=== PATIENT | female | born 1960 | race Caucasian/White ===

== ENCOUNTER 2016-05-24 04:51 | Inpatient (IN) | payer OTHER ==
[~2016-05-24] VITALS: Ht 165.1 cm; Wt 93.2 kg
[~2016-05-24 04:51] MED LIST: ALBINS NEB; ASPCH81X PO; CALCTAB7 PO; CYAN100020 PO; DAPT500I IV; DEXT1TAB50 PO; FERR1TAB13 PO; FLUT0.0529 NAE; FLV1 PO; FSMD/70 PO; INSUINJ14 SC; LCTX PO; LPR25 PO; MAGN1CAP2 PO; MULTTAB58 PO; OXGN; PANT1TAB48 PO; PRED10TA PO; SYMIN160 INH
[2016-05-24] MEDS ORDERED: ONDANSETRON INJ 2 MG/ML 2 ML VIAL IV STA (05:05)
[2016-05-24] MEDS ORDERED: SODIUM CHLORIDE 0.9% 1000ML 1,000 ML IV STA (05:05)
[2016-05-24] MEDS ORDERED: MoRPHine SULFATE 10 MG/ML CARP/VIAL IV STA (05:05)
--- NOTE | 2016-05-24 05:08 | EMERGENCY ROOM VISIT NOTE ---
History Report prepared by Alvaro: Chaz Kaur Under the Supervision of: Dr. Juan A Greer M.D. First contact with patient: 04:58 Chief Complaint: ABDOMINAL PAIN Stated Complaint: LOW GRADE FEVER, TROUBLE BREATHING, PAIN LWR R ABD Nursing Triage Summary: Patient c/o RLQ abdominal pain that began yesterday. Associates nausea. History of Present Illness The patient is a 55 year old female who presents to the Emergency Room with complaints of right sided abdominal pain that began 1 week ago. She rates her pain an 8/10 in severity. The patient states that she has been feeling "lousy" since then. She notes that her lungs have been doing relatively well. She has been experiencing some mild fevers along with the abdominal pain. She takes Prednisone 10 mg PO everyday. Her pain worsens with movement. She is not taking anything for the pain. She denies any rash and urinary symptoms. She has a past medical history of a cholecystectomy and hysterectomy. Source of History: patient Onset: 1 week ago Position: abdomen (RLQ) Symptom Intensity: 8/10 Quality: sharp Timing: constant Modifying Factors (Worsening): movement Associated Symptoms: + fevers, No rash, No urinary symptoms Review of Systems See HPI for pertinent positives & negatives. A total of 10 systems reviewed and were otherwise negative. 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 (16) Tachycardia Surgical Problems: (1) H/O atrial septal defect repair (2) H/O: hysterectomy (3) History of hysterectomy (4) History of myringotomy (5) Hx of appendectomy (6) Hx of cholecystectomy (7) Hx of tympanostomy tubes (8) S/P bronchoscopy (9) S/P sinus surgery (10) S/P tonsillectomy and adenoidectomy Family History Cancer Diabetes mellitus Gallbladder disease Heart disease Hypertension Kidney disease Kidney stones Lung disease Social History Smoking Status: Never Smoker Smokeless Tobacco Use: No Alcohol Use: none Drug Use: none Marital Status: single Current/Historical Medications Scheduled Albuterol Sulf (Albuterol Sulfate), 3 ML NEB DAILY Alendronate/Cholecalciferol (Fosamax+D 70MG/2800 Iu), 1 TABLET PO WK Aspirin (Aspirin Chewable), 81 MG PO QAM Calcium Carbonate-Vitamin D W/ (Caltrate 600 Plus), 1 TAB PO BID Cyanocobalamin (Vitamin B12), 1,000 MCG PO DAILY Ferrous Sulfate (Ferrous Sulfate), 325 MG PO DAILY Fluticasone Propionate (Nasal) (Flonase Allergy Relief), 2 SPRY ESPERANZA QAM Folic Acid (Folic Acid), 1 TAB PO QAM Insulin Aspart (Novolog Penfill), SQ AC Magnesium Oxide (Mg Supplement (Magnesium), 400 MG PO DAILY Metoprolol Tartrate (Lopressor), 50 MG PO BID Multiple Vitamin (Multivitamin), 1 TAB PO QAM Oxygen (Oxygen), 4 LITERS NA DAILY Pantoprazole (Protonix), 40 MG PO QAM Prednisone Tab (Prednisone), 10 MG PO DAILY Scheduled PRN Dextromethorphan-Guaifenesin (Mucinex Dm Maximum Streng), 1 TAB PO BID PRN for Nasal Congestion Allergies Coded Allergies: Albuterol (Verified Allergy, Mild, CHEST PAIN, 02/23/16) TOLERATE LEVALBUTEROL 04/2015 Physical Exam Vital Signs Date Time Temp Pulse Resp B/P Pulse Ox O2 Delivery O2 Flow Rate FiO2 05/24/16 07:26 83 18 110/75 94 Nasal Cannula 3.0 05/24/16 06:31 91 22 158/60 94 Nasal Cannula 3.0 05/24/16 05:58 94 18 124/88 94 Nasal Cannula 3.0 05/24/16 04:56 37.0 110 18 136/78 93 Room Air 3.0 Physical Exam GENERAL: Patient is uncomfortable appearing and in moderate acute distress. HEENT: No acute trauma, normocephalic atraumatic, mucous membranes moist, no nasal congestion, no scleral icterus. NECK: No stridor, no adenopathy, no meningismus, trachea is midline. LUNGS: Diffuse mild wheezing. Mild dyspnea (she states this is chronic). HEART: Mildly tachycardic and normal rhythm. No murmurs, rubs, gallops appreciated. ABDOMEN: Soft, tenderness to palpation over the RLQ, bowel sounds positive, no masses appreciated, no peritonitis. BACK: No midline tenderness, no CVA tenderness EXTREMITIES: Normal motion all extremities, no cyanosis, no edema. NEUROLOGIC: Alert and oriented, no acute motor or sensory deficits, no focal weakness, cranial nerves grossly intact. SKIN: No rash, no jaundice, no diaphoresis. Medical Decision & Procedures ER Provider Diagnostic Interpretation: Radiology results are stated below per my review and radiologist interpretation: 1 View Portable Chest X-Ray: Diffuse interstitial lung disease similar to previous lung x-rays, no acute lung infiltrate or effusion noted, cardiac border similar to previous. Medi port in right upper chest and sternotomy wires. Per fl CT ABDOMEN & PELVIS: Tree-in-bud opacities are seen within the lower lungs with bronchiectasis within the visualized right middle love and lingula. Findings likely represent an inflammatory/infection process to include MAURICIO. The gallbladder is surgically absent. Low attenuation of the liver suggesting hepatic steatosis. The spleen, pancreas, and adrenal glands are unremarkable. Probable simple cysts within both kidneys. No hydronephrosis. The uterus is surgically absent. No adnexal masses. The appendix is unremarkable. Noninflamed colonic diverticulosis. No free fluid. No free air. No acute osseous abnormality. Radiologist: Josef Abel MD Laboratory Results Test 05/24/16 05:20 05/24/16 05:28 05/24/16 05:34 05/24/16 06:37 Immature Granulocyte % (Auto) 0.3 % White Blood Count 16.42 K/uL (4.8-10.8) Red Blood Count 3.97 M/uL (4.2-5.4) Hemoglobin 11.6 g/dL (12.0-16.0) Hematocrit 34.6 % (37-47) Mean Corpuscular Volume 87.2 fL (80-100) Mean Corpuscular Hemoglobin 29.2 pg (25-34) Mean Corpuscular Hemoglobin Concent 33.5 g/dl (32-36) Platelet Count 251 K/uL (130-400) Mean Platelet Volume 9.4 fL (7.4-10.4) Neutrophils (%) (Auto) 85.3 % Lymphocytes (%) (Auto) 9.9 % Monocytes (%) (Auto) 3.7 % Eosinophils (%) (Auto) 0.7 % Basophils (%) (Auto) 0.1 % Neutrophils # (Auto) 14.01 K/uL (1.4-6.5) Lymphocytes # (Auto) 1.62 K/uL (1.2-3.4) Monocytes # (Auto) 0.61 K/uL (0.11-0.59) Eosinophils # (Auto) 0.11 K/uL (0-0.5) Basophils # (Auto) 0.02 K/uL (0-0.2) Immature Granulocyte # (Auto) 0.05 K/uL (0.00-0.02) Magnesium Level 1.9 mg/dl (1.8-2.4) Total Bilirubin 0.9 mg/dl (0.2-1) Direct Bilirubin 0.2 mg/dl (0-0.2) Aspartate Amino Transf (AST/SGOT) 17 U/L (15-37) Alanine Aminotransferase (ALT/SGPT) 31 U/L (12-78) Alkaline Phosphatase 70 U/L (45-117) Troponin I < 0.015 ng/ml (0-0.045) Total Protein 8.2 gm/dl (6.4-8.2) Albumin 3.3 gm/dl (3.4-5.0) Lipase 196 U/L (73-393) Bedside Hemoglobin 13.3 g/dl (12.0-16.0) Bedside Hematocrit 39 % (37-47) Bedside Sodium 133 mEq/L (135-144) Bedside Potassium 4.4 mEq/L (3.3-5.0) Bedside Chloride 96 mEq/L (101-112) Bedside Total CO2 26 mEq/l (24-31) Bedside Blood Urea Nitrogen 13 mg/dl (7-18) Bedside Creatinine 0.7 mg/dl (0.6-1.3) Bedside Glucose (other) 292 mg/dl (70-99) Bedside Ionized Calcium (Dwayne) 1.29 mmol/l (1.12-1.32) Bedside Lactic Acid Venous 2.08 mmol/L (0.90-1.70) Urine Color YELLOW Urine Appearance CLEAR (CLEAR) Urine pH 5.5 (4.5-7.5) Urine Specific [place] 1.010 (1.000-1.030) Urine Protein NEG (NEG) Urine Glucose (UA) NEG (NEG) Urine Ketones NEG (NEG) Urine Occult Blood TRACE (NEG) Urine Nitrite NEG (NEG) Urine Bilirubin NEG (NEG) Urine Urobilinogen NEG (NEG) Urine Leukocyte Esterase NEG (NEG) Urine RBC 0-4 /hpf (0-4) Urine WBC 1-5 /hpf (0-5) Urine Epithelial Cells >30 /lpf (0-5) Urine Bacteria NEG (NEG) Urine Hyaline Casts 5-10 /lpf (0-5) Urine Mucus PRESENT (NONE PRSENT) Laboratory results as reviewed by me. Medications Administered Medications (Trade) Dose Ordered Sig/Man Route Start Time Stop Time Status Last Admin Dose Admin Morphine Sulfate (MoRPHine SULFATE INJ) 6 mg NOW STAT IV 05/24/16 05:05 05/24/16 05:08 DC 05/24/16 05:32 6 MG Ondansetron HCl 4 mg 4 mg NOW STAT IV 05/24/16 05:05 05/24/16 05:08 DC 05/24/16 05:32 4 MG Sodium Chloride 1,000 ml @ 75 mls/hr [id number] STAT IV 05/24/16 05:05 05/24/16 09:24 DC 05/24/16 05:33 75 MLS/HR Sodium Chloride 500 ml @ 999 mls/hr Q31M STAT IV 05/24/16 05:46 05/24/16 06:16 DC 05/24/16 05:46 999 MLS/HR Vancomycin HCl/ Sodium Chloride (Vancomycin Inj/ Nss 500ml) 530 ml @ 200 mls/hr ONE STAT IV 05/24/16 06:19 05/24/16 08:57 DC 05/24/16 07:26 200 MLS/HR Piperacillin Sod/ Tazobactam Sod (Zosyn Iv) 4.5 gm NOW STAT IV 05/24/16 06:19 05/24/16 06:20 DC 05/24/16 06:29 4.5 GM ED Course 0458: The patient was evaluated in room A10. A complete history and physical exam was performed. 0505: Sodium Chloride 1000 ml @ 75 mls/hr IV, Zofran Inj 4 mg IV, Morphine Sulfate 6 mg IV 0546: Sodium Chloride 500 ml @ 999 mls/hr IV 0610: The patient is feeling better at this time. 0619: Zosyn Iv 4.5 gm IV, Vancomycin HCl 1,500 mg/Sodium Chloride 530 ml @ 200 mls/hr IV 0630: Upon reevaluation, the patient is resting. Discussed results and treatment plan with the patient. She verbalized understanding and agreement with the treatment plan. The patient will be evaluated by Dr. Ritesh Grimes for further management. Medical Decision Differential: Appendicitis, , MSK, Diverticulitis, UTI, Renal Colic, Bowel Obstruction, Aortic Pathology, amongst other pathologies entertained. 55 yr old female with chronic lung disease on NC and prednisone, DMII, HTN, immunodeficiency on monthly IVIG. She has multiple previous admissions for lung disease though today main issue is fever, fatigue and RLQ pain associated with nausea. Quite TTP on exam in RLQ thus felt with her history CT abdo/pelv warranted. Labs consistent with acute infection, and possibly early sepsis ( though good BP here). Given IV fluids, along with pain/nausea meds with vast improvement in discomfort. She is stable though continues to have RLQ TTP. No respiratory distress and lung exam is not very much remarkable. CXR similar to previous imaging. She does have port which just 2 months ago was replaced after line sepsis. CT has normal appendix, however there does appear to be bilateral lower lobe infiltrates which given fevers, wbc elevation, lactic acidosis will need to be treated aggressively with abx. She furthermore is immunocompromised thus I do not feel outpatient treatment reasonable at this time. Was given fluid bolus, but with history and good vitals will hold on full 30ml/kg nss bolus to avoid risk fluid overload. Will bring in to hospitalist service for further evaluation. Consults Time Called: 623 Consulting Physician: Dr. Ritesh Grimes Returned Call: 0630 They will be evaluating the patient for further management. Impression Primary Impression: PNA (pneumonia) Additional Impressions: Sepsis Immunocompromised Scribe Attestation The scribe's documentation has been prepared under my direction and personally reviewed by me in its entirety. I confirm that the note above accurately reflects all work, treatment, procedures, and medical decision making performed by me. Departure Information Dispostion Being Evaluated By Surgeon Ivonne Rodríguez (PCP) Patient Instructions My [facility] Problem Qualifiers Primary Impression: PNA (pneumonia) Pneumonia type: due to unspecified organism Laterality: bilateral Lung location: lower lobe of lung Qualified Codes: J18.9 - Pneumonia, unspecified organism Additional Impressions: Sepsis Sepsis type: sepsis due to unspecified organism Qualified Codes: A41.9 - Sepsis, unspecified organism
[2016-05-24] MEDS ORDERED: OPTIRAY 320 IV PRN (05:15)
[2016-05-24 05:40] LABS: ISTAT CREATININE 0.7 mg/dl (0.6-1.3); ISTAT HEMOGLOBIN 13.3 g/dl (12.0-16.0); ISTAT IONIZED CALCIUM 1.29 mmol/l (1.12-1.32)
[2016-05-24 05:43] LABS: BASO % 0.1 %; BASO ABS # 0.02 K/uL (0-0.2); COMPLETE YES; EOS % 0.7 %; HEMATOCRIT 34.6 % (37-47); IG% 0.3 %; LYMPH % 9.9 %; LYMPH ABS # 1.62 K/uL (1.2-3.4); MEAN CELL VOLUME 87.2 fL (80-100); MEAN CORPUSCULAR HEMOGLOBIN 29.2 pg (25-34); MEAN CORPUSCULAR HGB CONC 33.5 g/dl (32-36); MEAN PLATELET VOLUME 9.4 fL (7.4-10.4); MONO % 3.7 %; NEUT % 85.3 %; PLATELET COUNT 251 K/uL (130-400); RED BLOOD COUNT 3.97 M/uL (4.2-5.4); WHITE BLOOD COUNT 16.42 K/uL (4.8-10.8)
[2016-05-24] MEDS ORDERED: SODIUM CHLORIDE 0.9% 500ML 500 ML IV STA (05:46)
[2016-05-24 06:01] LABS: ALT/SGPT 31 U/L (12-78); AST/SGOT 17 U/L (15-37); BLOOD UREA NITROGEN 12 mg/dl (7-18); CALCIUM 10.2 mg/dl (8.5-10.1); CARBON DIOXIDE 28 mmol/L (21-32); CHLORIDE 95 mmol/L (98-107); CREATININE 0.95 mg/dl (0.60-1.20); GLUCOSE 262 mg/dl (70-99); MAGNESIUM 1.9 mg/dl (1.8-2.4); POTASSIUM 4.3 mmol/L (3.5-5.1); SODIUM 134 mmol/L (136-145)
[2016-05-24 06:06] LABS: ALKALINE PHOSPHATASE 70 U/L (45-117)
[2016-05-24] MEDS ORDERED: PIPERACILLIN/TAZOBACTAM 4.5 GM/100ML D5W IV STA (06:19)
[2016-05-24] MEDS ORDERED: VANCOMYCIN INJ 1,500 MG in SODIUM CHLORIDE 0.9% 500ML 500 ML IV STA (06:19)
[2016-05-24] MEDS ORDERED: FRRS300 PO (06:41)
[2016-05-24] MEDS ORDERED: FLUT0.15 NAE (06:41)
[2016-05-24] MEDS ORDERED: INSU1INJ2 SQ (06:42)
--- NOTE | 2016-05-24 06:46 | DIAGNOSTIC IMAGING REPORT ---
ABDOMEN AND PELVIS CT WITH IV CONTRAST CT DOSE: 755.50 mGy.cm HISTORY: Dyspnea RLQ abdominal pain, fever, nausea TECHNIQUE: Multiaxial CT images of the abdomen and pelvis were performed following the use of intravenous contrast. COMPARISON STUDY: None. FINDINGS: Lung bases are remarkable for bibasilar atelectatic as well as bronchiectatic change. Fatty infiltration of liver is noted. Prior cholecystectomy. Kidneys negative for hydronephrosis. Spleen is unremarkable. Pancreas is uniform. Bowel pattern overall is nonobstructive. Kidneys negative for hydronephrosis. Several small cortical cysts. Bowel pattern is nonobstructive. Bladder is midline. IMPRESSION: Bibasilar atelectatic and bronchiectatic change. Fatty infiltration of liver. Otherwise negative study status post cholecystectomy Electronically signed by: Santosh Diaz M.D. 05/24/2016 6:44 AM Dictated Date/Time: 05/24/2016 6:38 AM
--- NOTE | 2016-05-24 06:47 | DIAGNOSTIC IMAGING REPORT ---
CHEST ONE VIEW PORTABLE CLINICAL HISTORY: fever, cough dyspnea COMPARISON STUDY: 02/24/2016 FINDINGS: Interstitial parenchymal infiltrative change bilaterally. Central catheter is in superior vena cava. Median sternotomy. Diaphragms are smooth. IMPRESSION: Interval development of bilateral parenchymal infiltrative change versus nonspecific interstitial pulmonary edema Electronically signed by: Santosh Diaz M.D. 05/24/2016 6:46 AM Dictated Date/Time: 05/24/2016 6:45 AM
[2016-05-24 06:50] LABS: MANUAL MICROSCOPIC REQUIRED? YES; URINE APPEARANCE CLEAR (CLEAR); URINE BILIRUBIN NEG (NEG); URINE COLOR YELLOW; URINE NITRITE NEG (NEG); URINE PH 5.5 (4.5-7.5); UROBILINOGEN NEG (NEG)
[2016-05-24 07:00] LABS: REVIEW REQ? NO
[2016-05-24 07:11] LABS: URINE BACTERIA NEG (NEG); URINE MUCUS PRESENT (NONE PRSENT); URINE RBC 0-4 /hpf (0-4)
[2016-05-24 07:12] LABS: ZZUR CULT IF INDIC CLEAN CATCH NO
[2016-05-24] MEDS ORDERED: ACETAMINOPHEN 325 MG TAB PO PRN (08:00)
[2016-05-24] MEDS ORDERED: MAGNESIUM HYDROXIDE SUSP 30 ML UDC PO PRN (08:00)
[2016-05-24] MEDS ORDERED: DEXTROMETHORPHAN POLYMR COMPLX 60 MG/10 ML UDP PO PRN (08:00)
[2016-05-24] MEDS ORDERED: ONDANSETRON INJ 2 MG/ML 2 ML VIAL IV PRN (08:00)
[2016-05-24] MEDS ORDERED: POLYETHYLENE (MIRALAX) 17 GM PACK PO PRN (08:00)
[2016-05-24] MEDS ORDERED: SODIUM CHLORIDE 0.9% 1000ML 1,000 ML IV SCH (09:00)
[2016-05-24] MEDS ORDERED: DEXTROSE 50% 50 ML SYR IV PRN (09:00)
[2016-05-24] MEDS ORDERED: GLUCOSE 10 TABS/TUBE PO PRN (09:00)
[2016-05-24] MEDS ORDERED: GLUCAGON FOR INJ 1 MG VIAL SQ PRN (09:00)
[2016-05-24] MEDS ORDERED: GLUCOSE 40% GEL 15 GM TUBE PO PRN (09:00)
--- NOTE | 2016-05-24 09:26 | History and Physical ---
History & Physical Date & Time of Service: May 24, 2016 at 09:02 Chief Complaint: Low Grade Fever, Trouble Breathing, Pain Lwr R Abd Primary Care Physician: Ivonne Subramanian History of Present Illness Source: patient This is a 55 y/o female with PMHx of idiopathic bronchiectasis on chronic O2 and prednisone, steroid-induced DM 2, HTN, Depression and other problems as outlined below who presents to the ED c/o abdominal pain that began last night. Pt reports that she has been feeling "lousy" for the past week and last night she developed abdominal pain that she describes as 8/10 waxing and waning RLQ pain that does not radiate anywhere. Pain is better with sitting and worse with laying flat. Sxs are assoc with fatigue, low grade fever (99*F) and nausea. Pt has never had sxs like this before. She states her gallbladder was removed but she still has her appendix. Pt has h/o severe bronchiectasis with h/o multiple bronchoscopies. She is on chronic prednisone and 3L O2 at home. She feels that her respiratory status is stable. He chronic cough and exertional SOB is at her baseline. Pt follows with pulmonology, Dr. Lang, regularly. Pt currently lives alone with daughter living nearby. Pt denies chest pain, worsening SOB or cough, wheezing, vomiting, bowel or bladder issues, LE edema, calf pain, lightheadedness/dizziness. Pt denies In the ED, pt was tachycardic on arrival. She is saturating well on 3L O2. Pt is afebrile with leukocytosis>16k. POC lactic acid 2.06. CT abd/pelvis + bibasilar atelectasis. Pt is stable and will be admitted for further evaluation and treatment. Past Medical/Surgical History Medical Problems: (1) Anxiety Status: Chronic (2) Asthma Status: Chronic (3) Chronic respiratory failure Status: Chronic (4) COPD exacerbation Status: Resolved (5) Depression Status: Chronic (6) Diabetes Status: Chronic (7) Emphysema Status: Resolved (8) GERD (gastroesophageal reflux disease) Status: Chronic (9) Hyperlipidemia Status: Chronic (10) Idiopathic bronchiectasis Status: Chronic (11) Mild pulmonary hypertension Status: Chronic (12) BILL (obstructive sleep apnea) Status: Chronic (13) Oxygen dependent Permanent Comment: 2L Status: Chronic (14) Pneumonia Status: Resolved (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 Status: Chronic (16) Tachycardia Status: Chronic Surgical Problems: (1) H/O atrial septal defect repair Status: Resolved (2) H/O: hysterectomy Status: Resolved (3) History of hysterectomy Status: Resolved (4) History of myringotomy Status: Resolved (5) Hx of appendectomy Status: Resolved (6) Hx of cholecystectomy Status: Resolved (7) Hx of tympanostomy tubes Status: Resolved (8) S/P bronchoscopy Status: Resolved (9) S/P sinus surgery Status: Resolved (10) S/P tonsillectomy and adenoidectomy Status: Resolved Family History Cancer Diabetes mellitus Gallbladder disease Heart disease Hypertension Kidney disease Kidney stones Lung disease Social History Smoking Status: Never Smoker Smokeless Tobacco Use: No Alcohol Use: none Drug Use: none Marital Status: single Housing status: lives alone Immunizations History of Influenza Vaccine: Yes Influenza Vaccine Date: Mar 14, 2015 History of Tetanus Vaccine?: Yes Tetanus Immunization Date: Jun 16, 2010 History of Pneumococcal: Yes Pneumococcal Date: Sep 22, 2010 History of Hepatitis B Vaccine: Unknown Multi-Drug Resistant Organisms History of MDRO: No Allergies Coded Allergies: Albuterol (Verified Allergy, Mild, CHEST PAIN, 02/23/16) TOLERATE LEVALBUTEROL 04/2015 Home Medications Scheduled Albuterol Sulf (Albuterol Sulfate), 3 ML NEB DAILY Alendronate/Cholecalciferol (Fosamax+D 70MG/2800 Iu), 1 TABLET PO WK Aspirin (Aspirin Chewable), 81 MG PO QAM Calcium Carbonate-Vitamin D W/ (Caltrate 600 Plus), 1 TAB PO BID Cyanocobalamin (Vitamin B12), 1,000 MCG PO DAILY Ferrous Sulfate (Ferrous Sulfate), 325 MG PO DAILY Fluticasone Propionate (Nasal) (Flonase Allergy Relief), 2 SPRY ESPERANZA QAM Folic Acid (Folic Acid), 1 TAB PO QAM Insulin Aspart (Novolog Penfill), SQ AC Magnesium Oxide (Mg Supplement (Magnesium), 400 MG PO DAILY Metoprolol Tartrate (Lopressor), 50 MG PO BID Multiple Vitamin (Multivitamin), 1 TAB PO QAM Oxygen (Oxygen), 4 LITERS NA DAILY Pantoprazole (Protonix), 40 MG PO QAM Prednisone Tab (Prednisone), 10 MG PO DAILY Scheduled PRN Dextromethorphan-Guaifenesin (Mucinex Dm Maximum Streng), 1 TAB PO BID PRN for Nasal Congestion Review of Systems Constitutional: + fatigue, + fever (low grade), No chills, No sweats, No weakness Eyes: No worsening of vision ENT: No hearing loss Respiratory: + cough (at baseline ), + dyspnea on exertion (at baseline ), + shortness of breath, No dyspnea at rest, No wheezing Cardiovascular: No chest pain, No claudication, No edema Abdomen: + nausea, + pain, No constipation, No diarrhea, No vomiting Musculoskeletal: No calf pain, No swelling Genitourinary - Female: No dysuria, No hematuria Neurologic: No weakness Psychiatric: No depression symptoms Endocrine: + fatigue Hematologic / Lymphatic: No abnormal bleeding/bruising Integumentary: No new/changing skin lesions Physical Exam Vital Signs Date Time Temp Pulse Resp B/P Pulse Ox O2 Delivery O2 Flow Rate FiO2 05/24/16 07:26 83 18 110/75 94 Nasal Cannula 3.0 05/24/16 06:31 91 22 158/60 94 Nasal Cannula 3.0 05/24/16 05:58 94 18 124/88 94 Nasal Cannula 3.0 05/24/16 04:56 37.0 110 18 136/78 93 Room Air 3.0 General Appearance: WD/WN, no apparent distress, + pertinent finding (Pt is laying in bed with daughter at bedside ) Head: normocephalic, atraumatic Eyes: normal inspection ENT: hearing grossly normal Neck: supple Respiratory/Chest: chest non-tender, lungs clear, normal breath sounds, no respiratory distress, + pertinent finding (no wheezing or crackles noted) Cardiovascular: regular rate, rhythm, no edema, no murmur Abdomen/GI: normal bowel sounds, soft, + tenderness (RLQ) Back: normal inspection Extremities/Musculoskelatal: normal inspection, no calf tenderness, no pedal edema Neurologic/Psych: alert, normal mood/affect, oriented x 3 Skin: normal color, warm/dry Diagnostics Laboratory Results Results Past 24 Hours Test 05/24/16 05:20 05/24/16 05:28 05/24/16 05:34 05/24/16 06:37 Range/Units White Blood Count 16.42 4.8-10.8 K/uL Red Blood Count 3.97 4.2-5.4 M/uL Hemoglobin 11.6 12.0-16.0 g/dL Hematocrit 34.6 37-47 % Mean Corpuscular Volume 87.2 80-100 fL Mean Corpuscular Hemoglobin 29.2 25-34 pg Mean Corpuscular Hemoglobin Concent 33.5 32-36 g/dl Platelet Count 251 130-400 K/uL Mean Platelet Volume 9.4 7.4-10.4 fL Neutrophils (%) (Auto) 85.3 % Lymphocytes (%) (Auto) 9.9 % Monocytes (%) (Auto) 3.7 % Eosinophils (%) (Auto) 0.7 % Basophils (%) (Auto) 0.1 % Neutrophils # (Auto) 14.01 1.4-6.5 K/uL Lymphocytes # (Auto) 1.62 1.2-3.4 K/uL Monocytes # (Auto) 0.61 0.11-0.59 K/uL Eosinophils # (Auto) 0.11 0-0.5 K/uL Basophils # (Auto) 0.02 0-0.2 K/uL RDW Standard Deviation 44.9 36.4-46.3 fL RDW Coefficient of Variation 14.1 11.5-14.5 % Immature Granulocyte % (Auto) 0.3 % Immature Granulocyte # (Auto) 0.05 0.00-0.02 K/uL Sodium Level 134 136-145 mmol/L Potassium Level 4.3 3.5-5.1 mmol/L Chloride Level 95 98-107 mmol/L Carbon Dioxide Level 28 21-32 mmol/L Anion Gap 11.0 16.0 16-25 mmol/L Blood Urea Nitrogen 12 7-18 mg/dl Creatinine 0.95 0.60-1.20 mg/dl Est Creatinine Clear Calc Drug Dose 77.2 ml/min Estimated GFR () 78.7 Estimated GFR (Non- 67.9 BUN/Creatinine Ratio 13.0 10-20 Random Glucose 262 70-99 mg/dl Calcium Level 10.2 8.5-10.1 mg/dl Magnesium Level 1.9 1.8-2.4 mg/dl Total Bilirubin 0.9 0.2-1 mg/dl Direct Bilirubin 0.2 0-0.2 mg/dl Aspartate Amino Transf (AST/SGOT) 17 15-37 U/L Alanine Aminotransferase (ALT/SGPT) 31 12-78 U/L Alkaline Phosphatase 70 45-117 U/L Troponin I < 0.015 0-0.045 ng/ml Total Protein 8.2 6.4-8.2 gm/dl Albumin 3.3 3.4-5.0 gm/dl Lipase 196 73-393 U/L Bedside Hemoglobin 13.3 12.0-16.0 g/dl Bedside Hematocrit 39 37-47 % Bedside Sodium 133 135-144 mEq/L Bedside Potassium 4.4 3.3-5.0 mEq/L Bedside Chloride 96 101-112 mEq/L Bedside Total CO2 26 24-31 mEq/l Bedside Blood Urea Nitrogen 13 7-18 mg/dl Bedside Creatinine 0.7 0.6-1.3 mg/dl Bedside Glucose (other) 292 70-99 mg/dl Bedside Ionized Calcium (Dwayne) 1.29 1.12-1.32 mmol/l Bedside Lactic Acid Venous 2.08 0.90-1.70 mmol/L Urine Color YELLOW Urine Appearance CLEAR CLEAR Urine pH 5.5 4.5-7.5 Urine Specific [place] 1.010 1.000-1.030 Urine Protein NEG NEG Urine Glucose (UA) NEG NEG Urine Ketones NEG NEG Urine Occult Blood TRACE NEG Urine Nitrite NEG NEG Urine Bilirubin NEG NEG Urine Urobilinogen NEG NEG Urine Leukocyte Esterase NEG NEG Urine RBC 0-4 0-4 /hpf Urine WBC 1-5 0-5 /hpf Urine Epithelial Cells >30 0-5 /lpf Urine Bacteria NEG NEG Urine Hyaline Casts 5-10 0-5 /lpf Urine Mucus PRESENT NONE PRSENT Microbiology Results 05/24/16 Blood Culture, Received Pending 05/24/16 Blood Culture, Received Pending Diagnostic Radiology ABD/PELVIS CT IMPRESSION: Bibasilar atelectatic and bronchiectatic change. Fatty infiltration of liver. Otherwise negative study status post cholecystectomy CXR IMPRESSION: Interval development of bilateral parenchymal infiltrative change versus nonspecific interstitial pulmonary edema Impression Assessment and Plan RLQ ABDOMINAL PAIN; UNCLEAR ETIOLOGY pt presented with RLQ abdominal pain assoc with low grade fever and nausea -admit to med/surg -pt is afebrile with leukocytosis>16k; POC lactic acid 2.06 -CT abd/pelvis: no evidence intra-abdominal pathology; appendix not evaluated -obtain RLQ US for further evaluation -LFTs WNL -start IVF and empiric Levaquin -analgesics PRN pain -monitor LEUKOCYTOSIS -pt is afebrile and mildly tachycardic with leukocytosis>16k; POC lactic acid 2.06 -unclear source of infection; ? intra-abdominal vs. pulmonary source -CXR + atelectasis; no obvious consolidation -UA negative -blood cultures-pending -re-check lactic acid within 6 hrs -start IVF and empiric Levaquin -monitor HYPONATREMIA -Na+ 134 -gentle IVF -monitor with prp daily CHRONIC HYPOXIC RESPIRATORY FAILURE/ BRONCHIECTASIS -h/o chronic bronchiectasis (on chronic prednisone and 3L O2 at home). respiratory status is stable -saturating well on 3L O2 -cont PO Prednisone and supplemental O2 -continue to monitor STEROID-INDUCED DIABETES -last A1C 7.0; repeat in AM -start ISS -monitor BSG AC HS GERD -cont PPI HTN -BP stable -cont metoprolol -monitor DVT PROPHYLAXIS -subq heparin CODE STATUS -FULL CODE status DISPO -Pt was seen in collaboration with Dr. Whitney. Please see her addendum for further details. Thanks! VTE Prophylaxis VTE Risk Assessment Done? Y/N: Yes Risk Level: Low
[2016-05-24] MEDS ORDERED: MoRPHine SULFATE 4 MG/ML 1 ML CARP\\VIAL IV PRN (09:30)
[2016-05-24 09:58] VITALS: BP 126/82; PULSE 74; TEMP 36.4; O2SAT 96
[2016-05-24] MEDS: CALCIUM 600MG + VIT D 400 IU TAB PO SCH ×2 (10:04→21:07)
[2016-05-24] MEDS: MULTIVITAMIN TAB PO SCH (10:04)
[2016-05-24] MEDS: METOPROLOL TARTRATE 50 MG TAB PO SCH ×2 (10:05→21:07)
[2016-05-24] MEDS: PANTOprazole SOD 40 MG TAB PO SCH (10:05)
[2016-05-24] MEDS: MAGNESIUM OXIDE 400 MG TAB PO SCH (10:06)
[2016-05-24] MEDS: ASPIRIN 81 MG ECTAB PO SCH (10:06)
[2016-05-24] MEDS: FERROUS SULFATE 325 MG TAB PO SCH (10:07)
[2016-05-24] MEDS: CYANOCOBALAMIN 500 MCG TAB (VIT B-12) PO SCH (10:08)
[2016-05-24] MEDS: LEVOFLOXACIN / D5W 500 MG in PREMIXED IN D5W 100 ML IV SCH (10:09)
[2016-05-24 10:37] LABS: PARTIAL THROMBOPLASTIN RATIO 1.2; PROTHROMBIN TIME (PATIENT) 11.1 SECONDS (9.0-12.0)
[2016-05-24] MEDS: INSULIN ASPART 100 UNITS/ML 3 ML PEN SC SCH ×3 (12:04→21:09)
[2016-05-24 12:47] VITALS: Ht 165.1 cm; Wt 93.2 kg
--- NOTE | 2016-05-24 14:03 | DIAGNOSTIC IMAGING REPORT ---
APPENDIX ULTRASOUND HISTORY: Right lower quadrant pain. COMPARISON: CT of the abdomen and pelvis May 24, 2016. FINDINGS: The appendix is not visualized by sonography. IMPRESSION: Nonvisualization of the appendix. Electronically signed by: Norberto Reeves M.D. 05/24/2016 2:01 PM Dictated Date/Time: 05/24/2016 2:00 PM
[2016-05-24 14:06] VITALS: BP 140/80; PULSE 70; TEMP 36.3; O2SAT 94
[2016-05-24] MEDS: HEPARIN SOD 5000 UNIT/0.5 ML CARP SQ SCH ×2 (14:12→21:09)
--- NOTE | 2016-05-24 14:28 | Progress Note ---
Progress Note Patient was seen and evaluated with ZACARIAS Jean Baptiste. Patient comes in with c/o one day of RLQ abdominal pain, sharp, 7/10 intensity, non radiating, constant, with associated symptom of nausea, but no vomiting, diarrhea. Temp 99 F outpatient, but afebrile here. Does have chronic cough with no significant worsening, no chest pain, no worsening of SOB. No prior episodes of similar pain. On my evaluation, she is doing better, RLQ improved after pain medications. On exam, AAOX3, not in distress, looks older than stated age, Lungs- clear, no rhonchi wheezing, Heart- S1, S2 normal, Abdomen= soft, mild RLQ tenderness, BS present, no rigidity, Ext- no edema. ASSESSMENT/PLAN: RLQ ABDOMINAL PAIN Unclear etiology. Need to rule out acute inflammatory/infectious process -On basis of H & P, Imaging- CT scan abd/pelvis with IV contrast, CXR- no acute inflammatory/infectious process noted. Pneumonia causing referred pain was considered given abnormal CXR but no clinical signs of pneumonia and pain in RLQ not upper, so unlikely. Gastroenteritis ? -Afebrile, leucocytosis > 16k, Lactic acid 2.06--> down to 1.4 -IV fluids, Clear liquid -Work up- CT scan abd/pelvis with IV contrast - no evidence intra-abdominal pathology, LFTs - normal, Lipase normal. Ordered procalcitonin, ESR in AM to see if any infection present LEUKOCYTOSIS -Pt is afebrile and mildly tachycardic with leukocytosis>16k; POC lactic acid 2.06 -So far - no source identified. Pneumonia was considered but less likely as mentioned above -Will start on levofloxacin which would cover for abdominal/pulmonary source x 24 hours empirically. If no source of infection, remains afebrile with negative cultures, consider discontinuation of antibiotics -F/up blood cultures, UA- negative CHRONIC HYPOXIC RESPIRATORY FAILURE/ BRONCHIECTASIS -H/o chronic bronchiectasis (on chronic prednisone and 3L O2 at home). respiratory status is stable -saturating well on 3L O2 -cont PO chronic Prednisone and supplemental O2 -continue to monitor STEROID-INDUCED DIABETES -last A1C 7.0; repeat in AM -start ISS -monitor BSG AC HS GERD -cont PPI HTN -BP stable -cont metoprolol -monitor DVT PROPHYLAXIS -subq heparin CODE STATUS -FULL CODE status DISPO -Expected discharge home when stable
[2016-05-24 23:11] VITALS: BP 119/80; PULSE 75; TEMP 36.8; O2SAT 98
[2016-05-25 06:10] LABS: HEMATOCRIT 30.4 % (37-47); MEAN CELL VOLUME 87.9 fL (80-100); MEAN CORPUSCULAR HEMOGLOBIN 28.9 pg (25-34); MEAN CORPUSCULAR HGB CONC 32.9 g/dl (32-36); MEAN PLATELET VOLUME 9.3 fL (7.4-10.4); PLATELET COUNT 184 K/uL (130-400); RED BLOOD COUNT 3.46 M/uL (4.2-5.4); WHITE BLOOD COUNT 7.66 K/uL (4.8-10.8)
[2016-05-25] MEDS: HEPARIN SOD 5000 UNIT/0.5 ML CARP SQ SCH ×3 (06:20→20:53)
[2016-05-25 06:41] LABS: BUN/CREATININE RATIO 12.5 (10-20); CALCIUM 9.7 mg/dl (8.5-10.1); CREATININE 0.7 mg/dl (0.60-1.20); POTASSIUM 4.4 mmol/L (3.5-5.1)
[2016-05-25 07:12] LABS: ESTIMATED AVERAGE GLUCOSE 148 mg/dl; HA1C FLAG Normal (Normal)
[2016-05-25 07:38] VITALS: BP 115/74; PULSE 82; TEMP 36.8; O2SAT 95
[2016-05-25] MEDS: MAGNESIUM OXIDE 400 MG TAB PO SCH (08:32)
[2016-05-25] MEDS: MULTIVITAMIN TAB PO SCH (08:32)
[2016-05-25] MEDS: PANTOprazole SOD 40 MG TAB PO SCH (08:33)
[2016-05-25] MEDS: CALCIUM 600MG + VIT D 400 IU TAB PO SCH ×2 (08:33→20:49)
[2016-05-25] MEDS: METOPROLOL TARTRATE 50 MG TAB PO SCH ×2 (08:33→20:49)
[2016-05-25] MEDS: CYANOCOBALAMIN 500 MCG TAB (VIT B-12) PO SCH (08:34)
[2016-05-25] MEDS: ASPIRIN 81 MG ECTAB PO SCH (08:34)
[2016-05-25] MEDS: FERROUS SULFATE 325 MG TAB PO SCH (08:34)
[2016-05-25] MEDS: INSULIN ASPART 100 UNITS/ML 3 ML PEN SC SCH ×4 (08:42→20:53)
[2016-05-25] MEDS: LEVOFLOXACIN / D5W 500 MG in PREMIXED IN D5W 100 ML IV SCH (10:16)
[2016-05-25 14:45] VITALS: BP 143/87; PULSE 91; TEMP 36.7; O2SAT 94
--- NOTE | 2016-05-25 15:03 | Progress Note ---
Internal Med Progress Note Date of Service: May 25, 2016. Provider Documentation: SUBJECTIVE: Patient is seen and examined at bedside. States having nausea intermittently with food. Abd pain resolved. Denies any blood in stools or change in bowel habits. Also denies any chest pain, SOB at rest. OBJECTIVE: Vital Signs-as noted below Physical Exam: General Appearance:Moderately built and nourished, no apparent distress Head: normocephalic, Atraumatic Eyes: normal inspection, EOMI, PERRLA, Anicteric Neck: supple, no JVD, Trachea midline Respiratory/Chest: Decreased breath sounds, + creps b/l, No accessory muscle use Cardiovascular: S1, S2, NSR, No murmur Abdomen/GI:Soft, Non tender, Bowel sounds present, No guarding/rigidity/ organomegaly Extremities/Musculoskelatal:normal inspection, no edema Neurologic/Psych:AAOX3, grossly no focal neurological deficits Skin: normal color, warm Lab data as noted below. ASSESSMENT & PLAN: RLQ ABDOMINAL PAIN Improving, Tolerating diet Unclear etiology. Need to rule out acute inflammatory/infectious process CT abd/pelvis: No acute process Afebrile, leucocytosis resolved DC IV fluids Advance diet as tolerated LFTs - normal, Lipase, procalcitonin normal LEUKOCYTOSIS Afebrile currently leukocytosis>16k POA: currently resolved No obvious source of infection Continue levofloxacin for now FU cultures UA: negative CHRONIC HYPOXIC RESPIRATORY FAILURE/ BRONCHIECTASIS H/o chronic bronchiectasis: on chronic prednisone and 3L O2 at baseline Stable continue PO chronic Prednisone and supplemental O2 Monitor STEROID-INDUCED DIABETES A1C:6.8 Continue ISS monitor BSG AC HS GERD continue PPI HTN stable continue metoprolol DVT PROPHYLAXIS heparin sq CODE STATUS FULL CODE DISPOSITION: Plan to DC in next 48 hours if medically stable Vital Signs: Date Time Temp Pulse Resp B/P Pulse Ox O2 Delivery O2 Flow Rate FiO2 05/25/16 14:45 36.7 91 18 143/87 94 05/25/16 08:00 Nasal Cannula 3.0 05/25/16 07:38 36.8 82 20 115/74 95 3.0 05/25/16 00:00 Nasal Cannula 3.0 05/24/16 23:11 36.8 75 16 119/80 98 05/24/16 17:15 Nasal Cannula 3.0 Lab Results: Results Past 24 Hours Test 05/24/16 16:09 05/24/16 20:22 05/25/16 05:40 05/25/16 07:32 Range/Units Bedside Glucose 143 190 186 70-90 mg/dl White Blood Count 7.66 4.8-10.8 K/uL Red Blood Count 3.46 4.2-5.4 M/uL Hemoglobin 10.0 12.0-16.0 g/dL Hematocrit 30.4 37-47 % Mean Corpuscular Volume 87.9 80-100 fL Mean Corpuscular Hemoglobin 28.9 25-34 pg Mean Corpuscular Hemoglobin Concent 32.9 32-36 g/dl RDW Standard Deviation 44.1 36.4-46.3 fL RDW Coefficient of Variation 13.9 11.5-14.5 % Platelet Count 184 130-400 K/uL Mean Platelet Volume 9.3 7.4-10.4 fL Erythrocyte Sedimentation Rate 61 0-21 mm/hr Sodium Level 140 136-145 mmol/L Potassium Level 4.4 3.5-5.1 mmol/L Chloride Level 101 98-107 mmol/L Carbon Dioxide Level 32 21-32 mmol/L Anion Gap 7.0 3-11 mmol/L Blood Urea Nitrogen 9 7-18 mg/dl Creatinine 0.70 0.60-1.20 mg/dl Est Creatinine Clear Calc Drug Dose 103.7 ml/min Estimated GFR () 113.8 Estimated GFR (Non- 98.2 BUN/Creatinine Ratio 12.5 10-20 Random Glucose 160 70-99 mg/dl Estimated Average Glucose 148 mg/dl Hemoglobin A1c 6.8 4.5-5.6 % Calcium Level 9.7 8.5-10.1 mg/dl Procalcitonin 0.05 0-0.5 ng/mL Test 05/25/16 11:30 Range/Units Bedside Glucose 124 70-90 mg/dl
[2016-05-26] VITALS: BP 131/81; PULSE 80; TEMP 36.8; O2SAT 95
[2016-05-26 06:19] LABS: BASO % 0.4 %; BASO ABS # 0.03 K/uL (0-0.2); COMPLETE YES; EOS % 2.9 %; HEMATOCRIT 32.1 % (37-47); IG% 0.2 %; LYMPH % 16.7 %; LYMPH ABS # 1.38 K/uL (1.2-3.4); MEAN CELL VOLUME 88.7 fL (80-100); MEAN CORPUSCULAR HEMOGLOBIN 28.5 pg (25-34); MEAN CORPUSCULAR HGB CONC 32.1 g/dl (32-36); MONO % 6.9 %; NEUT % 72.9 %; PLATELET COUNT 208 K/uL (130-400); RED BLOOD COUNT 3.62 M/uL (4.2-5.4); WHITE BLOOD COUNT 8.24 K/uL (4.8-10.8)
[2016-05-26] MEDS: HEPARIN SOD 5000 UNIT/0.5 ML CARP SQ SCH ×2 (06:37→14:46)
[2016-05-26 07:00] LABS: BUN/CREATININE RATIO 16.9 (10-20); CALCIUM 9.2 mg/dl (8.5-10.1); CREATININE 0.76 mg/dl (0.60-1.20); POTASSIUM 3.7 mmol/L (3.5-5.1)
[2016-05-26 08:36] VITALS: O2SAT 95
[2016-05-26 08:37] VITALS: BP 126/70; PULSE 83; TEMP 36.9; O2SAT 95
[2016-05-26] MEDS: INSULIN ASPART 100 UNITS/ML 3 ML PEN SC SCH ×3 (09:07→17:11)
[2016-05-26] MEDS: MULTIVITAMIN TAB PO SCH (09:08)
[2016-05-26] MEDS: PANTOprazole SOD 40 MG TAB PO SCH (09:08)
[2016-05-26] MEDS: MAGNESIUM OXIDE 400 MG TAB PO SCH (09:09)
[2016-05-26] MEDS: FERROUS SULFATE 325 MG TAB PO SCH (09:09)
[2016-05-26] MEDS: CYANOCOBALAMIN 500 MCG TAB (VIT B-12) PO SCH (09:09)
[2016-05-26] MEDS: ASPIRIN 81 MG ECTAB PO SCH (09:09)
[2016-05-26] MEDS: METOPROLOL TARTRATE 50 MG TAB PO SCH (09:09)
[2016-05-26] MEDS: CALCIUM 600MG + VIT D 400 IU TAB PO SCH (09:09)
[2016-05-26] MEDS: LEVOFLOXACIN / D5W 500 MG in PREMIXED IN D5W 100 ML IV SCH (10:01)
[2016-05-26 15:05] VITALS: BP 133/86; PULSE 86; TEMP 37.1; O2SAT 96
--- NOTE | 2016-05-26 16:15 | Progress Note ---
Internal Med Progress Note Date of Service: May 26, 2016. Provider Documentation: SUBJECTIVE: Patient is seen and examined at bedside. States nausea and Abd pain completely resolved. Denies any chest pain, SOB at rest. OBJECTIVE: Vital Signs-as noted below Physical Exam: General Appearance:Moderately built and nourished, no apparent distress Head: normocephalic, Atraumatic Eyes: normal inspection, EOMI, PERRLA, Anicteric Neck: supple, no JVD, Trachea midline Respiratory/Chest: Decreased breath sounds, CTA, No accessory muscle use Cardiovascular: S1, S2, NSR, No murmur Abdomen/GI:Soft, Non tender, Bowel sounds present, No guarding/rigidity/ organomegaly Extremities/Musculoskelatal:normal inspection, no edema Neurologic/Psych:AAOX3, grossly no focal neurological deficits Skin: normal color, warm Lab data as noted below. ASSESSMENT & PLAN: RLQ ABDOMINAL PAIN Resolved, Tolerates diet Unclear etiology. No signs of inflammatory/infectious process CT abd/pelvis: No acute process Afebrile, leucocytosis resolved DC IV fluids Tolerating diet LFTs - normal, Lipase, procalcitonin normal LEUKOCYTOSIS Afebrile, Resolved leukocytosis>16k POA: currently resolved No obvious source of infection Continue levofloxacin for now Blood cultures: No growth to date UA: negative CHRONIC HYPOXIC RESPIRATORY FAILURE/ BRONCHIECTASIS H/o chronic bronchiectasis: on chronic prednisone and 3L O2 at baseline Stable continue PO chronic Prednisone and supplemental O2 Monitor STEROID-INDUCED DIABETES A1C:6.8 Continue ISS monitor BSG AC HS GERD continue PPI HTN stable continue metoprolol DVT PROPHYLAXIS heparin sq CODE STATUS FULL CODE DISPOSITION: Plan to DC today Vital Signs: Date Time Temp Pulse Resp B/P Pulse Ox O2 Delivery O2 Flow Rate FiO2 05/26/16 15:43 Nasal Cannula 3.0 05/26/16 15:05 37.1 86 16 133/86 96 Nasal Cannula 3.0 Humidified Air 05/26/16 08:37 36.9 83 16 126/70 95 Nasal Cannula 2.0 05/26/16 08:36 95 Nasal Cannula 3.0 Humidified Oxygen 05/26/16 08:00 Nasal Cannula 3.0 05/26/16 00:00 36.8 80 20 131/81 95 3.0 05/26/16 00:00 95 Nasal Cannula 3.0 Lab Results: Results Past 24 Hours Test 2/14/17 16:39 05/25/16 20:24 05/26/16 05:39 05/26/16 08:08 Range/Units Bedside Glucose 154 203 103 70-90 mg/dl White Blood Count 8.24 4.8-10.8 K/uL Red Blood Count 3.62 4.2-5.4 M/uL Hemoglobin 10.3 12.0-16.0 g/dL Hematocrit 32.1 37-47 % Mean Corpuscular Volume 88.7 80-100 fL Mean Corpuscular Hemoglobin 28.5 25-34 pg Mean Corpuscular Hemoglobin Concent 32.1 32-36 g/dl Platelet Count 208 130-400 K/uL Mean Platelet Volume 10.0 7.4-10.4 fL Neutrophils (%) (Auto) 72.9 % Lymphocytes (%) (Auto) 16.7 % Monocytes (%) (Auto) 6.9 % Eosinophils (%) (Auto) 2.9 % Basophils (%) (Auto) 0.4 % Neutrophils # (Auto) 6.00 1.4-6.5 K/uL Lymphocytes # (Auto) 1.38 1.2-3.4 K/uL Monocytes # (Auto) 0.57 0.11-0.59 K/uL Eosinophils # (Auto) 0.24 0-0.5 K/uL Basophils # (Auto) 0.03 0-0.2 K/uL RDW Standard Deviation 44.8 36.4-46.3 fL RDW Coefficient of Variation 13.8 11.5-14.5 % Immature Granulocyte % (Auto) 0.2 % Immature Granulocyte # (Auto) 0.02 0.00-0.02 K/uL Sodium Level 139 136-145 mmol/L Potassium Level 3.7 3.5-5.1 mmol/L Chloride Level 98 98-107 mmol/L Carbon Dioxide Level 35 21-32 mmol/L Anion Gap 6.0 3-11 mmol/L Blood Urea Nitrogen 13 7-18 mg/dl Creatinine 0.76 0.60-1.20 mg/dl Est Creatinine Clear Calc Drug Dose 95.5 ml/min Estimated GFR () 103.1 Estimated GFR (Non- 88.9 BUN/Creatinine Ratio 16.9 10-20 Random Glucose 107 70-99 mg/dl Calcium Level 9.2 8.5-10.1 mg/dl Test 05/26/16 11:22 Range/Units Bedside Glucose 189 70-90 mg/dl
--- NOTE | 2016-05-26 16:34 | Discharge Summary ---
Discharge Summary Admission Date: May 24, 2016 at 07:59 Discharge Date: May 26, 2016 Discharge Disposition: Home Principal Diagnosis: RLQ ABDOMINAL PAIN: Resolved. Unclear etiology Procedures: CXR: : Interval development of bilateral parenchymal infiltrative change versus nonspecific interstitial pulmonary edema CT ABD: Bibasilar atelectatic and bronchiectatic change. Fatty infiltration of liver. Otherwise negative study status post cholecystectomy Appendix USD: Nonvisualization of the appendix. Consultations: None Pending Studies/Follow-Up: Follow up with your Primary care physician Marilynn ELDER on May 31 2016 at 10: 40AM Medication Reconciliation Continued Medications: Albuterol Sulf (Albuterol Sulfate) 2.5 Mg/3 Ml Nebu 3 ML NEB DAILY USE SALT SOLUTION IN NEBULIZER Alendronate/Cholecalciferol (Fosamax+D 70MG/2800 Iu) 70 Mg Tab 1 TABLET PO WK TUESDAYS Aspirin (Aspirin Chewable) 81 Mg Chew 81 MG PO QAM, TAB Calcium Carbonate-Vitamin D W/ (Caltrate 600 Plus) 1 Tab Tab 1 TAB PO BID, TAB Cyanocobalamin (Vitamin B12) 1,000 Mcg Tab 1000 MCG PO DAILY Dextromethorphan-Guaifenesin (Mucinex Dm Maximum Streng) 1 Tab Tab 1 TAB PO BID PRN for Nasal Congestion Ferrous Sulfate (Ferrous Sulfate) 325 Mg Tab 325 MG PO DAILY Fluticasone Propionate (Nasal) (Flonase Allergy Relief) 50 Mcg/Act Spr 2 SPRY ESPERANZA QAM Folic Acid (Folic Acid) 1 Mg Tab 1 TAB PO QAM Insulin Aspart (Novolog Penfill) 100 Unit/Ml Inj SQ AC PER SLIDING SCALE Magnesium Oxide (Mg Supplement (Magnesium) 400 Mg Cap 400 MG PO DAILY Metoprolol Tartrate (Lopressor) 25 Mg Tab 50 MG PO BID, TAB Multiple Vitamin (Multivitamin) 1 Tab Tab 1 TAB PO QAM, TAB Oxygen (Oxygen) Gas 4 LITERS NA DAILY for AT ALL TIMES for 30 Days Pantoprazole (Protonix) 40 Mg Tab 40 MG PO QAM, TAB Prednisone Tab (Prednisone) 10 Mg Tab 10 MG PO DAILY, TAB Admission Information HPI (per Admitting provider): This is a 55 y/o female with PMHx of idiopathic bronchiectasis on chronic O2 and prednisone, steroid-induced DM 2, HTN, Depression and other problems as outlined below who presents to the ED c/o abdominal pain that began last night. Pt reports that she has been feeling "lousy" for the past week and last night she developed abdominal pain that she describes as 8/10 waxing and waning RLQ pain that does not radiate anywhere. Pain is better with sitting and worse with laying flat. Sxs are assoc with fatigue, low grade fever (99*F) and nausea. Pt has never had sxs like this before. She states her gallbladder was removed but she still has her appendix. Pt has h/o severe bronchiectasis with h/o multiple bronchoscopies. She is on chronic prednisone and 3L O2 at home. She feels that her respiratory status is stable. He chronic cough and exertional SOB is at her baseline. Pt follows with pulmonology, Dr. Lang, regularly. Pt currently lives alone with daughter living nearby. Pt denies chest pain, worsening SOB or cough, wheezing, vomiting, bowel or bladder issues, LE edema, calf pain, lightheadedness/dizziness. Pt denies In the ED, pt was tachycardic on arrival. She is saturating well on 3L O2. Pt is afebrile with leukocytosis>16k. POC lactic acid 2.06. CT abd/pelvis + bibasilar atelectasis. Pt is stable and will be admitted for further evaluation and treatment. Physical Exam (per Admitting): General Appearance: WD/WN, no apparent distress, + pertinent finding (Pt is laying in bed with daughter at bedside ) Head: normocephalic, atraumatic Eyes: normal inspection ENT: hearing grossly normal Neck: supple Respiratory/Chest: chest non-tender, lungs clear, normal breath sounds, no respiratory distress, + pertinent finding (no wheezing or crackles noted) Cardiovascular: regular rate, rhythm, no edema, no murmur Abdomen/GI: normal bowel sounds, soft, + tenderness (RLQ) Back: normal inspection Extremities/Musculoskelatal: normal inspection, no calf tenderness, no pedal edema Neurologic/Psych: alert, normal mood/affect, oriented x 3 Skin: normal color, warm/dry Hospital Course RLQ ABDOMINAL PAIN Resolved, Tolerates diet Unclear etiology. No signs of inflammatory/infectious process CT abd/pelvis: No acute process Afebrile, leucocytosis resolved DC IV fluids Tolerating diet LFTs - normal, Lipase, procalcitonin normal LEUKOCYTOSIS Afebrile, Resolved leukocytosis>16k POA: currently resolved No obvious source of infection DC levofloxacin Blood cultures: No growth to date UA: negative CHRONIC HYPOXIC RESPIRATORY FAILURE/ BRONCHIECTASIS H/o chronic bronchiectasis: on chronic prednisone and 3L O2 at baseline Stable continue PO chronic Prednisone and supplemental O2 Monitor STEROID-INDUCED DIABETES A1C:6.8 Continue ISS monitor BSG AC HS GERD continue PPI HTN stable continue metoprolol DVT PROPHYLAXIS heparin sq CODE STATUS FULL CODE DISPOSITION: Plan to DC today Total time spent on discharge = This includes examination of the patient, discharge planning, medication reconciliation, and communication with other providers. Discharge Instructions Discharge Instructions Admission Reason for Admission: Pneumonia, Sepsis Discharge Discharge Diagnosis / Problem: ABDOMINAL PAIN: Resolved, unclear etiology Discharge Goals Goal(s): Decrease discomfort, Improve function Activity Recommendations Activity Limitations: resume your previous activity Exercise/Sports Limitations: as tolerated . Instructions / Follow-Up Instructions / Follow-Up Follow up with your Primary care physician Marilynn ELDER on May 31 2016 at 10: 40AM Seek immediate medical attention if your symptoms reoccur or worsen Current Hospital Diet Patient's current hospital diet: Regular Diet Discharge Diet Recommended Diet: Regular Diet Pending Studies Studies pending at discharge: no Laboratory Results Hemoglobin A1c Test 05/25/16 05:40 Range/Units Estimated Average Glucose 148 mg/dl Hemoglobin A1c 6.8 H 4.5-5.6 % Medical Emergencies . Who to Call and When: Medical Emergencies: If at any time you feel your situation is an emergency, please call 911 immediately. . Non-Emergent Contact Non-Emergency issues call your: Primary Care Provider Call Non-Emergent contact if: you have a fever, your pain is not controlled, your pain is worsening, you have any medication questions . . "Provider Documentation" section prepared by Dany Rodriguez. VTE Core Measure Inpt VTE Proph given/why not?: Unfractionated heparin SQ
[2016-05-26 16:52] VITALS: BP 133/86; PULSE 86; TEMP 37.1; O2SAT 96
[2016-10-05] MEDS ORDERED: PRD10 PO (17:23)
[2016-10-05] MEDS ORDERED: MISCCAP80 PO (17:25)
[2016-10-05] MEDS ORDERED: AMOX1TAB43 PO (17:25)
[2016-11-02] MEDS ORDERED: METO50TA16 PO (09:08)
[2016-11-02] MEDS ORDERED: probiotic PO (09:09)
[2016-12-04] MEDS ORDERED: PRED10TA PO (12:50)
== END 2016-05-26 17:45 | disposition home or self-care (01) | DRG 392 ==
LOC: ENRESERVTM → ENRESERVDT → C.EDB 04:53 → C.MS2W 07:59
PROVIDERS: ADMIT Internal Medicine; ATTEND Internal Medicine
DX: R10.31 Right lower quadrant pain (principal); J96.11 Chronic respiratory failure with hypoxia; E87.1 Hypo-osmolality and hyponatremia; I10 Essential (primary) hypertension; F32.9 Major depressive disorder, single episode, unspecified; J44.9 Chronic obstructive pulmonary disease, unspecified; Z79.52 Long term (current) use of systemic steroids; Z99.81 Dependence on supplemental oxygen; J45.909 Unspecified asthma, uncomplicated; F41.9 Anxiety disorder, unspecified; E78.5 Hyperlipidemia, unspecified; K21.9 Gastro-esophageal reflux disease without esophagitis; G47.33 Obstructive sleep apnea (adult) (pediatric); Z87.01 Personal history of pneumonia (recurrent); Z90.710 Acquired absence of both cervix and uterus; Z90.49 Acquired absence of other specified parts of digestive tract; Z80.9 Family history of malignant neoplasm, unspecified; Z83.79 Family history of other diseases of the digestive system; Z82.49 Family history of ischemic heart disease and other diseases of the circulatory system; Z83.6 Family history of other diseases of the respiratory system; Z88.8 Allergy status to other drugs, medicaments and biological substances; Z79.4 Long term (current) use of insulin; Z79.82 Long term (current) use of aspirin; Z79.899 Other long term (current) drug therapy; J47.9 Bronchiectasis, uncomplicated; D72.829 Elevated white blood cell count, unspecified; E09.9 Drug or chemical induced diabetes mellitus without complications; T38.0X5A Adverse effect of glucocorticoids and synthetic analogues, initial encounter

== ENCOUNTER 2016-07-12 20:54 | Inpatient (IN) | payer OTHER ==
[~2016-07-12] VITALS: Ht 165.1 cm; Wt 84.1 kg
[~2016-07-12 20:54] MED LIST changes: -ALBINS INH; -AMOX1TAB43 PO; -FSM70 PO; -HYDR5TAB57 PO; -METO50TA16 PO; -MISCCAP80 PO; -NVLNI SQ; -PRD10 PO; -PRED-301 PO; -PRED20TA2 PO; -SULF-183 PO; -probiotic PO; -vitamin c PO
[2016-07-12] MEDS ORDERED: ALBUT/IPRATROP 3MG/0.5MG NEB 3 ML VIAL INH STA (21:48)
[2016-07-12 22:11] LABS: ISTAT HEMOGLOBIN 10.2 g/dl (12.0-16.0); ISTAT IONIZED CALCIUM 1.2 mmol/l (1.12-1.32)
[2016-07-12 22:19] LABS: POINT OF CARE PRO-BNP 146 pg/ml (0-900)
--- NOTE | 2016-07-12 22:19 | DIAGNOSTIC IMAGING REPORT ---
CHEST ONE VIEW PORTABLE CLINICAL HISTORY: Shortness of breath. COMPARISON STUDY: Chest radiograph May 24, 2016. FINDINGS: A right internal jugular [id number]-Hsax is in place. There are median sternotomy wires. No pneumothorax or pleural effusion is present. There is no lobar consolidation. Bilateral airspace opacities with interstitial thickening persists. IMPRESSION: Diffuse interstitial thickening with bilateral opacities. The findings could reflect an infectious process or pulmonary edema superimposed upon chronic interstitial lung disease. Electronically signed by: Norberto Reeves M.D. 07/12/2016 10:18 PM Dictated Date/Time: 07/12/2016 10:17 PM
[2016-07-12 22:32] LABS: VEN BLOOD GAS BASE EXCESS 5.5 mmol/L; VENOUS BLOOD GAS PCO2 56 mmHg (38.0-50.0); VENOUS BLOOD GAS PO2 31 mmHg
[2016-07-12] MEDS ORDERED: OXGN (22:32)
[2016-07-12 22:33] LABS: VEN BLD GAS O2 SATURATION < 60.0 %
[2016-07-12] MEDS ORDERED: OPTIRAY 320 IV PRN (23:45)
[2016-07-13] VITALS (8 sets, daily range): BP systolic 127–143; BP diastolic 82–91; PULSE 88–109; TEMP 36.7–36.9; O2SAT 91–97; Ht 165.1 cm; Wt 84.1 kg
--- NOTE | 2016-07-13 01:38 | EMERGENCY ROOM VISIT NOTE ---
History Report prepared by Alvaro: Teodoro Jeronimo Under the Supervision of: Jakub DurantO. First contact with patient: 21:41 Chief Complaint: TACHYCARDIA Stated Complaint: INCREASED HEART RATE, SOB/TROUBLE BREATHING History of Present Illness The patient is a 55 year old female who presents to the Emergency Room with complaints of persistent shortness of breath beginning this morning. She notes that she also developed tachycardia about 1 hour after her outpatient blood work today. She adds that she has had a dry, nonproductive cough. The patient is normally on 2 to 4 liters of supplemental oxygen. She has been admitted for pneumonia in the past and has a history of bronchiectasis. She states her lungs sounds are wheezy and crackly at baseline. She reports having nebulizers at home. The patient denies any history of heart failure. She is schedule for a bronchoscopy soon. Source of History: patient Onset: earlier today Position: other (lungs) Quality: other (shortness of breath) Timing: other (persistent) Associated Symptoms: + cough Note: The patient notes having some tachycardia. Review of Systems See HPI for pertinent positives & negatives. A total of 10 systems reviewed and were otherwise negative. 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 (16) Tachycardia Surgical Problems: (1) H/O atrial septal defect repair (2) H/O: hysterectomy (3) History of hysterectomy (4) History of myringotomy (5) Hx of appendectomy (6) Hx of cholecystectomy (7) Hx of tympanostomy tubes (8) S/P bronchoscopy (9) S/P sinus surgery (10) S/P tonsillectomy and adenoidectomy Family History Cancer Diabetes mellitus Gallbladder disease Heart disease Hypertension Kidney disease Kidney stones Lung disease Social History Smoking Status: Never Smoker Alcohol Use: none Drug Use: none Marital Status: single Current/Historical Medications Scheduled Albuterol Sulf (Albuterol Sulfate), 3 ML NEB DAILY Alendronate/Cholecalciferol (Fosamax+D 70MG/2800 Iu), 1 TABLET PO WK Aspirin (Aspirin Chewable), 81 MG PO QAM Calcium Carbonate-Vitamin D W/ (Caltrate 600 Plus), 1 TAB PO BID Cyanocobalamin (Vitamin B12), 1,000 MCG PO DAILY Ferrous Sulfate (Ferrous Sulfate), 325 MG PO DAILY Fluticasone Propionate (Nasal) (Flonase Allergy Relief), 2 SPRY ESPERANZA QAM Folic Acid (Folic Acid), 1 TAB PO QAM Insulin Aspart (Novolog Penfill), SQ AC Magnesium Oxide (Mg Supplement (Magnesium), 400 MG PO DAILY Metoprolol Tartrate (Lopressor), 50 MG PO BID Multiple Vitamin (Multivitamin), 1 TAB PO QAM Oxygen (Oxygen), 4 LITERS NA DAILY Pantoprazole (Protonix), 40 MG PO QAM Prednisone Tab (Prednisone), 10 MG PO DAILY Scheduled PRN Dextromethorphan-Guaifenesin (Mucinex Dm Maximum Streng), 1 TAB PO BID PRN for Nasal Congestion Allergies Coded Allergies: Albuterol (Verified Allergy, Mild, CHEST PAIN, 07/12/16) PT STATES "IF TAKE TOO MUCH DEVELOPS CHEST PAIN". TOLERATE LEVALBUTEROL 04/2015 Physical Exam Vital Signs Date Time Temp Pulse Resp B/P Pulse Ox O2 Delivery O2 Flow Rate FiO2 07/13/16 01:35 106 20 147/93 94 Nasal Cannula 5.0 07/13/16 01:19 107 07/13/16 00:39 117 22 183/102 93 Nasal Cannula 5.0 07/12/16 21:42 104 07/12/16 21:15 36.9 107 28 131/84 94 Nasal Cannula 5.0 Physical Exam CONSTITUTIONAL/VITAL SIGNS: Reviewed / noted above. GENERAL: Non-toxic in appearance. INTEGUMENTARY: Warm, dry, and [place]. HEAD: Normocephalic. EYES: without scleral icterus or trauma. ENT/OROPHARYNX: clear and moist. LYMPHADENOPATHY/NECK: Is supple without lymphadenopathy or meningismus. RESPIRATORY: Bilateral crackles and scattered wheezing. Mild increased work of breathing. CARDIOVASCULAR: Regular rate and rhythm. GI/ABDOMEN: Soft and nontender. No organomegaly or pulsatile mass. No rebound or guarding. Normal bowel sounds. EXTREMITIES: Warm and well perfused. BACK: No CVA tenderness. NEUROLOGICAL: Intact without focal deficits. PSYCHIATRIC: normal affect. MUSCULOSKELETAL: Normally developed with good muscle tone. Medical Decision & Procedures ER Provider Diagnostic Interpretation: Radiology results as stated below per my review and radiologist interpretation: CHEST ONE VIEW PORTABLE FINDINGS: A right internal jugular [id number] is in place. There are median sternotomy wires. No pneumothorax or pleural effusion is present. There is no lobar consolidation. Bilateral airspace opacities with interstitial thickening persists. IMPRESSION: Diffuse interstitial thickening with bilateral opacities. The findings could reflect an infectious process or pulmonary edema superimposed upon chronic interstitial lung disease. Electronically signed by: Norberto Reeves M.D. 07/12/2016 10:18 PM Dictated Date/Time: 07/12/2016 10:17 PM CTA CHEST: Comparison to 05/12/15 Mild artifact. No evidence for PE. Mediastinal adenopathy. Bronchiectasis most prominent in the right middle lobe and lingula. Diffuse tree -in-bud in type opacities. Given above findings, consider Pulmonary Mycobacterium avium complex (MAC) infection. Incidental findings include possible hepatic steatosis, cholecystectomy possible lipoma in region of distal stomach/proximal duodenum and right sided port. Radiologist: Mike Ribeiro M.D. Laboratory Results Test 07/12/16 21:55 07/12/16 21:58 07/12/16 22:11 Bedside D-Dimer > 450 ng/mlFEU (0-450) Bedside Troponin I 0.000 ng/ml (0-0.045) SP-Bkz-X-Type Natriuretic Peptide 146 pg/ml (0-900) Bedside Hemoglobin 10.2 g/dl (12.0-16.0) Bedside Hematocrit 30 % (37-47) Bedside Sodium 138 mEq/L (135-144) Bedside Potassium 4.3 mEq/L (3.3-5.0) Bedside Chloride 99 mEq/L (101-112) Bedside Total CO2 29 mEq/l (24-31) Anion Gap 15.0 mmol/L (16-25) Bedside Blood Urea Nitrogen 10 mg/dl (7-18) Bedside Creatinine 1.0 mg/dl (0.6-1.3) Bedside Glucose (other) 142 mg/dl (70-99) Bedside Ionized Calcium (Dwayne) 1.20 mmol/l (1.12-1.32) Venous Blood pH 7.38 (7.36-7.41) Venous Blood Partial Pressure CO2 56 mmHg (38.0-50.0) Venous Blood Partial Pressure O2 31 mmHg Venous Blood HCO3 32 mmol/L Venous Blood Oxygen Saturation < 60.0 % Venous Blood Base Excess 5.5 mmol/L Laboratory results as stated above per my review. Medications Administered Medications (Trade) Dose Ordered Sig/Man Route Start Time Stop Time Status Last Admin Dose Admin Albuterol/ Ipratropium (Duoneb) 3 ml NOW STAT INH 07/12/16 21:48 07/12/16 21:50 DC 07/12/16 21:48 3 ML ED Course 2149: Previous medical records were reviewed. The patient was evaluated in room C8. A complete history and physical examination was performed. 2147: Ordered Duoneb 3 ml INH. 134: I updated the patient. She would like to stay in the hospital. 9: Discussed the patient's case with Dr. Silverio. The patient will be evaluated for further treatment and disposition. Medical Decision the differential was considered includes acute myocardial infarction, acute coronary syndrome, myocarditis, pericarditis, pericardial effusions /tamponad, esophageal perforation, pulmonary embolism, pneumonia, pneumothorax, cardiomyopathy, congestive heart, anemia , COPD/asthma exacerbation. This is a 55-year-old female who presents to the ED with a chief complaint of dyspnea. She states that she has been feeling short of breath since about 1 AM this morning. She also reports a nonproductive cough. Her physical exam is noted above. She does have some moist sounding lungs sounds with some scattered wheezes. She is in no distress. Oxygen saturation is are above 90% on her typical 2 L of oxygen that she uses at home. She does have chronic lung disease. She had some outpatient blood work done this morning that revealed a baseline hemoglobin of 10.6. Her PRP was unremarkable. Glucose is 128. The patient's evaluation here today included a d-dimer that was elevated. Troponin is negative. BNP is normal. Chest x-ray reveals bilateral opacities which could be infectious versus pulmonary edema versus chronic lung disease. A VBG revealed a normal acid base status and a PCO2 of 56. CT scan of the chest reveals bronchiectasis as well as diffuse tree and but opacities suggestive of an atypical pneumonia. The patient has had similar findings on previous CT scans. The patient is concerned about hypoxia with exertion. She states that she walked to the bathroom and back to her bed while here and her saturations dropped to 76% on her normal oxygen. The patient states that she is short of breath with any activity. She feels uncomfortable going home. I spoke with the hospitalist, who will see the patient for further inpatient evaluation and care. She was given IV Zithromax and a duoneb here. Consults Time Called: 137 Consulting Physician: Saran Finch Returned Call: [phone] Discussed the patient's case with Dr. iSlverio. The patient will be evaluated for further treatment and disposition. Impression Primary Impression: Dyspnea Additional Impressions: Chronic lung disease Atypical pneumonia Scribe Attestation The scribe's documentation has been prepared under my direction and personally reviewed by me in its entirety. I confirm that the note above accurately reflects all work, treatment, procedures, and medical decision making performed by me. Departure Information Dispostion Being Evaluated By Hospitalist Referrals Ivonne Subramanian (PCP) Patient Instructions My [facility] Problem Qualifiers
[2016-07-13] MEDS ORDERED: SODIUM CHLORIDE 0.9% 1000ML 1,000 ML IV STA (01:44)
[2016-07-13] MEDS ORDERED: AZITHROMYCIN IV 500 MG in DEXTROSE 5% 250ML 250 ML IV ONE (01:45)
[2016-07-13] MEDS ORDERED: METHYLPREDNISOLONE IV 40 MG in SYRINGE 0 ML IV ONE (01:45)
[2016-07-13 02:32] LABS: THYROID STIMULATING HORMONE 1.41 uIu/ml (0.300-4.500)
[2016-07-13] MEDS ORDERED: INSULIN GLARGINE SOLOSTAR 100 UNITS/ML 3 ML PEN SC ONE (02:52)
[2016-07-13] MEDS ORDERED: DOXYCYCLINE IV 100 MG in DEXTROSE 5% 100ML 100 ML IV ONE (02:52)
[2016-07-13] MEDS ORDERED: GUAIFENESIN 600 MG TABCR PO ONE (02:52)
[2016-07-13] MEDS ORDERED: LEVALBUTEROL/IPRATROPIUM NEB INH SCH (03:00)
[2016-07-13] MEDS ORDERED: LORAZEPAM 2 MG/ML 1 ML VIAL IV PRN (03:00)
[2016-07-13] MEDS ORDERED: ONDANSETRON INJ 2 MG/ML 2 ML VIAL IV PRN (03:00)
[2016-07-13] MEDS ORDERED: GLUCOSE 10 TABS/TUBE PO PRN (03:00)
[2016-07-13] MEDS ORDERED: MoRPHine SULFATE 4 MG/ML 1 ML CARP\\VIAL IV PRN (03:00)
[2016-07-13] MEDS ORDERED: GLUCAGON FOR INJ 1 MG VIAL SQ PRN (03:00)
[2016-07-13] MEDS ORDERED: DEXTROSE 50% 50 ML SYR IV PRN (03:00)
[2016-07-13] MEDS ORDERED: GLUCOSE 40% GEL 15 GM TUBE PO PRN (03:00)
[2016-07-13] MEDS ORDERED: LEVALBUTEROL/IPRATROPIUM NEB INH PRN (03:00)
[2016-07-13] MEDS ORDERED: LEVALBUTEROL 1.25MG/0.5ML NEB INH PRN (03:45)
[2016-07-13] MEDS ORDERED: PATIENT'S HEIGHT AND/OR WEIGHT NEEDED SCH (03:45)
[2016-07-13] MEDS ORDERED: IPRATROPIUM BROMIDE NEB SOLN 0.02% 2.5 ML VIAL INH PRN (03:45)
[2016-07-13] MEDS ORDERED: NSS + 20MEQ KCL 1000ML 1,000 ML IV ONE (04:00)
[2016-07-13 06:17] LABS: PROTHROMBIN TIME (PATIENT) 10.9 SECONDS (9.0-12.0)
[2016-07-13 06:36] LABS: CREATININE 1.1 mg/dl (0.60-1.20)
[2016-07-13 06:43] LABS: CALCIUM 8.7 mg/dl (8.5-10.1); MAGNESIUM 1.8 mg/dl (1.8-2.4); POTASSIUM 4.5 mmol/L (3.5-5.1)
[2016-07-13 06:49] LABS: ALB/GLOB RATIO 0.7 (0.9-2)
[2016-07-13 06:54] LABS: BASO % 0.4 %; BASO ABS # 0.02 K/uL (0-0.2); COMPLETE YES; EOS % 1.6 %; IG% 0.2 %; LYMPH % 13.8 %; LYMPH ABS # 0.77 K/uL (1.2-3.4); MEAN CELL VOLUME 86.5 fL (80-100); MEAN CORPUSCULAR HEMOGLOBIN 27.7 pg (25-34); MEAN PLATELET VOLUME 9.3 fL (7.4-10.4); MONO % 1.4 %; NEUT % 82.6 %; PLATELET COUNT 146 K/uL (130-400); RED BLOOD COUNT 3.47 M/uL (4.2-5.4); WHITE BLOOD COUNT 5.59 K/uL (4.8-10.8)
--- NOTE | 2016-07-13 06:58 | DIAGNOSTIC IMAGING REPORT ---
CT ANGIOGRAM OF THE CHEST CLINICAL HISTORY: Atypical chest pain and shortness of breath COMPARISON STUDY: Chest x-ray dated 07/12/2016 TECHNIQUE: Following the IV administration of 64 mL of Optiray-320, CT angiogram of the thorax was performed from the thoracic inlet to the lung bases utilizing the pulmonary embolus protocol. Images are reviewed in the axial, sagittal, and coronal planes. IV contrast was administered without complication. MIP imaging was performed. CT DOSE: 794.94 mGy.cm FINDINGS: There are mildly enlarged mediastinal lymph nodes in the paratracheal prevascular and subcarinal regions. There is no pathologic hilar or axillary lymphadenopathy. There is a small hyperdense focus adjacent the anterior descending thoracic aortic wall. This is of questionable clinical significance but is unlikely to represent a dissection flap. There is mild ectasia of ascending thoracic aorta. There were no pulmonary artery filling defects to indicate acute pulmonary embolism. There are few calcified pleural plaques present. There is no significant pleural fluid. There are diffuse bronchiectatic changes, most severe within the right middle lobe. There are diffuse bilateral tree-in-bud type nodular opacities, statistically inflammatory. There is no lobar consolidation. A 17 mm pleural-based opacity within the right upper lobe, likely represents focal inflammation/atelectasis. There is hepatic steatosis. There is an equivocal lipoma within the distal stomach/proximal duodenum. IMPRESSION: 1. No CT evidence of acute pulmonary embolism 2. Extensive bronchiectatic changes 3. Diffuse bilateral tree-in-bud type opacities. An inflammatory process favored. An atypical mycobacterium infection must be considered within the differential diagnosis 4. Mediastinal lymphadenopathy Electronically signed by: Joshua Sanders M.D. 07/13/2016 6:57 AM Dictated Date/Time: 07/13/2016 6:48 AM
[2016-07-13] MEDS: IPRATROPIUM BROMIDE NEB SOLN 0.02% 2.5 ML VIAL INH SCH ×3 (07:21→19:21)
[2016-07-13] MEDS: LEVALBUTEROL 1.25MG/0.5ML NEB INH SCH ×3 (07:23→19:22)
--- NOTE | 2016-07-13 07:52 | HISTORY & PHYSICAL EXAMINATION ---
DATE OF ADMISSION: 07/13/2016 PRIMARY CARE DOCTOR: Miss Ivonne SubramanianSHMUEL Hx obtained from px and records. HISTORY OF PRESENT ILLNESS: Medical history significant for chronic respiratory failure 2 to steroid dependent bronchiectasis on home O2, immunodeficiency as per records, hx CAD as per records, chronic anemia (baseline hemoglobin of 10), steroid-induced type 2 diabetes. Recent confinement last in May 2016 for right lower quadrant pain, of unclear etiology. Px noted dry cough symptoms the last few days. Denies aspiration. Denies fluid retention. No chest pain. Worsening shortness of breath. Noted to be hypoxemic at the Emergency Room. Px received Duoneb and Azithromycin at the ER for poss atypical pneumonia. MEDICAL HISTORY: As above. SURGERIES: Atrial septal defect repair, hysterectomy, appendectomy, cholecystectomy, sinus surgery, tonsillectomy and adenectomy HOME MEDICATIONS: Include; aspirin, albuterol, Fosamax, calcium plus D, vitamin B, Mucinex, multivitamins, oxygen, Protonix, prednisone, ferrous sulfate, Flonase, folic acid, NovoLog Lopressor. ALLERGIES: TO ALBUTEROL. FAMILY HISTORY: Ovarian cancer, AAA, lymphoma and blood clots. PERSONAL AND SOCIAL HISTORY: Nonsmoker. No chronic intake of alcoholic beverages. On disability. REVIEW OF SYSTEMS: As per HPI, all other ROS negative. PHYSICAL EXAMINATION: VITAL SIGNS: Blood pressure was noted to be 140/80 pulse rate 107, RR 28, temperature 36.9 and sats 94 on 5 liters. GENERAL: Noted to be in minimal respiratory distress, obese and cushingoid. SKIN: Pallor. HEENT: Pale palpebral conjunctivae. Dry mucosa. NECK: Short neck. LUNGS: Expiratory wheezes. HEART: Tachycardic. ABDOMEN: Soft, some distention. EXTREMITIES: No edema. no tenderness NEUROLOGIC: No gross focality. LABORATORIES: Hemoglobin was noted to be 10.6, hematocrit 30.6, white cell count 5.4 and platelets noted to be 167. Sodium 138, potassium 4.3, chloride 99, CO2 30, BUN 8, creatinine 1.1 and glucose was noted to be 128. Troponin was negative. CTA initial read showed bronchiectasis, consider pulmonary MAC infection, hepatic steatosis, cholecystectomy. VBG; pH 7.38 and pCO2 of 56. ASSESSMENT: 1. Acute on chronic hypoxemic hypercapnic respiratory failure secondary to bronchiectasis exacerbation steroid-dependent disease 2. hx hypogammaglobulinemia 3. hypertension, slightly elevated 4. steroid induced hyperglycemia well-controlled as of recent HgA1c of 6.8 in May 2016. 5. Chronic anemia, hemoglobin at baseline. PLAN: GMF Doxycycline, Solu-Medrol dose now. Prednisone course. Nebs RTC p.r.n. Pulmonary consult. RE bronchiectasis exacerbation . Patient known to [place] [facility] BG goal 140-180, may need basal Lantus to attain goal DVT prophylaxis, Lovenox subQ. Full code. MTDD
[2016-07-13] MEDS: ASPIRIN 81 MG ECTAB PO SCH (07:55)
[2016-07-13] MEDS: METOPROLOL TARTRATE 25 MG TAB PO SCH ×2 (07:55→21:01)
[2016-07-13] MEDS: FERROUS SULFATE 325 MG TAB PO SCH (07:55)
[2016-07-13] MEDS: PANTOprazole SOD 40 MG TAB PO SCH (07:56)
[2016-07-13] MEDS: MULTIVITAMIN TAB PO SCH (07:56)
[2016-07-13] MEDS: INSULIN ASPART 100 UNITS/ML 3 ML PEN SC SCH ×4 (08:00→21:00)
[2016-07-13] MEDS: ENOXAPARIN 40 MG/0.4 ML SYR SQ SCH (10:36)
[2016-07-13] MEDS: ACETAMINOPHEN 325 MG TAB PO PRN ×2 (11:25→21:00)
--- NOTE | 2016-07-13 15:40 | Pulmonary Consultation ---
History General Date of Service: Jul 13, 2016. Stated Complaint: Respiratory Failure, [id number] HPI The patient is a 55 year old female who presents to [facility] with complaints of Respiratory Failure, [id number]. The patient's primary care provider is Ivonne Subramanian. A 55 year old female whom presented to the Emergency Room complaining of persistent shortness of breath starting on the day of her admission. Patient has a history of chronic lung infection with severe bronchiectasis and cystic changes. She hss grown out stenotrophomonas, Pseudomonas and MSSA on previous evaluations. She has been treated multiple medical centers and last year at [facility] was diagnosed with hypogammaglobulinemia possible CVID. Secondary to this the patient was placed on immunotherapy placement therapy. She is noted over her last 2 respiratory decompensations acute onset with no increasing sputum production, fever or chills noted. She does state that she is experienced mild increased lethargy/fatigue on the day or 2 prior to these events. After admission current treatment she has noted improvement. Work-up: VB.38/56corrected to ==7.42/48 WBC: 6K D-dimer: >450 INR: 1.0 CTA Diffuse bronchiectasis/cystic changes especially in the RML and Lingula Diffuse thin walled cysts Diffuse tree-n-bud Historian: patient, EMS Review of Systems Constitutional: reports: weakness Eyes: reports: no symptoms ENT: reports: rhinorrhea Cardiovascular: reports: no symptoms, palpitations Respiratory: reports: as stated in HPI Gastrointestinal: reports: no symptoms Genitourinary - Female: reports: no symptoms Musculoskeletal: reports: myalgias Integumentary: reports: no symptoms Neurologic: reports: no symptoms Psychiatric: reports: no symptoms Endocrine: no symptoms Hematologic / Lymphatic: no symptoms Allergic / Immunologic: no symptoms Past Medical History Past Medical History: 1) Anxiety 2) COPD/Asthma (ACOS: FEV1: 53% with FEV1/FVC: 71) 3) Bronchiectasis 4) COPD 5) Depression 6) Diabetes 7) Emphysema 8) GERD 9) Hyperlipidemia 10) Idiopathic bronchiectasis 11) Mild pulmonary hypertension 12) BILL (obstructive sleep apnea) 13) Oxygen dependent 14) Pneumonia 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 16) Tachycardia 17) Bacterimia from port-o-cath 18) Hypogammaglobulinemia 19) Stenotrophomonas maltophilia pna (mutli-drug resistant) 20) Pulmonary Nodules 21) MAURICIO 22) Pseudomonas Pna Past Surgical History: (1) atrial septal defect repair (2) hysterectomy (3) hysterectomy (4) myringotomy (5) appendectomy (6) cholecystectomy (7) tympanostomy tubes (8) bronchoscopy (9) sinus surgery (10) tonsillectomy and adenoidectomy Family History Cancer Diabetes mellitus Gallbladder disease Heart disease Hypertension Kidney disease Kidney stones Lung disease Cancer Diabetes mellitus Gallbladder disease Heart disease Hypertension Kidney disease Kidney stones Lung disease Social History Smoking Status: Never Smoker Alcohol Use: none Drug Use: none Marital Status: single Hx Tobacco Use In Past Year?: No Smoking Status: Never Smoker Alcohol: never Drug Use: none Marital status: single Housing status: lives alone Immunizations History of Influenza Vaccine: Yes Influenza Vaccine Date: Mar 14, 2015 History of Tetanus Vaccine?: Yes Tetanus Immunization Date: Jun 16, 2010 History of Pneumococcal: Yes Pneumococcal Date: Sep 22, 2010 History of Hepatitis B Vaccine: Unknown History of MDRO History of MDRO: No Allergies Coded Allergies: Albuterol (Verified Allergy, Mild, CHEST PAIN, 07/12/16) PT STATES "IF TAKE TOO MUCH DEVELOPS CHEST PAIN". TOLERATE LEVALBUTEROL 04/2015 Current Medications Reported Home Medications Medications Dose Route/Sig Max Daily Dose Days Date Category Dose Instructions Oxygen Gas 4 Liters NA DAILY 07/12/16 Reported Novolog Penfill (Insulin Aspart) 100 Unit/Ml Inj SQ AC 05/24/16 Reported PER SLIDING SCALE Flonase Allergy Relief (Fluticasone Propionate (Nasal)) 50 Mcg/Act Spr 2 [place] ESPERANZA QAM 05/24/16 Reported Ferrous Sulfate 325 Mg Tab 325 Mg PO DAILY 05/24/16 Reported Magnesium (Magnesium Oxide (Mg Supplement) 400 Mg Cap 400 Mg PO DAILY 02/23/16 Reported Lopressor (Metoprolol Tartrate) 25 Mg Tab 50 Mg PO BID 02/23/16 Reported Vitamin B12 (Cyanocobalamin) 1,000 Mcg Tab 1,000 Mcg PO DAILY 02/23/16 Reported Fosamax+D 70MG/2800 Iu (Alendronate Sodium/Vitamin D3) 70 Mg Tab 1 Tablet PO WK 02/23/16 Reported TUESDAYS Albuterol Sulfate (Albuterol Sulf) 2.5 Mg/3 Ml Nebu 3 Ml NEB DAILY 02/23/16 Reported USE SALT SOLUTION IN NEBULIZER Prednisone 10 Mg Tab 10 Mg PO DAILY 05/12/15 Reported Folic Acid 1 Mg Tab 1 Tab PO QAM 03/26/15 Reported Aspirin Chewable (Aspirin) 81 Mg Chew 81 Mg PO QAM 03/26/15 Reported Mucinex Dm Maximum Streng (Dextromethorphan-Guaifenesin) 1 Tab Tab 1 Tab PO BID PRN 03/26/15 Reported Caltrate 600 Plus (Calcium Carbonate-Vitamin D W/) 1 Tab Tab 1 Tab PO BID 09/20/14 Reported Multivitamin (Multiple Vitamin) 1 Tab Tab 1 Tab PO QAM 09/20/14 Reported Protonix (Pantoprazole) 40 Mg Tab 40 Mg PO QAM 09/20/14 Reported Physical Physical Exam Vital Signs: Date Time Temp Pulse Resp B/P Pulse Ox O2 Delivery O2 Flow Rate FiO2 07/13/16 15:00 36.7 89 18 127/82 93 Nasal Cannula 4.0 07/13/16 14:20 109 20 95 Nasal Cannula 4.0 07/13/16 08:00 Nasal Cannula 5.0 07/13/16 07:27 109 20 95 Nasal Cannula 4.0 07/13/16 07:24 36.9 90 18 135/91 97 Nasal Cannula 5.0 07/13/16 04:39 91 Nasal Cannula 5.0 07/13/16 03:00 36.7 88 20 137/91 91 Nasal Cannula 5.0 07/13/16 03:00 36.9 106 24 143/84 91 Nasal Cannula 5.0 07/13/16 02:46 101 22 137/91 94 Nasal Cannula 5.0 07/13/16 01:35 106 20 147/93 94 Nasal Cannula 5.0 07/13/16 01:19 107 07/13/16 00:39 117 22 183/102 93 Nasal Cannula 5.0 07/12/16 21:42 104 07/12/16 21:15 36.9 107 28 131/84 94 Nasal Cannula 5.0 General Appearance: NO APPARENT DISTRESS Head: NORMOCEPHALIC, ATRAUMATIC Eyes: PERRLA, NO DISCHARGE, EOMI, SCLERAE NORMAL ENT: NORMAL EAR EXAM, NORMAL NASAL EXAM, NORMAL MOUTH EXAM, NORMAL THROAT EXAM Neck: NORMAL RANGE OF MOTION, NO TENDERNESS, TRACHEA MIDLINE, NO STRIDOR Respiratory: rhonchi, wheezing Cardiovasular: REGULAR RATE/RHYTHM, NORMAL S1S2, NO M/G/R Abdomen: NON TENDER, NORMAL BOWEL SOUNDS, NO REBOUND, NO MASSES, NO GUARDING, NO ORGANOMEGALY Genitourinary - Female: EXTERNAL GENITALIA NORMAL Back: NORMAL INSPECTION, NO MIDLINE TENDERNESS, NO CVA TENDERNESS, NO PARAVERTEBRAL TTP Upper Extremities: NO EDEMA, NO DEFORMITY, NORMAL ROM Lower Extremities: NO EDEMA, NO DEFORMITY, NORMAL ROM Pulses: carotid (R) (2+), carotid (L) (2+), posterior tibial (R), posterior tibial (L) (2+) Neuro: ALERT, ORIENTED x 3, NORMAL MOTOR EXAM, NORMAL SENSATION, NORMAL CEREBELLAR EXAM, NORMAL SPEECH Reflexes: biceps (R) (2+), bicpes (L) (2+) Babinski Testing: right (downgoing), left (downgoing) Psychiatric: NORMAL AFFECT, NO SUICIDAL IDEATION Diagnostics Labs Results Past 24 Hours Test 07/12/16 21:47 07/12/16 21:55 07/12/16 21:58 07/12/16 22:11 Range/Units Magnesium Level 2.0 1.8-2.4 mg/dl Thyroid Stimulating Hormone (TSH) 1.410 0.300-4.500 uIu/ml Bedside D-Dimer > 450 0-450 ng/mlFEU Bedside Troponin I 0.000 0-0.045 ng/ml [id number]-Wgf-H-Type Natriuretic Peptide 146 0-900 pg/ml Bedside Hemoglobin 10.2 12.0-16.0 g/dl Bedside Hematocrit 30 37-47 % Bedside Sodium 138 135-144 mEq/L Bedside Potassium 4.3 3.3-5.0 mEq/L Bedside Chloride 99 101-112 mEq/L Bedside Total CO2 29 24-31 mEq/l Anion Gap 15.0 16-25 mmol/L Bedside Blood Urea Nitrogen 10 7-18 mg/dl Bedside Creatinine 1.0 0.6-1.3 mg/dl Bedside Glucose (other) 142 70-99 mg/dl Bedside Ionized Calcium (Dwayne) 1.20 1.12-1.32 mmol/l Venous Blood pH 7.38 7.36-7.41 Venous Blood Partial Pressure CO2 56 38.0-50.0 mmHg Venous Blood Partial Pressure O2 31 mmHg Venous Blood HCO3 32 mmol/L Venous Blood Oxygen Saturation < 60.0 % Venous Blood Base Excess 5.5 mmol/L Test 07/13/16 05:58 07/13/16 07:24 07/13/16 11:06 Range/Units White Blood Count 5.59 4.8-10.8 K/uL Red Blood Count 3.47 4.2-5.4 M/uL Hemoglobin 9.6 12.0-16.0 g/dL Hematocrit 30.0 37-47 % Mean Corpuscular Volume 86.5 80-100 fL Mean Corpuscular Hemoglobin 27.7 25-34 pg Mean Corpuscular Hemoglobin Concent 32.0 32-36 g/dl Platelet Count 146 130-400 K/uL Mean Platelet Volume 9.3 7.4-10.4 fL Neutrophils (%) (Auto) 82.6 % Lymphocytes (%) (Auto) 13.8 % Monocytes (%) (Auto) 1.4 % Eosinophils (%) (Auto) 1.6 % Basophils (%) (Auto) 0.4 % Neutrophils # (Auto) 4.62 1.4-6.5 K/uL Lymphocytes # (Auto) 0.77 1.2-3.4 K/uL Monocytes # (Auto) 0.08 0.11-0.59 K/uL Eosinophils # (Auto) 0.09 0-0.5 K/uL Basophils # (Auto) 0.02 0-0.2 K/uL RDW Standard Deviation 45.3 36.4-46.3 fL RDW Coefficient of Variation 14.5 11.5-14.5 % Immature Granulocyte % (Auto) 0.2 % Immature Granulocyte # (Auto) 0.01 0.00-0.02 K/uL Prothrombin Time 10.9 9.0-12.0 SECONDS Prothromb Time International Ratio 1.0 0.9-1.1 Sodium Level 138 136-145 mmol/L Potassium Level 4.5 3.5-5.1 mmol/L Chloride Level 102 98-107 mmol/L Carbon Dioxide Level 27 21-32 mmol/L Anion Gap 9.0 3-11 mmol/L Blood Urea Nitrogen 11 7-18 mg/dl Creatinine 1.10 0.60-1.20 mg/dl Est Creatinine Clear Calc Drug Dose 68.3 ml/min Estimated GFR () 65.9 Estimated GFR (Non- 56.9 BUN/Creatinine Ratio 10.0 10-20 Random Glucose 171 70-99 mg/dl Calcium Level 8.7 8.5-10.1 mg/dl Magnesium Level 1.8 1.8-2.4 mg/dl Total Bilirubin 0.3 0.2-1 mg/dl Aspartate Amino Transf (AST/SGOT) 18 15-37 U/L Alanine Aminotransferase (ALT/SGPT) 24 12-78 U/L Alkaline Phosphatase 70 45-117 U/L Total Protein 7.6 6.4-8.2 gm/dl Albumin 3.1 3.4-5.0 gm/dl Globulin 4.5 2.5-4.0 gm/dl Albumin/Globulin Ratio 0.7 0.9-2 Bedside Glucose 198 215 70-90 mg/dl Microbiology Results 07/13/16 Blood Culture, Received Pending 07/12/16 Blood Culture, Received Pending Diagnostic Radiology CTA Diffuse bronchiectasis/cystic changes especially in the RML and Lingula Diffuse thin walled cysts Diffuse tree-n-bud Impression Assessment and Plan 55-year-old female with chronic bronchiectasis/cystic changes with acute on chronic respiratory insufficiency: #1 ID: As this patient has a significant history of stenotrophomonas, Pseudomonas, MSSA and recent hospital admission requiring treatment for hospital associated pneumonia at this time switching the patient to cefepime 2 g IV every 8 hours and initiating Bactrim therapy with discontinuation of doxycycline would be appropriate. Patient requires repeat bronchoscopy when stable for evaluation of secondary infection such as MAURICIO. 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 I would like the patient's evaluation from [facility] sent to the [facility] and/or entered into the hospital records for further evaluation. The patient should continue on immunoglobulin replacement. At this time we'll check IgG M/IgG/IgA levels. #3 COPD/chronic bronchiectasis: Only function tests obtained 2010 show signs of moderately severe COPD/bronchiectasis at that time. As an outpatient patient will have these studies repeated.
--- NOTE | 2016-07-13 16:44 | Progress Note ---
Internal Med Progress Note Date of Service: Jul 13, 2016. Provider Documentation: SUBJECTIVE: Patient is feeling marginal improvement- SOB better Cough with no sputum production No chest pain, fever, chills, nausea, vomiting, abdominal pain. OBJECTIVE: Vital Signs-as noted below Exam: General-AAOX3, no distress Neck-Supple, No accessory muscles of respiration Lungs-AEBE decreased, mild wheezing present Heart-S1, S2 normal, no murmurs Abdomen-Soft, non tender, non distended, BS present Extremities-No edema Lab data as noted below. ASSESSMENT & PLAN: ASSESSMENT AND PLAN : ACUTE ON CHRONIC HYPOXEMIC HYPERCAPNIC RESPIRATORY FAILURE: -Secondary to Bronchiectasis/Probable infection- pneumonia Has had pulmonary infection with Stenotrophomonas, Pseudomonas, MSSA in past -Antibiotics changed from doxycycline to IV Cefepime q 8 hours per pulmonary recommendation -Nebs -Continue with prednisone taper -Work up- CXR, CT chest - tree bud pattern, cystic changes, bronchiectasis, possible inflammatory /infectious process -Appreciate pulmonary inputs HX OF BRONCHIECTASIS/COPD : Possible etiology considered: CVID. Has been to many medical centers in past, last year [facility]. Diagnosed with hypogammaglobinemia Receives rx once every month -IGG/IGA/IGM levels ordered per pulmonary -Appreciate inputs. Will need follow up outpatient. Will need repeat PFTs outpatient per pulmonary. HYPOGAMMAGLOBINEMIA -Possible CVID. -Receives rx once in a month -IGG/IGA/IGM levels ordered per pulmonary HTN -Monitor STEROID INDUCED HYPERGLYCEMIA -Well-controlled as of recent HgA1c of 6.8 in May 2016. CHRONIC ANEMIA: Hb at baseline -Monitor H & H DVT prophylaxis, Lovenox subQ. Full code DISPOSITION' Expected discharge home when stable Vital Signs: Date Time Temp Pulse Resp B/P Pulse Ox O2 Delivery O2 Flow Rate FiO2 07/13/16 15:00 36.7 89 18 127/82 93 Nasal Cannula 4.0 07/13/16 14:20 109 20 95 Nasal Cannula 4.0 07/13/16 08:00 Nasal Cannula 5.0 07/13/16 07:27 109 20 95 Nasal Cannula 4.0 07/13/16 07:24 36.9 90 18 135/91 97 Nasal Cannula 5.0 07/13/16 04:39 91 Nasal Cannula 5.0 07/13/16 03:00 36.7 88 20 137/91 91 Nasal Cannula 5.0 07/13/16 03:00 36.9 106 24 143/84 91 Nasal Cannula 5.0 07/13/16 02:46 101 22 137/91 94 Nasal Cannula 5.0 07/13/16 01:35 106 20 147/93 94 Nasal Cannula 5.0 07/13/16 01:19 107 07/13/16 00:39 117 22 183/102 93 Nasal Cannula 5.0 07/12/16 21:42 104 07/12/16 21:15 36.9 107 28 131/84 94 Nasal Cannula 5.0 Lab Results: Results Past 24 Hours Test 07/12/16 21:47 07/12/16 21:55 07/12/16 21:58 07/12/16 22:11 Range/Units Magnesium Level 2.0 1.8-2.4 mg/dl Thyroid Stimulating Hormone (TSH) 1.410 0.300-4.500 uIu/ml Bedside D-Dimer > 450 0-450 ng/mlFEU Bedside Troponin I 0.000 0-0.045 ng/ml OZ-Fnv-A-Type Natriuretic Peptide 146 0-900 pg/ml Bedside Hemoglobin 10.2 12.0-16.0 g/dl Bedside Hematocrit 30 37-47 % Bedside Sodium 138 135-144 mEq/L Bedside Potassium 4.3 3.3-5.0 mEq/L Bedside Chloride 99 101-112 mEq/L Bedside Total CO2 29 24-31 mEq/l Anion Gap 15.0 16-25 mmol/L Bedside Blood Urea Nitrogen 10 7-18 mg/dl Bedside Creatinine 1.0 0.6-1.3 mg/dl Bedside Glucose (other) 142 70-99 mg/dl Bedside Ionized Calcium (Dwayne) 1.20 1.12-1.32 mmol/l Venous Blood pH 7.38 7.36-7.41 Venous Blood Partial Pressure CO2 56 38.0-50.0 mmHg Venous Blood Partial Pressure O2 31 mmHg Venous Blood HCO3 32 mmol/L Venous Blood Oxygen Saturation < 60.0 % Venous Blood Base Excess 5.5 mmol/L Test 07/13/16 05:58 07/13/16 07:24 07/13/16 11:06 Range/Units White Blood Count 5.59 4.8-10.8 K/uL Red Blood Count 3.47 4.2-5.4 M/uL Hemoglobin 9.6 12.0-16.0 g/dL Hematocrit 30.0 37-47 % Mean Corpuscular Volume 86.5 80-100 fL Mean Corpuscular Hemoglobin 27.7 25-34 pg Mean Corpuscular Hemoglobin Concent 32.0 32-36 g/dl Platelet Count 146 130-400 K/uL Mean Platelet Volume 9.3 7.4-10.4 fL Neutrophils (%) (Auto) 82.6 % Lymphocytes (%) (Auto) 13.8 % Monocytes (%) (Auto) 1.4 % Eosinophils (%) (Auto) 1.6 % Basophils (%) (Auto) 0.4 % Neutrophils # (Auto) 4.62 1.4-6.5 K/uL Lymphocytes # (Auto) 0.77 1.2-3.4 K/uL Monocytes # (Auto) 0.08 0.11-0.59 K/uL Eosinophils # (Auto) 0.09 0-0.5 K/uL Basophils # (Auto) 0.02 0-0.2 K/uL RDW Standard Deviation 45.3 36.4-46.3 fL RDW Coefficient of Variation 14.5 11.5-14.5 % Immature Granulocyte % (Auto) 0.2 % Immature Granulocyte # (Auto) 0.01 0.00-0.02 K/uL Prothrombin Time 10.9 9.0-12.0 SECONDS Prothromb Time International Ratio 1.0 0.9-1.1 Sodium Level 138 136-145 mmol/L Potassium Level 4.5 3.5-5.1 mmol/L Chloride Level 102 98-107 mmol/L Carbon Dioxide Level 27 21-32 mmol/L Anion Gap 9.0 3-11 mmol/L Blood Urea Nitrogen 11 7-18 mg/dl Creatinine 1.10 0.60-1.20 mg/dl Est Creatinine Clear Calc Drug Dose 68.3 ml/min Estimated GFR () 65.9 Estimated GFR (Non- 56.9 BUN/Creatinine Ratio 10.0 10-20 Random Glucose 171 70-99 mg/dl Calcium Level 8.7 8.5-10.1 mg/dl Magnesium Level 1.8 1.8-2.4 mg/dl Total Bilirubin 0.3 0.2-1 mg/dl Aspartate Amino Transf (AST/SGOT) 18 15-37 U/L Alanine Aminotransferase (ALT/SGPT) 24 12-78 U/L Alkaline Phosphatase 70 45-117 U/L Total Protein 7.6 6.4-8.2 gm/dl Albumin 3.1 3.4-5.0 gm/dl Globulin 4.5 2.5-4.0 gm/dl Albumin/Globulin Ratio 0.7 0.9-2 Bedside Glucose 198 215 70-90 mg/dl Microbiology Results 07/13/16 Blood Culture, Received Pending 07/12/16 Blood Culture, Received Pending
[2016-07-13] MEDS: CEFEPIME IV 2,000 MG in DEXTROSE 5% 100ML 100 ML IV SCH (17:44)
[2016-07-13 19:25] LABS: INFLUENZA A PCR Neg for Influ A (NEG); INFLUENZA B PCR Neg for Influ B (NEG)
[2016-07-13] MEDS: GUAIFENESIN 600 MG TABCR PO SCH (21:00)
[2016-07-13] MEDS ORDERED: DOXYCYCLINE IV 100 MG in DEXTROSE 5% 100ML 100 ML IV SCH (21:00)
[2016-07-14] VITALS (9 sets, daily range): BP systolic 144–150; BP diastolic 79–91; PULSE 92–113; TEMP 36.7–36.8; O2SAT 91–98
[2016-07-14] MEDS: CEFEPIME IV 2,000 MG in DEXTROSE 5% 100ML 100 ML IV SCH ×3 (00:59→16:34)
[2016-07-14] MEDS: LEVALBUTEROL 1.25MG/0.5ML NEB INH SCH ×4 (02:54→19:19)
[2016-07-14] MEDS: IPRATROPIUM BROMIDE NEB SOLN 0.02% 2.5 ML VIAL INH SCH ×4 (02:54→19:18)
[2016-07-14] MEDS: ACETAMINOPHEN 325 MG TAB PO PRN (03:24)
[2016-07-14 06:28] LABS: HEMATOCRIT 30.1 % (37-47); MEAN CELL VOLUME 85.3 fL (80-100); MEAN CORPUSCULAR HEMOGLOBIN 26.6 pg (25-34); MEAN CORPUSCULAR HGB CONC 31.2 g/dl (32-36); MEAN PLATELET VOLUME 9.4 fL (7.4-10.4); PLATELET COUNT 174 K/uL (130-400); RED BLOOD COUNT 3.53 M/uL (4.2-5.4)
[2016-07-14 07:12] LABS: BUN/CREATININE RATIO 12.3 (10-20); CALCIUM 8.8 mg/dl (8.5-10.1); POTASSIUM 3.7 mmol/L (3.5-5.1)
[2016-07-14] MEDS: ENOXAPARIN 40 MG/0.4 ML SYR SQ SCH (07:47)
[2016-07-14] MEDS: INSULIN GLARGINE SOLOSTAR 100 UNITS/ML 3 ML PEN SC SCH (07:48)
[2016-07-14] MEDS: METOPROLOL TARTRATE 25 MG TAB PO SCH ×2 (07:48→20:56)
[2016-07-14] MEDS: GUAIFENESIN 600 MG TABCR PO SCH ×2 (07:49→20:56)
[2016-07-14] MEDS: PANTOprazole SOD 40 MG TAB PO SCH (07:50)
[2016-07-14] MEDS: ASPIRIN 81 MG ECTAB PO SCH (07:50)
[2016-07-14] MEDS: FERROUS SULFATE 325 MG TAB PO SCH (07:50)
[2016-07-14] MEDS: INSULIN ASPART 100 UNITS/ML 3 ML PEN SC SCH ×4 (07:50→20:54)
[2016-07-14] MEDS: MULTIVITAMIN TAB PO SCH (07:51)
--- NOTE | 2016-07-14 09:40 | Progress Note ---
Internal Med Progress Note Date of Service: Jul 14, 2016. Provider Documentation: SUBJECTIVE: Patient is feeling better today. SOB has improved and feels like she is near her baseline Cough with no sputum production No chest pain, fever, chills, nausea, vomiting, abdominal pain. OBJECTIVE: Vital Signs-as noted below Exam: General-AAOX3, no distress Neck-Supple, No accessory muscles of respiration Lungs-AEBE decreased, mild wheezing present Heart-S1, S2 normal, no murmurs Abdomen-Soft, non tender, non distended, BS present Extremities-No edema Lab data as noted below. ASSESSMENT & PLAN: ASSESSMENT AND PLAN : ACUTE ON CHRONIC HYPOXEMIC HYPERCAPNIC RESPIRATORY FAILURE: Resolved -Secondary to Bronchiectasis/Probable infection- pneumonia Has had pulmonary infection with Stenotrophomonas, Pseudomonas, MSSA in past -Antibiotics changed from doxycycline to IV Cefepime q 8 hours per pulmonary recommendation on 07/13/16 -Nebs QID -Continue with prednisone taper -Work up- CXR, CT chest - tree bud pattern, cystic changes, bronchiectasis, possible inflammatory /infectious process -Appreciate pulmonary inputs HX OF BRONCHIECTASIS/COPD : Possible etiology considered: CVID. Has been to many medical centers in past, last year [facility]. Diagnosed with hypogammaglobinemia Receives rx once every month -IGG/IGA/IGM levels ordered per pulmonary -Appreciate inputs. Will need follow up outpatient. Will need repeat PFTs outpatient per pulmonary. HYPOGAMMAGLOBINEMIA -Possible CVID. -Receives rx once in a month -IGG/IGA/IGM levels ordered per pulmonary HTN -Monitor STEROID INDUCED HYPERGLYCEMIA -Well-controlled as of recent HgA1c of 6.8 in May 2016. CHRONIC ANEMIA: Hb at baseline -Monitor H & H DVT prophylaxis, Lovenox subQ. Full code DISPOSITION' Expected discharge home when stable Vital Signs: Date Time Temp Pulse Resp B/P Pulse Ox O2 Delivery O2 Flow Rate FiO2 07/14/16 07:18 113 18 98 Nasal Cannula 4.0 07/14/16 06:48 36.7 100 22 146/79 91 4.0 07/14/16 02:54 92 18 95 Nasal Cannula 4.0 07/14/16 00:18 36.7 93 20 147/90 95 Room Air 07/14/16 00:00 94 Nasal Cannula 4.0 07/13/16 19:22 99 18 94 Nasal Cannula 4.0 07/13/16 16:05 93 Nasal Cannula 4.0 07/13/16 15:00 36.7 89 18 127/82 93 Nasal Cannula 4.0 07/13/16 14:20 109 20 95 Nasal Cannula 4.0 Lab Results: Results Past 24 Hours Test 07/13/16 11:06 07/13/16 16:20 07/13/16 16:33 07/13/16 20:22 Range/Units Bedside Glucose 215 124 146 70-90 mg/dl Influenza Type A (RT-PCR) Neg for Influ A NEG Influenza Type A Antigen Neg for Influ A NEG Influenza Type B Antigen Neg for Influ B NEG Influenza Type B (RT-PCR) Neg for Influ B NEG Test 07/14/16 05:50 07/14/16 07:34 Range/Units White Blood Count 5.90 4.8-10.8 K/uL Red Blood Count 3.53 4.2-5.4 M/uL Hemoglobin 9.4 12.0-16.0 g/dL Hematocrit 30.1 37-47 % Mean Corpuscular Volume 85.3 80-100 fL Mean Corpuscular Hemoglobin 26.6 25-34 pg Mean Corpuscular Hemoglobin Concent 31.2 32-36 g/dl RDW Standard Deviation 44.6 36.4-46.3 fL RDW Coefficient of Variation 14.3 11.5-14.5 % Platelet Count 174 130-400 K/uL Mean Platelet Volume 9.4 7.4-10.4 fL Sodium Level 141 136-145 mmol/L Potassium Level 3.7 3.5-5.1 mmol/L Chloride Level 104 98-107 mmol/L Carbon Dioxide Level 33 21-32 mmol/L Anion Gap 4.0 3-11 mmol/L Blood Urea Nitrogen 12 7-18 mg/dl Creatinine 1.00 0.60-1.20 mg/dl Est Creatinine Clear Calc Drug Dose 75.1 ml/min Estimated GFR () 74.0 Estimated GFR (Non- 63.8 BUN/Creatinine Ratio 12.3 10-20 Random Glucose 99 70-99 mg/dl Calcium Level 8.8 8.5-10.1 mg/dl Bedside Glucose 103 70-90 mg/dl
--- NOTE | 2016-07-14 13:56 | Pulmonology Progress Note ---
Pulmonary Progress Note Date of Service Jul 14, 2016. Attending Dr. Villalta Subjective Patient still notes she is short of breath per progressing and getting back to her baseline. Objective Patient is able to sit up in bed complete full sentences not showing any signs of accessory muscle use, tachypnea or respiratory insufficiency Vital signs: Reviewed stable on 4 L nasal cannula Respiratory: Continue rhonchi bilaterally no acute changes Cardiac: S1-S2 regular rate and rhythm distant heart sounds Abdomen: Positive bowel sounds soft nontender Antibiotics: #1 cefepime 2 g IV every 8 Medications: #1 prednisone 40 mg daily #2 Mucinex 600 mg twice daily #3 Xopenex/Atrovent nebulizers Assessment & Plan 55-year-old female with chronic bronchiectasis/cystic changes with acute on chronic respiratory insufficiency: #1 ID: As this patient has a significant history of stenotrophomonas, Pseudomonas, MSSA and recent hospital admission: Patient does appear to be improving currently on cefepime 2 g IV. We'll hold off on initiating vancomycin but will start on a five-day course of Bactrim DS 800/160 twice a day. 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 I would like the patient's evaluation from [facility] sent to the [place] pulmonary clinic and/or entered into the hospital records for further evaluation. The patient should continue on immunoglobulin replacement. At this time we'll check IgG M/IgG/IgA levels. #3 COPD/chronic bronchiectasis: Only function tests obtained 2010 show signs of moderately severe COPD/bronchiectasis at that time. As an outpatient patient will have these studies repeated. #4 Chronic Sinusitis: Order CT sinuses, initiate Flonase one puff daily each nostril #5 Hypoxia: Appears patients baseline SaO2 was in the low 90s with 2-3 L supplementation. Patient currently turned down to 2 L in the room. We'll perform two-step evaluation for possible discharge. Bactrim DS: BID 800-160 Flonase 51 puff daily Data Medications: Current Inpatient Medications Medications (Trade) Dose Ordered Sig/Man Route Start Time Stop Time Status Last Admin Dose Admin Ioversol (Optiray 320) 100 ml UD PRN IV 07/12/16 23:45 07/16/16 23:44 Enoxaparin Sodium (Lovenox Inj) 40 mg Q24H SQ 07/13/16 09:00 08/12/16 08:59 07/14/16 07:47 40 MG Acetaminophen (Tylenol Tab) 650 mg Q4H PRN PO 07/13/16 03:00 08/12/16 02:59 07/14/16 03:24 650 MG Insulin Aspart (novoLOG ASPART) SLIDING SCALE If C... ACHS SC 07/13/16 06:30 08/12/16 06:59 07/14/16 11:48 1 UNITS Glucose (Glucose 40% Gel) 15-30 GRAMS 15 GRAMS... UD PRN PO 07/13/16 03:00 08/12/16 02:59 Glucose (Glucose Chew Tab) 4-8 Tablets 4 Tabl... UD PRN PO 07/13/16 03:00 08/12/16 02:59 Dextrose (Dextrose 50% 50ML Syringe) 25-50ML OF 50% DW IV FOR... UD PRN IV 07/13/16 03:00 08/12/16 02:59 Glucagon (Glucagon Inj) 1 mg UD PRN SQ 07/13/16 03:00 08/12/16 02:59 Aspirin (Ecotrin Tab) 81 mg QAM PO 07/13/16 09:00 08/12/16 08:59 07/14/16 07:50 81 MG Ferrous Sulfate (Feosol Tab) 325 mg DAILY PO 07/13/16 09:00 08/12/16 08:59 07/14/16 07:50 325 MG Folic Acid (Folvite Tab) 1 mg QAM PO 07/13/16 09:00 08/12/16 08:59 07/14/16 07:49 1 MG Metoprolol Tartrate (Lopressor Tab) 50 mg BID PO 07/13/16 09:00 08/12/16 08:59 07/14/16 07:48 50 MG Multivitamins (Multivitamin Tab) 1 tab QAM PO 07/13/16 09:00 08/12/16 08:59 07/14/16 07:51 1 TAB Pantoprazole Sodium (Protonix Tab) 40 mg QAM PO 07/13/16 09:00 08/12/16 08:59 07/14/16 07:50 40 MG Guaifenesin (Mucinex Contr Rel Tab) 600 mg Q12 PO 07/13/16 21:00 08/12/16 20:59 07/14/16 07:49 600 MG Prednisone (PredniSONE TAB) 40 mg DAILY PO 07/14/16 09:00 07/19/16 08:59 07/14/16 07:49 40 MG Tramadol HCl (Ultram Tab) 25 mg Q6H PRN PO 07/13/16 03:00 08/12/16 02:59 Morphine Sulfate (MoRPHine SULFATE INJ) 4 mg Q6H PRN IV 07/13/16 03:00 07/27/16 02:59 Ondansetron HCl (Zofran Inj) 4 mg Q6H PRN IV 07/13/16 03:00 08/12/16 02:59 Lorazepam (Ativan Inj) 0.5 mg Q4H PRN IV 07/13/16 03:00 08/12/16 02:59 Insulin Glargine (Lantus Solostar Pen) 5 unit DAILY SC 07/14/16 09:00 08/13/16 08:59 07/14/16 07:48 5 UNIT Ipratropium [place] (Atrovent 0.02% 0.5MG/2.5ML Neb) 0.5 mg Q6R INH 07/13/16 09:00 08/12/16 08:59 07/14/16 07:18 0.5 MG Levalbuterol (Xopenex 1.25MG/ 0.5ML Neb) 1.25 mg Q6R INH 07/13/16 09:00 08/12/16 08:59 07/14/16 07:18 1.25 MG Ipratropium [place] (Atrovent 0.02% 0.5MG/2.5ML Neb) 0.5 mg Q4H PRN INH 07/13/16 03:45 08/12/16 03:44 Levalbuterol 1.25 mg 1.25 mg Q4H PRN INH 07/13/16 03:45 08/12/16 03:44 Cefepime HCl/ Dextrose (Maxipime IV/D5 100ml) 112.5 ml @ 200 mls/hr Q8H IV 07/13/16 17:00 07/20/16 16:59 07/14/16 08:29 200 MLS/HR Heparin Sodium (Porcine) (Heparin 100 Unit/ml 5ml Flush) 5 ml PRN PRN IV 07/14/16 01:00 08/13/16 00:59 07/14/16 06:58 5 ML I & O: 24-Hour Column 07/14/16 07:59 Intake Total 2486 ml Output Total 1250 ml Balance 1236 ml Vital Signs: Date Time Temp Pulse Resp B/P Pulse Ox O2 Delivery O2 Flow Rate FiO2 07/14/16 08:00 Nasal Cannula 4.0 07/14/16 07:18 113 18 98 Nasal Cannula 4.0 07/14/16 06:48 36.7 100 22 146/79 91 4.0 07/14/16 02:54 92 18 95 Nasal Cannula 4.0 07/14/16 00:18 36.7 93 20 147/90 95 Room Air 07/14/16 00:00 94 Nasal Cannula 4.0 07/13/16 19:22 99 18 94 Nasal Cannula 4.0 07/13/16 16:05 93 Nasal Cannula 4.0 07/13/16 15:00 36.7 89 18 127/82 93 Nasal Cannula 4.0 07/13/16 14:20 109 20 95 Nasal Cannula 4.0 Laboratory Results: Last 24 Hours Test 07/13/16 16:20 07/13/16 16:33 07/13/16 20:22 07/14/16 05:50 Influenza Type A (RT-PCR) Neg for Influ A Influenza Type A Antigen Neg for Influ A Influenza Type B Antigen Neg for Influ B Influenza Type B (RT-PCR) Neg for Influ B Bedside Glucose 124 mg/dl 146 mg/dl White Blood Count 5.90 K/uL Red Blood Count 3.53 M/uL Hemoglobin 9.4 g/dL Hematocrit 30.1 % Mean Corpuscular Volume 85.3 fL Mean Corpuscular Hemoglobin 26.6 pg Mean Corpuscular Hemoglobin Concent 31.2 g/dl RDW Standard Deviation 44.6 fL RDW Coefficient of Variation 14.3 % Platelet Count 174 K/uL Mean Platelet Volume 9.4 fL Sodium Level 141 mmol/L Potassium Level 3.7 mmol/L Chloride Level 104 mmol/L Carbon Dioxide Level 33 mmol/L Anion Gap 4.0 mmol/L Blood Urea Nitrogen 12 mg/dl Creatinine 1.00 mg/dl Est Creatinine Clear Calc Drug Dose 75.1 ml/min Estimated GFR () 74.0 Estimated GFR (Non- 63.8 BUN/Creatinine Ratio 12.3 Random Glucose 99 mg/dl Calcium Level 8.8 mg/dl Test 07/14/16 07:34 07/14/16 11:07 Bedside Glucose 103 mg/dl 195 mg/dl
--- NOTE | 2016-07-14 16:04 | DIAGNOSTIC IMAGING REPORT ---
SINUS CT WITHOUT CONTRAST CLINICAL HISTORY: Chronic sinusitis. COMPARISON STUDY: Sinus CT May 18, 2015. Technique: Helical axial images of the sinuses were obtained without IV contrast. Coronal reformats were viewed. CT DOSE: 552.63 mGy.cm FINDINGS: Visualized portions of the intracranial contents are unremarkable on this unenhanced exam. There is no fluid within the mastoid air cells. There is no fluid within the middle ears. There are no areas of bony destruction. No mass is identified within the nasal cavity or the sinuses. There are post surgical findings consistent with partial ethmoidectomies as well as resection of the medial cornelius of both maxillary sinuses. There is mild mucosal thickening within the sinuses with tiny air-fluid levels within the bilateral maxillary sinuses and moderate mucosal thickening of the ethmoid sinuses. The left sphenoethmoidal recess is narrowed by mucosal thickening. IMPRESSION: 1. Mild mucosal thickening within the sinuses, most evident within the frontal and ethmoid sinuses. 2. Postsurgical findings within the sinuses, as described above. 3. No bony destruction. 4. Tiny air-fluid levels within the bilateral maxillary sinuses. Electronically signed by: Norberto Reeves M.D. 07/14/2016 4:03 PM Dictated Date/Time: 07/14/2016 3:59 PM
[2016-07-14] MEDS: SULFAMETHOXAZOLE/TRIMETHOPRIM DS 800/160MG TAB PO SCH (16:28)
[2016-07-14] MEDS: TRAMADOL HCL 50 MG TAB PO PRN (23:13)
[2016-07-15] VITALS (11 sets, daily range): BP systolic 128–139; BP diastolic 78–85; PULSE 88–102; TEMP 36.7–36.8; O2SAT 92–98
[2016-07-15] MEDS: CEFEPIME IV 2,000 MG in DEXTROSE 5% 100ML 100 ML IV SCH ×3 (01:21→17:20)
[2016-07-15] MEDS: LEVALBUTEROL 1.25MG/0.5ML NEB INH SCH ×4 (02:40→19:10)
[2016-07-15] MEDS: IPRATROPIUM BROMIDE NEB SOLN 0.02% 2.5 ML VIAL INH SCH ×4 (02:40→19:10)
[2016-07-15] MEDS: INSULIN ASPART 100 UNITS/ML 3 ML PEN SC SCH ×4 (08:39→20:23)
[2016-07-15] MEDS: GUAIFENESIN 600 MG TABCR PO SCH ×2 (08:40→20:24)
[2016-07-15] MEDS: SULFAMETHOXAZOLE/TRIMETHOPRIM DS 800/160MG TAB PO SCH ×2 (08:40→20:25)
[2016-07-15] MEDS: FERROUS SULFATE 325 MG TAB PO SCH (08:40)
[2016-07-15] MEDS: METOPROLOL TARTRATE 25 MG TAB PO SCH ×2 (08:40→20:24)
[2016-07-15] MEDS: ASPIRIN 81 MG ECTAB PO SCH (08:40)
[2016-07-15] MEDS: MULTIVITAMIN TAB PO SCH (08:41)
[2016-07-15] MEDS: ENOXAPARIN 40 MG/0.4 ML SYR SQ SCH (08:41)
[2016-07-15] MEDS: PANTOprazole SOD 40 MG TAB PO SCH (08:42)
[2016-07-15] MEDS: FLUTICASONE PROPIONATE NA SPR 16 GM BTL NAE SCH (08:42)
[2016-07-15] MEDS: INSULIN GLARGINE SOLOSTAR 100 UNITS/ML 3 ML PEN SC SCH (08:45)
--- NOTE | 2016-07-15 10:14 | Progress Note ---
Internal Med Progress Note Date of Service: Jul 15, 2016. Provider Documentation: SUBJECTIVE: Patient is feeling better today. SOB has improved and feels like she is near her baseline. Cough with no sputum production No chest pain, fever, chills, nausea, vomiting, abdominal pain. On 3 L oxygen OBJECTIVE: Vital Signs-as noted below Exam: General-AAOX3, no distress Neck-Supple, No accessory muscles of respiration Lungs-AEBE decreased, mild wheezing present- Improved Heart-S1, S2 normal, no murmurs Abdomen-Soft, non tender, non distended, BS present Extremities-No edema Lab data as noted below. ASSESSMENT & PLAN: ASSESSMENT AND PLAN : ACUTE ON CHRONIC HYPOXEMIC HYPERCAPNIC RESPIRATORY FAILURE: Resolved -Secondary to Bronchiectasis/Probable infection- pneumonia Has had pulmonary infection with Stenotrophomonas, Pseudomonas, MSSA in past -Antibiotics changed from doxycycline to IV Cefepime q 8 hours/Bactrim per pulmonary recommendation on 07/13/16 -Nebs QID -Continue with prednisone taper -Work up- CXR, CT chest - tree bud pattern, cystic changes, bronchiectasis, possible inflammatory /infectious process; CT sinuses- Mild mucosal thickening- ethmoid/frontal sinuses, Fluid -air levels in b/l maxillary sinuses -Appreciate pulmonary inputs HX OF BRONCHIECTASIS/COPD : Possible etiology considered: CVID. Has been to many medical centers in past, last year [facility]. Diagnosed with hypogammaglobinemia Receives immunoglobulin rx once every month -IGG/IGA/IGM levels ordered per pulmonary- Follow up -Appreciate inputs. Will need follow up outpatient. Will need repeat PFTs outpatient per pulmonary. HYPOGAMMAGLOBINEMIA -Possible CVID. -Receives rx once in a month -IGG/IGA/IGM levels ordered per pulmonary- Follow up HTN -Stable -Monitor STEROID INDUCED HYPERGLYCEMIA -Well-controlled as of recent HgA1c of 6.8 in May 2016. CHRONIC ANEMIA: Hb at baseline -Monitor H & H DVT prophylaxis, Lovenox subQ. Full code DISPOSITION' Expected discharge home when stable If able to ambulate and back to baseline, may consider discharge after discussion with pulmonary Vital Signs: Date Time Temp Pulse Resp B/P Pulse Ox O2 Delivery O2 Flow Rate FiO2 07/15/16 07:32 36.7 95 18 131/84 96 Nasal Cannula 4.0 07/15/16 07:17 88 18 97 Nasal Cannula 4.0 07/15/16 02:40 88 18 97 Nasal Cannula 4.0 07/15/16 00:00 Nasal Cannula 4.0 07/14/16 23:11 36.8 101 20 150/91 95 Nasal Cannula 4.0 07/14/16 20:00 Nasal Cannula 4.0 07/14/16 19:19 106 18 94 Nasal Cannula 4.0 07/14/16 16:14 Nasal Cannula 4.0 07/14/16 14:50 36.8 98 20 144/82 94 Nasal Cannula 3.0 07/14/16 13:54 102 18 96 Nasal Cannula 3.0 Lab Results: Results Past 24 Hours Test 07/14/16 11:07 07/14/16 16:11 07/14/16 19:36 07/15/16 07:10 Range/Units Bedside Glucose 195 173 131 101 70-90 mg/dl
--- NOTE | 2016-07-15 11:04 | Pulmonology Progress Note ---
Pulmonary Progress Note Date of Service Jul 15, 2016. Attending Dr hair Subjective Feeling generally improved from admission. Some right shoulder pain (h/o necrosis and tendon tear). Reports h/o tachycardia associated with hypoxia when she is sick. No sympoms at rest. No current palpitations. NO fevers or chills. Objective 55-yo female admitted through [facility] 07/13 with acute hypoxic hypercarbic respiratory failure. On admission: CT Chest: mildly enlarged mediastinal lymph nodes - non pathologic. Diffuse tree-in-bud changes - No PE. CT Sinus: mild mucosal thickening of the ethmoid and frontal sinus and air-fluid levels in bilateral maxillary sinus She was treated with antibiotic (current cefepime and bactrim), steroid, and bronchodilators. PMHx includes bronchiectasis (+ vibration vest), frequent hospitalizations for acute on chronic resp failure (01/02 - 01/11/14, 01/24/14 - 01/28/14, - 01/22, 06/19/14 - 06/24/14, 07/15/14 - 07/19/14, 08/15/14 - 08/20/14, 09/20/14 - 09/23/14 , 10/23/14 - 10/26/14), multiple /bronchoscopies (+ Stenotrophomonas maltophilia: 01/08/14 & 01/02/15 & 10/21/14, 11/19/14, Haemophilus influenzae: 06/19/14, coryne. pseudodiphtheriticum 08/15/14 and staphylococcus 11/19/14 ), O2 dependence 2-3LPM, sleep apnea (no CPAP + nocturnal O2), pulmonary nodules, hypogammaglobinemia, bilateral eustachian tube dysfunction, HLD, steroid induced diabetes. Recent Events: - Ambulatory tachycardia in 140s with desaturation to mid 80 % on 4LPM per respiratory - 95-97% 4LPM - Afebrile, HD stable Physical Exam: Constitutional: WD female sitting up in bed - no acute distress Head: + facial symmetry Eyes: EOMi, PERRLA, dysconjugate gaze. Corrective lenses Mouth: Moist mucous membranes. Several missing teeth Respiratory: 4LPM via NC. NO cough on exam. Bilateral wheeze and crackles. Chest: right port -dressed CV: RRR, no MRG. Warm and perfused peripherally MSK/Extremities: moving and developed symmetrically. Neurologic A&O. Excellent data recall. Cooperative and appropriate affect. Assessment & Plan 55-year-old female with chronic bronchiectasis/cystic changes with acute on chronic respiratory insufficiency: #1 ID:Bactrim DS 800/160 twice a day & Cefepime #2 Hypogammaglobulinemia: IGG levels pending #3 COPD/chronic bronchiectasis - exacerbation - Repeat OP PFTs - Historically large mucoid burden on prior brochoscopies - Bronchoscopy anticipated for 07/[address] Hair secondary to episode of tachycardia, potentially compensatory with underlying exacerbation - would request cardiology evaluation prior to moving forward with procedure. #4 Chronic Sinusitis: ENT follow-up as outpatient #5 Hypoxia: - Stable 4LPM - above baseline 2-3LPM, tachycardia with hypoxia during walk this AM Case and patient reviewed and agree with plan. Data Medications: Current Inpatient Medications Medications (Trade) Dose Ordered Sig/Man Route Start Time Stop Time Status Last Admin Dose Admin Ioversol (Optiray 320) 100 ml UD PRN IV 07/12/16 23:45 07/16/16 23:44 Enoxaparin Sodium (Lovenox Inj) 40 mg Q24H SQ 07/13/16 09:00 08/12/16 08:59 07/15/16 08:41 40 MG Acetaminophen (Tylenol Tab) 650 mg Q4H PRN PO 07/13/16 03:00 08/12/16 02:59 07/14/16 03:24 650 MG Insulin Aspart (novoLOG ASPART) SLIDING SCALE If C... ACHS SC 07/13/16 06:30 08/12/16 06:59 07/14/16 11:48 1 UNITS Glucose (Glucose 40% Gel) 15-30 GRAMS 15 GRAMS... UD PRN PO 07/13/16 03:00 08/12/16 02:59 Glucose (Glucose Chew Tab) 4-8 Tablets 4 Tabl... UD PRN PO 07/13/16 03:00 08/12/16 02:59 Dextrose (Dextrose 50% 50ML Syringe) 25-50ML OF 50% DW IV FOR... UD PRN IV 07/13/16 03:00 08/12/16 02:59 Glucagon (Glucagon Inj) 1 mg UD PRN SQ 07/13/16 03:00 08/12/16 02:59 Aspirin (Ecotrin Tab) 81 mg QAM PO 07/13/16 09:00 08/12/16 08:59 07/15/16 08:40 81 MG Ferrous Sulfate (Feosol Tab) 325 mg DAILY PO 07/13/16 09:00 08/12/16 08:59 07/15/16 08:40 325 MG Folic Acid (Folvite Tab) 1 mg QAM PO 07/13/16 09:00 08/12/16 08:59 07/15/16 08:41 1 MG Metoprolol Tartrate (Lopressor Tab) 50 mg BID PO 07/13/16 09:00 08/12/16 08:59 07/15/16 08:40 50 MG Multivitamins (Multivitamin Tab) 1 tab QAM PO 07/13/16 09:00 08/12/16 08:59 07/15/16 08:41 1 TAB Pantoprazole Sodium (Protonix Tab) 40 mg QAM PO 07/13/16 09:00 08/12/16 08:59 07/15/16 08:42 40 MG Guaifenesin (Mucinex Contr Rel Tab) 600 mg Q12 PO 07/13/16 21:00 08/12/16 20:59 07/15/16 08:40 600 MG Prednisone (PredniSONE TAB) 40 mg DAILY PO 07/14/16 09:00 07/19/16 08:59 07/15/16 08:41 40 MG Tramadol HCl (Ultram Tab) 25 mg Q6H PRN PO 07/13/16 03:00 08/12/16 02:59 07/14/16 23:13 25 MG Morphine Sulfate (MoRPHine SULFATE INJ) 4 mg Q6H PRN IV 07/13/16 03:00 07/27/16 02:59 Ondansetron HCl (Zofran Inj) 4 mg Q6H PRN IV 07/13/16 03:00 08/12/16 02:59 Lorazepam (Ativan Inj) 0.5 mg Q4H PRN IV 07/13/16 03:00 08/12/16 02:59 Insulin Glargine (Lantus Solostar Pen) 5 unit DAILY SC 07/14/16 09:00 08/13/16 08:59 07/15/16 08:45 5 UNIT Ipratropium [place] (Atrovent 0.02% 0.5MG/2.5ML Neb) 0.5 mg Q6R INH 07/13/16 09:00 08/12/16 08:59 07/15/16 07:17 0.5 MG Levalbuterol (Xopenex 1.25MG/ 0.5ML Neb) 1.25 mg Q6R INH 07/13/16 09:00 08/12/16 08:59 07/15/16 07:17 1.25 MG Ipratropium [place] (Atrovent 0.02% 0.5MG/2.5ML Neb) 0.5 mg Q4H PRN INH 07/13/16 03:45 08/12/16 03:44 Levalbuterol 1.25 mg 1.25 mg Q4H PRN INH 07/13/16 03:45 08/12/16 03:44 Cefepime HCl/ Dextrose (Maxipime IV/D5 100ml) 112.5 ml @ 200 mls/hr Q8H IV 07/13/16 17:00 07/20/16 16:59 07/15/16 08:39 200 MLS/HR Heparin Sodium (Porcine) (Heparin 100 Unit/ml 5ml Flush) 5 ml PRN PRN IV 07/14/16 01:00 08/13/16 00:59 07/15/16 09:39 5 ML Fluticasone Propionate (Flonase Nasal [place]) 1 sprays DAILY [place] 07/15/16 09:00 08/14/16 08:59 07/15/16 08:42 1 SPRAYS Trimethoprim/ Sulfamethoxazole (Septra Ds 800/ 160MG Tab) 1 tab Q12 PO 07/14/16 16:00 07/19/16 20:59 07/15/16 08:40 1 TAB I & O: 24-Hour Column 07/15/16 08:00 Intake Total 1010 ml Output Total 4350 ml Balance -3340 ml Vital Signs: Date Time Temp Pulse Resp B/P Pulse Ox O2 Delivery O2 Flow Rate FiO2 07/15/16 08:00 Nasal Cannula 4.0 07/15/16 07:32 36.7 95 18 131/84 96 Nasal Cannula 4.0 07/15/16 07:17 88 18 97 Nasal Cannula 4.0 07/15/16 02:40 88 18 97 Nasal Cannula 4.0 07/15/16 00:00 Nasal Cannula 4.0 07/14/16 23:11 36.8 101 20 150/91 95 Nasal Cannula 4.0 07/14/16 20:00 Nasal Cannula 4.0 07/14/16 19:19 106 18 94 Nasal Cannula 4.0 07/14/16 16:14 Nasal Cannula 4.0 07/14/16 14:50 36.8 98 20 144/82 94 Nasal Cannula 3.0 07/14/16 13:54 102 18 96 Nasal Cannula 3.0 Laboratory Results: Last 24 Hours Test 07/14/16 11:07 07/14/16 16:11 07/14/16 19:36 07/15/16 07:10 Bedside Glucose 195 mg/dl 173 mg/dl 131 mg/dl 101 mg/dl Test 07/15/16 10:13
[2016-07-15 12:17] LABS: IMMUNOGLOBULN M 59.7 mg/dL (40-230)
--- NOTE | 2016-07-15 18:32 | CARDIOLOGY CONSULTATION ---
DATE OF CONSULTATION: 07/15/2016 REFERRING PHYSICIAN: Dr. Daisy Whitney. REASON FOR CONSULTATION: Preoperative evaluation prior to bronchoscopy, tachycardia. HISTORY OF PRESENT ILLNESS: Ms. Pollock is a 55-year-old female who presented to the Emergency Department on 07/12/2016 with shortness of breath and tachycardia. The patient has a history of bronchiectasis and multiple previous respiratory infections. She was most recently [place] [facility] on [place] 22 for similar symptoms. At that time she was transferred from [facility] to [facility] due to concern regarding cardiac etiology of her symptoms. At [facility] she was ruled out for acute coronary syndrome. She was seen by thoracic medicine prescribed antibiotics, steroids, nebulizer treatments. At that time her heart rate was reportedly as high as 160 beats per minute with associated chest tightness. She states these symptoms have been intermittent for several years. In general, she notes elevated heart rates when she exerts herself. She wears 2-4 liters of supplemental oxygen chronically. Since admission here, she has been improving. There are reported elevated heart rates with ambulation; however, she is not on telemetry. She is currently resting comfortably without conversational dyspnea or chest discomfort. Prior resting 2D transthoracic echos have demonstrated normal left ventricular systolic function, normal wall motion as well as presence of prior atrial septal defect repair. She denies any personal history of coronary artery disease, congestive heart failure, rheumatic fever as a child. Cardiac risk factors listed below. Offers no other complaints at this time. REVIEW OF SYSTEMS: The pertinent positives are noted above. A comprehensive 10-system review is otherwise negative. PAST MEDICAL HISTORY: 1. Atrial septal defect status post open repair during her 20s. 2. Chronic sinus tachycardia. 3. Bronchiectasis. 4. Osteoporosis. 5. Anxiety, depression. 6. GERD. 7. Obstructive sleep apnea. 8. Hypertension. 9. Obesity. 10. Dyslipidemia. 11. C. diff colitis. 12. Coag negative staph bacteremia. 13. Chronic anemia. 14. 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 PAST SURGICAL HISTORY: 1. Atrial septal defect, 1985 or 1986. 2. Hysterectomy. 3. Tonsillectomy. 4. Sinus surgery, multiple bronchoscopies. FAMILY HISTORY: Notable for cervical and ovarian carcinoma as well as abdominal aortic aneurysm. No family history of premature CAD or sudden cardiac . SOCIAL HISTORY: She is a lifelong nonsmoker. Denies any drug use. She is single. ALLERGIES: ALBUTEROL. CURRENT MEDICATIONS: 1. Flonase daily. 2. Septra DS 800/160 twice daily. 3. Prednisone 40 mg daily. 4. Lantus 5 units subcutaneous daily. 5. Mucinex 600 mg q. 12. 6. Cefepime q. 8. 7. Lovenox 40 subQ daily. 8. Aspirin 81 mg daily. 9. Ferrous sulfate 325 daily. 10. Folic acid 1 mg daily. 11. Metoprolol tartrate 50 mg twice daily. 12. Multivitamin daily. 13. Protonix daily. 14. Xopenex q. 6. 15. Tramadol 25 q. 6 as needed. 16. Morphine 4 mg q. 6 as needed. 17. Zofran q. 4-6 as needed. ECG: ECG demonstrates sinus rhythm with an incomplete right bundle-branch block, anterior ST-T-wave abnormality, consider ischemia; ECG not significantly changed when compared to prior tracings. LABORATORY DATA: White blood cell count 5.90, hemoglobin is 9.4, platelet count is 174. INR is 1.0. Sodium is 141, potassium 3.7, chloride 104, CO2 is 33, BUN is 12, creatinine is 1.00. Glucose is 103. Point of care troponin on admission was undetectable. CTA of the chest performed on admission, report stating no pulmonary embolus, extensive bilateral bronchiectatic changes, diffuse bilateral tree-in-bud type opacities, inflammatory process favored. Atypical mycobacterial infection must be considered. Mediastinal lymphadenopathy. PHYSICAL EXAMINATION: VITAL SIGNS: Temperature is 36.8 degrees centigrade, pulse is 92 beats per minute and regular, respiratory rate is 20 breaths per minute, blood pressure 139/85. SaO2 is 96% on 4 liters. GENERAL: Obese, chronically ill, no acute distress. HEENT: Mucous membranes are moist. No scleral icterus. Conjunctivae are pink. NECK: Supple without JVD or HJR. No carotid bruit. HEART: Regular with a normal S1 and S2. There is no murmur, rub, or gallop. LUNGS: Demonstrate scattered rhonchi with end-expiratory wheezing. ABDOMEN: Obese and nontender. No rebound or guarding. Normal bowel sounds. EXTREMITIES: Warm and dry without clubbing, cyanosis, or edema. NEUROLOGIC: Demonstrates no focal motor deficit. Cranial nerves are grossly intact. FINAL IMPRESSION: 1. A 55-year-old female with chronic sinus tachycardia. I suspect it is related to her underlying chronic respiratory insufficiency, chronic hypoxia, and multiple medications that can further precipitate tachycardia, including inhaled bronchodilators, and corticosteroids. Upon review of the records, patient's elevated heart rate has been noted on multiple prior hospitalizations. 2. Chronic abnormal ECG with anterolateral ST changes, unchanged when compared to ECGs dating back to 2012. 3. Acute on chronic respiratory failure due to underlying bronchiectasis. 4. History of atrial septal defect status post repair in 1985 or 1986. PLAN AND RECOMMENDATIONS: The patient will continue her oral beta-kleber, metoprolol 50 mg every 12 hours. I have ordered a repeat troponin as well as repeat resting 2D transthoracic echo. The patient's case was discussed with the hospitalist service. The patient will be transferred to telemetry for monitoring of heart rate. Other cardiovascular medications including aspirin will be continued as previously ordered. Her antibiotics, nebulizer treatments, and corticosteroids will be managed per the pulmonary service. Thank you for allowing me to take part in the care of your patient.
[2016-07-16] VITALS (8 sets, daily range): BP systolic 111–124; BP diastolic 69–80; PULSE 75–120; TEMP 36.6–36.7; O2SAT 90–98
[2016-07-16] MEDS: CEFEPIME IV 2,000 MG in DEXTROSE 5% 100ML 100 ML IV SCH ×2 (01:02→08:19)
[2016-07-16] MEDS: IPRATROPIUM BROMIDE NEB SOLN 0.02% 2.5 ML VIAL INH SCH ×3 (01:53→13:54)
[2016-07-16] MEDS: LEVALBUTEROL 1.25MG/0.5ML NEB INH SCH ×3 (01:54→13:54)
[2016-07-16] MEDS: INSULIN ASPART 100 UNITS/ML 3 ML PEN SC SCH ×3 (08:09→16:30)
[2016-07-16] MEDS: ASPIRIN 81 MG ECTAB PO SCH (08:10)
[2016-07-16] MEDS: GUAIFENESIN 600 MG TABCR PO SCH (08:10)
[2016-07-16] MEDS: PANTOprazole SOD 40 MG TAB PO SCH (08:10)
[2016-07-16] MEDS: SULFAMETHOXAZOLE/TRIMETHOPRIM DS 800/160MG TAB PO SCH (08:10)
[2016-07-16] MEDS: METOPROLOL TARTRATE 25 MG TAB PO SCH (08:10)
[2016-07-16] MEDS: FERROUS SULFATE 325 MG TAB PO SCH (08:10)
[2016-07-16] MEDS: MULTIVITAMIN TAB PO SCH (08:10)
[2016-07-16] MEDS: INSULIN GLARGINE SOLOSTAR 100 UNITS/ML 3 ML PEN SC SCH (08:12)
[2016-07-16] MEDS: FLUTICASONE PROPIONATE NA SPR 16 GM BTL NAE SCH (08:14)
[2016-07-16] MEDS: ENOXAPARIN 40 MG/0.4 ML SYR SQ SCH (08:14)
--- NOTE | 2016-07-16 09:29 | Progress Note ---
Internal Med Progress Note Date of Service: Jul 16, 2016. Provider Documentation: SUBJECTIVE: Patient is feeling better today. SOB has improved and feels like she is near her baseline. Cough with no sputum production No chest pain, fever, chills, nausea, vomiting, abdominal pain. Had HR going up to 140s when she ambulated. Denies any palpitations. On 3 L oxygen Tele- NSR with no events OBJECTIVE: Vital Signs-as noted below Exam: General-AAOX3, no distress Neck-Supple, No accessory muscles of respiration Lungs-AEBE decreased, mild wheezing present- Improved Heart-S1, S2 normal, no murmurs Abdomen-Soft, non tender, non distended, BS present Extremities-No edema Lab data as noted below. ASSESSMENT & PLAN: ASSESSMENT AND PLAN : ACUTE ON CHRONIC HYPOXEMIC HYPERCAPNIC RESPIRATORY FAILURE: Resolved -Secondary to Bronchiectasis/Probable infection- pneumonia Has had pulmonary infection with Stenotrophomonas, Pseudomonas, MSSA in past -Antibiotics changed from doxycycline to IV Cefepime q 8 hours/Bactrim per pulmonary recommendation on 07/13/16 (Day4) -Nebs QID -Continue with prednisone taper -Work up- CXR, CT chest - tree bud pattern, cystic changes, bronchiectasis, possible inflammatory /infectious process; CT sinuses- Mild mucosal thickening- ethmoid/frontal sinuses, Fluid -air levels in b/l maxillary sinuses -Appreciate pulmonary inputs HX OF BRONCHIECTASIS/COPD : Possible etiology considered: CVID. Has been to many medical centers in past, last year [facility]. Diagnosed with hypogammaglobinemia Receives immunoglobulin rx once every month -Plan is for bronchoscopy outpatient -IGG/IGA/IGM levels ordered per pulmonary- normal -Appreciate inputs. Will need follow up outpatient. Will need repeat PFTs outpatient per pulmonary. TACHYCARDIA -Patient has had issues with tachycardia especially while ambulating. Had her HR go up to 140s while ambulating -Does have chronic pulmonary issues- hypoxia, COPD/Bronchiectasis, Nebulizers which could contribute. Has had multiple evaluations for the same in past. -EKG- Chronic anterolateral ST changes, no new changes, Troponin x 1 neg, Echo ordered- follow up -Appreciate cardiology inputs. HYPOGAMMAGLOBINEMIA -Possible CVID. -Receives rx once in a month -IGG/IGA/IGM levels ordered per pulmonary- Normal HTN -Stable -Monitor STEROID INDUCED HYPERGLYCEMIA -Well-controlled as of recent HgA1c of 6.8 in May 2016. CHRONIC ANEMIA: Hb at baseline -Monitor H & H DVT prophylaxis, Lovenox subQ. Full code DISPOSITION' Expected discharge home when stable. Eager to be discharged. Will discuss with cardiology, pulmonary Vital Signs: Date Time Temp Pulse Resp B/P Pulse Ox O2 Delivery O2 Flow Rate FiO2 07/16/16 08:03 36.6 90 20 111/69 95 07/16/16 07:30 95 Nasal Cannula 4.0 07/16/16 07:01 80 18 95 Nasal Cannula 3.0 07/16/16 04:00 Nasal Cannula 4.0 07/16/16 01:54 75 18 98 Nasal Cannula 3.0 07/16/16 00:00 Nasal Cannula 4.0 07/15/16 23:21 36.8 93 18 128/84 98 4.0 07/15/16 20:28 36.8 93 18 134/78 95 Nasal Cannula 4.0 07/15/16 20:00 98 Nasal Cannula 4.0 07/15/16 19:10 89 18 95 Room Air 07/15/16 18:49 36.7 102 20 92 4.0 07/15/16 18:40 36.7 102 20 130/82 92 Nasal Cannula 4.0 07/15/16 15:29 Nasal Cannula 4.0 07/15/16 14:58 36.8 92 20 139/85 96 Nasal Cannula 4.0 07/15/16 14:22 91 18 95 Room Air Lab Results: Results Past 24 Hours Test 07/15/16 11:12 07/15/16 11:19 07/15/16 16:15 07/15/16 16:57 Range/Units Immunoglobulin G 1400.0 700-1600 mg/dL Immunoglobulin A 238.0 70-400 mg/dL Immunoglobulin M 59.7 40-230 mg/dL Bedside Glucose 162 180 70-90 mg/dl Troponin I < 0.015 0-0.045 ng/ml Test 07/15/16 20:14 07/16/16 05:55 07/16/16 07:46 Range/Units Bedside Glucose 152 97 70-90 mg/dl Creatinine 1.00 0.60-1.20 mg/dl Est Creatinine Clear Calc Drug Dose 68.9 ml/min Estimated GFR () 74.0 Estimated GFR (Non- 63.8
[2016-07-16 11:12] LABS: POTASSIUM 3.9 mmol/L (3.5-5.1)
[2016-07-16 11:13] LABS: MAGNESIUM 2.2 mg/dl (1.8-2.4)
--- NOTE | 2016-07-16 11:54 | Cardiology Follow-Up ---
Subjective General Date of Service: Jul 16, 2016. Pt evaluation today including: conversation w/ patient, physical exam, chart review, lab review, review of studies, conversation w/ client insights consultant, review of inpatient medication list History of Present Illness The patient is a 55 year old female seen in follow-up. Denies chest discomfort or palpitations. Short patsy of paroxysmal supraventricular tachycardia recorded at approximately 5:30 AM. No associated symptoms. Otherwise heart rate is within acceptable range at rest. Troponins are undetectable. Denies orthopnea, PND, or lower edema. No new complaints this time. Allergies Coded Allergies: Albuterol (Verified Allergy, Mild, CHEST PAIN, 07/12/16) PT STATES "IF TAKE TOO MUCH DEVELOPS CHEST PAIN". TOLERATE LEVALBUTEROL 04/2015 Social History Smoking Status: Never Smoker Hx Tobacco Use In Past Year?: No Hx Alcohol Use - Type And Amou: No Hx Substance Use - Type And Am: No Problem List Medical Problems: (1) Atrial fibrillation with rapid ventricular response Status: Acute (2) Atypical pneumonia Status: Acute (3) Bronchiectasis Status: Acute (4) Chronic lung disease Status: Acute (5) Dyspnea Status: Acute (6) Fever Status: Acute (7) Fever Status: Acute (8) Hypoxia Status: Acute (9) PNA (pneumonia) Status: Acute (10) PNA (pneumonia) Status: Acute (11) Pneumonia Status: Acute (12) Sepsis Status: Acute (13) SOB (shortness of breath) Status: Acute Review of Systems Respiratory: + cough, + dyspnea on exertion, + sputum, + wheezing, No dyspnea at rest, No hemoptysis, No shortness of breath Cardiac: No PND, No chest pain, No claudication, No edema, No orthopnea, No palpitations Physical Exam Vital Signs Last Vital Signs Documentation Date Time Temp Pulse Resp B/P Pulse Ox O2 Delivery O2 Flow Rate FiO2 07/16/16 08:03 36.6 90 20 111/69 95 07/16/16 07:30 Nasal Cannula 4.0 Physical Exam Constitutional: General Apperance: obese Level of Distress: chronically ill Ambulation: ambulating normally Head: normocephalic, atraumatic ENMT: normal ENT inspection Neck: supple, trachea midline Lungs: Auscultation: no rales/crackles, expiratory wheezing Cardiovascular: Heart Auscultation: RRR, normal S1, normal S2, no murmurs Peripheral Pulses: Radial Pulse: normal on the left, normal on the right Abdomen: Inspection & Palpation: soft, non-distended, no tenderness, guarding & rebound Extremities: no cyanosis, no edema, no clubbing, no ulcers Neurologic: Gait & Station: pertinent finding (no focal motor deficit) Cranial Nerves: grossly intact Assessment and Plan Assessment and Plan FINAL IMPRESSION: 1. Chronic sinus tachycardia -related to her underlying chronic respiratory insufficiency, chronic hypoxia,and multiple medications that can further precipitate tachycardia, including inhaled bronchodilators, and corticosteroids. 2. Brief patsy of paroxysmal superventricular tachycardia at rest without associated symptoms 3. Chronic abnormal ECG with anterolateral ST changes, unchanged when compared to ECGs dating back to 2011. -Cardiac enzymes undetectable -Repeat resting 2-D transthoracic echo pending 4. Acute on chronic respiratory failure due to underlying bronchiectasis. 5. History of atrial septal defect status post repair in 1985 or 1986. PLAN AND RECOMMENDATIONS: Repeat serum potassium and magnesium levels this AM. Continue oral beta kleber therapy, metoprolol 50 mg twice daily. Resting 2-D transthoracic echo will be results available. No other medication changes at this time. She will continue pulmonary medications per the direction of internal medicine and pulmonary medicine. No cardiovascular contraindication to bronchoscopy. Laboratory Results Last 24 Hours Test 07/15/16 16:15 07/15/16 16:57 07/15/16 20:14 07/16/16 05:55 Bedside Glucose 180 mg/dl 152 mg/dl Troponin I < 0.015 ng/ml < 0.015 ng/ml Potassium Level 3.9 mmol/L Creatinine 1.00 mg/dl Est Creatinine Clear Calc Drug Dose 68.9 ml/min Estimated GFR () 74.0 Estimated GFR (Non- 63.8 Magnesium Level 2.2 mg/dl Test 07/16/16 07:46 07/16/16 11:09 Bedside Glucose 97 mg/dl 176 mg/dl
[2016-07-16] MEDS: TRAMADOL HCL 50 MG TAB PO PRN (12:38)
--- NOTE | 2016-07-16 14:02 | PROGRESS NOTE ---
DATE: 07/16/2016 PROBLEM LIST: Includes: 1. Chronic bronchiectasis. 2. Chronic respiratory failure. 3. Hypogammaglobulinemia. SUBJECTIVE: The patient reports that she is actually feeling pretty good today. She states that her breathing is better. She states that she feels she is probably about 70-80% improved and feels that she could probably go home and do fairly well. Cardiology was in to see her and feel that she has chronic sinus tachycardia related to her chronic respiratory disease with no contraindication to bronchoscopy. The patient states she still is coughing, still is getting some mucus out, although the mucus is difficult to get out. Does not feel quite as short of breath, has no chest pain or chest discomfort, has no chest pressure or heaviness. Denies any other concerns or problems at this time. OBJECTIVE: GENERAL: The patient is a 55-year-old female sitting in bed, in no acute distress. She is alert and oriented x3. Mood is good. Affect is good. VITAL SIGNS: Temp 36.6, pulse 90, respiration 20, blood pressure is 111/69, pulse ox is 95% on 4 liters via nasal cannula. HEENT: Normocephalic, atraumatic. Pupils equal, round and reactive to light and accommodation. Extraocular movements are intact. [place] moist gingival and buccal mucosa. NECK: Supple. No mass. No adenopathy. No bruit. CHEST: The patient has some wheezing bilaterally. No rale or rhonchi noted. CARDIOVASCULAR: Regular rate and rhythm. No murmurs, gallops or rubs. ABDOMEN: Bowel sounds present. Abdomen soft, nontender. No guarding, rigidity or organomegaly. EXTREMITIES: There is no erythema. Trace edema bilaterally. No tenderness. No cyanosis or clubbing noted. NEUROLOGIC: Cranial nerves II-XII are intact. No focal deficit noted. No new lab data. No new radiologic data. IMPRESSION: This is a 55-year-old female with chronic bronchiectasis, who presented to [facility] with acute exacerbation of her chronic bronchiectasis/chronic obstructive pulmonary disease. At this time, she has had improvement. I think that in light of the patient's past and how she typically proceeds with her exacerbation of bronchiectasis, at some point in the not too distant future she will need bronchoscopy; however, if the patient would like to go home, I feel that she is stable enough, she can go home, and we can get this set up as an outpatient or if Dr. Villalta wants it can be done on Tuesday. Cardiology has given clearance for her to have bronchoscopy from a cardiac standpoint. If she is to go home, right now she is on oral prednisone, I would recommend that she stay on 40 mg until seen in the office. As far as antibiotic, she should continue Bactrim until she is seen in the office, continue her routine pulmonary toilet as well. If she is continued through the weekend and the procedure is done next week, then she will need to be made n.p.o. on prior evening as per protocol. If she does go home, would recommend that she be followed up in the middle or end of next week for reevaluation, this was discussed with her. Case reviewed and plan agreed with. ASHLEE
[2016-07-16] MEDS ORDERED: ALBINS NEB (16:06)
[2016-07-16] MEDS ORDERED: PRED20TA2 PO (16:06)
[2016-07-16] MEDS ORDERED: SULF-183 PO (16:06)
--- NOTE | 2016-07-16 16:08 | Discharge Instructions ---
Discharge Instructions Date of Service Jul 16, 2016. Admission Reason for Admission: Respiratory Failure, [id number] Discharge Discharge Diagnosis / Problem: 1. Acute bronchiectasis exacerbation Discharge Goals Goal(s): Improve disease control, Prevent Disease Progression Activity Recommendations Activity Limitations: resume your previous activity (as tolerated prior to admission) . Instructions / Follow-Up Instructions / Follow-Up MEDICATION CHANGES: 1. New medication; Prednisone 40 mg daily till further instructed by pulmonary 2. New medication; Bactrim as directed till further instructed by pulmonary FOLLOW UP 1. Follow up with Ivonne Esposito on 07/20/16 at 1:35 PM 2. Follow up with pulmonary , Dr Villalta next week as will need to schedule bronchoscopy Need outpatient Echocardiogram Current Hospital Diet Patient's current hospital diet: Diabetes Type 2 Diet, AHA Diet (Heart Healthy) Discharge Diet Recommended Diet: AHA Diet (Heart Healthy), Low Sodium Diet (2gm Na), Diabetes Type 2 Diet Pending Studies Studies pending at discharge: no Laboratory Results Hemoglobin A1c Test 05/25/16 05:40 Range/Units Estimated Average Glucose 148 mg/dl Hemoglobin A1c 6.8 H 4.5-5.6 % Medical Emergencies . Who to Call and When: Medical Emergencies: If at any time you feel your situation is an emergency, please call 911 immediately. . Non-Emergent Contact Non-Emergency issues call your: Primary Care Provider, [employer] . . "Provider Documentation" section prepared by Daisy hWitney. VTE Core Measure Inpt VTE Proph given/why not?: Unfractionated heparin SQ
--- NOTE | 2016-07-16 16:17 | Discharge Summary ---
Discharge Summary Date of Service Jul 16, 2016. Discharge Summary Admission Date: Jul 13, 2016 at 02:24 Discharge Date: Jul 16, 2016 Discharge Disposition: Home Principal Diagnosis: 1. Acute bronchiectasis/COPD exacerbation with infection 2. Palpitations with tachycardia episodes Secondary Diagnoses/Problems: 1. Hypogammaglobinemia 2. HTN 3. Chronic anemia 4. Steroid induced hyperglycemia Procedures: Tele monitoring CT chest CT sinuses CXR IV antibiotics Serial EKG Serial Troponin Consultations: Pulmonary Cardiology Pending Studies/Follow-Up: Instructions / Follow-Up Instructions / Follow-Up MEDICATION CHANGES: 1. New medication; Prednisone 40 mg daily till further instructed by pulmonary 2. New medication; Bactrim as directed till further instructed by pulmonary FOLLOW UP 1. Follow up with Ivonne Esposito on 07/20/16 at 1:35 PM 2. Follow up with pulmonary , Dr Villalta next week as will need to schedule bronchoscopy Need outpatient Echocardiogram Medication Reconciliation New Medications: Prednisone (Prednisone Tab) 20 Mg Tab 2 TAB PO DAILY for 10 Days, #20 TAB Take 40 mg daily till further instructed by pulmonary next week. Sulfamethoxazole-Trimethoprim (Smz-Tmp Ds) 1 Tab Tab 1 TAB PO Q12 for 10 Days, #20 TAB Changed Medications: Albuterol Sulf (Albuterol Sulfate) 2.5 Mg/3 Ml Nebu 3 ML NEB Q4H PRN for sob/wheezing for 10 Days (Changed from: DAILY) USE SALT SOLUTION IN NEBULIZER Continued Medications: Alendronate/Cholecalciferol (Fosamax+D 70MG/2800 Iu) 70 Mg Tab 1 TABLET PO WK TUESDAYS Aspirin (Aspirin Chewable) 81 Mg Chew 81 MG PO QAM, TAB Calcium Carbonate-Vitamin D W/ (Caltrate 600 Plus) 1 Tab Tab 1 TAB PO BID, TAB Cyanocobalamin (Vitamin B12) 1,000 Mcg Tab 1000 MCG PO DAILY Dextromethorphan-Guaifenesin (Mucinex Dm Maximum Streng) 1 Tab Tab 1 TAB PO BID PRN for Nasal Congestion Ferrous Sulfate (Ferrous Sulfate) 325 Mg Tab 325 MG PO DAILY Fluticasone Propionate (Nasal) (Flonase Allergy Relief) 50 Mcg/Act Spr 2 SPRY ESPERANZA QAM Folic Acid (Folic Acid) 1 Mg Tab 1 TAB PO QAM Insulin Aspart (Novolog Penfill) 100 Unit/Ml Inj SQ AC PER SLIDING SCALE Magnesium Oxide (Mg Supplement (Magnesium) 400 Mg Cap 400 MG PO DAILY Metoprolol Tartrate (Lopressor) 25 Mg Tab 50 MG PO BID, TAB Multiple Vitamin (Multivitamin) 1 Tab Tab 1 TAB PO QAM, TAB Oxygen (Oxygen) Gas 4 LITERS NA DAILY Pantoprazole (Protonix) 40 Mg Tab 40 MG PO QAM, TAB Discontinued Medications: Prednisone Tab (Prednisone) 10 Mg Tab 10 MG PO DAILY, TAB Admission Information HPI (per Admitting provider): HISTORY OF PRESENT ILLNESS: Medical history significant for chronic respiratory failure 2 to steroid dependent bronchiectasis on home O2, immunodeficiency as per records, hx CAD as per records, chronic anemia (baseline hemoglobin of 10), steroid-induced type 2 diabetes. Recent confinement last in May 2016 for right lower quadrant pain, of unclear etiology. Px noted dry cough symptoms the last few days. Denies aspiration. Denies fluid retention. No chest pain. Worsening shortness of breath. Noted to be hypoxemic at the Emergency Room. Px received Duoneb and Azithromycin at the ER for poss atypical pneumonia. Hospital Course ASSESSMENT AND PLAN : ACUTE ON CHRONIC HYPOXEMIC HYPERCAPNIC RESPIRATORY FAILURE: Resolved -Secondary to Bronchiectasis/COPD exacerbation/Probable infection- pneumonia Has had pulmonary infection with Stenotrophomonas, Pseudomonas, MSSA in past -Antibiotics changed from doxycycline to IV Cefepime q 8 hours/Bactrim per pulmonary recommendation on 07/13/16 (Day4). To continue with bactrim till evaluated by pulmonary during next appointment next week -Nebs QID -Continue with prednisone taper- 40 mg till further evaluated by pulmonary next week -Work up- CXR, CT chest - tree bud pattern, cystic changes, bronchiectasis, possible inflammatory /infectious process; CT sinuses- Mild mucosal thickening- ethmoid/frontal sinuses, Fluid -air levels in b/l maxillary sinuses -Plan is to do outpatient bronchoscopy per pulmonary -Appreciate pulmonary inputs HX OF BRONCHIECTASIS/COPD : Possible etiology considered: CVID. Has been to many medical centers in past, last year [facility]. Diagnosed with hypogammaglobinemia Receives immunoglobulin rx once every month -Plan is for bronchoscopy outpatient as above -IGG/IGA/IGM levels ordered per pulmonary- normal -Appreciate inputs. Will need repeat PFTs outpatient per pulmonary. BRIEF SALVOS OF TACHYCARDIA- Stable now, HR in range of 90s at rest -Had SVT brief patsy on telemetry -Patient has had issues with tachycardia especially while ambulating. Had her HR go up to 140s while ambulating. Has had multiple evaluations for the same in past. -Does have chronic pulmonary issues- hypoxia, COPD/Bronchiectasis, Nebulizers which could contribute. -EKG- Chronic anterolateral ST changes, no new changes, Troponin x2 neg, Echo to be done outpatient -Appreciate cardiology inputs. HYPOGAMMAGLOBINEMIA -Possible CVID. -Receives rx once in a month- continue -IGG/IGA/IGM levels ordered per pulmonary- Normal HTN -Stable -Monitor STEROID INDUCED HYPERGLYCEMIA -Well-controlled as of recent HgA1c of 6.8 in May 2016. CHRONIC ANEMIA: Hb at baseline DVT prophylaxis, Lovenox subQ. Full code DISPOSITION' Eager to be discharged Cleared for discharge to home by pulmonary, cardiology Okay to discharge home today with close follow up with pulmonary next week Total time spent on discharge = 38 minutes This includes examination of the patient, discharge planning, medication reconciliation, and communication with other providers. Discharge Instructions Activity Recommendations Activity Limitations: resume your previous activity (as tolerated prior to admission) . Instructions / Follow-Up Instructions / Follow-Up MEDICATION CHANGES: 1. New medication; Prednisone 40 mg daily till further instructed by pulmonary 2. New medication; Bactrim as directed till further instructed by pulmonary FOLLOW UP 1. Follow up with Ivonne Esposito on 07/20/16 at 1:35 PM 2. Follow up with pulmonary , Dr Villalta next week as will need to schedule bronchoscopy Need outpatient Echocardiogram Current Hospital Diet Patient's current hospital diet: Diabetes Type 2 Diet, AHA Diet (Heart Healthy) Discharge Diet Recommended Diet: AHA Diet (Heart Healthy), Low Sodium Diet (2gm Na), Diabetes Type 2 Diet Pending Studies Studies pending at discharge: no Laboratory Results Hemoglobin A1c Test 05/25/16 05:40 Range/Units Estimated Average Glucose 148 mg/dl Hemoglobin A1c 6.8 H 4.5-5.6 % Medical Emergencies . Who to Call and When: Medical Emergencies: If at any time you feel your situation is an emergency, please call 911 immediately. . Non-Emergent Contact Non-Emergency issues call your: Primary Care Provider, Head Of Human Resources . . "Provider Documentation" section prepared by Daisy Whitney. VTE Core Measure Inpt VTE Proph given/why not?: Unfractionated heparin SQ
[2016-10-05] MEDS ORDERED: PRD10 PO (17:23)
[2016-10-05] MEDS ORDERED: MISCCAP80 PO (17:25)
[2016-10-05] MEDS ORDERED: AMOX1TAB43 PO (17:25)
[2016-11-02] MEDS ORDERED: METO50TA16 PO (09:08)
[2016-11-02] MEDS ORDERED: probiotic PO (09:09)
[2016-12-04] MEDS ORDERED: PRED10TA PO (12:50)
[2017-01-20] MEDS ORDERED: PRED10TA PO (14:26)
[2017-01-20] MEDS ORDERED: SULF-183 PO (14:26)
== END 2016-07-16 17:50 | disposition home health service (06) | DRG 189 ==
LOC: ENRESERVTM → ENRESERVDT → C.EDB 20:55 → C.MS2W 07-13 02:24 → C.MED 07-15 16:35
PROVIDERS: ADMIT Internal Medicine; ATTEND Internal Medicine
DX: J96.21 Acute and chronic respiratory failure with hypoxia (principal); J18.9 Pneumonia, unspecified organism; J47.1 Bronchiectasis with (acute) exacerbation; D80.1 Nonfamilial hypogammaglobulinemia; I47.1 Supraventricular tachycardia; E11.9 Type 2 diabetes mellitus without complications; G47.33 Obstructive sleep apnea (adult) (pediatric); Z79.4 Long term (current) use of insulin; J47.9 Bronchiectasis, uncomplicated; Z79.52 Long term (current) use of systemic steroids; I25.10 Atherosclerotic heart disease of native coronary artery without angina pectoris; D64.9 Anemia, unspecified; J44.9 Chronic obstructive pulmonary disease, unspecified; I10 Essential (primary) hypertension; E78.5 Hyperlipidemia, unspecified; J32.9 Chronic sinusitis, unspecified; H69.83 Other specified disorders of Eustachian tube, bilateral; R19.5 Other fecal abnormalities

== ENCOUNTER → 2016-07-12 | Outpatient (CLI) | payer OTHER ==
[~2016-07-12] MED LIST changes: +ALBINS INH; +AMOX1TAB43 PO; -DAPT500I IV; -FERR1TAB13 PO; -FLUT0.0529 NAE; +FLUT0.15 NAE; +FRRS300 PO; +FSM70 PO; +HYDR5TAB57 PO; +INSU1INJ2 SQ; -INSUINJ14 SC; -LCTX PO; +METO50TA16 PO; +MISCCAP80 PO; +NVLNI SQ; +PRD10 PO; +PRED-301 PO; +PRED20TA2 PO; +SULF-183 PO; -SYMIN160 INH; +probiotic PO; +vitamin c PO
[2016-07-12 13:13] LABS: BASO % 0.5 %; BASO ABS # 0.03 K/uL (0-0.2); COMPLETE YES; EOS % 6.2 %; HEMATOCRIT 32.6 % (37-47); IG% 0.2 %; LYMPH % 26.2 %; LYMPH ABS # 1.43 K/uL (1.2-3.4); MEAN CELL VOLUME 86.7 fL (80-100); MEAN CORPUSCULAR HEMOGLOBIN 28.2 pg (25-34); MEAN CORPUSCULAR HGB CONC 32.5 g/dl (32-36); MEAN PLATELET VOLUME 9.9 fL (7.4-10.4); MONO % 8.1 %; NEUT % 58.8 %; PLATELET COUNT 167 K/uL (130-400); PROTHROMBIN TIME (PATIENT) 10.5 SECONDS (9.0-12.0); RED BLOOD COUNT 3.76 M/uL (4.2-5.4); WHITE BLOOD COUNT 5.46 K/uL (4.8-10.8)
[2016-07-12 13:38] LABS: BLOOD UREA NITROGEN 8 mg/dl (7-18); BUN/CREATININE RATIO 7.3 (10-20); CARBON DIOXIDE 30 mmol/L (21-32); CHLORIDE 99 mmol/L (98-107); GLUCOSE 128 mg/dl (70-99); POTASSIUM 4.3 mmol/L (3.5-5.1); SODIUM 138 mmol/L (136-145)
== END | disposition home or self-care (01) ==
LOC: C.LABMFLN 11:38
PROVIDERS: ATTEND Physician Assistant
DX: R19.5 Other fecal abnormalities (principal)

== ENCOUNTER 2016-08-04 08:25 | Day surgery (SDC) | payer OTHER ==
[2016-08-04] VITALS (14 sets, daily range): BP systolic 99–133; BP diastolic 54–87; PULSE 67–104; TEMP 36.8–37; O2SAT 94–100; Ht 165.1 cm; Wt 86.1 kg
[~2016-08-04] VITALS: Ht 165.1 cm; Wt 86.1 kg
[~2016-08-04 08:25] MED LIST changes: -PRED10TA PO; +SULF-183 PO
[2016-08-04] MEDS ORDERED: FENTANYL CITRATE 100 MCG 2 ML CARP IV ONE (08:26)
[2016-08-04] MEDS ORDERED: LIDOCAINE HCL 2% LOCAL 50ML VIAL INFIL ONE (08:26)
[2016-08-04] MEDS ORDERED: MIDAZOLAM HCL 1 MG/ML 2ML VIAL IV ONE (08:26)
[2016-08-04] MEDS ORDERED: PRED-301 PO (09:00)
--- NOTE | 2016-08-04 09:14 | History and Physical ---
History & Physical Date Aug 04, 2016. Chief Complaint Chronic Bronchiectasis with acute flare History of Present Illness The patient is a 55 year old female with complaints of Chronic Bronchiectasis with acute flare 55-year-old female with h/o bronchiectasis presents following recent admission with exacerbation of bronchiectasis. Prior records reviewed. PMHx includes bronchiectasis (+ vibration vest), frequent hospitalizations for acute on chronic resp failure (01/02 - 01/11/14, 01/22, 03/24, 06/23, 07/2014, 08/2014, 09/23, 10/23, 02/2016, 06/2016), multiple /bronchoscopies (+ Stenotrophomonas maltophilia : 01/08/14 & 01/02/15 & 10/21/14, 11/19/14, Haemophilus influenzae: 06/19/14, coryne. pseudodiphtheriticum 08/15/14, staphylococcus 11/19/14, MAURICIO, stenotrophomonas xanthomonas 06/30-sputum), Blood cultures from 03/2016 + coag neg staph (seen by ID), O2 dependence 2-3LPM, sleep apnea (no CPAP + nocturnal O2), pulmonary nodules, c.diff, bilateral eustachian tube dysfunction, HLD, steroid induced diabetes, hypogammaglobulinemia on IVIG. She uses trilogy QHS. Patient has been followed for several years for frequent exacerbation of bronchiectasis. She did undergo frequent bronchoscopies in [id number]. She receives IVIG through [facility] in conjunction with initiation of Trilogy QHS and has done well. Patient was admitted to [facility] 06/2016 with hypoxic hypercapnic respiratory failure and exacerbation of reflux. She was tapered to maintenance 7mg prednisone / day. CXR 06/21: interstitial infiltrates superimposed on chronic interstitial fibrosis. ECHO: pEF. Despite acute in-patient treatment, she continued to report persistent dyspnea, chest congestion, and fatigue. She was scheduled for an outpatient bronchoscopy however symptoms progressed and she was ultimately admitted to [facility] 07/13/16-. CT described tree-in-bud changes, cystic changes, bronchiectasis and inflammation. 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 (17) Tachycardia Surgical Problems: (1) H/O atrial septal defect repair (2) H/O: hysterectomy (3) History of hysterectomy (4) History of myringotomy (5) Hx of appendectomy (6) Hx of cholecystectomy (7) Hx of tympanostomy tubes (8) S/P bronchoscopy (9) S/P sinus surgery (10) S/P tonsillectomy and adenoidectomy Additional History Hepatic Disease: No Endocrine Disorder: No Kidney Disease: No Hypertension: No Heart Disease: No Bleeding Tendencies: No Infectious Diseases: Yes ( Stenotrophomonas maltophilia resistant to multiple drugs pneumonia) Other: COPD/Chronic Bronchiectasis with O2 dependence Allergies Coded Allergies: Albuterol (Verified Allergy, Mild, CHEST PAIN, 07/12/16) PT STATES "IF TAKE TOO MUCH DEVELOPS CHEST PAIN". TOLERATE LEVALBUTEROL 04/2015 Home Medications Scheduled Alendronate/Cholecalciferol (Fosamax+D 70MG/2800 Iu), 1 TABLET PO WK Aspirin (Aspirin Chewable), 81 MG PO QAM Calcium Carbonate-Vitamin D W/ (Caltrate 600 Plus), 1 TAB PO BID Cyanocobalamin (Vitamin B12), 1,000 MCG PO DAILY Ferrous Sulfate (Ferrous Sulfate), 325 MG PO DAILY Fluticasone Propionate (Nasal) (Flonase Allergy Relief), 2 SPRY ESPERANZA QAM Folic Acid (Folic Acid), 1 TAB PO QAM Insulin Aspart (Novolog Penfill), SQ AC Magnesium Oxide (Mg Supplement (Magnesium), 400 MG PO DAILY Metoprolol Tartrate (Lopressor), 50 MG PO BID Multiple Vitamin (Multivitamin), 1 TAB PO QAM Oxygen (Oxygen), 4 LITERS NA DAILY Pantoprazole (Protonix), 40 MG PO QAM Prednisone (Prednisone), 5 MG PO DAILY Scheduled PRN Albuterol Sulf (Albuterol Sulfate), 3 ML NEB Q4H PRN for sob/wheezing Dextromethorphan-Guaifenesin (Mucinex Dm Maximum Streng), 1 TAB PO BID PRN for Nasal Congestion Physical Examination Skin: warm/dry, no rash Eyes: normal inspection, EOMI, sclerae normal ENT: normal ENT inspection, pharynx normal Head: normocephalic, atraumatic Neck: supple, no adenopathy, trachea midline Respiratory/Chest: + pertinent finding (Non-labored respirations. Breath sounds present throughout. Bilateral wheeze and rales. ) Abdomen / GI: normal bowel sounds, non tender Back: normal inspection Extremities: normal inspection, normal range of motion Neurologic/Psych: no motor/sensory deficits, alert, normal reflexes, oriented x 3 Diagnosis Chronic Bronchiectasis with acute flare ASA Classification: ASA Class III Plan of Treatment Bronchoscopy with BAL
--- NOTE | 2016-08-04 09:21 | Procedure Note ---
Pre-Mod Sedation Assessment General Date of Moderate Sedation: Aug 04, 2016. Vital Signs: Vital Signs Past 12 Hours Date Time Temp Pulse Resp B/P Pulse Ox O2 Delivery O2 Flow Rate FiO2 08/04/16 08:39 37 104 22 125/68 94 Nasal Cannula 2 Review Cardiovascular: regular rate, rhythm, no edema, no gallop, no JVD, no murmur, normal peripheral pulses Abdomen: normal bowel sounds, non tender, soft, no organomegaly, no pulsatile mass, normal rectal exam, occult blood negative Lungs: chest non-tender, normal breath sounds, no respiratory distress, no accessory muscle use, + pertinent finding (minimal rhonchi anterior bilaterally ) Pre-Sedation Airway Assessment Oral Cavity: Dentures Hx of Sleep Apnea: Yes Smoking Status: Never Smoker ASA Classification: Class II Procedure Planning Contraindications-for Mod Sed: None Yes Notes The planned sedation has been discussed with the patient and consent obtained. I have identified the patient, determined the appropriateness of sedation and have assessed the patient immediately prior to the procedure. All medicine(s) and interventions are by my order.
[2016-08-04] MEDS ORDERED: NURSING VERBAL MED ORDER ONE (11:30)
[2016-08-04] MEDS ORDERED: FENTANYL CITRATE INJ 50 MCG/1 ML 2 ML VIAL IV ONE (11:45)
[2016-08-04] MEDS ORDERED: MIDAZOLAM HCL 5 MG/ML 1 ML VIAL IV ONE (11:45)
--- NOTE | 2016-08-04 11:46 | Bronchoscopy Procedure Note ---
Bronchoscopy Procedure Note Procedure: Bronchoscopy, conscious sedation, BAL RUL Consent: Obtained through the patient placed into the chart Preprocedural diagnosis: Chronic Bronchiectasis with acute flare Postprocedural diagnosis: Chronic Bronchiectasis with acute flare Start time: 1057 End time: 1118 Total time: 21min Analgesia: 2% liquid lidocaine: Via nebulizer 4% gel lidocaine: Via right naris 2% liquid lidocaine: Via bronchoscopy Sedation: Versed IV: 2 mg Fentanyl IV: 50 g Procedure: The Kanshu video bronchoscope was used for this procedure Right naris: Anatomically within normal limits Posterior naris: mild erythema Posterior oropharynx: Anatomically within normal limits Glottis: Anatomically within normal limits Vocal cords: Proper abduction and abduction, anatomically within normal limits Subglottis/trachea/Opal: Anatomically within normal limits Right bronchial tree: Right mainstem bronchus: Anatomically within normal limits Right upper lobe: Anatomically within normal limits Bronchus intermedius: Anatomically within normal limits Right middle lobe: Anatomically within normal limits Right lower lobe: Anatomically within normal limits Findings: Diffuse thick mucus secretions throughout Left bronchial tree: Left mainstem bronchus: Anatomically within normal limits Left upper lobe: Anatomically within normal limits Lingula: Anatomically within normal limits Left lower lobe: Anatomically within normal limits Findings: Diffuse thick mucus secretions throughout Bronchial alveolar lavage: RUL: 60cc with 30cc return Complications: None: Follow-up: [facility]
--- NOTE | 2016-08-04 11:51 | Discharge Instructions ---
Discharge Instructions Date of Service Aug 04, 2016. Admission Reason for Admission: Bronchiectosis; Cough; Shortness Of Breath Discharge Discharge Diagnosis / Problem: Chronic Bronchiectasis with acute flair Discharge Goals Goal(s): Improve function, Diagnostic testing Activity Recommendations Activity Limitations: resume your previous activity . Instructions / Follow-Up Instructions / Follow-Up Follow-up with [place] [facility] in the next 7-10 days Current Hospital Diet Patient's current hospital diet: Discharge Diet Recommended Diet: Regular Diet Procedures Procedures Performed: Bronchoscopy with bronchial lavage Pending Studies Studies pending at discharge: yes List of pending studies: microbiology and fungal studies Laboratory Results Hemoglobin A1c Test 05/25/16 05:40 Range/Units Estimated Average Glucose 148 mg/dl Hemoglobin A1c 6.8 H 4.5-5.6 % Medical Emergencies . Who to Call and When: Medical Emergencies: If at any time you feel your situation is an emergency, please call 911 immediately. . Non-Emergent Contact Non-Emergency issues call your: Rewriter Call Non-Emergent contact if: temperature is above 101.5 . . "Provider Documentation" section prepared by Regino Villalta. . VTE Core Measure Inpt VTE Proph given/why not?: Treatment not indicated
[2016-10-05] MEDS ORDERED: PRD10 PO (17:23)
[2016-10-05] MEDS ORDERED: AMOX1TAB43 PO (17:25)
[2016-10-05] MEDS ORDERED: MISCCAP80 PO (17:25)
[2016-11-02] MEDS ORDERED: METO50TA16 PO (09:08)
[2016-11-02] MEDS ORDERED: probiotic PO (09:09)
[2016-12-04] MEDS ORDERED: PRED10TA PO (12:50)
[2017-01-20] MEDS ORDERED: SULF-183 PO (14:26)
[2017-01-20] MEDS ORDERED: PRED10TA PO (14:26)
== END 2016-08-04 13:30 | disposition home or self-care (01) ==
LOC: C.ACU 08:25
PROVIDERS: ATTEND Internal Medicine Critical Care Medicine
DX: J47.1 Bronchiectasis with (acute) exacerbation (principal); Z99.81 Dependence on supplemental oxygen; J43.9 Emphysema, unspecified; G47.33 Obstructive sleep apnea (adult) (pediatric); K21.9 Gastro-esophageal reflux disease without esophagitis; Z87.01 Personal history of pneumonia (recurrent); J96.10 Chronic respiratory failure, unspecified whether with hypoxia or hypercapnia; E11.9 Type 2 diabetes mellitus without complications; Z90.710 Acquired absence of both cervix and uterus; Z90.49 Acquired absence of other specified parts of digestive tract; Z79.82 Long term (current) use of aspirin; Z79.4 Long term (current) use of insulin

== ENCOUNTER → 2016-08-18 | Outpatient (CLI) | payer OTHER ==
[~2016-08-18] MED LIST changes: +ALBINS INH; +AMOX1TAB43 PO; +ASCO500C43 PO; +FSM70 PO; +HYDR5TAB57 PO; +METO50TA16 PO; +MISCCAP80 PO; +NVLNI SQ; +PRD10 PO; +PRED-301 PO; +PRED10TA PO; +probiotic PO; +vitamin c PO
--- NOTE | 2016-08-20 11:52 | PULMONARY FUNCTION TEST ---
Interpretation is based off ATS criteria. SPIROMETRY: Severe obstructive ventilatory pattern with borderline reversibility based off FVC criteria. LUNG VOLUMES: Signs of hyperinflation based off elevated residual volume of 131%. DIFFUSION CAPACITY: Not measured. INTERPRETATION: Severe obstructive ventilatory pattern.
== END | disposition home or self-care (01) ==
LOC: C.RC 10:14
PROVIDERS: ATTEND Physician Assistant
DX: J47.9 Bronchiectasis, uncomplicated (principal); R05 Cough; Z99.81 Dependence on supplemental oxygen

== ENCOUNTER 2016-10-01 15:04 | Inpatient (IN) | payer OTHER ==
[~2016-10-01] VITALS: Ht 162.6 cm; Wt 82.0 kg
[~2016-10-01 15:04] MED LIST changes: -ALBINS INH; -AMOX1TAB43 PO; -ASCO500C43 PO; -FSM70 PO; -HYDR5TAB57 PO; -METO50TA16 PO; -MISCCAP80 PO; -NVLNI SQ; -PRD10 PO; -PRED10TA PO; -SULF-183 PO; -probiotic PO; -vitamin c PO
[2016-10-01] MEDS ORDERED: SODIUM CHLORIDE 0.9% 500ML 500 ML IV STA (15:55)
[2016-10-01] MEDS ORDERED: METHYLPREDNISOLONE 125 MG VIAL IV STA (15:55)
--- NOTE | 2016-10-01 15:58 | EMERGENCY ROOM VISIT NOTE ---
History Report prepared by Alvaro: Laine Price Under the Supervision of: Dr. Papito Hamm M.D. First contact with patient: 15:47 Chief Complaint: CHEST PAIN Stated Complaint: CHEST PAIN/HEAVINESS,SOB,SWEATING History of Present Illness The patient is a 56 year old female who presents to the Emergency Room with complaints of constant chest pain beginning today. The patient notes chest heaviness and discomfort. She is experiencing shortness of breath, trouble breathing, and sweating. She does wear oxygen at home and is on 2 liters when sitting and 4 liters when walking around. The patient has been on steroids before for her lungs. She is not on a water pill and does not use an inhaler. Source of History: patient Onset: today Position: chest Quality: other (heaviness) Timing: constant Associated Symptoms: + diaphoresis, + SOB Note: The patient is experiencing trouble breathing. Review of Systems See HPI for pertinent positives & negatives. A total of 10 systems reviewed and were otherwise negative. 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 (17) Tachycardia Surgical Problems: (1) H/O atrial septal defect repair (2) H/O: hysterectomy (3) History of hysterectomy (4) History of myringotomy (5) Hx of appendectomy (6) Hx of cholecystectomy (7) Hx of tympanostomy tubes (8) S/P bronchoscopy (9) S/P sinus surgery (10) S/P tonsillectomy and adenoidectomy Family History Cancer Diabetes mellitus Gallbladder disease Heart disease Hypertension Kidney disease Kidney stones Lung disease Social History Smoking Status: Never Smoker Alcohol Use: none Drug Use: none Marital Status: single Current/Historical Medications Scheduled Alendronate Sodium (Alendronate Sodium), 70 MG PO TUESDAYS Aspirin (Aspirin Chewable), 81 MG PO QAM Calcium Carbonate-Vitamin D W/ (Caltrate 600 Plus), 1 TAB PO BID Cyanocobalamin (Vitamin B12), 1,000 MCG PO DAILY Ferrous Sulfate (Ferrous Sulfate), 325 MG PO DAILY Fluticasone Propionate (Nasal) (Flonase Allergy Relief), 2 SPRY ESPERANZA QAM Folic Acid (Folic Acid), 1 TAB PO QAM Home O2 Therapy (Oxygen), 4 LITERS NA DAILY Hydrocortisone (Cortef), 15 MG PO QAM Insulin Human NPH (Novolin N), 10 UNITS SQ QAM Magnesium Oxide (Mg Supplement (Magnesium), 400 MG PO DAILY Metoprolol Tartrate (Lopressor), 50 MG PO BID Multiple Vitamin (Multivitamin), 1 TAB PO QAM Pantoprazole (Protonix), 40 MG PO QAM Scheduled PRN Albuterol Sulf (Albuterol Sulfate), 3 ML NEB Q4H PRN for sob/wheezing Dextromethorphan-Guaifenesin (Mucinex Dm Maximum Streng), 1 TAB PO BID PRN for Nasal Congestion Allergies Coded Allergies: Albuterol (Verified Allergy, Mild, CHEST PAIN, 10/01/16) PT STATES "IF TAKE TOO MUCH DEVELOPS CHEST PAIN". TOLERATE LEVALBUTEROL 04/2015 Physical Exam Vital Signs Date Time Temp Pulse Resp B/P (MAP) Pulse Ox O2 Delivery O2 Flow Rate FiO2 10/01/16 17:21 128 16 158/91 93 Nasal Cannula 3.0 10/01/16 16:11 110 22 96 Nasal Cannula 2.0 10/01/16 16:05 109 10/01/16 15:58 93 28 139/78 93 Nasal Cannula 3.0 10/01/16 15:57 96 Nasal Cannula 3.0 10/01/16 15:57 96 Nasal Cannula 3.0 10/01/16 15:22 93 Nasal Cannula 10/01/16 15:19 36.8 110 18 113/76 93 Nasal Cannula 2.0 Physical Exam GENERAL: Patient is a healthy-appearing well-nourished female HEAD: Normocephalic atraumatic EYES: Ocular movements intact pupils equal and react to light OROPHARYNX mucous membranes are moist no exudates present no erythema or edema present NECK: Supple no nuchal rigidity CHEST: Good equal expansion LUNGS: Extremely wheezy CARDIAC: Normal S1 and S2 ABDOMEN: Soft nontender no guarding BACK: No CVA tenderness EXTREMITIES: No pain upon palpation normal muscle strength in all groups no clubbing cyanosis or edema NEURO: Patient is following commands and answering questions appropriately. Alert and oriented x3 Cranial Nerves 2-12 grossly intact Medical Decision & Procedures ER Provider Diagnostic Interpretation: X-ray results as stated below per interpretation by me and the radiologist: CHEST ONE VIEW PORTABLE CLINICAL HISTORY: Pt c/o SOB dyspnea COMPARISON STUDY: 07/12/2016 FINDINGS: Diffuse bilateral parenchymal fibrotic change. Slight increase in underlying reticular nodular-type change. This may indicate progressive components of pulmonary edema. Diaphragms are smooth. IMPRESSION: Mild pulmonary edema superimposed upon chronic parenchymal fibrotic change. Electronically signed by: Santosh Diaz M.D. 10/01/2016 4:08 PM Dictated Date/Time: 10/01/2016 4:07 PM Laboratory Results Test 10/01/16 16:31 Immature Granulocyte % (Auto) 0.3 % White Blood Count 16.09 K/uL (4.8-10.8) Red Blood Count 3.57 M/uL (4.2-5.4) Hemoglobin 9.6 g/dL (12.0-16.0) Hematocrit 30.9 % (37-47) Mean Corpuscular Volume 86.6 fL (80-100) Mean Corpuscular Hemoglobin 26.9 pg (25-34) Mean Corpuscular Hemoglobin Concent 31.1 g/dl (32-36) Platelet Count 347 K/uL (130-400) Mean Platelet Volume 8.9 fL (7.4-10.4) Neutrophils (%) (Auto) 73.5 % Lymphocytes (%) (Auto) 20.8 % Monocytes (%) (Auto) 4.6 % Eosinophils (%) (Auto) 0.6 % Basophils (%) (Auto) 0.2 % Neutrophils # (Auto) 11.82 K/uL (1.4-6.5) Lymphocytes # (Auto) 3.35 K/uL (1.2-3.4) Monocytes # (Auto) 0.74 K/uL (0.11-0.59) Eosinophils # (Auto) 0.10 K/uL (0-0.5) Basophils # (Auto) 0.03 K/uL (0-0.2) Immature Granulocyte # (Auto) 0.05 K/uL (0.00-0.02) D-Dimer 3160 ug/L FEU (0-500) Total Bilirubin 0.4 mg/dl (0.2-1) Aspartate Amino Transf (AST/SGOT) 16 U/L (15-37) Alanine Aminotransferase (ALT/SGPT) 22 U/L (12-78) Alkaline Phosphatase 96 U/L (45-117) Total Protein 8.6 gm/dl (6.4-8.2) Albumin 2.9 gm/dl (3.4-5.0) Globulin 5.7 gm/dl (2.5-4.0) Albumin/Globulin Ratio 0.5 (0.9-2) Labs reviewed by ED physician. Medications Administered Medications (Trade) Dose Ordered Sig/Man Route Start Time Stop Time Status Last Admin Dose Admin Methylprednisolone Sodium Succinate (Solu-Medrol IV) 125 mg NOW STAT IV 10/01/16 15:55 10/01/16 15:57 DC 10/01/16 17:19 125 MG Albuterol/ Ipratropium (Duoneb) 12 ml ONE ONCE INH 10/01/16 16:00 10/01/16 16:01 DC 10/01/16 16:10 12 ML Sodium Chloride 500 ml @ 999 mls/hr Q31M STAT IV 10/01/16 15:55 10/01/16 16:25 DC 10/01/16 15:55 999 MLS/HR Piperacillin Sod/ Tazobactam Sod (Zosyn Iv) 4.5 gm NOW STAT IV 10/01/16 17:29 10/01/16 17:31 DC 10/01/16 18:05 4.5 GM Levofloxacin (Levaquin / D5W) 750 mg NOW ONCE IV 10/01/16 17:30 10/01/16 17:31 DC 10/01/16 17:30 750 MG ECG Indication: chest pain Rate (beats per minute): 111 Rhythm: sinus tachycardia (with short MI) Findings: T-wave inversion (Anterolateral), no acute ischemic change, no ectopy ED Course 1551: Past medical records reviewed. The patient was evaluated in room C2. A complete history and physical examination was performed. 1555: Sodium Chloride 500 ml @ 999 mls/hr IV, Solu-Medrol IV 125 mg IV, Duoneb 12 ml INH. 1729: Zosyn Iv 4.5gm IV, Levaquin / D5W 750 mg IV. 1747: I discussed the patient's case with SHMUEL Gay, she has agreed to evaluate the patient for further management and care. 1809: Upon reexamination the patient is hemodynamically stable. I discussed results and treatment plan with the patient. She verbalizes agreement and understanding. I spoke with SHMUEL Gay. The patient will be evaluated for further management. Medical Decision Differential diagnosis: Etiologies such as infections, reactive airway disease, pneumonia, pneumothorax , COPD, CHF, cardiac ischemia, pulmonary embolism, musculoskeletal, gastrointestinal, as well as others were entertained. Medication Reconciliation: I attest that I have personally reviewed the patient' s current medication list. Blood Pressure Screening: Patient was found to have an elevated blood pressure and was referred to their primary care doctor for recheck and further treatment This is a 56-year-old female who presents emergency department complaining of shortness of breath. The patient is wheezing throughout all lung davalos on examination. For this reason IV was established, the patient given Solu-Medrol , DuoNeb. Repeat examination revealed improvement patient's symptoms however the patient is still struggling to breathe. She does have an elevation in her white blood count therefore she was pancultured up and started on antibiotics. I did discuss the case with case management as well as a hospitalist service who agreed to admit the patient. Patient was in agreement with the treatment plan. Consults Time Called: 1744 Consulting Physician: SHMUEL Gay Returned Call: [phone] I discussed the patient's case with SHMUEL Gay, she has agreed to evaluate the patient for further management and care. Impression Primary Impression: Hypoxia Additional Impression: Bronchitis Scribe Attestation The scribe's documentation has been prepared under my direction and personally reviewed by me in its entirety. I confirm that the note above accurately reflects all work, treatment, procedures, and medical decision making performed by me. Departure Information Dispostion Being Evaluated By Hospitalist Referrals Ivonne Subramanian (PCP) Problem Qualifiers
[2016-10-01] MEDS ORDERED: ALBUT/IPRATROP 3MG/0.5MG NEB 3 ML VIAL INH ONE (16:00)
--- NOTE | 2016-10-01 16:09 | DIAGNOSTIC IMAGING REPORT ---
CHEST ONE VIEW PORTABLE CLINICAL HISTORY: Pt c/o SOB dyspnea COMPARISON STUDY: 07/12/2016 FINDINGS: Diffuse bilateral parenchymal fibrotic change. Slight increase in underlying reticular nodular-type change. This may indicate progressive components of pulmonary edema. Diaphragms are smooth. IMPRESSION: Mild pulmonary edema superimposed upon chronic parenchymal fibrotic change. Electronically signed by: Santosh Diaz M.D. 10/01/2016 4:08 PM Dictated Date/Time: 10/01/2016 4:07 PM
[2016-10-01] MEDS ORDERED: FSM70 PO (16:10)
[2016-10-01] MEDS ORDERED: NVLNI SQ (16:10)
[2016-10-01] MEDS ORDERED: HYDR5TAB57 PO (16:10)
[2016-10-01 16:11] VITALS: PULSE 110; O2SAT 96
[2016-10-01 16:54] LABS: BASO % 0.2 %; BASO ABS # 0.03 K/uL (0-0.2); COMPLETE YES; EOS % 0.6 %; HEMATOCRIT 30.9 % (37-47); IG% 0.3 %; LYMPH % 20.8 %; LYMPH ABS # 3.35 K/uL (1.2-3.4); MEAN CELL VOLUME 86.6 fL (80-100); MEAN CORPUSCULAR HEMOGLOBIN 26.9 pg (25-34); MEAN CORPUSCULAR HGB CONC 31.1 g/dl (32-36); MEAN PLATELET VOLUME 8.9 fL (7.4-10.4); MONO % 4.6 %; NEUT % 73.5 %; PLATELET COUNT 347 K/uL (130-400); RED BLOOD COUNT 3.57 M/uL (4.2-5.4); WHITE BLOOD COUNT 16.09 K/uL (4.8-10.8)
[2016-10-01 17:10] LABS: ALT/SGPT 22 U/L (12-78); BLOOD UREA NITROGEN 11 mg/dl (7-18); BUN/CREATININE RATIO 16.3 (10-20); CALCIUM 9.3 mg/dl (8.5-10.1); CARBON DIOXIDE 28 mmol/L (21-32); CHLORIDE 98 mmol/L (98-107); CREATININE 0.67 mg/dl (0.60-1.20); GLUCOSE 130 mg/dl (70-99); POTASSIUM 4.2 mmol/L (3.5-5.1); SODIUM 134 mmol/L (136-145)
[2016-10-01 17:19] LABS: ALB/GLOB RATIO 0.5 (0.9-2); ALKALINE PHOSPHATASE 96 U/L (45-117); AST/SGOT 16 U/L (15-37)
[2016-10-01] MEDS ORDERED: PIPERACILLIN/TAZOBACTAM 4.5 GM/100ML D5W IV STA (17:29)
[2016-10-01] MEDS ORDERED: LEVAQUIN 750MG / 150ML D5W IV ONE (17:30)
[2016-10-01] MEDS ORDERED: DEXTROSE 50% 50 ML SYR IV PRN (18:30)
[2016-10-01] MEDS ORDERED: ACETAMINOPHEN 325 MG TAB PO PRN (18:30)
[2016-10-01] MEDS ORDERED: GLUCAGON FOR INJ 1 MG VIAL SQ PRN (18:30)
[2016-10-01] MEDS ORDERED: ALUMINUM/MAGNESIUM/SIMETH (MAALOX MAX) 30 ML UDC PO PRN (18:30)
[2016-10-01] MEDS ORDERED: ONDANSETRON INJ 2 MG/ML 2 ML VIAL IV PRN (18:30)
[2016-10-01] MEDS ORDERED: MAGNESIUM HYDROXIDE SUSP 30 ML UDC PO PRN (18:30)
[2016-10-01] MEDS ORDERED: GLUCOSE 10 TABS/TUBE PO PRN (18:30)
[2016-10-01] MEDS ORDERED: GLUCOSE 40% GEL 15 GM TUBE PO PRN (18:30)
[2016-10-01] MEDS ORDERED: POLYETHYLENE (MIRALAX) 17 GM PACK PO PRN (18:30)
--- NOTE | 2016-10-01 18:41 | History and Physical ---
History & Physical Date & Time of Service: Oct 01, 2016 at 18:31 Chief Complaint: Chest Pain/Heaviness,Sob,Sweating Primary Care Physician: Ivonne Subramanian History of Present Illness Source: patient, family, clinic records, hospital records This is a 56 year old female with a PMH of idiopathic bronchiectasis, chronic respiratory failure on 2-4L of O2 continuously, chronic steroid use, recurrent sinusitis/bronchitis episodes, steroid-induced diabetes, immunodeficiency and hypogammaglobulinemia with monthly immune globulin injections; she states that she recently had R shoulder surgery on September 13, and since the surgery has not been feeling well. Her sugars have been uncontrolled (prior to surgery, her A1c was around 5.8%); with BSG readings in the 300s. She also states her breathing has been labored since the surgery. She has a cough, which is also chronic, and bringing up lots of sputum. States she also developed some chest pain in the center of her chest, intermittently since the surgery. She states that the breathing got worse today, and she was seen in the outpatient setting - pulmonology was called and they recommended that patient be brought to ER for further work-up. She received breathing treatment, solu-medrol, and antibiotics and feels slightly better right now. Past Medical/Surgical History Medical Problems: (1) Anxiety Status: Chronic (2) Asthma Status: Chronic (3) Chronic respiratory failure Status: Chronic (4) COPD exacerbation Status: Resolved (5) Depression Status: Chronic (6) Diabetes Status: Chronic (7) Emphysema Status: Resolved (8) GERD (gastroesophageal reflux disease) Status: Chronic (9) Hyperlipidemia Status: Chronic (10) Idiopathic bronchiectasis Status: Chronic (11) Mild pulmonary hypertension Status: Chronic (12) BILL (obstructive sleep apnea) Status: Chronic (13) Oxygen dependent Permanent Comment: 2L Status: Chronic (14) Pneumonia Status: Resolved (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 Status: Chronic (16) Tachycardia Status: Chronic Surgical Problems: (1) H/O atrial septal defect repair Status: Resolved (2) H/O: hysterectomy Status: Resolved (3) History of hysterectomy Status: Resolved (4) History of myringotomy Status: Resolved (5) Hx of appendectomy Status: Resolved (6) Hx of cholecystectomy Status: Resolved (7) Hx of tympanostomy tubes Status: Resolved (8) S/P bronchoscopy Status: Resolved (9) S/P sinus surgery Status: Resolved (10) S/P tonsillectomy and adenoidectomy Status: Resolved Family History Cancer Diabetes mellitus Gallbladder disease Heart disease Hypertension Kidney disease Kidney stones Lung disease Social History Smoking Status: Never Smoker Drug Use: none Marital Status: single Housing status: lives alone Immunizations History of Influenza Vaccine: Yes Influenza Vaccine Date: Mar 14, 2015 History of Tetanus Vaccine?: Yes Tetanus Immunization Date: Jun 16, 2010 History of Pneumococcal: Yes Pneumococcal Date: Sep 22, 2010 History of Hepatitis B Vaccine: Unknown Multi-Drug Resistant Organisms History of MDRO: No Allergies Coded Allergies: Albuterol (Verified Allergy, Mild, CHEST PAIN, 10/01/16) PT STATES "IF TAKE TOO MUCH DEVELOPS CHEST PAIN". TOLERATE LEVALBUTEROL 04/2015 Home Medications Scheduled Alendronate Sodium (Alendronate Sodium), 70 MG PO TUESDAYS Aspirin (Aspirin Chewable), 81 MG PO QAM Calcium Carbonate-Vitamin D W/ (Caltrate 600 Plus), 1 TAB PO BID Cyanocobalamin (Vitamin B12), 1,000 MCG PO DAILY Ferrous Sulfate (Ferrous Sulfate), 325 MG PO DAILY Fluticasone Propionate (Nasal) (Flonase Allergy Relief), 2 SPRY ESPERANZA QAM Folic Acid (Folic Acid), 1 TAB PO QAM Home O2 Therapy (Oxygen), 4 LITERS NA DAILY Hydrocortisone (Cortef), 15 MG PO QAM Insulin Human NPH (Novolin N), 10 UNITS SQ QAM Magnesium Oxide (Mg Supplement (Magnesium), 400 MG PO DAILY Metoprolol Tartrate (Lopressor), 50 MG PO BID Multiple Vitamin (Multivitamin), 1 TAB PO QAM Pantoprazole (Protonix), 40 MG PO QAM Scheduled PRN Albuterol Sulf (Albuterol Sulfate), 3 ML NEB Q4H PRN for sob/wheezing Dextromethorphan-Guaifenesin (Mucinex Dm Maximum Streng), 1 TAB PO BID PRN for Nasal Congestion Review of Systems Constitutional: + weakness, No fever, No chills Eyes: No eye pain ENT: No hearing loss Respiratory: + cough, + sputum, + wheezing, + shortness of breath, + dyspnea on exertion, + dyspnea at rest, No hemoptysis Cardiovascular: + chest pain, No orthopnea, No edema, No palpitations Abdomen: No pain, No nausea, No vomiting, No diarrhea, No constipation Musculoskeletal: + joint pain (R shoulder) Genitourinary - Female: No dysuria, No urinary frequency, No urinary urgency Neurologic: No weakness, No numbness/tingling, No vertigo, No balance problems Psychiatric: No depression symptoms, No anxiety, No insomnia Hematologic / Lymphatic: No abnormal bleeding/bruising Integumentary: No rash Allergic / Immunologic: No environmental allergies, No seasonal allergies Physical Exam Vital Signs Date Time Temp Pulse Resp B/P (MAP) Pulse Ox O2 Delivery O2 Flow Rate FiO2 10/01/16 17:21 128 16 158/91 93 Nasal Cannula 3.0 10/01/16 16:11 110 22 96 Nasal Cannula 2.0 10/01/16 16:05 109 10/01/16 15:58 93 28 139/78 93 Nasal Cannula 3.0 10/01/16 15:57 96 Nasal Cannula 3.0 10/01/16 15:57 96 Nasal Cannula 3.0 10/01/16 15:22 93 Nasal Cannula 10/01/16 15:19 36.8 110 18 113/76 93 Nasal Cannula 2.0 General Appearance: + moderate distress (respiratory distress) Respiratory/Chest: + respiratory distress, + decreased breath sounds, + accessory muscle use, + wheezing, + pertinent finding (port at R chest wall) Cardiovascular: no edema, no murmur, + tachycardia Abdomen/GI: normal bowel sounds, non tender, soft Extremities/Musculoskelatal: normal capillary refill, no pedal edema Neurologic/Psych: no motor/sensory deficits, alert, normal mood/affect Skin: normal color Lymphatic: no adenopathy Diagnostics Laboratory Results Results Past 24 Hours Test 10/01/16 16:31 10/01/16 17:25 10/01/16 18:22 Range/Units White Blood Count 16.09 4.8-10.8 K/uL Red Blood Count 3.57 4.2-5.4 M/uL Hemoglobin 9.6 12.0-16.0 g/dL Hematocrit 30.9 37-47 % Mean Corpuscular Volume 86.6 80-100 fL Mean Corpuscular Hemoglobin 26.9 25-34 pg Mean Corpuscular Hemoglobin Concent 31.1 32-36 g/dl Platelet Count 347 130-400 K/uL Mean Platelet Volume 8.9 7.4-10.4 fL Neutrophils (%) (Auto) 73.5 % Lymphocytes (%) (Auto) 20.8 % Monocytes (%) (Auto) 4.6 % Eosinophils (%) (Auto) 0.6 % Basophils (%) (Auto) 0.2 % Neutrophils # (Auto) 11.82 1.4-6.5 K/uL Lymphocytes # (Auto) 3.35 1.2-3.4 K/uL Monocytes # (Auto) 0.74 0.11-0.59 K/uL Eosinophils # (Auto) 0.10 0-0.5 K/uL Basophils # (Auto) 0.03 0-0.2 K/uL RDW Standard Deviation 47.0 36.4-46.3 fL RDW Coefficient of Variation 14.7 11.5-14.5 % Immature Granulocyte % (Auto) 0.3 % Immature Granulocyte # (Auto) 0.05 0.00-0.02 K/uL Sodium Level 134 136-145 mmol/L Potassium Level 4.2 3.5-5.1 mmol/L Chloride Level 98 98-107 mmol/L Carbon Dioxide Level 28 21-32 mmol/L Anion Gap 8.0 3-11 mmol/L Blood Urea Nitrogen 11 7-18 mg/dl Creatinine 0.67 0.60-1.20 mg/dl Est Creatinine Clear Calc Drug Dose 100.1 ml/min Estimated GFR () 114.7 Estimated GFR (Non- 99.0 BUN/Creatinine Ratio 16.3 10-20 Random Glucose 130 70-99 mg/dl Calcium Level 9.3 8.5-10.1 mg/dl Total Bilirubin 0.4 0.2-1 mg/dl Aspartate Amino Transf (AST/SGOT) 16 15-37 U/L Alanine Aminotransferase (ALT/SGPT) 22 12-78 U/L Alkaline Phosphatase 96 45-117 U/L Total Creatine Kinase 26 26-192 U/L Creatine Kinase MB < 0.5 0.5-3.6 ng/ml Creatine Kinase MB Ratio 0-3.0 Troponin I < 0.015 0-0.045 ng/ml Total Protein 8.6 6.4-8.2 gm/dl Albumin 2.9 3.4-5.0 gm/dl Globulin 5.7 2.5-4.0 gm/dl Albumin/Globulin Ratio 0.5 0.9-2 Bedside Glucose 142 70-90 mg/dl Microbiology Results 10/01/16 Blood Culture, Received Pending 10/01/16 Blood Culture, Received Pending Diagnostic Radiology CHEST ONE VIEW PORTABLE CLINICAL HISTORY: Pt c/o SOB dyspnea COMPARISON STUDY: 07/12/2016 FINDINGS: Diffuse bilateral parenchymal fibrotic change. Slight increase in underlying reticular nodular-type change. This may indicate progressive components of pulmonary edema. Diaphragms are smooth. IMPRESSION: Mild pulmonary edema superimposed upon chronic parenchymal fibrotic change. EKG Sinus tachycardia with short SC ST & T wave abnormality, consider anterolateral ischemia Abnormal ECG When compared with ECG of 15-JUL-2016 15:32, No significant change was found Impression Assessment and Plan This is a 56 year old female with a PMH of idiopathic bronchiectasis, chronic respiratory failure on 2-4L of O2 continuously, chronic steroid use, recurrent sinusitis/bronchitis episodes, steroid-induced diabetes, immunodeficiency and hypogammaglobulinemia with monthly immune globulin injections presents with worsening breathing and chest pain Acute on Chronic Respiratory Failure secondary to Idiopathic Bronchiectasis seems like an exacerbation of her fibrotic lung disease will start Solu-medrol, nebulizers immunodeficiency is an issue, so Levaquin started, though her leukocytosis is likely from chronic steroid use consulted pulmonology for further input sputum culture/blood cultures pending monitor in tele Chest Pain r/o ACS patient with chest pain, chest pressure states she's had work-ups done in the past suggesting lung issue causing chest pain patient with recent surgery she is tachycardic will order D-dimer, if elevated, will order CTA to r/o PE trend cardiac enzymes, monitor in tele, recheck EKG in AM Steroid-Induced DM2 sliding scale consult pharmacy check Ha1c in AM DVT ppx Lovenox FULL CODE VTE Prophylaxis VTE Risk Assessment Done? Y/N: Yes Risk Level: Moderate
[2016-10-01] MEDS ORDERED: PHARMACY GLYCEMIC MGMT CONSULT PRN (18:43)
[2016-10-01] MEDS: IPRATROPIUM BROMIDE NEB SOLN 0.02% 2.5 ML VIAL INH SCH (20:07)
[2016-10-01] MEDS: LEVALBUTEROL 1.25MG/0.5ML NEB INH SCH (20:08)
[2016-10-01 20:36] VITALS: BP 134/84; PULSE 113; TEMP 36.7; O2SAT 95; Ht 162.6 cm; Wt 82.0 kg
[2016-10-01] MEDS ORDERED: LEVALBUTEROL 1.25MG/0.5ML NEB INH SCH (21:00)
[2016-10-01] MEDS: CALCIUM 600MG + VIT D 400 IU TAB PO SCH (21:33)
[2016-10-01] MEDS: METOPROLOL TARTRATE 50 MG TAB PO SCH (21:34)
[2016-10-01] MEDS: INSULIN ASPART 100 UNITS/ML 3 ML PEN SC SCH (21:36)
[2016-10-01] MEDS: ENOXAPARIN 40 MG/0.4 ML SYR SC SCH (21:49)
[2016-10-01] MEDS ORDERED: OPTIRAY 320 IV PRN (22:15)
[2016-10-01] MEDS ORDERED: INSULIN GLARGINE SOLOSTAR 100 UNITS/ML 3 ML PEN SC ONE (22:30)
--- NOTE | 2016-10-01 23:07 | DIAGNOSTIC IMAGING REPORT ---
CHEST CTA for PULMONARY ARTERIES CT DOSE: 887.76 mGy.cm HISTORY: Chest pain dyspnea TECHNIQUE: Multiaxial CT images of the chest were performed following the intravenous administration of contrast to evaluate the pulmonary arteries. Maximal intensity projection images were also obtained. COMPARISON STUDY: None. FINDINGS: Pulmonary vasculature enhances appropriately centrally. There is suboptimal opacification of the femoral vessels. Diffuse bronchiectatic changes identified throughout both hemithoraces. A superimposed inflammatory process is not excluded. Thoracic aorta is normal in course and caliber. There are reactive nodes involving the mediastinal regions measuring up to 1.5 cm. There is generalized peribronchial prominence throughout. IMPRESSION: 1. No evidence for major central or first order pulmonary embolus. 2. Suboptimal visibility of the peripheral vasculature due to respiratory and somatic motion. 3. Diffuse fibrotic and bronchiectatic change throughout both hemithoraces. Generalized superimposed peribronchial thickening throughout. Electronically signed by: Santosh Diaz M.D. 10/01/2016 11:06 PM Dictated Date/Time: 10/01/2016 11:02 PM
[2016-10-01] MEDS ORDERED: NURSING DECISION MEDICATION ORDER SCH (23:30)
[2016-10-01 23:49] VITALS: BP 105/68; PULSE 83; TEMP 36.8; O2SAT 96
[2016-10-02] VITALS (11 sets, daily range): BP systolic 116–131; BP diastolic 74–81; PULSE 89–109; TEMP 36.3–36.8; O2SAT 92–98
[2016-10-02] MEDS: METHYLPREDNISOLONE IV 60 MG in SYRINGE 0 ML IV SCH ×2 (01:26→07:56)
[2016-10-02] MEDS: LEVALBUTEROL 1.25MG/0.5ML NEB INH SCH ×4 (01:46→19:17)
[2016-10-02] MEDS: IPRATROPIUM BROMIDE NEB SOLN 0.02% 2.5 ML VIAL INH SCH ×4 (01:46→19:17)
[2016-10-02 02:01] LABS: URINE APPEARANCE CLEAR (CLEAR); URINE BILIRUBIN NEG (NEG); URINE COLOR YELLOW; URINE NITRITE NEG (NEG); URINE PH 5.5 (4.5-7.5); URINE SPECIFIC GRAVITY 1.036 (1.000-1.030); UROBILINOGEN NEG (NEG)
[2016-10-02 02:11] LABS: MANUAL MICROSCOPIC REQUIRED? NO; REVIEW REQ? NO
[2016-10-02 06:44] LABS: HEMATOCRIT 28.7 % (37-47); MEAN CELL VOLUME 86.7 fL (80-100); MEAN CORPUSCULAR HEMOGLOBIN 26.9 pg (25-34); MEAN PLATELET VOLUME 8.7 fL (7.4-10.4); PLATELET COUNT 299 K/uL (130-400); RED BLOOD COUNT 3.31 M/uL (4.2-5.4); WHITE BLOOD COUNT 9.27 K/uL (4.8-10.8)
[2016-10-02 06:50] LABS: ESTIMATED AVERAGE GLUCOSE 134 mg/dl; HA1C FLAG Normal (Normal)
[2016-10-02 07:09] LABS: BLOOD UREA NITROGEN 13 mg/dl (7-18); BUN/CREATININE RATIO 16.7 (10-20); CALCIUM 9.7 mg/dl (8.5-10.1); CARBON DIOXIDE 29 mmol/L (21-32); CHLORIDE 98 mmol/L (98-107); CREATININE 0.75 mg/dl (0.60-1.20); GLUCOSE 231 mg/dl (70-99); MAGNESIUM 2.7 mg/dl (1.8-2.4); POTASSIUM 4.6 mmol/L (3.5-5.1); SODIUM 135 mmol/L (136-145)
[2016-10-02] MEDS: FLUTICASONE PROPIONATE NA SPR 16 GM BTL NAE SCH (07:57)
[2016-10-02] MEDS: FERROUS SULFATE 325 MG TAB PO SCH (07:58)
[2016-10-02] MEDS: MULTIVITAMIN TAB PO SCH (07:58)
[2016-10-02] MEDS: GUAIFENESIN 600 MG TABCR PO PRN (07:58)
[2016-10-02] MEDS: ASPIRIN 81 MG ECTAB PO SCH (07:58)
[2016-10-02] MEDS: MAGNESIUM OXIDE 400 MG TAB PO SCH (07:59)
[2016-10-02] MEDS: METOPROLOL TARTRATE 50 MG TAB PO SCH ×2 (07:59→20:43)
[2016-10-02] MEDS: CALCIUM 600MG + VIT D 400 IU TAB PO SCH ×2 (07:59→20:42)
[2016-10-02] MEDS: CYANOCOBALAMIN 500 MCG TAB (VIT B-12) PO SCH (07:59)
[2016-10-02] MEDS: PANTOprazole SOD 40 MG TAB PO SCH (07:59)
[2016-10-02] MEDS: INSULIN ASPART 100 UNITS/ML 3 ML PEN SC SCH ×4 (08:33→20:48)
[2016-10-02] MEDS ORDERED: INSULIN GLARGINE SOLOSTAR 100 UNITS/ML 3 ML PEN SC SCH (09:00)
--- NOTE | 2016-10-02 10:21 | Pharmacy Progress Note ---
Glycemic Control Intl Consult Date of Service Oct 02, 2016. Scope Glycemic Pharmacist consulted by Dr Manning on 10/01/16 for glycemic control and to write orders per [facility] inpatient glycemic control protocol Objective Weight (Kilograms): 83.500 Accuchecks BSG (last 24hrs): Test 10/01/16 16:31 10/01/16 17:25 10/01/16 20:32 10/02/16 06:34 Random Glucose 130 mg/dl (70-99) 231 mg/dl (70-99) Bedside Glucose 142 mg/dl (70-90) 236 mg/dl (70-90) Test 10/02/16 07:46 Bedside Glucose 231 mg/dl (70-90) Laboratory Data (last 24hrs) HbA1c Test 10/02/16 06:34 Hemoglobin A1c 6.3 % (4.5-5.6) H Recent Pertinent Medications Outpatient Anti-diabetic Regimen: * NPH 10 units SQ AM The patient is currently receiving: * Basal insulin: Lantus 20 units every 24 hours * Correctional Insulin: Novolog Correction per scale ACHS Goal Range: Low 140 mg/dL - High 180 mg/dL Correction Factor: 20 mg/dL/unit * Prandial insulin: Per carb ratio of 1 unit per 10 grams CHO consumed Risk Factors for Insulin Resistance: * Steroids * Infection * Diet Assessment & Plan ASSESSMENT: * 56yo T2DM female with well controlled diabetes per A1c 6.3% today. Pt is maintained on basal insulin only as an outpatient * Goal A1c < 7% * Pt with hyperglycemia secondary to steroids and infection. * Steroids have their most profound effect on post-prandial hyperglycemia --> will add bolus insulin ACHS with weight based/high stress CF/CR * Will stress outpatient basal insulin dose slightly & use longer acting Lantus rather than NPH secondary to RTC steroid dosing * Insulin will need titrated down with each step down in steroid dosing * ADA & AACE recommend a goal blood sugar range 140-180 mg/dl for the majority of critically ill & non-critically ill patients. However, more stringent targets may be selected in individual cases. Will utilize more stringent goal of 110-140mg/dl based on patient age & comorbidities. Additionally, tighter glycemic control is warranted to facilitate infection healing. PLAN FOR INPATIENT GLYCEMIC CONTROL: * Basal insulin * Lantus 20 units SQ Daily in AM * Bolus insulin * NovoLog per scale ACHS or Q6hrs while NPO * Goal Range: Low 110 mg/dL - High 140 mg/dL * Correction Factor: 20 mg/dL/unit * Nutritional / Prandial insulin per carb ratio of 1 unit per 6 grams CHO consumed * Please note that the plan above was derived based on current level of insulin resistance and hospital stress. These recommendations are appropriate for inpatient admission only. Plan of care upon discharge will need to be reassessed to avoid potential outpatient hypo/hyperglycemia. Thank you.
[2016-10-02] MEDS ORDERED: FUROSEMIDE 20 MG TAB PO SCH (12:00)
--- NOTE | 2016-10-02 12:07 | Progress Note ---
Internal Med Progress Note Date of Service: Oct 02, 2016. Provider Documentation: SUBJECTIVE: mentions of feeling much better today SOB has improved, minimum cough , no productive now no fever or chills on 2 L ( baseline ) OBJECTIVE: Vital Signs-as noted below Exam: General-no apparent disease, Cushingoid feature of chronic steroid induced changes Eyes-sclera non icteric Lungs-bibasilar rales, no wheeze noted Heart-regular Abdomen-soft Extremities-+ 1 bilateral lower ext edema Neuro-AAO x3, no focal deficit Lab data as noted below. ASSESSMENT & PLAN: This is a 56 year old female with a PMH of idiopathic bronchiectasis, chronic respiratory failure on 2-4L of O2 continuously, chronic steroid use, recurrent sinusitis/bronchitis episodes, steroid-induced diabetes, immunodeficiency and hypogammaglobulinemia with monthly immune globulin injections presented with worsening breathing and chest pain Acute on Chronic Respiratory Failure secondary to Idiopathic Bronchiectasis seems like an exacerbation of her fibrotic lung disease symptom improved with IV Solu-Medrol, nebulizers pt is on chronic home 02 ( 2 L at rest /4 L with activity ) sputum gram stain : GRAM STAIN Final 10/02/16-0746 RESULT FEW EPITHELIAL CELLS MANY POLYS FEW GRAM POSITIVE COCCI FEW GRAM POSITIVE BACILLI FEW GRAM NEGATIVE BACILLI SPUTUM CULTURE PENDING Cont PO Levaquin no evidence of sepsis Leukocytosis has normalized will taper IV Solu -Medrol to q12 hrs as minimum to no wheeze CTA of chest : 1. No evidence for major central or first order pulmonary embolus. 2. Suboptimal visibility of the peripheral vasculature due to respiratory and somatic motion. 3. Diffuse fibrotic and bronchiectatic change throughout both hemithoraces. Generalized superimposed peribronchial thickening throughout. Pulmonology consult requested -pt was seen By Dr Villalta in last admission Bronchoscopy on 08/04/16 -wnl Chest Pain -no evidence of ACS possible due to Respiratory failure /SOB symptom has resolved today cardiac markers negative stable to D/C tele PULMONARY CONGESTION /POSSIBLE ACUTE CHF WITH DIASTOLIC DYSFUNCTION : Cxray shows pulmonary congestion rales auscultated at base : ECHO ; 06/22/16 : normal LV function , EF 65-69% LV diastolic function not assessed due to suboptimal Doppler data Lasix 20 mg PO ordered repeat Cxray in AM monitor vol status -I's/O's ; daily wt Steroid-Induced DM2 cont sliding scale insulin , basal Lantus appreciate pharmacy consult pharmacy DVT ppx Lovenox FULL CODE DISPOSITION lives at home independently has family support /home aids PT/OT eval requested social service consulted to assist in discharge planning will benefit with home health visiting nurse Vital Signs: Date Time Temp Pulse Resp B/P (MAP) Pulse Ox O2 Delivery O2 Flow Rate FiO2 10/02/16 11:29 36.8 91 18 130/81 (97) 93 Nasal Cannula 2.0 10/02/16 08:00 94 Nasal Cannula 2.0 10/02/16 07:56 36.3 92 20 122/80 (94) 94 Nasal Cannula 3.0 10/02/16 07:00 101 20 98 Nasal Cannula 3.0 10/02/16 04:00 Nasal Cannula 4.0 10/02/16 04:00 36.5 89 20 116/74 (88) 96 3.0 10/02/16 01:46 94 18 97 Nasal Cannula 4.0 10/02/16 00:00 Nasal Cannula 4.0 10/01/16 23:49 36.8 83 20 105/68 (80) 96 Nasal Cannula 3.0 10/01/16 20:36 36.7 113 22 134/84 95 Nasal Cannula 3.0 10/01/16 19:34 118 20 142/83 10/01/16 18:36 115 16 158/91 95 Nasal Cannula 3.0 10/01/16 17:21 128 16 158/91 93 Nasal Cannula 3.0 10/01/16 16:11 110 22 96 Nasal Cannula 2.0 10/01/16 16:05 109 10/01/16 15:58 93 28 139/78 93 Nasal Cannula 3.0 10/01/16 15:57 96 Nasal Cannula 3.0 10/01/16 15:57 96 Nasal Cannula 3.0 10/01/16 15:22 93 Nasal Cannula 10/01/16 15:19 36.8 110 18 113/76 93 Nasal Cannula 2.0 Lab Results: Results Past 24 Hours Test 10/01/16 16:31 10/01/16 17:25 10/01/16 20:32 10/02/16 00:40 Range/Units White Blood Count 16.09 4.8-10.8 K/uL Red Blood Count 3.57 4.2-5.4 M/uL Hemoglobin 9.6 12.0-16.0 g/dL Hematocrit 30.9 37-47 % Mean Corpuscular Volume 86.6 80-100 fL Mean Corpuscular Hemoglobin 26.9 25-34 pg Mean Corpuscular Hemoglobin Concent 31.1 32-36 g/dl Platelet Count 347 130-400 K/uL Mean Platelet Volume 8.9 7.4-10.4 fL Neutrophils (%) (Auto) 73.5 % Lymphocytes (%) (Auto) 20.8 % Monocytes (%) (Auto) 4.6 % Eosinophils (%) (Auto) 0.6 % Basophils (%) (Auto) 0.2 % Neutrophils # (Auto) 11.82 1.4-6.5 K/uL Lymphocytes # (Auto) 3.35 1.2-3.4 K/uL Monocytes # (Auto) 0.74 0.11-0.59 K/uL Eosinophils # (Auto) 0.10 0-0.5 K/uL Basophils # (Auto) 0.03 0-0.2 K/uL RDW Standard Deviation 47.0 36.4-46.3 fL RDW Coefficient of Variation 14.7 11.5-14.5 % Immature Granulocyte % (Auto) 0.3 % Immature Granulocyte # (Auto) 0.05 0.00-0.02 K/uL D-Dimer 3160 0-500 ug/L FEU Sodium Level 134 136-145 mmol/L Potassium Level 4.2 3.5-5.1 mmol/L Chloride Level 98 98-107 mmol/L Carbon Dioxide Level 28 21-32 mmol/L Anion Gap 8.0 3-11 mmol/L Blood Urea Nitrogen 11 7-18 mg/dl Creatinine 0.67 0.60-1.20 mg/dl Est Creatinine Clear Calc Drug Dose 100.1 ml/min Estimated GFR () 114.7 Estimated GFR (Non- 99.0 BUN/Creatinine Ratio 16.3 10-20 Random Glucose 130 70-99 mg/dl Calcium Level 9.3 8.5-10.1 mg/dl Total Bilirubin 0.4 0.2-1 mg/dl Aspartate Amino Transf (AST/SGOT) 16 15-37 U/L Alanine Aminotransferase (ALT/SGPT) 22 12-78 U/L Alkaline Phosphatase 96 45-117 U/L Total Creatine Kinase 26 29 26-192 U/L Creatine Kinase MB < 0.5 < 0.5 0.5-3.6 ng/ml Creatine Kinase MB Ratio 0-3.0 Troponin I < 0.015 < 0.015 0-0.045 ng/ml Total Protein 8.6 6.4-8.2 gm/dl Albumin 2.9 3.4-5.0 gm/dl Globulin 5.7 2.5-4.0 gm/dl Albumin/Globulin Ratio 0.5 0.9-2 Bedside Glucose 142 236 70-90 mg/dl Test 10/02/16 01:35 10/02/16 06:34 10/02/16 07:46 10/02/16 11:23 Range/Units Urine Color YELLOW Urine Appearance CLEAR CLEAR Urine pH 5.5 4.5-7.5 Urine Specific [place] Path 1.036 1.000-1.030 Urine Protein NEG NEG Urine Glucose (UA) NEG NEG Urine Ketones NEG NEG Urine Occult Blood NEG NEG Urine Nitrite NEG NEG Urine Bilirubin NEG NEG Urine Urobilinogen NEG NEG Urine Leukocyte Esterase NEG NEG White Blood Count 9.27 4.8-10.8 K/uL Red Blood Count 3.31 4.2-5.4 M/uL Hemoglobin 8.9 12.0-16.0 g/dL Hematocrit 28.7 37-47 % Mean Corpuscular Volume 86.7 80-100 fL Mean Corpuscular Hemoglobin 26.9 25-34 pg Mean Corpuscular Hemoglobin Concent 31.0 32-36 g/dl RDW Standard Deviation 47.1 36.4-46.3 fL RDW Coefficient of Variation 14.8 11.5-14.5 % Platelet Count 299 130-400 K/uL Mean Platelet Volume 8.7 7.4-10.4 fL Sodium Level 135 136-145 mmol/L Potassium Level 4.6 3.5-5.1 mmol/L Chloride Level 98 98-107 mmol/L Carbon Dioxide Level 29 21-32 mmol/L Anion Gap 8.0 3-11 mmol/L Blood Urea Nitrogen 13 7-18 mg/dl Creatinine 0.75 0.60-1.20 mg/dl Est Creatinine Clear Calc Drug Dose 89.2 ml/min Estimated GFR () 104.0 Estimated GFR (Non- 89.7 BUN/Creatinine Ratio 16.7 10-20 Random Glucose 231 70-99 mg/dl Estimated Average Glucose 134 mg/dl Hemoglobin A1c 6.3 4.5-5.6 % Calcium Level 9.7 8.5-10.1 mg/dl Magnesium Level 2.7 1.8-2.4 mg/dl Total Creatine Kinase 25 26-192 U/L Creatine Kinase MB < 0.5 0.5-3.6 ng/ml Creatine Kinase MB Ratio 0-3.0 Troponin I < 0.015 0-0.045 ng/ml Bedside Glucose 231 257 70-90 mg/dl Microbiology Results 10/01/16 Blood Culture, Received Pending 10/01/16 Blood Culture, Received Pending 10/01/16 Gram Stain - Final, Resulted 10/01/16 Sputum Culture, Resulted Pending
--- NOTE | 2016-10-02 15:40 | Pulmonary Consultation ---
History General Date of Service: Oct 02, 2016. Stated Complaint: Hypoxia, Idiopathic Bronchiectasis, Resp Failure HPI The patient is a 56 year old female who presents to [facility] with complaints of Hypoxia, Idiopathic Bronchiectasis, Resp Failure. The patient's primary care provider is Ivonne Subramanian. The patient says she is used to these recurrent infections. She is known to have idiopathic bronchiectasis, chronic steroid use and O2 use, with recurrent sinusitis/bronchitis episodes, steroid-induced diabetes, immunodeficiency and hypogammaglobulinemia with monthly immune globulin injections; she states that she recently had R shoulder surgery on September 13 and since then he sugar has been poorly controlled. She also had worsening SOB since then and is not having chills or fevers but she says it has been a ling time since she has fevers with her recurrent infectious episodes, instead she has increased sputum SOB and wheezing and these were her symptoms this time. She was admitted and given zosyn and IV solumedrol with significant improvement. She says she is >50% better, She was off O2 talking in full sentences. back and pleuritic pain and wheezing resolved. Historian: patient, other (chart) Review of Systems Eyes: reports: no symptoms ENT: reports: other (recurrent sinusitis) Cardiovascular: reports: no symptoms Gastrointestinal: reports: no symptoms, other (no diarrhea or constipation) Genitourinary - Female: reports: no symptoms Musculoskeletal: reports: other (her shoulder pain has improved remarkably since the solumedrol was started.) Integumentary: reports: no symptoms Neurologic: reports: no symptoms Endocrine: as stated in HPI Hematologic / Lymphatic: as stated in HPI Past Medical History Past Medical History: Past Medical History: anxiety, depression, diabetes, GERD, lung disease, other (hyperlipidemia hypogammaglobulinemia and bronciectasis) Past Surgical History: 1) H/O atrial septal defect repair Status: Resolved (2) H/O: hysterectomy Status: Resolved (3) History of hysterectomy Status: Resolved (4) History of myringotomy Status: Resolved (5) Hx of appendectomy Status: Resolved (6) Hx of cholecystectomy Status: Resolved (7) Hx of tympanostomy tubes Status: Resolved (8) S/P bronchoscopy Status: Resolved (9) S/P sinus surgery Status: Resolved (10) S/P tonsillectomy and adenoidectomy Status: Resolved Family History Cancer Diabetes mellitus Gallbladder disease Heart disease Hypertension Kidney disease Kidney stones Lung disease Social History Hx Tobacco Use In Past Year?: No Smoking Status: Never Smoker Alcohol: never Drug Use: none Marital status: single Housing status: lives alone Immunizations History of Influenza Vaccine: Yes Influenza Vaccine Date: Mar 14, 2015 History of Tetanus Vaccine?: Yes Tetanus Immunization Date: Jun 16, 2010 History of Pneumococcal: Yes Pneumococcal Date: Sep 22, 2010 History of Hepatitis B Vaccine: Unknown History of MDRO History of MDRO: No Allergies Coded Allergies: Albuterol (Verified Allergy, Mild, CHEST PAIN, 10/01/16) PT STATES "IF TAKE TOO MUCH DEVELOPS CHEST PAIN". TOLERATE LEVALBUTEROL 04/2015 Current Medications Reported Home Medications Medications Dose Route/Sig Max Daily Dose Days Date Category Dose Instructions Alendronate Sodium 70 Mg Tab 70 Mg PO Tuesdays10/01/16 Reported Cortef (Hydrocortisone) 5 Mg Tab 15 Mg PO QAM 10/01/16 Reported Novolin N (Insulin Human NPH) 100 Units/Ml Susp 10 Units SQ QAM 10/01/16 Reported Albuterol Sulfate (Albuterol Sulf) 2.5 Mg/3 Ml Nebu 3 Ml NEB Q4H PRN 10 07/16/16 Rx USE SALT SOLUTION IN NEBULIZER Oxygen Gas 4 Liters NA DAILY 07/12/16 Reported Flonase Allergy Relief (Fluticasone Propionate (Nasal)) 50 Mcg/Act Spr 2 [employer] [place] QAM 05/24/16 Reported Ferrous Sulfate 325 Mg Tab 325 Mg PO DAILY 05/24/16 Reported Magnesium (Magnesium Oxide (Mg Supplement) 400 Mg Cap 400 Mg PO DAILY 02/23/16 Reported Lopressor (Metoprolol Tartrate) 25 Mg Tab 50 Mg PO BID 02/23/16 Reported Vitamin B12 (Cyanocobalamin) 1,000 Mcg Tab 1,000 Mcg PO DAILY 02/23/16 Reported Folic Acid 1 Mg Tab 1 Tab PO QAM 03/26/15 Reported Aspirin Chewable (Aspirin) 81 Mg Chew 81 Mg PO QAM 03/26/15 Reported Mucinex Dm Maximum Streng (Dextromethorphan-Guaifenesin) 1 Tab Tab 1 Tab PO BID PRN 03/26/15 Reported Caltrate 600 Plus (Calcium Carbonate-Vitamin D W/) 1 Tab Tab 1 Tab PO BID 09/20/14 Reported Multivitamin (Multiple Vitamin) 1 Tab Tab 1 Tab PO QAM 09/20/14 Reported Protonix (Pantoprazole) 40 Mg Tab 40 Mg PO QAM 09/20/14 Reported Physical Physical Exam Vital Signs: Date Time Temp Pulse Resp B/P (MAP) Pulse Ox O2 Delivery O2 Flow Rate FiO2 10/02/16 14:46 36.8 107 18 131/81 (98) 93 Nasal Cannula 2.0 10/02/16 14:03 100 20 96 Nasal Cannula 2.0 10/02/16 11:29 36.8 91 18 130/81 (97) 93 Nasal Cannula 2.0 10/02/16 08:00 94 Nasal Cannula 2.0 10/02/16 07:56 36.3 92 20 122/80 (94) 94 Nasal Cannula 3.0 10/02/16 07:00 101 20 98 Nasal Cannula 3.0 10/02/16 04:00 Nasal Cannula 4.0 10/02/16 04:00 36.5 89 20 116/74 (88) 96 3.0 10/02/16 01:46 94 18 97 Nasal Cannula 4.0 10/02/16 00:00 Nasal Cannula 4.0 10/01/16 23:49 36.8 83 20 105/68 (80) 96 Nasal Cannula 3.0 10/01/16 20:36 36.7 113 22 134/84 95 Nasal Cannula 3.0 10/01/16 19:34 118 20 142/83 10/01/16 18:36 115 16 158/91 95 Nasal Cannula 3.0 10/01/16 17:21 128 16 158/91 93 Nasal Cannula 3.0 10/01/16 16:11 110 22 96 Nasal Cannula 2.0 10/01/16 16:05 109 10/01/16 15:58 93 28 139/78 93 Nasal Cannula 3.0 10/01/16 15:57 96 Nasal Cannula 3.0 10/01/16 15:57 96 Nasal Cannula 3.0 10/01/16 15:22 93 Nasal Cannula 10/01/16 15:19 36.8 110 18 113/76 93 Nasal Cannula 2.0 General Appearance: WELL-APPEARING, NO APPARENT DISTRESS Head: NORMOCEPHALIC, ATRAUMATIC Eyes: PERRLA ENT: NORMAL THROAT EXAM Neck: NORMAL RANGE OF MOTION, NO TENDERNESS, TRACHEA MIDLINE, NO STRIDOR, SUPPLE Respiratory: rales, other (expiratory rhales.) Cardiovasular: REGULAR RATE/RHYTHM, NORMAL S1S2 Abdomen: NON TENDER, NORMAL BOWEL SOUNDS, other (central obesity) Back: NORMAL INSPECTION Upper Extremities: NO EDEMA, NO DEFORMITY, other (no clubbing) Lower Extremities: NO EDEMA Neuro: ALERT, ORIENTED x 3, NORMAL MOTOR EXAM Diagnostics Labs Results Past 24 Hours Test 10/01/16 16:31 10/01/16 17:25 10/01/16 20:32 10/02/16 00:40 Range/Units White Blood Count 16.09 4.8-10.8 K/uL Red Blood Count 3.57 4.2-5.4 M/uL Hemoglobin 9.6 12.0-16.0 g/dL Hematocrit 30.9 37-47 % Mean Corpuscular Volume 86.6 80-100 fL Mean Corpuscular Hemoglobin 26.9 25-34 pg Mean Corpuscular Hemoglobin Concent 31.1 32-36 g/dl Platelet Count 347 130-400 K/uL Mean Platelet Volume 8.9 7.4-10.4 fL Neutrophils (%) (Auto) 73.5 % Lymphocytes (%) (Auto) 20.8 % Monocytes (%) (Auto) 4.6 % Eosinophils (%) (Auto) 0.6 % Basophils (%) (Auto) 0.2 % Neutrophils # (Auto) 11.82 1.4-6.5 K/uL Lymphocytes # (Auto) 3.35 1.2-3.4 K/uL Monocytes # (Auto) 0.74 0.11-0.59 K/uL Eosinophils # (Auto) 0.10 0-0.5 K/uL Basophils # (Auto) 0.03 0-0.2 K/uL RDW Standard Deviation 47.0 36.4-46.3 fL RDW Coefficient of Variation 14.7 11.5-14.5 % Immature Granulocyte % (Auto) 0.3 % Immature Granulocyte # (Auto) 0.05 0.00-0.02 K/uL D-Dimer 3160 0-500 ug/L FEU Sodium Level 134 136-145 mmol/L Potassium Level 4.2 3.5-5.1 mmol/L Chloride Level 98 98-107 mmol/L Carbon Dioxide Level 28 21-32 mmol/L Anion Gap 8.0 3-11 mmol/L Blood Urea Nitrogen 11 7-18 mg/dl Creatinine 0.67 0.60-1.20 mg/dl Est Creatinine Clear Calc Drug Dose 100.1 ml/min Estimated GFR () 114.7 Estimated GFR (Non- 99.0 BUN/Creatinine Ratio 16.3 10-20 Random Glucose 130 70-99 mg/dl Calcium Level 9.3 8.5-10.1 mg/dl Total Bilirubin 0.4 0.2-1 mg/dl Aspartate Amino Transf (AST/SGOT) 16 15-37 U/L Alanine Aminotransferase (ALT/SGPT) 22 12-78 U/L Alkaline Phosphatase 96 45-117 U/L Total Creatine Kinase 26 29 26-192 U/L Creatine Kinase MB < 0.5 < 0.5 0.5-3.6 ng/ml Creatine Kinase MB Ratio 0-3.0 Troponin I < 0.015 < 0.015 0-0.045 ng/ml Total Protein 8.6 6.4-8.2 gm/dl Albumin 2.9 3.4-5.0 gm/dl Globulin 5.7 2.5-4.0 gm/dl Albumin/Globulin Ratio 0.5 0.9-2 Bedside Glucose 142 236 70-90 mg/dl Test 10/02/16 01:35 10/02/16 06:34 10/02/16 07:46 10/02/16 11:23 Range/Units Urine Color YELLOW Urine Appearance CLEAR CLEAR Urine pH 5.5 4.5-7.5 Urine Specific [place] 1.036 1.000-1.030 Urine Protein NEG NEG Urine Glucose (UA) NEG NEG Urine Ketones NEG NEG Urine Occult Blood NEG NEG Urine Nitrite NEG NEG Urine Bilirubin NEG NEG Urine Urobilinogen NEG NEG Urine Leukocyte Esterase NEG NEG White Blood Count 9.27 4.8-10.8 K/uL Red Blood Count 3.31 4.2-5.4 M/uL Hemoglobin 8.9 12.0-16.0 g/dL Hematocrit 28.7 37-47 % Mean Corpuscular Volume 86.7 80-100 fL Mean Corpuscular Hemoglobin 26.9 25-34 pg Mean Corpuscular Hemoglobin Concent 31.0 32-36 g/dl RDW Standard Deviation 47.1 36.4-46.3 fL RDW Coefficient of Variation 14.8 11.5-14.5 % Platelet Count 299 130-400 K/uL Mean Platelet Volume 8.7 7.4-10.4 fL Sodium Level 135 136-145 mmol/L Potassium Level 4.6 3.5-5.1 mmol/L Chloride Level 98 98-107 mmol/L Carbon Dioxide Level 29 21-32 mmol/L Anion Gap 8.0 3-11 mmol/L Blood Urea Nitrogen 13 7-18 mg/dl Creatinine 0.75 0.60-1.20 mg/dl Est Creatinine Clear Calc Drug Dose 89.2 ml/min Estimated GFR () 104.0 Estimated GFR (Non- 89.7 BUN/Creatinine Ratio 16.7 10-20 Random Glucose 231 70-99 mg/dl Estimated Average Glucose 134 mg/dl Hemoglobin A1c 6.3 4.5-5.6 % Calcium Level 9.7 8.5-10.1 mg/dl Magnesium Level 2.7 1.8-2.4 mg/dl Total Creatine Kinase 25 26-192 U/L Creatine Kinase MB < 0.5 0.5-3.6 ng/ml Creatine Kinase MB Ratio 0-3.0 Troponin I < 0.015 0-0.045 ng/ml Bedside Glucose 231 257 70-90 mg/dl Microbiology Results 10/01/16 Blood Culture, Received Pending 10/01/16 Blood Culture - Preliminary, Resulted Gram Positive Cocci 10/01/16 Gram Stain - Final, Resulted 10/01/16 Sputum Culture, Resulted Pending Diagnostic Radiology CT chest angiogram 1. No evidence for major central or first order pulmonary embolus. 2. Suboptimal visibility of the peripheral vasculature due to respiratory and somatic motion. 3. Diffuse fibrotic and bronchiectatic change throughout both hemithoraces. Generalized superimposed peribronchial thickening throughout. I also reviewed her CT scan of 2013 and there is little chane in the pattern of bronchiectasis, so she is not having worsening anatomical disease bu the damage is already done. EKG Interpretation: NORMAL EKG Impression Assessment and Plan 56 yo female patient with hypogammaglobulinemia with secondary bronchiectasis recurrent bronchitis/sinusitis in the setting of steroid induced DM and a recent shoulder surgery She was admited with acute on chronic respiratory failure secondary to an acute bronchitis episode. She has responded nicely to antibiotics and steroids suggest continue zosyn - it covers well both pneumococcus and H Influenza both of which need attention in this seting. She is up to date on her pneumonia vaccine but it is not sure that she has had HIB (hemofilus influenzae) vaccination. suggest a 7-10 day course of antibitoics. Given DM will DC solumedrol and start a taper prednisone course DVT prophyalis with SC lovenox 40 mg sputum for culture, if the patient is colonized with pseudomonas then she may be a candidate for JEFFERY once this episode is treated would recommend HIB vaccination agree with albuerol/ipratroipum/levalbuerol neblizers postural drainage for bronchiecasis explained to patient defer non respiratory management to medical team thank you for the opportunity to contribute to this lady's medical management
[2016-10-02] MEDS: LEVOFLOXACIN 500 MG TAB PO SCH (16:26)
--- NOTE | 2016-10-02 18:18 | Progress Note ---
Progress Note Date of Service Oct 02, 2016. Progress Note BLOOD culture 1x bottle + ve gram positive cocci 2nd bottle culture -pending if only only X1 bottle positive -high likelihood of possible contaminated specimen may need repeat cultures to be ordered -ordered for IV vancomycin Vancomycin can be D/asael if repeat Bl cx negative MRSA screen ordered given Immunocompromised status -Hypogammaglobinemia will cont to tx empirically
[2016-10-02] MEDS ORDERED: VANCOMYCIN CONSULT ACTIVE PRN (18:30)
[2016-10-02] MEDS ORDERED: VANCOMYCIN INJ 2,000 MG in SODIUM CHLORIDE 0.9% 500ML 500 ML IV ONE (19:00)
[2016-10-02] MEDS ORDERED: METHYLPREDNISOLONE IV 60 MG in SYRINGE 0 ML IV SCH (20:00)
--- NOTE | 2016-10-02 20:22 | Pharmacy Progress Note ---
Pharmacy Abx Initial Consult Date of Service Oct 02, 2016. Pharmacy Dosing Scope Date of Consult: 10/02/16 Consultation requested by: Dr. Awad Pharmacy is consulted to initiate Vancomycin IV dosing therapy, order appropriate labs and adjust drug dose/frequency. Subjective The patient is a 56 year old female admitted on Oct 01, 2016 at 18:29. Objective Height (Feet): 5 Height (Inches): 4.00 Weight (Kilograms): 83.500 Vital Signs (Past 12Hrs) Vital Signs Past 12 Hours Date Time Temp Pulse Resp B/P (MAP) Pulse Ox O2 Delivery O2 Flow Rate FiO2 10/02/16 19:53 36.8 109 20 126/76 (93) 92 2.0 10/02/16 19:46 Nasal Cannula 2.0 10/02/16 19:17 90 20 95 Nasal Cannula 2.0 10/02/16 16:00 93 Nasal Cannula 2.0 10/02/16 14:46 36.8 107 18 131/81 (98) 93 Nasal Cannula 2.0 10/02/16 14:03 100 20 96 Nasal Cannula 2.0 10/02/16 11:29 36.8 91 18 130/81 (97) 93 Nasal Cannula 2.0 Lab Results (24Hrs) Laboratory Tests (24 Hours) Test 10/02/16 06:34 Total Creatine Kinase 25 U/L (26-192) L White Blood Count 9.27 K/uL (4.8-10.8) Micro Results Date/Time Source Procedure Growth Status 10/01/16 17:56 Blood Blood Culture Pending Received 10/01/16 17:48 Blood Blood Culture - Preliminary Gram Positive Cocci Resulted 10/02/16 18:25 Nasal MRSA DNA Surveillance Screen - Final Specimen Negative for MRSA by DNA Probe Complete 10/01/16 23:25 Sputum Expectorated Sputum Gram Stain - Final Resulted 10/01/16 23:25 Sputum Expectorated Sputum Sputum Culture Pending Resulted Risk Factors for Resistance * Immunocompromised (chronic steroid therapy) Assessment & Plan Assessment 56 year old female with recurrent respiratory infections. Plan Vancomycin for treatment of Pulmonary infection/ Bacteremia. Vancomycin IV * Loading dose: 2000 mg (25 mg/kg) * Maintenance dose: 1250mg IV (15 mg/kg) every 12 hours * Estimated: Ke = 0.078 /hr, t1/2 = 8.9 hrs, Vd = 0.7 L/kg * Goal trough level for possible pneumonia : 15 to 20 mcg/mL * Trough Vanco level ordered for 10/04/16 before dose at 1600. Pharmacy will continue to follow and will adjust dose/frequency as necessary. Thank you.
[2016-10-02] MEDS: ENOXAPARIN 40 MG/0.4 ML SYR SC SCH (20:43)
[2016-10-03] VITALS (11 sets, daily range): BP systolic 115–136; BP diastolic 71–86; PULSE 62–102; TEMP 36.6–36.8; O2SAT 91–99
[2016-10-03] MEDS: LEVALBUTEROL 1.25MG/0.5ML NEB INH SCH ×4 (01:44→19:15)
[2016-10-03] MEDS: IPRATROPIUM BROMIDE NEB SOLN 0.02% 2.5 ML VIAL INH SCH ×4 (01:44→19:15)
[2016-10-03] MEDS ORDERED: INSULIN ASPART 100 UNITS/ML 3 ML PEN SC SCH ×2 (02:00)
[2016-10-03] MEDS: VANCOMYCIN INJ 1,250 MG in SODIUM CHLORIDE 0.9% 250ML 250 ML IV SCH ×2 (03:51→16:48)
--- NOTE | 2016-10-03 07:07 | DIAGNOSTIC IMAGING REPORT ---
CHEST ONE VIEW PORTABLE CLINICAL HISTORY: sob /PULMONARY CONGESTION dyspnea COMPARISON STUDY: 10/01/2016 FINDINGS: Diffuse parenchymal fibrosis compatible pulmonary edematous change. No change radiographically from the prior study. Central catheter in superior vena cava. Median sternotomy. IMPRESSION: Unchanged exam. Findings of diffuse parenchymal fibrosis with superimposed pulmonary edematous change. Electronically signed by: Santosh Diaz M.D. 10/03/2016 7:05 AM Dictated Date/Time: 10/03/2016 7:05 AM
[2016-10-03] MEDS: FLUTICASONE PROPIONATE NA SPR 16 GM BTL NAE SCH (08:33)
[2016-10-03] MEDS: ASPIRIN 81 MG ECTAB PO SCH (08:36)
[2016-10-03] MEDS: MULTIVITAMIN TAB PO SCH (08:36)
[2016-10-03] MEDS: GUAIFENESIN 600 MG TABCR PO PRN (08:36)
[2016-10-03] MEDS: CALCIUM 600MG + VIT D 400 IU TAB PO SCH ×2 (08:36→21:10)
[2016-10-03] MEDS: MAGNESIUM OXIDE 400 MG TAB PO SCH (08:36)
[2016-10-03] MEDS: METOPROLOL TARTRATE 50 MG TAB PO SCH ×2 (08:36→21:10)
[2016-10-03] MEDS: PANTOprazole SOD 40 MG TAB PO SCH (08:36)
[2016-10-03] MEDS: FERROUS SULFATE 325 MG TAB PO SCH (08:37)
[2016-10-03] MEDS: CYANOCOBALAMIN 500 MCG TAB (VIT B-12) PO SCH (08:37)
[2016-10-03] MEDS: INSULIN ASPART 100 UNITS/ML 3 ML PEN SC SCH ×4 (08:42→21:11)
[2016-10-03] MEDS: INSULIN GLARGINE SOLOSTAR 100 UNITS/ML 3 ML PEN SC SCH (08:43)
--- NOTE | 2016-10-03 10:07 | Pharmacy Progress Note ---
Glycemic Control Progress Note Date of Service Oct 03, 2016. Scope Glycemic Pharmacist consulted for glycemic control to write orders per [facility] inpatient glycemic control protocol. Objective Accuchecks BSG (last 24hrs): Test 10/02/16 11:23 10/02/16 16:49 10/02/16 20:44 10/03/16 02:02 Bedside Glucose 257 mg/dl (70-90) 224 mg/dl (70-90) 165 mg/dl (70-90) 145 mg/dl (70-90) Test 10/03/16 07:09 Bedside Glucose 114 mg/dl (70-90) HbA1c: Test 10/02/16 06:34 Hemoglobin A1c 6.3 % (4.5-5.6) H Recent Pertinent Medications Outpatient Anti-diabetic Regimen: * NPH 10 units SQ AM The patient is currently receiving: * Basal insulin: Lantus 20 units every 24 hours given in the morning * Correctional Insulin: Novolog Correction per scale ACHS Goal Range: Low 110 mg/dL - High 140 mg/dL Correction Factor: 20 mg/dL/unit * Prandial insulin: Per carb ratio of 1 unit per 6 grams CHO consumed Risk Factors for Insulin Resistance: * Steroids * Infection * Diet Outpatient Anti-Diabetic Meds Basal Insulin monotherapy Assessment & Plan ASSESSMENT: * See progress note from 10/02 for more background info, in short: * Pt receiving SQ basal bolus insulin regimen for hyperglycemia secondary to baseline DM,stress/infection, & steroids * Patient is currently ~67 units of insulin per day * 20 units of basal insulin * 47 units of prandial/correctional insulin * BSGs ranging 114 - 257 mg/dl over the past 24hrs * Changes needed to insulin regimen: * Steroids rapidly tapered from Solumedrol 60mg IV Q8hrs --> Q12 --> daily --> prednisone taper. Pt only received a total of 60mg Solumedrol 10/02. Insulin regimen will need tapered with this step down in steroid dosing. * AM Fasting BSG = 114 mg/dl. This is in s goal range for patient based on inpatient targets and co-morbidities. However, current basal insulin dosing was "stressed/increased" for steroid induced hyperglycemia. Will empirically decrease in accordance with step down in steroid dosing. * Post-prandial BSGs are in range but aggressive CF/CR is ordered secondary to steroids. Will empirically loosen parameters in accordance with step down in steroid dosing. PLAN FOR INPATIENT GLYCEMIC CONTROL: * Basal insulin: decrease back to outpatient dosing. Of note, patient uses NPH as an outpatient but is ordered Lantus in house for better RTC coverage of steroid induced hyperglycemia. May resume NPH on discharge. * Lantus 10 units SQ Daily in AM * Bolus insulin: empirically loosen parameters for prednisone taper * NovoLog per scale ACHS or Q6hrs while NPO * Goal Range: Low 110 mg/dL - High 140 mg/dL * Correction Factor: 30 mg/dL/unit * Nutritional / Prandial insulin per carb ratio of 1 unit per 9 grams CHO consumed * Please note that the plan above was derived based on current level of insulin resistance and hospital stress. These recommendations are appropriate for inpatient admission only. Plan of care upon discharge will need to be reassessed to avoid potential outpatient hypo/hyperglycemia. Thank you. Looking ahead to discharge: * 56yo T2DM female with well controlled diabetes per A1c 6.3% 10/02/16. Pt is maintained on basal insulin only as an outpatient * Goal A1c < 7% * Reasonable for patient to resume previous outpatient regimen of NPH 10 units SQ daily in AM on discharge. * May need to increase dose for a few days until prednisone is tapered off
--- NOTE | 2016-10-03 12:06 | Progress Note ---
Subjective Date of Service: Oct 03, 2016. Subjective Pt evaluation today including: conversation w/ patient, physical exam, lab review, review of studies, review of inpatient medication list Saw/examined the patient in room 277 Doing much better today, in no respiratory distress Denies chest pain/palpitations No fevers/chills Problem List Medical Problems: (1) Atrial fibrillation with rapid ventricular response Status: Acute (2) Atypical pneumonia Status: Acute (3) Bronchiectasis Status: Acute (4) Bronchitis Status: Acute (5) Chronic lung disease Status: Acute (6) Dyspnea Status: Acute (7) Fever Status: Acute (8) Fever Status: Acute (9) Hypoxia Status: Acute (10) Hypoxia Status: Acute (11) PNA (pneumonia) Status: Acute (12) PNA (pneumonia) Status: Acute (13) Pneumonia Status: Acute (14) Sepsis Status: Acute (15) SOB (shortness of breath) Status: Acute Review of Systems Constitutional: No fever, No chills, No weakness Respiratory: + cough, + sputum, + wheezing, + shortness of breath, No dyspnea on exertion, No dyspnea at rest, No hemoptysis Cardiac: No chest pain, No edema, No palpitations Abdomen: No pain, No nausea, No vomiting, No diarrhea Medications Current Inpatient Medications Medications (Trade) Dose Ordered Sig/Man Route Start Time Stop Time Status Last Admin Dose Admin Enoxaparin Sodium (Lovenox Inj) 40 mg DAILY@2100 SC 10/01/16 21:00 10/31/16 20:59 10/02/16 20:43 40 MG Acetaminophen (Tylenol Tab) 650 mg Q4H PRN PO 10/01/16 18:30 10/31/16 18:29 Al Hydrox/Mg Hydrox/Simethicone (Maalox Max Susp) 15 ml Q4H PRN PO 10/01/16 18:30 10/31/16 18:29 Magnesium Hydroxide (Milk Of Magnesia Susp) 30 ml Q12H PRN PO 10/01/16 18:30 10/31/16 18:29 Ondansetron HCl (Zofran Inj) 4 mg Q6H PRN IV 10/01/16 18:30 10/31/16 18:29 Aspirin (Ecotrin Tab) 81 mg QAM PO 10/02/16 09:00 11/01/16 08:59 10/03/16 08:36 81 MG Polyethylene (Miralax Powder Packet) 17 gm DAILY PRN PO 10/01/16 18:30 10/31/16 18:29 Insulin Aspart (novoLOG ASPART) SLIDING SCALE If C... ACHS SC 10/01/16 21:00 10/31/16 20:59 10/03/16 08:42 7 UNITS Glucose (Glucose 40% Gel) 15-30 GRAMS 15 GRAMS... UD PRN PO 10/01/16 18:30 10/31/16 18:29 Glucose (Glucose Chew Tab) 4-8 Tablets 4 Tabl... UD PRN PO 10/01/16 18:30 10/31/16 18:29 Dextrose (Dextrose 50% 50ML Syringe) 25-50ML OF 50% DW IV FOR... UD PRN IV 10/01/16 18:30 10/31/16 18:29 Glucagon (Glucagon Inj) 1 mg UD PRN SQ 10/01/16 18:30 10/31/16 18:29 Miscellaneous Information (Consult Glycemic Management Pharmacy) 1 ea UD PRN N/A 10/01/16 18:43 10/31/16 18:42 Levofloxacin (Levaquin Tab) 500 mg DAILY@1600 PO 10/02/16 16:00 10/09/16 15:59 10/02/16 16:26 500 MG Calcium/Vitamin D (Caltrate Plus Tab) 1 tab BID PO 10/01/16 21:00 10/31/16 20:59 10/03/16 08:36 1 TAB Ferrous Sulfate (Feosol Tab) 325 mg DAILY PO 10/02/16 09:00 11/01/16 08:59 10/03/16 08:37 325 MG Fluticasone Propionate (Flonase Nasal [place]) 2 sprays QAM ESPERANZA 10/02/16 09:00 11/01/16 08:59 10/03/16 08:33 2 SPRAYS Folic Acid (Folvite Tab) 1 mg QAM PO 10/02/16 09:00 11/01/16 08:59 10/03/16 08:36 1 MG Metoprolol Tartrate (Lopressor Tab) 50 mg BID PO 10/01/16 21:00 10/31/16 20:59 10/03/16 08:36 50 MG Multivitamins (Multivitamin Tab) 1 tab QAM PO 10/02/16 09:00 11/01/16 08:59 10/03/16 08:36 1 TAB Pantoprazole Sodium (Protonix Tab) 40 mg QAM PO 10/02/16 09:00 11/01/16 08:59 10/03/16 08:36 40 MG Cyanocobalamin (Vitamin B-12 Tab) 1,000 mcg QAM PO 10/02/16 09:00 11/01/16 08:59 10/03/16 08:37 1,000 MCG Guaifenesin (Mucinex Contr Rel Tab) 600 mg BID PRN PO 10/01/16 19:30 10/31/16 19:29 10/03/16 08:36 600 MG Magnesium Oxide (Mag-Ox Tab) 400 mg DAILY PO 10/02/16 09:00 11/01/16 08:59 10/03/16 08:36 400 MG Ipratropium [place] (Atrovent 0.02% 0.5MG/2.5ML Neb) 0.5 mg Q6R INH 10/01/16 21:00 10/31/16 20:59 10/03/16 06:49 0.5 MG Levalbuterol (Xopenex 1.25MG/ 0.5ML Neb) 1.25 mg Q6R INH 10/01/16 21:00 10/31/16 20:59 10/03/16 06:49 1.25 MG Ioversol (Optiray 320) 111 ml UD PRN IV 10/01/16 22:15 10/05/16 22:14 Heparin Sodium (Porcine) (Heparin 100 Unit/ml 5ml Flush) 5 ml PRN PRN IV 10/02/16 01:00 11/01/16 00:59 10/02/16 13:52 5 ML Prednisone (PredniSONE TAB) 50 mg Taper DAILY PO 10/03/16 09:00 10/08/16 08:59 10/03/16 08:34 50 MG Vancomycin HCl 1250 mg/Sodium Chloride 275 ml @ 125 mls/hr Q12@0400,1600 IV 10/03/16 04:00 10/09/16 23:59 10/03/16 03:51 125 MLS/HR Vancomycin HCl (Consult) 1 ea UD PRN N/A 10/02/16 18:30 11/01/16 18:29 Insulin Glargine (Lantus Solostar Pen) 10 unit DAILY SC 10/03/16 09:00 11/02/16 08:59 10/03/16 08:43 10 UNIT Objective Vital Signs Date Time Temp Pulse Resp B/P (MAP) Pulse Ox O2 Delivery O2 Flow Rate FiO2 10/03/16 10:23 102 93 10/03/16 08:00 93 Nasal Cannula 2.0 10/03/16 07:28 36.6 93 20 131/77 (95) 91 Nasal Cannula 2.0 10/03/16 06:51 87 16 96 Nasal Cannula 2.0 10/03/16 04:00 36.8 62 20 124/75 (91) 99 2.0 10/03/16 01:44 100 16 96 Nasal Cannula 2.0 10/03/16 00:08 Nasal Cannula 2.0 10/03/16 00:04 36.8 82 20 115/71 (86) 95 2.0 10/02/16 19:53 36.8 109 20 126/76 (93) 92 2.0 10/02/16 19:46 Nasal Cannula 2.0 10/02/16 19:17 90 20 95 Nasal Cannula 2.0 10/02/16 16:00 93 Nasal Cannula 2.0 10/02/16 14:46 36.8 107 18 131/81 (98) 93 Nasal Cannula 2.0 10/02/16 14:03 100 20 96 Nasal Cannula 2.0 Physical Exam General Appearance: no apparent distress Respiratory/Chest: no respiratory distress, no accessory muscle use, + wheezing (inspiratory/expiratory wheezing R > L) Cardiovascular: regular rate, rhythm, no edema, no gallop, no JVD, no murmur Abdomen: normal bowel sounds, non tender, soft Extremities: normal inspection, no pedal edema Laboratory Results Last 24 Hours Test 10/02/16 16:49 10/02/16 20:44 10/03/16 02:02 10/03/16 07:09 Bedside Glucose 224 mg/dl 165 mg/dl 145 mg/dl 114 mg/dl Test 10/03/16 11:20 Bedside Glucose 155 mg/dl Assessment and Plan This is a 56 year old female with a PMH of idiopathic bronchiectasis, chronic respiratory failure on 2-4L of O2 continuously, chronic steroid use, recurrent sinusitis/bronchitis episodes, steroid-induced diabetes, immunodeficiency and hypogammaglobulinemia with monthly immune globulin injections presents with worsening breathing and chest pain Acute on Chronic Respiratory Failure secondary to Idiopathic Bronchiectasis 10/03 appreciate pulmonology input currently on a prednisone taper; will taper prior to going back to home dose of hydrocortisone 15mg continue antibiotics for now, afebrile, no leukocytosis, but hx. of immunosuppression continue nebulizers 10/01 seems like an exacerbation of her fibrotic lung disease will start Solu-medrol, nebulizers immunodeficiency is an issue, so Levaquin started, though her leukocytosis is likely from chronic steroid use consulted pulmonology for further input sputum culture/blood cultures pending monitor in tele Chest Pain r/o ACS 10/03 CTA negative for PE cardiac enzymes negative x3 10/01 patient with chest pain, chest pressure states she's had work-ups done in the past suggesting lung issue causing chest pain patient with recent surgery she is tachycardic will order D-dimer, if elevated, will order CTA to r/o PE trend cardiac enzymes, monitor in tele, recheck EKG in AM 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
--- NOTE | 2016-10-03 15:13 | Pulmonology Progress Note ---
Pulmonary Progress Note Date of Service Oct 03, 2016. Attending Dr. Jorge Subjective 56 yo woman with hypogammaglobulinemia who was admitted with bronchitis as she has bronchiectasis secondary to her immune deficiency. She says she feels better cough has lessened and sputum production is less with clear color at this point. her sputum culture has grown a gram negative bacilli ID to follow. Objective HENT no JVD no LN Lungs Bilateral rhales that improve with cough but do not clear totally heart nl s1 s2 no murmurs abdomen centrally obese non tender no megalies BS normal ext no Clubbing cyanosis or edema neurologic no focal motor deficits Assessment & Plan 56 yo female patient with hypogammaglobulinemia with secondary bronchiectasis recurrent bronchitis/sinusitis in the setting of steroid induced DM and a recent shoulder surgery She was admited with acute on chronic respiratory failure secondary to an acute bronchitis episode. She has responded nicely to antibiotics and steroids 1- continue zosyn - it covers well both pneumococcus and H Influenza both of which need attention in this seting. She is up to date on her pneumonia vaccine but it is not sure that she has had HIB (hemofilus influenzae) vaccination. A 7-10 day course of antibiotics shuld be sufficient. 2- A taper prednisone course 3- since sputum is growing G negative bacilli please ascertain it is not pseudomonas otherwise she needs chronic JEFFERY suppression. Essentially await the sputum culture. 4- DVT prophyalis with SC lovenox 40 mg 5- agree with albuerol/ipratroipum/levalbuerol neblizers postural drainage for bronchiecasis explained to patient defer non respiratory management to medical team thank you for the opportunity to contribute to this lady's medical management Data Medications: Current Inpatient Medications Medications (Trade) Dose Ordered Sig/Man Route Start Time Stop Time Status Last Admin Dose Admin Enoxaparin Sodium (Lovenox Inj) 40 mg DAILY@2100 SC 10/01/16 21:00 10/31/16 20:59 10/02/16 20:43 40 MG Acetaminophen (Tylenol Tab) 650 mg Q4H PRN PO 10/01/16 18:30 10/31/16 18:29 Al Hydrox/Mg Hydrox/Simethicone (Maalox Max Susp) 15 ml Q4H PRN PO 10/01/16 18:30 10/31/16 18:29 Magnesium Hydroxide (Milk Of Magnesia Susp) 30 ml Q12H PRN PO 10/01/16 18:30 10/31/16 18:29 Ondansetron HCl (Zofran Inj) 4 mg Q6H PRN IV 10/01/16 18:30 10/31/16 18:29 Aspirin (Ecotrin Tab) 81 mg QAM PO 10/02/16 09:00 11/01/16 08:59 10/03/16 08:36 81 MG Polyethylene (Miralax Powder Packet) 17 gm DAILY PRN PO 10/01/16 18:30 10/31/16 18:29 Insulin Aspart (novoLOG ASPART) SLIDING SCALE If C... ACHS SC 10/01/16 21:00 10/31/16 20:59 10/03/16 12:21 8 UNITS Glucose (Glucose 40% Gel) 15-30 GRAMS 15 GRAMS... UD PRN PO 10/01/16 18:30 10/31/16 18:29 Glucose (Glucose Chew Tab) 4-8 Tablets 4 Tabl... UD PRN PO 10/01/16 18:30 10/31/16 18:29 Dextrose (Dextrose 50% 50ML Syringe) 25-50ML OF 50% DW IV FOR... UD PRN IV 10/01/16 18:30 10/31/16 18:29 Glucagon (Glucagon Inj) 1 mg UD PRN SQ 10/01/16 18:30 10/31/16 18:29 Miscellaneous Information (Consult Glycemic Management Pharmacy) 1 ea UD PRN N/A 10/01/16 18:43 10/31/16 18:42 Levofloxacin (Levaquin Tab) 500 mg DAILY@1600 PO 10/02/16 16:00 10/09/16 15:59 10/02/16 16:26 500 MG Calcium/Vitamin D (Caltrate Plus Tab) 1 tab BID PO 10/01/16 21:00 10/31/16 20:59 10/03/16 08:36 1 TAB Ferrous Sulfate (Feosol Tab) 325 mg DAILY PO 10/02/16 09:00 11/01/16 08:59 10/03/16 08:37 325 MG Fluticasone Propionate (Flonase Nasal [place]) 2 sprays QAM ESPERANZA 10/02/16 09:00 11/01/16 08:59 10/03/16 08:33 2 SPRAYS Folic Acid (Folvite Tab) 1 mg QAM PO 10/02/16 09:00 11/01/16 08:59 10/03/16 08:36 1 MG Metoprolol Tartrate (Lopressor Tab) 50 mg BID PO 10/01/16 21:00 10/31/16 20:59 10/03/16 08:36 50 MG Multivitamins (Multivitamin Tab) 1 tab QAM PO 10/02/16 09:00 11/01/16 08:59 10/03/16 08:36 1 TAB Pantoprazole Sodium (Protonix Tab) 40 mg QAM PO 10/02/16 09:00 11/01/16 08:59 10/03/16 08:36 40 MG Cyanocobalamin (Vitamin B-12 Tab) 1,000 mcg QAM PO 10/02/16 09:00 11/01/16 08:59 10/03/16 08:37 1,000 MCG Guaifenesin (Mucinex Contr Rel Tab) 600 mg BID PRN PO 10/01/16 19:30 10/31/16 19:29 10/03/16 08:36 600 MG Magnesium Oxide (Mag-Ox Tab) 400 mg DAILY PO 10/02/16 09:00 11/01/16 08:59 10/03/16 08:36 400 MG Ipratropium [place] (Atrovent 0.02% 0.5MG/2.5ML Neb) 0.5 mg Q6R INH 10/01/16 21:00 10/31/16 20:59 10/03/16 14:10 0.5 MG Levalbuterol (Xopenex 1.25MG/ 0.5ML Neb) 1.25 mg Q6R INH 10/01/16 21:00 10/31/16 20:59 10/03/16 14:10 1.25 MG Ioversol (Optiray 320) 111 ml UD PRN IV 10/01/16 22:15 10/05/16 22:14 Heparin Sodium (Porcine) (Heparin 100 Unit/ml 5ml Flush) 5 ml PRN PRN IV 10/02/16 01:00 11/01/16 00:59 10/02/16 13:52 5 ML Prednisone (PredniSONE TAB) 50 mg Taper DAILY PO 10/03/16 09:00 10/08/16 08:59 10/03/16 08:34 50 MG Vancomycin HCl 1250 mg/Sodium Chloride 275 ml @ 125 mls/hr Q12@0400,1600 IV 10/03/16 04:00 10/09/16 23:59 10/03/16 03:51 125 MLS/HR Vancomycin HCl (Consult) 1 ea UD PRN N/A 10/02/16 18:30 11/01/16 18:29 Insulin Glargine (Lantus Solostar Pen) 10 unit DAILY SC 10/03/16 09:00 11/02/16 08:59 10/03/16 08:43 10 UNIT I & O: 24-Hour Column 10/04/16 08:00 Intake Total 755 ml Output Total 700 ml Balance 55 ml Vital Signs: Date Time Temp Pulse Resp B/P (MAP) Pulse Ox O2 Delivery O2 Flow Rate FiO2 10/03/16 14:45 36.6 80 18 122/82 (95) 95 Ambu-Bag 2.0 10/03/16 14:11 88 16 97 Nasal Cannula 2.0 10/03/16 10:23 102 93 10/03/16 08:00 93 Nasal Cannula 2.0 10/03/16 07:28 36.6 93 20 131/77 (95) 91 Nasal Cannula 2.0 10/03/16 06:51 87 16 96 Nasal Cannula 2.0 10/03/16 04:00 36.8 62 20 124/75 (91) 99 2.0 10/03/16 01:44 100 16 96 Nasal Cannula 2.0 10/03/16 00:08 Nasal Cannula 2.0 10/03/16 00:04 36.8 82 20 115/71 (86) 95 2.0 10/02/16 19:53 36.8 109 20 126/76 (93) 92 2.0 10/02/16 19:46 Nasal Cannula 2.0 10/02/16 19:17 90 20 95 Nasal Cannula 2.0 10/02/16 16:00 93 Nasal Cannula 2.0 Laboratory Results: Last 24 Hours Test 10/02/16 16:49 10/02/16 20:44 10/03/16 02:02 10/03/16 07:09 Bedside Glucose 224 mg/dl 165 mg/dl 145 mg/dl 114 mg/dl Test 10/03/16 11:20 Bedside Glucose 155 mg/dl
[2016-10-03] MEDS: LEVOFLOXACIN 500 MG TAB PO SCH (16:48)
[2016-10-03] MEDS: ENOXAPARIN 40 MG/0.4 ML SYR SC SCH (21:10)
[2016-10-04] VITALS (9 sets, daily range): BP systolic 119–143; BP diastolic 75–85; PULSE 70–108; TEMP 36.4–37; O2SAT 93–98
[2016-10-04] MEDS: LEVALBUTEROL 1.25MG/0.5ML NEB INH SCH ×4 (01:59→20:02)
[2016-10-04] MEDS: IPRATROPIUM BROMIDE NEB SOLN 0.02% 2.5 ML VIAL INH SCH ×4 (01:59→20:02)
[2016-10-04] MEDS: VANCOMYCIN INJ 1,250 MG in SODIUM CHLORIDE 0.9% 250ML 250 ML IV SCH (04:04)
[2016-10-04 05:45] LABS: HEMATOCRIT 29.4 % (37-47); MEAN CELL VOLUME 87.8 fL (80-100); MEAN CORPUSCULAR HEMOGLOBIN 26.6 pg (25-34); MEAN CORPUSCULAR HGB CONC 30.3 g/dl (32-36); MEAN PLATELET VOLUME 9.3 fL (7.4-10.4); PLATELET COUNT 325 K/uL (130-400); RED BLOOD COUNT 3.35 M/uL (4.2-5.4)
[2016-10-04 06:16] LABS: CREATININE 0.81 mg/dl (0.60-1.20)
[2016-10-04] MEDS: FLUTICASONE PROPIONATE NA SPR 16 GM BTL NAE SCH (08:39)
[2016-10-04] MEDS: PANTOprazole SOD 40 MG TAB PO SCH (08:39)
[2016-10-04] MEDS: MULTIVITAMIN TAB PO SCH (08:39)
[2016-10-04] MEDS: CALCIUM 600MG + VIT D 400 IU TAB PO SCH ×2 (08:39→20:35)
[2016-10-04] MEDS: MAGNESIUM OXIDE 400 MG TAB PO SCH (08:40)
[2016-10-04] MEDS: METOPROLOL TARTRATE 50 MG TAB PO SCH ×2 (08:40→20:34)
[2016-10-04] MEDS: ASPIRIN 81 MG ECTAB PO SCH (08:40)
[2016-10-04] MEDS: CYANOCOBALAMIN 500 MCG TAB (VIT B-12) PO SCH (08:40)
[2016-10-04] MEDS: FERROUS SULFATE 325 MG TAB PO SCH (08:41)
[2016-10-04] MEDS: INSULIN GLARGINE SOLOSTAR 100 UNITS/ML 3 ML PEN SC SCH (08:44)
[2016-10-04] MEDS: INSULIN ASPART 100 UNITS/ML 3 ML PEN SC SCH ×4 (08:44→20:42)
--- NOTE | 2016-10-04 08:50 | Progress Note ---
Subjective Date of Service: Oct 04, 2016. Subjective Pt evaluation today including: conversation w/ patient, physical exam, lab review, review of studies, review of inpatient medication list Saw/examined the patient in room 277 No problems/issues to note today; breathing is better, closer to baseline +productive cough, +sputum production; +clear sputum No chest pain/palpitations Denies fevers/chills Problem List Medical Problems: (1) Atrial fibrillation with rapid ventricular response Status: Acute (2) Atypical pneumonia Status: Acute (3) Bronchiectasis Status: Acute (4) Bronchitis Status: Acute (5) Chronic lung disease Status: Acute (6) Dyspnea Status: Acute (7) Fever Status: Acute (8) Fever Status: Acute (9) Hypoxia Status: Acute (10) Hypoxia Status: Acute (11) PNA (pneumonia) Status: Acute (12) PNA (pneumonia) Status: Acute (13) Pneumonia Status: Acute (14) Sepsis Status: Acute (15) SOB (shortness of breath) Status: Acute Review of Systems Constitutional: No fever, No chills Respiratory: + cough, + sputum, + wheezing, + shortness of breath (baseline), No dyspnea on exertion, No dyspnea at rest, No hemoptysis Cardiac: No chest pain, No edema, No palpitations Medications Current Inpatient Medications Medications (Trade) Dose Ordered Sig/Man Route Start Time Stop Time Status Last Admin Dose Admin Enoxaparin Sodium (Lovenox Inj) 40 mg DAILY@2100 SC 10/01/16 21:00 10/31/16 20:59 10/03/16 21:10 40 MG Acetaminophen (Tylenol Tab) 650 mg Q4H PRN PO 10/01/16 18:30 10/31/16 18:29 Al Hydrox/Mg Hydrox/Simethicone (Maalox Max Susp) 15 ml Q4H PRN PO 10/01/16 18:30 10/31/16 18:29 Magnesium Hydroxide (Milk Of Magnesia Susp) 30 ml Q12H PRN PO 10/01/16 18:30 10/31/16 18:29 Ondansetron HCl (Zofran Inj) 4 mg Q6H PRN IV 10/01/16 18:30 10/31/16 18:29 Aspirin (Ecotrin Tab) 81 mg QAM PO 10/02/16 09:00 11/01/16 08:59 10/04/16 08:40 81 MG Polyethylene (Miralax Powder Packet) 17 gm DAILY PRN PO 10/01/16 18:30 10/31/16 18:29 Insulin Aspart (novoLOG ASPART) SLIDING SCALE If C... ACHS SC 10/01/16 21:00 10/31/16 20:59 10/04/16 08:44 3 UNITS Glucose (Glucose 40% Gel) 15-30 GRAMS 15 GRAMS... UD PRN PO 10/01/16 18:30 10/31/16 18:29 Glucose (Glucose Chew Tab) 4-8 Tablets 4 Tabl... UD PRN PO 10/01/16 18:30 10/31/16 18:29 Dextrose (Dextrose 50% 50ML Syringe) 25-50ML OF 50% DW IV FOR... UD PRN IV 10/01/16 18:30 10/31/16 18:29 Glucagon (Glucagon Inj) 1 mg UD PRN SQ 10/01/16 18:30 10/31/16 18:29 Miscellaneous Information (Consult Glycemic Management Pharmacy) 1 ea UD PRN N/A 10/01/16 18:43 10/31/16 18:42 Levofloxacin (Levaquin Tab) 500 mg DAILY@1600 PO 10/02/16 16:00 10/09/16 15:59 10/03/16 16:48 500 MG Calcium/Vitamin D (Caltrate Plus Tab) 1 tab BID PO 10/01/16 21:00 10/31/16 20:59 10/04/16 08:39 1 TAB Ferrous Sulfate (Feosol Tab) 325 mg DAILY PO 10/02/16 09:00 11/01/16 08:59 10/04/16 08:41 325 MG Fluticasone Propionate (Flonase Nasal [place]) 2 sprays QAM ESPERANZA 10/02/16 09:00 11/01/16 08:59 10/04/16 08:39 2 SPRAYS Folic Acid (Folvite Tab) 1 mg QAM PO 10/02/16 09:00 11/01/16 08:59 10/04/16 08:40 1 MG Metoprolol Tartrate (Lopressor Tab) 50 mg BID PO 10/01/16 21:00 10/31/16 20:59 10/04/16 08:40 50 MG Multivitamins (Multivitamin Tab) 1 tab QAM PO 10/02/16 09:00 11/01/16 08:59 10/04/16 08:39 1 TAB Pantoprazole Sodium (Protonix Tab) 40 mg QAM PO 10/02/16 09:00 11/01/16 08:59 10/04/16 08:39 40 MG Cyanocobalamin (Vitamin B-12 Tab) 1,000 mcg QAM PO 10/02/16 09:00 11/01/16 08:59 10/04/16 08:40 1,000 MCG Guaifenesin (Mucinex Contr Rel Tab) 600 mg BID PRN PO 10/01/16 19:30 10/31/16 19:29 10/03/16 08:36 600 MG Magnesium Oxide (Mag-Ox Tab) 400 mg DAILY PO 10/02/16 09:00 11/01/16 08:59 10/04/16 08:40 400 MG Ipratropium [place] (Atrovent 0.02% 0.5MG/2.5ML Neb) 0.5 mg Q6R INH 10/01/16 21:00 10/31/16 20:59 10/04/16 07:23 0.5 MG Levalbuterol (Xopenex 1.25MG/ 0.5ML Neb) 1.25 mg Q6R INH 10/01/16 21:00 10/31/16 20:59 10/04/16 07:23 1.25 MG Ioversol (Optiray 320) 111 ml UD PRN IV 10/01/16 22:15 10/05/16 22:14 Heparin Sodium (Porcine) (Heparin 100 Unit/ml 5ml Flush) 5 ml PRN PRN IV 10/02/16 01:00 11/01/16 00:59 10/02/16 13:52 5 ML Prednisone (PredniSONE TAB) 50 mg Taper DAILY PO 10/03/16 09:00 10/08/16 08:59 10/04/16 08:40 40 MG Insulin Glargine (Lantus Solostar Pen) 10 unit DAILY SC 10/03/16 09:00 11/02/16 08:59 10/04/16 08:44 10 UNIT Objective Vital Signs Date Time Temp Pulse Resp B/P (MAP) Pulse Ox O2 Delivery O2 Flow Rate FiO2 10/04/16 08:38 108 119/83 (95) 10/04/16 07:23 91 14 94 Nasal Cannula 2.0 10/04/16 07:14 36.4 88 20 143/85 (104) 93 Nasal Cannula 2.0 10/04/16 01:59 90 14 97 Nasal Cannula 2.0 10/04/16 00:04 36.7 79 20 122/77 (92) 97 2.0 10/03/16 23:49 Nasal Cannula 2.0 10/03/16 20:43 Nasal Cannula 2.0 10/03/16 19:15 84 18 97 Nasal Cannula 2.0 10/03/16 16:00 95 Nasal Cannula 2.0 10/03/16 14:45 36.6 80 18 122/82 (95) 95 Ambu-Bag 2.0 10/03/16 14:11 88 16 97 Nasal Cannula 2.0 10/03/16 10:23 102 93 Physical Exam General Appearance: no apparent distress Respiratory/Chest: no respiratory distress, no accessory muscle use, + wheezing , + pertinent finding (port at R chest wall) Cardiovascular: regular rate, rhythm, no edema, no murmur Extremities: normal inspection, no pedal edema Laboratory Results Last 24 Hours Test 10/03/16 11:20 10/03/16 16:29 10/03/16 20:47 10/04/16 05:20 Bedside Glucose 155 mg/dl 180 mg/dl 185 mg/dl White Blood Count 9.30 K/uL Red Blood Count 3.35 M/uL Hemoglobin 8.9 g/dL Hematocrit 29.4 % Mean Corpuscular Volume 87.8 fL Mean Corpuscular Hemoglobin 26.6 pg Mean Corpuscular Hemoglobin Concent 30.3 g/dl RDW Standard Deviation 48.7 fL RDW Coefficient of Variation 15.0 % Platelet Count 325 K/uL Mean Platelet Volume 9.3 fL Creatinine 0.81 mg/dl Est Creatinine Clear Calc Drug Dose 81.9 ml/min Estimated GFR () 94.8 Estimated GFR (Non- 81.8 Test 10/04/16 07:17 Bedside Glucose 86 mg/dl Assessment and Plan This is a 56 year old female with a PMH of idiopathic bronchiectasis, chronic respiratory failure on 2-4L of O2 continuously, chronic steroid use, recurrent sinusitis/bronchitis episodes, steroid-induced diabetes, immunodeficiency and hypogammaglobulinemia with monthly immune globulin injections presents with worsening breathing and chest pain Acute on Chronic Respiratory Failure secondary to Idiopathic Bronchiectasis 10/04 at this point continue abx. - sputum culture + for gram negative bacilli blood culture + x1 for coag neg staph d/c'd vancomycin continue prednisone taper at this point nebulizers 10/03 appreciate pulmonology input currently on a prednisone taper; will taper prior to going back to home dose of hydrocortisone 15mg continue antibiotics for now, afebrile, no leukocytosis, but hx. of immunosuppression continue nebulizers 10/01 seems like an exacerbation of her fibrotic lung disease will start Solu-medrol, nebulizers immunodeficiency is an issue, so Levaquin started, though her leukocytosis is likely from chronic steroid use consulted pulmonology for further input sputum culture/blood cultures pending monitor in tele Chest Pain r/o ACS 10/03 CTA negative for PE cardiac enzymes negative x3 10/01 patient with chest pain, chest pressure states she's had work-ups done in the past suggesting lung issue causing chest pain patient with recent surgery she is tachycardic will order D-dimer, if elevated, will order CTA to r/o PE trend cardiac enzymes, monitor in tele, recheck EKG in AM 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
--- NOTE | 2016-10-04 15:19 | Pulmonology Progress Note ---
Pulmonary Progress Note Date of Service Oct 04, 2016. Attending Dr. Villalta Subjective Patient notes improvement in her overall pulmonary status. She notes she is closer to her baseline but continues intermittent productive sputum. Objective Patient is doing well show no signs of respiratory insufficiency: Vital signs: Stable HENT no JVD no LN Lungs: Rhonchi appreciated greatest anteriorly heart nl s1 s2 no murmurs abdomen centrally obese non tender no megalies BS normal ext no Clubbing cyanosis or edema neurologic no focal motor deficits Bronchial washing 01/23/15: Candidate albicans 03/03/15: Candidate albicans 05/02/2015: Candidate albicans 08/04/2016: Stenotrophomonas maltophilia (levofloxacin resistant) Aspergillus not fumigatus Expectorated sputum 03/18/2015: Normal pavan 04/08/2015: Normal pavan 02/25/16: Normal pavan 02/24/2016: Stenotrophomonas maltophilia (aerobic gram-negative bacillus Gram-negative bacilli Blood cultures 04/08/2015: Coag-negative staph 05/13 CT thorax 10/01/2016 Diffuse bronchiectatic changes with cylindrical bronchiectasis in the RML and lingula Assessment & Plan 56-year-old female with hypogammaglobulinemia and chronic bronchiectasis/ sinusitis: #1 Cylindrical Bronchiectasis: Patient has a history of chronic bronchiectasis with Stenotrophomonas maltophilia grown out on previous respiratory samples. The stenotrophomonas is a gram-negative bacillus it could easily be the etiology of her current flare. I suggest we continue the Zosyn at this time for coverage of possible Pseudomonas and initiate Bactrim as Zosyn does not cover stenotrophomonas well. Possibly we should continue on her steroid taper and nebulizers. t Data Medications: Current Inpatient Medications Medications (Trade) Dose Ordered Sig/Man Route Start Time Stop Time Status Last Admin Dose Admin Enoxaparin Sodium (Lovenox Inj) 40 mg DAILY@2100 SC 10/01/16 21:00 10/31/16 20:59 10/03/16 21:10 40 MG Acetaminophen (Tylenol Tab) 650 mg Q4H PRN PO 10/01/16 18:30 10/31/16 18:29 Al Hydrox/Mg Hydrox/Simethicone (Maalox Max Susp) 15 ml Q4H PRN PO 10/01/16 18:30 10/31/16 18:29 Magnesium Hydroxide (Milk Of Magnesia Susp) 30 ml Q12H PRN PO 10/01/16 18:30 10/31/16 18:29 Ondansetron HCl (Zofran Inj) 4 mg Q6H PRN IV 10/01/16 18:30 10/31/16 18:29 Aspirin (Ecotrin Tab) 81 mg QAM PO 10/02/16 09:00 11/01/16 08:59 10/04/16 08:40 81 MG Polyethylene (Miralax Powder Packet) 17 gm DAILY PRN PO 10/01/16 18:30 10/31/16 18:29 Insulin Aspart (novoLOG ASPART) SLIDING SCALE If C... ACHS SC 10/01/16 21:00 10/31/16 20:59 10/04/16 12:07 5 UNITS Glucose (Glucose 40% Gel) 15-30 GRAMS 15 GRAMS... UD PRN PO 10/01/16 18:30 10/31/16 18:29 Glucose (Glucose Chew Tab) 4-8 Tablets 4 Tabl... UD PRN PO 10/01/16 18:30 10/31/16 18:29 Dextrose (Dextrose 50% 50ML Syringe) 25-50ML OF 50% DW IV FOR... UD PRN IV 10/01/16 18:30 10/31/16 18:29 Glucagon (Glucagon Inj) 1 mg UD PRN SQ 10/01/16 18:30 10/31/16 18:29 Miscellaneous Information (Consult Glycemic Management Pharmacy) 1 ea UD PRN N/A 10/01/16 18:43 10/31/16 18:42 Levofloxacin (Levaquin Tab) 500 mg DAILY@1600 PO 10/02/16 16:00 10/09/16 15:59 10/03/16 16:48 500 MG Calcium/Vitamin D (Caltrate Plus Tab) 1 tab BID PO 10/01/16 21:00 10/31/16 20:59 10/04/16 08:39 1 TAB Ferrous Sulfate (Feosol Tab) 325 mg DAILY PO 10/02/16 09:00 11/01/16 08:59 10/04/16 08:41 325 MG Fluticasone Propionate (Flonase Nasal [place]) 2 sprays QAM ESPERANZA 10/02/16 09:00 11/01/16 08:59 10/04/16 08:39 2 SPRAYS Folic Acid (Folvite Tab) 1 mg QAM PO 10/02/16 09:00 11/01/16 08:59 10/04/16 08:40 1 MG Metoprolol Tartrate (Lopressor Tab) 50 mg BID PO 10/01/16 21:00 10/31/16 20:59 10/04/16 08:40 50 MG Multivitamins (Multivitamin Tab) 1 tab QAM PO 10/02/16 09:00 11/01/16 08:59 10/04/16 08:39 1 TAB Pantoprazole Sodium (Protonix Tab) 40 mg QAM PO 10/02/16 09:00 11/01/16 08:59 10/04/16 08:39 40 MG Cyanocobalamin (Vitamin B-12 Tab) 1,000 mcg QAM PO 10/02/16 09:00 11/01/16 08:59 10/04/16 08:40 1,000 MCG Guaifenesin (Mucinex Contr Rel Tab) 600 mg BID PRN PO 10/01/16 19:30 10/31/16 19:29 10/03/16 08:36 600 MG Magnesium Oxide (Mag-Ox Tab) 400 mg DAILY PO 10/02/16 09:00 11/01/16 08:59 10/04/16 08:40 400 MG Ipratropium [place] (Atrovent 0.02% 0.5MG/2.5ML Neb) 0.5 mg Q6R INH 10/01/16 21:00 10/31/16 20:59 10/04/16 14:24 0.5 MG Levalbuterol (Xopenex 1.25MG/ 0.5ML Neb) 1.25 mg Q6R INH 10/01/16 21:00 10/31/16 20:59 10/04/16 14:24 1.25 MG Ioversol (Optiray 320) 111 ml UD PRN IV 10/01/16 22:15 10/05/16 22:14 Heparin Sodium (Porcine) (Heparin 100 Unit/ml 5ml Flush) 5 ml PRN PRN IV 10/02/16 01:00 11/01/16 00:59 10/02/16 13:52 5 ML Prednisone (PredniSONE TAB) 40 mg Taper DAILY PO 10/03/16 09:00 10/08/16 08:59 10/04/16 08:40 40 MG Insulin Glargine (Lantus Solostar Pen) 10 unit DAILY SC 10/03/16 09:00 11/02/16 08:59 Future Hold 10/04/16 08:44 10 UNIT I & O: 24-Hour Column 10/05/16 08:00 Intake Total 755 ml Output Total 500 ml Balance 255 ml Vital Signs: Date Time Temp Pulse Resp B/P (MAP) Pulse Ox O2 Delivery O2 Flow Rate FiO2 10/04/16 14:29 88 12 98 Nasal Cannula 2.0 10/04/16 08:38 108 119/83 (95) 10/04/16 08:00 Nasal Cannula 2.0 10/04/16 07:23 91 14 94 Nasal Cannula 2.0 10/04/16 07:14 36.4 88 20 143/85 (104) 93 Nasal Cannula 2.0 10/04/16 01:59 90 14 97 Nasal Cannula 2.0 10/04/16 00:04 36.7 79 20 122/77 (92) 97 2.0 10/03/16 23:49 Nasal Cannula 2.0 10/03/16 20:43 Nasal Cannula 2.0 10/03/16 19:15 84 18 97 Nasal Cannula 2.0 10/03/16 16:00 95 Nasal Cannula 2.0 Laboratory Results: Last 24 Hours Test 10/03/16 16:29 10/03/16 20:47 10/04/16 05:20 10/04/16 07:17 Bedside Glucose 180 mg/dl 185 mg/dl 86 mg/dl White Blood Count 9.30 K/uL Red Blood Count 3.35 M/uL Hemoglobin 8.9 g/dL Hematocrit 29.4 % Mean Corpuscular Volume 87.8 fL Mean Corpuscular Hemoglobin 26.6 pg Mean Corpuscular Hemoglobin Concent 30.3 g/dl RDW Standard Deviation 48.7 fL RDW Coefficient of Variation 15.0 % Platelet Count 325 K/uL Mean Platelet Volume 9.3 fL Creatinine 0.81 mg/dl Est Creatinine Clear Calc Drug Dose 81.9 ml/min Estimated GFR () 94.8 Estimated GFR (Non- 81.8 Test 10/04/16 11:53 Bedside Glucose 135 mg/dl
[2016-10-04] MEDS ORDERED: VANCOMYCIN TROUGH SCH (15:30)
[2016-10-04] MEDS: SULFAMETHOXAZOLE/TRIMETHOPRIM DS 800/160MG TAB PO SCH ×2 (16:23→21:57)
[2016-10-04] MEDS: ENOXAPARIN 40 MG/0.4 ML SYR SC SCH (20:36)
[2016-10-05] VITALS (8 sets, daily range): BP systolic 111–115; BP diastolic 71–75; PULSE 81–105; TEMP 36.7–37; O2SAT 92–97
[2016-10-05] MEDS: LEVALBUTEROL 1.25MG/0.5ML NEB INH SCH ×3 (01:52→14:18)
[2016-10-05] MEDS: IPRATROPIUM BROMIDE NEB SOLN 0.02% 2.5 ML VIAL INH SCH ×3 (01:52→14:18)
[2016-10-05 06:05] LABS: MEAN CELL VOLUME 87.1 fL (80-100); MEAN CORPUSCULAR HEMOGLOBIN 26.4 pg (25-34); MEAN CORPUSCULAR HGB CONC 30.3 g/dl (32-36); MEAN PLATELET VOLUME 9.1 fL (7.4-10.4); PLATELET COUNT 343 K/uL (130-400); RED BLOOD COUNT 3.56 M/uL (4.2-5.4); WHITE BLOOD COUNT 8.39 K/uL (4.8-10.8)
[2016-10-05] MEDS: FLUTICASONE PROPIONATE NA SPR 16 GM BTL NAE SCH (08:15)
[2016-10-05] MEDS: CYANOCOBALAMIN 500 MCG TAB (VIT B-12) PO SCH (08:16)
[2016-10-05] MEDS: MULTIVITAMIN TAB PO SCH (08:16)
[2016-10-05] MEDS: ASPIRIN 81 MG ECTAB PO SCH (08:16)
[2016-10-05] MEDS: PANTOprazole SOD 40 MG TAB PO SCH (08:17)
[2016-10-05] MEDS: CALCIUM 600MG + VIT D 400 IU TAB PO SCH (08:17)
[2016-10-05] MEDS: MAGNESIUM OXIDE 400 MG TAB PO SCH (08:17)
[2016-10-05] MEDS: SULFAMETHOXAZOLE/TRIMETHOPRIM DS 800/160MG TAB PO SCH (08:18)
[2016-10-05] MEDS: METOPROLOL TARTRATE 50 MG TAB PO SCH (08:18)
--- NOTE | 2016-10-05 08:18 | Pharmacy Progress Note ---
Glycemic Control Progress Note Date of Service Oct 05, 2016. Scope Glycemic Pharmacist consulted for glycemic control to write orders per [facility] inpatient glycemic control protocol. Objective Accuchecks BSG (last 24hrs): Test 10/04/16 11:53 10/04/16 16:46 10/04/16 20:11 10/05/16 00:08 Bedside Glucose 135 mg/dl (70-90) 238 mg/dl (70-90) 160 mg/dl (70-90) 101 mg/dl (70-90) Test 10/05/16 04:06 10/05/16 07:26 Bedside Glucose 88 mg/dl (70-90) 84 mg/dl (70-90) HbA1c: Test 10/02/16 06:34 Hemoglobin A1c 6.3 % (4.5-5.6) H Recent Pertinent Medications The patient is currently receiving: * Basal insulin: Lantus 10 units every 24 hours * Correctional Insulin: Novolog Correction per scale ACHS Goal Range: Low 110 mg/dL - High 140 mg/dL Correction Factor: 30 mg/dL/unit * Prandial insulin: Per carb ratio of 1 unit per 9 grams CHO consumed Outpatient Anti-Diabetic Meds Basal Insulin Assessment & Plan ASSESSMENT: * See progress note from 10/02 for more background info, in short: * Pt receiving SQ basal bolus insulin regimen for hyperglycemia secondary to baseline DM,stress/infection, & steroids * Patient is currently using ~31 units of insulin per day * 10 units of basal insulin * 21 units of prandial/correctional insulin * BSGs ranging 86 - 238 mg/dl over the past 24hrs * Changes needed to insulin regimen: * Steroids continue to taper today from Prednisone 40 mg PO yesterday to 30 mg PO daily today. * AM Fasting BSG = 84 mg/dl. This is slightly below goal range for patient based on inpatient targets and co-morbidities. Decrease by 20% and reassess tomorrow. * Post-prandial BSGs are in range with the exception of an elevated dinner BSG (likely due to the peak of Prednisone at that time) * Continue current Novolog coverage with the exception of tightening lunch coverage to avoid hyperglycemic at dinner PLAN FOR INPATIENT GLYCEMIC CONTROL: * Basal insulin: DECREASE * Lantus 8 units SQ Daily in AM * Bolus insulin: CONTINUE WITH THE EXCEPTION OF TIGHTENING LUNCH * NovoLog per scale ACHS or Q6hrs while NPO * Goal Range: Low 110 mg/dL - High 140 mg/dL * Correction Factor: 30 mg/dL/unit, except for lunch = 20 * Nutritional / Prandial insulin per carb ratio of 1 unit per 9 grams CHO consumed, except for lunch = 7 * Please note that the plan above was derived based on current level of insulin resistance and hospital stress. These recommendations are appropriate for inpatient admission only. Plan of care upon discharge will need to be reassessed to avoid potential outpatient hypo/hyperglycemia. Thank you. Looking ahead to discharge: * 56yo T2DM female with well controlled diabetes per A1c 6.3% 10/02/16. Pt is maintained on basal insulin only as an outpatient * Goal A1c < 7% * Reasonable for patient to resume previous outpatient regimen of NPH 10 units SQ daily in AM on discharge. * May need to increase dose for a few days until prednisone is tapered off
[2016-10-05] MEDS: INSULIN ASPART 100 UNITS/ML 3 ML PEN SC SCH ×2 (08:21→17:47)
[2016-10-05] MEDS ORDERED: INSULIN GLARGINE SOLOSTAR 100 UNITS/ML 3 ML PEN SC SCH (09:00)
--- NOTE | 2016-10-05 09:56 | Pulmonology Progress Note ---
Pulmonary Progress Note Date of Service Oct 05, 2016. Attending Pawan Subjective Feeling markedly improved from admission and believes she is at her baseline. Has been tolerating antibiotic without complication. Chest pain has completely resolved. Appetite is in-tact. Has not been ambulating throughout the room secondary to need to increase her O2 to 4LPM with ambulation Objective Patient admitted through [facility] ER 10/01/16 wit chest pain, dyspnea and diaphoresis. PMHx includes: bronchiectasis, frequent hospitalizations for acute on chronic resp failure, ltiple /bronchoscopies (+ Stenotrophomonas maltophilia: 01/08/14 & 01/02/15 & 10/21/14, 11/19/14, 07/2016, haemophilus influenzae: 06/19/14, coryne. pseudodiphtheriticum 08/15/14, staphylococcus 11/19/14, MAURICIO, Stenotrophomonas xanthomonas 06/30-sputum, aspergillus not fumigatus: 07/2016), Blood cultures from 03/2016 + coag neg staph (seen by ID), O2 dependence 2-3LPM, sleep apnea ( no CPAP + nocturnal O2), pulmonary nodules, c.diff, bilateral eustachian tube dysfunction, HLD, steroid induced diabetes, hypogammaglobulinemia on IVIG. She uses trilogy QHS. In the ER patient was notable to be wheezing bilaterally with increased WOB. Labs notable for elevated d-dimer. Sputum continues to grow Levaquin resistant Stenotrophomonas. She received levofloxacin, pip-tazo and then transitioned to TMP-SMX. WBC resolved 10/02/16. CTA 10/01/16: diffuse bronchiectasis changes bilaterally. Superimposed inflammatory process. Sputum 10/01/16: Stenotrophomonas maltophilia. Diffuse fibrotic and bronchiectatic [place] bilaterally. Generalized superimposed peribronchial thickening throughout. CXR 10/03/16: unchanged exam. Finding of diffuse parenchymal fibrosi swith superimposed pulmonary edematous change. Today: - Afebrile, HD stable - O2: 93-97% - 2LPM - Prednisone: 30mg, Q6 levalbuterol-ipratropium - TMP-SMX 800-160 (day #) and pip-tazo (day # - WBC: 8.39/9.4/31.0/343 Physical Exam: Constitutional: Well developed well nourished obese pleasant female sitting up in bed, no acute distress Head: + facial symmetry, O2 via NC in-place Eyes: Full EOMs, disconjugate gaze, PERRLA, + corrective lenses, no conjunctiva injection Mouth: Mallampati III, No erythema or exudate, small posterior pharyngeal opening. Throat: trachea midline, no palpable adenopathy Respiratory: Non-labored respirations. Breath sounds present throughout. Bilateral crackles throughout. Cardiovascular: RRR, no murmur appreciated. +[2] radial pulses. [<1s] capillary refill. Negative matthew sign. No calf tenderness. Extremities/MSK: moving symmetrically. NO peripheral edema Neurologic: Alert and Oriented x 3. Appropriate affect. Assessment & Plan 56-year-old female with hypogammaglobulinemia and exacerbation of chronic bronchiectasis/sinusitis: clinically improved and near baseline - Cylindrical Bronchiectasis with sputum persistent Stenotrophomonas maltophilia - symptoms recurrent shortly after shoulder surgery as well as with her outpatient course of bacteria discontinued: clinically improving - continue for total 21-days and again, agree prior recommendation for concurrent empiric treatment for other respiratory pathogens which could be contributing - dc on Augmentin x 14-day and oral pro-biotic - Taper off steroid by 5mg Q2-days then resume prior instructions per endocrine with short-term follow-up for h/o adrenal insufficiency with hydrocortisone per outpatient records - Will need pulmonary f/u 1-2 weeks post discharge. Patient and case reviewed and plan agreed with. Data Medications: Current Inpatient Medications Medications (Trade) Dose Ordered Sig/Man Route Start Time Stop Time Status Last Admin Dose Admin Enoxaparin Sodium (Lovenox Inj) 40 mg DAILY@2100 SC 10/01/16 21:00 10/31/16 20:59 10/04/16 20:36 40 MG Acetaminophen (Tylenol Tab) 650 mg Q4H PRN PO 10/01/16 18:30 10/31/16 18:29 10/05/16 08:15 650 MG Al Hydrox/Mg Hydrox/Simethicone (Maalox Max Susp) 15 ml Q4H PRN PO 10/01/16 18:30 10/31/16 18:29 Magnesium Hydroxide (Milk Of Magnesia Susp) 30 ml Q12H PRN PO 10/01/16 18:30 10/31/16 18:29 Ondansetron HCl (Zofran Inj) 4 mg Q6H PRN IV 10/01/16 18:30 10/31/16 18:29 Aspirin (Ecotrin Tab) 81 mg QAM PO 10/02/16 09:00 11/01/16 08:59 10/05/16 08:16 81 MG Polyethylene (Miralax Powder Packet) 17 gm DAILY PRN PO 10/01/16 18:30 10/31/16 18:29 Glucose (Glucose 40% Gel) 15-30 GRAMS 15 GRAMS... UD PRN PO 10/01/16 18:30 10/31/16 18:29 Glucose (Glucose Chew Tab) 4-8 Tablets 4 Tabl... UD PRN PO 10/01/16 18:30 10/31/16 18:29 Dextrose (Dextrose 50% 50ML Syringe) 25-50ML OF 50% DW IV FOR... UD PRN IV 10/01/16 18:30 10/31/16 18:29 Glucagon (Glucagon Inj) 1 mg UD PRN SQ 10/01/16 18:30 10/31/16 18:29 Miscellaneous Information (Consult Glycemic Management Pharmacy) 1 ea UD PRN N/A 10/01/16 18:43 10/31/16 18:42 Calcium/Vitamin D (Caltrate Plus Tab) 1 tab BID PO 10/01/16 21:00 10/31/16 20:59 10/05/16 08:17 1 TAB Fluticasone Propionate (Flonase Nasal [place]) 2 sprays QAM ESPERANZA 10/02/16 09:00 11/01/16 08:59 10/05/16 08:15 2 SPRAYS Folic Acid (Folvite Tab) 1 mg QAM PO 10/02/16 09:00 11/01/16 08:59 10/05/16 08:18 1 MG Metoprolol Tartrate (Lopressor Tab) 50 mg BID PO 10/01/16 21:00 10/31/16 20:59 10/05/16 08:18 50 MG Multivitamins (Multivitamin Tab) 1 tab QAM PO 10/02/16 09:00 11/01/16 08:59 10/05/16 08:16 1 TAB Pantoprazole Sodium (Protonix Tab) 40 mg QAM PO 10/02/16 09:00 11/01/16 08:59 10/05/16 08:17 40 MG Cyanocobalamin (Vitamin B-12 Tab) 1,000 mcg QAM PO 10/02/16 09:00 11/01/16 08:59 10/05/16 08:16 1,000 MCG Guaifenesin (Mucinex Contr Rel Tab) 600 mg BID PRN PO 10/01/16 19:30 10/31/16 19:29 10/03/16 08:36 600 MG Magnesium Oxide (Mag-Ox Tab) 400 mg DAILY PO 10/02/16 09:00 11/01/16 08:59 10/05/16 08:17 400 MG Ipratropium [place] (Atrovent 0.02% 0.5MG/2.5ML Neb) 0.5 mg Q6R INH 10/01/16 21:00 10/31/16 20:59 10/05/16 07:05 0.5 MG Levalbuterol (Xopenex 1.25MG/ 0.5ML Neb) 1.25 mg Q6R INH 10/01/16 21:00 10/31/16 20:59 10/05/16 07:06 1.25 MG Ioversol (Optiray 320) 111 ml UD PRN IV 10/01/16 22:15 10/05/16 22:14 Heparin Sodium (Porcine) (Heparin 100 Unit/ml 5ml Flush) 5 ml PRN PRN IV 10/02/16 01:00 11/01/16 00:59 10/05/16 05:18 5 ML Prednisone (PredniSONE TAB) 30 mg Taper DAILY PO 10/03/16 09:00 10/08/16 08:59 10/05/16 08:16 30 MG Trimethoprim/ Sulfamethoxazole (Septra Ds 800/ 160MG Tab) 2 tab Q12 PO 10/04/16 16:00 10/11/16 15:59 10/05/16 08:18 2 TAB Insulin Glargine (Lantus Solostar Pen) 8 unit DAILY SC 10/05/16 09:00 11/04/16 08:59 10/05/16 08:21 8 UNIT Insulin Aspart (novoLOG ASPART) SLIDING SCALE If C... TID@0630,1630,2100 SC 10/05/16 08:00 11/04/16 07:59 10/05/16 08:21 5 UNITS Insulin Aspart (novoLOG ASPART) SLIDING SCALE If C... DAILY@1100 [place] 10/05/16 11:00 11/04/16 10:59 Vital Signs: Date Time Temp Pulse Resp B/P (MAP) Pulse Ox O2 Delivery O2 Flow Rate FiO2 10/05/16 08:10 105 115/75 (88) 10/05/16 08:00 Nasal Cannula 2.0 10/05/16 07:05 95 16 97 Nasal Cannula 2.0 10/05/16 07:04 36.7 90 18 113/71 (85) 93 2.0 10/05/16 01:52 88 14 95 Nasal Cannula 2.0 10/05/16 00:00 Nasal Cannula 2.0 10/04/16 23:19 37.0 74 18 119/75 (90) 95 Nasal Cannula 2.0 10/04/16 20:02 70 14 98 Nasal Cannula 2.0 10/04/16 16:00 Nasal Cannula 2.0 10/04/16 15:28 36.9 98 18 120/75 (90) 96 Room Air 10/04/16 14:29 88 12 98 Nasal Cannula 2.0 Laboratory Results: Last 24 Hours Test 10/04/16 11:53 10/04/16 16:46 10/04/16 20:11 10/05/16 00:08 Bedside Glucose 135 mg/dl 238 mg/dl 160 mg/dl 101 mg/dl Test 10/05/16 04:06 10/05/16 05:20 10/05/16 07:26 Bedside Glucose 88 mg/dl 84 mg/dl White Blood Count 8.39 K/uL Red Blood Count 3.56 M/uL Hemoglobin 9.4 g/dL Hematocrit 31.0 % Mean Corpuscular Volume 87.1 fL Mean Corpuscular Hemoglobin 26.4 pg Mean Corpuscular Hemoglobin Concent 30.3 g/dl RDW Standard Deviation 47.7 fL RDW Coefficient of Variation 14.9 % Platelet Count 343 K/uL Mean Platelet Volume 9.1 fL
[2016-10-05] MEDS ORDERED: INSULIN ASPART 100 UNITS/ML 3 ML PEN SC SCH (11:00)
--- NOTE | 2016-10-05 17:18 | Discharge Instructions ---
Discharge Instructions Date of Service Oct 05, 2016. Admission Reason for Admission: Hypoxia, Idiopathic Bronchiectasis, Resp Failure Discharge Discharge Diagnosis / Problem: ACUTE ON CHRONIC RESPIRATORTY FAILURE / BRONCHIATASIS Discharge Goals Goal(s): Increase independence, Diagnostic testing, Therapeutic intervention Activity Recommendations Activity Limitations: resume your previous activity . Instructions / Follow-Up Instructions / Follow-Up HOSPITAL FOLLOW UP WITH FAMILY PHYSICIAN GABY MI IN A WEEK , OFFICE WILL CALL WITH APPOINTMENT PULMONOLOGY FOLLOW UP WITH DR BARKER IN 1-2 WEEKS, PLEASE CALL OFFICE FOR APPOINTMENT NEW MEDICATIONS : 1. You are started on Augmentin ( antibiotic ) 1 tab twice daily for 14 days 2. Take probiotic 1 capsule three times daily with meals while taking antibiotic 3. You are discharged with Oral Prednisone taper 30 mg daily for 2 days 25 mg daily for 2 days 20 mg daily for 2 days 15 mg daily for 2 days 10 mg daily for 2 days 5 mg daily for 2 days then stop continue to take Cortif 15 mg daily after finishing Oral Prednisone taper Please call your family physician office if started to have more cough / wheezing or shortness of breath Current Hospital Diet Patient's current hospital diet: AHA Diet (Heart Healthy), Diabetes Type 2 Diet Discharge Diet Recommended Diet: AHA Diet (Heart Healthy), Diabetes Type 2 Diet Pending Studies Studies pending at discharge: no Laboratory Results Hemoglobin A1c Test 10/02/16 06:34 Range/Units Estimated Average Glucose 134 mg/dl Hemoglobin A1c 6.3 H 4.5-5.6 % Medical Emergencies . Who to Call and When: Medical Emergencies: If at any time you feel your situation is an emergency, please call 911 immediately. . Non-Emergent Contact Non-Emergency issues call your: Primary Care Provider . . "Provider Documentation" section prepared by Maria Elena Awad. . VTE Core Measure Inpt VTE Proph given/why not?: Enoxaparin (Lovenox)SQ
[2016-10-05] MEDS ORDERED: PRD10 PO (17:23)
[2016-10-05] MEDS ORDERED: AMOX1TAB43 PO (17:25)
[2016-10-05] MEDS ORDERED: MISCCAP80 PO (17:25)
--- NOTE | 2016-10-05 17:40 | Progress Note ---
Internal Med Progress Note Date of Service: Oct 05, 2016. Provider Documentation: SUBJECTIVE: feeling fine , no complain of SOB , no fever or chills cough has improved wants to be discharged home today OBJECTIVE: Vital Signs-as noted below Exam: General-no apparent disease, Cushingoid feature of chronic steroid induced changes Eyes-sclera non icteric Lungs-bibasilar rales, occasional wheeze Heart-regular Abdomen-soft Extremities-no rash or deformity , no lower ext edema Neuro-AAO x3, no focal deficit Lab data as noted below. ASSESSMENT & PLAN: This is a 56 year old female with a PMH of idiopathic bronchiectasis, chronic respiratory failure on 2-4L of O2 continuously, chronic steroid use, recurrent sinusitis/bronchitis episodes, steroid-induced diabetes, immunodeficiency and hypogammaglobulinemia with monthly immune globulin injections presented with worsening breathing and chest pain Acute on Chronic Respiratory Failure secondary to Idiopathic Bronchiectasis seems like an exacerbation of her fibrotic lung disease symptom improved with IV Solu-Medrol, nebulizers IV Solumedrol D/asael started on PO Prednisone taper on 30 mg PO daily taper dose today pt is on chronic home 02 ( 2 L at rest /4 L with activity ) -at her baseline sputum gram stain : GRAM STAIN Final 10/02/16-0746 RESULT FEW EPITHELIAL CELLS MANY POLYS FEW GRAM POSITIVE COCCI FEW GRAM POSITIVE BACILLI FEW GRAM NEGATIVE BACILLI SPUTUM CULTURE Stenotrophomonas Maltophilia resistant Levaquin /Sensitive to Bactrim Abx changed to Bactrim BID CTA of chest : 1. No evidence for major central or first order pulmonary embolus. 2. Suboptimal visibility of the peripheral vasculature due to respiratory and somatic motion. 3. Diffuse fibrotic and bronchiectatic change throughout both hemithoraces. Generalized superimposed peribronchial thickening throughout. Pulmonology consult requested -appreciate input Bronchoscopy on 08/04/16 -wnl BAL culture positive for Stenotrophomonas Maltophilia recommendation from Pulmonology team ; -can be discharged home with PO Augmentin for 14 days cont Oral probiotic during abx course Taper off PO Prednisone 5 mg Q2 days then resume PO Hydrocortisone for hx of adrenal insufficiency pt is instructed to follow up with Endocrine for further dose adjustment of Hydrocortisone if needed PULMONARY CONGESTION /POSSIBLE ACUTE CHF WITH DIASTOLIC DYSFUNCTION : Cxray shows pulmonary congestion rales auscultated at base : ECHO ; 06/22/16 : normal LV function , EF 65-69% LV diastolic function not assessed due to suboptimal Doppler data improved with X1 dose of Lasix Steroid-Induced DM2 cont sliding scale insulin , basal Lantus appreciate glycemic management consult from pharmacy pt will be resumed with out pt insulin dose on discharge DVT ppx Lovenox FULL CODE DISPOSITION Stable to be discharged home today Medicine follow up [place] Pulmonology follow up with Dr Villalta Vital Signs: Date Time Temp Pulse Resp B/P (MAP) Pulse Ox O2 Delivery O2 Flow Rate FiO2 10/05/16 16:40 93 Nasal Cannula 2.0 10/05/16 15:08 37.0 85 18 111/73 (86) 92 Nasal Cannula 2.0 10/05/16 14:19 81 12 94 Nasal Cannula 2.0 10/05/16 08:10 105 115/75 (88) 10/05/16 08:00 Nasal Cannula 2.0 10/05/16 07:05 95 16 97 Nasal Cannula 2.0 10/05/16 07:04 36.7 90 18 113/71 (85) 93 2.0 10/05/16 01:52 88 14 95 Nasal Cannula 2.0 10/05/16 00:00 Nasal Cannula 2.0 10/04/16 23:19 37.0 74 18 119/75 (90) 95 Nasal Cannula 2.0 10/04/16 20:02 70 14 98 Nasal Cannula 2.0 Lab Results: Results Past 24 Hours Test 10/04/16 20:11 10/05/16 00:08 10/05/16 04:06 10/05/16 05:20 Range/Units Bedside Glucose 160 101 88 70-90 mg/dl White Blood Count 8.39 4.8-10.8 K/uL Red Blood Count 3.56 4.2-5.4 M/uL Hemoglobin 9.4 12.0-16.0 g/dL Hematocrit 31.0 37-47 % Mean Corpuscular Volume 87.1 80-100 fL Mean Corpuscular Hemoglobin 26.4 25-34 pg Mean Corpuscular Hemoglobin Concent 30.3 32-36 g/dl RDW Standard Deviation 47.7 36.4-46.3 fL RDW Coefficient of Variation 14.9 11.5-14.5 % Platelet Count 343 130-400 K/uL Mean Platelet Volume 9.1 7.4-10.4 fL Test 10/05/16 07:26 10/05/16 11:16 10/05/16 16:12 Range/Units Bedside Glucose 84 113 214 70-90 mg/dl
--- NOTE | 2016-10-05 17:52 | Discharge Summary ---
Discharge Summary Date of Service Oct 05, 2016. Discharge Summary Admission Date: Oct 01, 2016 at 18:29 Discharge Date: Oct 05, 2016 Discharge Disposition: Home Principal Diagnosis: ACUTE ON CHRONIC RESPIRATORY FAILURE /BRONCHIECTASIS Procedures: CT CHEST WITH CONTRAST : IMPRESSION: 1. No evidence for major central or first order pulmonary embolus. 2. Suboptimal visibility of the peripheral vasculature due to respiratory and somatic motion. 3. Diffuse fibrotic and bronchiectatic change throughout both hemithoraces. Generalized superimposed peribronchial thickening throughout. PORTABLE CHEST XRAY : IMPRESSION: Unchanged exam. Findings of diffuse parenchymal fibrosis with superimposed pulmonary edematous change. Consultations: PULMONOLOGY DR BARKER Medication Reconciliation New Medications: Probiotic Product (Probiotic) 1 Cap Cap 1 CAP PO TIDM for 20 Days, #60 CAP Amoxicillin & Pot Clavulanate (Amoxicillin/Clavulanate P) 1 Tab Tab 875 MG PO BIDM for 14 Days, #28 TAB Prednisone (Prednisone) 10 Mg Tab 30 MG PO UD for 12 Days, #30 TAB 30 MG DAILY 2 DAYS 25 MG DAILY 2 DAYS 20 MG DAILY 2 DAYS 15 MG DAILY 2 DAYS 10 MG DAILY 2 DAYS 5 MG DAILY 2 DAYS Continued Medications: Albuterol Sulf (Albuterol Sulfate) 2.5 Mg/3 Ml Nebu 3 ML NEB Q4H PRN for sob/wheezing for 10 Days USE SALT SOLUTION IN NEBULIZER Alendronate Sodium (Alendronate Sodium) 70 Mg Tab 70 MG PO TUESDAYS, #4 Aspirin (Aspirin Chewable) 81 Mg Chew 81 MG PO QAM, TAB Calcium Carbonate-Vitamin D W/ (Caltrate 600 Plus) 1 Tab Tab 1 TAB PO BID, TAB Cyanocobalamin (Vitamin B12) 1,000 Mcg Tab 1000 MCG PO DAILY Dextromethorphan-Guaifenesin (Mucinex Dm Maximum Streng) 1 Tab Tab 1 TAB PO BID PRN for Nasal Congestion Ferrous Sulfate (Ferrous Sulfate) 325 Mg Tab 325 MG PO DAILY Fluticasone Propionate (Nasal) (Flonase Allergy Relief) 50 Mcg/Act Spr 2 SPRY ESPERANZA QAM Folic Acid (Folic Acid) 1 Mg Tab 1 TAB PO QAM Home O2 Therapy (Oxygen) Gas 4 LITERS NA DAILY Hydrocortisone (Cortef) 5 Mg Tab 15 MG PO QAM, #240 Insulin Human NPH (Novolin N) 100 Units/Ml Susp 10 UNITS SQ QAM, #10 Magnesium Oxide (Mg Supplement (Magnesium) 400 Mg Cap 400 MG PO DAILY Metoprolol Tartrate (Lopressor) 25 Mg Tab 50 MG PO BID, TAB Multiple Vitamin (Multivitamin) 1 Tab Tab 1 TAB PO QAM, TAB Pantoprazole (Protonix) 40 Mg Tab 40 MG PO QAM, TAB Referrals At Discharge Follow up Referrals: Physician Referral - Within 1-2 Weeks with Ivonne Subramanian [employer] Referral - Please Call For Appointment with Regino Barker MD Admission Information HPI (per Admitting provider): This is a 56 year old female with a PMH of idiopathic bronchiectasis, chronic respiratory failure on 2-4L of O2 continuously, chronic steroid use, recurrent sinusitis/bronchitis episodes, steroid-induced diabetes, immunodeficiency and hypogammaglobulinemia with monthly immune globulin injections; she states that she recently had R shoulder surgery on September 13, and since the surgery has not been feeling well. Her sugars have been uncontrolled (prior to surgery, her A1c was around 5.8%); with BSG readings in the 300s. She also states her breathing has been labored since the surgery. She has a cough, which is also chronic, and bringing up lots of sputum. States she also developed some chest pain in the center of her chest, intermittently since the surgery. She states that the breathing got worse today, and she was seen in the outpatient setting - pulmonology was called and they recommended that patient be brought to ER for further work-up. She received breathing treatment, solu-medrol, and antibiotics and feels slightly better right now. Physical Exam (per Admitting): General Appearance: + moderate distress (respiratory distress) Respiratory/Chest: + respiratory distress, + decreased breath sounds, + accessory muscle use, + wheezing, + pertinent finding (port at R chest wall) Cardiovascular: no edema, no murmur, + tachycardia Abdomen/GI: normal bowel sounds, non tender, soft Extremities/Musculoskelatal: normal capillary refill, no pedal edema Neurologic/Psych: no motor/sensory deficits, alert, normal mood/affect Skin: normal color Lymphatic: no adenopathy Hospital Course This is a 56 year old female with a PMH of idiopathic bronchiectasis, chronic respiratory failure on 2-4L of O2 continuously, chronic steroid use, recurrent sinusitis/bronchitis episodes, steroid-induced diabetes, immunodeficiency and hypogammaglobulinemia with monthly immune globulin injections presented with worsening breathing and chest pain Acute on Chronic Respiratory Failure secondary to Idiopathic Bronchiectasis seems like an exacerbation of her fibrotic lung disease symptom improved with IV Solu-Medrol, nebulizers IV Solumedrol D/asael started on PO Prednisone taper on 30 mg PO daily taper dose today pt is on chronic home 02 ( 2 L at rest /4 L with activity ) -at her baseline sputum gram stain : GRAM STAIN Final 10/02/16-0746 RESULT FEW EPITHELIAL CELLS MANY POLYS FEW GRAM POSITIVE COCCI FEW GRAM POSITIVE BACILLI FEW GRAM NEGATIVE BACILLI SPUTUM CULTURE Stenotrophomonas Maltophilia resistant Levaquin /Sensitive to Bactrim Abx changed to Bactrim BID CTA of chest : 1. No evidence for major central or first order pulmonary embolus. 2. Suboptimal visibility of the peripheral vasculature due to respiratory and somatic motion. 3. Diffuse fibrotic and bronchiectatic change throughout both hemithoraces. Generalized superimposed peribronchial thickening throughout. Pulmonology consult requested -appreciate input Bronchoscopy on 08/04/16 -wnl BAL culture positive for Stenotrophomonas Maltophilia recommendation from Pulmonology team ; -can be discharged home with PO Augmentin for 14 days cont Oral probiotic during abx course Taper off PO Prednisone 5 mg Q2 days then resume PO Hydrocortisone for hx of adrenal insufficiency pt is instructed to follow up with Endocrine for further dose adjustment of Hydrocortisone if needed PULMONARY CONGESTION /POSSIBLE ACUTE CHF WITH DIASTOLIC DYSFUNCTION : Cxray shows pulmonary congestion rales auscultated at base : ECHO ; 06/22/16 : normal LV function , EF 65-69% LV diastolic function not assessed due to suboptimal Doppler data improved with X1 dose of Lasix Steroid-Induced DM2 cont sliding scale insulin , basal Lantus appreciate glycemic management consult from pharmacy pt will be resumed with out pt insulin dose on discharge DVT ppx Lovenox FULL CODE DISPOSITION Stable to be discharged home today Medicine follow up Ivonne MI Pulmonology follow up with Dr Barker Total time spent on discharge = 40 mins This includes examination of the patient, discharge planning, medication reconciliation, and communication with other providers. Discharge Instructions DI: Medical v4 Discharge Instructions Date of Service Oct 05, 2016. Admission Reason for Admission: Hypoxia, Idiopathic Bronchiectasis, Resp Failure Discharge Discharge Diagnosis / Problem: ACUTE ON CHRONIC RESPIRATORY FAILURE / BRONCHIECTASIS Discharge Goals Goal(s): Increase independence, Diagnostic testing, Therapeutic intervention Activity Recommendations Activity Limitations: resume your previous activity . Instructions / Follow-Up Instructions / Follow-Up HOSPITAL FOLLOW UP WITH FAMILY PHYSICIAN IVONNE MI IN A WEEK , OFFICE WILL CALL WITH APPOINTMENT PULMONOLOGY FOLLOW UP WITH DR BARKER IN 1-2 WEEKS, PLEASE CALL OFFICE FOR APPOINTMENT NEW MEDICATIONS : 1. You are started on Augmentin ( antibiotic ) 1 tab twice daily for 14 days 2. Take probiotic 1 capsule three times daily with meals while taking antibiotic 3. You are discharged with Oral Prednisone taper 30 mg daily for 2 days 25 mg daily for 2 days 20 mg daily for 2 days 15 mg daily for 2 days 10 mg daily for 2 days 5 mg daily for 2 days then stop continue to take Cortif 15 mg daily after finishing Oral Prednisone taper Please call your family physician office if started to have more cough / wheezing or shortness of breath Current Hospital Diet Patient's current hospital diet: AHA Diet (Heart Healthy), Diabetes Type 2 Diet Discharge Diet Recommended Diet: AHA Diet (Heart Healthy), Diabetes Type 2 Diet Pending Studies Studies pending at discharge: no Laboratory Results Hemoglobin A1c Test 10/02/16 06:34 Range/Units Estimated Average Glucose 134 mg/dl Hemoglobin A1c 6.3 H 4.5-5.6 % Medical Emergencies . Who to Call and When: Medical Emergencies: If at any time you feel your situation is an emergency, please call 911 immediately. . Non-Emergent Contact Non-Emergency issues call your: Primary Care Provider . . "Provider Documentation" section prepared by Maria Elena Awad. . VTE Core Measure Inpt VTE Proph given/why not?: Enoxaparin (Lovenox)SQ Additional Copies To Ivonne Subramanian Thomas W., MD
[2016-10-05] MEDS ORDERED: AMOXICILLIN/CLAVULANATE TAB 875 MG TAB PO SCH (18:00)
[2016-11-02] MEDS ORDERED: METO50TA16 PO (09:08)
[2016-11-02] MEDS ORDERED: probiotic PO (09:09)
[2017-01-20] MEDS ORDERED: PRED10TA PO (14:26)
[2017-01-20] MEDS ORDERED: SULF-183 PO (14:26)
== END 2016-10-05 18:30 | disposition home or self-care (01) | DRG 196 ==
LOC: C.EDB 15:05 → C.MED 18:29 → ENRESERV 18:41 → C.MED 10-02 06:38
PROVIDERS: ADMIT Family Medicine; ATTEND Hospitalist
DX: J84.10 Pulmonary fibrosis, unspecified (principal); J96.21 Acute and chronic respiratory failure with hypoxia; I50.31 Acute diastolic (congestive) heart failure; J47.0 Bronchiectasis with acute lower respiratory infection; E24.2 Drug-induced Cushing's syndrome; D80.1 Nonfamilial hypogammaglobulinemia; J20.9 Acute bronchitis, unspecified; B96.89 Other specified bacterial agents as the cause of diseases classified elsewhere; E09.65 Drug or chemical induced diabetes mellitus with hyperglycemia; T38.0X5S Adverse effect of glucocorticoids and synthetic analogues, sequela; R07.9 Chest pain, unspecified; R00.0 Tachycardia, unspecified; J32.9 Chronic sinusitis, unspecified; Z98.890 Other specified postprocedural states; Z99.81 Dependence on supplemental oxygen; Z79.52 Long term (current) use of systemic steroids; Z79.82 Long term (current) use of aspirin; Z79.4 Long term (current) use of insulin; Z79.899 Other long term (current) drug therapy

== ENCOUNTER → 2016-10-25 | Outpatient (CLI) | payer OTHER ==
[~2016-10-25] MED LIST changes: +ALBINS INH; +AMOX1TAB43 PO; +FSM70 PO; -FSMD/70 PO; +HYDR5TAB57 PO; -INSU1INJ2 SQ; +METO50TA16 PO; +MISCCAP80 PO; +NVLNI SQ; +PRD10 PO; -PRED-301 PO; +PRED10TA PO; +SULF-183 PO; +probiotic PO
[2016-10-25 18:08] LABS: PROTHROMBIN TIME (PATIENT) 10.3 SECONDS (9.0-12.0)
[2016-10-25 18:13] LABS: BASO % 0.3 %; BASO ABS # 0.02 K/uL (0-0.2); COMPLETE YES; EOS % 3.4 %; HEMATOCRIT 33.8 % (37-47); IG% 0.1 %; LYMPH % 15.3 %; LYMPH ABS # 1.21 K/uL (1.2-3.4); MEAN CORPUSCULAR HEMOGLOBIN 26.2 pg (25-34); MEAN CORPUSCULAR HGB CONC 30.5 g/dl (32-36); MONO % 3.7 %; NEUT % 77.2 %; PLATELET COUNT 264 K/uL (130-400); RED BLOOD COUNT 3.93 M/uL (4.2-5.4); WHITE BLOOD COUNT 7.89 K/uL (4.8-10.8)
[2016-10-25 18:14] LABS: BLOOD UREA NITROGEN 12 mg/dl (7-18); BUN/CREATININE RATIO 12.8 (10-20); CALCIUM 9.7 mg/dl (8.5-10.1); CARBON DIOXIDE 33 mmol/L (21-32); CHLORIDE 100 mmol/L (98-107); CREATININE 0.91 mg/dl (0.60-1.20); GLUCOSE 194 mg/dl (70-99); POTASSIUM 4.3 mmol/L (3.5-5.1); SODIUM 136 mmol/L (136-145)
== END | disposition home or self-care (01) ==
LOC: C.LABMFLN 14:57
PROVIDERS: ATTEND Physician Assistant
DX: J47.9 Bronchiectasis, uncomplicated (principal); R06.02 Shortness of breath; J96.10 Chronic respiratory failure, unspecified whether with hypoxia or hypercapnia

== ENCOUNTER → 2016-11-02 | Day surgery (SDC) | payer OTHER ==
[2016-11-02] VITALS (14 sets, daily range): BP systolic 90–131; BP diastolic 61–81; PULSE 91–108; TEMP 36.5–37; O2SAT 90–100; Ht 162.6 cm; Wt 83.0 kg
[~2016-11-02] VITALS: Ht 162.6 cm; Wt 83.0 kg
[~2016-11-02] MED LIST changes: +FENTANYL CITRATE 100 MCG 2 ML CARP IV ONE; +FENTANYL CITRATE INJ 50 MCG/1 ML 2 ML VIAL IV ONE; +LIDOCAINE HCL 2% LOCAL 50ML VIAL INFIL ONE; +MIDAZOLAM HCL 5 MG/ML 1 ML VIAL IV ONE; +NURSING VERBAL MED ORDER ONE; +SODIUM CHLORIDE 0.9% 1000ML 1,000 ML IV SCH
--- NOTE | 2016-11-02 09:06 | History and Physical ---
History & Physical Date Nov 02, 2016. Chief Complaint Chronic Bronchiectasis History of Present Illness The patient is a 56 year old female with complaints of Chronic Bronchiectasis 56-year-old female to follow-up care for bronchiectasis. Prior records reviewed. PMHx includes bronchiectasis (+ vibration vest), frequent hospitalizations for acute on chronic resp failure (01/02 - 01/11/14, 01/22, 03/24 , 06/23, 07/2014, 08/2014, 09/23, 10/23, 02/2016, 06/2016), multiple /bronchoscopies ( + Stenotrophomonas maltophilia: 01/08/14 & 01/02/15 & 10/21/14, 11/19/14, Haemophilus influenzae: 06/19/14, coryne. pseudodiphtheriticum 08/15/14, staphylococcus 11/19/14, MAURICIO, Stenotrophomonas xanthomonas 06/30-sputum), Blood cultures from 03/2016 + coag neg staph (seen by ID), O2 dependence 2-3LPM, sleep apnea (no CPAP + nocturnal O2), pulmonary nodules, c.diff, bilateral eustachian tube dysfunction, HLD, steroid induced diabetes, hypogammaglobulinemia on IVIG. She uses trilogy QHS. Patient has been followed for several years for frequent exacerbation of bronchiectasis. She did undergo frequent bronchoscopies in [id number]. She receives IVIG through [facility] in conjunction with initiation of Trilogy QHS and has done well. Patient was admitted to [facility] 06/2016 with hypoxic hypercapnic respiratory failure and exacerbation of reflux. She was tapered to maintenance 7mg prednisone / day. CXR 06/21: interstitial infiltrates superimposed on chronic interstitial fibrosis. ECHO: pEF. Despite acute in-patient treatment, she continued to be symptomatic and was readmitted to [facility] . She was scheduled for an outpatient bronchoscopy however symptoms progressed and she was ultimately admitted to [facility] in July. CT sinus 07/14/16: bilateral ethmoid and frontal thickening, air fluid-air levels in the maxillary sinus. 08/04/16 bronchoscopy: lavage of thick mucous secretions from bilateral bronchial trees. Cultures + quinolone resistant Stenotrophomonas maltophilia - sensitive to Bactrim and she was prescribed an additional course. Patient underwent right sided shoulder surgery and did well initially but then began to decline shortly thereafter. She was re-admitted 09/2016 for a short stay and discharged on Augmentin. She was seen 10-[address] Villalta with symptoms of persistent increased chest congestion, cough and dyspnea. He prescribed an additional 14-day course of Bactrim and follow-s up today. Past Medical/Surgical History Medical Problems: (1) Anxiety (2) Asthma (3) Chronic respiratory failure (4) COPD exacerbation (5) Depression (6) Diabetes (7) Emphysema (8) GERD (gastroesophageal reflux disease) (9) Hyperlipidemia (10) Idiopathic bronchiectasis (11) Mild pulmonary hypertension (12) BILL (obstructive sleep apnea) (13) Oxygen dependent (14) Pneumonia (15) Respiratory failure, paudt-sh-cageobc (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 (17) Tachycardia Surgical Problems: (1) H/O atrial septal defect repair (2) H/O: hysterectomy (3) History of hysterectomy (4) History of myringotomy (5) Hx of appendectomy (6) Hx of cholecystectomy (7) Hx of tympanostomy tubes (8) S/P bronchoscopy (9) S/P sinus surgery (10) S/P tonsillectomy and adenoidectomy Additional History Hepatic Disease: No Endocrine Disorder: Yes Kidney Disease: No Hypertension: No Heart Disease: No Bleeding Tendencies: No Infectious Diseases: Yes Other: 1. Bronchiectasis 2. Dependence on supplemental oxygen 3. Obesity (BMI 30-39.9) 4. Obstructive sleep apnea 5. Pleurisy 6. Port-a-cath in place 7. Secondary adrenal insufficiency 8. Sleep disturbances 9. Infections: Resp Stenotrophomonas maltophilia resistant to multiple drugs Mycobacterium Avium-intracellulare Complex Allergies Coded Allergies: Albuterol (Verified Allergy, Mild, CHEST PAIN, 10/01/16) PT STATES "IF TAKE TOO MUCH DEVELOPS CHEST PAIN". TOLERATE LEVALBUTEROL 04/2015 Home Medications Scheduled Alendronate Sodium (Alendronate Sodium), 70 MG PO TUESDAYS Amoxicillin & Pot Clavulanate (Amoxicillin/Clavulanate P), 875 MG PO BIDM Aspirin (Aspirin Chewable), 81 MG PO QAM Calcium Carbonate-Vitamin D W/ (Caltrate 600 Plus), 1 TAB PO BID Cyanocobalamin (Vitamin B12), 1,000 MCG PO DAILY Ferrous Sulfate (Ferrous Sulfate), 325 MG PO DAILY Fluticasone Propionate (Nasal) (Flonase Allergy Relief), 2 SPRY ESPERANZA QAM Folic Acid (Folic Acid), 1 TAB PO QAM Home O2 Therapy (Oxygen), 4 LITERS NA DAILY Hydrocortisone (Cortef), 15 MG PO QAM Insulin Human NPH (Novolin N), 10 UNITS SQ QAM Magnesium Oxide (Mg Supplement (Magnesium), 400 MG PO DAILY Metoprolol Tartrate (Lopressor), 50 MG PO BID Multiple Vitamin (Multivitamin), 1 TAB PO QAM Pantoprazole (Protonix), 40 MG PO QAM Prednisone (Prednisone), 30 MG PO UD Probiotic Product (Probiotic), 1 CAP PO TIDM Scheduled PRN Albuterol Sulf (Albuterol Sulfate), 3 ML NEB Q4H PRN for sob/wheezing Dextromethorphan-Guaifenesin (Mucinex Dm Maximum Streng), 1 TAB PO BID PRN for Nasal Congestion Physical Examination Skin: warm/dry, no rash Eyes: normal inspection, EOMI, sclerae normal ENT: normal ENT inspection, pharynx normal Head: normocephalic, atraumatic Neck: supple, no adenopathy, trachea midline Respiratory/Chest: + pertinent finding (rhonchi in the RUL >> RLL) Abdomen / GI: normal bowel sounds, non tender Back: normal inspection Extremities: normal inspection, normal range of motion Neurologic/Psych: no motor/sensory deficits, alert, normal reflexes, oriented x 3 Diagnosis Chronic Bronchiectasis ASA Classification: ASA Class III Plan of Treatment Bronchoscopy with BAL
--- NOTE | 2016-11-02 10:12 | History & Physical Bridge Note ---
H&P Re-Evaluation Bridge Note: I have examined the patient, reviewed the History & Physical and in the interval since the performance of the History & Physical I have noted the following changes of clinical significance: No changes noted
--- NOTE | 2016-11-02 10:12 | Procedure Note ---
Pre-Mod Sedation Assessment General Date of Moderate Sedation: Nov 02, 2016. Vital Signs: Vital Signs Past 12 Hours Date Time Temp Pulse Resp B/P (MAP) Pulse Ox O2 Delivery O2 Flow Rate FiO2 11/02/16 09:59 36.8 96 20 124/76 96 Nasal Cannula 3.0 11/02/16 09:17 36.8 96 20 124/76 (92) 96 Nasal Cannula 3 Review Cardiovascular: regular rate, rhythm, no edema, no gallop, no JVD, no murmur, normal peripheral pulses Abdomen: normal bowel sounds, non tender, soft, no organomegaly, no pulsatile mass, normal rectal exam, occult blood negative Lungs: + pertinent finding (rhonchi along the right hemithorax) Pre-Sedation Airway Assessment Oral Cavity: Dentures, WNL Able to Visualize Vocal Cords: Yes Short Thick Neck: Yes Hx of Sleep Apnea: No Smoking Status: Never Smoker Mallampati Classification: Class III ASA Classification: Class III Procedure Planning Contraindications-for Mod Sed: None Yes Notes The planned sedation has been discussed with the patient and consent obtained. I have identified the patient, determined the appropriateness of sedation and have assessed the patient immediately prior to the procedure. All medicine(s) and interventions are by my order.
--- NOTE | 2016-11-02 10:53 | Bronchoscopy Procedure Note ---
Bronchoscopy Procedure Note Procedure: Bronchoscopy, conscious sedation, bronchial lavage of the lingula and right middle lobe Consent: Obtained through the patient placed into the chart Pre-procedural diagnosis: Chronic bronchiectasis Post-procedural diagnosis: Chronic bronchiectasis/acute flare Start time: 1030 End time: 1047 Total time: 17 minutes Analgesia: 2% liquid lidocaine: Via nebulizer 4% gel lidocaine: Via right naris 2% liquid lidocaine: Via bronchoscopy Sedation: Versed IV: 3mg Fentanyl IV: 75 g Procedure: The Olympus video bronchoscope was used for this procedure and passed down through the right naris Right naris/posterior naris/posterior oropharynx: Mild pitting in the posterior naris noted Glottis: Anatomically within normal limits Vocal cords: Proper abduction and abduction, anatomically within normal limits Subglottis/trachea/Opal: Anatomically within normal limits Right bronchial tree: Right mainstem bronchus: Anatomically within normal limits Right upper lobe: Anatomically within normal limits Bronchus intermedius: Anatomically within normal limits Right middle lobe: Anatomically within normal limits Right lower lobe: Anatomically within normal limits Findings: There was diffuse mucous plugs and mucus noted throughout the right bronchial tree greatest in the right middle lobe Left bronchial tree: Left mainstem bronchus: Anatomically within normal limits Left upper lobe: Anatomically within normal limits Lingula: Anatomically within normal limits Left lower lobe: Anatomically within normal limits Findings: There are diffuse mucous plugs in mucous throughout the left bronchial tree greatest in the lingula Bronchial alveolar lavage: Lingula and right middle lobe EBL: None Complications: None Follow-up: In the [facility]
--- NOTE | 2016-11-02 10:54 | Procedure Note ---
Post-Moderate Sedation Plan General Date of Moderate Sedation Nov 02, 2016. Vital Signs: Vital Signs Past 12 Hours Date Time Temp Pulse Resp B/P (MAP) Pulse Ox O2 Delivery O2 Flow Rate FiO2 11/02/16 09:59 36.8 96 20 124/76 96 Nasal Cannula 3.0 11/02/16 09:17 36.8 96 20 124/76 (92) 96 Nasal Cannula 3 Review - Discharge Plan Post Moderate Sedation Plan: On clinical assessment, the patient appears to have tolerated the conscious sedation without complications. Patient is recovering as anticipated. Patient will continue to be monitored by nursing and may be discharged when conscious sedation discharge criteria are met.
--- NOTE | 2016-11-02 10:56 | Discharge Instructions ---
Discharge Instructions Date of Service Nov 02, 2016. Admission Reason for Admission: Bronchiectasis Discharge Discharge Diagnosis / Problem: chronic bronchiectasis with acute flare Discharge Goals Goal(s): Improve function, Diagnostic testing Activity Recommendations Activity Limitations: resume your previous activity . Instructions / Follow-Up Instructions / Follow-Up Follow-up in the [place] [facility] Current Hospital Diet Patient's current hospital diet: Discharge Diet Recommended Diet: Regular Diet Procedures Procedures Performed: Bronchial lavage of the lingula and right middle lobe Pending Studies Studies pending at discharge: no Laboratory Results Hemoglobin A1c Test 10/02/16 06:34 Range/Units Estimated Average Glucose 134 mg/dl Hemoglobin A1c 6.3 H 4.5-5.6 % Medical Emergencies . Who to Call and When: Medical Emergencies: If at any time you feel your situation is an emergency, please call 911 immediately. . Non-Emergent Contact Non-Emergency issues call your: Signal Repairer Call Non-Emergent contact if: temperature is above 101.5 . . "Provider Documentation" section prepared by Regino Villalta. . VTE Core Measure Inpt VTE Proph given/why not?: Treatment not indicated
== END | disposition home or self-care (01) ==
LOC: C.ACU 08:26
PROVIDERS: ATTEND Internal Medicine Critical Care Medicine
DX: J47.9 Bronchiectasis, uncomplicated (principal); J44.9 Chronic obstructive pulmonary disease, unspecified; F41.9 Anxiety disorder, unspecified; F32.9 Major depressive disorder, single episode, unspecified; E11.9 Type 2 diabetes mellitus without complications; K21.9 Gastro-esophageal reflux disease without esophagitis; E78.5 Hyperlipidemia, unspecified; G47.33 Obstructive sleep apnea (adult) (pediatric); Z87.01 Personal history of pneumonia (recurrent); E09.8 Drug or chemical induced diabetes mellitus with unspecified complications; Z90.710 Acquired absence of both cervix and uterus; Z90.89 Acquired absence of other organs; Z90.49 Acquired absence of other specified parts of digestive tract; Z68.30 Body mass index [BMI] 30.0-30.9, adult; Z86.19 Personal history of other infectious and parasitic diseases; Z79.82 Long term (current) use of aspirin

== ENCOUNTER 2016-11-29 22:07 | Inpatient (IN) | payer OTHER ==
[~2016-11-29] VITALS: Ht 160 cm; Wt 79.8 kg
[~2016-11-29 22:07] MED LIST changes: -ALBINS INH; -AMOX1TAB43 PO; -FENTANYL CITRATE 100 MCG 2 ML CARP IV ONE; -FENTANYL CITRATE INJ 50 MCG/1 ML 2 ML VIAL IV ONE; -LIDOCAINE HCL 2% LOCAL 50ML VIAL INFIL ONE; -LPR25 PO; -MIDAZOLAM HCL 5 MG/ML 1 ML VIAL IV ONE; -MISCCAP80 PO; -NURSING VERBAL MED ORDER ONE; -PRD10 PO; -PRED10TA PO; -SODIUM CHLORIDE 0.9% 1000ML 1,000 ML IV SCH; -SULF-183 PO
[2016-11-29] MEDS ORDERED: LEVALBUTEROL 1.25MG/3ML NEB INH STA (22:31)
[2016-11-29] MEDS ORDERED: MAGNESIUM SULFATE 1GM / D5W 1 GM BAG IV STA (22:39)
[2016-11-29] MEDS ORDERED: METHYLPREDNISOLONE 125 MG VIAL IV STA (22:39)
--- NOTE | 2016-11-29 23:07 | DIAGNOSTIC IMAGING REPORT ---
CHEST ONE VIEW PORTABLE HISTORY: Short of breath. COMPARISON: Chest 10/03/2016. FINDINGS: There are poststernotomy changes. The heart remains stable in size. No pleural effusions. No pneumothorax. 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 Resurfacing of the right humeral head is again noted. Chronic interstitial thickening is seen throughout the lungs. No new focal lung consolidations. A few scattered nodular densities favor mucoid impaction of the bronchiectasis. This is similar to the prior study. A right jugular Port-A-Cath terminates in the SVC. IMPRESSION: 1. No significant change compared to the prior study. 2. Chronic interstitial thickening, bronchiectasis, and mucoid impaction of the dilated bronchi are again noted. Electronically signed by: Troy Collier M.D. 11/29/2016 11:06 PM Dictated Date/Time: 11/29/2016 11:02 PM
[2016-11-29 23:21] VITALS: PULSE 129; O2SAT 94
[2016-11-29 23:22] VITALS: PULSE 129; O2SAT 97
[2016-11-29 23:32] LABS: BASO % 0.2 %; BASO ABS # 0.03 K/uL (0-0.2); COMPLETE YES; EOS % 3.7 %; HEMATOCRIT 32.5 % (37-47); IG% 0.2 %; LYMPH % 16.3 %; LYMPH ABS # 2.04 K/uL (1.2-3.4); MEAN CELL VOLUME 82.9 fL (80-100); MEAN CORPUSCULAR HEMOGLOBIN 25.8 pg (25-34); MEAN CORPUSCULAR HGB CONC 31.1 g/dl (32-36); MEAN PLATELET VOLUME 8.9 fL (7.4-10.4); MONO % 5.2 %; NEUT % 74.4 %; PLATELET COUNT 278 K/uL (130-400); RED BLOOD COUNT 3.92 M/uL (4.2-5.4); WHITE BLOOD COUNT 12.55 K/uL (4.8-10.8)
[2016-11-29 23:50] LABS: ARTERIAL BLD GAS O2 SATURATION 95.1 % (90-95); ARTERIAL BLOOD GAS HCO3 33 mmol/L (19-24); ARTERIAL BLOOD GAS PO2 90 mm/Hg (80-95); ARTERIAL BLOOD GAS pH 7.39 (7.35-7.45)
[2016-11-29 23:51] LABS: ALLEN TEST POS (POS)
[2016-11-29 23:51] LABS: ALT/SGPT 20 U/L (12-78); AST/SGOT 16 U/L (15-37); BLOOD UREA NITROGEN 11 mg/dl (7-18); BUN/CREATININE RATIO 15.9 (10-20); CALCIUM 9.4 mg/dl (8.5-10.1); CARBON DIOXIDE 35 mmol/L (21-32); CHLORIDE 97 mmol/L (98-107); CREATININE 0.71 mg/dl (0.60-1.20); GLUCOSE 167 mg/dl (70-99); POTASSIUM 4.3 mmol/L (3.5-5.1); SODIUM 135 mmol/L (136-145)
[2016-11-29 23:52] LABS: O2 ADMINISTRATION 40% FIO2
[2016-11-29 23:56] LABS: ALB/GLOB RATIO 0.5 (0.9-2); ALKALINE PHOSPHATASE 84 U/L (45-117)
[2016-11-30] VITALS (16 sets, daily range): BP systolic 108–162; BP diastolic 63–80; PULSE 75–111; TEMP 36.4–37.2; O2SAT 91–99; Ht 160 cm; Wt 79.8 kg
[2016-11-30] MEDS ORDERED: ACETAMINOPHEN 500 MG TAB PO STA (00:02)
[2016-11-30] MEDS ORDERED: METOPROLOL TARTRATE 1 MG/ML VIAL IV STA (00:12)
--- NOTE | 2016-11-30 00:15 | EMERGENCY ROOM VISIT NOTE ---
History Report prepared by Alvaro: Alcira Montoya Under the Supervision of: Dr. Papito Hamm M.D. First contact with patient: 22:31 Chief Complaint: CARDIAC ASSESSMENT Stated Complaint: CHEST PAIN, SOB, INCREASE HR, HEADACHE History of Present Illness The patient is a 56 year old female who presents to the Emergency Room with complaints of constant chest pain beginning today. The patient states that she has a history of COPD and she retains CO2. She notes that she has been experiencing worsening shortness of breath, increased heart rate, and a headache. She reports that she has a sensitivity to albuterol. The patient rates her pain as a 4/10 in severity. Source of History: patient Onset: today Position: chest Symptom Intensity: 4/10 Timing: constant Associated Symptoms: + headache, + SOB Note: Pt complains of increased heart rate. Review of Systems See HPI for pertinent positives & negatives. A total of 10 systems reviewed and were otherwise negative. 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 (17) Tachycardia Surgical Problems: (1) H/O atrial septal defect repair (2) H/O: hysterectomy (3) History of hysterectomy (4) History of myringotomy (5) Hx of appendectomy (6) Hx of cholecystectomy (7) Hx of tympanostomy tubes (8) S/P bronchoscopy (9) S/P sinus surgery (10) S/P tonsillectomy and adenoidectomy Family History Cancer Diabetes mellitus Gallbladder disease Heart disease Hypertension Kidney disease Kidney stones Lung disease Social History Smoking Status: Never Smoker Alcohol Use: none Drug Use: none Marital Status: single Current/Historical Medications Scheduled Alendronate Sodium (Alendronate Sodium), 70 MG PO TUESDAYS Aspirin (Aspirin Chewable), 81 MG PO QAM Calcium Carbonate-Vitamin D W/ (Caltrate 600 Plus), 1 TAB PO BID Cyanocobalamin (Vitamin B12), 1,000 MCG PO DAILY Ferrous Sulfate (Ferrous Sulfate), 325 MG PO DAILY Fluticasone Propionate (Nasal) (Flonase Allergy Relief), 2 SPRY ESPERANZA QAM Folic Acid (Folic Acid), 1 TAB PO QAM Home O2 Therapy (Oxygen), 4 LITERS NA DAILY Hydrocortisone (Cortef), 15 MG PO QAM Insulin Human NPH (Novolin N), 10 UNITS SQ QAM Magnesium Oxide (Mg Supplement (Magnesium), 400 MG PO DAILY Metoprolol Tartrate (Lopressor) (Lopressor), 1 TAB PO BID Multiple Vitamin (Multivitamin), 1 TAB PO QAM Pantoprazole (Protonix), 40 MG PO QAM [probiotic], 1 CAP PO DAILY Scheduled PRN Albuterol Sulf (Albuterol Sulfate), 3 ML NEB Q4H PRN for sob/wheezing Dextromethorphan-Guaifenesin (Mucinex Dm Maximum Streng), 1 TAB PO BID PRN for Nasal Congestion Allergies Coded Allergies: Albuterol (Verified Allergy, Mild, CHEST PAIN, 11/02/16) PT STATES "IF TAKE TOO MUCH DEVELOPS CHEST PAIN". TOLERATE LEVALBUTEROL 04/2015 Physical Exam Vital Signs Date Time Temp Pulse Resp B/P (MAP) Pulse Ox O2 Delivery O2 Flow Rate FiO2 11/30/16 00:36 102 20 119/100 97 BiPAP 11/30/16 00:22 115 24 122/89 97 BiPAP 11/30/16 00:20 115 122/89 11/29/16 23:22 129 97 40 11/29/16 23:21 129 24 94 Nasal Cannula 6.0 11/29/16 23:21 125 24 140/87 96 11/29/16 23:00 BiPAP 11/29/16 22:59 128 11/29/16 22:27 94 6.0 11/29/16 22:14 37.2 127 22 135/88 93 Room Air Physical Exam GENERAL: Patient is in severe distress HEAD: Normocephalic atraumatic EYES: Ocular movements intact pupils equal and react to light OROPHARYNX mucous membranes are moist no exudates present no erythema or edema present NECK: Supple no nuchal rigidity CHEST: Good equal expansion LUNGS: Extremely short of breath, tripoding, bilateral wheezing. CARDIAC: Normal S1 and S2 ABDOMEN: Soft nontender no guarding BACK: No CVA tenderness EXTREMITIES: No pain upon palpation normal muscle strength in all groups no clubbing cyanosis or edema NEURO: Patient is following commands and answering questions appropriately. Alert and oriented x3 Cranial Nerves 2-12 grossly intact Medical Decision & Procedures ER Provider Diagnostic Interpretation: X-ray results as stated below per interpretation by me and the radiologist: CHEST ONE VIEW PORTABLE FINDINGS: There are poststernotomy changes. The heart remains stable in size. No pleural effusions. No pneumothorax. 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 Resurfacing of the right humeral head is again noted. Chronic interstitial thickening is seen throughout the lungs. No new focal lung consolidations. A few scattered nodular densities favor mucoid impaction of the bronchiectasis. This is similar to the prior study. A right jugular Port-A-Cath terminates in the SVC. IMPRESSION: 1. No significant change compared to the prior study. 2. Chronic interstitial thickening, bronchiectasis, and mucoid impaction of the dilated bronchi are again noted. Electronically signed by: Troy Collier M.D. 11/29/2016 11:06 PM Dictated Date/Time: 11/29/2016 11:02 PM Laboratory Results 11/29/16 23:15 Red Blood Count 3.92, Mean Corpuscular Volume 82.9, Mean Corpuscular Hemoglobin 25.8, Mean Corpuscular Hemoglobin Concent 31.1, Mean Platelet Volume 8.9, Neutrophils (%) (Auto) 74.4, Lymphocytes (%) (Auto) 16.3, Monocytes (%) (Auto) 5.2, Eosinophils (%) (Auto) 3.7, Basophils (%) (Auto) 0.2, Neutrophils # (Auto) 9.33, Lymphocytes # (Auto) 2.04, Monocytes # (Auto) 0.65, Eosinophils # (Auto) 0.47, Basophils # (Auto) 0.03 11/29/16 23:15 Test 11/29/16 23:15 11/29/16 23:26 11/30/16 00:37 White Blood Count 12.55 K/uL (4.8-10.8) Red Blood Count 3.92 M/uL (4.2-5.4) Hemoglobin 10.1 g/dL (12.0-16.0) Hematocrit 32.5 % (37-47) Mean Corpuscular Volume 82.9 fL (80-100) Mean Corpuscular Hemoglobin 25.8 pg (25-34) Mean Corpuscular Hemoglobin Concent 31.1 g/dl (32-36) Platelet Count 278 K/uL (130-400) Mean Platelet Volume 8.9 fL (7.4-10.4) Neutrophils (%) (Auto) 74.4 % Lymphocytes (%) (Auto) 16.3 % Monocytes (%) (Auto) 5.2 % Eosinophils (%) (Auto) 3.7 % Basophils (%) (Auto) 0.2 % Neutrophils # (Auto) 9.33 K/uL (1.4-6.5) Lymphocytes # (Auto) 2.04 K/uL (1.2-3.4) Monocytes # (Auto) 0.65 K/uL (0.11-0.59) Eosinophils # (Auto) 0.47 K/uL (0-0.5) Basophils # (Auto) 0.03 K/uL (0-0.2) RDW Standard Deviation 48.2 fL (36.4-46.3) RDW Coefficient of Variation 15.8 % (11.5-14.5) Immature Granulocyte % (Auto) 0.2 % Immature Granulocyte # (Auto) 0.03 K/uL (0.00-0.02) Activated Partial Thromboplast Time 35.6 SECONDS (21.0-31.0) Partial Thromboplastin Ratio 1.4 Anion Gap 3.0 mmol/L (3-11) Est Creatinine Clear Calc Drug Dose 91.3 ml/min Estimated GFR () 111.1 Estimated GFR (Non- 95.9 BUN/Creatinine Ratio 15.9 (10-20) Calcium Level 9.4 mg/dl (8.5-10.1) Magnesium Level 2.2 mg/dl (1.8-2.4) Total Bilirubin 0.3 mg/dl (0.2-1) Aspartate Amino Transf (AST/SGOT) 16 U/L (15-37) Alanine Aminotransferase (ALT/SGPT) 20 U/L (12-78) Alkaline Phosphatase 84 U/L (45-117) Total Creatine Kinase 33 U/L (26-192) Creatine Kinase MB < 0.5 ng/ml (0.5-3.6) Creatine Kinase MB Ratio (0-3.0) Troponin I < 0.015 ng/ml (0-0.045) Total Protein 8.4 gm/dl (6.4-8.2) Albumin 2.9 gm/dl (3.4-5.0) Globulin 5.5 gm/dl (2.5-4.0) Albumin/Globulin Ratio 0.5 (0.9-2) Arterial Blood pH 7.39 (7.35-7.45) Arterial Blood Partial Pressure CO2 56 mmHg (35-46) Arterial Blood Partial Pressure O2 90 mm/Hg (80-95) Arterial Blood HCO3 33 mmol/L (19-24) Arterial Blood Oxygen Saturation 95.1 % (90-95) Arterial Blood Base Excess 7.0 mEq/L (-9-1.8) Arterial Blood Gas Delivery 40% FIO2 Gui Test POS (POS) Labs reviewed by ED physician. Medications Administered Medications (Trade) Dose Ordered Sig/Man Route Start Time Stop Time Status Last Admin Dose Admin Levalbuterol (Xopenex 1.25MG/ 3ML Neb) 1.25 mg NOW STAT INH 11/29/16 22:31 11/29/16 22:33 DC 11/29/16 22:31 1.25 MG Methylprednisolone Sodium Succinate (Solu-Medrol IV) 125 mg NOW STAT IV 11/29/16 22:39 11/29/16 22:41 DC 11/29/16 23:27 125 MG Magnesium Sulfate (Magnesium Sulfate) 1 gm NOW STAT IV 11/29/16 22:39 11/29/16 22:41 DC 11/29/16 23:29 1 GM Acetaminophen (Tylenol Tab) 1,000 mg NOW STAT PO 11/30/16 00:02 11/30/16 00:03 DC 11/30/16 00:27 1,000 MG Metoprolol Tartrate (Lopressor Iv) 2.5 mg NOW STAT IV 11/30/16 00:12 11/30/16 00:17 DC 11/30/16 00:20 2.5 MG ECG Indication: chest pain Rate (beats per minute): 130 Rhythm: sinus tachycardia Findings: no acute ischemic change, no ectopy, other (short PA) ED Course 2231: Past medical records reviewed. The patient was evaluated in room B6. A complete history and physical examination was performed. 2331: Levalbuterol 1.25mg INH. 2239: Magnesium Sulfate 1gm IV, Solu-Medrol IV 125mg IV. 0002: Tylenol Tab 1000mg PO. 0005: I discussed the patient's case with Dr. Silverio, he has agreed to evaluate the patient for further management and care. [id number] reexamination the patient is doing well. I discussed results and treatment plan with the patient. She verbalizes agreement and understanding. [facility] The patient will be evaluated for further management. Medical Decision Differential diagnosis: Etiologies such as infections, reactive airway disease, pneumonia, pneumothorax , COPD, CHF, cardiac ischemia, pulmonary embolism, musculoskeletal, gastrointestinal, as well as others were entertained. This is a 56-year-old female who presents emergency department complaining of shortness of breath. The patient is a history of COPD exacerbations. She is in moderate distress upon arrival to the emergency department therefore is placed on BiPAP. An ABG was obtained and the patient is slightly retaining. She was given magnesium Solu-Medrol as well as an hour-long Xopenex treatment. Based on the fact that the patient is requiring BiPAP I did discuss the case with the hospitalist service I'll note she is much improved after the treatments. Patient and family were in agreement with the treatment plan. Medication Reconcilliation Current Medication List: was personally reviewed by me Blood Pressure Screening Patient's blood pressure: Elevated blood pressure Blood pressure disposition: Elevated BP felt to be situational Consults Time Called: 2016 Consulting Physician: Dr. Silverio - [facility] Returned Call: [phone] I discussed the patient's case with Dr. Silverio, he has agreed to evaluate the patient for further management and care. Impression Primary Impression: Hypoxia Additional Impression: COPD exacerbation Scribe Attestation The scribe's documentation has been prepared under my direction and personally reviewed by me in its entirety. I confirm that the note above accurately reflects all work, treatment, procedures, and medical decision making performed by me. Departure Information Dispostion Being Evaluated By Hospitalist Referrals Ivonne Subramanian (PCP) Patient Instructions [facility] Problem Qualifiers
[2016-11-30 00:22] LABS: MAGNESIUM 2.2 mg/dl (1.8-2.4)
[2016-11-30 00:28] LABS: PARTIAL THROMBOPLASTIN RATIO 1.4
[2016-11-30] MEDS ORDERED: DEXTROSE 50% 50 ML SYR IV PRN (00:45)
[2016-11-30] MEDS ORDERED: ACETAMINOPHEN 325 MG TAB PO PRN (00:45)
[2016-11-30] MEDS ORDERED: GLUCOSE 10 TABS/TUBE PO PRN (00:45)
[2016-11-30] MEDS ORDERED: TRAMADOL HCL 50 MG TAB PO PRN (00:45)
[2016-11-30] MEDS ORDERED: SODIUM CHLORIDE 0.9% 1000ML 1,000 ML IV ONE (00:45)
[2016-11-30] MEDS ORDERED: GLUCOSE 40% GEL 15 GM TUBE PO PRN (00:45)
[2016-11-30] MEDS ORDERED: LEVALBUTEROL/IPRATROPIUM NEB INH PRN (00:45)
[2016-11-30] MEDS ORDERED: GLUCAGON FOR INJ 1 MG VIAL SQ PRN (00:45)
[2016-11-30] MEDS ORDERED: MoRPHine SULFATE 4 MG/ML 1 ML CARP\\VIAL IV PRN (00:45)
[2016-11-30] MEDS ORDERED: METOPROLOL TARTRATE 50 MG TAB PO STA (00:56)
[2016-11-30] MEDS ORDERED: INSULIN ASPART 100 UNITS/ML 3 ML PEN SC STA (00:57)
[2016-11-30] MEDS ORDERED: INSULIN GLARGINE SOLOSTAR 100 UNITS/ML 3 ML PEN SC STA (00:58)
[2016-11-30] MEDS ORDERED: CEFTAZIDIME IV 1 GM in DEXTROSE 5% ADD-VANTAGE 50ML 50 ML IV STA (00:59)
[2016-11-30] MEDS ORDERED: IPRATROPIUM BROMIDE NEB SOLN 0.02% 2.5 ML VIAL INH PRN (01:00)
[2016-11-30] MEDS: LEVALBUTEROL 1.25MG/0.5ML NEB INH SCH ×5 (02:10→19:22)
[2016-11-30] MEDS: IPRATROPIUM BROMIDE NEB SOLN 0.02% 2.5 ML VIAL INH SCH ×4 (02:10→23:03)
--- NOTE | 2016-11-30 02:21 | HISTORY & PHYSICAL EXAMINATION ---
DATE OF ADMISSION: 11/30/2016 PRIMARY CARE DOCTOR: Saran Patel [place]. HISTORY OF PRESENT ILLNESS: History obtained from patient and records. Medical history significant for chronic respiratory failure secondary to idiopathic bronchiectasis on home O2 (steroid-dependent disease), hx hypogammaglobulinemia as per records, chronic anemia (baseline hemoglobin 10), steroid-induced diabetes, hx Stenotrophomonas sputum cultures status post Bactrim course. Recent confinement last 09/2016 for acute on chronic respiratory failure, bronchiectasis, exacerbation of lung disease. Sputum cultures grew Stenotrophomonas maltophilia. Px discharged on Augmentin. Patient underwent bronchoscopy last month by [facility]. Copious secretions noted in the lingula as well as right middle lobe. Moderate secretions in the patient's left upper lobe as well as right lower lobe which were flushed and cleared. Sputum cultures, Stenotrophomonas maltophilia, sensitive to Bactrim, ceftazidime; resistant to levofloxacin. Patient was prescribed Bactrim course. Cough sx improved since that bronchoscopy. Px had followup with [facility] 2 weeks ago. Patient started on another course of Bactrim which the patient completed last week. Yesterday, the patient noted increased cough, shortness of breath symptoms, cough productive of yellow green sputum. Substernal tightness from coughing. No unusual weight gain. In the Emergency Room, the patient received Solu-Medrol, breathing treatment for recurrent bronchitis. BiPAP initiated. MEDICAL HISTORY: As above. SURGERIES: Atrioseptal defect repair, hysterectomy, appendectomy, cholecystectomy, sinus surgery, tonsillectomy, adenoidectomy. HOME MEDICATIONS: Include aspirin, alendronate, Caltrate, vitamin B12, Mucinex, ferrous sulfate, fluticasone, folic acid, oxygen, hydrocortisone, Novolin, magnesium, multivitamins, Lopressor, Protonix, probiotic, albuterol. FAMILY HISTORY: Heart disease, diabetes. PERSONAL AND SOCIAL HISTORY: Nonsmoker. No chronic intake of alcoholic beverages. On disability. REVIEW OF SYSTEMS: As per HPI, all other ROS negative. PHYSICAL EXAMINATION: VITAL SIGNS: Blood pressure was noted to be 135/88, pulse rate 127, RR 24, temperature 37.2, sats 93 on room air, later 97 on 40% BiPAP. GENERAL: Noted to be in minimal respiratory distress. SKIN: Pallor. HEENT: Pale palpebral conjunctivae. Dry mucosa. NECK: No JVD. Supple. CHEST: Occasional wheeze, bibasilar rhonchi. ABDOMEN: Soft. EXTREMITIES: No edema, no tenderness. NEUROLOGIC: No gross focality. LABORATORY DATA: Hemoglobin 10.1, hematocrit 32.5, white cell count 12.65, platelets 278. Sodium 135, potassium 4.3, chloride 97, CO2 of 25, BUN 11, creatinine 0.7, glucose 177. Hemoglobin A1c from 09/2016 was 6.3. ABG: pH 7.39, pCO2 of 57, pO2 of 90 and 95% on 40% FiO2. Chest x-ray, no significant change, chronic, significant bronchiectasis, mucoid impaction, dilated bronchi. ASSESSMENT: 1. Acute on chronic hypoxemic respiratory failure secondary to bronchiectasis flare Steroid-dependent disease. possible sepsis. History of Stenotrophomonas growth (Bactrim, Ceftazidime sensitive) on recent sputum CS status post outpatient Bactrim course 2. Compensated respiratory acidosis secondary to above. 3, Hypertension, stable. 4. CAD as per Steroid-induced diabetes. Well controlled as of recent HgA1c 5. Chronic anemia, hemoglobin at baseline. PLAN: PCU. Continue BiPAP. Cultures, check lactic acid nebs, steroids Ceftazidime for now. Pulmonary consult, acute on chronic respiratory failure, bronchiectasis flare ID consult, recurrent bronchiectasis, hx Stenotrophomonas on sputum CS Basal insulin, ISS BG goal 140-180. DVT prophylaxis with Lovenox subcu. Full code. MTDD
[2016-11-30] MEDS ORDERED: LEVALBUTEROL/IPRATROPIUM NEB INH SCH (03:00)
[2016-11-30 07:09] LABS: RED BLOOD COUNT 3.64 M/uL (4.2-5.4); WHITE BLOOD COUNT 9.46 K/uL (4.8-10.8)
[2016-11-30 07:10] LABS: BASO % 0.1 %; BASO ABS # 0.01 K/uL (0-0.2); COMPLETE YES; EOS % 0.1 %; IG% 0.2 %; LYMPH % 6.6 %; LYMPH ABS # 0.62 K/uL (1.2-3.4); MEAN CELL VOLUME 82.4 fL (80-100); MEAN CORPUSCULAR HEMOGLOBIN 25.3 pg (25-34); MEAN CORPUSCULAR HGB CONC 30.7 g/dl (32-36); MEAN PLATELET VOLUME 8.9 fL (7.4-10.4); MONO % 0.6 %; NEUT % 92.4 %; PLATELET COUNT 230 K/uL (130-400)
[2016-11-30 07:15] LABS: URINE APPEARANCE CLEAR (CLEAR); URINE BILIRUBIN NEG (NEG); URINE COLOR YELLOW; URINE NITRITE NEG (NEG); URINE SPECIFIC GRAVITY 1.017 (1.000-1.030); UROBILINOGEN NEG (NEG)
[2016-11-30 07:16] LABS: MANUAL MICROSCOPIC REQUIRED? NO; REVIEW REQ? NO
[2016-11-30 07:18] LABS: PROTHROMBIN TIME (PATIENT) 10.7 SECONDS (9.0-12.0)
[2016-11-30 07:30] LABS: BLOOD UREA NITROGEN 11 mg/dl (7-18); BUN/CREATININE RATIO 16.3 (10-20); CALCIUM 8.9 mg/dl (8.5-10.1); CARBON DIOXIDE 34 mmol/L (21-32); CHLORIDE 101 mmol/L (98-107); CREATININE 0.65 mg/dl (0.60-1.20); GLUCOSE 217 mg/dl (70-99); POTASSIUM 4.7 mmol/L (3.5-5.1); SODIUM 137 mmol/L (136-145)
[2016-11-30] MEDS: FLUTICASONE PROPIONATE NA SPR 16 GM BTL NAE SCH (08:30)
[2016-11-30] MEDS: METOPROLOL TARTRATE 50 MG TAB PO SCH ×2 (08:30→21:05)
[2016-11-30] MEDS: CYANOCOBALAMIN 500 MCG TAB (VIT B-12) PO SCH (08:30)
[2016-11-30] MEDS: LACTOBACILLUS ACIDOPHILUS (FLORANEX) TAB PO SCH (08:31)
[2016-11-30] MEDS: MULTIVITAMIN TAB PO SCH (08:31)
[2016-11-30] MEDS: PANTOprazole SOD 40 MG TAB PO SCH (08:31)
[2016-11-30] MEDS: FERROUS SULFATE 325 MG TAB PO SCH (08:31)
[2016-11-30] MEDS: ASPIRIN 81 MG ECTAB PO SCH (08:31)
[2016-11-30] MEDS: INSULIN ASPART 100 UNITS/ML 3 ML PEN SC SCH ×4 (08:33→21:00)
[2016-11-30] MEDS: ENOXAPARIN 40 MG/0.4 ML SYR SC SCH (08:35)
[2016-11-30] MEDS ORDERED: CEFTAZIDIME PHARMACY CONSULT IN PROGRESS PRN (09:00)
--- NOTE | 2016-11-30 09:40 | Medical Consult ---
Consultation Date of Consultation: Nov 30, 2016. Attending Physician: Harshad Manning DO Reason for Consultation: Recurrent bronchitis History of Present Illness 56-year-old female well known to me from outpatient infectious disease follow- up with long history of idiopathic bronchiectasis, O2 dependence, steroid- induced diabetes mellitus, was undergone recent treatment of exacerbation with cultures positive for to Stenotrophomonas for which she has been treated with Bactrim therapy. she was showing clinical improvement until yesterday, when she had the relatively sudden onset of increasing shortness of breath with hypoxia. She has had cough with mucoid sputum. No report of significant fever or chills. She was admitted to the hospital and started empirically on IV ceftazidime. Chest x-ray without any obvious new infiltrate. This morning she is feeling significantly better with improvement in shortness of breath and cough. Remains afebrile. Sputum cultures are pending, Gram stain with mixed pavan. Past Medical/Surgical History Medical Problems: (1) Atrial fibrillation with rapid ventricular response Status: Acute (2) Atypical pneumonia Status: Acute (3) Bronchiectasis Status: Acute (4) Bronchitis Status: Acute (5) Chronic lung disease Status: Acute (6) COPD exacerbation Status: Acute (7) Dyspnea Status: Acute (8) Fever Status: Acute (9) Fever Status: Acute (10) Hypoxia Status: Acute (11) Hypoxia Status: Acute (12) Hypoxia Status: Acute (13) PNA (pneumonia) Status: Acute (14) PNA (pneumonia) Status: Acute (15) Pneumonia Status: Acute (16) Sepsis Status: Acute (17) SOB (shortness of breath) Status: Acute Medical Problems: (1) Anxiety (2) Asthma (3) Chronic respiratory failure (4) COPD exacerbation (5) Depression (6) Diabetes (7) Emphysema (8) GERD (gastroesophageal reflux disease) (9) Hyperlipidemia (10) Idiopathic bronchiectasis (11) Mild pulmonary hypertension (12) BILL (obstructive sleep apnea) (13) Oxygen dependent (14) Pneumonia (15) Respiratory failure, [id number] (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 (17) Tachycardia Surgical Problems: (1) H/O atrial septal defect repair (2) H/O: hysterectomy (3) History of hysterectomy (4) History of myringotomy (5) Hx of appendectomy (6) Hx of cholecystectomy (7) Hx of tympanostomy tubes (8) S/P bronchoscopy (9) S/P sinus surgery (10) S/P tonsillectomy and adenoidectomy Family History Cancer Diabetes mellitus Gallbladder disease Heart disease Hypertension Kidney disease Kidney stones Lung disease Social History Smoking Status: Never Smoker Drug Use: none Marital Status: single Allergies Coded Allergies: Albuterol (Verified Allergy, Mild, CHEST PAIN, 11/02/16) PT STATES "IF TAKE TOO MUCH DEVELOPS CHEST PAIN". TOLERATE LEVALBUTEROL 04/2015 Current Inpatient Medications Current Inpatient Medications Medications (Trade) Dose Ordered Sig/Man Route Start Time Stop Time Status Last Admin Dose Admin Sodium Chloride 1,000 ml @ 80 mls/hr [id number] ONCE IV 11/30/16 00:45 11/30/16 13:14 11/30/16 01:52 80 MLS/HR Enoxaparin Sodium (Lovenox Inj) 40 mg QAM SC 11/30/16 09:00 12/30/16 08:59 11/30/16 08:35 40 MG Acetaminophen (Tylenol Tab) 650 mg Q4H PRN PO 11/30/16 00:45 12/30/16 00:44 Insulin Aspart (novoLOG ASPART) SLIDING SCALE If C... ACHS SC 11/30/16 07:00 12/30/16 06:59 11/30/16 08:33 5 UNITS Glucose (Glucose 40% Gel) 15-30 GRAMS 15 GRAMS... UD PRN PO 11/30/16 00:45 12/30/16 00:44 Glucose (Glucose Chew Tab) 4-8 Tablets 4 Tabl... UD PRN PO 11/30/16 00:45 12/30/16 00:44 Dextrose (Dextrose 50% 50ML Syringe) 25-50ML OF 50% DW IV FOR... UD PRN IV 11/30/16 00:45 12/30/16 00:44 Glucagon (Glucagon Inj) 1 mg UD PRN SQ 11/30/16 00:45 12/30/16 00:44 Tramadol HCl (Ultram Tab) 25 mg Q6H PRN PO 11/30/16 00:45 12/30/16 00:44 Aspirin (Ecotrin Tab) 81 mg QAM PO 11/30/16 09:00 12/30/16 08:59 11/30/16 08:31 81 MG Ferrous Sulfate (Feosol Tab) 325 mg DAILY PO 11/30/16 09:00 12/30/16 08:59 11/30/16 08:31 325 MG Fluticasone Propionate (Flonase Nasal [place]) 1 sprays QAM ESPERANZA 11/30/16 09:00 12/30/16 08:59 11/30/16 08:30 1 SPRAYS Folic Acid (Folvite Tab) 1 mg QAM PO 11/30/16 09:00 12/30/16 08:59 11/30/16 08:31 1 MG Metoprolol Tartrate (Lopressor Tab) 50 mg BID PO 11/30/16 09:00 12/30/16 08:59 11/30/16 08:30 50 MG Multivitamins (Multivitamin Tab) 1 tab QAM PO 11/30/16 09:00 12/30/16 08:59 11/30/16 08:31 1 TAB Pantoprazole Sodium (Protonix Tab) 40 mg QAM PO 11/30/16 09:00 12/30/16 08:59 11/30/16 08:31 40 MG Cyanocobalamin (Vitamin B-12 Tab) 1,000 mcg DAILY PO 11/30/16 09:00 12/30/16 08:59 11/30/16 08:30 1,000 MCG Lactobacillus Acidophilus (Floranex Tab) 1 tab DAILY PO 11/30/16 09:00 12/30/16 08:59 11/30/16 08:31 1 TAB Morphine Sulfate (MoRPHine SULFATE INJ) 4 mg Q6H PRN IV 11/30/16 00:45 12/14/16 00:44 Prednisone (PredniSONE TAB) 40 mg DAILY PO 11/30/16 09:00 12/05/16 08:59 11/30/16 08:31 40 MG Miscellaneous Information 1 ea DAILY PRN N/A 11/30/16 09:00 12/30/16 08:59 Insulin Glargine (Lantus Solostar Pen) 10 units HS SC 11/30/16 21:00 12/30/16 20:59 Ipratropium [place] (Atrovent 0.02% 0.5MG/2.5ML Neb) 0.5 mg Q6R INH 11/30/16 03:00 12/30/16 02:59 11/30/16 07:04 0.5 MG Levalbuterol (Xopenex 1.25MG/ 0.5ML Neb) 1.25 mg Q6R INH 11/30/16 03:00 12/30/16 02:59 11/30/16 07:04 1.25 MG Ipratropium [place] (Atrovent 0.02% 0.5MG/2.5ML Neb) 0.5 mg Q4H PRN INH 11/30/16 01:00 12/30/16 00:59 Levalbuterol (Xopenex 1.25MG/ 0.5ML Neb) 1.25 mg Q4H PRN INH 11/30/16 01:00 12/30/16 00:59 Ceftazidime 1 gm/ Dextrose 50 ml @ 100 mls/hr Q8H IV 11/30/16 10:00 12/07/16 09:59 Review of Systems All systems were reviewed and are negative except as per HPI Physical Exam Date Time Temp Pulse Resp B/P (MAP) Pulse Ox O2 Delivery O2 Flow Rate FiO2 11/30/16 08:10 36.4 94 18 119/80 (93) 91 Nasal Cannula 4.0 11/30/16 07:05 88 23 99 BiPAP/CPAP 40 11/30/16 05:32 75 96 40 11/30/16 04:00 BiPAP 40 11/30/16 03:26 37.0 92 20 113/76 (88) 97 BiPAP 11/30/16 02:11 103 97 40 11/30/16 02:10 103 23 97 BiPAP/CPAP 40 11/30/16 01:00 37.1 111 22 162/76 91 BiPAP 11/30/16 00:36 102 20 119/100 97 BiPAP 11/30/16 00:22 115 24 122/89 97 BiPAP 11/30/16 00:20 115 122/89 11/29/16 23:22 129 97 40 11/29/16 23:21 129 24 94 Nasal Cannula 6.0 11/29/16 23:21 125 24 140/87 96 11/29/16 23:00 BiPAP 11/29/16 22:59 128 11/29/16 22:27 94 6.0 11/29/16 22:14 37.2 127 22 135/88 93 Room Air General Appearance: WD/WN, no apparent distress, + obese Head: normocephalic, atraumatic Eyes: normal inspection, EOMI, sclerae normal ENT: normal ENT inspection, hearing grossly normal, pharynx normal Neck: supple, no adenopathy, thyroid normal, trachea midline Respiratory/Chest: chest non-tender, no respiratory distress, + rales, + rhonchi, + wheezing Cardiovascular: regular rate, rhythm, no gallop, no murmur Abdomen/GI: normal bowel sounds, non tender, soft, no organomegaly Back: normal inspection, no CVA tenderness Extremities/Musculoskelatal: no calf tenderness, non-tender Neurologic/Psych: alert, oriented x 3 Skin: normal color, warm/dry, no rash Lymphatic: no adenopathy Laboratory Results Date/Time Source Procedure Growth Status 11/30/16 01:40 Blood Blood Culture Pending Received 11/30/16 01:30 Blood Blood Culture Pending Received 11/30/16 02:04 Sputum Expectorated Sputum Gram Stain - Final Resulted 11/30/16 02:04 Sputum Expectorated Sputum Sputum Culture Pending Resulted Last 24 Hours Test 11/29/16 23:15 11/29/16 23:26 11/30/16 01:40 11/30/16 01:56 White Blood Count 12.55 K/uL Red Blood Count 3.92 M/uL Hemoglobin 10.1 g/dL Hematocrit 32.5 % Mean Corpuscular Volume 82.9 fL Mean Corpuscular Hemoglobin 25.8 pg Mean Corpuscular Hemoglobin Concent 31.1 g/dl Platelet Count 278 K/uL Mean Platelet Volume 8.9 fL Neutrophils (%) (Auto) 74.4 % Lymphocytes (%) (Auto) 16.3 % Monocytes (%) (Auto) 5.2 % Eosinophils (%) (Auto) 3.7 % Basophils (%) (Auto) 0.2 % Neutrophils # (Auto) 9.33 K/uL Lymphocytes # (Auto) 2.04 K/uL Monocytes # (Auto) 0.65 K/uL Eosinophils # (Auto) 0.47 K/uL Basophils # (Auto) 0.03 K/uL RDW Standard Deviation 48.2 fL RDW Coefficient of Variation 15.8 % Immature Granulocyte % (Auto) 0.2 % Immature Granulocyte # (Auto) 0.03 K/uL Activated Partial Thromboplast Time 35.6 SECONDS Partial Thromboplastin Ratio 1.4 Sodium Level 135 mmol/L Potassium Level 4.3 mmol/L Chloride Level 97 mmol/L Carbon Dioxide Level 35 mmol/L Anion Gap 3.0 mmol/L Blood Urea Nitrogen 11 mg/dl Creatinine 0.71 mg/dl Est Creatinine Clear Calc Drug Dose 91.3 ml/min Estimated GFR () 111.1 Estimated GFR (Non- 95.9 BUN/Creatinine Ratio 15.9 Random Glucose 167 mg/dl Calcium Level 9.4 mg/dl Magnesium Level 2.2 mg/dl Total Bilirubin 0.3 mg/dl Aspartate Amino Transf (AST/SGOT) 16 U/L Alanine Aminotransferase (ALT/SGPT) 20 U/L Alkaline Phosphatase 84 U/L Total Creatine Kinase 33 U/L Creatine Kinase MB < 0.5 ng/ml Creatine Kinase MB Ratio Troponin I < 0.015 ng/ml Total Protein 8.4 gm/dl Albumin 2.9 gm/dl Globulin 5.5 gm/dl Albumin/Globulin Ratio 0.5 Arterial Blood pH 7.39 Arterial Blood Partial Pressure CO2 56 mmHg Arterial Blood Partial Pressure O2 90 mm/Hg Arterial Blood HCO3 33 mmol/L Arterial Blood Oxygen Saturation 95.1 % Arterial Blood Base Excess 7.0 mEq/L Arterial Blood Gas Delivery 40% FIO2 Gui Test POS Lactic Acid Level 0.7 mmol/L Bedside Glucose 208 mg/dl Test 11/30/16 04:44 11/30/16 06:00 11/30/16 06:46 11/30/16 07:02 Sodium Level 137 mmol/L Potassium Level 4.7 mmol/L Chloride Level 101 mmol/L Carbon Dioxide Level 34 mmol/L Anion Gap 2.0 mmol/L Blood Urea Nitrogen 11 mg/dl Creatinine 0.65 mg/dl Est Creatinine Clear Calc Drug Dose 97.6 ml/min Estimated GFR () 115.8 Estimated GFR (Non- 99.9 BUN/Creatinine Ratio 16.3 Random Glucose 217 mg/dl Calcium Level 8.9 mg/dl Troponin I < 0.015 ng/ml Urine Color YELLOW Urine Appearance CLEAR Urine pH 5.0 Urine Specific [place] 1.017 Urine Protein NEG Urine Glucose (UA) NEG Urine Ketones NEG Urine Occult Blood NEG Urine Nitrite NEG Urine Bilirubin NEG Urine Urobilinogen NEG Urine Leukocyte Esterase TRACE Urine WBC (Auto) 1-5 /hpf Urine RBC (Auto) 0-4 /hpf Urine Hyaline Casts (Auto) 1-5 /lpf Urine Epithelial Cells (Auto) 10-20 /lpf Urine Bacteria (Auto) NEG White Blood Count 9.46 K/uL Red Blood Count 3.64 M/uL Hemoglobin 9.2 g/dL Hematocrit 30.0 % Mean Corpuscular Volume 82.4 fL Mean Corpuscular Hemoglobin 25.3 pg Mean Corpuscular Hemoglobin Concent 30.7 g/dl Platelet Count 230 K/uL Mean Platelet Volume 8.9 fL Neutrophils (%) (Auto) 92.4 % Lymphocytes (%) (Auto) 6.6 % Monocytes (%) (Auto) 0.6 % Eosinophils (%) (Auto) 0.1 % Basophils (%) (Auto) 0.1 % Neutrophils # (Auto) 8.74 K/uL Lymphocytes # (Auto) 0.62 K/uL Monocytes # (Auto) 0.06 K/uL Eosinophils # (Auto) 0.01 K/uL Basophils # (Auto) 0.01 K/uL RDW Standard Deviation 47.5 fL RDW Coefficient of Variation 15.7 % Immature Granulocyte % (Auto) 0.2 % Immature Granulocyte # (Auto) 0.02 K/uL Prothrombin Time 10.7 SECONDS Prothromb Time International Ratio 1.0 Bedside Glucose 212 mg/dl Patient Name: FRANK LAN Unit Number: [id number] Dictated: 11/29/162301 Transcribed: 11/29/162301 [facility] Printed Date/Time: [~ rep prt dt]/[~ rep prt tm] [~ rep ct labl] - [~ rep ct ivnm] [facility] Radiology Department [place], [place] [address] Dictated: 11/29/162301 Transcribed: 11/29/162301 [facility] Printed Date/Time: [~ rep prt dt]/[~ rep prt tm] [~ rep ct labl] - [~ rep ct ivnm] [~ rep ct add3]] CHEST ONE VIEW PORTABLE HISTORY: Short of breath. COMPARISON: Chest 10/03/2016. FINDINGS: There are poststernotomy changes. The heart remains stable in size. No pleural effusions. No pneumothorax. 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 Resurfacing of the right humeral head is again noted. Chronic interstitial thickening is seen throughout the lungs. No new focal lung consolidations. A few scattered nodular densities favor mucoid impaction of the bronchiectasis. This is similar to the prior study. A right jugular Port-A-Cath terminates in the SVC. IMPRESSION: 1. No significant change compared to the prior study. 2. Chronic interstitial thickening, bronchiectasis, and mucoid impaction of the dilated bronchi are again noted. Electronically signed by: Troy Collier M.D. 11/29/2016 11:06 PM Dictated Date/Time: 11/29/2016 11:02 PM The status of this report is Signed. Draft = Not yet reviewed or approved by Radiologist. Signed = Reviewed and approved by Radiologist. <AttendingPhy></AttendingPhy> <FamilyPhy>Ivonne SubramanianN.P.</FamilyPhy> < PrimaryPhy>Ivonne SubramanianN.P.</PrimaryPhy> <UnitNumber>[id number]</ UnitNumber> <VisitNumber>[id number]</VisitNumber> <PatientName>FRANK LAN< /PatientName> <DateOfBirth>1960</DateOfBirth> <Location>[facility]</Location> < ServiceDate>11/29/16</ServiceDate> <MNE>ESINDI</MNE> <OrderingPhy>Papito Hamm MD</OrderingPhy> <OrderingPhyMNE>f rep ord dr orjas</OrderingPhyMNE> < DictatingPhyMNE>f rep dict dr rojas</DictatingPhyMNE> <CCListMNE>f rep ct crystal</ CCListMNE> <AdmittingPhyMNE>f pt admit dr rojas</AdmittingPhyMNE> <AttendingPhyMNE >f pt attend dr rojas</AttendingPhyMNE> <ConsultingPhyMNE>f pt consult dr rojas</ConsultingPhyMNE> <FamilyPhyMNE>f pt fam dr rojas</FamilyPhyMNE> <OtherPhyMNE>f pt other dr rojas</OtherPhyMNE> < PrimaryPhyMNE>f pt prim care dr rojas</PrimaryPhyMNE> <ReferringPhyMNE>f pt referring dr rojas</ReferringPhyMNE> Assessment & Plan 56-year-old female with longstanding bronchiectasis, recently treated for stenotrophomonas infection with clinical improvement, now with acute onset of respiratory decompensation, but also rapid improvement overnight. Given negative new chest x-ray findings, as well as relatively rapid clinical improvement as well as acute onset of symptoms, I think that new respiratory tract infection appears unlikely and perhaps this was mechanical in nature. For now, patient will be continued on ceftazidime, but likely would require different therapy for stenotrophomonas given CINDY data. Will follow.
[2016-11-30] MEDS: CEFTAZIDIME IV 1 GM in DEXTROSE 5% ADD-VANTAGE 50ML 50 ML IV SCH ×2 (10:58→17:04)
[2016-11-30] MEDS ORDERED: GUAIFENESIN 600 MG TABCR PO ONE (11:00)
--- NOTE | 2016-11-30 13:23 | Progress Note ---
Subjective Date of Service: Nov 30, 2016. Subjective Pt evaluation today including: conversation w/ patient, physical exam, lab review, review of studies, review of inpatient medication list Saw/examined the patient in room 241 she's doing better than yesterday, +cough + sputum persists breathing improving, but still SOB Problem List Medical Problems: (1) Atrial fibrillation with rapid ventricular response Status: Acute (2) Atypical pneumonia Status: Acute (3) Bronchiectasis Status: Acute (4) Bronchitis Status: Acute (5) Chronic lung disease Status: Acute (6) COPD exacerbation Status: Acute (7) Dyspnea Status: Acute (8) Fever Status: Acute (9) Fever Status: Acute (10) Hypoxia Status: Acute (11) Hypoxia Status: Acute (12) Hypoxia Status: Acute (13) PNA (pneumonia) Status: Acute (14) PNA (pneumonia) Status: Acute (15) Pneumonia Status: Acute (16) Sepsis Status: Acute (17) SOB (shortness of breath) Status: Acute Review of Systems Constitutional: No fever, No chills Respiratory: + cough, + sputum, + wheezing, + shortness of breath, + dyspnea on exertion, + dyspnea at rest, No hemoptysis Cardiac: No chest pain Abdomen: No pain, No nausea, No vomiting, No diarrhea Medications Current Inpatient Medications Medications (Trade) Dose Ordered Sig/Man Route Start Time Stop Time Status Last Admin Dose Admin Sodium Chloride 1,000 ml @ 80 mls/hr [id number] ONCE IV 11/30/16 00:45 11/30/16 13:14 11/30/16 01:52 80 MLS/HR Enoxaparin Sodium (Lovenox Inj) 40 mg QAM SC 11/30/16 09:00 12/30/16 08:59 11/30/16 08:35 40 MG Acetaminophen (Tylenol Tab) 650 mg Q4H PRN PO 11/30/16 00:45 12/30/16 00:44 Insulin Aspart (novoLOG ASPART) SLIDING SCALE If C... ACHS SC 11/30/16 07:00 12/30/16 06:59 11/30/16 12:36 8 UNITS Glucose (Glucose 40% Gel) 15-30 GRAMS 15 GRAMS... UD PRN PO 11/30/16 00:45 12/30/16 00:44 Glucose (Glucose Chew Tab) 4-8 Tablets 4 Tabl... UD PRN PO 11/30/16 00:45 12/30/16 00:44 Dextrose (Dextrose 50% 50ML Syringe) 25-50ML OF 50% DW IV FOR... UD PRN IV 11/30/16 00:45 12/30/16 00:44 Glucagon (Glucagon Inj) 1 mg UD PRN SQ 11/30/16 00:45 12/30/16 00:44 Tramadol HCl (Ultram Tab) 25 mg Q6H PRN PO 11/30/16 00:45 12/30/16 00:44 Aspirin (Ecotrin Tab) 81 mg QAM PO 11/30/16 09:00 12/30/16 08:59 11/30/16 08:31 81 MG Ferrous Sulfate (Feosol Tab) 325 mg DAILY PO 11/30/16 09:00 12/30/16 08:59 11/30/16 08:31 325 MG Fluticasone Propionate (Flonase Nasal [place]) 1 sprays QAM ESPERANZA 11/30/16 09:00 12/30/16 08:59 11/30/16 08:30 1 SPRAYS Folic Acid (Folvite Tab) 1 mg QAM PO 11/30/16 09:00 12/30/16 08:59 11/30/16 08:31 1 MG Metoprolol Tartrate (Lopressor Tab) 50 mg BID PO 11/30/16 09:00 12/30/16 08:59 11/30/16 08:30 50 MG Multivitamins (Multivitamin Tab) 1 tab QAM PO 11/30/16 09:00 12/30/16 08:59 11/30/16 08:31 1 TAB Pantoprazole Sodium (Protonix Tab) 40 mg QAM PO 11/30/16 09:00 12/30/16 08:59 11/30/16 08:31 40 MG Cyanocobalamin (Vitamin B-12 Tab) 1,000 mcg DAILY PO 11/30/16 09:00 12/30/16 08:59 11/30/16 08:30 1,000 MCG Lactobacillus Acidophilus (Floranex Tab) 1 tab DAILY PO 11/30/16 09:00 12/30/16 08:59 11/30/16 08:31 1 TAB Morphine Sulfate (MoRPHine SULFATE INJ) 4 mg Q6H PRN IV 11/30/16 00:45 12/14/16 00:44 Prednisone (PredniSONE TAB) 40 mg DAILY PO 11/30/16 09:00 12/05/16 08:59 11/30/16 08:31 40 MG Miscellaneous Information 1 ea DAILY PRN N/A 11/30/16 09:00 12/30/16 08:59 Insulin Glargine (Lantus Solostar Pen) 10 units HS SC 11/30/16 21:00 12/30/16 20:59 Ipratropium [place] (Atrovent 0.02% 0.5MG/2.5ML Neb) 0.5 mg Q4H PRN INH 11/30/16 01:00 12/30/16 00:59 Levalbuterol (Xopenex 1.25MG/ 0.5ML Neb) 1.25 mg Q4H PRN INH 11/30/16 01:00 12/30/16 00:59 Ceftazidime 1 gm/ Dextrose 50 ml @ 100 mls/hr Q8H IV 11/30/16 10:00 12/07/16 09:59 11/30/16 10:58 100 MLS/HR Ipratropium [place] (Atrovent 0.02% 0.5MG/2.5ML Neb) 0.5 mg Q4R INH 11/30/16 12:00 12/30/16 02:59 Levalbuterol (Xopenex 1.25MG/ 0.5ML Neb) 1.25 mg Q4RWA INH 11/30/16 12:00 12/30/16 02:59 11/30/16 11:05 1.25 MG Guaifenesin (Mucinex Contr Rel Tab) 600 mg Q12 PO 11/30/16 21:00 12/30/16 20:59 Objective Vital Signs Date Time Temp Pulse Resp B/P (MAP) Pulse Ox O2 Delivery O2 Flow Rate FiO2 11/30/16 12:00 Nasal Cannula 4.0 11/30/16 11:55 36.4 79 18 108/63 (78) 96 Nasal Cannula 11/30/16 11:06 83 20 99 Nasal Cannula 4.0 11/30/16 08:10 36.4 94 18 119/80 (93) 91 Nasal Cannula 4.0 11/30/16 08:00 BiPAP 40 11/30/16 07:05 88 23 99 BiPAP/CPAP 40 11/30/16 05:32 75 96 40 11/30/16 04:00 BiPAP 40 11/30/16 03:26 37.0 92 20 113/76 (88) 97 BiPAP 11/30/16 02:11 103 97 40 11/30/16 02:10 103 23 97 BiPAP/CPAP 40 11/30/16 01:00 37.1 111 22 162/76 91 BiPAP 11/30/16 00:36 102 20 119/100 97 BiPAP 11/30/16 00:22 115 24 122/89 97 BiPAP 11/30/16 00:20 115 122/89 11/29/16 23:22 129 97 40 11/29/16 23:21 129 24 94 Nasal Cannula 6.0 11/29/16 23:21 125 24 140/87 96 11/29/16 23:00 BiPAP 11/29/16 22:59 128 11/29/16 22:27 94 6.0 11/29/16 22:14 37.2 127 22 135/88 93 Room Air Physical Exam General Appearance: no apparent distress Respiratory/Chest: + wheezing (significant inspiratory/expiratory wheezing diffusely) Cardiovascular: regular rate, rhythm, no edema, no murmur Extremities: normal inspection, no pedal edema Neurologic/Psychiatric: no motor/sensory deficits, alert, normal mood/affect Laboratory Results Last 24 Hours Test 11/29/16 23:15 11/29/16 23:26 11/30/16 01:40 11/30/16 01:56 White Blood Count 12.55 K/uL Red Blood Count 3.92 M/uL Hemoglobin 10.1 g/dL Hematocrit 32.5 % Mean Corpuscular Volume 82.9 fL Mean Corpuscular Hemoglobin 25.8 pg Mean Corpuscular Hemoglobin Concent 31.1 g/dl Platelet Count 278 K/uL Mean Platelet Volume 8.9 fL Neutrophils (%) (Auto) 74.4 % Lymphocytes (%) (Auto) 16.3 % Monocytes (%) (Auto) 5.2 % Eosinophils (%) (Auto) 3.7 % Basophils (%) (Auto) 0.2 % Neutrophils # (Auto) 9.33 K/uL Lymphocytes # (Auto) 2.04 K/uL Monocytes # (Auto) 0.65 K/uL Eosinophils # (Auto) 0.47 K/uL Basophils # (Auto) 0.03 K/uL RDW Standard Deviation 48.2 fL RDW Coefficient of Variation 15.8 % Immature Granulocyte % (Auto) 0.2 % Immature Granulocyte # (Auto) 0.03 K/uL Activated Partial Thromboplast Time 35.6 SECONDS Partial Thromboplastin Ratio 1.4 Sodium Level 135 mmol/L Potassium Level 4.3 mmol/L Chloride Level 97 mmol/L Carbon Dioxide Level 35 mmol/L Anion Gap 3.0 mmol/L Blood Urea Nitrogen 11 mg/dl Creatinine 0.71 mg/dl Est Creatinine Clear Calc Drug Dose 91.3 ml/min Estimated GFR () 111.1 Estimated GFR (Non- 95.9 BUN/Creatinine Ratio 15.9 Random Glucose 167 mg/dl Calcium Level 9.4 mg/dl Magnesium Level 2.2 mg/dl Total Bilirubin 0.3 mg/dl Aspartate Amino Transf (AST/SGOT) 16 U/L Alanine Aminotransferase (ALT/SGPT) 20 U/L Alkaline Phosphatase 84 U/L Total Creatine Kinase 33 U/L Creatine Kinase MB < 0.5 ng/ml Creatine Kinase MB Ratio Troponin I < 0.015 ng/ml Total Protein 8.4 gm/dl Albumin 2.9 gm/dl Globulin 5.5 gm/dl Albumin/Globulin Ratio 0.5 Arterial Blood pH 7.39 Arterial Blood Partial Pressure CO2 56 mmHg Arterial Blood Partial Pressure O2 90 mm/Hg Arterial Blood HCO3 33 mmol/L Arterial Blood Oxygen Saturation 95.1 % Arterial Blood Base Excess 7.0 mEq/L Arterial Blood Gas Delivery 40% FIO2 Gui Test POS Lactic Acid Level 0.7 mmol/L Bedside Glucose 208 mg/dl Test 11/30/16 04:44 11/30/16 06:00 11/30/16 06:46 11/30/16 07:02 Sodium Level 137 mmol/L Potassium Level 4.7 mmol/L Chloride Level 101 mmol/L Carbon Dioxide Level 34 mmol/L Anion Gap 2.0 mmol/L Blood Urea Nitrogen 11 mg/dl Creatinine 0.65 mg/dl Est Creatinine Clear Calc Drug Dose 97.6 ml/min Estimated GFR () 115.8 Estimated GFR (Non- 99.9 BUN/Creatinine Ratio 16.3 Random Glucose 217 mg/dl Calcium Level 8.9 mg/dl Troponin I < 0.015 ng/ml Urine Color YELLOW Urine Appearance CLEAR Urine pH 5.0 Urine Specific [place] 1.017 Urine Protein NEG Urine Glucose (UA) NEG Urine Ketones NEG Urine Occult Blood NEG Urine Nitrite NEG Urine Bilirubin NEG Urine Urobilinogen NEG Urine Leukocyte Esterase TRACE Urine WBC (Auto) 1-5 /hpf Urine RBC (Auto) 0-4 /hpf Urine Hyaline Casts (Auto) 1-5 /lpf Urine Epithelial Cells (Auto) 10-20 /lpf Urine Bacteria (Auto) NEG White Blood Count 9.46 K/uL Red Blood Count 3.64 M/uL Hemoglobin 9.2 g/dL Hematocrit 30.0 % Mean Corpuscular Volume 82.4 fL Mean Corpuscular Hemoglobin 25.3 pg Mean Corpuscular Hemoglobin Concent 30.7 g/dl Platelet Count 230 K/uL Mean Platelet Volume 8.9 fL Neutrophils (%) (Auto) 92.4 % Lymphocytes (%) (Auto) 6.6 % Monocytes (%) (Auto) 0.6 % Eosinophils (%) (Auto) 0.1 % Basophils (%) (Auto) 0.1 % Neutrophils # (Auto) 8.74 K/uL Lymphocytes # (Auto) 0.62 K/uL Monocytes # (Auto) 0.06 K/uL Eosinophils # (Auto) 0.01 K/uL Basophils # (Auto) 0.01 K/uL RDW Standard Deviation 47.5 fL RDW Coefficient of Variation 15.7 % Immature Granulocyte % (Auto) 0.2 % Immature Granulocyte # (Auto) 0.02 K/uL Prothrombin Time 10.7 SECONDS Prothromb Time International Ratio 1.0 Bedside Glucose 212 mg/dl Test 11/30/16 11:29 Bedside Glucose 280 mg/dl Assessment and Plan This is a 56 year old female with a PMH of idiopathic bronchiectasis, chronic respiratory failure on 2-4L of O2 continuously, chronic steroid use, recurrent sinusitis/bronchitis episodes, steroid-induced diabetes, 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 of bronchiectasis, recurrent; on chronic 2-4L O2 feeling better today prednisone was added, nebulizers pulmonary consult pending currently on Ceftazidime appreciate ID input - for now, keep this abx. 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
--- NOTE | 2016-11-30 15:06 | CONSULTATION REPORT ---
DATE OF CONSULTATION: 11/30/2016 The patient seen in room 241, bed 2. REASON FOR CONSULTATION: Exacerbation of her breathing and increased shortness of breath. HISTORY OF PRESENT ILLNESS: The patient is a 56-year-old female who we followed in the office for several years for chronic respiratory failure and chronic bronchiectasis. She is oxygen dependent and steroid dependent. She has had multiple bronchoscopies on multiple different organisms with most recent organism being Stenotrophomonas maltophilia, susceptible to Bactrim and ceftazidime, resistant to Levaquin. The patient presented to the Emergency Room on 11/29/2016, at which time she was having increased shortness of breath, increased heart rate, headache, feeling fatigued and tired. According to the patient, symptoms started relatively suddenly. She also had noticeable cough with sputum production of a yellow-green mucus. There was no blood in the mucus that she is aware of. In the ER, she rated the chest discomfort as 4/10. She had no fever or chills associated with it that she is aware of. No sweats, no weight increase or decrease that she is aware of. No swelling in her extremities. She had no sinus symptoms or no pressure. She did have a headache that was more over the top of her head. No difficulty with her vision. No neck pain. No abdominal pain. No nausea, vomiting or diarrhea. She has never had any difficulty swallowing. No coughing or choking on foods when she eats or drinks. She states that her bowels are moving well. She has not had any difficulty voiding. In the Emergency Room, she did have a chest x-ray done, which did show some chronic changes and some opacities, which radiology felt consistent with possible mucoid impaction and her known bronchiectasis. When she came into the ER, her oxygen saturation was about 94% on 6 liters. She was placed on BiPAP and her oxygen saturation maintained in the mid 90s on BiPAP. The patient was given an injection of Solu-Medrol 125 mg IV. She was also given 1 dose of ceftazidime. Because of her symptoms on presentation, she also had troponin done. Initial troponin was less than 0.015. CK-MB was less than 0.5. She did have an ABG done in the ER, which showed a pH of 7.39, which is normal and elevated pCO2 of 56 and normal pO2 of 90. A bicarb of 33, which is elevated. This was done on BiPAP with 40% FiO2. She was found to have a slight white blood cell elevation of 12.5. H&H was stable at 10.1 and 32.5. Because of abnormalities, the patient was admitted to [facility], at which point she was placed on ceftazidime, it looks like 1 g every 8 hours. Levalbuterol and ipratropium every 6 hours routinely and prednisone 40 mg daily. The patient also had serial labs. In reviewing the chart, the patient also had a negative fluid balance to this point of about 275 mL. Currently, she is receiving IV fluids. When I spoke with the patient today, she reports similar to what was stated earlier that her symptoms started relatively suddenly. She feels that some of it was from the weather. She states that she did have increased shortness of breath, increased wheezing, increased cough with the yellow-green mucus with no hemoptysis. She states that she has done better this morning. She states that her breathing is easier. She states that her chest is not as tight. She is coughing less. The cough is less productive, but still loose. She is still getting yellow-green mucus up. She is not feeling short of breath and she feels that her heart room has improved. She states that she did use the BiPAP overnight and felt good on it. She does have a Trilogy at home, which she uses and does well with. She states that she did have a little chest discomfort this morning when she was transitioned from BiPAP to oxygen, but her saturations are maintained well on 4 liters in the 95% range. She denies any other concerns or problems this morning, no headache or lightheadedness. No dizziness, no vision changes. No mouth soreness. No difficulty swallowing. No fevers, chills or sweats. She has not had any weight changes. She has no swelling in her extremities. She denies any nausea or vomiting this morning. No diarrhea this morning. No change in her bowels. Her appetite is normal. Of note is that the patient had shoulder surgery on approximately September [address] [place] [address] 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 The patient states that since that time she has not been using her vibration vest at home. She states she was worried about the shoulder discomfort and she states that her home vest does not really fit because it is too small. She states that she is not sure if she is able to start using her vest again or not. I did contact Dr. Reina in [place], who felt that the patient would be able to tolerate having the vest used and has no restrictions in general. In reviewing her chart the patient's last hospitalization was in September of 2016 for exacerbation of her breathing with sputum culture showing Stenotrophomonas. The patient's most recent bronchoscopies were 08/04/2016, again showing Stenotrophomonas maltophilia, susceptible to Bactrim. She was placed on Bactrim and she did follow with infectious disease for this. She then had repeat bronchoscopy on 11/02/2016, which showed diffuse mucus plugging throughout, but worse in the right middle lobe and lingular areas. This bronchoscopy also grew out Stenotrophomonas maltophilia, which was susceptible to Bactrim and ceftazidime, but resistant to Levaquin. The patient was placed on Bactrim again. The patient denies any other difficulties aside from that and as stated earlier, again is feeling noticeably improved this morning. PAST MEDICAL HISTORY: Includes: 1. Chronic respiratory failure. 2. Bronchiectasis. 3. Chronic oxygen dependency, typically at 4 liters currently at home with increase to 6 or 7 liters with activity. She is steroid dependent in the form of hydrocortisone, for which she is on 15 mg daily. 4. Hypogammaglobulinemia. 5. Chronic anemia. 6. Diabetes mellitus. 7. History of Stenotrophomonas. 8. History of MAURICIO. 9. Obstructive sleep apnea, for which she is on a Trilogy. 10. Osteoporosis. 11. Gastroesophageal reflux disease. 12. History of Clostridium difficile. PAST SURGICAL HISTORY: Includes an atrioseptal defect repair, hysterectomy, appendectomy, cholecystectomy, sinus surgery, tonsillectomy, adenoidectomy, multiple bronchoscopies, right humeral head prosthesis placement, and A-port placement. FAMILY HISTORY: Includes cardiac disease and diabetes mellitus. SOCIAL HISTORY: The patient is a lifelong nonsmoker, nondrinker. Currently, she is on disability. ALLERGIES: ALBUTEROL, FROM WHICH SHE GETS INCREASED SHORTNESS OF BREATH AND TACHYCARDIC. HOME MEDICATIONS: Include alendronate 70 mg every Tuesday, aspirin 81 mg daily, calcium carbonate with vitamin D 600 mg b.i.d., vitamin B12 at 1000 mcg p.o. daily, ferrous sulfate 325 mg p.o. daily, Flonase nasal spray 2 sprays each nostril daily, folic acid 1 tab daily, hydrocortisone 15 mg daily, Novolin N 10 units subQ in the a.m., Mag-Ox 400 mg daily, metoprolol dose unknown 1 tablet twice daily, multivitamin 1 tablet daily, Protonix 40 mg daily, and probiotic 1 capsule daily. REVIEW OF SYSTEMS: As above, otherwise unremarkable. PHYSICAL EXAMINATION: GENERAL: The patient is a 56-year-old female sitting in bed, is able to complete sentences without dyspnea or shortness of breath. She is alert and oriented x3. Mood is good. Affect is good. Current weight is 79.4 kilos. VITAL SIGNS: Temp 36.4, pulse 94, respirations 18, blood pressure is 119/80, pulse ox while I was in the room was between 93% and 95% on 4 liters by nasal cannula. HEENT: Normocephalic and atraumatic. Pupils equal, round and reactive to light and accommodation. Extraocular movements are intact. [place] moist gingival and buccal mucosa. No evidence for thrush at this time. NECK: Short, thick, and supple. No mass. No adenopathy. No bruit. CHEST: The patient has some wheezing throughout. She has chronic rhonchorous sounds throughout as well. CARDIOVASCULAR: Regular rate and rhythm. No murmurs, gallops or rubs. ABDOMEN: Bowel sounds are present. Abdomen soft and nontender. No guarding, rigidity or organomegaly. EXTREMITIES: There is no erythema, no edema, and no cyanosis noted. NEUROLOGIC: Cranial nerves II-XII are intact. No focal deficits noted. LABORATORY DATA: Current labs show a white count of 9.46, H&H 9.2 and 30.0, and platelet count 230,000. INR 1.0. Urine is showing trace leukocyte esterase. Microbiology: Blood culture is pending. Sputum pending. Chest x-ray shows diffuse chronic interstitial changes and thickening consistent with the patient's known bronchiectasis. Radiologist interpretation is showing possible evidence for a mucoid impaction noted. IMPRESSION: This is a 56-year-old female with known chronic bronchiectasis with recurrent mucoid impaction, who presented to the Emergency Room with an exacerbation and an acute on chronic hypoxemic respiratory failure. She did have compensated hypercarbia and is stable at this time. With regards to her exacerbation, at this point, she is on ceftazidime. I would recommend that this be continued. Infectious disease has already evaluated her and I did speak with Dr. Bradley Adamson who agrees with continuing the ceftazidime for now. He is questioning if this is truly an infection with the rapidity of how quickly she had symptoms develop as well as how quickly she has shown improvement, was also considering changing her to Solu-Medrol; however, in light of her diabetes and her significant improvement, I will hold off and just continue her on her 40 mg of prednisone right now. I would like to change her nebulizer to q. 4 hours. I would like to start her on mucolytic in the form of Mucinex, which she has taken at home. I am going to start her on her vibration vest again and I did clear this with Dr. Joel Reina, orthopedic surgeon in [place], following her right shoulder surgery. I would also like for her to have a flutter valve. I also contacted our office to have our nursing staff work on getting her a larger vest for her vibration vest at home, so that she can use this at home. I almost described that because of her inability to use her vibration vest at home, this is contributing in some form to her current exacerbation. This was discussed with her and she is agreeable to having it done. At this point, we will continue to follow through hospitalization. Patient and plan reviewed: The chart is been reviewed night agree with the current plan of care. ASHLEE
[2016-11-30] MEDS: GUAIFENESIN 600 MG TABCR PO SCH (21:05)
[2016-11-30] MEDS: INSULIN GLARGINE SOLOSTAR 100 UNITS/ML 3 ML PEN SC SCH (21:07)
[2016-11-30] MEDS: LEVALBUTEROL 1.25MG/0.5ML NEB INH PRN (23:03)
[2016-12-01] VITALS (16 sets, daily range): BP systolic 113–155; BP diastolic 66–88; PULSE 81–112; TEMP 36.5–36.8; O2SAT 92–99
[2016-12-01] MEDS: CEFTAZIDIME IV 1 GM in DEXTROSE 5% ADD-VANTAGE 50ML 50 ML IV SCH ×3 (02:00→17:50)
[2016-12-01] MEDS: IPRATROPIUM BROMIDE NEB SOLN 0.02% 2.5 ML VIAL INH SCH ×6 (03:41→23:19)
[2016-12-01] MEDS: LEVALBUTEROL 1.25MG/0.5ML NEB INH PRN (03:41)
[2016-12-01 05:08] LABS: HEMATOCRIT 29.9 % (37-47); MEAN CELL VOLUME 84.2 fL (80-100); MEAN CORPUSCULAR HEMOGLOBIN 24.8 pg (25-34); MEAN CORPUSCULAR HGB CONC 29.4 g/dl (32-36); MEAN PLATELET VOLUME 8.9 fL (7.4-10.4); PLATELET COUNT 254 K/uL (130-400); RED BLOOD COUNT 3.55 M/uL (4.2-5.4); WHITE BLOOD COUNT 8.88 K/uL (4.8-10.8)
[2016-12-01 05:42] LABS: BUN/CREATININE RATIO 15.6 (10-20); CALCIUM 8.7 mg/dl (8.5-10.1); CREATININE 0.7 mg/dl (0.60-1.20); POTASSIUM 4.2 mmol/L (3.5-5.1)
[2016-12-01] MEDS: LEVALBUTEROL 1.25MG/0.5ML NEB INH SCH ×5 (07:09→23:19)
[2016-12-01] MEDS: INSULIN ASPART 100 UNITS/ML 3 ML PEN SC SCH ×4 (08:31→20:31)
[2016-12-01] MEDS: ENOXAPARIN 40 MG/0.4 ML SYR SC SCH (08:31)
[2016-12-01] MEDS: CYANOCOBALAMIN 500 MCG TAB (VIT B-12) PO SCH (08:32)
[2016-12-01] MEDS: METOPROLOL TARTRATE 50 MG TAB PO SCH ×2 (08:32→20:25)
[2016-12-01] MEDS: LACTOBACILLUS ACIDOPHILUS (FLORANEX) TAB PO SCH (08:32)
[2016-12-01] MEDS: PANTOprazole SOD 40 MG TAB PO SCH (08:32)
[2016-12-01] MEDS: FERROUS SULFATE 325 MG TAB PO SCH (08:32)
[2016-12-01] MEDS: GUAIFENESIN 600 MG TABCR PO SCH ×2 (08:32→20:24)
[2016-12-01] MEDS: MULTIVITAMIN TAB PO SCH (08:32)
[2016-12-01] MEDS: ASPIRIN 81 MG ECTAB PO SCH (08:32)
[2016-12-01] MEDS: FLUTICASONE PROPIONATE NA SPR 16 GM BTL NAE SCH (08:33)
--- NOTE | 2016-12-01 10:19 | Progress Note ---
Subjective Date of Service: Dec 01, 2016. Subjective Pt evaluation today including: conversation w/ patient, physical exam, lab review, review of studies, review of inpatient medication list Saw/examined the patient in room 241 Feeling better today vibration vest added yesterday states that the mucous is still not coming up Problem List Medical Problems: (1) Atrial fibrillation with rapid ventricular response Status: Acute (2) Atypical pneumonia Status: Acute (3) Bronchiectasis Status: Acute (4) Bronchitis Status: Acute (5) Chronic lung disease Status: Acute (6) COPD exacerbation Status: Acute (7) Dyspnea Status: Acute (8) Fever Status: Acute (9) Fever Status: Acute (10) Hypoxia Status: Acute (11) Hypoxia Status: Acute (12) Hypoxia Status: Acute (13) PNA (pneumonia) Status: Acute (14) PNA (pneumonia) Status: Acute (15) Pneumonia Status: Acute (16) Sepsis Status: Acute (17) SOB (shortness of breath) Status: Acute Review of Systems Constitutional: No fever, No chills Respiratory: + cough, + sputum, + wheezing, + shortness of breath, + dyspnea on exertion, + dyspnea at rest, No hemoptysis Cardiac: No chest pain Abdomen: No pain, No nausea, No vomiting, No diarrhea Heme: No abnormal bleeding/bruising Medications Current Inpatient Medications Medications (Trade) Dose Ordered Sig/Man Route Start Time Stop Time Status Last Admin Dose Admin Enoxaparin Sodium (Lovenox Inj) 40 mg QAM SC 11/30/16 09:00 12/30/16 08:59 12/01/16 08:31 40 MG Acetaminophen (Tylenol Tab) 650 mg Q4H PRN PO 11/30/16 00:45 12/30/16 00:44 Insulin Aspart (novoLOG ASPART) SLIDING SCALE If C... ACHS SC 11/30/16 07:00 12/30/16 06:59 12/01/16 08:31 4 UNITS Glucose (Glucose 40% Gel) 15-30 GRAMS 15 GRAMS... UD PRN PO 11/30/16 00:45 12/30/16 00:44 Glucose (Glucose Chew Tab) 4-8 Tablets 4 Tabl... UD PRN PO 11/30/16 00:45 12/30/16 00:44 Dextrose (Dextrose 50% 50ML Syringe) 25-50ML OF 50% DW IV FOR... UD PRN IV 11/30/16 00:45 12/30/16 00:44 Glucagon (Glucagon Inj) 1 mg UD PRN SQ 11/30/16 00:45 12/30/16 00:44 Tramadol HCl (Ultram Tab) 25 mg Q6H PRN PO 11/30/16 00:45 12/30/16 00:44 Aspirin (Ecotrin Tab) 81 mg QAM PO 11/30/16 09:00 12/30/16 08:59 12/01/16 08:32 81 MG Ferrous Sulfate (Feosol Tab) 325 mg DAILY PO 11/30/16 09:00 12/30/16 08:59 12/01/16 08:32 325 MG Fluticasone Propionate (Flonase Nasal [place]) 1 sprays QAM [place] 11/30/16 09:00 12/30/16 08:59 12/01/16 08:33 1 SPRAYS Folic Acid (Folvite Tab) 1 mg QAM PO 11/30/16 09:00 12/30/16 08:59 12/01/16 08:32 1 MG Metoprolol Tartrate (Lopressor Tab) 50 mg BID PO 11/30/16 09:00 12/30/16 08:59 12/01/16 08:32 50 MG Multivitamins (Multivitamin Tab) 1 tab QAM PO 11/30/16 09:00 12/30/16 08:59 12/01/16 08:32 1 TAB Pantoprazole Sodium (Protonix Tab) 40 mg QAM PO 11/30/16 09:00 12/30/16 08:59 12/01/16 08:32 40 MG Cyanocobalamin (Vitamin B-12 Tab) 1,000 mcg DAILY PO 11/30/16 09:00 12/30/16 08:59 12/01/16 08:32 1,000 MCG Lactobacillus Acidophilus (Floranex Tab) 1 tab DAILY PO 11/30/16 09:00 12/30/16 08:59 12/01/16 08:32 1 TAB Morphine Sulfate (MoRPHine SULFATE INJ) 4 mg Q6H PRN IV 11/30/16 00:45 12/14/16 00:44 Prednisone (PredniSONE TAB) 40 mg DAILY PO 11/30/16 09:00 12/05/16 08:59 12/01/16 08:33 40 MG Miscellaneous Information 1 ea DAILY PRN N/A 11/30/16 09:00 12/30/16 08:59 Insulin Glargine (Lantus Solostar Pen) 10 units HS SC 11/30/16 21:00 12/30/16 20:59 11/30/16 21:07 10 UNITS Ipratropium [place] (Atrovent 0.02% 0.5MG/2.5ML Neb) 0.5 mg Q4H PRN INH 11/30/16 01:00 12/30/16 00:59 Levalbuterol (Xopenex 1.25MG/ 0.5ML Neb) 1.25 mg Q4H PRN INH 11/30/16 01:00 12/30/16 00:59 12/01/16 03:41 1.25 MG Ceftazidime 1 gm/ Dextrose 50 ml @ 100 mls/hr Q8H IV 11/30/16 10:00 12/07/16 09:59 12/01/16 08:31 100 MLS/HR Ipratropium [place] (Atrovent 0.02% 0.5MG/2.5ML Neb) 0.5 mg Q4R INH 11/30/16 12:00 12/30/16 02:59 12/01/16 07:08 0.5 MG Levalbuterol (Xopenex 1.25MG/ 0.5ML Neb) 1.25 mg Q4RWA INH 11/30/16 12:00 12/30/16 02:59 12/01/16 07:09 1.25 MG Guaifenesin (Mucinex Contr Rel Tab) 600 mg Q12 PO 11/30/16 21:00 12/30/16 20:59 12/01/16 08:32 600 MG Objective Vital Signs Date Time Temp Pulse Resp B/P (MAP) Pulse Ox O2 Delivery O2 Flow Rate FiO2 12/01/16 08:12 36.5 108 18 122/77 (92) 93 Nasal Cannula 3.0 12/01/16 08:00 Nasal Cannula 4.0 12/01/16 07:09 96 18 99 BiPAP/CPAP 30 12/01/16 05:45 81 93 30 12/01/16 04:00 36.7 83 20 144/80 (101) 95 BiPAP 12/01/16 04:00 CPAP 4.0 12/01/16 03:43 96 96 30 12/01/16 03:41 96 18 96 BiPAP/CPAP 30 12/01/16 00:00 CPAP 4.0 12/01/16 00:00 36.8 92 19 113/66 (82) 96 BiPAP 11/30/16 23:06 88 99 40 11/30/16 23:04 97 24 99 BiPAP/CPAP 40 11/30/16 22:35 82 95 40 11/30/16 20:00 Nasal Cannula 4.0 11/30/16 19:27 101 20 92 Nasal Cannula 4.0 11/30/16 18:45 36.8 100 22 129/70 (89) 91 Nasal Cannula 5.0 11/30/16 16:00 Nasal Cannula 4.0 11/30/16 15:21 37.2 99 20 128/79 (95) 93 Nasal Cannula 5.0 11/30/16 15:03 83 20 99 Nasal Cannula 4.0 11/30/16 12:00 Nasal Cannula 4.0 11/30/16 11:55 36.4 79 18 108/63 (78) 96 Nasal Cannula 11/30/16 11:06 83 20 99 Nasal Cannula 4.0 Physical Exam General Appearance: no apparent distress ENT: hearing grossly normal Respiratory/Chest: + wheezing (inspiratory and expiratory wheezing) Cardiovascular: no edema, no murmur, + tachycardia Neurologic/Psychiatric: no motor/sensory deficits, alert, normal mood/affect Laboratory Results Last 24 Hours Test 11/30/16 11:29 11/30/16 16:03 11/30/16 19:49 12/01/16 04:43 Bedside Glucose 280 mg/dl 171 mg/dl 170 mg/dl White Blood Count 8.88 K/uL Red Blood Count 3.55 M/uL Hemoglobin 8.8 g/dL Hematocrit 29.9 % Mean Corpuscular Volume 84.2 fL Mean Corpuscular Hemoglobin 24.8 pg Mean Corpuscular Hemoglobin Concent 29.4 g/dl RDW Standard Deviation 48.7 fL RDW Coefficient of Variation 15.6 % Platelet Count 254 K/uL Mean Platelet Volume 8.9 fL Sodium Level 138 mmol/L Potassium Level 4.2 mmol/L Chloride Level 102 mmol/L Carbon Dioxide Level 34 mmol/L Anion Gap 2.0 mmol/L Blood Urea Nitrogen 11 mg/dl Creatinine 0.70 mg/dl Est Creatinine Clear Calc Drug Dose 90.6 ml/min Estimated GFR () 113.0 Estimated GFR (Non- 97.5 BUN/Creatinine Ratio 15.6 Random Glucose 115 mg/dl Calcium Level 8.7 mg/dl Test 12/01/16 07:03 Bedside Glucose 112 mg/dl Assessment and Plan This is a 56 year old female with a PMH of idiopathic bronchiectasis, chronic respiratory failure on 2-4L of O2 continuously, chronic steroid use, recurrent sinusitis/bronchitis episodes, steroid-induced diabetes, immunodeficiency and hypogammaglobulinemia with monthly immune globulin injections presents with worsening breathing Acute on Chronic Hypoxemic Respiratory Failure secondary to Bronchiectasis Exacerbation 12/01 appreciate pulm input continue prednisone 40mg for now Ceftazidime cultures pending vibration vest + Mucomyst as per pulm Further input as per pulm 11/30 patient has a hx. of bronchiectasis, recurrent; on chronic 2-4L O2 feeling better today prednisone was added, nebulizers pulmonary consult pending currently on Ceftazidime appreciate ID input - for now, keep this abx. 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
[2016-12-01] MEDS ORDERED: METHYLPREDNISOLONE IV 40 MG in SYRINGE 0 ML IV ONE (10:30)
--- NOTE | 2016-12-01 10:41 | PROGRESS NOTE ---
DATE: 12/01/2016 DATE: 12/01/2016 PROBLEM LIST: Includes chronic bronchiectasis with history of mucoid impaction, acute on chronic respiratory failure, oxygen dependent and steroid dependent, obstructive pulmonary disease, shortness of breath. SUBJECTIVE: The patient reports that her breathing is a little bit better today. She is still coughing up a lot of mucus but she states that it is thin and she is able to get it coughed up. The mucus is more of a machine cage maker yellow color compared to what it was previously. She does still feel some shortness of breath, but it is not quite as bad as it was. She is not really having any chest discomfort at this time. She still is wheezing. She did start using the vibration vest yesterday and feels that that has been helpful. She does state that when she uses the saline in her nebulizer at home she does get quite a bit of mucus up. She asked if this was normal. She denies any other concerns or problems at this time. No abdominal pain, no nausea or vomiting. Her bowels are moving well. No swelling in her extremities. No fever or chills. OBJECTIVE: GENERAL: The patient is a 56-year-old female sitting in bed in no acute distress. She is alert and oriented x3. Mood is good. Affect is good. VITAL SIGNS: Temp 36.5, pulse 108, respiration 18, blood pressure is 122/77, pulse ox 93% on 3 liters via nasal cannula. HEAD, EYES, EARS, NOSE, AND THROAT: Normocephalic, atraumatic. Pupils equal, round and reactive. [place] moist gingival and buccal mucosa. NECK: Short, thick. No mass, adenopathy or bruit. CHEST: She does have some diffuse essentially wheezing throughout. Primary on exhalation. No rales appreciated. CARDIOVASCULAR: Regular rate and rhythm. No murmurs, gallops or rubs. ABDOMEN: Bowel sounds are present. Abdomen soft, nontender. No guarding, rigidity or organomegaly. EXTREMITIES: No erythema or edema. No tenderness. No cyanosis or clubbing. NEUROLOGIC: Cranial nerves II through XII are intact. No focal deficit. LABORATORY DATA: Shows a white count of 8000, H&H of 8.8 and 29.9, platelet count 254,000. BUN 11, creatinine 0.7. Sputum culture pending. No new imaging data. IMPRESSION: This is a 56-year-old female with history of chronic bronchiectasis, recurrent mucoid impaction who came in with exacerbation of breathing, increased shortness of breath. This has improved, although she is not quite to her baseline at this time. She is showing improvement. She just started vibration vest yesterday, which does seem to be helpful. At this time, question really is if we need to do a bronchoscopy on her to clear secretions prior to discharging her. She is showing improvement in her symptoms, but she is not back to normal. She is covered in case she does have recurrence of the Stenotrophomonas maltophilia, which grew out of her last 2 bronchoscopies. At this point will discuss the case further with Dr. Villalta and get his views on it; however for now I would like for the patient to continue on her current medications as they are. I would like to go ahead and give her a 1 time dose of Solu-Medrol 40 mg to see if this helps her with her breathing at all, continue aggressive pulmonary toilet. Will discuss the case further with Dr. Villalta. Patient and chart reviewed and agree with plan. ASHLEE
[2016-12-01] MEDS ORDERED: NURSING VERBAL MED ORDER ONE (18:30)
[2016-12-01] MEDS: INSULIN GLARGINE SOLOSTAR 100 UNITS/ML 3 ML PEN SC SCH (20:30)
[2016-12-02] VITALS (10 sets, daily range): BP systolic 109–144; BP diastolic 72–82; PULSE 75–92; TEMP 36.4–36.5; O2SAT 95–98
[2016-12-02] MEDS: CEFTAZIDIME IV 1 GM in DEXTROSE 5% ADD-VANTAGE 50ML 50 ML IV SCH ×3 (02:23→17:59)
[2016-12-02] MEDS: IPRATROPIUM BROMIDE NEB SOLN 0.02% 2.5 ML VIAL INH SCH ×5 (02:56→19:36)
[2016-12-02] MEDS: LEVALBUTEROL 1.25MG/0.5ML NEB INH SCH ×4 (02:56→19:36)
[2016-12-02] MEDS: INSULIN ASPART 100 UNITS/ML 3 ML PEN SC SCH ×4 (09:14→20:59)
[2016-12-02] MEDS: ENOXAPARIN 40 MG/0.4 ML SYR SC SCH (09:15)
[2016-12-02] MEDS: ASPIRIN 81 MG ECTAB PO SCH (09:15)
[2016-12-02] MEDS: FLUTICASONE PROPIONATE NA SPR 16 GM BTL NAE SCH (09:15)
[2016-12-02] MEDS: FERROUS SULFATE 325 MG TAB PO SCH (09:16)
[2016-12-02] MEDS: LACTOBACILLUS ACIDOPHILUS (FLORANEX) TAB PO SCH (09:16)
[2016-12-02] MEDS: METOPROLOL TARTRATE 50 MG TAB PO SCH ×2 (09:17→20:59)
[2016-12-02] MEDS: PANTOprazole SOD 40 MG TAB PO SCH (09:18)
[2016-12-02] MEDS: MULTIVITAMIN TAB PO SCH (09:18)
[2016-12-02] MEDS: CYANOCOBALAMIN 500 MCG TAB (VIT B-12) PO SCH (09:19)
[2016-12-02] MEDS: GUAIFENESIN 600 MG TABCR PO SCH ×2 (09:19→20:59)
--- NOTE | 2016-12-02 10:23 | PROGRESS NOTE ---
DATE: 12/02/2016 PROBLEM LIST: Includes: 1. Chronic bronchiectasis with history of mucoid impaction. 2. Acute on chronic respiratory failure, oxygen dependent and steroid dependent. 3. Obstructive pulmonary disease. 4. Shortness of breath. SUBJECTIVE: The patient reports that her breathing is about the same, it is just a little better. She still has some cough and congestion. She still is having a lot of productive mucus when she coughs. Mucus is light yellow in color. There was no blood in the mucus. She still does have some shortness of breath with exertion. She still is using her oxygen. Her oxygen is typically at 2-3 liters per minute and that is what she currently is at. She also notices that she has continued to have some wheezing as well. She has been using her vibration vest and feels that that does seem to be somewhat helpful. She denies any chest discomfort at this time. No other concerns or problems. No fever, chills, no sweats. No GI symptoms. No nausea or vomiting. No indigestion or heartburn, difficulty with her bowels, no difficulty with voiding. She has not had any swelling in her extremities. She has been up walking around the room without difficulty. OBJECTIVE: GENERAL: The patient is a 56-year-old female, sitting in bed in no acute distress. She is alert and oriented x3. Mood is good. Affect is good. She has no respiratory distress. She is able to complete sentences without difficulty. VITAL SIGNS: Temp 36.4, pulse 87, respiration 18, blood pressure is 109/72, and pulse ox is 97% on 2 liters. HEENT: Normocephalic, atraumatic. Pupils equal, round and react to light and accommodation. Extraocular movements are intact. Eyes are nonicteric. [place] moist gingival and buccal mucosa. No erythema or edema. NECK: Supple. There is no mass. No adenopathy. No bruits noted. CHEST: The patient has diffuse wheezing throughout. Some wheezes are polyphonic, which is typical for her. She has some coarse breath sounds as well. She has fair air movement at this time. CARDIOVASCULAR: Regular rate and rhythm. No murmurs, gallops or rubs noted on exam. ABDOMEN: Bowel sounds present. Abdomen soft, nontender. No guarding, rigidity or organomegaly. EXTREMITIES: No erythema or edema. No cyanosis or clubbing noted. NEUROLOGIC: Cranial nerves II through XII were intact. No focal deficit noted. LABORATORY DATA: White count is 8000, H and H 8.8 and 29, and platelet count 254,000. Sputum culture Gram stain showing normal pavan in preliminary report. Blood cultures are negative to date. No new imaging studies. IMPRESSION: This is a 56-year-old female with history of chronic bronchiectasis as well as recurrent mucoid impaction. The patient presented to the ER 3 days ago with increased shortness of breath, increased cough and congestion as noted in previous notes it was felt by me in part that the patient 's decompensation of her breathing was secondary to not using her vibration vest for several weeks due to a shoulder procedure. The patient has shown some improvement, but at this time she is still having some indication that she still has some significant mucus present. Case was discussed with Dr. Villalta and it was elected to set her up for bronchoscopic evaluation tomorrow morning. The procedure was reviewed with her including the risks, benefits and alternatives. She is electing to have the procedure done. We will make the patient n.p.o. after midnight and the procedure will be performed tomorrow morning. In regards to the mucoid impaction, we are going to started her on some Dornase to see if this helps. She will be made n.p.o. after midnight. Her Lovenox will be held until after her procedure tomorrow. She is to continue rest of her medications as they are. She is to contact the office if there is any question or problem. She will continue to follow up in the hospital. I do feel that if the patient does well that she can be discharged to home tomorrow. The patient case have been reviewed and the plan is agreed upon. ASHLEE
--- NOTE | 2016-12-02 12:50 | Progress Note ---
Subjective Date of Service: Dec 02, 2016. Subjective Pt evaluation today including: conversation w/ patient, physical exam, lab review, review of studies, conversation w/ marketing operations consultant, review of inpatient medication list Saw/examined the patient in room 414 +cough, shortness of breath persist, improving no sputum production, but congestion is noted Problem List Medical Problems: (1) Atrial fibrillation with rapid ventricular response Status: Acute (2) Atypical pneumonia Status: Acute (3) Bronchiectasis Status: Acute (4) Bronchitis Status: Acute (5) Chronic lung disease Status: Acute (6) COPD exacerbation Status: Acute (7) Dyspnea Status: Acute (8) Fever Status: Acute (9) Fever Status: Acute (10) Hypoxia Status: Acute (11) Hypoxia Status: Acute (12) Hypoxia Status: Acute (13) PNA (pneumonia) Status: Acute (14) PNA (pneumonia) Status: Acute (15) Pneumonia Status: Acute (16) Sepsis Status: Acute (17) SOB (shortness of breath) Status: Acute Review of Systems Constitutional: No fever, No chills Respiratory: + cough, + sputum, No wheezing, No shortness of breath, No dyspnea on exertion, No dyspnea at rest, No hemoptysis Cardiac: No chest pain, No edema, No palpitations Abdomen: No pain, No nausea, No vomiting, No diarrhea Medications Current Inpatient Medications Medications (Trade) Dose Ordered Sig/Man Route Start Time Stop Time Status Last Admin Dose Admin Enoxaparin Sodium (Lovenox Inj) 40 mg QAM SC 11/30/16 09:00 12/30/16 08:59 Future hold 12/02/16 09:15 40 MG Acetaminophen (Tylenol Tab) 650 mg Q4H PRN PO 11/30/16 00:45 12/30/16 00:44 Insulin Aspart (novoLOG ASPART) SLIDING SCALE If C... ACHS SC 11/30/16 07:00 12/30/16 06:59 12/02/16 09:14 2 UNITS Glucose (Glucose 40% Gel) 15-30 GRAMS 15 GRAMS... UD PRN PO 11/30/16 00:45 12/30/16 00:44 Glucose (Glucose Chew Tab) 4-8 Tablets 4 Tabl... UD PRN PO 11/30/16 00:45 12/30/16 00:44 Dextrose (Dextrose 50% 50ML Syringe) 25-50ML OF 50% DW IV FOR... UD PRN IV 11/30/16 00:45 12/30/16 00:44 Glucagon (Glucagon Inj) 1 mg UD PRN SQ 11/30/16 00:45 12/30/16 00:44 Tramadol HCl (Ultram Tab) 25 mg Q6H PRN PO 11/30/16 00:45 12/30/16 00:44 Aspirin (Ecotrin Tab) 81 mg QAM PO 11/30/16 09:00 12/30/16 08:59 12/02/16 09:15 81 MG Ferrous Sulfate (Feosol Tab) 325 mg DAILY PO 11/30/16 09:00 12/30/16 08:59 12/02/16 09:16 325 MG Fluticasone Propionate (Flonase Nasal [place]) 1 sprays QAM ESPERANZA 11/30/16 09:00 12/30/16 08:59 12/02/16 09:15 1 SPRAYS Folic Acid (Folvite Tab) 1 mg QAM PO 11/30/16 09:00 12/30/16 08:59 12/02/16 09:17 1 MG Metoprolol Tartrate (Lopressor Tab) 50 mg BID PO 11/30/16 09:00 12/30/16 08:59 12/02/16 09:17 50 MG Multivitamins (Multivitamin Tab) 1 tab QAM PO 11/30/16 09:00 12/30/16 08:59 12/02/16 09:18 1 TAB Pantoprazole Sodium (Protonix Tab) 40 mg QAM PO 11/30/16 09:00 12/30/16 08:59 12/02/16 09:18 40 MG Cyanocobalamin (Vitamin B-12 Tab) 1,000 mcg DAILY PO 11/30/16 09:00 12/30/16 08:59 12/02/16 09:19 1,000 MCG Lactobacillus Acidophilus (Floranex Tab) 1 tab DAILY PO 11/30/16 09:00 12/30/16 08:59 12/02/16 09:16 1 TAB Morphine Sulfate (MoRPHine SULFATE INJ) 4 mg Q6H PRN IV 11/30/16 00:45 12/14/16 00:44 Prednisone (PredniSONE TAB) 40 mg DAILY PO 11/30/16 09:00 12/05/16 08:59 12/02/16 09:18 40 MG Miscellaneous Information 1 ea DAILY PRN N/A 11/30/16 09:00 12/30/16 08:59 Insulin Glargine (Lantus Solostar Pen) 10 units HS SC 11/30/16 21:00 12/30/16 20:59 12/01/16 20:30 10 UNITS Ipratropium [place] (Atrovent 0.02% 0.5MG/2.5ML Neb) 0.5 mg Q4H PRN INH 11/30/16 01:00 12/30/16 00:59 Levalbuterol (Xopenex 1.25MG/ 0.5ML Neb) 1.25 mg Q4H PRN INH 11/30/16 01:00 12/30/16 00:59 12/01/16 03:41 1.25 MG Ceftazidime 1 gm/ Dextrose 50 ml @ 100 mls/hr Q8H IV 11/30/16 10:00 12/07/16 09:59 12/02/16 10:39 100 MLS/HR Ipratropium [place] (Atrovent 0.02% 0.5MG/2.5ML Neb) 0.5 mg Q4R INH 11/30/16 12:00 12/30/16 02:59 12/02/16 11:19 0.5 MG Levalbuterol (Xopenex 1.25MG/ 0.5ML Neb) 1.25 mg Q4RWA INH 11/30/16 12:00 12/30/16 02:59 12/02/16 07:29 1.25 MG Guaifenesin (Mucinex Contr Rel Tab) 600 mg Q12 PO 11/30/16 21:00 12/30/16 20:59 12/02/16 09:19 600 MG Heparin Sodium (Porcine) (Heparin 10 Unit/ ml 5 ml Flush) 5 ml PRN PRN FLUSH 12/01/16 18:45 12/31/16 18:44 12/02/16 11:55 5 ML Dornase [place] (Pulmozyme Inhalation Soln 2.5ml Amp) 2.5 ml BIDR INH 12/02/16 20:00 01/01/17 19:59 Objective Vital Signs Date Time Temp Pulse Resp B/P (MAP) Pulse Ox O2 Delivery O2 Flow Rate FiO2 12/02/16 11:47 Nasal Cannula 2.0 12/02/16 11:19 83 18 96 Nasal Cannula 2.0 12/02/16 07:34 36.4 87 18 109/72 (84) 97 12/02/16 07:30 85 21 97 BiPAP/CPAP 30 12/02/16 07:30 85 97 30 12/02/16 02:56 75 18 96 BiPAP/CPAP 30 12/02/16 02:56 75 96 30 12/02/16 00:01 36.5 79 20 121/78 (92) 98 BiPAP 12/02/16 00:00 Nasal Cannula 2.0 CPAP 12/01/16 23:20 83 18 98 BiPAP/CPAP 30 12/01/16 23:19 83 98 30 12/01/16 22:15 94 30 12/01/16 20:22 104 155/88 (110) 94 Nasal Cannula 2.0 12/01/16 20:09 112 18 92 Nasal Cannula 4.0 12/01/16 19:45 Nasal Cannula 2.0 12/01/16 15:50 95 18 97 Nasal Cannula 2.0 12/01/16 15:45 Nasal Cannula 4.0 12/01/16 14:00 Nasal Cannula 4.0 Physical Exam General Appearance: no apparent distress Respiratory/Chest: no respiratory distress, no accessory muscle use, + wheezing (inspiratory and expiratory wheezing diffusely) Cardiovascular: regular rate, rhythm, no edema, no murmur Laboratory Results Last 24 Hours Test 12/01/16 16:48 12/01/16 20:16 12/02/16 07:44 12/02/16 11:31 Bedside Glucose 197 mg/dl 220 mg/dl 88 mg/dl 127 mg/dl Assessment and Plan This is a 56 year old female with a PMH of idiopathic bronchiectasis, chronic respiratory failure on 2-4L of O2 continuously, chronic steroid use, recurrent sinusitis/bronchitis episodes, steroid-induced diabetes, immunodeficiency and hypogammaglobulinemia with monthly immune globulin injections presents with worsening breathing Acute on Chronic Hypoxemic Respiratory Failure secondary to Bronchiectasis Exacerbation 12/02 continue prednisone 40mg for now continue Ceftazidime vibration vest, Mucomyst as per pulm plan for bronchoscopy in AM (12/03) 12/01 appreciate pulm input continue prednisone 40mg for now Ceftazidime cultures pending vibration vest + Mucomyst as per pulm Further input as per pulm 11/30 patient has a hx. of bronchiectasis, recurrent; on chronic 2-4L O2 feeling better today prednisone was added, nebulizers pulmonary consult pending currently on Ceftazidime appreciate ID input - for now, keep this abx. 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
[2016-12-02] MEDS: DORNASE ALFA (2500U) 2.5MG/2.5ML INH SCH (19:35)
--- NOTE | 2016-12-02 20:16 | Infectious Disease Progress Nt ---
Progress Note Date of Service Dec 02, 2016. Subjective Pt evaluation today including: conversation w/ patient, physical exam, chart review, lab review, review of studies, conversation w/ entry level sales consultant, review of inpatient medication list Patient feeling somewhat better today. Chest pain decreased, remains afebrile. No increase in shortness of breath or cough. Sputum culture growing gram-negative bacilli. All Other Systems: Reviewed and Negative Medications Current Inpatient Medications Medications (Trade) Dose Ordered Sig/Man Route Start Time Stop Time Status Last Admin Dose Admin Enoxaparin Sodium (Lovenox Inj) 40 mg QAM SC 11/30/16 09:00 12/30/16 08:59 Future hold 12/02/16 09:15 40 MG Acetaminophen (Tylenol Tab) 650 mg Q4H PRN PO 11/30/16 00:45 12/30/16 00:44 Insulin Aspart (novoLOG ASPART) SLIDING SCALE If C... ACHS SC 11/30/16 07:00 12/30/16 06:59 12/02/16 19:08 4 UNITS Glucose (Glucose 40% Gel) 15-30 GRAMS 15 GRAMS... UD PRN PO 11/30/16 00:45 12/30/16 00:44 Glucose (Glucose Chew Tab) 4-8 Tablets 4 Tabl... UD PRN PO 11/30/16 00:45 12/30/16 00:44 Dextrose (Dextrose 50% 50ML Syringe) 25-50ML OF 50% DW IV FOR... UD PRN IV 11/30/16 00:45 12/30/16 00:44 Glucagon (Glucagon Inj) 1 mg UD PRN SQ 11/30/16 00:45 12/30/16 00:44 Tramadol HCl (Ultram Tab) 25 mg Q6H PRN PO 11/30/16 00:45 12/30/16 00:44 Aspirin (Ecotrin Tab) 81 mg QAM PO 11/30/16 09:00 12/30/16 08:59 12/02/16 09:15 81 MG Ferrous Sulfate (Feosol Tab) 325 mg DAILY PO 11/30/16 09:00 12/30/16 08:59 12/02/16 09:16 325 MG Fluticasone Propionate (Flonase Nasal [place]) 1 sprays QAM ESPERANZA 11/30/16 09:00 12/30/16 08:59 12/02/16 09:15 1 SPRAYS Folic Acid (Folvite Tab) 1 mg QAM PO 11/30/16 09:00 12/30/16 08:59 12/02/16 09:17 1 MG Metoprolol Tartrate (Lopressor Tab) 50 mg BID PO 11/30/16 09:00 12/30/16 08:59 12/02/16 09:17 50 MG Multivitamins (Multivitamin Tab) 1 tab QAM PO 11/30/16 09:00 12/30/16 08:59 12/02/16 09:18 1 TAB Pantoprazole Sodium (Protonix Tab) 40 mg QAM PO 11/30/16 09:00 12/30/16 08:59 12/02/16 09:18 40 MG Cyanocobalamin (Vitamin B-12 Tab) 1,000 mcg DAILY PO 11/30/16 09:00 12/30/16 08:59 12/02/16 09:19 1,000 MCG Lactobacillus Acidophilus (Floranex Tab) 1 tab DAILY PO 11/30/16 09:00 12/30/16 08:59 12/02/16 09:16 1 TAB Morphine Sulfate (MoRPHine SULFATE INJ) 4 mg Q6H PRN IV 11/30/16 00:45 12/14/16 00:44 Prednisone (PredniSONE TAB) 40 mg DAILY PO 11/30/16 09:00 12/05/16 08:59 12/02/16 09:18 40 MG Miscellaneous Information 1 ea DAILY PRN N/A 11/30/16 09:00 12/30/16 08:59 Insulin Glargine (Lantus Solostar Pen) 10 units HS SC 11/30/16 21:00 12/30/16 20:59 12/01/16 20:30 10 UNITS Ipratropium [place] (Atrovent 0.02% 0.5MG/2.5ML Neb) 0.5 mg Q4H PRN INH 11/30/16 01:00 12/30/16 00:59 Levalbuterol (Xopenex 1.25MG/ 0.5ML Neb) 1.25 mg Q4H PRN INH 11/30/16 01:00 12/30/16 00:59 12/01/16 03:41 1.25 MG Ceftazidime 1 gm/ Dextrose 50 ml @ 100 mls/hr Q8H IV 11/30/16 10:00 12/07/16 09:59 12/02/16 17:59 100 MLS/HR Ipratropium [place] (Atrovent 0.02% 0.5MG/2.5ML Neb) 0.5 mg Q4R INH 11/30/16 12:00 12/30/16 02:59 12/02/16 19:36 0.5 MG Levalbuterol (Xopenex 1.25MG/ 0.5ML Neb) 1.25 mg Q4RWA INH 11/30/16 12:00 12/30/16 02:59 12/02/16 19:36 1.25 MG Guaifenesin (Mucinex Contr Rel Tab) 600 mg Q12 PO 11/30/16 21:00 12/30/16 20:59 12/02/16 09:19 600 MG Heparin Sodium (Porcine) (Heparin 10 Unit/ ml 5 ml Flush) 5 ml PRN PRN FLUSH 12/01/16 18:45 12/31/16 18:44 12/02/16 19:09 5 ML Dornase [place] (Pulmozyme Inhalation Soln 2.5ml Amp) 2.5 ml BIDR INH 12/02/16 20:00 01/01/17 19:59 Objective Vital Signs Date Time Temp Pulse Resp B/P (MAP) Pulse Ox O2 Delivery O2 Flow Rate FiO2 12/02/16 19:36 81 18 97 Nasal Cannula 2.0 12/02/16 16:19 36.5 90 18 120/77 (91) 95 Room Air 12/02/16 16:00 Nasal Cannula 2.0 12/02/16 15:44 78 18 97 Nasal Cannula 2.0 12/02/16 12:30 Nasal Cannula 2.0 12/02/16 11:47 Nasal Cannula 2.0 12/02/16 11:19 83 18 96 Nasal Cannula 2.0 12/02/16 07:34 36.4 87 18 109/72 (84) 97 12/02/16 07:30 85 21 97 BiPAP/CPAP 30 12/02/16 07:30 85 97 30 12/02/16 02:56 75 18 96 BiPAP/CPAP 30 12/02/16 02:56 75 96 30 12/02/16 00:01 36.5 79 20 121/78 (92) 98 BiPAP 12/02/16 00:00 Nasal Cannula 2.0 CPAP 12/01/16 23:20 83 18 98 BiPAP/CPAP 30 12/01/16 23:19 83 98 30 12/01/16 22:15 94 30 12/01/16 20:22 104 155/88 (110) 94 Nasal Cannula 2.0 Physical Exam General Appearance: WD/WN, no apparent distress Eyes: normal inspection, sclerae normal ENT: normal ENT inspection, pharynx normal Neck: supple, no adenopathy, trachea midline Respiratory/Chest: chest non-tender, no respiratory distress, no accessory muscle use, + rales, + wheezing Cardiovascular: regular rate, rhythm, no gallop, no murmur Abdomen: normal bowel sounds, non tender, soft, no organomegaly Extremities: non-tender, no calf tenderness Neurologic/Psychiatric: alert, oriented x 3 Skin: normal color, warm/dry, no rash Lymphatic: no adenopathy Laboratory Results RUN DATE: 12/02/16 [facility] LAB PAGE 1 RUN TIME: 1601 Specimen Inquiry PATIENT: EDYTAFRANK Campbell LOC: [facility] U # : [id number] AGE/SX: 56/F ROOM: E414 REG : 11/30/[address]: Harshad Manning DO : 1960 BED: 1 DIS : STATUS: ADM IN TLOC: SPEC #: [id number] NAYAN: 11/30/16 STATUS: RES REQ #: [id number] RECD: 11/30/[address]: Devaughn Silverio M.D. SOURCE: SPUTUM ENTR: 11/30/[address] [facility] [address]: Bradley Adamson MD SPDESC: EXP.SPUTUM Cathy Storey PA-C Hepler, Nancy J. C.R.N.P. Haroon, Salman A., DO Waddington, Thomas W., MD ORDERED: SPUT CULT/SMR COMMENTS: Has Specimen Been Obtained/Collected? Y Procedure Result Verified Site GRAM STAIN Final 11/30/16-08 RESULT MANY POLYS FEW EPITHELIAL CELLS MANY GRAM POSITIVE COCCI MANY GRAM NEGATIVE DIPLOCOCCI MODERATE GRAM NEGATIVE BACILLI SPUTUM CULTURE Preliminary 12/02/16-1601 Organism 1 GRAM NEGATIVE BACILLI QUANITY MANY SENS SENSITIVITY TO FOLLOW NORMAL MARCELLE MODERATE NORMAL MARCELLE Last 24 Hours Test 12/01/16 20:16 12/02/16 07:44 12/02/16 11:31 12/02/16 17:12 Bedside Glucose 220 mg/dl 88 mg/dl 127 mg/dl 216 mg/dl Assessment and Plan 56-year-old female with longstanding bronchiectasis, recently treated for stenotrophomonas infection with clinical improvement, now with acute onset of respiratory decompensation, but also rapid improvement overnight. Given negative new chest x-ray findings, as well as relatively rapid clinical improvement as well as acute onset of symptoms, I think that new respiratory tract infection appears unlikely and perhaps this was mechanical in nature. For now, patient will be continued on ceftazidime, but likely would require different therapy for stenotrophomonas given CINDY data. Will follow.
[2016-12-02] MEDS: INSULIN GLARGINE SOLOSTAR 100 UNITS/ML 3 ML PEN SC SCH (21:03)
[2016-12-03] VITALS (25 sets, daily range): BP systolic 114–146; BP diastolic 64–91; PULSE 71–109; TEMP 36.1–36.8; O2SAT 90–99
[2016-12-03] MEDS: CEFTAZIDIME IV 1 GM in DEXTROSE 5% ADD-VANTAGE 50ML 50 ML IV SCH ×3 (02:17→18:21)
[2016-12-03 06:31] LABS: BASO % 0.1 %; BASO ABS # 0.01 K/uL (0-0.2); COMPLETE YES; EOS % 3.4 %; HEMATOCRIT 32.8 % (37-47); IG% 0.3 %; LYMPH % 20.2 %; LYMPH ABS # 1.38 K/uL (1.2-3.4); MEAN CELL VOLUME 84.1 fL (80-100); MEAN CORPUSCULAR HEMOGLOBIN 24.1 pg (25-34); MEAN CORPUSCULAR HGB CONC 28.7 g/dl (32-36); MEAN PLATELET VOLUME 9.1 fL (7.4-10.4); MONO % 9.2 %; NEUT % 66.8 %; PLATELET COUNT 279 K/uL (130-400); WHITE BLOOD COUNT 6.84 K/uL (4.8-10.8)
[2016-12-03 06:53] LABS: BUN/CREATININE RATIO 21.3 (10-20); CALCIUM 8.8 mg/dl (8.5-10.1); CREATININE 0.68 mg/dl (0.60-1.20); POTASSIUM 3.9 mmol/L (3.5-5.1)
[2016-12-03] MEDS: INSULIN ASPART 100 UNITS/ML 3 ML PEN SC SCH ×4 (07:20→20:46)
[2016-12-03] MEDS: IPRATROPIUM BROMIDE NEB SOLN 0.02% 2.5 ML VIAL INH SCH ×7 (07:40→23:16)
[2016-12-03] MEDS: DORNASE ALFA (2500U) 2.5MG/2.5ML INH SCH ×2 (07:41→19:45)
--- NOTE | 2016-12-03 07:50 | Procedure Note ---
Pre-Mod Sedation Assessment General Date of Moderate Sedation: Dec 03, 2016. Vital Signs: Vital Signs Past 12 Hours Date Time Temp Pulse Resp B/P (MAP) Pulse Ox O2 Delivery O2 Flow Rate FiO2 12/03/16 07:35 78 16 96 Nasal Cannula 2.0 12/03/16 00:23 36.6 71 18 133/89 (104) 97 BiPAP 12/03/16 00:00 BiPAP 12/02/16 22:11 81 96 30 12/02/16 20:57 92 144/82 (102) 97 Nasal Cannula 3.0 Review Cardiovascular: regular rate, rhythm, no edema, no gallop, no JVD, no murmur Abdomen: normal bowel sounds, non tender, soft, no organomegaly, no pulsatile mass Lungs: + rhonchi Pre-Sedation Airway Assessment Oral Cavity: Dentures Short Thick Neck: Yes Smoking Status: Never Smoker Mallampati Classification: Class III ASA Classification: Class III Procedure Planning Contraindications-for Mod Sed: None Yes Notes The planned sedation has been discussed with the patient and consent obtained. I have identified the patient, determined the appropriateness of sedation and have assessed the patient immediately prior to the procedure. All medicine(s) and interventions are by my order.
--- NOTE | 2016-12-03 08:42 | Procedure Note ---
Post-Moderate Sedation Plan General Date of Moderate Sedation Dec 03, 2016. Vital Signs: Vital Signs Past 12 Hours Date Time Temp Pulse Resp B/P (MAP) Pulse Ox O2 Delivery O2 Flow Rate FiO2 12/03/16 08:09 89 17 132/91 94 Nasal Cannula 2.0 12/03/16 08:00 36.8 90 20 114/78 (90) 99 Nasal Cannula 2.0 12/03/16 07:35 78 16 96 Nasal Cannula 2.0 12/03/16 00:23 36.6 71 18 133/89 (104) 97 BiPAP 12/03/16 00:00 BiPAP 12/02/16 22:11 81 96 30 12/02/16 20:57 92 144/82 (102) 97 Nasal Cannula 3.0 Review - Discharge Plan Post Moderate Sedation Plan: On clinical assessment, the patient appears to have tolerated the conscious sedation without complications. Patient is recovering as anticipated. Patient had some episodes of PVCs but was hemodynamically stable throughout the whole procedure. Will return to her and patient that at this time.
[2016-12-03] MEDS ORDERED: NURSING VERBAL MED ORDER ONE (08:45)
--- NOTE | 2016-12-03 08:45 | Bronchoscopy Procedure Note ---
Bronchoscopy Procedure Note Procedure: Bronchoscopy, Conscious Sedation, bronchial lavage Consent: Obtained through the patient placed into the chart Pre-procedural diagnosis: Chronic bronchiectasis Post-procedural diagnosis: Chronic bronchiectasis Start time: 820 End time: 835 Total time: 15 minutes Analgesia: 2% liquid lidocaine: Via nebulizer 4% gel lidocaine: Via right naris 2% liquid lidocaine: Via bronchoscopy Sedation: Versed IV: 50mg Fentanyl IV: 3g Procedure: The Olympus video bronchoscope was used for this procedure and passed down through the right naris Right naris/posterior naris/posterior oropharynx: Anatomically within normal limits Glottis: Anatomically within normal limits Vocal cords: Proper abduction and abduction, anatomically within normal limits Subglottis/trachea/Opal: Anatomically within normal limits Right bronchial tree: Right mainstem bronchus: Anatomically within normal limits Right upper lobe: Anatomically within normal limits Bronchus intermedius: Anatomically within normal limits Right middle lobe: Anatomically within normal limits Right lower lobe: Anatomically within normal limits, mild mucous plugs and multiple sub-segments Findings: No significant findings noted Left bronchial tree: Left mainstem bronchus: Anatomically within normal limits Left upper lobe: Anatomically within normal limits Lingula: Anatomically within normal limits Left lower lobe: Anatomically within normal limits Findings: No significant findings noted Bronchial alveolar lavage: Right middle lobe EBL: None Complications: complications but episodes of PVCs/bigeminy Follow-up: In the [facility]
[2016-12-03] MEDS ORDERED: MIDAZOLAM HCL 5 MG/ML 1 ML VIAL IV ONE ×2 (10:00→14:06)
[2016-12-03] MEDS ORDERED: FENTANYL CITRATE INJ 50 MCG/1 ML 2 ML VIAL IV ONE (10:00)
[2016-12-03] MEDS: ASPIRIN 81 MG ECTAB PO SCH (11:17)
[2016-12-03] MEDS: FLUTICASONE PROPIONATE NA SPR 16 GM BTL NAE SCH (11:17)
[2016-12-03] MEDS: CYANOCOBALAMIN 500 MCG TAB (VIT B-12) PO SCH (11:17)
[2016-12-03] MEDS: LACTOBACILLUS ACIDOPHILUS (FLORANEX) TAB PO SCH (11:18)
[2016-12-03] MEDS: METOPROLOL TARTRATE 50 MG TAB PO SCH ×2 (11:18→20:37)
[2016-12-03] MEDS: PANTOprazole SOD 40 MG TAB PO SCH (11:18)
[2016-12-03] MEDS: FERROUS SULFATE 325 MG TAB PO SCH (11:18)
[2016-12-03] MEDS: GUAIFENESIN 600 MG TABCR PO SCH ×2 (11:18→20:37)
[2016-12-03] MEDS: MULTIVITAMIN TAB PO SCH (11:18)
[2016-12-03] MEDS: LEVALBUTEROL 1.25MG/0.5ML NEB INH SCH ×3 (11:32→19:45)
[2016-12-03] MEDS ORDERED: FENTANYL CITRATE 100 MCG 2 ML CARP IV ONE (14:06)
--- NOTE | 2016-12-03 16:14 | Progress Note ---
Subjective Date of Service: Dec 03, 2016. Subjective Pt evaluation today including: conversation w/ patient, physical exam, lab review, review of studies, review of inpatient medication list Saw/examined the patient in room 414 She had a bronchoscopy earlier today Still has congestion/cough/shortness of breath with slight improvement Problem List Medical Problems: (1) Atrial fibrillation with rapid ventricular response Status: Acute (2) Atypical pneumonia Status: Acute (3) Bronchiectasis Status: Acute (4) Bronchitis Status: Acute (5) Chronic lung disease Status: Acute (6) COPD exacerbation Status: Acute (7) Dyspnea Status: Acute (8) Fever Status: Acute (9) Fever Status: Acute (10) Hypoxia Status: Acute (11) Hypoxia Status: Acute (12) Hypoxia Status: Acute (13) PNA (pneumonia) Status: Acute (14) PNA (pneumonia) Status: Acute (15) Pneumonia Status: Acute (16) Sepsis Status: Acute (17) SOB (shortness of breath) Status: Acute Review of Systems Constitutional: No fever, No chills Respiratory: + cough, + sputum, + wheezing, + shortness of breath, + dyspnea on exertion, + dyspnea at rest Cardiac: No chest pain, No edema, No palpitations Medications Current Inpatient Medications Medications (Trade) Dose Ordered Sig/Man Route Start Time Stop Time Status Last Admin Dose Admin Enoxaparin Sodium (Lovenox Inj) 40 mg QAM SC 11/30/16 09:00 12/30/16 08:59 Future hold 12/02/16 09:15 40 MG Acetaminophen (Tylenol Tab) 650 mg Q4H PRN PO 11/30/16 00:45 12/30/16 00:44 Insulin Aspart (novoLOG ASPART) SLIDING SCALE If C... ACHS SC 11/30/16 07:00 12/30/16 06:59 12/03/16 13:19 2 UNITS Glucose (Glucose 40% Gel) 15-30 GRAMS 15 GRAMS... UD PRN PO 11/30/16 00:45 12/30/16 00:44 Glucose (Glucose Chew Tab) 4-8 Tablets 4 Tabl... UD PRN PO 11/30/16 00:45 12/30/16 00:44 Dextrose (Dextrose 50% 50ML Syringe) 25-50ML OF 50% DW IV FOR... UD PRN IV 11/30/16 00:45 12/30/16 00:44 Glucagon (Glucagon Inj) 1 mg UD PRN SQ 11/30/16 00:45 12/30/16 00:44 Tramadol HCl (Ultram Tab) 25 mg Q6H PRN PO 11/30/16 00:45 12/30/16 00:44 Aspirin (Ecotrin Tab) 81 mg QAM PO 11/30/16 09:00 12/30/16 08:59 12/03/16 11:17 81 MG Ferrous Sulfate (Feosol Tab) 325 mg DAILY PO 11/30/16 09:00 12/30/16 08:59 12/03/16 11:18 325 MG Fluticasone Propionate (Flonase Nasal [place]) 1 sprays QAM ESPERAZNA 11/30/16 09:00 12/30/16 08:59 12/03/16 11:17 1 SPRAYS Folic Acid (Folvite Tab) 1 mg QAM PO 11/30/16 09:00 12/30/16 08:59 12/03/16 11:18 1 MG Metoprolol Tartrate (Lopressor Tab) 50 mg BID PO 11/30/16 09:00 12/30/16 08:59 12/03/16 11:18 50 MG Multivitamins (Multivitamin Tab) 1 tab QAM PO 11/30/16 09:00 12/30/16 08:59 12/03/16 11:18 1 TAB Pantoprazole Sodium (Protonix Tab) 40 mg QAM PO 11/30/16 09:00 12/30/16 08:59 12/03/16 11:18 40 MG Cyanocobalamin (Vitamin B-12 Tab) 1,000 mcg DAILY PO 11/30/16 09:00 12/30/16 08:59 12/03/16 11:17 1,000 MCG Lactobacillus Acidophilus (Floranex Tab) 1 tab DAILY PO 11/30/16 09:00 12/30/16 08:59 12/03/16 11:18 1 TAB Morphine Sulfate (MoRPHine SULFATE INJ) 4 mg Q6H PRN IV 11/30/16 00:45 12/14/16 00:44 Prednisone (PredniSONE TAB) 40 mg DAILY PO 11/30/16 09:00 12/05/16 08:59 12/03/16 11:18 40 MG Miscellaneous Information 1 ea DAILY PRN N/A 11/30/16 09:00 12/30/16 08:59 Insulin Glargine (Lantus Solostar Pen) 10 units HS SC 11/30/16 21:00 12/30/16 20:59 12/02/16 21:03 10 UNITS Ipratropium [place] (Atrovent 0.02% 0.5MG/2.5ML Neb) 0.5 mg Q4H PRN INH 11/30/16 01:00 12/30/16 00:59 Levalbuterol (Xopenex 1.25MG/ 0.5ML Neb) 1.25 mg Q4H PRN INH 11/30/16 01:00 12/30/16 00:59 12/01/16 03:41 1.25 MG Ceftazidime 1 gm/ Dextrose 50 ml @ 100 mls/hr Q8H IV 11/30/16 10:00 12/07/16 09:59 12/03/16 10:27 100 MLS/HR Ipratropium [place] (Atrovent 0.02% 0.5MG/2.5ML Neb) 0.5 mg Q4R INH 11/30/16 12:00 12/30/16 02:59 12/03/16 15:12 0.5 MG Levalbuterol (Xopenex 1.25MG/ 0.5ML Neb) 1.25 mg Q4RWA INH 11/30/16 12:00 12/30/16 02:59 12/03/16 15:12 1.25 MG Guaifenesin (Mucinex Contr Rel Tab) 600 mg Q12 PO 11/30/16 21:00 12/30/16 20:59 12/03/16 11:18 600 MG Dornase [place] (Pulmozyme Inhalation Soln 2.5ml Amp) 2.5 ml BIDR INH 12/02/16 20:00 01/01/17 19:59 12/03/16 07:41 2.5 ML Heparin Sodium (Porcine) (Heparin 100 Unit/ml 5ml Flush) 5 ml PRN PRN IV 12/03/16 11:30 01/02/17 11:29 Objective Vital Signs Date Time Temp Pulse Resp B/P (MAP) Pulse Ox O2 Delivery O2 Flow Rate FiO2 12/03/16 15:36 36.5 99 20 126/83 (97) 93 Nasal Cannula 2.0 12/03/16 15:16 86 17 96 Nasal Cannula 2.0 12/03/16 11:59 92 15 90 Nasal Cannula 2.0 12/03/16 10:30 36.5 91 20 132/78 (96) 93 Nasal Cannula 2.0 12/03/16 10:00 36.7 86 20 125/78 (94) 95 Nasal Cannula 3.0 12/03/16 09:35 36.7 91 18 128/79 (95) 98 3.0 12/03/16 09:26 36.5 85 22 124/81 (95) 95 Nasal Cannula 4.0 12/03/16 09:15 36.3 99 18 122/72 94 Nasal Cannula 4.0 12/03/16 09:05 36.3 97 18 120/69 94 Nasal Cannula 4.0 12/03/16 08:55 36.1 97 16 114/68 94 Mask 8.0 12/03/16 08:45 36.3 95 14 124/64 94 Mask 8.0 12/03/16 08:40 103 18 115/83 93 Mask 10.0 12/03/16 08:35 102 18 119/86 94 Mask 10.0 12/03/16 08:30 109 18 146/80 94 Mask 10.0 12/03/16 08:25 105 18 139/82 94 Mask 10.0 12/03/16 08:20 104 18 139/82 94 Nasal Cannula 6.0 12/03/16 08:15 99 18 139/82 94 Nasal Cannula 2.0 12/03/16 08:09 89 17 132/91 94 Nasal Cannula 2.0 12/03/16 08:00 36.8 90 20 114/78 (90) 99 Nasal Cannula 2.0 12/03/16 07:45 Nasal Cannula 2.0 BiPAP 12/03/16 07:35 78 16 96 Nasal Cannula 2.0 12/03/16 00:23 36.6 71 18 133/89 (104) 97 BiPAP 12/03/16 00:00 BiPAP 12/02/16 22:11 81 96 30 12/02/16 20:57 92 144/82 (102) 97 Nasal Cannula 3.0 12/02/16 19:36 81 18 97 Nasal Cannula 2.0 12/02/16 16:19 36.5 90 18 120/77 (91) 95 Room Air Physical Exam General Appearance: no apparent distress Respiratory/Chest: no respiratory distress, no accessory muscle use, + rhonchi , + wheezing Cardiovascular: regular rate, rhythm, no edema, no murmur Laboratory Results Last 24 Hours Test 12/02/16 17:12 12/02/16 20:36 12/03/16 05:14 12/03/16 07:49 Bedside Glucose 216 mg/dl 158 mg/dl 82 mg/dl White Blood Count 6.84 K/uL Red Blood Count 3.90 M/uL Hemoglobin 9.4 g/dL Hematocrit 32.8 % Mean Corpuscular Volume 84.1 fL Mean Corpuscular Hemoglobin 24.1 pg Mean Corpuscular Hemoglobin Concent 28.7 g/dl Platelet Count 279 K/uL Mean Platelet Volume 9.1 fL Neutrophils (%) (Auto) 66.8 % Lymphocytes (%) (Auto) 20.2 % Monocytes (%) (Auto) 9.2 % Eosinophils (%) (Auto) 3.4 % Basophils (%) (Auto) 0.1 % Neutrophils # (Auto) 4.57 K/uL Lymphocytes # (Auto) 1.38 K/uL Monocytes # (Auto) 0.63 K/uL Eosinophils # (Auto) 0.23 K/uL Basophils # (Auto) 0.01 K/uL RDW Standard Deviation 49.2 fL RDW Coefficient of Variation 16.1 % Immature Granulocyte % (Auto) 0.3 % Immature Granulocyte # (Auto) 0.02 K/uL Sodium Level 139 mmol/L Potassium Level 3.9 mmol/L Chloride Level 98 mmol/L Carbon Dioxide Level 39 mmol/L Anion Gap 2.0 mmol/L Blood Urea Nitrogen 15 mg/dl Creatinine 0.68 mg/dl Est Creatinine Clear Calc Drug Dose 93.5 ml/min Estimated GFR () 114.1 Estimated GFR (Non- 98.5 BUN/Creatinine Ratio 21.3 Random Glucose 80 mg/dl Calcium Level 8.8 mg/dl Test 12/03/16 11:15 Bedside Glucose 91 mg/dl Assessment and Plan This is a 56 year old female with a PMH of idiopathic bronchiectasis, chronic respiratory failure on 2-4L of O2 continuously, chronic steroid use, recurrent sinusitis/bronchitis episodes, steroid-induced diabetes, immunodeficiency and hypogammaglobulinemia with monthly immune globulin injections presents with worsening breathing Acute on Chronic Hypoxemic Respiratory Failure secondary to Bronchiectasis Exacerbation 12/03 s/p bronchoscopy sputum culture pending continue vibration vest, Mucomyst Prednisone 40mg continue Ceftazidime for now, switch to oral in AM likely d/c in AM (12/04) 12/02 continue prednisone 40mg for now continue Ceftazidime vibration vest, Mucomyst as per pulm plan for bronchoscopy in AM (12/03) 12/01 appreciate pulm input continue prednisone 40mg for now Ceftazidime cultures pending vibration vest + Mucomyst as per pulm Further input as per pulm 11/30 patient has a hx. of bronchiectasis, recurrent; on chronic 2-4L O2 feeling better today prednisone was added, nebulizers pulmonary consult pending currently on Ceftazidime appreciate ID input - for now, keep this abx. 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
[2016-12-03] MEDS: INSULIN GLARGINE SOLOSTAR 100 UNITS/ML 3 ML PEN SC SCH (20:47)
[2016-12-04 00:21] VITALS: BP 140/87; PULSE 74; TEMP 36.3; O2SAT 96
[2016-12-04] MEDS: CEFTAZIDIME IV 1 GM in DEXTROSE 5% ADD-VANTAGE 50ML 50 ML IV SCH ×2 (02:20→11:26)
[2016-12-04 02:59] VITALS: PULSE 71; O2SAT 95
[2016-12-04] MEDS: IPRATROPIUM BROMIDE NEB SOLN 0.02% 2.5 ML VIAL INH SCH ×2 (02:59→07:34)
[2016-12-04 06:06] LABS: HEMATOCRIT 32.5 % (37-47); MEAN CELL VOLUME 83.3 fL (80-100); MEAN CORPUSCULAR HEMOGLOBIN 24.6 pg (25-34); MEAN CORPUSCULAR HGB CONC 29.5 g/dl (32-36); MEAN PLATELET VOLUME 8.9 fL (7.4-10.4); PLATELET COUNT 253 K/uL (130-400)
[2016-12-04 06:43] LABS: BUN/CREATININE RATIO 24.2 (10-20); CALCIUM 8.8 mg/dl (8.5-10.1); CREATININE 0.67 mg/dl (0.60-1.20); POTASSIUM 4.1 mmol/L (3.5-5.1)
[2016-12-04] MEDS: DORNASE ALFA (2500U) 2.5MG/2.5ML INH SCH (07:34)
[2016-12-04] MEDS: LEVALBUTEROL 1.25MG/0.5ML NEB INH SCH (07:34)
[2016-12-04 07:35] VITALS: PULSE 77; O2SAT 98
[2016-12-04 07:48] VITALS: BP 131/73; PULSE 86; TEMP 36.5; O2SAT 96
[2016-12-04 09:00] VITALS: O2SAT 94
[2016-12-04] MEDS: FLUTICASONE PROPIONATE NA SPR 16 GM BTL NAE SCH (09:24)
[2016-12-04] MEDS: INSULIN ASPART 100 UNITS/ML 3 ML PEN SC SCH ×2 (09:24→12:51)
[2016-12-04] MEDS: ASPIRIN 81 MG ECTAB PO SCH (09:25)
[2016-12-04] MEDS: FERROUS SULFATE 325 MG TAB PO SCH (09:26)
[2016-12-04] MEDS: MULTIVITAMIN TAB PO SCH (09:26)
[2016-12-04] MEDS: LACTOBACILLUS ACIDOPHILUS (FLORANEX) TAB PO SCH (09:26)
[2016-12-04] MEDS: METOPROLOL TARTRATE 50 MG TAB PO SCH (09:27)
[2016-12-04] MEDS: PANTOprazole SOD 40 MG TAB PO SCH (09:28)
[2016-12-04] MEDS: CYANOCOBALAMIN 500 MCG TAB (VIT B-12) PO SCH (09:28)
[2016-12-04] MEDS: ENOXAPARIN 40 MG/0.4 ML SYR SC SCH (09:29)
[2016-12-04] MEDS: GUAIFENESIN 600 MG TABCR PO SCH (09:31)
--- NOTE | 2016-12-04 12:49 | Progress Note ---
Subjective Date of Service: Dec 04, 2016. Subjective Pt evaluation today including: conversation w/ patient, physical exam, lab review, review of studies, review of inpatient medication list Saw/examined the patient in room 414 She's doing well today; breathing is stable and at baseline Problem List Medical Problems: (1) Atrial fibrillation with rapid ventricular response Status: Acute (2) Atypical pneumonia Status: Acute (3) Bronchiectasis Status: Acute (4) Bronchitis Status: Acute (5) Chronic lung disease Status: Acute (6) COPD exacerbation Status: Acute (7) Dyspnea Status: Acute (8) Fever Status: Acute (9) Fever Status: Acute (10) Hypoxia Status: Acute (11) Hypoxia Status: Acute (12) Hypoxia Status: Acute (13) PNA (pneumonia) Status: Acute (14) PNA (pneumonia) Status: Acute (15) Pneumonia Status: Acute (16) Sepsis Status: Acute (17) SOB (shortness of breath) Status: Acute Review of Systems Constitutional: No fever, No chills Respiratory: + cough, + sputum, + wheezing, + shortness of breath Cardiac: No chest pain Medications Current Inpatient Medications Medications (Trade) Dose Ordered Sig/Man Route Start Time Stop Time Status Last Admin Dose Admin Enoxaparin Sodium (Lovenox Inj) 40 mg QAM SC 11/30/16 09:00 12/30/16 08:59 Future hold 12/04/16 09:29 40 MG Acetaminophen (Tylenol Tab) 650 mg Q4H PRN PO 11/30/16 00:45 12/30/16 00:44 Insulin Aspart (novoLOG ASPART) SLIDING SCALE If C... ACHS SC 11/30/16 07:00 12/30/16 06:59 12/04/16 09:24 3 UNITS Glucose (Glucose 40% Gel) 15-30 GRAMS 15 GRAMS... UD PRN PO 11/30/16 00:45 12/30/16 00:44 Glucose (Glucose Chew Tab) 4-8 Tablets 4 Tabl... UD PRN PO 11/30/16 00:45 12/30/16 00:44 Dextrose (Dextrose 50% 50ML Syringe) 25-50ML OF 50% DW IV FOR... UD PRN IV 11/30/16 00:45 12/30/16 00:44 Glucagon (Glucagon Inj) 1 mg UD PRN SQ 8/22/17 00:45 12/30/16 00:44 Tramadol HCl (Ultram Tab) 25 mg Q6H PRN PO 11/30/16 00:45 12/30/16 00:44 Aspirin (Ecotrin Tab) 81 mg QAM PO 11/30/16 09:00 12/30/16 08:59 12/04/16 09:25 81 MG Ferrous Sulfate (Feosol Tab) 325 mg DAILY PO 11/30/16 09:00 12/30/16 08:59 12/04/16 09:26 325 MG Fluticasone Propionate (Flonase Nasal [place]) 1 sprays QAM ESPERANZA 11/30/16 09:00 12/30/16 08:59 12/04/16 09:24 1 SPRAYS Folic Acid (Folvite Tab) 1 mg QAM PO 11/30/16 09:00 12/30/16 08:59 12/04/16 09:27 1 MG Metoprolol Tartrate (Lopressor Tab) 50 mg BID PO 11/30/16 09:00 12/30/16 08:59 12/04/16 09:27 50 MG Multivitamins (Multivitamin Tab) 1 tab QAM PO 11/30/16 09:00 12/30/16 08:59 12/04/16 09:26 1 TAB Pantoprazole Sodium (Protonix Tab) 40 mg QAM PO 11/30/16 09:00 12/30/16 08:59 12/04/16 09:28 40 MG Cyanocobalamin (Vitamin B-12 Tab) 1,000 mcg DAILY PO 11/30/16 09:00 12/30/16 08:59 12/04/16 09:28 1,000 MCG Lactobacillus Acidophilus (Floranex Tab) 1 tab DAILY PO 11/30/16 09:00 12/30/16 08:59 12/04/16 09:26 1 TAB Morphine Sulfate (MoRPHine SULFATE INJ) 4 mg Q6H PRN IV 11/30/16 00:45 12/14/16 00:44 Prednisone (PredniSONE TAB) 40 mg DAILY PO 11/30/16 09:00 12/05/16 08:59 12/04/16 09:28 40 MG Miscellaneous Information 1 ea DAILY PRN N/A 11/30/16 09:00 12/30/16 08:59 Insulin Glargine (Lantus Solostar Pen) 10 units HS SC 11/30/16 21:00 12/30/16 20:59 12/03/16 20:47 10 UNITS Ipratropium [place] (Atrovent 0.02% 0.5MG/2.5ML Neb) 0.5 mg Q4H PRN INH 11/30/16 01:00 12/30/16 00:59 Levalbuterol (Xopenex 1.25MG/ 0.5ML Neb) 1.25 mg Q4H PRN INH 11/30/16 01:00 12/30/16 00:59 12/01/16 03:41 1.25 MG Ceftazidime 1 gm/ Dextrose 50 ml @ 100 mls/hr Q8H IV 11/30/16 10:00 12/07/16 09:59 12/04/16 11:26 100 MLS/HR Ipratropium [place] (Atrovent 0.02% 0.5MG/2.5ML Neb) 0.5 mg Q4R INH 11/30/16 12:00 12/30/16 02:59 12/04/16 07:34 0.5 MG Levalbuterol (Xopenex 1.25MG/ 0.5ML Neb) 1.25 mg Q4RWA INH 11/30/16 12:00 12/30/16 02:59 12/04/16 07:34 1.25 MG Guaifenesin (Mucinex Contr Rel Tab) 600 mg Q12 PO 11/30/16 21:00 12/30/16 20:59 12/04/16 09:31 600 MG Dornase Ray (Pulmozyme Inhalation Soln 2.5ml Amp) 2.5 ml BIDR INH 12/02/16 20:00 01/01/17 19:59 12/04/16 07:34 2.5 ML Heparin Sodium (Porcine) (Heparin 100 Unit/ml 5ml Flush) 5 ml PRN PRN IV 12/03/16 11:30 01/02/17 11:29 12/04/16 05:52 5 ML Objective Vital Signs Date Time Temp Pulse Resp B/P (MAP) Pulse Ox O2 Delivery O2 Flow Rate FiO2 12/04/16 09:00 94 Nasal Cannula 2.0 BiPAP 12/04/16 07:48 36.5 86 20 131/73 (92) 96 Nasal Cannula 3.0 BiPAP 12/04/16 07:35 77 15 98 BiPAP/CPAP 30 12/04/16 02:59 71 17 95 BiPAP/CPAP 30 12/04/16 00:21 36.3 74 18 140/87 (104) 96 12/04/16 00:05 Nasal Cannula 2.0 12/03/16 23:17 92 30 12/03/16 23:16 79 17 92 Nasal Cannula 2.0 12/03/16 20:36 102 120/77 (91) 93 Nasal Cannula 2.0 12/03/16 19:46 71 17 94 Nasal Cannula 5.0 12/03/16 16:00 Nasal Cannula 2.0 12/03/16 15:36 36.5 99 20 126/83 (97) 93 Nasal Cannula 2.0 12/03/16 15:16 86 17 96 Nasal Cannula 2.0 Physical Exam General Appearance: no apparent distress Respiratory/Chest: no respiratory distress, no accessory muscle use, + rhonchi , + wheezing Cardiovascular: regular rate, rhythm, no edema, no murmur Extremities: normal inspection, no pedal edema Laboratory Results Last 24 Hours Test 12/03/16 16:34 12/03/16 20:32 12/04/16 05:50 12/04/16 07:54 Bedside Glucose 274 mg/dl 81 mg/dl White Blood Count 6.90 K/uL Red Blood Count 3.90 M/uL Hemoglobin 9.6 g/dL Hematocrit 32.5 % Mean Corpuscular Volume 83.3 fL Mean Corpuscular Hemoglobin 24.6 pg Mean Corpuscular Hemoglobin Concent 29.5 g/dl RDW Standard Deviation 48.1 fL RDW Coefficient of Variation 16.0 % Platelet Count 253 K/uL Mean Platelet Volume 8.9 fL Sodium Level 138 mmol/L Potassium Level 4.1 mmol/L Chloride Level 98 mmol/L Carbon Dioxide Level 38 mmol/L Anion Gap 2.0 mmol/L Blood Urea Nitrogen 16 mg/dl Creatinine 0.67 mg/dl Est Creatinine Clear Calc Drug Dose 94.9 ml/min Estimated GFR () 114.7 Estimated GFR (Non- 99.0 BUN/Creatinine Ratio 24.2 Random Glucose 85 mg/dl Calcium Level 8.8 mg/dl Test 12/04/16 11:32 Bedside Glucose 136 mg/dl Assessment and Plan This is a 56 year old female with a PMH of idiopathic bronchiectasis, chronic respiratory failure on 2-4L of O2 continuously, chronic steroid use, recurrent sinusitis/bronchitis episodes, steroid-induced diabetes, immunodeficiency and hypogammaglobulinemia with monthly immune globulin injections presents with worsening breathing Acute on Chronic Hypoxemic Respiratory Failure secondary to Bronchiectasis Exacerbation 12/04 plan to d/c home Prednisone 40mg with a taper decrease by 10mg q3 days until back to hydrocortisone 15mg no need to treat the stenotrophomonas as per pulm 12/03 s/p bronchoscopy sputum culture pending continue vibration vest, Mucomyst Prednisone 40mg continue Ceftazidime for now, switch to oral in AM likely d/c in AM (12/04) 12/02 continue prednisone 40mg for now continue Ceftazidime vibration vest, Mucomyst as per pulm plan for bronchoscopy in AM (12/03) 12/01 appreciate pulm input continue prednisone 40mg for now Ceftazidime cultures pending vibration vest + Mucomyst as per pulm Further input as per pulm 11/30 patient has a hx. of bronchiectasis, recurrent; on chronic 2-4L O2 feeling better today prednisone was added, nebulizers pulmonary consult pending currently on Ceftazidime appreciate ID input - for now, keep this abx. 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
[2016-12-04] MEDS ORDERED: PRED10TA PO (12:50)
--- NOTE | 2016-12-04 12:53 | Discharge Instructions ---
Discharge Instructions Date of Service Dec 04, 2016. Admission Reason for Admission: Resipratory Failure, Acute On Chronic Discharge Discharge Diagnosis / Problem: Acute on Chronic respiratory failure, bronchiectasis, mucous impaction Discharge Goals Goal(s): Decrease discomfort, Improve function, Diagnostic testing, Therapeutic intervention Activity Recommendations Activity Limitations: resume your previous activity . Instructions / Follow-Up Instructions / Follow-Up Please follow-up with Ivonne Subramanian on December 09 at 3:15PM * You will be discharged on a prednisone taper, take 40mg for three days, then 30mg for three days, then 20mg for three days, then 10mg for three days, and then go back to your hydrocortisone 15mg daily Current Hospital Diet Patient's current hospital diet: AHA Diet (Heart Healthy), Diabetes Type 2 Diet Discharge Diet Recommended Diet: AHA Diet (Heart Healthy), Diabetes Type 2 Diet Pending Studies Studies pending at discharge: no Laboratory Results Hemoglobin A1c Test 10/02/16 06:34 Range/Units Estimated Average Glucose 134 mg/dl Hemoglobin A1c 6.3 H 4.5-5.6 % Medical Emergencies . Who to Call and When: Medical Emergencies: If at any time you feel your situation is an emergency, please call 911 immediately. . Non-Emergent Contact Non-Emergency issues call your: Primary Care Provider . . "Provider Documentation" section prepared by Harshad Manning. . VTE Core Measure Inpt VTE Proph given/why not?: Enoxaparin (Lovenox)SQ
--- NOTE | 2016-12-04 12:55 | Discharge Summary ---
Discharge Summary Date of Service Dec 04, 2016. Discharge Summary Admission Date: Nov 30, 2016 at 00:20 Discharge Date: Dec 04, 2016 Discharge Disposition: Home Principal Diagnosis: Acute on Chronic Respiratory Failure Bronchiectasis Mucous Impaction Medication Reconciliation New Medications: Prednisone Tab (Prednisone) 10 Mg Tab 10 MG PO UD for 12 Days, #30 TAB Continued Medications: Albuterol Sulf (Albuterol Sulfate) 2.5 Mg/3 Ml Nebu 3 ML NEB Q4H PRN for sob/wheezing for 10 Days USE SALT SOLUTION IN NEBULIZER Alendronate Sodium (Alendronate Sodium) 70 Mg Tab 70 MG PO TUESDAYS, #4 Aspirin (Aspirin Chewable) 81 Mg Chew 81 MG PO QAM, TAB Calcium Carbonate-Vitamin D W/ (Caltrate 600 Plus) 1 Tab Tab 1 TAB PO BID, TAB Cyanocobalamin (Vitamin B12) 1,000 Mcg Tab 1000 MCG PO DAILY Dextromethorphan-Guaifenesin (Mucinex Dm Maximum Streng) 1 Tab Tab 1 TAB PO BID PRN for Nasal Congestion Ferrous Sulfate (Ferrous Sulfate) 325 Mg Tab 325 MG PO DAILY Fluticasone Propionate (Nasal) (Flonase Allergy Relief) 50 Mcg/Act Spr 2 SPRY ESPERANZA QAM Folic Acid (Folic Acid) 1 Mg Tab 1 TAB PO QAM Home O2 Therapy (Oxygen) Gas 4 LITERS NA DAILY Hydrocortisone (Cortef) 5 Mg Tab 15 MG PO QAM, #240 Insulin Human NPH (Novolin N) 100 Units/Ml Susp 10 UNITS SQ QAM, #10 Magnesium Oxide (Mg Supplement (Magnesium) 400 Mg Cap 400 MG PO DAILY Metoprolol Tartrate (Lopressor) (Lopressor) 50 Mg Tab 1 TAB PO BID for 30 Days, #60 TAB 5 Refills Multiple Vitamin (Multivitamin) 1 Tab Tab 1 TAB PO QAM, TAB Pantoprazole (Protonix) 40 Mg Tab 40 MG PO QAM, TAB [probiotic] () 1 CAP PO DAILY Admission Information HPI (per Admitting provider): DATE OF ADMISSION: 11/30/2016 PRIMARY CARE DOCTOR: Saran Patel [place]. HISTORY OF PRESENT ILLNESS: History obtained from patient and records. Medical history significant for chronic respiratory failure secondary to idiopathic bronchiectasis on home O2 (steroid-dependent disease), hx hypogammaglobulinemia as per records, chronic anemia (baseline hemoglobin 10), steroid-induced diabetes, hx Stenotrophomonas sputum cultures status post Bactrim course. Recent confinement last 09/2016 for acute on chronic respiratory failure, bronchiectasis, exacerbation of lung disease. Sputum cultures grew Stenotrophomonas maltophilia. Px discharged on Augmentin. Patient underwent bronchoscopy last month by [facility] [place] Pulmonology. Copious secretions noted in the lingula as well as right middle lobe. Moderate secretions in the patient's left upper lobe as well as right lower lobe which were flushed and cleared. Sputum cultures, Stenotrophomonas maltophilia, sensitive to Bactrim, ceftazidime; resistant to levofloxacin. Patient was prescribed Bactrim course. Cough sx improved since that bronchoscopy. Px had followup with [facility] [place] [facility] ID 2 weeks ago. Patient started on another course of Bactrim which the patient completed last week. Yesterday, the patient noted increased cough, shortness of breath symptoms, cough productive of yellow green sputum. Substernal tightness from coughing. No unusual weight gain. In the Emergency Room, the patient received Solu-Medrol, breathing treatment for recurrent bronchitis. BiPAP initiated. MEDICAL HISTORY: As above. SURGERIES: Atrioseptal defect repair, hysterectomy, appendectomy, cholecystectomy, sinus surgery, tonsillectomy, adenoidectomy. HOME MEDICATIONS: Include aspirin, alendronate, Caltrate, vitamin B12, Mucinex, ferrous sulfate, fluticasone, folic acid, oxygen, hydrocortisone, Novolin, magnesium, multivitamins, Lopressor, Protonix, probiotic, albuterol. FAMILY HISTORY: Heart disease, diabetes. PERSONAL AND SOCIAL HISTORY: Nonsmoker. No chronic intake of alcoholic beverages. On disability. REVIEW OF SYSTEMS: As per HPI, all other ROS negative. PHYSICAL EXAMINATION: VITAL SIGNS: Blood pressure was noted to be 135/88, pulse rate 127, RR 24, temperature 37.2, sats 93 on room air, later 97 on 40% BiPAP. GENERAL: Noted to be in minimal respiratory distress. SKIN: Pallor. HEENT: Pale palpebral conjunctivae. Dry mucosa. NECK: No JVD. Supple. CHEST: Occasional wheeze, bibasilar rhonchi. ABDOMEN: Soft. EXTREMITIES: No edema, no tenderness. NEUROLOGIC: No gross focality. LABORATORY DATA: Hemoglobin 10.1, hematocrit 32.5, white cell count 12.65, platelets 278. Sodium 135, potassium 4.3, chloride 97, CO2 of 25, BUN 11, creatinine 0.7, glucose 177. Hemoglobin A1c from 09/2016 was 6.3. ABG: pH 7.39, pCO2 of 57, pO2 of 90 and 95% on 40% FiO2. Chest x-ray, no significant change, chronic, significant bronchiectasis, mucoid impaction, dilated bronchi. ASSESSMENT: 1. Acute on chronic hypoxemic respiratory failure secondary to bronchiectasis flare Steroid-dependent disease. possible sepsis. History of Stenotrophomonas growth (Bactrim, Ceftazidime sensitive) on recent sputum CS status post outpatient Bactrim course 2. Compensated respiratory acidosis secondary to above. 3, Hypertension, stable. 4. CAD as per Steroid-induced diabetes. Well controlled as of recent HgA1c 5. Chronic anemia, hemoglobin at baseline. PLAN: PCU. Continue BiPAP. Cultures, check lactic acid nebs, steroids Ceftazidime for now. Pulmonary consult, acute on chronic respiratory failure, bronchiectasis flare ID consult, recurrent bronchiectasis, hx Stenotrophomonas on sputum CS Basal insulin, ISS BG goal 140-180. DVT prophylaxis with Lovenox subcu. Full code. Hospital Course This is a 56 year old female with a PMH of idiopathic bronchiectasis, chronic respiratory failure on 2-4L of O2 continuously, chronic steroid use, recurrent sinusitis/bronchitis episodes, steroid-induced diabetes, immunodeficiency and hypogammaglobulinemia with monthly immune globulin injections presents with worsening breathing Acute on Chronic Hypoxemic Respiratory Failure secondary to Bronchiectasis Exacerbation 12/04 plan to d/c home Prednisone 40mg with a taper decrease by 10mg q3 days until back to hydrocortisone 15mg no need to treat the stenotrophomonas as per pulm 12/03 s/p bronchoscopy sputum culture pending continue vibration vest, Mucomyst Prednisone 40mg continue Ceftazidime for now, switch to oral in AM likely d/c in AM (12/04) 12/02 continue prednisone 40mg for now continue Ceftazidime vibration vest, Mucomyst as per pulm plan for bronchoscopy in AM (12/03) 12/01 appreciate pulm input continue prednisone 40mg for now Ceftazidime cultures pending vibration vest + Mucomyst as per pulm Further input as per pulm 11/30 patient has a hx. of bronchiectasis, recurrent; on chronic 2-4L O2 feeling better today prednisone was added, nebulizers pulmonary consult pending currently on Ceftazidime appreciate ID input - for now, keep this abx. and monitor culture/sensitivities of sputum Steroid-Induced DM2 Ha1c = 6.3% tightened the sliding scale insulin Lantus 10 units qhs DVT ppx Lovenox FULL CODE Total time spent on discharge = 35 minutes This includes examination of the patient, discharge planning, medication reconciliation, and communication with other providers. Discharge Instructions Please follow-up with Ivonne Subramanian on December 09 at 3:15PM * You will be discharged on a prednisone taper, take 40mg for three days, then 30mg for three days, then 20mg for three days, then 10mg for three days, and then go back to your hydrocortisone 15mg daily
--- NOTE | 2016-12-04 13:01 | Pulmonology Progress Note ---
Pulmonary Progress Note Date of Service Dec 04, 2016. Attending Dr. Villalta Subjective The patient notes dramatic improvement in her respiratory status Objective Patient is able sit up in bed showing no signs of increased work of breathing or respiratory insufficiency. She still notes some mild but greatly decrease sputum production Vital signs: Stable on 2 L nasal cannula with total of -3.5 L Respiratory: Continuous rhonchi but no change from patient's baseline Cardiac: S1 and S2 distant heart sounds were regular rate and rhythm Extremities: Minimal edema at the bases Respiratory Microbiology Bronchial lavage 05/02/2015 Trisha albicans Bronchial lavage 05/16/2015 Stenotrophomonas maltophilia Expectorated sputum 02/24/20 Stenotrophomonas maltophilia Expectorated sputum 02/24/2016 Stenotrophomonas maltophilia Bronchial washing for 28/09/2016 Stenotrophomonas maltophilia Bronchial washing 720 08/2016 Stenotrophomonas maltophilia Expectorated sputum 11/30/2016 Stenotrophomonas maltophilia (Bactrim sensitive) Assessment & Plan 56-year-old female with complex respiratory history status post bronchoscopy doing well: #1 pulmonary: At this time the patient is doing well she responded well to treatment as well as bronchoscopy and I suggest we discharge her home on her previous medications. She did grow out Stenotrophomonas maltophilia but she is most likely colonized as she is not showing any signs of notable flare I suggest we not initiate antibiotic treatment at this time. Follow-up: Patient in follow-up after discharge in the [facility] pulmonary clinic Data Medications: Current Inpatient Medications Medications (Trade) Dose Ordered Sig/Man Route Start Time Stop Time Status Last Admin Dose Admin Enoxaparin Sodium (Lovenox Inj) 40 mg QAM SC 11/30/16 09:00 12/30/16 08:59 Future hold 12/04/16 09:29 40 MG Acetaminophen (Tylenol Tab) 650 mg Q4H PRN PO 11/30/16 00:45 12/30/16 00:44 Insulin Aspart (novoLOG ASPART) SLIDING SCALE If C... ACHS SC 11/30/16 07:00 12/30/16 06:59 12/04/16 12:51 3 UNITS Glucose (Glucose 40% Gel) 15-30 GRAMS 15 GRAMS... UD PRN PO 11/30/16 00:45 12/30/16 00:44 Glucose (Glucose Chew Tab) 4-8 Tablets 4 Tabl... UD PRN PO 11/30/16 00:45 12/30/16 00:44 Dextrose (Dextrose 50% 50ML Syringe) 25-50ML OF 50% DW IV FOR... UD PRN IV 11/30/16 00:45 12/30/16 00:44 Glucagon (Glucagon Inj) 1 mg UD PRN SQ 11/30/16 00:45 12/30/16 00:44 Tramadol HCl (Ultram Tab) 25 mg Q6H PRN PO 11/30/16 00:45 12/30/16 00:44 Aspirin (Ecotrin Tab) 81 mg QAM PO 11/30/16 09:00 12/30/16 08:59 12/04/16 09:25 81 MG Ferrous Sulfate (Feosol Tab) 325 mg DAILY PO 11/30/16 09:00 12/30/16 08:59 12/04/16 09:26 325 MG Fluticasone Propionate (Flonase Nasal [place]) 1 sprays QAM ESPERANZA 11/30/16 09:00 12/30/16 08:59 12/04/16 09:24 1 SPRAYS Folic Acid (Folvite Tab) 1 mg QAM PO 11/30/16 09:00 12/30/16 08:59 12/04/16 09:27 1 MG Metoprolol Tartrate (Lopressor Tab) 50 mg BID PO 11/30/16 09:00 12/30/16 08:59 12/04/16 09:27 50 MG Multivitamins (Multivitamin Tab) 1 tab QAM PO 11/30/16 09:00 12/30/16 08:59 12/04/16 09:26 1 TAB Pantoprazole Sodium (Protonix Tab) 40 mg QAM PO 11/30/16 09:00 12/30/16 08:59 12/04/16 09:28 40 MG Cyanocobalamin (Vitamin B-12 Tab) 1,000 mcg DAILY PO 11/30/16 09:00 12/30/16 08:59 12/04/16 09:28 1,000 MCG Lactobacillus Acidophilus (Floranex Tab) 1 tab DAILY PO 11/30/16 09:00 12/30/16 08:59 12/04/16 09:26 1 TAB Morphine Sulfate (MoRPHine SULFATE INJ) 4 mg Q6H PRN IV 11/30/16 00:45 12/14/16 00:44 Prednisone (PredniSONE TAB) 40 mg DAILY PO 11/30/16 09:00 12/05/16 08:59 12/04/16 09:28 40 MG Miscellaneous Information 1 ea DAILY PRN N/A 11/30/16 09:00 12/30/16 08:59 Insulin Glargine (Lantus Solostar Pen) 10 units HS SC 11/30/16 21:00 12/30/16 20:59 12/03/16 20:47 10 UNITS Ipratropium [place] (Atrovent 0.02% 0.5MG/2.5ML Neb) 0.5 mg Q4H PRN INH 11/30/16 01:00 12/30/16 00:59 Levalbuterol (Xopenex 1.25MG/ 0.5ML Neb) 1.25 mg Q4H PRN INH 11/30/16 01:00 12/30/16 00:59 12/01/16 03:41 1.25 MG Ceftazidime 1 gm/ Dextrose 50 ml @ 100 mls/hr Q8H IV 11/30/16 10:00 12/07/16 09:59 12/04/16 11:26 100 MLS/HR Ipratropium [place] (Atrovent 0.02% 0.5MG/2.5ML Neb) 0.5 mg Q4R INH 11/30/16 12:00 12/30/16 02:59 12/04/16 07:34 0.5 MG Levalbuterol (Xopenex 1.25MG/ 0.5ML Neb) 1.25 mg Q4RWA INH 11/30/16 12:00 12/30/16 02:59 12/04/16 07:34 1.25 MG Guaifenesin (Mucinex Contr Rel Tab) 600 mg Q12 PO 11/30/16 21:00 12/30/16 20:59 12/04/16 09:31 600 MG Dornase [place] (Pulmozyme Inhalation Soln 2.5ml Amp) 2.5 ml BIDR INH 12/02/16 20:00 01/01/17 19:59 12/04/16 07:34 2.5 ML Heparin Sodium (Porcine) (Heparin 100 Unit/ml 5ml Flush) 5 ml PRN PRN IV 12/03/16 11:30 01/02/17 11:29 12/04/16 12:44 5 ML Vital Signs: Date Time Temp Pulse Resp B/P (MAP) Pulse Ox O2 Delivery O2 Flow Rate FiO2 12/04/16 09:00 94 Nasal Cannula 2.0 BiPAP 12/04/16 07:48 36.5 86 20 131/73 (92) 96 Nasal Cannula 3.0 BiPAP 12/04/16 07:35 77 15 98 BiPAP/CPAP 30 12/04/16 02:59 71 17 95 BiPAP/CPAP 30 12/04/16 00:21 36.3 74 18 140/87 (104) 96 12/04/16 00:05 Nasal Cannula 2.0 12/03/16 23:17 92 30 12/03/16 23:16 79 17 92 Nasal Cannula 2.0 12/03/16 20:36 102 120/77 (91) 93 Nasal Cannula 2.0 12/03/16 19:46 71 17 94 Nasal Cannula 5.0 12/03/16 16:00 Nasal Cannula 2.0 12/03/16 15:36 36.5 99 20 126/83 (97) 93 Nasal Cannula 2.0 12/03/16 15:16 86 17 96 Nasal Cannula 2.0 Laboratory Results: Last 24 Hours Test 12/03/16 16:34 12/03/16 20:32 12/04/16 05:50 12/04/16 07:54 Bedside Glucose 274 mg/dl 81 mg/dl White Blood Count 6.90 K/uL Red Blood Count 3.90 M/uL Hemoglobin 9.6 g/dL Hematocrit 32.5 % Mean Corpuscular Volume 83.3 fL Mean Corpuscular Hemoglobin 24.6 pg Mean Corpuscular Hemoglobin Concent 29.5 g/dl RDW Standard Deviation 48.1 fL RDW Coefficient of Variation 16.0 % Platelet Count 253 K/uL Mean Platelet Volume 8.9 fL Sodium Level 138 mmol/L Potassium Level 4.1 mmol/L Chloride Level 98 mmol/L Carbon Dioxide Level 38 mmol/L Anion Gap 2.0 mmol/L Blood Urea Nitrogen 16 mg/dl Creatinine 0.67 mg/dl Est Creatinine Clear Calc Drug Dose 94.9 ml/min Estimated GFR () 114.7 Estimated GFR (Non- 99.0 BUN/Creatinine Ratio 24.2 Random Glucose 85 mg/dl Calcium Level 8.8 mg/dl Test 12/04/16 11:32 Bedside Glucose 136 mg/dl
[2016-12-04 13:34] VITALS: BP 131/73; PULSE 86; TEMP 36.5; O2SAT 94
[2017-01-20] MEDS ORDERED: SULF-183 PO (14:26)
[2017-01-20] MEDS ORDERED: PRED10TA PO (14:26)
== END 2016-12-04 14:07 | disposition home or self-care (01) | DRG 189 ==
LOC: C.EDB 22:07 → C.2T 11-30 00:20 → ENRESERV 11-30 00:29 → C.4E 12-01 12:35
PROVIDERS: ADMIT Family Medicine; ATTEND Family Medicine
PROC: 0BJ08ZZ Inspection of Tracheobronchial Tree, Via Natural or Artificial Opening Endoscopic (ICD-10-PCS; principal; 2016-12-03)
DX: J96.20 Acute and chronic respiratory failure, unspecified whether with hypoxia or hypercapnia (principal); J47.1 Bronchiectasis with (acute) exacerbation; F41.9 Anxiety disorder, unspecified; J45.909 Unspecified asthma, uncomplicated; E11.9 Type 2 diabetes mellitus without complications; F32.9 Major depressive disorder, single episode, unspecified; E78.5 Hyperlipidemia, unspecified; G47.33 Obstructive sleep apnea (adult) (pediatric); J98.09 Other diseases of bronchus, not elsewhere classified; Z99.81 Dependence on supplemental oxygen; Z87.01 Personal history of pneumonia (recurrent); Z90.710 Acquired absence of both cervix and uterus; Z90.49 Acquired absence of other specified parts of digestive tract; Z80.9 Family history of malignant neoplasm, unspecified; Z83.3 Family history of diabetes mellitus; Z82.49 Family history of ischemic heart disease and other diseases of the circulatory system; Z84.1 Family history of disorders of kidney and ureter; Z79.82 Long term (current) use of aspirin; Z79.4 Long term (current) use of insulin

== ENCOUNTER 2017-01-15 12:57 | Inpatient (IN) | payer OTHER ==
[2017-01-15] VITALS (14 sets, daily range): BP systolic 120–141; BP diastolic 70–88; PULSE 93–110; TEMP 36.8; O2SAT 93–98; Ht 160 cm; Wt 76.6 kg
[~2017-01-15] VITALS: Ht 160 cm; Wt 76.6 kg
[2017-01-15] MEDS ORDERED: MISCCAP80 PO (13:12)
[2017-01-15] MEDS ORDERED: ALBINS INH (13:15)
[2017-01-15] MEDS ORDERED: MAGNESIUM SULFATE 1GM / D5W 1 GM BAG IV STA (13:28)
[2017-01-15] MEDS ORDERED: METHYLPREDNISOLONE 125 MG VIAL IV STA (13:28)
[2017-01-15] MEDS ORDERED: ALBUT/IPRATROP 3MG/0.5MG NEB 3 ML VIAL INH ONE (13:30)
[2017-01-15] MEDS ORDERED: AZITHROMYCIN IV 500 MG in DEXTROSE 5% 250ML 250 ML IV ONE (13:30)
[2017-01-15] MEDS ORDERED: SODIUM CHLORIDE 0.9% 1000ML 1,000 ML IV STA (13:33)
--- NOTE | 2017-01-15 14:13 | EMERGENCY ROOM VISIT NOTE ---
History Report prepared by Alvaro: Alpesh Morris Under the Supervision of: Dr. Zane Moe M.D. First contact with patient: 13:24 Chief Complaint: SHORTNESS OF BREATH Stated Complaint: CHEST DISCOMFORT, HEART RATE UP, SOB, OGLESBY Nursing Triage Summary: triage note: pt reports since yesterday " i have felt bad." pt reports increased shortness of breath with movement. pt reports hx of bronchiecteses. History of Present Illness The patient is a 56 year old female who presents to the Emergency Room with complaints of constant shortness of breath starting yesterday. She rates her pain as a 3/10 in severity. The patient states that she did not feel well i yesterday and was experiencing diaphoresis. She states that she became short of breath and experienced a tightness sensation in her chest. The patient reports that whenever she walked, her heart rate would increase and her oxygen would decrease. She states that she was also experiencing nausea and a productive cough with yellow sputum. The patient admits that she uses a nebulizer once a day and has not increased her amount due to her difficulties with breathing when she uses it. She states that she uses a salt solution in her inhaler and it causes her shortness of breath to worsen. The patient admits that she told her remote sensing scientist, Dr. Villalta, about this problem. She states that she has a history of bronchiectasis due to severe childhood pneumonia. The patient states that she is constantly on oxygen and uses a nebulizer for this issue. She states that she was last hospitalized for shortness of breath due to her bronchiectasis in November and admits that her current symptoms are similar to that time. The patient denies fevers, chills, taking water pills, and smoking. Source of History: patient Onset: yesterday Position: other (global) Symptom Intensity: 3/10 Timing: constant Associated Symptoms: + diaphoresis, + cough, + chest pain, + nausea, No fevers, No chills Review of Systems See HPI for pertinent positives and negatives. A total of ten systems were reviewed and were otherwise negative. 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 (20) Tachycardia Surgical Problems: (1) H/O atrial septal defect repair (2) H/O: hysterectomy (3) History of hysterectomy (4) History of myringotomy (5) Hx of appendectomy (6) Hx of cholecystectomy (7) Hx of tympanostomy tubes (8) S/P bronchoscopy (9) S/P section (10) S/P sinus surgery (11) S/P tonsillectomy and adenoidectomy Family History Asthma SISTER Cancer SISTER FATHER MOTHER Diabetes mellitus Gallbladder disease Heart disease Hypertension FATHER Kidney disease Kidney stones Lung disease Social History Smoking Status: Never Smoker Alcohol Use: none Drug Use: none Marital Status: single Current/Historical Medications Scheduled Alendronate Sodium (Alendronate Sodium), 70 MG PO TUESDAYS Aspirin (Aspirin Chewable), 81 MG PO QAM Calcium Carbonate-Vitamin D W/ (Caltrate 600 Plus), 1 TAB PO BID Cyanocobalamin (Vitamin B12), 1,000 MCG PO DAILY Ferrous Sulfate (Ferrous Sulfate), 325 MG PO DAILY Fluticasone Propionate (Nasal) (Flonase Allergy Relief), 2 SPRY ESPERANZA QAM Folic Acid (Folic Acid), 1 MG PO QAM Home O2 Therapy (Oxygen), 4 LITERS NA DAILY Hydrocortisone (Cortef), 15 MG PO QAM Insulin Human NPH (Novolin N), 10 UNITS SQ QAM Magnesium Oxide (Mg Supplement (Magnesium), 400 MG PO DAILY Metoprolol Tartrate (Lopressor) (Lopressor), 1 TAB PO BID Multiple Vitamin (Multivitamin), 1 TAB PO QAM Pantoprazole (Protonix), 40 MG PO QAM Probiotic Product (Probiotic), 1 CAP PO DAILY Scheduled PRN Albuterol Sulf (Albuterol Sulfate), 1 DOSE INH Q4H PRN for Shortness of Breath Dextromethorphan-Guaifenesin (Mucinex Dm Maximum Streng), 1 TAB PO BID PRN for Nasal Congestion Allergies Coded Allergies: Albuterol (Verified Adverse Reaction, Mild, CHEST PAIN, LEVALBUTEROL OK, 01/15/17) PT STATES "IF TAKE TOO MUCH DEVELOPS CHEST PAIN". TOLERATE LEVALBUTEROL 04/2015 Physical Exam Vital Signs Date Time Temp Pulse Resp B/P (MAP) Pulse Ox O2 Delivery O2 Flow Rate FiO2 01/15/17 16:54 Nasal Cannula 6.0 01/15/17 16:47 109 20 112/68 93 Nasal Cannula 6.0 01/15/17 14:45 95 18 121/74 95 Nebulizer 01/15/17 14:16 94 17 93 Nasal Cannula 4.0 01/15/17 14:04 99 01/15/17 13:35 93 Nasal Cannula 01/15/17 13:24 92 Nasal Cannula 01/15/17 13:01 37.0 99 24 136/81 91 Nasal Cannula 4.0 01/15/17 13:00 91 Nasal Cannula 4.0 Physical Exam GENERAL: Awake, alert, chronically ill-appearing, in no distress HENT: Normocephalic, atraumatic. Oropharynx unremarkable. Dry mucous membranes. EYES: Normal conjunctiva. Sclera non-icteric. NECK: Supple. No nuchal rigidity. FROM. No JVD. RESPIRATORY: Diminished breath sounds with scattered rhonchi and wheezing throughout. Mild use of accessory muscles. Mild distress in tripod position. CARDIAC: Regular rate, normal rhythm. Extremities warm and well perfused. Pulses equal. ABDOMEN: Soft, non-distended. No tenderness to palpation. No rebound or guarding. No masses. RECTAL: Deferred. MUSCULOSKELETAL: Chest examination reveals no tenderness. The back is symmetrical on inspection without obvious abnormality. There is no CVA tenderness to palpation. No joint edema. LOWER EXTREMITIES: Calves are equal size bilaterally and non-tender. No edema. No discoloration. NEURO: Normal sensorium. No sensory or motor deficits noted. SKIN: No rash or jaundice noted. Medical Decision & Procedures ER Provider Diagnostic Interpretation: X-ray: Per my interpretation, radiologist review. CHEST ONE VIEW PORTABLE HISTORY: 56 years-old Female CHEST PAIN acute atypical chest pain COMPARISON: Chest radiograph 11/29/2016, chest CT 10/01/2016 TECHNIQUE: Portable upright AP view of the chest FINDINGS: Bilateral bronchiectasis with mucoid impaction and chronic reticular nodular opacities of the bilateral lungs are redemonstrated. No significant change from comparison. Cardiac silhouette is mildly enlarged. There is atherosclerosis of the aorta. Prior median sternotomy. Right internal jugular [id number]-l-[id number] catheter appears unchanged. No pneumothorax or large pleural effusion. Right shoulder hemiarthroplasty noted. Bones are grossly intact. IMPRESSION: 1. No acute cardiopulmonary process. 2. Redemonstration of bronchiectasis with mucoid impaction and diffuse multilobar multifocal distribution of reticular nodular opacities. The above report was generated using voice recognition software. It may contain grammatical, syntax or spelling errors. Electronically signed by: Lobo Yoo M.D. 01/15/2017 3:00 PM Dictated Date/Time: 01/15/2017 2:58 PM Laboratory Results 01/15/17 13:50 Red Blood Count 3.86, Mean Corpuscular Volume 81.3, Mean Corpuscular Hemoglobin 25.1, Mean Corpuscular Hemoglobin Concent 30.9, Mean Platelet Volume 9.1, Neutrophils (%) (Auto) 84.6, Lymphocytes (%) (Auto) 9.8, Monocytes (%) (Auto) 3.8, Eosinophils (%) (Auto) 1.4, Basophils (%) (Auto) 0.2, Neutrophils # (Auto) 11.80, Lymphocytes # (Auto) 1.37, Monocytes # (Auto) 0.53, Eosinophils # (Auto) 0.19, Basophils # (Auto) 0.03 01/15/17 13:52 Test 01/15/17 13:50 01/15/17 13:52 01/15/17 14:21 White Blood Count 13.95 K/uL (4.8-10.8) Red Blood Count 3.86 M/uL (4.2-5.4) Hemoglobin 9.7 g/dL (12.0-16.0) Hematocrit 31.4 % (37-47) Mean Corpuscular Volume 81.3 fL (80-100) Mean Corpuscular Hemoglobin 25.1 pg (25-34) Mean Corpuscular Hemoglobin Concent 30.9 g/dl (32-36) Platelet Count 285 K/uL (130-400) Mean Platelet Volume 9.1 fL (7.4-10.4) Neutrophils (%) (Auto) 84.6 % Lymphocytes (%) (Auto) 9.8 % Monocytes (%) (Auto) 3.8 % Eosinophils (%) (Auto) 1.4 % Basophils (%) (Auto) 0.2 % Neutrophils # (Auto) 11.80 K/uL (1.4-6.5) Lymphocytes # (Auto) 1.37 K/uL (1.2-3.4) Monocytes # (Auto) 0.53 K/uL (0.11-0.59) Eosinophils # (Auto) 0.19 K/uL (0-0.5) Basophils # (Auto) 0.03 K/uL (0-0.2) RDW Standard Deviation 49.9 fL (36.4-46.3) RDW Coefficient of Variation 16.7 % (11.5-14.5) Immature Granulocyte % (Auto) 0.2 % Immature Granulocyte # (Auto) 0.03 K/uL (0.00-0.02) Anion Gap 5.0 mmol/L (3-11) Est Creatinine Clear Calc Drug Dose 97.6 ml/min Estimated GFR () 116.4 Estimated GFR (Non- 100.5 BUN/Creatinine Ratio 13.2 (10-20) Lactic Acid Level 1.1 mmol/L (0.4-2.0) Calcium Level 9.1 mg/dl (8.5-10.1) Total Bilirubin 0.3 mg/dl (0.2-1) Direct Bilirubin < 0.1 mg/dl (0-0.2) Aspartate Amino Transf (AST/SGOT) 13 U/L (15-37) Alanine Aminotransferase (ALT/SGPT) 18 U/L (12-78) Alkaline Phosphatase 83 U/L (45-117) Troponin I < 0.015 ng/ml (0-0.045) Pro-B-Type Natriuretic Peptide 201 pg/ml (0-900) Total Protein 8.6 gm/dl (6.4-8.2) Albumin 2.9 gm/dl (3.4-5.0) Lipase 178 U/L (73-393) Venous Blood pH 7.35 (7.36-7.41) Venous Blood Partial Pressure CO2 64 mmHg (38.0-50.0) Venous Blood Partial Pressure O2 31 mmHg Venous Blood HCO3 35 mmol/L Venous Blood Oxygen Saturation < 60.0 % Venous Blood Base Excess 7.5 mEq/L Laboratory results reviewed by me Medications Administered Medications (Trade) Dose Ordered Sig/Man Route Start Time Stop Time Status Last Admin Dose Admin Albuterol/ Ipratropium (Duoneb) 12 ml ONE ONCE INH 01/15/17 13:30 01/15/17 13:35 DC 01/15/17 14:16 12 ML Methylprednisolone Sodium Succinate (Solu-Medrol IV) 125 mg NOW STAT IV 01/15/17 13:28 01/15/17 13:35 DC 01/15/17 14:18 125 MG Magnesium Sulfate (Magnesium Sulfate) 2 gm NOW STAT IV 01/15/17 13:28 01/15/17 13:35 DC 01/15/17 14:19 2 GM Azithromycin 500 mg/Dextrose 255 ml @ 125 mls/hr ONE ONCE IV 01/15/17 13:30 01/15/17 15:32 DC 01/15/17 14:42 125 MLS/HR Sodium Chloride 1,000 ml @ 999 mls/hr Q1H1M STAT IV 01/15/17 13:33 01/15/17 14:33 DC 01/15/17 13:33 999 MLS/HR Vancomycin HCl 1500 mg/Sodium Chloride 530 ml @ 200 mls/hr ONE STAT IV 01/15/17 16:06 01/15/17 18:44 DC 01/15/17 17:02 200 MLS/HR Piperacillin Sod/ Tazobactam Sod (Zosyn Iv) 4.5 gm NOW STAT IV 01/15/17 16:06 01/15/17 16:12 DC 01/15/17 17:02 4.5 GM ECG Indication: SOB/dyspnea Rate (beats per minute): 98 Rhythm: sinus rhythm Findings: nonspecific-ST abn (precordial), other (Short MS interval, Normal axis and intervals, T wave abnormality in precordial) Comparison ECG Date: 11/30/16 Change: no significant change ED Course 1326: The patient was evaluated in room A03. A complete history and physical exam was performed. 1328: Ordered Magnesium Sulfate 2 gm IV, Solu-Medrol IV 125 mg IV. 1330: Ordered Azithromycin 500 mg/ Dextrose 255 ml @ 125 mls/hr IV, Duoneb 12 ml INH. 1333: Ordered Sodium Chloride 1000 ml @ 999 mls/hr IV. 1606: Ordered Zosyn Iv 4.5 gm IV, Vancomycin HCl 1500 mg/Sodium Chloride. 1608: I discussed the patient's case with Saran Uriostegui. He understands that patient's condition and agrees to accept the patient. The patient will be further evaluated. 1624: I reevaluated the patient and she is still short of breath. She will be receiving a CPAP. Medical Decision I reviewed the patient's past medical history, medications, and the nursing notes as described above. The patient's presentation and history were concerning for PNA, bronchitis, dehydration, electrolyte abnormality, ACS, and CHF. The patient is a 56-year-old woman with a past medical history of bronchiectasis on oxygen 01/11, BILL on home nocturnal CPAP, followed by pulmonology who presents to the emergency department with worsening cough yellow sputum production chills and fatigue since yesterday per history of present illness. I will the patient appears in mild distress with accessory muscle use in the tripod position. Lung sounds are diminished throughout with scattered rhonchi and wheezing. Given patient's history with wheezing and yellow sputum, she was treated with Solu-Medrol, nebs, magnesium, empiric Azithromycin. WBC 14, CO2 60s, chest x-ray with mucoid plugging consistent with the patient's bronchiectasis. Alert given the patient's elevated WBC setting of her report of malaise and feverishness, will treat for pneumonia with broad-spectrum given admission within 90 days. Case was discussed with Saran Uriostegui and the patient for further management. Patient was reassessed after her nebulizer and will she has increased air movement still with accessory muscle use and tripoding and thus patient was ordered for BiPAP to help decrease work of breathing and for her hypercarbia. Medication Reconcilliation Current Medication List: was personally reviewed by me Blood Pressure Screening Patient's blood pressure: Elevated blood pressure Blood pressure disposition: Elevated BP felt to be situational Consults Time Called: 1608 Consulting Physician: Saran Uriostegui Returned Call: 1608 I discussed the patient's case with Saran Uriostegui. He understands that patient's condition and agrees to accept the patient. The patient will be further evaluated. Impression Primary Impression: Pneumonia Additional Impressions: Bronchiectasis Acute and chronic respiratory failure with hypercapnia Critical Care I have personally spent greater than 80 minutes of critical care time in the direct management of this patient. This includes bedside care, interpretation of diagnostic studies, and testing, discussion with consultants, patient, and family members, and other required patient management activities. This 80 minutes is in excess of all separately billable procedures. Scribe Attestation The scribe's documentation has been prepared under my direction and personally reviewed by me in its entirety. I confirm that the note above accurately reflects all work, treatment, procedures, and medical decision making performed by me. Departure Information Dispostion Being Evaluated By Hospitalist Ivonne Rodríguez (PCP) Patient Instructions My [facility] Problem Qualifiers
[2017-01-15 14:20] LABS: BASO % 0.2 %; BASO ABS # 0.03 K/uL (0-0.2); COMPLETE YES; EOS % 1.4 %; HEMATOCRIT 31.4 % (37-47); IG% 0.2 %; LYMPH % 9.8 %; LYMPH ABS # 1.37 K/uL (1.2-3.4); MEAN CELL VOLUME 81.3 fL (80-100); MEAN CORPUSCULAR HEMOGLOBIN 25.1 pg (25-34); MEAN CORPUSCULAR HGB CONC 30.9 g/dl (32-36); MEAN PLATELET VOLUME 9.1 fL (7.4-10.4); MONO % 3.8 %; NEUT % 84.6 %; PLATELET COUNT 285 K/uL (130-400); RED BLOOD COUNT 3.86 M/uL (4.2-5.4); WHITE BLOOD COUNT 13.95 K/uL (4.8-10.8)
[2017-01-15 14:35] LABS: VEN BLOOD GAS BASE EXCESS 7.5 mEq/L; VENOUS BLOOD GAS PCO2 64 mmHg (38.0-50.0); VENOUS BLOOD GAS PO2 31 mmHg
[2017-01-15 14:38] LABS: VEN BLD GAS O2 SATURATION < 60.0 %
[2017-01-15 14:39] LABS: ALT/SGPT 18 U/L (12-78); AST/SGOT 13 U/L (15-37); BLOOD UREA NITROGEN 8 mg/dl (7-18); BUN/CREATININE RATIO 13.2 (10-20); CALCIUM 9.1 mg/dl (8.5-10.1); CARBON DIOXIDE 32 mmol/L (21-32); CHLORIDE 96 mmol/L (98-107); CREATININE 0.64 mg/dl (0.60-1.20); GLUCOSE 156 mg/dl (70-99); POTASSIUM 4.7 mmol/L (3.5-5.1); SODIUM 133 mmol/L (136-145)
[2017-01-15 14:44] LABS: ALKALINE PHOSPHATASE 83 U/L (45-117)
--- NOTE | 2017-01-15 15:02 | DIAGNOSTIC IMAGING REPORT ---
CHEST ONE VIEW PORTABLE HISTORY: 56 years-old Female CHEST PAIN acute atypical chest pain COMPARISON: Chest radiograph 11/29/2016, chest CT 10/01/2016 TECHNIQUE: Portable upright AP view of the chest FINDINGS: Bilateral bronchiectasis with mucoid impaction and chronic reticular nodular opacities of the bilateral lungs are redemonstrated. No significant change from comparison. Cardiac silhouette is mildly enlarged. There is atherosclerosis of the aorta. Prior median sternotomy. Right internal jugular Naljxq-n-Rzme catheter appears unchanged. No pneumothorax or large pleural effusion. Right shoulder hemiarthroplasty noted. Bones are grossly intact. IMPRESSION: 1. No acute cardiopulmonary process. 2. Redemonstration of bronchiectasis with mucoid impaction and diffuse multilobar multifocal distribution of reticular nodular opacities. The above report was generated using voice recognition software. It may contain grammatical, syntax or spelling errors. Electronically signed by: Lobo Yoo M.D. 01/15/2017 3:00 PM Dictated Date/Time: 01/15/2017 2:58 PM
[2017-01-15] MEDS ORDERED: VANCOMYCIN INJ 1,500 MG in SODIUM CHLORIDE 0.9% 500ML 500 ML IV STA (16:06)
[2017-01-15] MEDS ORDERED: PIPERACILLIN/TAZOBACTAM 4.5 GM/100ML D5W IV STA (16:06)
--- NOTE | 2017-01-15 17:13 | History and Physical ---
History & Physical Date & Time of Service: Jan 15, 2017 at 17:13 Chief Complaint: Chest Discomfort, Heart Rate Up, Sob, [place] Primary Care Physician: Ivonne Subramanian History of Present Illness Source: patient, family, clinic records, hospital records 56 year old female with history of Bronchiectasis, Chronic Respiratory Failure, DM, Immunedeficiency/Hypogammaglobulinemia presenting with shortness of breath and cough since yesterday. Patient reports increasing shortness of breath and cough since yesterday associated with increased sputum production. Denies fever/chills, reports some chest tightness with the dyspnea. Denies other symptoms. Past Medical/Surgical History Medical Problems: (1) Anxiety Status: Chronic (2) Asthma Status: Chronic (3) Chronic respiratory failure Status: Chronic (4) COPD exacerbation Status: Resolved (5) Depression Status: Chronic (6) Diabetes Status: Chronic (7) Emphysema Status: Resolved (8) GERD (gastroesophageal reflux disease) Status: Chronic (9) Hyperlipidemia Status: Chronic (10) Hypogammaglobulinemia Status: Chronic (11) Idiopathic bronchiectasis Status: Chronic (12) Immunodeficiency Status: Chronic (13) Mild pulmonary hypertension Status: Chronic (14) BILL (obstructive sleep apnea) Status: Chronic (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 Permanent Comment: 2L Status: Chronic (16) Pneumonia Status: Resolved (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 (18) Tachycardia Status: Chronic Surgical Problems: (1) H/O atrial septal defect repair Status: Resolved (2) H/O: hysterectomy Status: Resolved (3) History of hysterectomy Status: Resolved (4) History of myringotomy Status: Resolved (5) Hx of appendectomy Status: Resolved (6) Hx of cholecystectomy Status: Resolved (7) Hx of tympanostomy tubes Status: Resolved (8) S/P bronchoscopy Status: Resolved (9) S/P section Status: Chronic (10) S/P sinus surgery Status: Resolved (11) S/P tonsillectomy and adenoidectomy Status: Resolved Family History Asthma SISTER Cancer SISTER FATHER MOTHER Diabetes mellitus Gallbladder disease Heart disease Hypertension FATHER Kidney disease Kidney stones Lung disease Social History Smoking Status: Never Smoker Drug Use: none Marital Status: single Housing status: lives alone Immunizations History of Influenza Vaccine: Yes Influenza Vaccine Date: Mar 14, 2015 History of Tetanus Vaccine?: Yes Tetanus Immunization Date: Jun 16, 2010 History of Pneumococcal: Yes Pneumococcal Date: Sep 22, 2010 History of Hepatitis B Vaccine: Unknown Multi-Drug Resistant Organisms History of MDRO: No Allergies Coded Allergies: Albuterol (Verified Adverse Reaction, Mild, CHEST PAIN, LEVALBUTEROL OK, 01/15/17) PT STATES "IF TAKE TOO MUCH DEVELOPS CHEST PAIN". TOLERATE LEVALBUTEROL 04/2015 Home Medications Scheduled Alendronate Sodium (Alendronate Sodium), 70 MG PO TUESDAYS Aspirin (Aspirin Chewable), 81 MG PO QAM Calcium Carbonate-Vitamin D W/ (Caltrate 600 Plus), 1 TAB PO BID Cyanocobalamin (Vitamin B12), 1,000 MCG PO DAILY Ferrous Sulfate (Ferrous Sulfate), 325 MG PO DAILY Fluticasone Propionate (Nasal) (Flonase Allergy Relief), 2 SPRY ESPERANZA QAM Folic Acid (Folic Acid), 1 MG PO QAM Home O2 Therapy (Oxygen), 4 LITERS NA DAILY Hydrocortisone (Cortef), 15 MG PO QAM Insulin Human NPH (Novolin N), 10 UNITS SQ QAM Magnesium Oxide (Mg Supplement (Magnesium), 400 MG PO DAILY Metoprolol Tartrate (Lopressor) (Lopressor), 1 TAB PO BID Multiple Vitamin (Multivitamin), 1 TAB PO QAM Pantoprazole (Protonix), 40 MG PO QAM Probiotic Product (Probiotic), 1 CAP PO DAILY Scheduled PRN Albuterol Sulf (Albuterol Sulfate), 1 DOSE INH Q4H PRN for Shortness of Breath Dextromethorphan-Guaifenesin (Mucinex Dm Maximum Streng), 1 TAB PO BID PRN for Nasal Congestion Review of Systems Constitutional- no fever; no weight loss Eyes- no acute visual changes ENT- no sinus drainage; no pharyngitis Pulmonary- (+) as noted above Cardiac- no chest pain, no palpitations, no orthopnea, no dependent edema GI- no nausea, no vomiting, no diarrhea, no melena, no hematochezia - no dysuria, no hematuria Musculoskeletal- no arthralgias, no myalgias Derm- no rashes, no new skin lesions, no changing skin lesions Hematologic- no unusual bruising, no unusual bleeding Lymphatics- no adenopathy Endocrine- no polyuria or polydipsia; no heat or cold intolerance Neuro- no headaches, no focal neurologic symptoms Psych- no anxiety, no depression Physical Exam Vital Signs Date Time Temp Pulse Resp B/P (MAP) Pulse Ox O2 Delivery O2 Flow Rate FiO2 01/15/17 17:08 107 27 95 BiPAP 40 01/15/17 17:05 108 95 40 01/15/17 16:54 Nasal Cannula 6.0 01/15/17 16:47 109 20 112/68 93 Nasal Cannula 6.0 01/15/17 14:45 95 18 121/74 95 Nebulizer 01/15/17 14:16 94 17 93 Nasal Cannula 4.0 01/15/17 14:04 99 01/15/17 13:35 93 Nasal Cannula 01/15/17 13:24 92 Nasal Cannula 01/15/17 13:01 37.0 99 24 136/81 91 Nasal Cannula 4.0 01/15/17 13:00 91 Nasal Cannula 4.0 General Appearance: WD/WN, + mild distress (tachypneic, speaks in sentences with some effort) Head: normocephalic, atraumatic Eyes: normal inspection, PERRL, EOMI, sclerae normal ENT: normal ENT inspection, hearing grossly normal, TMs normal Neck: supple, no adenopathy, thyroid normal, no JVD, trachea midline Respiratory/Chest: + crackles (bilateral, diffuse) Cardiovascular: regular rate, rhythm, no edema, no JVD, no murmur Abdomen/GI: normal bowel sounds, non tender, soft Extremities/Musculoskelatal: normal inspection, no calf tenderness, normal capillary refill, no pedal edema Neurologic/Psych: [employer] 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, no motor/sensory deficits, alert, normal mood/affect, oriented x 3 Skin: normal color, warm/dry, no rash Diagnostics Laboratory Results Results Past 24 Hours Test 01/15/17 13:50 01/15/17 13:52 01/15/17 14:21 Range/Units White Blood Count 13.95 4.8-10.8 K/uL Red Blood Count 3.86 4.2-5.4 M/uL Hemoglobin 9.7 12.0-16.0 g/dL Hematocrit 31.4 37-47 % Mean Corpuscular Volume 81.3 80-100 fL Mean Corpuscular Hemoglobin 25.1 25-34 pg Mean Corpuscular Hemoglobin Concent 30.9 32-36 g/dl Platelet Count 285 130-400 K/uL Mean Platelet Volume 9.1 7.4-10.4 fL Neutrophils (%) (Auto) 84.6 % Lymphocytes (%) (Auto) 9.8 % Monocytes (%) (Auto) 3.8 % Eosinophils (%) (Auto) 1.4 % Basophils (%) (Auto) 0.2 % Neutrophils # (Auto) 11.80 1.4-6.5 K/uL Lymphocytes # (Auto) 1.37 1.2-3.4 K/uL Monocytes # (Auto) 0.53 0.11-0.59 K/uL Eosinophils # (Auto) 0.19 0-0.5 K/uL Basophils # (Auto) 0.03 0-0.2 K/uL RDW Standard Deviation 49.9 36.4-46.3 fL RDW Coefficient of Variation 16.7 11.5-14.5 % Immature Granulocyte % (Auto) 0.2 % Immature Granulocyte # (Auto) 0.03 0.00-0.02 K/uL Sodium Level 133 136-145 mmol/L Potassium Level 4.7 3.5-5.1 mmol/L Chloride Level 96 98-107 mmol/L Carbon Dioxide Level 32 21-32 mmol/L Anion Gap 5.0 3-11 mmol/L Blood Urea Nitrogen 8 7-18 mg/dl Creatinine 0.64 0.60-1.20 mg/dl Est Creatinine Clear Calc Drug Dose 97.6 ml/min Estimated GFR () 116.4 Estimated GFR (Non- 100.5 BUN/Creatinine Ratio 13.2 10-20 Random Glucose 156 70-99 mg/dl Lactic Acid Level 1.1 0.4-2.0 mmol/L Calcium Level 9.1 8.5-10.1 mg/dl Total Bilirubin 0.3 0.2-1 mg/dl Direct Bilirubin < 0.1 0-0.2 mg/dl Aspartate Amino Transf (AST/SGOT) 13 15-37 U/L Alanine Aminotransferase (ALT/SGPT) 18 12-78 U/L Alkaline Phosphatase 83 45-117 U/L Troponin I < 0.015 0-0.045 ng/ml Pro-B-Type Natriuretic Peptide 201 0-900 pg/ml Total Protein 8.6 6.4-8.2 gm/dl Albumin 2.9 3.4-5.0 gm/dl Lipase 178 73-393 U/L Venous Blood pH 7.35 7.36-7.41 Venous Blood Partial Pressure CO2 64 38.0-50.0 mmHg Venous Blood Partial Pressure O2 31 mmHg Venous Blood HCO3 35 mmol/L Venous Blood Oxygen Saturation < 60.0 % Venous Blood Base Excess 7.5 mEq/L Microbiology Results 01/15/17 Blood Culture, Received Pending 01/15/17 Blood Culture, Received Pending Diagnostic Radiology CXR: IMPRESSION: 1. No acute cardiopulmonary process. 2. Redemonstration of bronchiectasis with mucoid impaction and diffuse multilobar multifocal distribution of reticular nodular opacities. Impression Assessment and Plan 56 year old female with history of Bronchiectasis, Chronic Respiratory Failure, DM, Immunedeficiency/Hypogammaglobulinemia presenting with shortness of breath and cough since yesterday. BRONCHIECTASIS EXACERBATION - possible pneumonia? - ff up cultures - empiric Zosyn, Levaquin check nasal MRSA Nebs IV solumedrol - continue Bipap - ICU monitoring consult Pulmonary DM - ISS - pharmacy consulted as patient will be on high dose steroids HYPOGAMMAGLOBULINEMIA - receives monthly injection - on chronic hydrocortisone--> will be on IV solumedrol DVT proph SCDs for now Full code Dispo pending Advanced Directives Existing Living Will: No Existing Power of Manager Research: No VTE Prophylaxis VTE Risk Assessment Done? Y/N: Yes Risk Level: Moderate Given or contraindicated: SCD's
[2017-01-15] MEDS ORDERED: CONSULT PHARMACY SCH (17:14)
[2017-01-15] MEDS ORDERED: DEXTROSE 50% 50 ML SYR IV PRN (17:15)
[2017-01-15] MEDS ORDERED: INFLUENZA VIRUS QUAD VACCINE 0.5 ML SYR IM. ONE (17:15)
[2017-01-15] MEDS ORDERED: INFLUENZA ADMINISTRATION CHARGE ONE (17:15)
[2017-01-15] MEDS ORDERED: LEVALBUTEROL/IPRATROPIUM NEB INH SCH (17:15)
[2017-01-15] MEDS ORDERED: GLUCAGON FOR INJ 1 MG VIAL SQ PRN (17:15)
[2017-01-15] MEDS ORDERED: GLUCOSE 10 TABS/TUBE PO PRN (17:15)
[2017-01-15] MEDS ORDERED: GLUCOSE 40% GEL 15 GM TUBE PO PRN (17:15)
[2017-01-15] MEDS ORDERED: PHARMACY GLYCEMIC MGMT CONSULT SCH (17:47)
[2017-01-15] MEDS ORDERED: PIPERACILL/TAZOBAC CONSULT ACTIVE PRN (18:30)
[2017-01-15] MEDS ORDERED: LEVOFLOXACIN CONSULT ACTIVE PRN (18:30)
--- NOTE | 2017-01-15 19:06 | Critical Care Consultation ---
Critical Care Consultation Date of Consultation: Jan 15, 2017. Attending Physician: Young Sanchez MD Reason for Consultation: Acute respiratory distress secondary to COPD exacerbation/bronchiectasis. History of Present Illness I personally examined this patient, reviewed her clinical and laboratory data, interpreted heart chest x-ray formally and further plan of care. In summary, the patient is a 56-year-old female with history of hyperglobulinemia on monthly IVIG injections (the last one 4 days ago), frequent upper respiratory infections, colonized with stenotrophomonas developed progressively worsening shortness of breath since yesterday. She had an episode of significant nausea. She notices that sputum output became more copious, color became more yellow yesterday. Patient denies having any fever or chest pain. Patient presented to emergency room. She was hit technique, tachycardic. Work of breathing was increased. She was transferred critically ill to the surgical intensive care unit for further management. Past Medical/Surgical History Chronic respiratory failure. Hyperglobulinemia, monthly IVIG injections, the last one 01/12/2017 Bronchiectasis History of MAURICIO infection Anemia Diabetes Osteoporosis GERD History of C. difficile colitis Past surgical history: ASD repair at the age of 26 Hysterectomy Myringotomy Appendectomy Cholecystectomy Sinus surgery T&A Right humeral head replacement Family History Asthma SISTER Cancer SISTER FATHER MOTHER Diabetes mellitus Gallbladder disease Heart disease Hypertension FATHER Kidney disease Kidney stones Lung disease Social History Smoking Status: Never Smoker Drug Use: none Marital Status: single Occupation Status: other (patient lives alone, she stays on the first floor because of difficulty walking steps.) Allergies Coded Allergies: Albuterol (Verified Adverse Reaction, Mild, CHEST PAIN, LEVALBUTEROL OK, 01/15/17) PT STATES "IF TAKE TOO MUCH DEVELOPS CHEST PAIN". TOLERATE LEVALBUTEROL 04/2015 Home Medications Scheduled Alendronate Sodium (Alendronate Sodium), 70 MG PO TUESDAYS Aspirin (Aspirin Chewable), 81 MG PO QAM Calcium Carbonate-Vitamin D W/ (Caltrate 600 Plus), 1 TAB PO BID Cyanocobalamin (Vitamin B12), 1,000 MCG PO DAILY Ferrous Sulfate (Ferrous Sulfate), 325 MG PO DAILY Fluticasone Propionate (Nasal) (Flonase Allergy Relief), 2 SPRY ESPERANZA QAM Folic Acid (Folic Acid), 1 MG PO QAM Home O2 Therapy (Oxygen), 4 LITERS NA DAILY Hydrocortisone (Cortef), 15 MG PO QAM Insulin Human NPH (Novolin N), 10 UNITS SQ QAM Magnesium Oxide (Mg Supplement (Magnesium), 400 MG PO DAILY Metoprolol Tartrate (Lopressor) (Lopressor), 1 TAB PO BID Multiple Vitamin (Multivitamin), 1 TAB PO QAM Pantoprazole (Protonix), 40 MG PO QAM Probiotic Product (Probiotic), 1 CAP PO DAILY Scheduled PRN Albuterol Sulf (Albuterol Sulfate), 1 DOSE INH Q4H PRN for Shortness of Breath Dextromethorphan-Guaifenesin (Mucinex Dm Maximum Streng), 1 TAB PO BID PRN for Nasal Congestion Current Inpatient Medications Current Inpatient Medications Medications (Trade) Dose Ordered Sig/Man Route Start Time Stop Time Status Last Admin Dose Admin Methylprednisolone Sodium Succinate 60 mg/Syringe 0.96 ml @ 1.5 mls/min Q6H IV 01/15/17 20:00 02/14/17 19:59 Insulin Aspart (novoLOG ASPART) SLIDING SCALE If C... Q6 SC 01/16/17 00:00 02/15/17 00:00 Glucose (Glucose 40% Gel) 15-30 GRAMS 15 GRAMS... UD PRN PO 01/15/17 17:15 02/14/17 17:14 Glucose (Glucose Chew Tab) 4-8 Tablets 4 Tabl... UD PRN PO 01/15/17 17:15 02/14/17 17:14 Dextrose (Dextrose 50% 50ML Syringe) 25-50ML OF 50% DW IV FOR... UD PRN IV 01/15/17 17:15 02/14/17 17:14 Glucagon (Glucagon Inj) 1 mg UD PRN SQ 01/15/17 17:15 02/14/17 17:14 Miscellaneous Information (Consult Glycemic Management Pharmacy) 1 ea UD N/A 01/15/17 17:47 02/14/17 17:46 Pantoprazole Sodium 40 mg/ Syringe 10 ml @ 5 mls/min DAILY IV 01/16/17 09:00 02/15/17 08:59 Levofloxacin (Consult) 1 ea UD PRN N/A 01/15/17 18:30 02/14/17 18:29 Piperacillin Sod/ Tazobactam Sod (Consult) 1 ea UD PRN N/A 01/15/17 18:30 02/14/17 18:29 Levofloxacin 750 mg/Prmx 150 ml @ 100 mls/hr DAILY@1900 IV 01/15/17 19:00 01/22/17 18:59 Piperacillin Sod/ Tazobactam Sod 4.5 gm/Dextrose 120 ml @ 30 mls/hr Q8@0000,0800,1600 IV 01/16/17 00:00 01/23/17 00:00 Insulin Aspart (novoLOG ASPART) SLIDING SCALE If C... 0400 SC 01/16/17 04:00 01/16/17 04:01 Insulin Glargine (Lantus Solostar Pen) 20 units HS SC 01/15/17 21:00 01/15/17 21:01 Ipratropium Manson (Atrovent 0.02% 0.5MG/2.5ML Neb) 0.5 mg Q4R INH 01/15/17 20:00 02/14/17 19:59 Levalbuterol (Xopenex 1.25MG/ 0.5ML Neb) 1.25 mg Q4R INH 01/15/17 20:00 02/14/17 19:59 Review of Systems Constitutional: + weakness, + fatigue Respiratory: + cough, + sputum, + shortness of breath, + dyspnea on exertion Musculoskeletal: + joint pain Physical Exam Date Time Temp Pulse Resp B/P (MAP) Pulse Ox O2 Delivery O2 Flow Rate FiO2 01/15/17 18:06 96 BiPAP 01/15/17 18:01 110 22 141/88 (105) 96 BiPAP 40 01/15/17 17:43 100 27 132/77 96 01/15/17 17:08 107 27 95 BiPAP 40 01/15/17 17:05 108 95 40 01/15/17 16:54 Nasal Cannula 6.0 01/15/17 16:47 109 20 112/68 93 Nasal Cannula 6.0 01/15/17 14:45 95 18 121/74 95 Nebulizer 01/15/17 14:16 94 17 93 Nasal Cannula 4.0 01/15/17 14:04 99 01/15/17 13:35 93 Nasal Cannula 01/15/17 13:24 92 Nasal Cannula 01/15/17 13:01 37.0 99 24 136/81 91 Nasal Cannula 4.0 01/15/17 13:00 91 Nasal Cannula 4.0 Patient is middle age female who looks somewhat older than her stated age, not in distress while on BiPAP, able to speak in full sentences. Head was at traumatic normocephalic, pupils were equal round reactive to light, right eye lateral deviation since childhood. Mouth mucosa is moist, no rash. Neck was supple, no JVD, no carotid bruit, no lymphadenopathy. Chest examination revealed poor air movement diffusely, diffusely scattered rhonchi bilaterally. Heart was beating regularly, normal S1, S2, no S3. Abdomen is soft,, no hepatosplenomegaly, no palpable masses, bowel sounds are present. Lower extremity with the good peripheral pulses, no calf tenderness, good capillary refill. No swelling. Laboratory Results Last 24 Hours Test 01/15/17 13:50 01/15/17 13:52 01/15/17 14:21 White Blood Count 13.95 K/uL Red Blood Count 3.86 M/uL Hemoglobin 9.7 g/dL Hematocrit 31.4 % Mean Corpuscular Volume 81.3 fL Mean Corpuscular Hemoglobin 25.1 pg Mean Corpuscular Hemoglobin Concent 30.9 g/dl Platelet Count 285 K/uL Mean Platelet Volume 9.1 fL Neutrophils (%) (Auto) 84.6 % Lymphocytes (%) (Auto) 9.8 % Monocytes (%) (Auto) 3.8 % Eosinophils (%) (Auto) 1.4 % Basophils (%) (Auto) 0.2 % Neutrophils # (Auto) 11.80 K/uL Lymphocytes # (Auto) 1.37 K/uL Monocytes # (Auto) 0.53 K/uL Eosinophils # (Auto) 0.19 K/uL Basophils # (Auto) 0.03 K/uL RDW Standard Deviation 49.9 fL RDW Coefficient of Variation 16.7 % Immature Granulocyte % (Auto) 0.2 % Immature Granulocyte # (Auto) 0.03 K/uL Sodium Level 133 mmol/L Potassium Level 4.7 mmol/L Chloride Level 96 mmol/L Carbon Dioxide Level 32 mmol/L Anion Gap 5.0 mmol/L Blood Urea Nitrogen 8 mg/dl Creatinine 0.64 mg/dl Est Creatinine Clear Calc Drug Dose 97.6 ml/min Estimated GFR () 116.4 Estimated GFR (Non- 100.5 BUN/Creatinine Ratio 13.2 Random Glucose 156 mg/dl Lactic Acid Level 1.1 mmol/L Calcium Level 9.1 mg/dl Total Bilirubin 0.3 mg/dl Direct Bilirubin < 0.1 mg/dl Aspartate Amino Transf (AST/SGOT) 13 U/L Alanine Aminotransferase (ALT/SGPT) 18 U/L Alkaline Phosphatase 83 U/L Troponin I < 0.015 ng/ml Pro-B-Type Natriuretic Peptide 201 pg/ml Total Protein 8.6 gm/dl Albumin 2.9 gm/dl Lipase 178 U/L Venous Blood pH 7.35 Venous Blood Partial Pressure CO2 64 mmHg Venous Blood Partial Pressure O2 31 mmHg Venous Blood HCO3 35 mmol/L Venous Blood Oxygen Saturation < 60.0 % Venous Blood Base Excess 7.5 mEq/L Assessment & Plan 1. Acute respiratory failure secondary to COPD exacerbation in the setting of hypogammaglobulinemia and bronchiectasis. Patient was placed on BiPAP with significantly improved oxygenation and for breathing. 2. COPD, bronchiectasis in the setting of hypoglobulinemia. Chest x-ray revealed diffuse reticular nodular pattern. There is worsening leukocytosis above the baseline, no fever, increased sputum production and change in color. There is no obvious pneumonia, though it would be reasonable to treat patient with short course of antibiotics. We will continue with Zosyn and levofloxacin while awaiting for cultures. History of stenotrophomonas colonization. We will continue with IV steroids for COPD exacerbation. We'll continue with DuoNeb's. We will add vancomycin as patient was hospitalized less than 2 months ago. We will obtain pulmonary consultation as patient may require bronchoscopy. 3. Hemodynamics are acceptable. No signs of cardiac ischemia. 4. Renal function is adequate. We will monitor electrolytes and urine output. 5. Neurologically no deficits. 6. Mild nausea. Abdomen is benign on examination. We will watch we'll initiate diet. 7. Diabetes mellitus. Expect worsening of hyperglycemia with administration of IV steroids. Will adjust insulin sliding scale. 8. Heparin for DVT prophylaxis. 9. Patient is full code. CCT 32 min.
[2017-01-15] MEDS: LEVALBUTEROL 1.25MG/0.5ML NEB INH SCH ×2 (19:12→23:42)
[2017-01-15] MEDS: IPRATROPIUM BROMIDE NEB SOLN 0.02% 2.5 ML VIAL INH SCH ×2 (19:12→23:42)
[2017-01-15 19:16] LABS: IPAP 12; ISTAT ALLEN TEST Pass; ISTAT ARTERIAL BLOOD GAS HCO3 30 meq/L (19-24); ISTAT ARTERIAL BLOOD GAS PCO2 51 mmHg (35-46); ISTAT ARTERIAL BLOOD GAS PO2 95 mmHg (80-95); ISTAT ARTERIAL BLOOD GAS pH 7.37 (7.35-7.45); ISTAT CARBON DIOXIDE 32 mEq/l (24-31); ISTAT DELIVERY SYSTEM BIPAP; ISTAT FIO2 40 %; ISTAT RATE 24; ISTAT SITE R Radial
[2017-01-15] MEDS: LEVOFLOXACIN 750MG / D5W IV SCH (19:54)
[2017-01-15] MEDS: METHYLPREDNISOLONE IV 60 MG in SYRINGE 0 ML IV SCH (19:55)
[2017-01-15] MEDS ORDERED: VANCOMYCIN CONSULT ACTIVE PRN (20:00)
[2017-01-15] MEDS ORDERED: INSULIN GLARGINE SOLOSTAR 100 UNITS/ML 3 ML PEN SC SCH (21:00)
--- NOTE | 2017-01-15 22:19 | Pharmacy Progress Note ---
Glycemic Control Intl Consult Date of Service Jan 15, 2017. Scope Glycemic Pharmacist consulted by Dr Sanchez on 01/15/17 for glycemic control and to write orders per [facility] inpatient glycemic control protocol Objective Weight (Kilograms): 77.000 Accuchecks BSG (last 24hrs): Test 01/15/17 13:52 Random Glucose 156 mg/dl (70-99) Laboratory Data (last 24hrs) Test 01/15/17 13:50 01/15/17 13:52 White Blood Count 13.95 K/uL Red Blood Count 3.86 M/uL Hemoglobin 9.7 g/dL Hematocrit 31.4 % Mean Corpuscular Volume 81.3 fL Mean Corpuscular Hemoglobin 25.1 pg Mean Corpuscular Hemoglobin Concent 30.9 g/dl Platelet Count 285 K/uL Mean Platelet Volume 9.1 fL Neutrophils (%) (Auto) 84.6 % Lymphocytes (%) (Auto) 9.8 % Monocytes (%) (Auto) 3.8 % Eosinophils (%) (Auto) 1.4 % Basophils (%) (Auto) 0.2 % Neutrophils # (Auto) 11.80 K/uL Lymphocytes # (Auto) 1.37 K/uL Monocytes # (Auto) 0.53 K/uL Eosinophils # (Auto) 0.19 K/uL Basophils # (Auto) 0.03 K/uL Anion Gap 5.0 mmol/L BUN/Creatinine Ratio 13.2 Blood Urea Nitrogen 8 mg/dl Creatinine 0.64 mg/dl Potassium Level 4.7 mmol/L Sodium Level 133 mmol/L Recent Pertinent Medications Outpatient Anti-diabetic Regimen: * NPH 10 units qam, also takes hydrocortisone 15 mg qam, 5 mg qpm, sometimes prednisone taper * A1c = pending 01/16/17 The patient is currently receiving: * Basal insulin: none * Correctional Insulin: none * Prandial insulin: none * Oral Agents: none Risk Factors for Insulin Resistance: * Steroids: Solumedrol 125 mg IV x1, then 60 mg q6h * Infection: pneumonia, on Levaquin, Zosyn, vancomycin * Pressors:no * IVF: Levaquin and Zosyn mixed in D5W * Recent Surgery: no * Diet: npo * Mechanical Ventilation: no Assessment & Plan ASSESSMENT: * ADA & AACE recommend a goal blood sugar range 140-180 mg/dl for the majority of critically ill & non-critically ill patients. However, more stringent targets may be selected in individual cases. * 56yo patient with steroid-induced hyperglycemia, known to us from previous admissions. Now on high-dose steroids for respiratory failure. Will give single dose Lantus, fairly strict correction factor and carb ratio, and will reassess in am. PLAN FOR INPATIENT GLYCEMIC CONTROL: * Basal insulin with LANTUS 20 units SQ tonight-reassess in am * Correctional Insulin with NOVOLOG per scale ACHS or Q6hrs while NPO * Goal Range: Low 140 mg/dL - High 180 mg/dL * Correction Factor: 20 mg/dL/unit * Nutritional / Prandial insulin per carb ratio of 1 unit per 7 grams CHO consumed * Please note that the plan above was derived based on current level of insulin resistance and hospital stress. These recommendations are appropriate for inpatient admission only. Plan of care upon discharge will need to be reassessed to avoid potential outpatient hypo/hyperglycemia. Thank you.
--- NOTE | 2017-01-15 22:29 | Pharmacy Progress Note ---
Pharmacy Antibiotic Consult Date of Service: Jan 15, 2017. Pharmacy Dosing Scope Pharmacy is consulted to initiate Zosyn, Levaquin, and vancomycin IV dosing therapy, order appropriate labs and adjust drug dose/frequency. Subjective The patient is a 56 year old female admitted on Jan 15, 2017 at 16:59. History of steroid-induced hyperglycemia, COPD, pneumonia. Objective Height (Feet): 5 Height (Inches): 3.00 Weight (Kilograms): 77.000 Lab Results (24hrs): Test 01/15/17 13:50 01/15/17 13:52 01/15/17 14:21 01/15/17 19:02 White Blood Count 13.95 K/uL (4.8-10.8) Red Blood Count 3.86 M/uL (4.2-5.4) Hemoglobin 9.7 g/dL (12.0-16.0) Hematocrit 31.4 % (37-47) Mean Corpuscular Volume 81.3 fL (80-100) Mean Corpuscular Hemoglobin 25.1 pg (25-34) Mean Corpuscular Hemoglobin Concent 30.9 g/dl (32-36) Platelet Count 285 K/uL (130-400) Mean Platelet Volume 9.1 fL (7.4-10.4) Neutrophils (%) (Auto) 84.6 % Lymphocytes (%) (Auto) 9.8 % Monocytes (%) (Auto) 3.8 % Eosinophils (%) (Auto) 1.4 % Basophils (%) (Auto) 0.2 % Neutrophils # (Auto) 11.80 K/uL (1.4-6.5) Lymphocytes # (Auto) 1.37 K/uL (1.2-3.4) Monocytes # (Auto) 0.53 K/uL (0.11-0.59) Eosinophils # (Auto) 0.19 K/uL (0-0.5) Basophils # (Auto) 0.03 K/uL (0-0.2) RDW Standard Deviation 49.9 fL (36.4-46.3) RDW Coefficient of Variation 16.7 % (11.5-14.5) Immature Granulocyte % (Auto) 0.2 % Immature Granulocyte # (Auto) 0.03 K/uL (0.00-0.02) Sodium Level 133 mmol/L (136-145) Potassium Level 4.7 mmol/L (3.5-5.1) Chloride Level 96 mmol/L (98-107) Carbon Dioxide Level 32 mmol/L (21-32) Anion Gap 5.0 mmol/L (3-11) Blood Urea Nitrogen 8 mg/dl (7-18) Creatinine 0.64 mg/dl (0.60-1.20) Est Creatinine Clear Calc Drug Dose 97.6 ml/min Estimated GFR () 116.4 Estimated GFR (Non- 100.5 BUN/Creatinine Ratio 13.2 (10-20) Random Glucose 156 mg/dl (70-99) Lactic Acid Level 1.1 mmol/L (0.4-2.0) Calcium Level 9.1 mg/dl (8.5-10.1) Total Bilirubin 0.3 mg/dl (0.2-1) Direct Bilirubin < 0.1 mg/dl (0-0.2) Aspartate Amino Transf (AST/SGOT) 13 U/L (15-37) Alanine Aminotransferase (ALT/SGPT) 18 U/L (12-78) Alkaline Phosphatase 83 U/L (45-117) Troponin I < 0.015 ng/ml (0-0.045) Pro-B-Type Natriuretic Peptide 201 pg/ml (0-900) Total Protein 8.6 gm/dl (6.4-8.2) Albumin 2.9 gm/dl (3.4-5.0) Lipase 178 U/L (73-393) Venous Blood pH 7.35 (7.36-7.41) Venous Blood Partial Pressure CO2 64 mmHg (38.0-50.0) Venous Blood Partial Pressure O2 31 mmHg Venous Blood HCO3 35 mmol/L Venous Blood Oxygen Saturation < 60.0 % Venous Blood Base Excess 7.5 mEq/L Blood Gas Sample Site R Radial Bedside Blood Gas pH (LAB) 7.37 (7.35-7.45) Bedside Blood Gas pCO2 (LAB) 51 mmHg (35-46) Bedside Blood Gas pO2 (LAB) 95 mmHg (80-95) Bedside Blood Gas HCO3 (LAB) 30 meq/L (19-24) Bedside Blood Gas Total CO2 32 mEq/l (24-31) Bedside Blood Gas Base Excess (LAB) 5.0 meq/L (-9-1.8) Bedside Blood Gas O2 Saturation 97.0 % (90-95) Gui Test Pass Oxygen Delivery Device BIPAP Bedside Oxygen Rate (breaths/min) 24 Bedside FiO2 40 % Blood Gas IPAP 12 Micro Results: 01/15 nasal swab (-) MRSA 01/15 blood x2 pending 01/15 sputum pending Recent Pertinent Medications Item Value Date Time Vancomycin HCl 275 ml @ 125 mls/hr 01/16/17 0200 1250 mg/Sodium Q12@0200,1400/IV Chloride Piperacillin Sod/ 120 ml @ 30 mls/hr 01/16/17 0000 Tazobactam Sod Q8@0000,0800,1600/IV 4.5 gm/Dextrose Levofloxacin 750 150 ml @ 100 mls/hr 01/15/17 1900 mg/Prmx DAILY@1900/IV 01/15/17 1954 Vancomycin HCl 530 ml @ 200 mls/hr 01/15/17 1606 1500 mg/Sodium ONE STAT/IV 01/15/17 1702 Chloride Piperacillin Sod/ 4.5 gm 01/15/17 1606 Tazobactam Sod NOW STAT/IV 01/15/17 1702 (Zosyn Iv) Azithromycin 500 255 ml @ 125 mls/hr 01/15/17 1330 mg/Dextrose ONE ONCE/IV 01/15/17 1442 Assessment & Plan Modified loading dose: vancomycin 1500 mg IV X 1 dose (~19 mg/kg) then: vancomycin 1250 mg IV every 12 hours. Goal peak level estimate: between 25-40 mcg/mL. Goal trough level estimate: between 15-20 mcg/mL. Trough has been ordered for: 01/17/17 before 0200 dose. Zosyn 4.5 Gm loading dose, then 4.5 Gm IV (infused over 4 hr) every 8 hr. for CrCl greater than 20 ml/min. Levaquin 750 mg IV loading dose, then 750 mg q24h for CrCl greater than 50 ml/ min. Pharmacy will continue to follow and will adjust dose/frequency as necessary. Thank you
[2017-01-16] VITALS (30 sets, daily range): BP systolic 106–154; BP diastolic 55–108; PULSE 71–126; TEMP 36.7–36.8; O2SAT 90–100
[2017-01-16] MEDS: PIPERACILL/TAZOBAC IV 4.5 GM in DEXTROSE 5% 100ML IV SCH ×3 (00:37→18:05)
[2017-01-16] MEDS: INSULIN ASPART 100 UNITS/ML 3 ML PEN SC SCH ×5 (00:38→20:44)
[2017-01-16] MEDS ORDERED: VANCOMYCIN INJ 1,250 MG in SODIUM CHLORIDE 0.9% 250ML 250 ML IV SCH (02:00)
[2017-01-16] MEDS: METHYLPREDNISOLONE IV 60 MG in SYRINGE 0 ML IV SCH ×4 (02:08→20:39)
[2017-01-16] MEDS: LEVALBUTEROL 1.25MG/0.5ML NEB INH SCH ×6 (03:19→22:57)
[2017-01-16] MEDS: IPRATROPIUM BROMIDE NEB SOLN 0.02% 2.5 ML VIAL INH SCH ×6 (03:19→22:57)
[2017-01-16] MEDS ORDERED: ACETAMINOPHEN 325 MG TAB PO PRN (03:45)
[2017-01-16] MEDS ORDERED: INSULIN ASPART 100 UNITS/ML 3 ML PEN SC SCH (04:00)
[2017-01-16] MEDS ORDERED: VANCOMYCIN 1GM/270ML NSS IV SCH (05:00)
[2017-01-16 06:35] LABS: BUN/CREATININE RATIO 14.3 (10-20); CALCIUM 8.6 mg/dl (8.5-10.1); CREATININE 0.63 mg/dl (0.60-1.20); POTASSIUM 4.4 mmol/L (3.5-5.1)
[2017-01-16 06:55] LABS: HEMATOCRIT 27.2 % (37-47); MEAN CELL VOLUME 81.7 fL (80-100); MEAN CORPUSCULAR HEMOGLOBIN 24.6 pg (25-34); MEAN CORPUSCULAR HGB CONC 30.1 g/dl (32-36); PLATELET COUNT 231 K/uL (130-400); RED BLOOD COUNT 3.33 M/uL (4.2-5.4); WHITE BLOOD COUNT 7.05 K/uL (4.8-10.8)
[2017-01-16 07:38] LABS: COMPLETE YES; IG% 0.1 %; LYMPH ABS # 0.35 K/uL (1.2-3.4); MONO % 0.9 %
[2017-01-16] MEDS: LACTOBACILLUS ACIDOPHILUS (FLORANEX) TAB PO SCH (09:04)
[2017-01-16] MEDS: METOPROLOL TARTRATE 50 MG TAB PO SCH ×2 (09:04→20:40)
[2017-01-16] MEDS: FERROUS SULFATE 325 MG TAB PO SCH (09:04)
[2017-01-16] MEDS: CYANOCOBALAMIN 500 MCG TAB (VIT B-12) PO SCH (09:04)
[2017-01-16] MEDS: MULTIVITAMIN TAB PO SCH (09:04)
[2017-01-16] MEDS: MAGNESIUM OXIDE 400 MG TAB PO SCH (09:04)
[2017-01-16] MEDS: FLUTICASONE PROPIONATE NA SPR 16 GM BTL NAE SCH (09:05)
[2017-01-16] MEDS: INSULIN GLARGINE SOLOSTAR 100 UNITS/ML 3 ML PEN SC SCH ×2 (09:12→20:45)
--- NOTE | 2017-01-16 09:38 | Progress Note ---
Medicine Progress Note Date & Time of Visit: Jan 16, 2017 at 09:31. Subjective seen sitting up in bed, Bipap mask on states her breathing has improved today, compared to admission has minimal cough, non productive denies chest pain no fever/chills tolerating bipap well no other symptoms Objective Last 8 Hrs Date Time Temp Pulse Resp B/P (MAP) Pulse Ox O2 Delivery O2 Flow Rate FiO2 01/16/17 07:04 83 19 98 BiPAP/CPAP 40 01/16/17 06:55 91 98 40 01/16/17 04:18 93 BiPAP 40 01/16/17 04:01 89 20 118/65 (82) BiPAP 40 01/16/17 03:20 91 97 40 01/16/17 03:19 73 26 97 BiPAP/CPAP 40 01/16/17 03:01 86 18 120/71 (87) BiPAP 40 01/16/17 02:01 101 23 131/108 (116) BiPAP 40 Physical Exam: General- oriented x 3, not in distress, speaks in sentences with no effort Eyes- anicteric Neck- supple, no JVD Lungs- (+) crackles bilaterally, no wheezing Heart- regular rhythm; no murmur, josh rate Abdomen- normal bowel sounds, soft, nontender Extremities- no pretibial edema, no calf tenderness Neuro- alert, oriented x 3;no gross focal deficits Skin- warm & dry Laboratory Results: Last 24 Hours Test 01/15/17 13:50 01/15/17 13:52 01/15/17 14:21 01/15/17 19:02 White Blood Count 13.95 K/uL Red Blood Count 3.86 M/uL Hemoglobin 9.7 g/dL Hematocrit 31.4 % Mean Corpuscular Volume 81.3 fL Mean Corpuscular Hemoglobin 25.1 pg Mean Corpuscular Hemoglobin Concent 30.9 g/dl Platelet Count 285 K/uL Mean Platelet Volume 9.1 fL Neutrophils (%) (Auto) 84.6 % Lymphocytes (%) (Auto) 9.8 % Monocytes (%) (Auto) 3.8 % Eosinophils (%) (Auto) 1.4 % Basophils (%) (Auto) 0.2 % Neutrophils # (Auto) 11.80 K/uL Lymphocytes # (Auto) 1.37 K/uL Monocytes # (Auto) 0.53 K/uL Eosinophils # (Auto) 0.19 K/uL Basophils # (Auto) 0.03 K/uL RDW Standard Deviation 49.9 fL RDW Coefficient of Variation 16.7 % Immature Granulocyte % (Auto) 0.2 % Immature Granulocyte # (Auto) 0.03 K/uL Sodium Level 133 mmol/L Potassium Level 4.7 mmol/L Chloride Level 96 mmol/L Carbon Dioxide Level 32 mmol/L Anion Gap 5.0 mmol/L Blood Urea Nitrogen 8 mg/dl Creatinine 0.64 mg/dl Est Creatinine Clear Calc Drug Dose 97.6 ml/min Estimated GFR () 116.4 Estimated GFR (Non- 100.5 BUN/Creatinine Ratio 13.2 Random Glucose 156 mg/dl Lactic Acid Level 1.1 mmol/L Calcium Level 9.1 mg/dl Total Bilirubin 0.3 mg/dl Direct Bilirubin < 0.1 mg/dl Aspartate Amino Transf (AST/SGOT) 13 U/L Alanine Aminotransferase (ALT/SGPT) 18 U/L Alkaline Phosphatase 83 U/L Troponin I < 0.015 ng/ml Pro-B-Type Natriuretic Peptide 201 pg/ml Total Protein 8.6 gm/dl Albumin 2.9 gm/dl Lipase 178 U/L Venous Blood pH 7.35 Venous Blood Partial Pressure CO2 64 mmHg Venous Blood Partial Pressure O2 31 mmHg Venous Blood HCO3 35 mmol/L Venous Blood Oxygen Saturation < 60.0 % Venous Blood Base Excess 7.5 mEq/L Blood Gas Sample Site R Radial Bedside Blood Gas pH (LAB) 7.37 Bedside Blood Gas pCO2 (LAB) 51 mmHg Bedside Blood Gas pO2 (LAB) 95 mmHg Bedside Blood Gas HCO3 (LAB) 30 meq/L Bedside Blood Gas Total CO2 32 mEq/l Bedside Blood Gas Base Excess (LAB) 5.0 meq/L Bedside Blood Gas O2 Saturation 97.0 % Gui Test Pass Oxygen Delivery Device BIPAP Bedside Oxygen Rate (breaths/min) 24 Bedside FiO2 40 % Blood Gas IPAP 12 Test 01/16/17 00:35 01/16/17 05:33 01/16/17 06:33 Bedside Glucose 202 mg/dl 213 mg/dl White Blood Count 7.05 K/uL Red Blood Count 3.33 M/uL Hemoglobin 8.2 g/dL Hematocrit 27.2 % Mean Corpuscular Volume 81.7 fL Mean Corpuscular Hemoglobin 24.6 pg Mean Corpuscular Hemoglobin Concent 30.1 g/dl Platelet Count 231 K/uL Mean Platelet Volume 9.0 fL Neutrophils (%) (Auto) 94.0 % Lymphocytes (%) (Auto) 5.0 % Monocytes (%) (Auto) 0.9 % Eosinophils (%) (Auto) 0.0 % Basophils (%) (Auto) 0.0 % Neutrophils # (Auto) 6.63 K/uL Lymphocytes # (Auto) 0.35 K/uL Monocytes # (Auto) 0.06 K/uL Eosinophils # (Auto) 0.00 K/uL Basophils # (Auto) 0.00 K/uL RDW Standard Deviation 50.1 fL RDW Coefficient of Variation 16.6 % Immature Granulocyte % (Auto) 0.1 % Immature Granulocyte # (Auto) 0.01 K/uL Red Blood Cell Morphology Unremarkable Sodium Level 136 mmol/L Potassium Level 4.4 mmol/L Chloride Level 99 mmol/L Carbon Dioxide Level 31 mmol/L Anion Gap 6.0 mmol/L Blood Urea Nitrogen 9 mg/dl Creatinine 0.63 mg/dl Est Creatinine Clear Calc Drug Dose 98.9 ml/min Estimated GFR () 117.0 Estimated GFR (Non- 101.0 BUN/Creatinine Ratio 14.3 Random Glucose 226 mg/dl Calcium Level 8.6 mg/dl Date/Time Source Procedure Growth Status 01/15/17 14:21 Blood Blood Culture Pending Received 01/15/17 13:50 Blood Blood Culture Pending Received 01/15/17 17:55 Nasal MRSA DNA Surveillance Screen - Final Specimen Negative for MRSA by DNA Probe Complete 01/15/17 20:15 Sputum Expectorated Sputum Gram Stain - Final Resulted 01/15/17 20:15 Sputum Expectorated Sputum Sputum Culture Pending Resulted Assessment & Plan 56 year old female with history of Bronchiectasis, Chronic Respiratory Failure, DM, Immunedeficiency/Hypogammaglobulinemia presenting with shortness of breath and cough since yesterday. BRONCHIECTASIS EXACERBATION - possible pneumonia? - afebrile, no leukocytosis - cultures: pending nasal MRSA negative - Day 2 Zosyn, Levaquin Nebs IV solumedrol 60mg q6h - continue Bipap - ICU monitoring consulted Pulmonary - appreciate Territory Sales Manager Medical and Pulmonary SVC input DM - ISS - pharmacy consulted as patient will be on high dose steroids HYPOGAMMAGLOBULINEMIA - receives monthly injection, last dose last Tue - on chronic hydrocortisone--> will be on IV solumedrol DVT proph Heparin SCDs Full code Dispo pending Current Inpatient Medications: Current Inpatient Medications Medications (Trade) Dose Ordered Sig/Man Route Start Time Stop Time Status Last Admin Dose Admin Methylprednisolone Sodium Succinate 60 mg/Syringe 0.96 ml @ 1.5 mls/min Q6H IV 01/15/17 20:00 02/14/17 19:59 01/16/17 09:05 1.5 MLS/MIN Insulin Aspart (novoLOG ASPART) SLIDING SCALE If C... Q6 SC 01/16/17 00:00 02/15/17 00:00 01/16/17 06:43 2 UNITS Glucose (Glucose 40% Gel) 15-30 GRAMS 15 GRAMS... UD PRN PO 01/15/17 17:15 02/14/17 17:14 Glucose (Glucose Chew Tab) 4-8 Tablets 4 Tabl... UD PRN PO 01/15/17 17:15 02/14/17 17:14 Dextrose (Dextrose 50% 50ML Syringe) 25-50ML OF 50% DW IV FOR... UD PRN IV 01/15/17 17:15 02/14/17 17:14 Glucagon (Glucagon Inj) 1 mg UD PRN SQ 01/15/17 17:15 02/14/17 17:14 Miscellaneous Information (Consult Glycemic Management Pharmacy) 1 ea UD N/A 01/15/17 17:47 02/14/17 17:46 Pantoprazole Sodium 40 mg/ Syringe 10 ml @ 5 mls/min DAILY IV 01/16/17 09:00 02/15/17 08:59 Levofloxacin (Consult) 1 ea UD PRN N/A 01/15/17 18:30 02/14/17 18:29 Piperacillin Sod/ Tazobactam Sod (Consult) 1 ea UD PRN N/A 01/15/17 18:30 02/14/17 18:29 Levofloxacin 750 mg/Prmx 150 ml @ 100 mls/hr DAILY@1900 IV 01/15/17 19:00 01/22/17 18:59 01/15/17 19:54 100 MLS/HR Piperacillin Sod/ Tazobactam Sod 4.5 gm/Dextrose 120 ml @ 30 mls/hr Q8@0000,0800,1600 IV 01/16/17 00:00 01/23/17 00:00 01/16/17 09:03 30 MLS/HR Ipratropium [place] (Atrovent 0.02% 0.5MG/2.5ML Neb) 0.5 mg Q4R INH 01/15/17 20:00 02/14/17 19:59 01/16/17 06:53 0.5 MG Levalbuterol (Xopenex 1.25MG/ 0.5ML Neb) 1.25 mg Q4R INH 01/15/17 20:00 02/14/17 19:59 01/16/17 06:53 1.25 MG Ferrous Sulfate (Feosol Tab) 325 mg DAILY PO 01/16/17 09:00 02/15/17 08:59 01/16/17 09:04 325 MG Fluticasone Propionate (Flonase Nasal [place]) 2 sprays QAM ESPERANZA 01/16/17 09:00 02/15/17 08:59 01/16/17 09:05 2 SPRAYS Folic Acid (Folvite Tab) 1 mg QAM PO 01/16/17 09:00 02/15/17 08:59 01/16/17 09:04 1 MG Metoprolol Tartrate (Lopressor Tab) 50 mg BID PO 01/16/17 09:00 02/15/17 08:59 01/16/17 09:04 50 MG Multivitamins (Multivitamin Tab) 1 tab QAM PO 01/16/17 09:00 02/15/17 08:59 01/16/17 09:04 1 TAB Cyanocobalamin (Vitamin B-12 Tab) 1,000 mcg DAILY PO 01/16/17 09:00 02/15/17 08:59 01/16/17 09:04 1,000 MCG Magnesium Oxide (Mag-Ox Tab) 400 mg DAILY PO 01/16/17 09:00 02/15/17 08:59 01/16/17 09:04 400 MG Lactobacillus Acidophilus (Floranex Tab) 1 tab DAILY PO 01/16/17 09:00 02/15/17 08:59 01/16/17 09:04 1 TAB Heparin Sodium (Porcine) (Heparin 100 Unit/ml 5ml Flush) 5 ml PRN PRN IV 01/15/17 23:45 02/14/17 23:44 Acetaminophen (Tylenol Tab) 650 mg Q6H PRN PO 01/16/17 03:45 02/15/17 03:44 Insulin Glargine (Lantus Solostar Pen) BID SC 01/16/17 09:00 02/15/17 08:59 01/16/17 09:12 11 UNITS
--- NOTE | 2017-01-16 09:44 | PULMONARY CONSULTATION ---
DATE OF CONSULTATION: 01/16/2017 TIME: 08:05 a.m. REPORT OF CONSULTATION: The patient was seen in room 104 in the intensive care unit. She is a 56-year-old female, who has a history of bronchiectasis since childhood. She was bothered only modestly for much of her lifetime. In 2008, she started to have more problems. She was fairly good, however, until about 2013. Since that time, she has had progressive symptoms with more frequent hospitalizations. Within the past 12 months, this is now her 6th hospital stay. She was most recently hospitalized from November 30 until December 04. Her symptoms at the time of this admission are increasing shortness of breath. She noticed some nausea and chest tightness on January 14. Her shortness of breath became much worse yesterday, January. It became progressive despite her treatments. She does have a Trilogy machine at home. She was wearing that during the day yesterday until she finally felt she needed to come to the hospital. She did not have any documented fevers. She used to get fevers, but she states she seldom gets a fever anymore. She does have a history of hypogammaglobulinemia and she does get IVIG treatment monthly. The patient has had numerous bronchoscopies. In fact, she was scheduled for an outpatient bronchoscopy for January [address] Villalta. She does notice some improvement in her chest congestion after the scopes, although the effects are relatively transient. She was very tight when she presented yesterday to the Emergency Room. She is feeling significantly better. She did have some clamminess yesterday and sweatiness, but that has resolved. The patient has a pulse oximeter at home. She wears her oxygen continuously at about 3 liters. She will adjust to try to keep her saturations above 96%. Her appetite was not affected too much by this current exacerbation. She has a history of daily cough and moderate to large quantities of sputum on a regular basis. Her mucus turned a little bit of yellow yesterday, but not terribly dark. She typically brings up perhaps a third of a cup of sputum per day. She has been on hypertonic saline in her nebulizer. She feels that that bothers her breathing. She only does that about once per day. She also had thought that albuterol bothered her breathing. In here, she is getting levalbuterol and ipratropium and seems to be doing fine with that. PAST SURGICAL HISTORY: 1. ASD repair at age 26. 2. Hysterectomy. 3. Myringotomy. 4. Appendectomy. 5. Cholecystectomy. 6. . 7. Sinus surgery. 8. T&A. 9. Right humeral head replacement. PAST MEDICAL HISTORY: 1. Chronic respiratory failure. 2. Bronchiectasis. 3. History of MAURICIO infection. 4. Hypogammaglobulinemia. 5. Anemia. 6. Diabetes. 7. Osteoporosis. 8. Reflux. 9. History of C. diff. SOCIAL HISTORY: Tobacco, never. ETOH -- None. The patient does live alone. She stays on her 1st floor because it is very difficult to do steps. FAMILY HISTORY: Mother age 69, ovarian cancer. Father age 69, lymphoma. He also had heart disease and diabetes. ALLERGIES: No definite allergies. SHE IS LISTED AN ALLERGY TO ALBUTEROL, but she takes albuterol. MEDICATIONS AT HOME: 1. Albuterol by nebulizer. 2. Alendronate 70 mg weekly. 3. Baby aspirin 1 daily. 4. Calcium D tablets. 5. Vitamin B12. 6. Guaifenesin DM. 7. Ferrous sulfate. 8. Fluticasone nasal spray. 9. Folic acid 1 mg daily. 10. Hydrocortisone 15 mg daily. 11. Novolin N 10 units in the morning. 12. Magnesium oxide 400 mg daily. 13. Metoprolol 50 mg b.i.d. 14. Pantoprazole 40 mg daily. 15. Probiotic daily. REVIEW OF SYSTEMS: The patient's energy level is relatively low. She does not get out of the house all that much. She no longer drives. She does complain of chronic nasal congestion. Her mucus is not discolored, however. Her appetite is fair. She denies bowel complaints. Denies urinary incontinence. She is short of breath with minimal exertion as noted. Chronic cough as noted. She has complications related to osteoporosis with joint pains especially in the hip areas. Remainder of review of systems is negative. PHYSICAL EXAMINATION: GENERAL: The patient is a 56-year-old female, who was cooperative, alert and oriented. She appeared comfortable at rest. VITAL SIGNS: Her weight is 76.6 kilograms with a BMI of 29.9. She has been afebrile since admission. Heart rate was 110 per minute. The rhythm was regular. Blood pressure is 118/65. HEENT: Pupils were reactive to light. She has a disconjugate gaze. The right eye deviates laterally. She states this has been since childhood. Nasal cannula is in place. Mouth exam was unremarkable. NECK: Palpation of the neck reveals no lymph nodes. CHEST: She has a port in the right upper anterior chest. Examination of the chest reveals a kyphosis. The respiratory rate is 20 breaths per minute. It was not labored. She is on nasal cannula. Diffuse crackles are heard throughout both lung davalos anteriorly and posteriorly. ABDOMEN: Soft. Bowel sounds were active. There was no tenderness to palpation, masses or organomegaly. EXTREMITIES: Showed very strong peripheral pulses. There was no cyanosis, clubbing or edema. Chest x-ray done yesterday showed diffuse reticular nodular changes throughout. There was a prior median sternotomy. There is a port in place as noted. The x-ray did not look acutely changed from prior. LABORATORY DATA: White count on admission was 13.95. Today, it is 7.05. Hemoglobin yesterday 9.7 and today is 8.2. Platelets on admission 285,000. Her neutrophil percent today is 94. Blood gas yesterday showed a pH of 7.37 with a pCO2 of 51 and a pO2 of 95. This was done on BiPAP with 40% oxygen. Electrolytes today show sodium 136, potassium 4.4, chloride 99, and bicarbonate 31. BUN is 9 with a creatinine of 0.63. The nasal smear for MRSA was negative. Sputum was obtained for Gram stain and culture and the results are pending. IMPRESSIONS: 1. Respiratory failure, acute on chronic with hypoxia and hypercarbia. 2. Bronchiectasis with exacerbation. 3. Chronic hypogammaglobulinemia. 4. Prior history of Mycobacterium avium intracellulare infection. COMMENTS AND RECOMMENDATIONS: The patient seems to be much improved compared to what she was yesterday. From an antibiotic perspective, she is currently on vancomycin, Zosyn, and levofloxacin. I do not believe she has any prior history of MRSA infection. Her nasal swab was negative. I believe the vancomycin could be stopped. I would be in favor of continuing the other 2 for now until her cultures are done. She is on methylprednisolone 60 mg IV q. 6 hours. In light of her history of diabetes, I would make an effort to decrease the steroids rapidly particularly in light of her significant improvement. She seems to be doing well with levalbuterol and ipratropium. I do not know if she was ever given this at home. She has not had any problems with the levalbuterol as best as I can tell, although she has been here less than 24 hours. I am anticipating that Dr. Villalta will want to scope her during this hospital stay. She was already setup for a scope for the following week. I will communicate with him tomorrow to see what his plans would be in that regard. Dr. Miner will be rounding for pulmonary this week, however. Thank you very much for asking me to assist in her care. ASHLEE
[2017-01-16] MEDS: PANTOprazole INJ 40 MG in SYRINGE 0 ML IV SCH (11:21)
--- NOTE | 2017-01-16 11:41 | Critical Care Progress Note ---
Critical Care Progress Note Date of Service Jan 16, 2017. Attending Dr. Edna Lombardo I personally examined this patient, reviewed her clinical and laboratory data, interpreted heart chest x-ray formally and further plan of care. In summary, the patient is a 56-year-old female with history of hyperglobulinemia on monthly IVIG injections (the last one 4 days ago), frequent upper respiratory infections, colonized with stenotrophomonas was admitted yesterday with worsening shortness of breath, increased sputum production, change in color. Patient spent the night on and off BiPAP. She already feels somewhat better. Appetite is good. She denies having any chest pain, chest tightness, nausea, vomiting diarrhea or chills. Objective Patient is middle age female who looks somewhat older than her stated age, comfortable sitting in the bed off BiPAP. Head was at traumatic normocephalic, pupils were equal round reactive to light, right eye lateral deviation since childhood. Mouth mucosa is moist, no rash. Neck was supple, no JVD, no carotid bruit, no lymphadenopathy. Chest auscultation revealed somewhat improved air movement bilaterally, bilateral scattered rhonchi, minimal wheezing. Heart was beating regularly, normal S1, S2, no S3. Abdomen is soft,, no hepatosplenomegaly, no palpable masses, bowel sounds are present. Lower extremity with the good peripheral pulses, no calf tenderness, good capillary refill. No swelling. Neurology: Alert and oriented 3. No focal deficits. Psychiatry: Appropriate affect. Assessment & Plan 1. Acute respiratory failure secondary to COPD exacerbation in the setting of hypogammaglobulinemia and bronchiectasis. Improving work of breathing. Still requires intermittent BiPAP for work of breathing. 2. COPD, bronchiectasis in the setting of hypoglobulinemia. Chest x-ray revealed diffuse reticular nodular pattern. There is worsening leukocytosis above the baseline, no fever, increased sputum production and change in color. There is no obvious pneumonia, though it would be reasonable to treat patient with short course of antibiotics. We will continue with Zosyn and levofloxacin while awaiting for cultures. History of stenotrophomonas colonization. We will continue with IV steroids for COPD exacerbation. We'll continue with DuoNeb's. Vancomycin was discontinued as MRSA swab was negative, no history of MRSA. 3. Hemodynamics are acceptable. No signs of cardiac ischemia. 4. Renal function is adequate. We will monitor electrolytes and urine output. 5. Neurologically no deficits. 6. GI: Improvement of nausea, patient was able to tolerate lunch well. 7. Diabetes mellitus. Hyperglycemia on insulin sliding scale. 8. Heparin for DVT prophylaxis. 9. [place]. [id number] note. [place] II Score Date Score Was Generated: Jan 16, 2017 Consults & Procedures Consultants: Pulmonary Critical care medicine Procedures: None. Data Medications: Current Inpatient Medications Medications (Trade) Dose Ordered Sig/Man Route Start Time Stop Time Status Last Admin Dose Admin Methylprednisolone Sodium Succinate 60 mg/Syringe 0.96 ml @ 1.5 mls/min Q6H IV 01/15/17 20:00 02/14/17 19:59 01/16/17 09:05 1.5 MLS/MIN Insulin Aspart (novoLOG ASPART) SLIDING SCALE If C... Q6 SC 01/16/17 00:00 02/15/17 00:00 01/16/17 06:43 2 UNITS Glucose (Glucose 40% Gel) 15-30 GRAMS 15 GRAMS... UD PRN PO 01/15/17 17:15 02/14/17 17:14 Glucose (Glucose Chew Tab) 4-8 Tablets 4 Tabl... UD PRN PO 01/15/17 17:15 02/14/17 17:14 Dextrose (Dextrose 50% 50ML Syringe) 25-50ML OF 50% DW IV FOR... UD PRN IV 01/15/17 17:15 02/14/17 17:14 Glucagon (Glucagon Inj) 1 mg UD PRN SQ 01/15/17 17:15 02/14/17 17:14 Miscellaneous Information (Consult Glycemic Management Pharmacy) 1 ea UD N/A 01/15/17 17:47 02/14/17 17:46 Pantoprazole Sodium 40 mg/ Syringe 10 ml @ 5 mls/min DAILY IV 01/16/17 09:00 02/15/17 08:59 Levofloxacin (Consult) 1 ea UD PRN N/A 01/15/17 18:30 02/14/17 18:29 Piperacillin Sod/ Tazobactam Sod (Consult) 1 ea UD PRN N/A 01/15/17 18:30 02/14/17 18:29 Levofloxacin 750 mg/Prmx 150 ml @ 100 mls/hr DAILY@1900 IV 01/15/17 19:00 01/22/17 18:59 01/15/17 19:54 100 MLS/HR Piperacillin Sod/ Tazobactam Sod 4.5 gm/Dextrose 120 ml @ 30 mls/hr Q8@0000,0800,1600 IV 01/16/17 00:00 01/23/17 00:00 01/16/17 09:03 30 MLS/HR Ipratropium [place] (Atrovent 0.02% 0.5MG/2.5ML Neb) 0.5 mg Q4R INH 01/15/17 20:00 02/14/17 19:59 01/16/17 06:53 0.5 MG Levalbuterol (Xopenex 1.25MG/ 0.5ML Neb) 1.25 mg Q4R INH 01/15/17 20:00 02/14/17 19:59 01/16/17 06:53 1.25 MG Ferrous Sulfate (Feosol Tab) 325 mg DAILY PO 01/16/17 09:00 02/15/17 08:59 01/16/17 09:04 325 MG Fluticasone Propionate (Flonase Nasal [place]) 2 sprays QAM ESPERANZA 01/16/17 09:00 02/15/17 08:59 01/16/17 09:05 2 SPRAYS Folic Acid (Folvite Tab) 1 mg QAM PO 01/16/17 09:00 02/15/17 08:59 01/16/17 09:04 1 MG Metoprolol Tartrate (Lopressor Tab) 50 mg BID PO 01/16/17 09:00 02/15/17 08:59 01/16/17 09:04 50 MG Multivitamins (Multivitamin Tab) 1 tab QAM PO 01/16/17 09:00 02/15/17 08:59 01/16/17 09:04 1 TAB Cyanocobalamin (Vitamin B-12 Tab) 1,000 mcg DAILY PO 01/16/17 09:00 02/15/17 08:59 01/16/17 09:04 1,000 MCG Magnesium Oxide (Mag-Ox Tab) 400 mg DAILY PO 01/16/17 09:00 02/15/17 08:59 01/16/17 09:04 400 MG Lactobacillus Acidophilus (Floranex Tab) 1 tab DAILY PO 01/16/17 09:00 02/15/17 08:59 01/16/17 09:04 1 TAB Heparin Sodium (Porcine) (Heparin 100 Unit/ml 5ml Flush) 5 ml PRN PRN IV 01/15/17 23:45 02/14/17 23:44 Acetaminophen (Tylenol Tab) 650 mg Q6H PRN PO 01/16/17 03:45 02/15/17 03:44 Insulin Glargine (Lantus Solostar Pen) BID SC 01/16/17 09:00 02/15/17 08:59 01/16/17 09:12 11 UNITS Heparin Sodium (Porcine) (Heparin Sq 5000 Unit/0.5ml) 5,000 unit Q8 SQ 01/16/17 14:00 02/15/17 13:59 Vital Signs: Date Time Temp Pulse Resp B/P (MAP) Pulse Ox O2 Delivery O2 Flow Rate FiO2 01/16/17 07:04 83 19 98 BiPAP/CPAP 40 01/16/17 06:55 91 98 40 01/16/17 04:18 93 BiPAP 40 01/16/17 04:01 89 20 118/65 (82) BiPAP 40 01/16/17 03:20 91 97 40 01/16/17 03:19 73 26 97 BiPAP/CPAP 40 01/16/17 03:01 86 18 120/71 (87) BiPAP 40 01/16/17 02:01 101 23 131/108 (116) BiPAP 40 01/16/17 01:14 107 98 40 01/16/17 01:01 96 20 106/61 (76) 95 BiPAP 40 01/16/17 00:09 93 BiPAP 40 01/16/17 00:01 36.8 97 21 113/55 (74) 96 BiPAP 40 01/15/17 23:42 99 26 98 BiPAP/CPAP 40 01/15/17 23:01 93 19 128/70 (89) 96 BiPAP 40 01/15/17 22:52 100 97 40 01/15/17 22:01 106 21 135/84 (101) 97 BiPAP 40 01/15/17 21:01 36.8 108 21 126/80 (95) 96 BiPAP 40 01/15/17 20:18 93 BiPAP 40 01/15/17 20:01 36.8 105 18 126/78 (94) 96 BiPAP 40 01/15/17 19:13 94 20 93 BiPAP/CPAP 40 01/15/17 19:01 36.8 104 19 120/78 (92) 96 BiPAP 40 01/15/17 18:06 96 BiPAP 01/15/17 18:01 110 22 141/88 (105) 96 BiPAP 40 01/15/17 17:43 100 27 132/77 96 01/15/17 17:08 107 27 95 BiPAP 40 01/15/17 17:05 108 95 40 01/15/17 16:54 Nasal Cannula 6.0 01/15/17 16:47 109 20 112/68 93 Nasal Cannula 6.0 01/15/17 14:45 95 18 121/74 95 Nebulizer 01/15/17 14:16 94 17 93 Nasal Cannula 4.0 01/15/17 14:04 99 01/15/17 13:35 93 Nasal Cannula 01/15/17 13:24 92 Nasal Cannula 01/15/17 13:01 37.0 99 24 136/81 91 Nasal Cannula 4.0 01/15/17 13:00 91 Nasal Cannula 4.0 Laboratory Results: Last 24 Hours Test 01/15/17 13:50 01/15/17 13:52 01/15/17 14:21 01/15/17 19:02 White Blood Count 13.95 K/uL Red Blood Count 3.86 M/uL Hemoglobin 9.7 g/dL Hematocrit 31.4 % Mean Corpuscular Volume 81.3 fL Mean Corpuscular Hemoglobin 25.1 pg Mean Corpuscular Hemoglobin Concent 30.9 g/dl Platelet Count 285 K/uL Mean Platelet Volume 9.1 fL Neutrophils (%) (Auto) 84.6 % Lymphocytes (%) (Auto) 9.8 % Monocytes (%) (Auto) 3.8 % Eosinophils (%) (Auto) 1.4 % Basophils (%) (Auto) 0.2 % Neutrophils # (Auto) 11.80 K/uL Lymphocytes # (Auto) 1.37 K/uL Monocytes # (Auto) 0.53 K/uL Eosinophils # (Auto) 0.19 K/uL Basophils # (Auto) 0.03 K/uL RDW Standard Deviation 49.9 fL RDW Coefficient of Variation 16.7 % Immature Granulocyte % (Auto) 0.2 % Immature Granulocyte # (Auto) 0.03 K/uL Sodium Level 133 mmol/L Potassium Level 4.7 mmol/L Chloride Level 96 mmol/L Carbon Dioxide Level 32 mmol/L Anion Gap 5.0 mmol/L Blood Urea Nitrogen 8 mg/dl Creatinine 0.64 mg/dl Est Creatinine Clear Calc Drug Dose 97.6 ml/min Estimated GFR () 116.4 Estimated GFR (Non- 100.5 BUN/Creatinine Ratio 13.2 Random Glucose 156 mg/dl Lactic Acid Level 1.1 mmol/L Calcium Level 9.1 mg/dl Total Bilirubin 0.3 mg/dl Direct Bilirubin < 0.1 mg/dl Aspartate Amino Transf (AST/SGOT) 13 U/L Alanine Aminotransferase (ALT/SGPT) 18 U/L Alkaline Phosphatase 83 U/L Troponin I < 0.015 ng/ml Pro-B-Type Natriuretic Peptide 201 pg/ml Total Protein 8.6 gm/dl Albumin 2.9 gm/dl Lipase 178 U/L Venous Blood pH 7.35 Venous Blood Partial Pressure CO2 64 mmHg Venous Blood Partial Pressure O2 31 mmHg Venous Blood HCO3 35 mmol/L Venous Blood Oxygen Saturation < 60.0 % Venous Blood Base Excess 7.5 mEq/L Blood Gas Sample Site R Radial Bedside Blood Gas pH (LAB) 7.37 Bedside Blood Gas pCO2 (LAB) 51 mmHg Bedside Blood Gas pO2 (LAB) 95 mmHg Bedside Blood Gas HCO3 (LAB) 30 meq/L Bedside Blood Gas Total CO2 32 mEq/l Bedside Blood Gas Base Excess (LAB) 5.0 meq/L Bedside Blood Gas O2 Saturation 97.0 % Gui Test Pass Oxygen Delivery Device BIPAP Bedside Oxygen Rate (breaths/min) 24 Bedside FiO2 40 % Blood Gas IPAP 12 Test 01/16/17 00:35 01/16/17 05:33 01/16/17 06:33 Bedside Glucose 202 mg/dl 213 mg/dl White Blood Count 7.05 K/uL Red Blood Count 3.33 M/uL Hemoglobin 8.2 g/dL Hematocrit 27.2 % Mean Corpuscular Volume 81.7 fL Mean Corpuscular Hemoglobin 24.6 pg Mean Corpuscular Hemoglobin Concent 30.1 g/dl Platelet Count 231 K/uL Mean Platelet Volume 9.0 fL Neutrophils (%) (Auto) 94.0 % Lymphocytes (%) (Auto) 5.0 % Monocytes (%) (Auto) 0.9 % Eosinophils (%) (Auto) 0.0 % Basophils (%) (Auto) 0.0 % Neutrophils # (Auto) 6.63 K/uL Lymphocytes # (Auto) 0.35 K/uL Monocytes # (Auto) 0.06 K/uL Eosinophils # (Auto) 0.00 K/uL Basophils # (Auto) 0.00 K/uL RDW Standard Deviation 50.1 fL RDW Coefficient of Variation 16.6 % Immature Granulocyte % (Auto) 0.1 % Immature Granulocyte # (Auto) 0.01 K/uL Red Blood Cell Morphology Unremarkable Sodium Level 136 mmol/L Potassium Level 4.4 mmol/L Chloride Level 99 mmol/L Carbon Dioxide Level 31 mmol/L Anion Gap 6.0 mmol/L Blood Urea Nitrogen 9 mg/dl Creatinine 0.63 mg/dl Est Creatinine Clear Calc Drug Dose 98.9 ml/min Estimated GFR () 117.0 Estimated GFR (Non- 101.0 BUN/Creatinine Ratio 14.3 Random Glucose 226 mg/dl Calcium Level 8.6 mg/dl
--- NOTE | 2017-01-16 13:05 | Pharmacy Progress Note ---
Glycemic Control Progress Note Date of Service Jan 16, 2017. Scope Glycemic Pharmacist consulted for glycemic control to write orders per [facility] inpatient glycemic control protocol. Objective Accuchecks BSG (last 24hrs): Test 01/15/17 13:52 01/16/17 00:35 01/16/17 05:33 01/16/17 06:33 Random Glucose 156 mg/dl (70-99) 226 mg/dl (70-99) Bedside Glucose 202 mg/dl (70-90) 213 mg/dl (70-90) Test 01/16/17 11:09 Bedside Glucose 273 mg/dl (70-90) HbA1c: Test 01/16/17 05:33 Recent Pertinent Medications The patient is currently receiving: * Basal insulin: Lantus 20 units every 24 hours * Correctional Insulin: Novolog Correction per scale ACHS Goal Range: Low 140 mg/dL - High 180 mg/dL Correction Factor: 20 mg/dL/unit * Prandial insulin: Per carb ratio of 1 unit per 7 grams CHO consumed Outpatient Anti-Diabetic Meds NPH 10 units daily with Hydrocortisone/prednisone Assessment & Plan ASSESSMENT: * See progress note from 01/15/17 for more background info, in short: * Pt receiving SQ basal bolus insulin regimen for hyperglycemia secondary to baseline DM (outpatient regimen on hold),stress/infection, and IV steroids * A1c pending * Changes needed to insulin regimen: * AM Fasting BSG = 226 mg/dl. This is in above goal range for patient based on inpatient targets and co-morbidities. Therefore Basal insulin needs increased. Will increase to Q12H with dose based on BSG * Post-prandial BSGs are elevated and BSGs rise throughout the day therefore need to tighten CF/CR * Will add accuchecks overnight while on ATC high dose IV Steroids * Additional notes / comments: * Will place orders with evening shift pharmacist for BSGs >250mg/dl PLAN FOR INPATIENT GLYCEMIC CONTROL: * INCREASE Basal insulin * Lantus SQ BID * BSG < 110mg/dl - 0 units * BSG 110-180mg/dl - 10 units * BSG > 180mg/dl - 20 units * Bolus insulin * NovoLog per scale ACHS or Q6hrs while NPO and overnight at 0000 and 0400 while on ATC IV steroids * Goal Range: Low 140 mg/dL - High 180 mg/dL * TIGHTEN: Correction Factor: 12 mg/dL/unit * TIGHTEN: Nutritional / Prandial insulin per carb ratio of 1 unit per 4 grams CHO consumed * For 1600 BSG > 250mg/dl * TIGHTEN: Correction Factor to 10 mg/dL/unit * TIGHTEN: Nutritional / Prandial insulin per carb ratio of 1 unit per 3 grams CHO consumed * For 1600 BSG > 300mg/dl * Tighten CF and CR as ordered above AND * 5 units IV Regular insulin x 1 * Please note that the plan above was derived based on current level of insulin resistance and hospital stress. These recommendations are appropriate for inpatient admission only. Plan of care upon discharge will need to be reassessed to avoid potential outpatient hypo/hyperglycemia. Thank you.
[2017-01-16] MEDS: HEPARIN SOD 5000 UNIT/0.5 ML CARP SQ SCH ×2 (13:36→20:46)
[2017-01-16] MEDS ORDERED: LEVOFLOXACIN 750MG / D5W IV SCH (19:00)
[2017-01-16] MEDS: LEVOFLOXACIN 750MG / D5W IV SCH (19:47)
[2017-01-17] VITALS (20 sets, daily range): BP systolic 115–160; BP diastolic 66–84; PULSE 72–115; TEMP 36.3–36.8; O2SAT 92–100
[2017-01-17] MEDS: PIPERACILL/TAZOBAC IV 4.5 GM in DEXTROSE 5% 100ML IV SCH ×3 (00:31→16:28)
[2017-01-17] MEDS ORDERED: VANCOMYCIN TROUGH SCH (01:30)
[2017-01-17] MEDS: METHYLPREDNISOLONE IV 60 MG in SYRINGE 0 ML IV SCH ×2 (02:04→08:52)
[2017-01-17] MEDS: LEVALBUTEROL 1.25MG/0.5ML NEB INH SCH ×6 (03:30→22:59)
[2017-01-17] MEDS: IPRATROPIUM BROMIDE NEB SOLN 0.02% 2.5 ML VIAL INH SCH ×6 (03:30→22:59)
[2017-01-17] MEDS: INSULIN ASPART 100 UNITS/ML 3 ML PEN SC SCH ×6 (04:00→21:18)
[2017-01-17 06:07] LABS: HEMATOCRIT 28.6 % (37-47); IG% 0.4 %; LYMPH % 3.3 %; MEAN CELL VOLUME 82.9 fL (80-100); MEAN CORPUSCULAR HEMOGLOBIN 24.9 pg (25-34); MEAN CORPUSCULAR HGB CONC 30.1 g/dl (32-36); MEAN PLATELET VOLUME 9.1 fL (7.4-10.4); MONO % 1.3 %; PLATELET COUNT 278 K/uL (130-400); RED BLOOD COUNT 3.45 M/uL (4.2-5.4); WHITE BLOOD COUNT 12.05 K/uL (4.8-10.8)
[2017-01-17] MEDS: HEPARIN SOD 5000 UNIT/0.5 ML CARP SQ SCH ×3 (06:34→21:18)
[2017-01-17 06:41] LABS: BUN/CREATININE RATIO 21.7 (10-20); CALCIUM 8.7 mg/dl (8.5-10.1); CREATININE 0.7 mg/dl (0.60-1.20); POTASSIUM 4.5 mmol/L (3.5-5.1)
[2017-01-17 06:52] LABS: COMPLETE YES; POLYCHROMASIA 1+
[2017-01-17] MEDS: MAGNESIUM OXIDE 400 MG TAB PO SCH (08:47)
[2017-01-17] MEDS: MULTIVITAMIN TAB PO SCH (08:47)
[2017-01-17] MEDS: LACTOBACILLUS ACIDOPHILUS (FLORANEX) TAB PO SCH (08:48)
[2017-01-17] MEDS: FERROUS SULFATE 325 MG TAB PO SCH (08:48)
[2017-01-17] MEDS: CYANOCOBALAMIN 500 MCG TAB (VIT B-12) PO SCH (08:48)
[2017-01-17] MEDS: METOPROLOL TARTRATE 50 MG TAB PO SCH ×2 (08:48→21:06)
[2017-01-17] MEDS: PANTOprazole INJ 40 MG in SYRINGE 0 ML IV SCH (08:48)
[2017-01-17] MEDS: FLUTICASONE PROPIONATE NA SPR 16 GM BTL NAE SCH (08:48)
[2017-01-17] MEDS: INSULIN GLARGINE SOLOSTAR 100 UNITS/ML 3 ML PEN SC SCH ×2 (08:51→21:17)
--- NOTE | 2017-01-17 10:25 | Pulmonology Progress Note ---
Pulmonary Progress Note Date of Service Jan 17, 2017. Attending Dr. Miner Subjective Patient seen and examined this morning. She states that she had a rough morning, but is feeling better now. She felt chest tightness with intermittent wheezing.Also had less productive cough. 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 FIO2 increased to 5L. She was on BIPAP 12/5, FIO2 40% overnight and tolerated well. She denies any chest pain. Objective VS reviewed. MAXIMUM TEMPERATURE 36.4, blood pressure 96/57, pulse 57-78, respiratory rate 16-20, pulse oximetry 93-99% on 5 L nasal cannula. At the time of my evaluation she had been titrated down to 2 L nasal cannula. Her cumulative balance is about 400 and mouth negative. Gen: AAOx3, NAD, speaking in full sentences without use of respiratory muscles CVS: S1, S2, RRR Lungs: fine crackles bilaterally, no wheezing heard today. Chest wall: right tunneled catheter in place Abd: soft/NT/ND/BS+ Ext: no edema bilaterally, no cyanosis, no clubbing Labs reviewed. WBC 10-->12--> 9.67, Hgb 8.6-->9.1, Plt 278 CO2 36 ABG 01/15/2017-- 7.37/51/95/30/97% Sputum Cx 01/15/2017--sputum culture--prelim gram negative bacilli Blood Cx 01/15/2017--blood culture--no growth to date Imaging viewed and reviewed by me Medications reviewed. Zosyn 4.5g q8H, Levoquin 750 mg daily, Solumedrol 40 mg every 24 hours, Ipratropium and Atrovent q4h Assessment & Plan Acute on chronic hypoxic hypercapnic respiratory failure Bronchiectasis exacerbation Chronic Hypogammaglobinemia History of MAURICIO infection Patient appears to be clinically improving daily. She is less short of breath. Able to ambulate with less dyspnea. She is currently growing gram negative bacilli from sputum culture. Official speciation is pending . Therefore I would continue with broad spectrum antibiotics of Levaquin and Zosyn until bacteria is speciated. Patient is less tight today. She has minimal wheezing. Titrate Solu-Medrol today. Probably can switch over to prednisone 40 mg taper tomorrow. Her oxygen requirements are decreasing and she is currently on 3 L nasal cannula at rest. Her baseline oxygen in 2L NC at rest that is increased to 4- 5L. Continue to maintain SaO2 between 88-92%. Continue with BIPAP at night, when necessary Continue with Xopenx and Ipratropium nebulizers. Patient will most likely have bronchoscopy as an outpatient. In the meantime, continue with aggressive pulmonary toilet with chest PT and flutter valve and nebulized saline. I'll sign off case today. Please contact me if you've any further questions or concerns. Data Medications: Current Inpatient Medications Medications (Trade) Dose Ordered Sig/Man Route Start Time Stop Time Status Last Admin Dose Admin Methylprednisolone Sodium Succinate 60 mg/Syringe 0.96 ml @ 1.5 mls/min Q6H IV 01/15/17 20:00 02/14/17 19:59 01/17/17 08:52 1.5 MLS/MIN Glucose (Glucose 40% Gel) 15-30 GRAMS 15 GRAMS... UD PRN PO 01/15/17 17:15 02/14/17 17:14 Glucose (Glucose Chew Tab) 4-8 Tablets 4 Tabl... UD PRN PO 01/15/17 17:15 02/14/17 17:14 Dextrose (Dextrose 50% 50ML Syringe) 25-50ML OF 50% DW IV FOR... UD PRN IV 01/15/17 17:15 02/14/17 17:14 Glucagon (Glucagon Inj) 1 mg UD PRN SQ 01/15/17 17:15 02/14/17 17:14 Miscellaneous Information (Consult Glycemic Management Pharmacy) 1 ea UD N/A 01/15/17 17:47 02/14/17 17:46 Pantoprazole Sodium 40 mg/ Syringe 10 ml @ 5 mls/min DAILY IV 01/16/17 09:00 02/15/17 08:59 01/17/17 08:48 5 MLS/MIN Levofloxacin (Consult) 1 ea UD PRN N/A 01/15/17 18:30 02/14/17 18:29 Piperacillin Sod/ Tazobactam Sod (Consult) 1 ea UD PRN N/A 01/15/17 18:30 02/14/17 18:29 Levofloxacin 750 mg/Prmx 150 ml @ 100 mls/hr DAILY@1900 IV 01/15/17 19:00 01/22/17 18:59 01/16/17 19:47 100 MLS/HR Piperacillin Sod/ Tazobactam Sod 4.5 gm/Dextrose 120 ml @ 30 mls/hr Q8@0000,0800,1600 IV 01/16/17 00:00 01/23/17 00:00 01/17/17 08:51 30 MLS/HR Ipratropium [place] (Atrovent 0.02% 0.5MG/2.5ML Neb) 0.5 mg Q4R INH 01/15/17 20:00 02/14/17 19:59 01/17/17 06:58 0.5 MG Levalbuterol (Xopenex 1.25MG/ 0.5ML Neb) 1.25 mg Q4R INH 01/15/17 20:00 02/14/17 19:59 01/17/17 06:57 1.25 MG Ferrous Sulfate (Feosol Tab) 325 mg DAILY PO 01/16/17 09:00 02/15/17 08:59 01/17/17 08:48 325 MG Fluticasone Propionate (Flonase Nasal [place]) 2 sprays QAM ESPERANZA 01/16/17 09:00 02/15/17 08:59 01/17/17 08:48 2 SPRAYS Folic Acid (Folvite Tab) 1 mg QAM PO 01/16/17 09:00 02/15/17 08:59 01/17/17 08:47 1 MG Metoprolol Tartrate (Lopressor Tab) 50 mg BID PO 01/16/17 09:00 02/15/17 08:59 01/17/17 08:48 50 MG Multivitamins (Multivitamin Tab) 1 tab QAM PO 01/16/17 09:00 02/15/17 08:59 01/17/17 08:47 1 TAB Cyanocobalamin (Vitamin B-12 Tab) 1,000 mcg DAILY PO 01/16/17 09:00 02/15/17 08:59 01/17/17 08:48 1,000 MCG Magnesium Oxide (Mag-Ox Tab) 400 mg DAILY PO 01/16/17 09:00 02/15/17 08:59 01/17/17 08:47 400 MG Lactobacillus Acidophilus (Floranex Tab) 1 tab DAILY PO 01/16/17 09:00 02/15/17 08:59 01/17/17 08:48 1 TAB Heparin Sodium (Porcine) (Heparin 100 Unit/ml 5ml Flush) 5 ml PRN PRN IV 01/15/17 23:45 02/14/17 23:44 Acetaminophen (Tylenol Tab) 650 mg Q6H PRN PO 01/16/17 03:45 02/15/17 03:44 Insulin Glargine (Lantus Solostar Pen) BID SC 01/16/17 09:00 02/15/17 08:59 01/17/17 08:51 10 UNITS Heparin Sodium (Porcine) (Heparin Sq 5000 Unit/0.5ml) 5,000 unit Q8 SQ 01/16/17 14:00 02/15/17 13:59 01/17/17 06:34 5,000 UNIT Insulin Aspart (novoLOG ASPART) SLIDING SCALE If C... ACHS SC 01/16/17 16:00 02/15/17 15:59 01/17/17 08:50 13 UNITS Insulin Aspart (novoLOG ASPART) SLIDING SCALE If C... 0000,0400 IN 01/17/17 00:00 02/16/17 00:00 Vital Signs: Date Time Temp Pulse Resp B/P (MAP) Pulse Ox O2 Delivery O2 Flow Rate FiO2 01/17/17 08:00 96 Nasal Cannula 5.0 01/17/17 08:00 36.8 115 22 119/74 (89) 96 Nasal Cannula 5.0 01/17/17 07:00 80 99 40 01/17/17 06:59 80 18 99 BiPAP/CPAP 40 01/17/17 04:43 93 BiPAP 40 01/17/17 04:01 78 20 115/69 (84) 98 BiPAP 40 01/17/17 03:29 92 16 96 BiPAP/CPAP 40 01/17/17 03:01 84 18 160/69 (99) 93 BiPAP 40 01/17/17 01:01 80 19 126/66 (86) 99 BiPAP 40 01/17/17 00:31 93 BiPAP 40 01/17/17 00:01 36.8 82 18 145/84 (104) 100 BiPAP 40 01/16/17 23:01 88 17 119/77 (91) 100 BiPAP 40 01/16/17 22:58 90 16 98 BiPAP/CPAP 40 01/16/17 22:55 90 98 40 01/16/17 22:01 89 17 141/74 (96) 97 5.0 01/16/17 21:01 111 23 123/85 (98) 96 5.0 01/16/17 20:11 93 Nasal Cannula 5.0 01/16/17 20:01 36.7 101 22 125/82 (96) 99 Nasal Cannula 5.0 01/16/17 19:55 99 16 95 Nasal Cannula 5.0 01/16/17 19:39 126 27 154/89 (110) 90 Nasal Cannula 5.0 01/16/17 16:00 36.7 105 29 150/82 (104) 95 Nasal Cannula 5.0 01/16/17 16:00 96 Nasal Cannula 6.0 01/16/17 14:49 72 20 98 Nasal Cannula 6.0 01/16/17 11:33 98 Nasal Cannula 6.0 01/16/17 11:05 72 24 98 BiPAP/CPAP 40 01/16/17 11:03 91 98 40 01/16/17 11:01 81 17 122/60 (80) 98 BiPAP 40 01/16/17 10:00 71 17 120/70 (87) 98 BiPAP 40 Laboratory Results: Last 24 Hours Test 01/16/17 11:09 01/16/17 16:10 01/16/17 20:42 01/17/17 00:29 Bedside Glucose 273 mg/dl 182 mg/dl 239 mg/dl 118 mg/dl Test 01/17/17 04:14 01/17/17 05:37 Bedside Glucose 174 mg/dl White Blood Count 12.05 K/uL Red Blood Count 3.45 M/uL Hemoglobin 8.6 g/dL Hematocrit 28.6 % Mean Corpuscular Volume 82.9 fL Mean Corpuscular Hemoglobin 24.9 pg Mean Corpuscular Hemoglobin Concent 30.1 g/dl Platelet Count 278 K/uL Mean Platelet Volume 9.1 fL Neutrophils (%) (Auto) 95.0 % Lymphocytes (%) (Auto) 3.3 % Monocytes (%) (Auto) 1.3 % Eosinophils (%) (Auto) 0.0 % Basophils (%) (Auto) 0.0 % Neutrophils # (Auto) 11.44 K/uL Lymphocytes # (Auto) 0.40 K/uL Monocytes # (Auto) 0.16 K/uL Eosinophils # (Auto) 0.00 K/uL Basophils # (Auto) 0.00 K/uL RDW Standard Deviation 51.6 fL RDW Coefficient of Variation 16.8 % Immature Granulocyte % (Auto) 0.4 % Immature Granulocyte # (Auto) 0.05 K/uL Polychromasia 1+ Sodium Level 138 mmol/L Potassium Level 4.5 mmol/L Chloride Level 100 mmol/L Carbon Dioxide Level 33 mmol/L Anion Gap 5.0 mmol/L Blood Urea Nitrogen 15 mg/dl Creatinine 0.70 mg/dl Est Creatinine Clear Calc Drug Dose 89.0 ml/min Estimated GFR () 113.0 Estimated GFR (Non- 97.5 BUN/Creatinine Ratio 21.7 Random Glucose 175 mg/dl Calcium Level 8.7 mg/dl
[2017-01-17] MEDS ORDERED: INSULIN GLARGINE SOLOSTAR 100 UNITS/ML 3 ML PEN SC ONE (12:30)
--- NOTE | 2017-01-17 12:36 | Pharmacy Progress Note ---
Glycemic Control Progress Note Date of Service Jan 17, 2017. Scope Glycemic Pharmacist consulted for glycemic control to write orders per [facility] inpatient glycemic control protocol. Objective Accuchecks BSG (last 24hrs): Test 01/16/17 16:10 01/16/17 20:42 01/17/17 00:29 01/17/17 04:14 Bedside Glucose 182 mg/dl (70-90) 239 mg/dl (70-90) 118 mg/dl (70-90) 174 mg/dl (70-90) Test 01/17/17 05:37 01/17/17 11:24 Random Glucose 175 mg/dl (70-99) Bedside Glucose 235 mg/dl (70-90) HbA1c: Test 01/16/17 05:33 Hemoglobin A1c 6.3 % (4.5-5.6) H Recent Pertinent Medications The patient is currently receiving: * Basal insulin: Lantus 20 units every 12 hours * Correctional Insulin: Novolog Correction per scale ACHS Goal Range: Low 140 mg/dL - High 180 mg/dL Correction Factor: 12 mg/dL/unit * Prandial insulin: Per carb ratio of 1 unit per 4 grams CHO consumed Outpatient Anti-Diabetic Meds NPH 10 units daily with Hydrocortisone/prednisone Assessment & Plan ASSESSMENT: * 56 yo T2DM F admitted with respiratory failure, initiated on high dose steroids and broad spectrum antibiotics * Pt receiving SQ basal bolus insulin regimen for hyperglycemia secondary to baseline DM (outpatient regimen on hold),stress/infection, steroids * Patient is currently receiving an average of ~80 units of insulin per day * 40 units of basal insulin * 40 units of prandial/correctional insulin * BSGs ranging 118 - 273 mg/dl over the past 24hrs * Changes needed to insulin regimen: * AM Fasting BSG = 175 mg/dl. This is in slightly above goal range for patient based on inpatient targets and co-morbidities. I would normal increase basal insulin at this time but steroids are going to start rapidly tapering in the next 48 hours. Keep basal the same. * Post-prandial BSGs are elevated/BSGs rise throughout the day therefore need to tighten CF/CR * Additional notes / comments: * Regimen currently split 50/50 * Will need to aggressively cut back insulin with each step in steroid taper * Hopeful to get patient back to [facility] when PO prednisone started PLAN FOR INPATIENT GLYCEMIC CONTROL: * Basal insulin * Lantus 20 units SQ BID, give 10 units if BSG <140 * Bolus insulin * NovoLog per scale ACHS or Q6hrs while NPO * Goal Range: Low 110 mg/dL - High 140 mg/dL * Correction Factor: 10 mg/dL/unit * Nutritional / Prandial insulin per carb ratio of 1 unit per 3.5 grams CHO consumed * Please note that the plan above was derived based on current level of insulin resistance and hospital stress. These recommendations are appropriate for inpatient admission only. Plan of care upon discharge will need to be reassessed to avoid potential outpatient hypo/hyperglycemia. Thank you.
[2017-01-17] MEDS ORDERED: METHYLPREDNISOLONE IV 60 MG in SYRINGE 0 ML IV SCH (20:00)
--- NOTE | 2017-01-17 20:05 | Progress Note ---
Medicine Progress Note Date & Time of Visit: Jan 17, 2017 at 20:04. delayed entry date of service as noted above Subjective transferred to [facility] seen sitting up in bed, comfortable, watching TV states she feels improved compared to yesterday had some dyspnea this morning, improved now has occasional productive cough no chest pain no other symptoms Objective Last 8 Hrs Date Time Temp Pulse Resp B/P (MAP) Pulse Ox O2 Delivery O2 Flow Rate FiO2 01/17/17 19:16 82 20 98 Nasal Cannula 5.0 01/17/17 15:46 36.7 74 16 122/69 (86) 96 Nasal Cannula 5.0 01/17/17 15:16 82 20 92 Nasal Cannula 5.0 Physical Exam: General- oriented x 3, not in distress, speaks in sentences with no effort Eyes- anicteric Neck- no JVD Lungs- (+) scattered crackles bilaterally, no wheezes Heart- regular rhythm; no murmur, josh rate Abdomen- normal bowel sounds, soft, nontender Extremities- no pretibial edema, no calf tenderness Neuro- alert, oriented x 3;no gross focal deficits Skin- warm & dry Laboratory Results: Last 24 Hours Test 01/16/17 20:42 01/17/17 00:29 01/17/17 04:14 01/17/17 05:37 Bedside Glucose 239 mg/dl 118 mg/dl 174 mg/dl White Blood Count 12.05 K/uL Red Blood Count 3.45 M/uL Hemoglobin 8.6 g/dL Hematocrit 28.6 % Mean Corpuscular Volume 82.9 fL Mean Corpuscular Hemoglobin 24.9 pg Mean Corpuscular Hemoglobin Concent 30.1 g/dl Platelet Count 278 K/uL Mean Platelet Volume 9.1 fL Neutrophils (%) (Auto) 95.0 % Lymphocytes (%) (Auto) 3.3 % Monocytes (%) (Auto) 1.3 % Eosinophils (%) (Auto) 0.0 % Basophils (%) (Auto) 0.0 % Neutrophils # (Auto) 11.44 K/uL Lymphocytes # (Auto) 0.40 K/uL Monocytes # (Auto) 0.16 K/uL Eosinophils # (Auto) 0.00 K/uL Basophils # (Auto) 0.00 K/uL RDW Standard Deviation 51.6 fL RDW Coefficient of Variation 16.8 % Immature Granulocyte % (Auto) 0.4 % Immature Granulocyte # (Auto) 0.05 K/uL Polychromasia 1+ Sodium Level 138 mmol/L Potassium Level 4.5 mmol/L Chloride Level 100 mmol/L Carbon Dioxide Level 33 mmol/L Anion Gap 5.0 mmol/L Blood Urea Nitrogen 15 mg/dl Creatinine 0.70 mg/dl Est Creatinine Clear Calc Drug Dose 89.0 ml/min Estimated GFR () 113.0 Estimated GFR (Non- 97.5 BUN/Creatinine Ratio 21.7 Random Glucose 175 mg/dl Calcium Level 8.7 mg/dl Test 01/17/17 11:24 01/17/17 16:17 Bedside Glucose 235 mg/dl 122 mg/dl Assessment & Plan 56 year old female with history of Bronchiectasis, Chronic Respiratory Failure, DM, Immunedeficiency/Hypogammaglobulinemia presenting with shortness of breath and cough since yesterday. BRONCHIECTASIS EXACERBATION - transferred out of ICU 01/17/17 - afebrile, no leukocytosis - sputum culture: gram negative bacilli blood cultures: negative nasal MRSA negative - Day 3 Zosyn, Levaquin Nebs IV solumedrol being tapered - improving, weaned off Bipap during the day - continue Bipap at HS (as done at home) - consulted Pulmonary, possible Bronchoscopy DM - ISS - pharmacy consulted as patient on high dose steroids HYPOGAMMAGLOBULINEMIA - receives monthly injection, last dose last Tue - on chronic hydrocortisone--> will be on IV solumedrol DVT proph Heparin SCDs Full code Dispo pending anticipate d/c home when medically stable lives at home with family ff up with ZACARIAS Subramanian Current Inpatient Medications: Current Inpatient Medications Medications (Trade) Dose Ordered Sig/Man Route Start Time Stop Time Status Last Admin Dose Admin Glucose (Glucose 40% Gel) 15-30 GRAMS 15 GRAMS... UD PRN PO 01/15/17 17:15 02/14/17 17:14 Glucose (Glucose Chew Tab) 4-8 Tablets 4 Tabl... UD PRN PO 01/15/17 17:15 02/14/17 17:14 Dextrose (Dextrose 50% 50ML Syringe) 25-50ML OF 50% DW IV FOR... UD PRN IV 01/15/17 17:15 02/14/17 17:14 Glucagon (Glucagon Inj) 1 mg UD PRN SQ 01/15/17 17:15 02/14/17 17:14 Miscellaneous Information (Consult Glycemic Management Pharmacy) 1 ea UD N/A 01/15/17 17:47 02/14/17 17:46 Levofloxacin (Consult) 1 ea UD PRN N/A 01/15/17 18:30 02/14/17 18:29 Piperacillin Sod/ Tazobactam Sod (Consult) 1 ea UD PRN N/A 01/15/17 18:30 02/14/17 18:29 Levofloxacin 750 mg/Prmx 150 ml @ 100 mls/hr DAILY@1900 IV 01/15/17 19:00 01/22/17 18:59 01/16/17 19:47 100 MLS/HR Piperacillin Sod/ Tazobactam Sod 4.5 gm/Dextrose 120 ml @ 30 mls/hr Q8@0000,0800,1600 IV 01/16/17 00:00 01/23/17 00:00 01/17/17 16:28 30 MLS/HR Ipratropium [place] (Atrovent 0.02% 0.5MG/2.5ML Neb) 0.5 mg Q4R INH 01/15/17 20:00 02/14/17 19:59 01/17/17 19:12 0.5 MG Levalbuterol (Xopenex 1.25MG/ 0.5ML Neb) 1.25 mg Q4R INH 01/15/17 20:00 02/14/17 19:59 01/17/17 19:16 1.25 MG Ferrous Sulfate (Feosol Tab) 325 mg DAILY PO 01/16/17 09:00 02/15/17 08:59 01/17/17 08:48 325 MG Fluticasone Propionate (Flonase Nasal [place]) 2 sprays QAM ESPERANZA 01/16/17 09:00 02/15/17 08:59 01/17/17 08:48 2 SPRAYS Folic Acid (Folvite Tab) 1 mg QAM PO 01/16/17 09:00 02/15/17 08:59 01/17/17 08:47 1 MG Metoprolol Tartrate (Lopressor Tab) 50 mg BID PO 01/16/17 09:00 02/15/17 08:59 01/17/17 08:48 50 MG Multivitamins (Multivitamin Tab) 1 tab QAM PO 01/16/17 09:00 02/15/17 08:59 01/17/17 08:47 1 TAB Cyanocobalamin (Vitamin B-12 Tab) 1,000 mcg DAILY PO 01/16/17 09:00 02/15/17 08:59 01/17/17 08:48 1,000 MCG Magnesium Oxide (Mag-Ox Tab) 400 mg DAILY PO 01/16/17 09:00 02/15/17 08:59 01/17/17 08:47 400 MG Lactobacillus Acidophilus (Floranex Tab) 1 tab DAILY PO 01/16/17 09:00 02/15/17 08:59 01/17/17 08:48 1 TAB Heparin Sodium (Porcine) (Heparin 100 Unit/ml 5ml Flush) 5 ml PRN PRN IV 01/15/17 23:45 02/14/17 23:44 01/17/17 14:42 5 ML Acetaminophen (Tylenol Tab) 650 mg Q6H PRN PO 01/16/17 03:45 02/15/17 03:44 Insulin Glargine (Lantus Solostar Pen) BID SC 01/16/17 09:00 02/15/17 08:59 01/17/17 08:51 10 UNITS Heparin Sodium (Porcine) (Heparin Sq 5000 Unit/0.5ml) 5,000 unit Q8 SQ 01/16/17 14:00 02/15/17 13:59 01/17/17 13:34 5,000 UNIT Insulin Aspart (novoLOG ASPART) SLIDING SCALE If C... ACHS SC 01/16/17 16:00 02/15/17 15:59 01/17/17 17:33 16 UNITS Methylprednisolone Sodium Succinate 60 mg/Syringe 0.96 ml @ 1.5 mls/min Q12H IV 01/17/17 20:00 01/17/17 23:59 Pantoprazole Sodium (Protonix Tab) 40 mg DAILY PO 01/18/17 09:00 02/17/17 08:59 Methylprednisolone Sodium Succinate 40 mg/Syringe 0.64 ml @ 1.5 mls/min Q24H IV 01/18/17 09:00 01/19/17 09:01 Prednisone (PredniSONE TAB) 40 mg Taper QAM PO 01/20/17 09:00 01/28/17 08:59
[2017-01-17] MEDS: LEVOFLOXACIN 750MG / D5W IV SCH (21:04)
[2017-01-18] VITALS (12 sets, daily range): BP systolic 96–131; BP diastolic 57–80; PULSE 57–105; TEMP 36.4–36.7; O2SAT 93–99
[2017-01-18] MEDS: PIPERACILL/TAZOBAC IV 4.5 GM in DEXTROSE 5% 100ML IV SCH ×4 (01:03→23:35)
[2017-01-18] MEDS: LEVALBUTEROL 1.25MG/0.5ML NEB INH SCH ×6 (03:46→23:19)
[2017-01-18] MEDS: IPRATROPIUM BROMIDE NEB SOLN 0.02% 2.5 ML VIAL INH SCH ×6 (03:46→23:19)
[2017-01-18 06:02] LABS: COMPLETE YES; HEMATOCRIT 31.2 % (37-47); IG% 0.4 %; LYMPH % 8.2 %; LYMPH ABS # 0.79 K/uL (1.2-3.4); MEAN CELL VOLUME 83.9 fL (80-100); MEAN CORPUSCULAR HEMOGLOBIN 24.5 pg (25-34); MEAN CORPUSCULAR HGB CONC 29.2 g/dl (32-36); MEAN PLATELET VOLUME 9.1 fL (7.4-10.4); MONO % 2.3 %; NEUT % 89.1 %; PLATELET COUNT 283 K/uL (130-400); RED BLOOD COUNT 3.72 M/uL (4.2-5.4); WHITE BLOOD COUNT 9.67 K/uL (4.8-10.8)
[2017-01-18] MEDS: HEPARIN SOD 5000 UNIT/0.5 ML CARP SQ SCH ×3 (06:30→21:35)
[2017-01-18 06:33] LABS: BUN/CREATININE RATIO 26.3 (10-20); CALCIUM 8.6 mg/dl (8.5-10.1); CREATININE 0.7 mg/dl (0.60-1.20); POTASSIUM 4.7 mmol/L (3.5-5.1)
[2017-01-18] MEDS: LACTOBACILLUS ACIDOPHILUS (FLORANEX) TAB PO SCH (07:56)
[2017-01-18] MEDS: CYANOCOBALAMIN 500 MCG TAB (VIT B-12) PO SCH (07:56)
[2017-01-18] MEDS: PANTOprazole SOD 40 MG TAB PO SCH (07:56)
[2017-01-18] MEDS: MAGNESIUM OXIDE 400 MG TAB PO SCH (07:56)
[2017-01-18] MEDS: FERROUS SULFATE 325 MG TAB PO SCH (07:56)
[2017-01-18] MEDS: MULTIVITAMIN TAB PO SCH (07:56)
[2017-01-18] MEDS: METHYLPREDNISOLONE IV 40 MG in SYRINGE 0 ML IV SCH (07:57)
[2017-01-18] MEDS: FLUTICASONE PROPIONATE NA SPR 16 GM BTL NAE SCH (07:57)
[2017-01-18] MEDS: METOPROLOL TARTRATE 50 MG TAB PO SCH ×2 (07:58→21:33)
[2017-01-18] MEDS: INSULIN GLARGINE SOLOSTAR 100 UNITS/ML 3 ML PEN SC SCH (07:58)
[2017-01-18] MEDS: INSULIN ASPART 100 UNITS/ML 3 ML PEN SC SCH ×4 (08:05→21:35)
--- NOTE | 2017-01-18 10:02 | Pharmacy Progress Note ---
Glycemic Control Progress Note Date of Service Jan 18, 2017. Scope Glycemic Pharmacist consulted for glycemic control to write orders per [facility] inpatient glycemic control protocol. Objective Accuchecks BSG (last 24hrs): Test 01/17/17 11:24 01/17/17 16:17 01/17/17 20:06 01/18/17 05:24 Bedside Glucose 235 mg/dl (70-90) 122 mg/dl (70-90) 164 mg/dl (70-90) Random Glucose 116 mg/dl (70-99) Test 01/18/17 07:20 Bedside Glucose 101 mg/dl (70-90) HbA1c: Test 01/16/17 05:33 Hemoglobin A1c 6.3 % (4.5-5.6) H Recent Pertinent Medications The patient is currently receiving: * Basal insulin: Lantus 10-20 units every 12 hours * Correctional Insulin: Novolog Correction per scale ACHS Goal Range: Low 110 mg/dL - High 140 mg/dL Correction Factor: 10 mg/dL/unit * Prandial insulin: Per carb ratio of 1 unit per 3.5 grams CHO consumed Outpatient Anti-Diabetic Meds Basal Insulin - NPH 10 units SQ daily with prednisone Assessment & Plan ASSESSMENT: * See previous progress notes for more background info, in short: * Pt receiving SQ basal bolus insulin regimen for hyperglycemia secondary to baseline DM (outpatient regimen on hold),stress/infection, steroids * Patient is currently receiving an average of 80 units of insulin per day * 30-40 units of basal insulin * ~40-50units of prandial/correctional insulin * BSGs ranging 101 - 235 mg/dl over the past 24hrs * Changes needed to insulin regimen: * Steroids tapered from Solumedrol 60mg IV Q6hrs --> Q12hrs --> Q24hrs today. Expect dramatic improvement in BSGs now that we are below 80mg of Solumedrol per day. Will taper insulin in accordance with step down in steroid dosing * Since steroids are only being dosed once daily in AM will switch to NPH which is pt's outpatient insulin and it matches to PK of once daily steroids. * Post-prandial BSGs should improve with step down in steroid dosing. Will therefore need to loosen CF/CR * Total daily dose = ~80 units. Decrease in total daily dose is needed for decreased steroids. PLAN FOR INPATIENT GLYCEMIC CONTROL: * Basal insulin: decrease and d/c Lantus, change to NPH * NPH 10 units SQ daily with breakfast, to be given with once daily steroid ( solumedrol or prednisone) * Bolus insulin: decrease parameters * NovoLog per scale ACHS or Q6hrs while NPO * Goal Range: Low 110 mg/dL - High 140 mg/dL * Correction Factor: 15 mg/dL/unit * Nutritional / Prandial insulin per carb ratio of 1 unit per 5 grams CHO consumed * Please note that the plan above was derived based on current level of insulin resistance and hospital stress. These recommendations are appropriate for inpatient admission only. Plan of care upon discharge will need to be reassessed to avoid potential outpatient hypo/hyperglycemia. Thank you.
[2017-01-18] MEDS: INSULIN HUMAN NPH SC SCH (12:11)
[2017-01-18] MEDS ORDERED: BUTT PASTE 171 APPLN/57 GM JAR EXT PRN (16:00)
--- NOTE | 2017-01-18 18:15 | Progress Note ---
Medicine Progress Note Date & Time of Visit: Jan 18, 2017 at 18:14. Subjective Patient is pleasant and states she is feeling better overall, not yet at her baseline. She still has TOTH and a cough but now it is not productive. Also reports having diarrhea, and feeling her perianal area is sore as a result. No hemorrhoids or bleeding. No other complaints noted. No overnight events noted. Objective Last 8 Hrs Date Time Temp Pulse Resp B/P (MAP) Pulse Ox O2 Delivery O2 Flow Rate FiO2 01/18/17 16:10 Nasal Cannula 5.0 BiPAP 01/18/17 15:38 68 16 94 Nasal Cannula 3.0 01/18/17 15:27 36.7 64 20 131/80 (97) 98 Room Air 01/18/17 11:17 78 16 98 Nasal Cannula 5.0 Physical Exam: General: adult, appears older than stated age Head: atraumatic, normocephalic Eyes: PERRL, EOMI, anicteric Neck: supple, no JVD, no carotids bruits appreciated Lungs: Wheezing bilaterally; no chest wall pain/tenderness to palpation noted Heart: RR; no murmur, no gallop, no rub appreciated, S1 and S2 auscultated Abdomen: soft, nontender, normal bowel sounds, no palpable masses, no notable hepatosplenomegaly Extremities: no edema, no calf tenderness Neuro: alert, oriented x 3; no facial palsy; no dysarthria; no acute focal deficits noted Skin: warm, dry, no rashes; perianal erythema noted, no blisters or hemorrhoids Laboratory Results: Last 24 Hours Test 01/17/17 20:06 01/18/17 05:24 01/18/17 07:20 01/18/17 11:08 Bedside Glucose 164 mg/dl 101 mg/dl 125 mg/dl White Blood Count 9.67 K/uL Red Blood Count 3.72 M/uL Hemoglobin 9.1 g/dL Hematocrit 31.2 % Mean Corpuscular Volume 83.9 fL Mean Corpuscular Hemoglobin 24.5 pg Mean Corpuscular Hemoglobin Concent 29.2 g/dl Platelet Count 283 K/uL Mean Platelet Volume 9.1 fL Neutrophils (%) (Auto) 89.1 % Lymphocytes (%) (Auto) 8.2 % Monocytes (%) (Auto) 2.3 % Eosinophils (%) (Auto) 0.0 % Basophils (%) (Auto) 0.0 % Neutrophils # (Auto) 8.62 K/uL Lymphocytes # (Auto) 0.79 K/uL Monocytes # (Auto) 0.22 K/uL Eosinophils # (Auto) 0.00 K/uL Basophils # (Auto) 0.00 K/uL RDW Standard Deviation 52.5 fL RDW Coefficient of Variation 17.0 % Immature Granulocyte % (Auto) 0.4 % Immature Granulocyte # (Auto) 0.04 K/uL Sodium Level 139 mmol/L Potassium Level 4.7 mmol/L Chloride Level 99 mmol/L Carbon Dioxide Level 36 mmol/L Anion Gap 4.0 mmol/L Blood Urea Nitrogen 18 mg/dl Creatinine 0.70 mg/dl Est Creatinine Clear Calc Drug Dose 89.0 ml/min Estimated GFR () 113.0 Estimated GFR (Non- 97.5 BUN/Creatinine Ratio 26.3 Random Glucose 116 mg/dl Calcium Level 8.6 mg/dl Test 01/18/17 16:14 Bedside Glucose 128 mg/dl Date/Time Source Procedure Growth Status 01/18/17 14:49 Stool C.difficile Toxin B Gene (PCR) - Final No C. difficile toxin B gene detected Complete Assessment & Plan ACUTE ON CHRONIC RESPIRATORY FAILURE SECONDARY TO BRONCHIECTASIS EXACERBATION: -initially in ICU, transferred out on 01/17/17 -afebrile, no leukocytosis -sputum culture: gram negative bacilli -blood cultures: negative -nasal MRSA negative -Day #4 of Zosyn and Levaquin -continued on Nebs -continued on IV solumedrol, to be switched to PO in 24 hours -improving overall, weaned off Bipap during the day -continue Bipap at HS (as done at home) -consulted Pulmonary, possible Bronchoscopy DM TYPE II: -monitor BSG -pharmacy consulted as patient on high dose steroids -continued on insulin HYPOGAMMAGLOBULINEMIA: -receives monthly injection, last dose was last Tue -on chronic hydrocortisone; on IV solumedrol for now, will wean and resume PO at end of taper Current Inpatient Medications: Current Inpatient Medications Medications (Trade) Dose Ordered Sig/Man Route Start Time Stop Time Status Last Admin Dose Admin Glucose (Glucose 40% Gel) 15-30 GRAMS 15 GRAMS... UD PRN PO 01/15/17 17:15 02/14/17 17:14 Glucose (Glucose Chew Tab) 4-8 Tablets 4 Tabl... UD PRN PO 01/15/17 17:15 02/14/17 17:14 Dextrose (Dextrose 50% 50ML Syringe) 25-50ML OF 50% DW IV FOR... UD PRN IV 01/15/17 17:15 02/14/17 17:14 Glucagon (Glucagon Inj) 1 mg UD PRN SQ 01/15/17 17:15 02/14/17 17:14 Miscellaneous Information (Consult Glycemic Management Pharmacy) 1 ea UD N/A 01/15/17 17:47 02/14/17 17:46 Levofloxacin (Consult) 1 ea UD PRN N/A 01/15/17 18:30 02/14/17 18:29 Piperacillin Sod/ Tazobactam Sod (Consult) 1 ea UD PRN N/A 01/15/17 18:30 02/14/17 18:29 Levofloxacin 750 mg/Prmx 150 ml @ 100 mls/hr DAILY@1900 IV 01/15/17 19:00 01/22/17 18:59 01/17/17 21:04 100 MLS/HR Piperacillin Sod/ Tazobactam Sod 4.5 gm/Dextrose 120 ml @ 30 mls/hr Q8@0000,0800,1600 IV 01/16/17 00:00 01/23/17 00:00 01/18/17 16:17 30 MLS/HR Ipratropium [place] (Atrovent 0.02% 0.5MG/2.5ML Neb) 0.5 mg Q4R INH 01/15/17 20:00 02/14/17 19:59 01/18/17 15:38 0.5 MG Levalbuterol (Xopenex 1.25MG/ 0.5ML Neb) 1.25 mg Q4R INH 01/15/17 20:00 02/14/17 19:59 01/18/17 15:38 1.25 MG Ferrous Sulfate (Feosol Tab) 325 mg DAILY PO 01/16/17 09:00 02/15/17 08:59 01/18/17 07:56 325 MG Fluticasone Propionate (Flonase Nasal [place]) 2 sprays QAM ESPERANZA 01/16/17 09:00 02/15/17 08:59 01/18/17 07:57 2 SPRAYS Folic Acid (Folvite Tab) 1 mg QAM PO 01/16/17 09:00 02/15/17 08:59 01/18/17 07:56 1 MG Metoprolol Tartrate (Lopressor Tab) 50 mg BID PO 01/16/17 09:00 02/15/17 08:59 01/17/17 21:06 50 MG Multivitamins (Multivitamin Tab) 1 tab QAM PO 01/16/17 09:00 02/15/17 08:59 01/18/17 07:56 1 TAB Cyanocobalamin (Vitamin B-12 Tab) 1,000 mcg DAILY PO 01/16/17 09:00 02/15/17 08:59 01/18/17 07:56 1,000 MCG Magnesium Oxide (Mag-Ox Tab) 400 mg DAILY PO 01/16/17 09:00 02/15/17 08:59 01/18/17 07:56 400 MG Lactobacillus Acidophilus (Floranex Tab) 1 tab DAILY PO 01/16/17 09:00 02/15/17 08:59 01/18/17 07:56 1 TAB Heparin Sodium (Porcine) (Heparin 100 Unit/ml 5ml Flush) 5 ml PRN PRN IV 01/15/17 23:45 02/14/17 23:44 01/18/17 06:27 5 ML Acetaminophen (Tylenol Tab) 650 mg Q6H PRN PO 01/16/17 03:45 02/15/17 03:44 Heparin Sodium (Porcine) (Heparin Sq 5000 Unit/0.5ml) 5,000 unit Q8 SQ 01/16/17 14:00 02/15/17 13:59 01/18/17 12:11 5,000 UNIT Insulin Aspart (novoLOG ASPART) SLIDING SCALE If C... ACHS SC 01/16/17 16:00 02/15/17 15:59 01/18/17 17:31 14 UNITS Pantoprazole Sodium (Protonix Tab) 40 mg DAILY PO 01/18/17 09:00 02/17/17 08:59 01/18/17 07:56 40 MG Methylprednisolone Sodium Succinate 40 mg/Syringe 0.64 ml @ 1.5 mls/min Q24H IV 01/18/17 09:00 01/19/17 09:01 01/18/17 07:57 1.5 MLS/MIN Prednisone (PredniSONE TAB) 40 mg Taper QAM PO 01/20/17 09:00 01/28/17 08:59 Insulin Human NPH (novoLIN-N NPH) 10 units QDB SC 01/18/17 12:00 02/17/17 11:59 01/18/17 12:11 10 UNITS
[2017-01-18] MEDS: LEVOFLOXACIN 750MG / D5W IV SCH (19:42)
[2017-01-19] VITALS (12 sets, daily range): BP systolic 125; BP diastolic 70; PULSE 69–95; TEMP 36.4–36.8; O2SAT 92–97
[2017-01-19] MEDS: IPRATROPIUM BROMIDE NEB SOLN 0.02% 2.5 ML VIAL INH SCH ×6 (03:46→23:14)
[2017-01-19] MEDS: LEVALBUTEROL 1.25MG/0.5ML NEB INH SCH ×6 (03:46→23:14)
[2017-01-19] MEDS: HEPARIN SOD 5000 UNIT/0.5 ML CARP SQ SCH ×3 (05:29→21:16)
[2017-01-19 06:08] LABS: BASO % 0.1 %; BASO ABS # 0.01 K/uL (0-0.2); COMPLETE YES; EOS % 1.3 %; HEMATOCRIT 31.6 % (37-47); IG% 0.7 %; LYMPH % 16.3 %; MEAN CELL VOLUME 83.4 fL (80-100); MEAN CORPUSCULAR HEMOGLOBIN 24.8 pg (25-34); MEAN CORPUSCULAR HGB CONC 29.7 g/dl (32-36); MONO % 8.4 %; NEUT % 73.2 %; PLATELET COUNT 293 K/uL (130-400); RED BLOOD COUNT 3.79 M/uL (4.2-5.4)
[2017-01-19 06:36] LABS: BUN/CREATININE RATIO 22.4 (10-20); CREATININE 0.98 mg/dl (0.60-1.20)
--- NOTE | 2017-01-19 07:32 | Pulmonology Progress Note ---
Pulmonary Progress Note Date of Service Jan 18, 2017. Attending Dr. Miner Subjective Patient seen and examined. She states that she is feeling better than yesterday. She was able to comb hair and wash in bathroom with minimal difficulty today. She denies any cough, chest pain or shortness of breath at rest. Objective VS reviewed. currently on 3L NC Gen: AAOx3, NAD, speaking in full sentences without use of respiratory muscles CVS: S1, S2, RRR Lungs: fine crackles bilaterally, with sporadic wheezes, mostly on the right upper lung, mildly tachypnic with speaking Chest wall: right catheter in place Abd: soft/NT/ND/BS+ Ext: no edema bilaterally, no cyanosis, no clubbing Labs reviewed. ABG 01/15/2017-- 7.37/51/95/30/97% Sputum Cx 01/15/2017--sputum culture--prelim gram negative bacilli Blood Cx 01/15/2017--blood culture--no growth to date Imaging viewed and reviewed by me Medications reviewed. Zosyn 4.5g q8H, Levoquin 750 mg daily, Solumedrol 60 mg q6h, Ipratropium and Atrovent q4h Assessment & Plan Acute on chronic hypoxic hypercapnic respiratory failure Bronchiectasis exacerbation Chronic Hypogammaglobinemia History of MAURICIO infection Patient appears to be clinically improving daily. She is currently growing gram negative bacilli from sputum culture. Therefore I would continue with broad spectrum antibiotics of Levaquin and Zosyn until bacteria is speciated. She was interrupted bathroom without much dyspnea. She is less tightness and wheezing today. Continue Solu-Medrol IV for 1 more day and then switch over to prednisone taper She does have increased hypoxia with exertion and is still requiring increased supplemental oxygenation. Her baseline oxygen in 2L NC at rest that is increased to 4-5L. Continue to maintain SaO2 between 88-92%. Continue with BIPAP at night. Continue with Xopenx and Ipratropium nebulizers. Most likely she will have bronchoscopy done as an outpatient. In the meantime, continue with aggressive pulmonary toilet with chest PT and flutter valve and nebulized saline. I will sign off case today. Please contact me if you have any further questions or concerns. Data Medications: Current Inpatient Medications Medications (Trade) Dose Ordered Sig/Man Route Start Time Stop Time Status Last Admin Dose Admin Glucose (Glucose 40% Gel) 15-30 GRAMS 15 GRAMS... UD PRN PO 01/15/17 17:15 02/14/17 17:14 Glucose (Glucose Chew Tab) 4-8 Tablets 4 Tabl... UD PRN PO 01/15/17 17:15 02/14/17 17:14 Dextrose (Dextrose 50% 50ML Syringe) 25-50ML OF 50% DW IV FOR... UD PRN IV 01/15/17 17:15 02/14/17 17:14 Glucagon (Glucagon Inj) 1 mg UD PRN SQ 01/15/17 17:15 02/14/17 17:14 Miscellaneous Information (Consult Glycemic Management Pharmacy) 1 ea UD N/A 01/15/17 17:47 02/14/17 17:46 Levofloxacin (Consult) 1 ea UD PRN N/A 01/15/17 18:30 02/14/17 18:29 Piperacillin Sod/ Tazobactam Sod (Consult) 1 ea UD PRN N/A 01/15/17 18:30 02/14/17 18:29 Levofloxacin 750 mg/Prmx 150 ml @ 100 mls/hr DAILY@1900 IV 01/15/17 19:00 01/22/17 18:59 01/17/17 21:04 100 MLS/HR Piperacillin Sod/ Tazobactam Sod 4.5 gm/Dextrose 120 ml @ 30 mls/hr Q8@0000,0800,1600 IV 01/16/17 00:00 01/23/17 00:00 01/18/17 08:03 30 MLS/HR Ipratropium [place] (Atrovent 0.02% 0.5MG/2.5ML Neb) 0.5 mg Q4R INH 01/15/17 20:00 02/14/17 19:59 01/18/17 11:16 0.5 MG Levalbuterol (Xopenex 1.25MG/ 0.5ML Neb) 1.25 mg Q4R INH 01/15/17 20:00 02/14/17 19:59 01/18/17 11:16 1.25 MG Ferrous Sulfate (Feosol Tab) 325 mg DAILY PO 01/16/17 09:00 02/15/17 08:59 01/18/17 07:56 325 MG Fluticasone Propionate (Flonase Nasal [place]) 2 sprays QAM ESPERANZA 01/16/17 09:00 02/15/17 08:59 01/18/17 07:57 2 SPRAYS Folic Acid (Folvite Tab) 1 mg QAM PO 01/16/17 09:00 02/15/17 08:59 01/18/17 07:56 1 MG Metoprolol Tartrate (Lopressor Tab) 50 mg BID PO 01/16/17 09:00 02/15/17 08:59 01/17/17 21:06 50 MG Multivitamins (Multivitamin Tab) 1 tab QAM PO 01/16/17 09:00 02/15/17 08:59 01/18/17 07:56 1 TAB Cyanocobalamin (Vitamin B-12 Tab) 1,000 mcg DAILY PO 01/16/17 09:00 02/15/17 08:59 01/18/17 07:56 1,000 MCG Magnesium Oxide (Mag-Ox Tab) 400 mg DAILY PO 01/16/17 09:00 02/15/17 08:59 01/18/17 07:56 400 MG Lactobacillus Acidophilus (Floranex Tab) 1 tab DAILY PO 01/16/17 09:00 02/15/17 08:59 01/18/17 07:56 1 TAB Heparin Sodium (Porcine) (Heparin 100 Unit/ml 5ml Flush) 5 ml PRN PRN IV 01/15/17 23:45 02/14/17 23:44 01/18/17 06:27 5 ML Acetaminophen (Tylenol Tab) 650 mg Q6H PRN PO 01/16/17 03:45 02/15/17 03:44 Heparin Sodium (Porcine) (Heparin Sq 5000 Unit/0.5ml) 5,000 unit Q8 SQ 01/16/17 14:00 02/15/17 13:59 01/18/17 12:11 5,000 UNIT Insulin Aspart (novoLOG ASPART) SLIDING SCALE If C... ACHS SC 01/16/17 16:00 02/15/17 15:59 01/18/17 12:10 9 UNITS Pantoprazole Sodium (Protonix Tab) 40 mg DAILY PO 01/18/17 09:00 02/17/17 08:59 01/18/17 07:56 40 MG Methylprednisolone Sodium Succinate 40 mg/Syringe 0.64 ml @ 1.5 mls/min Q24H IV 01/18/17 09:00 01/19/17 09:01 01/18/17 07:57 1.5 MLS/MIN Prednisone (PredniSONE TAB) 40 mg Taper QAM PO 01/20/17 09:00 01/28/17 08:59 Insulin Human NPH (novoLIN-N NPH) 10 units QDB SC 01/18/17 12:00 02/17/17 11:59 01/18/17 12:11 10 UNITS Vital Signs: Date Time Temp Pulse Resp B/P (MAP) Pulse Ox O2 Delivery O2 Flow Rate FiO2 01/18/17 11:17 78 16 98 Nasal Cannula 5.0 01/18/17 08:12 57 98 40 01/18/17 08:00 Nasal Cannula 5.0 BiPAP 01/18/17 07:18 57 20 98 BiPAP/CPAP 40 01/18/17 07:04 36.4 78 20 96/57 (70) 93 BiPAP 5.0 01/18/17 03:47 72 99 40 01/18/17 03:46 72 20 99 BiPAP/CPAP 40 01/18/17 00:00 BiPAP 01/17/17 23:56 36.3 74 18 117/73 (88) 99 BiPAP 01/17/17 23:00 72 99 40 01/17/17 22:59 72 21 99 BiPAP/CPAP 40 01/17/17 22:26 94 98 40 01/17/17 19:16 82 20 98 Nasal Cannula 5.0 01/17/17 16:15 96 Nasal Cannula 5.0 01/17/17 15:46 36.7 74 16 122/69 (86) 96 Nasal Cannula 5.0 01/17/17 15:16 82 20 92 Nasal Cannula 5.0 Laboratory Results: Last 24 Hours Test 01/17/17 16:17 01/17/17 20:06 01/18/17 05:24 01/18/17 07:20 Bedside Glucose 122 mg/dl 164 mg/dl 101 mg/dl White Blood Count 9.67 K/uL Red Blood Count 3.72 M/uL Hemoglobin 9.1 g/dL Hematocrit 31.2 % Mean Corpuscular Volume 83.9 fL Mean Corpuscular Hemoglobin 24.5 pg Mean Corpuscular Hemoglobin Concent 29.2 g/dl Platelet Count 283 K/uL Mean Platelet Volume 9.1 fL Neutrophils (%) (Auto) 89.1 % Lymphocytes (%) (Auto) 8.2 % Monocytes (%) (Auto) 2.3 % Eosinophils (%) (Auto) 0.0 % Basophils (%) (Auto) 0.0 % Neutrophils # (Auto) 8.62 K/uL Lymphocytes # (Auto) 0.79 K/uL Monocytes # (Auto) 0.22 K/uL Eosinophils # (Auto) 0.00 K/uL Basophils # (Auto) 0.00 K/uL RDW Standard Deviation 52.5 fL RDW Coefficient of Variation 17.0 % Immature Granulocyte % (Auto) 0.4 % Immature Granulocyte # (Auto) 0.04 K/uL Sodium Level 139 mmol/L Potassium Level 4.7 mmol/L Chloride Level 99 mmol/L Carbon Dioxide Level 36 mmol/L Anion Gap 4.0 mmol/L Blood Urea Nitrogen 18 mg/dl Creatinine 0.70 mg/dl Est Creatinine Clear Calc Drug Dose 89.0 ml/min Estimated GFR () 113.0 Estimated GFR (Non- 97.5 BUN/Creatinine Ratio 26.3 Random Glucose 116 mg/dl Calcium Level 8.6 mg/dl Test 01/18/17 11:08 Bedside Glucose 125 mg/dl
[2017-01-19] MEDS: CYANOCOBALAMIN 500 MCG TAB (VIT B-12) PO SCH (08:12)
[2017-01-19] MEDS: METHYLPREDNISOLONE IV 40 MG in SYRINGE 0 ML IV SCH (08:13)
[2017-01-19] MEDS: PANTOprazole SOD 40 MG TAB PO SCH (08:13)
[2017-01-19] MEDS: LACTOBACILLUS ACIDOPHILUS (FLORANEX) TAB PO SCH (08:13)
[2017-01-19] MEDS: METOPROLOL TARTRATE 50 MG TAB PO SCH ×2 (08:13→21:13)
[2017-01-19] MEDS: MULTIVITAMIN TAB PO SCH (08:13)
[2017-01-19] MEDS: MAGNESIUM OXIDE 400 MG TAB PO SCH (08:13)
[2017-01-19] MEDS: FERROUS SULFATE 325 MG TAB PO SCH (08:13)
[2017-01-19] MEDS: FLUTICASONE PROPIONATE NA SPR 16 GM BTL NAE SCH (08:14)
[2017-01-19] MEDS: INSULIN ASPART 100 UNITS/ML 3 ML PEN SC SCH ×4 (08:19→21:16)
[2017-01-19] MEDS: INSULIN HUMAN NPH SC SCH (08:20)
[2017-01-19] MEDS: PIPERACILL/TAZOBAC IV 4.5 GM in DEXTROSE 5% 100ML IV SCH (08:22)
--- NOTE | 2017-01-19 10:41 | Pharmacy Progress Note ---
Glycemic Control Progress Note Date of Service Jan 19, 2017. Scope Glycemic Pharmacist consulted for glycemic control to write orders per [facility] inpatient glycemic control protocol. Objective Accuchecks BSG (last 24hrs): Test 01/18/17 11:08 01/18/17 16:14 01/18/17 20:41 01/19/17 05:31 Bedside Glucose 125 mg/dl (70-90) 128 mg/dl (70-90) 144 mg/dl (70-90) Random Glucose 72 mg/dl (70-99) Test 01/19/17 07:25 Bedside Glucose 73 mg/dl (70-90) HbA1c: Test 01/16/17 05:33 Hemoglobin A1c 6.3 % (4.5-5.6) H Recent Pertinent Medications The patient is currently receiving: * Basal insulin: NPH 10 units every 24 hours * Correctional Insulin: Novolog Correction per scale ACHS Goal Range: Low 110 mg/dL - High 140 mg/dL Correction Factor: 15 mg/dL/unit * Prandial insulin: Per carb ratio of 1 unit per 5 grams CHO consumed Outpatient Anti-Diabetic Meds Basal Insulin - NPH 10 units SQ daily with prednisone Assessment & Plan ASSESSMENT: * See progress note from 01/18 for more background info, in short: * Pt receiving SQ basal bolus insulin regimen for hyperglycemia secondary to baseline DM (outpatient regimen on hold),stress/infection, steroids * Patient is currently receiving an average of 47 units of insulin per day * 10 units of basal insulin * BSGs ranging 72 - 144 mg/dl over the past 24hrs * Changes needed to insulin regimen: * AM Fasting BSG = 72 mg/dl. This is slightly below goal range but only basal insulin on board is NPH dosed in the AM. Lower fasting BSGs are typically seen w/ once daily steroids since the glycemic effects of the steroid wear off by the following AM. * Post-prandial BSGs are in range therefore no changes needed to CF/CR PLAN FOR INPATIENT GLYCEMIC CONTROL: * Continue NPH 10 units qAM with once daily steroids * Continue Novolog ACHS * Goal 110-140 * CF 15 * CR 5 RECOMMENDATIONS FOR DISCHARGE: * Continue NPH 10 units daily with once daily steroid Thank you.
[2017-01-19] MEDS: SULFAMETHOXAZOLE/TRIMETHOPRIM DS 800/160MG TAB PO SCH ×2 (14:28→23:46)
--- NOTE | 2017-01-19 18:32 | Progress Note ---
Medicine Progress Note Date & Time of Visit: Jan 19, 2017 at 18:31. Subjective Patient doing well, had a bit more wheezing today. [place] her TOTH was about the same as it usually is, she has been able to ambulate in her room without difficulty. No overnight events noted. Tolerating PO. Diarrhea is still present but not as frequent or voluminous. No other complaints at this time. Objective Last 8 Hrs Date Time Temp Pulse Resp B/P (MAP) Pulse Ox O2 Delivery O2 Flow Rate FiO2 01/19/17 16:00 95 Nasal Cannula 3.0 01/19/17 15:41 95 18 95 Nasal Cannula 3.0 01/19/17 11:10 75 18 95 Nasal Cannula 3.0 Physical Exam: General: adult, appears older than stated age Head: atraumatic, normocephalic Eyes: PERRL, EOMI, anicteric Neck: supple, no JVD, no carotids bruits appreciated Lungs: Wheezing bilaterally; no chest wall pain/tenderness to palpation noted Heart: RR; no murmur, no gallop, no rub appreciated, S1 and S2 auscultated Abdomen: soft, nontender, normal bowel sounds, no palpable masses, no notable hepatosplenomegaly Extremities: no edema, no calf tenderness Neuro: alert, oriented x 3; no dysarthria; no acute focal deficits noted Skin: warm, dry, no rashes; perianal erythema noted, no blisters or hemorrhoids Laboratory Results: Last 24 Hours Test 01/18/17 20:41 01/19/17 05:31 01/19/17 07:25 01/19/17 11:29 Bedside Glucose 144 mg/dl 73 mg/dl 129 mg/dl White Blood Count 8.60 K/uL Red Blood Count 3.79 M/uL Hemoglobin 9.4 g/dL Hematocrit 31.6 % Mean Corpuscular Volume 83.4 fL Mean Corpuscular Hemoglobin 24.8 pg Mean Corpuscular Hemoglobin Concent 29.7 g/dl Platelet Count 293 K/uL Mean Platelet Volume 9.0 fL Neutrophils (%) (Auto) 73.2 % Lymphocytes (%) (Auto) 16.3 % Monocytes (%) (Auto) 8.4 % Eosinophils (%) (Auto) 1.3 % Basophils (%) (Auto) 0.1 % Neutrophils # (Auto) 6.30 K/uL Lymphocytes # (Auto) 1.40 K/uL Monocytes # (Auto) 0.72 K/uL Eosinophils # (Auto) 0.11 K/uL Basophils # (Auto) 0.01 K/uL RDW Standard Deviation 52.7 fL RDW Coefficient of Variation 17.3 % Immature Granulocyte % (Auto) 0.7 % Immature Granulocyte # (Auto) 0.06 K/uL Nucleated RBC Absolute Count (auto) 0.03 K/uL Nucleated Red Blood Cells % 0.3 % Sodium Level 138 mmol/L Potassium Level 4.0 mmol/L Chloride Level 97 mmol/L Carbon Dioxide Level 37 mmol/L Anion Gap 4.0 mmol/L Blood Urea Nitrogen 22 mg/dl Creatinine 0.98 mg/dl Est Creatinine Clear Calc Drug Dose 63.6 ml/min Estimated GFR () 75.3 Estimated GFR (Non- 64.9 BUN/Creatinine Ratio 22.4 Random Glucose 72 mg/dl Calcium Level 9.0 mg/dl Test 01/19/17 16:13 Bedside Glucose 142 mg/dl Assessment & Plan ACUTE ON CHRONIC RESPIRATORY FAILURE SECONDARY TO BRONCHIECTASIS EXACERBATION: -initially in ICU, transferred out on 01/17/17 -afebrile, no leukocytosis -sputum culture: gram negative bacilli -blood cultures: negative -nasal MRSA negative -Day #5 of Zosyn and Levaquin; stopped today as cultures have returned and show a resistant Acinetobacter baumannii which is resistant to both of those; switched to bactrim today per [facility] recommendations -continued on Nebs -continued on IV solumedrol, to be switched to PO in AM -improving overall, weaned off Bipap during the day -continue Bipap at HS (as done at home) -consulted Pulmonary, possible Bronchoscopy as outpatient DM TYPE II: -monitor BSG -pharmacy consulted as patient on high dose steroids -continued on insulin HYPOGAMMAGLOBULINEMIA: -receives monthly injection, last dose was last Tue -on chronic hydrocortisone; on IV solumedrol for now, will wean and resume PO at end of taper Current Inpatient Medications: Current Inpatient Medications Medications (Trade) Dose Ordered Sig/Man Route Start Time Stop Time Status Last Admin Dose Admin Glucose (Glucose 40% Gel) 15-30 GRAMS 15 GRAMS... UD PRN PO 01/15/17 17:15 02/14/17 17:14 Glucose (Glucose Chew Tab) 4-8 Tablets 4 Tabl... UD PRN PO 01/15/17 17:15 02/14/17 17:14 Dextrose (Dextrose 50% 50ML Syringe) 25-50ML OF 50% DW IV FOR... UD PRN IV 01/15/17 17:15 02/14/17 17:14 Glucagon (Glucagon Inj) 1 mg UD PRN SQ 01/15/17 17:15 02/14/17 17:14 Miscellaneous Information (Consult Glycemic Management Pharmacy) 1 ea UD N/A 01/15/17 17:47 02/14/17 17:46 Ipratropium [place] (Atrovent 0.02% 0.5MG/2.5ML Neb) 0.5 mg Q4R INH 01/15/17 20:00 02/14/17 19:59 01/19/17 15:40 0.5 MG Levalbuterol (Xopenex 1.25MG/ 0.5ML Neb) 1.25 mg Q4R INH 01/15/17 20:00 02/14/17 19:59 01/19/17 15:40 1.25 MG Ferrous Sulfate (Feosol Tab) 325 mg DAILY PO 01/16/17 09:00 02/15/17 08:59 01/19/17 08:13 325 MG Fluticasone Propionate (Flonase Nasal [place]) 2 sprays QAM ESPERANZA 01/16/17 09:00 02/15/17 08:59 01/19/17 08:14 2 SPRAYS Folic Acid (Folvite Tab) 1 mg QAM PO 01/16/17 09:00 02/15/17 08:59 01/19/17 08:14 1 MG Metoprolol Tartrate (Lopressor Tab) 50 mg BID PO 01/16/17 09:00 02/15/17 08:59 01/19/17 08:13 50 MG Multivitamins (Multivitamin Tab) 1 tab QAM PO 01/16/17 09:00 02/15/17 08:59 01/19/17 08:13 1 TAB Cyanocobalamin (Vitamin B-12 Tab) 1,000 mcg DAILY PO 01/16/17 09:00 02/15/17 08:59 01/19/17 08:12 1,000 MCG Magnesium Oxide (Mag-Ox Tab) 400 mg DAILY PO 01/16/17 09:00 02/15/17 08:59 01/19/17 08:13 400 MG Lactobacillus Acidophilus (Floranex Tab) 1 tab DAILY PO 01/16/17 09:00 02/15/17 08:59 01/19/17 08:13 1 TAB Heparin Sodium (Porcine) (Heparin 100 Unit/ml 5ml Flush) 5 ml PRN PRN IV 01/15/17 23:45 02/14/17 23:44 01/19/17 12:39 5 ML Acetaminophen (Tylenol Tab) 650 mg Q6H PRN PO 01/16/17 03:45 02/15/17 03:44 Heparin Sodium (Porcine) (Heparin Sq 5000 Unit/0.5ml) 5,000 unit Q8 SQ 01/16/17 14:00 02/15/17 13:59 01/19/17 12:39 5,000 UNIT Insulin Aspart (novoLOG ASPART) SLIDING SCALE If C... ACHS SC 01/16/17 16:00 02/15/17 15:59 01/19/17 17:56 14 UNITS Pantoprazole Sodium (Protonix Tab) 40 mg DAILY PO 01/18/17 09:00 02/17/17 08:59 01/19/17 08:13 40 MG Prednisone (PredniSONE TAB) 40 mg Taper QAM PO 01/20/17 09:00 01/28/17 08:59 Insulin Human NPH (novoLIN-N NPH) 10 units QDB SC 01/18/17 12:00 02/17/17 11:59 01/19/17 08:20 10 UNITS Trimethoprim/ Sulfamethoxazole (Septra Ds 800/ 160MG Tab) 1 tab Q12 PO 01/19/17 14:00 01/26/17 13:59 01/19/17 14:28 1 TAB
[2017-01-20] VITALS (8 sets, daily range): BP systolic 106–126; BP diastolic 72–79; PULSE 71–104; TEMP 36.6–37.2; O2SAT 91–96
[2017-01-20] MEDS: IPRATROPIUM BROMIDE NEB SOLN 0.02% 2.5 ML VIAL INH SCH ×4 (03:06→15:24)
[2017-01-20] MEDS: LEVALBUTEROL 1.25MG/0.5ML NEB INH SCH ×4 (03:06→15:24)
[2017-01-20] MEDS: HEPARIN SOD 5000 UNIT/0.5 ML CARP SQ SCH ×2 (05:49→13:32)
[2017-01-20 05:52] LABS: BASO % 0.1 %; BASO ABS # 0.01 K/uL (0-0.2); COMPLETE YES; EOS % 3.5 %; HEMATOCRIT 33.3 % (37-47); IG% 0.4 %; LYMPH % 17.8 %; LYMPH ABS # 1.62 K/uL (1.2-3.4); MEAN CELL VOLUME 82.2 fL (80-100); MEAN CORPUSCULAR HEMOGLOBIN 24.7 pg (25-34); MEAN PLATELET VOLUME 8.8 fL (7.4-10.4); MONO % 5.7 %; NEUT % 72.5 %; PLATELET COUNT 319 K/uL (130-400); RED BLOOD COUNT 4.05 M/uL (4.2-5.4)
[2017-01-20 06:12] LABS: CALCIUM 8.9 mg/dl (8.5-10.1); CREATININE 0.82 mg/dl (0.60-1.20)
[2017-01-20] MEDS: METOPROLOL TARTRATE 50 MG TAB PO SCH (08:02)
[2017-01-20] MEDS: PANTOprazole SOD 40 MG TAB PO SCH (08:02)
[2017-01-20] MEDS: LACTOBACILLUS ACIDOPHILUS (FLORANEX) TAB PO SCH (08:02)
[2017-01-20] MEDS: MULTIVITAMIN TAB PO SCH (08:02)
[2017-01-20] MEDS: FLUTICASONE PROPIONATE NA SPR 16 GM BTL NAE SCH (08:02)
[2017-01-20] MEDS: MAGNESIUM OXIDE 400 MG TAB PO SCH (08:02)
[2017-01-20] MEDS: CYANOCOBALAMIN 500 MCG TAB (VIT B-12) PO SCH (08:02)
[2017-01-20] MEDS: SULFAMETHOXAZOLE/TRIMETHOPRIM DS 800/160MG TAB PO SCH (08:02)
[2017-01-20] MEDS: FERROUS SULFATE 325 MG TAB PO SCH (08:02)
[2017-01-20] MEDS: INSULIN ASPART 100 UNITS/ML 3 ML PEN SC SCH ×2 (08:03→11:57)
[2017-01-20] MEDS: INSULIN HUMAN NPH SC SCH (08:04)
[2017-01-20] MEDS ORDERED: SULF-183 PO (14:26)
[2017-01-20] MEDS ORDERED: PRED10TA PO (14:26)
--- NOTE | 2017-01-20 14:33 | Discharge Instructions ---
Discharge Instructions Date of Service Jan 20, 2017. Admission Reason for Admission: Respiratory Failure Discharge Discharge Diagnosis / Problem: Respiratory failure Discharge Goals Goal(s): Therapeutic intervention Activity Recommendations Activity Limitations: resume your previous activity Exercise/Sports Limitations: gradually increase as tolerated . Instructions / Follow-Up Instructions / Follow-Up Please see Kalyn BHAKTA) in [place] (covering for Ivonne Subramanian) for hospital follow up on January 26 at 2:55PM Discussed with Dr. Villalta, the bronchoscopy will not be done on TuesdayJanuary 25. Will need to be rescheduled due to active infection. Current Hospital Diet Patient's current hospital diet: Diabetes Type 2 Diet Discharge Diet Recommended Diet: Diabetes Type 2 Diet Pending Studies Studies pending at discharge: no Laboratory Results Hemoglobin A1c Test 01/16/17 05:33 Range/Units Estimated Average Glucose 134 mg/dl Hemoglobin A1c 6.3 H 4.5-5.6 % Medical Emergencies . Who to Call and When: Medical Emergencies: If at any time you feel your situation is an emergency, please call 911 immediately. . Non-Emergent Contact Non-Emergency issues call your: Primary Care Provider . . "Provider Documentation" section prepared by Janessa Blas. . VTE Core Measure Inpt VTE Proph given/why not?: SCD's
--- NOTE | 2017-01-20 14:40 | Discharge Summary ---
Discharge Summary Date of Service Jan 20, 2017. Discharge Summary Admission Date: Jan 15, 2017 at 16:59 Discharge Date: Jan 20, 2017 Admission Information HPI (per Admitting provider): 56 year old female with history of Bronchiectasis, Chronic Respiratory Failure, DM, Immunedeficiency/Hypogammaglobulinemia presenting with shortness of breath and cough since yesterday. Patient reports increasing shortness of breath and cough since yesterday associated with increased sputum production. Denies fever/chills, reports some chest tightness with the dyspnea. Denies other symptoms. Physical Exam (per Admitting): General Appearance: WD/WN, + mild distress (tachypneic, speaks in sentences with some effort) Head: normocephalic, atraumatic Eyes: normal inspection, PERRL, EOMI, sclerae normal ENT: normal ENT inspection, hearing grossly normal, TMs normal Neck: supple, no adenopathy, thyroid normal, no JVD, trachea midline Respiratory/Chest: + crackles (bilateral, diffuse) Cardiovascular: regular rate, rhythm, no edema, no JVD, no murmur Abdomen/GI: normal bowel sounds, non tender, soft Extremities/Musculoskelatal: normal inspection, no calf tenderness, normal capillary refill, no pedal edema Neurologic/Psych: comfort filler II-XII nml as tested, no motor/sensory deficits, alert , normal mood/affect, oriented x 3 Skin: normal color, warm/dry, no rash Hospital Course ACUTE ON CHRONIC RESPIRATORY FAILURE SECONDARY TO BRONCHIECTASIS EXACERBATION: -initially in ICU, transferred out on 01/17/17 -afebrile, no leukocytosis -sputum culture: gram negative bacilli -blood cultures: negative -nasal MRSA negative -Day #5 of Zosyn and Levaquin; stopped today as cultures have returned and show a resistant Acinetobacter baumannii which is resistant to both of those; switched to bactrim today per [facility] recommendations -continued on Nebs -continued on IV solumedrol, to be switched to PO in AM -improving overall, weaned off Bipap during the day -continue Bipap at HS (as done at home) -consulted Pulmonary, possible Bronchoscopy as outpatient DM TYPE II: -monitor BSG -pharmacy consulted as patient on high dose steroids -continued on insulin HYPOGAMMAGLOBULINEMIA: -receives monthly injection, last dose was last Wed -on chronic hydrocortisone; on IV solumedrol for now, will wean and resume PO at end of taper Total time spent on discharge = This includes examination of the patient, discharge planning, medication reconciliation, and communication with other providers.
== END 2017-01-20 15:41 | disposition home or self-care (01) | DRG 189 ==
LOC: C.EDB 12:58 → ENRESERV 16:50 → CANRESERV 16:50 → C.MSICU 16:59 → EDBEDREQ 17:00 → EDBEDREQSVC 17:00 → EDBEDREQTM 17:01 → ENRESERV 17:02 → CANRESERV 20:27 → CANBEDREQ 20:28 → ENRESERV 01-17 11:19 → C.MS2W 01-17 12:02
PROVIDERS: ADMIT Internal Medicine; ATTEND Internal Medicine
DX: J96.21 Acute and chronic respiratory failure with hypoxia (principal); J47.1 Bronchiectasis with (acute) exacerbation; D80.1 Nonfamilial hypogammaglobulinemia; F41.9 Anxiety disorder, unspecified; J45.909 Unspecified asthma, uncomplicated; F32.9 Major depressive disorder, single episode, unspecified; E11.9 Type 2 diabetes mellitus without complications; K21.9 Gastro-esophageal reflux disease without esophagitis; E78.5 Hyperlipidemia, unspecified; G47.33 Obstructive sleep apnea (adult) (pediatric); Z99.81 Dependence on supplemental oxygen; Z87.01 Personal history of pneumonia (recurrent); Z90.710 Acquired absence of both cervix and uterus; Z90.49 Acquired absence of other specified parts of digestive tract; Z79.82 Long term (current) use of aspirin; Z84.1 Family history of disorders of kidney and ureter; Z80.9 Family history of malignant neoplasm, unspecified

== ENCOUNTER → 2017-02-21 | Outpatient (CLI) | payer OTHER ==
[~2017-02-21] MED LIST changes: +ALBINS INH; -ALBINS NEB; +MISCCAP80 PO; +PRED10TA PO; +SULF-183 PO; -probiotic PO; +vitamin c PO
[2017-02-21 18:07] LABS: BASO % 0.5 %; BASO ABS # 0.04 K/uL (0-0.2); COMPLETE YES; EOS % 1.5 %; HEMATOCRIT 36.3 % (37-47); IG% 0.1 %; LYMPH % 17.7 %; LYMPH ABS # 1.52 K/uL (1.2-3.4); MEAN CELL VOLUME 85.4 fL (80-100); MEAN CORPUSCULAR HEMOGLOBIN 26.8 pg (25-34); MEAN CORPUSCULAR HGB CONC 31.4 g/dl (32-36); MEAN PLATELET VOLUME 9.4 fL (7.4-10.4); MONO % 3.7 %; NEUT % 76.5 %; PLATELET COUNT 242 K/uL (130-400); RED BLOOD COUNT 4.25 M/uL (4.2-5.4)
[2017-02-21 18:13] LABS: PARTIAL THROMBOPLASTIN RATIO 1.1; PROTHROMBIN TIME (PATIENT) 10.2 SECONDS (9.0-12.0)
[2017-02-21 18:16] LABS: BLOOD UREA NITROGEN 10 mg/dl (7-18); BUN/CREATININE RATIO 15.1 (10-20); CREATININE 0.69 mg/dl (0.60-1.20); GLUCOSE 112 mg/dl (70-99)
[2017-02-21 18:17] LABS: ALT/SGPT 22 U/L (12-78); AST/SGOT 15 U/L (15-37); CALCIUM 9.5 mg/dl (8.5-10.1); CARBON DIOXIDE 32 mmol/L (21-32); CHLORIDE 99 mmol/L (98-107); POTASSIUM 4.7 mmol/L (3.5-5.1); SODIUM 137 mmol/L (136-145)
[2017-02-21 18:18] LABS: ALB/GLOB RATIO 0.7 (0.9-2); ALKALINE PHOSPHATASE 72 U/L (45-117)
== END | disposition home or self-care (01) ==
LOC: C.LABMFLN 15:53
PROVIDERS: ATTEND Physician Assistant
DX: J47.9 Bronchiectasis, uncomplicated (principal); J96.10 Chronic respiratory failure, unspecified whether with hypoxia or hypercapnia

== ENCOUNTER 2017-02-25 07:25 | Day surgery (SDC) | payer OTHER ==
--- NOTE | 2017-02-23 17:01 | HISTORY & PHYSICAL EXAMINATION ---
DATE OF ADMISSION: 02/25/2017 For bronchoscopy scheduled for 02/25/2017. HISTORY OF PRESENT ILLNESS: A 56-year-old female followed closely in outpatient office most recently for recent hospital admission with acute on chronic hypoxic exacerbation of bronchiectasis. PAST MEDICAL HISTORY: Most relevant includes bronchiectasis (+ vibration vest), frequent hospitalizations for acute on chronic respiratory failure (01/02/10, June 22, January 2014, March 2014, June 2014, July 2014, August 2014, September 2014, October 2014, February 2016, and June 2016), multiple bronchoscopies (plus Stenotrophomonas maltophilia: 01/08/2014, 01/02/2015, 10/21/2014, 11/19/2014, February 2016, May 2016, July 2016, August 2016, August 2016, November 2016, hemophilus influenza: 06/09/2014, corynebacterium pseudodiphtheriticum 08/15/2014, Staphylococcus 11/19/2014, MAURICIO, Stenotrophomonas Xanthomonas June 30 - sputum, acinetobacter raumanni January 2017), blood cultures March 2016 plus coag negative staph (seen by ID), oxygen dependence: 2-3 LPM, sleep apnea (on Trilogy NIV at bedtime), pulmonary nodules, C. diff colitis, bilateral eustachian tube dysfunction, steroid-induced diabetes, hypogammaglobulinemia on IVIG. The patient has been followed for several years for frequent exacerbation of bronchiectasis. She did undergo multiple bronchoscopies [id number]. She receives IVIG through [facility] in conjunction with initiation of Trilogy at bedtime and following initially did quite well. Beginning June 2016 she has to struggle significantly with recurrent hypoxic exacerbation of her bronchiectasis. Sputum cultures have consistently grown Stenotrophomonas Xanthomonas - quinolone resistant despite multiple courses of Bactrim. She was admitted to [facility] June 2016 and then more recently to [facility] July 2016, September 2016, and November 2016 and more recently January 2017 with exacerbation. During her admission November 2016 ID was consulted for Stenotrophomonas and no further treatment was recommended. This is felt to be colonization. She had been scheduled for bronchoscopy earlier this month; however, unfortunately her symptoms resurged acutely and she was admitted to [facility] 01/15/2017 to 01/20/2017 with admission to the ICU and transferred out 01/17/2017. She was treated with IV steroids, bronchodilators, piptazobactam, and levofloxacin. Sputum culture grew acinetobacter baumannii (sensitive to Bactrim) and her antimicrobial regimen was transitioned. She felt improved post discharge but since that time she reports progressive increase in chest congestion. Outpatient office 02/01/2017 she denied fevers, chills or chest pain but did report some wheezing. She was compliant with her oxygen and respiratory medications as prescribed. PAST MEDICAL HISTORY: 1. Anxiety. 2. Bronchiectasis. 3. Chronic respiratory failure. 4. Conductive hearing loss. 5. Dependence on supplemental oxygen. 6. Depression. 7. Diabetes mellitus. 8. Eustachian tube dysfunction. 9. Dyslipidemia. 10. Hypersplenism. 11. Hypogammaglobulinemia. 12. Infection with Stenotrophomonas maltophilia resistant to multiple drugs. 13. Obesity. 14. Obstructive sleep apnea. 15. Sinus tachycardia. 16. Bloodstream infection secondary to Port-A-Cath. 17. Pneumonia. 18. History of Mycobacterium avium intracellulare complex. PAST SURGICAL HISTORY: 1. Adenoidectomy. 2. section. 3. Ear surgery. 4. Hysterectomy. 5. Repair of congenital atrial septal defect. 6. Sinus surgery. 7. Tonsillectomy. FAMILY HISTORY: 1. Cervical cancer. 2. Ovarian cancer. 3. Aneurysm of the abdominal aorta. 4. Non-Hodgkin lymphoma. 5. Pulmonary embolism. SOCIAL HISTORY: 1. Denies alcohol use. 2. The patient is a lifelong nonsmoker. CURRENT MEDICATIONS: 1. Ipratropium bromide 0.2% inhalation solution: Inhale 1 unit dose nebulizer mixed with one-half dose of albuterol every 4 hours as needed for dyspnea. 2. Saline solution: Use 1 vial via nebulizer every 3-4 hours as needed to aid in expectoration. 3. Albuterol sulfate 2.5 mg per 3 mL inhalation nebulizer solution 0.082%: Use one-half unit dose in nebulizer ipratropium every 4 hours as needed for dyspnea and wheeze. 4. Aspirin 81 mg oral tablet delayed release: Take 1 tablet daily. 5. Hydrocortisone 5 mg oral tablet: Take 3 tablets in the morning and 1 tablet 8 hours later and double the dose if thick, stressed or undergoing surgery. Insulin syringe. 6. Novolin 100 units per mL subcutaneous suspension: Inject 10 units in the morning and increased up to 20 units daily. 7. Calcium 600+ D 600/400 mg unit oral tablet: Take 1 tablet twice daily. 8. Flonase 50 mcg HCT suspension: Use 2 sprays in each nostril once daily. 9. Folic acid 1 mg tablet: Take 1 tablet daily. 10. Lopressor 50 mg oral tablet: Take 1 tablet twice daily. 11. Magnesium oxide 400 mg oral tablet: Take 1 tablet twice daily. 12. Mucinex D 120/1200 mg: Take 1 tablet every 12 hours daily. 13. Prednisone 10 mg oral tablet: Take with taper as described. 14. Vitron C 65/125 mg oral tablet: Take 1 tablet daily. ALLERGIES: No known drug allergies. REVIEW OF SYSTEMS: CONSTITUTIONAL: Positive for feeling poorly, but denies fevers, chills or fatigue. EYES: Negative. EARS, NOSE, THROAT: As noted in HPI. Denies pharyngitis, nasal discharge or local hoarseness. CARDIOVASCULAR: Denies chest pain, tachycardia, palpitations, or peripheral edema. RESPIRATORY: Positive for cough and dyspnea on exertion but as noted in HPI. Denies wheezing. GASTROINTESTINAL: Negative. MUSCULOSKELETAL: Positive arthralgias and myalgias. INTEGUMENTARY: Negative. HEMATOLOGIC/LYMPHATIC: Negative. PHYSICAL EXAMINATION: CONSTITUTIONAL: Well-developed, well-nourished, obese, pleasant female. No acute distress. HEAD: Positive facial symmetry, oxygen via nasal cannula in place. EYES: EOMI, disconjugate gaze, PERRLA, plus corrective lenses without conjunctival injection. MOUTH: Palate Mallampati 3. No erythema or exudate. Small posterior pharyngeal opening. THROAT: Trachea midline without palpable adenopathy. RESPIRATORY: Nonlabored respirations. Breath sounds present throughout. Wheeze and moderate rales auscultated throughout. CARDIOVASCULAR: Regular rate and rhythm. No murmur appreciated. +2 radial pulses, less than 1 second capillary refill distally. Negative Homans sign. No calf tenderness. MUSCULOSKELETAL: Extremities moving symmetrically without peripheral edema. NEUROLOGIC: Alert and oriented x3 with appropriate affect, height 5 foot 4 inches, weight 168 pounds, respiratory rate 22, temperature 98.4 degrees Fahrenheit. Oral oxygen saturation 91% on nasal cannula -- 3 LPM, heart rate 85 beats per minute, blood pressure 118/80 left upper extremity sitting. DISCUSSION AND SUMMARY: A 56-year-old female seen in the outpatient office for continuation of care of underlying structural respiratory disease. She is oxygen dependent and compliant with her outpatient medications as well as nocturnal Trilogy ventilation device. Unfortunately, this year she has been admitted frequently with respiratory decompensation. She is noting some progression of her symptoms despite recent admission. Will proactively set her up with a bronchoscopy to lavage and alleviate mucoid burden in hopes of avoiding recurrent admission. Followup post procedure.
[~2017-02-25] VITALS: Ht 160 cm; Wt 72.0 kg
[2017-02-25] VITALS (12 sets, daily range): BP systolic 99–116; BP diastolic 61–77; PULSE 77–98; TEMP 36.4–37; O2SAT 92–97; Ht 160 cm; Wt 72.0 kg
[~2017-02-25 07:25] MED LIST changes: -vitamin c PO
[2017-02-25] MEDS ORDERED: vitamin c PO (08:34)
--- NOTE | 2017-02-25 09:05 | Procedure Note ---
Pre-Mod Sedation Assessment General Date of Moderate Sedation: Feb 25, 2017. Vital Signs: Vital Signs Past 12 Hours Date Time Temp Pulse Resp B/P (MAP) Pulse Ox O2 Delivery O2 Flow Rate FiO2 02/25/17 08:47 36.4 89 20 100/77 94 Nasal Cannula 2.0 02/25/17 08:09 36.4 89 20 100/77 (85) 94 Nasal Cannula 2 Review Cardiovascular: regular rate, rhythm, no edema, no gallop, no JVD, no murmur Abdomen: normal bowel sounds, non tender, soft, no organomegaly, no pulsatile mass Lungs: chest non-tender, + rhonchi Pre-Sedation Airway Assessment Oral Cavity: WNL Able to Visualize Vocal Cords: Yes Short Thick Neck: Yes Hx of Sleep Apnea: Yes Smoking Status: Never Smoker Mallampati Classification: Class III ASA Classification: Class II Procedure Planning Contraindications-for Mod Sed: None Yes Notes The planned sedation has been discussed with the patient and consent obtained. I have identified the patient, determined the appropriateness of sedation and have assessed the patient immediately prior to the procedure. All medicine(s) and interventions are by my order.
--- NOTE | 2017-02-25 09:51 | Bronchoscopy Procedure Note ---
Bronchoscopy Procedure Note Procedure: Bronchoscopy, conscious sedation, bronchial lavage of the lingula Consent: Obtained through the patient placed into the chart Pre-procedural diagnosis: Chronic bronchiectasis with acute flare Post-procedural diagnosis: Chronic acute flare Start time: 929 End time: 942 Total time: 13 minutes Analgesia: 2% liquid lidocaine: Via nebulizer 4% gel lidocaine: Via right naris 2% liquid lidocaine: Via bronchoscopy Sedation: Versed IV: 2 mg Fentanyl IV: 50 g Procedure: The Olympus video bronchoscope was used for this procedure and passed down through the right naris Right naris/posterior naris/posterior oropharynx: Diffuse erythema and notable mucous plugging in the posterior naris oropharynx in the right naris, erythema with cobblestoning posterior oropharynx Glottis: Anatomically within normal limits Vocal cords: Proper abduction and abduction, anatomically within normal limits, erythema noted around the false vocal cords Subglottis/trachea/Opal: Anatomically within normal limits Right bronchial tree: Right mainstem bronchus: Anatomically within normal limits Right upper lobe: Anatomically within normal limits Bronchus intermedius: Anatomically within normal limits Right middle lobe: Anatomically within normal limits Right lower lobe: Anatomically within normal limits Findings: No significant findings noted Left bronchial tree: Left mainstem bronchus: Anatomically within normal limits Left upper lobe: Anatomically within normal limits Lingula: Anatomically within normal limits, diffuse mucous plugs noted at the entrance Left lower lobe: Anatomically within normal limits Findings: No significant findings noted Bronchial alveolar lavage: Lingula EBL: None Complications: None Follow-up: ASU
--- NOTE | 2017-02-25 09:51 | Procedure Note ---
Post-Moderate Sedation Plan General Date of Moderate Sedation Feb 25, 2017. Vital Signs: Vital Signs Past 12 Hours Date Time Temp Pulse Resp B/P (MAP) Pulse Ox O2 Delivery O2 Flow Rate FiO2 02/25/17 09:00 89 20 105/74 94 Nasal Cannula 2.0 02/25/17 08:47 36.4 89 20 100/77 94 Nasal Cannula 2.0 02/25/17 08:09 36.4 89 20 100/77 (85) 94 Nasal Cannula 2 Review - Discharge Plan Post Moderate Sedation Plan: On clinical assessment, the patient appears to have tolerated the conscious sedation without complications. Patient is recovering as anticipated. Patient will continue to be monitored by nursing and may be discharged when conscious sedation discharge criteria are met.
--- NOTE | 2017-02-25 09:53 | Discharge Instructions ---
Discharge Instructions Date of Service Feb 25, 2017. Admission Reason for Admission: Chronic Respitory Failure, Bronchiectisis Discharge Discharge Diagnosis / Problem: chronic bronchiectasis with acute flare Discharge Goals Goal(s): Improve function, Diagnostic testing Activity Recommendations Activity Limitations: resume your previous activity . Instructions / Follow-Up Instructions / Follow-Up Follow-up in the pulmonary division Current Hospital Diet Patient's current hospital diet: Discharge Diet Recommended Diet: Regular Diet Procedures Procedures Performed: Bronchoscopy, bronchial lavage and conscious sedation Pending Studies Studies pending at discharge: no Laboratory Results Hemoglobin A1c Test 01/16/17 05:33 Range/Units Estimated Average Glucose 134 mg/dl Hemoglobin A1c 6.3 H 4.5-5.6 % Medical Emergencies . Who to Call and When: Medical Emergencies: If at any time you feel your situation is an emergency, please call 911 immediately. . Non-Emergent Contact Non-Emergency issues call your: Agricultural Extension Officer . . "Provider Documentation" section prepared by Regino Villalta. . VTE Core Measure Inpt VTE Proph given/why not?: Treatment not indicated
[2017-02-25] MEDS ORDERED: NURSING VERBAL MED ORDER ONE (10:00)
[2017-02-25] MEDS ORDERED: MIDAZOLAM HCL 5 MG/ML 1 ML VIAL IV ONE (10:15)
[2017-02-25] MEDS ORDERED: FENTANYL CITRATE INJ 50 MCG/1 ML 2 ML VIAL IV ONE (10:15)
== END 2017-02-25 12:40 | disposition home or self-care (01) ==
LOC: C.ACU 07:25
PROVIDERS: ATTEND Internal Medicine Critical Care Medicine
DX: J47.9 Bronchiectasis, uncomplicated (principal); E11.9 Type 2 diabetes mellitus without complications; E78.5 Hyperlipidemia, unspecified; G47.33 Obstructive sleep apnea (adult) (pediatric); F41.9 Anxiety disorder, unspecified; Z99.81 Dependence on supplemental oxygen; E66.9 Obesity, unspecified; Z90.89 Acquired absence of other organs; Z98.890 Other specified postprocedural states; Z90.710 Acquired absence of both cervix and uterus; Z80.41 Family history of malignant neoplasm of ovary; Z80.49 Family history of malignant neoplasm of other genital organs; Z80.7 Family history of other malignant neoplasms of lymphoid, hematopoietic and related tissues; Z82.49 Family history of ischemic heart disease and other diseases of the circulatory system; Z79.82 Long term (current) use of aspirin; Z79.4 Long term (current) use of insulin; Z79.899 Other long term (current) drug therapy

== ENCOUNTER 2017-03-16 22:54 | Inpatient (IN) | payer OTHER ==
[~2017-03-16] VITALS: Ht 160 cm; Wt 72.6 kg
[~2017-03-16 22:54] MED LIST changes: +PANT1TAB3 PO; -PANT1TAB48 PO; -PRED10TA PO; -SULF-183 PO; +vitamin c PO
[2017-03-16] MEDS ORDERED: ALBUT/IPRATROP 3MG/0.5MG NEB 3 ML VIAL INH STA (23:11)
[2017-03-16] MEDS ORDERED: METHYLPREDNISOLONE 125 MG VIAL IV STA (23:11)
[2017-03-16] MEDS ORDERED: LEVAQUIN 750MG / 150ML D5W IV STA (23:11)
[2017-03-16] MEDS ORDERED: PIPERACILLIN/TAZOBACTAM 4.5 GM/100ML D5W IV STA (23:11)
[2017-03-16] MEDS ORDERED: ASCO500C43 PO (23:39)
[2017-03-16] MEDS ORDERED: HYDR5TAB57 PO (23:40)
[2017-03-16 23:58] LABS: BASO % 0.3 %; BASO ABS # 0.04 K/uL (0-0.2); COMPLETE YES; EOS % 4.9 %; HEMATOCRIT 34.2 % (37-47); IG% 0.2 %; LYMPH % 14.1 %; LYMPH ABS # 1.62 K/uL (1.2-3.4); MEAN CELL VOLUME 84.7 fL (80-100); MEAN CORPUSCULAR HEMOGLOBIN 26.5 pg (25-34); MEAN CORPUSCULAR HGB CONC 31.3 g/dl (32-36); MEAN PLATELET VOLUME 8.9 fL (7.4-10.4); MONO % 5.3 %; NEUT % 75.2 %; PLATELET COUNT 218 K/uL (130-400); RED BLOOD COUNT 4.04 M/uL (4.2-5.4); WHITE BLOOD COUNT 11.46 K/uL (4.8-10.8)
[2017-03-17] VITALS (12 sets, daily range): BP systolic 121–147; BP diastolic 69–80; PULSE 74–132; TEMP 36.7–37; O2SAT 94–99; Ht 160 cm; Wt 72.6 kg
[2017-03-17 00:10] LABS: PARTIAL THROMBOPLASTIN RATIO 1.1; PROTHROMBIN TIME (PATIENT) 10.2 SECONDS (9.0-12.0)
[2017-03-17 00:15] LABS: ALT/SGPT 16 U/L (12-78); AST/SGOT 15 U/L (15-37); BLOOD UREA NITROGEN 16 mg/dl (7-18); BUN/CREATININE RATIO 24.5 (10-20); CALCIUM 9.1 mg/dl (8.5-10.1); CARBON DIOXIDE 32 mmol/L (21-32); CHLORIDE 97 mmol/L (98-107); CREATININE 0.66 mg/dl (0.60-1.20); GLUCOSE 103 mg/dl (70-99); MAGNESIUM 2.1 mg/dl (1.8-2.4); POTASSIUM 4.2 mmol/L (3.5-5.1); SODIUM 133 mmol/L (136-145)
[2017-03-17 00:20] LABS: ALB/GLOB RATIO 0.6 (0.9-2); ALKALINE PHOSPHATASE 72 U/L (45-117)
[2017-03-17] MEDS ORDERED: ALBUT/IPRATROP 3MG/0.5MG NEB 3 ML VIAL INH ONE (00:30)
--- NOTE | 2017-03-17 00:43 | History and Physical ---
History & Physical Date & Time of Service: Mar 17, 2017 at 00:43 Chief Complaint: Trouble Breathing,Tight Chest,Chest Pain Primary Care Physician: Ivonne Subramanian History of Present Illness Source: patient, family Patient is a 56 yr female with PMH of Bronchiectasis, chronic respiratory failure and Oxygen dependent, DM II, Hypogammaglobulinemia and other problems presents with history of worsening cough with expectoration, SOB on exertion and associated chest tightness since 2 days ago. Patient's family reports that patient has not been doing well since last 2 days and symptoms have been progressively worsening. Patient's daughter reports that she uses 2L of oxygen at rest and 4L with exertion and today she noted her oxygen saturations to be in 70s and so brought to ED for further evaluation. Patient also reports chronic joint pain but noted that her left arm is more painful today, denies any numbness, tingling, trauma. Also reports nausea but no vomiting. Patient denies any history of fever, chills, hemoptysis, wheezing, headache, dizziness, abd pain, diarrhea, dysuria, palpitations, change in appetite. She follows with for Pulmonary issues and had bronchoscopy on Feb 25, 2017. Denies any other relevant history. Past Medical/Surgical History Medical Problems: (1) Anxiety Status: Chronic (2) Asthma Status: Chronic (3) Chronic respiratory failure Status: Chronic (4) COPD exacerbation Status: Resolved (5) Depression Status: Chronic (6) Diabetes Status: Chronic (7) Emphysema Status: Resolved (8) GERD (gastroesophageal reflux disease) Status: Chronic (9) Hyperlipidemia Status: Chronic (10) Hypogammaglobulinemia Status: Chronic (11) Idiopathic bronchiectasis Status: Chronic (12) Immunodeficiency Status: Chronic (13) Mild pulmonary hypertension Status: Chronic (14) BILL (obstructive sleep apnea) Status: Chronic (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 Permanent Comment: 2L Status: Chronic (16) Pneumonia Status: Resolved (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 (18) Tachycardia Status: Chronic Surgical Problems: (1) H/O atrial septal defect repair Status: Resolved (2) H/O: hysterectomy Status: Resolved (3) History of hysterectomy Status: Resolved (4) History of myringotomy Status: Resolved (5) Hx of appendectomy Status: Resolved (6) Hx of cholecystectomy Status: Resolved (7) Hx of tympanostomy tubes Status: Resolved (8) S/P bronchoscopy Status: Resolved (9) S/P section Status: Chronic (10) S/P sinus surgery Status: Resolved (11) S/P tonsillectomy and adenoidectomy Status: Resolved Family History Asthma SISTER Cancer SISTER FATHER MOTHER Diabetes mellitus Gallbladder disease Heart disease Hypertension FATHER Kidney disease Kidney stones Lung disease Reviewed as above Social History Smoking Status: Never Smoker Alcohol Use: none Drug Use: none Marital Status: single Housing status: lives alone Occupational Status: other Immunizations History of Influenza Vaccine: Yes Influenza Vaccine Date: Mar 14, 2015 History of Tetanus Vaccine?: Yes Tetanus Immunization Date: Jun 16, 2010 History of Pneumococcal: Yes Pneumococcal Date: Sep 22, 2010 History of Hepatitis B Vaccine: Unknown Multi-Drug Resistant Organisms History of MDRO: No Allergies Coded Allergies: Albuterol (Verified Adverse Reaction, Mild, CHEST PAIN, LEVALBUTEROL OK, 03/16/17) PT STATES "IF TAKE TOO MUCH DEVELOPS CHEST PAIN". TOLERATE LEVALBUTEROL 04/2015 Home Medications Scheduled Alendronate Sodium (Alendronate Sodium), 70 MG PO Ascorbic Acid (Vitamin C 500 mg), 500 MG PO DAILY Aspirin (Aspirin Chewable), 81 MG PO QAM Calcium Carbonate-Vitamin D W/ (Caltrate 600 Plus), 1 TAB PO BID Cyanocobalamin (Vitamin B12), 1,000 MCG PO DAILY Ferrous Sulfate (Ferrous Sulfate), 325 MG PO DAILY Fluticasone Propionate (Nasal) (Flonase Allergy Relief), 2 SPRY ESPERANZA QAM Folic Acid (Folic Acid), 1 MG PO QAM Home O2 Therapy (Oxygen), 4 LITERS NA DAILY Hydrocortisone (Cortef), 12.5 MG PO DAILY Insulin Human NPH (Novolin N), 10 UNITS SQ QAM Magnesium Oxide (Mg Supplement (Magnesium), 400 MG PO DAILY Metoprolol Tartrate (Lopressor) (Lopressor), 1 TAB PO BID Multiple Vitamin (Multivitamin), 1 TAB PO QAM Pantoprazole (Protonix), 40 MG PO QAM Probiotic Product (Probiotic), 1 CAP PO DAILY Scheduled PRN Albuterol Sulf (Albuterol Sulfate), 1 DOSE INH Q4H PRN for Shortness of Breath Dextromethorphan-Guaifenesin (Mucinex Dm Maximum Streng), 1 TAB PO BID PRN for Nasal Congestion Review of Systems See HPI for pertinent positives & negatives. A total of 10 systems reviewed and were otherwise negative. Physical Exam Vital Signs Date Time Temp Pulse Resp B/P (MAP) Pulse Ox O2 Delivery O2 Flow Rate FiO2 03/16/17 23:54 99 Nasal Cannula 3.0 03/16/17 23:21 122 03/16/17 23:01 123 22 143/96 96 Nasal Cannula 3.0 03/16/17 23:01 Room Air General Appearance: WD/WN, + pertinent finding (Mild respiratory distress) Head: normocephalic, atraumatic Eyes: normal inspection, PERRL, EOMI, sclerae normal ENT: normal ENT inspection, hearing grossly normal Neck: supple, trachea midline Respiratory/Chest: chest non-tender, no accessory muscle use, + decreased breath sounds, + pertinent finding (Coarse breath sounds, scattered Rhonchi and Wheezes) Cardiovascular: regular rate, rhythm, no edema, + tachycardia Abdomen/GI: normal bowel sounds, non tender, soft Back: normal inspection Extremities/Musculoskelatal: normal inspection, no pedal edema Neurologic/Psych: cyber policy and strategy planner II-XII nml as tested, no motor/sensory deficits, alert, normal mood/affect, oriented x 3 Skin: normal color, warm/dry Diagnostics Laboratory Results Results Past 24 Hours Test 03/16/17 23:20 03/16/17 23:44 03/16/17 23:45 03/16/17 23:48 Range/Units Influenza Type A Antigen Neg for Influ A NEG Influenza Type B Antigen Neg for Influ B NEG White Blood Count 11.46 4.8-10.8 K/uL Red Blood Count 4.04 4.2-5.4 M/uL Hemoglobin 10.7 12.0-16.0 g/dL Hematocrit 34.2 37-47 % Mean Corpuscular Volume 84.7 80-100 fL Mean Corpuscular Hemoglobin 26.5 25-34 pg Mean Corpuscular Hemoglobin Concent 31.3 32-36 g/dl Platelet Count 218 130-400 K/uL Mean Platelet Volume 8.9 7.4-10.4 fL Neutrophils (%) (Auto) 75.2 % Lymphocytes (%) (Auto) 14.1 % Monocytes (%) (Auto) 5.3 % Eosinophils (%) (Auto) 4.9 % Basophils (%) (Auto) 0.3 % Neutrophils # (Auto) 8.61 1.4-6.5 K/uL Lymphocytes # (Auto) 1.62 1.2-3.4 K/uL Monocytes # (Auto) 0.61 0.11-0.59 K/uL Eosinophils # (Auto) 0.56 0-0.5 K/uL Basophils # (Auto) 0.04 0-0.2 K/uL RDW Standard Deviation 49.0 36.4-46.3 fL RDW Coefficient of Variation 15.8 11.5-14.5 % Immature Granulocyte % (Auto) 0.2 % Immature Granulocyte # (Auto) 0.02 0.00-0.02 K/uL Prothrombin Time 10.2 9.0-12.0 SECONDS Prothromb Time International Ratio 1.0 0.9-1.1 Activated Partial Thromboplast Time 28.5 21.0-31.0 SECONDS Partial Thromboplastin Ratio 1.1 Sodium Level 133 136-145 mmol/L Potassium Level 4.2 3.5-5.1 mmol/L Chloride Level 97 98-107 mmol/L Carbon Dioxide Level 32 21-32 mmol/L Anion Gap 4.0 3-11 mmol/L Blood Urea Nitrogen 16 7-18 mg/dl Creatinine 0.66 0.60-1.20 mg/dl Est Creatinine Clear Calc Drug Dose 93.6 ml/min Estimated GFR () 115.3 Estimated GFR (Non- 99.4 BUN/Creatinine Ratio 24.5 10-20 Random Glucose 103 70-99 mg/dl Calcium Level 9.1 8.5-10.1 mg/dl Magnesium Level 2.1 1.8-2.4 mg/dl Total Bilirubin 0.4 0.2-1 mg/dl Aspartate Amino Transf (AST/SGOT) 15 15-37 U/L Alanine Aminotransferase (ALT/SGPT) 16 12-78 U/L Alkaline Phosphatase 72 45-117 U/L Troponin I < 0.015 0-0.045 ng/ml Total Protein 8.6 6.4-8.2 gm/dl Albumin 3.3 3.4-5.0 gm/dl Globulin 5.3 2.5-4.0 gm/dl Albumin/Globulin Ratio 0.6 0.9-2 Bedside Troponin I < 0.030 0-0.045 ng/ml Bedside Lactic Acid Venous 0.45 0.90-1.70 mmol/L Microbiology Results 03/16/17 Blood Culture, Received Pending 03/16/17 Blood Culture, Received Pending Diagnostic Radiology CXR: pending EKG EKG: Sinus Tachycardia, Short [place], Nonspecific ST-T wave changes (Unchanged from Prior EKG Impression Assessment and Plan Acute on Chronic Respiratory failure: Secondary to Exacerbation of Bronchiectasis: Mild leukocytosis, Normal lactate levels CXR:pending Start on Broad spectrum Abx Recently completed PO Bactrim as outpatient Bronchoscopy on Feb 25: Grew Acinetobacter which was treated during Prior admission Get Blood/Sputum cultures IV solumedrol, DuoNeb Consult Pulmonology May need ID consult based on cultures BiPAP PRN, oxygen support EKG: unchanged from prior Trend cardiac enzymes Repeat EKG in AM DM II: Last A1C:6.3 on 01/16/17 ISS, Monitor BS Hypogammaglobulinemia: Gets monthly Injection: last dose on 2016 on chronic hydrocortisone: will hold as on IV Solu-medrol Sinus Tachycardia: Likely secondary to Nebs monitor DVT Px: Lovenox SQ Code Status: Full Code Disposition: Monitor in Tele
[2017-03-17 00:51] LABS: INFLUENZA A PCR Neg for Influ A (NEG); INFLUENZA B PCR Neg for Influ B (NEG)
[2017-03-17] MEDS ORDERED: GLUCOSE 40% GEL 15 GM TUBE PO PRN (01:15)
[2017-03-17] MEDS ORDERED: ONDANSETRON INJ 2 MG/ML 2 ML VIAL IV PRN (01:15)
[2017-03-17] MEDS ORDERED: DEXTROSE 50% 50 ML SYR IV PRN (01:15)
[2017-03-17] MEDS ORDERED: ACETAMINOPHEN 325 MG TAB PO PRN (01:15)
[2017-03-17] MEDS ORDERED: GLUCAGON FOR INJ 1 MG VIAL SQ PRN (01:15)
[2017-03-17] MEDS ORDERED: GLUCOSE 10 TABS/TUBE PO PRN (01:15)
--- NOTE | 2017-03-17 01:33 | EMERGENCY ROOM VISIT NOTE ---
ED Visit Note First contact with patient: 23:01 Pt seen and examined at bedside. Patient with known bronchiectasis and here previously with similar exacerbations. She and improved with nebulizer treatment here, given additional steroids also. Patient admitted for continued evaluation and treatment. Patient aware of all results and plan. Vital signs stable.
[2017-03-17] MEDS ORDERED: PIPERACILL/TAZOBAC CONSULT ACTIVE PRN (04:28)
[2017-03-17] MEDS ORDERED: LEVOFLOXACIN CONSULT ACTIVE PRN (04:30)
[2017-03-17] MEDS ORDERED: PIPERACILL/TAZOBAC IV 3.375 GM in DEXTROSE 5% 100ML IV SCH (06:00)
--- NOTE | 2017-03-17 06:38 | DIAGNOSTIC IMAGING REPORT ---
CHEST ONE VIEW PORTABLE CLINICAL HISTORY: Sepsis COMPARISON STUDY: 01/15/2017 FINDINGS: The cardiac images so contours remain stable. The right-sided A-Port catheter remains unchanged in position. There are diffuse bilateral reticulonodular pulmonary airspace opacities. There are no significant pleural effusions. Bronchiectasis is again suspected.[ IMPRESSION: 1. Persistent bronchiectasis with diffuse bilateral reticulonodular opacities. No significant change from the preceding study Electronically signed by: Joshua Sanders M.D. 03/17/2017 6:37 AM Dictated Date/Time: 03/17/2017 6:35 AM
--- NOTE | 2017-03-17 07:12 | EMERGENCY ROOM VISIT NOTE ---
History First contact with patient: 23:01 Chief Complaint: CHEST PAIN Stated Complaint: RESPIRATORY FAILURE, [id number] Nursing Triage Summary: Patient presents to ED via WC for evaluation. Patient c/o left sided chest pain with radiation down left arm. Associates SOB. History of Present Illness The patient is a 56 year old female who presents to the Emergency Room with complaints of chest pain, shortness of breath with increasing productive cough for the past week that steadily getting worse with chronic ongoing left arm pain. Patient has bronchiectasis. She follows with Dr. Villalta. Patient states her recent bronchoscopy was stable. She's got her flu shot. Patient complains of subjective fever and chills without temperature taken. Patient denies abdominal pain, sore throat, vomiting, diarrhea, leg pain or swelling. Review of Systems See HPI for pertinent positives & negatives. A total of 10 systems reviewed and were otherwise negative. Past Medical/Surgical History Medical Problems: (1) Anxiety (2) Asthma (3) Chronic respiratory failure (4) COPD exacerbation (5) Depression (6) Diabetes (7) Emphysema (8) GERD (gastroesophageal reflux disease) (9) Hyperlipidemia (10) Hypogammaglobulinemia (11) Idiopathic bronchiectasis (12) Immunodeficiency (13) Mild pulmonary hypertension (14) BILL (obstructive sleep apnea) (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 (16) Pneumonia (17) Respiratory failure (18) Respiratory failure, [id number] (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 (20) Tachycardia Surgical Problems: (1) H/O atrial septal defect repair (2) H/O: hysterectomy (3) History of hysterectomy (4) History of myringotomy (5) Hx of appendectomy (6) Hx of cholecystectomy (7) Hx of tympanostomy tubes (8) S/P bronchoscopy (9) S/P section (10) S/P sinus surgery (11) S/P tonsillectomy and adenoidectomy Family History Asthma SISTER Cancer SISTER FATHER MOTHER Diabetes mellitus Gallbladder disease Heart disease Hypertension FATHER Kidney disease Kidney stones Lung disease Social History Smoking Status: Never Smoker Alcohol Use: none Drug Use: none Marital Status: single Occupation Status: other Current/Historical Medications Scheduled Alendronate Sodium (Alendronate Sodium), 70 MG PO Ascorbic Acid (Vitamin C 500 mg), 500 MG PO DAILY Aspirin (Aspirin Chewable), 81 MG PO QAM Calcium Carbonate-Vitamin D W/ (Caltrate 600 Plus), 1 TAB PO BID Cyanocobalamin (Vitamin B12), 1,000 MCG PO DAILY Ferrous Sulfate (Ferrous Sulfate), 325 MG PO DAILY Fluticasone Propionate (Nasal) (Flonase Allergy Relief), 2 SPRY ESPERANZA QAM Folic Acid (Folic Acid), 1 MG PO QAM Home O2 Therapy (Oxygen), 4 LITERS NA DAILY Hydrocortisone (Cortef), 12.5 MG PO DAILY Insulin Human NPH (Novolin N), 10 UNITS SQ QAM Magnesium Oxide (Mg Supplement (Magnesium), 400 MG PO DAILY Metoprolol Tartrate (Lopressor) (Lopressor), 1 TAB PO BID Multiple Vitamin (Multivitamin), 1 TAB PO QAM Pantoprazole (Protonix), 40 MG PO QAM Probiotic Product (Probiotic), 1 CAP PO DAILY Scheduled PRN Albuterol Sulf (Albuterol Sulfate), 1 DOSE INH Q4H PRN for Shortness of Breath Dextromethorphan-Guaifenesin (Mucinex Dm Maximum Streng), 1 TAB PO BID PRN for Nasal Congestion Physical Exam Vital Signs Date Time Temp Pulse Resp B/P (MAP) Pulse Ox O2 Delivery O2 Flow Rate FiO2 03/17/17 01:07 119 22 130/69 98 Nebulizer 03/17/17 01:06 120 18 94 Nasal Cannula 2.0 03/16/17 23:54 99 Nasal Cannula 3.0 03/16/17 23:21 122 03/16/17 23:01 123 22 143/96 96 Nasal Cannula 3.0 03/16/17 23:01 Room Air Physical Exam VITALS: Vitals are noted on the nurse's note and reviewed by myself. Vital signs tachycardic. GENERAL: White female struggling to breathe with audible wheeze, in acute distress SKIN: The skin was without rashes, erythema, edema, or bruising. There is no tenting of the skin. Capillary reflex less than 2 seconds. HEAD: Normocephalic atraumatic. EARS: External auditory canals clear, tympanic membranes pearly nuñez without erythema or effusion bilaterally. EYES: Pupils equal round and reactive to light and accommodation. Conjunctivae without injection, sclerae without icterus. Extraocular movements intact. NOSE: Patent, turbinates without inflammation or discharge. MOUTH: Mucous membranes moist. Pharynx without erythema or exudate. Uvula midline. Airway patent. Tongue does not deviate. NECK: Supple without nuchal rigidity. No lymphadenopathy. No thyromegaly. Cervical spine is nontender. No JVD. HEART: Tachycardic rate and rhythm LUNGS: Diffuse inspiratory and end expiratory wheezes. No dullness to percussion. No retractions or accessory muscle use. ABDOMEN: Positive bowel sounds x 4. Normal tympanic percussion. Soft, nontender, without masses or organomegaly. Hummel sign negative. No guarding or rebound tenderness. MUSCULOSKELETAL: No muscle atrophy, erythema, or edema noted. NEURO: Patient was alert and oriented to person place and time. Normal sensation to light and sharp touch. No focal neurological deficits. Medical Decision & Procedures Laboratory Results Test 03/16/17 23:20 03/16/17 23:44 03/16/17 23:45 03/16/17 23:48 Influenza Type A (RT-PCR) Neg for Influ A (NEG) Influenza Type A Antigen Neg for Influ A (NEG) Influenza Type B Antigen Neg for Influ B (NEG) Influenza Type B (RT-PCR) Neg for Influ B (NEG) RDW Standard Deviation 49.0 fL (36.4-46.3) RDW Coefficient of Variation 15.8 % (11.5-14.5) White Blood Count 11.46 K/uL (4.8-10.8) Red Blood Count 4.04 M/uL (4.2-5.4) Hemoglobin 10.7 g/dL (12.0-16.0) Hematocrit 34.2 % (37-47) Mean Corpuscular Volume 84.7 fL (80-100) Mean Corpuscular Hemoglobin 26.5 pg (25-34) Mean Corpuscular Hemoglobin Concent 31.3 g/dl (32-36) Platelet Count 218 K/uL (130-400) Mean Platelet Volume 8.9 fL (7.4-10.4) Neutrophils (%) (Auto) 75.2 % Lymphocytes (%) (Auto) 14.1 % Monocytes (%) (Auto) 5.3 % Eosinophils (%) (Auto) 4.9 % Basophils (%) (Auto) 0.3 % Neutrophils # (Auto) 8.61 K/uL (1.4-6.5) Lymphocytes # (Auto) 1.62 K/uL (1.2-3.4) Monocytes # (Auto) 0.61 K/uL (0.11-0.59) Eosinophils # (Auto) 0.56 K/uL (0-0.5) Basophils # (Auto) 0.04 K/uL (0-0.2) Immature Granulocyte % (Auto) 0.2 % Immature Granulocyte # (Auto) 0.02 K/uL (0.00-0.02) Prothrombin Time 10.2 SECONDS (9.0-12.0) Prothromb Time International Ratio 1.0 (0.9-1.1) Activated Partial Thromboplast Time 28.5 SECONDS (21.0-31.0) Partial Thromboplastin Ratio 1.1 Est Creatinine Clear Calc Drug Dose 93.6 ml/min Total Bilirubin 0.4 mg/dl (0.2-1) Aspartate Amino Transf (AST/SGOT) 15 U/L (15-37) Alanine Aminotransferase (ALT/SGPT) 16 U/L (12-78) Alkaline Phosphatase 72 U/L (45-117) Total Protein 8.6 gm/dl (6.4-8.2) Albumin 3.3 gm/dl (3.4-5.0) Globulin 5.3 gm/dl (2.5-4.0) Albumin/Globulin Ratio 0.6 (0.9-2) Bedside Troponin I < 0.030 ng/ml (0-0.045) Bedside Lactic Acid Venous 0.45 mmol/L (0.90-1.70) Medications Administered Medications (Trade) Dose Ordered Sig/Man Route Start Time Stop Time Status Last Admin Dose Admin Albuterol/ Ipratropium (Duoneb) 3 ml NOW STAT INH 03/16/17 23:11 03/16/17 23:15 DC 03/16/17 23:46 3 ML Methylprednisolone Sodium Succinate (Solu-Medrol IV) 125 mg NOW STAT IV 03/16/17 23:11 03/16/17 23:15 DC 03/16/17 23:47 125 MG Piperacillin Sod/ Tazobactam Sod (Zosyn Iv) 4.5 gm NOW STAT IV 03/16/17 23:11 03/16/17 23:15 DC 03/16/17 23:47 4.5 GM Levofloxacin (Levaquin / D5W) 750 mg NOW STAT IV 12/6/17 23:11 03/16/17 23:15 DC 03/17/17 00:26 750 MG Albuterol/ Ipratropium (Duoneb) 12 ml ONE ONCE INH 03/17/17 00:30 03/17/17 00:31 DC 03/17/17 00:30 12 ML ED Course Prior records/ancillary studies reviewed. Triage Nursing notes reviewed. Additional history obtained from the family. The patient's history was concerning for respiratory difficulties. Differential diagnosis: Etiologies such as bronchiectasis exacerbation, infections, reactive airway disease, pneumonia, pneumothorax, COPD, CHF, cardiac ischemia, pulmonary embolism, musculoskeletal, gastrointestinal, as well as others were entertained. Physical examination: As above. ER treatment provided: Nebulizer, steroids, Zosyn, Levaquin On reassessment the patient felt better. Diagnostic interpretation by me: The electrocardiogram was poor baseline with normal sinus, minimal ST depression in the lateral leads, rate of 115. Impression sinus tachycardia with minimal ST depression in lateral leads most likely rate dependent The labs revealed leukocytosis. Negative troponin Imaging studies: Chest with persistent bronchiectasis with concerns for possible pneumonia without free air per my interpretation. Consultation: [facility] The [facility] was discussed and diagnostics were reviewed. The patient was evaluated in the ER for further treatment. This appears to be consistent with bronchiectasis exacerbation. Patient complains objective fever and chills and was quite short of breath and wheezy. She started on antibiotics and nebulizers. She had some improvement. She'll be evaluated by medicine for admission. By the evaluation outlined above emergent etiologies such as CHF, cardiac ischemia, pneumothorax, musculoskeletal, as well as others were deemed relatively unlikely. The pt informed about the findings as listed above. All questions were answered and pleased with the treatment. Case reviewed with my attending Medical Decision as above Medication Reconcilliation Current Medication List: was personally reviewed by me Blood Pressure Screening Patient's blood pressure: Normal blood pressure Impression Primary Impression: Idiopathic bronchiectasis Departure Information Dispostion Still a Patient Condition FAIR Referrals Ivonne Subramanian (PCP) Forms Call Back Authorization, HOME CARE DOCUMENTATION FORM, IMPORTANT VISIT INFORMATION Patient Instructions My [facility]
[2017-03-17] MEDS: ALBUT/IPRATROP 3MG/0.5MG NEB 3 ML VIAL INH SCH ×4 (07:20→19:36)
[2017-03-17] MEDS: FLUTICASONE PROPIONATE NA SPR 16 GM BTL NAE SCH (07:37)
[2017-03-17] MEDS: INSULIN ASPART 100 UNITS/ML 3 ML PEN SC SCH ×4 (07:37→20:19)
[2017-03-17] MEDS: ENOXAPARIN 40 MG/0.4 ML SYR SC SCH (07:38)
[2017-03-17] MEDS: PANTOprazole SOD 40 MG TAB PO SCH (07:38)
[2017-03-17] MEDS: METOPROLOL TARTRATE 50 MG TAB PO SCH ×2 (07:38→20:18)
[2017-03-17] MEDS: FERROUS SULFATE 325 MG TAB PO SCH (07:39)
[2017-03-17] MEDS: ASPIRIN 81 MG CHEW PO SCH (07:39)
[2017-03-17 07:52] LABS: BASO % 0.1 %; BASO ABS # 0.01 K/uL (0-0.2); COMPLETE YES; EOS % 0.1 %; HEMATOCRIT 31.7 % (37-47); IG% 0.3 %; LYMPH % 4.2 %; LYMPH ABS # 0.44 K/uL (1.2-3.4); MEAN CELL VOLUME 84.5 fL (80-100); MEAN CORPUSCULAR HEMOGLOBIN 26.1 pg (25-34); MEAN CORPUSCULAR HGB CONC 30.9 g/dl (32-36); MEAN PLATELET VOLUME 9.1 fL (7.4-10.4); MONO % 0.6 %; NEUT % 94.7 %; PLATELET COUNT 195 K/uL (130-400); RED BLOOD COUNT 3.75 M/uL (4.2-5.4); WHITE BLOOD COUNT 10.38 K/uL (4.8-10.8)
[2017-03-17 08:20] LABS: BUN/CREATININE RATIO 15.9 (10-20); CALCIUM 9.1 mg/dl (8.5-10.1); CREATININE 0.93 mg/dl (0.60-1.20); MAGNESIUM 2.1 mg/dl (1.8-2.4); POTASSIUM 4.2 mmol/L (3.5-5.1)
[2017-03-17] MEDS: METHYLPREDNISOLONE IV 40 MG in SYRINGE 0 ML IV SCH ×3 (08:50→23:33)
[2017-03-17] MEDS ORDERED: NON-FORMULARY MEDICATION SCH (11:00)
--- NOTE | 2017-03-17 11:04 | Progress Note ---
Medicine Progress Note Date & Time of Visit: Mar 17, 2017 at 10:50. Subjective Pt was seen and examined Lying in bed with no distress Pt said that her breathing seems to improved slightly She said that yesterday she was coughing a lot, but less today Denies any chest pain, palpitation, dizziness and fever Objective Last 8 Hrs Date Time Temp Pulse Resp B/P (MAP) Pulse Ox O2 Delivery O2 Flow Rate FiO2 03/17/17 08:02 37.0 98 18 121/69 (86) 95 Nasal Cannula 4.0 03/17/17 08:00 Nasal Cannula 4.0 03/17/17 07:21 109 16 96 Nasal Cannula 4.0 03/17/17 04:19 36.7 113 20 127/78 (94) 97 Nasal Cannula 4.0 03/17/17 04:00 97 Nasal Cannula 4.0 Physical Exam: General- no acute distress Head- atraumatic Eyes- PERRL, EOMI ENT- oropharynx clear Neck- supple, no JVD Lungs- Coarse BS Heart- Tachycardia Abdomen- normal bowel sounds, soft Extremities- no pretibial edema Neuro- alert, oriented x 3; PERRL, EOMI Skin- warm & dry Laboratory Results: Last 24 Hours Test 03/16/17 23:20 03/16/17 23:44 03/16/17 23:45 03/16/17 23:48 Influenza Type A (RT-PCR) Neg for Influ A Influenza Type A Antigen Neg for Influ A Influenza Type B Antigen Neg for Influ B Influenza Type B (RT-PCR) Neg for Influ B White Blood Count 11.46 K/uL Red Blood Count 4.04 M/uL Hemoglobin 10.7 g/dL Hematocrit 34.2 % Mean Corpuscular Volume 84.7 fL Mean Corpuscular Hemoglobin 26.5 pg Mean Corpuscular Hemoglobin Concent 31.3 g/dl Platelet Count 218 K/uL Mean Platelet Volume 8.9 fL Neutrophils (%) (Auto) 75.2 % Lymphocytes (%) (Auto) 14.1 % Monocytes (%) (Auto) 5.3 % Eosinophils (%) (Auto) 4.9 % Basophils (%) (Auto) 0.3 % Neutrophils # (Auto) 8.61 K/uL Lymphocytes # (Auto) 1.62 K/uL Monocytes # (Auto) 0.61 K/uL Eosinophils # (Auto) 0.56 K/uL Basophils # (Auto) 0.04 K/uL RDW Standard Deviation 49.0 fL RDW Coefficient of Variation 15.8 % Immature Granulocyte % (Auto) 0.2 % Immature Granulocyte # (Auto) 0.02 K/uL Prothrombin Time 10.2 SECONDS Prothromb Time International Ratio 1.0 Activated Partial Thromboplast Time 28.5 SECONDS Partial Thromboplastin Ratio 1.1 Sodium Level 133 mmol/L Potassium Level 4.2 mmol/L Chloride Level 97 mmol/L Carbon Dioxide Level 32 mmol/L Anion Gap 4.0 mmol/L Blood Urea Nitrogen 16 mg/dl Creatinine 0.66 mg/dl Est Creatinine Clear Calc Drug Dose 93.6 ml/min Estimated GFR () 115.3 Estimated GFR (Non- 99.4 BUN/Creatinine Ratio 24.5 Random Glucose 103 mg/dl Calcium Level 9.1 mg/dl Magnesium Level 2.1 mg/dl Total Bilirubin 0.4 mg/dl Aspartate Amino Transf (AST/SGOT) 15 U/L Alanine Aminotransferase (ALT/SGPT) 16 U/L Alkaline Phosphatase 72 U/L Troponin I < 0.015 ng/ml Total Protein 8.6 gm/dl Albumin 3.3 gm/dl Globulin 5.3 gm/dl Albumin/Globulin Ratio 0.6 Bedside Troponin I < 0.030 ng/ml Bedside Lactic Acid Venous 0.45 mmol/L Test 03/17/17 03:53 03/17/17 06:37 03/17/17 07:32 Bedside Glucose 279 mg/dl 269 mg/dl White Blood Count 10.38 K/uL Red Blood Count 3.75 M/uL Hemoglobin 9.8 g/dL Hematocrit 31.7 % Mean Corpuscular Volume 84.5 fL Mean Corpuscular Hemoglobin 26.1 pg Mean Corpuscular Hemoglobin Concent 30.9 g/dl Platelet Count 195 K/uL Mean Platelet Volume 9.1 fL Neutrophils (%) (Auto) 94.7 % Lymphocytes (%) (Auto) 4.2 % Monocytes (%) (Auto) 0.6 % Eosinophils (%) (Auto) 0.1 % Basophils (%) (Auto) 0.1 % Neutrophils # (Auto) 9.83 K/uL Lymphocytes # (Auto) 0.44 K/uL Monocytes # (Auto) 0.06 K/uL Eosinophils # (Auto) 0.01 K/uL Basophils # (Auto) 0.01 K/uL RDW Standard Deviation 48.6 fL RDW Coefficient of Variation 15.7 % Immature Granulocyte % (Auto) 0.3 % Immature Granulocyte # (Auto) 0.03 K/uL Sodium Level 132 mmol/L Potassium Level 4.2 mmol/L Chloride Level 96 mmol/L Carbon Dioxide Level 30 mmol/L Anion Gap 7.0 mmol/L Blood Urea Nitrogen 15 mg/dl Creatinine 0.93 mg/dl Est Creatinine Clear Calc Drug Dose 67.4 ml/min Estimated GFR () 80.2 Estimated GFR (Non- 69.2 BUN/Creatinine Ratio 15.9 Random Glucose 248 mg/dl Calcium Level 9.1 mg/dl Magnesium Level 2.1 mg/dl Troponin I 0.017 ng/ml Date/Time Source Procedure Growth Status 03/16/17 23:44 Blood Blood Culture Pending Received 03/16/17 23:33 Blood Blood Culture Pending Received 03/17/17 04:10 Sputum Expectorated Sputum Gram Stain - Final Resulted 03/17/17 04:10 Sputum Expectorated Sputum Sputum Culture Pending Resulted Assessment & Plan Acute on Chronic Respiratory failure Secondary to Bronchiectasis exacerbation Mild leukocytosis on admission CXR on admission showed persistent bronchiectasis with diffuse bilateral reticulonodular opacities S/P bronchoscopy on Feb 25 Grew Acinetobacter on last sputum cx Recently completed PO Bactrim as outpatient Case discussed with Pulm Sputum cx and blood cx pending Recommended pulmonary toilet, Mucomyst, steroid, Neb treatment Continue oxygen supplement ID consulted Starting on IV tigecycline D/C IV zosyn and Levaquin Continue monitor closely DM II: Last HbA1C:6.3 on 01/16/17 ISS, Monitor BS Hypogammaglobulinemia: Gets monthly Injection: last dose on 2016 on chronic hydrocortisone: will hold as on IV Solu-medrol Sinus Tachycardia Denies any chest pain Troponin negative EKG showed sinus tachy with no significant ST changes stable DVT Px: Lovenox SQ Code Status: Full Code Disposition: Monitor in Tele Consultants: Pulmonary ID Current Inpatient Medications: Current Inpatient Medications Medications (Trade) Dose Ordered Sig/Man Route Start Time Stop Time Status Last Admin Dose Admin Enoxaparin Sodium (Lovenox Inj) 40 mg Q24H SC 03/17/17 08:00 04/16/17 07:59 03/17/17 07:38 40 MG Acetaminophen (Tylenol Tab) 650 mg Q4H PRN PO 03/17/17 01:15 04/16/17 01:14 Ondansetron HCl (Zofran Inj) 4 mg Q6H PRN IV 03/17/17 01:15 04/16/17 01:14 Insulin Aspart (novoLOG ASPART) SLIDING SCALE If C... ACHS SC 03/17/17 07:00 04/16/17 06:59 03/17/17 07:37 4 UNITS Glucose (Glucose 40% Gel) 15-30 GRAMS 15 GRAMS... UD PRN PO 03/17/17 01:15 04/16/17 01:14 Glucose (Glucose Chew Tab) 4-8 Tablets 4 Tabl... UD PRN PO 03/17/17 01:15 04/16/17 01:14 Dextrose (Dextrose 50% 50ML Syringe) 25-50ML OF 50% DW IV FOR... UD PRN IV 03/17/17 01:15 04/16/17 01:14 Glucagon (Glucagon Inj) 1 mg UD PRN SQ 03/17/17 01:15 04/16/17 01:14 Methylprednisolone Sodium Succinate 40 mg/Syringe 0.64 ml @ 1.5 mls/min Q8H IV 03/17/17 08:00 04/16/17 07:59 03/17/17 08:50 1.5 MLS/MIN Albuterol/ Ipratropium (Duoneb) 3 ml QIDR INH 03/17/17 08:00 04/16/17 07:59 03/17/17 07:20 3 ML Piperacillin Sod/ Tazobactam Sod (Consult) 1 ea UD PRN N/A 03/17/17 04:28 04/16/17 04:27 Aspirin (Aspirin Chew) 81 mg QAM PO 03/17/17 09:00 04/16/17 08:59 03/17/17 07:39 81 MG Ferrous Sulfate (Feosol Tab) 325 mg DAILY PO 03/17/17 09:00 04/16/17 08:59 03/17/17 07:39 325 MG Fluticasone Propionate (Flonase Nasal [place]) 2 sprays QAM ESPERANZA 03/17/17 09:00 04/16/17 08:59 03/17/17 07:37 2 SPRAYS Folic Acid (Folvite Tab) 1 mg QAM PO 03/17/17 09:00 04/16/17 08:59 03/17/17 07:39 1 MG Metoprolol Tartrate (Lopressor Tab) 50 mg BID PO 03/17/17 09:00 04/16/17 08:59 03/17/17 07:38 50 MG Pantoprazole Sodium (Protonix Tab) 40 mg QAM PO 03/17/17 09:00 04/16/17 08:59 03/17/17 07:38 40 MG Levofloxacin 750 mg/Prmx 150 ml @ 100 mls/hr Q24H IV 03/17/17 20:00 03/23/17 19:59 Piperacillin Sod/ Tazobactam Sod 3.375 gm/Dextrose 115 ml @ 28.75 mls/ hr Q8H IV 03/17/17 06:00 03/24/17 05:59 03/17/17 05:52 28.75 MLS/HR Levofloxacin (Consult) 1 ea UD PRN N/A 03/17/17 04:30 04/16/17 04:29 Acetylcysteine (Mucomyst 20% Inh Soln) 3 ml BID INH 03/17/17 21:00 04/16/17 20:59 UNV Sodium Chloride (Sodium Chloride 7% Neb Solution) 4 ml BIDR INH 03/17/17 20:00 04/16/17 19:59 UNV
--- NOTE | 2017-03-17 11:05 | Pulmonary Consultation ---
History General Date of Service: Mar 17, 2017. Stated Complaint: Respiratory Failure, [id number] HPI Patient is a 56-year-old female with history of bronchiectasis since childhood with multiple recent exacerbations, sleep apnea, acute on chronic hypoxic, hypercapneic respiratory failure, & chronic hypogammaglobulinemia. She has had progressive symptoms with more frequent hospitalizations. She does have a Trilogy machine at home for sleep apnea which she uses regularly. She does have a history of hypogammaglobulinemia and she does get IVIG treatment monthly. The patient has had numerous bronchoscopies. Most recently, she had a bronchoscopy completed by Dr. Villalta at the beginning of February at which time her bronchial washings grew Acinetobacter Baumanii resistant to multiple antibiotics. The patient has also grown Stenotrophomonas in the past as well as other organisms. She has been treated with multiple courses of Bactrim as an outpatient, and most recently was treated about 2 weeks ago at which time her symptoms did not greatly improve. Upon current admission, the patient was experiencing increased mucus production , cough, and chest pain. She feels that her symptoms have already improved since admission. The patient has a pulse oximeter at home. She wears her oxygen continuously at about 3 liters at home. She has a history of daily cough and moderate to large quantities of sputum on a regular basis. She has been on hypertonic saline in her nebulizer at home, but she does not do them often. She feels that when she is home, the hypertonic saline nebulizers make her too short of breath to continue her ADLs. She only uses them about once per day. Labs upon admission: WBC 11.46 Hgb 10.7 Creatinine 0.66 BUN 16 Sodium 133 Chloride 97 Potassium 4.2 Troponin negative CXR 03/17: Persistent bronchiectasis with diffuse bilateral reticulonodular opacities. No significant or acute change from prior. I did discuss this patient with Dr. Calderon and Dr. Gary. Historian: patient Review of Systems Constitutional: denies: chills, fever Eyes: denies: eye pain ENT: denies: loss of hearing Cardiovascular: reports: chest pain, chest tightness, denies: edema Respiratory: reports: cough, shortness of breath, wheezing, sputum production Gastrointestinal: denies: abdominal pain, vomiting Genitourinary - Female: denies: dysuria Integumentary: denies: rash Neurologic: denies: headache All Other Symptoms All Other Systems: Reviewed and Negative Past Medical History Past Medical History: Medical Problems: (1) Anxiety (2) Asthma (3) Chronic respiratory failure (4) COPD exacerbation (5) Depression (6) Diabetes (7) Emphysema (8) GERD (gastroesophageal reflux disease) (9) Hyperlipidemia (10) Hypogammaglobulinemia (11) Idiopathic bronchiectasis (12) Immunodeficiency (13) Mild pulmonary hypertension (14) BILL (obstructive sleep apnea) (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 (16) Pneumonia (17) Respiratory failure (18) Respiratory failure, [id number] (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 (20) Tachycardia Surgical Problems: (1) H/O atrial septal defect repair (2) H/O: hysterectomy (3) History of hysterectomy (4) History of myringotomy (5) Hx of appendectomy (6) Hx of cholecystectomy (7) Hx of tympanostomy tubes (8) S/P bronchoscopy (9) S/P section (10) S/P sinus surgery (11) S/P tonsillectomy and adenoidectomy Past Medical History: anxiety, depression, diabetes, GERD, lung disease, other Family History Asthma SISTER Cancer SISTER FATHER MOTHER Diabetes mellitus Gallbladder disease Heart disease Hypertension FATHER Kidney disease Kidney stones Lung disease Social History Hx Tobacco Use In Past Year?: No Smoking Status: Never Smoker Alcohol: never Drug Use: none Marital status: single Housing status: lives alone Occupational Status: other Immunizations History of Influenza Vaccine: Yes Influenza Vaccine Date: Mar 14, 2015 History of Tetanus Vaccine?: Yes Tetanus Immunization Date: Jun 16, 2010 History of Pneumococcal: Yes Pneumococcal Date: Sep 22, 2010 History of Hepatitis B Vaccine: Unknown History of MDRO History of MDRO: No Allergies Coded Allergies: Albuterol (Verified Adverse Reaction, Mild, CHEST PAIN, LEVALBUTEROL OK, 03/16/17) PT STATES "IF TAKE TOO MUCH DEVELOPS CHEST PAIN". TOLERATE LEVALBUTEROL 04/2015 Current Medications Reported Home Medications Medications Dose Route/Sig Max Daily Dose Days Date Category Cortef (Hydrocortisone) 5 Mg Tab 12.5 Mg PO DAILY 03/16/17 Reported Vitamin C 500 mg (Ascorbic Acid) 1 Chw Chw 500 Mg PO DAILY 03/16/17 Reported Albuterol Sulfate (Albuterol Sulf) 2.5 Mg/3 Ml Nebu 1 Dose INH Q4H PRN 01/15/17 Reported Probiotic (Probiotic Product) 1 Cap Cap 1 Cap PO DAILY 01/15/17 Reported Lopressor (Metoprolol Tartrate) 50 Mg Tab 1 Tab PO BID 30 11/02/16 Reported Alendronate Sodium 70 Mg Tab 70 Mg PO Tuesday10/01/16 Reported Novolin N (Insulin Human NPH) 100 Units/Ml Susp 10 Units SQ QAM 10/01/16 Reported Oxygen Gas 4 Liters NA DAILY 07/12/16 Reported Flonase Allergy Relief (Fluticasone Propionate (Nasal)) 50 Mcg/Act Spr 2 [place] ESPERANZA QAM 05/24/16 Reported Ferrous Sulfate 325 Mg Tab 325 Mg PO DAILY 05/24/16 Reported Magnesium (Magnesium Oxide (Mg Supplement) 400 Mg Cap 400 Mg PO DAILY 02/23/16 Reported Vitamin B12 (Cyanocobalamin) 1,000 Mcg Tab 1,000 Mcg PO DAILY 02/23/16 Reported Folic Acid 1 Mg Tab 1 Mg PO QAM 03/26/15 Reported Aspirin Chewable (Aspirin) 81 Mg Chew 81 Mg PO QAM 03/26/15 Reported Mucinex Dm Maximum Streng (Dextromethorphan-Guaifenesin) 1 Tab Tab 1 Tab PO BID PRN 03/26/15 Reported Caltrate 600 Plus (Calcium Carbonate-Vitamin D W/) 1 Tab Tab 1 Tab PO BID 09/20/14 Reported Multivitamin (Multiple Vitamin) 1 Tab Tab 1 Tab PO QAM 09/20/14 Reported Protonix (Pantoprazole) 40 Mg Tab 40 Mg PO QAM 09/20/14 Reported Physical Physical Exam Vital Signs: Date Time Temp Pulse Resp B/P (MAP) Pulse Ox O2 Delivery O2 Flow Rate FiO2 03/17/17 08:02 37.0 98 18 121/69 (86) 95 Nasal Cannula 4.0 03/17/17 08:00 Nasal Cannula 4.0 03/17/17 07:21 109 16 96 Nasal Cannula 4.0 03/17/17 04:19 36.7 113 20 127/78 (94) 97 Nasal Cannula 4.0 03/17/17 04:00 97 Nasal Cannula 4.0 03/17/17 02:30 36.7 132 22 125/72 (89) 94 Nasal Cannula 4.0 03/17/17 02:03 115 20 134/91 98 03/17/17 01:32 Nasal Cannula 3.0 03/17/17 01:07 119 22 130/69 98 Nebulizer 03/17/17 01:06 120 18 94 Nasal Cannula 2.0 03/16/17 23:54 99 Nasal Cannula 3.0 03/16/17 23:21 122 03/16/17 23:01 123 22 143/96 96 Nasal Cannula 3.0 03/16/17 23:01 Room Air General Appearance: WD/WN, NO APPARENT DISTRESS Head: NORMOCEPHALIC, ATRAUMATIC Eyes: EOMI, SCLERAE NORMAL Neck: NORMAL RANGE OF MOTION, TRACHEA MIDLINE Respiratory: NO RESPIRATORY DISTRESS, other (high pitched wheezes throughout right lung- mild, mild crackles and wheezes throughout left lung. Nasal cannula O2 in place) Cardiovasular: REGULAR RATE/RHYTHM Abdomen: NON TENDER, NORMAL BOWEL SOUNDS Back: NORMAL INSPECTION Lower Extremities: NO EDEMA Neuro: ALERT Psychiatric: NORMAL AFFECT Diagnostics Labs Results Past 24 Hours Test 03/16/17 23:20 03/16/17 23:44 03/16/17 23:45 03/16/17 23:48 Range/Units Influenza Type A (RT-PCR) Neg for Influ A NEG Influenza Type A Antigen Neg for Influ A NEG Influenza Type B Antigen Neg for Influ B NEG Influenza Type B (RT-PCR) Neg for Influ B NEG White Blood Count 11.46 4.8-10.8 K/uL Red Blood Count 4.04 4.2-5.4 M/uL Hemoglobin 10.7 12.0-16.0 g/dL Hematocrit 34.2 37-47 % Mean Corpuscular Volume 84.7 80-100 fL Mean Corpuscular Hemoglobin 26.5 25-34 pg Mean Corpuscular Hemoglobin Concent 31.3 32-36 g/dl Platelet Count 218 130-400 K/uL Mean Platelet Volume 8.9 7.4-10.4 fL Neutrophils (%) (Auto) 75.2 % Lymphocytes (%) (Auto) 14.1 % Monocytes (%) (Auto) 5.3 % Eosinophils (%) (Auto) 4.9 % Basophils (%) (Auto) 0.3 % Neutrophils # (Auto) 8.61 1.4-6.5 K/uL Lymphocytes # (Auto) 1.62 1.2-3.4 K/uL Monocytes # (Auto) 0.61 0.11-0.59 K/uL Eosinophils # (Auto) 0.56 0-0.5 K/uL Basophils # (Auto) 0.04 0-0.2 K/uL RDW Standard Deviation 49.0 36.4-46.3 fL RDW Coefficient of Variation 15.8 11.5-14.5 % Immature Granulocyte % (Auto) 0.2 % Immature Granulocyte # (Auto) 0.02 0.00-0.02 K/uL Prothrombin Time 10.2 9.0-12.0 SECONDS Prothromb Time International Ratio 1.0 0.9-1.1 Activated Partial Thromboplast Time 28.5 21.0-31.0 SECONDS Partial Thromboplastin Ratio 1.1 Sodium Level 133 136-145 mmol/L Potassium Level 4.2 3.5-5.1 mmol/L Chloride Level 97 98-107 mmol/L Carbon Dioxide Level 32 21-32 mmol/L Anion Gap 4.0 3-11 mmol/L Blood Urea Nitrogen 16 7-18 mg/dl Creatinine 0.66 0.60-1.20 mg/dl Est Creatinine Clear Calc Drug Dose 93.6 ml/min Estimated GFR () 115.3 Estimated GFR (Non- 99.4 BUN/Creatinine Ratio 24.5 10-20 Random Glucose 103 70-99 mg/dl Calcium Level 9.1 8.5-10.1 mg/dl Magnesium Level 2.1 1.8-2.4 mg/dl Total Bilirubin 0.4 0.2-1 mg/dl Aspartate Amino Transf (AST/SGOT) 15 15-37 U/L Alanine Aminotransferase (ALT/SGPT) 16 12-78 U/L Alkaline Phosphatase 72 45-117 U/L Troponin I < 0.015 0-0.045 ng/ml Total Protein 8.6 6.4-8.2 gm/dl Albumin 3.3 3.4-5.0 gm/dl Globulin 5.3 2.5-4.0 gm/dl Albumin/Globulin Ratio 0.6 0.9-2 Bedside Troponin I < 0.030 0-0.045 ng/ml Bedside Lactic Acid Venous 0.45 0.90-1.70 mmol/L Test 03/17/17 03:53 03/17/17 06:37 03/17/17 07:32 Range/Units Bedside Glucose 279 269 70-90 mg/dl White Blood Count 10.38 4.8-10.8 K/uL Red Blood Count 3.75 4.2-5.4 M/uL Hemoglobin 9.8 12.0-16.0 g/dL Hematocrit 31.7 37-47 % Mean Corpuscular Volume 84.5 80-100 fL Mean Corpuscular Hemoglobin 26.1 25-34 pg Mean Corpuscular Hemoglobin Concent 30.9 32-36 g/dl Platelet Count 195 130-400 K/uL Mean Platelet Volume 9.1 7.4-10.4 fL Neutrophils (%) (Auto) 94.7 % Lymphocytes (%) (Auto) 4.2 % Monocytes (%) (Auto) 0.6 % Eosinophils (%) (Auto) 0.1 % Basophils (%) (Auto) 0.1 % Neutrophils # (Auto) 9.83 1.4-6.5 K/uL Lymphocytes # (Auto) 0.44 1.2-3.4 K/uL Monocytes # (Auto) 0.06 0.11-0.59 K/uL Eosinophils # (Auto) 0.01 0-0.5 K/uL Basophils # (Auto) 0.01 0-0.2 K/uL RDW Standard Deviation 48.6 36.4-46.3 fL RDW Coefficient of Variation 15.7 11.5-14.5 % Immature Granulocyte % (Auto) 0.3 % Immature Granulocyte # (Auto) 0.03 0.00-0.02 K/uL Sodium Level 132 136-145 mmol/L Potassium Level 4.2 3.5-5.1 mmol/L Chloride Level 96 98-107 mmol/L Carbon Dioxide Level 30 21-32 mmol/L Anion Gap 7.0 3-11 mmol/L Blood Urea Nitrogen 15 7-18 mg/dl Creatinine 0.93 0.60-1.20 mg/dl Est Creatinine Clear Calc Drug Dose 67.4 ml/min Estimated GFR () 80.2 Estimated GFR (Non- 69.2 BUN/Creatinine Ratio 15.9 10-20 Random Glucose 248 70-99 mg/dl Calcium Level 9.1 8.5-10.1 mg/dl Magnesium Level 2.1 1.8-2.4 mg/dl Troponin I 0.017 0-0.045 ng/ml Microbiology Results 03/16/17 Blood Culture, Received Pending 03/16/17 Blood Culture, Received Pending 03/17/17 Gram Stain - Final, Resulted 03/17/17 Sputum Culture, Resulted Pending Diagnostic Radiology CHEST ONE VIEW PORTABLE CLINICAL HISTORY: Sepsis COMPARISON STUDY: 01/15/2017 FINDINGS: The cardiac images so contours remain stable. The right-sided A-Port catheter remains unchanged in position. There are diffuse bilateral reticulonodular pulmonary airspace opacities. There are no significant pleural effusions. Bronchiectasis is again suspected.[ IMPRESSION: 1. Persistent bronchiectasis with diffuse bilateral reticulonodular opacities. No significant change from the preceding study EKG Sinus tachycardia ST & T wave abnormality, consider inferior ischemia ST & T wave abnormality, consider anterolateral ischemia Impression Assessment and Plan Bronchiectasis with acute exacerbation Acute on chronic respiratory failure with hypoxia and hypercapnea Chronic hypogammaglobulinemia Chest pain Sleep apnea Patient is currently having some increased mucus production, SOB, and chest pain. Patient currently on IV Zosyn and Levaquin. She recently had a bronchoscopy on 02/25/17 during which washing grew MDR Acinetobacter. Discussed these findings with Infection Control- will work on getting this patient her own room/ on contact precautions. Also discussed this patient with Dr. Gary and Dr. Adamson. Aware of patient's MDR bacteria- recommended start of IV Tigecycline. ID Consult and pharmacy consult placed for use of restricted drug. Will D/C Levaquin and Zosyn. This patient will need continued aggressive pulmonary toilet. Will order vibration vest, flutter valve, Mucomyst neb 3 ml BID, 7% saline nebs BID, and continued Duoneb. Currently patient is on IV SoluMedrol 40 mg Q8h. As she improves, continue to taper steroids. Continue to supplement O2- ideally maintain SaO2 between 88-94%. Avoid over- oxygenating this patient. Continue CPAP at night with home settings/machine OK. Pulmonary will follow.
[2017-03-17] MEDS ORDERED: CONSULT PHARMACY PRN (11:17)
[2017-03-17] MEDS ORDERED: TIGEcycline INJ 100 MG in DEXTROSE 5% 100ML 100 ML IV ONE (11:45)
--- NOTE | 2017-03-17 13:48 | Progress Note ---
Progress Note Date of Service Mar 17, 2017. Progress Note ID Consult Dictated #[id number] A/P: 1. COPD Exacerbation -Continue emperic abx, follow sputum culture results -Will follow, thank you
--- NOTE | 2017-03-17 14:53 | INFECT. DISEASE CONSULTATION ---
DATE OF CONSULTATION: 03/17/2017 DATE OF CONSULTATION: 03/17/2017 REQUESTING PHYSICIAN: Dr. Rodriguez. HISTORY OF PRESENT ILLNESS: This is a 56-year-old female who has been on Bactrim most recently for an upper respiratory infection. She had a bronchoscopy on February 25 which grew acinetobacter. This was sensitivities to amikacin, gentamicin and Bactrim only. She has had no significant improvement on Bactrim. Recently she had worsening shortness of breath and hypoxemia. She was subsequently admitted to the hospital. She remains on nasal cannula. X-ray was performed and showed bronchiectasis, no significant changes from 01/15/2017. She was placed on tigecycline empirically and repeat sputum culture has been obtained. Infectious disease was consulted for tetracycline use. On my examination, the patient states she feels significantly better today than she did yesterday. Her cough and shortness of breath have resolved. She denies any chest pain, hemoptysis, fevers or chills. All remaining review of systems are reviewed and are negative. She is tolerating antibiotics well. PAST MEDICAL HISTORY: Significant for anxiety, asthma, chronic respiratory failure, COPD, depression, type 2 diabetes, emphysema, GERD, hyperlipidemia, hypogammaglobulinemia, bronchiectasis, pulmonary hypertension, obstructive sleep apnea. PAST SURGICAL HISTORY: Significant for repair of an ASD, hysterectomy, ear surgery, appendectomy, cholecystectomy, eustachian tube placement, bronchoscopy, , sinus surgery, tonsillectomy, adenoidectomy. FAMILY HISTORY: Noncontributory. SOCIAL HISTORY: Negative for alcohol use, drug use or tobacco use. ALLERGIES: SHE HAS ALLERGIES TO ALBUTEROL. CURRENT MEDICATIONS: Include tetracycline, Mucomyst, aspirin, iron, Flonase, folic acid, Lopressor, Protonix, Lovenox, Solu-Medrol, DuoNebs, Tylenol and Zofran. PHYSICAL EXAMINATION: VITAL SIGNS: She is afebrile, pulse 96, respiratory rate 20, blood pressure 147/78, oxygen saturation is 96% on room air. She is on 4 liters nasal cannula. GENERAL: She is awake, alert, oriented x3. She is in no acute distress. HEAD, EYES, EARS, NOSE, AND THROAT: Mucous membranes are moist. Extraocular muscles are intact. HEART: Regular. LUNGS: Scattered wheezing bilaterally. ABDOMEN: Soft and nondistended. EXTREMITIES: There is no edema. SKIN: Without rash. LABORATORY DATA: CBC today reveals a white blood cell count of 10.3, hemoglobin 9.8, platelets are 195. Chemistry panel reveals a sodium of 132, potassium 4.2, chloride 96, bicarb 30, BUN 15, creatinine 0.9, glucose is 288. Flu swab is negative. Sputum and blood cultures are pending. X-ray is as above. ASSESSMENT AND PLAN: Bronchiectasis with likely COPD exacerbation. She will remain on empiric antibiotics pending her sputum culture results. Thank you for this consultation.
[2017-03-17] MEDS: ACETYLCYSTEINE 20% INHAL SOLN ***DISPENSED BY RESP. INH SCH (19:36)
[2017-03-17] MEDS: SODIUM CHLORIDE 7% 4 ML NEB INH SCH (19:36)
[2017-03-17] MEDS ORDERED: LEVOFLOXACIN 750MG / D5W IV SCH (20:00)
[2017-03-17] MEDS: TIGEcycline INJ 50 MG in DEXTROSE 5% 100ML 100 ML IV SCH (23:33)
[2017-03-18] VITALS (11 sets, daily range): BP systolic 106–134; BP diastolic 66–81; PULSE 66–92; TEMP 36.4–37.1; O2SAT 92–99
[2017-03-18 04:22] LABS: BASO % 0.1 %; BASO ABS # 0.01 K/uL (0-0.2); COMPLETE YES; IG% 0.2 %; LYMPH ABS # 0.85 K/uL (1.2-3.4); MEAN CELL VOLUME 84.2 fL (80-100); MEAN CORPUSCULAR HEMOGLOBIN 26.6 pg (25-34); MEAN CORPUSCULAR HGB CONC 31.6 g/dl (32-36); MEAN PLATELET VOLUME 8.9 fL (7.4-10.4); MONO % 2.1 %; NEUT % 90.6 %; PLATELET COUNT 221 K/uL (130-400); WHITE BLOOD COUNT 12.12 K/uL (4.8-10.8)
[2017-03-18 04:48] LABS: BUN/CREATININE RATIO 35.2 (10-20); CALCIUM 9.2 mg/dl (8.5-10.1); CREATININE 0.81 mg/dl (0.60-1.20); MAGNESIUM 2.3 mg/dl (1.8-2.4)
[2017-03-18] MEDS: ACETYLCYSTEINE 20% INHAL SOLN ***DISPENSED BY RESP. INH SCH ×2 (07:12→18:58)
[2017-03-18] MEDS: ALBUT/IPRATROP 3MG/0.5MG NEB 3 ML VIAL INH SCH ×4 (07:12→18:58)
[2017-03-18] MEDS: SODIUM CHLORIDE 7% 4 ML NEB INH SCH ×2 (07:13→18:58)
[2017-03-18] MEDS: FERROUS SULFATE 325 MG TAB PO SCH (07:42)
[2017-03-18] MEDS: METHYLPREDNISOLONE IV 40 MG in SYRINGE 0 ML IV SCH ×3 (07:42→23:31)
[2017-03-18] MEDS: FLUTICASONE PROPIONATE NA SPR 16 GM BTL NAE SCH (07:43)
[2017-03-18] MEDS: ENOXAPARIN 40 MG/0.4 ML SYR SC SCH (07:43)
[2017-03-18] MEDS: PANTOprazole SOD 40 MG TAB PO SCH (07:43)
[2017-03-18] MEDS: ASPIRIN 81 MG CHEW PO SCH (07:43)
[2017-03-18] MEDS: METOPROLOL TARTRATE 50 MG TAB PO SCH ×2 (07:44→21:07)
[2017-03-18] MEDS: INSULIN ASPART 100 UNITS/ML 3 ML PEN SC SCH ×4 (07:49→21:08)
--- NOTE | 2017-03-18 09:58 | Progress Note ---
Subjective Date of Service: Mar 18, 2017. Subjective Pt evaluation today including: conversation w/ patient, physical exam, chart review, lab review pt feeling better today, no complaints. states sob resolved, no cp, no cough, no f/c. placed on tig for previous + sputum culture, repeat sputum pending, blood cultures negative to date. all remaining ros reviewed and are negative. Problem List Medical Problems: (1) Acute and chronic respiratory failure with hypercapnia Status: Acute (2) Atrial fibrillation with rapid ventricular response Status: Acute (3) Atypical pneumonia Status: Acute (4) Bronchiectasis Status: Acute (5) Bronchiectasis Status: Acute (6) Bronchitis Status: Acute (7) Chronic lung disease Status: Acute (8) COPD exacerbation Status: Acute (9) Dyspnea Status: Acute (10) Fever Status: Acute (11) Fever Status: Acute (12) Hypoxia Status: Acute (13) Hypoxia Status: Acute (14) Hypoxia Status: Acute (15) Idiopathic bronchiectasis Status: Chronic (16) PNA (pneumonia) Status: Acute (17) PNA (pneumonia) Status: Acute (18) Pneumonia Status: Acute (19) Pneumonia Status: Acute (20) Sepsis Status: Acute (21) SOB (shortness of breath) Status: Acute Objective Vital Signs Date Time Temp Pulse Resp B/P (MAP) Pulse Ox O2 Delivery O2 Flow Rate FiO2 03/18/17 08:00 Nasal Cannula 4.0 03/18/17 07:39 36.7 76 18 119/80 (93) 92 Nasal Cannula 4.0 03/18/17 07:23 71 16 97 Nasal Cannula 4.0 03/18/17 04:00 36.7 75 106/66 (79) 96 Nasal Cannula 4.0 03/18/17 04:00 96 Nasal Cannula 4.0 03/18/17 00:00 94 Nasal Cannula 4.0 03/18/17 00:00 36.5 84 134/81 (98) 94 Nasal Cannula 4.0 03/17/17 20:00 Nasal Cannula 4.0 03/17/17 19:37 36.8 75 18 129/80 (96) 99 03/17/17 19:36 97 16 99 Nasal Cannula 4.0 03/17/17 16:00 Nasal Cannula 4.0 03/17/17 15:43 36.9 74 18 130/78 (95) 98 03/17/17 14:47 102 16 94 Nasal Cannula 4.0 03/17/17 12:00 Nasal Cannula 4.0 03/17/17 11:54 36.8 96 20 147/78 (101) 96 03/17/17 11:16 84 16 96 Nasal Cannula 4.0 Physical Exam General Appearance: WD/WN, no apparent distress Eyes: normal inspection, EOMI Neck: supple Respiratory/Chest: lungs clear, + decreased breath sounds Cardiovascular: regular rate, rhythm, no edema Abdomen: soft Extremities: non-tender, no pedal edema Neurologic/Psychiatric: alert, oriented x 3 Skin: normal color, no rash Laboratory Results Item Value Date Time Gram Stain - Final Resulted 03/17/17 0410 Sputum Expectorated Sputum Blood Culture - Preliminary Resulted 03/16/17 2344 Blood NO GROWTH TO DATE. Blood Culture - Preliminary Resulted 03/16/17 2333 Blood NO GROWTH TO DATE. Last 24 Hours Test 03/17/17 11:57 03/17/17 16:13 03/17/17 20:07 03/18/17 04:12 Bedside Glucose 288 mg/dl 168 mg/dl 157 mg/dl White Blood Count 12.12 K/uL Red Blood Count 3.80 M/uL Hemoglobin 10.1 g/dL Hematocrit 32.0 % Mean Corpuscular Volume 84.2 fL Mean Corpuscular Hemoglobin 26.6 pg Mean Corpuscular Hemoglobin Concent 31.6 g/dl Platelet Count 221 K/uL Mean Platelet Volume 8.9 fL Neutrophils (%) (Auto) 90.6 % Lymphocytes (%) (Auto) 7.0 % Monocytes (%) (Auto) 2.1 % Eosinophils (%) (Auto) 0.0 % Basophils (%) (Auto) 0.1 % Neutrophils # (Auto) 10.99 K/uL Lymphocytes # (Auto) 0.85 K/uL Monocytes # (Auto) 0.25 K/uL Eosinophils # (Auto) 0.00 K/uL Basophils # (Auto) 0.01 K/uL RDW Standard Deviation 48.5 fL RDW Coefficient of Variation 15.7 % Immature Granulocyte % (Auto) 0.2 % Immature Granulocyte # (Auto) 0.02 K/uL Sodium Level 134 mmol/L Potassium Level 5.0 mmol/L Chloride Level 100 mmol/L Carbon Dioxide Level 33 mmol/L Anion Gap 1.0 mmol/L Blood Urea Nitrogen 29 mg/dl Creatinine 0.81 mg/dl Est Creatinine Clear Calc Drug Dose 77.4 ml/min Estimated GFR () 94.8 Estimated GFR (Non- 81.8 BUN/Creatinine Ratio 35.2 Random Glucose 152 mg/dl Calcium Level 9.2 mg/dl Magnesium Level 2.3 mg/dl Test 03/18/17 07:03 Bedside Glucose 149 mg/dl Assessment and Plan (1) COPD exacerbation Assessment & Plan: continue IV abx for now, if remains afebrile and all cultures negative, could likely be followed off of abx
[2017-03-18] MEDS: TIGEcycline INJ 50 MG in DEXTROSE 5% 100ML 100 ML IV SCH ×2 (12:27→23:30)
--- NOTE | 2017-03-18 12:32 | Clinical Documentation Query ---
MACKENZIE Fuchs : CLINICAL DOCUMENTATION QUERY Patient is a 56 year old female admitted for bronchiectasis exacerbation with acute on chronic respiratory failure. Per EMR weight history, patient has lost 15.9 Kg (17%) in approximately one year. Office Rep noted "She has been losing wt from bronchiectasis flare-ups and losing her appetite during her flare-ups". As appropriate, consider documentation as suggested below in order to capture the appropriate severity of illness associated with this disease process and progression. In your clinical opinion is this patient being managed for: ( ) Severe calorie malnutrition secondary to COPD related weight loss ( ) Not Agree ( ) Other explanation of clinical findings (Please Explain) ( ) Unable to determine (Please Define) ( ) Need to Discuss The medical record reflects the following clinical findings, treatment, and risk factors. Clinical Indicators: As above Treatment: Office Rep consult. HS snacks. Treatment of bronchiectasis Risk Factors: Bronchiectasis Please clarify and document your clinical opinion in the progress notes and discharge summary. Terms such as "probable", "suspected", "likely", "questionable", "possible", or "still to be ruled out" are acceptable. IF IN AGREEMENT, YOU MUST DOCUMENT ABOVE DIAGNOSTIC STATEMENT IN DAILY PROGRESS NOTES AND DISCHARGE SUMMARY. This document is not part of the patient's record. Thank You, Teodoro Lynch, LIAM [phone]
--- NOTE | 2017-03-18 15:36 | Pulmonology Progress Note ---
Pulmonary Progress Note Date of Service Mar 18, 2017. Attending Dr. Miner Subjective Ms. Pollock was seen and examined this afternoon. She states that she feels back to her baseline. She still has productive cough with yellowish sputum. She has occasional wheezing and mild dyspnea on exertion. She has been ambulating independently to the bathroom. She denies any chest tightness or discomfort. Objective VS reviewed. Tm 36.7, BP 106/66-134/81, P 66-84, RR 16-19, SaO2 92-99% on RA. Cumulative balance is 1662 ml negative. Gen: AAOx3, NAD, speaking in full sentences. CVS: S1, S2, RRR Lungs: diminished breath sounds bilaterally, mild crackles at bases Abd: soft/NT/ND/BS+ Ext: no edema, no cyanosis, no clubbing Labs reviewed. Blood cultures 03/16/2017--NGTD Sputum cultures 03/17/2017--moderate normal pavan. Imaging reviewed. Medications reviewed. Assessment & Plan Bronchiectasis with acute exacerbation Acute on chronic respiratory failure with hypoxia and hypercapnea Chronic hypogammaglobulinemia Chest pain Sleep apnea Patient is currently having some increased mucus production, SOB, and chest pain. She recently had a bronchoscopy on 02/25/17 during which washing grew MDR Acinetobacter. Discussed these findings with Infection Control- will work on getting this patient her own room/ on contact precautions. ID is following. She was started on IV Tigecycline for MDR bacteria. Blood cultures and sputum cultures show no growth to date--can likely discontinue Tigecycline. Continue with aggressive pulmonary toilet. Continue with vibration vest, flutter valve, Mucomyst neb 3 ml BID, 7% saline nebs BID, and continued Duoneb. Currently patient is on IV SoluMedrol 40 mg Q8h. Likely taper steroids to prednisone in the morning. Continue to supplement O2- ideally maintain SaO2 between 88-92%. Avoid over- oxygenating this patient. Continue CPAP at night with home settings/machine. Data Medications: Current Inpatient Medications Medications (Trade) Dose Ordered Sig/Man Route Start Time Stop Time Status Last Admin Dose Admin Enoxaparin Sodium (Lovenox Inj) 40 mg Q24H SC 03/17/17 08:00 04/16/17 07:59 03/18/17 07:43 40 MG Acetaminophen (Tylenol Tab) 650 mg Q4H PRN PO 03/17/17 01:15 04/16/17 01:14 Ondansetron HCl (Zofran Inj) 4 mg Q6H PRN IV 03/17/17 01:15 04/16/17 01:14 Insulin Aspart (novoLOG ASPART) SLIDING SCALE If C... ACHS SC 03/17/17 07:00 04/16/17 06:59 03/18/17 12:27 2 UNITS Glucose (Glucose 40% Gel) 15-30 GRAMS 15 GRAMS... UD PRN PO 03/17/17 01:15 04/16/17 01:14 Glucose (Glucose Chew Tab) 4-8 Tablets 4 Tabl... UD PRN PO 03/17/17 01:15 04/16/17 01:14 Dextrose (Dextrose 50% 50ML Syringe) 25-50ML OF 50% DW IV FOR... UD PRN IV 03/17/17 01:15 04/16/17 01:14 Glucagon (Glucagon Inj) 1 mg UD PRN SQ 03/17/17 01:15 04/16/17 01:14 Methylprednisolone Sodium Succinate 40 mg/Syringe 0.64 ml @ 1.5 mls/min Q8H IV 03/17/17 08:00 04/16/17 07:59 03/18/17 07:42 1.5 MLS/MIN Albuterol/ Ipratropium (Duoneb) 3 ml QIDR INH 03/17/17 08:00 04/16/17 07:59 03/18/17 11:03 3 ML Aspirin (Aspirin Chew) 81 mg QAM PO 03/17/17 09:00 04/16/17 08:59 03/18/17 07:43 81 MG Ferrous Sulfate (Feosol Tab) 325 mg DAILY PO 03/17/17 09:00 04/16/17 08:59 03/18/17 07:42 325 MG Fluticasone Propionate (Flonase Nasal [place]) 2 sprays QAM ESPERANZA 03/17/17 09:00 04/16/17 08:59 03/18/17 07:43 2 SPRAYS Folic Acid (Folvite Tab) 1 mg QAM PO 03/17/17 09:00 04/16/17 08:59 03/18/17 07:42 1 MG Metoprolol Tartrate (Lopressor Tab) 50 mg BID PO 03/17/17 09:00 04/16/17 08:59 03/18/17 07:44 50 MG Pantoprazole Sodium (Protonix Tab) 40 mg QAM PO 03/17/17 09:00 04/16/17 08:59 03/18/17 07:43 40 MG Acetylcysteine (Mucomyst 20% Inh Soln) 3 ml BIDR INH 03/17/17 20:00 04/16/17 19:59 03/18/17 07:12 3 ML Sodium Chloride (Sodium Chloride 7% Neb Solution) 4 ml BIDR INH 03/17/17 20:00 04/16/17 19:59 03/18/17 07:13 4 ML Miscellaneous Information (Pharmacy Consult) 1 ea UD PRN N/A 03/17/17 11:17 04/16/17 11:16 Tigecycline 50 mg/ Dextrose 105 ml @ 200 mls/hr Q12H IV 03/17/17 23:30 03/24/17 23:29 03/18/17 12:27 200 MLS/HR Heparin Sodium (Porcine) (Heparin 100 Unit/ml 5ml Flush) 5 ml PRN PRN IV 03/18/17 00:30 04/17/17 00:29 Vital Signs: Date Time Temp Pulse Resp B/P (MAP) Pulse Ox O2 Delivery O2 Flow Rate FiO2 03/18/17 12:04 36.5 66 19 115/73 (87) 96 Nasal Cannula 4.0 03/18/17 12:00 Nasal Cannula 4.0 03/18/17 11:06 76 17 98 Nasal Cannula 4.0 03/18/17 08:00 Nasal Cannula 4.0 03/18/17 07:39 36.7 76 18 119/80 (93) 92 Nasal Cannula 4.0 03/18/17 07:23 71 16 97 Nasal Cannula 4.0 03/18/17 04:00 36.7 75 106/66 (79) 96 Nasal Cannula 4.0 03/18/17 04:00 96 Nasal Cannula 4.0 03/18/17 00:00 94 Nasal Cannula 4.0 03/18/17 00:00 36.5 84 134/81 (98) 94 Nasal Cannula 4.0 03/17/17 20:00 Nasal Cannula 4.0 03/17/17 19:37 36.8 75 18 129/80 (96) 99 03/17/17 19:36 97 16 99 Nasal Cannula 4.0 03/17/17 16:00 Nasal Cannula 4.0 03/17/17 15:43 36.9 74 18 130/78 (95) 98 03/17/17 14:47 102 16 94 Nasal Cannula 4.0 Laboratory Results: Last 24 Hours Test 03/17/17 16:13 03/17/17 20:07 03/18/17 04:12 03/18/17 07:03 Bedside Glucose 168 mg/dl 157 mg/dl 149 mg/dl White Blood Count 12.12 K/uL Red Blood Count 3.80 M/uL Hemoglobin 10.1 g/dL Hematocrit 32.0 % Mean Corpuscular Volume 84.2 fL Mean Corpuscular Hemoglobin 26.6 pg Mean Corpuscular Hemoglobin Concent 31.6 g/dl Platelet Count 221 K/uL Mean Platelet Volume 8.9 fL Neutrophils (%) (Auto) 90.6 % Lymphocytes (%) (Auto) 7.0 % Monocytes (%) (Auto) 2.1 % Eosinophils (%) (Auto) 0.0 % Basophils (%) (Auto) 0.1 % Neutrophils # (Auto) 10.99 K/uL Lymphocytes # (Auto) 0.85 K/uL Monocytes # (Auto) 0.25 K/uL Eosinophils # (Auto) 0.00 K/uL Basophils # (Auto) 0.01 K/uL RDW Standard Deviation 48.5 fL RDW Coefficient of Variation 15.7 % Immature Granulocyte % (Auto) 0.2 % Immature Granulocyte # (Auto) 0.02 K/uL Sodium Level 134 mmol/L Potassium Level 5.0 mmol/L Chloride Level 100 mmol/L Carbon Dioxide Level 33 mmol/L Anion Gap 1.0 mmol/L Blood Urea Nitrogen 29 mg/dl Creatinine 0.81 mg/dl Est Creatinine Clear Calc Drug Dose 77.4 ml/min Estimated GFR () 94.8 Estimated GFR (Non- 81.8 BUN/Creatinine Ratio 35.2 Random Glucose 152 mg/dl Calcium Level 9.2 mg/dl Magnesium Level 2.3 mg/dl Test 03/18/17 11:09 Bedside Glucose 149 mg/dl
--- NOTE | 2017-03-18 16:16 | Progress Note ---
Medicine Progress Note Date & Time of Visit: Mar 18, 2017 at 16:13. Subjective Pt was seen and examined Sitting in bed with no distress Pt said that she feels much better today Denies any chest pain, palpitation Objective Last 8 Hrs Date Time Temp Pulse Resp B/P (MAP) Pulse Ox O2 Delivery O2 Flow Rate FiO2 03/18/17 15:17 77 18 99 Nasal Cannula 4.0 03/18/17 12:04 36.5 66 19 115/73 (87) 96 Nasal Cannula 4.0 03/18/17 12:00 Nasal Cannula 4.0 03/18/17 11:06 76 17 98 Nasal Cannula 4.0 Physical Exam: General- no acute distress Head- atraumatic Eyes- PERRL, EOMI ENT- oropharynx clear Neck- supple, no JVD Lungs- Decrease BS Heart- regular Abdomen- normal bowel sounds, soft Extremities- no pretibial edema Neuro- alert, oriented x 3; PERRL, EOMI Skin- warm & dry Laboratory Results: Last 24 Hours Test 03/17/17 20:07 03/18/17 04:12 03/18/17 07:03 03/18/17 11:09 Bedside Glucose 157 mg/dl 149 mg/dl 149 mg/dl White Blood Count 12.12 K/uL Red Blood Count 3.80 M/uL Hemoglobin 10.1 g/dL Hematocrit 32.0 % Mean Corpuscular Volume 84.2 fL Mean Corpuscular Hemoglobin 26.6 pg Mean Corpuscular Hemoglobin Concent 31.6 g/dl Platelet Count 221 K/uL Mean Platelet Volume 8.9 fL Neutrophils (%) (Auto) 90.6 % Lymphocytes (%) (Auto) 7.0 % Monocytes (%) (Auto) 2.1 % Eosinophils (%) (Auto) 0.0 % Basophils (%) (Auto) 0.1 % Neutrophils # (Auto) 10.99 K/uL Lymphocytes # (Auto) 0.85 K/uL Monocytes # (Auto) 0.25 K/uL Eosinophils # (Auto) 0.00 K/uL Basophils # (Auto) 0.01 K/uL RDW Standard Deviation 48.5 fL RDW Coefficient of Variation 15.7 % Immature Granulocyte % (Auto) 0.2 % Immature Granulocyte # (Auto) 0.02 K/uL Sodium Level 134 mmol/L Potassium Level 5.0 mmol/L Chloride Level 100 mmol/L Carbon Dioxide Level 33 mmol/L Anion Gap 1.0 mmol/L Blood Urea Nitrogen 29 mg/dl Creatinine 0.81 mg/dl Est Creatinine Clear Calc Drug Dose 77.4 ml/min Estimated GFR () 94.8 Estimated GFR (Non- 81.8 BUN/Creatinine Ratio 35.2 Random Glucose 152 mg/dl Calcium Level 9.2 mg/dl Magnesium Level 2.3 mg/dl Assessment & Plan Acute on Chronic Respiratory failure Secondary to Bronchiectasis exacerbation Mild leukocytosis on admission CXR on admission showed persistent bronchiectasis with diffuse bilateral reticulonodular opacities S/P bronchoscopy on Feb 25 Grew Acinetobacter on last sputum cx Recently completed PO Bactrim as outpatient Case discussed with Pulm Sputum cx grew normal pavan blood cx no growth so far Recommended pulmonary toilet, Mucomyst, steroid, Neb treatment Continue oxygen supplement ID consulted on IV tigecycline Clinically improved DM II: Last HbA1C:6.3 on 01/16/17 ISS, Monitor BS Hypogammaglobulinemia: Gets monthly Injection: last dose on 2016 on chronic hydrocortisone: will hold as on IV Solu-medrol Sinus Tachycardia Denies any chest pain Troponin negative EKG showed sinus tachy with no significant ST changes resolved DVT Px: Lovenox SQ Code Status: Full Code Disposition: Monitor in Tele Consultants: Pulmonary ID Current Inpatient Medications: Current Inpatient Medications Medications (Trade) Dose Ordered Sig/Man Route Start Time Stop Time Status Last Admin Dose Admin Enoxaparin Sodium (Lovenox Inj) 40 mg Q24H SC 03/17/17 08:00 04/16/17 07:59 03/18/17 07:43 40 MG Acetaminophen (Tylenol Tab) 650 mg Q4H PRN PO 03/17/17 01:15 04/16/17 01:14 Ondansetron HCl (Zofran Inj) 4 mg Q6H PRN IV 03/17/17 01:15 04/16/17 01:14 Insulin Aspart (novoLOG ASPART) SLIDING SCALE If C... ACHS SC 03/17/17 07:00 04/16/17 06:59 03/18/17 12:27 2 UNITS Glucose (Glucose 40% Gel) 15-30 GRAMS 15 GRAMS... UD PRN PO 03/17/17 01:15 1/6/18 01:14 Glucose (Glucose Chew Tab) 4-8 Tablets 4 Tabl... UD PRN PO 03/17/17 01:15 04/16/17 01:14 Dextrose (Dextrose 50% 50ML Syringe) 25-50ML OF 50% DW IV FOR... UD PRN IV 03/17/17 01:15 04/16/17 01:14 Glucagon (Glucagon Inj) 1 mg UD PRN SQ 03/17/17 01:15 04/16/17 01:14 Methylprednisolone Sodium Succinate 40 mg/Syringe 0.64 ml @ 1.5 mls/min Q8H IV 03/17/17 08:00 04/16/17 07:59 03/18/17 07:42 1.5 MLS/MIN Albuterol/ Ipratropium (Duoneb) 3 ml QIDR INH 03/17/17 08:00 04/16/17 07:59 03/18/17 15:15 3 ML Aspirin (Aspirin Chew) 81 mg QAM PO 03/17/17 09:00 04/16/17 08:59 03/18/17 07:43 81 MG Ferrous Sulfate (Feosol Tab) 325 mg DAILY PO 03/17/17 09:00 04/16/17 08:59 03/18/17 07:42 325 MG Fluticasone Propionate (Flonase Nasal [place]) 2 sprays QAM ESPERANZA 03/17/17 09:00 04/16/17 08:59 03/18/17 07:43 2 SPRAYS Folic Acid (Folvite Tab) 1 mg QAM PO 03/17/17 09:00 04/16/17 08:59 03/18/17 07:42 1 MG Metoprolol Tartrate (Lopressor Tab) 50 mg BID PO 03/17/17 09:00 04/16/17 08:59 03/18/17 07:44 50 MG Pantoprazole Sodium (Protonix Tab) 40 mg QAM PO 03/17/17 09:00 04/16/17 08:59 03/18/17 07:43 40 MG Acetylcysteine (Mucomyst 20% Inh Soln) 3 ml BIDR INH 03/17/17 20:00 04/16/17 19:59 03/18/17 07:12 3 ML Sodium Chloride (Sodium Chloride 7% Neb Solution) 4 ml BIDR INH 03/17/17 20:00 04/16/17 19:59 03/18/17 07:13 4 ML Miscellaneous Information (Pharmacy Consult) 1 ea UD PRN N/A 03/17/17 11:17 04/16/17 11:16 Tigecycline 50 mg/ Dextrose 105 ml @ 200 mls/hr Q12H IV 03/17/17 23:30 03/24/17 23:29 03/18/17 12:27 200 MLS/HR Heparin Sodium (Porcine) (Heparin 100 Unit/ml 5ml Flush) 5 ml PRN PRN IV 03/18/17 00:30 04/17/17 00:29
[2017-03-19] VITALS (14 sets, daily range): BP systolic 105–120; BP diastolic 68–73; PULSE 59–77; TEMP 36.7–36.9; O2SAT 96–98
[2017-03-19 04:24] LABS: COMPLETE YES; EOS % 0.1 %; HEMATOCRIT 32.2 % (37-47); IG% 0.2 %; LYMPH % 8.1 %; LYMPH ABS # 0.97 K/uL (1.2-3.4); MEAN CELL VOLUME 84.5 fL (80-100); MEAN CORPUSCULAR HEMOGLOBIN 27.3 pg (25-34); MEAN CORPUSCULAR HGB CONC 32.3 g/dl (32-36); MEAN PLATELET VOLUME 9.6 fL (7.4-10.4); MONO % 1.3 %; NEUT % 90.3 %; PLATELET COUNT 247 K/uL (130-400); RED BLOOD COUNT 3.81 M/uL (4.2-5.4); WHITE BLOOD COUNT 11.99 K/uL (4.8-10.8)
[2017-03-19 04:52] LABS: BUN/CREATININE RATIO 41.4 (10-20); CALCIUM 8.7 mg/dl (8.5-10.1); CREATININE 0.8 mg/dl (0.60-1.20)
[2017-03-19] MEDS: ALBUT/IPRATROP 3MG/0.5MG NEB 3 ML VIAL INH SCH ×4 (07:15→19:34)
[2017-03-19] MEDS: ACETYLCYSTEINE 20% INHAL SOLN ***DISPENSED BY RESP. INH SCH ×2 (07:15→19:34)
[2017-03-19] MEDS: SODIUM CHLORIDE 7% 4 ML NEB INH SCH ×2 (07:16→19:45)
[2017-03-19] MEDS: METOPROLOL TARTRATE 50 MG TAB PO SCH ×2 (08:24→20:50)
[2017-03-19] MEDS: PANTOprazole SOD 40 MG TAB PO SCH (08:24)
[2017-03-19] MEDS: ASPIRIN 81 MG CHEW PO SCH (08:24)
[2017-03-19] MEDS: FERROUS SULFATE 325 MG TAB PO SCH (08:24)
[2017-03-19] MEDS: FLUTICASONE PROPIONATE NA SPR 16 GM BTL NAE SCH (08:24)
[2017-03-19] MEDS: INSULIN ASPART 100 UNITS/ML 3 ML PEN SC SCH ×4 (08:26→20:57)
[2017-03-19] MEDS: ENOXAPARIN 40 MG/0.4 ML SYR SC SCH (08:27)
[2017-03-19] MEDS: METHYLPREDNISOLONE IV 40 MG in SYRINGE 0 ML IV SCH (09:05)
[2017-03-19] MEDS: TIGEcycline INJ 50 MG in DEXTROSE 5% 100ML 100 ML IV SCH (12:19)
--- NOTE | 2017-03-19 12:31 | Pulmonology Progress Note ---
Pulmonary Progress Note Date of Service Mar 19, 2017. Attending Dr. Miner Subjective Patient seen and examined. States she's feeling better from a respiratory standpoint. Still having cough which is chronic for her with productive sputum. She denies any chest pain or worsening shortness of breath. Objective VS reviewed. Tm 36.9, BP 105-68-109/71, P 65-71, RR 16-22, SaO2 96-98% on 4 L. Cumulative balance is 3300 ml negative. Gen: AAOx3, NAD, speaking in full sentences. CVS: S1, S2, RRR Lungs: diminished breath sounds bilaterally, mild crackles at bases Abd: soft/NT/ND/BS+ Ext: no edema, no cyanosis, no clubbing Labs reviewed. Blood cultures 03/16/2017--NGTD Sputum cultures 03/17/2017--moderate normal pavan, now showing gram-negative bacilli Imaging reviewed. Medications reviewed. Assessment & Plan Bronchiectasis with acute exacerbation Acute on chronic respiratory failure with hypoxia and hypercapnea Chronic hypogammaglobulinemia Chest pain Sleep apnea Shortness of breath is resolving. Patient improving from a respiratory standpoint. Blood cultures negative to go follow-up sputum cultures now showing gram- negative bacilli, sensitivity still pending. Continue with tigecycline for now. Continue with aggressive pulmonary toilet. Continue with vibration vest, flutter valve, Mucomyst neb 3 ml BID, 7% saline nebs BID, and continued Duoneb. Start Prednisone 40 mg today. Continue to supplement O2- ideally maintain SaO2 between 88-92%. Avoid over- oxygenating this patient. Continue CPAP at night with home settings/machine. Pending culture results. Patient apparently likely be discharged home on antibiotics, steroid taper and home inhaled corticosteroids and bronchodilators. I discussed this with Dr. Calderon. Data Medications: Current Inpatient Medications Medications (Trade) Dose Ordered Sig/Man Route Start Time Stop Time Status Last Admin Dose Admin Enoxaparin Sodium (Lovenox Inj) 40 mg Q24H SC 03/17/17 08:00 04/16/17 07:59 03/19/17 08:27 40 MG Acetaminophen (Tylenol Tab) 650 mg Q4H PRN PO 03/17/17 01:15 04/16/17 01:14 Ondansetron HCl (Zofran Inj) 4 mg Q6H PRN IV 03/17/17 01:15 04/16/17 01:14 Insulin Aspart (novoLOG ASPART) SLIDING SCALE If C... ACHS SC 03/17/17 07:00 04/16/17 06:59 03/19/17 12:21 4 UNITS Glucose (Glucose 40% Gel) 15-30 GRAMS 15 GRAMS... UD PRN PO 03/17/17 01:15 04/16/17 01:14 Glucose (Glucose Chew Tab) 4-8 Tablets 4 Tabl... UD PRN PO 03/17/17 01:15 04/16/17 01:14 Dextrose (Dextrose 50% 50ML Syringe) 25-50ML OF 50% DW IV FOR... UD PRN IV 03/17/17 01:15 04/16/17 01:14 Glucagon (Glucagon Inj) 1 mg UD PRN SQ 03/17/17 01:15 04/16/17 01:14 Methylprednisolone Sodium Succinate 40 mg/Syringe 0.64 ml @ 1.5 mls/min Q8H IV 03/17/17 08:00 04/16/17 07:59 03/19/17 09:05 1.5 MLS/MIN Albuterol/ Ipratropium (Duoneb) 3 ml QIDR INH 03/17/17 08:00 04/16/17 07:59 03/19/17 11:17 3 ML Aspirin (Aspirin Chew) 81 mg QAM PO 03/17/17 09:00 04/16/17 08:59 03/19/17 08:24 81 MG Ferrous Sulfate (Feosol Tab) 325 mg DAILY PO 03/17/17 09:00 04/16/17 08:59 03/19/17 08:24 325 MG Fluticasone Propionate (Flonase Nasal [place]) 2 sprays QAM ESPERANZA 03/17/17 09:00 04/16/17 08:59 03/19/17 08:24 2 SPRAYS Folic Acid (Folvite Tab) 1 mg QAM PO 03/17/17 09:00 04/16/17 08:59 03/19/17 08:24 1 MG Metoprolol Tartrate (Lopressor Tab) 50 mg BID PO 03/17/17 09:00 04/16/17 08:59 12/9/17 08:24 50 MG Pantoprazole Sodium (Protonix Tab) 40 mg QAM PO 03/17/17 09:00 04/16/17 08:59 03/19/17 08:24 40 MG Acetylcysteine (Mucomyst 20% Inh Soln) 3 ml BIDR INH 03/17/17 20:00 04/16/17 19:59 03/19/17 07:15 3 ML Sodium Chloride (Sodium Chloride 7% Neb Solution) 4 ml BIDR INH 03/17/17 20:00 04/16/17 19:59 03/19/17 07:16 4 ML Miscellaneous Information (Pharmacy Consult) 1 ea UD PRN N/A 03/17/17 11:17 04/16/17 11:16 Tigecycline 50 mg/ Dextrose 105 ml @ 200 mls/hr Q12H IV 03/17/17 23:30 03/24/17 23:29 03/19/17 12:19 200 MLS/HR Heparin Sodium (Porcine) (Heparin 100 Unit/ml 5ml Flush) 5 ml PRN PRN IV 03/18/17 00:30 04/17/17 00:29 03/19/17 00:11 5 ML Vital Signs: Date Time Temp Pulse Resp B/P (MAP) Pulse Ox O2 Delivery O2 Flow Rate FiO2 03/19/17 12:01 97 Nasal Cannula 4.0 03/19/17 11:55 36.9 67 22 109/71 (84) 97 Room Air 03/19/17 11:18 71 16 98 Nasal Cannula 4.0 03/19/17 08:00 97 Nasal Cannula 4.0 03/19/17 07:43 36.7 69 18 105/69 (81) 98 Nasal Cannula 4.0 03/19/17 07:19 70 16 96 Nasal Cannula 4.0 03/19/17 04:00 36.8 65 105/68 (80) 97 03/19/17 04:00 97 Nasal Cannula 4.0 03/19/17 00:00 97 Nasal Cannula 4.0 03/18/17 23:42 37.1 74 19 118/72 (87) 97 Nasal Cannula 4.0 03/18/17 20:00 37.1 92 124/77 (93) 93 Nasal Cannula 4.0 03/18/17 20:00 93 Nasal Cannula 4.0 03/18/17 18:59 74 16 98 Nasal Cannula 4.0 03/18/17 16:15 36.4 66 18 108/69 (82) 98 03/18/17 16:00 Nasal Cannula 4.0 03/18/17 15:17 77 18 99 Nasal Cannula 4.0 Laboratory Results: Last 24 Hours Test 03/18/17 16:41 03/18/17 20:15 03/18/17 20:26 03/18/17 20:56 Bedside Glucose 139 mg/dl 319 mg/dl 230 mg/dl 229 mg/dl Test 03/19/17 03:49 03/19/17 07:11 White Blood Count 11.99 K/uL Red Blood Count 3.81 M/uL Hemoglobin 10.4 g/dL Hematocrit 32.2 % Mean Corpuscular Volume 84.5 fL Mean Corpuscular Hemoglobin 27.3 pg Mean Corpuscular Hemoglobin Concent 32.3 g/dl Platelet Count 247 K/uL Mean Platelet Volume 9.6 fL Neutrophils (%) (Auto) 90.3 % Lymphocytes (%) (Auto) 8.1 % Monocytes (%) (Auto) 1.3 % Eosinophils (%) (Auto) 0.1 % Basophils (%) (Auto) 0.0 % Neutrophils # (Auto) 10.83 K/uL Lymphocytes # (Auto) 0.97 K/uL Monocytes # (Auto) 0.16 K/uL Eosinophils # (Auto) 0.01 K/uL Basophils # (Auto) 0.00 K/uL RDW Standard Deviation 49.2 fL RDW Coefficient of Variation 16.0 % Immature Granulocyte % (Auto) 0.2 % Immature Granulocyte # (Auto) 0.02 K/uL Sodium Level 131 mmol/L Potassium Level 5.0 mmol/L Chloride Level 98 mmol/L Carbon Dioxide Level 31 mmol/L Anion Gap 2.0 mmol/L Blood Urea Nitrogen 33 mg/dl Creatinine 0.80 mg/dl Est Creatinine Clear Calc Drug Dose 76.2 ml/min Estimated GFR () 96.2 Estimated GFR (Non- 83.0 BUN/Creatinine Ratio 41.4 Random Glucose 140 mg/dl Calcium Level 8.7 mg/dl Bedside Glucose 142 mg/dl
--- NOTE | 2017-03-19 20:08 | Progress Note ---
Medicine Progress Note Date & Time of Visit: Mar 19, 2017 at 10:00. Subjective Pt was seen and examined Sitting in bed with no distress Pt said that she feels much better Denies any chest pain, palpitation, dizziness Objective Last 8 Hrs Date Time Temp Pulse Resp B/P (MAP) Pulse Ox O2 Delivery O2 Flow Rate FiO2 03/19/17 19:42 75 18 98 Nasal Cannula 4.0 03/19/17 17:00 36.8 70 20 117/68 (84) 97 Nasal Cannula 4.0 03/19/17 17:00 Nasal Cannula 4.0 03/19/17 16:10 36.9 69 18 120/68 (85) 98 03/19/17 16:00 97 Nasal Cannula 4.0 03/19/17 15:13 77 16 98 Nasal Cannula 4.0 03/19/17 12:01 97 Nasal Cannula 4.0 Physical Exam: General- no acute distress Head- atraumatic Eyes- PERRL, EOMI ENT- oropharynx clear Neck- supple, no JVD Lungs- Decrease BS Heart- regular Abdomen- normal bowel sounds, soft Extremities- no pretibial edema Neuro- alert, oriented x 3; PERRL, EOMI Skin- warm & dry Laboratory Results: Last 24 Hours Test 03/18/17 20:15 03/18/17 20:26 03/18/17 20:56 03/19/17 03:49 Bedside Glucose 319 mg/dl 230 mg/dl 229 mg/dl White Blood Count 11.99 K/uL Red Blood Count 3.81 M/uL Hemoglobin 10.4 g/dL Hematocrit 32.2 % Mean Corpuscular Volume 84.5 fL Mean Corpuscular Hemoglobin 27.3 pg Mean Corpuscular Hemoglobin Concent 32.3 g/dl Platelet Count 247 K/uL Mean Platelet Volume 9.6 fL Neutrophils (%) (Auto) 90.3 % Lymphocytes (%) (Auto) 8.1 % Monocytes (%) (Auto) 1.3 % Eosinophils (%) (Auto) 0.1 % Basophils (%) (Auto) 0.0 % Neutrophils # (Auto) 10.83 K/uL Lymphocytes # (Auto) 0.97 K/uL Monocytes # (Auto) 0.16 K/uL Eosinophils # (Auto) 0.01 K/uL Basophils # (Auto) 0.00 K/uL RDW Standard Deviation 49.2 fL RDW Coefficient of Variation 16.0 % Immature Granulocyte % (Auto) 0.2 % Immature Granulocyte # (Auto) 0.02 K/uL Sodium Level 131 mmol/L Potassium Level 5.0 mmol/L Chloride Level 98 mmol/L Carbon Dioxide Level 31 mmol/L Anion Gap 2.0 mmol/L Blood Urea Nitrogen 33 mg/dl Creatinine 0.80 mg/dl Est Creatinine Clear Calc Drug Dose 76.2 ml/min Estimated GFR () 96.2 Estimated GFR (Non- 83.0 BUN/Creatinine Ratio 41.4 Random Glucose 140 mg/dl Calcium Level 8.7 mg/dl Test 03/19/17 07:11 03/19/17 16:28 Bedside Glucose 142 mg/dl 139 mg/dl Assessment & Plan Acute on Chronic Respiratory failure Secondary to Bronchiectasis exacerbation Mild leukocytosis on admission CXR on admission showed persistent bronchiectasis with diffuse bilateral reticulonodular opacities S/P bronchoscopy on Feb 25 Grew Acinetobacter on last sputum cx Recently completed PO Bactrim as outpatient Case discussed with Pulmonary Preliminary Sputum cx growth gram negative bacilli blood cx no growth Recommended pulmonary toilet, Mucomyst, steroid, Neb treatment Will change IV solumedrol to prednisone Continue oxygen supplement ID consulted Continue IV tigecycline Clinically improved DM II: Last HbA1C:6.3 on 01/16/17 ISS, Monitor BS Hypogammaglobulinemia: Gets monthly Injection: last dose on 2016 on chronic hydrocortisone will hold as on IV Solu-medrol Sinus Tachycardia Denies any chest pain Troponin negative EKG showed sinus tachy with no significant ST changes Resolved DVT Px: Lovenox SQ Code Status: Full Code Disposition: Will transfer to medical Consultants: Pulmonary ID Current Inpatient Medications: Current Inpatient Medications Medications (Trade) Dose Ordered Sig/Man Route Start Time Stop Time Status Last Admin Dose Admin Enoxaparin Sodium (Lovenox Inj) 40 mg Q24H SC 03/17/17 08:00 04/16/17 07:59 03/19/17 08:27 40 MG Acetaminophen (Tylenol Tab) 650 mg Q4H PRN PO 03/17/17 01:15 04/16/17 01:14 Ondansetron HCl (Zofran Inj) 4 mg Q6H PRN IV 03/17/17 01:15 04/16/17 01:14 Insulin Aspart (novoLOG ASPART) SLIDING SCALE If C... ACHS SC 03/17/17 07:00 04/16/17 06:59 03/19/17 17:03 3 UNITS Glucose (Glucose 40% Gel) 15-30 GRAMS 15 GRAMS... UD PRN PO 03/17/17 01:15 04/16/17 01:14 Glucose (Glucose Chew Tab) 4-8 Tablets 4 Tabl... UD PRN PO 03/17/17 01:15 04/16/17 01:14 Dextrose (Dextrose 50% 50ML Syringe) 25-50ML OF 50% DW IV FOR... UD PRN IV 03/17/17 01:15 04/16/17 01:14 Glucagon (Glucagon Inj) 1 mg UD PRN SQ 03/17/17 01:15 04/16/17 01:14 Albuterol/ Ipratropium (Duoneb) 3 ml QIDR INH 03/17/17 08:00 04/16/17 07:59 03/19/17 19:34 3 ML Aspirin (Aspirin Chew) 81 mg QAM PO 03/17/17 09:00 04/16/17 08:59 03/19/17 08:24 81 MG Ferrous Sulfate (Feosol Tab) 325 mg DAILY PO 03/17/17 09:00 04/16/17 08:59 03/19/17 08:24 325 MG Fluticasone Propionate (Flonase Nasal [place]) 2 sprays QAM ESPERANZA 03/17/17 09:00 04/16/17 08:59 03/19/17 08:24 2 SPRAYS Folic Acid (Folvite Tab) 1 mg QAM PO 03/17/17 09:00 04/16/17 08:59 03/19/17 08:24 1 MG Metoprolol Tartrate (Lopressor Tab) 50 mg BID PO 03/17/17 09:00 04/16/17 08:59 03/19/17 08:24 50 MG Pantoprazole Sodium (Protonix Tab) 40 mg QAM PO 03/17/17 09:00 04/16/17 08:59 03/19/17 08:24 40 MG Acetylcysteine (Mucomyst 20% Inh Soln) 3 ml BIDR INH 03/17/17 20:00 04/16/17 19:59 03/19/17 19:34 3 ML Sodium Chloride (Sodium Chloride 7% Neb Solution) 4 ml BIDR INH 03/17/17 20:00 04/16/17 19:59 03/19/17 19:45 4 ML Miscellaneous Information (Pharmacy Consult) 1 ea UD PRN N/A 03/17/17 11:17 04/16/17 11:16 Tigecycline 50 mg/ Dextrose 105 ml @ 200 mls/hr Q12H IV 03/17/17 23:30 03/24/17 23:29 03/19/17 12:19 200 MLS/HR Heparin Sodium (Porcine) (Heparin 100 Unit/ml 5ml Flush) 5 ml PRN PRN IV 03/18/17 00:30 04/17/17 00:29 03/19/17 00:11 5 ML Methylprednisolone Sodium Succinate 40 mg/Syringe 0.64 ml @ 1.5 mls/min Q12 IV 03/19/17 21:00 04/16/17 07:59
[2017-03-19] MEDS ORDERED: METHYLPREDNISOLONE IV 40 MG in SYRINGE 0 ML IV SCH (21:00)
[2017-03-20] VITALS (8 sets, daily range): BP systolic 93–116; BP diastolic 56–75; PULSE 66–74; TEMP 36.5–36.7; O2SAT 95–97
[2017-03-20] MEDS: TIGEcycline INJ 50 MG in DEXTROSE 5% 100ML 100 ML IV SCH ×3 (00:31→23:35)
[2017-03-20 05:37] LABS: HEMATOCRIT 33.9 % (37-47); MEAN CELL VOLUME 83.9 fL (80-100); MEAN CORPUSCULAR HEMOGLOBIN 26.5 pg (25-34); MEAN CORPUSCULAR HGB CONC 31.6 g/dl (32-36); MEAN PLATELET VOLUME 9.3 fL (7.4-10.4); PLATELET COUNT 238 K/uL (130-400); RED BLOOD COUNT 4.04 M/uL (4.2-5.4); WHITE BLOOD COUNT 8.93 K/uL (4.8-10.8)
[2017-03-20 06:03] LABS: BUN/CREATININE RATIO 43.9 (10-20); CALCIUM 8.7 mg/dl (8.5-10.1); CREATININE 0.74 mg/dl (0.60-1.20)
[2017-03-20] MEDS: SODIUM CHLORIDE 7% 4 ML NEB INH SCH ×2 (07:33→19:09)
[2017-03-20] MEDS: ALBUT/IPRATROP 3MG/0.5MG NEB 3 ML VIAL INH SCH ×4 (07:33→18:48)
[2017-03-20] MEDS: ACETYLCYSTEINE 20% INHAL SOLN ***DISPENSED BY RESP. INH SCH ×2 (07:33→18:48)
[2017-03-20] MEDS: FERROUS SULFATE 325 MG TAB PO SCH (08:25)
[2017-03-20] MEDS: FLUTICASONE PROPIONATE NA SPR 16 GM BTL NAE SCH (08:25)
[2017-03-20] MEDS: PANTOprazole SOD 40 MG TAB PO SCH (08:25)
[2017-03-20] MEDS: ASPIRIN 81 MG CHEW PO SCH (08:26)
[2017-03-20] MEDS: ENOXAPARIN 40 MG/0.4 ML SYR SC SCH (08:27)
[2017-03-20] MEDS: METOPROLOL TARTRATE 50 MG TAB PO SCH ×2 (08:32→21:04)
[2017-03-20] MEDS: INSULIN ASPART 100 UNITS/ML 3 ML PEN SC SCH ×4 (08:33→21:08)
--- NOTE | 2017-03-20 17:00 | Progress Note ---
Medicine Progress Note Date & Time of Visit: Mar 20, 2017 at 11:56. Subjective Pt was seen and examined Sitting in bed with no distress Pt said that she feels much better She said that her breathing feels much better She would like to go home Denies any chest pain, palpitation, dizziness Objective Last 8 Hrs Date Time Temp Pulse Resp B/P (MAP) Pulse Ox O2 Delivery O2 Flow Rate FiO2 03/20/17 16:11 36.5 72 18 106/68 (81) 97 Nasal Cannula 3.0 03/20/17 14:41 74 16 97 Nasal Cannula 4.0 03/20/17 11:21 66 16 97 Nasal Cannula 4.0 Physical Exam: General- no acute distress Head- atraumatic Eyes- PERRL, EOMI ENT- oropharynx clear Neck- supple, no JVD Lungs- Decrease BS Heart- regular Abdomen- normal bowel sounds, soft Extremities- no pretibial edema Neuro- alert, oriented x 3; PERRL, EOMI Skin- warm & dry Laboratory Results: Last 24 Hours Test 03/19/17 20:56 03/20/17 05:26 03/20/17 07:55 03/20/17 11:32 Bedside Glucose 172 mg/dl 116 mg/dl 131 mg/dl White Blood Count 8.93 K/uL Red Blood Count 4.04 M/uL Hemoglobin 10.7 g/dL Hematocrit 33.9 % Mean Corpuscular Volume 83.9 fL Mean Corpuscular Hemoglobin 26.5 pg Mean Corpuscular Hemoglobin Concent 31.6 g/dl RDW Standard Deviation 49.2 fL RDW Coefficient of Variation 16.0 % Platelet Count 238 K/uL Mean Platelet Volume 9.3 fL Sodium Level 132 mmol/L Potassium Level 5.0 mmol/L Chloride Level 98 mmol/L Carbon Dioxide Level 32 mmol/L Anion Gap 2.0 mmol/L Blood Urea Nitrogen 32 mg/dl Creatinine 0.74 mg/dl Est Creatinine Clear Calc Drug Dose 82.0 ml/min Estimated GFR () 105.7 Estimated GFR (Non- 91.2 BUN/Creatinine Ratio 43.9 Random Glucose 146 mg/dl Calcium Level 8.7 mg/dl Assessment & Plan Acute on Chronic Respiratory failure Secondary to Bronchiectasis exacerbation Mild leukocytosis on admission CXR on admission showed persistent bronchiectasis with diffuse bilateral reticulonodular opacities S/P bronchoscopy on Feb 25 Grew Acinetobacter on last sputum cx Recently completed PO Bactrim as outpatient Case discussed with Pulmonary Preliminary Sputum cx growth gram negative bacilli blood cx no growth Recommended pulmonary toilet, Mucomyst, steroid, Neb treatment Will change IV solumedrol to prednisone Continue oxygen supplement ID consulted Continue IV tigecycline Sensitivity pending Will adjust abx according to the sensitivity Clinically improved DM II: Last HbA1C:6.3 on 01/16/17 ISS, Monitor BS Hypogammaglobulinemia: Gets monthly Injection: last dose on 2016 on chronic hydrocortisone will hold as on IV Solu-medrol Sinus Tachycardia Denies any chest pain Troponin negative EKG showed sinus tachy with no significant ST changes Resolved DVT Px: Lovenox SQ Code Status: Full Code Disposition: Sensitivity pending to adjust abx Consultants: Pulmonary ID Current Inpatient Medications: Current Inpatient Medications Medications (Trade) Dose Ordered Sig/Man Route Start Time Stop Time Status Last Admin Dose Admin Enoxaparin Sodium (Lovenox Inj) 40 mg Q24H SC 03/17/17 08:00 04/16/17 07:59 03/20/17 08:27 40 MG Acetaminophen (Tylenol Tab) 650 mg Q4H PRN PO 03/17/17 01:15 04/16/17 01:14 Ondansetron HCl (Zofran Inj) 4 mg Q6H PRN IV 03/17/17 01:15 04/16/17 01:14 Insulin Aspart (novoLOG ASPART) SLIDING SCALE If C... ACHS SC 03/17/17 07:00 04/16/17 06:59 03/20/17 12:55 2 UNITS Glucose (Glucose 40% Gel) 15-30 GRAMS 15 GRAMS... UD PRN PO 03/17/17 01:15 04/16/17 01:14 Glucose (Glucose Chew Tab) 4-8 Tablets 4 Tabl... UD PRN PO 03/17/17 01:15 04/16/17 01:14 Dextrose (Dextrose 50% 50ML Syringe) 25-50ML OF 50% DW IV FOR... UD PRN IV 03/17/17 01:15 04/16/17 01:14 Glucagon (Glucagon Inj) 1 mg UD PRN SQ 03/17/17 01:15 04/16/17 01:14 Albuterol/ Ipratropium (Duoneb) 3 ml QIDR INH 03/17/17 08:00 04/16/17 07:59 03/20/17 14:41 3 ML Aspirin (Aspirin Chew) 81 mg QAM PO 03/17/17 09:00 04/16/17 08:59 03/20/17 08:26 81 MG Ferrous Sulfate (Feosol Tab) 325 mg DAILY PO 03/17/17 09:00 04/16/17 08:59 03/20/17 08:25 325 MG Fluticasone Propionate (Flonase Nasal [place]) 2 sprays QAM ESPERANZA 03/17/17 09:00 04/16/17 08:59 03/20/17 08:25 2 SPRAYS Folic Acid (Folvite Tab) 1 mg QAM PO 03/17/17 09:00 04/16/17 08:59 03/20/17 08:25 1 MG Metoprolol Tartrate (Lopressor Tab) 50 mg BID PO 03/17/17 09:00 04/16/17 08:59 03/20/17 08:32 50 MG Pantoprazole Sodium (Protonix Tab) 40 mg QAM PO 03/17/17 09:00 04/16/17 08:59 03/20/17 08:25 40 MG Acetylcysteine (Mucomyst 20% Inh Soln) 3 ml BIDR INH 03/17/17 20:00 04/16/17 19:59 03/20/17 07:33 3 ML Sodium Chloride (Sodium Chloride 7% Neb Solution) 4 ml BIDR INH 03/17/17 20:00 04/16/17 19:59 03/20/17 07:33 4 ML Miscellaneous Information (Pharmacy Consult) 1 ea UD PRN N/A 03/17/17 11:17 04/16/17 11:16 Tigecycline 50 mg/ Dextrose 105 ml @ 200 mls/hr Q12H IV 03/17/17 23:30 03/24/17 23:29 03/20/17 11:34 200 MLS/HR Heparin Sodium (Porcine) (Heparin 100 Unit/ml 5ml Flush) 5 ml PRN PRN IV 03/18/17 00:30 04/17/17 00:29 03/20/17 05:24 5 ML Prednisone (PredniSONE TAB) 40 mg DAILY PO 03/20/17 09:00 04/19/17 08:59 03/20/17 08:25 40 MG
[2017-03-21] VITALS (9 sets, daily range): BP systolic 92–124; BP diastolic 56–75; PULSE 66–115; TEMP 36.4–36.9; O2SAT 94–97
[2017-03-21] MEDS: SODIUM CHLORIDE 7% 4 ML NEB INH SCH ×2 (07:13→19:26)
[2017-03-21] MEDS: ACETYLCYSTEINE 20% INHAL SOLN ***DISPENSED BY RESP. INH SCH ×2 (07:13→19:26)
[2017-03-21] MEDS: ALBUT/IPRATROP 3MG/0.5MG NEB 3 ML VIAL INH SCH ×4 (07:13→19:26)
[2017-03-21] MEDS: METOPROLOL TARTRATE 50 MG TAB PO SCH ×2 (09:00→21:00)
[2017-03-21] MEDS: ENOXAPARIN 40 MG/0.4 ML SYR SC SCH (09:05)
[2017-03-21] MEDS: FLUTICASONE PROPIONATE NA SPR 16 GM BTL NAE SCH (09:06)
[2017-03-21] MEDS: FERROUS SULFATE 325 MG TAB PO SCH (09:07)
[2017-03-21] MEDS: PANTOprazole SOD 40 MG TAB PO SCH (09:07)
[2017-03-21] MEDS: INSULIN ASPART 100 UNITS/ML 3 ML PEN SC SCH ×4 (09:12→21:06)
--- NOTE | 2017-03-21 10:10 | Progress Note ---
Subjective Date of Service: Mar 21, 2017. Subjective Pt evaluation today including: conversation w/ patient, physical exam, chart review, lab review pt seen in follow up, tolerating tig. comfortable in bed. no resp distress, remains on O2. afebrile. no abd pain. blood cultures negative to date, sputum culture grew Stenotrophomonas. On day#5 abx. Problem List Medical Problems: (1) Acute and chronic respiratory failure with hypercapnia Status: Acute (2) Atrial fibrillation with rapid ventricular response Status: Acute (3) Atypical pneumonia Status: Acute (4) Bronchiectasis Status: Acute (5) Bronchiectasis Status: Acute (6) Bronchitis Status: Acute (7) Chronic lung disease Status: Acute (8) COPD exacerbation Status: Acute (9) Dyspnea Status: Acute (10) Fever Status: Acute (11) Fever Status: Acute (12) Hypoxia Status: Acute (13) Hypoxia Status: Acute (14) Hypoxia Status: Acute (15) Idiopathic bronchiectasis Status: Chronic (16) PNA (pneumonia) Status: Acute (17) PNA (pneumonia) Status: Acute (18) Pneumonia Status: Acute (19) Pneumonia Status: Acute (20) Sepsis Status: Acute (21) SOB (shortness of breath) Status: Acute Objective Vital Signs Date Time Temp Pulse Resp B/P (MAP) Pulse Ox O2 Delivery O2 Flow Rate FiO2 03/21/17 08:00 Nasal Cannula 3.0 03/21/17 07:15 84 18 97 Nasal Cannula 3.0 03/21/17 07:09 36.8 69 20 92/56 (68) 96 Nasal Cannula 3.0 03/21/17 00:16 36.6 66 20 100/62 (75) 96 3.0 03/20/17 23:35 Nasal Cannula 3.0 Humidified Oxygen 03/20/17 19:13 95 Nasal Cannula 4.0 03/20/17 18:50 72 18 95 Nasal Cannula 4.0 03/20/17 16:11 36.5 72 18 106/68 (81) 97 Nasal Cannula 3.0 03/20/17 16:00 Nasal Cannula 4.0 03/20/17 14:41 74 16 97 Nasal Cannula 4.0 03/20/17 11:21 66 16 97 Nasal Cannula 4.0 Physical Exam General Appearance: WD/WN, no apparent distress Eyes: normal inspection, EOMI Neck: supple Respiratory/Chest: normal breath sounds, no respiratory distress, + decreased breath sounds Cardiovascular: regular rate, rhythm, no edema Abdomen: non tender Extremities: non-tender, no pedal edema Neurologic/Psychiatric: alert, oriented x 3 Skin: normal color, no rash Laboratory Results Item Value Date Time Gram Stain - Final Complete 03/17/17 0410 Sputum Expectorated Sputum Blood Culture - Preliminary Resulted 03/16/17 2344 Blood NO GROWTH TO DATE. Blood Culture - Preliminary Resulted 03/16/17 2333 Blood NO GROWTH TO DATE. Last 24 Hours Test 03/20/17 11:32 03/20/17 16:48 03/20/17 20:46 03/21/17 07:18 Bedside Glucose 131 mg/dl 142 mg/dl 226 mg/dl 94 mg/dl Assessment and Plan (1) COPD exacerbation Assessment & Plan: continue IV abx for now, would give 10 days total, maintain IV for now but could be transitioned to po bactrim upon d/c to complete course.
[2017-03-21] MEDS: ASPIRIN 81 MG CHEW PO SCH (11:55)
[2017-03-21] MEDS: TIGEcycline INJ 50 MG in DEXTROSE 5% 100ML 100 ML IV SCH ×2 (11:57→23:44)
--- NOTE | 2017-03-21 18:00 | Progress Note ---
Medicine Progress Note Date & Time of Visit: Mar 21, 2017 at 17:55. Subjective Pt was seen and examined Sitting in bed with no distress Denies any chest pain, palpitation, dizziness and sob Objective Last 8 Hrs Date Time Temp Pulse Resp B/P (MAP) Pulse Ox O2 Delivery O2 Flow Rate FiO2 03/21/17 16:05 82 18 95 Nasal Cannula 3.0 03/21/17 16:03 Nasal Cannula 3.0 03/21/17 15:18 36.4 88 18 105/71 (82) 96 Nasal Cannula 3.0 03/21/17 11:35 68 18 94 Nasal Cannula 3.0 Physical Exam: General- no acute distress Head- atraumatic Eyes- PERRL, EOMI ENT- oropharynx clear Neck- supple, no JVD Lungs- Decrease BS Heart- regular Abdomen- normal bowel sounds, soft Extremities- no pretibial edema Neuro- alert, oriented x 3; PERRL, EOMI Skin- warm & dry Laboratory Results: Last 24 Hours Test 03/20/17 20:46 03/21/17 07:18 03/21/17 11:06 03/21/17 16:29 Bedside Glucose 226 mg/dl 94 mg/dl 92 mg/dl 175 mg/dl Assessment & Plan Acute on Chronic Respiratory failure Secondary to Bronchiectasis exacerbation Mild leukocytosis on admission CXR on admission showed persistent bronchiectasis with diffuse bilateral reticulonodular opacities S/P bronchoscopy on Feb 25 Grew Acinetobacter on last sputum cx Recently completed PO Bactrim as outpatient Case discussed with Pulmonary Preliminary Sputum cx growth gram negative bacilli blood cx no growth Recommended pulmonary toilet, Mucomyst, steroid, Neb treatment Will change IV solumedrol to prednisone Continue oxygen supplement ID consulted Continue IV tigecycline Sensitivity pending Will adjust abx according to the sensitivity 03/21 Sputum cx growth STENOTROPHOMONAS MALTOPHILIA Sensitive to Bactrim and Ceftazidime Continue IV tigecycline for today and will transition to Bactrim PO BID to complete 10 days course of abx Continue prednisone taper Continue supplement oxygen ID on board DM II: Last HbA1C:6.3 on 01/16/17 ISS, Monitor BS Hypogammaglobulinemia: Gets monthly Injection: last dose on 2016 on chronic hydrocortisone will hold as on IV Solu-medrol Sinus Tachycardia Denies any chest pain Troponin negative EKG showed sinus tachy with no significant ST changes Resolved DVT Px: Lovenox SQ Code Status: Full Code Disposition: Will discharge home tomorrow Consultants: Pulmonary ID Current Inpatient Medications: Current Inpatient Medications Medications (Trade) Dose Ordered Sig/Man Route Start Time Stop Time Status Last Admin Dose Admin Enoxaparin Sodium (Lovenox Inj) 40 mg Q24H SC 03/17/17 08:00 04/16/17 07:59 03/21/17 09:05 40 MG Acetaminophen (Tylenol Tab) 650 mg Q4H PRN PO 03/17/17 01:15 04/16/17 01:14 Ondansetron HCl (Zofran Inj) 4 mg Q6H PRN IV 03/17/17 01:15 04/16/17 01:14 Insulin Aspart (novoLOG ASPART) SLIDING SCALE If C... ACHS SC 03/17/17 07:00 04/16/17 06:59 03/21/17 17:27 3 UNITS Glucose (Glucose 40% Gel) 15-30 GRAMS 15 GRAMS... UD PRN PO 03/17/17 01:15 04/16/17 01:14 Glucose (Glucose Chew Tab) 4-8 Tablets 4 Tabl... UD PRN PO 03/17/17 01:15 04/16/17 01:14 Dextrose (Dextrose 50% 50ML Syringe) 25-50ML OF 50% DW IV FOR... UD PRN IV 03/17/17 01:15 04/16/17 01:14 Glucagon (Glucagon Inj) 1 mg UD PRN SQ 03/17/17 01:15 04/16/17 01:14 Albuterol/ Ipratropium (Duoneb) 3 ml QIDR INH 03/17/17 08:00 04/16/17 07:59 03/21/17 16:04 3 ML Aspirin (Aspirin Chew) 81 mg QAM PO 03/17/17 09:00 04/16/17 08:59 03/21/17 11:55 81 MG Ferrous Sulfate (Feosol Tab) 325 mg DAILY PO 03/17/17 09:00 04/16/17 08:59 03/21/17 09:07 325 MG Fluticasone Propionate (Flonase Nasal [place]) 2 sprays QAM ESPERANZA 03/17/17 09:00 04/16/17 08:59 03/21/17 09:06 2 SPRAYS Folic Acid (Folvite Tab) 1 mg QAM PO 03/17/17 09:00 04/16/17 08:59 03/21/17 09:08 1 MG Metoprolol Tartrate (Lopressor Tab) 50 mg BID PO 03/17/17 09:00 04/16/17 08:59 03/20/17 21:04 50 MG Pantoprazole Sodium (Protonix Tab) 40 mg QAM PO 03/17/17 09:00 04/16/17 08:59 03/21/17 09:07 40 MG Acetylcysteine (Mucomyst 20% Inh Soln) 3 ml BIDR INH 03/17/17 20:00 04/16/17 19:59 03/21/17 07:13 3 ML Sodium Chloride (Sodium Chloride 7% Neb Solution) 4 ml BIDR INH 03/17/17 20:00 04/16/17 19:59 03/21/17 07:13 4 ML Miscellaneous Information (Pharmacy Consult) 1 ea UD PRN N/A 03/17/17 11:17 04/16/17 11:16 Tigecycline 50 mg/ Dextrose 105 ml @ 200 mls/hr Q12H IV 03/17/17 23:30 03/24/17 23:29 03/21/17 11:57 200 MLS/HR Heparin Sodium (Porcine) (Heparin 100 Unit/ml 5ml Flush) 5 ml PRN PRN IV 03/18/17 00:30 04/17/17 00:29 03/21/17 12:34 5 ML Prednisone (PredniSONE TAB) 40 mg DAILY PO 03/20/17 09:00 04/19/17 08:59 03/21/17 09:07 40 MG
[2017-03-22 07:14] VITALS: BP 109/77; PULSE 84; TEMP 36.8; O2SAT 96
[2017-03-22] MEDS: ACETYLCYSTEINE 20% INHAL SOLN ***DISPENSED BY RESP. INH SCH (07:30)
[2017-03-22] MEDS: ALBUT/IPRATROP 3MG/0.5MG NEB 3 ML VIAL INH SCH (07:30)
[2017-03-22 07:31] VITALS: PULSE 96; O2SAT 96
[2017-03-22] MEDS: SODIUM CHLORIDE 7% 4 ML NEB INH SCH (07:41)
[2017-03-22] MEDS: FLUTICASONE PROPIONATE NA SPR 16 GM BTL NAE SCH (08:08)
[2017-03-22] MEDS: INSULIN ASPART 100 UNITS/ML 3 ML PEN SC SCH (08:14)
[2017-03-22] MEDS: ENOXAPARIN 40 MG/0.4 ML SYR SC SCH (08:17)
[2017-03-22] MEDS: FERROUS SULFATE 325 MG TAB PO SCH (08:18)
[2017-03-22] MEDS: METOPROLOL TARTRATE 50 MG TAB PO SCH (08:18)
[2017-03-22] MEDS: PANTOprazole SOD 40 MG TAB PO SCH (08:18)
[2017-03-22] MEDS: ASPIRIN 81 MG CHEW PO SCH (08:26)
--- NOTE | 2017-03-22 08:57 | Progress Note ---
Medicine Progress Note Date & Time of Visit: Mar 22, 2017 at 08:54. Subjective Pt was seen and examined Lying in bed with no distress Denies any chest pain, palpitation, dizziness and SOB Objective Last 8 Hrs Date Time Temp Pulse Resp B/P (MAP) Pulse Ox O2 Delivery O2 Flow Rate FiO2 03/22/17 07:31 96 16 96 Nasal Cannula 2.0 03/22/17 07:14 36.8 84 20 109/77 (88) 96 Nasal Cannula 2.0 Physical Exam: General- no acute distress Head- atraumatic Eyes- PERRL, EOMI ENT- oropharynx clear Neck- supple, no JVD Lungs- Decrease BS Heart- regular Abdomen- normal bowel sounds, soft Extremities- no pretibial edema Neuro- alert, oriented x 3; PERRL, EOMI Skin- warm & dry Laboratory Results: Last 24 Hours Test 03/21/17 11:06 03/21/17 16:29 03/21/17 20:10 03/22/17 07:26 Bedside Glucose 92 mg/dl 175 mg/dl 215 mg/dl 83 mg/dl Assessment & Plan Acute on Chronic Respiratory failure Secondary to Bronchiectasis exacerbation Mild leukocytosis on admission CXR on admission showed persistent bronchiectasis with diffuse bilateral reticulonodular opacities S/P bronchoscopy on Feb 25 Grew Acinetobacter on last sputum cx Recently completed PO Bactrim as outpatient Case discussed with Pulmonary Preliminary Sputum cx growth gram negative bacilli blood cx no growth Recommended pulmonary toilet, Mucomyst, steroid, Neb treatment Will change IV solumedrol to prednisone Continue oxygen supplement ID consulted Continue IV tigecycline Sensitivity pending Will adjust abx according to the sensitivity 03/22 Sputum cx growth STENOTROPHOMONAS MALTOPHILIA Sensitive to Bactrim and Ceftazidime Continue IV tigecycline for today and will transition to Bactrim PO BID to complete 10 days course of bactrim Case discussed with ID dr. Gary Continue prednisone taper Continue supplement oxygen ID on board DM II: Last HbA1C:6.3 on 01/16/17 ISS, Monitor BS Hypogammaglobulinemia: Gets monthly Injection: last dose on 2016 on chronic hydrocortisone will hold as on IV Solu-medrol Sinus Tachycardia Denies any chest pain Troponin negative EKG showed sinus tachy with no significant ST changes Resolved DVT Px: Lovenox SQ Code Status: Full Code Disposition: Will discharge home today Follow up with primary care provider Ivonne MALIK on 03/28 @ 10:35 AM Consultants: Pulmonary ID Current Inpatient Medications: Current Inpatient Medications Medications (Trade) Dose Ordered Sig/Man Route Start Time Stop Time Status Last Admin Dose Admin Enoxaparin Sodium (Lovenox Inj) 40 mg Q24H SC 03/17/17 08:00 04/16/17 07:59 03/22/17 08:17 40 MG Acetaminophen (Tylenol Tab) 650 mg Q4H PRN PO 03/17/17 01:15 04/16/17 01:14 Ondansetron HCl (Zofran Inj) 4 mg Q6H PRN IV 03/17/17 01:15 04/16/17 01:14 Insulin Aspart (novoLOG ASPART) SLIDING SCALE If C... ACHS SC 03/17/17 07:00 04/16/17 06:59 03/22/17 08:14 2 UNITS Glucose (Glucose 40% Gel) 15-30 GRAMS 15 GRAMS... UD PRN PO 03/17/17 01:15 04/16/17 01:14 Glucose (Glucose Chew Tab) 4-8 Tablets 4 Tabl... UD PRN PO 03/17/17 01:15 04/16/17 01:14 Dextrose (Dextrose 50% 50ML Syringe) 25-50ML OF 50% DW IV FOR... UD PRN IV 03/17/17 01:15 04/16/17 01:14 Glucagon (Glucagon Inj) 1 mg UD PRN SQ 03/17/17 01:15 04/16/17 01:14 Albuterol/ Ipratropium (Duoneb) 3 ml QIDR INH 03/17/17 08:00 04/16/17 07:59 03/22/17 07:30 3 ML Aspirin (Aspirin Chew) 81 mg QAM PO 03/17/17 09:00 04/16/17 08:59 03/22/17 08:26 81 MG Ferrous Sulfate (Feosol Tab) 325 mg DAILY PO 03/17/17 09:00 04/16/17 08:59 03/22/17 08:18 325 MG Fluticasone Propionate (Flonase Nasal [place]) 2 sprays QAM ESPERANZA 03/17/17 09:00 04/16/17 08:59 03/22/17 08:08 2 SPRAYS Folic Acid (Folvite Tab) 1 mg QAM PO 03/17/17 09:00 04/16/17 08:59 03/22/17 08:18 1 MG Metoprolol Tartrate (Lopressor Tab) 50 mg BID PO 03/17/17 09:00 04/16/17 08:59 03/22/17 08:18 50 MG Pantoprazole Sodium (Protonix Tab) 40 mg QAM PO 03/17/17 09:00 04/16/17 08:59 03/22/17 08:18 40 MG Acetylcysteine (Mucomyst 20% Inh Soln) 3 ml BIDR INH 03/17/17 20:00 04/16/17 19:59 03/22/17 07:30 3 ML Sodium Chloride (Sodium Chloride 7% Neb Solution) 4 ml BIDR INH 03/17/17 20:00 04/16/17 19:59 03/22/17 07:41 4 ML Miscellaneous Information (Pharmacy Consult) 1 ea UD PRN N/A 03/17/17 11:17 04/16/17 11:16 Tigecycline 50 mg/ Dextrose 105 ml @ 200 mls/hr Q12H IV 03/17/17 23:30 03/24/17 23:29 03/21/17 23:44 200 MLS/HR Heparin Sodium (Porcine) (Heparin 100 Unit/ml 5ml Flush) 5 ml PRN PRN IV 03/18/17 00:30 04/17/17 00:29 03/22/17 00:20 5 ML Prednisone (PredniSONE TAB) 40 mg DAILY PO 03/20/17 09:00 04/19/17 08:59 03/22/17 08:17 40 MG
[2017-03-22] MEDS ORDERED: SULF800T23 PO ×2 (09:06→09:14)
[2017-03-22] MEDS ORDERED: PRD20 PO ×2 (09:06→09:16)
[2017-03-22] MEDS ORDERED: MCMIN20ML INH (09:06)
--- NOTE | 2017-03-22 09:12 | Discharge Instructions ---
Discharge Instructions Date of Service Mar 22, 2017. Admission Reason for Admission: Respiratory Failure, [id number] Discharge Discharge Diagnosis / Problem: Acute on Chronic Respiratory failure, Bronchiectais exacerbation, Discharge Goals Goal(s): Decrease discomfort, Improve function, Improve disease control Activity Recommendations Activity Limitations: resume your previous activity (as tolerated) . Instructions / Follow-Up Instructions / Follow-Up Follow up with your primary care provider Ivonne MALIK on 03/28 @ 10:35 AM Follow up with your lung specialist Continue oxygen supplement Complete course of Antibiotic with Bactrim for 10days Continue prednisone taper course Current Hospital Diet Patient's current hospital diet: Diabetes Type 2 Diet Discharge Diet Recommended Diet: Diabetes Type 2 Diet Pending Studies Studies pending at discharge: no Laboratory Results Hemoglobin A1c Test 01/16/17 05:33 Range/Units Estimated Average Glucose 134 mg/dl Hemoglobin A1c 6.3 H 4.5-5.6 % Medical Emergencies . Who to Call and When: Medical Emergencies: If at any time you feel your situation is an emergency, please call 911 immediately. . Non-Emergent Contact Non-Emergency issues call your: Primary Care Provider Call Non-Emergent contact if: you have a fever, you have any medication questions . . "Provider Documentation" section prepared by Emiliana Calderon. . VTE Core Measure Inpt VTE Proph given/why not?: Enoxaparin (Lovenox)[facility] Drug Monitoring Program Search Results: no issues identified
[2017-03-22 10:47] VITALS: BP 109/77; PULSE 96; TEMP 36.8; O2SAT 96
== END 2017-03-22 11:14 | disposition home or self-care (01) | DRG 190 ==
LOC: C.EDB 22:56 → C.2T 03-17 01:15 → ENRESERV 03-17 01:31 → C.MS2W 03-19 17:24
PROVIDERS: ADMIT Internal Medicine; ATTEND Internal Medicine
DX: J47.1 Bronchiectasis with (acute) exacerbation (principal); J96.21 Acute and chronic respiratory failure with hypoxia; J96.22 Acute and chronic respiratory failure with hypercapnia; D80.1 Nonfamilial hypogammaglobulinemia; R00.0 Tachycardia, unspecified; J45.909 Unspecified asthma, uncomplicated; E09.9 Drug or chemical induced diabetes mellitus without complications; T38.0X5A Adverse effect of glucocorticoids and synthetic analogues, initial encounter; K21.9 Gastro-esophageal reflux disease without esophagitis; I27.20 Pulmonary hypertension, unspecified; G47.33 Obstructive sleep apnea (adult) (pediatric); Z51.81 Encounter for therapeutic drug level monitoring; Z79.899 Other long term (current) drug therapy; Z79.4 Long term (current) use of insulin; Z79.82 Long term (current) use of aspirin; Z79.52 Long term (current) use of systemic steroids; Z99.81 Dependence on supplemental oxygen; Z87.01 Personal history of pneumonia (recurrent); Z87.74 Personal history of (corrected) congenital malformations of heart and circulatory system; Z82.5 Family history of asthma and other chronic lower respiratory diseases; Z83.3 Family history of diabetes mellitus; Z82.49 Family history of ischemic heart disease and other diseases of the circulatory system; Z84.1 Family history of disorders of kidney and ureter

== ENCOUNTER → 2017-04-07 | Outpatient (CLI) | payer OTHER ==
[~2017-04-07] MED LIST changes: +ASCO500C43 PO; +MCMIN20ML INH; +PRD20 PO; +SULF800T23 PO; -vitamin c PO
[2017-04-07 12:40] LABS: INFLUENZA A PCR Neg for Influ A (NEG); INFLUENZA B PCR Neg for Influ B (NEG)
== END | disposition home or self-care (01) ==
LOC: C.LAB1850 10:44
PROVIDERS: ATTEND Physician Assistant
DX: J47.9 Bronchiectasis, uncomplicated (principal)

== ENCOUNTER 2017-04-29 09:30 | Inpatient (IN) | payer OTHER ==
[~2017-04-29] VITALS: Ht 160 cm; Wt 71.9 kg
--- NOTE | 2017-04-29 10:01 | EMERGENCY ROOM VISIT NOTE ---
History Report prepared by Alvaro: Sam Giordano Under the Supervision of: Dr. Teodoro Moreno M.D. First contact with patient: 09:46 Chief Complaint: BACK PAIN Stated Complaint: SEVERE PAIN IN R LUNG AREA History of Present Illness The patient is a 56 year old female who presents to the Emergency Room with complaints of constant right side and right upper back pain. The patient describes her pain as "sharp" and notes that it is worse with deep inhalation. She is short of breath, and wears oxygen at her baseline her her sister notes that the pain with inhalation is making it worse. She also complains of a wet producing cough. The patient has a history of pleurisy. Source of History: patient Position: back (Right, Right Ribs) Quality: sharp Timing: constant Modifying Factors (Worsening): breathing Review of Systems See HPI for pertinent positives & negatives. A total of 10 systems reviewed and were otherwise negative. 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 Nurse's notes were reviewed and I agree with. Family History Asthma SISTER Cancer SISTER FATHER MOTHER Diabetes mellitus Gallbladder disease Heart disease Hypertension FATHER Kidney disease Kidney stones Lung disease Social History Smoking Status: Never Smoker Alcohol Use: none Drug Use: none Marital Status: single Occupation Status: other Current/Historical Medications Scheduled Acetaminophen (Tylenol Arthritis Ext Rel), 1,300 MG PO DAILY Alendronate Sodium (Alendronate Sodium), 70 MG PO Ascorbic Acid (Ascorbic Acid), 250 MG PO DAILY Aspirin (Aspirin Ec), 81 MG PO DAILY Calcium Carbonate-Vitamin D W/ (Caltrate 600 Plus), 1 TAB PO BID Cyanocobalamin (Vitamin B12), 1,000 MCG PO DAILY Famotidine In Nacl (Famotidine Premixed), 2 ML IV DAILY Ferrous Sulfate (Ferrous Sulfate), 325 MG PO DAILY Fluticasone Propionate (Nasal) (Flonase Allergy Relief), 2 SPRY ESPERANZA QAM Folic Acid (Folic Acid), 1 MG PO QAM Home O2 Therapy (Oxygen), 2-4 LITERS NA DAILY Hydrocortisone (Cortef), 15 MG PO QAM Hydrocortisone (Cortef), 5 MG PO QPM Insulin Human NPH (Novolin N), 10 UNITS SQ QAM Magnesium Oxide (Mg Supplement (Magnesium), 400 MG PO DAILY Metoprolol Tartrate (Lopressor) (Lopressor), 50 MG PO BID Multiple Vitamin (Multivitamin), 1 TAB PO QAM Pantoprazole (Protonix), 40 MG PO QAM Prednisone Tab (Prednisone), 10 MG PO UD Probiotic Product (Probiotic), 1 CAP PO DAILY Sulfa/Trimethoprim (Bactrim Ds 800MG/160MG), 1 TAB PO BID Scheduled PRN Albuterol Sulf (Albuterol Sulfate), 1 DOSE INH Q4H PRN for Shortness of Breath Diphenhydramine Hcl (Benadryl Allergy), 50 MG IV DAILY PRN for HYPERSENSITIVITY REACTION Epinephrine Hcl (Epinephrine Hcl), 0.3 ML IM UD PRN for HYPERSENSITIVITY REACTION Guaifenesin (Mucinex Maximum Strength), 1,200 MG PO BID PRN for CONGESTION Heparin Sodium (Porcine) Lock (Heparin Lock Flush), 5 ML UNKNOWN UD PRN for FLUSH Hydrocortisone Sod Succinate (Solu-Cortef), 2 ML IV DAILY PRN for HYPERSENSITIVITY REACTION Oxycodone/Acetaminophen 5MG/325MG (Percocet 5MG/325MG), 1 TABLET PO Q6H PRN for Moderate Pain Sodium Chloride (Gu Irrigant) (Sodium Chloride 0.9%), 10 ML IV UD PRN for FLUSH Allergies Coded Allergies: Albuterol (Verified Adverse Reaction, Mild, CHEST PAIN, LEVALBUTEROL OK, ) PT STATES "IF TAKE TOO MUCH DEVELOPS CHEST PAIN". TOLERATE LEVALBUTEROL 04/2015 Physical Exam Vital Signs Date Time Temp Pulse Resp B/P (MAP) Pulse Ox O2 Delivery O2 Flow Rate FiO2 04/29/17 14:28 93 19 124/85 94 Room Air 4.0 04/29/17 13:55 37.0 88 22 111/67 91 Nasal Cannula 4.0 04/29/17 13:21 74 04/29/17 13:01 86 22 118/77 91 Nasal Cannula 4.0 04/29/17 12:00 83 19 104/70 94 Nasal Cannula 2.0 04/29/17 11:37 86 19 110/63 94 Nasal Cannula 4.0 04/29/17 11:10 92 18 106/65 93 Room Air 04/29/17 09:46 91 04/29/17 09:45 91 Nasal Cannula 4.0 04/29/17 09:45 91 Nasal Cannula 4.0 04/29/17 09:43 37.0 88 18 117/69 92 Nasal Cannula 4.0 Physical Exam General: Non-ill appearing middle aged female in no acute distress. HEENT: Normal cephalic atraumatic. Pupils are equal round and reactive to light. Extraocular movements are intact. Oropharynx is pink with moist mucous membranes. No swelling of the mouth lips or tongue. Neck: Supple with a midline trachea. No meningeal signs or stiffness, no JVD or bruits. No Stridor. Chest: There is TTP in the right chest with breathing and movement. Clear to auscultation bilaterally. No wheezes or rhonchi. No increased work of breathing. Heart: regular rate and rhythm. Abdomen: Soft nontender, nondistended without rebound guarding or rigidity. Extremities: No cyanosis clubbing or edema. No calf tenderness or assymetry Spine/Back. Non tender to palpation. No CVA tenderness Skin: Good turgor without rashes. Neurologic exam: Cranial nerves two through 12 are intact. Motor and sensation are intact and symmetrical throughout. Medical Decision & Procedures ER Provider Diagnostic Interpretation: Radiology results as stated below per my review and radiologist interpretation: CHEST CTA for PULMONARY ARTERIES CT DOSE: 471.60 mGy.cm HISTORY: Right-sided chest pain. Worsening short of breath. TECHNIQUE: Multiaxial CT images of the chest were performed following the intravenous administration of contrast to evaluate the pulmonary arteries. Maximal intensity projection images were also obtained. A dose lowering technique was utilized adhering to the principles of ALARA. COMPARISON STUDY: Chest CTA 10/01/2016. FINDINGS: Normal caliber thoracic aorta with no evidence for dissection. The heart is normal in size. No pleural or pericardial effusions. Small fat-containing left sided Bochdalek hernia. The main pulmonary artery is top normal in diameter. No filling defects within the pulmonary arteries to suggest pulmonary embolus. The right Port-A-Cath terminates in the SVC. Mild mediastinal lymphadenopathy, unchanged. The visualized liver, spleen, and adrenal glands are unremarkable. No fractures within the visualized osseous structures. Poststernotomy changes. No pneumothorax. The diffuse advanced bronchiectasis is again noted. This is most pronounced within the right middle lobe and lingula. Multiple scattered nodular densities have progressed. Dominant nodule within the left upper lobe measures 11 mm best seen on image 215 and dominant peripheral nodular density within the right lower lobe on image 171 measures 14 mm. IMPRESSION: 1. No evidence for pulmonary embolus. 2. Progression of the scattered nodular densities seen throughout the lungs. This likely represents an infectious process. However, 3-[address] follow-up is recommended to ensure stability/resolution. 3. Advanced bronchiectasis, unchanged. 4. No significant change in the mediastinal lymphadenopathy. Electronically signed by: Troy Collier M.D. 04/29/2017 1:15 PM Dictated Date/Time: 04/29/2017 1:03 PM CHEST ONE VIEW PORTABLE CLINICAL HISTORY: Atypical chest pain COMPARISON STUDY: 03/16/2017 FINDINGS: There are postsurgical changes of a midline sternotomy. The cardiac and mediastinal contours remain stable. There is a right-sided A-Port catheter. There is extensive bilateral reticulonodular shadowing with suspected underlying bronchiectasis. There is no acute parenchymal consolidation. There is no overt failure. There are no pleural effusions.[ IMPRESSION: Persistent bronchiectasis with diffuse reticulonodular opacities. No change from the prior study. Electronically signed by: Joshua Sanders M.D. 04/29/2017 10:13 AM Dictated Date/Time: 04/29/2017 10:11 AM Laboratory Results 04/29/17 10:30 Red Blood Count 3.81, Mean Corpuscular Volume 83.5, Mean Corpuscular Hemoglobin 25.7, Mean Corpuscular Hemoglobin Concent 30.8, Mean Platelet Volume 9.2, Neutrophils (%) (Auto) 80.3, Lymphocytes (%) (Auto) 10.1, Monocytes (%) (Auto) 6.4, Eosinophils (%) (Auto) 2.6, Basophils (%) (Auto) 0.3, Neutrophils # (Auto) 8.85, Lymphocytes # (Auto) 1.11, Monocytes # (Auto) 0.71, Eosinophils # (Auto) 0.29, Basophils # (Auto) 0.03 04/29/17 10:30 Test 04/29/17 10:30 04/29/17 10:45 White Blood Count 11.02 K/uL (4.8-10.8) Red Blood Count 3.81 M/uL (4.2-5.4) Hemoglobin 9.8 g/dL (12.0-16.0) Hematocrit 31.8 % (37-47) Mean Corpuscular Volume 83.5 fL (80-100) Mean Corpuscular Hemoglobin 25.7 pg (25-34) Mean Corpuscular Hemoglobin Concent 30.8 g/dl (32-36) Platelet Count 263 K/uL (130-400) Mean Platelet Volume 9.2 fL (7.4-10.4) Neutrophils (%) (Auto) 80.3 % Lymphocytes (%) (Auto) 10.1 % Monocytes (%) (Auto) 6.4 % Eosinophils (%) (Auto) 2.6 % Basophils (%) (Auto) 0.3 % Neutrophils # (Auto) 8.85 K/uL (1.4-6.5) Lymphocytes # (Auto) 1.11 K/uL (1.2-3.4) Monocytes # (Auto) 0.71 K/uL (0.11-0.59) Eosinophils # (Auto) 0.29 K/uL (0-0.5) Basophils # (Auto) 0.03 K/uL (0-0.2) RDW Standard Deviation 47.1 fL (36.4-46.3) RDW Coefficient of Variation 15.4 % (11.5-14.5) Immature Granulocyte % (Auto) 0.3 % Immature Granulocyte # (Auto) 0.03 K/uL (0.00-0.02) Prothrombin Time 10.6 SECONDS (9.0-12.0) Prothromb Time International Ratio 1.0 (0.9-1.1) Activated Partial Thromboplast Time 37.9 SECONDS (21.0-31.0) Partial Thromboplastin Ratio 1.5 D-Dimer 2150 ug/L FEU (0-500) Anion Gap 7.0 mmol/L (3-11) Est Creatinine Clear Calc Drug Dose 93.8 ml/min Estimated GFR () 116.4 Estimated GFR (Non- 100.5 BUN/Creatinine Ratio 21.4 (10-20) Calcium Level 9.4 mg/dl (8.5-10.1) Total Bilirubin 0.4 mg/dl (0.2-1) Direct Bilirubin < 0.1 mg/dl (0-0.2) Aspartate Amino Transf (AST/SGOT) 18 U/L (15-37) Alanine Aminotransferase (ALT/SGPT) 18 U/L (12-78) Alkaline Phosphatase 84 U/L (45-117) Total Creatine Kinase 25 U/L (26-192) Creatine Kinase MB < 0.5 ng/ml (0.5-3.6) Creatine Kinase MB Ratio (0-3.0) Troponin I < 0.015 ng/ml (0-0.045) Total Protein 8.0 gm/dl (6.4-8.2) Albumin 2.8 gm/dl (3.4-5.0) Lipase 192 U/L (73-393) Bedside Lactic Acid Venous 1.23 mmol/L (0.90-1.70) Laboratory studies as stated above per my review. Medications Administered Medications (Trade) Dose Ordered Sig/Man Route Start Time Stop Time Status Last Admin Dose Admin Methylprednisolone Sodium Succinate (Solu-Medrol IV) 125 mg NOW STAT IV 04/29/17 13:52 04/29/17 13:53 DC 04/29/17 14:16 125 MG Piperacillin Sod/ Tazobactam Sod (Zosyn Iv) 4.5 gm NOW STAT IV 04/29/17 13:52 04/29/17 13:53 DC 04/29/17 14:15 4.5 GM ECG Indication: chest pain, back/shoulder pain Rate (beats per minute): 85 Rhythm: normal sinus Findings: nonspecific-ST abn, no acute ischemic change, other (Short IN interval, poor baseline) Comparison ECG Date: 03/17/2017 Change: no significant change Change: Patient's electrocardiogram interpreted by me. ED Course 0946: Past medical records reviewed. The patient was evaluated in room B4, and a complete history and physical examination were performed. 1101: I checked on the patient at this time. She is resting comfortably. She declined an inhaler. 1210: I updated the patient on the results of her case at this time. 1344: I checked on the patient at this time. She is agreeable to admission. 1352: Ordered Zosyn 4.5 gm IV, Solu-Medrol 125 mg IV. 1400: I discussed the case with Maine Alvarez PA-C. She will evaluate the patient for further treatment. Medical Decision Differential diagnosis includes; COPD, CHF, pulmonary embolism, pneumonia, electrolyte or metabolic abnormality. This patient comes in as described above .she has a extensive pulmonary history. She is on oxygen and steroids and has significant bronchiectasis. She comes in complaining of right sided chest pain is worse with breathing is pleuritic. She's had a cough lately as well. IV access established and blood work was obtained. She has no significant electrolyte or metabolic abnormalities. Her white count is mildly elevated though she is on steroids. EKG and chest x-ray were obtained. She is nothing to suggest an acute cardiac event. Her d-dimer was elevated light of this I did a chest CT. there is no evidence of PE however there is nodular disease which may be related to infection. She was given IV steroids here with Solu-Medrol 125 mg IV and was also given IV Zosyn. I do think she needs to be admitted/observed for further treatment and evaluation. [facility] Blood Pressure Screening Patient's blood pressure: Normal blood pressure Consults Time Called: 1350 Consulting Physician: Maine Alvarez PA-C Returned Call: 1400 I discussed the case with Maine Alvarez PA-C. She will evaluate the patient for further treatment. Impression Primary Impression: Right-sided chest pain Additional Impressions: Pneumonia Bronchiectasis Scribe Attestation The scribe's documentation has been prepared under my direction and personally reviewed by me in its entirety. I confirm that the note above accurately reflects all work, treatment, procedures, and medical decision making performed by me. Departure Information Dispostion Being Evaluated By Hospitalist Referrals Ivonne Subramanian (PCP) Patient Instructions [facility] Problem Qualifiers
--- NOTE | 2017-04-29 10:14 | DIAGNOSTIC IMAGING REPORT ---
CHEST ONE VIEW PORTABLE CLINICAL HISTORY: Atypical chest pain COMPARISON STUDY: 03/16/2017 FINDINGS: There are postsurgical changes of a midline sternotomy. The cardiac and mediastinal contours remain stable. There is a right-sided A-Port catheter. There is extensive bilateral reticulonodular shadowing with suspected underlying bronchiectasis. There is no acute parenchymal consolidation. There is no overt failure. There are no pleural effusions.[ IMPRESSION: Persistent bronchiectasis with diffuse reticulonodular opacities. No change from the prior study. Electronically signed by: Joshua Sanders M.D. 04/29/2017 10:13 AM Dictated Date/Time: 04/29/2017 10:11 AM
[2017-04-29] MEDS ORDERED: FAMO20IN2 IV (10:57)
[2017-04-29] MEDS ORDERED: OXYC-57 PO (10:57)
[2017-04-29] MEDS ORDERED: ACET1TAB84 PO (10:57)
[2017-04-29] MEDS ORDERED: HEPA100I10 (10:57)
[2017-04-29] MEDS ORDERED: ASPI81TA28 PO (10:57)
[2017-04-29] MEDS ORDERED: GUAI1TAB69 PO (10:57)
[2017-04-29] MEDS ORDERED: DIPH1TAB87 IV (10:57)
[2017-04-29] MEDS ORDERED: SODI0.9S IV (10:57)
[2017-04-29] MEDS ORDERED: HYDI100CL IV (10:57)
[2017-04-29] MEDS ORDERED: ASCO250T5 PO (10:57)
[2017-04-29] MEDS ORDERED: HYDR5TAB57 PO (10:57)
[2017-04-29] MEDS ORDERED: EPIN1INJ IM (10:57)
[2017-04-29] MEDS ORDERED: PRED10TA PO (10:57)
[2017-04-29 11:03] LABS: BASO % 0.3 %; BASO ABS # 0.03 K/uL (0-0.2); EOS % 2.6 %; EOS ABS # 0.29 K/uL (0-0.5); HEMATOCRIT 31.8 % (37-47); HEMOGLOBIN 9.8 g/dL (12.0-16.0); IG# 0.03 K/uL (0.00-0.02); LYMPH % 10.1 %; LYMPH ABS # 1.11 K/uL (1.2-3.4); MEAN CELL VOLUME 83.5 fL (80-100); MEAN CORPUSCULAR HEMOGLOBIN 25.7 pg (25-34); MEAN CORPUSCULAR HGB CONC 30.8 g/dl (32-36); MEAN PLATELET VOLUME 9.2 fL (7.4-10.4); MONO % 6.4 %; MONO ABS # 0.71 K/uL (0.11-0.59); NEUT % 80.3 %; NEUT ABS # 8.85 K/uL (1.4-6.5); PLATELET COUNT 263 K/uL (130-400); RED CELL DISTRIBUTION WIDTH CV 15.4 % (11.5-14.5); RED CELL DISTRIBUTION WIDTH SD 47.1 fL (36.4-46.3); WHITE BLOOD COUNT 11.02 K/uL (4.8-10.8)
[2017-04-29 11:24] LABS: CALCIUM 9.4 mg/dl (8.5-10.1); CREATININE 0.64 mg/dl (0.60-1.20); POTASSIUM 4.6 mmol/L (3.5-5.1)
[2017-04-29 11:31] LABS: ALBUMIN 2.8 gm/dl (3.4-5.0); ALKALINE PHOSPHATASE 84 U/L (45-117); ALT/SGPT 18 U/L (12-78); AST/SGOT 18 U/L (15-37); CKMB < 0.5 ng/ml (0.5-3.6); LIPASE 192 U/L (73-393)
[2017-04-29 11:46] LABS: PTT PATIENT 37.9 SECONDS (21.0-31.0)
[2017-04-29] MEDS ORDERED: OPTIRAY 320 IV PRN (12:30)
--- NOTE | 2017-04-29 13:17 | DIAGNOSTIC IMAGING REPORT ---
CHEST CTA for PULMONARY ARTERIES CT DOSE: 471.60 mGy.cm HISTORY: Right-sided chest pain. Worsening short of breath. TECHNIQUE: Multiaxial CT images of the chest were performed following the intravenous administration of contrast to evaluate the pulmonary arteries. Maximal intensity projection images were also obtained. A dose lowering technique was utilized adhering to the principles of ALARA. COMPARISON STUDY: Chest CTA 10/01/2016. FINDINGS: Normal caliber thoracic aorta with no evidence for dissection. The heart is normal in size. No pleural or pericardial effusions. Small fat-containing left sided Bochdalek hernia. The main pulmonary artery is top normal in diameter. No filling defects within the pulmonary arteries to suggest pulmonary embolus. The right Port-A-Cath terminates in the SVC. Mild mediastinal lymphadenopathy, unchanged. The visualized liver, spleen, and adrenal glands are unremarkable. No fractures within the visualized osseous structures. Poststernotomy changes. No pneumothorax. The diffuse advanced bronchiectasis is again noted. This is most pronounced within the right middle lobe and lingula. Multiple scattered nodular densities have progressed. Dominant nodule within the left upper lobe measures 11 mm best seen on image 215 and dominant peripheral nodular density within the right lower lobe on image 171 measures 14 mm. IMPRESSION: 1. No evidence for pulmonary embolus. 2. Progression of the scattered nodular densities seen throughout the lungs. This likely represents an infectious process. However, 3-[address] follow-up is recommended to ensure stability/resolution. 3. Advanced bronchiectasis, unchanged. 4. No significant change in the mediastinal lymphadenopathy. Electronically signed by: Troy Collier M.D. 04/29/2017 1:15 PM Dictated Date/Time: 04/29/2017 1:03 PM
[2017-04-29] MEDS ORDERED: METHYLPREDNISOLONE 125 MG VIAL IV STA (13:52)
[2017-04-29] MEDS ORDERED: PIPERACILLIN/TAZOBACTAM 4.5 GM/100ML D5W IV STA (13:52)
[2017-04-29] MEDS ORDERED: IBUP-1459 PO (15:29)
--- NOTE | 2017-04-29 15:39 | History and Physical ---
History & Physical Date & Time of Service: Apr 29, 2017 at 15:34 Chief Complaint: Severe Pain In R Lung Area Primary Care Physician: Ivonne Subramanian History of Present Illness Source: patient, clinic records, hospital records This is a 56yo F with a PMH of bronchiectasis, COPD (on home steroids, O2), hypogammaglobulinemia (receives monthly injections via port, last 04/06/17), steroid-induced DM and avascular necrosis of R hip, persistent sinus tachycardia and depression who presents with pain in her R side starting early this morning. Patient is frequently hospitalized for exacerbations of bronchiectasis/COPD with last admission to [facility] 03/16-03/22. During that time, sputum culture grew stenotrophomonas and patient was treated with tigecycline. Also given IV steroids. Follows with Dr. Villalta in clinic and recently completed Bactrim course as well as a steroid taper. Last bronchoscopy was in Feb 2017. Presents today with sudden onset sharp pain to R lateral ribs/side. Pain is worse with movement and coughing. Was an 8/10 prior to arrival and has decreased to a 3/10 without pain medication. Has been feeling "out of sorts" for the last few months, endorsing intermittent nausea and fatigue. Recently seen by PCP for symptoms of depression and started on Zoloft today. Is at her baseline of 4L NC home O2 and denies any fever, chills, dyspnea on exertion, SOB or wheezing. Has increased hip pain from avascular necrosis of R hip 2/2 chronic steroid use and has surgery scheduled for June, per patient. Was recently taken off of oxycodone due to side effects to mood and is now taking ibuprofen and tylenol. Denies any lightheadedness, palpitations, CP, abd pain, vomiting or LE swelling. No changes to bowel/bladder habits. Past Medical/Surgical History Medical Problems: (1) Anxiety Status: Chronic (2) Asthma Status: Chronic (3) Bronchiectasis Status: Chronic (4) Chronic respiratory failure Status: Chronic (5) COPD exacerbation Status: Resolved (6) Depression Status: Chronic (7) Diabetes mellitus, type II Status: Chronic (8) Emphysema Status: Resolved (9) GERD (gastroesophageal reflux disease) Status: Chronic (10) Hyperlipidemia Status: Chronic (11) Hypogammaglobulinemia Status: Chronic (12) Mild pulmonary hypertension Status: Chronic (13) BILL (obstructive sleep apnea) Status: Chronic (14) Oxygen dependent Permanent Comment: 4L Status: Chronic (15) Pneumonia Status: Resolved (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 Status: Chronic (17) Tachycardia Status: Chronic Surgical Problems: (1) H/O atrial septal defect repair Status: Resolved (2) H/O: hysterectomy Status: Resolved (3) History of hysterectomy Status: Resolved (4) History of myringotomy Status: Resolved (5) Hx of appendectomy Status: Resolved (6) Hx of cholecystectomy Status: Resolved (7) Hx of tympanostomy tubes Status: Resolved (8) S/P bronchoscopy Status: Resolved (9) S/P section Status: Chronic (10) S/P sinus surgery Status: Resolved (11) S/P tonsillectomy and adenoidectomy Status: Resolved Family History Asthma SISTER Cancer SISTER FATHER MOTHER Diabetes mellitus Gallbladder disease Heart disease Hypertension FATHER Kidney disease Kidney stones Lung disease Social History Smoking Status: Former Smoker Drug Use: none Marital Status: single Housing status: lives alone Occupational Status: other Immunizations History of Influenza Vaccine: Yes Influenza Vaccine Date: Mar 14, 2015 History of Tetanus Vaccine?: Yes Tetanus Immunization Date: Jun 16, 2010 History of Pneumococcal: Yes Pneumococcal Date: Sep 22, 2010 History of Hepatitis B Vaccine: Unknown Multi-Drug Resistant Organisms History of MDRO: No Allergies Coded Allergies: Albuterol (Verified Adverse Reaction, Mild, CHEST PAIN, LEVALBUTEROL OK, ) PT STATES "IF TAKE TOO MUCH DEVELOPS CHEST PAIN". TOLERATE LEVALBUTEROL 04/2015 Home Medications Scheduled Alendronate Sodium (Alendronate Sodium), 70 MG PO Ascorbic Acid (Ascorbic Acid), 250 MG PO DAILY Aspirin (Aspirin Ec), 81 MG PO DAILY Calcium Carbonate-Vitamin D W/ (Caltrate 600 Plus), 1 TAB PO BID Cyanocobalamin (Vitamin B12), 1,000 MCG PO DAILY Ferrous Sulfate (Ferrous Sulfate), 325 MG PO DAILY Fluticasone Propionate (Nasal) (Flonase Allergy Relief), 2 SPRY ESPERANZA QAM Folic Acid (Folic Acid), 1 MG PO QAM Home O2 Therapy (Oxygen), 2-4 LITERS NA DAILY Hydrocortisone (Cortef), 10 MG PO QAM Ibuprofen (Motrin), 400 MG PO TID Insulin Human NPH (Novolin N), 10 UNITS SQ QAM Magnesium Oxide (Mg Supplement (Magnesium), 400 MG PO DAILY Metoprolol Tartrate (Lopressor) (Lopressor), 50 MG PO BID Multiple Vitamin (Multivitamin), 1 TAB PO QAM Pantoprazole (Protonix), 40 MG PO QAM Probiotic Product (Probiotic), 1 CAP PO DAILY Sertraline (Zoloft), 0.5 TAB PO DAILY Scheduled PRN Acetaminophen (Tylenol Arthritis Ext Rel), 1,000 MG PO TID PRN for Pain Albuterol Sulf (Albuterol Sulfate), 1 DOSE INH Q4H PRN for Shortness of Breath Diphenhydramine Hcl (Benadryl Allergy), 50 MG IV DAILY PRN for HYPERSENSITIVITY REACTION Epinephrine Hcl (Epinephrine Hcl), 0.3 ML IM UD PRN for HYPERSENSITIVITY REACTION Guaifenesin (Mucinex Maximum Strength), 1,200 MG PO BID PRN for CONGESTION Heparin Sodium (Porcine) Lock (Heparin Lock Flush), 5 ML UNKNOWN UD PRN for FLUSH Hydrocortisone Sod Succinate (Solu-Cortef), 2 ML IV DAILY PRN for HYPERSENSITIVITY REACTION Sodium Chloride (Gu Irrigant) (Sodium Chloride 0.9%), 10 ML IV UD PRN for FLUSH Review of Systems Ten systems reviewed and negative except as noted in the HPI. Physical Exam Vital Signs Date Time Temp Pulse Resp B/P (MAP) Pulse Ox O2 Delivery O2 Flow Rate FiO2 04/29/17 14:28 93 19 124/85 94 Room Air 4.0 04/29/17 13:55 37.0 88 22 111/67 91 Nasal Cannula 4.0 04/29/17 13:21 74 04/29/17 13:01 86 22 118/77 91 Nasal Cannula 4.0 04/29/17 12:00 83 19 104/70 94 Nasal Cannula 2.0 04/29/17 11:37 86 19 110/63 94 Nasal Cannula 4.0 04/29/17 11:10 92 18 106/65 93 Room Air 04/29/17 09:46 91 04/29/17 09:45 91 Nasal Cannula 4.0 04/29/17 09:45 91 Nasal Cannula 4.0 04/29/17 09:43 37.0 88 18 117/69 92 Nasal Cannula 4.0 General Appearance: no apparent distress, + pertinent finding (chronically ill appearing. Pleasant, cooperative. ) Head: normocephalic, atraumatic Eyes: normal inspection, PERRL, sclerae normal ENT: normal ENT inspection, hearing grossly normal, pharynx normal Neck: supple, no adenopathy, trachea midline Respiratory/Chest: chest non-tender, no respiratory distress, no accessory muscle use, + crackles (bibasilar), + wheezing (diffuse ) Cardiovascular: regular rate, rhythm, no murmur, normal peripheral pulses Abdomen/GI: non tender, soft, no organomegaly Back: normal inspection Extremities/Musculoskelatal: normal inspection, no calf tenderness, no pedal edema Neurologic/Psych: no motor/sensory deficits, alert, normal mood/affect, oriented x 3 Skin: normal color, warm/dry Diagnostics Laboratory Results Results Past 24 Hours Test 04/29/17 10:30 04/29/17 10:45 Range/Units White Blood Count 11.02 4.8-10.8 K/uL Red Blood Count 3.81 4.2-5.4 M/uL Hemoglobin 9.8 12.0-16.0 g/dL Hematocrit 31.8 37-47 % Mean Corpuscular Volume 83.5 80-100 fL Mean Corpuscular Hemoglobin 25.7 25-34 pg Mean Corpuscular Hemoglobin Concent 30.8 32-36 g/dl Platelet Count 263 130-400 K/uL Mean Platelet Volume 9.2 7.4-10.4 fL Neutrophils (%) (Auto) 80.3 % Lymphocytes (%) (Auto) 10.1 % Monocytes (%) (Auto) 6.4 % Eosinophils (%) (Auto) 2.6 % Basophils (%) (Auto) 0.3 % Neutrophils # (Auto) 8.85 1.4-6.5 K/uL Lymphocytes # (Auto) 1.11 1.2-3.4 K/uL Monocytes # (Auto) 0.71 0.11-0.59 K/uL Eosinophils # (Auto) 0.29 0-0.5 K/uL Basophils # (Auto) 0.03 0-0.2 K/uL RDW Standard Deviation 47.1 36.4-46.3 fL RDW Coefficient of Variation 15.4 11.5-14.5 % Immature Granulocyte % (Auto) 0.3 % Immature Granulocyte # (Auto) 0.03 0.00-0.02 K/uL Prothrombin Time 10.6 9.0-12.0 SECONDS Prothromb Time International Ratio 1.0 0.9-1.1 Activated Partial Thromboplast Time 37.9 21.0-31.0 SECONDS Partial Thromboplastin Ratio 1.5 D-Dimer 2150 0-500 ug/L FEU Sodium Level 134 136-145 mmol/L Potassium Level 4.6 3.5-5.1 mmol/L Chloride Level 95 98-107 mmol/L Carbon Dioxide Level 32 21-32 mmol/L Anion Gap 7.0 3-11 mmol/L Blood Urea Nitrogen 14 7-18 mg/dl Creatinine 0.64 0.60-1.20 mg/dl Est Creatinine Clear Calc Drug Dose 93.8 ml/min Estimated GFR () 116.4 Estimated GFR (Non- 100.5 BUN/Creatinine Ratio 21.4 10-20 Random Glucose 157 70-99 mg/dl Calcium Level 9.4 8.5-10.1 mg/dl Total Bilirubin 0.4 0.2-1 mg/dl Direct Bilirubin < 0.1 0-0.2 mg/dl Aspartate Amino Transf (AST/SGOT) 18 15-37 U/L Alanine Aminotransferase (ALT/SGPT) 18 12-78 U/L Alkaline Phosphatase 84 45-117 U/L Total Creatine Kinase 25 26-192 U/L Creatine Kinase MB < 0.5 0.5-3.6 ng/ml Creatine Kinase MB Ratio 0-3.0 Troponin I < 0.015 0-0.045 ng/ml Total Protein 8.0 6.4-8.2 gm/dl Albumin 2.8 3.4-5.0 gm/dl Lipase 192 73-393 U/L Bedside Lactic Acid Venous 1.23 0.90-1.70 mmol/L Microbiology Results 04/29/17 Blood Culture, Received Pending 04/29/17 Blood Culture, Received Pending Diagnostic Radiology Chest/thorax CTA: IMPRESSION: 1. No evidence for pulmonary embolus. 2. Progression of the scattered nodular densities seen throughout the lungs. This likely represents an infectious process. However, 3-[address] follow-up is recommended to ensure stability/resolution. 3. Advanced bronchiectasis, unchanged. 4. No significant change in the mediastinal lymphadenopathy. CXR: IMPRESSION: Persistent bronchiectasis with diffuse reticulonodular opacities. No change from the prior study. EKG Sinus rhythm with short VT No change from prior EKG Impression Assessment and Plan This is a 56yo F with a PMH of bronchiectasis, COPD (on home steroids, O2), hypogammaglobulinemia (receives monthly injections via port, last 04/06/17), steroid-induced DM and avascular necrosis of R hip, persistent sinus tachycardia and depression who presents with pain in her R side starting early this morning. Progression of reticular nodules/PNA: -Complicated pulmonary history with advanced bronchiectasis, COPD -Requires steroids and 2-4L NC home O2 -Chest/thorax CTA with progression of scattered nodular densities seen throughout lungs -No evidence of PE -Leukocytosis of 11.02. Electrolytes, lactate wnl -Sputum cx -Zosyn and azithromycin for empiric coverage -Duonebs PRN -Cont home inhalers -Pulm consulted -Supplemental O2 R lateral rib/flank pain: -Pain has subsided to a 2/10 -Correlates with progression of reticular nodules on CTA -Cont home regimen of tylenol an ibuprofen for now Hypogammaglobulinemia: -Received monthly injections -Last injection 04/06/17 -Flush port Steroid-induced DM: -Last hgb a1c of 6.0 in Jan 2017 -Ordered repeat -Steroid recently reduced to hydro cortisone 10mg daily -Continue Novolin N home dose of 10U qAM -Additional sliding scale insulin -Monitor and increase Novolin dose if necessary -BG checks AC HS Avascular necrosis of R hip: -Surgery scheduled for June -Marked gait impairment. Ambulates with walker -Continue new home pain regimen Depression: -Cont home zoloft dose initiated today DVT Ppx: SQ Lovenox Code status: FULL PCP: SHMUEL Subramanian Dispo: Observation telemetry. Plan to return home once medically stable. Patient seen in collaboration with Dr. Leija. Please see addendum. Agree with above H and P.Briefly 56F with hx of Chronic respiratory faiure on home oxygen 2 -4lts via NC,multiple admissions for bronchiectasis flare. Last admission sputum cx grew STENOTROPHOMONAS MALTOPHILIA and was initially treated with Tygacil and later transitioned to po Bactrim and completed the course comes today with severe right lower rib pain. Also since one week not feeling victoria and requiring 4lts of oxygen. Saw pulmonary yesterday. Denies chest pain. Afebrile. Has cough with sputum.BP stable p/e Ge not in distress Cvs S1 and s2 heard no murmurs Rs Cta b/l no wheezing or crackles Abd benign [employer] Hand non focal Ext no edema no erythema a/p Pneumonia/Progression of nodules on ct scan iv abx nebs prn cultures pulmonary consult in am Right lateral lower rib pain improved now will monitor Level of Care Telemetry Resuscitation Status FULL RESUSCITATION VTE Prophylaxis VTE Risk Assessment Done? Y/N: Yes Risk Level: Moderate Given or contraindicated: Enoxaparin (Lovenox)SQ
[2017-04-29] MEDS ORDERED: SERT25TA PO (15:48)
[2017-04-29] MEDS ORDERED: ALBUT/IPRATROP 3MG/0.5MG NEB 3 ML VIAL INH PRN (16:15)
[2017-04-29] MEDS ORDERED: EpINEphrine INJ 1MG/ML AMP 1 MG/ML AMP IM PRN (16:15)
[2017-04-29] MEDS ORDERED: HYDROCORTISONE SOD SUCCINATE 100 MG/2 ML VIAL IV PRN (16:15)
[2017-04-29] MEDS ORDERED: ALBUTEROL 0.083% NEBU SOLN 3 ML VIAL INH PRN (16:15)
[2017-04-29] MEDS ORDERED: SODIUM CHLORIDE 0.9% IRRIG 1,000 ML PLCT IR PRN (16:15)
[2017-04-29] MEDS ORDERED: IV FLUIDS COMPLETED PRN (16:15)
[2017-04-29] MEDS ORDERED: SERT50TA PO (16:24)
[2017-04-29] MEDS ORDERED: GLUCOSE 40% GEL 15 GM TUBE PO PRN (16:30)
[2017-04-29] MEDS ORDERED: SODIUM CHLORIDE 0.9% 1000ML 1,000 ML IV SCH (16:30)
[2017-04-29] MEDS ORDERED: GLUCAGON FOR INJ 1 MG VIAL SQ PRN (16:30)
[2017-04-29] MEDS ORDERED: DEXTROSE 50% 50 ML SYR IV PRN (16:30)
[2017-04-29] MEDS ORDERED: PIPERACILL/TAZOBAC CONSULT ACTIVE PRN (16:30)
[2017-04-29] MEDS ORDERED: GLUCOSE 10 TABS/TUBE PO PRN (16:30)
[2017-04-29] MEDS: INSULIN ASPART 100 UNITS/ML 3 ML PEN SC SCH ×2 (16:45→21:33)
[2017-04-29] MEDS ORDERED: ACETAMINOPHEN 500 MG TAB PO PRN (17:00)
[2017-04-29 17:04] VITALS: BP_SYST 127; PULSE 90; TEMP 36.6; O2SAT 94; Ht 160 cm; Wt 71.9 kg
[2017-04-29] MEDS: AZITHROMYCIN IV 500 MG in DEXTROSE 5% 250ML 250 ML IV SCH (18:14)
[2017-04-29] MEDS: ENOXAPARIN 40 MG/0.4 ML SYR SC SCH (18:15)
--- NOTE | 2017-04-29 19:38 | PULMONARY CONSULTATION ---
DATE OF CONSULTATION: 04/29/2017 PULMONARY MEDICINE CONSULTATION REASON FOR CONSULTATION: Right-sided pleuritic pain in a patient with a history of bronchiectasis, on home steroid therapy and O2 supplementation. HISTORY OF PRESENT ILLNESS: A 56-year-old white female well known to me from our pulmonary medicine practice multiple prior admissions in the past was admitted on 04/29/2017 at 15:34 by the hospitalist service for pulmonary evaluation. She has had previous admissions for acute on chronic hypoxic exacerbations of bronchiectasis and has been on aerosolized bronchodilator with use of a vibration vest. Her hospitalization was included January 02 to January 2014, March 2014, June 2014, July 2014, August 2014, September 2014, October 2014, February of 2016, June of 2016; July, September, November, January and March 2017. She has undergone multiple bronchoscopies usually growing out Stenotrophomonas maltophilia as well as haemophilus influenza Coryne, pseudodiphtheriticum, staph aureus, MAURICIO, Stenotrophomonas xanthomonas, acinetobacter baumannii. The patient is O2 dependent at 2-3 liters during the day and at night and uses a trilogy NIV at bedtime. She has had a history of pulmonary nodules pseudomembranous colitis, eustachian tube dysfunction, steroid-induced diabetes, hypogammaglobulinemia on IVIG. Despite all attempts at identifying the organism and treating her aggressively, she developed this morning right-sided pleuritic pain associated with dyspnea and cough without hemoptysis. The decision was made to admit her for further evaluation and therapy. For details of past medical history, medications, family, social history, I refer you to current and past consultation. PHYSICAL EXAMINATION: GENERAL: Well-developed, well-nourished white female, appearing quite stable at rest. VITAL SIGNS: Temperature 37, pulse 76 and regular, respiratory rate 20, blood pressure 127/79, O2 sat 94% on 4 liters. SKIN: Without lesion. HEENT: Atraumatic, normocephalic. PERRLA, EOMI. Conjunctivae pale. Sclerae nonicteric. Fundi poorly visualized. NECK: Veins not distended at 45 degrees. No obvious adenopathy in the supra or infraclavicular areas. LUNGS: Decreased breath sounds, scattered rhonchi, right base. CARDIAC: Regular rate and rhythm. No murmurs or gallops. PMI nondisplaced. ABDOMEN: Soft, scaphoid. No evidence of hepatosplenomegaly. EXTREMITIES: No pedal edema, clubbing or cyanosis. NEUROLOGIC: Intact. No lateralizing signs. LABORATORY AND IMAGING DATA: CTA done earlier today was reviewed, showed no evidence of pulmonary thromboembolic disease in comparison to previous CT scan of September 2016, there has been progression of the scattered nodular density seen throughout the lungs with advanced bronchiectasis noted, but no significant change in the mediastinal adenopathy. White count 11,000, H&H 9.8 and 31.8. ABGs on January 2017 - pH 7.37, pCO2 of 51, pO2 of 95, normal PRP. PT/INR 1.0, PTT/INR 1.5. D-dimer 2150. Last IgG on IVIG supplementation 1400, titers for influenza A and B PCR negative. OVERALL ASSESSMENT: A 56-year-old with severe chronic bronchiectasis, cor pulmonale, obstructive sleep apnea, currently receiving continuous oxygen at home with noninvasive positive pressure ventilation nocturnally and with vigorous pulmonary toilet despite all efforts, appears to have progressive right lower lobe pneumonitis with mucoid impaction and severe involvement of both right and left parenchymal disease with more advanced disease involving the right lower lobe. Current review of medications, the patient has been placed on includes maintenance Solu-Cortef tablet/hydrocortisone, IV Zosyn, aerosolized bronchodilator, Lovenox and IV azithromycin. My suspicion is that the patient will require improved coverage for both Acinetobacter that should include ceftazidime and perhaps even an addition of a sulfa antibiotic and coverage for Stenotrophomonas maltophilia, which should be sensitive to ceftazidime. It is not clear to me whether IV Zosyn will cover these organisms. I question whether inhaled tobramycin Torito might also be helpful in addition to the utilization of aerosolized bronchodilator, vibration vest and an inhaled normal saline either 3% or 7%, to better eventuate sputum production. The patient may also benefit from a bronchoscopic evaluation.
[2017-04-29 19:45] VITALS: BP 124/80; PULSE 99; TEMP 36.5; O2SAT 93
[2017-04-29] MEDS: ONDANSETRON INJ 2 MG/ML 2 ML VIAL IV PRN (20:07)
[2017-04-29] MEDS: IBUPROFEN 200 MG TAB PO PRN (20:10)
[2017-04-29] MEDS: PIPERACILL/TAZOBAC IV 3.375 GM in DEXTROSE 5% 100ML 100 ML IV SCH (20:11)
[2017-04-29] MEDS: CALCIUM 600MG + VIT D 400 IU TAB PO SCH (20:48)
[2017-04-29] MEDS: METOPROLOL TARTRATE 50 MG TAB PO SCH (20:48)
[2017-04-30] VITALS (8 sets, daily range): BP systolic 107–123; BP diastolic 67–75; PULSE 79–100; TEMP 36.5–36.9; O2SAT 90–95
[2017-04-30] MEDS: PIPERACILL/TAZOBAC IV 3.375 GM in DEXTROSE 5% 100ML 100 ML IV SCH ×3 (03:43→20:51)
[2017-04-30 05:49] LABS: HEMATOCRIT 30.6 % (37-47); HEMOGLOBIN 9.6 g/dL (12.0-16.0); MEAN CELL VOLUME 83.2 fL (80-100); MEAN CORPUSCULAR HEMOGLOBIN 26.1 pg (25-34); MEAN CORPUSCULAR HGB CONC 31.4 g/dl (32-36); PLATELET COUNT 286 K/uL (130-400); RED CELL DISTRIBUTION WIDTH CV 14.8 % (11.5-14.5); RED CELL DISTRIBUTION WIDTH SD 45.1 fL (36.4-46.3); WHITE BLOOD COUNT 5.82 K/uL (4.8-10.8)
[2017-04-30 06:11] LABS: CALCIUM 9.1 mg/dl (8.5-10.1); CREATININE 0.62 mg/dl (0.60-1.20); POTASSIUM 4.3 mmol/L (3.5-5.1)
[2017-04-30] MEDS: INSULIN ASPART 100 UNITS/ML 3 ML PEN SC SCH ×4 (07:55→20:50)
[2017-04-30] MEDS: INSULIN HUMAN NPH SQ SCH (07:56)
[2017-04-30] MEDS: FLUTICASONE PROPIONATE NA SPR 16 GM BTL NAE SCH (08:13)
[2017-04-30] MEDS: ASCORBIC ACID 500 MG TAB PO SCH (08:13)
[2017-04-30] MEDS: SERTRALINE HCL 50 MG TAB PO SCH (08:13)
[2017-04-30] MEDS: METOPROLOL TARTRATE 50 MG TAB PO SCH ×2 (08:14→20:52)
[2017-04-30] MEDS: IBUPROFEN 200 MG TAB PO PRN ×2 (08:15→18:05)
[2017-04-30] MEDS: HYDROCORTISONE 10 MG TAB PO SCH (08:15)
[2017-04-30] MEDS: ASPIRIN 81 MG ECTAB PO SCH (08:15)
[2017-04-30] MEDS: LACTOBACILLUS ACIDOPHILUS (FLORANEX) TAB PO SCH (08:15)
[2017-04-30] MEDS: PANTOprazole SOD 40 MG TAB PO SCH (08:15)
[2017-04-30] MEDS: CYANOCOBALAMIN 500 MCG TAB (VIT B-12) PO SCH (08:16)
[2017-04-30] MEDS: CALCIUM 600MG + VIT D 400 IU TAB PO SCH ×2 (08:16→20:51)
[2017-04-30] MEDS: FERROUS SULFATE 325 MG TAB PO SCH (08:16)
[2017-04-30] MEDS: MULTIVITAMIN TAB PO SCH (08:16)
[2017-04-30] MEDS: MAGNESIUM OXIDE 400 MG TAB PO SCH (08:17)
--- NOTE | 2017-04-30 10:22 | PULMONARY PROGRESS NOTE ---
DATE: 04/30/2017 DATE: 04/30/2017 SUBJECTIVE: The patient continues to complain of right pleuritic chest discomfort and a dry nonproductive cough. This is similar to previous presentations. CT of the chest done yesterday shows no evidence of pulmonary thromboembolic disease but definitely progression of scattered nodular densities throughout both lung davalos with advanced changes of bronchiectasis. I refer you to my consultation note from previous organisms growing from bronchial washings and it is difficult to know if we are dealing with Stenotrophomonas maltophilia or xanthomonas versus staph versus the plethora of organisms we have grown in the past. Plan is to continue current therapy and schedule bronchoscopic intervention on Tuesday.
--- NOTE | 2017-04-30 10:40 | Progress Note ---
Internal Med Progress Note Date of Service: Apr 30, 2017. Provider Documentation: SUBJECTIVE: Seen and examined at bedside States right sided chest pain is much improved Reports dry cough chronic SOB, no worsening No other complaints Planned for Bronchoscopy on Tuesday OBJECTIVE: Vital Signs-as noted below Physical Exam: General Appearance:Moderately built and nourished, no apparent distress Head: normocephalic, Atraumatic Eyes: normal inspection, EOMI, PERRL Neck: supple, Trachea midline Respiratory/Chest: Decreased breath sounds, scattered wheezes, crackles Cardiovascular: S1, S2, No murmur Abdomen/GI:Soft, Non tender, Bowel sounds present Extremities/Musculoskelatal:normal inspection, no edema Neurologic/Psych:AAOX3, grossly no focal neurological deficits Skin: normal color, warm Lab data as noted below. ASSESSMENT & PLAN: Patient is a 56 yr female with a PMH of bronchiectasis, COPD (on home steroids, O2), hypogammaglobulinemia (receives monthly injections via port, last 04/06/17) , steroid-induced DM and avascular necrosis of R hip, persistent sinus tachycardia and depression who presents with R sided chest pain associated with cough. Pneumonitis with mucoid Impaction In setting of Advanced bronchiectasis, COPD Chronic steroid and 2-4L NC home O2 dependency CTA: suggestive of progression of scattered nodular densities, No PE Empirically started on Zosyn and azithromycin Blood/Sputum cultures pending Planned for Bronchoscopy on Tuesday Appreciate Pulmonary Input Duonebs PRN Oxygen support Lactate normal Continue Cortef Hypogammaglobulinemia: Receives monthly injections Last injection 04/06/17 Steroid-induced DM: A1C:6.0 On cortef Continue ISS, NPH BG checks AC HS Avascular necrosis of R hip: Surgery scheduled in June Pain control PT/OT Depression: Continue zoloft DVT Px: SQ Lovenox Code status: Full Code Disposition: Observation telemetry. Plan to return home once medically stable. Vital Signs: Date Time Temp Pulse Resp B/P (MAP) Pulse Ox O2 Delivery O2 Flow Rate FiO2 04/30/17 08:15 36.7 100 18 118/75 (89) 90 Nasal Cannula 4.0 04/30/17 04:00 Nasal Cannula 4.0 04/30/17 03:33 36.5 87 16 116/73 (87) 94 Nasal Cannula 4.0 04/30/17 00:09 36.7 81 15 115/72 (86) 92 Nasal Cannula 4.0 04/30/17 00:00 Nasal Cannula 4.0 04/29/17 20:00 Nasal Cannula 4.0 04/29/17 19:45 36.5 99 20 124/80 (95) 93 Nasal Cannula 3.0 04/29/17 17:04 36.6 90 21 127/ 94 Nasal Cannula 4.0 04/29/17 15:38 76 20 127/79 94 Nasal Cannula 4.0 04/29/17 14:28 93 19 124/85 94 Room Air 4.0 04/29/17 13:55 37.0 88 22 111/67 91 Nasal Cannula 4.0 04/29/17 13:21 74 04/29/17 13:01 86 22 118/77 91 Nasal Cannula 4.0 04/29/17 12:00 83 19 104/70 94 Nasal Cannula 2.0 04/29/17 11:37 86 19 110/63 94 Nasal Cannula 4.0 04/29/17 11:10 92 18 106/65 93 Room Air Lab Results: Results Past 24 Hours Test 04/29/17 20:50 04/30/17 05:27 04/30/17 06:28 Range/Units Bedside Glucose 287 186 70-90 mg/dl White Blood Count 5.82 4.8-10.8 K/uL Red Blood Count 3.68 4.2-5.4 M/uL Hemoglobin 9.6 12.0-16.0 g/dL Hematocrit 30.6 37-47 % Mean Corpuscular Volume 83.2 80-100 fL Mean Corpuscular Hemoglobin 26.1 25-34 pg Mean Corpuscular Hemoglobin Concent 31.4 32-36 g/dl RDW Standard Deviation 45.1 36.4-46.3 fL RDW Coefficient of Variation 14.8 11.5-14.5 % Platelet Count 286 130-400 K/uL Mean Platelet Volume 9.0 7.4-10.4 fL Sodium Level 136 136-145 mmol/L Potassium Level 4.3 3.5-5.1 mmol/L Chloride Level 97 98-107 mmol/L Carbon Dioxide Level 31 21-32 mmol/L Anion Gap 9.0 3-11 mmol/L Blood Urea Nitrogen 11 7-18 mg/dl Creatinine 0.62 0.60-1.20 mg/dl Est Creatinine Clear Calc Drug Dose 96.8 ml/min Estimated GFR () 117.7 Estimated GFR (Non- 101.5 BUN/Creatinine Ratio 17.2 10-20 Random Glucose 178 70-99 mg/dl Estimated Average Glucose 126 mg/dl Hemoglobin A1c 6.0 4.5-5.6 % Calcium Level 9.1 8.5-10.1 mg/dl Microbiology Results 04/29/17 MRSA DNA Surveillance Screen - Final, Complete Specimen Negative for MRSA by DNA Probe 04/30/17 Gram Stain, Received Pending 04/30/17 Sputum Culture, Received Pending
[2017-04-30] MEDS: AZITHROMYCIN IV 500 MG in DEXTROSE 5% 250ML 250 ML IV SCH (17:07)
[2017-04-30] MEDS: ONDANSETRON INJ 2 MG/ML 2 ML VIAL IV PRN (18:04)
[2017-04-30] MEDS: ENOXAPARIN 40 MG/0.4 ML SYR SC SCH (18:05)
[2017-05-01] VITALS (10 sets, daily range): BP systolic 96–130; BP diastolic 60–75; PULSE 73–99; TEMP 36.6–37.1; O2SAT 88–95
[2017-05-01] MEDS: ONDANSETRON INJ 2 MG/ML 2 ML VIAL IV PRN ×3 (02:50→22:29)
[2017-05-01] MEDS: IBUPROFEN 200 MG TAB PO PRN ×2 (03:07→08:24)
[2017-05-01] MEDS: PIPERACILL/TAZOBAC IV 3.375 GM in DEXTROSE 5% 100ML 100 ML IV SCH ×3 (04:00→20:07)
[2017-05-01 07:59] LABS: HEMATOCRIT 31.5 % (37-47); HEMOGLOBIN 9.3 g/dL (12.0-16.0); MEAN CELL VOLUME 86.5 fL (80-100); MEAN CORPUSCULAR HEMOGLOBIN 25.5 pg (25-34); MEAN CORPUSCULAR HGB CONC 29.5 g/dl (32-36); PLATELET COUNT 234 K/uL (130-400); RED CELL DISTRIBUTION WIDTH CV 15.1 % (11.5-14.5); RED CELL DISTRIBUTION WIDTH SD 47.9 fL (36.4-46.3); WHITE BLOOD COUNT 13.02 K/uL (4.8-10.8)
[2017-05-01] MEDS: MAGNESIUM OXIDE 400 MG TAB PO SCH (08:24)
[2017-05-01] MEDS: ASCORBIC ACID 500 MG TAB PO SCH (08:24)
[2017-05-01] MEDS: PANTOprazole SOD 40 MG TAB PO SCH (08:24)
[2017-05-01] MEDS: METOPROLOL TARTRATE 50 MG TAB PO SCH ×2 (08:25→20:06)
[2017-05-01] MEDS: SERTRALINE HCL 50 MG TAB PO SCH (08:26)
[2017-05-01] MEDS: CYANOCOBALAMIN 500 MCG TAB (VIT B-12) PO SCH (08:27)
[2017-05-01] MEDS: LACTOBACILLUS ACIDOPHILUS (FLORANEX) TAB PO SCH (08:27)
[2017-05-01] MEDS: FLUTICASONE PROPIONATE NA SPR 16 GM BTL NAE SCH (08:27)
[2017-05-01] MEDS: MULTIVITAMIN TAB PO SCH (08:27)
[2017-05-01] MEDS: FERROUS SULFATE 325 MG TAB PO SCH (08:27)
[2017-05-01] MEDS: CALCIUM 600MG + VIT D 400 IU TAB PO SCH ×2 (08:28→20:06)
[2017-05-01] MEDS: HYDROCORTISONE 10 MG TAB PO SCH (08:28)
[2017-05-01] MEDS: ASPIRIN 81 MG ECTAB PO SCH (08:28)
[2017-05-01] MEDS: INSULIN HUMAN NPH SQ SCH (08:29)
[2017-05-01] MEDS: INSULIN ASPART 100 UNITS/ML 3 ML PEN SC SCH ×4 (08:29→20:35)
[2017-05-01 08:36] LABS: CALCIUM 8.9 mg/dl (8.5-10.1); CREATININE 0.57 mg/dl (0.60-1.20)
[2017-05-01] MEDS: CYANOCOBALAMIN 100 MCG TAB (VIT B-12) PO SCH (10:29)
[2017-05-01] MEDS: ALBUT/IPRATROP 3MG/0.5MG NEB 3 ML VIAL INH SCH ×4 (11:37→23:00)
--- NOTE | 2017-05-01 11:42 | PULMONARY PROGRESS NOTE ---
DATE: 05/01/2017 SUBJECTIVE: The patient feels more dyspneic with chest tightness. She feels she is not getting her neb treatments round the clock as she needs her high-dose steroid therapy. She is scheduled for a bronchoscopic intervention tomorrow. OBJECTIVE: VITAL SIGNS: Stable. SKIN: Without lesion. HEENT: Atraumatic. LUNGS: Decreased breath sounds bilaterally. No audible wheezing. CARDIAC: Regular rate and rhythm. I do not appreciate a gallop. ABDOMEN: Soft, scaphoid. EXTREMITIES: No pedal edema, clubbing or cyanosis. ASSESSMENT: A 56-year-old with severe bronchiectasis, chronic obstructive pulmonary disease, O2 and steroid dependent with hypogammaglobulinemia with acute exacerbation. PLAN: Aerosolized bronchodilator round the clock with IV Solu-Medrol and bronchoscopic intervention tomorrow.
[2017-05-01] MEDS: METHYLPREDNISOLONE IV 40 MG in SYRINGE 0 ML IV SCH ×2 (11:54→16:09)
--- NOTE | 2017-05-01 13:52 | Progress Note ---
Internal Med Progress Note Date of Service: May 01, 2017. Provider Documentation: SUBJECTIVE: Seen and examined at bedside Reports she is able to bring out mucous today Cough got worse overnight but currently improved Reports diarrhea chronic SOB, no worsening Denies chest pain No other complaints Planned for Bronchoscopy tomorrow OBJECTIVE: Vital Signs-as noted below Physical Exam: General Appearance:Moderately built and nourished, no apparent distress Head: normocephalic, Atraumatic Eyes: normal inspection, EOMI, PERRL Neck: supple, Trachea midline Respiratory/Chest: Decreased breath sounds, scattered wheezes Cardiovascular: S1, S2, No murmur Abdomen/GI:Soft, Non tender, Bowel sounds present Extremities/Musculoskelatal:normal inspection, no edema Neurologic/Psych:AAOX3, grossly no focal neurological deficits Skin: normal color, warm Lab data as noted below. ASSESSMENT & PLAN: Patient is a 56 yr female with a PMH of bronchiectasis, COPD (on home steroids, O2), hypogammaglobulinemia (receives monthly injections via port, last 04/06/17) , steroid-induced DM and avascular necrosis of R hip, persistent sinus tachycardia and depression who presents with R sided chest pain associated with cough. Pneumonitis with mucoid Impaction In setting of Advanced bronchiectasis, COPD Chronic steroid and 2-4L NC home O2 dependency CTA: suggestive of progression of scattered nodular densities, No PE Continue Zosyn and azithromycin Blood cultures:no growth Sputum cultures: gram negative bacilli Planned for Bronchoscopy tomorrow Appreciate Pulmonary Input Duonebs PRN Oxygen support Lactate normal Continue solu-medrol leukocytosis likely secondary to solu-medrol Diarrhea: Check stools for C.diff Hypogammaglobulinemia: Receives monthly injections Last injection 04/06/17 Steroid-induced DM: A1C:6.0 On solumedrol Continue ISS, NPH BG checks AC HS Avascular necrosis of R hip: Surgery scheduled in June Pain control PT/OT Depression: Continue zoloft DVT Px: SQ Lovenox/SCDs Code status: Full Code Disposition: Observation telemetry. Plan to return home once medically stable. Vital Signs: Date Time Temp Pulse Resp B/P (MAP) Pulse Ox O2 Delivery O2 Flow Rate FiO2 05/01/17 14:34 89 18 93 Nasal Cannula 4.0 05/01/17 12:00 Nasal Cannula 4.0 05/01/17 11:59 36.6 73 18 96/60 (72) 93 Nasal Cannula 05/01/17 11:38 83 18 95 Nasal Cannula 4.0 05/01/17 08:14 36.7 99 18 109/72 (84) 92 Nasal Cannula 4.0 05/01/17 08:00 Nasal Cannula 4.0 05/01/17 04:00 Room Air 05/01/17 03:43 36.8 96 25 117/71 (86) 88 Nasal Cannula 4.0 04/30/17 23:59 Room Air 04/30/17 23:57 89 18 95 Nasal Cannula 4.0 04/30/17 23:35 36.9 80 17 109/69 (82) 95 Nasal Cannula 4.0 04/30/17 20:11 36.8 89 20 111/71 (84) 92 Nasal Cannula 4.0 04/30/17 20:00 Nasal Cannula 4.0 04/30/17 16:00 Nasal Cannula 4.0 Lab Results: Results Past 24 Hours Test 04/30/17 16:13 05/01/17 06:39 05/01/17 07:39 05/01/17 11:36 Range/Units Bedside Glucose 124 110 147 70-90 mg/dl White Blood Count 13.02 4.8-10.8 K/uL Red Blood Count 3.64 4.2-5.4 M/uL Hemoglobin 9.3 12.0-16.0 g/dL Hematocrit 31.5 37-47 % Mean Corpuscular Volume 86.5 80-100 fL Mean Corpuscular Hemoglobin 25.5 25-34 pg Mean Corpuscular Hemoglobin Concent 29.5 32-36 g/dl RDW Standard Deviation 47.9 36.4-46.3 fL RDW Coefficient of Variation 15.1 11.5-14.5 % Platelet Count 234 130-400 K/uL Mean Platelet Volume 9.0 7.4-10.4 fL Sodium Level 137 136-145 mmol/L Potassium Level 4.0 3.5-5.1 mmol/L Chloride Level 99 98-107 mmol/L Carbon Dioxide Level 34 21-32 mmol/L Anion Gap 5.0 3-11 mmol/L Blood Urea Nitrogen 13 7-18 mg/dl Creatinine 0.57 0.60-1.20 mg/dl Est Creatinine Clear Calc Drug Dose 105.0 ml/min Estimated GFR () 121.0 Estimated GFR (Non- 104.4 BUN/Creatinine Ratio 22.3 10-20 Random Glucose 98 70-99 mg/dl Calcium Level 8.9 8.5-10.1 mg/dl Magnesium Level 2.3 1.8-2.4 mg/dl Microbiology Results 05/01/17 C.difficile Toxin B Gene (PCR), Received Pending
[2017-05-01] MEDS: AZITHROMYCIN IV 500 MG in DEXTROSE 5% 250ML 250 ML IV SCH (17:16)
[2017-05-02] VITALS (12 sets, daily range): BP systolic 110–130; BP diastolic 65–75; PULSE 81–98; TEMP 36.9–37.2; O2SAT 91–96
[2017-05-02] MEDS: PIPERACILL/TAZOBAC IV 3.375 GM in DEXTROSE 5% 100ML 100 ML IV SCH ×3 (03:31→20:36)
[2017-05-02] MEDS: ALBUT/IPRATROP 3MG/0.5MG NEB 3 ML VIAL INH SCH ×5 (03:44→20:52)
[2017-05-02 07:15] LABS: HEMATOCRIT 29.6 % (37-47); MEAN CELL VOLUME 85.5 fL (80-100); MEAN CORPUSCULAR HGB CONC 30.4 g/dl (32-36); MEAN PLATELET VOLUME 8.8 fL (7.4-10.4); PLATELET COUNT 250 K/uL (130-400); RED CELL DISTRIBUTION WIDTH SD 46.8 fL (36.4-46.3); WHITE BLOOD COUNT 9.24 K/uL (4.8-10.8)
[2017-05-02 07:49] LABS: CALCIUM 8.8 mg/dl (8.5-10.1); CREATININE 0.6 mg/dl (0.60-1.20); POTASSIUM 4.4 mmol/L (3.5-5.1)
[2017-05-02] MEDS: INSULIN ASPART 100 UNITS/ML 3 ML PEN SC SCH ×4 (07:50→20:38)
[2017-05-02] MEDS: METOPROLOL TARTRATE 50 MG TAB PO SCH ×2 (07:51→19:23)
[2017-05-02] MEDS: FLUTICASONE PROPIONATE NA SPR 16 GM BTL NAE SCH (07:54)
[2017-05-02] MEDS: METHYLPREDNISOLONE IV 40 MG in SYRINGE 0 ML IV SCH ×3 (08:59→16:21)
[2017-05-02] MEDS: CYANOCOBALAMIN 100 MCG TAB (VIT B-12) PO SCH (09:00)
[2017-05-02] MEDS: PANTOprazole SOD 40 MG TAB PO SCH (09:00)
[2017-05-02] MEDS: LACTOBACILLUS ACIDOPHILUS (FLORANEX) TAB PO SCH (09:00)
[2017-05-02] MEDS: CALCIUM 600MG + VIT D 400 IU TAB PO SCH ×2 (09:00→19:23)
[2017-05-02] MEDS: INSULIN HUMAN NPH SQ SCH (09:00)
[2017-05-02] MEDS: MULTIVITAMIN TAB PO SCH (09:00)
[2017-05-02] MEDS: ASPIRIN 81 MG ECTAB PO SCH (09:00)
[2017-05-02] MEDS: FERROUS SULFATE 325 MG TAB PO SCH (09:00)
[2017-05-02] MEDS: ASCORBIC ACID 500 MG TAB PO SCH (09:00)
[2017-05-02] MEDS: MAGNESIUM OXIDE 400 MG TAB PO SCH (09:00)
[2017-05-02] MEDS ORDERED: NURSING VERBAL MED ORDER ONE (09:30)
[2017-05-02] MEDS ORDERED: SODIUM CHLORIDE 0.9% 1000ML 1,000 ML IV SCH (10:00)
--- NOTE | 2017-05-02 10:06 | Pre Sedation Assessment ---
Pre Sedation Assessment General Date of Sedation: May 02, 2017. Vital Signs Past 12 Hours Date Time Temp Pulse Resp B/P (MAP) Pulse Ox O2 Delivery O2 Flow Rate FiO2 05/02/17 07:46 37.0 89 22 110/65 (80) 91 Nasal Cannula 4.0 05/02/17 07:01 86 18 94 Nasal Cannula 4.0 05/02/17 04:00 Nasal Cannula 4.0 05/02/17 03:44 81 20 95 Nasal Cannula 4.0 05/02/17 03:35 36.9 81 19 114/70 (85) 96 Room Air 05/01/17 23:59 Nasal Cannula 4.0 05/01/17 23:33 37.0 87 18 118/68 (85) 93 Nasal Cannula 4.0 05/01/17 23:00 85 20 93 Nasal Cannula 4.0 Pre-Sedation Airway Assessment Smoking Status: Former Smoker Hx of Sleep Apnea: No Short Thick Neck: No Oral Cavity: WNL Mallampati Classification: Class III ASA Classification: Class III NPO Status Date of Last Intake of Fluids: May 01, 2017 Time of Last Intake of Fluids: 2358 Date of Last Intake of Solids: May 01, 2017 Time of Last Intake of Solids: 2358 Procedure Planning Contraindications for Sedation: None Current Medications Reviewed: Yes Notes The planned sedation has been discussed with the patient. Informed Consent was obtained. I have identified the patient, determined the appropriateness of sedation and have assessed the patient immediately prior to the procedure. All medicine(s) and interventions are by my order.
[2017-05-02] MEDS ORDERED: FENTANYL CITRATE INJ 50 MCG/1 ML 2 ML VIAL IV ONE (12:22)
--- NOTE | 2017-05-02 12:37 | Post Sedation Assessment ---
Post Sedation Assessment General Date of Sedation May 02, 2017. Vital Signs: Vital Signs Past 12 Hours Date Time Temp Pulse Resp B/P (MAP) Pulse Ox O2 Delivery O2 Flow Rate FiO2 05/02/17 12:30 122 14 140/95 93 Mask 10 05/02/17 12:25 95 14 123/78 94 Mask 8 05/02/17 12:20 95 18 126/77 96 Mask 8 05/02/17 12:10 77 18 135/75 96 Mask 6 05/02/17 11:20 37.0 83 20 114/70 (85) 93 Nasal Cannula 4.0 05/02/17 11:14 85 18 94 Nasal Cannula 4.0 05/02/17 08:00 Nasal Cannula 4.0 Humidified Oxygen 05/02/17 07:46 37.0 89 22 110/65 (80) 91 Nasal Cannula 4.0 05/02/17 07:01 86 18 94 Nasal Cannula 4.0 05/02/17 04:00 Nasal Cannula 4.0 05/02/17 03:44 81 20 95 Nasal Cannula 4.0 05/02/17 03:35 36.9 81 19 114/70 (85) 96 Room Air Post Procedure Recovery Score Activity: (2) Moves 4 extremities * Respiration: (1) Dyspnea/ltd breathing Circulation: (2) +/-20% PreAnes Value Consciousness: (1) Arouseable (by name) Oxygen Saturation: (1) O2 needed for >90% Post Anesthesia Score: 7 Discharge Sedation Level of Care: Fast Track Phase II Post Sedation Plan On clinical assessment, the patient appears to have tolerated the sedation without complications. Patient is recovering as anticipated. Patient will continue to be monitored by nursing and may be discharged when sedation discharge criteria are met per below protocol. Upon Completions of procedure and additional 15 minutes continue every 5 minute vital signs and the P.A.R. score; then discharge to a Phase I or Fast Track to Phase II per the following guidelines: * Discharge Patient to appropriate Phase II area if PAR is 8 or greater or return to pre- procedure baseline. The post - procedure orders will be as directed. * If PAR score is less than 8 or not return to pre-procedure baseline then patient will follow Phase I monitoring till PAR is reached for Phase II. The Phase I may be done in procedure room or may call to secure a Phase I area. * If naloxone or flumazenil are used for reversal, hold in Phase I for an additional 60 -120 minutes before discharge to Phase II. Please call the Sedation Physician to re-evaluate and complete post-note for discharge to Phase II area. Do NOT discharge from procedure sedation or Phase 1 until post- sedation evaluation note is complete by procedure /sedation MD Sedation Discharge Instructions to be given to the patient at discharge to home.
[2017-05-02] MEDS ORDERED: LEVALBUTEROL 1.25MG/3ML NEB INH ONE (12:39)
[2017-05-02] MEDS ORDERED: LIDOCAINE VISCOUS 2% 100ML TOP ONE (12:39)
[2017-05-02] MEDS ORDERED: LIDOCAINE 4% INH SOLN 4 ML BTL TOP ONE (12:39)
[2017-05-02] MEDS ORDERED: LIDOCAINE HCL 2% LOCAL 50ML VIAL INSTIL ONE (12:39)
[2017-05-02] MEDS ORDERED: OXYMETAZOLINE HCL 0.05% NA SPR 15 ML BTL ONE (12:39)
[2017-05-02] MEDS ORDERED: MIDAZOLAM HCL 5 MG/ML 1 ML VIAL IV ONE (12:39)
--- NOTE | 2017-05-02 12:47 | Progress Note ---
Internal Med Progress Note Date of Service: May 02, 2017. Provider Documentation: SUBJECTIVE: Seen and examined at bedside Had bronchoscopy this morning Doing well after bronchoscopy less cough chronic SOB, no worsening Denies chest pain No other complaints Family at bedside OBJECTIVE: Vital Signs-as noted below Physical Exam: General Appearance:Moderately built and nourished, no apparent distress Head: normocephalic, Atraumatic Eyes: normal inspection, EOMI, PERRL Neck: supple, Trachea midline Respiratory/Chest: Decreased breath sounds, scattered wheezes/Rhonchi Cardiovascular: S1, S2, No murmur Abdomen/GI:Soft, Non tender, Bowel sounds present Extremities/Musculoskelatal:normal inspection, no edema Neurologic/Psych:AAOX3, grossly no focal neurological deficits Skin: normal color, warm Lab data as noted below. ASSESSMENT & PLAN: Patient is a 56 yr female with a PMH of bronchiectasis, COPD (on home steroids, O2), hypogammaglobulinemia (receives monthly injections via port, last 04/06/17) , steroid-induced DM and avascular necrosis of R hip, persistent sinus tachycardia and depression who presents with R sided chest pain associated with cough. Pneumonitis with mucoid Impaction In setting of Advanced bronchiectasis, COPD Chronic steroid and 2-4L NC home O2 dependency CTA: suggestive of progression of scattered nodular densities, No PE Continue Zosyn and azithromycin S/P bronchoscopy today Follow up Bronchial washing cultures Blood cultures:no growth Sputum cultures: gram negative bacilli Appreciate Pulmonary Input Duonebs PRN Oxygen support Lactate normal Continue solu-medrol Diarrhea: stools for C.diff: negative Hypogammaglobulinemia: Receives monthly injections Last injection 04/06/17 Steroid-induced DM: A1C:6.0 On solumedrol Continue ISS, NPH BG checks AC HS Avascular necrosis of R hip: Surgery scheduled in June Pain control PT/OT Depression: Continue zoloft DVT Px: SQ Lovenox/SCDs Code status: Full Code Disposition: Observation telemetry. Plan to return home once medically stable. Vital Signs: Date Time Temp Pulse Resp B/P (MAP) Pulse Ox O2 Delivery O2 Flow Rate FiO2 05/02/17 15:04 98 18 92 Nasal Cannula 4.0 05/02/17 14:05 83 16 113/73 (86) 94 Nasal Cannula 4.0 Humidified Oxygen 05/02/17 13:35 81 18 113/72 (86) 95 Nasal Cannula 4.0 Humidified Oxygen 05/02/17 13:05 36.9 94 18 110/72 (85) 91 Nasal Cannula 4.0 Humidified Oxygen 05/02/17 12:56 Oxymask 05/02/17 12:45 102 22 109/73 92 Nasal Cannula 4 05/02/17 12:40 93 22 111/74 92 Nasal Cannula 4 05/02/17 12:35 99 22 126/80 95 Mask 10 05/02/17 12:30 122 14 140/95 93 Mask 10 05/02/17 12:25 95 14 123/78 94 Mask 8 05/02/17 12:20 95 18 126/77 96 Mask 8 05/02/17 12:10 77 18 135/75 96 Mask 6 05/02/17 11:20 37.0 83 20 114/70 (85) 93 Nasal Cannula 4.0 05/02/17 11:14 85 18 94 Nasal Cannula 4.0 05/02/17 08:00 Nasal Cannula 4.0 Humidified Oxygen 05/02/17 07:46 37.0 89 22 110/65 (80) 91 Nasal Cannula 4.0 05/02/17 07:01 86 18 94 Nasal Cannula 4.0 05/02/17 04:00 Nasal Cannula 4.0 05/02/17 03:44 81 20 95 Nasal Cannula 4.0 05/02/17 03:35 36.9 81 19 114/70 (85) 96 Room Air 05/01/17 23:59 Nasal Cannula 4.0 05/01/17 23:33 37.0 87 18 118/68 (85) 93 Nasal Cannula 4.0 05/01/17 23:00 85 20 93 Nasal Cannula 4.0 05/01/17 20:13 36.8 99 20 130/75 (93) 91 Nasal Cannula 4.0 05/01/17 20:00 Nasal Cannula 4.0 05/01/17 19:04 94 18 94 Nasal Cannula 4.0 Lab Results: Results Past 24 Hours Test 05/01/17 16:29 05/01/17 20:16 05/02/17 06:44 05/02/17 07:04 Range/Units Bedside Glucose 215 284 188 70-90 mg/dl White Blood Count 9.24 4.8-10.8 K/uL Red Blood Count 3.46 4.2-5.4 M/uL Hemoglobin 9.0 12.0-16.0 g/dL Hematocrit 29.6 37-47 % Mean Corpuscular Volume 85.5 80-100 fL Mean Corpuscular Hemoglobin 26.0 25-34 pg Mean Corpuscular Hemoglobin Concent 30.4 32-36 g/dl RDW Standard Deviation 46.8 36.4-46.3 fL RDW Coefficient of Variation 15.0 11.5-14.5 % Platelet Count 250 130-400 K/uL Mean Platelet Volume 8.8 7.4-10.4 fL Sodium Level 138 136-145 mmol/L Potassium Level 4.4 3.5-5.1 mmol/L Chloride Level 96 98-107 mmol/L Carbon Dioxide Level 34 21-32 mmol/L Anion Gap 7.0 3-11 mmol/L Blood Urea Nitrogen 11 7-18 mg/dl Creatinine 0.60 0.60-1.20 mg/dl Est Creatinine Clear Calc Drug Dose 99.6 ml/min Estimated GFR () 118.9 Estimated GFR (Non- 102.6 BUN/Creatinine Ratio 18.8 10-20 Random Glucose 153 70-99 mg/dl Calcium Level 8.8 8.5-10.1 mg/dl Magnesium Level 2.3 1.8-2.4 mg/dl Test 05/02/17 11:40 05/02/17 12:27 Range/Units Bedside Glucose 158 70-90 mg/dl Microbiology Results 05/02/17 Fungal Smear, Received Pending 05/02/17 Fungal Culture, Received Pending 05/02/17 Acid Fast Stain, Received Pending 05/02/17 Mycobacterial Culture, Received Pending 05/02/17 Gram Stain, Received Pending 05/02/17 Bronchoalveolar Lavage Culture, Received Pending
[2017-05-02] MEDS: SERTRALINE HCL 50 MG TAB PO SCH (13:35)
--- NOTE | 2017-05-02 17:22 | OPERATIVE REPORT ---
DATE OF OPERATION: 05/02/2017 PROCEDURE: Fiberoptic bronchoscopy with bronchoalveolar lavage. INDICATIONS: Chronic bronchiectasis with recurrent infections/mucoid impaction and persistent respiratory symptoms. ANESTHESIA PREOPERATIVELY: None. ANESTHESIA DURING THE PROCEDURE: 3 mg IV Versed, 25 mcg IV fentanyl, 20 mL 2% Xylocaine spray above and below the cords, and 4% viscous Xylocaine intranasally. DESCRIPTION OF PROCEDURE: Fiberoptic bronchoscope was inserted into the right naris and passed to the level of the true vocal cords. Cords appeared to approximate normally with phonation without evidence of lesions or paralysis. The scope was then introduced into the trachea and right and left tracheobronchial tree. Immediately after entering the subglottic region, the trachea appeared to be almost totally occluded with thick mucoviscous secretions. This was lavaged until clear. I was able to see down into the [place], which was sharp and then entered the right mainstem bronchus. No endobronchial lesion was seen. Right upper lobe, the apical posterior and anterior segments, bronchus intermedius, right middle lobe, medial lateral segments and all basilar segments of the right lower lobe were found to be free of endobronchial lesions down to subsegmental bronchi. A global degree of inflammatory mucosal change was seen. Mucopurulent secretion was lavaged from virtually all lobar and segmental bronchi until clear. The left tracheobronchial tree was explored and similar findings were noted with the left upper lobe, specifically apical-posterior and anterior segments, lingular subdivision with the superior and inferior segments and all basilar segments of left lower lobe were free of endobronchial lesions down to subsegmental bronchi. Copious amount of mucopurulent secretion was lavaged from all lobar segments until clear. A global degree of inflammatory mucosal change was seen throughout the left tracheobronchial tree. No brushings or biopsies were deemed necessary. The patient did desaturate and became quite tachycardic and the procedure was terminated. The patient was administered a nebulizer treatment with Xopenex and then transferred to the telemetry unit in hemodynamically stable with no signs of respiratory compromise. We will await microbiological and cytologic examination of the bronchial washings. I attest to the content of the Intraoperative Record and any orders documented therein. Any exception s are noted below.
[2017-05-02] MEDS: AZITHROMYCIN IV 500 MG in DEXTROSE 5% 250ML 250 ML IV SCH (18:11)
[2017-05-03] VITALS (14 sets, daily range): BP systolic 110–150; BP diastolic 65–81; PULSE 69–94; TEMP 36.7–37.4; O2SAT 93–97
[2017-05-03] MEDS: ALBUT/IPRATROP 3MG/0.5MG NEB 3 ML VIAL INH SCH ×7 (00:05→23:33)
[2017-05-03] MEDS: PIPERACILL/TAZOBAC IV 3.375 GM in DEXTROSE 5% 100ML 100 ML IV SCH (03:50)
[2017-05-03] MEDS: INSULIN ASPART 100 UNITS/ML 3 ML PEN SC SCH ×4 (07:45→20:22)
[2017-05-03] MEDS: INSULIN HUMAN NPH SQ SCH (07:47)
[2017-05-03] MEDS: FLUTICASONE PROPIONATE NA SPR 16 GM BTL NAE SCH (07:48)
[2017-05-03] MEDS: METHYLPREDNISOLONE IV 40 MG in SYRINGE 0 ML IV SCH ×3 (07:48→20:18)
[2017-05-03] MEDS: MULTIVITAMIN TAB PO SCH (07:49)
[2017-05-03] MEDS: GUAIFENESIN 600 MG TABCR PO PRN (07:49)
[2017-05-03] MEDS: SERTRALINE HCL 50 MG TAB PO SCH (07:49)
[2017-05-03] MEDS: LACTOBACILLUS ACIDOPHILUS (FLORANEX) TAB PO SCH (07:49)
[2017-05-03] MEDS: FERROUS SULFATE 325 MG TAB PO SCH (07:49)
[2017-05-03] MEDS: ASCORBIC ACID 500 MG TAB PO SCH (07:50)
[2017-05-03] MEDS: CYANOCOBALAMIN 100 MCG TAB (VIT B-12) PO SCH (07:50)
[2017-05-03] MEDS: CALCIUM 600MG + VIT D 400 IU TAB PO SCH ×2 (07:50→20:18)
[2017-05-03] MEDS: METOPROLOL TARTRATE 50 MG TAB PO SCH ×2 (07:50→20:19)
[2017-05-03] MEDS: ASPIRIN 81 MG ECTAB PO SCH (07:50)
[2017-05-03] MEDS: PANTOprazole SOD 40 MG TAB PO SCH (07:50)
[2017-05-03] MEDS: MAGNESIUM OXIDE 400 MG TAB PO SCH (07:50)
[2017-05-03] MEDS: ENOXAPARIN 40 MG/0.4 ML SYR SQ SCH (07:51)
[2017-05-03 09:16] LABS: CALCIUM 9.5 mg/dl (8.5-10.1); CREATININE 0.83 mg/dl (0.60-1.20); POTASSIUM 3.8 mmol/L (3.5-5.1)
--- NOTE | 2017-05-03 09:54 | Progress Note ---
Medicine Progress Note Date & Time of Visit: May 03, 2017 at 09:53. Subjective Patient reports feeling ok, close to baseline. Has a cough but is unable to expectorate anything. No overnight events noted. Has pain in her right hip and is unable to weight bear or move without holding onto something for support. Denies any other complaints at this time. Objective Last 8 Hrs Date Time Temp Pulse Resp B/P (MAP) Pulse Ox O2 Delivery O2 Flow Rate FiO2 05/03/17 08:12 94 18 97 Nasal Cannula 4.0 05/03/17 08:12 36.7 91 16 120/74 (89) 95 Nasal Cannula 3.0 05/03/17 04:00 Nasal Cannula 4.0 05/03/17 03:48 90 18 95 Nasal Cannula 4.0 05/03/17 03:06 36.7 89 19 110/65 (80) 97 Nasal Cannula 4.0 Physical Exam: GENERAL: Patient is in no acute distress. HEENT: No acute trauma, normocephalic, mucous membranes moist, no nasal congestion, no scleral icterus. NECK: No stridor, trachea is midline. LUNGS: Expiratory wheezes bilaterally, no rhonchi, breath sounds equal. HEART: Without murmurs gallops or rubs, regular rate and rhythm. ABDOMEN: Soft, nontender, bowel sounds positive EXTREMITIES: No cyanosis or edema, moving all 4 extremities, pain and limited ROM in right hip NEUROLOGIC: Oriented x 3, no acute motor or sensory deficits, no focal weakness. SKIN: No rash, no jaundice, no diaphoresis. Laboratory Results: Last 24 Hours Test 05/02/17 11:40 05/02/17 12:27 05/02/17 16:22 05/02/17 20:35 Bedside Glucose 158 mg/dl 225 mg/dl 297 mg/dl Test 05/03/17 06:13 05/03/17 08:32 Bedside Glucose 137 mg/dl Sodium Level 136 mmol/L Potassium Level 3.8 mmol/L Chloride Level 95 mmol/L Carbon Dioxide Level 36 mmol/L Anion Gap 4.0 mmol/L Blood Urea Nitrogen 16 mg/dl Creatinine 0.83 mg/dl Est Creatinine Clear Calc Drug Dose 72.5 ml/min Estimated GFR () 92.0 Estimated GFR (Non- 79.4 BUN/Creatinine Ratio 18.8 Random Glucose 149 mg/dl Calcium Level 9.5 mg/dl Magnesium Level 2.3 mg/dl Date/Time Source Procedure Growth Status 05/02/17 12:27 Bronchial Washings Right & Left Lower Lobe Fungal Smear - Final Resulted 05/02/17 12:27 Bronchial Washings Right & Left Lower Lobe Fungal Culture Pending Resulted 05/02/17 12:27 Bronchial Washings Right & Left Lower Lobe Acid Fast Stain - Final Resulted 05/02/17 12:27 Bronchial Washings Right & Left Lower Lobe Mycobacterial Culture Pending Resulted 05/02/17 12:27 Bronchial Washings Right & Left Lower Lobe Gram Stain - Final Resulted 05/02/17 12:27 Bronchial Washings Right & Left Lower Lobe Bronchoalveolar Lavage Culture Pending Resulted Assessment & Plan RECURRENT BRONCHIECTASIS: with mucoid Impaction -has long standing advanced bronchiectasis, COPD (never smoker) -chronic respiratory failure dependent on steroid and oxygen 2-4L NC at home -CTA: suggestive of progression of scattered nodular densities, No PE -was on Zosyn and azithromycin; changed to cefepime today -S/P bronchoscopy with washings and cultures pending -blood cultures:no growth -Sputum cultures: Acinetobacter -Pulm consulted, appreciate recommendations -Duonebs PRN -Lactate normal -On IV solu-medrol, weaned to q6 hours, will change to q12 tomorrow DIARRHEA: -stools for C.diff: negative -lactobacilus and PRN imodium HYPOGAMMAGLOBULINEMIA: -receives monthly injections -Last injection 04/06/17 STEROID INDUCED DM TYPE II: -HbA1c: 6.0 -on solumedrol -Continue ISS, NPH -BSG AC HS 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 -has surgery scheduled in June -Pain control -PT/OT -limited ambulation due to pain DEPRESSION: -Continue zoloft Current Inpatient Medications: Current Inpatient Medications Medications (Trade) Dose Ordered Sig/Man Route Start Time Stop Time Status Last Admin Dose Admin Ioversol (Optiray 320) 100 ml UD PRN IV 04/29/17 12:30 05/03/17 12:29 Ondansetron HCl (Zofran Inj) 4 mg Q6H PRN IV 04/29/17 15:15 05/29/17 15:14 05/01/17 22:29 4 MG Piperacillin Sod/ Tazobactam Sod 3.375 gm/Dextrose 115 ml @ 28.75 mls/ hr Q8H IV 04/29/17 20:00 05/06/17 19:59 05/03/17 03:50 28.75 MLS/HR Albuterol/ Ipratropium (Duoneb) 3 ml Q4R PRN INH 04/29/17 16:15 05/29/17 16:14 04/30/17 23:55 3 ML Miscellaneous (Iv Fluids Completed) 1 ea PRN PRN N/A 04/29/17 16:15 04/29/18 16:14 04/30/17 06:05 1 EA Albuterol Sulfate (Ventolin 0.083% 2.5MG/3ML Neb) 2.5 mg Q4H PRN INH 04/29/17 16:15 05/29/17 16:14 Aspirin (Ecotrin Tab) 81 mg DAILY PO 04/30/17 09:00 05/30/17 08:59 05/03/17 07:50 81 MG Calcium/Vitamin D (Caltrate Plus Tab) 1 tab BID PO 04/29/17 21:00 05/29/17 20:59 05/03/17 07:50 1 TAB Epinephrine HCl (EpINEphrine INJ 1MG/ML AMP/VIAL) 0.3 mg UD PRN IM 04/29/17 16:15 05/29/17 16:14 Ferrous Sulfate (Feosol Tab) 325 mg DAILY PO 04/30/17 09:00 05/30/17 08:59 05/03/17 07:49 325 MG Fluticasone Propionate (Flonase Nasal [place]) 1 sprays QAM [place] 04/30/17 09:00 05/30/17 08:59 05/03/17 07:48 1 SPRAYS Folic Acid (Folvite Tab) 1 mg QAM PO 04/30/17 09:00 05/30/17 08:59 05/03/17 07:50 1 MG Heparin Sodium (Porcine) (Heparin 100 Unit/ml 5ml Flush) 5 ml PRN PRN IV 04/29/17 16:15 05/29/17 16:14 04/30/17 06:27 5 ML Ibuprofen (Advil Tab) 400 mg TID PRN PO 04/29/17 21:00 05/29/17 20:59 05/01/17 08:24 400 MG Metoprolol Tartrate (Lopressor Tab) 50 mg BID PO 04/29/17 21:00 05/29/17 20:59 05/03/17 07:50 50 MG Multivitamins (Multivitamin Tab) 1 tab QAM PO 04/30/17 09:00 05/30/17 08:59 05/03/17 07:49 1 TAB Pantoprazole Sodium (Protonix Tab) 40 mg QAM PO 04/30/17 09:00 05/30/17 08:59 05/03/17 07:50 40 MG Miscellaneous Information (Consult) 1 ea UD PRN N/A 04/29/17 16:30 05/29/17 16:29 Insulin Human NPH (novoLIN-N NPH) 10 units QAM SQ 04/30/17 09:00 05/30/17 08:59 05/03/17 07:47 10 UNITS Sertraline HCl (Zoloft Tab) 25 mg DAILY PO 04/30/17 09:00 05/30/17 08:59 05/03/17 07:49 25 MG Acetaminophen (Tylenol Tab) 1,000 mg TID PRN PO 04/29/17 17:00 05/29/17 16:59 Ascorbic Acid (Vitamin C Tab) 250 mg DAILY PO 04/30/17 09:00 05/30/17 08:59 05/03/17 07:50 250 MG Guaifenesin (Mucinex Contr Rel Tab) 1,200 mg BID PRN PO 04/29/17 16:45 05/29/17 16:44 05/03/17 07:49 1,200 MG Magnesium Oxide (Mag-Ox Tab) 400 mg DAILY PO 04/30/17 09:00 05/30/17 08:59 05/03/17 07:50 400 MG Lactobacillus Acidophilus (Floranex Tab) 4 tab DAILY PO 04/30/17 09:00 05/30/17 08:59 05/03/17 07:49 4 TAB Insulin Aspart (novoLOG ASPART) SLIDING SCALE If C... ACHS SC 04/29/17 16:45 05/29/17 16:44 05/03/17 07:45 5 UNITS Glucose (Glucose 40% Gel) 15-30 GRAMS 15 GRAMS... UD PRN PO 04/29/17 16:30 05/29/17 16:29 Glucose (Glucose Chew Tab) 4-8 Tablets 4 Tabl... UD PRN PO 04/29/17 16:30 05/29/17 16:29 Dextrose (Dextrose 50% 50ML Syringe) 25-50ML OF 50% DW IV FOR... UD PRN IV 04/29/17 16:30 05/29/17 16:29 Glucagon (Glucagon Inj) 1 mg UD PRN SQ 04/29/17 16:30 05/29/17 16:29 Sodium Chloride 1,000 ml @ 15 mls/hr Q24H IV 05/02/17 10:00 05/03/17 09:59 05/02/17 10:35 15 MLS/HR Methylprednisolone Sodium Succinate 40 mg/Syringe 0.64 ml @ 1.5 mls/min [id number] IV 05/01/17 12:00 05/31/17 11:59 05/03/17 07:48 1.5 MLS/MIN Albuterol/ Ipratropium (Duoneb) 3 ml Q4R INH 05/01/17 12:00 05/31/17 11:59 05/03/17 08:11 3 ML Cyanocobalamin (Vitamin B-12 Tab) 100 mcg DAILY PO 05/01/17 10:30 05/31/17 10:29 05/03/17 07:50 100 MCG Enoxaparin Sodium (Lovenox Inj) 40 mg QAM SQ 05/03/17 09:00 06/02/17 08:59 05/03/17 07:51 40 MG Azithromycin (Zithromax Tab) 500 mg DAILY@1800 PO 05/03/17 18:00 05/05/17 18:01
[2017-05-03] MEDS: CEFEPIME IV 2,000 MG in SYRINGE 7.5 ML IV SCH ×2 (11:14→18:08)
[2017-05-03] MEDS: AZITHROMYCIN 250 MG TAB PO SCH (17:19)
--- NOTE | 2017-05-03 17:50 | Pulmonology Progress Note ---
Pulmonary Progress Note Date of Service May 03, 2017. Attending Dr. Sales Subjective Patient seen and examined at bedside. She denies any of his sputum output. No hemoptysis. No chest pain. She feels improved since having her bronchoscopy yesterday. No acute complaints. Objective GENERAL : No acute distress EYES: No icterus, gaze conjugate NOSE: No evidence of epistaxis. Nasal cannula in place MOUTH: No lesions or candidiasis NECK: Supple LUNGS: wheezes throughout but good aeration to all lung zones. No rhonchi HEART: Rate controlled ABDOMEN: Soft, NT, ND, BS Present EXTREMITIES: No LE edema, pedal pulses intact NEURO: A&OX3 Assessment & Plan BRONCHIECTASIS * Status post bronchoscopy yesterday * Mucous plug evacuated at the level of the ashwin * Please see bronchoscopy report from Dr. Lang for further results from bronchoscopy * Pathology from bronchial lavage shows moderate acute and chronic inflammation with no evidence of malignancy * Continue pulmonary toilet * Continue steroids for bronchospasm but decreased from every 4 hours to every 6 hours * Encourage ambulation - Walker requested * Continue to treat supportively PNEUMONITIS * Previous episode secondary to bronchiectasis * Currently on cefepime and azithromycin * Sputum sample with Acinetobacter Baumanni/Haemol with resistance but susceptible to cefepime * Light normal pavan on bronchial washings * No yeast or acid-fast bacilli seen on bronchial washings * Patient never smoker HYPOGAMMAGLOBULINEMIA * Monthly IVIG treatments * No intervention during this inpatient stay DVT PROPHYLAXIS * Enoxaparin Thank you for including us in the care of this patient. We will continue to follow. Data Medications: Current Inpatient Medications Medications (Trade) Dose Ordered Sig/Man Route Start Time Stop Time Status Last Admin Dose Admin Ondansetron HCl (Zofran Inj) 4 mg Q6H PRN IV 04/29/17 15:15 05/29/17 15:14 05/01/17 22:29 4 MG Albuterol/ Ipratropium (Duoneb) 3 ml Q4R PRN INH 04/29/17 16:15 05/29/17 16:14 04/30/17 23:55 3 ML Miscellaneous (Iv Fluids Completed) 1 ea PRN PRN N/A 04/29/17 16:15 04/29/18 16:14 04/30/17 06:05 1 EA Albuterol Sulfate (Ventolin 0.083% 2.5MG/3ML Neb) 2.5 mg Q4H PRN INH 04/29/17 16:15 05/29/17 16:14 Aspirin (Ecotrin Tab) 81 mg DAILY PO 04/30/17 09:00 05/30/17 08:59 05/03/17 07:50 81 MG Calcium/Vitamin D (Caltrate Plus Tab) 1 tab BID PO 04/29/17 21:00 05/29/17 20:59 05/03/17 07:50 1 TAB Epinephrine HCl (EpINEphrine INJ 1MG/ML AMP/VIAL) 0.3 mg UD PRN IM 04/29/17 16:15 05/29/17 16:14 Ferrous Sulfate (Feosol Tab) 325 mg DAILY PO 04/30/17 09:00 05/30/17 08:59 05/03/17 07:49 325 MG Fluticasone Propionate (Flonase Nasal [place]) 1 sprays QAM ESPERANZA 04/30/17 09:00 05/30/17 08:59 05/03/17 07:48 1 SPRAYS Folic Acid (Folvite Tab) 1 mg QAM PO 04/30/17 09:00 05/30/17 08:59 05/03/17 07:50 1 MG Heparin Sodium (Porcine) (Heparin 100 Unit/ml 5ml Flush) 5 ml PRN PRN IV 04/29/17 16:15 05/29/17 16:14 04/30/17 06:27 5 ML Ibuprofen (Advil Tab) 400 mg TID PRN PO 04/29/17 21:00 05/29/17 20:59 05/01/17 08:24 400 MG Metoprolol Tartrate (Lopressor Tab) 50 mg BID PO 04/29/17 21:00 05/29/17 20:59 05/03/17 07:50 50 MG Multivitamins (Multivitamin Tab) 1 tab QAM PO 04/30/17 09:00 05/30/17 08:59 05/03/17 07:49 1 TAB Pantoprazole Sodium (Protonix Tab) 40 mg QAM PO 04/30/17 09:00 05/30/17 08:59 05/03/17 07:50 40 MG Insulin Human NPH (novoLIN-N NPH) 10 units QAM SQ 04/30/17 09:00 05/30/17 08:59 05/03/17 07:47 10 UNITS Sertraline HCl (Zoloft Tab) 25 mg DAILY PO 04/30/17 09:00 05/30/17 08:59 05/03/17 07:49 25 MG Acetaminophen (Tylenol Tab) 1,000 mg TID PRN PO 04/29/17 17:00 05/29/17 16:59 Ascorbic Acid (Vitamin C Tab) 250 mg DAILY PO 04/30/17 09:00 05/30/17 08:59 05/03/17 07:50 250 MG Guaifenesin (Mucinex Contr Rel Tab) 1,200 mg BID PRN PO 04/29/17 16:45 05/29/17 16:44 05/03/17 07:49 1,200 MG Magnesium Oxide (Mag-Ox Tab) 400 mg DAILY PO 04/30/17 09:00 05/30/17 08:59 05/03/17 07:50 400 MG Lactobacillus Acidophilus (Floranex Tab) 4 tab DAILY PO 04/30/17 09:00 05/30/17 08:59 05/03/17 07:49 4 TAB Insulin Aspart (novoLOG ASPART) SLIDING SCALE If C... ACHS SC 04/29/17 16:45 05/29/17 16:44 05/03/17 16:59 6 UNITS Glucose (Glucose 40% Gel) 15-30 GRAMS 15 GRAMS... UD PRN PO 04/29/17 16:30 05/29/17 16:29 Glucose (Glucose Chew Tab) 4-8 Tablets 4 Tabl... UD PRN PO 04/29/17 16:30 05/29/17 16:29 Dextrose (Dextrose 50% 50ML Syringe) 25-50ML OF 50% DW IV FOR... UD PRN IV 04/29/17 16:30 05/29/17 16:29 Glucagon (Glucagon Inj) 1 mg UD PRN SQ 04/29/17 16:30 05/29/17 16:29 Albuterol/ Ipratropium (Duoneb) 3 ml Q4R INH 05/01/17 12:00 05/31/17 11:59 05/03/17 14:40 3 ML Cyanocobalamin (Vitamin B-12 Tab) 100 mcg DAILY PO 05/01/17 10:30 05/31/17 10:29 05/03/17 07:50 100 MCG Enoxaparin Sodium (Lovenox Inj) 40 mg QAM SQ 05/03/17 09:00 06/02/17 08:59 05/03/17 07:51 40 MG Azithromycin (Zithromax Tab) 500 mg DAILY@1800 PO 05/03/17 18:00 05/05/17 18:01 05/03/17 17:19 500 MG Cefepime HCl 2000 mg/Syringe 20 ml @ 5 mls/min Q8H IV 05/03/17 11:00 05/10/17 10:59 05/03/17 11:14 5 MLS/MIN Methylprednisolone Sodium Succinate 40 mg/Syringe 0.64 ml @ 1.5 mls/min Q6H IV 05/03/17 14:00 05/31/17 11:59 05/03/17 14:23 1.5 MLS/MIN I & O: 24-Hour Column 05/04/17 08:00 Intake Total 1061 ml Output Total 1300 ml Balance -239 ml Vital Signs: Date Time Temp Pulse Resp B/P (MAP) Pulse Ox O2 Delivery O2 Flow Rate FiO2 05/03/17 16:00 Nasal Cannula 4.0 Humidified Oxygen 05/03/17 15:38 37.4 89 20 150/80 (103) 93 Nasal Cannula 4.0 05/03/17 14:40 80 18 96 Nasal Cannula 4.0 05/03/17 12:05 37.1 85 16 128/81 (97) 94 Nasal Cannula 3.0 05/03/17 12:00 Nasal Cannula 4.0 Humidified Oxygen 05/03/17 11:26 84 18 96 Nasal Cannula 4.0 05/03/17 08:12 94 18 97 Nasal Cannula 4.0 05/03/17 08:12 36.7 91 16 120/74 (89) 95 Nasal Cannula 3.0 05/03/17 08:00 Nasal Cannula 4.0 Humidified Oxygen 05/03/17 04:00 Nasal Cannula 4.0 05/03/17 03:48 90 18 95 Nasal Cannula 4.0 05/03/17 03:06 36.7 89 19 110/65 (80) 97 Nasal Cannula 4.0 05/03/17 00:17 36.8 80 17 119/72 (88) 97 Nasal Cannula 4.0 05/03/17 00:06 86 18 96 Nasal Cannula 4.0 05/03/17 00:00 Nasal Cannula 4.0 05/02/17 20:54 94 18 96 Nasal Cannula 4.0 05/02/17 20:00 Nasal Cannula 4.0 05/02/17 19:20 37.2 97 20 130/75 (93) 94 Nasal Cannula 4.0 Laboratory Results: Last 24 Hours Test 05/02/17 20:35 05/03/17 06:13 05/03/17 08:32 05/03/17 11:42 Bedside Glucose 297 mg/dl 137 mg/dl 152 mg/dl Sodium Level 136 mmol/L Potassium Level 3.8 mmol/L Chloride Level 95 mmol/L Carbon Dioxide Level 36 mmol/L Anion Gap 4.0 mmol/L Blood Urea Nitrogen 16 mg/dl Creatinine 0.83 mg/dl Est Creatinine Clear Calc Drug Dose 72.5 ml/min Estimated GFR () 92.0 Estimated GFR (Non- 79.4 BUN/Creatinine Ratio 18.8 Random Glucose 149 mg/dl Calcium Level 9.5 mg/dl Magnesium Level 2.3 mg/dl
[2017-05-03] MEDS ORDERED: MoRPHine SULFATE 4 MG/ML 1 ML CARP\\VIAL IV PRN (18:45)
[2017-05-03] MEDS ORDERED: MoRPHine SULFATE 4 MG/ML 1 ML CARP\\VIAL ONE (18:47)
[2017-05-04] VITALS (9 sets, daily range): BP systolic 115–142; BP diastolic 63–83; PULSE 72–91; TEMP 36.7–36.9; O2SAT 92–97
[2017-05-04] MEDS: CEFEPIME IV 2,000 MG in SYRINGE 7.5 ML IV SCH ×3 (03:20→17:13)
[2017-05-04] MEDS: METHYLPREDNISOLONE IV 40 MG in SYRINGE 0 ML IV SCH ×4 (03:20→21:13)
[2017-05-04] MEDS: ALBUT/IPRATROP 3MG/0.5MG NEB 3 ML VIAL INH SCH ×5 (03:36→20:03)
[2017-05-04] MEDS: MAGNESIUM OXIDE 400 MG TAB PO SCH (08:34)
[2017-05-04] MEDS: ASPIRIN 81 MG ECTAB PO SCH (08:34)
[2017-05-04] MEDS: MULTIVITAMIN TAB PO SCH (08:35)
[2017-05-04] MEDS: CALCIUM 600MG + VIT D 400 IU TAB PO SCH ×2 (08:35→21:13)
[2017-05-04] MEDS: GUAIFENESIN 600 MG TABCR PO PRN (08:35)
[2017-05-04] MEDS: METOPROLOL TARTRATE 50 MG TAB PO SCH ×2 (08:35→21:13)
[2017-05-04] MEDS: LACTOBACILLUS ACIDOPHILUS (FLORANEX) TAB PO SCH (08:35)
[2017-05-04] MEDS: ASCORBIC ACID 500 MG TAB PO SCH (08:35)
[2017-05-04] MEDS: FERROUS SULFATE 325 MG TAB PO SCH (08:35)
[2017-05-04] MEDS: SERTRALINE HCL 50 MG TAB PO SCH (08:35)
[2017-05-04] MEDS: PANTOprazole SOD 40 MG TAB PO SCH (08:36)
[2017-05-04] MEDS: CYANOCOBALAMIN 100 MCG TAB (VIT B-12) PO SCH (08:36)
[2017-05-04] MEDS: ENOXAPARIN 40 MG/0.4 ML SYR SQ SCH (08:36)
[2017-05-04] MEDS: INSULIN ASPART 100 UNITS/ML 3 ML PEN SC SCH ×4 (08:39→21:15)
[2017-05-04] MEDS: INSULIN HUMAN NPH SQ SCH (08:40)
[2017-05-04] MEDS: FLUTICASONE PROPIONATE NA SPR 16 GM BTL NAE SCH (08:40)
--- NOTE | 2017-05-04 17:20 | Pulmonology Progress Note ---
Pulmonary Progress Note Date of Service May 04, 2017. Attending Dr. Sales Subjective Patient admitted with bronchiectasis. Bronchoscopy with Dr. Lang on Tuesday. No malignant cells. Moderate chronic and acute inflammation seen. Gram-negative bacilli now growing on bronchial alveolar lavage. Previous sputum culture with Acinetobacter. Patient states that she still has some cough but shortness of breath is improved. Sisters are present and state that she seems to be improved. No fever, chills, sweats, rigors. No significant sputum production. No chest pain or tightness. Objective GENERAL : No acute distress EYES: No icterus, gaze conjugate NOSE: No evidence of epistaxis. Nasal cannula in place MOUTH: No lesions or candidiasis NECK: Supple LUNGS: wheezes throughout but good aeration to all lung zones. No rhonchi HEART: Rate controlled ABDOMEN: Soft, NT, ND, BS Present EXTREMITIES: No LE edema, pedal pulses intact NEURO: A&OX3 Assessment & Plan BRONCHIECTASIS * Status post bronchoscopy with Dr. Lang * Started on cefepime and azithromycin * Mucous plug evacuated at the level of the ashwin * Please see bronchoscopy report from Dr. Lang for further results from bronchoscopy * Pathology from bronchial lavage shows moderate acute and chronic inflammation with no evidence of malignancy * Gram-negative bacilli now growing from the bronchial alveolar lavage - this is consistent with Acinetobacter species - await ID and sensitivities - continue cefepime * Continue pulmonary toilet * Continue steroids for bronchospasm - decreased from every 4 hours to every 6 hours - 05/03/17 * Duo nebs decreased from every 4 hours to every 6 hours 05/04/17 * Encourage ambulation - Walker is in the room * Assistance with ambulation secondary to 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 * Continue to treat supportively PNEUMONITIS * Previous episode secondary to bronchiectasis * Currently on cefepime and azithromycin * Sputum sample with Acinetobacter Baumanni/Haemol with resistance but susceptible to cefepime - BAL now growing gram-negative bacilli consistent with sputum sample * Light normal pavan on bronchial washings * No yeast or acid-fast bacilli seen on bronchial washings * Patient never smoker HYPOGAMMAGLOBULINEMIA * Monthly IVIG treatments * No intervention during this inpatient stay DVT PROPHYLAXIS * Enoxaparin Thank you for including us in the care of this patient. We will continue to follow as needed. Data Medications: Current Inpatient Medications Medications (Trade) Dose Ordered Sig/Man Route Start Time Stop Time Status Last Admin Dose Admin Ondansetron HCl (Zofran Inj) 4 mg Q6H PRN IV 04/29/17 15:15 05/29/17 15:14 05/01/17 22:29 4 MG Albuterol/ Ipratropium (Duoneb) 3 ml Q4R PRN INH 04/29/17 16:15 05/29/17 16:14 04/30/17 23:55 3 ML Miscellaneous (Iv Fluids Completed) 1 ea PRN PRN N/A 04/29/17 16:15 04/29/18 16:14 04/30/17 06:05 1 EA Albuterol Sulfate (Ventolin 0.083% 2.5MG/3ML Neb) 2.5 mg Q4H PRN INH 04/29/17 16:15 05/29/17 16:14 Aspirin (Ecotrin Tab) 81 mg DAILY PO 04/30/17 09:00 05/30/17 08:59 05/04/17 08:34 81 MG Calcium/Vitamin D (Caltrate Plus Tab) 1 tab BID PO 04/29/17 21:00 05/29/17 20:59 05/04/17 08:35 1 TAB Epinephrine HCl (EpINEphrine INJ 1MG/ML AMP/VIAL) 0.3 mg UD PRN IM 04/29/17 16:15 05/29/17 16:14 Ferrous Sulfate (Feosol Tab) 325 mg DAILY PO 04/30/17 09:00 05/30/17 08:59 05/04/17 08:35 325 MG Fluticasone Propionate (Flonase Nasal [place]) 1 sprays QAM ESPERANZA 04/30/17 09:00 05/30/17 08:59 05/04/17 08:40 1 SPRAYS Folic Acid (Folvite Tab) 1 mg QAM PO 04/30/17 09:00 05/30/17 08:59 05/04/17 08:36 1 MG Heparin Sodium (Porcine) (Heparin 100 Unit/ml 5ml Flush) 5 ml PRN PRN IV 04/29/17 16:15 05/29/17 16:14 04/30/17 06:27 5 ML Ibuprofen (Advil Tab) 400 mg TID PRN PO 04/29/17 21:00 05/29/17 20:59 05/01/17 08:24 400 MG Metoprolol Tartrate (Lopressor Tab) 50 mg BID PO 04/29/17 21:00 05/29/17 20:59 05/04/17 08:35 50 MG Multivitamins (Multivitamin Tab) 1 tab QAM PO 04/30/17 09:00 05/30/17 08:59 05/04/17 08:35 1 TAB Pantoprazole Sodium (Protonix Tab) 40 mg QAM PO 04/30/17 09:00 05/30/17 08:59 05/04/17 08:36 40 MG Insulin Human NPH (novoLIN-N NPH) 10 units QAM SQ 04/30/17 09:00 05/30/17 08:59 05/04/17 08:40 10 UNITS Sertraline HCl (Zoloft Tab) 25 mg DAILY PO 04/30/17 09:00 05/30/17 08:59 05/04/17 08:35 25 MG Acetaminophen (Tylenol Tab) 1,000 mg TID PRN PO 04/29/17 17:00 05/29/17 16:59 Ascorbic Acid (Vitamin C Tab) 250 mg DAILY PO 04/30/17 09:00 05/30/17 08:59 05/04/17 08:35 250 MG Guaifenesin (Mucinex Contr Rel Tab) 1,200 mg BID PRN PO 04/29/17 16:45 05/29/17 16:44 05/04/17 08:35 1,200 MG Magnesium Oxide (Mag-Ox Tab) 400 mg DAILY PO 04/30/17 09:00 05/30/17 08:59 05/04/17 08:34 400 MG Lactobacillus Acidophilus (Floranex Tab) 4 tab DAILY PO 04/30/17 09:00 05/30/17 08:59 05/04/17 08:35 4 TAB Insulin Aspart (novoLOG ASPART) SLIDING SCALE If C... ACHS SC 04/29/17 16:45 05/29/17 16:44 05/04/17 13:06 4 UNITS Glucose (Glucose 40% Gel) 15-30 GRAMS 15 GRAMS... UD PRN PO 04/29/17 16:30 05/29/17 16:29 Glucose (Glucose Chew Tab) 4-8 Tablets 4 Tabl... UD PRN PO 04/29/17 16:30 05/29/17 16:29 Dextrose (Dextrose 50% 50ML Syringe) 25-50ML OF 50% DW IV FOR... UD PRN IV 04/29/17 16:30 05/29/17 16:29 Glucagon (Glucagon Inj) 1 mg UD PRN SQ 04/29/17 16:30 05/29/17 16:29 Cyanocobalamin (Vitamin B-12 Tab) 100 mcg DAILY PO 05/01/17 10:30 05/31/17 10:29 05/04/17 08:36 100 MCG Enoxaparin Sodium (Lovenox Inj) 40 mg QAM SQ 05/03/17 09:00 06/02/17 08:59 05/04/17 08:36 40 MG Azithromycin (Zithromax Tab) 500 mg DAILY@1800 PO 05/03/17 18:00 05/05/17 18:01 05/03/17 17:19 500 MG Cefepime HCl 2000 mg/Syringe 20 ml @ 5 mls/min Q8H IV 05/03/17 11:00 05/10/17 10:59 05/04/17 11:31 5 MLS/MIN Morphine Sulfate (MoRPHine SULFATE INJ) 4 mg Q4 PRN IV 05/03/17 18:45 05/17/17 18:44 Methylprednisolone Sodium Succinate 40 mg/Syringe 0.64 ml @ 1.5 mls/min Q12 IV 05/04/17 21:00 05/31/17 11:59 Albuterol/ Ipratropium (Duoneb) 3 ml Q6R INH 05/04/17 21:00 05/31/17 11:59 I & O: 24-Hour Column 05/05/17 08:00 Intake Total 720 ml Balance 720 ml Vital Signs: Date Time Temp Pulse Resp B/P (MAP) Pulse Ox O2 Delivery O2 Flow Rate FiO2 05/04/17 15:26 36.7 77 20 142/83 (102) 95 Nasal Cannula 4.0 05/04/17 15:23 Nasal Cannula 4.0 Humidified Oxygen 05/04/17 14:48 72 18 97 Nasal Cannula 4.0 05/04/17 12:00 Nasal Cannula 4.0 Humidified Oxygen 1/24/18 11:34 36.9 81 18 115/72 (86) 95 Nasal Cannula 4.0 Humidified Oxygen 05/04/17 11:18 91 18 97 Nasal Cannula 4.0 05/04/17 08:00 Nasal Cannula 4.0 Humidified Oxygen 05/04/17 06:57 36.7 79 20 130/74 (92) 92 Nasal Cannula 4.0 05/04/17 04:29 36.7 78 17 118/63 (81) 94 Nasal Cannula 4.0 05/04/17 04:00 Nasal Cannula 4.0 05/04/17 03:36 84 18 96 Nasal Cannula 4.0 05/04/17 00:00 Nasal Cannula 4.0 05/03/17 23:53 36.8 76 17 143/78 (99) 94 Nasal Cannula 4.0 05/03/17 23:33 69 18 96 Nasal Cannula 4.0 05/03/17 19:50 76 18 94 Nasal Cannula 4.0 05/03/17 19:43 Nasal Cannula 4.0 Humidified Oxygen 05/03/17 18:57 37.3 90 20 136/81 (99) 94 Nasal Cannula 4.0 Laboratory Results: Last 24 Hours Test 05/03/17 20:16 05/04/17 06:26 05/04/17 11:21 05/04/17 16:20 Bedside Glucose 188 mg/dl 161 mg/dl 213 mg/dl 150 mg/dl
[2017-05-04] MEDS: AZITHROMYCIN 250 MG TAB PO SCH (17:24)
--- NOTE | 2017-05-04 19:35 | Progress Note ---
Medicine Progress Note Date & Time of Visit: May 04, 2017 at 19:35. Subjective Patient is doing ok, is coughing but states she is able to bring up more today than she had been. No overnight events noted. Tolerating PO. Family was at the bedside and were updated. Objective Last 8 Hrs Date Time Temp Pulse Resp B/P (MAP) Pulse Ox O2 Delivery O2 Flow Rate FiO2 05/04/17 15:26 36.7 77 20 142/83 (102) 95 Nasal Cannula 4.0 05/04/17 15:23 Nasal Cannula 4.0 Humidified Oxygen 05/04/17 14:48 72 18 97 Nasal Cannula 4.0 05/04/17 12:00 Nasal Cannula 4.0 Humidified Oxygen Physical Exam: GENERAL: Patient is in no acute distress. HEENT: No acute trauma, normocephalic, mucous membranes moist, no nasal congestion, no scleral icterus. NECK: No stridor, trachea is midline. LUNGS: Expiratory wheezes bilaterally, no rhonchi, breath sounds equal. HEART: Without murmurs gallops or rubs, regular rate and rhythm. ABDOMEN: Soft, nontender, bowel sounds positive EXTREMITIES: No cyanosis or edema, moving all 4 extremities, pain and limited ROM in right hip NEUROLOGIC: Oriented x 3, no acute motor or sensory deficits, no focal weakness. SKIN: No rash, no jaundice, no diaphoresis. Laboratory Results: Last 24 Hours Test 05/03/17 20:16 05/04/17 06:26 05/04/17 11:21 05/04/17 16:20 Bedside Glucose 188 mg/dl 161 mg/dl 213 mg/dl 150 mg/dl Assessment & Plan RECURRENT BRONCHIECTASIS: with mucoid Impaction -has long standing advanced bronchiectasis, COPD (never smoker) -chronic respiratory failure dependent on steroid and oxygen 2-4L NC at home -CTA: suggestive of progression of scattered nodular densities, No PE -was on Zosyn and azithromycin; changed to cefepime today -S/P bronchoscopy with washings and cultures pending -blood cultures:no growth -Sputum cultures: Acinetobacter -Pulm consulted, appreciate recommendations -Duonebs PRN -Lactate normal -On IV solu-medrol, weaned to q6 hours, will change to q12 today and PO tomorrow DIARRHEA: -stools for C.diff: negative -lactobacilus and PRN imodium HYPOGAMMAGLOBULINEMIA: -receives monthly injections -Last injection 04/06/17 STEROID INDUCED DM TYPE II: -HbA1c: 6.0 -on solumedrol -Continue ISS, NPH -BSG AC HS 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 -has surgery scheduled in June -Pain control -PT/OT -limited ambulation due to pain DEPRESSION: -Continue zoloft Current Inpatient Medications: Current Inpatient Medications Medications (Trade) Dose Ordered Sig/Man Route Start Time Stop Time Status Last Admin Dose Admin Ondansetron HCl (Zofran Inj) 4 mg Q6H PRN IV 04/29/17 15:15 05/29/17 15:14 05/01/17 22:29 4 MG Albuterol/ Ipratropium (Duoneb) 3 ml Q4R PRN INH 04/29/17 16:15 05/29/17 16:14 04/30/17 23:55 3 ML Miscellaneous (Iv Fluids Completed) 1 ea PRN PRN N/A 04/29/17 16:15 04/29/18 16:14 04/30/17 06:05 1 EA Albuterol Sulfate (Ventolin 0.083% 2.5MG/3ML Neb) 2.5 mg Q4H PRN INH 04/29/17 16:15 05/29/17 16:14 Aspirin (Ecotrin Tab) 81 mg DAILY PO 04/30/17 09:00 05/30/17 08:59 05/04/17 08:34 81 MG Calcium/Vitamin D (Caltrate Plus Tab) 1 tab BID PO 04/29/17 21:00 05/29/17 20:59 05/04/17 08:35 1 TAB Epinephrine HCl (EpINEphrine INJ 1MG/ML AMP/VIAL) 0.3 mg UD PRN IM 04/29/17 16:15 05/29/17 16:14 Ferrous Sulfate (Feosol Tab) 325 mg DAILY PO 04/30/17 09:00 05/30/17 08:59 05/04/17 08:35 325 MG Fluticasone Propionate (Flonase Nasal [place]) 1 sprays QAM ESPERANZA 04/30/17 09:00 05/30/17 08:59 05/04/17 08:40 1 SPRAYS Folic Acid (Folvite Tab) 1 mg QAM PO 04/30/17 09:00 05/30/17 08:59 05/04/17 08:36 1 MG Heparin Sodium (Porcine) (Heparin 100 Unit/ml 5ml Flush) 5 ml PRN PRN IV 04/29/17 16:15 05/29/17 16:14 04/30/17 06:27 5 ML Ibuprofen (Advil Tab) 400 mg TID PRN PO 04/29/17 21:00 05/29/17 20:59 05/01/17 08:24 400 MG Metoprolol Tartrate (Lopressor Tab) 50 mg BID PO 04/29/17 21:00 05/29/17 20:59 05/04/17 08:35 50 MG Multivitamins (Multivitamin Tab) 1 tab QAM PO 04/30/17 09:00 05/30/17 08:59 05/04/17 08:35 1 TAB Pantoprazole Sodium (Protonix Tab) 40 mg QAM PO 04/30/17 09:00 05/30/17 08:59 05/04/17 08:36 40 MG Insulin Human NPH (novoLIN-N NPH) 10 units QAM SQ 04/30/17 09:00 05/30/17 08:59 05/04/17 08:40 10 UNITS Sertraline HCl (Zoloft Tab) 25 mg DAILY PO 04/30/17 09:00 05/30/17 08:59 05/04/17 08:35 25 MG Acetaminophen (Tylenol Tab) 1,000 mg TID PRN PO 04/29/17 17:00 05/29/17 16:59 Ascorbic Acid (Vitamin C Tab) 250 mg DAILY PO 04/30/17 09:00 05/30/17 08:59 05/04/17 08:35 250 MG Guaifenesin (Mucinex Contr Rel Tab) 1,200 mg BID PRN PO 04/29/17 16:45 05/29/17 16:44 05/04/17 08:35 1,200 MG Magnesium Oxide (Mag-Ox Tab) 400 mg DAILY PO 04/30/17 09:00 05/30/17 08:59 05/04/17 08:34 400 MG Lactobacillus Acidophilus (Floranex Tab) 4 tab DAILY PO 04/30/17 09:00 05/30/17 08:59 05/04/17 08:35 4 TAB Insulin Aspart (novoLOG ASPART) SLIDING SCALE If C... ACHS SC 04/29/17 16:45 05/29/17 16:44 05/04/17 17:10 6 UNITS Glucose (Glucose 40% Gel) 15-30 GRAMS 15 GRAMS... UD PRN PO 04/29/17 16:30 05/29/17 16:29 Glucose (Glucose Chew Tab) 4-8 Tablets 4 Tabl... UD PRN PO 04/29/17 16:30 05/29/17 16:29 Dextrose (Dextrose 50% 50ML Syringe) 25-50ML OF 50% DW IV FOR... UD PRN IV 04/29/17 16:30 05/29/17 16:29 Glucagon (Glucagon Inj) 1 mg UD PRN SQ 04/29/17 16:30 05/29/17 16:29 Cyanocobalamin (Vitamin B-12 Tab) 100 mcg DAILY PO 05/01/17 10:30 05/31/17 10:29 05/04/17 08:36 100 MCG Enoxaparin Sodium (Lovenox Inj) 40 mg QAM SQ 05/03/17 09:00 06/02/17 08:59 05/04/17 08:36 40 MG Azithromycin (Zithromax Tab) 500 mg DAILY@1800 PO 05/03/17 18:00 05/05/17 18:01 05/04/17 17:24 500 MG Cefepime HCl 2000 mg/Syringe 20 ml @ 5 mls/min Q8H IV 05/03/17 11:00 05/10/17 10:59 05/04/17 17:13 5 MLS/MIN Morphine Sulfate (MoRPHine SULFATE INJ) 4 mg Q4 PRN IV 05/03/17 18:45 05/17/17 18:44 Methylprednisolone Sodium Succinate 40 mg/Syringe 0.64 ml @ 1.5 mls/min Q12 IV 05/04/17 21:00 05/31/17 11:59 Albuterol/ Ipratropium (Duoneb) 3 ml Q6R INH 05/04/17 21:00 05/31/17 11:59
[2017-05-05] VITALS (10 sets, daily range): BP systolic 113–121; BP diastolic 64–76; PULSE 66–96; TEMP 36.6–36.9; O2SAT 95–98
[2017-05-05] MEDS: ALBUT/IPRATROP 3MG/0.5MG NEB 3 ML VIAL INH SCH ×3 (02:08→14:14)
[2017-05-05] MEDS: CEFEPIME IV 2,000 MG in SYRINGE 7.5 ML IV SCH ×3 (03:00→19:40)
[2017-05-05 05:49] LABS: HEMOGLOBIN 10.7 g/dL (12.0-16.0); WHITE BLOOD COUNT 10.49 K/uL (4.8-10.8)
[2017-05-05 05:50] LABS: HEMATOCRIT 33.5 % (37-47); MEAN CELL VOLUME 83.3 fL (80-100); MEAN CORPUSCULAR HEMOGLOBIN 26.6 pg (25-34); MEAN CORPUSCULAR HGB CONC 31.9 g/dl (32-36); MEAN PLATELET VOLUME 8.9 fL (7.4-10.4); PLATELET COUNT 323 K/uL (130-400); RED CELL DISTRIBUTION WIDTH CV 15.7 % (11.5-14.5); RED CELL DISTRIBUTION WIDTH SD 47.6 fL (36.4-46.3)
[2017-05-05 06:14] LABS: CREATININE 0.72 mg/dl (0.60-1.20)
[2017-05-05] MEDS: INSULIN ASPART 100 UNITS/ML 3 ML PEN SC SCH ×4 (08:20→21:00)
[2017-05-05] MEDS: INSULIN HUMAN NPH SQ SCH (08:20)
[2017-05-05] MEDS: METHYLPREDNISOLONE IV 40 MG in SYRINGE 0 ML IV SCH ×2 (08:23→21:02)
[2017-05-05] MEDS: FERROUS SULFATE 325 MG TAB PO SCH (08:23)
[2017-05-05] MEDS: CALCIUM 600MG + VIT D 400 IU TAB PO SCH ×2 (08:23→21:02)
[2017-05-05] MEDS: FLUTICASONE PROPIONATE NA SPR 16 GM BTL NAE SCH (08:23)
[2017-05-05] MEDS: LACTOBACILLUS ACIDOPHILUS (FLORANEX) TAB PO SCH (08:24)
[2017-05-05] MEDS: ASCORBIC ACID 500 MG TAB PO SCH (08:25)
[2017-05-05] MEDS: SERTRALINE HCL 50 MG TAB PO SCH (08:25)
[2017-05-05] MEDS: CYANOCOBALAMIN 100 MCG TAB (VIT B-12) PO SCH (08:25)
[2017-05-05] MEDS: MAGNESIUM OXIDE 400 MG TAB PO SCH (08:25)
[2017-05-05] MEDS: MULTIVITAMIN TAB PO SCH (08:26)
[2017-05-05] MEDS: ENOXAPARIN 40 MG/0.4 ML SYR SQ SCH (08:26)
[2017-05-05] MEDS: METOPROLOL TARTRATE 50 MG TAB PO SCH ×2 (08:27→21:02)
[2017-05-05] MEDS: PANTOprazole SOD 40 MG TAB PO SCH (08:27)
[2017-05-05] MEDS: ASPIRIN 81 MG ECTAB PO SCH (08:27)
[2017-05-05 14:45] LABS: HERPES SIMPLEX VIRUS CULT NOT ISOLATED (NOT ISOLATED)
[2017-05-05] MEDS: AZITHROMYCIN 250 MG TAB PO SCH (17:20)
--- NOTE | 2017-05-05 19:07 | Progress Note ---
Medicine Progress Note Date & Time of Visit: May 05, 2017 at 19:07. Subjective Patient doing well, denies any new complaints, states she feels the cough is a little better and she is clearing secretions better. No overnight events noted. Tolerating PO. Has been increasing her ambulation. Objective Last 8 Hrs Date Time Temp Pulse Resp B/P (MAP) Pulse Ox O2 Delivery O2 Flow Rate FiO2 05/05/17 16:00 Nasal Cannula 4.0 05/05/17 15:32 36.9 74 18 115/67 (83) 95 Nasal Cannula 4.0 05/05/17 14:14 66 18 98 Nasal Cannula 4.0 05/05/17 12:00 Nasal Cannula 4.0 05/05/17 11:52 36.9 96 18 115/74 (88) 96 Nasal Cannula 4.0 Physical Exam: GENERAL: Patient is in no acute distress. HEENT: No acute trauma, normocephalic, mucous membranes moist, no nasal congestion, no scleral icterus, conjunctivae clear. NECK: No stridor, trachea is midline. LUNGS: Expiratory wheezes bilaterally, no rhonchi, breath sounds equal. HEART: Without murmurs gallops or rubs, regular rate and rhythm. ABDOMEN: Soft, nontender, bowel sounds positive EXTREMITIES: No cyanosis or edema, moving all 4 extremities, pain and limited ROM in right hip NEUROLOGIC: Oriented x 3, no acute motor or sensory deficits, no focal weakness. SKIN: No rash, no jaundice, no diaphoresis. Laboratory Results: Last 24 Hours Test 05/04/17 20:21 05/05/17 05:26 05/05/17 06:41 05/05/17 11:28 Bedside Glucose 207 mg/dl 126 mg/dl 184 mg/dl White Blood Count 10.49 K/uL Red Blood Count 4.02 M/uL Hemoglobin 10.7 g/dL Hematocrit 33.5 % Mean Corpuscular Volume 83.3 fL Mean Corpuscular Hemoglobin 26.6 pg Mean Corpuscular Hemoglobin Concent 31.9 g/dl RDW Standard Deviation 47.6 fL RDW Coefficient of Variation 15.7 % Platelet Count 323 K/uL Mean Platelet Volume 8.9 fL Creatinine 0.72 mg/dl Est Creatinine Clear Calc Drug Dose 84.4 ml/min Estimated GFR () 109.3 Estimated GFR (Non- 94.3 Test 05/05/17 16:26 Bedside Glucose 150 mg/dl Assessment & Plan RECURRENT BRONCHIECTASIS: with mucoid Impaction -has long standing advanced bronchiectasis, COPD (never smoker) -chronic respiratory failure dependent on steroid and oxygen 2-4L NC at home -CTA: suggestive of progression of scattered nodular densities, No PE -was on Zosyn and azithromycin; changed to cefepime day#3 -S/P bronchoscopy with washings and cultures pending -blood cultures:no growth -Sputum cultures: Acinetobacter, sensitive to bactrim which will be changed at discharge -Pulm consulted, appreciate recommendations -Duonebs PRN -Lactate normal -IV solu-medrol weaning, will change to PO tomorrow DIARRHEA: -stools for C.diff: negative -lactobacilus and PRN imodium HYPOGAMMAGLOBULINEMIA: -receives monthly injections -Last injection 04/06/17 STEROID INDUCED DM TYPE II: -HbA1c: 6.0 % -on solumedrol -Continue ISS, NPH -BSG AC HS 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 -has surgery scheduled in June -Pain control -PT/OT -limited ambulation due to pain DEPRESSION: -Continue zoloft Current Inpatient Medications: Current Inpatient Medications Medications (Trade) Dose Ordered Sig/Man Route Start Time Stop Time Status Last Admin Dose Admin Ondansetron HCl (Zofran Inj) 4 mg Q6H PRN IV 04/29/17 15:15 05/29/17 15:14 05/01/17 22:29 4 MG Albuterol/ Ipratropium (Duoneb) 3 ml Q4R PRN INH 04/29/17 16:15 05/29/17 16:14 04/30/17 23:55 3 ML Miscellaneous (Iv Fluids Completed) 1 ea PRN PRN N/A 04/29/17 16:15 04/29/18 16:14 04/30/17 06:05 1 EA Albuterol Sulfate (Ventolin 0.083% 2.5MG/3ML Neb) 2.5 mg Q4H PRN INH 04/29/17 16:15 05/29/17 16:14 Aspirin (Ecotrin Tab) 81 mg DAILY PO 04/30/17 09:00 05/30/17 08:59 05/05/17 08:27 81 MG Calcium/Vitamin D (Caltrate Plus Tab) 1 tab BID PO 04/29/17 21:00 05/29/17 20:59 05/05/17 08:23 1 TAB Epinephrine HCl (EpINEphrine INJ 1MG/ML AMP/VIAL) 0.3 mg UD PRN IM 04/29/17 16:15 05/29/17 16:14 Ferrous Sulfate (Feosol Tab) 325 mg DAILY PO 04/30/17 09:00 05/30/17 08:59 05/05/17 08:23 325 MG Fluticasone Propionate (Flonase Nasal [place]) 1 sprays QAM ESPERANZA 04/30/17 09:00 05/30/17 08:59 05/05/17 08:23 1 SPRAYS Folic Acid (Folvite Tab) 1 mg QAM PO 04/30/17 09:00 05/30/17 08:59 05/05/17 08:25 1 MG Heparin Sodium (Porcine) (Heparin 100 Unit/ml 5ml Flush) 5 ml PRN PRN IV 04/29/17 16:15 05/29/17 16:14 04/30/17 06:27 5 ML Ibuprofen (Advil Tab) 400 mg TID PRN PO 04/29/17 21:00 05/29/17 20:59 05/01/17 08:24 400 MG Metoprolol Tartrate (Lopressor Tab) 50 mg BID PO 04/29/17 21:00 05/29/17 20:59 05/05/17 08:27 50 MG Multivitamins (Multivitamin Tab) 1 tab QAM PO 04/30/17 09:00 05/30/17 08:59 05/05/17 08:26 1 TAB Pantoprazole Sodium (Protonix Tab) 40 mg QAM PO 04/30/17 09:00 05/30/17 08:59 05/05/17 08:27 40 MG Insulin Human NPH (novoLIN-N NPH) 10 units QAM SQ 04/30/17 09:00 05/30/17 08:59 05/05/17 08:20 10 UNITS Sertraline HCl (Zoloft Tab) 25 mg DAILY PO 04/30/17 09:00 05/30/17 08:59 05/05/17 08:25 25 MG Acetaminophen (Tylenol Tab) 1,000 mg TID PRN PO 04/29/17 17:00 05/29/17 16:59 Ascorbic Acid (Vitamin C Tab) 250 mg DAILY PO 04/30/17 09:00 05/30/17 08:59 05/05/17 08:25 250 MG Guaifenesin (Mucinex Contr Rel Tab) 1,200 mg BID PRN PO 04/29/17 16:45 05/29/17 16:44 05/04/17 08:35 1,200 MG Magnesium Oxide (Mag-Ox Tab) 400 mg DAILY PO 04/30/17 09:00 05/30/17 08:59 05/05/17 08:25 400 MG Lactobacillus Acidophilus (Floranex Tab) 4 tab DAILY PO 04/30/17 09:00 05/30/17 08:59 05/05/17 08:24 4 TAB Insulin Aspart (novoLOG ASPART) SLIDING SCALE If C... ACHS SC 04/29/17 16:45 05/29/17 16:44 05/05/17 17:20 5 UNITS Glucose (Glucose 40% Gel) 15-30 GRAMS 15 GRAMS... UD PRN PO 04/29/17 16:30 05/29/17 16:29 Glucose (Glucose Chew Tab) 4-8 Tablets 4 Tabl... UD PRN PO 04/29/17 16:30 05/29/17 16:29 Dextrose (Dextrose 50% 50ML Syringe) 25-50ML OF 50% DW IV FOR... UD PRN IV 04/29/17 16:30 05/29/17 16:29 Glucagon (Glucagon Inj) 1 mg UD PRN SQ 04/29/17 16:30 05/29/17 16:29 Cyanocobalamin (Vitamin B-12 Tab) 100 mcg DAILY PO 05/01/17 10:30 05/31/17 10:29 05/05/17 08:25 100 MCG Enoxaparin Sodium (Lovenox Inj) 40 mg QAM SQ 05/03/17 09:00 06/02/17 08:59 05/05/17 08:26 40 MG Cefepime HCl 2000 mg/Syringe 20 ml @ 5 mls/min Q8H IV 05/03/17 11:00 05/10/17 10:59 05/05/17 11:41 5 MLS/MIN Morphine Sulfate (MoRPHine SULFATE INJ) 4 mg Q4 PRN IV 05/03/17 18:45 05/17/17 18:44 Methylprednisolone Sodium Succinate 40 mg/Syringe 0.64 ml @ 1.5 mls/min Q12 IV 05/04/17 21:00 05/31/17 11:59 05/05/17 08:23 1.5 MLS/MIN Albuterol/ Ipratropium (Duoneb) 3 ml Q6R INH 05/04/17 21:00 05/31/17 11:59 05/05/17 14:14 3 ML
[2017-05-05] MEDS: IBUPROFEN 200 MG TAB PO PRN (21:32)
[2017-05-06] VITALS (7 sets, daily range): BP systolic 105–109; BP diastolic 65–76; PULSE 67–94; TEMP 36.6–36.8; O2SAT 94–98
[2017-05-06] MEDS: ALBUT/IPRATROP 3MG/0.5MG NEB 3 ML VIAL INH SCH ×3 (02:09→14:20)
[2017-05-06] MEDS: CEFEPIME IV 2,000 MG in SYRINGE 7.5 ML IV SCH ×2 (03:12→11:32)
[2017-05-06] MEDS: INSULIN ASPART 100 UNITS/ML 3 ML PEN SC SCH ×2 (08:06→11:56)
[2017-05-06] MEDS: METHYLPREDNISOLONE IV 40 MG in SYRINGE 0 ML IV SCH (08:07)
[2017-05-06] MEDS: INSULIN HUMAN NPH SQ SCH (08:07)
[2017-05-06] MEDS: CALCIUM 600MG + VIT D 400 IU TAB PO SCH (08:08)
[2017-05-06] MEDS: PANTOprazole SOD 40 MG TAB PO SCH (08:08)
[2017-05-06] MEDS: MULTIVITAMIN TAB PO SCH (08:08)
[2017-05-06] MEDS: CYANOCOBALAMIN 100 MCG TAB (VIT B-12) PO SCH (08:08)
[2017-05-06] MEDS: FERROUS SULFATE 325 MG TAB PO SCH (08:08)
[2017-05-06] MEDS: LACTOBACILLUS ACIDOPHILUS (FLORANEX) TAB PO SCH (08:09)
[2017-05-06] MEDS: ASCORBIC ACID 500 MG TAB PO SCH (08:09)
[2017-05-06] MEDS: MAGNESIUM OXIDE 400 MG TAB PO SCH (08:09)
[2017-05-06] MEDS: ASPIRIN 81 MG ECTAB PO SCH (08:09)
[2017-05-06] MEDS: METOPROLOL TARTRATE 50 MG TAB PO SCH (08:10)
[2017-05-06] MEDS: FLUTICASONE PROPIONATE NA SPR 16 GM BTL NAE SCH (08:10)
[2017-05-06] MEDS: SERTRALINE HCL 50 MG TAB PO SCH (08:11)
[2017-05-06] MEDS: ENOXAPARIN 40 MG/0.4 ML SYR SQ SCH (08:11)
--- NOTE | 2017-05-06 14:29 | Discharge Summary ---
Discharge Summary Date of Service May 06, 2017. Discharge Summary Admission Date: May 03, 2017 at 17:16 Discharge Disposition: Home Principal Diagnosis: Acute on chronic respiratory failure, bronchiectasis Medication Reconciliation New Medications: Prednisone (Prednisone) 5 Mg Tab 5 MG PO UD, #72 TAB [id number]; [id number];[id number];[id number];[id number] Sulfa/Trimethoprim (Bactrim Ds 800MG/160MG) Tab 1 TAB PO BID for 4 Days, #8 TAB Continued Medications: Acetaminophen (Tylenol Arthritis Ext Rel) 650 Mg Cplt 1000 MG PO TID PRN for Pain Albuterol Sulf (Albuterol Sulfate) 2.5 Mg/3 Ml Nebu 1 DOSE INH Q4H PRN for Shortness of Breath Alendronate Sodium (Alendronate Sodium) 70 Mg Tab 70 MG PO , #4 Ascorbic Acid (Ascorbic Acid) 250 Mg Tab 250 MG PO DAILY Aspirin (Aspirin Ec) 81 Mg Tab 81 MG PO DAILY Calcium Carbonate-Vitamin D W/ (Caltrate 600 Plus) 1 Tab Tab 1 TAB PO BID, TAB Cyanocobalamin (Vitamin B12) 1,000 Mcg Tab 1000 MCG PO DAILY Diphenhydramine Hcl (Benadryl Allergy) 25 Mg Tab 50 MG IV DAILY PRN for HYPERSENSITIVITY REACTION Epinephrine Hcl (Epinephrine Hcl) 1 Mg/Ml Inj 0.3 ML IM UD PRN for HYPERSENSITIVITY REACTION Ferrous Sulfate (Ferrous Sulfate) 325 Mg Tab 325 MG PO DAILY Fluticasone Propionate (Nasal) (Flonase Allergy Relief) 50 Mcg/Act Spr 2 SPRY ESPERANZA QAM Folic Acid (Folic Acid) 1 Mg Tab 1 MG PO QAM Guaifenesin (Mucinex Maximum Strength) 1,200 Mg Tab 1200 MG PO BID PRN for CONGESTION Heparin Sodium (Porcine) Lock (Heparin Lock Flush) 100 Unit/Ml Inj 5 ML UNKNOWN UD PRN for FLUSH Home O2 Therapy (Oxygen) Gas 2-4 LITERS NA DAILY Hydrocortisone (Cortef) 5 Mg Tab 10 MG PO QAM Hydrocortisone Sod Succinate (Solu-Cortef) 100 Mg/2 Ml Inj 2 ML IV DAILY PRN for HYPERSENSITIVITY REACTION Ibuprofen (Motrin) 400 Mg Tab 400 MG PO TID for Pain, TAB PRN Insulin Human NPH (Novolin N) 100 Units/Ml Susp 10 UNITS SQ QAM, #10 Magnesium Oxide (Mg Supplement (Magnesium) 400 Mg Cap 400 MG PO DAILY Metoprolol Tartrate (Lopressor) (Lopressor) 50 Mg Tab 50 MG PO BID Multiple Vitamin (Multivitamin) 1 Tab Tab 1 TAB PO QAM, TAB Pantoprazole (Protonix) 40 Mg Tab 40 MG PO QAM, TAB Probiotic Product (Probiotic) 1 Cap Cap 1 CAP PO DAILY Sertraline (Zoloft) 50 Mg Tab 0.5 TAB PO DAILY for 30 Days, #15 TAB 2 Refills Sodium Chloride (Gu Irrigant) (Sodium Chloride 0.9%) 0.9 % Zakia 10 ML IV UD PRN for FLUSH Admission Information HPI (per Admitting provider): This is a 56yo F with a PMH of bronchiectasis, COPD (on home steroids, O2), hypogammaglobulinemia (receives monthly injections via port, last 04/06/17), steroid-induced DM and avascular necrosis of R hip, persistent sinus tachycardia and depression who presents with pain in her R side starting early this morning. Patient is frequently hospitalized for exacerbations of bronchiectasis/COPD with last admission to [facility] 03/16-03/22. During that time, sputum culture grew stenotrophomonas and patient was treated with tigecycline. Also given IV steroids. Follows with Dr. Villalta in clinic and recently completed Bactrim course as well as a steroid taper. Last bronchoscopy was in Feb 2017. Presents today with sudden onset sharp pain to R lateral ribs/side. Pain is worse with movement and coughing. Was an 8/10 prior to arrival and has decreased to a 3/10 without pain medication. Has been feeling "out of sorts" for the last few months, endorsing intermittent nausea and fatigue. Recently seen by PCP for symptoms of depression and started on Zoloft today. Is at her baseline of 4L NC home O2 and denies any fever, chills, dyspnea on exertion, SOB or wheezing. Has increased hip pain from avascular necrosis of R hip 2/2 chronic steroid use and has surgery scheduled for June, per patient. Was recently taken off of oxycodone due to side effects to mood and is now taking ibuprofen and tylenol. Denies any lightheadedness, palpitations, CP, abd pain, vomiting or LE swelling. No changes to bowel/bladder habits. Physical Exam (per Admitting): General Appearance: no apparent distress, + pertinent finding (chronically ill appearing. Pleasant, cooperative. ) Head: normocephalic, atraumatic Eyes: normal inspection, PERRL, sclerae normal ENT: normal ENT inspection, hearing grossly normal, pharynx normal Neck: supple, no adenopathy, trachea midline Respiratory/Chest: chest non-tender, no respiratory distress, no accessory muscle use, + crackles (bibasilar), + wheezing (diffuse ) Cardiovascular: regular rate, rhythm, no murmur, normal peripheral pulses Abdomen/GI: non tender, soft, no organomegaly Back: normal inspection Extremities/Musculoskelatal: normal inspection, no calf tenderness, no pedal edema Neurologic/Psych: no motor/sensory deficits, alert, normal mood/affect, oriented x 3 Skin: normal color, warm/dry Hospital Course RECURRENT BRONCHIECTASIS: with mucoid Impaction -has long standing advanced bronchiectasis, COPD (never smoker) -chronic respiratory failure dependent on steroid and oxygen 2-4L NC at home -CTA: suggestive of progression of scattered nodular densities, No PE -was on Zosyn and azithromycin; changed to cefepime day#4; to change to bactrim upon discharge for the remainder of the course based on sensitivities -S/P bronchoscopy with washings and cultures growing gram negative bacilli -blood cultures:no growth -Sputum cultures: Acinetobacter, sensitive to bactrim which will be changed at discharge -Pulm consulted, appreciate recommendations -Duonebs PRN -Lactate normal -IV solu-medrol weaning, change to PO today DIARRHEA: -stools for C.diff: negative -lactobacilus and PRN imodium HYPOGAMMAGLOBULINEMIA: -receives monthly injections -Last injection 04/06/17 STEROID INDUCED DM TYPE II: -HbA1c: 6.0 % -on solumedrol -Continue ISS, NPH -BSG AC and HS 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 -has surgery scheduled in June -Pain control -PT/OT -limited ambulation due to pain DEPRESSION: -Continue zoloft PHYSICAL EXAM: GENERAL: Patient is in no acute distress. HEENT: No acute trauma, normocephalic, mucous membranes moist, no nasal congestion, no scleral icterus, conjunctivae clear. NECK: No stridor, trachea is midline. LUNGS: Expiratory wheezes bilaterally, no rhonchi, breath sounds equal. HEART: Without murmurs gallops or rubs, regular rate and rhythm. ABDOMEN: Soft, nontender, bowel sounds positive EXTREMITIES: No cyanosis or edema, moving all 4 extremities, pain and limited ROM in right hip NEUROLOGIC: Oriented x 3, no acute motor or sensory deficits, no focal weakness. SKIN: No rash, no jaundice, no diaphoresis. Total time spent on discharge = 37 This includes examination of the patient, discharge planning, medication reconciliation, and communication with other providers. Discharge Instructions see patient instructions
[2017-05-06] MEDS ORDERED: PRED-301 PO (14:41)
[2017-05-06] MEDS ORDERED: SULF800T23 PO (14:41)
--- NOTE | 2017-05-06 14:48 | Discharge Instructions ---
Discharge Instructions Date of Service May 06, 2017. Admission Reason for Admission: PNA Discharge Discharge Diagnosis / Problem: Bronchiectasis exacerbation Discharge Goals Goal(s): Therapeutic intervention Activity Recommendations Activity Limitations: resume your previous activity . Instructions / Follow-Up Instructions / Follow-Up Please see Ivonne Subramanian on May 11 at 1:15PM for hospital follow up Please see Dr. Lang in 2 weeks Steroid Taper Schedule: 40mg (8tabs x 2 days) 35mg (7tabs x 2 days) 30mg (6tabs x 2 days) 25mg (5tabs x 2 days) 20mg (4tabs x 2 days) 15mg (3tabs x 2 days) 10mg (2tabs x 2 days) 5mg (1tab x 2 days) Current Hospital Diet Patient's current hospital diet: Diabetes Type 2 Diet Discharge Diet Recommended Diet: Diabetes Type 2 Diet Procedures Procedures Performed: Bronchoscopy Pending Studies Studies pending at discharge: no Laboratory Results Hemoglobin A1c Test 04/30/17 05:27 Range/Units Estimated Average Glucose 126 mg/dl Hemoglobin A1c 6.0 H 4.5-5.6 % Medical Emergencies . Who to Call and When: Medical Emergencies: If at any time you feel your situation is an emergency, please call 911 immediately. . Non-Emergent Contact Non-Emergency issues call your: Primary Care Provider, Jig Borer . . "Provider Documentation" section prepared by Janessa Blas. . VTE Core Measure Inpt VTE Proph given/why not?: Enoxaparin (Lovenox)SQ
== END 2017-05-06 16:12 | disposition home or self-care (01) | DRG 166 ==
LOC: C.EDB 09:31 → C.2T 15:12 → EDBEDREQ 15:15 → ENRESERV 15:23 → OBSVTOIN 05-03 17:16
PROVIDERS: ADMIT Internal Medicine; ATTEND Internal Medicine
PROC: 0B9G8ZX Drainage of Left Upper Lung Lobe, Via Natural or Artificial Opening Endoscopic, Diagnostic (ICD-10-PCS; principal; 2017-05-02 12:00)
PROC: 0B9C8ZX Drainage of Right Upper Lung Lobe, Via Natural or Artificial Opening Endoscopic, Diagnostic (ICD-10-PCS; principal; 2017-05-02 12:00)
DX: J18.9 Pneumonia, unspecified organism (principal); J96.20 Acute and chronic respiratory failure, unspecified whether with hypoxia or hypercapnia; J44.0 Chronic obstructive pulmonary disease with (acute) lower respiratory infection; D80.1 Nonfamilial hypogammaglobulinemia; M87.051 Idiopathic aseptic necrosis of right femur; I27.81 Cor pulmonale (chronic); E11.9 Type 2 diabetes mellitus without complications; K21.9 Gastro-esophageal reflux disease without esophagitis; E78.5 Hyperlipidemia, unspecified; G47.33 Obstructive sleep apnea (adult) (pediatric); F32.9 Major depressive disorder, single episode, unspecified; R19.7 Diarrhea, unspecified; Z79.4 Long term (current) use of insulin; Z79.52 Long term (current) use of systemic steroids; Z79.82 Long term (current) use of aspirin; Z79.899 Other long term (current) drug therapy; T38.0X5A Adverse effect of glucocorticoids and synthetic analogues, initial encounter; Z99.81 Dependence on supplemental oxygen

== ENCOUNTER 2017-06-14 04:59 | Inpatient (IN) | payer OTHER ==
[2017-05-16 15:10] VITALS: BMI 27.0
--- NOTE | 2017-05-16 15:48 | PAT Medication Instructions ---
Service Date May 16, 2017. Current Home Medication List Acetaminophen (Tylenol), 1,000 MG PO PRN Albuterol Sulf (Albuterol Sulfate), 1 DOSE INH Q4H PRN for Shortness of Breath Alendronate Sodium (Alendronate Sodium), 70 MG PO Ascorbic Acid (Ascorbic Acid), 250 MG PO HS Aspirin (Aspirin Ec), 81 MG PO QAM Calcium Carbonate-Vitamin D W/ (Caltrate 600 Plus), 1 TAB PO QAM Cyanocobalamin (Vitamin B12), 1,000 MCG PO QAM Ferrous Sulfate (Ferrous Sulfate), 325 MG PO HS Fluticasone Propionate (Nasal) (Flonase Allergy Relief), 2 SPRY ESPERANZA QAM Folic Acid (Folic Acid), 1 MG PO HS Home O2 Therapy (Oxygen), 2-4 LITERS NA DAILY Hydrocortisone (Cortef), 10 MG PO QAM Ibuprofen (Advil), 400 MG PO PRN Insulin Human NPH (Novolin N), 10 UNITS SQ QAM Magnesium Oxide (Mg Supplement (Magnesium), 400 MG PO QAM Metoprolol Tartrate (Lopressor) (Lopressor), 50 MG PO BID Multiple Vitamin (Multivitamin), 1 TAB PO QAM Pantoprazole (Protonix), 40 MG PO QAM Prednisone (Prednisone), 20 MG PO QAM Sertraline (Zoloft), 50 MG PO QAM Tiotropium Sentinel (Spiriva Respimat), 2 PUFF INH QAM [Immunoglobulin], 1 DOSE INJ MONTHLY Medication Instructions For Your Scheduled Surgery - Check with surgeon and prescribing physician for instructions: [Immunoglobulin], 1 DOSE INJ MONTHLY Ibuprofen (Advil), 400 MG PO PRN - Continue as directed: Home O2 Therapy (Oxygen), 2-4 LITERS NA DAILY Prednisone (Prednisone), 20 MG PO QAM (to be completed prior to surgery) Hydrocortisone (Cortef), 10 MG PO QAM Alendronate Sodium (Alendronate Sodium), 70 MG PO - Check with surgeon for instructions: Aspirin (Aspirin Ec), 81 MG PO QAM - Hold the following medications the morning of surgery: Calcium Carbonate-Vitamin D W/ (Caltrate 600 Plus), 1 TAB PO QAM Cyanocobalamin (Vitamin B12), 1,000 MCG PO QAM Magnesium Oxide (Mg Supplement (Magnesium), 400 MG PO QAM Multiple Vitamin (Multivitamin), 1 TAB PO QAM - Take the following medications the morning of surgery with a sip of water: Sertraline (Zoloft), 50 MG PO QAM Tiotropium [place] (Spiriva Respimat), 2 PUFF INH QAM Fluticasone Propionate (Nasal) (Flonase Allergy Relief), 2 SPRY ESPERANZA QAM Pantoprazole (Protonix), 40 MG PO QAM Metoprolol Tartrate (Lopressor) (Lopressor), 50 MG PO BID Acetaminophen (Tylenol), 1,000 MG PO PRN (okay to take up to 4 hours prior to surgery if needed) Albuterol Sulf (Albuterol Sulfate), 1 DOSE INH Q4H PRN for Shortness of Breath - For Insulin Dependent Diabetic patients: Test blood sugar A.M. of surgery. - If Blood sugar greater than 150, take half of your regular dose of: Insulin Human NPH (Novolin N), take 5 units - If Blood sugar less than 150, do not take any: Insulin Human NPH ( Novolin N) If you have any questions please call us at [phone] or [phone] or [phone]
[2017-05-16 16:19] LABS: BASO % 0.1 %; BASO ABS # 0.01 K/uL (0-0.2); EOS % 0.4 %; EOS ABS # 0.06 K/uL (0-0.5); HEMATOCRIT 36.1 % (37-47); HEMOGLOBIN 11.4 g/dL (12.0-16.0); IG# 0.03 K/uL (0.00-0.02); LYMPH % 8.9 %; LYMPH ABS # 1.27 K/uL (1.2-3.4); MEAN CELL VOLUME 84.1 fL (80-100); MEAN CORPUSCULAR HEMOGLOBIN 26.6 pg (25-34); MEAN CORPUSCULAR HGB CONC 31.6 g/dl (32-36); MEAN PLATELET VOLUME 9.9 fL (7.4-10.4); MONO % 1.3 %; MONO ABS # 0.18 K/uL (0.11-0.59); NEUT % 89.1 %; NEUT ABS # 12.72 K/uL (1.4-6.5); PLATELET COUNT 192 K/uL (130-400); RED CELL DISTRIBUTION WIDTH CV 17.6 % (11.5-14.5); RED CELL DISTRIBUTION WIDTH SD 53.8 fL (36.4-46.3); WHITE BLOOD COUNT 14.27 K/uL (4.8-10.8)
[2017-05-16 16:26] LABS: CALCIUM 9.1 mg/dl (8.5-10.1); CREATININE 0.76 mg/dl (0.60-1.20); POTASSIUM 4.8 mmol/L (3.5-5.1)
[2017-05-16 16:27] LABS: INR 0.9 (0.9-1.1)
--- NOTE | 2017-05-16 16:30 | DIAGNOSTIC IMAGING REPORT ---
CHEST 2 VIEWS ROUTINE CLINICAL HISTORY: Preoperative chest COMPARISON STUDY: 04/29/2017 FINDINGS: There are postsurgical changes of a midline sternotomy. There is a right-sided A-Port catheter. There is a right shoulder hemiarthroplasty. The heart is normal in size. There is a trace left pleural effusion. There is underlying bronchiectasis. There is been slight improvement in the bilateral reticulonodular opacities.[ IMPRESSION: 1. Bronchiectasis 2. Minimal interval improvement in the extensive bilateral reticulonodular opacities Electronically signed by: Joshua Sanders M.D. 05/16/2017 4:29 PM Dictated Date/Time: 05/16/2017 4:27 PM
--- NOTE | 2017-06-09 15:40 | HISTORY & PHYSICAL EXAMINATION ---
DATE OF ADMISSION: 06/14/2017 HISTORY AND PHYSICAL ADMISSION NOTE PREOPERATIVE DIAGNOSIS: Avascular necrosis of the right hip. HISTORY OF PRESENT ILLNESS: Valery is a very pleasant 56-year-old female who has been dealing with increasing bilateral hip pain, right worse than left. She has been using a walker over the last 6 months because of her hip pain. 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 She did have a recent shoulder replacement. Unfortunately, she has also developed diabetes from the high doses of steroids. Her hip pain has gotten much worse. She had MRIs of her hips done at an outside institution which confirmed avascular necrosis. After failing extensive conservative treatment, she elected to proceed with anterior total hip arthroplasty. PAST MEDICAL HISTORY: Significant for insulin-dependent diabetes, depression, hyperlipidemia, tachycardia, asthma, anemia, and bronchiectasis. PAST SURGICAL HISTORY: Significant for tonsillectomy, open heart surgery, C-sections, hysterectomy, cholecystectomy, right total shoulder arthroplasty and a MediPort placement. ALLERGIES: ALBUTEROL. MEDICATIONS: Include hydrocortisone 10 mg daily, Lopressor, NovoLog, alendronate, Spiriva, fluticasone, oxycodone and immunoglobulins. FAMILY HISTORY: Significant for diabetes and ovarian lymphoma. SOCIAL HISTORY: She is . She has 1 child. She never drinks. She does little activity and lives by herself in the [facility]. REVIEW OF SYSTEMS: She complains of severe right hip pain. All other pertinent review of systems is negative. PHYSICAL EXAMINATION: GENERAL: She is awake, alert and orient x3. She is in no apparent distress. She is very pleasant. HEENT: Pupils equal, round, reactive to light. Extraocular movements intact. Oral mucosa is pink, moist. HEART: Regular rate per radial pulse. LUNGS: Lisa symmetrically bilaterally with no audible breath sounds. ABDOMEN: Soft, nontender, nondistended. MUSCULOSKELETAL: On physical examination, she ambulates with a wheeled walker. Her leg lengths are essentially equal. She has significant tenderness to palpation with forced forward elevation of her hip and severe pain with forced internal and external rotation. All of her pain is located in her groin and radiates down to her knee on the right side. She has 5/5 muscle strength to straight leg raise. IMAGING DATA: MRI images of the right hip do show advanced osteonecrosis without any signs of significant collapse yet. IMPRESSION: Avascular necrosis of the right hip. PLAN: Will proceed with an anterior right total hip arthroplasty. Postoperatively, she will stay in the hospital, likely for 2 midnights for postoperative medical management. We will use aspirin for DVT prophylaxis.
[~2017-06-14] VITALS: Ht 160 cm; Wt 71.1 kg
[2017-06-14] VITALS (9 sets, daily range): BP systolic 96–126; BP diastolic 60–70; PULSE 66–92; TEMP 36.5–37; O2SAT 94–97; Ht 160 cm; Wt 71.1 kg
[~2017-06-14 04:59] MED LIST changes: +ACET-1256 PO; +ASCO250T5 PO; -ASCO500C43 PO; -ASPCH81X PO; +ASPI81TA28 PO; -DEXT1TAB50 PO; +IBUP-1050 PO; +IMMUNOGLOBULIN INJ; -MCMIN20ML INH; +METOPROLOL TARTRATE 1 MG/ML VIAL ONE; +MIDAZOLAM HCL 1 MG/ML 2ML VIAL ONE; -MISCCAP80 PO; -PRD20 PO; +PRED20TA PO; +SERT50TA PO; -SULF800T23 PO; +TIOT1SPR INH
[2017-06-14] MEDS ORDERED: FAMOTIDINE 20 MG TAB PO SCH (06:00)
[2017-06-14] MEDS ORDERED: LACTATED RINGER'S 1000ML 500 ML IV SCH (06:00)
[2017-06-14] MEDS ORDERED: GABAPENTIN 600 MG PO SCH (06:00)
[2017-06-14] MEDS ORDERED: ROPIVACAINE 5MG/ML 30 ML 150 MG, BUPIVACAINE 0.5% MPF INJ 30 ML, EpINEphrine HCL INJ 0.... INFIL SCH ×8 (06:00)
[2017-06-14] MEDS ORDERED: ACETAMINOPHEN 500 MG TAB PO SCH (06:00)
[2017-06-14] MEDS ORDERED: CEFAZOLIN 2000MG IV PUSH 15 ML IV SCH (06:00)
[2017-06-14] MEDS ORDERED: LACTATED RINGER'S 1000ML IV SCH (06:00)
[2017-06-14] MEDS: LACTATED RINGER'S 1000ML 1,000 ML IV SCH ×2 (06:10→09:40)
[2017-06-14] MEDS ORDERED: BUPIVACAINE 0.5 % 5 MG/1 ML PF 10ML VIAL ONE (06:21)
[2017-06-14] MEDS ORDERED: NITR1CAP32 PO (06:36)
[2017-06-14] MEDS: TRANEXAMIC ACID INJ 1,000 MG x 2 Bags IV SCH ×4 (06:49→07:56)
[2017-06-14] MEDS ORDERED: HYDROmorphone INJ 2 MG/ML SYR/VIAL IV PRN ×2 (07:15→09:45)
[2017-06-14] MEDS ORDERED: ONDANSETRON INJ 2 MG/ML 2 ML VIAL IV PRN ×3 (07:15→09:45)
[2017-06-14] MEDS ORDERED: EpHEDrine SULFATE INJ 50 MG/ML AMP IV PRN ×2 (07:15→09:45)
[2017-06-14] MEDS ORDERED: PHENYLEPHRINE 100MCG/ML 5ML SYR IV PRN ×2 (07:15→09:45)
[2017-06-14] MEDS ORDERED: ATROPINE SULFATE 0.1 MG/ML 5ML SYR IV PRN ×2 (07:15→09:45)
[2017-06-14] MEDS ORDERED: KETOROLAC TROMETHAMINE 30 MG/ML VIAL IV. PRN ×2 (07:15→09:45)
[2017-06-14] MEDS ORDERED: BACITRACIN 50000 UNIT VIAL IR ONE (07:54)
[2017-06-14] MEDS ORDERED: LIDOCAINE HCL 2% 2 ML VIAL (20MG/ML) ONE (08:19)
[2017-06-14] MEDS ORDERED: MIDAZOLAM HCL 1 MG/ML 2ML VIAL ONE (08:19)
[2017-06-14] MEDS ORDERED: PROPOFOL IV EMULSION 10 MG/ML 20 ML VIAL IV ONE (08:19)
[2017-06-14] MEDS ORDERED: ONDANSETRON INJ 2 MG/ML 2 ML VIAL ONE (08:19)
[2017-06-14] MEDS ORDERED: HYDROCORTISONE SOD SUCCINATE 100 MG/2 ML VIAL ONE (08:19)
[2017-06-14] MEDS ORDERED: FENTANYL CITRATE INJ 50 MCG/1 ML 2 ML VIAL ONE (08:19)
--- NOTE | 2017-06-14 08:37 | [facility] Post Operative Brief Note ---
Immediate Operative Summary Operative Date Jun 14, 2017. Pre-Operative Diagnosis Avascular Necrosis Right Hip Post-Operative Diagnosis Avascular Necrosis Right Hip Procedure(s) Performed Right Total Anterior Hip Arthroplasty Uncemented Surgeon Dr Teodoro Aguila Eligibility Supervisor Surgeon(s) Ernie Reed PA-C Estimated Blood Loss 200cc Findings Consistent with Post-Op Diagnosis Specimens As Per Surgeon A. Right Femoral Head Anesthesia Type MAC Spinal Regional Complication(s) none Disposition Disposition: Recovery Room / PACU
[2017-06-14] MEDS ORDERED: SOD PHOSPHATE/SOD BIPHOSPHATE ENEMA 132 ML BTL PR PRN (08:45)
[2017-06-14] MEDS ORDERED: GLUCAGON FOR INJ 1 MG VIAL SQ PRN (08:45)
[2017-06-14] MEDS ORDERED: METOCLOPRAMIDE HCL INJ 5 MG/ML 2 ML VIAL IV PRN (08:45)
[2017-06-14] MEDS ORDERED: GLUCOSE 10 TABS/TUBE PO PRN (08:45)
[2017-06-14] MEDS ORDERED: BISACODYL 10 MG SUPP PR PRN (08:45)
[2017-06-14] MEDS ORDERED: MoRPHine SULFATE 2 MG/ML CARP IV PRN (08:45)
[2017-06-14] MEDS ORDERED: MAGNESIUM HYDROXIDE SUSP 30 ML UDC PO PRN (08:45)
[2017-06-14] MEDS ORDERED: DEXTROSE 50% 50 ML SYR IV PRN (08:45)
[2017-06-14] MEDS ORDERED: ALBUTEROL 0.083% NEBU SOLN 3 ML VIAL INH PRN (08:45)
[2017-06-14] MEDS ORDERED: GLUCOSE 40% GEL 15 GM TUBE PO PRN (08:45)
[2017-06-14] MEDS: MULTIVITAMIN TAB PO SCH (09:00)
[2017-06-14] MEDS: CALCIUM 600MG + VIT D 400 IU TAB PO SCH (09:00)
[2017-06-14] MEDS: TIOTROPIUM BROMIDE 5 PUFF/90 MCG INH INH SCH (09:00)
[2017-06-14] MEDS: CYANOCOBALAMIN 500 MCG TAB (VIT B-12) PO SCH (09:00)
[2017-06-14] MEDS: MAGNESIUM OXIDE 400 MG TAB PO SCH (09:00)
[2017-06-14] MEDS: FLUTICASONE PROPIONATE NA SPR 16 GM BTL NAE SCH (09:00)
[2017-06-14] MEDS ORDERED: PHARMACY GLYCEMIC MGMT CONSULT PRN (09:19)
--- NOTE | 2017-06-14 09:30 | DIAGNOSTIC IMAGING REPORT ---
INTRAOPERATIVE RIGHT HIP 2 VIEWS CLINICAL HISTORY: Right hip arthroplasty COMPARISON STUDY: Outside conventional radiographic study performed May 16, 2017 FINDINGS: 2 intraoperative fluoroscopic spot images demonstrate a total right hip arthroplasty. The acetabular cup as visualized in image #1. The acetabular cup and femoral component are visualized in image #2. 34 seconds of fluoroscopic time was utilized. IMPRESSION: Intraoperative fluoroscopic spot images demonstrating a total right hip arthroplasty Electronically signed by: Joshua Sanders M.D. 06/14/2017 9:28 AM Dictated Date/Time: 06/14/2017 9:27 AM
--- NOTE | 2017-06-14 09:38 | Pharmacy Progress Note ---
Glycemic Control Intl Consult Date of Service Jun 14, 2017. Scope Glycemic Pharmacist consulted by Dr Aguila on 06/14/17 for glycemic control and to write orders per [facility] inpatient glycemic control protocol Objective Weight (Kilograms): 71.10 Accuchecks BSG (last 24hrs): Test 06/14/17 05:21 Bedside Glucose 120 mg/dl (70-90) Recent Pertinent Medications Outpatient Anti-diabetic Regimen: * NPH 10 units with prednisone or Cortef * A1c = 6.0 % 04/30/17 Risk Factors for Insulin Resistance: * Steroids: home dose of hydrocortisone 7 mg daily PRACTICE ADVISOR plus hydrocortisone 100 mg IV intraoperatively, 4 mg of dexamethasone topically * Recent Surgery: POD 0 for hip surgery * Diet: T2 DM Assessment & Plan ASSESSMENT: * Mr Valery Pollock is a 56 y/o F with a PMH of bronchiectasis treated with high- dose steroids, HLD, asthma, depression, and well controlled T2 DM that resulted from steroid use for her bronchiectasis. The patient's blood sugar prior to surgery was 120 mg/dL. The patient took her home dose of Cortef 7 mg prior to surgery as well as received some steroids intraoperatively. * This is ample prior date for the patient receiving Solu-Medrol. Hydrocortisone 100 mg IV is equal to 16 mg of methylprednisolone and 4 mg of dexamethasone is equal to 20 mg of methylprednisolone. Previous data indicates that the patient's home dose of NPH 10 units is still affective with aggressive Novolog dosing. * On solu-medrol 40 mg IV daily (more than what the patient received today), the patient tolerated her home NPH dose plus a tight Novolog scale of correction factor of 15 plus carbohydrate ratio of 5. The patient did not receive her NPH today. Therefore scheduled her NPH dose for lunch and then utilized a slightly looser Novolog since the patient was not receiving as much steroids. * There is much uncertainity in how the patient will respond today. There will be close monitoring tonight. At dinner * if patient is over 250 mg/dL, tighten to correction factor of 15 carbohydrate ratio of 5 * if patient is under 150 mg/dL, loosen to correction factor of 25 carbohydrate ratio of 8 * Be careful adding any overnight checks as historically patient has large blood sugar correction from evening to breakfast. PLAN FOR INPATIENT GLYCEMIC CONTROL: * Basal insulin with NPH 10 units SQ daily with breakfast * Correctional Insulin with NOVOLOG per scale ACHS or Q6hrs while NPO * Goal Range: Low 110 mg/dL - High 140 mg/dL * Correction Factor: 20 mg/dL/unit * Nutritional / Prandial insulin per carb ratio of 1 unit per 6 grams CHO consumed OUTPATIENT RECOMMENDATIONS * Ms Pollock has excellent glycemic control. As long as patient does not have hypoglycemia it is reasonable to continue same regimen. Thank you.
--- NOTE | 2017-06-14 09:44 | DIAGNOSTIC IMAGING REPORT ---
SINGLE VIEW PELVIS; SINGLE VIEW RIGHT HIP CLINICAL HISTORY: Postoperative examination. FINDINGS: An AP portable view of the hips and pelvis with a crosstable lateral portable view of the right hip are obtained. A bipolar right hip arthroplasty is in near-anatomic alignment. A single cortical lag screw transfixes the acetabular cup. No acute fracture is identified. There are expected postoperative changes overlying the right hip including skin clips, subcutaneous gas, a surgical drain, and soft tissue swelling. Phlebolith are seen in the pelvis. IMPRESSION: Expected postoperative findings status post right hip arthroplasty. No acute fracture is seen. Electronically signed by: Ja Smith M.D. 06/14/2017 9:43 AM Dictated Date/Time: 06/14/2017 9:42 AM
[2017-06-14] MEDS: SODIUM CHLORIDE 0.9% 1000ML 1,000 ML IV SCH ×2 (11:40→21:26)
--- NOTE | 2017-06-14 11:45 | Anesthesiology Progress Note ---
Anesthesia Post Op Note Date & Time Jun 14, 2017 at 11:44 Vital Signs Pain Intensity: 0.0 Vital Signs Past 12 Hours Date Time Temp Pulse Resp B/P (MAP) Pulse Ox O2 Delivery O2 Flow Rate FiO2 06/14/17 11:40 36.8 81 16 109/70 (83) 96 Nasal Cannula 2.0 06/14/17 11:09 36.7 82 16 126/70 (88) 96 Nasal Cannula 2.0 06/14/17 10:40 94 Nasal Cannula 3.0 06/14/17 10:40 36.5 79 16 96/60 (72) 94 Nasal Cannula 3.0 06/14/17 10:40 Nasal Cannula 3.0 06/14/17 10:10 36.5 71 16 97/54 96 Nasal Cannula 3 06/14/17 10:00 36.5 65 16 92/51 97 Nasal Cannula 3 06/14/17 09:50 36.5 70 18 89/59 100 Nasal Cannula 3 06/14/17 09:40 69 18 90/53 99 Nasal Cannula 3 06/14/17 09:30 68 17 87/50 99 Nasal Cannula 3 06/14/17 09:20 73 18 85/54 98 Nasal Cannula 3 06/14/17 09:10 78 18 85/53 97 Nasal Cannula 3 06/14/17 09:03 36.2 76 20 90/56 97 Nasal Cannula 3 06/14/17 05:45 37 82 22 121/70 95 Room Air Notes Mental Status: alert / awake / arousable, participated in evaluation Pt Amnestic to Procedure: Yes Nausea / Vomiting: adequately controlled Pain: adequately controlled Airway Patency, RR, SpO2: stable & adequate BP & HR: stable & adequate Hydration State: stable & adequate Anesthetic Complications: no major complications apparent
[2017-06-14] MEDS: KETOROLAC TROMETHAMINE 15 MG/ML VIAL IV. SCH ×3 (12:26→23:55)
[2017-06-14] MEDS: INSULIN HUMAN NPH SC SCH (13:18)
[2017-06-14] MEDS: INSULIN ASPART 100 UNITS/ML 3 ML PEN SC SCH ×3 (13:20→21:37)
[2017-06-14] MEDS: ACETAMINOPHEN IV 1,000 MG in EMPTY BAG 0 ML IV SCH ×2 (13:43→21:28)
[2017-06-14] MEDS: HYDROCORTISONE 10 MG TAB PO SCH (15:56)
[2017-06-14] MEDS: CEFAZOLIN IV 1,000 MG in SYRINGE 0 ML IV SCH ×2 (15:58→23:55)
--- NOTE | 2017-06-14 16:27 | Discharge Instructions ---
Discharge Instructions Date of Service Jun 14, 2017. Admission Reason for Admission: Right Hip Degenerative Joint Disease Discharge Discharge Diagnosis / Problem: Right Total Hip Discharge Goals Goal(s): Decrease discomfort, Improve function Activity Recommendations Activity Limitations: as noted below . Instructions / Follow-Up Instructions / Follow-Up Activity and Therapy Recommendations: * If you are using [facility] then Physical Therapy will be provided until they feel you are ready to start Outpatient Physical Therapy. If you are not using a Home Health agency then Outpatient Physical Therapy should start about 3-5 days from your day of surgery. Therapy will last about 3-6 weeks * You were shown a series of exercises in the hospital. Do these exercises three times each day including the exercises you were shown in physical therapy. * Get up and walk several times each day.~ For the first four weeks, try not to stand or walk for more than one hour at a time. If you do stand or walk for more than one hour, you will not hurt anything, but your leg will likely swell.~ ~ * As you feel comfortable, you may change from the walker or crutches to a cane and~then to independent walking. Medications: * Narcotic You will likely be sent home from the hospital with a prescription for the narcotic pain medication that worked best throughout your stay. * Aspirin Most patients will be required to take Aspirin 325mg twice a day for 6 weeks after surgery. This is obtained [id number] and a prescription is not necessary. * Other medications may be prescribed for specific circumstances. If you have any questions, please call the office at . * Resume previous home medications unless otherwise instructed TEDs/Elastic Stockings: The white elastic stockings help limit swelling and prevent blood clots from forming in your legs. The more you wear them, the more they work. Wear them for six weeks. Dressing Care: The VAC dressing will stay on about 8 days. The batteries will wear out and it will lose suction. Remove the VAC dressing and leave the ant open to air or cover with dry dressing. Showering: You may shower with the VAC dressing. Let the shower spray hit the opposite side. Things To Watch For: * Drainage from the incision site that occurs more than one week after your surgery. * Increased redness at the incision site. * Fever above 102 degrees Fahrenheit. * Unusual chest pain or shortness of breath. * Call [facility] at with any of the above problems Follow-Up Visit: Follow-up with Dr. Aguila 2 weeks after your day of surgery. An appointment was probably scheduled when you signed-up for surgery in the office. If you have any questions call Office Instructions: More detailed instructions as well as Frequently Asked Questions were provided in a folder by our office when you signed-up for surgery. Please review these instructions when you get home. If you have any further questions or concerns, please feel free to call the office at [phone] Current Hospital Diet Patient's current hospital diet: Diabetes Type 2 Diet Discharge Diet Recommended Diet: Diabetes Type 2 Diet Procedures Procedures Performed: Right Total Anterior Hip Arthroplasty Uncemented Pending Studies Studies pending at discharge: no Laboratory Results Hemoglobin A1c Test 04/30/17 05:27 Range/Units Estimated Average Glucose 126 mg/dl Hemoglobin A1c 6.0 H 4.5-5.6 % Medical Emergencies . Who to Call and When: Medical Emergencies: If at any time you feel your situation is an emergency, please call 911 immediately. . Non-Emergent Contact Non-Emergency issues call your: Surgeon Call Non-Emergent contact if: wound has increased drainage, wound has increased redness . "Provider Documentation" section prepared by Teodoro Aguila. . VTE Core Measure Inpt VTE Proph given/why not?: Other Anticoagulation (Aspirin 325 twice a day for 6 weeks)
[2017-06-14] MEDS: NITROFURANTOIN MONOHYDRATE 100 MG CAP PO SCH ×2 (16:40→21:25)
--- NOTE | 2017-06-14 18:06 | OPERATIVE REPORT ---
DATE OF OPERATION: 06/14/2017 PREOPERATIVE DIAGNOSIS: Avascular necrosis of the right hip. POSTOPERATIVE DIAGNOSIS: Same. PROCEDURE: Right total hip arthroplasty. SURGEON: Dr. Teodoro Aguila. NEWSPAPER WRITER: Ernie Reed PA-C, whose assistance was necessary for retraction and closure. ANESTHESIA: Spinal. COMPLICATIONS: None. CONDITION: Stable to PACU. IMPLANTS USED: I used a [employer]omet Taperloc total hip arthroplasty system with a size 11 standard stem, a G7 50 mm cup with a single 30 mm screw and an E1 poly liner. INDICATIONS: Valery is a pleasant 56-year-old female who presented to my office with increasing right hip pain. X-ray showed mild arthritis but MRI showed advanced avascular necrosis of the hip. After failing conservative treatment, she elected to undergo total hip arthroplasty. OPERATION AND FINDINGS: On 06/14/2017, she arrived at [facility] for the above procedure. She was seen in the preoperative holding and the operative extremity was identified and signed. She was given a preoperative antibiotic and a spinal anesthetic. She was taken back to the operating room, laid on table in supine position and put under basic sedation. The right hip was brought out to a PURIST leg positioner. The right hip was then prepped and draped in sterile fashion. Timeout was done, and the patient and operative extremity was properly identified. An anterior approach was used. Dissection was taken down through the fascia and the tensor muscle belly was retracted laterally and the rectus was retracted medially. The circumflex vessels were ligated. The capsule was then incised and tagged for later repair. The femoral head was exposed. An oscillating saw was used to resect the femoral neck and the femoral head was removed. The acetabulum was then exposed. Time was spent doing a complete circumferential capsular and labral release. Sequential reaming of the acetabulum up to a size 49 reamer was done. Final reaming was done under fluoroscopy to ensure appropriate version. A size 50 G7 cup was then impacted into place and a 30 mm screw was placed. An E1 poly liner was then snapped into place. The proximal femur was then exposed. Sequential broaching up to a size 11 broach was done. A standard head and neck assembly was applied and the hip was reduced. I was happy with the overall alignment of the implants. The hip was then dislocated. The final size 11 Taperloc stem was impacted into place. A size 36 mm ceramic head was then impacted into place. The hip was reduced and final fluoroscopic images showed anatomic alignment. The surrounding soft tissues were then injected with 100 mL of orthopedic pain control cocktail. The wound was then irrigated with 3 liters of normal saline solution with bacitracin. The capsule was then closed with #1 Vicryl suture. A drain was placed. Fascia was closed with #1 PDS suture. Skin was closed with 2-0 Vicryl and ant. A Prevena VAC dressing was applied. She was then transferred to a hospital bed and taken to postanesthesia care unit in stable condition. She tolerated the procedure well. I attest to the content of the Intraoperative Record and any orders documented therein. Any exception s are noted below.
[2017-06-14] MEDS ORDERED: NURSING VERBAL MED ORDER ONE (18:30)
[2017-06-14] MEDS: DOCUSATE SODIUM 100 MG CAP PO SCH (21:25)
[2017-06-14] MEDS: FERROUS SULFATE 325 MG TAB PO SCH (21:25)
[2017-06-14] MEDS: ASCORBIC ACID 500 MG TAB PO SCH (21:25)
[2017-06-14] MEDS: METOPROLOL TARTRATE 50 MG TAB PO SCH (21:25)
[2017-06-14] MEDS: SENNA 8.6 MG TAB PO SCH (21:25)
[2017-06-14] MEDS: ASPIRIN 325 MG ECTAB PO SCH (21:25)
[2017-06-15] VITALS (7 sets, daily range): BP systolic 95–123; BP diastolic 61–79; PULSE 62–76; TEMP 36.6–36.9; O2SAT 96–98
[2017-06-15] MEDS: OXYCODONE HCL IR 5 MG TAB (IMMEDIATE RELEASE) PO PRN ×4 (04:36→18:27)
[2017-06-15] MEDS: KETOROLAC TROMETHAMINE 15 MG/ML VIAL IV. SCH ×3 (06:06→18:39)
[2017-06-15] MEDS: ACETAMINOPHEN IV 1,000 MG in EMPTY BAG 0 ML IV SCH (06:06)
[2017-06-15 06:12] LABS: BASO % 0.1 %; BASO ABS # 0.01 K/uL (0-0.2); EOS % 0.8 %; EOS ABS # 0.06 K/uL (0-0.5); HEMATOCRIT 28.1 % (37-47); HEMOGLOBIN 8.7 g/dL (12.0-16.0); IG# 0.01 K/uL (0.00-0.02); LYMPH % 14.9 %; LYMPH ABS # 1.12 K/uL (1.2-3.4); MEAN CELL VOLUME 84.1 fL (80-100); MEAN PLATELET VOLUME 8.9 fL (7.4-10.4); NEUT % 76.1 %; NEUT ABS # 5.71 K/uL (1.4-6.5); PLATELET COUNT 150 K/uL (130-400); RED CELL DISTRIBUTION WIDTH CV 16.6 % (11.5-14.5); RED CELL DISTRIBUTION WIDTH SD 51.1 fL (36.4-46.3); WHITE BLOOD COUNT 7.51 K/uL (4.8-10.8)
[2017-06-15 06:48] LABS: CALCIUM 8.5 mg/dl (8.5-10.1); CREATININE 0.61 mg/dl (0.60-1.20); POTASSIUM 4.1 mmol/L (3.5-5.1)
[2017-06-15] MEDS: SODIUM CHLORIDE 0.9% 1000ML 1,000 ML IV SCH (07:23)
--- NOTE | 2017-06-15 07:45 | PROGRESS NOTE ---
DATE: 06/15/2017 CHIEF COMPLAINT: Status post right total hip arthroplasty postop day #1. PROGRESS: Valery was seen and examined at bedside today. Overall, she is doing fairly well. She has very little pain in her hip. She has been up and using the bathroom. She notices some burning on her anterior right thigh. She has no other complaints. PHYSICAL EXAMINATION: The Prevena VAC is to suction and the drain is to suction. She has active dorsiflexion and plantarflexion of the right ankle. Sensation is intact throughout. LABORATORY DATA: She has an H&H today of 8.7 and 28.1. Her glucose is 100 and her sugar levels are being monitored by pharmacy with standing insulin orders. Vital signs are all stable on 2 liters nasal cannula. She is voiding on her own. She has had very minimal drain output. X-RAYS: Radiographs postoperatively of the right hip showed the prosthesis to be in anatomic alignment without any evidence of fracture, dislocation or loosening. IMPRESSION: Status post right total hip arthroplasty postop day #1. PLAN: At this point, she is doing as well as expected. She is on aspirin for DVT prophylaxis. She will be up and ambulating today with physical therapy. Tomorrow morning, the nursing staff can pull the drain and will likely discharge her to home with [facility].
--- NOTE | 2017-06-15 08:06 | Anesthesiology Progress Note ---
Anesthesia Post Op Note Date & Time Jun 15, 2017 at 08:06 Vital Signs Pain Intensity: 0.0 Vital Signs Past 12 Hours Date Time Temp Pulse Resp B/P (MAP) Pulse Ox O2 Delivery O2 Flow Rate FiO2 06/15/17 07:37 36.9 66 15 112/70 (84) 96 Nasal Cannula 2.0 06/15/17 03:50 36.9 68 16 108/67 (81) 97 Nasal Cannula 2.0 06/14/17 23:55 Nasal Cannula 2.0 06/14/17 23:05 36.8 66 18 112/70 (84) 97 Nasal Cannula 2.0 Notes Mental Status: alert / awake / arousable, participated in evaluation Pt Amnestic to Procedure: Yes Nausea / Vomiting: adequately controlled Pain: adequately controlled Airway Patency, RR, SpO2: stable & adequate BP & HR: stable & adequate Hydration State: stable & adequate Anesthetic Complications: no major complications apparent
--- NOTE | 2017-06-15 08:32 | Clinical Documentation Query ---
CLINICAL DOCUMENTATION QUERY QUERY 1 OF 2 56 yo female s/p total right hip arthroplasty shows hgb 11.4 trending down to 8.7. In your clinical opinion is this patient being managed for: ( ) Expected acute blood loss anemia s/p surgical event ( ) Not Agree ( ) Other explanation of clinical findings (Please Explain) ( ) Unable to determine (Please Define) ( ) Need to Discuss The medical record reflects the following clinical findings, treatment, and risk factors. Clinical Indicators: As above Treatment: Type and screen PRBCs, CBCs Risk Factors: Surgical event with 200ml EBL QUERY 2 OF 2 The patient's pre-op urinalysis shows larg leukocyte esterase, 5-10 WBCs, and >30 epithel cells. Microbiology report shows Enterococcus Faecalis organism growth. In your clinical opinion is this patient being managed for: ( ) Urinary tract infection ( ) Not Agree ( ) Other explanation of clinical findings (Please Explain) ( ) Unable to determine (Please Define) ( ) Need to Discuss The medical record reflects the following clinical findings, treatment, and risk factors. Clinical Indicators: As above Treatment: Microbiology, IV hydration Risk Factors: Surgical event, age, female, sedentary Please clarify and document your clinical opinion in the progress notes and discharge summary. Terms such as "probable", "suspected", "likely", "questionable", "possible", or "still to be ruled out" are acceptable. IF IN AGREEMENT, YOU MUST DOCUMENT ABOVE DIAGNOSTIC STATEMENT IN DAILY PROGRESS NOTES AND DISCHARGE SUMMARY. This document is not part of the patient's record. Thank You, More Yadav RN [phone]
[2017-06-15] MEDS: TIOTROPIUM BROMIDE 5 PUFF/90 MCG INH INH SCH (08:40)
[2017-06-15] MEDS: FLUTICASONE PROPIONATE NA SPR 16 GM BTL NAE SCH (08:43)
[2017-06-15] MEDS: CALCIUM 600MG + VIT D 400 IU TAB PO SCH (08:44)
[2017-06-15] MEDS: DOCUSATE SODIUM 100 MG CAP PO SCH ×2 (08:45→21:31)
[2017-06-15] MEDS: ASPIRIN 325 MG ECTAB PO SCH ×2 (08:47→21:32)
[2017-06-15] MEDS: HYDROCORTISONE 10 MG TAB PO SCH (08:47)
[2017-06-15] MEDS: NITROFURANTOIN MONOHYDRATE 100 MG CAP PO SCH ×2 (08:48→21:32)
[2017-06-15] MEDS: METOPROLOL TARTRATE 50 MG TAB PO SCH ×2 (08:48→21:33)
[2017-06-15] MEDS: MAGNESIUM OXIDE 400 MG TAB PO SCH (08:49)
[2017-06-15] MEDS: MULTIVITAMIN TAB PO SCH (08:50)
[2017-06-15] MEDS: PANTOprazole SOD 40 MG TAB PO SCH (08:51)
[2017-06-15] MEDS: SERTRALINE HCL 50 MG TAB PO SCH (08:52)
[2017-06-15] MEDS: CYANOCOBALAMIN 500 MCG TAB (VIT B-12) PO SCH (08:52)
[2017-06-15] MEDS: INSULIN ASPART 100 UNITS/ML 3 ML PEN SC SCH ×4 (09:15→20:37)
[2017-06-15] MEDS: INSULIN HUMAN NPH SC SCH (09:16)
[2017-06-15] MEDS ORDERED: GLUCOSE 40% GEL 15 GM TUBE PO PRN (10:30)
[2017-06-15] MEDS ORDERED: GLUCOSE 10 TABS/TUBE PO PRN (10:30)
[2017-06-15] MEDS ORDERED: GLUCAGON FOR INJ 1 MG VIAL SQ PRN (10:30)
[2017-06-15] MEDS ORDERED: DEXTROSE 50% 50 ML SYR IV PRN (10:30)
[2017-06-15] MEDS: ACETAMINOPHEN 500 MG TAB PO SCH ×2 (13:32→21:33)
[2017-06-15] MEDS: FERROUS SULFATE 325 MG TAB PO SCH (21:32)
[2017-06-15] MEDS: ASCORBIC ACID 500 MG TAB PO SCH (21:32)
[2017-06-15] MEDS: SENNA 8.6 MG TAB PO SCH (21:33)
[2017-06-16] MEDS: KETOROLAC TROMETHAMINE 15 MG/ML VIAL IV. SCH ×2 (00:04→05:42)
[2017-06-16] MEDS: ACETAMINOPHEN 500 MG TAB PO SCH (05:42)
[2017-06-16] MEDS ORDERED: ULT50X PO (06:22)
[2017-06-16] MEDS ORDERED: ASPEC325 PO (06:22)
--- NOTE | 2017-06-16 06:40 | PROGRESS NOTE ---
DATE: 06/16/2017 CHIEF COMPLAINT: Status post right total hip arthroplasty postop day #2. PROGRESS: Valery was seen and examined at bedside today. Overall, she is doing very well. She has been up and ambulating well with physical therapy. She has mild soreness in her hip. She has no complaints. PHYSICAL EXAMINATION: RIGHT HIP: The Prevena VAC dressing is to suction and the drain has been pulled. Her leg lengths are equal. She has active dorsiflexion and plantarflexion of her right ankle. VITAL SIGNS: All stable on 2 liters of nasal cannula and she is voiding on her own. IMPRESSION: Status post right total hip arthroplasty postop day #2. PLAN: At this point, she is doing well. She has been up and ambulating well with physical therapy. Her pain is controlled. She is on aspirin for DVT prophylaxis. We will her discharge to home with [facility] later this morning.
--- NOTE | 2017-06-16 06:45 | DISCHARGE SUMMARY ---
DISCHARGE DIAGNOSES: Avascular necrosis of the right hip. PROCEDURE: Right total hip arthroplasty on 06/14/[address] Teodoro Aguila. DISCHARGE INSTRUCTIONS: 1. Aspirin 325 mg twice a day. 2. PAIGE hose stockings for 6 weeks. 3. Tramadol 50 mg every 6 hours as needed for pain. 4. Tylenol 1000 mg as needed. 5. Albuterol inhaler every 4 hours as needed. 6. Alendronate 70 mg weekly. 7. Ascorbic acid 250 mg at night. 8. Calcium 1 tab daily. 9. Vitamin B12 1000 mcg daily. 10. Ferrous sulfate 325 mg at night. 11. Flonase 50 mcg 2 sprays every morning. 12. Folic acid 1 mg at night. 13. Two-4 liters of home oxygen daily. 14. Hydrocortisone 7.5 mg daily. 15. Ibuprofen 400 mg as needed. 16. Insulin 10 units subQ in the morning. 17. Magnesium 400 mg daily. 18. Lopressor 50 mg twice a day. 19. Daily multivitamin. 20. Nitrofurantoin 1 capsule twice a day. 21. Protonix 40 mg daily. 22. Zoloft 50 mg in the morning. 23. Spiriva 2 puffs in the morning. 24. Monthly immunoglobulin injections. 25. Follow up with Dr. Aguila in 2 weeks. 26. Call the office of Dr. Aguila with any questions or concerns. 27. Remove Prevena VAC dressing 8 days from the day of surgery. HOSPITAL COURSE: Valery is a pleasant 56-year-old female who presented to my office with chronic increasing bilateral hip pain, right greater than left. She is on chronic steroids. MRI and clinical examination were diagnostic for avascular necrosis of the right hip. After failing conservative treatment, she elected to undergo a right total hip arthroplasty. On 06/14/2017 she arrived at [facility] and underwent a right hip replacement without complication. She had a spinal anesthetic. Postoperatively, she was started on aspirin for DVT prophylaxis and discharged to general orthopedic floor. Her hospital course was uneventful. On postop day #1, her H&H was stable at 8.7 and 28.1. She was up and ambulating well with physical therapy and her pain was well controlled. On postop day #2, she continued to do well. Her drain was pulled. She ambulated well with physical therapy. She was subsequently discharged to home with [facility] and the above instructions.
[2017-06-16 06:50] VITALS: BP 96/59; PULSE 60; TEMP 36.7; O2SAT 96
[2017-06-16 07:15] VITALS: BP 110/74; PULSE 68
[2017-06-16] MEDS: MAGNESIUM OXIDE 400 MG TAB PO SCH (07:24)
[2017-06-16] MEDS: OXYCODONE HCL IR 5 MG TAB (IMMEDIATE RELEASE) PO PRN (07:24)
[2017-06-16] MEDS: HYDROCORTISONE 10 MG TAB PO SCH (07:25)
[2017-06-16] MEDS: CALCIUM 600MG + VIT D 400 IU TAB PO SCH (07:25)
[2017-06-16] MEDS: SERTRALINE HCL 50 MG TAB PO SCH (07:26)
[2017-06-16] MEDS: PANTOprazole SOD 40 MG TAB PO SCH (07:26)
[2017-06-16] MEDS: MULTIVITAMIN TAB PO SCH (07:26)
[2017-06-16] MEDS: ASPIRIN 325 MG ECTAB PO SCH (07:26)
[2017-06-16] MEDS: TIOTROPIUM BROMIDE 5 PUFF/90 MCG INH INH SCH (07:27)
[2017-06-16] MEDS: DOCUSATE SODIUM 100 MG CAP PO SCH (07:27)
[2017-06-16] MEDS: CYANOCOBALAMIN 500 MCG TAB (VIT B-12) PO SCH (07:27)
[2017-06-16] MEDS: FLUTICASONE PROPIONATE NA SPR 16 GM BTL NAE SCH (07:27)
[2017-06-16] MEDS: NITROFURANTOIN MONOHYDRATE 100 MG CAP PO SCH (07:27)
[2017-06-16] MEDS: INSULIN ASPART 100 UNITS/ML 3 ML PEN SC SCH (07:38)
[2017-06-16] MEDS: METOPROLOL TARTRATE 50 MG TAB PO SCH (07:39)
[2017-06-16] MEDS: INSULIN HUMAN NPH SC SCH (07:39)
[2017-06-16 10:59] VITALS: BP 110/74; PULSE 68; TEMP 36.7; O2SAT 96
== END 2017-06-16 12:05 | disposition home health service (06) | DRG 470 ==
LOC: C.ACU 04:59 → C.3E 06:40 → ENRESERV 09:27 → CANBEDREQ 11:12
PROVIDERS: ADMIT Orthopaedic Surgery; ATTEND Orthopaedic Surgery
PROC: 0SR902A Replacement of Right Hip Joint with Metal on Polyethylene Synthetic Substitute, Uncemented, Open Approach (ICD-10-PCS; principal; 2017-06-14 07:00)
DX: M87.051 Idiopathic aseptic necrosis of right femur (principal); E11.9 Type 2 diabetes mellitus without complications; E78.5 Hyperlipidemia, unspecified; F32.9 Major depressive disorder, single episode, unspecified; J45.909 Unspecified asthma, uncomplicated; Z79.4 Long term (current) use of insulin; Z79.52 Long term (current) use of systemic steroids; Z79.82 Long term (current) use of aspirin; Z79.899 Other long term (current) drug therapy; Z88.8 Allergy status to other drugs, medicaments and biological substances; Z83.3 Family history of diabetes mellitus

== ENCOUNTER 2017-06-27 23:47 | Inpatient (IN) | payer OTHER ==
[~2017-06-27] VITALS: Ht 160 cm; Wt 72.4 kg
[~2017-06-27 23:47] MED LIST changes: +ASPEC325 PO; -ASPI81TA28 PO; -METOPROLOL TARTRATE 1 MG/ML VIAL ONE; -MIDAZOLAM HCL 1 MG/ML 2ML VIAL ONE; +NITR1CAP32 PO; -PRED20TA PO; +ULT50X PO
[2017-06-28] VITALS (12 sets, daily range): BP systolic 113–128; BP diastolic 72–81; PULSE 72–94; TEMP 36.8–37.2; O2SAT 92–98; Ht 160 cm; Wt 72.4 kg
[2017-06-28] MEDS ORDERED: ALBUT/IPRATROP 3MG/0.5MG NEB 3 ML VIAL INH STA (00:15)
[2017-06-28] MEDS ORDERED: OPTIRAY 320 IV PRN (00:30)
[2017-06-28 00:43] LABS: BASO % 0.5 %; BASO ABS # 0.04 K/uL (0-0.2); EOS % 5.6 %; EOS ABS # 0.47 K/uL (0-0.5); HEMATOCRIT 27.4 % (37-47); HEMOGLOBIN 8.3 g/dL (12.0-16.0); IG# 0.02 K/uL (0.00-0.02); LYMPH % 12.8 %; LYMPH ABS # 1.08 K/uL (1.2-3.4); MEAN CELL VOLUME 87.3 fL (80-100); MEAN CORPUSCULAR HEMOGLOBIN 26.4 pg (25-34); MEAN CORPUSCULAR HGB CONC 30.3 g/dl (32-36); MEAN PLATELET VOLUME 8.8 fL (7.4-10.4); MONO % 6.3 %; MONO ABS # 0.53 K/uL (0.11-0.59); NEUT % 74.6 %; NEUT ABS # 6.27 K/uL (1.4-6.5); PLATELET COUNT 198 K/uL (130-400); RED CELL DISTRIBUTION WIDTH CV 16.8 % (11.5-14.5); RED CELL DISTRIBUTION WIDTH SD 53.7 fL (36.4-46.3); WHITE BLOOD COUNT 8.41 K/uL (4.8-10.8)
--- NOTE | 2017-06-28 00:58 | EMERGENCY ROOM VISIT NOTE ---
History Report prepared by Alvaro: Gualberto Herrera Under the Supervision of: Dr. Emelia Rao D.O. First contact with patient: 23:54 Chief Complaint: RESPIRATORY PROBLEMS Stated Complaint: TROUBLE BREATHING,UPSET STOMACH,INCREASED HR,O2 DO History of Present Illness The patient is a 56 year old female who presents to the Emergency Room with complaints of persistent general shortness of breath since this evening. She has a history of severe bronchiectasis. She states that she normally wears 2 to 4 L of oxygen via NC all the time, though she has been on 5L today. She states that she walked to the bathroom and her oxygen saturation dropped to 68% while she was on her oxygen. The patient reports that she recently had a right total hip replacement. She states that her right leg has been swollen since the surgery. She denies any swelling to her left leg. She notes that she regularly attends physical therapy. She was prescribed Tramadol for the pain. She states that she was feeling great three days ago and she was exercising without issue. She states that her Tramadol was lowered from 50 mg to 25 mg. She states that she started to feel bad yesterday and her shortness of breath was worsening. She notes that exertion worsens her breathing. She reports feeling nauseated. Per family, the patient also became more short of breath with a shoulder surgery in the past. She notes increased tiredness. She denies any changes to her cough, though since her surgery she has not coughed as much. She denies any fevers, vomiting, diarrhea, rashes, chest pain, chest tightness, or urinary symptoms. She denies any runny nose, stuffy nose, or sore throat. She notes her appetite is normal and she is keeping up with her fluids. She has a history of ASD. She is currently taking blood thinners. She states that she was taking Prednisone, though her medication was changed to hydrocortisone. Source of History: patient Onset: since this evening Position: other (general ) Quality: other (shortness of breath) Timing: other (persistent) Modifying Factors (Worsening): exertion Associated Symptoms: + cough, + nausea, No fevers, No sorethroat, No chest pain, No vomiting, No diarrhea, No urinary symptoms, No rash Note: She notes right leg swelling. She notes increased tiredness. She denies any left leg swelling, runny nose, stuffy nose, or chest tightness. Review of Systems See HPI for pertinent positives & negatives. A total of 10 systems reviewed and were otherwise negative. 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 (19) Tachycardia Surgical Problems: (1) H/O atrial septal defect repair (2) H/O: hysterectomy (3) History of hysterectomy (4) History of myringotomy (5) Hx of appendectomy (6) Hx of cholecystectomy (7) Hx of tympanostomy tubes (8) S/P bronchoscopy (9) S/P section (10) S/P sinus surgery (11) S/P tonsillectomy and adenoidectomy Family History Asthma SISTER Cancer SISTER FATHER MOTHER Diabetes mellitus Gallbladder disease Heart disease Hypertension FATHER Kidney disease Kidney stones Lung disease Social History Smoking Status: Never Smoker Smokeless Tobacco Use: No Alcohol Use: none Drug Use: none Marital Status: single Housing Status: lives with family Occupation Status: unemployed, other Current/Historical Medications Scheduled Acetaminophen (Tylenol), 1,000 MG PO PRN Alendronate Sodium (Alendronate Sodium), 70 MG PO Ascorbic Acid (Ascorbic Acid), 250 MG PO HS Aspirin (Aspirin), 325 MG PO BID Calcium Carbonate-Vitamin D W/ (Caltrate 600 Plus), 1 TAB PO QAM Cyanocobalamin (Vitamin B12), 1,000 MCG PO QAM Ferrous Sulfate (Ferrous Sulfate), 325 MG PO HS Fluticasone Propionate (Nasal) (Flonase Allergy Relief), 2 SPRY ESPERANZA QAM Folic Acid (Folic Acid), 1 MG PO HS Home O2 Therapy (Oxygen), 2-4 LITERS NA DAILY Hydrocortisone (Cortef), 7.5 MG PO QAM Ibuprofen (Advil), 400 MG PO PRN Insulin Human NPH (Novolin N), 10 UNITS SQ QAM Magnesium Oxide (Mg Supplement (Magnesium), 400 MG PO QAM Metoprolol Tartrate (Lopressor) (Lopressor), 50 MG PO BID Multiple Vitamin (Multivitamin), 1 TAB PO QAM Pantoprazole (Protonix), 40 MG PO QAM Sertraline (Zoloft), 50 MG PO QAM Tiotropium Cornell (Spiriva Respimat), 2 PUFF INH QAM Tramadol (Ultram), 25 MG PO Q6 [Immunoglobulin], 1 DOSE INJ MONTHLY Scheduled PRN Albuterol Sulf (Albuterol Sulfate), 1 DOSE INH Q4H PRN for Shortness of Breath Allergies Coded Allergies: Oxycodone (Verified Allergy, Mild, 0, 06/28/17) depression Albuterol (Verified Adverse Reaction, Mild, CHEST PAIN, LEVALBUTEROL OK, ) PT STATES "IF TAKE TOO MUCH DEVELOPS CHEST PAIN". TOLERATE LEVALBUTEROL 04/201506/14/17 - Patient reports that she does take albuterol at home, just not too frequently. Physical Exam Vital Signs Date Time Temp Pulse Resp B/P (MAP) Pulse Ox O2 Delivery O2 Flow Rate FiO2 06/28/17 02:56 22 93 Nasal Cannula 5.0 06/28/17 02:47 112 29 78 Nasal Cannula 5.0 06/28/17 02:28 76 16 118/74 100 Nasal Cannula 4.0 06/28/17 00:32 83 18 180/85 100 Nasal Cannula 5.0 06/28/17 00:05 93 Nasal Cannula 6.0 06/28/17 00:04 90 06/28/17 00:01 93 Nasal Cannula 6.0 06/28/17 00:00 93 Nasal Cannula 6.0 06/27/17 23:50 36.8 87 20 121/76 97 Nasal Cannula 5.0 Physical Exam GENERAL: alert, well appearing, well nourished, no distress, non-toxic EYE EXAM: normal conjunctiva, PERRL and EOM's grossly intact OROPHARYNX: no exudate, no erythema, lips, buccal mucosa, and tongue normal and mucous membranes are moist NECK: supple, no nuchal rigidity, no adenopathy, non-tender LUNGS: Coarse breath sounds bilaterally, no wheezes or rales. Normal chest wall mechanics HEART: no murmurs, S1 normal and S2 normal ABDOMEN: abdomen soft, non-tender, normo-active bowel sounds, no masses, no rebound or guarding. BACK: Back is symmetrical on inspection and there is no deformity, no midline tenderness, no CVA tenderness. SKIN: no rashes and no bruising UPPER EXTREMITIES: upper extremities are grossly normal. LOWER EXTREMITIES: Bilateral LE edema, right greater than left. healing vertical incisions to the lateral right hip, steri-strips in place; no drainage , no surrounding erythema, no odor and appears to healing appropriately. NEURO EXAM: Normal sensorium, cranial nerves II-XII grossly intact, normal speech, no gross weakness of arms, no gross weakness of legs. Medical Decision & Procedures ER Provider Diagnostic Interpretation: Radiology results have been interpreted by the radiologist and reviewed by me. CTA CHEST: COMPARISON: 04/19/17. IMPRESSION: No evidence of pulmonary embolus. Mild enlargement of the main pulmonary artery may suggest underlying pulmonary hypertension. No evidence of aortic dissection. No significant change in mediastinal adenopathy. Extensive bilateral bronchiectasis with scattered nodular opacities. Not significantly changed from prior. Prior cholecystectomy. Right Port-A-Cath terminates in the SVC. Radiologist: Lucas Quesada DO Study ready at 01:49 and initial results transmitted at 01:58 R VENOUS DOPP LOWER EXT UNILAT CLINICAL HISTORY: edema, s/p surgery pain. Edema. TECHNIQUE: Venous Doppler COMPARISON STUDY: None FINDINGS: Normal venous Doppler right leg. This flow is unremarkable. Compressibility and augmentation characteristics are normal. IMPRESSION: Normal study The above report was generated using voice recognition software. It may contain grammatical, syntax or spelling errors. Electronically signed by: Santosh Diaz M.D. 06/28/2017 6:47 AM Dictated Date/Time: 06/28/2017 6:46 AM Laboratory Results Test 06/28/17 00:15 06/28/17 00:25 Influenza Type A Antigen Neg for Influ A (NEG) Influenza Type B Antigen Neg for Influ B (NEG) Hypochromasia PRESENT Prothrombin Time 10.1 SECONDS (9.0-12.0) Prothromb Time International Ratio 1.0 (0.9-1.1) Activated Partial Thromboplast Time 37.8 SECONDS (21.0-31.0) Partial Thromboplastin Ratio 1.5 Magnesium Level 2.0 mg/dl (1.8-2.4) Total Bilirubin 0.3 mg/dl (0.2-1) Aspartate Amino Transf (AST/SGOT) 10 U/L (15-37) Alanine Aminotransferase (ALT/SGPT) 12 U/L (12-78) Alkaline Phosphatase 78 U/L (45-117) Pro-B-Type Natriuretic Peptide 1971 pg/ml (0-900) Total Protein 7.2 gm/dl (6.4-8.2) Albumin 2.8 gm/dl (3.4-5.0) Globulin 4.4 gm/dl (2.5-4.0) Albumin/Globulin Ratio 0.6 (0.9-2) Lipase 98 U/L (73-393) Thyroid Stimulating Hormone (TSH) 1.850 uIu/ml (0.300-4.500) Laboratory results per my review. Medications Administered Medications (Trade) Dose Ordered Sig/Man Route Start Time Stop Time Status Last Admin Dose Admin Albuterol/ Ipratropium (Duoneb) 3 ml NOW STAT INH 06/28/17 00:15 06/28/17 00:18 DC 06/28/17 00:15 3 ML Furosemide (Lasix Inj) 40 mg NOW STAT IV 06/28/17 02:20 06/28/17 02:21 DC 06/28/17 02:27 40 MG ECG Per My Interpretation Indication: SOB/dyspnea Rate (beats per minute): 73 Rhythm: sinus rhythm Findings: no acute ischemic change, no ectopy, other (Normal axis. Normal intervals. Low voltage throughout. ) ED Course 2358: The patient was evaluated in room A3. A complete history and physical exam was performed. 0015: Ordered DuoNeb 3 ml INH 0212: I reassessed the patient at this time. She states that she feels fine as long as she is still. I discussed the results with the patient. 0219: Review of EMR: echo performed in May 2015 shows an EF 60-65%. Normal LV and RV size and function. 0220: Ordered Lasix 40 mg IV 0312: I spoke with Dr. Silverio, [facility] hospitalist. We discussed the patient' s case. The [facility] for further [facility]. Medical Decision Differential diagnoses includes but is not limited to pneumonia, bronchitis, COPD/Asthma exacerbation, pneumothorax, pulmonary embolism, congestive heart failure, acute coronary syndrome Pt here with worsening TOTH and lower oxygen sats despite normal home oxygen. Pt with recent surgery. No worsening cough or fevers. Mildly increased RLE swelling on same side as surgery recently. Incision well appearing, no evidence of infection. CTA chest negative for acute pathology. Concern for mildly elevated BNP, prior echo with good EF, evidence of possible pulm htn. Pt with longstanding bronchiectasis, likely any slight change in pulm/cardiac status worsening her resp condition. Exam not consistent with CHF or acute pulm edema. Given lower extr edema and elevated BNP, given dose of lasix. Nebs given also, pt already taking steroids per pulmonology. Pt in no distress while at rest, but significant distress with any movement. Pt aware of all results and agreeable with plan. Discussed case with orthopaedic hospitalist for additional evaluation and treatment. Medication Reconcilliation Current Medication List: was personally reviewed by me Blood Pressure Screening Patient's blood pressure: Normal blood pressure Consults Time Called: 0303 Consulting Physician: Dr. Silverio, [facility] Returned Call: [address] Silverio, [facility]. We discussed the patient's case. The patient will be evaluated by [facility] for further management. Impression Primary Impression: Dyspnea Additional Impressions: Hypoxia Bronchiectasis Elevated brain natriuretic peptide (BNP) level Anemia Scribe Attestation The scribe's documentation has been prepared under my direction and personally reviewed by me in its entirety. I confirm that the note above accurately reflects all work, treatment, procedures, and medical decision making performed by me. Departure Information Dispostion Being Evaluated By Hospitalist Referrals Ivonne Subramanian (PCP) Patient Instructions My [facility] Problem Qualifiers Primary Impression: Dyspnea Dyspnea type: dyspnea on exertion Qualified Codes: R06.09 - Other forms of dyspnea Additional Impressions: Bronchiectasis Bronchiectasis type: with acute exacerbation Qualified Codes: J47.1 - Bronchiectasis with (acute) exacerbation Anemia Anemia type: unspecified type Qualified Codes: D64.9 - Anemia, unspecified
[2017-06-28 01:01] LABS: ALBUMIN 2.8 gm/dl (3.4-5.0); ALT/SGPT 12 U/L (12-78); AST/SGOT 10 U/L (15-37); BLOOD UREA NITROGEN 9 mg/dl (7-18); CALCIUM 8.7 mg/dl (8.5-10.1); CARBON DIOXIDE 35 mmol/L (21-32); CREATININE 0.56 mg/dl (0.60-1.20); GLUCOSE 114 mg/dl (70-99); POTASSIUM 4.4 mmol/L (3.5-5.1); SODIUM 136 mmol/L (136-145)
[2017-06-28 01:06] LABS: INFLUENZA B ANTIGEN Neg for Influ B (NEG)
[2017-06-28 01:06] LABS: ALKALINE PHOSPHATASE 78 U/L (45-117); TOTAL PROTEIN 7.2 gm/dl (6.4-8.2)
[2017-06-28] MEDS ORDERED: TRAM-10 PO (01:52)
[2017-06-28] MEDS ORDERED: FUROSEMIDE 40 MG/4 ML VIAL IV STA (02:20)
[2017-06-28 03:39] LABS: PTT PATIENT 37.8 SECONDS (21.0-31.0)
[2017-06-28] MEDS ORDERED: LEVALBUTEROL/IPRATROPIUM NEB INH STA (04:29)
[2017-06-28] MEDS ORDERED: INSULIN ASPART 100 UNITS/ML 3 ML PEN SC ONE (04:29)
[2017-06-28] MEDS ORDERED: LEVALBUTEROL/IPRATROPIUM NEB INH PRN (04:30)
[2017-06-28] MEDS ORDERED: ACETAMINOPHEN 325 MG TAB PO PRN (04:30)
[2017-06-28] MEDS ORDERED: HYDROmorphone INJ 0.5 MG/0.5 ML SYR IV PRN (04:30)
[2017-06-28] MEDS ORDERED: GLUCOSE 10 TABS/TUBE PO PRN (04:30)
[2017-06-28] MEDS ORDERED: NITROGLYCERIN 0.4 MG SL PER TAB CHARGE SL PRN (04:30)
[2017-06-28] MEDS ORDERED: GLUCAGON FOR INJ 1 MG VIAL SQ PRN (04:30)
[2017-06-28] MEDS ORDERED: GLUCOSE 40% GEL 15 GM TUBE PO PRN (04:30)
[2017-06-28] MEDS ORDERED: PROCHLORPERAZINE INJ 5 MG in SYRINGE 4 ML IV PRN (04:30)
[2017-06-28] MEDS ORDERED: DEXTROSE 50% 50 ML SYR IV PRN (04:30)
[2017-06-28] MEDS ORDERED: TRAMADOL HCL 50 MG TAB PO PRN (04:30)
[2017-06-28 04:50] LABS: LIPASE 98 U/L (73-393)
[2017-06-28] MEDS ORDERED: LEVALBUTEROL 1.25MG/0.5ML NEB INH STA (05:18)
[2017-06-28] MEDS ORDERED: IPRATROPIUM BROMIDE NEB SOLN 0.02% 2.5 ML VIAL INH STA (05:18)
[2017-06-28] MEDS ORDERED: LEVALBUTEROL 1.25MG/0.5ML NEB INH PRN (05:30)
[2017-06-28] MEDS ORDERED: IPRATROPIUM BROMIDE NEB SOLN 0.02% 2.5 ML VIAL INH PRN (05:30)
[2017-06-28] MEDS ORDERED: INSULIN ASPART 100 UNITS/ML 3 ML PEN SC STA (06:31)
--- NOTE | 2017-06-28 06:48 | DIAGNOSTIC IMAGING REPORT ---
R VENOUS DOPP LOWER EXT UNILAT CLINICAL HISTORY: edema, s/p surgery pain. Edema. TECHNIQUE: Venous Doppler COMPARISON STUDY: None FINDINGS: Normal venous Doppler right leg. This flow is unremarkable. Compressibility and augmentation characteristics are normal. IMPRESSION: Normal study The above report was generated using voice recognition software. It may contain grammatical, syntax or spelling errors. Electronically signed by: Santosh Diaz M.D. 06/28/2017 6:47 AM Dictated Date/Time: 06/28/2017 6:46 AM
--- NOTE | 2017-06-28 07:12 | DIAGNOSTIC IMAGING REPORT ---
(CHEST FOR PE) ANGIO WITH CT DOSE: 419.50 mGy.cm HISTORY: Chest pain dyspnea TECHNIQUE: Multiaxial CT images of the chest were performed following the intravenous administration of contrast to evaluate the pulmonary arteries. Maximal intensity projection images were also obtained. A dose lowering technique was utilized adhering to the principles of ALARA. COMPARISON STUDY: 04/29/2017 FINDINGS: There is a normal caliber thoracic aorta with no evidence for dissection. There is no evidence for pulmonary embolus. No pleural effusions. No pneumothorax. The liver and spleen are unremarkable. Diffuse bronchiectatic change with a superimposed peribronchial thickening. Buckle findings appear to be similar. Small region of progression superior segment right lower lobe and posterior aspect right pulmonary apex. Minimal progression left pulmonary apex. Stable mediastinal and hilar adenopathy. IMPRESSION: 1. No evidence for pulmonary embolus. 2. Diffuse bronchiectatic/emphysematous change with superimposed slightly progressive infiltrative and peribronchial thickening change. The above report was generated using voice recognition software. It may contain grammatical, syntax or spelling errors. Electronically signed by: Santosh Diaz M.D. 06/28/2017 7:10 AM Dictated Date/Time: 06/28/2017 7:06 AM
--- NOTE | 2017-06-28 07:33 | DIAGNOSTIC IMAGING REPORT ---
ABDOMEN AND PELVIS CT WITHOUT CONTRAST CT DOSE: 407.92 mGy.cm HISTORY: Acute right mid abdominal pain R abd pain TECHNIQUE: Multiaxial CT images of the abdomen and pelvis were performed without contrast. A dose lowering technique was utilized adhering to the principles of ALARA. COMPARISON STUDY: CTA of the chest 06/28/2017, CT abdomen and pelvis 05/24/2016, pelvis and right hip radiographs 05/16/2017, pelvis right hip radiographs 06/14/2017. FINDINGS: Redemonstration of extensive bilateral partially imaged bronchiectasis with bronchial wall thickening, mosaic attenuation and innumerable tree-in-bud and centrilobular nodularity. Ossifications of the basal right lower lobe are noted. No pneumatosis or pneumoperitoneum. Imaged inferior cardiac chambers are unremarkable. Prior cholecystectomy. Evaluation of the solid abdominal organs is limited without the use of IV contrast. The liver, spleen, pancreas and adrenal glands are within normal limits. Mild excreted contrast the bilateral renal collecting systems from recent contrast-enhanced study. 7 mm low attenuating lesion of the anterior interpolar right kidney is incompletely characterized however suggests renal cyst. No definite renal calculi or obstructive uropathy. Contrast is also noted within the bladder is partially decompressed with mild wall thickening. Prior hysterectomy. No adnexal mass lesions identified. Atherosclerosis of the aorta without aneurysm. No bulky adenopathy. There is no bowel obstruction or focal bowel wall thickening. Minimal colonic diverticulosis without diverticulitis. Normal appendix. Mild nonspecific subcutaneous stranding about the bilateral upper thighs. Bones appear intact. Severe facet arthrosis of the lower lumbar spine. Grade 1 anterolisthesis L4 on L5, likely secondary to long-standing facet disease. Severe multilevel intervertebral disc space narrowing. Right hip arthroplasty with satisfactory alignment. There is however an acute appearing nondisplaced fracture involving the superior posterior acetabulum adjacent to the acetabular hardware, nicely seen on images 321 through 333 of series 3. IMPRESSION: 1. Right hip arthroplasty in satisfactory alignment. Acute appearing nondisplaced fracture involves the superior posterior acetabulum. Mild subcutaneous edema about the right hip. 2. No acute intra-abdominal or intrapelvic abnormality identified. 3. Prior cholecystectomy and hysterectomy. 4. Bibasilar bronchiectasis with associated bronchial wall thickening, extensive tree-in-bud and centrilobular nodules suggesting infectious or inflammatory bronchiolitis with associated air trapping redemonstrated. 5. Additional findings as above. Electronically signed by: Lobo Yoo M.D. 06/28/2017 7:31 AM Dictated Date/Time: 06/28/2017 7:20 AM
[2017-06-28] MEDS: SERTRALINE HCL 50 MG TAB PO SCH (07:48)
[2017-06-28] MEDS: MULTIVITAMIN TAB PO SCH (07:48)
[2017-06-28] MEDS: METOPROLOL TARTRATE 50 MG TAB PO SCH ×2 (07:48→19:55)
[2017-06-28] MEDS: PANTOprazole SOD 40 MG TAB PO SCH (07:49)
[2017-06-28 08:07] LABS: RETIC COUNT % 2.1 % (0.5-2.0)
[2017-06-28 08:55] LABS: TRANSFERRIN 159 mg/dl (200-360)
[2017-06-28] MEDS ORDERED: FUROSEMIDE INJ 40 MG in SYRINGE 0 ML IV SCH (09:00)
[2017-06-28] MEDS ORDERED: HYDROCORTISONE 10 MG TAB PO SCH (09:00)
[2017-06-28] MEDS ORDERED: LEVALBUTEROL/IPRATROPIUM NEB INH SCH (09:00)
[2017-06-28] MEDS: LEVALBUTEROL 1.25MG/0.5ML NEB INH SCH ×3 (09:02→19:50)
[2017-06-28] MEDS: IPRATROPIUM BROMIDE NEB SOLN 0.02% 2.5 ML VIAL INH SCH ×3 (09:02→19:50)
--- NOTE | 2017-06-28 09:50 | ECHOCARDIOGRAM REPORT ---
*NOTICE TO RECEIVING DEMOCRAT AGENCY This information is strictly Confidential and protected under [place] law. [place] law prohibits you from making any further disclosure of this information unless further disclosure is expressly permitted by the written consent of the person to whom it pertains or is authorized by law. A general authorization for the release of medical or other information is not sufficient for this purpose. Hospital accepts no responsibility if the information is made available to any other person, INCLUDING THE PATIENT. Interpretation Summary * Name: FRANK LAN Study Date: 06/28/2017 06:12 AM BP: 121/80 mmHg * Patient Location: [facility] HR: 84 * : 1960 (M/d/yyyy) Gender: Female Height: 63 in * Age: 56 yrs Ethnicity: [place] Weight: 158 lb * Ordering Physician: Devaughn Silverio * Referring Physician: Self, Referred * Performed By: Carrol Yen RCS * * Reason For Study: CHF * BSA: 1.7 m2 * The study was technically adequate. * Compared to prior study, changes are noted. * -- Conclusions -- * Left ventricular systolic function is normal. * Ejection Fraction = 65-70%. * There is mild concentric left ventricular hypertrophy. * Septal motion is consistent with post-operative state. * Mild aortic regurgitation. * There is trace mitral regurgitation. * There is mild tricuspid regurgitation. * The estimated systolic pulmonary arterial pressure is 44 mmHg. * Pulse wave TDI of the anterior and posterior mitral annulas demonstrates normal LV relaxation Procedure Details * A complete two-dimensional transthoracic echocardiogram was performed (2D, M-mode, Doppler and color flow Doppler). Left Ventricle * The left ventricle is normal in size. * There is no thrombus. * There is mild concentric left ventricular hypertrophy. * Left ventricular systolic function is normal. * Ejection Fraction = 65-70%. * Septal motion is consistent with post-operative state. Right Ventricle * The right ventricle is normal size. * The right ventricular systolic function is normal as assessed by tricuspid annular plane systolic excursion (TAPSE) (normal >1.5 cm). Atria * The left atrial size is normal. * Right atrial size is normal. * There is no evidence of atrial septal defect, but resolution does not allow assessment for a patent foramen ovale. Mitral Valve * The mitral valve is normal. * There is no mitral valve stenosis. * There is trace mitral regurgitation. Tricuspid Valve * The tricuspid valve is normal. * There is no tricuspid stenosis. * There is mild tricuspid regurgitation. * The estimated systolic pulmonary arterial pressure is 44 mmHg. Aortic Valve * The aortic valve is trileaflet. * Aortic stenosis is absent. * Mild aortic regurgitation. Pulmonic Valve * The pulmonary valve is inadequately visualized, but the Doppler data is adequate for interpretation. * There is no pulmonic valvular stenosis. * Mild pulmonic valvular regurgitation. Great Vessels * The aortic root and proximal ascending aorta are normal sized. * The pulmonary is not well visualized. Pericardium/Pleural * There is no pericardial effusion. Great Vessels * Normal inferior vena cava diameter and respiratory variation suggests normal central venous pressure. Left Ventricular Diastolic Function * Pulse wave TDI of the anterior and posterior mitral annulas demonstrates normal LV relaxation MMode 2D Measurements and Calculations IVSd 1.2 cm IVSs 1.9 cm LVIDd 4.2 cm LVIDs 2.4 cm LVPWd 1.0 cm LVPWs 1.3 cm IVS/LVPW 1.2 FS 42.2 % EDV(Teich) 79.0 ml ESV(Teich) 20.9 ml EF(Teich) 73.6 % EDV(cubed) 74.6 ml ESV(cubed) 14.4 ml EF(cubed) 80.7 % % IVS thick 61.7 % % LVPW thick 26.1 % LV mass(C)d 157.5 grams LV mass(C)dI 90.0 grams/m\S\2 LV mass(C)s 137.1 grams LV mass(C)sI 78.4 grams/m\S\2 SV(Teich) 58.1 ml SI(Teich) 33.2 ml/m\S\2 SV(cubed) 60.2 ml SI(cubed) 34.4 ml/m\S\2 Ao root diam 2.7 cm Ao root area 5.6 cm\S\2 ACS 1.9 cm LA dimension 3.7 cm LA/Ao 1.4 LVOT diam 2.0 cm LVOT area 3.2 cm\S\2 LVAd ap4 26.7 cm\S\2 LVLd ap4 7.0 cm EDV(MOD-sp4) 85.9 ml EDV(sp4-el) 87.1 ml LVAs ap4 14.6 cm\S\2 LVLs ap4 6.0 cm ESV(MOD-sp4) 30.0 ml ESV(sp4-el) 30.1 ml EF(MOD-sp4) 65.0 % EF(sp4-el) 65.5 % LVAd ap2 30.0 cm\S\2 LVLd ap2 7.3 cm EDV(MOD-sp2) 103.5 ml EDV(sp2-el) 104.6 ml LVAs ap2 18.6 cm\S\2 LVLs ap2 6.0 cm ESV(MOD-sp2) 49.3 ml ESV(sp2-el) 48.7 ml EF(MOD-sp2) 52.4 % EF(sp2-el) 53.4 % LVLd %diff 4.9 % EDV(MOD-bp) 94.1 ml LVLs %diff -0.49 % ESV(MOD-bp) 38.4 ml EF(MOD-bp) 59.2 % SV(MOD-sp4) 55.8 ml SI(MOD-sp4) 31.9 ml/m\S\2 SV(MOD-sp2) 54.3 ml SI(MOD-sp2) 31.0 ml/m\S\2 SV(MOD-bp) 55.7 ml SI(MOD-bp) 31.8 ml/m\S\2 SV(sp4-el) 57.0 ml SI(sp4-el) 32.6 ml/m\S\2 SV(sp2-el) 55.9 ml SI(sp2-el) 31.9 ml/m\S\2 Doppler Measurements and Calculations MV E max miguel 92.2 cm/sec MV A max miguel 78.2 cm/sec MV E/A 1.2 MV P1/2t max miguel 115.6 cm/sec MV P1/2t 76.8 msec MVA(P1/2t) 2.9 cm\S\2 MV dec slope 440.8 cm/sec\S\2 MV dec time 0.21 sec Ao V2 max 175.3 cm/sec Ao max PG 12.3 mmHg Ao max PG (full) 5.5 mmHg OLGA(V,A) 2.3 cm\S\2 OLGA(V,D) 2.3 cm\S\2 AI max miguel 449.4 cm/sec AI max PG 80.8 mmHg AI dec slope 303.0 cm/sec\S\2 AI P1/2t 434.5 msec LV V1 max PG 6.8 mmHg LV V1 max 130.0 cm/sec PA V2 max 88.8 cm/sec PA max PG 3.2 mmHg TR max imguel 314.7 cm/sec
[2017-06-28] MEDS: FLUTICASONE PROPIONATE NA SPR 16 GM BTL NAE SCH (10:00)
[2017-06-28] MEDS: INSULIN ASPART 100 UNITS/ML 3 ML PEN SC SCH ×3 (11:00→20:05)
--- NOTE | 2017-06-28 12:07 | Cardiology Consultation ---
Cardiology Consultation Date of Consultation: Jun 28, 2017 Requesting Physician: Jean Claude Attending Residential Caregiver: Jes (Santosh Marroquin PA-C) History of Present Illness Ms. Pollock is a very pleasant 56 year old female seen at the request of Dr. Silverio. Reason for consultation is congestive heart failure. Information obtained via interviewing the patient, reviewing the ER records, and reviewing the patient's outpatient electronic medical record. At the time of evaluation and dictation an admission history and physical examination was not available for review. Patient is a markedly complex 56-year-old female with frequent admissions to [facility] with acute on chronic respiratory failure. 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 The patient's cardiac history includes an atrial septal defect that was surgically repaired [facility]. She underwent diagnostic cardiac catheterization in 2008 with angiographically normal coronary arteries. In August 2016 she underwent Lexiscan nuclear stress testing that was noted to be probably normal as per Dr. Brooks. The patient presented to the emergency room with complaints of generalized shortness of breath particularly with activity. She initially thought that this was due to the tramadol so she tried reducing the dosing however this resulted in nausea. On Tuesday she returned to normal dosing with improvement in the GI upset. The shortness of breath continued to worsen. Home SPO2 revealed hypoxemia down to 68% despite 4 L of supplemental oxygen via nasal cannula for which she presented to the emergency room for further evaluation. She notes no fevers or chills. She describes having chronic thick yellow mucus. Appetite is been okay. She is status post right hip replacement earlier this month. She is currently taking aspirin 325 mg twice per day. No chest pain. No palpitations. Shortness of breath is as described above. She denies orthopnea, PND, or abdominal bloating. She notes right greater than left lower extremity peripheral edema following hip replacement. 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 (19) Tachycardia Surgical Problems: (1) H/O atrial septal defect repair (2) H/O: hysterectomy (3) History of hysterectomy (4) History of myringotomy (5) Hx of appendectomy (6) Hx of cholecystectomy (7) Hx of tympanostomy tubes (8) S/P bronchoscopy (9) S/P section (10) S/P sinus surgery (11) S/P tonsillectomy and adenoidectomy (Santosh Marroquin PA-C) Family History Asthma SISTER Cancer SISTER FATHER MOTHER Diabetes mellitus Gallbladder disease Heart disease Hypertension FATHER Kidney disease Kidney stones Lung disease (Santosh Marroquin PA-C) Asthma SISTER Cancer SISTER FATHER MOTHER Diabetes mellitus Gallbladder disease Heart disease Hypertension FATHER Kidney disease Kidney stones Lung disease (Regino Andre, ) Social History Smoking Status: Never Smoker Smokeless Tobacco Use: No Drug Use: none Marital Status: single Housing Status: lives alone Occupation: unemployed, other (Santosh Marroquin PA-C) Review Of Systems Complete review of system is otherwise as stated above, negative, noncontributory. (Santosh Marroquin PA-C) Allergies Coded Allergies: Oxycodone (Verified Allergy, Mild, 0, 06/28/17) depression Albuterol (Verified Adverse Reaction, Mild, CHEST PAIN, LEVALBUTEROL OK, ) PT STATES "IF TAKE TOO MUCH DEVELOPS CHEST PAIN". TOLERATE LEVALBUTEROL 04/201506/14/17 - Patient reports that she does take albuterol at home, just not too frequently. Medications Reported Home Medications Medications Dose Route/Sig Max Daily Dose Days Date Category Ultram (Tramadol HCl) 50 Mg Tab 25 Mg PO Q6 06/28/17 Reported Aspirin 325 Mg Ectab 325 Mg PO BID 42 06/16/17 Rx Advil (Ibuprofen) 200 Mg Tab 400 Mg PO PRN 05/16/17 Reported Tylenol (Acetaminophen) 500 Mg Tab 1,000 Mg PO PRN 05/16/17 Reported [Immunoglobulin] 1 Dose INJ MONTHLY 05/16/17 Reported Spiriva Respimat (Tiotropium [place]) 2.5 Mcg/Act Spr 2 Puff INH QAM 05/16/17 Reported Zoloft (Sertraline HCl) 50 Mg Tab 50 Mg PO QAM 30 04/29/17 Reported Ascorbic Acid 250 Mg Tab 250 Mg PO HS 04/29/17 Reported Cortef (Hydrocortisone) 5 Mg Tab 7.5 Mg PO QAM 03/16/17 Reported Albuterol Sulfate (Albuterol Sulf) 2.5 Mg/3 Ml Nebu 1 Dose INH Q4H PRN 01/15/17 Reported Lopressor (Metoprolol Tartrate) 50 Mg Tab 50 Mg PO BID 11/02/16 Reported Alendronate Sodium 70 Mg Tab 70 Mg PO Tuesday10/01/16 Reported Novolin N (Insulin Human NPH) 100 Units/Ml Susp 10 Units SQ QAM 10/01/16 Reported Oxygen Gas 2-4 Liters NA DAILY 07/12/16 Reported Flonase Allergy Relief (Fluticasone Propionate (Nasal)) 50 Mcg/Act Spr 2 [place] ESPERANZA QAM 05/24/16 Reported Ferrous Sulfate 325 Mg Tab 325 Mg PO HS 05/24/16 Reported Magnesium (Magnesium Oxide (Mg Supplement) 400 Mg Cap 400 Mg PO QAM 02/23/16 Reported Vitamin B12 (Cyanocobalamin) 1,000 Mcg Tab 1,000 Mcg PO QAM 02/23/16 Reported Folic Acid 1 Mg Tab 1 Mg PO HS 03/26/15 Reported Caltrate 600 Plus (Calcium Carbonate-Vitamin D W/) 1 Tab Tab 1 Tab PO QAM 09/20/14 Reported Multivitamin (Multiple Vitamin) 1 Tab Tab 1 Tab PO QAM 09/20/14 Reported Protonix (Pantoprazole) 40 Mg Tab 40 Mg PO QAM 09/20/14 Reported (Santosh Marroquin PA-C) Physical Exam Vital Signs (Last 8hrs): Last 8 Hrs Date Time Temp Pulse Resp B/P (MAP) Pulse Ox O2 Delivery O2 Flow Rate FiO2 06/28/17 09:04 72 18 98 Nasal Cannula 5.0 06/28/17 08:00 95 Nasal Cannula 5.0 06/28/17 07:47 37.1 83 20 123/79 (94) 95 Nasal Cannula 5.0 06/28/17 05:16 37.0 86 18 121/80 94 Nasal Cannula 5.0 06/28/17 04:46 99 116/79 89 06/28/17 03:48 89 Nasal Cannula 5.0 General Appearance: Alert and Oriented x3. NAD. HEENT: Normocephalic Atraumatic. PER. Conjunctiva and sclera pale. Neck: Supple. No carotid bruits. No JVD. No HJD. Respiratory: Diminished. Decreased. Expiratory wheezing. No rales. Cardiovascular: RRR. No murmurs, rubs, gallops. PMI non displaced. Abdomen: +BS. Soft nontender. no abdominal bruits. Extremities: Mild right greater than left lower extremity edema. No cyanosis. Distal pulses 1/4 bilaterally. Neuro: No focal deficits. Psychiatric: Normal affect. (Santosh Marroquin PA-C) Data Last 24 Hours Test 06/28/17 00:15 06/28/17 00:25 06/28/17 03:55 06/28/17 06:34 Influenza Type A Antigen Neg for Influ A Influenza Type B Antigen Neg for Influ B White Blood Count 8.41 K/uL Red Blood Count 3.14 M/uL Hemoglobin 8.3 g/dL Hematocrit 27.4 % Mean Corpuscular Volume 87.3 fL Mean Corpuscular Hemoglobin 26.4 pg Mean Corpuscular Hemoglobin Concent 30.3 g/dl Platelet Count 198 K/uL Mean Platelet Volume 8.8 fL Neutrophils (%) (Auto) 74.6 % Lymphocytes (%) (Auto) 12.8 % Monocytes (%) (Auto) 6.3 % Eosinophils (%) (Auto) 5.6 % Basophils (%) (Auto) 0.5 % Neutrophils # (Auto) 6.27 K/uL Lymphocytes # (Auto) 1.08 K/uL Monocytes # (Auto) 0.53 K/uL Eosinophils # (Auto) 0.47 K/uL Basophils # (Auto) 0.04 K/uL RDW Standard Deviation 53.7 fL RDW Coefficient of Variation 16.8 % Immature Granulocyte % (Auto) 0.2 % Immature Granulocyte # (Auto) 0.02 K/uL Hypochromasia PRESENT Prothrombin Time 10.1 SECONDS Prothromb Time International Ratio 1.0 Activated Partial Thromboplast Time 37.8 SECONDS Partial Thromboplastin Ratio 1.5 Sodium Level 136 mmol/L Potassium Level 4.4 mmol/L Chloride Level 96 mmol/L Carbon Dioxide Level 35 mmol/L Anion Gap 5.0 mmol/L Blood Urea Nitrogen 9 mg/dl Creatinine 0.56 mg/dl Est Creatinine Clear Calc Drug Dose 107.9 ml/min Estimated GFR () 121.7 Estimated GFR (Non- 105.0 BUN/Creatinine Ratio 16.5 Random Glucose 114 mg/dl Calcium Level 8.7 mg/dl Magnesium Level 2.0 mg/dl Total Bilirubin 0.3 mg/dl Aspartate Amino Transf (AST/SGOT) 10 U/L Alanine Aminotransferase (ALT/SGPT) 12 U/L Alkaline Phosphatase 78 U/L Troponin I < 0.015 ng/ml Pro-B-Type Natriuretic Peptide 1971 pg/ml Total Protein 7.2 gm/dl Albumin 2.8 gm/dl Globulin 4.4 gm/dl Albumin/Globulin Ratio 0.6 Lipase 98 U/L Thyroid Stimulating Hormone (TSH) 1.850 uIu/ml Arterial Blood pH 7.37 Arterial Blood Partial Pressure CO2 63 mmHg Arterial Blood Partial Pressure O2 75 mm/Hg Arterial Blood HCO3 35 mmol/L Arterial Blood Oxygen Saturation 92.2 % Arterial Blood Base Excess 8.4 mEq/L Arterial Blood Gas Delivery 4.5L Gui Test POS Bedside Glucose 126 mg/dl Test 06/28/17 07:53 Absolute Reticulocyte Count 0.07 10^6/uL Percent Reticulocyte Count 2.1 % Iron Level 24 mcg/dl Total Iron Binding Capacity 213 mcg/dl Transferrin 159 mg/dl Transferrin % Saturation 11 % Ferritin 300.7 ng/ml Troponin I < 0.015 ng/ml Vitamin B12 Level 1886 pg/mL Folate > 24.00 ng/mL EKG on presentation revealed normal sinus rhythm at 73 bpm with an incomplete right bundle branch block pattern Repeat EKG this morning reveals sinus rhythm with a short DC, incomplete right bundle branch block pattern, worsening T-wave inversion in the anterior leads. June 28, 2017 TTE Interpretation Summary ([facility], Dr. Andre): Left ventricular systolic function is normal. Ejection Fraction = 65-70%. There is mild concentric left ventricular hypertrophy. Septal motion is consistent with post-operative state. Mild aortic regurgitation. There is trace mitral regurgitation. There is mild tricuspid regurgitation. The estimated systolic pulmonary arterial pressure is 44 mmHg. Pulse wave TDI of the anterior and posterior mitral annulas demonstrates normal LV relaxation Telemetry: Sinus. (Santosh Marroquin, [place]) Assessment & Plan Admission with recurrent acute respiratory failure More pronounced EKG changes, likely aggravated by the acute respiratory failure and symptomatic anemia Examination without evidence of acute decompensated heart failure Resting echocardiography this admission with normal to hyperdynamic LV systolic function, normal diastolic function, normal RV function, no significant valvular heart disease History of atrial septal defect status post repair in her mid 20's. History of angiographically normal coronary arteries by prior catheterization Imaging with an acute appearing nondisplaced fracture involves the superior posterior acetabulum. RECOMMENDATIONS: Caution with further IV diuresis Continue chronic beta-kleber therapy given her history of chronic sinus tachycardia and brief asymptomatic salvos of SVT Further recommendations pending evaluation by Dr. Andre and her ongoing hospitalization. (Santosh Marroquin PA-C) Cardiology attending physician: Patient seen and examined at the bedside. Notes wheezing and cough. No orthopnea or PND. Denies lower extremity edema or weight gain. Patient treated with intravenous Lasix in the emergency department. Respiratory status has improved. Acetabular fracture noted on CT. Resting comfortably. Offers no other complaints at this time. Physical exam: VSS. General: NAD, awake alert and oriented 3. Heart: Regular , borderline tachycardic, no murmur, rub, gallop. Lungs: Bilateral expiratory wheeze, scattered rhonchi. No rales. Extremities: No edema. A/P: Agree with above PA-C, history, physical exam, assessment and plan. Patient does not appear overtly volume overloaded per examination. Recommend pulmonary consultation given chronic respiratory issues. Echocardiogram reviewed demonstrating normal left ventricular systolic and diastolic function. No significant valvular disease. Thank you for allowing us to participate in the care of your patient. We will continue to follow during hospitalization. Cuate Andre DO, [facility] (Regino Andre, )
[2017-06-28 12:19] LABS: HEMATOCRIT 27.4 % (37-47); HEMOGLOBIN 8.4 g/dL (12.0-16.0)
--- NOTE | 2017-06-28 12:32 | HISTORY & PHYSICAL EXAMINATION ---
DATE OF ADMISSION: 06/28/2017 PRIMARY CARE DOCTOR: SHMUEL Patel. CHIEF COMPLAINT: Shortness of breath. HISTORY OF PRESENT ILLNESS: History was obtained from the patient and records. Medical history is significant for chronic respiratory failure secondary to steroid dependent bronchiectasis on home O2, HTN, DM2, insulin requiring chronic anemia (baseline hemoglobin of 10), history of ASD repair, Hypogammaglobulinemia, avascular necrosis of the right hip sp surgery on aspirin for DVT prophylaxis (06/2017). Recent confinement under Orthopedic service 2 weeks ago for right total hip arthroplasty for avascular necrosis. Patient was discharged on aspirin twice day for DVT prophylaxis at home. Intermittent hematochezia noted at home. Attributed by family to hemorrhoids. No hematemesis, coffee-ground emesis. Achy right-sided abdominal pain. The last 3 days. patient was more short of breath than usual, increasing more oxygen. Usual cough symptoms. Sleeping more than usual as per family. Right lower extremity is more swollen than usual. No chest pain. Patient was brought to the Emergency Room and received IV Lasix for possible congestion. MEDICAL HISTORY: As above. 2016 Colonoscopy was normal. 2D echo from May 2015 showed an EF of 66%, normal LV systolic function, LVH, dilated IVC with elevated right atrial pressure of 50 mmHg. No pericardial effusion. SURGERIES: She had right hip surgery, ASD repair, hysterectomy, appendectomy, cholecystectomy, sinus surgery, tonsillectomy, and adenectomy. HOME MEDICATIONS: Include ferrous sulfate, Flonase, folic acid, on home O2, Cortef, immunoglobulin, Advil, p.r.n. Novolin, magnesium, multivitamins, Lopressor, Protonix, Zoloft, Spiriva, and Ultram. ASA ALLERGIES: ALBUTEROL. Oxycodone FAMILY HISTORY: Heart disease and diabetes. PERSONAL AND SOCIAL HISTORY: Nonsmoker. No chronic ETOH intake , disabled. REVIEW OF SYSTEMS: As per HPI. All 10 systems reviewed. All other ROS negative. PHYSICAL EXAMINATION: VITAL SIGNS: Blood pressure was noted to be 130/80, [place] 112 later 99 RR 29 later 18, temperature 36.8, and sats 78 later 95 on 5L. GENERAL: Noted to be in minimal respiratory distress. Cushingoid SKIN: Pallor and warm. HEENT: Pale palpebral conjunctivae, no ptosis. Dry mucosa. NECK: Short and supple. CHEST: Decreased breath sounds and scattered crackles. HEART: Regular rate and rhythm. No murmurs. ABDOMEN: Some distention and nontender. EXTREMITIES: Minimal RLE edema. Some tenderness in right. No other gross deformities. NEUROLOGIC: Coherent. No gross focality. RECTAL EXAM: Intact sphincter. Brown stool. Heme positive. LABORATORY DATA: Hemoglobin was noted to be 8.3, platelets noted to be 198. Sodium 130, potassium 4.4, chloride 96, CO2 of 35, BUN 9, creatinine 0.5, and glucose was noted to be 114. BNP was 1971. CTA initial read, no PE, bronchiectasis. RLE venous Doppler ultrasound, normal study. EKG as per my interpretation, rate 75, normal sinus rhythm, incomplete right bundle branch block. Low voltage. ASSESSMENT: 1. Acute on chronic hypoxemic respiratory failure possible right-sided heart failure Increase shortness of breath, weight gain symptoms history of chronic respiratory failure secondary to bronchiectasis, steroid dependent disease TTE 05/2015 showed dilated IVC, signifying elevated right-sided heart pressures. 2. Hypertension, stable. 3. Avascular necrosis right hip status post recent surgery Patient unable to do physical therapy the last few days secondary to sleepiness , shortness of breath symptoms.. 4. acute and chronic anemia secondary to slow LGIB Aspirin for DVT prophylaxis initiated post recent right hip surgery. 5. Right abdominal pain, etiology to be determined. 6. Steroid induced DM well controlled as of recent inpatient hemoglobin A1c of 6 last April 2017. PLAN: PCU supplemental O2 baseline ABG. Diuretic Rx. 2D echo, Cardio consult. RE possible right-sided HF Strict IOS, daily weights, CHF education CT abdomen and pelvis, right-sided abdominal pain. Stop aspirin RE LGIB. Following HH, anemia workup, transfuse pRBC for hemoglobin less than 7 and/or for symptomatic anemia. GI consult RE LGIB ISS BG goal 140-180. Hold basal insulin while patient on clear liquids for possible GI procedure. Resume basal insulin when the patient's diet advanced from clear liquids. DVT prophylaxis, SCDs RE LGIB Full code. MTDD
--- NOTE | 2017-06-28 12:41 | Gastrointestinal Consultation ---
Gastrointestinal Consultation Date of Consultation: Jun 28, 2017 Attending Physician: Janessa Blas Consulting Physician: Margareth Hill Reason for Consultation: Lower GI bleed History of Present Illness Patient is a 56 year old female w hx of ,COPD, bronchioectasis currently admitted for acute on chronic respiratory distress. She was using O2 3L at home but yesterday felt SOB on exertion and had to increase O2 to 5L. She recently had R hip replacement for AVN. Reports that besides her breathing problems, she is feeling rather well. On admission however, labs showed BNP of >1900, and she is suspected to have new CHF. Cardiology is currently evaluating pt. I was told by primary attending that last night when pt was admitted, rectal exam was done as she was also noted to be anemic, and had issues w hemorrhoidal bleeding before. She was noted to have grossly red blood in rectum. Pt's baseline Hgb is usually around 10, currently 8. No coagulopathy noted. She is taking Ferrous Sulfate 325mg daily. Iron panel showed low values. B12 and FA normal. She admits to have rectal bleeding with bowel movements. Stools are black in color but on iron supplements. She denies any abd pain, n/v, hematemesis/coffee ground emesis. Never had any EGD evals before for anemia but 2 colonoscopies in 2007, and 2016 - hemorrhoids, otherwise normal. She denies any hx of IBD. CT abd /pelvis on admission w/o acute bowel pathology/abnormalities. Past Medical/Surgical History Medical Problems: (1) Acute and chronic respiratory failure with hypercapnia Status: Acute (2) Atrial fibrillation with rapid ventricular response Status: Acute (3) Atypical pneumonia Status: Acute (4) Bronchiectasis Status: Acute (5) Bronchiectasis Status: Acute (6) Bronchiectasis Status: Chronic (7) Bronchiectasis Status: Acute (8) Bronchitis Status: Acute (9) Chronic lung disease Status: Acute (10) COPD exacerbation Status: Acute (11) Dyspnea Status: Acute (12) Dyspnea Status: Acute (13) Elevated brain natriuretic peptide (BNP) level Status: Acute (14) Fever Status: Acute (15) Fever Status: Acute (16) Hypoxia Status: Acute (17) Hypoxia Status: Acute (18) Hypoxia Status: Acute (19) Hypoxia Status: Acute (20) PNA (pneumonia) Status: Acute (21) PNA (pneumonia) Status: Acute (22) Pneumonia Status: Acute (23) Pneumonia Status: Acute (24) Pneumonia Status: Acute (25) Sepsis Status: Acute (26) SOB (shortness of breath) Status: Acute Past Medical History: Medical Problems: (1) Anxiety (2) Asthma (3) Avascular necrosis of bone of right hip (4) Bronchiectasis (5) Chronic respiratory failure (6) COPD exacerbation (7) Depression (8) Diabetes mellitus, type II (9) Emphysema (10) GERD (gastroesophageal reflux disease) (11) Hyperlipidemia (12) Hypogammaglobulinemia (13) Mild pulmonary hypertension (14) BILL (obstructive sleep apnea) (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 (16) Pneumonia (17) Respiratory failure, acute (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 (19) Tachycardia Past Surgical History: Surgical Problems: (1) H/O atrial septal defect repair (2) H/O: hysterectomy (3) History of hysterectomy (4) History of myringotomy (5) Hx of appendectomy (6) Hx of cholecystectomy (7) Hx of tympanostomy tubes (8) S/P bronchoscopy (9) S/P section (10) S/P sinus surgery (11) S/P tonsillectomy and adenoidectomy Family History Asthma SISTER Cancer SISTER FATHER MOTHER Diabetes mellitus Gallbladder disease Heart disease Hypertension FATHER Kidney disease Kidney stones Lung disease Social History Smoking Status: Never Smoker Alcohol Use: none Drug Use: none Marital Status: single Housing Status: lives with family Occupation Status: unemployed, other Allergies Coded Allergies: Oxycodone (Verified Allergy, Mild, 0, 06/28/17) depression Albuterol (Verified Adverse Reaction, Mild, CHEST PAIN, LEVALBUTEROL OK, ) PT STATES "IF TAKE TOO MUCH DEVELOPS CHEST PAIN". TOLERATE LEVALBUTEROL 04/201506/14/17 - Patient reports that she does take albuterol at home, just not too frequently. Current Medications Home Meds and Scripts Medications Dose Route/Sig Max Daily Dose Days Date Category Ultram (Tramadol HCl) 50 Mg Tab 25 Mg PO Q6 06/28/17 Reported Aspirin 325 Mg Ectab 325 Mg PO BID 42 06/16/17 Rx Advil (Ibuprofen) 200 Mg Tab 400 Mg PO PRN 05/16/17 Reported Tylenol (Acetaminophen) 500 Mg Tab 1,000 Mg PO PRN 05/16/17 Reported [Immunoglobulin] 1 Dose INJ MONTHLY 05/16/17 Reported Spiriva Respimat (Tiotropium [place]) 2.5 Mcg/Act Spr 2 Puff INH QAM 05/16/17 Reported Zoloft (Sertraline HCl) 50 Mg Tab 50 Mg PO QAM 30 04/29/17 Reported Ascorbic Acid 250 Mg Tab 250 Mg PO HS 04/29/17 Reported Cortef (Hydrocortisone) 5 Mg Tab 7.5 Mg PO QAM 03/16/17 Reported Albuterol Sulfate (Albuterol Sulf) 2.5 Mg/3 Ml Nebu 1 Dose INH Q4H PRN 01/15/17 Reported Lopressor (Metoprolol Tartrate) 50 Mg Tab 50 Mg PO BID 11/02/16 Reported Alendronate Sodium 70 Mg Tab 70 Mg PO Tuesday10/01/16 Reported Novolin N (Insulin Human NPH) 100 Units/Ml Susp 10 Units SQ QAM 10/01/16 Reported Oxygen Gas 2-4 Liters NA DAILY 07/12/16 Reported Flonase Allergy Relief (Fluticasone Propionate (Nasal)) 50 Mcg/Act Spr 2 [place] QAM 05/24/16 Reported Ferrous Sulfate 325 Mg Tab 325 Mg PO HS 05/24/16 Reported Magnesium (Magnesium Oxide (Mg Supplement) 400 Mg Cap 400 Mg PO QAM 02/23/16 Reported Vitamin B12 (Cyanocobalamin) 1,000 Mcg Tab 1,000 Mcg PO QAM 02/23/16 Reported Folic Acid 1 Mg Tab 1 Mg PO HS 03/26/15 Reported Caltrate 600 Plus (Calcium Carbonate-Vitamin D W/) 1 Tab Tab 1 Tab PO QAM 09/20/14 Reported Multivitamin (Multiple Vitamin) 1 Tab Tab 1 Tab PO QAM 09/20/14 Reported Protonix (Pantoprazole) 40 Mg Tab 40 Mg PO QAM 09/20/14 Reported Review of Systems Constitutional: No fever, No chills Respiratory: + shortness of breath, + dyspnea on exertion, No cough Cardiac: No chest pain Abdomen: + see HPI, + GI bleeding, No pain, No nausea, No vomiting Physical Exam Date Time Temp Pulse Resp B/P (MAP) Pulse Ox O2 Delivery O2 Flow Rate FiO2 06/28/17 12:00 94 Nasal Cannula 5.0 06/28/17 11:34 36.8 78 17 117/73 (88) 92 Nasal Cannula 5.0 06/28/17 09:04 72 18 98 Nasal Cannula 5.0 06/28/17 08:00 95 Nasal Cannula 5.0 06/28/17 07:47 37.1 83 20 123/79 (94) 95 Nasal Cannula 5.0 06/28/17 05:16 37.0 86 18 121/80 94 Nasal Cannula 5.0 06/28/17 04:46 99 116/79 89 06/28/17 03:48 89 Nasal Cannula 5.0 06/28/17 02:56 22 93 Nasal Cannula 5.0 06/28/17 02:47 112 29 78 Nasal Cannula 5.0 06/28/17 02:28 76 16 118/74 100 Nasal Cannula 4.0 06/28/17 00:32 83 18 180/85 100 Nasal Cannula 5.0 06/28/17 00:05 93 Nasal Cannula 6.0 06/28/17 00:04 90 06/28/17 00:01 93 Nasal Cannula 6.0 06/28/17 00:00 93 Nasal Cannula 6.0 06/27/17 23:50 36.8 87 20 121/76 97 Nasal Cannula 5.0 General Appearance: WD/WN, no apparent distress, + obese Eyes: normal inspection, PERRL, EOMI Neck: supple, no JVD, trachea midline Respiratory/Chest: + decreased breath sounds, + crackles Cardiovascular: regular rate, rhythm, no gallop, no murmur Abdomen: normal bowel sounds, non tender, soft, + pertinent finding (Rectal exam: small hemorrhoid, non thrombosed in external area, no fissure noted. No rectal mass noted. Stool are dark brown, no blood noted on rectal vault. ) Extremities: normal inspection, no pedal edema, no calf tenderness Neurologic/Psych: alert, normal mood/affect, oriented x 3 Skin: normal color, no jaundice, no rash Laboratory Results Last 24 Hours Test 06/28/17 00:15 06/28/17 00:25 06/28/17 03:55 06/28/17 06:34 Influenza Type A Antigen Neg for Influ A Influenza Type B Antigen Neg for Influ B White Blood Count 8.41 K/uL Red Blood Count 3.14 M/uL Hemoglobin 8.3 g/dL Hematocrit 27.4 % Mean Corpuscular Volume 87.3 fL Mean Corpuscular Hemoglobin 26.4 pg Mean Corpuscular Hemoglobin Concent 30.3 g/dl Platelet Count 198 K/uL Mean Platelet Volume 8.8 fL Neutrophils (%) (Auto) 74.6 % Lymphocytes (%) (Auto) 12.8 % Monocytes (%) (Auto) 6.3 % Eosinophils (%) (Auto) 5.6 % Basophils (%) (Auto) 0.5 % Neutrophils # (Auto) 6.27 K/uL Lymphocytes # (Auto) 1.08 K/uL Monocytes # (Auto) 0.53 K/uL Eosinophils # (Auto) 0.47 K/uL Basophils # (Auto) 0.04 K/uL RDW Standard Deviation 53.7 fL RDW Coefficient of Variation 16.8 % Immature Granulocyte % (Auto) 0.2 % Immature Granulocyte # (Auto) 0.02 K/uL Hypochromasia PRESENT Prothrombin Time 10.1 SECONDS Prothromb Time International Ratio 1.0 Activated Partial Thromboplast Time 37.8 SECONDS Partial Thromboplastin Ratio 1.5 Sodium Level 136 mmol/L Potassium Level 4.4 mmol/L Chloride Level 96 mmol/L Carbon Dioxide Level 35 mmol/L Anion Gap 5.0 mmol/L Blood Urea Nitrogen 9 mg/dl Creatinine 0.56 mg/dl Est Creatinine Clear Calc Drug Dose 107.9 ml/min Estimated GFR () 121.7 Estimated GFR (Non- 105.0 BUN/Creatinine Ratio 16.5 Random Glucose 114 mg/dl Calcium Level 8.7 mg/dl Magnesium Level 2.0 mg/dl Total Bilirubin 0.3 mg/dl Aspartate Amino Transf (AST/SGOT) 10 U/L Alanine Aminotransferase (ALT/SGPT) 12 U/L Alkaline Phosphatase 78 U/L Troponin I < 0.015 ng/ml Pro-B-Type Natriuretic Peptide 1971 pg/ml Total Protein 7.2 gm/dl Albumin 2.8 gm/dl Globulin 4.4 gm/dl Albumin/Globulin Ratio 0.6 Lipase 98 U/L Thyroid Stimulating Hormone (TSH) 1.850 uIu/ml Arterial Blood pH 7.37 Arterial Blood Partial Pressure CO2 63 mmHg Arterial Blood Partial Pressure O2 75 mm/Hg Arterial Blood HCO3 35 mmol/L Arterial Blood Oxygen Saturation 92.2 % Arterial Blood Base Excess 8.4 mEq/L Arterial Blood Gas Delivery 4.5L Gui Test POS Bedside Glucose 126 mg/dl Test 06/28/17 07:53 06/28/17 11:03 06/28/17 11:55 Absolute Reticulocyte Count 0.07 10^6/uL Percent Reticulocyte Count 2.1 % Iron Level 24 mcg/dl Total Iron Binding Capacity 213 mcg/dl Transferrin 159 mg/dl Transferrin % Saturation 11 % Ferritin 300.7 ng/ml Troponin I < 0.015 ng/ml Vitamin B12 Level 1886 pg/mL Folate > 24.00 ng/mL Bedside Glucose 129 mg/dl Hemoglobin 8.4 g/dL Hematocrit 27.4 % Impression Patient is a 56 year old female currently admitted for acute on chronic respiratory distress, also being evaluated for possible new onset CHF, seen for lower GI bleed. She has chronic anemia and admission labs showed lower H/H than baseline. She does admit to intermittent hematochezia, with bowel movements which she attributed to hemorrhoids. Rectal exam by myself w/o finding of fissures, rectal mass though she has small ext hemorrhoids. She is w/o abd pain , n/v, CT scan w/o acute bowel pathology. Previous colonoscopies w/ findings of hemorrhoids but otherwise normal, no signs of IBD. Plan - Monitor H/H and transfuse prn; spoke w primary team to recommend increase of iron supplements. - Will order hydrocortisone rectal cream prn hemorrhoid bleed. - Did discuss possible EGD +/- colonoscopy evals with pt given her anemia; but not urgent and would prefer to wait till she's more stable from cardiopulmonary standpoint. I have seen and examined the patient with SHMUEL Rene whose note reflects our findings and plan. Still SOB. Needs to be stabilized from resp/cardiac standpoint. At some point she may need an EGD. She has had colonoscopy x 2 in the past, most recent a littler over a year ago.
[2017-06-28] MEDS ORDERED: HYDROCORTISONE HC 2.5% CRM 30GM TUBE EXT PRN (12:45)
--- NOTE | 2017-06-28 16:42 | Pulmonary Consultation ---
History General Date of Service: Jun 28, 2017. Stated Complaint: Respiratory Failure, Acute HPI The patient is a 56 year old female who presents to [facility] with complaints of Respiratory Failure, Acute. The patient's primary care provider is Ivonne Subramanian. Historian: patient, other (Hospital records) Severity: moderate Review of Systems Constitutional: reports: no symptoms Eyes: reports: no symptoms ENT: reports: nasal congestion Cardiovascular: reports: no symptoms Respiratory: reports: cough, shortness of breath, wheezing Gastrointestinal: reports: no symptoms Musculoskeletal: reports: no symptoms Neurologic: reports: no symptoms Psychiatric: reports: no symptoms Allergic / Immunologic: no symptoms Past Medical History Past Medical History: Chronic bronchiectasis, history of chronic sinusitis, immunoglobulin deficiency , chronic steroid use, secondary diabetes, arthritis of the hip, status post hip replacement 2 weeks ago. Past Medical History: anxiety, depression, diabetes, GERD, lung disease, other Family History Asthma SISTER Cancer SISTER FATHER MOTHER Diabetes mellitus Gallbladder disease Heart disease Hypertension FATHER Kidney disease Kidney stones Lung disease Social History Hx Tobacco Use In Past Year?: No Smoking Status: Never Smoker Alcohol: never Drug Use: none Marital status: single Housing status: lives alone Occupational Status: unemployed, other Immunizations History of Influenza Vaccine: Yes Influenza Vaccine Date: Mar 14, 2015 History of Tetanus Vaccine?: Yes Tetanus Immunization Date: Jun 16, 2010 History of Pneumococcal: Yes Pneumococcal Date: Sep 22, 2010 History of Hepatitis B Vaccine: Unknown History of MDRO History of MDRO: No Allergies Coded Allergies: Oxycodone (Verified Allergy, Mild, 0, 06/28/17) depression Albuterol (Verified Adverse Reaction, Mild, CHEST PAIN, LEVALBUTEROL [place], ) PT STATES "IF TAKE TOO MUCH DEVELOPS CHEST PAIN". TOLERATE LEVALBUTEROL 04/201506/14/17 - Patient reports that she does take albuterol at home, just not too frequently. Current Medications Reported Home Medications Medications Dose Route/Sig Max Daily Dose Days Date Category Ultram (Tramadol HCl) 50 Mg Tab 25 Mg PO Q6 06/28/17 Reported Aspirin 325 Mg Ectab 325 Mg PO BID 42 06/16/17 Rx Advil (Ibuprofen) 200 Mg Tab 400 Mg PO PRN 05/16/17 Reported Tylenol (Acetaminophen) 500 Mg Tab 1,000 Mg PO PRN 05/16/17 Reported [Immunoglobulin] 1 Dose INJ MONTHLY 05/16/17 Reported Spiriva Respimat (Tiotropium [place]) 2.5 Mcg/Act Spr 2 Puff INH QAM 05/16/17 Reported Zoloft (Sertraline HCl) 50 Mg Tab 50 Mg PO QAM 30 04/29/17 Reported Ascorbic Acid 250 Mg Tab 250 Mg PO HS 04/29/17 Reported Cortef (Hydrocortisone) 5 Mg Tab 7.5 Mg PO QAM 03/16/17 Reported Albuterol Sulfate (Albuterol Sulf) 2.5 Mg/3 Ml Nebu 1 Dose INH Q4H PRN 01/15/17 Reported Lopressor (Metoprolol Tartrate) 50 Mg Tab 50 Mg PO BID 11/02/16 Reported Alendronate Sodium 70 Mg Tab 70 Mg PO Tuesday10/01/16 Reported Novolin N (Insulin Human NPH) 100 Units/Ml Susp 10 Units SQ QAM 10/01/16 Reported Oxygen Gas 2-4 Liters NA DAILY 07/12/16 Reported Flonase Allergy Relief (Fluticasone Propionate (Nasal)) 50 Mcg/Act Spr 2 [place] QAM 05/24/16 Reported Ferrous Sulfate 325 Mg Tab 325 Mg PO HS 05/24/16 Reported Magnesium (Magnesium Oxide (Mg Supplement) 400 Mg Cap 400 Mg PO QAM 02/23/16 Reported Vitamin B12 (Cyanocobalamin) 1,000 Mcg Tab 1,000 Mcg PO QAM 02/23/16 Reported Folic Acid 1 Mg Tab 1 Mg PO HS 03/26/15 Reported Caltrate 600 Plus (Calcium Carbonate-Vitamin D W/) 1 Tab Tab 1 Tab PO QAM 09/20/14 Reported Multivitamin (Multiple Vitamin) 1 Tab Tab 1 Tab PO QAM 09/20/14 Reported Protonix (Pantoprazole) 40 Mg Tab 40 Mg PO QAM 09/20/14 Reported Physical Physical Exam Vital Signs: Date Time Temp Pulse Resp B/P (MAP) Pulse Ox O2 Delivery O2 Flow Rate FiO2 06/28/17 16:00 95 Nasal Cannula 5.0 06/28/17 15:35 37.0 94 22 119/75 (90) 98 Nasal Cannula 3.5 06/28/17 13:42 76 18 93 Nasal Cannula 4.0 06/28/17 12:00 94 Nasal Cannula 5.0 06/28/17 11:34 36.8 78 17 117/73 (88) 92 Nasal Cannula 5.0 06/28/17 09:04 72 18 98 Nasal Cannula 5.0 06/28/17 08:00 95 Nasal Cannula 5.0 06/28/17 07:47 37.1 83 20 123/79 (94) 95 Nasal Cannula 5.0 06/28/17 05:16 37.0 86 18 121/80 94 Nasal Cannula 5.0 06/28/17 04:46 99 116/79 89 06/28/17 03:48 89 Nasal Cannula 5.0 06/28/17 02:56 22 93 Nasal Cannula 5.0 06/28/17 02:47 112 29 78 Nasal Cannula 5.0 06/28/17 02:28 76 16 118/74 100 Nasal Cannula 4.0 06/28/17 00:32 83 18 180/85 100 Nasal Cannula 5.0 06/28/17 00:05 93 Nasal Cannula 6.0 06/28/17 00:04 90 06/28/17 00:01 93 Nasal Cannula 6.0 06/28/17 00:00 93 Nasal Cannula 6.0 06/27/17 23:50 36.8 87 20 121/76 97 Nasal Cannula 5.0 General Appearance: WELL-APPEARING, NO APPARENT DISTRESS Eyes: PERRLA, EOMI ENT: NORMAL MOUTH EXAM, NORMAL THROAT EXAM Neck: NO TENDERNESS Respiratory: rhonchi, wheezing, other Cardiovasular: NORMAL S1S2, NO M/G/R, NO MURMUR Abdomen: NON TENDER, NO REBOUND, NO MASSES Upper Extremities: NO EDEMA Lower Extremities: NO EDEMA Neuro: ALERT, ORIENTED x 3, NORMAL MOTOR EXAM Psychiatric: NORMAL AFFECT Diagnostics Labs Results Past 24 Hours Test 06/28/17 00:15 06/28/17 00:25 06/28/17 03:55 06/28/17 06:34 Range/Units Influenza Type A Antigen Neg for Influ A NEG Influenza Type B Antigen Neg for Influ B NEG White Blood Count 8.41 4.8-10.8 K/uL Red Blood Count 3.14 4.2-5.4 M/uL Hemoglobin 8.3 12.0-16.0 g/dL Hematocrit 27.4 37-47 % Mean Corpuscular Volume 87.3 80-100 fL Mean Corpuscular Hemoglobin 26.4 25-34 pg Mean Corpuscular Hemoglobin Concent 30.3 32-36 g/dl Platelet Count 198 130-400 K/uL Mean Platelet Volume 8.8 7.4-10.4 fL Neutrophils (%) (Auto) 74.6 % Lymphocytes (%) (Auto) 12.8 % Monocytes (%) (Auto) 6.3 % Eosinophils (%) (Auto) 5.6 % Basophils (%) (Auto) 0.5 % Neutrophils # (Auto) 6.27 1.4-6.5 K/uL Lymphocytes # (Auto) 1.08 1.2-3.4 K/uL Monocytes # (Auto) 0.53 0.11-0.59 K/uL Eosinophils # (Auto) 0.47 0-0.5 K/uL Basophils # (Auto) 0.04 0-0.2 K/uL RDW Standard Deviation 53.7 36.4-46.3 fL RDW Coefficient of Variation 16.8 11.5-14.5 % Immature Granulocyte % (Auto) 0.2 % Immature Granulocyte # (Auto) 0.02 0.00-0.02 K/uL Hypochromasia PRESENT Prothrombin Time 10.1 9.0-12.0 SECONDS Prothromb Time International Ratio 1.0 0.9-1.1 Activated Partial Thromboplast Time 37.8 21.0-31.0 SECONDS Partial Thromboplastin Ratio 1.5 Sodium Level 136 136-145 mmol/L Potassium Level 4.4 3.5-5.1 mmol/L Chloride Level 96 98-107 mmol/L Carbon Dioxide Level 35 21-32 mmol/L Anion Gap 5.0 3-11 mmol/L Blood Urea Nitrogen 9 7-18 mg/dl Creatinine 0.56 0.60-1.20 mg/dl Est Creatinine Clear Calc Drug Dose 107.9 ml/min Estimated GFR () 121.7 Estimated GFR (Non- 105.0 BUN/Creatinine Ratio 16.5 10-20 Random Glucose 114 70-99 mg/dl Calcium Level 8.7 8.5-10.1 mg/dl Magnesium Level 2.0 1.8-2.4 mg/dl Total Bilirubin 0.3 0.2-1 mg/dl Aspartate Amino Transf (AST/SGOT) 10 15-37 U/L Alanine Aminotransferase (ALT/SGPT) 12 12-78 U/L Alkaline Phosphatase 78 45-117 U/L Troponin I < 0.015 0-0.045 ng/ml Pro-B-Type Natriuretic Peptide 1971 0-900 pg/ml Total Protein 7.2 6.4-8.2 gm/dl Albumin 2.8 3.4-5.0 gm/dl Globulin 4.4 2.5-4.0 gm/dl Albumin/Globulin Ratio 0.6 0.9-2 Lipase 98 73-393 U/L Thyroid Stimulating Hormone (TSH) 1.850 0.300-4.500 uIu/ml Arterial Blood pH 7.37 7.35-7.45 Arterial Blood Partial Pressure CO2 63 35-46 mmHg Arterial Blood Partial Pressure O2 75 80-95 mm/Hg Arterial Blood HCO3 35 19-24 mmol/L Arterial Blood Oxygen Saturation 92.2 90-95 % Arterial Blood Base Excess 8.4 -9-1.8 mEq/L Arterial Blood Gas Delivery 4.5L Gui Test POS POS Bedside Glucose 126 70-90 mg/dl Test 06/28/17 07:53 06/28/17 11:03 06/28/17 11:55 06/28/17 16:13 Range/Units Absolute Reticulocyte Count 0.07 0.02-0.10 10^6/uL Percent Reticulocyte Count 2.1 0.5-2.0 % Iron Level 24 35-150 mcg/dl Total Iron Binding Capacity 213 250-450 mcg/dl Transferrin 159 200-360 mg/dl Transferrin % Saturation 11 15-50 % Ferritin 300.7 8.0-388.0 ng/ml Troponin I < 0.015 0-0.045 ng/ml Vitamin B12 Level 1886 211-911 pg/mL Folate > 24.00 >5.38 ng/mL Bedside Glucose 129 128 70-90 mg/dl Hemoglobin 8.4 12.0-16.0 g/dL Hematocrit 27.4 37-47 % Diagnostic Radiology Reviewed her CAT scan as well as a chest x-ray which showed significant saccular bronchiectasis, peribronchial thickening, there is no evidence of infiltrate itself or pleural effusion. Impression Assessment and Plan 1. Saccular bronchiectasis, with exacerbation. Likely triggered after recent procedure. 2. History of chronic sinusitis contributing to above. 3. Steroid-induced osteoporosis and arthritis. Status post hip replacement 2 weeks ago. 4. Secondary diabetes. Plan: 1. The patient is currently in bronchiectasis exacerbation. She has been maintained on chronic steroids with hydrocortisone. However given the recent exacerbation I would increase his steroid for the next 3 days and then taper it accordingly. Unfortunately, the patient will be very difficult to wean off the steroids. 2. The patient had in the past bronchoscopies for pulmonary toilet, I elected to use a vibrating vest first the patient tolerated no need for invasive procedure. 3. Continue with bronchodilators. 4. Agree with the rest of her management. 5. Discussed with the patient in details, all her questions been answered. I will add hypertonic saline nebulized. Thank you, will follow.
--- NOTE | 2017-06-28 16:52 | Progress Note ---
Medicine Progress Note Date & Time of Visit: Jun 28, 2017 at 16:52. Subjective See H&P from this AM for more details Objective Last 8 Hrs Date Time Temp Pulse Resp B/P (MAP) Pulse Ox O2 Delivery O2 Flow Rate FiO2 06/28/17 16:00 95 Nasal Cannula 5.0 06/28/17 15:35 37.0 94 22 119/75 (90) 98 Nasal Cannula 3.5 06/28/17 13:42 76 18 93 Nasal Cannula 4.0 06/28/17 12:00 94 Nasal Cannula 5.0 06/28/17 11:34 36.8 78 17 117/73 (88) 92 Nasal Cannula 5.0 06/28/17 09:04 72 18 98 Nasal Cannula 5.0 Physical Exam: GENERAL: Patient is in no acute distress. HEENT: No acute trauma, normocephalic atraumatic, mucous membranes moist, no nasal congestion, no scleral icterus. NECK: No stridor, trachea is midline. LUNGS: Diminished bilaterally, mild expiratory wheeze, no rhonchi, breath sounds equal. HEART: Without murmurs gallops or rubs, regular rate and rhythm. ABDOMEN: Soft, nontender, bowel sounds positive EXTREMITIES: No cyanosis or edema, mild right hip soreness with ROM NEUROLOGIC: Oriented x 3, no acute motor or sensory deficits, no focal weakness. SKIN: No rash, no jaundice, no diaphoresis. Laboratory Results: Last 24 Hours Test 06/28/17 00:15 06/28/17 00:25 06/28/17 03:55 06/28/17 06:34 Influenza Type A Antigen Neg for Influ A Influenza Type B Antigen Neg for Influ B White Blood Count 8.41 K/uL Red Blood Count 3.14 M/uL Hemoglobin 8.3 g/dL Hematocrit 27.4 % Mean Corpuscular Volume 87.3 fL Mean Corpuscular Hemoglobin 26.4 pg Mean Corpuscular Hemoglobin Concent 30.3 g/dl Platelet Count 198 K/uL Mean Platelet Volume 8.8 fL Neutrophils (%) (Auto) 74.6 % Lymphocytes (%) (Auto) 12.8 % Monocytes (%) (Auto) 6.3 % Eosinophils (%) (Auto) 5.6 % Basophils (%) (Auto) 0.5 % Neutrophils # (Auto) 6.27 K/uL Lymphocytes # (Auto) 1.08 K/uL Monocytes # (Auto) 0.53 K/uL Eosinophils # (Auto) 0.47 K/uL Basophils # (Auto) 0.04 K/uL RDW Standard Deviation 53.7 fL RDW Coefficient of Variation 16.8 % Immature Granulocyte % (Auto) 0.2 % Immature Granulocyte # (Auto) 0.02 K/uL Hypochromasia PRESENT Prothrombin Time 10.1 SECONDS Prothromb Time International Ratio 1.0 Activated Partial Thromboplast Time 37.8 SECONDS Partial Thromboplastin Ratio 1.5 Sodium Level 136 mmol/L Potassium Level 4.4 mmol/L Chloride Level 96 mmol/L Carbon Dioxide Level 35 mmol/L Anion Gap 5.0 mmol/L Blood Urea Nitrogen 9 mg/dl Creatinine 0.56 mg/dl Est Creatinine Clear Calc Drug Dose 107.9 ml/min Estimated GFR () 121.7 Estimated GFR (Non- 105.0 BUN/Creatinine Ratio 16.5 Random Glucose 114 mg/dl Calcium Level 8.7 mg/dl Magnesium Level 2.0 mg/dl Total Bilirubin 0.3 mg/dl Aspartate Amino Transf (AST/SGOT) 10 U/L Alanine Aminotransferase (ALT/SGPT) 12 U/L Alkaline Phosphatase 78 U/L Troponin I < 0.015 ng/ml Pro-B-Type Natriuretic Peptide 1971 pg/ml Total Protein 7.2 gm/dl Albumin 2.8 gm/dl Globulin 4.4 gm/dl Albumin/Globulin Ratio 0.6 Lipase 98 U/L Thyroid Stimulating Hormone (TSH) 1.850 uIu/ml Arterial Blood pH 7.37 Arterial Blood Partial Pressure CO2 63 mmHg Arterial Blood Partial Pressure O2 75 mm/Hg Arterial Blood HCO3 35 mmol/L Arterial Blood Oxygen Saturation 92.2 % Arterial Blood Base Excess 8.4 mEq/L Arterial Blood Gas Delivery 4.5L Gui Test POS Bedside Glucose 126 mg/dl Test 06/28/17 07:53 06/28/17 11:03 06/28/17 11:55 06/28/17 16:13 Absolute Reticulocyte Count 0.07 10^6/uL Percent Reticulocyte Count 2.1 % Iron Level 24 mcg/dl Total Iron Binding Capacity 213 mcg/dl Transferrin 159 mg/dl Transferrin % Saturation 11 % Ferritin 300.7 ng/ml Troponin I < 0.015 ng/ml Vitamin B12 Level 1886 pg/mL Folate > 24.00 ng/mL Bedside Glucose 129 mg/dl 128 mg/dl Hemoglobin 8.4 g/dL Hematocrit 27.4 % Assessment & Plan ACUTE ON CHORNIC RESPIRATORY FAILURE: -suspected CHF but now unlikely the cause -BNP was elevated but no radiographic or clinical signs suggestive of fluid overload -TTE shows preserved EF and no diastolic dysfunction -has had previous admissions for bronchiectasis exacerbation with mucoid Impactions and pneumonia -has long standing advanced bronchiectasis, COPD (never smoker) -chronic respiratory failure dependent on steroid and oxygen 2-4L NC at home -CTA: No PE, Diffuse bronchiectatic/emphysematous change with superimposed slightly progressive infiltrative and peribronchial thickening change. -Cardiology and Pulmonary consulted, appreciate recommendations -continue nebs ACUTE ANEMIA WITH GROSS BLOOD ON RECTAL EXAM -superimposed on chronic iron deficiency anemia as well as anemia from blood loss s/p recent TRINITY -GI consulted, suspected as being from hemorrhoids, would like patient to be stable from cardiopulmonary standpoint prior to any procedures -iron to be increased to TID -follow Hb STEROID INDUCED DM TYPE II: -last HbA1c: 6.0 % -on chronic hydrocortisone -Continue ISS, NPH -BSG AC and HS AVASCULAR NECROSIS OF RIGHT HIP S/P RIGHT TRINITY: -secondary to chronic steroid use -CT abd/pelvis showed incidental acetabular fracture, patient denies any falls or trauma -will consult Ortho for any further recommendations re: acute nondisplaced acetabular fracture -pain control -PT/OT DEPRESSION: -Continue zoloft HYPOGAMMAGLOBULINEMIA: -receives monthly injections Current Inpatient Medications: Current Inpatient Medications Medications (Trade) Dose Ordered Sig/Man Route Start Time Stop Time Status Last Admin Dose Admin Ioversol (Optiray 320) 100 ml UD PRN IV 06/28/17 00:30 07/02/17 00:29 Acetaminophen (Tylenol Tab) 650 mg Q4H PRN PO 06/28/17 04:30 07/28/17 04:29 Nitroglycerin (Nitrostat Tab) 0.4 mg UD PRN SL 06/28/17 04:30 07/28/17 04:29 Hydromorphone HCl (Dilaudid Inj) 0.5 mg Q3H PRN IV 06/28/17 04:30 07/12/17 04:29 Prochlorperazine Edisylate 5 mg/ Syringe 5 ml @ 5 mls/min Q6H PRN IV 06/28/17 04:30 07/28/17 04:29 Insulin Aspart (novoLOG ASPART) SLIDING SCALE If C... ACHS SC 06/28/17 11:00 07/28/17 10:59 Glucose (Glucose 40% Gel) 15-30 GRAMS 15 GRAMS... UD PRN PO 06/28/17 04:30 07/28/17 04:29 Glucose (Glucose Chew Tab) 4-8 Tablets 4 Tabl... UD PRN PO 06/28/17 04:30 07/28/17 04:29 Dextrose (Dextrose 50% 50ML Syringe) 25-50ML OF 50% DW IV FOR... UD PRN IV 06/28/17 04:30 07/28/17 04:29 Glucagon (Glucagon Inj) 1 mg UD PRN SQ 06/28/17 04:30 07/28/17 04:29 Ferrous Sulfate (Feosol Tab) 325 mg HS PO 06/28/17 21:00 07/28/17 20:59 Fluticasone Propionate (Flonase Nasal [place]) 1 sprays QAM ESPERANZA 06/28/17 09:00 07/28/17 08:59 06/28/17 10:00 1 SPRAYS Folic Acid (Folvite Tab) 1 mg HS PO 06/28/17 21:00 07/28/17 20:59 Metoprolol Tartrate (Lopressor Tab) 50 mg BID PO 06/28/17 09:00 07/28/17 08:59 06/28/17 07:48 50 MG Multivitamins (Multivitamin Tab) 1 tab QAM PO 06/28/17 09:00 07/28/17 08:59 06/28/17 07:48 1 TAB Pantoprazole Sodium (Protonix Tab) 40 mg QAM PO 06/28/17 09:00 07/28/17 08:59 06/28/17 07:49 40 MG Sertraline HCl (Zoloft Tab) 50 mg QAM PO 06/28/17 09:00 07/28/17 08:59 06/28/17 07:48 50 MG Furosemide 40 mg/ Syringe 4 ml @ 4 mls/min DAILY IV 06/28/17 09:00 3/21/18 08:59 06/28/17 07:49 4 MLS/MIN Ipratropium [place] (Atrovent 0.02% 0.5MG/2.5ML Neb) 0.5 mg Q6R INH 06/28/17 09:00 07/28/17 08:59 06/28/17 13:40 0.5 MG Levalbuterol (Xopenex 1.25MG/ 0.5ML Neb) 1.25 mg Q6R INH 06/28/17 09:00 07/28/17 08:59 06/28/17 13:40 1.25 MG Ipratropium [place] (Atrovent 0.02% 0.5MG/2.5ML Neb) 0.5 mg Q4H PRN INH 06/28/17 05:30 07/28/17 05:29 Levalbuterol (Xopenex 1.25MG/ 0.5ML Neb) 1.25 mg Q4H PRN INH 06/28/17 05:30 07/28/17 05:29 Hydrocortisone (Proctozone Hc 2.5% Crm) 1 appln BID PRN EXT 06/28/17 12:45 07/28/17 12:44 Acetaminophen/ Hydrocodone Bitart ([place] 5/325 Tab) 1 tab Q8 PRN PO 06/28/17 14:30 07/12/17 14:29 Methylprednisolone Sodium Succinate 40 mg/Syringe 0.64 ml @ 1.5 mls/min Q8 IV 06/28/17 22:00 07/28/17 21:59
[2017-06-28] MEDS: HYDROCODONE/ACETAMIN 5/325MG TAB PO PRN (17:28)
[2017-06-28 18:40] LABS: HEMATOCRIT 27.4 % (37-47); HEMOGLOBIN 8.3 g/dL (12.0-16.0)
[2017-06-28] MEDS ORDERED: FERROUS SULFATE 325 MG TAB PO SCH (21:00)
[2017-06-28] MEDS: METHYLPREDNISOLONE IV 40 MG in SYRINGE 0 ML IV SCH (21:37)
[2017-06-29] VITALS (11 sets, daily range): BP systolic 112–132; BP diastolic 51–74; PULSE 68–109; TEMP 36.6–37.3; O2SAT 91–99
[2017-06-29] MEDS: LEVALBUTEROL 1.25MG/0.5ML NEB INH SCH ×4 (01:45→19:00)
[2017-06-29] MEDS: IPRATROPIUM BROMIDE NEB SOLN 0.02% 2.5 ML VIAL INH SCH ×4 (01:45→19:00)
[2017-06-29 04:41] LABS: CREATININE 0.58 mg/dl (0.60-1.20); POTASSIUM 4.1 mmol/L (3.5-5.1)
[2017-06-29 04:47] LABS: HEMATOCRIT 28.2 % (37-47); HEMOGLOBIN 8.8 g/dL (12.0-16.0); MEAN CELL VOLUME 85.5 fL (80-100); MEAN CORPUSCULAR HEMOGLOBIN 26.7 pg (25-34); MEAN CORPUSCULAR HGB CONC 31.2 g/dl (32-36); MEAN PLATELET VOLUME 8.6 fL (7.4-10.4); PLATELET COUNT 229 K/uL (130-400); RED CELL DISTRIBUTION WIDTH CV 16.6 % (11.5-14.5); RED CELL DISTRIBUTION WIDTH SD 52.3 fL (36.4-46.3); WHITE BLOOD COUNT 7.11 K/uL (4.8-10.8)
[2017-06-29 04:48] LABS: BASO % 0.1 %; BASO ABS # 0.01 K/uL (0-0.2); EOS % 0.3 %; EOS ABS # 0.02 K/uL (0-0.5); IG# 0.01 K/uL (0.00-0.02); LYMPH % 7.3 %; LYMPH ABS # 0.52 K/uL (1.2-3.4); MONO ABS # 0.07 K/uL (0.11-0.59); NEUT % 91.2 %; NEUT ABS # 6.48 K/uL (1.4-6.5)
[2017-06-29] MEDS: METHYLPREDNISOLONE IV 40 MG in SYRINGE 0 ML IV SCH ×2 (05:34→14:00)
--- NOTE | 2017-06-29 06:27 | Clinical Documentation Query ---
CLINICAL DOCUMENTATION QUERY 56 year old female who presents to the Emergency Room with complaints of persistent general shortness of breath. Patient continues to be treated with IV Lasix daily. In your clinical opinion is this patient being managed for: ( ) Acute preserve EF CHF treated with IV Lasix daily. ( x ) Not Agree ( ) Other explanation of clinical findings (Please Explain) ( ) Unable to determine (Please Define) ( ) Need to Discuss The medical record reflects the following clinical findings, treatment, and risk factors. Clinical Indicators: reported hypoxia of 68% on O2, Echo with normal EF, trace mitral and mild tricuspid regurgitation. Treatment: daily IV Lasix, telemetry, I/O's, daily weights. Risk Factors: Age, postoperative state. Please clarify and document your clinical opinion in the progress notes and discharge summary. Terms such as "probable", "suspected", "likely", "questionable", "possible", or "still to be ruled out" are acceptable. IF IN AGREEMENT, YOU MUST DOCUMENT ABOVE DIAGNOSTIC STATEMENT IN DAILY PROGRESS NOTES AND DISCHARGE SUMMARY. This document is not part of the patient's record. Thank You, Samuel Luna, LIAM [phone]
--- NOTE | 2017-06-29 07:43 | ORTHOPEDIC CONSULTATION ---
DATE OF CONSULTATION: 06/29/2017 CHIEF COMPLAINT: Two weeks status post right total hip arthroplasty with bronchiectasis. PROGRESS: Valery was seen in my office 2 days ago when she was about 2 weeks out from her hip replacement. Everything looked good at that time in the office and ant were removed. She has been on oxygen for several years. Unfortunately, there was a worsening of her bronchiectasis and she was readmitted to the hospital. During a CAT scan of the chest, abdomen and pelvis, a fracture was seen at the posterior superior corner of the acetabulum and I was consulted to evaluate. She did not have any falls. She says her hip feels good and she has no complaints. PHYSICAL EXAMINATION: RIGHT HIP: Her leg lengths are equal. She has good range of motion of her hip without any pain. She has active dorsiflexion and plantarflexion of her right ankle. The incision looks good. There is no drainage. CT scan reviewed of the right hip shows anatomic total hip arthroplasty. There is a fracture line that is seen lateral to the acetabular screw. When I compared this to immediate postoperative radiographs, a little fracture was present at that time as well. It is just a weakening of the wall in that area that often cracks, but it is not a stabilizing portion of the acetabulum, so it should be fine. IMPRESSION: Two weeks status post right total hip arthroplasty with exacerbation of bronchiectasis. PLAN: With regard to her hip, she is doing fine. This is nothing new. She can be up and weightbearing as tolerated on her hip and continue her normal postoperative course. Fortunately, a CAT scan showed no evidence of PE and the ultrasound of the lower extremity was negative. She is currently on heparin for DVT prophylaxis but I would like her converted back to aspirin 325 twice a day to finish out her 6-week course upon discharge. She is to have the PAIGE hose stockings on for a total of 6 weeks as well. She can follow up in my office as previously scheduled in about 4 weeks from now. If you have any further questions, please feel free to contact me on my personal cell phone at anytime, .
[2017-06-29] MEDS: MULTIVITAMIN TAB PO SCH (08:59)
[2017-06-29] MEDS: PANTOprazole SOD 40 MG TAB PO SCH ×2 (08:59→21:22)
[2017-06-29] MEDS: METOPROLOL TARTRATE 50 MG TAB PO SCH ×2 (09:00→21:22)
[2017-06-29] MEDS: INSULIN ASPART 100 UNITS/ML 3 ML PEN SC SCH ×4 (09:06→21:24)
[2017-06-29] MEDS: SERTRALINE HCL 50 MG TAB PO SCH (09:07)
[2017-06-29] MEDS: FLUTICASONE PROPIONATE NA SPR 16 GM BTL NAE SCH (09:08)
--- NOTE | 2017-06-29 10:42 | Cardiology Follow-Up ---
Subjective General Date of Service: Jun 29, 2017. Chief Complaint: CHF Pt evaluation today including: conversation w/ patient, physical exam, chart review, lab review, review of studies, review of inpatient medication list History of Present Illness Patient seen and examined. Chart, medications, and telemetry reviewed. Telemetry reveals sinus/sinus tachycardia with occasional PVCs and one run of ventricular bigeminy. Complaints include cough, chest congestion, wheezing. Peripheral edema has improved No chest pain, palpitations, orthopnea, PND, or syncope. June 28, 2017 TTE Interpretation Summary ([facility], Dr. Andre): Left ventricular systolic function is normal. Ejection Fraction = 65-70%. There is mild concentric left ventricular hypertrophy. Septal motion is consistent with post-operative state. Mild aortic regurgitation. There is trace mitral regurgitation. There is mild tricuspid regurgitation. The estimated systolic pulmonary arterial pressure is 44 mmHg. Pulse wave TDI of the anterior and posterior mitral annulas demonstrates normal LV relaxation EKG dated and timed 29-JUN-2017 @ 06:30:56: Sinus rhythm with sinus arrhythmia with short IN. Stable ST & T wave abnormality (inferior, anterolateral). Allergies Coded Allergies: Oxycodone (Verified Allergy, Mild, 0, 06/28/17) depression Albuterol (Verified Adverse Reaction, Mild, CHEST PAIN, LEVALBUTEROL OK, ) PT STATES "IF TAKE TOO MUCH DEVELOPS CHEST PAIN". TOLERATE LEVALBUTEROL 04/201506/14/17 - Patient reports that she does take albuterol at home, just not too frequently. Social History Smoking Status: Never Smoker Hx Tobacco Use In Past Year?: No Hx Alcohol Use - Type And Amou: No Hx Substance Use - Type And Am: No Problem List Medical Problems: (1) Acute and chronic respiratory failure with hypercapnia Status: Acute (2) Atrial fibrillation with rapid ventricular response Status: Acute (3) Atypical pneumonia Status: Acute (4) Bronchiectasis Status: Acute (5) Bronchiectasis Status: Acute (6) Bronchiectasis Status: Chronic (7) Bronchiectasis Status: Acute (8) Bronchitis Status: Acute (9) Chronic lung disease Status: Acute (10) COPD exacerbation Status: Acute (11) Dyspnea Status: Acute (12) Dyspnea Status: Acute (13) Elevated brain natriuretic peptide (BNP) level Status: Acute (14) Fever Status: Acute (15) Fever Status: Acute (16) Hypoxia Status: Acute (17) Hypoxia Status: Acute (18) Hypoxia Status: Acute (19) Hypoxia Status: Acute (20) PNA (pneumonia) Status: Acute (21) PNA (pneumonia) Status: Acute (22) Pneumonia Status: Acute (23) Pneumonia Status: Acute (24) Pneumonia Status: Acute (25) Sepsis Status: Acute (26) SOB (shortness of breath) Status: Acute Review of Systems Respiratory: + cough, + sputum, + dyspnea on exertion, No wheezing, No shortness of breath, No dyspnea at rest, No hemoptysis Cardiac: No chest pain, No orthopnea, No PND, No edema, No palpitations Physical Exam Vital Signs Last Vital Signs Documentation Date Time Temp Pulse Resp B/P (MAP) Pulse Ox O2 Delivery O2 Flow Rate FiO2 06/29/17 08:00 Nasal Cannula 06/29/17 07:52 37.0 74 18 132/51 (78) 99 06/29/17 07:10 4.0 Physical Exam Constitutional: Level of Distress: NAD, chronically ill Psychiatric: Mental Status: active & alert Orientation: to time, to place, to person Memory: recent memory normal, remote memory normal Head: normocephalic, atraumatic Eyes: Pupils: PERRLA Neck: pertinent finding (Normal JVP) Lungs: Respiratory effort: dyspneic Auscultation: deminished air movement, decreased breath sounds, expiratory wheezing, dry rales/crackles Cardiovascular: Heart Auscultation: normal S1, normal S2, no murmurs, tachycardia Abdomen: Bowel Sounds: normal Extremities: no cyanosis, no varicosities, edema (Minimal edema on the right. No edema on the left. ) Neurologic: Cranial Nerves: grossly intact Assessment and Plan Assessment and Plan Admission with recurrent acute respiratory failure More pronounced EKG changes, likely aggravated by the acute respiratory failure and symptomatic anemia History of angiographically normal coronary arteries by prior catheterization, negative nuclear stress testing within the past year. Examination without evidence of acute decompensated heart failure Resting echocardiography this admission with normal to hyperdynamic LV systolic function, normal diastolic function, normal RV function, no significant valvular heart disease History of atrial septal defect status post repair in her mid 20's. RECOMMENDATIONS: Discontinue IV furosemide. Continue chronic beta-kleber therapy given her history of chronic sinus tachycardia and brief asymptomatic salvos of SVT Please call with any further questions or concerns. Cardiology attending physician: Patient seen and examined at the bedside. Respiratory status improved. No edema. Denies orthopnea or PND. Denies chest discomfort. Physical exam: VSS. General: NAD, awake alert and oriented 3. Heart: Regular , borderline tachycardic, no murmur, rub, gallop. Lungs: Bilateral expiratory wheeze, scattered rhonchi. No rales. Extremities: No edema. A/P: Agree with above PA-C, history, physical exam, assessment and plan. Patient does not appear overtly volume overloaded per examination. Diuretic therapy discontinued. Continue current medications. No further inpatient cardiac testing at this time. Cardiology will sign off. Please call with questions. Cuate Andre DO, [facility] Laboratory Results Last 24 Hours Test 06/28/17 11:03 06/28/17 11:55 06/28/17 16:13 06/28/17 18:25 Bedside Glucose 129 mg/dl 128 mg/dl Hemoglobin 8.4 g/dL 8.3 g/dL Hematocrit 27.4 % 27.4 % Test 06/28/17 20:05 06/29/17 04:14 06/29/17 05:33 06/29/17 06:58 Bedside Glucose 128 mg/dl 191 mg/dl 200 mg/dl White Blood Count 7.11 K/uL Red Blood Count 3.30 M/uL Hemoglobin 8.8 g/dL Hematocrit 28.2 % Mean Corpuscular Volume 85.5 fL Mean Corpuscular Hemoglobin 26.7 pg Mean Corpuscular Hemoglobin Concent 31.2 g/dl Platelet Count 229 K/uL Mean Platelet Volume 8.6 fL Neutrophils (%) (Auto) 91.2 % Lymphocytes (%) (Auto) 7.3 % Monocytes (%) (Auto) 1.0 % Eosinophils (%) (Auto) 0.3 % Basophils (%) (Auto) 0.1 % Neutrophils # (Auto) 6.48 K/uL Lymphocytes # (Auto) 0.52 K/uL Monocytes # (Auto) 0.07 K/uL Eosinophils # (Auto) 0.02 K/uL Basophils # (Auto) 0.01 K/uL RDW Standard Deviation 52.3 fL RDW Coefficient of Variation 16.6 % Immature Granulocyte % (Auto) 0.1 % Immature Granulocyte # (Auto) 0.01 K/uL Red Blood Cell Morphology Unremarkable Sodium Level 135 mmol/L Potassium Level 4.1 mmol/L Chloride Level 93 mmol/L Carbon Dioxide Level 39 mmol/L Anion Gap 3.0 mmol/L Blood Urea Nitrogen 11 mg/dl Creatinine 0.58 mg/dl Est Creatinine Clear Calc Drug Dose 107.1 ml/min Estimated GFR () 120.3 Estimated GFR (Non- 103.8 BUN/Creatinine Ratio 18.1 Random Glucose 173 mg/dl Calcium Level 9.0 mg/dl
--- NOTE | 2017-06-29 11:21 | Gastroenterology Progress Note ---
Progress Note Date of Service: Jun 29, 2017 Subjective Pt evaluation today including: conversation w/ patient, physical exam, chart review, lab review, review of inpatient medication list Pt said breathing better. Had some BMs overnight denies any diarrhea or rectal bleeding. No N/V, abd pain. H/H improving. Review of Systems Constitutional: No fever, No chills Respiratory: + shortness of breath (better), No cough Cardiac: No chest pain Abdomen: No pain, No nausea, No vomiting, No diarrhea, No GI bleeding Medications Current Inpatient Medications Medications (Trade) Dose Ordered Sig/Man Route Start Time Stop Time Status Last Admin Dose Admin Ioversol (Optiray 320) 100 ml UD PRN IV 06/28/17 00:30 07/02/17 00:29 Acetaminophen (Tylenol Tab) 650 mg Q4H PRN PO 06/28/17 04:30 07/28/17 04:29 Nitroglycerin (Nitrostat Tab) 0.4 mg UD PRN SL 06/28/17 04:30 07/28/17 04:29 Hydromorphone HCl (Dilaudid Inj) 0.5 mg Q3H PRN IV 06/28/17 04:30 07/12/17 04:29 Prochlorperazine Edisylate 5 mg/ Syringe 5 ml @ 5 mls/min Q6H PRN IV 06/28/17 04:30 07/28/17 04:29 06/28/17 17:24 5 MLS/MIN Insulin Aspart (novoLOG ASPART) SLIDING SCALE If C... ACHS SC 06/28/17 11:00 07/28/17 10:59 06/29/17 09:06 1 UNITS Glucose (Glucose 40% Gel) 15-30 GRAMS 15 GRAMS... UD PRN PO 06/28/17 04:30 07/28/17 04:29 Glucose (Glucose Chew Tab) 4-8 Tablets 4 Tabl... UD PRN PO 06/28/17 04:30 07/28/17 04:29 Dextrose (Dextrose 50% 50ML Syringe) 25-50ML OF 50% DW IV FOR... UD PRN IV 06/28/17 04:30 07/28/17 04:29 Glucagon (Glucagon Inj) 1 mg UD PRN SQ 06/28/17 04:30 07/28/17 04:29 Fluticasone Propionate (Flonase Nasal [place]) 1 sprays QAM ESPERANZA 06/28/17 09:00 07/28/17 08:59 06/29/17 09:08 1 SPRAYS Folic Acid (Folvite Tab) 1 mg HS PO 06/28/17 21:00 07/28/17 20:59 06/28/17 19:54 1 MG Metoprolol Tartrate (Lopressor Tab) 50 mg BID PO 06/28/17 09:00 07/28/17 08:59 06/29/17 09:00 50 MG Multivitamins (Multivitamin Tab) 1 tab QAM PO 06/28/17 09:00 07/28/17 08:59 06/29/17 08:59 1 TAB Sertraline HCl (Zoloft Tab) 50 mg QAM PO 06/28/17 09:00 07/28/17 08:59 06/29/17 09:07 50 MG Ipratropium [place] (Atrovent 0.02% 0.5MG/2.5ML Neb) 0.5 mg Q6R INH 06/28/17 09:00 07/28/17 08:59 06/29/17 07:09 0.5 MG Levalbuterol (Xopenex 1.25MG/ 0.5ML Neb) 1.25 mg Q6R INH 06/28/17 09:00 07/28/17 08:59 06/29/17 07:09 1.25 MG Ipratropium [place] (Atrovent 0.02% 0.5MG/2.5ML Neb) 0.5 mg Q4H PRN INH 06/28/17 05:30 07/28/17 05:29 Levalbuterol (Xopenex 1.25MG/ 0.5ML Neb) 1.25 mg Q4H PRN INH 06/28/17 05:30 07/28/17 05:29 Hydrocortisone (Proctozone Hc 2.5% Crm) 1 appln BID PRN EXT 06/28/17 12:45 07/28/17 12:44 Acetaminophen/ Hydrocodone Bitart ([place] 5/325 Tab) 1 tab Q8 PRN PO 06/28/17 14:30 07/12/17 14:29 06/28/17 17:28 1 TAB Methylprednisolone Sodium Succinate 40 mg/Syringe 0.64 ml @ 1.5 mls/min Q8 IV 06/28/17 22:00 07/28/17 21:59 06/29/17 05:34 1.5 MLS/MIN Heparin Sodium (Porcine) (Heparin 100 Unit/ml 5ml Flush) 5 ml PRN PRN IV 06/28/17 23:45 07/28/17 23:44 Pantoprazole Sodium (Protonix Tab) 40 mg BID PO 06/29/17 21:00 07/28/17 08:59 Ferrous Sulfate (Feosol Tab) 325 mg TIDM PO 06/29/17 11:30 07/28/17 20:59 Objective Vital Signs Date Time Temp Pulse Resp B/P (MAP) Pulse Ox O2 Delivery O2 Flow Rate FiO2 06/29/17 08:00 Nasal Cannula 06/29/17 07:52 37.0 74 18 132/51 (78) 99 06/29/17 07:10 68 18 97 Nasal Cannula 4.0 06/29/17 03:45 Nasal Cannula 4.0 06/29/17 03:45 36.6 85 22 116/72 (87) 97 Nasal Cannula 4.0 06/29/17 01:45 88 18 98 Nasal Cannula 4.0 06/29/17 00:00 Nasal Cannula 5.0 06/28/17 23:40 37.2 73 17 113/72 (86) 96 Nasal Cannula 4.0 06/28/17 20:00 Nasal Cannula 5.0 06/28/17 19:50 87 18 98 Nasal Cannula 4.0 06/28/17 19:09 36.8 91 20 128/81 (97) 98 Nasal Cannula 3.5 06/28/17 16:00 95 Nasal Cannula 5.0 06/28/17 15:35 37.0 94 22 119/75 (90) 98 Nasal Cannula 3.5 06/28/17 13:42 76 18 93 Nasal Cannula 4.0 06/28/17 12:00 94 Nasal Cannula 5.0 06/28/17 11:34 36.8 78 17 117/73 (88) 92 Nasal Cannula 5.0 Physical Exam Eyes: normal inspection, PERRL, EOMI Neck: supple, no JVD, trachea midline Respiratory/Chest: + crackles (fine), + wheezing Cardiovascular: regular rate, rhythm, no edema, no murmur Abdomen: normal bowel sounds, non tender, soft Extremities: normal inspection Neurologic/Psych: alert, normal mood/affect, oriented x 3 Skin: normal color, no jaundice, no rash Laboratory Results Last 24 Hours Test 06/28/17 11:55 06/28/17 16:13 06/28/17 18:25 06/28/17 20:05 Hemoglobin 8.4 g/dL 8.3 g/dL Hematocrit 27.4 % 27.4 % Bedside Glucose 128 mg/dl 128 mg/dl Test 06/29/17 04:14 06/29/17 05:33 06/29/17 06:58 White Blood Count 7.11 K/uL Red Blood Count 3.30 M/uL Hemoglobin 8.8 g/dL Hematocrit 28.2 % Mean Corpuscular Volume 85.5 fL Mean Corpuscular Hemoglobin 26.7 pg Mean Corpuscular Hemoglobin Concent 31.2 g/dl Platelet Count 229 K/uL Mean Platelet Volume 8.6 fL Neutrophils (%) (Auto) 91.2 % Lymphocytes (%) (Auto) 7.3 % Monocytes (%) (Auto) 1.0 % Eosinophils (%) (Auto) 0.3 % Basophils (%) (Auto) 0.1 % Neutrophils # (Auto) 6.48 K/uL Lymphocytes # (Auto) 0.52 K/uL Monocytes # (Auto) 0.07 K/uL Eosinophils # (Auto) 0.02 K/uL Basophils # (Auto) 0.01 K/uL RDW Standard Deviation 52.3 fL RDW Coefficient of Variation 16.6 % Immature Granulocyte % (Auto) 0.1 % Immature Granulocyte # (Auto) 0.01 K/uL Red Blood Cell Morphology Unremarkable Sodium Level 135 mmol/L Potassium Level 4.1 mmol/L Chloride Level 93 mmol/L Carbon Dioxide Level 39 mmol/L Anion Gap 3.0 mmol/L Blood Urea Nitrogen 11 mg/dl Creatinine 0.58 mg/dl Est Creatinine Clear Calc Drug Dose 107.1 ml/min Estimated GFR () 120.3 Estimated GFR (Non- 103.8 BUN/Creatinine Ratio 18.1 Random Glucose 173 mg/dl Calcium Level 9.0 mg/dl Bedside Glucose 191 mg/dl 200 mg/dl Assessment and Plan Patient is a 56 year old female currently admitted for acute on chronic respiratory distress, also being evaluated for possible new onset CHF, seen for lower GI bleed. She has chronic anemia and admission labs showed lower H/H than baseline. She does admit to intermittent hematochezia, with bowel movements which she attributed to hemorrhoids. Rectal exam by myself w/o finding of fissures, rectal mass though she has small ext hemorrhoids. She is w/o abd pain , n/v, CT scan w/o acute bowel pathology. Previous colonoscopies w/ findings of hemorrhoids but otherwise normal, no signs of IBD. Continue w/o signs of GI bleeding, pain or n/v. H/H improving. Plans - Monitor H/H and transfuse prn; spoke w primary team to recommend increase of iron supplements. - Hydrocortisone rectal cream prn hemorrhoid bleed. - Did discuss possible EGD +/- colonoscopy evals with pt given her anemia ( which could also be from recent hip surgery). Not urgent and if not improved to baseline blood ct, may consider outpt endoscopic evals. - Will sign off; call if new questions/concerns arise.
[2017-06-29] MEDS: FERROUS SULFATE 325 MG TAB PO SCH ×2 (11:48→17:17)
--- NOTE | 2017-06-29 18:57 | Progress Note ---
Medicine Progress Note Date & Time of Visit: Jun 29, 2017 at 18:57. Subjective Patient doing better, denies any complaints other than being sleepy. Was seen earlier this morning after breakfast. No overnight events noted. No events on tele. Objective Last 8 Hrs Date Time Temp Pulse Resp B/P (MAP) Pulse Ox O2 Delivery O2 Flow Rate FiO2 06/29/17 17:08 37.3 107 18 116/71 (86) 91 Room Air 3.0 06/29/17 16:00 96 Nasal Cannula 4.0 06/29/17 12:00 Nasal Cannula 06/29/17 11:53 94 18 112/68 (83) 96 Physical Exam: GENERAL: Patient is in no acute distress. HEENT: No acute trauma, normocephalic atraumatic, mucous membranes moist, no nasal congestion, no scleral icterus. NECK: No stridor, trachea is midline. LUNGS: Diminished bilaterally, mild expiratory wheeze, no rhonchi, breath sounds equal. HEART: Without murmurs gallops or rubs, regular rate and rhythm. ABDOMEN: Soft, nontender, bowel sounds positive EXTREMITIES: No cyanosis or edema, mild right hip soreness with ROM NEUROLOGIC: Oriented x 3, no acute motor or sensory deficits, no focal weakness. SKIN: No rash, no jaundice, no diaphoresis. Laboratory Results: Last 24 Hours Test 06/28/17 20:05 06/29/17 04:14 06/29/17 05:33 06/29/17 06:58 Bedside Glucose 128 mg/dl 191 mg/dl 200 mg/dl White Blood Count 7.11 K/uL Red Blood Count 3.30 M/uL Hemoglobin 8.8 g/dL Hematocrit 28.2 % Mean Corpuscular Volume 85.5 fL Mean Corpuscular Hemoglobin 26.7 pg Mean Corpuscular Hemoglobin Concent 31.2 g/dl Platelet Count 229 K/uL Mean Platelet Volume 8.6 fL Neutrophils (%) (Auto) 91.2 % Lymphocytes (%) (Auto) 7.3 % Monocytes (%) (Auto) 1.0 % Eosinophils (%) (Auto) 0.3 % Basophils (%) (Auto) 0.1 % Neutrophils # (Auto) 6.48 K/uL Lymphocytes # (Auto) 0.52 K/uL Monocytes # (Auto) 0.07 K/uL Eosinophils # (Auto) 0.02 K/uL Basophils # (Auto) 0.01 K/uL RDW Standard Deviation 52.3 fL RDW Coefficient of Variation 16.6 % Immature Granulocyte % (Auto) 0.1 % Immature Granulocyte # (Auto) 0.01 K/uL Red Blood Cell Morphology Unremarkable Sodium Level 135 mmol/L Potassium Level 4.1 mmol/L Chloride Level 93 mmol/L Carbon Dioxide Level 39 mmol/L Anion Gap 3.0 mmol/L Blood Urea Nitrogen 11 mg/dl Creatinine 0.58 mg/dl Est Creatinine Clear Calc Drug Dose 107.1 ml/min Estimated GFR () 120.3 Estimated GFR (Non- 103.8 BUN/Creatinine Ratio 18.1 Random Glucose 173 mg/dl Calcium Level 9.0 mg/dl Test 06/29/17 11:23 06/29/17 16:25 Bedside Glucose 259 mg/dl 161 mg/dl Assessment & Plan ACUTE ON CHRONIC RESPIRATORY FAILURE: -suspected CHF but now unlikely the cause -BNP was elevated but no radiographic or clinical signs suggestive of fluid overload -TTE shows preserved EF and no diastolic dysfunction; lasix stopped -has had previous admissions for bronchiectasis exacerbation with mucoid Impactions and pneumonia -has long standing advanced bronchiectasis, COPD (never smoker) -chronic respiratory failure dependent on steroid and oxygen 2-4L NC at home -CTA: No PE, Diffuse bronchiectatic/emphysematous change with superimposed slightly progressive infiltrative and peribronchial thickening change. -Cardiology and Pulmonary consulted, appreciate recommendations -continue nebs -Patient was offered a bronch but did not feel she needed one at this time -patient was started on vibration vest, IV steroids, and nebulized saline per Pulm ACUTE ANEMIA WITH GROSS BLOOD ON RECTAL EXAM -superimposed on chronic iron deficiency anemia as well as anemia from blood loss s/p recent TRINITY -GI consulted, suspected as being from hemorrhoids, would like patient to be stable from cardiopulmonary standpoint prior to any procedures -iron increased to TID -follow Hb, maintaining in the 8's STEROID INDUCED DM TYPE II: -last HbA1c: 6.0 % -on chronic hydrocortisone -Continue ISS, NPH -BSG AC and HS AVASCULAR NECROSIS OF RIGHT HIP S/P RIGHT TRINITY: -secondary to chronic steroid use -CT abd/pelvis showed incidental acetabular fracture, patient denies any falls or trauma -will consult Ortho for any further recommendations re: acute nondisplaced acetabular fracture -pain control -PT/OT DEPRESSION: -Continue zoloft HYPOGAMMAGLOBULINEMIA: -receives monthly injections Current Inpatient Medications: Current Inpatient Medications Medications (Trade) Dose Ordered Sig/Man Route Start Time Stop Time Status Last Admin Dose Admin Ioversol (Optiray 320) 100 ml UD PRN IV 06/28/17 00:30 07/02/17 00:29 Acetaminophen (Tylenol Tab) 650 mg Q4H PRN PO 06/28/17 04:30 07/28/17 04:29 Nitroglycerin (Nitrostat Tab) 0.4 mg UD PRN SL 06/28/17 04:30 07/28/17 04:29 Hydromorphone HCl (Dilaudid Inj) 0.5 mg Q3H PRN IV 06/28/17 04:30 07/12/17 04:29 Prochlorperazine Edisylate 5 mg/ Syringe 5 ml @ 5 mls/min Q6H PRN IV 06/28/17 04:30 07/28/17 04:29 06/28/17 17:24 5 MLS/MIN Insulin Aspart (novoLOG ASPART) SLIDING SCALE If C... ACHS SC 06/28/17 11:00 07/28/17 10:59 06/29/17 11:54 4 UNITS Glucose (Glucose 40% Gel) 15-30 GRAMS 15 GRAMS... UD PRN PO 06/28/17 04:30 07/28/17 04:29 Glucose (Glucose Chew Tab) 4-8 Tablets 4 Tabl... UD PRN PO 06/28/17 04:30 07/28/17 04:29 Dextrose (Dextrose 50% 50ML Syringe) 25-50ML OF 50% DW IV FOR... UD PRN IV 06/28/17 04:30 07/28/17 04:29 Glucagon (Glucagon Inj) 1 mg UD PRN SQ 06/28/17 04:30 07/28/17 04:29 Fluticasone Propionate (Flonase Nasal [place]) 1 sprays QAM ESPERANZA 06/28/17 09:00 07/28/17 08:59 06/29/17 09:08 1 SPRAYS Folic Acid (Folvite Tab) 1 mg HS PO 06/28/17 21:00 07/28/17 20:59 06/28/17 19:54 1 MG Metoprolol Tartrate (Lopressor Tab) 50 mg BID PO 06/28/17 09:00 07/28/17 08:59 06/29/17 09:00 50 MG Multivitamins (Multivitamin Tab) 1 tab QAM PO 06/28/17 09:00 07/28/17 08:59 06/29/17 08:59 1 TAB Sertraline HCl (Zoloft Tab) 50 mg QAM PO 06/28/17 09:00 07/28/17 08:59 06/29/17 09:07 50 MG Ipratropium [place] (Atrovent 0.02% 0.5MG/2.5ML Neb) 0.5 mg Q6R INH 06/28/17 09:00 07/28/17 08:59 06/29/17 14:13 0.5 MG Levalbuterol (Xopenex 1.25MG/ 0.5ML Neb) 1.25 mg Q6R INH 06/28/17 09:00 07/28/17 08:59 06/29/17 14:13 1.25 MG Ipratropium [place] (Atrovent 0.02% 0.5MG/2.5ML Neb) 0.5 mg Q4H PRN INH 06/28/17 05:30 07/28/17 05:29 Levalbuterol (Xopenex 1.25MG/ 0.5ML Neb) 1.25 mg Q4H PRN INH 06/28/17 05:30 07/28/17 05:29 Hydrocortisone (Proctozone Hc 2.5% Crm) 1 appln BID PRN EXT 06/28/17 12:45 07/28/17 12:44 Acetaminophen/ Hydrocodone Bitart ([place] 5/325 Tab) 1 tab Q8 PRN PO 06/28/17 14:30 07/12/17 14:29 06/28/17 17:28 1 TAB Methylprednisolone Sodium Succinate 40 mg/Syringe 0.64 ml @ 1.5 mls/min Q8 IV 06/28/17 22:00 07/28/17 21:59 06/29/17 14:00 1.5 MLS/MIN Heparin Sodium (Porcine) (Heparin 100 Unit/ml 5ml Flush) 5 ml PRN PRN IV 06/28/17 23:45 07/28/17 23:44 Pantoprazole Sodium (Protonix Tab) 40 mg BID PO 06/29/17 21:00 07/28/17 08:59 Ferrous Sulfate (Feosol Tab) 325 mg TIDM PO 06/29/17 11:30 07/28/17 20:59 06/29/17 17:17 325 MG
--- NOTE | 2017-06-29 19:03 | Pulmonology Progress Note ---
Pulmonary Progress Note Date of Service Jun 29, 2017. Attending Dr. Sales Subjective The patient continued to have cough, she has been using the vest even at home, on this admission as well. Her sputum is yellowish in color. No hemoptysis was reported. She is still short of breath even with ambulation. Objective Her physical exam on 06/29/2017 showed bilateral significant crackles as well as diffuse wheezing. S1-S2 regular rate and rhythm. O2 saturation maintained on oxygen. No edema. Assessment & Plan 1. Chronic bronchiectasis with exacerbation. 2. Chronic colonization with Acinetobacter. It was noted after reviewing her records, from 2 bronchoscopies one in February 2017 and the other from April 2017 that the patient developed garcia resistance to antibiotics with Acinetobacter that is resistant to most of the antibiotics including amikacin. 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 3. Chronic sinusitis. 4. Diabetes. 5. Avascular necrosis status post right total hip replacement. Plan: 1. I will continue with the steroids and increase the dose due to persistent wheezing to 40 mg IV every 6 hours. 2. If the patient is not improving and unable to raise her sputum, I will proceed with a bronchoscopy after discussing the procedure with her. 3. Glucose control. 4. Continue with bronchodilators. 5. Continue with vibrating vest. Thank you, will follow. Data Medications: Current Inpatient Medications Medications (Trade) Dose Ordered Sig/Man Route Start Time Stop Time Status Last Admin Dose Admin Ioversol (Optiray 320) 100 ml UD PRN IV 06/28/17 00:30 07/02/17 00:29 Acetaminophen (Tylenol Tab) 650 mg Q4H PRN PO 06/28/17 04:30 07/28/17 04:29 Nitroglycerin (Nitrostat Tab) 0.4 mg UD PRN SL 06/28/17 04:30 07/28/17 04:29 Hydromorphone HCl (Dilaudid Inj) 0.5 mg Q3H PRN IV 06/28/17 04:30 07/12/17 04:29 Prochlorperazine Edisylate 5 mg/ Syringe 5 ml @ 5 mls/min Q6H PRN IV 06/28/17 04:30 07/28/17 04:29 06/28/17 17:24 5 MLS/MIN Insulin Aspart (novoLOG ASPART) SLIDING SCALE If C... ACHS SC 06/28/17 11:00 07/28/17 10:59 06/29/17 11:54 4 UNITS Glucose (Glucose 40% Gel) 15-30 GRAMS 15 GRAMS... UD PRN PO 06/28/17 04:30 07/28/17 04:29 Glucose (Glucose Chew Tab) 4-8 Tablets 4 Tabl... UD PRN PO 06/28/17 04:30 07/28/17 04:29 Dextrose (Dextrose 50% 50ML Syringe) 25-50ML OF 50% DW IV FOR... UD PRN IV 06/28/17 04:30 07/28/17 04:29 Glucagon (Glucagon Inj) 1 mg UD PRN SQ 06/28/17 04:30 07/28/17 04:29 Fluticasone Propionate (Flonase Nasal [place]) 1 sprays QAM ESPERANZA 06/28/17 09:00 07/28/17 08:59 06/29/17 09:08 1 SPRAYS Folic Acid (Folvite Tab) 1 mg HS PO 06/28/17 21:00 07/28/17 20:59 06/28/17 19:54 1 MG Metoprolol Tartrate (Lopressor Tab) 50 mg BID PO 06/28/17 09:00 07/28/17 08:59 06/29/17 09:00 50 MG Multivitamins (Multivitamin Tab) 1 tab QAM PO 06/28/17 09:00 07/28/17 08:59 06/29/17 08:59 1 TAB Sertraline HCl (Zoloft Tab) 50 mg QAM PO 06/28/17 09:00 07/28/17 08:59 06/29/17 09:07 50 MG Ipratropium [place] (Atrovent 0.02% 0.5MG/2.5ML Neb) 0.5 mg Q6R INH 06/28/17 09:00 07/28/17 08:59 06/29/17 14:13 0.5 MG Levalbuterol (Xopenex 1.25MG/ 0.5ML Neb) 1.25 mg Q6R INH 06/28/17 09:00 07/28/17 08:59 06/29/17 14:13 1.25 MG Ipratropium [place] (Atrovent 0.02% 0.5MG/2.5ML Neb) 0.5 mg Q4H PRN INH 06/28/17 05:30 07/28/17 05:29 Levalbuterol (Xopenex 1.25MG/ 0.5ML Neb) 1.25 mg Q4H PRN INH 06/28/17 05:30 07/28/17 05:29 Hydrocortisone (Proctozone Hc 2.5% Crm) 1 appln BID PRN EXT 06/28/17 12:45 07/28/17 12:44 Acetaminophen/ Hydrocodone Bitart ([place] 5/325 Tab) 1 tab Q8 PRN PO 06/28/17 14:30 07/12/17 14:29 06/28/17 17:28 1 TAB Methylprednisolone Sodium Succinate 40 mg/Syringe 0.64 ml @ 1.5 mls/min Q8 IV 06/28/17 22:00 07/28/17 21:59 06/29/17 14:00 1.5 MLS/MIN Heparin Sodium (Porcine) (Heparin 100 Unit/ml 5ml Flush) 5 ml PRN PRN IV 06/28/17 23:45 07/28/17 23:44 Pantoprazole Sodium (Protonix Tab) 40 mg BID PO 06/29/17 21:00 07/28/17 08:59 Ferrous Sulfate (Feosol Tab) 325 mg TIDM PO 06/29/17 11:30 07/28/17 20:59 06/29/17 17:17 325 MG I & O: 24-Hour Column 06/30/17 07:59 Intake Total 600 ml Balance 600 ml Vital Signs: Date Time Temp Pulse Resp B/P (MAP) Pulse Ox O2 Delivery O2 Flow Rate FiO2 06/29/17 17:08 37.3 107 18 116/71 (86) 91 Room Air 3.0 06/29/17 16:00 96 Nasal Cannula 4.0 06/29/17 12:00 Nasal Cannula 06/29/17 11:53 94 18 112/68 (83) 96 06/29/17 08:00 Nasal Cannula 06/29/17 07:52 37.0 74 18 132/51 (78) 99 06/29/17 07:10 68 18 97 Nasal Cannula 4.0 06/29/17 03:45 Nasal Cannula 4.0 06/29/17 03:45 36.6 85 22 116/72 (87) 97 Nasal Cannula 4.0 06/29/17 01:45 88 18 98 Nasal Cannula 4.0 06/29/17 00:00 Nasal Cannula 5.0 06/28/17 23:40 37.2 73 17 113/72 (86) 96 Nasal Cannula 4.0 06/28/17 20:00 Nasal Cannula 5.0 06/28/17 19:50 87 18 98 Nasal Cannula 4.0 06/28/17 19:09 36.8 91 20 128/81 (97) 98 Nasal Cannula 3.5 Laboratory Results: Last 24 Hours Test 06/28/17 20:05 06/29/17 04:14 06/29/17 05:33 06/29/17 06:58 Bedside Glucose 128 mg/dl 191 mg/dl 200 mg/dl White Blood Count 7.11 K/uL Red Blood Count 3.30 M/uL Hemoglobin 8.8 g/dL Hematocrit 28.2 % Mean Corpuscular Volume 85.5 fL Mean Corpuscular Hemoglobin 26.7 pg Mean Corpuscular Hemoglobin Concent 31.2 g/dl Platelet Count 229 K/uL Mean Platelet Volume 8.6 fL Neutrophils (%) (Auto) 91.2 % Lymphocytes (%) (Auto) 7.3 % Monocytes (%) (Auto) 1.0 % Eosinophils (%) (Auto) 0.3 % Basophils (%) (Auto) 0.1 % Neutrophils # (Auto) 6.48 K/uL Lymphocytes # (Auto) 0.52 K/uL Monocytes # (Auto) 0.07 K/uL Eosinophils # (Auto) 0.02 K/uL Basophils # (Auto) 0.01 K/uL RDW Standard Deviation 52.3 fL RDW Coefficient of Variation 16.6 % Immature Granulocyte % (Auto) 0.1 % Immature Granulocyte # (Auto) 0.01 K/uL Red Blood Cell Morphology Unremarkable Sodium Level 135 mmol/L Potassium Level 4.1 mmol/L Chloride Level 93 mmol/L Carbon Dioxide Level 39 mmol/L Anion Gap 3.0 mmol/L Blood Urea Nitrogen 11 mg/dl Creatinine 0.58 mg/dl Est Creatinine Clear Calc Drug Dose 107.1 ml/min Estimated GFR () 120.3 Estimated GFR (Non- 103.8 BUN/Creatinine Ratio 18.1 Random Glucose 173 mg/dl Calcium Level 9.0 mg/dl Test 06/29/17 11:23 06/29/17 16:25 Bedside Glucose 259 mg/dl 161 mg/dl
[2017-06-30] VITALS (11 sets, daily range): BP systolic 119–137; BP diastolic 70–77; PULSE 65–84; TEMP 36.5–37.2; O2SAT 96–99
[2017-06-30] MEDS: METHYLPREDNISOLONE IV 40 MG in SYRINGE 0 ML IV SCH ×3 (00:29→11:51)
[2017-06-30] MEDS: IPRATROPIUM BROMIDE NEB SOLN 0.02% 2.5 ML VIAL INH SCH ×3 (01:44→14:56)
[2017-06-30] MEDS: LEVALBUTEROL 1.25MG/0.5ML NEB INH SCH ×3 (01:44→14:56)
[2017-06-30 03:08] LABS: EOS % 0.1 %; EOS ABS # 0.01 K/uL (0-0.5); HEMATOCRIT 27.1 % (37-47); HEMOGLOBIN 8.4 g/dL (12.0-16.0); IG# 0.03 K/uL (0.00-0.02); LYMPH % 8.5 %; MEAN CELL VOLUME 84.4 fL (80-100); MEAN CORPUSCULAR HEMOGLOBIN 26.2 pg (25-34); MEAN PLATELET VOLUME 8.9 fL (7.4-10.4); MONO % 3.2 %; NEUT % 87.9 %; NEUT ABS # 8.25 K/uL (1.4-6.5); PLATELET COUNT 258 K/uL (130-400); RED CELL DISTRIBUTION WIDTH CV 16.2 % (11.5-14.5); RED CELL DISTRIBUTION WIDTH SD 50.3 fL (36.4-46.3); WHITE BLOOD COUNT 9.39 K/uL (4.8-10.8)
[2017-06-30 03:45] LABS: ALBUMIN 3.1 gm/dl (3.4-5.0); ALKALINE PHOSPHATASE 78 U/L (45-117); ALT/SGPT 12 U/L (12-78); AST/SGOT 11 U/L (15-37); BLOOD UREA NITROGEN 14 mg/dl (7-18); CALCIUM 9.2 mg/dl (8.5-10.1); CARBON DIOXIDE 33 mmol/L (21-32); CREATININE 0.59 mg/dl (0.60-1.20); GLUCOSE 157 mg/dl (70-99); SODIUM 135 mmol/L (136-145); TOTAL PROTEIN 7.7 gm/dl (6.4-8.2)
[2017-06-30] MEDS: HYDROCODONE/ACETAMIN 5/325MG TAB PO PRN (04:26)
[2017-06-30] MEDS: METOPROLOL TARTRATE 50 MG TAB PO SCH (08:46)
[2017-06-30] MEDS: INSULIN ASPART 100 UNITS/ML 3 ML PEN SC SCH ×3 (08:48→17:23)
[2017-06-30] MEDS: FERROUS SULFATE 325 MG TAB PO SCH ×3 (08:48→17:15)
[2017-06-30] MEDS: PANTOprazole SOD 40 MG TAB PO SCH (08:52)
[2017-06-30] MEDS: FLUTICASONE PROPIONATE NA SPR 16 GM BTL NAE SCH (08:52)
[2017-06-30] MEDS: SERTRALINE HCL 50 MG TAB PO SCH (08:53)
[2017-06-30] MEDS: MULTIVITAMIN TAB PO SCH (09:40)
--- NOTE | 2017-06-30 15:55 | Progress Note ---
Medicine Progress Note Date & Time of Visit: Jun 30, 2017 at 15:54. Objective Last 8 Hrs Date Time Temp Pulse Resp B/P (MAP) Pulse Ox O2 Delivery O2 Flow Rate FiO2 06/30/17 15:25 36.9 84 18 128/70 (89) 98 Nasal Cannula 4.0 Humidified Oxygen 06/30/17 14:56 82 16 97 Nasal Cannula 3.0 06/30/17 12:00 99 Nasal Cannula 4.0 06/30/17 11:25 36.5 75 20 137/75 (95) 99 Nasal Cannula 4.0 06/30/17 08:00 96 Nasal Cannula 4.0 Physical Exam: GENERAL: Patient is in no acute distress. HEENT: No acute trauma, normocephalic atraumatic, mucous membranes moist, no nasal congestion, no scleral icterus. NECK: No stridor, trachea is midline. LUNGS: Diminished bilaterally, mild expiratory wheeze, no rhonchi, breath sounds equal. HEART: Without murmurs gallops or rubs, regular rate and rhythm. ABDOMEN: Soft, nontender, bowel sounds positive EXTREMITIES: No cyanosis or edema, mild right hip soreness with ROM NEUROLOGIC: Oriented x 3, no acute motor or sensory deficits, no focal weakness. SKIN: No rash, no jaundice, no diaphoresis. Laboratory Results: Last 24 Hours Test 06/29/17 16:25 06/29/17 20:16 06/30/17 02:50 06/30/17 06:43 Bedside Glucose 161 mg/dl 230 mg/dl 213 mg/dl White Blood Count 9.39 K/uL Red Blood Count 3.21 M/uL Hemoglobin 8.4 g/dL Hematocrit 27.1 % Mean Corpuscular Volume 84.4 fL Mean Corpuscular Hemoglobin 26.2 pg Mean Corpuscular Hemoglobin Concent 31.0 g/dl Platelet Count 258 K/uL Mean Platelet Volume 8.9 fL Neutrophils (%) (Auto) 87.9 % Lymphocytes (%) (Auto) 8.5 % Monocytes (%) (Auto) 3.2 % Eosinophils (%) (Auto) 0.1 % Basophils (%) (Auto) 0.0 % Neutrophils # (Auto) 8.25 K/uL Lymphocytes # (Auto) 0.80 K/uL Monocytes # (Auto) 0.30 K/uL Eosinophils # (Auto) 0.01 K/uL Basophils # (Auto) 0.00 K/uL RDW Standard Deviation 50.3 fL RDW Coefficient of Variation 16.2 % Immature Granulocyte % (Auto) 0.3 % Immature Granulocyte # (Auto) 0.03 K/uL Red Blood Cell Morphology Unremarkable Sodium Level 135 mmol/L Potassium Level 4.0 mmol/L Chloride Level 96 mmol/L Carbon Dioxide Level 33 mmol/L Anion Gap 6.0 mmol/L Blood Urea Nitrogen 14 mg/dl Creatinine 0.59 mg/dl Est Creatinine Clear Calc Drug Dose 103.9 ml/min Estimated GFR () 119.6 Estimated GFR (Non- 103.2 BUN/Creatinine Ratio 23.1 Random Glucose 157 mg/dl Calcium Level 9.2 mg/dl Total Bilirubin 0.4 mg/dl Aspartate Amino Transf (AST/SGOT) 11 U/L Alanine Aminotransferase (ALT/SGPT) 12 U/L Alkaline Phosphatase 78 U/L Troponin I < 0.015 ng/ml Total Protein 7.7 gm/dl Albumin 3.1 gm/dl Globulin 4.6 gm/dl Albumin/Globulin Ratio 0.7 Test 06/30/17 11:20 Bedside Glucose 220 mg/dl Assessment & Plan ACUTE ON CHRONIC RESPIRATORY FAILURE: -suspected CHF but now unlikely the cause -BNP was elevated but no radiographic or clinical signs suggestive of fluid overload -TTE shows preserved EF and no diastolic dysfunction; lasix stopped -has had previous admissions for bronchiectasis exacerbation with mucoid Impactions and pneumonia -has long standing advanced bronchiectasis, COPD (never smoker) -chronic respiratory failure dependent on steroid and oxygen 2-4L NC at home -CTA: No PE, Diffuse bronchiectatic/emphysematous change with superimposed slightly progressive infiltrative and peribronchial thickening change. -Cardiology and Pulmonary consulted, appreciate recommendations -continue nebs -Patient was offered a bronch but did not feel she needed one at this time -patient was started on vibration vest, IV steroids, and nebulized saline per Pulm ACUTE ANEMIA WITH GROSS BLOOD ON RECTAL EXAM -superimposed on chronic iron deficiency anemia as well as anemia from blood loss s/p recent TRINITY -GI consulted, suspected as being from hemorrhoids, would like patient to be stable from cardiopulmonary standpoint prior to any procedures -iron increased to TID -follow Hb, maintaining in the 8's STEROID INDUCED DM TYPE II: -last HbA1c: 6.0 % -on chronic hydrocortisone -Continue ISS, NPH -BSG AC and HS AVASCULAR NECROSIS OF RIGHT HIP S/P RIGHT TRINITY: -secondary to chronic steroid use -CT abd/pelvis showed incidental acetabular fracture, patient denies any falls or trauma -will consult Ortho for any further recommendations re: acute nondisplaced acetabular fracture -pain control -PT/OT DEPRESSION: -Continue zoloft HYPOGAMMAGLOBULINEMIA: -receives monthly injections Current Inpatient Medications: Current Inpatient Medications Medications (Trade) Dose Ordered Sig/Man Route Start Time Stop Time Status Last Admin Dose Admin Ioversol (Optiray 320) 100 ml UD PRN IV 06/28/17 00:30 07/02/17 00:29 Acetaminophen (Tylenol Tab) 650 mg Q4H PRN PO 06/28/17 04:30 07/28/17 04:29 Nitroglycerin (Nitrostat Tab) 0.4 mg UD PRN SL 06/28/17 04:30 07/28/17 04:29 Hydromorphone HCl (Dilaudid Inj) 0.5 mg Q3H PRN IV 06/28/17 04:30 07/12/17 04:29 Prochlorperazine Edisylate 5 mg/ Syringe 5 ml @ 5 mls/min Q6H PRN IV 06/28/17 04:30 07/28/17 04:29 06/28/17 17:24 5 MLS/MIN Insulin Aspart (novoLOG ASPART) SLIDING SCALE If C... ACHS SC 06/28/17 11:00 07/28/17 10:59 06/30/17 11:52 2 UNITS Glucose (Glucose 40% Gel) 15-30 GRAMS 15 GRAMS... UD PRN PO 06/28/17 04:30 07/28/17 04:29 Glucose (Glucose Chew Tab) 4-8 Tablets 4 Tabl... UD PRN PO 06/28/17 04:30 07/28/17 04:29 Dextrose (Dextrose 50% 50ML Syringe) 25-50ML OF 50% DW IV FOR... UD PRN IV 06/28/17 04:30 07/28/17 04:29 Glucagon (Glucagon Inj) 1 mg UD PRN SQ 06/28/17 04:30 07/28/17 04:29 Fluticasone Propionate (Flonase Nasal [place]) 1 sprays QAM ESPERANZA 06/28/17 09:00 07/28/17 08:59 06/30/17 08:52 1 SPRAYS Folic Acid (Folvite Tab) 1 mg HS PO 06/28/17 21:00 07/28/17 20:59 06/29/17 21:21 1 MG Metoprolol Tartrate (Lopressor Tab) 50 mg BID PO 06/28/17 09:00 07/28/17 08:59 06/30/17 08:46 50 MG Multivitamins (Multivitamin Tab) 1 tab QAM PO 06/28/17 09:00 07/28/17 08:59 06/30/17 09:40 1 TAB Sertraline HCl (Zoloft Tab) 50 mg QAM PO 06/28/17 09:00 07/28/17 08:59 06/30/17 08:53 50 MG Ipratropium [place] (Atrovent 0.02% 0.5MG/2.5ML Neb) 0.5 mg Q6R INH 06/28/17 09:00 07/28/17 08:59 06/30/17 14:56 0.5 MG Levalbuterol (Xopenex 1.25MG/ 0.5ML Neb) 1.25 mg Q6R INH 06/28/17 09:00 07/28/17 08:59 06/30/17 14:56 1.25 MG Ipratropium [place] (Atrovent 0.02% 0.5MG/2.5ML Neb) 0.5 mg Q4H PRN INH 06/28/17 05:30 07/28/17 05:29 Levalbuterol (Xopenex 1.25MG/ 0.5ML Neb) 1.25 mg Q4H PRN INH 06/28/17 05:30 07/28/17 05:29 Hydrocortisone (Proctozone Hc 2.5% Crm) 1 appln BID PRN EXT 06/28/17 12:45 07/28/17 12:44 Acetaminophen/ Hydrocodone Bitart ([place] 5/325 Tab) 1 tab Q8 PRN PO 06/28/17 14:30 07/12/17 14:29 06/30/17 04:26 1 TAB Heparin Sodium (Porcine) (Heparin 100 Unit/ml 5ml Flush) 5 ml PRN PRN IV 06/28/17 23:45 07/28/17 23:44 06/30/17 00:30 5 ML Pantoprazole Sodium (Protonix Tab) 40 mg BID PO 06/29/17 21:00 07/28/17 08:59 06/30/17 08:52 40 MG Ferrous Sulfate (Feosol Tab) 325 mg TIDM PO 06/29/17 11:30 07/28/17 20:59 06/30/17 11:44 325 MG Methylprednisolone Sodium Succinate 40 mg/Syringe 0.64 ml @ 1.5 mls/min Q6 IV 06/30/17 00:00 07/28/17 21:59 06/30/17 11:51 1.5 MLS/MIN
--- NOTE | 2017-06-30 16:47 | Discharge Summary ---
Discharge Summary Date of Service Jun 30, 2017. Discharge Summary Admission Date: Jun 28, 2017 at 03:46 Discharge Disposition: Home Principal Diagnosis: Anemia, shortness of breath, acute exacerbation of bronchiectasis Pending Studies/Follow-Up: Hb check in 1 week; GI follow up, Pulm follow up, Ortho follow up Medication Reconciliation New Medications: Prednisone (Prednisone) 5 Mg Tab 5 MG PO UD, #72 TAB 40mg([id number]),35mg([id number]),30mg([id number]),25mg([id number]) ,20mg([id number]),15mg(8nyoz1oaw),10mg([id number]),[id number] Changed Medications: Ferrous Sulfate (Ferrous Sulfate) 325 Mg Tab 325 MG PO TIDM, #90 TABS (Changed from: HS) Pantoprazole (Protonix) 40 Mg Tab 40 MG PO BID, #60 TAB (Changed from: QAM) Continued Medications: Acetaminophen (Tylenol) 500 Mg Tab 1000 MG PO PRN, TAB Albuterol Sulf (Albuterol Sulfate) 2.5 Mg/3 Ml Nebu 1 DOSE INH Q4H PRN for Shortness of Breath Alendronate Sodium (Alendronate Sodium) 70 Mg Tab 70 MG PO , #4 Ascorbic Acid (Ascorbic Acid) 250 Mg Tab 250 MG PO HS Aspirin (Aspirin) 325 Mg Ectab 325 MG PO BID for 42 Days Calcium Carbonate-Vitamin D W/ (Caltrate 600 Plus) 1 Tab Tab 1 TAB PO QAM, TAB Cyanocobalamin (Vitamin B12) 1,000 Mcg Tab 1000 MCG PO QAM Fluticasone Propionate (Nasal) (Flonase Allergy Relief) 50 Mcg/Act Spr 2 SPRY ESPERAN[place] QAM Folic Acid (Folic Acid) 1 Mg Tab 1 MG PO HS Home O2 Therapy (Oxygen) Gas 2-4 LITERS NA DAILY Insulin Human NPH (Novolin N) 100 Units/Ml Susp 10 UNITS SQ QAM, #10 Magnesium Oxide (Mg Supplement (Magnesium) 400 Mg Cap 400 MG PO QAM Metoprolol Tartrate (Lopressor) (Lopressor) 50 Mg Tab 50 MG PO BID Multiple Vitamin (Multivitamin) 1 Tab Tab 1 TAB PO QAM, TAB Sertraline (Zoloft) 50 Mg Tab 50 MG PO QAM for 30 Days, #30 TAB 2 Refills Tiotropium [place] (Spiriva Respimat) 2.5 Mcg/Act Spr 2 PUFF INH QAM, INHALER Tramadol (Ultram) 50 Mg Tab 25 MG PO Q6, TAB [Immunoglobulin] () 1 DOSE INJ MONTHLY Discontinued Medications: Hydrocortisone (Cortef) 5 Mg Tab 7.5 MG PO QAM Ibuprofen (Advil) 200 Mg Tab 400 MG PO PRN, TAB Admission Information HPI (per Admitting provider): CHIEF COMPLAINT: Shortness of breath. HISTORY OF PRESENT ILLNESS: History was obtained from the patient and records. Medical history is significant for chronic respiratory failure secondary to steroid dependent bronchiectasis on home O2, HTN, DM2, insulin requiring chronic anemia (baseline hemoglobin of 10), history of ASD repair, Hypogammaglobulinemia, avascular necrosis of the right hip sp surgery on aspirin for DVT prophylaxis (06/2017). Recent confinement under Orthopedic service 2 weeks ago for right total hip arthroplasty for avascular necrosis. Patient was discharged on aspirin twice day for DVT prophylaxis at home. Intermittent hematochezia noted at home. Attributed by family to hemorrhoids. No hematemesis, coffee-ground emesis. Achy right-sided abdominal pain. The last 3 days. patient was more short of breath than usual, increasing more oxygen. Usual cough symptoms. Sleeping more than usual as per family. Right lower extremity is more swollen than usual. No chest pain. Patient was brought to the Emergency Room and received IV Lasix for possible congestion. MEDICAL HISTORY: As above. 2015 Colonoscopy was normal. 2D echo from May 2015 showed an EF of 66%, normal LV systolic function, LVH, dilated IVC with elevated right atrial pressure of 50 mmHg. No pericardial effusion. SURGERIES: She had right hip surgery, ASD repair, hysterectomy, appendectomy, cholecystectomy, sinus surgery, tonsillectomy, and adenectomy. HOME MEDICATIONS: Include ferrous sulfate, Flonase, folic acid, on home O2, Cortef, immunoglobulin, Advil, p.r.n. Novolin, magnesium, multivitamins, Lopressor, Protonix, Zoloft, Spiriva, and Ultram. ASA ALLERGIES: ALBUTEROL. Oxycodone FAMILY HISTORY: Heart disease and diabetes. PERSONAL AND SOCIAL HISTORY: Nonsmoker. No chronic ETOH intake , disabled. REVIEW OF SYSTEMS: As per HPI. All 10 systems reviewed. All other ROS negative. PHYSICAL EXAMINATION: VITAL SIGNS: Blood pressure was noted to be 130/80, DC 112 later 99 RR 29 later 18, temperature 36.8, and sats 78 later 95 on 5L. GENERAL: Noted to be in minimal respiratory distress. Cushingoid SKIN: Pallor and warm. HEENT: Pale palpebral conjunctivae, no ptosis. Dry mucosa. NECK: Short and supple. CHEST: Decreased breath sounds and scattered crackles. HEART: Regular rate and rhythm. No murmurs. ABDOMEN: Some distention and nontender. EXTREMITIES: Minimal RLE edema. Some tenderness in right. No other gross deformities. NEUROLOGIC: Coherent. No gross focality. RECTAL EXAM: Intact sphincter. Brown stool. Heme positive. Hospital Course ACUTE ON CHRONIC RESPIRATORY FAILURE: -suspected CHF but now unlikely the cause -BNP was elevated but no radiographic or clinical signs suggestive of fluid overload -TTE shows preserved EF and no diastolic dysfunction; lasix stopped -has had previous admissions for bronchiectasis exacerbation with mucoid Impactions and pneumonia -has long standing advanced bronchiectasis, COPD (never smoker) -chronic respiratory failure dependent on steroid and oxygen 2-4L NC at home -CTA: No PE, Diffuse bronchiectatic/emphysematous change with superimposed slightly progressive infiltrative and peribronchial thickening change. -Cardiology and Pulmonary consulted, appreciate recommendations -continue nebs at home -Patient was offered a bronch but did not feel she needed one at this time -patient was started on vibration vest, IV steroids, and nebulized saline per Pulm ACUTE ANEMIA WITH GROSS BLOOD ON RECTAL EXAM -superimposed on chronic iron deficiency anemia as well as anemia from blood loss s/p recent TRINITY -GI consulted, suspected as being from hemorrhoids, would like patient to be stable from cardiopulmonary standpoint prior to any procedures -iron increased to TID -follow Hb, maintaining in the 8's STEROID INDUCED DM TYPE II: -last HbA1c: 6.0 % -on chronic hydrocortisone -Continue ISS, NPH -BSG AC and HS AVASCULAR NECROSIS OF RIGHT HIP S/P RIGHT TRINITY: -secondary to chronic steroid use -CT abd/pelvis showed incidental acetabular fracture, patient denies any falls or trauma -will consult Ortho for any further recommendations re: acute nondisplaced acetabular fracture -pain control -PT/OT DEPRESSION: -Continue zoloft HYPOGAMMAGLOBULINEMIA: -receives monthly injections PHYSICAL EXAM ON DAY OF DISCHARGE: GENERAL: Patient is in no acute distress. HEENT: No acute trauma, normocephalic, mucous membranes moist, no nasal congestion, no scleral icterus. NECK: No stridor, trachea is midline. LUNGS: Diminished bilaterally, slight expiratory wheeze, no rhonchi, breath sounds equal. HEART: Without murmurs gallops or rubs, regular rate and rhythm. ABDOMEN: Soft, nontender, bowel sounds positive EXTREMITIES: No cyanosis or edema, full range of motion of all the joints without pain or difficulty, no signs for acute trauma. NEUROLOGIC: Oriented x 3, no acute motor or sensory deficits, no focal weakness. SKIN: No rash, no jaundice, no diaphoresis. Total time spent on discharge = 37 This includes examination of the patient, discharge planning, medication reconciliation, and communication with other providers. Discharge Instructions 06/30/17 02:50 Red Blood Count 3.21, Mean Corpuscular Volume 84.4, Mean Corpuscular Hemoglobin 26.2, Mean Corpuscular Hemoglobin Concent 31.0, Mean Platelet Volume 8.9, Neutrophils (%) (Auto) 87.9, Lymphocytes (%) (Auto) 8.5, Monocytes (%) (Auto) 3.2, Eosinophils (%) (Auto) 0.1, Basophils (%) (Auto) 0.0, Neutrophils # (Auto) 8.25, Lymphocytes # (Auto) 0.80, Monocytes # (Auto) 0.30, Eosinophils # (Auto) 0.01, Basophils # (Auto) 0.00 06/30/17 02:50 Test 06/30/17 02:50 06/30/17 11:20 White Blood Count 9.39 K/uL (4.8-10.8) Red Blood Count 3.21 M/uL (4.2-5.4) Hemoglobin 8.4 g/dL (12.0-16.0) Hematocrit 27.1 % (37-47) Mean Corpuscular Volume 84.4 fL (80-100) Mean Corpuscular Hemoglobin 26.2 pg (25-34) Mean Corpuscular Hemoglobin Concent 31.0 g/dl (32-36) Platelet Count 258 K/uL (130-400) Mean Platelet Volume 8.9 fL (7.4-10.4) Neutrophils (%) (Auto) 87.9 % Lymphocytes (%) (Auto) 8.5 % Monocytes (%) (Auto) 3.2 % Eosinophils (%) (Auto) 0.1 % Basophils (%) (Auto) 0.0 % Neutrophils # (Auto) 8.25 K/uL (1.4-6.5) Lymphocytes # (Auto) 0.80 K/uL (1.2-3.4) Monocytes # (Auto) 0.30 K/uL (0.11-0.59) Eosinophils # (Auto) 0.01 K/uL (0-0.5) Basophils # (Auto) 0.00 K/uL (0-0.2) RDW Standard Deviation 50.3 fL (36.4-46.3) RDW Coefficient of Variation 16.2 % (11.5-14.5) Immature Granulocyte % (Auto) 0.3 % Immature Granulocyte # (Auto) 0.03 K/uL (0.00-0.02) Red Blood Cell Morphology Unremarkable Anion Gap 6.0 mmol/L (3-11) Est Creatinine Clear Calc Drug Dose 103.9 ml/min Estimated GFR () 119.6 Estimated GFR (Non- 103.2 BUN/Creatinine Ratio 23.1 (10-20) Calcium Level 9.2 mg/dl (8.5-10.1) Total Bilirubin 0.4 mg/dl (0.2-1) Aspartate Amino Transf (AST/SGOT) 11 U/L (15-37) Alanine Aminotransferase (ALT/SGPT) 12 U/L (12-78) Alkaline Phosphatase 78 U/L (45-117) Troponin I < 0.015 ng/ml (0-0.045) Total Protein 7.7 gm/dl (6.4-8.2) Albumin 3.1 gm/dl (3.4-5.0) Globulin 4.6 gm/dl (2.5-4.0) Albumin/Globulin Ratio 0.7 (0.9-2) Bedside Glucose 220 mg/dl (70-90)
[2017-06-30] MEDS ORDERED: PANT1TAB3 PO (16:57)
[2017-06-30] MEDS ORDERED: FRRS300 PO (16:57)
[2017-06-30] MEDS ORDERED: PRED-301 PO (16:57)
--- NOTE | 2017-06-30 16:59 | Discharge Instructions ---
Discharge Instructions Date of Service Jun 30, 2017. Admission Reason for Admission: Respiratory Failure, Acute Discharge Discharge Diagnosis / Problem: Acute respiratory failure Discharge Goals Goal(s): Diagnostic testing Activity Recommendations Activity Limitations: resume your previous activity . Instructions / Follow-Up Instructions / Follow-Up Please see Shala Ricketts (covering for Ivonne Subramanian) on July 05 at 2:45PM for hospital follow up Please follow up with Pulmonary as scheduled. Follow up with Dr. Aguila as scheduled. Current Hospital Diet Patient's current hospital diet: AHA Diet (Heart Healthy), Diabetes Type 2 Diet Discharge Diet Recommended Diet: AHA Diet (Heart Healthy), Diabetes Type 2 Diet Pending Studies Studies pending at discharge: no Laboratory Results Hemoglobin A1c Test 04/30/17 05:27 Range/Units Estimated Average Glucose 126 mg/dl Hemoglobin A1c 6.0 H 4.5-5.6 % Medical Emergencies . Who to Call and When: Medical Emergencies: If at any time you feel your situation is an emergency, please call 911 immediately. . Non-Emergent Contact Non-Emergency issues call your: Primary Care Provider, [employer]ch[employer] . . "Provider Documentation" section prepared by Janessa Blas. .
--- NOTE | 2017-06-30 18:29 | Pulmonology Progress Note ---
Pulmonary Progress Note Date of Service Jun 30, 2017. Attending Dr. Sales Subjective Patient admitted with shortness of breath and bronchiectasis. Pulmonary consult requested. Patient seen by Dr. Sales. Started on aggressive pulmonary toilet. Patient seen today at bedside and knows that she is back to baseline. Anticipated discharge today. Objective GENERAL : No acute distress NOSE: No evidence of epistaxis. Nasal cannula in place MOUTH: No lesions or candidiasis LUNGS: Bibasilar rales. Expiratory wheezes in the left base cleared with cough HEART: Regular, rate controlled EXTREMITIES: No LE edema, pedal pulses intact NEURO: A&OX3 Assessment & Plan CHRONIC BRONCHIECTASIS WITH EXACERBATION * Adequate response to aggressive pulmonary toilet and methylprednisolone * Patient being discharged today * Follow-up in the outpatient clinic 07/12/17 at 1 PM with Cathy Jara PA-C Thank you for including us in the care of this patient. We will continue to follow in the outpatient clinic. Data I & O: 24-Hour Column 07/01/17 07:59 Intake Total 1230 ml Output Total 0 ml Balance 1230 ml Vital Signs: Date Time Temp Pulse Resp B/P (MAP) Pulse Ox O2 Delivery O2 Flow Rate FiO2 06/30/17 16:46 36.9 84 18 98 Nasal Cannula 06/30/17 16:00 98 Nasal Cannula 4.0 Humidified Oxygen 06/30/17 15:25 36.9 84 18 128/70 (89) 98 Nasal Cannula 4.0 Humidified Oxygen 06/30/17 14:56 82 16 97 Nasal Cannula 3.0 06/30/17 12:00 99 Nasal Cannula 4.0 06/30/17 11:25 36.5 75 20 137/75 (95) 99 Nasal Cannula 4.0 06/30/17 08:00 96 Nasal Cannula 4.0 06/30/17 07:24 37.2 75 20 131/75 (93) 96 Nasal Cannula 4.0 06/30/17 07:03 65 16 98 Nasal Cannula 3.0 06/30/17 04:50 37.0 74 20 119/77 (91) 97 Nasal Cannula 4.0 Humidified Oxygen 06/30/17 04:00 Nasal Cannula 4.0 06/30/17 01:44 77 16 96 Nasal Cannula 3.0 06/30/17 00:00 Nasal Cannula 4.0 3/21/18 23:45 36.6 82 17 124/74 (91) 96 Nasal Cannula 4.0 06/29/17 20:33 36.8 109 18 130/72 (91) 93 Nasal Cannula 3.0 06/29/17 20:00 95 Nasal Cannula 4.0 06/29/17 19:00 75 18 95 Nasal Cannula 3.0 Laboratory Results: Last 24 Hours Test 06/29/17 20:16 06/30/17 02:50 06/30/17 06:43 06/30/17 11:20 Bedside Glucose 230 mg/dl 213 mg/dl 220 mg/dl White Blood Count 9.39 K/uL Red Blood Count 3.21 M/uL Hemoglobin 8.4 g/dL Hematocrit 27.1 % Mean Corpuscular Volume 84.4 fL Mean Corpuscular Hemoglobin 26.2 pg Mean Corpuscular Hemoglobin Concent 31.0 g/dl Platelet Count 258 K/uL Mean Platelet Volume 8.9 fL Neutrophils (%) (Auto) 87.9 % Lymphocytes (%) (Auto) 8.5 % Monocytes (%) (Auto) 3.2 % Eosinophils (%) (Auto) 0.1 % Basophils (%) (Auto) 0.0 % Neutrophils # (Auto) 8.25 K/uL Lymphocytes # (Auto) 0.80 K/uL Monocytes # (Auto) 0.30 K/uL Eosinophils # (Auto) 0.01 K/uL Basophils # (Auto) 0.00 K/uL RDW Standard Deviation 50.3 fL RDW Coefficient of Variation 16.2 % Immature Granulocyte % (Auto) 0.3 % Immature Granulocyte # (Auto) 0.03 K/uL Red Blood Cell Morphology Unremarkable Sodium Level 135 mmol/L Potassium Level 4.0 mmol/L Chloride Level 96 mmol/L Carbon Dioxide Level 33 mmol/L Anion Gap 6.0 mmol/L Blood Urea Nitrogen 14 mg/dl Creatinine 0.59 mg/dl Est Creatinine Clear Calc Drug Dose 103.9 ml/min Estimated GFR () 119.6 Estimated GFR (Non- 103.2 BUN/Creatinine Ratio 23.1 Random Glucose 157 mg/dl Calcium Level 9.2 mg/dl Total Bilirubin 0.4 mg/dl Aspartate Amino Transf (AST/SGOT) 11 U/L Alanine Aminotransferase (ALT/SGPT) 12 U/L Alkaline Phosphatase 78 U/L Troponin I < 0.015 ng/ml Total Protein 7.7 gm/dl Albumin 3.1 gm/dl Globulin 4.6 gm/dl Albumin/Globulin Ratio 0.7 Test 06/30/17 16:40 Bedside Glucose 199 mg/dl
== END 2017-06-30 18:10 | disposition home or self-care (01) | DRG 189 ==
LOC: C.EDB 23:48 → C.2T 06-28 03:46 → ENRESERV 06-28 03:51
PROVIDERS: ADMIT Internal Medicine; ATTEND Internal Medicine
DX: J96.21 Acute and chronic respiratory failure with hypoxia (principal); J47.1 Bronchiectasis with (acute) exacerbation; D62 Acute posthemorrhagic anemia; D80.1 Nonfamilial hypogammaglobulinemia; J45.909 Unspecified asthma, uncomplicated; K21.9 Gastro-esophageal reflux disease without esophagitis; T38.0X5A Adverse effect of glucocorticoids and synthetic analogues, initial encounter; G47.33 Obstructive sleep apnea (adult) (pediatric); I10 Essential (primary) hypertension; E09.9 Drug or chemical induced diabetes mellitus without complications; F32.9 Major depressive disorder, single episode, unspecified; M81.8 Other osteoporosis without current pathological fracture; K64.9 Unspecified hemorrhoids; Z83.3 Family history of diabetes mellitus; Z88.5 Allergy status to narcotic agent; Z79.4 Long term (current) use of insulin; Z79.52 Long term (current) use of systemic steroids; Z98.890 Other specified postprocedural states; Z88.8 Allergy status to other drugs, medicaments and biological substances; Z96.641 Presence of right artificial hip joint; Y92.019 Unspecified place in single-family (private) house as the place of occurrence of the external cause

== ENCOUNTER 2017-07-16 12:12 | Emergency (ER) | payer OTHER ==
[~2017-07-16] VITALS: Ht 160 cm; Wt 73.0 kg
[~2017-07-16 12:12] MED LIST changes: -HYDR5TAB57 PO; -IBUP-1050 PO; -NITR1CAP32 PO; +TRAM-10 PO; -ULT50X PO
[2017-07-16 12:30] VITALS: Ht 160 cm; Wt 73.0 kg
[2017-07-16] MEDS ORDERED: SODIUM CHLORIDE 0.9% 1000ML 1,000 ML IV STA (12:44)
[2017-07-16] MEDS ORDERED: ONDANSETRON INJ 2 MG/ML 2 ML VIAL IV STA (12:44)
--- NOTE | 2017-07-16 12:55 | EMERGENCY ROOM VISIT NOTE ---
History Report prepared by Alvaro: Jeannette Arvizu Under the Supervision of: Dr. Yvan Muñoz M.D. First contact with patient: 12:32 Chief Complaint: DIARRHEA Stated Complaint: NAUSEA,ABDOMINAL PAIN,RAPID HEART RATE Nursing Triage Summary: triage note: pt reports diarrhea, nausea, abd pain x 2 weeks. pt reports she saw her pcp last week "they did a sample and said there was no infection." History of Present Illness The patient is a 56 year old female who presents to the Emergency Room with complaints of diarrhea beginning 2 weeks captain room service. She states today she has abdominal pain and she has been going to the bathroom nonstop. Today, she reports she has gone to the bathroom at least 10 times. She has hematochezia that is bright red. She denies any pain during urination. The patient describes her pain as "extreme" and having a bowel movement worsens her pain. Source of History: patient Onset: 2 weeks captain room service Position: abdomen Quality: other ("extreme") Modifying Factors (Worsening): defecation Associated Symptoms: + abdominal pain, + hematochezia, No urinary symptoms Review of Systems See HPI for pertinent positives and negatives. A total of ten systems were reviewed and were otherwise negative. 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 (19) Tachycardia Surgical Problems: (1) H/O atrial septal defect repair (2) H/O: hysterectomy (3) History of hysterectomy (4) History of myringotomy (5) Hx of appendectomy (6) Hx of cholecystectomy (7) Hx of tympanostomy tubes (8) S/P bronchoscopy (9) S/P section (10) S/P sinus surgery (11) S/P tonsillectomy and adenoidectomy Family History Asthma SISTER Cancer SISTER FATHER MOTHER Diabetes mellitus Gallbladder disease Heart disease Hypertension FATHER Kidney disease Kidney stones Lung disease Social History Smoking Status: Never Smoker Alcohol Use: none Drug Use: none Marital Status: single Housing Status: lives with family Occupation Status: unemployed, other Current/Historical Medications Scheduled Acetaminophen (Tylenol), 1,000 MG PO PRN Alendronate Sodium (Alendronate Sodium), 70 MG PO Ascorbic Acid (Ascorbic Acid), 250 MG PO HS Calcium Carbonate-Vitamin D W/ (Caltrate 600 Plus), 1 TAB PO QAM Cyanocobalamin (Vitamin B12), 1,000 MCG PO QAM Ferrous Sulfate (Ferrous Sulfate), 1 TAB PO HS Fluticasone Propionate (Nasal) (Flonase Allergy Relief), 2 SPRY ESPERANZA QAM Folic Acid (Folic Acid), 1 MG PO HS Home O2 Therapy (Oxygen), 2-4 LITERS NA DAILY Hydrocortisone (Cortef), 7.5 MG PO QAM Insulin Human NPH (Novolin N), 10 UNITS SQ QAM Magnesium Oxide (Mg Supplement (Magnesium), 400 MG PO QAM Metoprolol Tartrate (Lopressor) (Lopressor), 50 MG PO BID Multiple Vitamin (Multivitamin), 1 TAB PO QAM Ondasetron Odt (Zofran Odt), 4 MG SL TID Pantoprazole (Protonix), 40 MG PO BID Sertraline (Zoloft), 50 MG PO QAM [Immunoglobulin], 1 DOSE INJ MONTHLY Scheduled PRN Albuterol Sulf (Albuterol Sulfate), 1 DOSE INH Q4H PRN for Shortness of Breath Allergies Coded Allergies: Oxycodone (Verified Allergy, Mild, 0, 07/16/17) depression Albuterol (Verified Adverse Reaction, Mild, CHEST PAIN, LEVALBUTEROL OK, ) PT STATES "IF TAKE TOO MUCH DEVELOPS CHEST PAIN". TOLERATE LEVALBUTEROL 04/201506/14/17 - Patient reports that she does take albuterol at home, just not too frequently. Physical Exam Vital Signs Date Time Temp Pulse Resp B/P (MAP) Pulse Ox O2 Delivery O2 Flow Rate FiO2 07/16/17 17:51 36.7 72 20 117/78 96 07/16/17 17:41 72 07/16/17 17:25 91 20 116/69 97 Room Air 07/16/17 15:37 86 20 116/76 98 Nasal Cannula 2.0 07/16/17 14:29 84 18 94/60 96 Nasal Cannula 2.5 07/16/17 13:39 76 20 99/58 94 Nasal Cannula 2.5 07/16/17 12:30 36.7 92 20 102/73 97 Nasal Cannula Physical Exam Physical Exam GENERAL: She is oriented to person, place, and time. She appears well- developed and well-nourished. She does not appear distressed. ____ HENT: Exam performed. Head: Normocephalic and atraumatic. Right Ear: External ear normal. No mastoid tenderness. Left Ear: External ear normal. No mastoid tenderness. Mouth/Throat: The oropharynx is clear and moist. No trismus in the jaw. No dental abscesses or uvula swelling. No oropharyngeal exudate or tonsillar abscesses. ____ EYES: Conjunctivae and EOM are normal. Pupils are equal, round, and reactive to light. Right eye exhibits no discharge. Left eye exhibits no discharge. No scleral icterus. ____ NECK: Normal range of motion. Neck supple. No JVD present. No spinous process tenderness present. No carotid bruit present. No rigidity. No tracheal deviation and normal range of motion present. No Brudzinski's sign and no Kernig 's sign noted. ____ CV: Normal rate, regular rhythm, normal heart sounds and intact distal pulses. There is no peripheral edema. Palpable radial pulses bue. ____ PULM/CHEST: Mild expiratory wheezes at the bases. Chest Wall: She exhibits no tenderness. ____ ABD: The abdomen is soft. Bowel sounds are normal. She has no distension. No mass is present. There is no tenderness. There is no rebound, no guarding, no Hummel's sign and no tenderness at McBurney's point. Rovsig negative RECTAL: No hemorrhoids. No bright red blood per rectum. Hemoccult negative MUSC/SKEL: Normal range of motion. There is no peripheral edema, tenderness or deformity. LYMPH: No cervical adenopathy. ____ NEURO: She is alert and oriented to person, place, and time. She has normal strength. No cranial nerve deficit or sensory deficit. Coordination and gait normal. GCS eye subscore is 4. GCS verbal subscore is 5. GCS motor subscore is 6. Cerebellar tests wnl. ____ SKIN: Skin is warm and dry. She is not diaphoretic. ____ PSYCH: She has a normal mood and affect. Her behavior is normal. Judgment and thought content normal. ____ Medical Decision & Procedures ER Provider Diagnostic Interpretation: Radiology results as stated below per my review and radiologist interpretation: ABDOMEN 2VIEW W/PA CHEST RTN CLINICAL HISTORY: 56 years-old Female presenting with abdominal pain. TECHNIQUE: PA view of the chest and supine and upright views of the abdomen were obtained. COMPARISON: Chest x-ray from 05/16/2017 and abdomen and pelvis CT from 06/28/2017. FINDINGS: Right internal jugular Mediport terminates in the lower SVC. Median sternotomy wires noted. Atherosclerosis of the aortic arch. Cardiac silhouette normal in size. Diffuse reticulonodular opacities similar to prior exam. Cholecystectomy clips noted. Nonobstructive bowel gas pattern. No gross pneumoperitoneum. Allowing for bowel gas and stool, no calcifications to suggest nephrolithiasis. Stable distribution of pelvic phleboliths. Right shoulder arthroplasty unchanged. Scoliotic curvature of the lumbar spine. Degenerative changes of the lumbar spine. IMPRESSION: 1. Diffuse reticulonodular opacities indicative of chronic lung disease with bronchiectasis and fibrotic change. Ongoing acute infection cannot be excluded though no new focal infiltrate is apparent. 2. No radiographic evidence of acute intra-abdominal pathology. Electronically signed by: Fabrizio Velazquez M.D. 07/16/2017 2:11 PM Dictated Date/Time: 07/16/2017 2:08 PM ABD/PELVIS IV AND ORAL CONT CLINICAL HISTORY: 56 years-old Female presenting with abdominal pain. TECHNIQUE: Multidetector CT of the abdomen and pelvis was performed after the administration of oral and intravenous contrast. IV contrast: 116 mL of Optiray 320. A dose lowering technique was used consistent with the principles of ALARA (as low as reasonably achievable). COMPARISON: None. CT DOSE (mGy.cm): The estimated cumulative dose is 323.49 mGy.cm. FINDINGS: Residential Nurse topogram: Total right hip arthroplasty. Cholecystectomy clips. Median sternotomy wires. Extensive reticulation in the lungs. Lung bases: Extensive chronic lung disease with diffuse bronchiectasis. Superimposed primarily centrilobular nodules. Extensive mosaic attenuation suggesting air trapping. Cystic bronchiectasis or cicatrizing atelectasis of the lingula and right middle lobe. Normal heart size. No pericardial or pleural effusion. Liver: Normal morphology. No liver lesion. Patent hepatic vasculature. Biliary: Mild biliary ductal prominence likely a reservoir effect in the post cholecystectomy state. Gallbladder surgically absent. Pancreas: Normal. Spleen: Normal. Adrenal glands: Normal. Kidneys and ureters: Few hypodensities noted in the kidneys, likely small cysts. No nephrolithiasis. No hydronephrosis. Ureters normal. Bladder: Incompletely evaluated secondary to underdistention. Pelvic organs: Uterus surgically absent. Bowel: The rectum is minimally thick-walled circumferentially. No bowel obstruction. Oral contrast has transited to the rectum. No pericolonic inflammatory change. The vasa recta is mildly prominent in the region of the sigmoid colon and rectum. Small bowel normal. Peritoneal cavity: No free fluid or intraperitoneal gas. Lymph nodes: No enlarged lymph nodes in the abdomen or pelvis. Vasculature: Atherosclerosis of the normal caliber abdominal aorta. IVC patent. Abdominal wall: Normal. Musculoskeletal: Total right hip prosthesis with redemonstration of the diastatic fracture of the superior acetabulum. There is 5 mm of diastases, unchanged. Degenerative changes of the spine. IMPRESSION: 1. No convincing evidence of acute intra-abdominal pathology. Changes in the region of the sigmoid colon and rectum could suggest prior or chronic inflammatory change or post radiation change. 2. Redemonstration of the mildly diastatic fracture of the right superior acetabulum, which is a periprosthetic fracture. 3. Extensive chronic lung disease, unchanged. The appearance could suggest chronic granulomatous infection or allergic bronchopulmonary aspergillosis among many other etiologies. Electronically signed by: Fabrizio Velazquez M.D. 07/16/2017 5:32 PM Dictated Date/Time: 07/16/2017 5:17 PM Laboratory Results 07/16/17 13:15 Red Blood Count 3.92, Mean Corpuscular Volume 83.4, Mean Corpuscular Hemoglobin 26.0, Mean Corpuscular Hemoglobin Concent 31.2, Mean Platelet Volume 8.6, Neutrophils (%) (Auto) 81.8, Lymphocytes (%) (Auto) 9.9, Monocytes (%) (Auto) 5.1, Eosinophils (%) (Auto) 2.7, Basophils (%) (Auto) 0.2, Neutrophils # (Auto) 11.06, Lymphocytes # (Auto) 1.34, Monocytes # (Auto) 0.69, Eosinophils # (Auto) 0.36, Basophils # (Auto) 0.03 07/16/17 13:15 Test 07/16/17 13:15 07/16/17 13:32 07/16/17 14:25 White Blood Count 13.52 K/uL (4.8-10.8) Red Blood Count 3.92 M/uL (4.2-5.4) Hemoglobin 10.2 g/dL (12.0-16.0) Hematocrit 32.7 % (37-47) Mean Corpuscular Volume 83.4 fL (80-100) Mean Corpuscular Hemoglobin 26.0 pg (25-34) Mean Corpuscular Hemoglobin Concent 31.2 g/dl (32-36) Platelet Count 234 K/uL (130-400) Mean Platelet Volume 8.6 fL (7.4-10.4) Neutrophils (%) (Auto) 81.8 % Lymphocytes (%) (Auto) 9.9 % Monocytes (%) (Auto) 5.1 % Eosinophils (%) (Auto) 2.7 % Basophils (%) (Auto) 0.2 % Neutrophils # (Auto) 11.06 K/uL (1.4-6.5) Lymphocytes # (Auto) 1.34 K/uL (1.2-3.4) Monocytes # (Auto) 0.69 K/uL (0.11-0.59) Eosinophils # (Auto) 0.36 K/uL (0-0.5) Basophils # (Auto) 0.03 K/uL (0-0.2) RDW Standard Deviation 49.0 fL (36.4-46.3) RDW Coefficient of Variation 16.0 % (11.5-14.5) Immature Granulocyte % (Auto) 0.3 % Immature Granulocyte # (Auto) 0.04 K/uL (0.00-0.02) Anion Gap 7.0 mmol/L (3-11) Est Creatinine Clear Calc Drug Dose 90.8 ml/min Estimated GFR () 114.7 Estimated GFR (Non- 99.0 BUN/Creatinine Ratio 23.7 (10-20) Calcium Level 9.4 mg/dl (8.5-10.1) Total Bilirubin 0.3 mg/dl (0.2-1) Direct Bilirubin 0.1 mg/dl (0-0.2) Aspartate Amino Transf (AST/SGOT) 11 U/L (15-37) Alanine Aminotransferase (ALT/SGPT) 14 U/L (12-78) Alkaline Phosphatase 84 U/L (45-117) Total Protein 8.1 gm/dl (6.4-8.2) Albumin 3.0 gm/dl (3.4-5.0) Lipase 147 U/L (73-393) Lactic Acid Level 0.9 mmol/L (0.4-2.0) Urine Color DK YELLOW Urine Appearance CLEAR (CLEAR) Urine pH 5.5 (4.5-7.5) Urine Specific [place] 1.026 (1.000-1.030) Urine Protein 1+ (NEG) Urine Glucose (UA) NEG (NEG) Urine Ketones NEG (NEG) Urine Occult Blood NEG (NEG) Urine Nitrite NEG (NEG) Urine Bilirubin NEG (NEG) Urine Urobilinogen NEG (NEG) Urine Leukocyte Esterase TRACE (NEG) Urine WBC (Auto) 5-10 /hpf (0-5) Urine RBC (Auto) 0-4 /hpf (0-4) Urine Hyaline Casts (Auto) 10-30 /lpf (0-5) Urine Epithelial Cells (Auto) >30 /lpf (0-5) Urine Bacteria (Auto) NEG (NEG) Date/Time Source Procedure Growth Status 07/16/17 12:50 Stool C.difficile Toxin B Gene (PCR) - Final No C. difficile toxin B gene detected Complete Laboratory results reviewed by me Medications Administered Medications (Trade) Dose Ordered Sig/Man Route Start Time Stop Time Status Last Admin Dose Admin Sodium Chloride 1,000 ml @ 75 mls/hr [id number] STAT IV 07/16/17 12:44 07/17/17 02:03 07/16/17 13:26 75 MLS/HR Ondansetron HCl (Zofran Inj) 4 mg NOW STAT IV 07/16/17 12:44 07/16/17 12:46 DC 07/16/17 13:33 4 MG Heparin Sodium (Porcine) (Heparin 10 Unit/ ml 5 ml Flush) 5 ml STK-MED ONCE .ROUTE 07/16/17 17:44 07/16/17 17:45 DC 07/16/17 17:51 5 ML ED Course 1242: The patient was evaluated in room B7. A complete history and physical exam was performed. EMR was reviewed. Patient was seen by GI during her admission on June 28 for GI bleed. Her hemoglobin is usually around 10. At that time her hemoglobin was 8. She is on ferrous sulfate 325 mg daily. At that time she was having intermittent hematochezia. Rectal exam was within normal limits. Per the notes, her colonoscopies in the past have been within normal limits showing no inflammatory bowel disease She had a CT of the abdomen and pelvis done on June 28 which was unremarkable from a GI standpoint. 1244: Zofran Inj 4 mg IV Sodium Chloride 1000 ml @ 75 ml/hr IV 1740: Vitals signs are stable. The patient reports feeling mildly better after her medications. She continues to have non bloody bowel movements. Labs show mild leukocytosis. Hemoglobin stable. Urine is contaminated sample. CT showed no acute pathology. Patient will be discharged with her medications. The C-diff was negative. DISCHARGE - Plan of care discussed with patient and questions answered. The patient was given both verbal and printed discharge instructions. The patient verbalized understanding and ability to comply. The patient is to seek outpatient follow up as noted in the discharge instructions. The patient verbalized understanding and ability to comply. The patient is discharged in stable condition. The patient was instructed to return for worsening symptoms. Medical Decision Vitals signs are stable. The patient reports feeling mildly better after her medications. She continues to have non bloody bowel movements. Labs show mild leukocytosis. Hemoglobin stable. Urine is contaminated sample. CT showed no acute pathology. Patient will be discharged with her medications. The C-diff was negative. DISCHARGE - Plan of care discussed with patient and questions answered. The patient was given both verbal and printed discharge instructions. The patient verbalized understanding and ability to comply. The patient is to seek outpatient follow up as noted in the discharge instructions. The patient verbalized understanding and ability to comply. The patient is discharged in stable condition. The patient was instructed to return for worsening symptoms. Medication Reconcilliation Current Medication List: was personally reviewed by me Blood Pressure Screening Patient's blood pressure: Normal blood pressure Blood pressure disposition: Did not require urgent referral Impression Primary Impression: Diarrhea Scribe Attestation The scribe's documentation has been prepared under my direction and personally reviewed by me in its entirety. I confirm that the note above accurately reflects all work, treatment, procedures, and medical decision making performed by me. The chart was completed utilizing [employer] Speech voice recognition software. Grammatical errors, random word insertions, pronoun errors, and incomplete sentences are an occasional consequence of this system due to software limitations, ambient noise, and hardware issues. Any formal questions or concerns about the content, text, or information contained within the body of this dictation should be directly addressed to the physician for clarification. Departure Information Dispostion Home / Self-Care Prescriptions Ondasetron Odt (ZOFRAN ODT) 4 Mg Tab 4 MG SL TID for Nausea, #30 TAB Prov: Yvan Muñoz M.D. 07/16/17 Referrals Ivonne Subramanian (PCP) Forms HOME CARE DOCUMENTATION FORM, IMPORTANT VISIT INFORMATION, WORK / SCHOOL INSTRUCTIONS Patient Instructions My [facility] Problem Qualifiers Primary Impression: Diarrhea Diarrhea type: unspecified type Qualified Codes: R19.7 - Diarrhea, unspecified
--- NOTE | 2017-07-16 12:59 | EMERGENCY ROOM VISIT NOTE ---
History Report prepared by Alvaro: Jeannette Arvizu First contact with patient: 12:32 Chief Complaint: DIARRHEA Stated Complaint: NAUSEA,ABDOMINAL PAIN,RAPID HEART RATE Nursing Triage Summary: triage note: pt reports diarrhea, nausea, abd pain x 2 weeks. pt reports she saw her pcp last week "they did a sample and said there was no infection." History of Present Illness The patient is a 56 year old female who presents to the Emergency Room with complaints of 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 (19) Tachycardia Surgical Problems: (1) H/O atrial septal defect repair (2) H/O: hysterectomy (3) History of hysterectomy (4) History of myringotomy (5) Hx of appendectomy (6) Hx of cholecystectomy (7) Hx of tympanostomy tubes (8) S/P bronchoscopy (9) S/P section (10) S/P sinus surgery (11) S/P tonsillectomy and adenoidectomy Family History Asthma SISTER Cancer SISTER FATHER MOTHER Diabetes mellitus Gallbladder disease Heart disease Hypertension FATHER Kidney disease Kidney stones Lung disease Social History Smoking Status: Never Smoker Alcohol Use: none Drug Use: none Marital Status: single Housing Status: lives with family Occupation Status: unemployed, other Current/Historical Medications Scheduled Acetaminophen (Tylenol), 1,000 MG PO PRN Alendronate Sodium (Alendronate Sodium), 70 MG PO Ascorbic Acid (Ascorbic Acid), 250 MG PO HS Calcium Carbonate-Vitamin D W/ (Caltrate 600 Plus), 1 TAB PO QAM Cyanocobalamin (Vitamin B12), 1,000 MCG PO QAM Ferrous Sulfate (Ferrous Sulfate), 1 TAB PO HS Fluticasone Propionate (Nasal) (Flonase Allergy Relief), 2 SPRY ESPERANZA QAM Folic Acid (Folic Acid), 1 MG PO HS Home O2 Therapy (Oxygen), 2-4 LITERS NA DAILY Hydrocortisone (Cortef), 7.5 MG PO QAM Insulin Human NPH (Novolin N), 10 UNITS SQ QAM Magnesium Oxide (Mg Supplement (Magnesium), 400 MG PO QAM Metoprolol Tartrate (Lopressor) (Lopressor), 50 MG PO BID Multiple Vitamin (Multivitamin), 1 TAB PO QAM Pantoprazole (Protonix), 40 MG PO BID Sertraline (Zoloft), 50 MG PO QAM [Immunoglobulin], 1 DOSE INJ MONTHLY Scheduled PRN Albuterol Sulf (Albuterol Sulfate), 1 DOSE INH Q4H PRN for Shortness of Breath Allergies Coded Allergies: Oxycodone (Verified Allergy, Mild, 0, 07/16/17) depression Albuterol (Verified Adverse Reaction, Mild, CHEST PAIN, LEVALBUTEROL OK, ) PT STATES "IF TAKE TOO MUCH DEVELOPS CHEST PAIN". TOLERATE LEVALBUTEROL 04/201506/14/17 - Patient reports that she does take albuterol at home, just not too frequently. Physical Exam Vital Signs Date Time Temp Pulse Resp B/P (MAP) Pulse Ox O2 Delivery O2 Flow Rate FiO2 07/16/17 14:29 84 18 94/60 96 Nasal Cannula 2.5 07/16/17 13:39 76 20 99/58 94 Nasal Cannula 2.5 07/16/17 12:30 36.7 92 20 102/73 97 Nasal Cannula Medical Decision & Procedures Laboratory Results 07/16/17 13:15 Red Blood Count 3.92, Mean Corpuscular Volume 83.4, Mean Corpuscular Hemoglobin 26.0, Mean Corpuscular Hemoglobin Concent 31.2, Mean Platelet Volume 8.6, Neutrophils (%) (Auto) 81.8, Lymphocytes (%) (Auto) 9.9, Monocytes (%) (Auto) 5.1, Eosinophils (%) (Auto) 2.7, Basophils (%) (Auto) 0.2, Neutrophils # (Auto) 11.06, Lymphocytes # (Auto) 1.34, Monocytes # (Auto) 0.69, Eosinophils # (Auto) 0.36, Basophils # (Auto) 0.03 07/16/17 13:15 Test 07/16/17 13:15 07/16/17 13:32 4/7/18 14:25 White Blood Count 13.52 K/uL (4.8-10.8) Red Blood Count 3.92 M/uL (4.2-5.4) Hemoglobin 10.2 g/dL (12.0-16.0) Hematocrit 32.7 % (37-47) Mean Corpuscular Volume 83.4 fL (80-100) Mean Corpuscular Hemoglobin 26.0 pg (25-34) Mean Corpuscular Hemoglobin Concent 31.2 g/dl (32-36) Platelet Count 234 K/uL (130-400) Mean Platelet Volume 8.6 fL (7.4-10.4) Neutrophils (%) (Auto) 81.8 % Lymphocytes (%) (Auto) 9.9 % Monocytes (%) (Auto) 5.1 % Eosinophils (%) (Auto) 2.7 % Basophils (%) (Auto) 0.2 % Neutrophils # (Auto) 11.06 K/uL (1.4-6.5) Lymphocytes # (Auto) 1.34 K/uL (1.2-3.4) Monocytes # (Auto) 0.69 K/uL (0.11-0.59) Eosinophils # (Auto) 0.36 K/uL (0-0.5) Basophils # (Auto) 0.03 K/uL (0-0.2) RDW Standard Deviation 49.0 fL (36.4-46.3) RDW Coefficient of Variation 16.0 % (11.5-14.5) Immature Granulocyte % (Auto) 0.3 % Immature Granulocyte # (Auto) 0.04 K/uL (0.00-0.02) Anion Gap 7.0 mmol/L (3-11) Est Creatinine Clear Calc Drug Dose 90.8 ml/min Estimated GFR () 114.7 Estimated GFR (Non- 99.0 BUN/Creatinine Ratio 23.7 (10-20) Calcium Level 9.4 mg/dl (8.5-10.1) Total Bilirubin 0.3 mg/dl (0.2-1) Direct Bilirubin 0.1 mg/dl (0-0.2) Aspartate Amino Transf (AST/SGOT) 11 U/L (15-37) Alanine Aminotransferase (ALT/SGPT) 14 U/L (12-78) Alkaline Phosphatase 84 U/L (45-117) Total Protein 8.1 gm/dl (6.4-8.2) Albumin 3.0 gm/dl (3.4-5.0) Lipase 147 U/L (73-393) Lactic Acid Level 0.9 mmol/L (0.4-2.0) Date/Time Source Procedure Growth Status 07/16/17 12:50 Stool C.difficile Toxin B Gene (PCR) - Final No C. difficile toxin B gene detected Complete Medications Administered Medications (Trade) Dose Ordered Sig/Man Route Start Time Stop Time Status Last Admin Dose Admin Sodium Chloride 1,000 ml @ 75 mls/hr [id number] STAT IV 07/16/17 12:44 07/17/17 02:03 07/16/17 13:26 75 MLS/HR Ondansetron HCl (Zofran Inj) 4 mg NOW STAT IV 07/16/17 12:44 07/16/17 12:46 DC 07/16/17 13:33 4 MG Departure Information Referrals Ivonne SubramanianPJohn (PCP) Patient Instructions My [facility]
[2017-07-16 13:24] LABS: BASO % 0.2 %; BASO ABS # 0.03 K/uL (0-0.2); EOS % 2.7 %; EOS ABS # 0.36 K/uL (0-0.5); HEMATOCRIT 32.7 % (37-47); HEMOGLOBIN 10.2 g/dL (12.0-16.0); IG# 0.04 K/uL (0.00-0.02); LYMPH % 9.9 %; LYMPH ABS # 1.34 K/uL (1.2-3.4); MEAN CELL VOLUME 83.4 fL (80-100); MEAN CORPUSCULAR HGB CONC 31.2 g/dl (32-36); MEAN PLATELET VOLUME 8.6 fL (7.4-10.4); MONO % 5.1 %; MONO ABS # 0.69 K/uL (0.11-0.59); NEUT % 81.8 %; NEUT ABS # 11.06 K/uL (1.4-6.5); PLATELET COUNT 234 K/uL (130-400); WHITE BLOOD COUNT 13.52 K/uL (4.8-10.8)
[2017-07-16 13:43] LABS: CALCIUM 9.4 mg/dl (8.5-10.1); CREATININE 0.67 mg/dl (0.60-1.20); POTASSIUM 4.2 mmol/L (3.5-5.1)
[2017-07-16 13:46] LABS: TOTAL PROTEIN 8.1 gm/dl (6.4-8.2)
--- NOTE | 2017-07-16 14:12 | DIAGNOSTIC IMAGING REPORT ---
ABDOMEN 2VIEW W/PA CHEST RTN CLINICAL HISTORY: 56 years-old Female presenting with abdominal pain. TECHNIQUE: PA view of the chest and supine and upright views of the abdomen were obtained. COMPARISON: Chest x-ray from 05/16/2017 and abdomen and pelvis CT from 06/28/2017. FINDINGS: Right internal jugular Mediport terminates in the lower SVC. Median sternotomy wires noted. Atherosclerosis of the aortic arch. Cardiac silhouette normal in size. Diffuse reticulonodular opacities similar to prior exam. Cholecystectomy clips noted. Nonobstructive bowel gas pattern. No gross pneumoperitoneum. Allowing for bowel gas and stool, no calcifications to suggest nephrolithiasis. Stable distribution of pelvic phleboliths. Right shoulder arthroplasty unchanged. Scoliotic curvature of the lumbar spine. Degenerative changes of the lumbar spine. IMPRESSION: 1. Diffuse reticulonodular opacities indicative of chronic lung disease with bronchiectasis and fibrotic change. Ongoing acute infection cannot be excluded though no new focal infiltrate is apparent. 2. No radiographic evidence of acute intra-abdominal pathology. Electronically signed by: Fabrizio Velazquez M.D. 07/16/2017 2:11 PM Dictated Date/Time: 07/16/2017 2:08 PM
[2017-07-16] MEDS ORDERED: FERR325T5 PO (14:17)
[2017-07-16] MEDS ORDERED: HYDR5TAB PO (14:20)
--- NOTE | 2017-07-16 17:34 | DIAGNOSTIC IMAGING REPORT ---
ABD/PELVIS IV AND ORAL CONT CLINICAL HISTORY: 56 years-old Female presenting with abdominal pain. TECHNIQUE: Multidetector CT of the abdomen and pelvis was performed after the administration of oral and intravenous contrast. IV contrast: 116 mL of Optiray 320. A dose lowering technique was used consistent with the principles of ALARA (as low as reasonably achievable). COMPARISON: None. CT DOSE (mGy.cm): The estimated cumulative dose is 323.49 mGy.cm. FINDINGS: Continuing Education Director topogram: Total right hip arthroplasty. Cholecystectomy clips. Median sternotomy wires. Extensive reticulation in the lungs. Lung bases: Extensive chronic lung disease with diffuse bronchiectasis. Superimposed primarily centrilobular nodules. Extensive mosaic attenuation suggesting air trapping. Cystic bronchiectasis or cicatrizing atelectasis of the lingula and right middle lobe. Normal heart size. No pericardial or pleural effusion. Liver: Normal morphology. No liver lesion. Patent hepatic vasculature. Biliary: Mild biliary ductal prominence likely a reservoir effect in the post cholecystectomy state. Gallbladder surgically absent. Pancreas: Normal. Spleen: Normal. Adrenal glands: Normal. Kidneys and ureters: Few hypodensities noted in the kidneys, likely small cysts. No nephrolithiasis. No hydronephrosis. Ureters normal. Bladder: Incompletely evaluated secondary to underdistention. Pelvic organs: Uterus surgically absent. Bowel: The rectum is minimally thick-walled circumferentially. No bowel obstruction. Oral contrast has transited to the rectum. No pericolonic inflammatory change. The vasa recta is mildly prominent in the region of the sigmoid colon and rectum. Small bowel normal. Peritoneal cavity: No free fluid or intraperitoneal gas. Lymph nodes: No enlarged lymph nodes in the abdomen or pelvis. Vasculature: Atherosclerosis of the normal caliber abdominal aorta. IVC patent. Abdominal wall: Normal. Musculoskeletal: Total right hip prosthesis with redemonstration of the diastatic fracture of the superior acetabulum. There is 5 mm of diastases, unchanged. Degenerative changes of the spine. IMPRESSION: 1. No convincing evidence of acute intra-abdominal pathology. Changes in the region of the sigmoid colon and rectum could suggest prior or chronic inflammatory change or post radiation change. 2. Redemonstration of the mildly diastatic fracture of the right superior acetabulum, which is a periprosthetic fracture. 3. Extensive chronic lung disease, unchanged. The appearance could suggest chronic granulomatous infection or allergic bronchopulmonary aspergillosis among many other etiologies. Electronically signed by: Fabrizio Velazquez M.D. 07/16/2017 5:32 PM Dictated Date/Time: 07/16/2017 5:17 PM
[2017-07-16] MEDS ORDERED: ONDA4TAB10 SL (17:39)
[2017-07-16 17:51] VITALS: BP 117/78; PULSE 72; TEMP 36.7; O2SAT 96
== END 2017-07-16 17:52 | disposition home or self-care (01) ==
LOC: C.EDB 12:14
DX: R19.7 Diarrhea, unspecified (principal); R11.0 Nausea; R10.9 Unspecified abdominal pain

== ENCOUNTER 2017-08-26 05:03 | Inpatient (IN) | payer OTHER ==
[2017-08-02 16:31] LABS: BASO % 0.2 %; BASO ABS # 0.02 K/uL (0-0.2); EOS % 1.8 %; EOS ABS # 0.21 K/uL (0-0.5); HEMATOCRIT 32.4 % (37-47); HEMOGLOBIN 9.9 g/dL (12.0-16.0); IG# 0.02 K/uL (0.00-0.02); LYMPH % 14.4 %; LYMPH ABS # 1.72 K/uL (1.2-3.4); MEAN CELL VOLUME 82.7 fL (80-100); MEAN CORPUSCULAR HEMOGLOBIN 25.3 pg (25-34); MEAN CORPUSCULAR HGB CONC 30.6 g/dl (32-36); MEAN PLATELET VOLUME 8.6 fL (7.4-10.4); MONO % 4.9 %; MONO ABS # 0.59 K/uL (0.11-0.59); NEUT % 78.5 %; NEUT ABS # 9.38 K/uL (1.4-6.5); PLATELET COUNT 271 K/uL (130-400); RED CELL DISTRIBUTION WIDTH CV 15.5 % (11.5-14.5); RED CELL DISTRIBUTION WIDTH SD 46.4 fL (36.4-46.3); WHITE BLOOD COUNT 11.94 K/uL (4.8-10.8)
[2017-08-02 16:40] LABS: PTT PATIENT 30.8 SECONDS (21.0-31.0)
[2017-08-02 16:53] LABS: BLOOD UREA NITROGEN 11 mg/dl (7-18); CALCIUM 9.4 mg/dl (8.5-10.1); CARBON DIOXIDE 33 mmol/L (21-32); CREATININE 0.72 mg/dl (0.60-1.20); GLUCOSE 100 mg/dl (70-99); POTASSIUM 4.6 mmol/L (3.5-5.1); SODIUM 133 mmol/L (136-145)
[2017-08-04 11:22] VITALS: BMI 27.0
--- NOTE | 2017-08-25 08:38 | HISTORY & PHYSICAL EXAMINATION ---
DATE OF ADMISSION: 08/26/2017 CHIEF COMPLAINT: Avascular necrosis of the left hip. HISTORY OF PRESENT ILLNESS: Valery is a very pleasant 56-year-old female who underwent a right total hip arthroplasty about 3 months ago. She has done very well with that. Unfortunately, she has been having a lot of pain in her left hip. X-rays and clinical examination have been diagnostic for avascular necrosis of the left hip with collapse. After failing conservative treatment, she elected to proceed with a left total hip arthroplasty. PAST MEDICAL HISTORY: Significant for diabetes, mild depression, hyperlipidemia, iron deficiency anemia, tachycardia, bronchiectasis for which she was on 2-4 L of oxygen since 2013. PAST SURGICAL HISTORY: Significant for tonsils and adenoids, open heart surgery in 1985, , hysterectomy, MediPort placement, cholecystectomy, shoulder arthroplasty, and right total hip arthroplasty in June 2017. ALLERGIES: SHE IS SENSITIVE TO ALBUTEROL. MEDICATIONS: Include hydrocortisone, Lopressor, NovoLog, alendronate, Spiriva, fluconazole, oxycodone, and immunoglobulin. FAMILY HISTORY: Denies. SOCIAL HISTORY: She is and is staying in her sister's house. She has been helping her recover from the hip replacements. She ambulates with a walker because of her left hip pain. REVIEW OF SYSTEMS: She complains of left hip pain. All other pertinent review of systems negative. PHYSICAL EXAMINATION: GENERAL: She is awake, alert, and oriented x3. She is in no apparent distress. She is very pleasant. HEENT: Pupils equal, round, and reactive to light. Extraocular motions intact. Oral mucosa is pink and moist. CARDIOVASCULAR: The heart has regular rate per radial pulse. RESPIRATORY: The lungs show symmetric air entry bilaterally with no audible breath sounds. GASTROINTESTINAL: The abdomen is soft, nontender, nondistended. MUSCULOSKELETAL: On physical examination of her left hip, her leg lengths are equal. She has significant tenderness to palpation in her left groin. She has pain with forced internal rotation. She has 5/5 muscle strength to straight leg raise and abduction. IMAGING DATA: X-rays of the pelvis show a well-placed right total hip arthroplasty in anatomic alignment. There is evidence of collapse of the femoral head of the left hip. IMPRESSION: Avascular necrosis of the left hip. PLAN: We will proceed with an anterior left total hip arthroplasty. Postoperatively, she will be started back on aspirin 325 mg twice a day and PAIGE hose stockings. She will likely be discharged to home and stay with her sister postoperatively.
[~2017-08-26] VITALS: Ht 160 cm; Wt 71.1 kg
[2017-08-26] VITALS (9 sets, daily range): BP systolic 91–110; BP diastolic 57–70; PULSE 64–82; TEMP 36.5–37.5; O2SAT 94–100; Ht 160 cm; Wt 71.1 kg
[~2017-08-26 05:03] MED LIST changes: -ASPEC325 PO; +FERR325T5 PO; -FRRS300 PO; +HYDR5TAB PO; +ONDA4TAB46 PO; -PANT1TAB3 PO; +PANT40TA PO; -TIOT1SPR INH; -TRAM-10 PO
[2017-08-26] MEDS ORDERED: GABAPENTIN 300 MG CAP PO SCH (06:00)
[2017-08-26] MEDS ORDERED: FAMOTIDINE 20 MG TAB PO SCH (06:00)
[2017-08-26] MEDS ORDERED: LACTATED RINGER'S 1000ML IV SCH (06:00)
[2017-08-26] MEDS ORDERED: CEFAZOLIN 2000MG IV PUSH 15 ML IV SCH (06:00)
[2017-08-26] MEDS ORDERED: LACTATED RINGER'S 1000ML 500 ML IV SCH (06:00)
[2017-08-26] MEDS ORDERED: ACETAMINOPHEN 500 MG TAB PO SCH (06:00)
[2017-08-26] MEDS ORDERED: ROPIVACAINE 5MG/ML 30 ML 150 MG, BUPIVACAINE 0.5% MPF INJ 30 ML, EpINEphrine HCL INJ 0.... INFIL SCH ×8 (06:00)
[2017-08-26] MEDS ORDERED: LACTATED RINGER'S 1000ML 1,000 ML IV SCH (06:00)
[2017-08-26] MEDS ORDERED: BACITRACIN 50000 UNIT VIAL ONE (06:33)
[2017-08-26] MEDS ORDERED: ORTHO JOINT ANESTHETIC ONE (06:33)
[2017-08-26] MEDS ORDERED: BUPIVACAINE 0.5 % 5 MG/1 ML PF 10ML VIAL ONE (06:36)
[2017-08-26] MEDS ORDERED: MIDAZOLAM HCL 1 MG/ML 2ML VIAL ONE (06:39)
[2017-08-26] MEDS: TRANEXAMIC ACID INJ 1,000 MG x 2 Bags IV SCH ×4 (06:57→12:04)
[2017-08-26] MEDS ORDERED: KETAMINE HCL INJ 50 MG/ML 10 ML VIAL ONE (07:20)
[2017-08-26] MEDS ORDERED: FLUMAZENIL 0.1 MG/1 ML 10 ML VIAL IV PRN (07:30)
[2017-08-26] MEDS ORDERED: FENTANYL CITRATE INJ 50 MCG/1 ML 2 ML VIAL IV PRN (07:30)
[2017-08-26] MEDS ORDERED: EpHEDrine SULFATE INJ 50 MG/ML AMP IV PRN (07:30)
[2017-08-26] MEDS ORDERED: ONDANSETRON INJ 2 MG/ML 2 ML VIAL IV PRN ×2 (07:30→09:00)
[2017-08-26] MEDS ORDERED: NALOXONE HCL 0.4 MG/1 ML VIAL/CARP IV PRN (07:30)
[2017-08-26] MEDS ORDERED: MEPERIDINE HCL 25 MG/ML CARP IV PRN (07:30)
[2017-08-26] MEDS ORDERED: ATROPINE SULFATE 0.1 MG/ML 5ML SYR IV PRN (07:30)
[2017-08-26] MEDS ORDERED: LABETALOL HCL IV 5 MG/ML 20ML IV PRN (07:30)
[2017-08-26] MEDS ORDERED: HYDROmorphone INJ 0.5 MG/0.5 ML SYR IV PRN (07:30)
[2017-08-26] MEDS ORDERED: PHENYLEPHRINE 100MCG/ML 5ML SYR IV PRN (07:30)
[2017-08-26] MEDS ORDERED: PROPOFOL IV EMULSION 10 MG/ML 20 ML VIAL ONE ×2 (07:32→08:10)
[2017-08-26] MEDS ORDERED: PHENYLEPHRINE 100MCG/ML 5ML SYR ONE (07:32)
[2017-08-26] MEDS ORDERED: ONDANSETRON INJ 2 MG/ML 2 ML VIAL ONE (08:01)
--- NOTE | 2017-08-26 08:57 | [facility] Post Operative Brief Note ---
Immediate Operative Summary Operative Date August 26, 2017. Pre-Operative Diagnosis Avascular Necrosis of Left Hip Post-Operative Diagnosis Avascular Necrosis of Left Hip Procedure(s) Performed Left Anterior Total Hip Arthroplasty Surgeon Dr. Teodoro Aguila Ammonia Print Operator Surgeon(s) Ernie Reed PA-C Estimated Blood Loss 250ML Findings Consistent with Post-Op Diagnosis Specimens Permanent Solution: A.) Left Femoral Head Drains None Anesthesia Type Spinal MAC Complication(s) none Disposition Disposition: Recovery Room / PACU
[2017-08-26] MEDS ORDERED: SOD PHOSPHATE/SOD BIPHOSPHATE ENEMA 132 ML BTL PR PRN (09:00)
[2017-08-26] MEDS ORDERED: TRAMADOL HCL 50 MG TAB PO PRN (09:00)
[2017-08-26] MEDS ORDERED: CARBOHYDRATES FOR HYPOGLYCEMIA PO PRN (09:00)
[2017-08-26] MEDS ORDERED: GLUCAGON FOR INJ 1 MG VIAL SQ PRN (09:00)
[2017-08-26] MEDS ORDERED: GLUCOSE 10 TABS/TUBE PO PRN (09:00)
[2017-08-26] MEDS ORDERED: DEXTROSE 50% 50 ML SYR IV PRN (09:00)
[2017-08-26] MEDS ORDERED: GLUCOSE 40% GEL 15 GM TUBE PO PRN (09:00)
[2017-08-26] MEDS ORDERED: ALBUTEROL 0.083% NEBU SOLN 3 ML VIAL INH PRN (09:00)
[2017-08-26] MEDS ORDERED: METOCLOPRAMIDE HCL INJ 5 MG/ML 2 ML VIAL IV PRN (09:00)
[2017-08-26] MEDS ORDERED: CEFAZOLIN IV 1,000 MG in DEXTROSE 5% 50ML 50 ML IV SCH (09:00)
[2017-08-26] MEDS ORDERED: BISACODYL 10 MG SUPP PR PRN (09:00)
[2017-08-26] MEDS ORDERED: MAGNESIUM HYDROXIDE SUSP 30 ML UDC PO PRN (09:00)
[2017-08-26] MEDS ORDERED: PHARMACY GLYCEMIC MGMT CONSULT PRN (09:05)
[2017-08-26] MEDS ORDERED: EpHEDrine SULFATE 50MG/5ML SYR ONE (09:23)
--- NOTE | 2017-08-26 09:53 | DIAGNOSTIC IMAGING REPORT ---
AP PELVIS, CROSSTABLE LATERAL LEFT HIP History: Left total hip arthroplasty. Degenerative arthritis. Postop. FINDINGS: The patient is status post a left total hip arthroplasty. The hardware is intact. No fracture or dislocation. Skin ant are in place. Evidence for a prior right total hip arthroplasty. IMPRESSION: Left total hip arthroplasty. No evidence for hardware complication. Electronically signed by: Troy Collier M.D. 08/26/2017 9:52 AM Dictated Date/Time: 08/26/2017 9:51 AM
--- NOTE | 2017-08-26 10:08 | DIAGNOSTIC IMAGING REPORT ---
L HIP UNILATERAL 1 VIEW CLINICAL HISTORY: 57 years-old Female presenting with LT ANTERIOR TOTAL. TECHNIQUE: 2 fluoroscopic image(s) recorded as part of an intraoperative procedure. COMPARISON: Plain radiograph from 07/26/2017. FINDINGS/IMPRESSION: Post surgical changes of total left hip arthroplasty. No malalignment. Please see surgical report for further details. Fluoroscopy dosage (mGy): 3.43. Fluoroscopy time: 35.2 seconds. Number of fluoroscopic spot images: 0. Electronically signed by: Fabrizio Velazquez M.D. 08/26/2017 10:07 AM Dictated Date/Time: 08/26/2017 10:06 AM
--- NOTE | 2017-08-26 10:29 | Anesthesiology Progress Note ---
Anesthesia Post Op Note Date & Time August 26, 2017 at 10:29 Vital Signs Pain Intensity: 0 Vital Signs Past 12 Hours Date Time Temp Pulse Resp B/P (MAP) Pulse Ox O2 Delivery O2 Flow Rate FiO2 08/26/17 10:15 64 16 98/48 97 Nasal Cannula 2 08/26/17 10:05 36.7 64 16 98/54 97 Nasal Cannula 2 08/26/17 09:55 64 16 97/57 97 Nasal Cannula 2 08/26/17 09:45 64 16 101/56 97 Nasal Cannula 2 08/26/17 09:35 64 16 99/53 100 Oxymask 10 08/26/17 09:25 64 16 119/56 100 Oxymask 10 08/26/17 09:15 36.4 66 16 112/58 100 Oxymask 10 08/26/17 05:31 37 76 20 110/68 97 Nasal Cannula 3 Notes Mental Status: alert / awake / arousable, participated in evaluation Pt Amnestic to Procedure: Yes Nausea / Vomiting: adequately controlled Pain: adequately controlled Airway Patency, RR, SpO2: stable & adequate BP & HR: stable & adequate Hydration State: stable & adequate Neuraxial Anesthesia: was administered, sensory block is resolving Anesthetic Complications: no major complications apparent
[2017-08-26] MEDS ORDERED: INSULIN HUMAN REGULAR SC SCH (11:00)
--- NOTE | 2017-08-26 11:36 | Pharmacy Progress Note ---
Pharmacy Glycemic Short Note 2 Date of Service August 26, 2017. OUTPATIENT ANTIDIABETIC REGIMEN: * NPH 10 units SQ qAM * hydrocortisone 5mg PO daily * HbA1c: pending w/ am labs (6.0% 04/30/17) ASSESSMENT: * Ms Pollock is a 57yo patient admitted for L TRINITY (POD #0). * She uses NPH at home to cover her chronic oral steroid use (hydrocortisone 5mg PO daily). * Based on A1c from April, this regimen is effective. * Novolog added with a conservative correction factor in case patient becomes hyperglycemic during admission. PLAN FOR INPATIENT GLYCEMIC CONTROL: * Basal insulin * Continue NPH 10 units SQ daily * Bolus insulin * NovoLog per scale ACHS or Q6hrs while NPO * Goal Range: Low 110 mg/dL - High 140 mg/dL * Correction Factor: 35 mg/dL/unit * Nutritional / Prandial insulin: none at this time PLAN FOR DISCHARGE: * Current A1c pending.
[2017-08-26] MEDS: METOPROLOL TARTRATE 50 MG TAB PO SCH ×2 (12:04→20:52)
--- NOTE | 2017-08-26 12:14 | Medical Consult ---
Consultation Date of Consultation: August 26, 2017. Attending Physician: Teodoro Aguila DO Reason for Consultation: post op medical mgmt History of Present Illness This is a 57yo F with a PMH of steroid dependent bronchiectasis (on home O2), HTN, steroid-induced DM II, hypogammaglobulinemia, depression and other medical problems listed below who is POD#0 s/p left TRINITY for avascular necrosis by Dr. Aguila. Patient is doing well post-operatively. States that hip pain is a 0/ 10. Denies any fever, chills, lightheadedness, headache, visual changes, sore throat, CP, SOB, abdominal pain, nausea, vomiting, dysuria or LE swelling. PCP is SHMUEL Subramanian. Patient has history of avascular necrosis and has already had R shoulder and R hip replaced. Has steroid-induced DM II and most recent hgb a1c was 6.1 in July 2017. Takes between 5-15mg of Cortef daily for bronchiectasis. Past Medical/Surgical History Medical Problems: (1) Anxiety Status: Chronic (2) Asthma Status: Chronic (3) Bronchiectasis Status: Chronic (4) Chronic respiratory failure Status: Chronic (5) COPD exacerbation Status: Resolved (6) Depression Status: Chronic (7) Diabetes mellitus, type II Status: Chronic (8) Emphysema Medical Problems: (1) Anxiety Status: Chronic (2) Asthma Status: Chronic (3) 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 Status: Chronic (4) Bronchiectasis Status: Chronic (5) Chronic respiratory failure Status: Chronic (6) COPD exacerbation Status: Resolved (7) Depression Status: Chronic (8) Diabetes mellitus, type II Status: Chronic (9) Emphysema Status: Resolved (10) GERD (gastroesophageal reflux disease) Status: Chronic (11) Hyperlipidemia Status: Chronic (12) Hypogammaglobulinemia Status: Chronic (13) Mild pulmonary hypertension Status: Chronic (14) BILL (obstructive sleep apnea) Status: Chronic (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 Permanent Comment: 2L-4L Status: Chronic (16) Pneumonia Status: Resolved (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 (18) Tachycardia Status: Chronic Surgical Problems: (1) H/O atrial septal defect repair Status: Resolved (2) H/O total shoulder replacement Status: Resolved (3) H/O: hysterectomy Status: Resolved (4) History of hysterectomy Status: Resolved (5) History of myringotomy Status: Resolved (6) History of right hip replacement Status: Resolved (7) Hx of appendectomy Status: Resolved (8) Hx of cholecystectomy Status: Resolved (9) Hx of tympanostomy tubes Status: Resolved (10) S/P bronchoscopy Status: Resolved (11) S/P section Status: Chronic (12) S/P sinus surgery Status: Resolved (13) S/P tonsillectomy and adenoidectomy Status: Resolved Family History Asthma SISTER Cancer SISTER FATHER MOTHER Diabetes mellitus Gallbladder disease Heart disease Hypertension FATHER Kidney disease Kidney stones Lung disease Social History Smoking Status: Never Smoker Alcohol Use: none Drug Use: none Marital Status: single Housing Status: lives with family Occupation Status: unemployed, other Allergies Coded Allergies: Albuterol (Verified Adverse Reaction, Mild, CHEST PAIN, LEVALBUTEROL OK, ) PT STATES "IF TAKE TOO MUCH DEVELOPS CHEST PAIN". TOLERATE LEVALBUTEROL 04/201506/14/17 - Patient reports that she does take albuterol at home, just not too frequently. Oxycodone (Verified Adverse Reaction, Mild, CAUSES DEPRESSION, 08/26/17) depression Home Medications Reported Home Medications Medications Dose Route/Sig Max Daily Dose Days Date Category Protonix (Pantoprazole Sodium) 40 Mg Tab 40 Mg PO BID 08/04/17 Reported Zofran (Ondansetron HCl) 4 Mg Tab 4 Mg PO UD PRN 08/04/17 Reported Cortef (Hydrocortisone) 5 Mg Tab 5 Mg PO QAM 07/16/17 Reported Ferrous Sulfate 325 Mg Tab 1 Tab PO HS 07/16/17 Reported Tylenol (Acetaminophen) 500 Mg Tab 1,000 Mg PO PRN 05/16/17 Reported [Immunoglobulin] 1 Dose INJ MONTHLY 05/16/17 Reported Zoloft (Sertraline HCl) 50 Mg Tab 50 Mg PO QAM 30 04/29/17 Reported Ascorbic Acid 250 Mg Tab 250 Mg PO HS 04/29/17 Reported Albuterol Sulfate (Albuterol Sulf) 2.5 Mg/3 Ml Nebu 1 Dose INH Q4H PRN 01/15/17 Reported Lopressor (Metoprolol Tartrate) 50 Mg Tab 50 Mg PO BID 11/02/16 Reported Alendronate Sodium 70 Mg Tab 70 Mg PO THURSDAY 6/23/17 Reported Novolin N (Insulin Human NPH) 100 Units/Ml Susp 10 Units SQ QAM 10/01/16 Reported Oxygen Gas 2-4 Liters NA DAILY 07/12/16 Reported Flonase Allergy Relief (Fluticasone Propionate (Nasal)) 50 Mcg/Act Spr 2 [place] ESPERANZA QAM 05/24/16 Reported Vitamin B12 (Cyanocobalamin) 1,000 Mcg Tab 1,000 Mcg PO QAM 02/23/16 Reported Folic Acid 1 Mg Tab 1 Mg PO HS 03/26/15 Reported Caltrate 600 Plus (Calcium Carbonate-Vitamin D W/) 1 Tab Tab 1 Tab PO BID 09/20/14 Reported Multivitamin (Multiple Vitamin) 1 Tab Tab 1 Tab PO QAM 09/20/14 Reported Current Inpatient Medications Current Inpatient Medications Medications (Trade) Dose Ordered Sig/Man Route Start Time Stop Time Status Last Admin Dose Admin Lactated Ringer's 1,000 ml @ 15 mls/hr Q24H IV 08/26/17 06:00 08/27/17 05:59 08/26/17 06:05 15 MLS/HR Cefazolin Sodium 15 ml @ 3.75 mls/ min PREOP IV 08/26/17 06:00 08/26/17 18:00 08/26/17 07:01 3.75 MLS/MIN Acetaminophen (Tylenol Tab) 1,000 mg PREOP PO 08/26/17 06:00 08/26/17 18:00 08/26/17 06:06 1,000 MG Famotidine (Pepcid Tab) 20 mg PREOP PO 08/26/17 06:00 08/26/17 18:00 08/26/17 06:05 20 MG Gabapentin (Neurontin Cap) 300 mg PREOP PO 08/26/17 06:00 08/26/17 18:00 08/26/17 06:06 300 MG Hydromorphone HCl (Dilaudid Inj) 0.5 mg Q5M PRN IV 08/26/17 07:30 08/26/17 13:00 Fentanyl Citrate (Fentanyl Inj) 25 mcg Q5M PRN IV 08/26/17 07:30 08/26/17 13:00 Naloxone HCl (Narcan Inj) 0.2 mg Q2M PRN IV 08/26/17 07:30 08/26/17 13:00 Meperidine HCl (Demerol Inj) 12.5 mg Q5M PRN IV 08/26/17 07:30 08/26/17 13:00 Ondansetron HCl (Zofran Inj) 4 mg ONE PRN IV 08/26/17 07:30 08/26/17 13:00 Flumazenil (Romazicon Inj) 0.2 mg Q2M PRN IV 08/26/17 07:30 08/26/17 13:00 Labetalol HCl (Normodyne IV) 5 mg Q5M PRN IV 08/26/17 07:30 08/26/17 13:00 Ephedrine Sulfate (EpHEDrine SULFATE INJ) 5 mg Q5M PRN IV 08/26/17 07:30 08/26/17 13:00 Atropine Sulfate (Atropine Sulfate 0.1mg/ml Inj) 0.5 mg Q1M PRN IV 08/26/17 07:30 08/26/17 13:00 Phenylephrine HCl (Chad-Synephrine 500MCG/5ML Syr) 100 mcg Q5M PRN IV 08/26/17 07:30 08/26/17 13:00 Albuterol Sulfate (Ventolin 0.083% 2.5MG/3ML Neb) 2.5 mg Q4H PRN INH 08/26/17 09:00 09/25/17 08:59 Ferrous Sulfate (Feosol Tab) 325 mg HS PO 08/26/17 21:00 09/25/17 20:59 Fluticasone Propionate (Flonase Nasal [place]) 2 sprays QAM ESPERANZA 08/26/17 09:00 09/25/17 08:59 Folic Acid (Folvite Tab) 1 mg HS PO 08/26/17 21:00 09/25/17 20:59 Hydrocortisone (Cortef Tab) 5 mg QAM PO 08/26/17 09:00 09/25/17 08:59 Metoprolol Tartrate (Lopressor Tab) 50 mg BID PO 08/26/17 09:00 09/25/17 08:59 Pantoprazole Sodium (Protonix Tab) 40 mg BID PO 08/26/17 21:00 09/25/17 20:59 Sertraline HCl (Zoloft Tab) 50 mg QAM PO 08/26/17 09:00 09/25/17 08:59 Glucose (Glucose 40% Gel) 15-30 GRAMS 15 GRAMS... UD PRN PO 08/26/17 09:00 09/25/17 08:59 Glucose (Glucose Chew Tab) 4-8 Tablets 4 Tabl... UD PRN PO 08/26/17 09:00 09/25/17 08:59 Dextrose (Dextrose 50% 50ML Syringe) 25-50ML 25ML FOR ... UD PRN IV 08/26/17 09:00 09/25/17 08:59 Glucagon (Glucagon Inj) 1 mg UD PRN SQ 08/26/17 09:00 09/25/17 08:59 Carbohydrates (Carbohydrates For Hypoglycemia) 15-30 GRAMS 15 grams if BSG 54-69... UD PRN PO 08/26/17 09:00 09/25/17 08:59 Miscellaneous Information (Consult Glycemic Management Pharmacy) 1 ea UD PRN N/A 08/26/17 09:05 09/25/17 09:04 Sodium Chloride 1,000 ml @ 100 mls/hr Q10H IV 08/26/17 08:50 08/27/17 08:49 Ketorolac Tromethamine (Toradol Inj) 15 mg Q6H IV. 08/26/17 12:00 08/28/17 06:01 Acetaminophen 1000 mg/Empty Bag 100 ml @ 400 mls/hr Q8H IV 08/26/17 14:00 08/27/17 13:59 Magnesium Hydroxide (Milk Of Magnesia Susp) 30 ml Q6H PRN PO 08/26/17 09:00 09/25/17 08:59 Bisacodyl (Dulcolax Supp) 10 mg DAILY PRN SC 08/26/17 09:00 09/25/17 08:59 Sodium Biphosphate/ Sodium Phosphate (Fleet Enema) 132 ml DAILY PRN SC 08/26/17 09:00 09/25/17 08:59 Senna (Senokot Tab) 17.2 mg HS PO 08/26/17 21:00 09/25/17 20:59 Docusate Sodium (coLACE CAP) 100 mg BID PO 08/26/17 09:00 09/25/17 08:59 Multivitamins (Multivitamin Tab) 1 tab QAM PO 08/26/17 09:00 09/25/17 08:59 Ondansetron HCl (Zofran Inj) 4 mg Q6H PRN IV 08/26/17 09:00 09/25/17 08:59 Metoclopramide HCl (Reglan Inj) 10 mg Q6H PRN IV 08/26/17 09:00 09/25/17 08:59 Aspirin (Ecotrin Tab) 325 mg BID PO 08/26/17 21:00 09/25/17 20:59 Tramadol HCl (Ultram Tab) 1 TABLET FOR PAIN RATING... Q4H PRN PO 08/26/17 09:00 09/25/17 08:59 Acetaminophen (Tylenol Tab) 1,000 mg Q8H PO 08/27/17 14:00 09/26/17 13:59 Cefazolin Sodium 1000 mg/Syringe 7.5 ml @ 2.5 mls/min Q8H IV 08/26/17 15:00 08/26/17 23:02 Insulin Aspart (novoLOG ASPART) SLIDING SCALE ACHS SC 08/26/17 12:00 09/25/17 11:59 Insulin Human NPH (novoLIN-N NPH) 10 units QDB SC 08/27/17 08:30 09/26/17 08:29 Review of Systems Ten systems reviewed and negative except as noted in the HPI. Physical Exam Date Time Temp Pulse Resp B/P (MAP) Pulse Ox O2 Delivery O2 Flow Rate FiO2 08/26/17 11:32 70 17 92/60 (71) 96 Nasal Cannula 2.0 08/26/17 11:04 36.5 68 17 91/57 (68) 94 Nasal Cannula 2.0 08/26/17 10:30 36.7 67 17 98/63 (75) 95 Nasal Cannula 2.0 08/26/17 10:30 95 Nasal Cannula 2.0 08/26/17 10:30 95 Nasal Cannula 2.0 08/26/17 10:15 64 16 98/48 97 Nasal Cannula 2 08/26/17 10:05 36.7 64 16 98/54 97 Nasal Cannula 2 08/26/17 09:55 64 16 97/57 97 Nasal Cannula 2 08/26/17 09:45 64 16 101/56 97 Nasal Cannula 2 08/26/17 09:35 64 16 99/53 100 Oxymask 10 5/18/18 09:25 64 16 119/56 100 Oxymask 10 08/26/17 09:15 36.4 66 16 112/58 100 Oxymask 10 08/26/17 05:31 37 76 20 110/68 97 Nasal Cannula 3 General Appearance: WD/WN, no apparent distress Head: normocephalic, atraumatic Eyes: normal inspection, PERRL, sclerae normal ENT: normal ENT inspection, hearing grossly normal, pharynx normal (moist mucous membranes ) Neck: supple, thyroid normal, trachea midline Respiratory/Chest: chest non-tender, no respiratory distress, no accessory muscle use, + wheezing (RLL inspiratory wheezing. Normal O2 saturation on 2L NC) Cardiovascular: regular rate, rhythm, no murmur, normal peripheral pulses Abdomen/GI: non tender, soft, no organomegaly Back: normal inspection Extremities/Musculoskelatal: normal inspection, no calf tenderness, normal capillary refill, no pedal edema, non-tender, + pertinent finding (L hip with surgical dressing in place. Clean, dry, intact. + Teds ) Neurologic/Psych: no motor/sensory deficits, alert, normal mood/affect, oriented x 3 Skin: normal color, warm/dry Laboratory Results Last 24 Hours Test 08/26/17 05:36 08/26/17 09:21 Bedside Glucose 120 mg/dl 146 mg/dl Assessment & Plan This is a 57yo F with a PMH of steroid dependent bronchiectasis (on home O2), HTN, steroid-induced DM II, hypogammaglobulinemia, depression and other medical problems listed below who is POD#0 s/p left TRINITY for avascular necrosis by Dr. Aguila. Left hip avascular necrosis s/p L TRINITY: -POD #0, performed by Dr. Aguila -Doing well post-operatively -Per ortho for pain control, wound care, anticoagulation and activities -Monitor H&H, continue incentive spirometry, PT/OT when appropriate Steroid-induced DM II: -A1c 6.1 in July 2017 -Hold home oral agents -Receiving 5mg cortef daily -Glycemic consult placed by primary team -BSG check AC HS HTN: -Hypotensive with SBP in low 90s post-operatively -Asymptomatic -Hold parameters for beta kleber -Maintenance fluids -Monitor Depression: -Stable -Cont Zoloft Chronic respiratory failure 2/2 bronchiectasis: -At baseline -Cont supplemental O2 -Cont home nebs GERD: -Cont PPI Hypogammaglobulinemia: -Receives monthly infusions at [facility] PCP: SHMUEL Subramanian Dispo: Per ortho Patient seen in collaboration with Dr. Elkins. Please see addendum. Thank you for this consultation. We will follow the patient with you during their hospital stay. You can reach a member of the [facility] Hospitalist Team 01/11 via pager @ ATTENDING ADDENDUM The patient was seen and examined in presence of family members She is a status post left hip TRINITY Complains to have cough, right lower chest wall pain and diarrhea No other significant complaints on examination Hemodynamically stable Chest- clear Heart -regular Abdomen benign Extremities no edema Labs, EKG and imaging studies reviewed Will send stool for C. difficile colitis and culture Try Voltaren gel for pain Agree with assessment and plan as mentioned above. Dr. Rafael Elkins
[2017-08-26] MEDS: FLUTICASONE PROPIONATE NA SPR 16 GM BTL NAE SCH (12:24)
[2017-08-26] MEDS: HYDROCORTISONE 10 MG TAB PO SCH (12:25)
[2017-08-26] MEDS: SERTRALINE HCL 50 MG TAB PO SCH (12:25)
[2017-08-26] MEDS: DOCUSATE SODIUM 100 MG CAP PO SCH ×2 (12:25→20:48)
[2017-08-26] MEDS: MULTIVITAMIN TAB PO SCH (12:25)
[2017-08-26] MEDS: SODIUM CHLORIDE 0.9% 1000ML 1,000 ML IV SCH ×2 (12:27→22:24)
[2017-08-26] MEDS: KETOROLAC TROMETHAMINE 15 MG/ML VIAL IV. SCH ×2 (12:30→17:57)
[2017-08-26] MEDS: INSULIN ASPART 100 UNITS/ML 3 ML PEN SC SCH ×3 (12:33→20:47)
[2017-08-26] MEDS ORDERED: ACETAMINOPHEN IV 1,000 MG in EMPTY BAG 0 ML IV SCH (14:00)
[2017-08-26] MEDS: CEFAZOLIN IV 1,000 MG in SYRINGE 0 ML IV SCH ×2 (14:13→22:24)
--- NOTE | 2017-08-26 15:51 | OPERATIVE REPORT ---
DATE OF OPERATION: 08/26/2017 PREOPERATIVE DIAGNOSIS: Avascular necrosis of the left hip. POSTOPERATIVE DIAGNOSIS: Avascular necrosis of the left hip. PROCEDURE: Left total hip arthroplasty. SURGEON: Dr. Teodoro Aguila INSPECTOR TOOL: Jorge Luis Reed PA-C, whose assistance was necessary for retraction and closure. ANESTHESIA: Spinal. COMPLICATIONS: None. CONDITION: Stable to PACU. IMPLANTS USED: I used a Biomet Taperloc total hip arthroplasty system with a size 50 mm G7 cup, a single 30 mm screw, 36 mm E-poly neutral liner, a size 11 standard offset Taperloc stem, and a 36-mm ceramic head with a -6 neck. INDICATIONS: Valery is a pleasant 57-year-old female who presented to my office with chronic increasing bilateral hip pain. X-rays and clinical examination were diagnostic for collapse and avascular necrosis of both hips. She underwent a right total hip arthroplasty about 3 months ago, has done well with that. She elected to proceed with a left total hip arthroplasty. OPERATION AND FINDINGS: On 08/26/2017, she arrived at [facility] for the above procedure. She was seen in the preoperative holding area and the operative extremity was identified and signed. She was given a preoperative antibiotic and a spinal anesthetic. She was taken back to the operating room, laid on the table in supine position, and given basic sedation. The left hip was then brought out to a PURIST leg positioner. The left hip was then prepped and draped in sterile fashion. Time-out was done. The patient's operative extremity was properly identified. An anterior approach was used. Dissection was taken down through the fascia and the rectus was retracted medially and the tensor fascia muscle was retracted laterally. The circumflex vessels were ligated. The capsule was then incised and tagged for later repair. The femoral neck was then resected and the femoral head was removed. The acetabulum was exposed. Time was spent doing a complete circumferential labral release. Sequential reaming of the acetabulum up to a size 49 reamer was done. Final reamings were done under fluoroscopy to ensure appropriate version. I was able to get good circumferential bleeding bone and a size 50 mm G7 cup was then impacted into place. A single 36 mm screw was placed. A neutral E1 poly liner was then snapped into place. The proximal femur was then exposed. Sequential broaching up to a size 11 broach was done. A standard head and neck assembly was applied. The hip was reduced. I was happy with the size of the components, but her leg seemed to be very long. The hip was then dislocated and a -6 was trialed. This seemed to be a better fit. The broach was then removed. The final size 11 standard offset Taperloc stem was then impacted into place. A 36-mm ceramic head with a -6 neck was then impacted into place. The hip was reduced. Final fluoroscopic images showed anatomic alignment. The surrounding soft tissues were then injected with 100 mL of orthopedic pain control cocktail. The joint was then irrigated with 3 L of normal saline solution with bacitracin. The capsule was closed with #1 Vicryl suture. The fascia was closed with #1 PDS suture. Skin was closed with 2-0 Vicryl and ant. A Prevena VAC dressing was placed. She was then taken to the postanesthesia care unit in stable condition. She tolerated the procedure well. I attest to the content of the Intraoperative Record and any orders documented therein. Any exception s are noted below.
[2017-08-26] MEDS ORDERED: HYDR-5688 PO (16:49)
[2017-08-26] MEDS ORDERED: ASPEC325 PO (16:49)
--- NOTE | 2017-08-26 16:50 | Discharge Instructions ---
Discharge Instructions Date of Service August 26, 2017. Admission Reason for Admission: Left Hip Avascular Necrosis Discharge Discharge Diagnosis / Problem: Left Total Hip Discharge Goals Goal(s): Decrease discomfort, Improve function Activity Recommendations Activity Limitations: as noted below . Instructions / Follow-Up Instructions / Follow-Up Activity and Therapy Recommendations: * If you are using [facility] then Physical Therapy will be provided until they feel you are ready to start Outpatient Physical Therapy. If you are not using a Home Health agency then Outpatient Physical Therapy should start about 3-5 days from your day of surgery. Therapy will last about 3-6 weeks * You were shown a series of exercises in the hospital. Do these exercises three times each day including the exercises you were shown in physical therapy. * Get up and walk several times each day.~ For the first four weeks, try not to stand or walk for more than one hour at a time. If you do stand or walk for more than one hour, you will not hurt anything, but your leg will likely swell.~ ~ * As you feel comfortable, you may change from the walker or crutches to a cane and~then to independent walking. Medications: * Narcotic You will likely be sent home from the hospital with a prescription for the narcotic pain medication that worked best throughout your stay. * Aspirin Most patients will be required to take Aspirin 325mg twice a day for 6 weeks after surgery. This is obtained [id number] and a prescription is not necessary. * Other medications may be prescribed for specific circumstances. If you have any questions, please call the office at . * Resume previous home medications unless otherwise instructed TEDs/Elastic Stockings: The white elastic stockings help limit swelling and prevent blood clots from forming in your legs. The more you wear them, the more they work. Wear them for six weeks. Dressing Care: You will likely have a purple VAC dressing after surgery. This dressing will keep the incision dry and promote early healing. After about 8 days the batteries will wear out and the VAC will lose suction. Simply remove the dressing at that time and throw everything away, including the small suction machine. Then, you may leave the ant open to air or cover them with a dry dressing so they do not rub on your pants. The ant will be removed at your 2 week follow-up appointment. Showering: You may shower immediately with the purple VAC dressing. Let the shower spray hit your opposite side and slowly pat the plastic dry. Do not soak the dressing. After the dressing is removed you may shower normally with the ant exposed. Let soapy water run over the ant and pat them dry. Things To Watch For: * Drainage from the incision site that occurs more than one week after your surgery. * Increased redness at the incision site. * Fever above 102 degrees Fahrenheit. * Unusual chest pain or shortness of breath. * Call [facility] at with any of the above problems Follow-Up Visit: Follow-up with Dr. Aguila 2 weeks after your day of surgery. An appointment was probably scheduled when you signed-up for surgery in the office. If you have any questions call Office Instructions: More detailed instructions as well as Frequently Asked Questions were provided in a folder by our office when you signed-up for surgery. Please review these instructions when you get home. If you have any further questions or concerns, please feel free to call the office at [phone] Current Hospital Diet Patient's current hospital diet: Diabetes Type 2 Diet Discharge Diet Recommended Diet: Diabetes Type 2 Diet Procedures Procedures Performed: Left Anterior Total Hip Arthroplasty Pending Studies Studies pending at discharge: no Medical Emergencies . Who to Call and When: Medical Emergencies: If at any time you feel your situation is an emergency, please call [phone] immediately. . Non-Emergent Contact Non-Emergency issues call your: Surgeon Call Non-Emergent contact if: wound has increased drainage, wound has increased redness . "Provider Documentation" section prepared by Teodoro Aguila. .
--- NOTE | 2017-08-26 17:20 | PROGRESS NOTE ---
DATE: 08/26/2017 CHIEF COMPLAINT: Status post left total hip arthroplasty, postop day 0. SUBJECTIVE: Valery was seen and examined at bedside today. She is lying down comfortably. She already ambulated to use the bathroom. She has not had any diarrhea since the surgery. Her pain is controlled. She has no complaints. OBJECTIVE: She is lying with her leg in full extension. The Prevena VAC dressing is to suction. She has active dorsiflexion and plantarflexion of her left ankle. IMAGING: X-rays postoperatively of the left hip show the prosthesis to be well fitting. It is in anatomic alignment with no evidence of fracture, dislocation, or loosening. IMPRESSION: Status post left total hip arthroplasty, postop day 0. PLAN: At this point, she is doing well and happy with her progress. She does not have much pain. Will use [place] for pain control. She took tramadol for her last surgery, and she feels it may have caused some of her breathing problems. We will use aspirin 325 mg twice a day for DVT prophylaxis. I do have medicine consulted for her lung issues as well as her chronic diarrhea.
[2017-08-26] MEDS: SENNA 8.6 MG TAB PO SCH (20:48)
[2017-08-26] MEDS: ASPIRIN 325 MG ECTAB PO SCH (20:49)
[2017-08-26] MEDS: PANTOprazole SOD 40 MG TAB PO SCH (20:49)
[2017-08-26] MEDS: FERROUS SULFATE 325 MG TAB PO SCH (20:49)
[2017-08-26] MEDS: DICLOFENAC SOD 1% GEL 100 GM TUBE EXT SCH (20:56)
[2017-08-27] VITALS (8 sets, daily range): BP systolic 90–127; BP diastolic 53–73; PULSE 70–108; TEMP 36.7–36.8; O2SAT 91–98
[2017-08-27] MEDS: KETOROLAC TROMETHAMINE 15 MG/ML VIAL IV. SCH ×5 (00:57→23:43)
[2017-08-27] MEDS: VANCOMYCIN HCL 125 MG/2.5ML SOLN PO SCH ×4 (02:43→20:30)
[2017-08-27] MEDS: RASPBERRY SYRUP 5 ML UDP PO SCH ×4 (02:43→20:31)
[2017-08-27] MEDS: HYDROCODONE/ACETAMIN 5/325MG TAB PO PRN ×3 (02:44→22:43)
[2017-08-27] MEDS: SODIUM CHLORIDE 0.9% 1000ML 1,000 ML IV SCH (05:56)
[2017-08-27] MEDS ORDERED: VANCOMYCIN HCL 125 MG/2.5ML SOLN PO SCH (06:00)
[2017-08-27 06:47] LABS: HEMATOCRIT 25.4 % (37-47); HEMOGLOBIN 7.6 g/dL (12.0-16.0); MEAN CELL VOLUME 82.2 fL (80-100); MEAN CORPUSCULAR HEMOGLOBIN 24.6 pg (25-34); MEAN CORPUSCULAR HGB CONC 29.9 g/dl (32-36); MEAN PLATELET VOLUME 8.2 fL (7.4-10.4); PLATELET COUNT 176 K/uL (130-400); RED CELL DISTRIBUTION WIDTH CV 15.9 % (11.5-14.5); RED CELL DISTRIBUTION WIDTH SD 47.6 fL (36.4-46.3); WHITE BLOOD COUNT 9.78 K/uL (4.8-10.8)
[2017-08-27 06:56] LABS: HEMOGLOBIN A1C 5.9 % (4.5-5.6)
[2017-08-27 07:21] LABS: CALCIUM 7.8 mg/dl (8.5-10.1); CREATININE 0.54 mg/dl (0.60-1.20); POTASSIUM 3.9 mmol/L (3.5-5.1)
[2017-08-27 07:27] LABS: BASO % 0.1 %; BASO ABS # 0.01 K/uL (0-0.2); EOS % 3.1 %; IG# 0.03 K/uL (0.00-0.02); LYMPH % 12.4 %; LYMPH ABS # 1.21 K/uL (1.2-3.4); MONO % 6.9 %; MONO ABS # 0.67 K/uL (0.11-0.59); NEUT % 77.2 %; NEUT ABS # 7.56 K/uL (1.4-6.5)
[2017-08-27] MEDS: DOCUSATE SODIUM 100 MG CAP PO SCH ×2 (08:35→20:33)
[2017-08-27] MEDS: FLUTICASONE PROPIONATE NA SPR 16 GM BTL NAE SCH (08:36)
[2017-08-27] MEDS: SERTRALINE HCL 50 MG TAB PO SCH (08:36)
[2017-08-27] MEDS: MULTIVITAMIN TAB PO SCH (08:36)
[2017-08-27] MEDS: PANTOprazole SOD 40 MG TAB PO SCH ×2 (08:37→20:35)
[2017-08-27] MEDS: ASPIRIN 325 MG ECTAB PO SCH ×2 (08:37→20:34)
[2017-08-27] MEDS: HYDROCORTISONE 10 MG TAB PO SCH (08:38)
[2017-08-27] MEDS: METOPROLOL TARTRATE 50 MG TAB PO SCH ×2 (08:40→20:34)
[2017-08-27] MEDS: INSULIN ASPART 100 UNITS/ML 3 ML PEN SC SCH ×4 (08:45→20:33)
[2017-08-27] MEDS: INSULIN HUMAN NPH SC SCH (08:45)
[2017-08-27] MEDS: DICLOFENAC SOD 1% GEL 100 GM TUBE EXT SCH ×3 (08:49→20:31)
--- NOTE | 2017-08-27 09:15 | PROGRESS NOTE ---
DATE: 08/27/2017 CHIEF COMPLAINT: Status post left total hip arthroplasty, postop day number 1. PROGRESS: Valery was seen and examined at bedside today. She was sitting up on the edge of her bed. She has been able to ambulate some around the room last night. She states she has little to no pain in her left hip. She is happy with her progress at this point. Unfortunately, she has been having diarrhea. That was tested last night for C. diff and it came back positive. PHYSICAL EXAMINATION: She is sitting with her hip flexed to 90 degrees. The Prevena VAC dressing is to suction. She has active dorsiflexion and plantarflexion of her left ankle and sensation is intact. Vital signs are stable on 3 L of nasal cannula. She is a little hypotensive. She has had 3 bowel movements since the surgery. She is voiding on her own. LABORATORY DATA: Labs are still pending for this morning. Stool sample was positive for C. diff toxin. IMPRESSION: 1. Status post left total hip arthroplasty, postoperative day number 1. 2. Clostridium difficile. PLAN: With regard to her hip, she is doing fairly well. She can be up and weightbearing as tolerated. We have the Prevena VAC dressing in place to protect the incision site. She is on aspirin 325 mg twice a day for DVT prophylaxis and is taking [place] for pain. With regard to her C. diff, medicine team is already on board. They started her on Ancef and started her on oral vancomycin. We will continue to monitor her lungs as well. She will likely be in the hospital at least until Tuesday. She is planning on discharged to her sister's house with [facility] when ready. We will continue to follow her closely.
[2017-08-27] MEDS: ACETAMINOPHEN 500 MG TAB PO SCH ×2 (14:33→21:30)
--- NOTE | 2017-08-27 15:06 | Progress Note ---
Internal Med Progress Note Date of Service: August 27, 2017. Provider Documentation: SUBJECTIVE: The patient was seen and examined Much Better today diarrhea is a little bit controlled Pain is better OBJECTIVE: Vital Signs-as noted below Exam: General-No distress at rset Eyes-normal ENT-normal Neck-supple Lungs-clear to auscultate bilaterally Heart-Regular Abdomen-Benign Extremities- Neuro-Trace edema bilaterally Lab data as noted below. 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 Aguila. C Diff Colitis Started on Jerir Vancomycin Clinically improving Will need 14 days of treatment in total Left hip avascular necrosis s/p L TRINITY: -POD #1, performed by Dr. Aguila -Doing well post-operatively -Per ortho for pain control, wound care, anticoagulation and activities -Monitor H&H, continue incentive spirometry, PT/OT when appropriate -Hb dropped to 7.6 -will recheck in AM Steroid-induced DM II: -A1c 6.1 in July 2017 -Hold home oral agents -Receiving 5mg cortef daily -Glycemic consult placed by primary team -BSG check AC HS HTN: -Hypotensive with SBP in low 90s post-operatively -Asymptomatic -Hold parameters for beta kleber Depression: -Stable -Cont Zoloft Chronic respiratory failure 2/2 bronchiectasis: -At baseline -Cont supplemental O2 -Cont home nebs GERD: -Cont PPI Hypogammaglobulinemia: -Receives monthly infusions at [facility] Vital Signs: Date Time Temp Pulse Resp B/P (MAP) Pulse Ox O2 Delivery O2 Flow Rate FiO2 08/27/17 11:12 36.8 76 16 90/55 (67) 91 Nasal Cannula 4.0 08/27/17 08:20 75 100/61 (74) 08/27/17 07:50 96 Nasal Cannula 3.0 08/27/17 07:20 36.8 70 16 96/62 (73) 98 Nasal Cannula 4.0 08/27/17 04:12 36.7 71 16 95/60 (72) 98 Nasal Cannula 3.0 08/27/17 00:25 Nasal Cannula 4.0 08/26/17 22:56 36.7 64 18 98/63 (75) 100 Nasal Cannula 3.0 08/26/17 19:23 36.5 68 16 101/70 (80) 100 Nasal Cannula 4.0 08/26/17 16:00 Nasal Cannula 2.0 08/26/17 15:09 36.7 65 16 98/59 (72) 98 Nasal Cannula 2.0 Lab Results: Results Past 24 Hours Test 08/26/17 17:23 08/26/17 20:39 08/27/17 06:30 08/27/17 08:18 Range/Units Bedside Glucose 132 185 149 70-90 mg/dl White Blood Count 9.78 4.8-10.8 K/uL Red Blood Count 3.09 4.2-5.4 M/uL Hemoglobin 7.6 12.0-16.0 g/dL Hematocrit 25.4 37-47 % Mean Corpuscular Volume 82.2 80-100 fL Mean Corpuscular Hemoglobin 24.6 25-34 pg Mean Corpuscular Hemoglobin Concent 29.9 32-36 g/dl Platelet Count 176 130-400 K/uL Mean Platelet Volume 8.2 7.4-10.4 fL Neutrophils (%) (Auto) 77.2 % Lymphocytes (%) (Auto) 12.4 % Monocytes (%) (Auto) 6.9 % Eosinophils (%) (Auto) 3.1 % Basophils (%) (Auto) 0.1 % Neutrophils # (Auto) 7.56 1.4-6.5 K/uL Lymphocytes # (Auto) 1.21 1.2-3.4 K/uL Monocytes # (Auto) 0.67 0.11-0.59 K/uL Eosinophils # (Auto) 0.30 0-0.5 K/uL Basophils # (Auto) 0.01 0-0.2 K/uL RDW Standard Deviation 47.6 36.4-46.3 fL RDW Coefficient of Variation 15.9 11.5-14.5 % Immature Granulocyte % (Auto) 0.3 % Immature Granulocyte # (Auto) 0.03 0.00-0.02 K/uL Red Blood Cell Morphology Unremarkable Sodium Level 139 136-145 mmol/L Potassium Level 3.9 3.5-5.1 mmol/L Chloride Level 105 98-107 mmol/L Carbon Dioxide Level 30 21-32 mmol/L Anion Gap 4.0 3-11 mmol/L Blood Urea Nitrogen 12 7-18 mg/dl Creatinine 0.54 0.60-1.20 mg/dl Est Creatinine Clear Calc Drug Dose 109.9 ml/min Estimated GFR () 122.3 Estimated GFR (Non- 105.5 BUN/Creatinine Ratio 21.5 10-20 Random Glucose 106 70-99 mg/dl Estimated Average Glucose 123 mg/dl Hemoglobin A1c 5.9 4.5-5.6 % Calcium Level 7.8 8.5-10.1 mg/dl Test 08/27/17 12:03 Range/Units Bedside Glucose 123 70-90 mg/dl Microbiology Results 08/26/17 C.difficile Toxin B Gene (PCR) - Final, Complete Positive for C. difficile toxin B gene 08/26/17 Shiga Toxin Test, Received Pending 08/26/17 Stool Culture, Received Pending
[2017-08-27] MEDS: SENNA 8.6 MG TAB PO SCH (20:33)
[2017-08-27] MEDS: FERROUS SULFATE 325 MG TAB PO SCH (20:33)
[2017-08-27] MEDS ORDERED: ACETAMINOPHEN 500 MG TAB PO SCH (22:00)
[2017-08-28] VITALS (18 sets, daily range): BP systolic 86–133; BP diastolic 57–82; PULSE 64–92; TEMP 36.5–37.1; O2SAT 93–100
[2017-08-28] MEDS: RASPBERRY SYRUP 5 ML UDP PO SCH ×4 (01:41→20:39)
[2017-08-28] MEDS: VANCOMYCIN HCL 125 MG/2.5ML SOLN PO SCH ×4 (01:42→20:40)
[2017-08-28 06:14] LABS: CALCIUM 7.6 mg/dl (8.5-10.1); CREATININE 0.56 mg/dl (0.60-1.20)
[2017-08-28] MEDS: ACETAMINOPHEN 500 MG TAB PO SCH (06:21)
[2017-08-28] MEDS: KETOROLAC TROMETHAMINE 15 MG/ML VIAL IV. SCH (06:23)
[2017-08-28 06:31] LABS: HEMATOCRIT 22.3 % (37-47); HEMOGLOBIN 6.9 g/dL (12.0-16.0); MEAN CELL VOLUME 82.6 fL (80-100); MEAN CORPUSCULAR HEMOGLOBIN 25.6 pg (25-34); MEAN CORPUSCULAR HGB CONC 30.9 g/dl (32-36); MEAN PLATELET VOLUME 8.9 fL (7.4-10.4); PLATELET COUNT 179 K/uL (130-400); RED CELL DISTRIBUTION WIDTH CV 16.2 % (11.5-14.5); RED CELL DISTRIBUTION WIDTH SD 48.9 fL (36.4-46.3); WHITE BLOOD COUNT 6.99 K/uL (4.8-10.8)
[2017-08-28] MEDS: INSULIN ASPART 100 UNITS/ML 3 ML PEN SC SCH ×4 (07:14→20:43)
[2017-08-28] MEDS: INSULIN HUMAN NPH SC SCH (07:25)
[2017-08-28] MEDS: HYDROCORTISONE 10 MG TAB PO SCH (07:34)
[2017-08-28] MEDS: SERTRALINE HCL 50 MG TAB PO SCH (07:35)
[2017-08-28] MEDS: DOCUSATE SODIUM 100 MG CAP PO SCH ×2 (07:35→20:40)
[2017-08-28] MEDS: MULTIVITAMIN TAB PO SCH (07:35)
[2017-08-28] MEDS: ASPIRIN 325 MG ECTAB PO SCH ×2 (07:35→20:41)
[2017-08-28] MEDS: PANTOprazole SOD 40 MG TAB PO SCH ×2 (07:35→20:41)
[2017-08-28] MEDS: FLUTICASONE PROPIONATE NA SPR 16 GM BTL NAE SCH (07:36)
[2017-08-28] MEDS: DICLOFENAC SOD 1% GEL 100 GM TUBE EXT SCH ×3 (07:37→20:40)
[2017-08-28] MEDS: METOPROLOL TARTRATE 50 MG TAB PO SCH ×2 (07:40→20:41)
--- NOTE | 2017-08-28 09:15 | PROGRESS NOTE ---
DATE: 08/28/2017 SUBJECTIVE: A 57-year-old white female postop day 2 from a left hip replacement done for AVN. She is doing pretty well. Pain is controlled. She is pretty anemic this morning. Really not have much in the way of symptoms. Pain is controlled. OBJECTIVE: VITAL SIGNS: Temperature 36.8. Vital signs stable. PHYSICAL EXAMINATION: GENERAL: Reveals a pleasant, middle-aged female. She is sitting in her bedside chair with her oxygen in place. Looks pretty comfortable. EXTREMITIES: Examination of left hip and leg reveals the wound vac/dressing to be in place. Hip is located. She is neurologically intact. LABORATORY DATA: Hemoglobin is 6.9. Hematocrit 22.3. Electrolytes are stable. ASSESSMENT: A 57-year-old white female with multiple comorbidities postop day 2 from a left total hip replacement, doing reasonably well. She is significantly anemic and the medicine team has ordered her some blood. The pain is controlled. Hip is located. She is neurologically intact. PLAN: 1. DVT prophylaxis including thigh high TEDs, SCDs, and aspirin twice a day. 2. PT/OT. Weight bear as tolerated. Left total hip protocol. 3. Pain control, doing well with current pain regimen. 4. Anemia. She is getting some blood as per the medicine service. 5. Disposition: She is hoping to be discharged to her sister's house once medically stable.
--- NOTE | 2017-08-28 09:47 | Pharmacy Progress Note ---
Pharmacy Glycemic Short Note 2 Date of Service August 28, 2017. OUTPATIENT ANTIDIABETIC REGIMEN: * NPH 10 units SQ qAM * hydrocortisone 5mg PO daily * HbA1c: 5.9% on 08/27/17 Test 08/27/17 12:03 08/27/17 16:46 08/27/17 20:29 08/28/17 05:21 Bedside Glucose 123 mg/dl (70-90) 141 mg/dl (70-90) 135 mg/dl (70-90) Random Glucose 91 mg/dl (70-99) Test 08/28/17 06:31 Bedside Glucose 98 mg/dl (70-90) ASSESSMENT: * POD #2 s/p L TRINITY * BSGs are stable on current regimen of NPH 10 units qAM (to cover steroid) and correctional insulin * No changes necessary PLAN FOR INPATIENT GLYCEMIC CONTROL: * Basal insulin - no change * NPH 10 units SQ daily * Bolus insulin - no change * NovoLog per scale ACHS or Q6hrs while NPO * Goal Range: Low 110 mg/dL - High 140 mg/dL * Correction Factor: 35 mg/dL/unit * Nutritional / Prandial insulin: None PLAN FOR DISCHARGE: * A1c indicates excellent outpatient control * Resume outpatient regimen on discharge as long as patient not experiencing hypoglycemia at home
--- NOTE | 2017-08-28 13:35 | Progress Note ---
Internal Med Progress Note Date of Service: August 28, 2017. Provider Documentation: SUBJECTIVE: The patient was seen and examined Much Better today diarrhea is a little bit controlled Pain is better /20 Generally weak and lethargic No more diarrhea OBJECTIVE: Vital Signs-as noted below Exam: General-No distress at rset Eyes-normal ENT-normal Neck-supple Lungs-clear to auscultate bilaterally Heart-Regular Abdomen-Benign Extremities- Neuro-Trace edema bilaterally Lab data as noted below. 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 Aguila. Acute Blood loss Anemia Complicated by C Diff colitis and passively IVF Generally weak Will give 2 units of PRBC Check CBC in AM C Diff Colitis Started on Jerri Vancomycin Clinically improving Will need 14 days of treatment in total Left hip avascular necrosis s/p L TRINITY: -POD #2, performed by Dr. Aguila -Doing well post-operatively -Per ortho for pain control, wound care, anticoagulation and activities -Monitor H&H, continue incentive spirometry, PT/OT when appropriate -Hb dropped to 7.6 -will recheck in AM - and plan as above Steroid-induced DM II: -A1c 6.1 in July 2017 -Hold home oral agents -Receiving 5mg cortef daily -Glycemic consult placed by primary team -BSG check AC HS HTN: -Hypotensive with SBP in low 90s post-operatively -Asymptomatic -Hold parameters for beta kleber Depression: -Stable -Cont Zoloft Chronic respiratory failure 2/2 bronchiectasis: -At baseline -Cont supplemental O2 -Cont home nebs GERD: -Cont PPI Hypogammaglobulinemia: -Receives monthly infusions at [facility] Vital Signs: Date Time Temp Pulse Resp B/P (MAP) Pulse Ox O2 Delivery O2 Flow Rate FiO2 08/28/17 13:23 36.8 75 20 103/68 99 3.0 08/28/17 12:30 36.8 70 19 101/65 93 2.0 08/28/17 11:55 36.8 75 20 107/66 93 2.0 08/28/17 11:25 36.7 68 16 94/61 99 2.0 08/28/17 11:10 36.5 64 16 93/59 99 08/28/17 10:51 36.6 68 18 86/57 98 2.0 08/28/17 07:41 78 115/69 (84) 08/28/17 07:15 Nasal Cannula 3.0 08/28/17 07:08 36.8 71 18 100/67 (78) 98 Nasal Cannula 2.0 08/28/17 06:26 36.6 92 20 110/68 (82) 93 Nasal Cannula 3.0 08/27/17 23:35 Nasal Cannula 3.0 08/27/17 22:46 36.7 70 18 108/53 (71) 96 Nasal Cannula 3.0 08/27/17 20:37 108 127/73 (91) 08/27/17 15:45 Nasal Cannula 3.0 08/27/17 15:13 36.7 78 17 98/62 (74) 98 Nasal Cannula 3.0 Lab Results: Results Past 24 Hours Test 08/27/17 16:46 08/27/17 20:29 08/28/17 05:21 08/28/17 06:31 Range/Units Bedside Glucose 141 135 98 70-90 mg/dl White Blood Count 6.99 4.8-10.8 K/uL Red Blood Count 2.70 4.2-5.4 M/uL Hemoglobin 6.9 12.0-16.0 g/dL Hematocrit 22.3 37-47 % Mean Corpuscular Volume 82.6 80-100 fL Mean Corpuscular Hemoglobin 25.6 25-34 pg Mean Corpuscular Hemoglobin Concent 30.9 32-36 g/dl RDW Standard Deviation 48.9 36.4-46.3 fL RDW Coefficient of Variation 16.2 11.5-14.5 % Platelet Count 179 130-400 K/uL Mean Platelet Volume 8.9 7.4-10.4 fL Sodium Level 142 136-145 mmol/L Potassium Level 4.0 3.5-5.1 mmol/L Chloride Level 108 98-107 mmol/L Carbon Dioxide Level 30 21-32 mmol/L Anion Gap 4.0 3-11 mmol/L Blood Urea Nitrogen 10 7-18 mg/dl Creatinine 0.56 0.60-1.20 mg/dl Est Creatinine Clear Calc Drug Dose 106.0 ml/min Estimated GFR () 120.8 Estimated GFR (Non- 104.2 BUN/Creatinine Ratio 18.1 10-20 Random Glucose 91 70-99 mg/dl Calcium Level 7.6 8.5-10.1 mg/dl Test 08/28/17 12:17 08/28/17 13:08 Range/Units Bedside Glucose 101 70-90 mg/dl Stool Occult Blood NEGATIVE NEGATIVE
[2017-08-28] MEDS ORDERED: NURSING VERBAL MED ORDER ONE (14:45)
[2017-08-28] MEDS ORDERED: ACETAMINOPHEN 500 MG TAB PO PRN ×2 (15:00)
[2017-08-28] MEDS: HYDROCODONE/ACETAMIN 5/325MG TAB PO PRN (18:17)
[2017-08-28 20:08] LABS: HEMATOCRIT 29.9 % (37-47); HEMOGLOBIN 9.2 g/dL (12.0-16.0)
[2017-08-28] MEDS: SENNA 8.6 MG TAB PO SCH (20:41)
[2017-08-28] MEDS: FERROUS SULFATE 325 MG TAB PO SCH (20:41)
[2017-08-29] MEDS: HYDROCODONE/ACETAMIN 5/325MG TAB PO PRN ×5 (00:02→23:08)
[2017-08-29] MEDS: VANCOMYCIN HCL 125 MG/2.5ML SOLN PO SCH ×4 (02:16→20:32)
[2017-08-29] MEDS: RASPBERRY SYRUP 5 ML UDP PO SCH ×4 (02:16→20:33)
[2017-08-29 05:57] VITALS: BP 106/68; PULSE 80; TEMP 36.8; O2SAT 95
[2017-08-29 05:58] LABS: HEMATOCRIT 27.7 % (37-47); HEMOGLOBIN 8.7 g/dL (12.0-16.0); MEAN CELL VOLUME 82.2 fL (80-100); MEAN CORPUSCULAR HEMOGLOBIN 25.8 pg (25-34); MEAN CORPUSCULAR HGB CONC 31.4 g/dl (32-36); PLATELET COUNT 196 K/uL (130-400); RED CELL DISTRIBUTION WIDTH CV 16.3 % (11.5-14.5); RED CELL DISTRIBUTION WIDTH SD 49.3 fL (36.4-46.3); WHITE BLOOD COUNT 9.11 K/uL (4.8-10.8)
[2017-08-29 06:20] LABS: CALCIUM 7.8 mg/dl (8.5-10.1); CREATININE 0.49 mg/dl (0.60-1.20)
--- NOTE | 2017-08-29 07:43 | Pharmacy Progress Note ---
Pharmacy Glycemic Sign Off Nt Date of Service August 29, 2017. Assessment & Plan ASSESSMENT: * Pharmacy was consulted by Dr Aguila on 08/26/17 for glycemic control and to write orders per [facility] inpatient glycemic control protocol. * Major changes made by pharmacy to antidiabetic regimen include: * None, just resumed outpatient regimen of NPH 10 units SQ daily with PO hydrocortisone {outpatient dosing} * Patient has been receiving/requiring 10 units of insulin per day for adequate glycemic control * BSGs ranging 94 - 124 mg/dl * Regimen has only required minor adjustments over the past 48hrs to achieve this level of control * Do not anticipate further changes in patient status that would quickly deteriorate glycemic control (i.e. patient to be NPO for upcoming procedure, steroids tapering, starting tube feedings, etc). PLAN FOR INPATIENT GLYCEMIC CONTROL: No changes needed to current regimen. * Continue basal insulin with NPH 10 units SQ daily with PO hydrocortisone { outpatient dosing} * Continue NovoLog per scale ACHS/Q6hrs while NPO * Goal range = 110 - 140 mg/dl * CF = 35 mg/dl/unit * No CR needed * A1c added to discharge instructions to be communicated to PCP. * Pharmacy is signing off of glycemic consult and will no longer be making adjustments to inpatient regimen. Please feel free to re-consult if needed. Thank you. DISCHARGE RECOMMENDATIONS: * A1c 5.9 % on 08/27/17 * No changes needed to outpatient regimen
--- NOTE | 2017-08-29 07:48 | Anesthesiology Progress Note ---
Anesthesia Post Op Note Date & Time August 29, 2017 at 07:48 Vital Signs Pain Intensity: 7.0 Vital Signs Past 12 Hours Date Time Temp Pulse Resp B/P (MAP) Pulse Ox O2 Delivery O2 Flow Rate FiO2 08/29/17 05:57 36.8 80 19 106/68 (81) 95 Nasal Cannula 2.0 08/28/17 23:29 37.1 69 18 114/73 (87) 97 Nasal Cannula 2.0 08/28/17 20:50 Nasal Cannula 08/28/17 20:38 90 127/74 (91) Notes Mental Status: alert / awake / arousable, participated in evaluation Pt Amnestic to Procedure: Yes Nausea / Vomiting: adequately controlled Pain: adequately controlled Airway Patency, RR, SpO2: stable & adequate BP & HR: stable & adequate Hydration State: stable & adequate Neuraxial Anesthesia: was administered, sensory block resolved Anesthetic Complications: no major complications apparent
[2017-08-29 08:00] VITALS: BP 115/74; PULSE 90; TEMP 36.8; O2SAT 92
[2017-08-29] MEDS: INSULIN ASPART 100 UNITS/ML 3 ML PEN SC SCH ×4 (08:00→20:38)
[2017-08-29] MEDS: FLUTICASONE PROPIONATE NA SPR 16 GM BTL NAE SCH (08:04)
[2017-08-29 08:05] VITALS: BP 113/72; PULSE 87
[2017-08-29] MEDS: METOPROLOL TARTRATE 50 MG TAB PO SCH ×2 (08:05→20:37)
[2017-08-29] MEDS: DICLOFENAC SOD 1% GEL 100 GM TUBE EXT SCH ×3 (08:07→20:34)
[2017-08-29] MEDS: DOCUSATE SODIUM 100 MG CAP PO SCH ×2 (08:08→20:36)
[2017-08-29] MEDS: HYDROCORTISONE 10 MG TAB PO SCH (08:09)
[2017-08-29] MEDS: SERTRALINE HCL 50 MG TAB PO SCH (08:09)
[2017-08-29] MEDS: MULTIVITAMIN TAB PO SCH (08:09)
[2017-08-29] MEDS: ASPIRIN 325 MG ECTAB PO SCH ×2 (08:09→20:34)
[2017-08-29] MEDS: PANTOprazole SOD 40 MG TAB PO SCH ×2 (08:09→20:38)
[2017-08-29] MEDS: INSULIN HUMAN NPH SC SCH (08:15)
[2017-08-29 08:27] VITALS: PULSE 133; O2SAT 83
[2017-08-29] MEDS ORDERED: FUROSEMIDE INJ 20 MG in SYRINGE 0 ML IV ONE (13:20)
[2017-08-29 15:08] VITALS: BP 116/74; PULSE 80; TEMP 36.8; O2SAT 92
--- NOTE | 2017-08-29 15:51 | Progress Note ---
Internal Med Progress Note Date of Service: August 29, 2017. Provider Documentation: SUBJECTIVE: The patient was seen and examined Much Better today diarrhea is a little bit controlled Pain is better 08/28 Generally weak and lethargic No more diarrhea 08/29-S/P 1 unit PRBC Doing better today Diarrhea controlled OBJECTIVE: Vital Signs-as noted below Exam: General-No distress at rest Eyes-normal ENT-normal Neck-supple Lungs-clear to auscultate bilaterally Heart-Regular Abdomen-Benign Extremities- Neuro-Trace edema bilaterally Lab data as noted below. 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 Aguila. Acute Blood loss Anemia Complicated by C Diff colitis and passively IVF Generally weak Will give 2 units of PRBC Check CBC in AM Hb 8.7 this AM and feeling much better C Diff Colitis Started on Jerri Vancomycin Clinically improving Will need 14 days of treatment in total Diarrhea is controlled Left hip avascular necrosis s/p L TRINITY: -POD #3, performed by Dr. Aguila -Doing well post-operatively -Per ortho for pain control, wound care, anticoagulation and activities -Monitor H&H, continue incentive spirometry, PT/OT when appropriate -Hb dropped to 7.6 -will recheck in AM - and plan as above Steroid-induced DM II: -A1c 6.1 in July 2017 -Hold home oral agents -Receiving 5mg cortef daily -Glycemic consult placed by primary team -BSG check AC HS HTN: -Hypotensive with SBP in low 90s post-operatively -Asymptomatic -Hold parameters for beta kleber Depression: -Stable -Cont Zoloft Chronic respiratory failure 2/2 bronchiectasis: -At baseline -Cont supplemental O2 -Cont home nebs GERD: -Cont PPI Hypogammaglobulinemia: -Receives monthly infusions at [facility] -Medically stable Vital Signs: Date Time Temp Pulse Resp B/P (MAP) Pulse Ox O2 Delivery O2 Flow Rate FiO2 08/29/17 15:08 36.8 80 18 116/74 (88) 92 Nasal Cannula 2.0 08/29/17 08:27 133 83 08/29/17 08:05 87 113/72 (86) 08/29/17 07:50 Nasal Cannula 2.0 08/29/17 05:57 36.8 80 19 106/68 (81) 95 Nasal Cannula 2.0 08/28/17 23:29 37.1 69 18 114/73 (87) 97 Nasal Cannula 2.0 08/28/17 20:50 Nasal Cannula 08/28/17 20:38 90 127/74 (91) 08/28/17 16:50 36.9 76 18 113/72 99 2.0 08/28/17 15:49 36.5 82 20 133/79 96 2.0 Lab Results: Results Past 24 Hours Test 08/28/17 17:11 08/28/17 19:58 08/28/17 20:40 08/29/17 05:14 Range/Units Bedside Glucose 94 124 70-90 mg/dl Hemoglobin 9.2 8.7 12.0-16.0 g/dL Hematocrit 29.9 27.7 37-47 % White Blood Count 9.11 4.8-10.8 K/uL Red Blood Count 3.37 4.2-5.4 M/uL Mean Corpuscular Volume 82.2 80-100 fL Mean Corpuscular Hemoglobin 25.8 25-34 pg Mean Corpuscular Hemoglobin Concent 31.4 32-36 g/dl RDW Standard Deviation 49.3 36.4-46.3 fL RDW Coefficient of Variation 16.3 11.5-14.5 % Platelet Count 196 130-400 K/uL Mean Platelet Volume 9.0 7.4-10.4 fL Sodium Level 139 136-145 mmol/L Potassium Level 4.0 3.5-5.1 mmol/L Chloride Level 103 98-107 mmol/L Carbon Dioxide Level 33 21-32 mmol/L Anion Gap 3.0 3-11 mmol/L Blood Urea Nitrogen 9 7-18 mg/dl Creatinine 0.49 0.60-1.20 mg/dl Est Creatinine Clear Calc Drug Dose 121.2 ml/min Estimated GFR () 126.2 Estimated GFR (Non- 108.9 BUN/Creatinine Ratio 17.9 10-20 Random Glucose 87 70-99 mg/dl Calcium Level 7.8 8.5-10.1 mg/dl Test 08/29/17 06:05 08/29/17 11:42 Range/Units Bedside Glucose 96 128 70-90 mg/dl
[2017-08-29] MEDS ORDERED: VANC1SUS PO (18:03)
--- NOTE | 2017-08-29 19:03 | PROGRESS NOTE ---
DATE: 08/29/2017 CHIEF COMPLAINT: Status post left total hip arthroplasty postop day #3. PROGRESS: Valery was seen and examined at bedside today. Overall, she is improving. She feels much better today. She is able to get up and ambulate some with physical therapy. Her diarrhea has been improving as well. She has no complaints. PHYSICAL EXAMINATION: LEFT HIP: The Prevena VAC dressing is to suction. Her leg lengths are equal. She has very little pain in her hip. She has no complaints with that. LABORATORY DATA: Shows H and H today of 8.7 and 27.7. Her blood glucose is 106. Her vital signs were all stable on 2 L of nasal cannula and she does not have a bowel movement yet today. IMPRESSION: 1. Status post left total hip arthroplasty postop day #3. 2. Perioperative Clostridium difficile. PLAN: Will keep her on vancomycin every 6 hours orally for 14 days for C. diff. She is on [place] for pain control and aspirin for DVT prophylaxis. She is improving much today. As long as she is good tomorrow, we are going to discharge to her sister's house with inhouse physical therapy.
[2017-08-29] MEDS: SENNA 8.6 MG TAB PO SCH (20:36)
[2017-08-29] MEDS: FERROUS SULFATE 325 MG TAB PO SCH (20:38)
[2017-08-29 22:50] VITALS: BP 118/73; PULSE 85; TEMP 36.9; O2SAT 96
[2017-08-30] MEDS: RASPBERRY SYRUP 5 ML UDP PO SCH ×2 (01:55→08:17)
[2017-08-30] MEDS: VANCOMYCIN HCL 125 MG/2.5ML SOLN PO SCH ×2 (01:55→08:17)
[2017-08-30 08:00] VITALS: BP 115/74; PULSE 17; PULSE 90; TEMP 36.6; O2SAT 92
[2017-08-30] MEDS: INSULIN ASPART 100 UNITS/ML 3 ML PEN SC SCH ×2 (08:00→12:00)
[2017-08-30] MEDS: HYDROCODONE/ACETAMIN 5/325MG TAB PO PRN (08:17)
[2017-08-30] MEDS: MULTIVITAMIN TAB PO SCH (08:19)
[2017-08-30] MEDS: PANTOprazole SOD 40 MG TAB PO SCH (08:19)
[2017-08-30] MEDS: ASPIRIN 325 MG ECTAB PO SCH (08:19)
[2017-08-30] MEDS: SERTRALINE HCL 50 MG TAB PO SCH (08:19)
[2017-08-30] MEDS: FLUTICASONE PROPIONATE NA SPR 16 GM BTL NAE SCH (08:20)
[2017-08-30] MEDS: METOPROLOL TARTRATE 50 MG TAB PO SCH (08:20)
[2017-08-30] MEDS: DICLOFENAC SOD 1% GEL 100 GM TUBE EXT SCH ×2 (08:20→12:11)
[2017-08-30] MEDS: HYDROCORTISONE 10 MG TAB PO SCH (08:20)
[2017-08-30] MEDS: DOCUSATE SODIUM 100 MG CAP PO SCH (08:21)
[2017-08-30] MEDS: INSULIN HUMAN NPH SC SCH (08:48)
[2017-08-30 08:53] VITALS: PULSE 122; O2SAT 78
--- NOTE | 2017-08-30 08:58 | Orthopedic Progress Note ---
Orthopedic Progress Note Date of Service August 30, 2017. Subjective Additional Notes: POD #4 from Left anterior TRINITY. She has some hip pain with weighbearing/walking. No more diarrhea. Denies abdominal pain. She is having breakfast. No other complaints. Objective calves soft nontender, N/V intact, hip located, dressing C/D/I, A&O x3, toes mobile Date Time Temp Pulse Resp B/P (MAP) Pulse Ox O2 Delivery O2 Flow Rate FiO2 08/30/17 08:33 Nasal Cannula 2.0 92 08/30/17 07:30 Nasal Cannula 2.0 08/29/17 23:50 Nasal Cannula 2.0 18 22:50 36.9 85 17 118/73 (88) 96 Nasal Cannula 2.0 08/29/17 15:30 Nasal Cannula 2.0 08/29/17 15:08 36.8 80 18 116/74 (88) 92 Nasal Cannula 2.0 Assessment & Plan Assessment: POD #4 from Left anterior TRINITY C. Diff colitis Discharge Planning Discharge Planning: home (she's planning on d/c to her sisters today ) Pain Management: Schriever DVT Prophylaxis: TEDs, SCDs, ASA Therapy: Physical Therapy, Occupational Therapy Discharge Planning Notes: continue vanco for c. diff colitis
[2017-08-30 09:29] VITALS: BP 118/73; PULSE 85; TEMP 36.9; O2SAT 96
--- NOTE | 2017-08-30 14:00 | Progress Note ---
Internal Med Progress Note Date of Service: August 30, 2017. Provider Documentation: SUBJECTIVE: The patient was seen and examined Much Better today diarrhea is a little bit controlled Pain is better 08/28 Generally weak and lethargic No more diarrhea 08/29-S/P 1 unit PRBC Doing better today Diarrhea controlled 08/30 Feels a lot better Diarrhea is controlled No0 more weakness OBJECTIVE: Vital Signs-as noted below Exam: General-No distress at rest Eyes-normal ENT-normal Neck-supple Lungs-clear to auscultate bilaterally Heart-Regular Abdomen-Benign Extremities- Neuro-Trace edema bilaterally Lab data as noted below. 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 Aguila. Acute Blood loss Anemia Complicated by C Diff colitis and passively IVF Generally weak Will give 2 units of PRBC Check CBC in AM Hb 8.7 this AM and feeling much better No more weakness Ready to be discharged C Diff Colitis Started on Jerri Vancomycin Clinically improving Will need 14 days of treatment in total Diarrhea is controlled Left hip avascular necrosis s/p L TRINITY: -POD #4, performed by Dr. Aguila -Doing well post-operatively -Per ortho for pain control, wound care, anticoagulation and activities -Monitor H&H, continue incentive spirometry, PT/OT when appropriate -Hb dropped to 7.6 -will recheck in AM - and plan as above -Discharge today Steroid-induced DM II: -A1c 6.1 in July 2017 -Hold home oral agents -Receiving 5mg cortef daily -Glycemic consult placed by primary team -BSG check AC HS HTN: -Hypotensive with SBP in low 90s post-operatively -Asymptomatic -Hold parameters for beta kleber Depression: -Stable -Cont Zoloft Chronic respiratory failure 2/2 bronchiectasis: -At baseline -Cont supplemental O2 -Cont home nebs GERD: -Cont PPI Hypogammaglobulinemia: -Receives monthly infusions at [facility] -Medically stable to be discharged Vital Signs: Date Time Temp Pulse Resp B/P (MAP) Pulse Ox O2 Delivery O2 Flow Rate FiO2 08/30/17 09:29 36.9 85 17 96 Nasal Cannula 08/30/17 08:53 122 78 5/22/18 08:33 Nasal Cannula 2.0 92 08/30/17 08:00 36.6 90 17 115/74 (88) 92 Nasal Cannula 2.0 08/30/17 07:30 Nasal Cannula 2.0 08/29/17 23:50 Nasal Cannula 2.0 08/29/17 22:50 36.9 85 17 118/73 (88) 96 Nasal Cannula 2.0 08/29/17 15:30 Nasal Cannula 2.0 08/29/17 15:08 36.8 80 18 116/74 (88) 92 Nasal Cannula 2.0 Lab Results: Results Past 24 Hours Test 08/29/17 17:04 08/29/17 20:27 08/30/17 08:04 08/30/17 11:59 Range/Units Bedside Glucose 106 125 95 126 70-90 mg/dl
== END 2017-08-30 13:16 | disposition home or self-care (01) | DRG 470 ==
LOC: C.ACU 05:03 → C.3E 06:30 → ENRESERV 10:00
PROVIDERS: ADMIT Orthopaedic Surgery; ATTEND Orthopaedic Surgery
PROC: 0SRB04Z Replacement of Left Hip Joint with Ceramic on Polyethylene Synthetic Substitute, Open Approach (ICD-10-PCS; principal; 2017-08-26 07:00)
DX: M87.852 Other osteonecrosis, left femur (principal); D62 Acute posthemorrhagic anemia; A04.72 Enterocolitis due to Clostridium difficile, not specified as recurrent; J96.10 Chronic respiratory failure, unspecified whether with hypoxia or hypercapnia; D80.1 Nonfamilial hypogammaglobulinemia; E09.9 Drug or chemical induced diabetes mellitus without complications; T38.0X5A Adverse effect of glucocorticoids and synthetic analogues, initial encounter; J47.9 Bronchiectasis, uncomplicated; I11.9 Hypertensive heart disease without heart failure; I27.20 Pulmonary hypertension, unspecified; J45.909 Unspecified asthma, uncomplicated; K21.9 Gastro-esophageal reflux disease without esophagitis; F32.9 Major depressive disorder, single episode, unspecified; Z79.899 Other long term (current) drug therapy; Z79.891 Long term (current) use of opiate analgesic; Z79.4 Long term (current) use of insulin; Z79.52 Long term (current) use of systemic steroids; Z99.81 Dependence on supplemental oxygen; Z96.641 Presence of right artificial hip joint; Z87.74 Personal history of (corrected) congenital malformations of heart and circulatory system; Z88.8 Allergy status to other drugs, medicaments and biological substances; Z88.5 Allergy status to narcotic agent; Z83.3 Family history of diabetes mellitus; Z82.49 Family history of ischemic heart disease and other diseases of the circulatory system; Z82.5 Family history of asthma and other chronic lower respiratory diseases; Z84.1 Family history of disorders of kidney and ureter

== ENCOUNTER → 2017-10-31 | Outpatient (CLI) | payer OTHER ==
[~2017-10-31] MED LIST changes: -ACET-1256 PO; -ASCO250T5 PO; +ASPI81TA28 PO; +CPR/500 PO; -HYDR5TAB PO; -IMMUNOGLOBULIN INJ; +IVIG INJ; -MAGN1CAP2 PO; +MAGN400T6 PO; +MISCCAP80 PO; -MULTTAB58 PO; +PRD10 PO; +PRED20TA PO; +VANC5CAP PO; +VITACAP26 PO
--- NOTE | 2017-10-31 12:39 | DIAGNOSTIC IMAGING REPORT ---
CHEST 2 VIEWS ROUTINE HISTORY: 57 years-old Female chronic resp failure/ pre-op chronic respiratory failure. Preoperative exam. COMPARISON: Chest radiograph 10/23/2017, CTA chest 10/23/2017 TECHNIQUE: PA and lateral views of the chest FINDINGS: Cardiac silhouette is upper limits of normal in size. Right internal jugular [id number] catheter appears unchanged. Prior median sternotomy. Calcification of the aorta. Advanced bilateral bronchiectasis with bilateral reticular nodular opacities appear unchanged. No pneumothorax, pleural effusion or overt pulmonary edema. Lungs are hyperinflated. No new airspace opacities are identified. Right shoulder arthroplasty. IMPRESSION: 1. No acute process. 2. Redemonstration of advanced bronchiectasis with bilateral reticular nodular opacities The above report was generated using voice recognition software. It may contain grammatical, syntax or spelling errors. Electronically signed by: Lobo Yoo M.D. 10/31/2017 12:37 PM Dictated Date/Time: 10/31/2017 12:35 PM
[2017-10-31 12:44] LABS: BASO % 0.1 %; BASO ABS # 0.01 K/uL (0-0.2); HEMATOCRIT 36.3 % (37-47); IG# 0.07 K/uL (0.00-0.02); LYMPH % 6.8 %; LYMPH ABS # 1.31 K/uL (1.2-3.4); MEAN CELL VOLUME 82.5 fL (80-100); MEAN CORPUSCULAR HGB CONC 30.3 g/dl (32-36); MONO % 2.9 %; MONO ABS # 0.56 K/uL (0.11-0.59); NEUT % 88.8 %; NEUT ABS # 16.98 K/uL (1.4-6.5); PLATELET COUNT 270 K/uL (130-400); RED CELL DISTRIBUTION WIDTH CV 16.9 % (11.5-14.5); RED CELL DISTRIBUTION WIDTH SD 50.5 fL (36.4-46.3); WHITE BLOOD COUNT 19.13 K/uL (4.8-10.8)
[2017-10-31 13:18] LABS: HEMOGLOBIN A1C 5.9 % (4.5-5.6)
== END | disposition home or self-care (01) ==
LOC: C.RAD 11:22
DX: Z01.811 Encounter for preprocedural respiratory examination (principal); Z01.812 Encounter for preprocedural laboratory examination

== ENCOUNTER 2017-11-05 13:29 | Emergency (ER) | payer OTHER ==
[~2017-11-05] VITALS: Ht 160 cm; Wt 67.0 kg
[~2017-11-05 13:29] MED LIST changes: -CPR/500 PO; -PRD10 PO
[2017-11-05 13:35] VITALS: TEMP 37; Ht 160 cm; Wt 67.0 kg
[2017-11-05] MEDS ORDERED: ALBUT/IPRATROP 3MG/0.5MG NEB 3 ML VIAL INH STA (13:54)
[2017-11-05] MEDS ORDERED: METHYLPREDNISOLONE 125 MG VIAL IV STA (13:54)
--- NOTE | 2017-11-05 14:19 | DIAGNOSTIC IMAGING REPORT ---
CHEST ONE VIEW PORTABLE CLINICAL HISTORY: Shortness of breath COMPARISON STUDY: 10/31/2017 FINDINGS: There are postsurgical changes of midline sternotomy. There is a right-sided A-Port catheter present. There are extensive bilateral interstitial pulmonary opacities with areas of parenchymal nodularity. These remain similar to the preceding study. Underlying bronchiectasis is suspected.[ There are postsurgical changes of a right humeral hemiarthroplasty. There are suspected avascular necrosis of the left humeral head IMPRESSION: 1. Bronchiectasis with extensive bilateral reticulonodular opacities, similar to the preceding study. Electronically signed by: Joshua Sanders M.D. 11/05/2017 2:17 PM Dictated Date/Time: 11/05/2017 2:16 PM
[2017-11-05 14:23] LABS: BASO % 0.1 %; BASO ABS # 0.01 K/uL (0-0.2); EOS % 0.4 %; EOS ABS # 0.05 K/uL (0-0.5); HEMATOCRIT 32.7 % (37-47); HEMOGLOBIN 9.7 g/dL (12.0-16.0); IG# 0.03 K/uL (0.00-0.02); LYMPH % 5.1 %; LYMPH ABS # 0.72 K/uL (1.2-3.4); MEAN CELL VOLUME 83.8 fL (80-100); MEAN CORPUSCULAR HEMOGLOBIN 24.9 pg (25-34); MEAN CORPUSCULAR HGB CONC 29.7 g/dl (32-36); MEAN PLATELET VOLUME 9.4 fL (7.4-10.4); MONO % 2.1 %; NEUT % 92.1 %; NEUT ABS # 12.95 K/uL (1.4-6.5); PLATELET COUNT 217 K/uL (130-400); RED CELL DISTRIBUTION WIDTH SD 51.6 fL (36.4-46.3); WHITE BLOOD COUNT 14.06 K/uL (4.8-10.8)
[2017-11-05 14:29] LABS: PTT PATIENT 34.1 SECONDS (21.0-31.0)
[2017-11-05 14:34] LABS: BLOOD UREA NITROGEN 14 mg/dl (7-18); CALCIUM 8.7 mg/dl (8.5-10.1); CARBON DIOXIDE 32 mmol/L (21-32); CREATININE 0.81 mg/dl (0.60-1.20); GLUCOSE 306 mg/dl (70-99); POTASSIUM 4.5 mmol/L (3.5-5.1); SODIUM 132 mmol/L (136-145)
--- NOTE | 2017-11-05 14:39 | EMERGENCY ROOM VISIT NOTE ---
History Report prepared by Alvaro: Nina Gary Under the Supervision of: Dr. Rick Cadet M.D. First contact with patient: 13:42 Chief Complaint: CHEST PAIN Stated Complaint: CHEST TIGHTNESS, PAIN, UTI,LUNGS HURT History of Present Illness The patient is a 57 year old white female with a past medical history of bronchiectasis who presents to the ED with a cc of intermittent chest tightness beginning this morning. She notes the pain worsens with movement. The patient denies leg swelling, calf pains, recent travel, or a history of blood clots. She notes she wears 2-4L of oxygen at all times, and that she is currently on a steroid taper. The patient reports she sees Dr. Villalta's office for her lungs, and was last seen 3 days ago. She notes she started taking Cipro yesterday for a severe UTI. Source of History: patient Onset: this morning Position: chest Quality: other (tightness) Timing: intermittent Note: Denies: calf pain, leg swelling Review of Systems See HPI for pertinent positives and negatives. A total of ten systems were reviewed and were otherwise negative. 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 (20) Tachycardia Surgical Problems: (1) H/O atrial septal defect repair (2) H/O total shoulder replacement (3) H/O: hysterectomy (4) History of hysterectomy (5) History of myringotomy (6) History of right hip replacement (7) Hx of appendectomy (8) Hx of cholecystectomy (9) Hx of tympanostomy tubes (10) S/P bronchoscopy (11) S/P section (12) S/P sinus surgery (13) S/P tonsillectomy and adenoidectomy Family History Asthma SISTER Cancer SISTER FATHER MOTHER Diabetes mellitus Gallbladder disease Heart disease Hypertension FATHER Kidney disease Kidney stones Lung disease Social History Smoking Status: Never Smoker Alcohol Use: none Drug Use: none Marital Status: single Housing Status: lives with family Occupation Status: unemployed, other Current/Historical Medications Scheduled Alendronate Sodium (Alendronate Sodium), 70 MG PO WK Aspirin (Aspirin Ec), 81 MG PO QAM Calcium Carbonate-Vitamin D W/ (Caltrate 600 Plus), 1 TAB PO BID Ciprofloxacin (Ciprofloxacin HCl), 500 MG PO BID Cyanocobalamin (Vitamin B12), 1,000 MCG PO QAM Ferrous Sulfate (Ferrous Sulfate), 1 TAB PO HS Fluticasone Propionate (Nasal) (Flonase Allergy Relief), 2 SPRY ESPERANZA QAM Folic Acid (Folic Acid), 1 MG PO HS Home O2 Therapy (Oxygen), 2-4 LITERS NA DAILY Insulin Human NPH (Novolin N), 10 UNITS SQ QAM Magnesium Oxide (Mag-Ox), 400 MG PO BID Metoprolol Tartrate (Lopressor) (Lopressor), 50 MG PO BID Pantoprazole (Protonix), 40 MG PO QAM Prednisone (Prednisone), 15 MG PO DAILY Probiotic Product (Probiotic), 1 TAB PO QPM Sertraline (Zoloft), 50 MG PO QAM Vancomycin Hcl (Vancomycin), 125 MG PO BID Vitamins C & E (Vitamin C), 1 TAB PO QPM Scheduled PRN Albuterol Sulf (Albuterol Sulfate), 1 DOSE INH Q4H PRN for Shortness of Breath Ondansetron Hcl (Zofran), 4 MG PO UD PRN for Nausea Allergies Coded Allergies: Albuterol (Verified Adverse Reaction, Mild, CHEST PAIN, LEVALBUTEROL OK, ) PT STATES "IF TAKE TOO MUCH DEVELOPS CHEST PAIN". TOLERATE LEVALBUTEROL 04/201506/14/17 - Patient reports that she does take albuterol at home, just not too frequently. Oxycodone (Verified Adverse Reaction, Mild, CAUSES DEPRESSION, 11/05/17) depression Physical Exam Vital Signs Date Time Temp Pulse Resp B/P (MAP) Pulse Ox O2 Delivery O2 Flow Rate FiO2 11/05/17 19:15 83 20 119/64 95 Nasal Cannula 3.0 11/05/17 18:44 81 20 118/67 96 Nasal Cannula 3.0 11/05/17 18:07 93 11/05/17 16:47 92 20 102/60 96 Nasal Cannula 3.0 11/05/17 15:29 98 18 110/71 93 Nasal Cannula 3.0 11/05/17 14:59 98 26 93 Nasal Cannula 3.0 11/05/17 14:29 85 19 11/05/17 14:12 103 11/05/17 14:05 Nasal Cannula 3.0 11/05/17 14:03 Nasal Cannula 3.0 11/05/17 13:35 37.0 94 18 103/65 92 Nasal Cannula 1.5 Physical Exam GENERAL: Awake, alert, well-appearing, NAD. Wearing glasses, face mask in place , nasal cannula in place. HENT: Normocephalic, atraumatic. EYES: Normal conjunctiva. Sclera non-icteric. PERRL. No anisocoria. NECK: Supple. No nuchal rigidity. FROM. RESPIRATORY: Coarse breath sounds. CARDIAC: RRR, no MRG ABDOMEN: Soft, NTND, BS+ MSK: No chest wall TTP, no LE edema. No calf pain, negative homans sign. Port in R chest NEURO: GCS 15, CN 2-12 intact, moves all 4s on command SKIN: No rash or jaundice noted. Medical Decision & Procedures ER Provider Diagnostic Interpretation: Radiology results as stated below per my review and radiologist interpretation: CHEST ONE VIEW PORTABLE CLINICAL HISTORY: Shortness of breath COMPARISON STUDY: 10/31/2017 FINDINGS: There are postsurgical changes of midline sternotomy. There is a right-sided A-Port catheter present. There are extensive bilateral interstitial pulmonary opacities with areas of parenchymal nodularity. These remain similar to the preceding study. Underlying bronchiectasis is suspected.[ There are postsurgical changes of a right humeral hemiarthroplasty. There are suspected avascular necrosis of the left humeral head IMPRESSION: 1. Bronchiectasis with extensive bilateral reticulonodular opacities, similar to the preceding study. Electronically signed by: Joshua Sanders M.D. 11/05/2017 2:17 PM Dictated Date/Time: 11/05/2017 2:[address] ANGIOGRAM OF THE CHEST CLINICAL HISTORY: Atypical chest pain and shortness of breath. Bronchiectasis. COMPARISON STUDY: 10/23/2017 TECHNIQUE: Following the IV administration of 82 mL of Optiray-320, CT angiogram of the thorax was performed from the thoracic inlet to the lung bases utilizing the pulmonary embolus protocol. Images are reviewed in the axial, sagittal, and coronal planes. IV contrast was administered without complication. MIP imaging was performed. A dose lowering technique was utilized adhering to the principles of ALARA. CT DOSE: 291.48 mGy.cm FINDINGS: There are mildly enlarged mediastinal lymph nodes, unchanged the preceding study. An index right paratracheal lymph node measures 15 mm. There is no pathologic hilar or axillary lymphadenopathy. There was no evidence of thoracic aortic dilatation. There were no pulmonary artery filling defects to indicate acute pulmonary embolism. 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 There are multiple bilateral pulmonary nodules. These are waxing and waning with interval resolution ofr a 17 mm right lower lobe pulmonary nodule, and interval development of a 9 mm right lower lobe pulmonary nodule. The time course favors an infectious/inflammatory etiology. A right-sided A-Port catheter is visualized. IMPRESSION: 1. No evidence of acute pulmonary embolism 2. Stable mediastinal lymphadenopathy 3. Severe bronchiectasis 4. Waxing and waning bilateral pulmonary nodules favoring an infectious/inflammatory etiology. Electronically signed by: Joshua Sanders M.D. 11/05/2017 6:16 PM Dictated Date/Time: 11/05/2017 6:08 PM Laboratory Results 11/05/17 14:00 Red Blood Count 3.90, Mean Corpuscular Volume 83.8, Mean Corpuscular Hemoglobin 24.9, Mean Corpuscular Hemoglobin Concent 29.7, Mean Platelet Volume 9.4, Neutrophils (%) (Auto) 92.1, Lymphocytes (%) (Auto) 5.1, Monocytes (%) (Auto) 2.1, Eosinophils (%) (Auto) 0.4, Basophils (%) (Auto) 0.1, Neutrophils # (Auto) 12.95, Lymphocytes # (Auto) 0.72, Monocytes # (Auto) 0.30, Eosinophils # (Auto) 0.05, Basophils # (Auto) 0.01 11/05/17 14:00 Test 11/05/17 14:00 11/05/17 14:10 11/05/17 18:35 White Blood Count 14.06 K/uL (4.8-10.8) Red Blood Count 3.90 M/uL (4.2-5.4) Hemoglobin 9.7 g/dL (12.0-16.0) Hematocrit 32.7 % (37-47) Mean Corpuscular Volume 83.8 fL (80-100) Mean Corpuscular Hemoglobin 24.9 pg (25-34) Mean Corpuscular Hemoglobin Concent 29.7 g/dl (32-36) Platelet Count 217 K/uL (130-400) Mean Platelet Volume 9.4 fL (7.4-10.4) Neutrophils (%) (Auto) 92.1 % Lymphocytes (%) (Auto) 5.1 % Monocytes (%) (Auto) 2.1 % Eosinophils (%) (Auto) 0.4 % Basophils (%) (Auto) 0.1 % Neutrophils # (Auto) 12.95 K/uL (1.4-6.5) Lymphocytes # (Auto) 0.72 K/uL (1.2-3.4) Monocytes # (Auto) 0.30 K/uL (0.11-0.59) Eosinophils # (Auto) 0.05 K/uL (0-0.5) Basophils # (Auto) 0.01 K/uL (0-0.2) RDW Standard Deviation 51.6 fL (36.4-46.3) RDW Coefficient of Variation 17.0 % (11.5-14.5) Immature Granulocyte % (Auto) 0.2 % Immature Granulocyte # (Auto) 0.03 K/uL (0.00-0.02) Prothrombin Time 10.4 SECONDS (9.0-12.0) Prothromb Time International Ratio 1.0 (0.9-1.1) Activated Partial Thromboplast Time 34.1 SECONDS (21.0-31.0) Partial Thromboplastin Ratio 1.3 Anion Gap 5.0 mmol/L (3-11) Est Creatinine Clear Calc Drug Dose 71.3 ml/min Estimated GFR () 94.1 Estimated GFR (Non- 81.2 BUN/Creatinine Ratio 17.4 (10-20) Calcium Level 8.7 mg/dl (8.5-10.1) Pro-B-Type Natriuretic Peptide 246 pg/ml (0-900) Beta-Hydroxybutyric Acid 0.88 mg/dL (0.2-2.81) Venous Blood pH 7.36 (7.36-7.41) Venous Blood Partial Pressure CO2 64 mmHg (38.0-50.0) Venous Blood Partial Pressure O2 38 mmHg Venous Blood HCO3 35 mmol/L Venous Blood Oxygen Saturation 66.4 % Venous Blood Base Excess 7.8 mEq/L Troponin I < 0.015 ng/ml (0-0.045) Laboratory results reviewed by me Medications Administered Medications (Trade) Dose Ordered Sig/[facility] Route Start Time Stop Time Status Last Admin Dose Admin Albuterol/ Ipratropium (Duoneb) 9 ml NOW STAT INH 11/05/17 13:54 11/05/17 13:56 DC 11/05/17 13:54 9 ML Methylprednisolone Sodium Succinate (Solu-Medrol IV) 125 mg NOW STAT IV 11/05/17 13:54 11/05/17 13:56 DC 11/05/17 13:54 125 MG Magnesium Sulfate 100 ml @ 100 mls/hr NOW STAT IV 11/05/17 16:00 11/05/17 16:59 DC 11/05/17 16:10 100 MLS/HR Sodium Chloride 1,000 ml @ 999 mls/hr Q1H1M STAT IV 11/05/17 16:00 11/05/17 17:00 DC 11/05/17 16:10 999 MLS/HR Sodium Chloride 500 ml @ 999 mls/hr Q31M STAT IV 11/05/17 17:19 11/05/17 17:49 DC 11/05/17 17:19 999 MLS/HR Fentanyl Citrate (Fentanyl Inj) 50 mcg NOW ONCE IV 11/05/17 18:30 11/05/17 18:31 DC 11/05/17 18:43 50 MCG Heparin Sodium (Porcine) (Heparin 100 Unit/ml 5ml Flush) 5 ml STK-MED ONCE .ROUTE 11/05/17 19:41 11/05/17 19:42 DC 11/05/17 19:41 5 ML ECG Per My Interpretation Indication: chest pain Rate (beats per minute): 92 Findings: T-wave inversion (Inferior, lateral) Change: no significant change (10/23/17) ED Course 1350: The patient was evaluated in room B4. A complete history and physical exam was performed. 1512: I reevaluated and updated the patient. 1601: Upon reevaluation, the patient still feels tight in the chest. I will reassess after fluids and magnesium. 171: I reevaluated and updated the patient. 1825: Upon reevaluation, the patient is experiencing some improvement of her symptoms. 1900: I reevaluated the patient. Discussed results and discharge instructions: she verbalized understanding and agreement. The patient is ready for discharge. Medical Decision Nursing notes reviewed. Ancillary studies and prior records reviewed. The patient is a 57 year old white female with a past medical history of bronchiectasis who presents to the ED with a cc of intermittent chest tightness beginning this morning. Etiologies such as infections, reactive airway disease, pneumonia, pneumothorax , COPD, CHF, cardiac ischemia, pulmonary embolism, musculoskeletal, gastrointestinal, as well as others were entertained. Patient was seen and evaluated the bedside. Patient was complaining some mild chest tightness that she thinks is related to her breathing. Patient does have a known history of bronchiectasis and does see a financial assistance advisor. Patient was recently started on ciprofloxacin for urinary tract infection. The patient does have some coarse breath sounds throughout. Patient states that this is chronic. Patient did have blood work, EKG, troponin, chest x-ray. Patient is on her normal O2 which is anywhere from 2-4 L which she states is her baseline. Patient's EKG does show some T-wave inversions in the inferior. Upon review of a prior admission the patient's TWI is rate related. The patient has a negative troponin. I believe this is more related to rate elevation secondary to the albuterol treatments that she has received. Patient does have mild elevations in white blood cell count however is improved compared to prior. The patient is on chronic steroids. Patient's chest x-ray does show her chronic lung changes but no acute changes. I did reassess the patient the patient was not feeling much better so she was given additional fluids and mag. Upon reassessment the patient still was having some discomfort so CT the chest was ordered. We did discuss that we will treat her pain and see if that helped also. Patient CT the chest that showed bronchiectasis which is chronic. No evidence of PE. Second troponin was also sent which was negative. Given that the patient has a negative troponin [address] of the chest I believe she is suitable for outpatient follow-up and treatment at this time. The patient's pain is improved. Patient was given strict follow-up and return precautions. Patient was given strict follow-up, discharge, and return precautions. All questions were answered. Patient was deemed suitable for outpatient follow-up at this time. Patient agreed with the plan of care and was safely discharged home. Medication Reconcilliation Current Medication List: was personally reviewed by me Blood Pressure Screening Patient's blood pressure: Normal blood pressure Blood pressure disposition: Did not require urgent referral Impression Primary Impression: Chest pain Additional Impression: Bronchiectasis Scribe Attestation The scribe's documentation has been prepared under my direction and personally reviewed by me in its entirety. I confirm that the note above accurately reflects all work, treatment, procedures, and medical decision making performed by me. Departure Information Dispostion Home / Self-Care Referrals Ivonne Subramanian (PCP) Forms Call Back Authorization, HOME CARE DOCUMENTATION FORM, IMPORTANT VISIT INFORMATION Patient Instructions Chest Pain - [facility], [facility] Additional Instructions Please return to the emergency department if you have worsening or recurrent symptoms not amenable to at-home treatment. Please call for a follow-up appointment with her primary care physician. Please take your medications as prescribed. If you have other concerns and/or complaints please feel free to also call your primary care physician's office or return the ED for further evaluation, management, and treatment. You received narcotic or benzodiazepene medication while in the emergency room today. This is an addictive medication that may cause drowziness as well as constipation. Do not drive, operate heavy machinery, or drink alcohol under the influence of this medication. You may take 600 mg Ibuprofen every 6 hours as needed for pain/fever with food unless told by your physician not to take NSAIDs. You may take tylenol 650 mg every 6 hours as needed for pain/fever unless told by your physician to not take it or have liver problems. You may take motrin and tylenol separately or at the same time. Take your medications as prescribed. If taking an antibiotic consider taking a probiotic and/or eating yogurt, but at the least, please take with food as it can cause upset stomach. You have been examined and treated today on an emergency basis only. This is not a substitute for, or an effort to provide, complete comprehensive medical care. It is impossible to recognize and treat all injuries or illnesses in a single emergency department visit. It is therefore important that you follow up closely with [facility], your PCP, and/or your specialist(s). Call as soon as possible for an appointment. Thank you for your time and consideration. I look forward to speaking with you again soon. Please don't hesitate to call us if you have any questions. Problem Qualifiers Primary Impression: Chest pain Chest pain type: chest pain on breathing Qualified Codes: R07.1 - Chest pain on breathing Additional Impression: Bronchiectasis Bronchiectasis type: with acute exacerbation Qualified Codes: J47.1 - Bronchiectasis with (acute) exacerbation
[2017-11-05] MEDS ORDERED: PRD10 PO (14:58)
[2017-11-05] MEDS ORDERED: CPR/500 PO (14:58)
[2017-11-05] MEDS ORDERED: MAGNESIUM SULFATE 1GM / D5W 100 ML IV STA (16:00)
[2017-11-05] MEDS ORDERED: SODIUM CHLORIDE 0.9% 1000ML 1,000 ML IV STA (16:00)
[2017-11-05] MEDS ORDERED: SODIUM CHLORIDE 0.9% 500ML 500 ML IV STA (17:19)
[2017-11-05] MEDS ORDERED: OPTIRAY 320 IV PRN (17:30)
--- NOTE | 2017-11-05 18:17 | DIAGNOSTIC IMAGING REPORT ---
CT ANGIOGRAM OF THE CHEST CLINICAL HISTORY: Atypical chest pain and shortness of breath. Bronchiectasis. COMPARISON STUDY: 10/23/2017 TECHNIQUE: Following the IV administration of 82 mL of Optiray-320, CT angiogram of the thorax was performed from the thoracic inlet to the lung bases utilizing the pulmonary embolus protocol. Images are reviewed in the axial, sagittal, and coronal planes. IV contrast was administered without complication. MIP imaging was performed. A dose lowering technique was utilized adhering to the principles of ALARA. CT DOSE: 291.48 mGy.cm FINDINGS: There are mildly enlarged mediastinal lymph nodes, unchanged the preceding study. An index right paratracheal lymph node measures 15 mm. There is no pathologic hilar or axillary lymphadenopathy. There was no evidence of thoracic aortic dilatation. There were no pulmonary artery filling defects to indicate acute pulmonary embolism. 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 There are multiple bilateral pulmonary nodules. These are waxing and waning with interval resolution ofr a 17 mm right lower lobe pulmonary nodule, and interval development of a 9 mm right lower lobe pulmonary nodule. The time course favors an infectious/inflammatory etiology. A right-sided A-Port catheter is visualized. IMPRESSION: 1. No evidence of acute pulmonary embolism 2. Stable mediastinal lymphadenopathy 3. Severe bronchiectasis 4. Waxing and waning bilateral pulmonary nodules favoring an infectious/inflammatory etiology. Electronically signed by: Joshua Sanders M.D. 11/05/2017 6:16 PM Dictated Date/Time: 11/05/2017 6:08 PM
[2017-11-05] MEDS ORDERED: FENTANYL CITRATE INJ 50 MCG/1 ML 2 ML VIAL IV ONE (18:30)
[2017-11-05 19:15] VITALS: BP 119/64; PULSE 83; O2SAT 95
== END 2017-11-05 19:44 | disposition home or self-care (01) ==
LOC: C.EDB 13:31
DX: J47.1 Bronchiectasis with (acute) exacerbation (principal); Z86.718 Personal history of other venous thrombosis and embolism; Z99.81 Dependence on supplemental oxygen; N39.0 Urinary tract infection, site not specified; F41.9 Anxiety disorder, unspecified; J45.909 Unspecified asthma, uncomplicated; F32.9 Major depressive disorder, single episode, unspecified; E11.9 Type 2 diabetes mellitus without complications; K21.9 Gastro-esophageal reflux disease without esophagitis; E78.5 Hyperlipidemia, unspecified; D80.1 Nonfamilial hypogammaglobulinemia; I27.20 Pulmonary hypertension, unspecified; G47.33 Obstructive sleep apnea (adult) (pediatric); Z96.619 Presence of unspecified artificial shoulder joint; Z90.710 Acquired absence of both cervix and uterus; Z96.649 Presence of unspecified artificial hip joint; Z90.49 Acquired absence of other specified parts of digestive tract; Z82.5 Family history of asthma and other chronic lower respiratory diseases; Z80.9 Family history of malignant neoplasm, unspecified; Z83.3 Family history of diabetes mellitus; Z83.79 Family history of other diseases of the digestive system; Z82.49 Family history of ischemic heart disease and other diseases of the circulatory system; Z84.1 Family history of disorders of kidney and ureter; Z83.6 Family history of other diseases of the respiratory system; Z79.899 Other long term (current) drug therapy; Z79.82 Long term (current) use of aspirin; Z79.4 Long term (current) use of insulin; Z88.5 Allergy status to narcotic agent; Z88.8 Allergy status to other drugs, medicaments and biological substances

== ENCOUNTER → 2017-11-08 | Day surgery (SDC) | payer OTHER ==
--- NOTE | 2017-10-13 07:13 | History and Physical ---
History & Physical Date of Service Oct 13, 2017. History & Physical 57-year-old female with recurrent bronchiectasis and refractory infections with notable mucus obstruction of her airways here for bronchoscopic evaluation of her chronic bronchiectasis. PmHx: Chronic sinusitis, recurrent C-difficile, chronic bronchiectasis, chronic oxygen dependence, PmHx: 1. Multi-drug resistant Acinetobacter bereziniae , Acinetobacter guillouiae, stenotrophomonas (MDR) , MAURICIO 2. Anxiety 3. Severe COPD (FEV1: 44%) 4. Bilateral tympanic membrane perforation (H72.93) 5. Bronchiectasis (J47.9) 6. Chronic respiratory failure (J96.10) 7. Chronic sinusitis (J32.9) 8. Conductive hearing loss (H90.2) 9. Hypoxemia/Dependence on supplemental oxygen (Z99.81) 10. Depression (F32.9) 11. Diabetes mellitus, type 2 (E11.9) 12. Dizziness (R42) 13. Dysfunction of both eustachian tubes (H69.83) 14. 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 Hypogammaglobulinemia (D80.1) 16. Mixed conductive and sensorineural hearing loss of both ears 17. Obesity (BMI 30-39.9) 18. Obstructive sleep apnea (G47.33) 19. Pleurisy 20. Port-a-cath in place (with secondary bloodstream infection) 21. Secondary adrenal insufficiency (E27.49) 22. Tachycardia 23. Temporomandibular joint pain 24. Dyslipidemia 25. Corticosteroid use 26. Pulmonary nodule 27. Mediastinal lymph node enlargement 28. Oral candidiasis 29. Recurrent C-diff Surgical History History of Adenoidectomy History of Section History of cholecystectomy History of Destruction Of Flat Warts By Laser History of Ear Pressure Equalization Tube, Insertion, Bilaterally History of Hip Replacement History of Hysterectomy History of Repair Of Congenital Atrial Septal Defect History of Shoulder Arthroplasty Total Shoulder Replacement History of Sinus Surgery History of Tonsillectomy Family History Family history of Cervical Cancer Family history of Ovarian Cancer Family history of Aneurysm Of Abdominal Aorta Family history of cardiac disorder (Z82.49) Family history of deafness or hearing loss (Z82.2) Family history of hypertension (Z82.49) Family history of Non-Hodgkin's Lymphoma Family history of Pulmonary Embolism Social History Denied: History of Alcohol Use (History) Disabled Denied: History of Drug use Never smoker One child Secondhand smoke exposure Denied: History of Smokeless tobacco use Current Meds 1. Ipratropium [place] 0.02 % Inhalation Solution; 1 unit dose in nebulizer mixed with 1/2 dose of albuterol inhaled every 4-hours as needed for shortness of breath 2. Levalbuterol HCl - 1.25 MG/3ML Inhalation Nebulization Solution; Inhale 1 unit does mixed with ipratropium every 4-hours as needed for shortness of breath or wheeze 3. Albuterol Sulfate (2.5 MG/3ML) 0.083% Inhalation Nebulization Solution; USE 1/2 UNIT DOSE IN NEBULIZER MIXED WITH IPRATROPIUM EVERY 4 HOURS NEEDED FOR DYSPNEA AND WHEEZE 4. Amoxicillin-Pot Clavulanate 875-125 MG Oral Tablet; TAKE 1 TABLET EVERY 12 HOURS DAILY 5. PredniSONE 10 MG Oral Tablet; 3 pills by mouth BID for 3days, then 2 pills BID for 3days, then 1pill BID for 3 days, then 1pill daily for 3 days BD Insulin Syringe Ultrafine 31G X 15/64" 0.5 ML MISC; use 2 daily; 6. NovoLIN N 100 UNIT/ML Subcutaneous Suspension; Inject 10 units in the morning and increase to up to 20 units daily 7. Aspirin EC 81 MG Oral Tablet Delayed Release; TAKE 1 TABLET DAILY; 8. Hydrocortisone 5 MG Oral Tablet; Take 2 tabs in the AM and 1/2 tab 8 hours later. Double dose if sick, stressed, or undergoing surgery. Titrate down as directed; 9. Hydrocortisone 5 MG Oral Tablet; Take 3 tabs in the AM and 1 tab 8 hours later. Double dose if sick, stressed, or undergoing surgery; 10. Calcium 600+D 600-400 MG-UNIT Oral Tablet; Take 1 tablet twice daily; 11. Flonase 50 MCG/ACT SUSP; USE 2 SPRAYS IN EACH NOSTRIL ONCE DAILY; 12. Folic Acid 1 MG Oral Tablet; TAKE 1 TABLET DAILY; 13. Fosamax 70 MG Oral Tablet; TAKE 1 TABLET ONCE WEEKLY; 14. Iron 325 (65 Fe) MG Oral Tablet; TAKE 1 TABLET DAILY DIRECTED; 15. Lopressor 50 MG Oral Tablet; TAKE 1 TABLET TWICE DAILY; 16. Magnesium Oxide 400 MG Oral Tablet; TAKE 1 TABLET TWICE DAILY; 17. Mucinex D Max Strength 120-1200 MG Oral Tablet Extended Release 12 Hour; TAKE 1 TABLET EVERY 12 HOURS NEEDED FOR CONGESTION; 18. Multivital TABS; TAKE 1 TABLET DAILY 19. Probiotic Oral Capsule; USE DIRECTED; 20. Protonix 40 MG Oral Packet; TAKE 1 TABLET EVERY DAY; 21. Vitamin B-12 1000 MCG Oral Tablet; TAKE 1 TABLET DAILY DIRECTED; 22. Vitron-C 65-125 MG Oral Tablet; Take 1 tablet daily; Allergies Albuterol AERS Albuterol Sulfate NEBU Immunizations Influenza --- Series1: 15-Feb-2014; Series2: 14-Mar-2015 Vital Signs Height: 5 ft 4 in Weight: 148 lb 1 oz BMI Calculated: 25.41 BSA Calculated: 1.72 Blood Pressure: 124 / 76, LUE, Sitting Respiration: 12 O2 Saturation: 95, Nasal Cannula FiO2: 4L/min, Nasal Cannula Temperature: 98 F Heart Rate: 91 Physical Exam Constitutional General appearance: No acute distress, well appearing and well nourished. Eyes Conjunctiva and lids: No swelling, erythema or discharge. Pupils and irises: Equal, round and reactive to light. Ears, Nose, Mouth, and Throat External inspection of ears and nose: Normal. Oropharynx: Normal with no erythema, edema, exudate or lesions. Pulmonary Respiratory effort: No increased work of breathing or signs of respiratory distress. Auscultation of lungs: Abnormal. The patient has decreased breath sounds bilaterally. She is not as congested. She has coarse breath sounds bilaterally. She has some mild expiratory wheeze bilaterally. This is improved from her previous visit.. There no rales or rhonchi noted. Cardiovascular Palpation of heart: Normal PMI, no thrills. Auscultation of heart: Normal rate and rhythm, normal S1 and S2, without murmurs. Examination of extremities for edema and/or varicosities: Normal. Abdomen Abdomen: Non-tender, no masses. Liver and spleen: No hepatomegaly or splenomegaly. Lymphatic Palpation of lymph nodes in neck: No lymphadenopathy. Musculoskeletal Digits and nails: Normal without clubbing or cyanosis. Skin Skin and subcutaneous tissue: Normal without rashes or lesions. Neurologic Cranial nerves: Cranial nerves 2-12 intact. Reflexes: 2+ and symmetric. Sensation: No sensory loss. Psychiatric Orientation to person, place, and time: Normal. Mood and affect: Normal.
[2017-10-27 13:37] VITALS: BMI 25.0
--- NOTE | 2017-10-28 16:22 | PAT Medication Instructions ---
Service Date Oct 28, 2017. Current Home Medication List Albuterol Sulf (Albuterol Sulfate), 1 DOSE INH Q4H PRN for Shortness of Breath Alendronate Sodium (Alendronate Sodium), 70 MG PO WK Aspirin (Aspirin Ec), 81 MG PO QAM Calcium Carbonate-Vitamin D W/ (Caltrate 600 Plus), 1 TAB PO BID Cyanocobalamin (Vitamin B12), 1,000 MCG PO QAM Ferrous Sulfate (Ferrous Sulfate), 1 TAB PO HS Fluticasone Propionate (Nasal) (Flonase Allergy Relief), 2 SPRY ESPERANZA QAM Folic Acid (Folic Acid), 1 MG PO HS Home O2 Therapy (Oxygen), 2-4 LITERS NA DAILY Insulin Human NPH (Novolin N), 10 UNITS SQ QAM Magnesium Oxide (Mag-Ox), 400 MG PO BID Metoprolol Tartrate (Lopressor) (Lopressor), 50 MG PO BID Ondansetron Hcl (Zofran), 4 MG PO UD PRN for Nausea Pantoprazole (Protonix), 40 MG PO QAM Prednisone (Prednisone), 20 MG PO UD Probiotic Product (Probiotic), 1 TAB PO QPM Sertraline (Zoloft), 50 MG PO QAM Vancomycin Hcl (Vancomycin), 125 MG PO BID Vitamins C & E (Vitamin C), 1 TAB PO QPM [Ivig], 1 DOSE INJ QMONTHLY Medication Instructions For Your Scheduled Surgery -Continue as directed: Alendronate Sodium (Alendronate Sodium), 70 MG PO WK Home O2 Therapy (Oxygen), 2-4 LITERS NA DAILY [Ivig], 1 DOSE INJ QMONTHLY -Continue taper until completed, then resume Hydrocortisone per your prom burn off operator's instructions: Prednisone (Prednisone), 20 MG PO UD -Check with surgeon and prescriber: Aspirin (Aspirin Ec), 81 MG PO QAM - Hold the following medications the morning of surgery: Calcium Carbonate-Vitamin D W/ (Caltrate 600 Plus), 1 TAB PO BID Cyanocobalamin (Vitamin B12), 1,000 MCG PO QAM Insulin Human NPH (Novolin N), 10 UNITS SQ QAM Magnesium Oxide (Mag-Ox), 400 MG PO BID - Take the following medications the morning of surgery with a sip of water: Albuterol Sulf (Albuterol Sulfate), 1 DOSE INH Q4H PRN for Shortness of Breath ( if needed, and please bring with you to the hospital) Fluticasone Propionate (Nasal) (Flonase Allergy Relief), 2 SPRY ESPERANZA QAM Metoprolol Tartrate (Lopressor) (Lopressor), 50 MG PO BID Ondansetron Hcl (Zofran), 4 MG PO UD PRN for Nausea (if needed) Pantoprazole (Protonix), 40 MG PO QAM Sertraline (Zoloft), 50 MG PO QAM Vancomycin Hcl (Vancomycin), 125 MG PO BID - Take the following medications as scheduled the night before surgery: Albuterol Sulf (Albuterol Sulfate), 1 DOSE INH Q4H PRN for Shortness of Breath ( if needed) Calcium Carbonate-Vitamin D W/ (Caltrate 600 Plus), 1 TAB PO BID Ferrous Sulfate (Ferrous Sulfate), 1 TAB PO HS Folic Acid (Folic Acid), 1 MG PO HS Magnesium Oxide (Mag-Ox), 400 MG PO BID Metoprolol Tartrate (Lopressor) (Lopressor), 50 MG PO BID Ondansetron Hcl (Zofran), 4 MG PO UD PRN for Nausea (if needed) Probiotic Product (Probiotic), 1 TAB PO QPM Vancomycin Hcl (Vancomycin), 125 MG PO BID Vitamins C (Vitamin C), 1 TAB PO QPM If you have any questions please call us at [phone] or [phone] or [phone]
[2017-10-31 11:29] VITALS: Ht 160 cm; Wt 65.3 kg
[~2017-11-08] VITALS: Ht 160 cm; Wt 65.3 kg
[~2017-11-08] MED LIST changes: +ATROPINE SULFATE 0.1 MG/ML 5ML SYR IV PRN; +CEFAZOLIN 2000MG IV PUSH 15 ML IV SCH; +CPR/500 PO; +EpHEDrine SULFATE INJ 50 MG/ML AMP IV PRN; +EpINEphrine HCL INJ 1 MG/ML 1ML SYRINGE ONE; +FENTANYL CITRATE INJ 50 MCG/1 ML 2 ML VIAL IV PRN; +FENTANYL CITRATE INJ 50 MCG/1 ML 2 ML VIAL ONE; +GLYCOPYRROLATE INJ 0.2 MG/ML VIAL ONE; +HYDROCODONE/ACETAMIN 5/325MG TAB PO PRN; -IVIG INJ; +LACTATED RINGER'S 1000ML 1,000 ML IV SCH; +LARYING-O-JET KIT (LTA) ONE; +LIDOCAINE 2% 20 MG/ML 5ML SYR ONE; +LIDOCAINE 4% INH SOLN 4 ML BTL ONE; +LIDOCAINE/EPINEPHRINE 1% 20 ML VIAL ONE; +MIDAZOLAM HCL 1 MG/ML 2ML VIAL ONE; +NEOSTIGMINE METHYLSULFATE 5 MG/5 ML SYR ONE; +ONDANSETRON INJ 2 MG/ML 2 ML VIAL IV PRN; +ONDANSETRON INJ 2 MG/ML 2 ML VIAL ONE; +OXYMETAZOLINE HCL 0.05% NA SPR 15 ML BTL NAE SCH; +OXYMETAZOLINE HCL 0.05% NA SPR 15 ML BTL PRN; +PHENYLEPHRINE 100MCG/ML 5ML SYR ONE; +PRD10 PO; -PRED20TA PO; +PROPOFOL IV EMULSION 10 MG/ML 20 ML VIAL ONE; +ROCURONIUM BROMIDE 10 MG/ML 5 ML VIAL ONE; +TRIAMCINOLONE ACET 40 MG/ML VIAL ONE; +[UNRECOGNIZED DRUG - REMARK] SCH
[2017-11-08 05:50] VITALS: BP 120/67; PULSE 79; TEMP 36.8; O2SAT 98
--- NOTE | 2017-11-08 06:48 | History and Physical ---
History & Physical Date Nov 08, 2017. Chief Complaint CHRONIC SINUSITIS AND BILATERAL INFERIOR TURBINATE HYPERTROPHY S/P B FESS IN THE PAST WITH PERSISTENT SYMPTOMS DESPITE MAXIMAL MEDICAL RX History of Present Illness The patient is a 57 year old female with CHRONIC SINUSITIS AND BILATERAL INFERIOR TURBINATE HYPERTROPHY S/P B FESS IN THE PAST WITH PERSISTENT SYMPTOMS DESPITE MAXIMAL MEDICAL RX. 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 (20) Tachycardia Surgical Problems: (1) H/O atrial septal defect repair (2) H/O total shoulder replacement (3) H/O: hysterectomy (4) History of hysterectomy (5) History of myringotomy (6) History of right hip replacement (7) Hx of appendectomy (8) Hx of cholecystectomy (9) Hx of tympanostomy tubes (10) S/P bronchoscopy (11) S/P section (12) S/P sinus surgery (13) S/P tonsillectomy and adenoidectomy Additional History Hepatic Disease: No Endocrine Disorder: No Kidney Disease: No Hypertension: No Heart Disease: No Bleeding Tendencies: No Infectious Diseases: No Allergies Coded Allergies: Albuterol (Verified Adverse Reaction, Mild, CHEST PAIN, LEVALBUTEROL OK, ) PT STATES "IF TAKE TOO MUCH DEVELOPS CHEST PAIN". TOLERATE LEVALBUTEROL 04/201506/14/17 - Patient reports that she does take albuterol at home, just not too frequently. Oxycodone (Verified Adverse Reaction, Mild, CAUSES DEPRESSION, 11/08/17) depression Home Medications Scheduled Alendronate Sodium (Alendronate Sodium), 70 MG PO WK Aspirin (Aspirin Ec), 81 MG PO QAM Calcium Carbonate-Vitamin D W/ (Caltrate 600 Plus), 1 TAB PO BID Ciprofloxacin (Ciprofloxacin HCl), 500 MG PO BID Cyanocobalamin (Vitamin B12), 1,000 MCG PO QAM Ferrous Sulfate (Ferrous Sulfate), 1 TAB PO HS Fluticasone Propionate (Nasal) (Flonase Allergy Relief), 2 SPRY ESPERANZA QAM Folic Acid (Folic Acid), 1 MG PO HS Home O2 Therapy (Oxygen), 2-4 LITERS NA DAILY Insulin Human NPH (Novolin N), 10 UNITS SQ QAM Magnesium Oxide (Mag-Ox), 400 MG PO BID Metoprolol Tartrate (Lopressor) (Lopressor), 50 MG PO BID Pantoprazole (Protonix), 40 MG PO QAM Prednisone (Prednisone), 15 MG PO DAILY Probiotic Product (Probiotic), 1 TAB PO QPM Sertraline (Zoloft), 50 MG PO QAM Vancomycin Hcl (Vancomycin), 125 MG PO BID Vitamins C & E (Vitamin C), 1 TAB PO QPM Scheduled PRN Albuterol Sulf (Albuterol Sulfate), 1 DOSE INH Q4H PRN for Shortness of Breath Ondansetron Hcl (Zofran), 4 MG PO UD PRN for Nausea Physical Examination Skin: warm/dry, no rash Eyes: normal inspection, EOMI, sclerae normal ENT: + pertinent finding (PURULENT SECRETIONS WITHIN MIDDLE MEATI; MODERATE B ITH) Head: normocephalic, atraumatic Neck: supple, no adenopathy, trachea midline Respiratory/Chest: + pertinent finding (TACHYPNEIC; AUDIBLE WHEEZING) Cardiovascular: regular rate, rhythm, no edema, no murmur Neurologic/Psych: no motor/sensory deficits, alert, normal reflexes, oriented x 3 Diagnosis CHRONIC SINUSITIS AND BILATERAL INFERIOR TURBINATE HYPERTROPHY S/P B FESS IN THE PAST WITH PERSISTENT SYMPTOMS DESPITE MAXIMAL MEDICAL RX Plan of Treatment REVISION IMAGE-GUIDED B FESS AND INFERIOR TURBINATE REDUCTION
[2017-11-08 07:56] VITALS: PULSE 80; O2SAT 98
--- NOTE | 2017-11-08 08:04 | [facility] Operative Report ---
Operative Report Operative Date Nov 08, 2017. Pre-Operative Diagnosis chronic sinusitis and bilateral inferior turbinate hypertrophy status post B functional endoscopic sinus surgery in the past with persistent symptoms despite maximal medical prescription Post-Operative Diagnosis same as preop Procedure(s) Performed Revision Image-Guided Endoscopic Bilateral Sinus Surgery (Bilateral Frontal Sinusotomy & Complete Ethmoidectomies) Bilateral Inferior Turbinate Reduction Surgeon Dr. Ronald Welch Quebracho Tanner Surgeon(s) None Estimated Blood Loss 5ML Findings 1. SYNECHIAE BETWEEN MIDDLE TURBINATES AND LATERAL NASAL PORTILLO 2. POLYPOID MUCOSAL THICKENING OF THE BILATERAL FRONTAL AND ETHMOID SINUSES 3. MODERATE BILATERAL INFERIOR TURBINATE HYPERTROPHY Specimens none per surgeon Anesthesia Type General I attest to the content of the Intraoperative Record and any orders documented therein. Any exceptions are noted below.
--- NOTE | 2017-11-08 08:06 | Discharge Instructions ---
Discharge Instructions Date of Service Nov 08, 2017. Admission Reason for Admission: Chronic Sinusitis Discharge Discharge Diagnosis / Problem: SAME Discharge Goals Goal(s): Therapeutic intervention Activity Recommendations Activity Limitations: as noted below LIGHT ACTIVITY AND NO NOSE BLOWING FOR 2 WEEKS . Current Hospital Diet Patient's current hospital diet: Discharge Diet Recommended Diet: Regular Diet Procedures Procedures Performed: Revision Image-Guided Endoscopic Bilateral Sinus Surgery (Bilateral Frontal Sinusotomy & Complete Ethmoidectomies) Bilateral Inferior Turbinate Reduction Pending Studies Studies pending at discharge: no Laboratory Results Hemoglobin A1c Test 11/02/17 14:30 Range/Units Estimated Average Glucose 126 mg/dl Hemoglobin A1c 6.0 H 4.5-5.6 % Medical Emergencies . Who to Call and When: Medical Emergencies: If at any time you feel your situation is an emergency, please call 911 immediately. . Non-Emergent Contact Non-Emergency issues call your: Surgeon . . "Provider Documentation" section prepared by Ronald Welch. .
[2017-11-08 09:00] VITALS: BP 117/71; PULSE 98; TEMP 36.7; O2SAT 92
[2017-11-08 09:30] VITALS: BP 112/70; PULSE 106; TEMP 36.7; O2SAT 92
--- NOTE | 2017-11-08 09:32 | Anesthesiology Progress Note ---
Anesthesia Post Op Note Date & Time Nov 08, 2017 at 09:32 Vital Signs Pain Intensity: 0 Vital Signs Past 12 Hours Date Time Temp Pulse Resp B/P (MAP) Pulse Ox O2 Delivery O2 Flow Rate FiO2 11/08/17 09:00 36.7 98 18 117/71 92 Nasal Cannula 3 Oxymask 11/08/17 08:55 95 18 126/70 96 Oxymask 4 11/08/17 08:45 36.9 96 22 122/74 96 Oxymask 4 11/08/17 08:35 85 15 120/67 100 Oxymask 4 11/08/17 08:25 81 16 113/80 100 Oxymask 10 11/08/17 08:16 36.0 83 20 117/56 100 Oxymask 10 11/08/17 07:56 80 20 98 Nasal Cannula 3.0 11/08/17 05:50 36.8 79 20 120/67 (84) 98 Nasal Cannula 3 Notes Mental Status: alert / awake / arousable, participated in evaluation Pt Amnestic to Procedure: Yes Nausea / Vomiting: adequately controlled Pain: adequately controlled Airway Patency, RR, SpO2: stable & adequate BP & HR: stable & adequate Hydration State: stable & adequate Anesthetic Complications: no major complications apparent
--- NOTE | 2017-11-08 09:53 | OPERATIVE REPORT ---
DATE OF OPERATION: 11/08/2017 PREOPERATIVE DIAGNOSES: 1. Chronic rhinosinusitis, status post bilateral endoscopic sinus surgery in the past with persistent symptoms despite maximum medical therapy. 2. Bilateral inferior turbinate hypertrophy. POSTOPERATIVE DIAGNOSES: 1. Chronic rhinosinusitis, status post bilateral endoscopic sinus surgery in the past with persistent symptoms despite maximum medical therapy. 2. Bilateral inferior turbinate hypertrophy. PROCEDURES: Revision image-guided endoscopic sinus surgery consisting of: 1. Bilateral balloon sinuplasty assisted frontal sinusotomies. 2. Bilateral complete ethmoidectomies. 3. Bilateral inferior turbinate outfracture and turbinoplasty. SURGEON: Ronald Welch MD ANESTHESIA: General endotracheal. ESTIMATED BLOOD LOSS: 5 mL. FINDINGS: 1. Synechiae between the bilateral middle turbinates and lateral nasal cornelius. 2. Moderate bilateral inferior turbinate hypertrophy. 3. Polypoid mucosal thickening involving the bilateral frontal and ethmoid sinuses without any purulence. SPECIMENS: None. COMPLICATIONS: None. INDICATIONS FOR THE PROCEDURE: The patient is a pleasant 57-year-old female with a history of chronic rhinosinusitis, status post endoscopic sinus surgery in the past by another physician. She also has a history of bronchiectasis and is oxygen dependent. She was referred by pulmonary medicine due to having recurrent acute and chronic sinusitis, possibly contributing to her purulent pulmonary secretions. After maximal medical therapy, a fusion CT scan of the sinuses revealed mucosal thickening involving the bilateral frontal and ethmoid sinuses with frontal ethmoidal recess blockage. In addition, she has bilateral inferior turbinate hypertrophy. She presents for the above-mentioned procedures on an outpatient elective basis. DETAILS OF PROCEDURE: After informed consent had been obtained from the patient, the patient was wheeled to the operating room and placed on the operating room table in the supine position. Monitors were placed. After induction of general endotracheal anesthesia, the patient was prepped in the usual fashion for image-guided sinus surgery. The [employer] fusion headset was placed over the forehead and was registered, calibrated, and verified and used throughout the case. Lidocaine and epinephrine pledgets were then placed into the bilateral middle meati. The left-sided pledget was removed. Lidocaine 1% with 1:100,000 epinephrine was used to inject the left middle turbinate and lateral nasal wall as well as the synechiae between the middle turbinate and lateral nasal wall. Lidocaine and epinephrine pledget was then placed in the left middle meatus. The right side was then addressed in a similar fashion. The left-sided pledget was removed. The synechia was lysed using a freer elevator and powered instrumentation. Polypoid mucosal thickening was noted in the anterior ethmoid air cells, especially in the agger nasi region. This polypoid mucosal thickening was removed using powered instrumentation. A revision complete ethmoidectomy was performed using powered instrumentation. Using a frontal sinus suction and image guidance, the left frontal sinus was cannulated. The suction with withdrawn and a #6 frontal sinus balloon was inserted into the left frontal recess and dilated to 12 atmospheres of pressure in 3 different locations to perform balloon sinuplasty. The balloon was then removed. Powered instrumentation was used to remove polypoid tissue that was blocking the left frontal ethmoidal recess. The right side was then addressed in a similar fashion with similar intraoperative findings. A Seymour elevator was then used to infracture and subsequently outfracture the inferior turbinates bilaterally. These were injected with 1% lidocaine with 1:100,000 epinephrine. A 2.0 mm turbinate blade using powered instrumentation was then used to perform bilateral inferior turbinoplasties in a submucosal fashion. The sinonasal cavities and nasopharynx were then suctioned. Stammberger nasal dressing mixed with Kenalog 40 mg/mL was then placed into the ethmoid sinuses and middle meati bilaterally. An orogastric tube was placed and stomach suctioned free of air and stomach contents. Also, the patient's endotracheal tube was suctioned with nasotracheal suction multiple times and approximately 10 mL of purulent secretions were suctioned from the patient's bronchopulmonary tree. This marked the end of the case. The patient tolerated the procedure well and there were no apparent complications. The patient was extubated and transferred to recovery room in stable condition. I attest to the content of the Intraoperative Record and any orders documented therein. Any exception s are noted below.
== END | disposition home or self-care (01) ==
LOC: C.ACU 05:06
DX: J32.9 Chronic sinusitis, unspecified (principal); J34.3 Hypertrophy of nasal turbinates; Z98.890 Other specified postprocedural states; J45.909 Unspecified asthma, uncomplicated; J44.9 Chronic obstructive pulmonary disease, unspecified; G47.33 Obstructive sleep apnea (adult) (pediatric); I27.20 Pulmonary hypertension, unspecified; E11.9 Type 2 diabetes mellitus without complications; Z88.5 Allergy status to narcotic agent; Z99.81 Dependence on supplemental oxygen

== ENCOUNTER → 2017-11-21 | Outpatient (CLI) | payer OTHER ==
[~2017-11-21] MED LIST changes: -ASPI81TA28 PO; -ATROPINE SULFATE 0.1 MG/ML 5ML SYR IV PRN; -CEFAZOLIN 2000MG IV PUSH 15 ML IV SCH; -EpHEDrine SULFATE INJ 50 MG/ML AMP IV PRN; -EpINEphrine HCL INJ 1 MG/ML 1ML SYRINGE ONE; -FENTANYL CITRATE INJ 50 MCG/1 ML 2 ML VIAL IV PRN; -FENTANYL CITRATE INJ 50 MCG/1 ML 2 ML VIAL ONE; -FLUT0.15 NAE; -GLYCOPYRROLATE INJ 0.2 MG/ML VIAL ONE; -HYDROCODONE/ACETAMIN 5/325MG TAB PO PRN; -LACTATED RINGER'S 1000ML 1,000 ML IV SCH; -LARYING-O-JET KIT (LTA) ONE; -LIDOCAINE 2% 20 MG/ML 5ML SYR ONE; -LIDOCAINE 4% INH SOLN 4 ML BTL ONE; -LIDOCAINE/EPINEPHRINE 1% 20 ML VIAL ONE; -MIDAZOLAM HCL 1 MG/ML 2ML VIAL ONE; -NEOSTIGMINE METHYLSULFATE 5 MG/5 ML SYR ONE; -ONDANSETRON INJ 2 MG/ML 2 ML VIAL IV PRN; -ONDANSETRON INJ 2 MG/ML 2 ML VIAL ONE; -OXYMETAZOLINE HCL 0.05% NA SPR 15 ML BTL NAE SCH; -OXYMETAZOLINE HCL 0.05% NA SPR 15 ML BTL PRN; -PHENYLEPHRINE 100MCG/ML 5ML SYR ONE; -PROPOFOL IV EMULSION 10 MG/ML 20 ML VIAL ONE; -ROCURONIUM BROMIDE 10 MG/ML 5 ML VIAL ONE; -TRIAMCINOLONE ACET 40 MG/ML VIAL ONE; -[UNRECOGNIZED DRUG - REMARK] SCH
--- NOTE | 2017-11-21 14:24 | DIAGNOSTIC IMAGING REPORT ---
CHEST 2 VIEWS ROUTINE CLINICAL HISTORY: R05 Cough dyspnea COMPARISON STUDY: 10/28/2017 FINDINGS: Stable exam compared to the prior study. Extensive interstitial/bronchiectatic change. Underlying reticular nodular-type changes are also stable. Diaphragms remain smooth. There is central catheter ends. Cava. There is evidence for right shoulder hemiarthroplasty. IMPRESSION: Stable bronchiectasis with extensive reticular nodular changes throughout both hemithoraces. No significant change from the prior study. The above report was generated using voice recognition software. It may contain grammatical, syntax or spelling errors. Electronically signed by: Santosh Diaz M.D. 11/21/2017 2:22 PM Dictated Date/Time: 11/21/2017 2:20 PM
[2017-11-21 14:40] LABS: BASO % 0.1 %; BASO ABS # 0.01 K/uL (0-0.2); EOS % 1.4 %; EOS ABS # 0.16 K/uL (0-0.5); HEMATOCRIT 33.6 % (37-47); HEMOGLOBIN 10.1 g/dL (12.0-16.0); IG# 0.05 K/uL (0.00-0.02); LYMPH % 8.1 %; LYMPH ABS # 0.95 K/uL (1.2-3.4); MEAN CELL VOLUME 82.8 fL (80-100); MEAN CORPUSCULAR HEMOGLOBIN 24.9 pg (25-34); MEAN CORPUSCULAR HGB CONC 30.1 g/dl (32-36); MEAN PLATELET VOLUME 9.3 fL (7.4-10.4); MONO % 3.7 %; MONO ABS # 0.43 K/uL (0.11-0.59); NEUT % 86.3 %; NEUT ABS # 10.13 K/uL (1.4-6.5); PLATELET COUNT 291 K/uL (130-400); RED CELL DISTRIBUTION WIDTH CV 16.4 % (11.5-14.5); RED CELL DISTRIBUTION WIDTH SD 49.7 fL (36.4-46.3); WHITE BLOOD COUNT 11.73 K/uL (4.8-10.8)
[2017-11-21 14:48] LABS: PTT PATIENT 29.6 SECONDS (21.0-31.0)
[2017-11-21 15:18] LABS: BLOOD UREA NITROGEN 13 mg/dl (7-18); CALCIUM 9.8 mg/dl (8.5-10.1); CARBON DIOXIDE 32 mmol/L (21-32); CREATININE 0.69 mg/dl (0.60-1.20); GLUCOSE 173 mg/dl (70-99); POTASSIUM 4.2 mmol/L (3.5-5.1); SODIUM 132 mmol/L (136-145)
== END | disposition home or self-care (01) ==
LOC: C.RAD1850 13:45
PROVIDERS: ATTEND Physician Assistant
DX: J47.9 Bronchiectasis, uncomplicated (principal); N39.0 Urinary tract infection, site not specified

== ENCOUNTER → 2017-11-24 | Outpatient (CLI) | payer OTHER | END | disposition home or self-care (01) | LOC: C.LABMFLN 15:48 | PROVIDERS: ATTEND Physician Assistant | DX: N39.0 Urinary tract infection, site not specified (principal) ==

== ENCOUNTER → 2017-12-01 | Day surgery (SDC) | payer OTHER ==
[2017-12-01] VITALS (7 sets, daily range): BP systolic 118–128; BP diastolic 71–81; PULSE 67–99; TEMP 36.6–36.9; O2SAT 88–92; Ht 160 cm; Wt 64.0 kg
[~2017-12-01] VITALS: Ht 160 cm; Wt 64.0 kg
[~2017-12-01] MED LIST changes: +ASCO250T5 PO; +DEXTROSE 5% 1000ML 1,000 ML IV SCH; +FENTANYL CITRATE INJ 50 MCG/1 ML 2 ML VIAL IV ONE; +GUAI1TAB69 PO; +HYD10 PO; +HYDR5TAB PO; +LEVALBUTEROL 1.25MG/0.5ML NEB INH ONE; +LIDOCAINE 4% INH SOLN 4 ML BTL TOP ONE; +LIDOCAINE HCL 2% LOCAL 50ML VIAL INSTIL ONE; +LIDOCAINE VISCOUS 2% 100ML TOP ONE; +MIDAZOLAM HCL 5 MG/ML 1 ML VIAL IV ONE; +MULT-506 PO; +NURSING VERBAL MED ORDER ONE; +[UNRECOGNIZED DRUG - CODE]
--- NOTE | 2017-12-01 07:36 | Pre Sedation Assessment ---
Pre Sedation Assessment General Date of Sedation: Dec 01, 2017. Pre-Sedation Airway Assessment Smoking Status: Never Smoker Mallampati Classification: Class II ASA Classification: Class II Procedure Planning Contraindications for Sedation: None Current Medications Reviewed: Yes Notes The planned sedation has been discussed with the patient. Informed Consent was obtained. I have identified the patient, determined the appropriateness of sedation and have assessed the patient immediately prior to the procedure. All medicine(s) and interventions are by my order.
--- NOTE | 2017-12-01 09:48 | Post Sedation Assessment ---
Post Sedation Assessment General Date of Sedation Dec 01, 2017. Vital Signs: Vital Signs Past 12 Hours Date Time Temp Pulse Resp B/P (MAP) Pulse Ox O2 Delivery O2 Flow Rate FiO2 12/01/17 09:40 85 14 135/78 85 Mask 10 12/01/17 09:35 100 14 83/55 91 Mask 10 12/01/17 09:30 70 14 110/71 89 Mask 10 12/01/17 09:25 61 14 115/72 95 Nasal Cannula 3 12/01/17 09:20 64 14 131/71 94 Nasal Cannula 3 12/01/17 07:54 36.6 67 24 128/78 (95) 92 Nasal Cannula 4 Post Procedure Recovery Score Activity: (2) Moves 4 extremities * Respiration: (2) Deep breath/cough Circulation: (2) +/-20% PreAnes Value Consciousness: (1) Arouseable (by name) Oxygen Saturation: (1) O2 needed for >90% Post Anesthesia Score: 8 Discharge Sedation Level of Care: Phase I Post Sedation Plan On clinical assessment, the patient appears to have tolerated the sedation without complications. Patient is recovering as anticipated. Patient will continue to be monitored by nursing and may be discharged when sedation discharge criteria are met per below protocol. Upon Completions of procedure and additional 15 minutes continue every 5 minute vital signs and the P.A.R. score; then discharge to a Phase I or Fast Track to Phase II per the following guidelines: * Discharge Patient to appropriate Phase II area if PAR is 8 or greater or return to pre- procedure baseline. The post - procedure orders will be as directed. * If PAR score is less than 8 or not return to pre-procedure baseline then patient will follow Phase I monitoring till PAR is reached for Phase II. The Phase I may be done in procedure room or may call to secure a Phase I area. * If naloxone or flumazenil are used for reversal, hold in Phase I for an additional 60 -120 minutes before discharge to Phase II. Please call the Sedation Physician to re-evaluate and complete post-note for discharge to Phase II area. Do NOT discharge from procedure sedation or Phase 1 until post- sedation evaluation note is complete by procedure /sedation MD Sedation Discharge Instructions to be given to the patient at discharge to home.
--- NOTE | 2017-12-01 09:49 | [facility] Operative Report ---
Operative Report Operative Date Dec 01, 2017. Pre-Operative Diagnosis Bronchiectasis Post-Operative Diagnosis Bronchiectasis Procedure(s) Performed Bronchoscopy Surgeon Dr. Lang Post Doctoral Researcher Surgeon(s) None Estimated Blood Loss 0 Findings Chronic Bronchiectasis w mucoid impaction Specimens Right and Left Washing Complication(s) None Disposition I attest to the content of the Intraoperative Record and any orders documented therein. Any exceptions are noted below.
--- NOTE | 2017-12-01 09:51 | Discharge Instructions ---
Discharge Instructions Date of Service Dec 01, 2017. Admission Reason for Admission: Bronchiectasis, Chronic Respiratory Disease Discharge Discharge Diagnosis / Problem: Chronic Bronchiectasis w mucoid impaction Discharge Goals Goal(s): Therapeutic intervention Activity Recommendations Activity Limitations: resume your previous activity Lifting Limitations: none Exercise/Sports Limitations: none May Resume Sexual Activity: when tolerated Shower/Bathe: no limitations Driving or Machine Use: resume 1 day after discharge none . Current Hospital Diet Patient's current hospital diet: regular Discharge Diet Recommended Diet: Regular Diet Fluid Restriction: None Procedures Procedures Performed: Bronchoscopy Pending Studies Studies pending at discharge: no Laboratory Results Hemoglobin A1c Test 11/02/17 14:30 Range/Units Estimated Average Glucose 126 mg/dl Hemoglobin A1c 6.0 H 4.5-5.6 % Medical Emergencies . Who to Call and When: Medical Emergencies: If at any time you feel your situation is an emergency, please call 911 immediately. . Non-Emergent Contact Non-Emergency issues call your: Construction Administrative Assistant Call Non-Emergent contact if: temperature is above 101 . . "Provider Documentation" section prepared by Jorge Lang. .
--- NOTE | 2017-12-01 12:12 | OPERATIVE REPORT ---
DATE OF OPERATION: 12/01/2017 PROCEDURE: Fiberoptic bronchoscopy with bronchoalveolar lavage. INDICATIONS: Chronic bronchiectasis with mucoid impaction. ANESTHESIA PREOPERATIVELY: None. ANESTHESIA DURING PROCEDURE: 3 mg IV Versed, 50 mcg IV fentanyl, 20 mL 2% Xylocaine spray above and below the cords, 4% viscous Xylocaine intranasally. DESCRIPTION OF PROCEDURE: Fiberoptic bronchoscope inserted into the right naris with minimal difficulty and passed to the level of true vocal cords. The cords appeared to approximate normally with phonation without evidence of lesions or paralysis. The area was anesthetized with 2% Xylocaine spray, and the scope was then introduced in the right and left tracheobronchial tree. The trachea immediately was identified as virtually occluded with thick mucopurulent and mucoviscous secretion. This was lavaged until clear. The ashwin was sharp. The right mainstem bronchus also was teaming with mucopurulent secretion. Each lobar segment, specifically right upper lobe, the apical posterior and anterior segments, bronchus intermedius, right middle lobe, the medial lateral segments, all basilar segments, right lower lobe were impacted with thick mucoviscous secretion and were lavaged copiously until clear. Left tracheobronchial tree showed similar findings with mucoid impaction, especially involving the left lower lobe and all basilar segments. These regions were lavaged with normal saline and that was sent for appropriate studies. Left upper lobe and lingual subdivision were otherwise free of endobronchial lesions down to the subsegmental bronchi. Bronchial crypts and clefts were visible throughout the right and left tracheobronchial tree. No brushings or biopsies were obtained. Patient did desaturate, procedure was terminated, and the patient was given a nebulizer treatment with Xopenex 1.25 mg and transferred to the same day surgery unit hemodynamically stable, no signs of respiratory compromise. OVERALL ASSESSMENT: Chronic bronchiectasis with mucoid impaction, probable gram-negative infection. Will await microbiological and cytologic examination of the bronchial washings. I attest to the content of the Intraoperative Record and any orders documented therein. Any exception s are noted below.
[2017-12-06 11:52] LABS: HERPES SIMPLEX VIRUS CULT NOT ISOLATED (NOT ISOLATED)
== END | disposition home or self-care (01) ==
LOC: C.ACU 07:17
PROVIDERS: ATTEND Internal Medicine Pulmonary Disease
DX: J47.9 Bronchiectasis, uncomplicated (principal); E11.9 Type 2 diabetes mellitus without complications; Z99.81 Dependence on supplemental oxygen; E66.9 Obesity, unspecified; G47.33 Obstructive sleep apnea (adult) (pediatric); Z79.82 Long term (current) use of aspirin; Z79.4 Long term (current) use of insulin; Z79.899 Other long term (current) drug therapy

== ENCOUNTER 2018-11-14 06:51 | Observation (INO) ==
[2018-11-14] MEDS: SODIUM CHLORIDE 0.9% 1000ML 500 ML IV SCH (07:45)
--- NOTE | 2018-11-14 07:46 | History & Physical Bridge Note ---
Date of Service November 14, 2018 History & Physical Bridge Note I have examined the patient, reviewed the History & Physical and in the interval since the performance of the History & Physical I have noted the following changes of clinical significance: no changes noted
--- NOTE | 2018-11-14 07:48 | Pre Anesthesia Assessment ---
Date of Service November 14, 2018 Pre Sedation Assessment Vital Signs Temp Pulse Resp BP Pulse Ox 11/14/18 07:26 36.6 C 98 H 22 102/72 93 Cardiovascular RRR, no murmur, no edema + peripheral pulses normal Respiratory normal respiratory effort, lungs clear to auscultation Pre-Sedation Airway Assessment Smoking Status: Never smoker Hx Sleep Apnea: No Hx Difficult Intubation: No Short, Thick Neck: No Thyromental Distance: > or= 3.5 Finger Breadths Oral Cavity: + WNL Mallampati Class: III ASA: ASA3 Notes The planned sedation has been discussed with the patient. Informed Consent was obtained. I have identified the patient, determined the appropriateness of sedation and have assessed the patient immediately prior to the procedure. All medicine(s) and interventions are by my order.
[2018-11-14] MEDS ORDERED: LIDOCAINE HCL 2% (LOCAL) INJ 50 ML VIAL INSTIL ONE (08:21)
[2018-11-14] MEDS ORDERED: OXYMETAZOLINE 0.05% 30 ML BTL NAE ONE (08:21)
[2018-11-14] MEDS ORDERED: LIDOCAINE 4% INH SOLN 4 ML BTL NAE ONE (08:21)
[2018-11-14] MEDS ORDERED: LEVALBUTEROL HCL 1.25 MG/3 ML NEB NEB STA (08:21)
[2018-11-14] MEDS ORDERED: MIDAZOLAM HCL 1 MG/ML 2ML VIAL IV STA (08:21)
[2018-11-14] MEDS ORDERED: fentaNYL citrate 100 MCG/2 ML VIAL IV ONE (08:21)
[2018-11-14] MEDS ORDERED: LIDOCAINE HCL VISCOUS SOLN 2% 15 ML UDC TOP ONE (08:21)
--- NOTE | 2018-11-14 08:22 | Post Anesthesia Assessment ---
Date of Service November 14, 2018 Post Sedation Assessment Vital Signs Temp Pulse Pulse Resp BP Pulse Ox 11/14/18 08:20 107 H 20 127/73 97 11/14/18 08:15 122 H 22 144/92 H 93 11/14/18 08:10 106 H 20 139/87 95 11/14/18 08:05 94 H 18 128/80 98 11/14/18 07:26 36.6 C 98 H 22 102/72 93 Recovery Score Activity: Moves 4 extremities Respiration: Deep Breath/Cough Circulation: +/-20% PreAnes Value Consciousness: Arouseable (by name) Oxygen Saturation: O2 needed for >90% Post Anesthesia Score: 8 Discharge Sedation Level of Care: Fast Track Phase II Post Sedation Plan On clinical assessment, the patient appears to have tolerated the sedation without complications. Patient is recovering as anticipated. Patient will continue to be monitored by nursing and may be discharged when sedation discharge criteria are met per below protocol. Upon Completions of procedure and additional 15 minutes continue every 5 minute vital signs and the P.A.R. score; then discharge to a Phase I or Fast Track to Phase II per the following guidelines: * Discharge Patient to appropriate Phase II area if PAR is 8 or greater or return to pre- procedure baseline. The post - procedure orders will be as directed. * If PAR score is less than 8 or not return to pre-procedure baseline then patient will follow Phase I monitoring till PAR is reached for Phase II. The Phase I may be done in procedure room or may call to secure a Phase I area. * If naloxone or flumazenil are used for reversal, hold in Phase I for continued monitoring from when last reversal dose was given for a minimum of 60 minutes or longer pending the nurse and/or physician discretion of patient condition before discharge to Phase II. Please call the Sedation Physician to re-evaluate and complete post-note for discharge to Phase II area. Do NOT discharge from procedure sedation or Phase 1 until post- sedation evaluation note is complete by procedure /sedation MD Sedation Discharge Instructions to be given to the patient at discharge to home.
--- NOTE | 2018-11-14 08:22 | Post Operative Brief Note ---
[facility] Immediate Post Op with CF Date of Surgery November 14, 2018 Pre & Post Diagnosis Operation Date: 11/14/18 07:00 Pre-Op Diagnosis: BRONCHIECTASIS Post-Op Diagnosis: BRONCHIECTASIS w mucoid impaction Procedure Operation Date: 11/14/18 07:00 Actual Procedures p Bronchoscopy Radiology(Bilateral) - Jorge Lang MD Surgeon Jorge Lang MD Plant Operator none Estimated Blood Loss 0 Findings Consistent with Post-Op Diagnosis Chronic Bronchiectasis w mucoid impaction Specimens Specimen Description: Right and Left Lung Wash Complications none Disposition Accompanied Patient To Recovery: No Overlapping Procedure I was present for: the critical portions of procedure. I was immediately available: during the entire case. Back up surgeon: was not required during procedure.
--- NOTE | 2018-11-14 09:37 | History & Physical Report ---
Date of Service November 14, 2018 Assessment & Plan (1) Bronchiectasis: Pt underwent bronchoscopy this morning by Dr. Lang - sputum studies pending. Abnormal lung exam with wheezing post-procedure as well as noted to have low-grade fever and tachycardia - Starting empiric IV levofloxacin while waiting on updated sputum studies - was treated with Bactrim for stenotrophomonas last month but pt does not feel this helped - Hold oral hydrocortisone and start IV solumedrol 40 mg Q8 hrs - ATC nebs (levalbuterol/ipratropium) - Continue chronic O2 therapy - Pt may use own Trilogy machine - Pulmonary consult - follows with Dr. Lang (2) CVID (common variable immunodeficiency): Follows with Jada Dorantes PA-C with allergy/immunology and receives monthly IVIG infusions - due for next infusion on 11/16/18 (3) COPD (chronic obstructive pulmonary disease): - Continue Breo which she takes at home and nebs as above (4) Steroid-induced diabetes: Although pt has not been using insulin routinely at home or following a diabetic diet, suspect that BSGs while admitted will be elevated with steroid use - Diabetic diet - BSG ACHS - Insulin sliding scale - pt agreeable (5) BILL (obstructive sleep apnea): - Continue use of Trilogy as per home instructions (6) Depression: - Continue home sertraline (7) Mild pulmonary hypertension: (8) GERD (gastroesophageal reflux disease): - On pantoprazole 40 mg daily as outpatient - will continue (9) Chronic respiratory failure: On chronic O2 from 2-5L via NC - most recently has been requiring 4L due to episodes of hypoxia with exertion - Continue O2 while admitted and titrate to effect. (10) Sinus tachycardia: Follows with cardiology as outpatient - thought to be multi-factorial but pt notes worsening recently - Continue Toprol XL 50 mg daily (11) DVT prophylaxis: - Will use Lovenox 40 mg subQ daily - Encourage ambulation as tolerated - may need to consider PT/OT once respiratory status improves Pt seen and examined with collaborating physician Dr. Rodriguez. Plan of care discussed and as outlined above. Pt to be followed by Dr. Calderon starting in AM Yunior Garibay PA-C History of Present Illness Chief Complaint: Bronchiectasis s/p bronchoscopy Primary Care Provider: SHMUEL Álvarez This is a 58 y/o female with a PMH of bronchiectasis, CVID receiving IVIG therapy monthly, severe COPD, chronic respiratory failure (on 2-5 L of O2 and trilogy at night), pulmonary HTN, DM2, and adrenal insufficiency who is being admitted for observation post-bronchoscopy. Pt was recently admitted to [facility] from 10/22/18-10/27/18 with acute exacerbation of bronchiectasis secondary to stenotrophomonas. Pt was treated with a two week course of Bactrim but pt was only able to take 1 tab BID rather than the 2 tab BID that was prescribed as she noted significant GI distress with the higher doses. Finished this on 11/09/18. Pt follows with Dr. Lang for pulmonology. She was seen for f/u on 10/30/18 and was still not feeling well. Prednisone taper was added and pt scheduled for bronchoscopy. Today, she underwent procedure and was noted to have a mucoid impaction and post-procedure to be tachycardic with low-grade temperature elevation so we were consulted to admit patient for observation. Cultures were collected during procedure and are pending. Pt has a history of various multi- drug resistant infections previously. Has followed with Dr. Adamson in the past. Patient reports that she has been worsening since she finished the prednisone taper from pulmonology. In particular, her O2 sats have been dropping with walking around to the 70s. She has been using the Trilogy to recover more quickly when her O2 sats dropped. Notes increased cough that is productive of yellow-green mucus but denies hemoptysis. +night sweats but denies fevers or chills. Denies chest pain but has noted pain in the left upper thoracic area. Also c/o posterior headaches that are worse during episodes of hypoxia. Has bee n limiting her use of inhalers and nebs due to episodes of tachycardia to a HR of 130s. Appetite has been good but notes increased fatigue. Allergies Allergy/AdvReac Type Severity Reaction Status Date / Time albuterol AdvReac Mild CHEST Verified 11/14/18 07:18 PAIN, LEVALBUTEROL OK oxycodone AdvReac Mild CAUSES Verified 11/14/18 07:18 DEPRESSION Home Medications Home Medications Medication Instructions Recorded Confirmed Type Caltrate 600-D Plus Minerals 1 tab PO BID 12/17/17 11/14/18 History Gammagard Liquid 0 mg/kg IV MONTHLY 12/17/17 11/14/18 History Probiotic 1 tab PO QPM 12/17/17 11/14/18 History acetaminophen 1,000 mg PO Q6H PRN 12/17/17 11/14/18 History ascorbic acid (vitamin C) 250 mg PO DAILY 12/17/17 11/14/18 History cyanocobalamin (vitamin B-12) 1,000 mcg PO DAILY 12/17/17 11/14/18 History folic acid 1 mg PO QPM 12/17/17 11/14/18 History guaifenesin 1,200 mg PO Q12H PRN 12/17/17 11/14/18 History hydrocortisone 2.5 mg PO HS 12/17/17 11/14/18 History hydrocortisone 10 mg PO QAM 12/17/17 11/14/18 History magnesium oxide 400 mg PO DAILY 12/17/17 11/14/18 History multivitamin 1 tab PO DAILY 12/17/17 11/14/18 History pantoprazole 40 mg PO DAILY 12/17/17 11/14/18 History sertraline 75 mg PO DAILY 12/17/17 11/14/18 History Breo Ellipta 1 inh INHALATION DAILY 04/21/18 11/14/18 History Novolog Flexpen U-100 Insulin See Rx Instructions .ROUTE .COMPLEX 04/21/18 11/14/18 History metoprolol succinate 50 mg PO DAILY 11/14/18 11/14/18 History Past Med/Surg History Medical History CVID (common variable immunodeficiency) (Chronic) Receives monthly IVIG infusions COPD (chronic obstructive pulmonary disease) (Chronic) Pneumomediastinum (Resolved) Pneumothorax (Resolved) Oxygen dependent (Chronic) "2L-4L" On 04/29/17 18:15 Maine Martínez wrote "4L" On 04/08/15 18:56 Adriana Morales wrote "2L" Steroid-induced diabetes (Chronic) BILL (obstructive sleep apnea) (Chronic) Depression (Chronic) Mild pulmonary hypertension (Chronic) 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) Anxiety (Chronic) Bronchiectasis (Chronic) GERD (gastroesophageal reflux disease) (Chronic) Hypogammaglobulinemia (Chronic) Hyperlipidemia (Chronic) Chronic respiratory failure (Chronic) Depression Hypogammaglobulinemia Surgical History History of myringotomy (Resolved) Hx of tympanostomy tubes (Resolved) S/P tonsillectomy and adenoidectomy (Resolved) History of hysterectomy (Resolved) S/P sinus surgery (Resolved) H/O atrial septal defect repair (Resolved) Hx of appendectomy (Resolved) Hx of cholecystectomy (Resolved) S/P section (Chronic) H/O total shoulder replacement (Resolved) History of right hip replacement (Resolved) History of left hip replacement (Chronic) Social History Preferred Language: Albanian Communication Ability: Effective Television Specialist Required: No Beliefs That Will Affect Care: None Current Living Situation: Alone current occupational status: disabled Other Information That Helps Us Care for You: No Feels Safe at Home: Yes Safety Concerns: Feels Safe At This Time Smoking Status: Never smoker Do You Dip or Chew Tobacco: No ; Second Hand Exposure: No ; Hx Alcohol Use: No Hx Substance Use: No Review of Systems Review of Systems: All systems reviewed & are unremarkable except as noted in HPI & below Constitutional: + sweats and + fatigue; no fever, no chills and no anorexia Eyes: no diplopia Ear, Nose, Mouth, Throat: no sore throat and no dysphagia Respiratory: as per Subjective / HPI Cardiovascular: + palpitations; no syncope, no edema and no calf pain Gastrointestinal: no abdominal pain, no nausea, no vomiting and no diarrhea/loose stools Genitourinary: no dysuria, no urinary frequency and no hematuria Musculoskeletal: + back pain Integumentary: no rash and no non-healing lesions Neurologic: + headache(s); no falls, no tremor(s) and no syncope Psychiatric: History of depression and anxiety but currently well-controlled Endocrine: History of steroid-induced diabetes - has not recently used insulin at home Physical Exam Constitutional: WD/WN, vitals as above no acute distress Eyes: no conjunctival abnormality and no scleral abnormality ENMT: external ear and nose normal, oropharynx normal Neck: trachea midline Respiratory: no respiratory distress and does not use accessory muscles Auscultation: + rhonchi (throughout) and + wheezes (throughout) Cardiovascular: Rate/Rhythm: regular rate and regular rhythm Extremities: no calf tenderness and no pedal edema Gastrointestinal (Abdomen): Inspection/Auscultation: normal bowel sounds; abdomen not distended Percussion/Palpation: abdomen soft; abdomen nontender Musculoskeletal: Head/Neck/Chest: normocephalic, head atraumatic and neck supple Extremities: no cyanosis Skin: no rashes, warm and dry no jaundice Neurologic: moves all extremities; no focal motor deficits Speech / Cognition: normal speech Psychiatric: A+Ox3, euthymic affect Results & Data Vital Signs (Past 12 Hours) Vital Signs Temp Pulse Pulse Resp BP Pulse Ox 11/14/18 09:20 37.3 C 92 H 114/72 91 11/14/18 08:50 37.2 C 102 H 20 127/70 91 11/14/18 08:35 37.6 C H 107 H 20 127/86 90 11/14/18 08:30 110 H 20 128/78 94 11/14/18 08:25 107 H 20 135/76 94 11/14/18 08:20 107 H 20 127/73 97 11/14/18 08:15 122 H 22 144/92 H 93 11/14/18 08:10 106 H 20 139/87 95 11/14/18 08:05 94 H 18 128/80 98 11/14/18 07:26 36.6 C 98 H 22 102/72 93 Laboratory Results Laboratory Results - last 24 hr 11/14/18 11/14/18 11/14/18 07:16 08:12 10:29 WBC 8.92 RBC 3.52 L Hgb 9.3 L Hct 30.5 L MCV 86.6 MCH 26.4 MCHC 30.5 L RDW Std Deviation 51.3 H RDW Coeff of Adan 16.0 H Plt Count 171 MPV 8.9 Immature Gran % (Auto) 0.2 Neut % (Auto) 80.5 Lymph % (Auto) 12.6 Hall % (Auto) 4.9 Eos % (Auto) 1.8 Baso % (Auto) 0.0 Immature Gran # (Auto) 0.02 Neut # (Auto) 7.18 H Lymph # (Auto) 1.12 L Hall # (Auto) 0.44 Eos # (Auto) 0.16 Baso # (Auto) 0.00 Sodium Potassium Chloride Carbon Dioxide Anion Gap BUN Creatinine Est Cr Clr Drug Dosing Est GFR ( Amer) Est GFR (Non-Af Amer) BUN/Creatinine Ratio Glucose POC Glucose 144 H Lactate Calcium Magnesium Total Bilirubin AST ALT Alkaline Phosphatase Total Protein Albumin Globulin Albumin/Globulin Ratio Procalcitonin BAL A.galactomannan Ag Pending BAL A.galactomann Index Pending 11/14/18 11/14/18 11/14/18 10:29 10:29 10:29 WBC RBC Hgb Hct MCV MCH MCHC RDW Std Deviation RDW Coeff of Adan Plt Count MPV Immature Gran % (Auto) Neut % (Auto) Lymph % (Auto) Hall % (Auto) Eos % (Auto) Baso % (Auto) Immature Gran # (Auto) Neut # (Auto) Lymph # (Auto) Hall # (Auto) Eos # (Auto) Baso # (Auto) Sodium 137 Potassium 4.1 Chloride 97 L Carbon Dioxide 38 H Anion Gap 2.0 L BUN 15 Creatinine 0.62 Est Cr Clr Drug Dosing 96.0 Est GFR ( Amer) 116.0 Est GFR (Non-Af Amer) 100.1 BUN/Creatinine Ratio 24.0 H Glucose 121 H POC Glucose Lactate 0.7 Calcium 9.3 Magnesium 2.1 Total Bilirubin 0.5 AST 7 L ALT 12 Alkaline Phosphatase 75 Total Protein 7.5 Albumin 2.8 L Globulin 4.7 H Albumin/Globulin Ratio 0.6 L Procalcitonin 0.07 BAL A.galactomannan Ag BAL A.galactomann Index Medications Administered Sodium Chloride (Nss 1000ml) 500 mls @ 15 mls/hr IV .Q24H [facility] Stop: 12/14/18 07:59 Last Admin: 11/14/18 07:45 Dose: 30 mls/hr Documented by: [id number] Levofloxacin/Dextrose (Levaquin/D5w) 750 mg in 150 mls @ 100 mls/hr IV Q24H MRAIANA; Protocol Stop: 11/21/18 09:59 Last Admin: 11/14/18 11:06 Dose: 100 mls/hr Documented by: [id number] Discontinued Medications Fentanyl Citrate (Fentanyl Citrate) 50 mcg IV NOW ONE Stop: 11/14/18 08:22 Last Admin: 11/14/18 08:06 Dose: 50 mcg Documented by: [id number] Levalbuterol HCl (Xopenex 1.25mg/3ml Neb) 1.25 mg NEB NOW STA Stop: 11/14/18 08:22 Last Admin: 11/14/18 08:25 Dose: 1.25 mg Documented by: [id number] Lidocaine HCl (Xylocaine 4% Inh) 3 ml ESPERANZA NOW ONE Stop: 11/14/18 08:22 Last Admin: 11/14/18 08:25 Dose: 3 ml Documented by: [id number] Lidocaine HCl (Xylocaine 2% Preserved) 18 ml INSTIL NOW ONE Stop: 11/14/18 08:22 Last Admin: 11/14/18 08:25 Dose: 18 ml Documented by: [id number] Lidocaine HCl (Viscous Lidocaine 2%) 3 ml TOP NOW ONE Stop: 11/14/18 08:22 Last Admin: 11/14/18 08:24 Dose: 3 ml Documented by: [id number] Midazolam HCl (Versed) 2 mg IV NOW STA Stop: 11/14/18 08:22 Last Admin: 11/14/18 08:06 Dose: 2 mg Documented by: [id number] Oxymetazoline HCl (Afrin 0.05%) 1 sprays ESPERANZA NOW ONE Stop: 11/14/18 08:22 Last Admin: 11/14/18 08:23 Dose: 1 sprays Documented by: [id number] Code Status & VTE Plan Code Status Pt requests to be DNR/DNI - states that she has been told that if she were to be put on a ventilator that it would be unlikely that she would be able to be weaned off. She does not wish to be on a ventilator so requests DNR/DNI. VTE Prophylaxis Plan VTE Prophylaxis will be ordered: Yes Supervising Physician Co-Signing Physician Notes Patient is a 41-year-old female with bronchiectasis, CVID, Advanced COPD on chronic Oxygen dependency, Pulmonary hypertension and other problems was admitted on recommendations from Pulmonology after having bronchoscopy for mucoid impaction by Dr. Lang today. Patient was noted to be febrile and tachycardic after the procedure was admitted for further evaluation. Patient recently completed a course of Bactrim, prednisone for exacerbation of bronchiectasis. She was noted to have no leukocytosis, normal lactate levels, procalcitonin 0.07. Chest x-ray is currently pending. She admits to having cough with yellowish expectoration, shortness of breath on exertion. Please review HPI for complete details of presentation. On exam patient is moderately built and nourished, normocephalic atraumatic, no apparent distress, lungs decreased breath sounds, coarse, bilateral expiratory wheezes, Chemo-Port on right side of the chest, S1-S2, no murmur, grossly no focal neurological deficits, no pedal edema. Patient is admitted for management of exacerbation of bronchiectasis. Rule out Infectious Process. Empirically start her on IV antibiotics, check blood cultures. Follow-up on bronchial washing studies, also start on IV steroids, nebulizer treatments. Aggressive pulmonary hygiene no chest physical therapy. Pulmonology consulted. Supplemental oxygen as needed. Monitor blood glucose levels while on antibiotics. I personally reviewed the record. Patient is interviewed and examined at bedside. Patient's care is coordinated with Nan Garibay PA-C. Please refer to the documentation above for details of patient's presentation and for discussion of other issues. (1) Chronic respiratory failure Respiratory failure complication: hypoxia Qualified Code(s): J96.11 - Chronic respiratory failure with hypoxia (2) Depression Depression Type: unspecified Qualified Code(s): F32.9 - Major depressive disorder, single episode, unspecified (3) COPD (chronic obstructive pulmonary disease) COPD type: unspecified COPD Qualified Code(s): J44.9 - Chronic obstructive pulmonary disease, unspecified (4) Bronchiectasis Bronchiectasis type: with acute exacerbation Qualified Code(s): J47.1 - Bronchiectasis with (acute) exacerbation (5) GERD (gastroesophageal reflux disease) Esophagitis presence: esophagitis presence not specified Qualified Code(s): K21.9 - Gastro-esophageal reflux disease without esophagitis
[2018-11-14] MEDS ORDERED: POLYETHYLENE (MIRALAX) 17 GM PACK PO PRN (09:49)
[2018-11-14] MEDS ORDERED: ACETAMINOPHEN 325 MG TAB PO PRN (09:49)
[2018-11-14] MEDS ORDERED: ONDANSETRON INJ 2 MG/ML 2 ML VIAL IV PRN (09:49)
[2018-11-14] MEDS ORDERED: guaiFENesin 600 MG TABCR PO PRN (09:51)
[2018-11-14] MEDS ORDERED: GLUCOSE 40% GEL 15 GM TUBE PO PRN (09:53)
[2018-11-14] MEDS ORDERED: CARBOHYDRATES FOR HYPOGLYCEMIA PO PRN (09:53)
[2018-11-14] MEDS ORDERED: GLUCAGON FOR INJ 1 MG VIAL SQ PRN (09:53)
[2018-11-14] MEDS ORDERED: GLUCOSE 10 TABS/TUBE PO PRN (09:53)
[2018-11-14] MEDS ORDERED: DEXTROSE 50% 50 ML SYRINGE IV PRN (09:53)
[2018-11-14 10:47] LABS: Eosinophils # (auto) 0.16 K/uL (0-0.5); Eosinophils % (auto) 1.8 %; Hematocrit (blood only) 30.5 % (37-47); Hemoglobin 9.3 g/dL (12.0-16.0); Immature Granulocytes # (auto) 0.02 K/uL (0.00-0.02); Immature Granulocytes % (auto) 0.2 %; Lymphocytes # (auto) 1.12 K/uL (1.2-3.4); Lymphocytes % (auto) 12.6 %; Mean Corpuscular Volume 86.6 fL (80-100); Mean Platelet Volume 8.9 fL (7.4-10.4); Monocytes # (auto) 0.44 K/uL (0.11-0.59); Monocytes % (auto) 4.9 %; Neutrophils # (auto) 7.18 K/uL (1.4-6.5); Neutrophils % (auto) 80.5 %; Platelet Count 171 K/uL (130-400); RDW Standard Deviation 51.3 fL (36.4-46.3); Red Blood Count 3.52 M/uL (4.2-5.4); White Blood Count 8.92 K/uL (4.8-10.8)
[2018-11-14 10:57] LABS: Mean Corpuscular Hgb Conc 30.5 g/dL (32-36)
[2018-11-14 11:06] LABS: Albumin Level 2.8 gm/dl (3.4-5.0); Calcium 9.3 mg/dl (8.5-10.1); Est GFR (Non-African American) 100.1; Magnesium 2.1 mg/dl (1.8-2.4); Potassium 4.1 mmol/L (3.5-5.1)
[2018-11-14] MEDS: LEVOFLOXACIN/D5W 750 MG/150 ML BAG IV SCH (11:06)
[2018-11-14 11:09] LABS: Albumin Globulin Ratio 0.6 (0.9-2); Bilirubin,Total 0.5 mg/dl (0.2-1); Globulin 4.7 gm/dl (2.5-4.0); Total Protein 7.5 gm/dl (6.4-8.2)
[2018-11-14] MEDS ORDERED: ALBUT/IPRATROP 3MG/0.5MG NEB 3 ML VIAL NEB SCH (12:00)
[2018-11-14] MEDS: INSULIN ASPART 100 UNITS/ML 3 ML PEN SC SCH ×3 (12:18→20:44)
[2018-11-14] MEDS: methylPREDNISolone 40 MG in SYRINGE 0 ML IV SCH ×2 (12:18→20:43)
[2018-11-14] MEDS: IPRATROPIUM BROMIDE NEB SOLN 0.02% 2.5 ML VIAL INH SCH ×2 (13:28→19:16)
[2018-11-14] MEDS: LEVALBUTEROL 1.25MG/0.5ML NEB INH SCH ×2 (13:28→19:16)
[2018-11-14] MEDS ORDERED: XOPENEX/ATROVENT 1.25mg/0.5MG NEB COMBO NEB SCH (14:00)
--- NOTE | 2018-11-14 15:33 | XRay Report ---
XR chest 1V portable HISTORY: 58 years-old Female Chronic Bronchiectasis COMPARISON: Chest CT 10/23/2018, chest radiograph 12/17/2017 TECHNIQUE: Portable AP view of the chest FINDINGS: Cardiomediastinal and hilar silhouettes are unchanged. Prior median sternotomy. Calcific plaque the t horacic aortic arch. Stable positioning of the right IJ [id number] catheter. Right shoulder arthro plasty. Severe degenerative changes with remote deformity about the left humeral joint. Blunting of t he costophrenic angles suggests trace pleural effusions. Extensive bilateral bronchiectasis with reti cular opacities redemonstrated. Slightly progressed ill-defined opacities about the lateral right mid lung and right lung base. IMPRESSION: 1. Extensive bilateral bronchiectasis with chronic reticular opacities redemonstrated. 2. Suggestion of trace pleural effusions with slightly progressed lateral right midlung and right charles g base opacities suggestive of atelectasis or pneumonitis. The above report was generated using voice recognition software. It may contain grammatical, syntax o r spelling errors. Electronically signed by: Lobo Yoo M.D. 11/14/2018 3:32 PM
[2018-11-14] MEDS: LACTOBACILLUS ACIDOPHILUS (FLORANEX) TAB PO SCH (20:43)
[2018-11-14] MEDS: CALCIUM 600MG + VIT D 400 IU TAB PO SCH (20:43)
[2018-11-14] MEDS: FOLIC ACID 1 MG TAB PO SCH (20:44)
[2018-11-14] MEDS ORDERED: HYDROCORTISONE 10 MG TAB PO SCH (21:00)
--- NOTE | 2018-11-14 22:36 | Operative Report ---
DATE OF OPERATION: 11/14/2018 DATE OF PROCEDURE: 11/14/2018 PROCEDURE: Fiberoptic bronchoscopy with bronchoalveolar lavage. INDICATIONS: Chronic bronchiectasis with mucoid impaction refractory to outpatient and inpatient management. ANESTHESIA PREOPERATIVELY: None. ANESTHESIA DURING PROCEDURE: IV Versed 2 mg, IV fentanyl 50 mcg, 20 mL 2% Xylocaine spray above and below the cords, 4% viscous Xylocaine intranasally. Moderate conscious sedation was implemented at 0806 and completed at 0815. PROCEDURE IN DETAIL: Fiberoptic bronchoscope was inserted into the right naris with minimal difficulty and passed to the level of the true vocal cords. The cords appeared to approximate normally with phonation without evidence of lesions or paralysis. Scope was then introduced in the trachea and right and left tracheobronchial tree. Trachea was within normal limits. Opal was sharp. Right main stem bronchus was explored and appeared to be teaming with thick mucoviscous and mucopurulent secretion. Involved all lobar segments including the bronchus intermedius and with virtual occlusion of the right lower lobe bronchus. The right upper lobe, the apical posterior-anterior segments, bronchus intermedius, right middle lobe, medial lateral segments and all basilar segments of right lower lobe were free of endobronchial lesions, but showed a copious amount of mucopurulent secretion and each lobar and segmental bronchi was copiously lavaged with normosol and the aspirate sent for appropriate studies. A moderate degree of global inflammatory mucosal change was seen with bronchial crypts and clefts seen throughout the right tracheobronchial tree. The left tracheobronchial tree was then explored and no endobronchial lesions were seen, but there is same degree of purulent material was seen throughout the left tracheobronchial tree. Left upper lobe, the apical-posterior, anterior segments, lingular subdivision and left lower lobe were free of endobronchial lesions down to the subsegmental bronchi. Each lobar segment was lavaged with normosol and the aspirate sent for appropriate studies. The patient was given nebulizer treatment with Xopenex 1.25 mg, then transferred to [facility]1 hemodynamically stable with no further signs of respiratory compromise. The patient was examined in [facility] and a decision after discussion with the patient and her family was to admit the patient to the hospital for treatment of this purulent infection as patient clearly has not been responding to outpatient therapy. She recently completed a course of Bactrim-DS and had been hospitalized in [facility] for 4 days without improvement in her symptoms. She also appeared to be running a low grade temperature elevation when recorded at [facility] and the patient had complained of worsening palpitations at home with deterioration in her level of oxygenation and was now on oxygen at 4 liters by nasal cannula on a continual basis as an outpatient. I attest to the content of the Intraoperative Record and any orders documented therein. Any exception s are noted below.
--- NOTE | 2018-11-14 22:57 | Consultation Report ---
DATE OF CONSULTATION: 11/14/2018 DATE OF CONSULTATION: 11/14/2018 REASON FOR CONSULTATION AND HISTORY OF PRESENT ILLNESS: A 58-year-old pleasant white female well known to our pulmonary practice, underwent elective bronchoscopic evaluation with BAL this morning by myself as per referral by Cathy Cary/midlevel pulmonary medicine practice. The patient states she was recently discharged from [facility] for exacerbation of underlying lung disease, was placed on IV antibiotics (without steroids according to the patient) and discharged on a course of Bactrim, which she completed. She underwent bronchoscopic evaluation this AM as she has in the past when she has suffered from severe chronic bronchiectasis with recurrent gram negative infection and mucoid impaction.(and poorly responsive to aggressive medical management) She was grossly infected with bronchoalveolar lavage undertaken involving virtually all lobar and segmental bronchi throughout the right and left tracheobronchial tree (see bronchoscopy report) except for some brief desaturation seemed to tolerate the procedure well. Upon further questioning in ASU-1, it appeared she was running a low grade fever which was not detected earlier in the morning and patient reiterated that she did not feel well and had complained prior to the procedure of recurrent bouts of palpitations and worsening desaturation by oximetry at home.I notified Dr. Daisy Whitney and it was agreed upon to admit the patient for further evaluation and therapy. The patient has grown out Stenotrophomonas from sputum and bronchial washings in the past. She does not tolerate albuterol via nebulizer and so has been on levalbuterol with ipratropium as an outpatient along with chronic O2 supplementation that was increased to at least 4 liters at home. She also uses a Trilogy unit at home for hypoxic and hypercapnic respiratory failure along with her O2 supplementation. 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 She is due for her next infusion on 11/16/2018. She uses Breo inhaler at home along with her nebulizer and has required chronic steroid utilization at home and is diabetic following a diet as well. She is on insulin as well and follows a sliding scale. She also was treated for obstructive sleep apnea with noninvasive positive pressure ventilation. She suffers from depression and mild pulmonary hypertension along with GERD and as stated earlier, has been in chronic respiratory failure. Her last admission was in December 2017 prior to the [place] admission at our facility. She also suffers from chronic aspiration according to the notation. PAST SURGICAL HISTORY: Pertinent for myringotomy tubes tympanostomy, status post tonsillectomy and adenoidectomy. She has had a history of endoscopic sinus surgery and repair of an ASD as well as a history of appendectomy/cholecystectomy and as well as total shoulder replacement, bilateral hip replacements. 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 CAT scans in the past have shown extensive bronchiectatic changes with fibrotic changes affecting right middle lobe and lingula and evidence for mucoid impaction both by CT scanning and CAT scanning. For details of past medical history, medications, family and social history, I refer you to current and past record. PHYSICAL EXAMINATION: GENERAL: Reveals a well-developed, friendly white female in mild respiratory distress. CURRENT VITAL SIGNS: Blood pressure 111/77, pulse 104 and regular, respiratory rate 18, temperature 36.8, O2 sat 92% on 5 liters. SKIN: Without lesion. HEENT: Atraumatic, normocephalic. PERRLA. EOMI. Conjunctivae pink. Sclerae nonicteric. Fundi poorly visualized. NECK: Veins are not distended at 45 degrees. No evidence of adenopathy in the supra or infraclavicular areas. LUNGS: Some coarse wheezes diffusely. CARDIAC: Regular rhythm. I do not appreciate a gallop, no S3. ABDOMEN: Soft, protuberant. No evidence of hepatosplenomegaly. EXTREMITIES: No pedal edema, clubbing or cyanosis. NEUROLOGIC: Intact. No lateralizing signs. LABORATORY DATA: Bronchial washings and cultures pending. White count normal at 8900, H&H 9.3 and 30.5. Last CTA on 12/17/2017 shows diffuse bronchiectatic chronic changes with superimposed 1.4 cm irregular nodular consolidation in the lingula which may represent focal mucus plugging or infection. Debris in the trachea and main stem bronchi either representing exuberant secretions or aspirated material. 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 Cultures from bronchial washings have grown out on multiple occasions, Stenotrophomonas maltophilia as well as group B beta strep, Haemophilus influenza beta lactamase negative, corynebacterium Pseudodiphtheriticum, MSSA and Acinetobacter as well as Moraxella catarrhalis. OVERALL ASSESSMENT: A 58-year-old with severe chronic obstructive pulmonary disease/chronic bronchiectasis with chronic gram negative colonization with recurrent infection secondary to the usual organism Stenotrophomonas maltophilia as well as a history of polymicrobial infectionin the past, now with a subacute exacerbation. The patient will note that she requires vigorous pulmonary toilet that includes aerosolized bronchodilator consisting of levalbuterol and ipratropium. In addition, O2 supplementation to maintain sats greater than 90%. The patient will need to be restarted on her Trilogy or noninvasive positive pressure ventilation at night with O2 supplementation. A flutter valve and vibration vest would be helpful and would cover for gram negative tracheobronchial infection and repeat her CT scan to compare to 1 year ago would give us additional information. IV Solu-Medrol will be required as well with careful attention to glucose monitoring. Thank you very much for this consultation. ASHLEE
[2018-11-15] MEDS: LEVALBUTEROL 1.25MG/0.5ML NEB INH SCH ×4 (01:39→19:11)
[2018-11-15] MEDS: IPRATROPIUM BROMIDE NEB SOLN 0.02% 2.5 ML VIAL INH SCH ×4 (01:39→19:11)
[2018-11-15] MEDS: methylPREDNISolone 40 MG in SYRINGE 0 ML IV SCH ×3 (04:12→20:48)
[2018-11-15 06:06] LABS: Hematocrit (blood only) 29.2 % (37-47); Immature Granulocytes # (auto) 0.01 K/uL (0.00-0.02); Immature Granulocytes % (auto) 0.1 %; Lymphocytes # (auto) 0.49 K/uL (1.2-3.4); Lymphocytes % (auto) 6.2 %; Mean Corpuscular Hgb Conc 30.8 g/dL (32-36); Mean Corpuscular Volume 87.7 fL (80-100); Mean Platelet Volume 9.1 fL (7.4-10.4); Monocytes # (auto) 0.14 K/uL (0.11-0.59); Monocytes % (auto) 1.8 %; Neutrophils # (auto) 7.23 K/uL (1.4-6.5); Neutrophils % (auto) 91.9 %; Platelet Count 182 K/uL (130-400); RDW Coefficient of Variation 15.5 % (11.5-14.5); Red Blood Count 3.33 M/uL (4.2-5.4); White Blood Count 7.87 K/uL (4.8-10.8)
[2018-11-15 06:42] LABS: BUN Creatinine Ratio 23.1 (10-20); Calcium 9.1 mg/dl (8.5-10.1); Creatinine Clr Calc Pharmacy 88.8 ml/min; Est GFR (African American) 112.5; Est GFR (Non-African American) 97.1; Potassium 4.3 mmol/L (3.5-5.1)
[2018-11-15] MEDS: SERTRALINE HCL 50 MG TABLET PO SCH (08:28)
[2018-11-15] MEDS: PANTOprazole 40 MG TAB PO SCH (08:28)
[2018-11-15] MEDS: MAGNESIUM OXIDE 400 MG TAB PO SCH (08:28)
[2018-11-15] MEDS: CYANOCOBALAMIN 500 MCG TABLET (VITAMIN B-12) PO SCH (08:29)
[2018-11-15] MEDS: CALCIUM 600MG + VIT D 400 IU TAB PO SCH ×2 (08:29→20:49)
[2018-11-15] MEDS: METOPROLOL SUCC 50MG EXT REL TAB PO SCH (08:30)
[2018-11-15] MEDS: MULTIVITAMIN TAB PO SCH (08:30)
[2018-11-15] MEDS: INSULIN ASPART 100 UNITS/ML 3 ML PEN SC SCH ×4 (08:34→20:53)
[2018-11-15] MEDS ORDERED: HYDROCORTISONE 10 MG TAB PO SCH (09:00)
[2018-11-15] MEDS ORDERED: ENOXAPARIN INJ 40 MG/0.4 ML SYR SQ SCH (09:00)
[2018-11-15] MEDS: ASCORBIC ACID 500 MG TAB PO SCH (10:01)
[2018-11-15] MEDS: LEVOFLOXACIN/D5W 750 MG/150 ML BAG IV SCH (10:06)
[2018-11-15] MEDS: SODIUM CHLORIDE 0.9% 1000ML 500 ML IV SCH (11:05)
[2018-11-15] MEDS: ENOXAPARIN INJ 40 MG/0.4 ML SYR SQ SCH (11:43)
--- NOTE | 2018-11-15 11:45 | Pulmonology Progress Note ---
Date of Service November 15, 2018 Assessment & Plan (1) Bronchiectasis: Impression: 58-year-old female with extensive bronchiectatic changes. She underwent therapeutic bronchoscopy and was noted to have a low-grade fever and it was elected to pursue inpatient treatment for IV steroids and IV antibiotics. Recommendations: 1. Continue pulmonary toilet measures including flutter valve, percussive vest therapy. We will add hypertonic saline nebs to see if we can improve pulmonary clearance. 2. The patient appears to be suffering from an acute exacerbation and is currently day #2 levofloxacin as well as Solu-Medrol. Continue for now. She does not feel that she is ready to go home. Bronchiectasis type: with acute exacerbation Qualified Code(s): J47.1 - Bronchiectasis with (acute) exacerbation (2) BILL (obstructive sleep apnea): Plan: 1. Patient uses home AVAPS. Continue home therapy (3) COPD (chronic obstructive pulmonary disease): Plan: 1. Continue bronchodilators as well as steroids. COPD type: unspecified COPD Qualified Code(s): J44.9 - Chronic obstructive pulmonary disease, unspecified (4) CVID (common variable immunodeficiency): Plan: 1. Per allergy. She is scheduled to receive IVIG tomorrow. Unclear if this needs to be administered during this hospitalization. (5) Acute hypoxemic respiratory failure: Plan: 1. Secondary to bronchiectasis with exacerbation. Continue supplemental oxygen. She appears close to baseline requirements. Subjective Patient reports that she feels her breathing is better. She is coughing and using her pulmonary clearance devices. She does not report fevers or chills. She is tolerating a regular diet. Her oxygen requirement is at baseline. Review of Systems Review of Systems: Negative except as noted above Physical Exam Constitutional: WD/WN, vitals as above Neck: trachea midline, no thyromegaly Respiratory: Coarse bronchovesicular breath sounds bilaterally with occasional mid-to-late end expiratory wheezes at the bases Cardiovascular: RRR, no murmur, no edema Gastrointestinal (Abdomen): normal bowel sounds, soft, nontender, no hepatosplenomegaly Skin: no rashes, warm and dry Neurologic: Nonfocal exam Results & Data Vital Signs (Past 12 Hours) Vital Signs Temp Pulse Pulse Pulse Resp BP Pulse Ox 11/15/18 11:16 36.7 C 78 16 115/70 99 11/15/18 11:00 36.9 C 77 18 101/69 93 11/15/18 10:43 36.9 C 87 20 118/75 90 11/15/18 07:47 84 18 96 11/15/18 07:46 84 18 96 11/15/18 07:01 36.8 C 81 20 116/70 96 11/15/18 04:00 36.8 C 73 18 105/65 96 11/15/18 01:39 98 H 18 94 11/15/18 00:32 79 Laboratory Results 11/15/18 05:42 11/15/18 05:42 Microbiology 11/14/18 10:29 Blood Aerobic Blood Culture - Preliminary No growth in Aerobic bottle after 24 hours. 11/14/18 10:29 Blood Anaerobic Blood Culture - Preliminary No growth in Anaerobic bottle after 24 hours. 11/14/18 08:12 Bronch Washings Combined Acid Fast Bacilli Smear - Final 11/14/18 08:12 Bronch Washings Combined Fungal Smear - Final 11/14/18 08:12 Bronch Washings Combined Gram Stain - Final Moderate GPC's, Culture pending Diagnostic Findings Chest x-ray independently reviewed XR chest 1V portable HISTORY: 58 years-old Female Chronic Bronchiectasis COMPARISON: Chest CT 10/23/2018, chest radiograph 12/17/2017 TECHNIQUE: Portable AP view of the chest FINDINGS: Cardiomediastinal and hilar silhouettes are unchanged. Prior median sternotomy. Calcific plaque the thoracic aortic arch. Stable positioning of the right IJ Mkbjdq-n-Ppoy catheter. Right shoulder arthroplasty. Severe degenerative changes with remote deformity about the left humeral joint. Blunting of the costophrenic angles suggests trace pleural effusions. Extensive bilateral bronchiectasis with reticular opacities redemonstrated. Slightly progressed ill-defined opacities about the lateral right midlung and right lung base. IMPRESSION: 1. Extensive bilateral bronchiectasis with chronic reticular opacities redemonstrated. 2. Suggestion of trace pleural effusions with slightly progressed lateral right midlung and right lung base opacities suggestive of atelectasis or pneumonitis. The above report was generated using voice recognition software. It may contain grammatical, syntax or spelling errors. Electronically signed by: Lobo Yoo M.D. 11/14/2018 3:32 PM PG Care Time/CCT Total # of Minutes Spent Total Time Spent with Patient: Total time spent is greater than 50% in coordination of care (as documented) at patient's floor/unit and/or counseling patient: 29 minutes reviewing case and coordinating care
--- NOTE | 2018-11-15 15:17 | Hospitalist Progress Note ---
Date of Service November 15, 2018 Assessment & Plan (1) Bronchiectasis: Pt underwent bronchoscopy this morning on 10/[address] Lang - -Has exacerbation with acute bronchiectasis - Starting empiric IV levofloxacin while waiting on updated sputum studies - was treated with Bactrim for stenotrophomonas last month but pt does not feel this helped -Has been on IV solumedrol 40 mg Q8 hrs and nebulized bronchodilator - ATC nebs (levalbuterol/ipratropium) - Continue chronic O2 therapy - Pt may use own Trilogy machine -Appreciate pulmonary input and recommendation -Clinically a little bit better today but not yet ready to be discharged (2) CVID (common variable immunodeficiency): Follows with Jada Dorantes PA-C with allergy/immunology and receives monthly IVIG infusions - due for next infusion on 11/16/18 (3) COPD (chronic obstructive pulmonary disease): - Continue Breo which she takes at home and nebs as above -Has exacerbation -Has been on intravenous antibiotic, Solu-Medrol and bronchodilators with oxygen (4) Steroid-induced diabetes: Although pt has not been using insulin routinely at home or following a diabetic diet, suspect that BSGs while admitted will be elevated with steroid use - Diabetic diet - BSG ACHS - Insulin sliding scale - pt agreeable -Blood sugar will be monitored (5) BILL (obstructive sleep apnea): - Continue use of Trilogy as per home instructions -Continue home management (6) Depression: - Continue home sertraline (7) Mild pulmonary hypertension: (8) GERD (gastroesophageal reflux disease): - On pantoprazole 40 mg daily as outpatient - will continue (9) Chronic respiratory failure: On chronic O2 from 2-5L via NC - most recently has been requiring 4L due to episodes of hypoxia with exertion - Continue O2 while admitted and titrate to effect. -Does not require any more oxygen than before (10) Sinus tachycardia: Follows with cardiology as outpatient - thought to be multi-factorial but pt notes worsening recently - Continue Toprol XL 50 mg daily -Resolved (11) DVT prophylaxis: - Will use Lovenox 40 mg subQ daily - Encourage ambulation as tolerated - may need to consider PT/OT once respiratory status improves Subjective 11/15 The patient was seen and examined in medical floor She has bronchiectasis and is status post bronchoscopy yesterday She feels a little better but still has shortness of breath on minimal exertion associated with cough and yellowish phlegm Denies any chest pain, palpitation and/or hemoptysis Review of Systems Review of Systems: All systems reviewed and are unremarkable except as mentioned below Constitutional: + sweats and + fatigue; no fever, no chills and no anorexia Respiratory: + cough, + dyspnea on exertion and + wheezing; no hemoptysis Cardiovascular: + palpitations; no syncope, no edema and no calf pain Musculoskeletal: + back pain Neurologic: + headache(s); no falls, no tremor(s) and no syncope Psychiatric: History of depression and anxiety but currently well-controlled Endocrine: History of steroid-induced diabetes - has not recently used insulin at home Physical Exam Physical Exam: Mild distress at rest secondary to shortness of breath and cough Constitutional: WD/WN, vitals as above no acute distress Eyes: no conjunctival abnormality and no scleral abnormality ENMT: external ear and nose normal, oropharynx normal Neck: trachea midline Respiratory: + respiratory distress (Minimal distress at rest); does not use accessory muscles Auscultation: + diminished lung sounds, + rhonchi (throughout) and + wheezes (throughout) Cardiovascular: Rate/Rhythm: regular rate and regular rhythm Extremities: no calf tenderness and no pedal edema Gastrointestinal (Abdomen): Inspection/Auscultation: normal bowel sounds; abdomen not distended Percussion/Palpation: abdomen soft; abdomen nontender Musculoskeletal: Head/Neck/Chest: normocephalic, head atraumatic and neck supple Extremities: no cyanosis Skin: no rashes, warm and dry no jaundice Neurologic: moves all extremities; no focal motor deficits Speech / Cogn ition: normal speech Psychiatric: A+Ox3, euthymic affect Lymphatic: no cervical or axillary lymphadenopathy Results & Data Vital Signs (Past 12 Hours) Vital Signs Temp Pulse Pulse Resp BP BP Pulse Ox 11/15/18 13:50 83 18 95 11/15/18 11:55 36.8 C 82 20 118/76 90 11/15/18 11:16 36.7 C 78 16 115/70 99 11/15/18 11:00 36.9 C 77 18 101/69 93 11/15/18 10:43 36.9 C 87 20 118/75 90 11/15/18 07:47 84 18 96 11/15/18 07:46 84 18 96 11/15/18 07:01 36.8 C 81 20 116/70 96 11/15/18 04:00 36.8 C 73 18 105/65 96 Laboratory Results Short CBC 11/15/18 Range/Units 05:42 WBC 7.87 (4.8-10.8) K/uL Hgb 9.0 L (12.0-16.0) g/dL Hct 29.2 L (37-47) % Plt Count 182 (130-400) K/uL BMP 11/15/18 05:42 Sodium 135 L Potassium 4.3 Chloride 95 L Carbon Dioxide 36 H BUN 16 Creatinine 0.68 Glucose 253 H Calcium 9.1 Medications Administered Current Inpatient Medications Acetaminophen (Tylenol) 650 mg PO Q4H PRN PRN Reason: Pain or Fever Stop: 12/14/18 09:48 Ascorbic Acid (Vitamin C) 250 mg PO DAILY MARIANA Stop: 12/15/18 08:59 Last Admin: 11/15/18 10:01 Dose: 250 mg Documented by: Cyanocobalamin (Vitamin B-12) 1,000 mcg PO DAILY MARIANA Stop: 12/15/18 08:59 Last Admin: 11/15/18 08:29 Dose: 1,000 mcg Documented by: Dextrose (Dextrose 50%) 25 - 50 ml IV UD PRN; Protocol PRN Reason: Hypoglycemia Protocol Stop: 12/14/18 09:52 Enoxaparin Sodium (Lovenox) 40 mg SQ QAM MARIANA Stop: 12/15/18 11:29 Last Admin: 11/15/18 11:43 Dose: 40 mg Documented by: Folic Acid (Folvite) 1 mg PO QPM MARIANA Stop: 12/14/18 20:59 Last Admin: 11/14/18 20:44 Dose: 1 mg Documented by: Glucagon (Glucagen) 1 mg SQ UD PRN; Protocol PRN Reason: Hypoglycemia Protocol Stop: 12/14/18 09:52 Glucose (Glucose 40%) 15 - 30 gm PO UD PRN; Protocol PRN Reason: Hypoglycemia Protocol Stop: 12/14/18 09:52 Glucose (Dex4 Glucose) 4 - 8 tabs PO UD PRN; Protocol PRN Reason: Hypoglycemia Protocol Stop: 12/14/18 09:52 Guaifenesin (Mucinex) 1,200 mg PO Q12H PRN PRN Reason: Congestion Stop: 12/14/18 09:50 Heparin Sodium (Porcine) (Heparin Sod 100 Unit/Ml Flush) 5 ml IV PRN PRN PRN Reason: Flush Stop: 12/14/18 21:44 Last Admin: 11/15/18 11:44 Dose: 5 ml Documented by: Sodium Chloride (Nss 1000ml) 500 mls @ 15 mls/hr IV .Q24H [facility] Stop: 12/14/18 07:59 Last Admin: 11/15/18 11:05 Dose: Not Given Documented by: Levofloxacin/Dextrose (Levaquin/D5w) 750 mg in 150 mls @ 100 mls/hr IV Q24H [facility]; Protocol Stop: 11/21/18 09:59 Last Infusion: 11/15/18 11:52 Dose: Infused Documented by: Methylprednisolone 40 mg/ (Syringe) 0.64 mls @ 1.5 mls/min IV Q8H [facility] Stop: 12/14/18 11:59 Last Admin: 11/15/18 11:43 Dose: 1.5 mls/min Documented by: Insulin Aspart (Novolog Flexpen) 0 units SC ACHS [facility] Stop: 12/14/18 11:29 Last Admin: 11/15/18 12:07 Dose: 8 units Documented by: Ipratropium [place] (Atrovent 0.02% 0.5mg/2.5ml) 0.5 mg INH Q6R [facility] Stop: 12/14/18 13:59 Last Admin: 11/15/18 13:50 Dose: 0.5 mg Documented by: Lactobacillus Acidophilus (Floranex) 4 tab PO HS [facility] Stop: 12/14/18 20:59 Last Admin: 11/14/18 20:43 Dose: 4 tab Documented by: Levalbuterol HCl (Xopenex 1.25mg/0.5ml Neb) 1.25 mg INH Q6R [facility] Stop: 12/14/18 13:59 Last Admin: 11/15/18 13:50 Dose: 1.25 mg Documented by: Magnesium Oxide (Mag-Ox) 400 mg PO DAILY [facility] Stop: 12/15/18 08:59 Last Admin: 11/15/18 08:28 Dose: 400 mg Documented by: Metoprolol Succinate (Toprol Xl) 50 mg PO DAILY [facility] Stop: 12/15/18 08:59 Last Admin: 11/15/18 08:30 Dose: 50 mg Documented by: Miscellaneous (Order Awaiting Action) 1 ea N/A QS [facility] Stop: 12/14/18 15:59 Last Admin: 11/15/18 08:42 Dose: Not Given Documented by: Miscellaneous (Carbohydrates For Hypoglycemia) 15 - 30 gm PO UD PRN PRN Reason: Hypoglycemia Treatment Stop: 12/14/18 09:52 Multivitamins (Multivitamin Tab) 1 tab PO DAILY MARIANA Stop: 12/15/18 08:59 Last Admin: 11/15/18 08:30 Dose: 1 tab Documented by: Multivitamins/Minerals (Caltrate Plus) 1 tab PO BID [facility] Stop: 12/14/18 20:59 Last Admin: 11/15/18 08:29 Dose: 1 tab Documented by: Ondansetron HCl (Zofran) 4 mg IV Q6H PRN PRN Reason: Nausea Stop: 12/14/18 09:48 Pantoprazole Sodium (Protonix) 40 mg PO DAILY [facility] Stop: 12/15/18 08:59 Last Admin: 11/15/18 08:28 Dose: 40 mg Documented by: Polyethylene Glycol (Miralax Powder Packet) 17 gm PO DAILY PRN PRN Reason: Constipation Stop: 12/14/18 09:48 Sertraline HCl (Zoloft) 75 mg PO DAILY [facility] Stop: 12/15/18 08:59 Last Admin: 11/15/18 08:28 Dose: 75 mg Documented by: (1) Bronchiectasis Bronchiectasis type: with acute exacerbation Qualified Code(s): J47.1 - Bronchiectasis with (acute) exacerbation (2) COPD (chronic obstructive pulmonary disease) COPD type: unspecified COPD Qualified Code(s): J44.9 - Chronic obstructive pulmonary disease, unspecified (3) Depression Depression Type: unspecified Qualified Code(s): F32.9 - Major depressive disorder, single episode, unspecified (4) GERD (gastroesophageal reflux disease) Esophagitis presence: esophagitis presence not specified Qualified Code(s): K21.9 - Gastro-esophageal reflux disease without esophagitis (5) Chronic respiratory failure Respiratory failure complication: hypoxia Qualified Code(s): J96.11 - Chronic respiratory failure with hypoxia
[2018-11-15] MEDS: LACTOBACILLUS ACIDOPHILUS (FLORANEX) TAB PO SCH (20:49)
[2018-11-15] MEDS: FOLIC ACID 1 MG TAB PO SCH (20:49)
[2018-11-16] MEDS: LEVALBUTEROL 1.25MG/0.5ML NEB INH SCH ×3 (01:54→14:18)
[2018-11-16] MEDS: IPRATROPIUM BROMIDE NEB SOLN 0.02% 2.5 ML VIAL INH SCH ×3 (01:54→14:19)
[2018-11-16] MEDS: methylPREDNISolone 40 MG in SYRINGE 0 ML IV SCH ×2 (04:20→12:57)
[2018-11-16 06:01] LABS: Hematocrit (blood only) 29.1 % (37-47); Hemoglobin 8.9 g/dL (12.0-16.0); Immature Granulocytes # (auto) 0.01 K/uL (0.00-0.02); Immature Granulocytes % (auto) 0.1 %; Lymphocytes % (auto) 6.7 %; Mean Corpuscular Hgb Conc 30.6 g/dL (32-36); Mean Corpuscular Volume 86.1 fL (80-100); Mean Platelet Volume 9.2 fL (7.4-10.4); Monocytes # (auto) 0.22 K/uL (0.11-0.59); Monocytes % (auto) 2.5 %; Neutrophils # (auto) 8.12 K/uL (1.4-6.5); Neutrophils % (auto) 90.7 %; Platelet Count 194 K/uL (130-400); RDW Coefficient of Variation 15.7 % (11.5-14.5); RDW Standard Deviation 49.8 fL (36.4-46.3); Red Blood Count 3.38 M/uL (4.2-5.4); White Blood Count 8.95 K/uL (4.8-10.8)
[2018-11-16 06:33] LABS: BUN Creatinine Ratio 23.4 (10-20); Calcium 9.1 mg/dl (8.5-10.1); Creatinine Clr Calc Pharmacy 83.5 ml/min; Est GFR (Non-African American) 91.4; Potassium 4.6 mmol/L (3.5-5.1)
[2018-11-16] MEDS: ASCORBIC ACID 500 MG TAB PO SCH (08:27)
[2018-11-16] MEDS: SERTRALINE HCL 50 MG TABLET PO SCH (08:27)
[2018-11-16] MEDS: MAGNESIUM OXIDE 400 MG TAB PO SCH (08:27)
[2018-11-16] MEDS: CYANOCOBALAMIN 500 MCG TABLET (VITAMIN B-12) PO SCH (08:28)
[2018-11-16] MEDS: MULTIVITAMIN TAB PO SCH (08:28)
[2018-11-16] MEDS: PANTOprazole 40 MG TAB PO SCH (08:28)
[2018-11-16] MEDS: CALCIUM 600MG + VIT D 400 IU TAB PO SCH (08:28)
[2018-11-16] MEDS: METOPROLOL SUCC 50MG EXT REL TAB PO SCH (08:28)
[2018-11-16] MEDS: ENOXAPARIN INJ 40 MG/0.4 ML SYR SQ SCH (08:28)
[2018-11-16] MEDS: SODIUM CHLORIDE 0.9% 1000ML 500 ML IV SCH (08:30)
[2018-11-16] MEDS: INSULIN ASPART 100 UNITS/ML 3 ML PEN SC SCH ×2 (08:30→12:52)
[2018-11-16] MEDS: LEVOFLOXACIN/D5W 750 MG/150 ML BAG IV SCH (10:08)
--- NOTE | 2018-11-16 11:24 | Hospitalist Progress Note ---
Date of Service November 16, 2018 Assessment & Plan (1) Bronchiectasis: Pt underwent bronchoscopy this morning on 10/[address] Lang - -Has exacerbation with acute bronchiectasis - Starting empiric IV levofloxacin while waiting on updated sputum studies - was treated with Bactrim for stenotrophomonas last month but pt does not feel this helped -Has been on IV solumedrol 40 mg Q8 hrs and nebulized bronchodilator - ATC nebs (levalbuterol/ipratropium) - Continue chronic O2 therapy - Pt may use own Trilogy machine -Appreciate pulmonary input and recommendation -Bronchial washings Gram stain showed normal pavan, AFB stain negative but awaiting culture and fungal smear was negative -Blood cultures -negative -She is clinically not better and ready to go home -Await pulmonary evaluation today before discharge (2) CVID (common variable immunodeficiency): Follows with Jada Dorantes PA-C with allergy/immunology and receives monthly IVIG infusions - due for next infusion on 11/16/18 (3) COPD (chronic obstructive pulmonary disease): - Continue Breo which she takes at home and nebs as above -Has exacerbation -Has been on intravenous antibiotic, Solu-Medrol and bronchodilators with oxygen -Has been to her baseline (4) Steroid-induced diabetes: Although pt has not been using insulin routinely at home or following a diabetic diet, suspect that BSGs while admitted will be elevated with steroid use - Diabetic diet - BSG ACHS - Insulin sliding scale - pt agreeable -Blood sugar will be monitored -We will give nystatin for oral thrush (5) BILL (obstructive sleep apnea): - Continue use of Trilogy as per home instructions -Continue home management (6) Depression: - Continue home sertraline (7) Mild pulmonary hypertension: (8) GERD (gastroesophageal reflux disease): - On pantoprazole 40 mg daily as outpatient - will continue (9) Chronic respiratory failure: On chronic O2 from 2-5L via NC - most recently has been requiring 4L due to episodes of hypoxia with exertion - Continue O2 while admitted and titrate to effect. -Does not require any more oxygen than before (10) Sinus tachycardia: Follows with cardiology as outpatient - thought to be multi-factorial but pt notes worsening recently - Continue Toprol XL 50 mg daily -Resolved (11) DVT prophylaxis: - Will use Lovenox 40 mg subQ daily - Encourage ambulation as tolerated - may need to consider PT/OT once respiratory status improves Likely be discharged this afternoon Subjective 11/15 The patient was seen and examined in medical floor She has bronchiectasis and is status post bronchoscopy yesterday She feels a little better but still has shortness of breath on minimal exertion associated with cough and yellowish phlegm Denies any chest pain, palpitation and/or hemoptysis 11/16 The patient was seen and examined in medical unit She has been feeling a lot better today Complaints to have some oral thrush but no other symptoms Her breathing has been better and she has been ambulating well Review of Systems Review of Systems: All systems reviewed and are unremarkable except as mentioned below Constitutional: no fever, no chills and no anorexia Respiratory: + cough, + dyspnea on exertion (At her baseline) and + wheezing (Much improved); no hemoptysis Cardiovascular: + palpitations; no syncope, no edema and no calf pain Gastrointestinal: Oral thrush Musculoskeletal: + back pain Neurologic: + headache(s); no falls, no tremor(s) and no syncope Psychiatric: History of depression and anxiety but currently well-controlled Endocrine: History of steroid-induced diabetes - has not recently used insulin at home Physical Exam Physical Exam: No apparent distress at rest Constitutional: WD/WN, vitals as above no acute distress Eyes: no conjunctival abnormality and no scleral abnormality ENMT: external ear and nose normal, oropharynx normal Neck: trachea midline Respiratory: + respiratory distress (No respiratory distress at rest); does not use accessory muscles Auscultation: + diminished lung sounds, + rhonchi (throughout) and + wheezes (throughout) Cardiovascular: Rate/Rhythm: regular rate and regular rhythm Extremities: no calf tenderness and no pedal edema Gastrointestinal (Abdomen): Inspection/Auscultation: normal bowel sounds; abdomen not distended Percussion/Palpation: abdomen soft; abdomen nontender Musculoskeletal: Head/Neck/Chest: normocephalic, head atraumatic and neck supple Extremities: no cyanosis Skin: no rashes, warm and dry no jaundice Neurologic: moves all extremities; no focal motor deficits Speech / Cognition: normal speech Psychiatric: A+Ox3, euthymic affect Lymphatic: no cervical or axillary lymphadenopathy Results & Data Vital Signs (Past 12 Hours) Vital Signs Temp Pulse Pulse Resp BP Pulse Ox 11/16/18 07:09 36.7 C 82 20 104/66 94 11/16/18 07:06 82 18 94 11/16/18 03:59 36.7 C 85 18 99/60 L 94 11/16/18 01:54 93 H 16 97 11/16/18 01:13 84 Laboratory Results Short CBC 11/16/18 Range/Units 05:39 WBC 8.95 (4.8-10.8) K/uL Hgb 8.9 L (12.0-16.0) g/dL Hct 29.1 L (37-47) % Plt Count 194 (130-400) K/uL BMP 11/16/18 05:39 Sodium 138 Potassium 4.6 Chloride 99 Carbon Dioxide 36 H BUN 17 Creatinine 0.73 Glucose 176 H Calcium 9.1 Medications Administered Current Inpatient Medications Acetaminophen (Tylenol) 650 mg PO Q4H PRN PRN Reason: Pain or Fever Stop: 12/14/18 09:48 Last Admin: 11/15/18 20:48 Dose: 650 mg Documented by: Ascorbic Acid (Vitamin C) 250 mg PO DAILY MARIANA Stop: 12/15/18 08:59 Last Admin: 11/16/18 08:27 Dose: 250 mg Documented by: Cyanocobalamin (Vitamin B-12) 1,000 mcg PO DAILY MARIANA Stop: 12/15/18 08:59 Last Admin: 11/16/18 08:28 Dose: 1,000 mcg Documented by: Dextrose (Dextrose 50%) 25 - 50 ml IV UD PRN; Protocol PRN Reason: Hypoglycemia Protocol Stop: 12/14/18 09:52 Enoxaparin Sodium (Lovenox) 40 mg SQ QAM MARIANA Stop: 12/15/18 11:29 Last Admin: 11/16/18 08:28 Dose: 40 mg Documented by: Folic Acid (Folvite) 1 mg PO QPM MARIANA Stop: 12/14/18 20:59 Last Admin: 11/15/18 20:49 Dose: 1 mg Documented by: Glucagon (Glucagen) 1 mg SQ UD PRN; Protocol PRN Reason: Hypoglycemia Protocol Stop: 12/14/18 09:52 Glucose (Glucose 40%) 15 - 30 gm PO UD PRN; Protocol PRN Reason: Hypoglycemia Protocol Stop: 12/14/18 09:52 Glucose (Dex4 Glucose) 4 - 8 tabs PO UD PRN; Protocol PRN Reason: Hypoglycemia Protocol Stop: 12/14/18 09:52 Guaifenesin (Mucinex) 1,200 mg PO Q12H PRN PRN Reason: Congestion Stop: 12/14/18 09:50 Heparin Sodium (Porcine) (Heparin Sod 100 Unit/Ml Flush) 5 ml IV PRN PRN PRN Reason: Flush Stop: 12/14/18 21:44 Last Admin: 11/15/18 20:48 Dose: 5 ml Documented by: Sodium Chloride (Nss 1000ml) 500 mls @ 15 mls/hr IV .Q24H MARIANA Stop: 12/14/18 07:59 Last Admin: 11/16/18 08:30 Dose: Not Given Documented by: Levofloxacin/Dextrose (Levaquin/D5w) 750 mg in 150 mls @ 100 mls/hr IV Q24H MARIANA; Protocol Stop: 11/21/18 09:59 Last Admin: 11/16/18 10:08 Dose: 100 mls/hr Documented by: Methylprednisolone 40 mg/ (Syringe) 0.64 mls @ 1.5 mls/min IV Q8H [facility] Stop: 12/14/18 11:59 Last Admin: 11/16/18 04:20 Dose: 1.5 mls/min Documented by: Insulin Aspart (Novolog Flexpen) 0 units SC ACHS MARIANA Stop: 12/14/18 11:29 Last Admin: 11/16/18 08:30 Dose: 5 units Documented by: Ipratropium [place] (Atrovent 0.02% 0.5mg/2.5ml) 0.5 mg INH Q6R [facility] Stop: 12/14/18 13:59 Last Admin: 11/16/18 07:00 Dose: 0.5 mg Documented by: Lactobacillus Acidophilus (Floranex) 4 tab PO HS MARIANA Stop: 12/14/18 20:59 Last Admin: 11/15/18 20:49 Dose: 4 tab Documented by: Levalbuterol HCl (Xopenex 1.25mg/0.5ml Neb) 1.25 mg INH Q6R MARIANA Stop: 12/14/18 13:59 Last Admin: 11/16/18 07:00 Dose: 1.25 mg Documented by: Magnesium Oxide (Mag-Ox) 400 mg PO DAILY MARIANA Stop: 12/15/18 08:59 Last Admin: 11/16/18 08:27 Dose: 400 mg Documented by: Metoprolol Succinate (Toprol Xl) 50 mg PO DAILY MARIANA Stop: 12/15/18 08:59 Last Admin: 11/16/18 08:28 Dose: 50 mg Documented by: Miscellaneous (Order Awaiting Action) 1 ea N/A QS MARIANA Stop: 12/14/18 15:59 Last Admin: 11/16/18 08:30 Dose: Not Given Documented by: Miscellaneous (Carbohydrates For Hypoglycemia) 15 - 30 gm PO UD PRN PRN Reason: Hypoglycemia Treatment Stop: 12/14/18 09:52 Multivitamins (Multivitamin Tab) 1 tab PO DAILY MARIANA Stop: 12/15/18 08:59 Last Admin: 11/16/18 08:28 Dose: 1 tab Documented by: Multivitamins/Minerals (Caltrate Plus) 1 tab PO BID MARIANA Stop: 12/14/18 20:59 Last Admin: 11/16/18 08:28 Dose: 1 tab Documented by: Nystatin (Mycostatin) 10 ml PO QID MARIANA Stop: 11/26/18 12:59 Ondansetron HCl (Zofran) 4 mg IV Q6H PRN PRN Reason: Nausea Stop: 12/14/18 09:48 Pantoprazole Sodium (Protonix) 40 mg PO DAILY MARIANA Stop: 12/15/18 08:59 Last Admin: 11/16/18 08:28 Dose: 40 mg Documented by: Polyethylene Glycol (Miralax Powder Packet) 17 gm PO DAILY PRN PRN Reason: Constipation Stop: 12/14/18 09:48 Sertraline HCl (Zoloft) 75 mg PO DAILY MARIANA Stop: 12/15/18 08:59 Last Admin: 11/16/18 08:27 Dose: 75 mg Documented by: (1) Bronchiectasis Bronchiectasis type: with acute exacerbation Qualified Code(s): J47.1 - Bronchiectasis with (acute) exacerbation (2) COPD (chronic obstructive pulmonary disease) COPD type: unspecified COPD Qualified Code(s): J44.9 - Chronic obstructive pulmonary disease, unspecified (3) Depression Depression Type: unspecified Qualified Code(s): F32.9 - Major depressive disorder, single episode, unspecified (4) GERD (gastroesophageal reflux disease) Esophagitis presence: esophagitis presence not specified Qualified Code(s): K21.9 - Gastro-esophageal reflux disease without esophagitis (5) Chronic respiratory failure Respiratory failure complication: hypoxia Qualified Code(s): J96.11 - Chronic respiratory failure with hypoxia
[2018-11-16] MEDS ORDERED: NYSTATIN SUSP 500,000 U/5 ML UDC PO SCH (13:00)
--- NOTE | 2018-11-16 13:37 | Pulmonology Progress Note ---
Date of Service November 16, 2018 Assessment & Plan (1) Bronchiectasis: Impression: 58-year-old female with extensive bronchiectatic changes. She underwent therapeutic bronchoscopy and was noted to have a low-grade fever and it was elected to pursue inpatient treatment for IV steroids and IV antibiotics. Recommendations: 1. Continue pulmonary toilet measures including flutter valve, percussive vest therapy. 2. Patient is doing well clinically and states that she feels at her baseline. At this point time it seems reasonable to discharge her on oral levofloxacin as well as prednisone 20 mg a day. Would continue the levofloxacin for 14 days until she can follow-up with Dr. Lang. Prednisone can be prescribed for 5 days total. The patient has follow-up scheduled with the pulmonary clinic early next week. Bronchiectasis type: with acute exacerbation Qualified Code(s): J47.1 - Bronchiectasis with (acute) exacerbation (2) BILL (obstructive sleep apnea): Plan: 1. Patient uses home AVAPS. Continue home therapy (3) COPD (chronic obstructive pulmonary disease): Plan: 1. Continue bronchodilators COPD type: unspecified COPD Qualified Code(s): J44.9 - Chronic obstructive pulmonary disease, unspecified (4) CVID (common variable immunodeficiency): Plan: 1. IVIG per allergy (5) Acute hypoxemic respiratory failure: Plan: 1. Secondary to bronchiectasis with exacerbation. Continue supplemental oxygen. She appears close to baseline requirements. Subjective Patient reports that she feels that her pulmonary baseline. She is using her outpatient pulmonary clearance techniques. She reports her sputum is whitish to yellowish. No hemoptysis. No fevers chills or sweats. No chest pain or palpitations. No significant lower extremity edema. She is tolerating a diet and ambulating. Review of Systems Review of Systems: Negative except as noted above Physical Exam Constitutional: WD/WN, vitals as above Neck: trachea midline, no thyromegaly Cardiovascular: RRR, no murmur, no edema Gastrointestinal (Abdomen): normal bowel sounds, soft, nontender, no hepatosplenomegaly Skin: no rashes, warm and dry Results & Data Vital Signs (Past 12 Hours) Vital Signs Temp Pulse Resp BP Pulse Ox 11/16/18 11:33 36.7 C 92 H 22 123/76 95 11/16/18 11:31 36.7 C 92 H 22 123/76 95 11/16/18 07:09 36.7 C 82 20 104/66 94 11/16/18 07:06 82 18 94 11/16/18 03:59 36.7 C 85 18 99/60 L 94 11/16/18 01:54 93 H 16 97 Laboratory Results 11/16/18 05:39 11/16/18 05:39 Microbiology 11/14/18 11:00 Blood Aerobic Blood Culture - Preliminary No growth in Aerobic bottle after 48 hours. 11/14/18 11:00 Blood Anaerobic Blood Culture - Preliminary No growth in Anaerobic bottle after 48 hours. 11/14/18 10:29 Blood Aerobic Blood Culture - Preliminary No growth in Aerobic bottle after 48 hours. 11/14/18 10:29 Blood Anaerobic Blood Culture - Preliminary No growth in Anaerobic bottle after 48 hours. 11/14/18 08:12 Bronch Washings Combined Gram Stain - Final 11/14/18 08:12 Bronch Washings Combined Bronchoalveolar Lavage Culture - Final Moderate normal pavan. 11/14/18 08:12 Bronch Washings Combined Acid Fast Bacilli Smear - Final 11/14/18 08:12 Bronch Washings Combined Fungal Smear - Final PG Care Time/CCT Total # of Minutes Spent Total Time Spent with Patient: Total time spent is greater than 50% in coordination of care (as documented) at patient's floor/unit and/or counseling patient:
--- NOTE | 2018-11-17 08:22 | Discharge Summary ---
Date of Service November 17, 2018 Admission HPI Per Admitting Provider This is a 58 y/o female with a PMH of bronchiectasis, CVID receiving IVIG therapy monthly, severe COPD, chronic respiratory failure (on 2-5 L of O2 and trilogy at night), pulmonary HTN, DM2, and adrenal insufficiency who is being admitted for observation post-bronchoscopy. Pt was recently admitted to [facility] from 10/22/18-10/27/18 with acute exacerbation of bronchiectasis secondary to stenotrophomonas. Pt was treated with a two week course of Bactrim but pt was only able to take 1 tab BID rather than the 2 tab BID that was prescribed as she noted significant GI distress with the higher doses. Finished this on 11/09/18. Pt follows with Dr. Lang for pulmonology. She was seen for f/u on 10/30/18 and was still not feeling well. Prednisone taper was added and pt scheduled for bronchoscopy. Today, she underwent procedure and was noted to have a mucoid impaction and post-procedure to be tachycardic with low-grade temperature elevation so we were consulted to admit patient for observation. Cultures were collected during procedure and are pending. Pt has a history of various multi- drug resistant infections previously. Has followed with Dr. Adamson in the past. Patient reports that she has been worsening since she finished the prednisone taper from pulmonology. In particular, her O2 sats have been dropping with walking around to the 70s. She has been using the Trilogy to recover more quickly when her O2 sats dropped. Notes increased cough that is productive of yellow-green mucus but denies hemoptysis. +night sweats but denies fevers or chills. Denies chest pain but has noted pain in the left upper thoracic area. Also c/o posterior headaches that are worse during episodes of hypoxia. Has been limiting her use of inhalers and nebs due to episodes of tachycardia to a HR of 130s. Appetite has been good but notes increased fatigue. Admission Exam Per Admitting Provider Review of Systems: All systems reviewed & are unremarkable except as noted in HPI & below Constitutional: + sweats and + fatigue; no fever, no chills and no anorexia Eyes: no diplopia Ear, Nose, Mouth, Throat: no sore throat and no dysphagia Respiratory: as per Subjective / HPI Cardiovascular: + palpitations; no syncope, no edema and no calf pain Gastrointestinal: no abdominal pain, no nausea, no vomiting and no diarrhea/loose stools Genitourinary: no dysuria, no urinary frequency and no hematuria Musculoskeletal: + back pain Integumentary: no rash and no non-healing lesions Neurologic: + headache(s); no falls, no tremor(s) and no syncope Psychiatric: History of depression and anxiety but currently well-controlled Endocrine: History of steroid-induced diabetes - has not recently used insulin at home Principal Diagnosis Chronic Bronchiectasis w mucoid impaction status post bronchoscopy Discharge Exam Constitutional WD/WN, vitals as above no acute distress Eyes no conjunctival abnormality and no scleral abnormality ENMT external ear and nose normal, oropharynx normal Neck trachea midline Respiratory + respiratory distress (No respiratory distress at rest); does not use accessory muscles Auscultation: + diminished lung sounds, + rhonchi (throughout) and + wheezes (throughout) Cardiovascular Rate/Rhythm: regular rate and regular rhythm Extremities: no calf tenderness and no pedal edema Gastrointestinal (Abdomen) Inspection/Auscultation: normal bowel sounds; abdomen not distended Percussion/Palpation: abdomen soft; abdomen nontender Musculoskeletal Head/Neck/Chest: normocephalic, head atraumatic and neck supple Extremities: no cyanosis Skin no rashes, warm and dry no jaundice Neurologic moves all extremities; no focal motor deficits Speech / Cognition: normal speech Psychiatric A+Ox3, euthymic affect Lymphatic no cervical or axillary lymphadenopathy Discharge Data Allergies Allergy/AdvReac Type Severity Reaction Status Date / Time albuterol AdvReac Mild CHEST Verified 11/14/18 07:18 PAIN, LEVALBUTEROL OK oxycodone AdvReac Mild CAUSES Verified 11/14/18 07:18 DEPRESSION Consultations 11/14/18 08:45 Consult Hospitalist Routine 11/14/18 09:47 Consult Pulmonology Routine 11/14/18 09:51 Consult Case Management - Discharge Planning Routine Procedures Performed Operation Date: 11/14/18 07:00 Actual Procedures p Bronchoscopy Radiology(Bilateral) - Jorge Lang MD Hospital Course (1) Bronchiectasis: Pt underwent bronchoscopy this morning on 10/[address] Lang - -Has exacerbation with acute bronchiectasis - Starting empiric IV levofloxacin while waiting on updated sputum studies - was treated with Bactrim for stenotrophomonas last month but pt does not feel this helped -Has been on IV solumedrol 40 mg Q8 hrs and nebulized bronchodilator - ATC nebs (levalbuterol/ipratropium) - Continue chronic O2 therapy - Pt may use own Trilogy machine -Appreciate pulmonary input and recommendation -Bronchial washings Gram stain showed normal pavan, AFB stain negative but awaiting culture and fungal smear was negative -Blood cultures -negative -She is clinically not better and ready to go home -Await pulmonary evaluation today before discharge (2) CVID (common variable immunodeficiency): Follows with Jada Dorantes PA-C with allergy/immunology and receives monthly IVIG infusions - due for next infusion on 11/16/18 (3) COPD (chronic obstructive pulmonary disease): - Continue Breo which she takes at home and nebs as above -Has exacerbation -Has been on intravenous antibiotic, Solu-Medrol and bronchodilators with oxygen -Has been to her baseline (4) Steroid-induced diabetes: Although pt has not been using insulin routinely at home or following a di abetic diet, suspect that BSGs while admitted will be elevated with steroid use - Diabetic diet - BSG ACHS - Insulin sliding scale - pt agreeable -Blood sugar will be monitored -We will give nystatin for oral thrush (5) BILL (obstructive sleep apnea): - Continue use of Trilogy as per home instructions -Continue home management (6) Depression: - Continue home sertraline (7) Mild pulmonary hypertension: (8) GERD (gastroesophageal reflux disease): - On pantoprazole 40 mg daily as outpatient - will continue (9) Chronic respiratory failure: On chronic O2 from 2-5L via NC - most recently has been requiring 4L due to episodes of hypoxia with exertion - Continue O2 while admitted and titrate to effect. -Does not require any more oxygen than before (10) Sinus tachycardia: Follows with cardiology as outpatient - thought to be multi-factorial but pt notes worsening recently - Continue Toprol XL 50 mg daily -Resolved (11) DVT prophylaxis: - Will use Lovenox 40 mg subQ daily - Encourage ambulation as tolerated - may need to consider PT/OT once respiratory status improves Likely be discharged this afternoon Total Time Total Time Spent Total Time Spent (In Minutes): 35 minutes Total Time Includes: Examination of the Patient, Discharge Planning, Medication Reconciliation and Communication With Other Providers Discharge Plan Discharge Items Patient Disposition: Home - Self-Care Reason For Visit: BRONCHIECTASIS Discharge Diagnosis: Chronic Bronchiectasis w mucoid impaction status post bronchoscopy Condition: Good Discharge Goals: Diagnostic testing Activity: Resume your previous activity Lifting: Gradually increase as tolerated Bathing: No limitations Sexual Activity: When tolerated Exercise/Sports: Gradually increase as tolerated Driving/Machine Use: Resume 1 day after discharge Non-emergency contact: Primary Care Provider Call non-emergency contact if: you have any medication questions, your symptoms worsen and your temperature is above 101 Follow-up/Referrals: Ivonne Subramanian CRNP [Primary Care Provider] - 11/23/18 10:55 am (Please keep appointment with Dr. Lang's office) Diet: Carb Consistent or DM2 Addtl Provider Instructions: New medications: Levofloxacin 750 mg daily for next 10 days, continue probiotics Prednisone 20 mg daily for 5 days and Nystatin 10 mL's 4 times daily for 7 days Try to avoid any other stressors/stimulants for lung problem as discussed Prescriptions: New nystatin 100,000 unit/mL Suspension 10 ml PO QID 7 Days Qty: 280 RF: 0 levofloxacin [Levaquin] 750 mg tablet 750 mg PO DAILY 10 Days Qty: 10 RF: 0 prednisone 20 mg tablet 20 mg PO DAILY Qty: 5 RF: 0 Continued Novolog Flexpen U-100 Insulin 100 unit/mL Insulin Pen See Rx Instructions .ROUTE .COMPLEX RF: 0 Breo Ellipta 100-25 mcg/dose Blister With Device 1 inh INHALATION DAILY RF: 0 metoprolol succinate 50 mg tablet extended release 24 hr 50 mg PO DAILY RF: 0 pantoprazole 40 mg tablet,delayed release (DR/EC) 40 mg PO DAILY RF: 0 hydrocortisone 5 mg tablet 10 mg PO QAM RF: 0 hydrocortisone 5 mg tablet 2.5 mg PO HS RF: 0 cyanocobalamin (vitamin B-12) 1,000 mcg Tablet 1,000 mcg PO DAILY RF: 0 ascorbic acid (vitamin C) 250 mg Tablet 250 mg PO DAILY RF: 0 sertraline 50 mg Tablet 75 mg PO DAILY RF: 0 Caltrate 600-D Plus Minerals 600 mg calcium- 800 unit-50 mg Tablet 1 tab PO BID RF: 0 multivitamin Tablet 1 tab PO DAILY RF: 0 magnesium oxide 400 mg (241.3 mg magnesium) Tablet 400 mg PO DAILY RF: 0 folic acid 1 mg Tablet 1 mg PO QPM RF: 0 guaifenesin 1,200 mg Tablet Extended Release 12hr 1,200 mg PO Q12H PRN (Reason: Congestion) RF: 0 Probiotic 3 billion cell Tablet,Chewable 1 tab PO QPM RF: 0 Gammagard Liquid 10 % Solution IV MONTHLY RF: 0 acetaminophen 500 mg Tablet 1,000 mg PO Q6H PRN (Reason: Pain) RF: 0 Stand-Alone Forms: [facility] Discharge Orders: Discharge Order (Routine); Ordered 11/16/18 Ordered By: Leon Elkins Admission Data Admit Date/Time: 11/14/18 09:25 Attending Provider: Leon Elkins Admit Provider: Emiliana Calderon Primary Care Provider: Ivonne Subramanian Other Providers: Daisy Whitney Jeffrey A. ; Leon Elkins Service: Telemetry Medical Other Interventions: Discharge Summary Assessment (RN) Last Done: 11/16/18 15:23 Pending Studies at Discharge: No DC Date/Time DO NOT enter until pt leaves facility: 11/16/18 15:40
[2018-11-17] MEDS ORDERED: levoFLOXacin 750 MG TAB PO SCH (11:00)
== END 2018-11-16 15:40 | disposition home or self-care (01) ==
LOC: 2W 06:51 → ASU 06:51 → SUATTDRO 09:25 → 2W 13:18

== ENCOUNTER 2018-11-30 15:27 | Inpatient (IN) ==
[2018-11-30] MEDS ORDERED: CEFEPIME 2,000 MG/20 ML VIAL IV STA (15:51)
[2018-11-30] MEDS ORDERED: LEVALBUTEROL HCL 1.25 MG/3 ML NEB NEB STA (15:51)
[2018-11-30] MEDS ORDERED: methylPREDNISolone 125 MG/2 ML VIAL IV STA (15:51)
[2018-11-30] MEDS ORDERED: ACETAMINOPHEN 1,000 MG/100 ML VIAL IV STA (15:59)
[2018-11-30 16:03] LABS: Basophils # (auto) 0.02 K/uL (0-0.2); Basophils % (auto) 0.2 %; Eosinophils # (auto) 0.11 K/uL (0-0.5); Hemoglobin 10.1 g/dL (12.0-16.0); Immature Granulocytes # (auto) 0.03 K/uL (0.00-0.02); Immature Granulocytes % (auto) 0.3 %; Lymphocytes % (auto) 10.3 %; Mean Corpuscular Hemoglobin 27.1 pg (25-34); Mean Corpuscular Hgb Conc 31.6 g/dL (32-36); Mean Corpuscular Volume 85.8 fL (80-100); Mean Platelet Volume 8.3 fL (7.4-10.4); Monocytes # (auto) 0.39 K/uL (0.11-0.59); Monocytes % (auto) 3.7 %; Neutrophils # (auto) 8.99 K/uL (1.4-6.5); Neutrophils % (auto) 84.5 %; Platelet Count 209 K/uL (130-400); RDW Coefficient of Variation 15.7 % (11.5-14.5); RDW Standard Deviation 49.4 fL (36.4-46.3); Red Blood Count 3.73 M/uL (4.2-5.4); White Blood Count 10.64 K/uL (4.8-10.8)
[2018-11-30] MEDS ORDERED: SODIUM CHLORIDE 0.9% 1000ML 500 ML IV ONE (16:06)
--- NOTE | 2018-11-30 16:09 | XRay Report ---
XR chest 1V portable CLINICAL HISTORY: sob dyspnea COMPARISON STUDY: 12/01/1999 1910 exam FINDINGS: Diffuse bilateral parenchymal interstitial and infiltrative-type changes. No significant ch joseph from the prior exam. Central catheter in superior vena cava. Mild stable cardiomegaly. IMPRESSION: Stable diffuse bilateral parenchymal infiltrative and interstitial change. The above report was generated using voice recognition software. It may contain grammatical, syntax or spelling errors. Electronically signed by: Santosh Diaz M.D. 11/30/2018 4:08 PM
[2018-11-30 16:10] LABS: Alanine Aminotransferase 13 U/L (12-78); Albumin Level 2.9 gm/dl (3.4-5.0); Aspartate Aminotransferase 13 U/L (15-37); BUN Creatinine Ratio 20.6 (10-20); Blood Urea Nitrogen 12 mg/dl (7-18); Calcium 9.2 mg/dl (8.5-10.1); Carbon Dioxide 34 mmol/L (21-32); Chloride 96 mmol/L (98-107); Creatinine Clr Calc Pharmacy 102.6 ml/min; Est GFR (African American) 118.6; Est GFR (Non-African American) 102.3; Glucose 99 mg/dl (70-99); Magnesium 2.2 mg/dl (1.8-2.4); Potassium 4.2 mmol/L (3.5-5.1); Sodium 136 mmol/L (136-145)
[2018-11-30 16:15] LABS: Albumin Globulin Ratio 0.5 (0.9-2); Alkaline Phosphatase 86 U/L (45-117); Bilirubin,Total 0.4 mg/dl (0.2-1); Globulin 5.5 gm/dl (2.5-4.0); Total Protein 8.4 gm/dl (6.4-8.2); Troponin I < 0.015 ng/ml (0-0.045)
[2018-11-30 16:17] LABS: Partial Thromboplastin Ratio 1.2; Prothrombin Time 10.2 Seconds (9.0-12.0)
[2018-11-30] MEDS ORDERED: OPTIRAY 320 125ml IV PRN (17:08)
--- NOTE | 2018-11-30 17:15 | Emergency Department Note ---
Entered by Netta Perrin acting as a scribe for Ja Pedraza MD History of Present Illness General Chief complaint: Shortness of Breath/Dyspnea Time Seen by Provider: 11/30/18 15:36 Source: patient Mode of arrival: EMS Limitations: no limitations History of Present Illness Onset (ago): day(s) 1 Location: chest Radiation: non-radiation Pain Consistency: + constant Maximum Pain Intensity: 4 Current Pain Intensity: 4 Relieved By: + other (Oxygen, inhaler) Associated symptoms: + chest pain and + cough Treatments prior to arrival: other (Oxygen, inhaler) The patient is a 58 year old male who presents to the ED with complaints of shortness of breath. She was brought to the ED via EMS. She was referred from [facility] Pul[facility] office to the ED for worsening breathing issues after requiring 5L NC to maintain her O2 saturation. She normally requires 2.5L. The patient states she felt "perfectly fine" last night until she got up to go to the kitchen, when she experienced a "sharp pain" in her lungs while trying to breathe. She has not taken any medication for the pain today, but last night did take Tylenol. She rates her discomfort as a 4/10 in severity. She finished a course of Levaquin for a recent illness and also finished a Prednisone taper. She was discharged from the hospital on November 17 after undergoing a bronchoscopy. She was placed on Levaquin and a Prednisone taper during that visit. She denies any history of PE or DVT. She uses a Ventolin inhaler at home but notes she is out of her nebulizer treatments. She has been coughing more than normal and states her cough is productive. She does admit to a history of previous pneumonia. Her PCP is Ivonne Subramanian at [facility] and her Cement Worker is Addy Yen PA-C with [facility]. Home Medications Home Medications Medication Instructions Recorded Confirmed Type Caltrate 600-D Plus Minerals 1 tab PO BID 12/17/17 11/30/18 History Gammagard Liquid 0 mg/kg IV MONTHLY 12/17/17 11/30/18 History Probiotic 1 tab PO QPM 12/17/17 11/30/18 History acetaminophen 1,000 mg PO Q6H PRN 12/17/17 11/30/18 History ascorbic acid (vitamin C) 250 mg PO DAILY 12/17/17 11/30/18 History cyanocobalamin (vitamin B-12) 1,000 mcg PO DAILY 12/17/17 11/30/18 History folic acid 1 mg PO QPM 12/17/17 11/30/18 History guaifenesin 1,200 mg PO Q12H PRN 12/17/17 11/30/18 History hydrocortisone 2.5 mg PO HS 12/17/17 11/30/18 History hydrocortisone 10 mg PO QAM 12/17/17 11/30/18 History magnesium oxide 400 mg PO DAILY 12/17/17 11/30/18 History multivitamin 1 tab PO DAILY 12/17/17 11/30/18 History pantoprazole 40 mg PO DAILY 12/17/17 11/30/18 History sertraline 75 mg PO DAILY 12/17/17 11/30/18 History Breo Ellipta 1 inh INHALATION DAILY 04/21/18 11/30/18 History Novolog Flexpen U-100 Insulin See Rx Instructions .ROUTE .COMPLEX 04/21/18 11/30/18 History metoprolol succinate 50 mg PO DAILY 11/14/18 11/30/18 History albuterol sulfate HFA 90 2 puff INHALATION Q4 PRN gm 11/24/18 11/30/18 History mcg/actuation aerosol inhaler ipratropium bromide 0.02 % 2.5 ml INH Q4H PRN #150 ml 11/24/18 11/30/18 Rx solution for inhalation levalbuterol 1.25 mg/3 mL solution 1.25 mg INH Q4H PRN #90 ml 11/24/18 11/30/18 Rx for nebulization ipratropium-albuterol 3 ml INHALATION QID 11/30/18 11/30/18 History Allergies Allergy/AdvReac Type Severity Reaction Status Date / Time albuterol AdvReac Mild CHEST Verified 11/30/18 14:39 PAIN, LEVALBUTEROL OK oxycodone AdvReac Mild CAUSES Verified 11/30/18 14:39 DEPRESSION Past Med/Surg History Medical History CVID (common variable immunodeficiency) (Chronic) Receives monthly IVIG infusions COPD (chronic obstructive pulmonary disease) (Chronic) Pneumomediastinum (Resolved) Pneumothorax (Resolved) Oxygen dependent (Chronic) "2L-4L" On 04/29/17 18:15 Maine Martínez wrote "4L" On 04/08/15 18:56 Adriana Morales wrote "2L" Steroid-induced diabetes (Chronic) BILL (obstructive sleep apnea) (Chronic) Depression (Chronic) Mild pulmonary hypertension (Chronic) 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) Anxiety (Chronic) Bronchiectasis (Chronic) GERD (gastroesophageal reflux disease) (Chronic) Hypogammaglobulinemia (Chronic) Hyperlipidemia (Chronic) Chronic respiratory failure (Chronic) Depression Hypogammaglobulinemia Surgical History History of myringotomy (Resolved) Hx of tympanostomy tubes (Resolved) S/P tonsillectomy and adenoidectomy (Resolved) History of hysterectomy (Resolved) S/P sinus surgery (Resolved) H/O atrial septal defect repair (Resolved) Hx of appendectomy (Resolved) Hx of cholecystectomy (Resolved) S/P section (Chronic) H/O total shoulder replacement (Resolved) History of right hip replacement (Resolved) History of left hip replacement (Chronic) Family History Father Aneurysm of abdominal aorta Mother Cervical ca Cancer Social History Preferred Language: Slovenian Communication Ability: Effective Medical Research Scientist Required: No Beliefs That Will Affect Care: None marital status: Current Living Situation: Alone current occupational status: disabled Other Information That Helps Us Care for You: No Feels Safe at Home: Yes Safety Concerns: Feels Safe At This Time Smoking Status: Never smoker Second Hand Exposure: No ; Hx Alcohol Use: No Hx Substance Use: No Review of Systems See HPI for pertinent positives & negatives. and A total of 10 systems reviewed and were otherwise negative Physical Exam Vital Signs Vital Signs - 24 hr 11/30/18 15:33 11/30/18 15:36 11/30/18 15:45 Temperature 37.4 C Temperature Source Oral Sepsis Recent Fever Within 48 Hours No Sepsis Action Taken by Nursing No Action Required Pulse Rate 117 H 116 H 115 H Pulse Rate [Right Radial] Pulse Rate from SpO2 Sensor 117 H 115 H Respiratory Rate 40 H 30 H 20 Respiratory Effort / Characteristics Blood Pressure 142/88 H 142/88 H Blood Pressure Mean 106 106 Pulse Oximetry 94 94 94 Oxygen Delivery Method Nasal Cannula Oxygen Flow Rate 5 11/30/18 16:00 11/30/18 16:04 11/30/18 16:10 Temperature Temperature Source Sepsis Recent Fever Within 48 Hours Sepsis Action Taken by Nursing Pulse Rate 125 H Pulse Rate [Right Radial] 118 H Pulse Rate from SpO2 Sensor 125 H Respiratory Rate 27 H 18 Respiratory Effort / Characteristics Non-Labored Spontaneous Blood Pressure Blood Pressure Mean Pulse Oximetry 94 92 93 Oxygen Delivery Method Nasal Cannula Nasal Cannula Oxygen Flow Rate 5 5 11/30/18 16:21 11/30/18 16:30 11/30/18 16:35 Temperature Temperature Source Sepsis Recent Fever Within 48 Hours Sepsis Action Taken by Nursing Pulse Rate 115 H 112 H Pulse Rate [Right Radial] Pulse Rate from SpO2 Sensor 116 H 114 H Respiratory Rate 28 H 20 Respiratory Effort / Characteristics Blood Pressure 119/67 Blood Pressure Mean 84 Pulse Oximetry 93 91 90 Oxygen Delivery Method Nasal Cannula Nasal Cannula Oxygen Flow Rate 5 5 11/30/18 17:00 11/30/18 17:01 11/30/18 17:30 Temperature Temperature Source Sepsis Recent Fever Within 48 Hours Sepsis Action Taken by Nursing Pulse Rate 103 H 103 H 116 H Pulse Rate [Right Radial] Pulse Rate from SpO2 Sensor 104 H 104 H Respiratory Rate 25 H 26 H 21 Respiratory Effort / Characteristics Blood Pressure 128/78 Blood Pressure Mean 94 Pulse Oximetry 94 95 Oxygen Delivery Method Nasal Cannula Oxygen Flow Rate 5 11/30/18 18:00 11/30/18 18:30 Temperature Temperature Source Sepsis Recent Fever Within 48 Hours Sepsis Action Taken by Nursing Pulse Rate 115 H 102 H Pulse Rate [Right Radial] Pulse Rate from SpO2 Sensor 115 H 104 H Respiratory Rate 26 H 20 Respiratory Effort / Characteristics Blood Pressure Blood Pressure Mean Pulse Oximetry 90 96 Oxygen Delivery Method Nasal Cannula Nasal Cannula Oxygen Flow Rate 4 4 GENERAL: Patient is in mild respiratory distress. HEENT: No acute trauma, normocephalic atraumatic, mucous membranes moist, no nasal congestion, no scleral icterus. NECK: No stridor, no adenopathy, no meningismus, trachea is midline. LUNGS: Patient has rhonchi and wheezing bilaterally, increased respiratory rate, some mild respiratory distress, speaks in shorter sentences. HEART: Tachycardic with a regular rhythm, no murmurs. ABDOMEN: Soft, nontender, bowel sounds positive, no hernias, no peritonitis. EXTREMITIES: No cyanosis or edema, full range of motion of all the joints without pain or difficulty, no signs for acute trauma. NEUROLOGIC: Oriented x 3, no acute motor or sensory deficits, no focal weakness. SKIN: No rash, no jaundice, no diaphoresis. Course 1548: The patient was evaluated in room B6 and a complete history and physical were performed. 170: I reevaluated the patient. She is resting comfortably and is on her way to CT scan. 174: I reevaluated the patient. She is resting comfortably. I discussed her results and my recommendation she remain in the hospital for further evaluation and management and she verbalized complete understanding and agreement. 174: I discussed the patients case with Krist[facility] Carver [facility]-C, [facility] The patient will be further evaluated. Consultations Consultation #1: I discussed the patients case [facility]. The patient will be further evaluated. Time: 17:44 Administered Medications Enoxaparin Sodium (Lovenox) 40 mg SQ Q24H MARIANA Stop: 12/30/18 21:59 Last Admin: 11/30/18 21:51 Dose: 40 mg Documented by: [id number] Folic Acid (Folvite) 1 mg PO QPM MARIANA Stop: 12/30/18 20:59 Last Admin: 11/30/18 21:50 Dose: 1 mg Documented by: [id number] Sodium Chloride (Nss 1000ml) 1,000 mls @ 80 mls/hr IV .[id number] MARIANA Stop: 12/01/18 09:29 Last Admin: 11/30/18 21:51 Dose: 80 mls/hr Documented by: [id number] Insulin Aspart (Novolog Flexpen) 0 units SC ACHS MARIANA Stop: 12/30/18 20:59 Last Admin: 11/30/18 21:54 Dose: 7 units Documented by: [id number] Cosigned by: [id number] Multivitamins/Minerals (Caltrate Plus) 1 tab PO BID MARIANA Stop: 12/30/18 20:59 Last Admin: 11/30/18 21:50 Dose: 1 tab Documented by: [id number] Discontinued Medications Cefepime HCl (Maxipime) 2,000 mg in 20 mls @ 5 mls/min IV NOW STA; Protocol Stop: 11/30/18 15:54 Last Admin: 11/30/18 16:33 Dose: 5 mls/min Documented by: [id number] Acetaminophen (Ofirmev) 1,000 mg in 100 mls @ 400 mls/hr IV NOW STA Stop: 11/30/18 16:13 Last Infusion: 11/30/18 16:37 Dose: 0 mls/hr Documented by: [id number] Admin: 11/30/18 16:14 Dose: 400 mls/hr Documented by: [id number] Sodium Chloride (Nss 1000ml) 500 mls @ 999 mls/hr IV .Q31M ONE Stop: 11/30/18 16:36 Last Infusion: 11/30/18 17:03 Dose: 0 mls/hr Documented by: [id number] Admin: 11/30/18 16:30 Dose: 999 mls/hr Documented by: [id number] Ioversol (Optiray 320 125ml) 118 ml IV ONCE PRN PRN Reason: Interaction Checking Stop: 12/04/18 17:07 Last Admin: 11/30/18 17:08 Dose: 118 ml Documented by: [id number] Levalbuterol HCl (Xopenex 1.25mg/3ml Neb) 1.25 mg NEB NOW STA Stop: 11/30/18 15:52 Last Admin: 11/30/18 16:08 Dose: 1.25 mg Documented by: [id number] Methylprednisolone (Solumedrol) 125 mg IV NOW STA Stop: 11/30/18 15:52 Last Admin: 11/30/18 16:14 Dose: 125 mg Documented by: [id number] Medical Decision Making Differential Diagnosis The differential diagnoses considered include exacerbation of COPD, pneumonia or bronchitis, pneumothorax, PE, anemia, electrolyte imbalance and NV. Medical Records Attestation: I reviewed the patient's medical records. Home Medications Current Medication List: was personally reviewed by me Laboratory Data Attestation: I reviewed the patient's lab results. Result diagrams: 11/30/18 15:43 11/30/18 15:43 Lab Results 11/30/18 11/30/18 11/30/18 Range/Units 15:43 15:43 15:43 WBC 10.64 (4.8-10.8) K/uL RBC 3.73 L (4.2-5.4) M/uL Hgb 10.1 L (12.0-16.0) g/dL Hct 32.0 L (37-47) % MCV 85.8 (80-100) fL MCH 27.1 (25-34) pg MCHC 31.6 L (32-36) g/dL RDW Std Deviation 49.4 H (36.4-46.3) fL RDW Coeff of Adan 15.7 H (11.5-14.5) % Plt Count 209 (130-400) K/uL MPV 8.3 (7.4-10.4) fL Immature Gran % (Auto) 0.3 % Neut % (Auto) 84.5 % Lymph % (Auto) 10.3 % [place] % (Auto) 3.7 % Eos % (Auto) 1.0 % Baso % (Auto) 0.2 % Immature Gran # (Auto) 0.03 H (0.00-0.02) K/uL Neut # (Auto) 8.99 H (1.4-6.5) K/uL Lymph # (Auto) 1.10 L (1.2-3.4) K/uL [place] # (Auto) 0.39 (0.11-0.59) K/uL Eos # (Auto) 0.11 (0-0.5) K/uL Baso # (Auto) 0.02 (0-0.2) K/uL PT 10.2 (9.0-12.0) Seconds INR 1.0 (0.9-1.1) APTT 33.0 H (21.0-31.0) Seconds PTT Ratio 1.2 Sodium 136 (136-145) mmol/L Potassium 4.2 (3.5-5.1) mmol/L Chloride 96 L (98-107) mmol/L Carbon Dioxide 34 H (21-32) mmol/L Anion Gap 6.0 (3-11) BUN 12 (7-18) mg/dl Creatinine 0.58 L (0.6-1.2) mg/dl Est Cr Clr Drug Dosing 102.6 ml/min Est GFR ( Amer) 118.6 Est GFR (Non-Af Amer) 102.3 BUN/Creatinine Ratio 20.6 H (10-20) Glucose 99 (70-99) mg/dl Lactate (0.4-2.0) mmol/L Calcium 9.2 (8.5-10.1) mg/dl Magnesium 2.2 (1.8-2.4) mg/dl Total Bilirubin 0.4 (0.2-1) mg/dl AST 13 L (15-37) U/L ALT 13 (12-78) U/L Alkaline Phosphatase 86 (45-117) U/L Troponin I < 0.015 (0-0.045) ng/ml Total Protein 8.4 H (6.4-8.2) gm/dl Albumin 2.9 L (3.4-5.0) gm/dl Globulin 5.5 H (2.5-4.0) gm/dl Albumin/Globulin Ratio 0.5 L (0.9-2) 11/30/18 Range/Units 16:14 WBC (4.8-10.8) K/uL RBC (4.2-5.4) M/uL Hgb (12.0-16.0) g/dL Hct (37-47) % MCV (80-100) fL MCH (25-34) pg MCHC (32-36) g/dL RDW Std Deviation (36.4-46.3) fL RDW Coeff of Adan (11.5-14.5) % Plt Count (130-400) K/uL MPV (7.4-10.4) fL Immature Gran % (Auto) % Neut % (Auto) % Lymph % (Auto) % [place] % (Auto) % Eos % (Auto) % Baso % (Auto) % Immature Gran # (Auto) (0.00-0.02) K/uL Neut # (Auto) (1.4-6.5) K/uL Lymph # (Auto) (1.2-3.4) K/uL [place] # (Auto) (0.11-0.59) K/uL Eos # (Auto) (0-0.5) K/uL Baso # (Auto) (0-0.2) K/uL PT (9.0-12.0) Seconds INR (0.9-1.1) APTT (21.0-31.0) Seconds PTT Ratio Sodium (136-145) mmol/L Potassium (3.5-5.1) mmol/L Chloride (98-107) mmol/L Carbon Dioxide (21-32) mmol/L Anion Gap (3-11) BUN (7-18) mg/dl Creatinine (0.6-1.2) mg/dl Est Cr Clr Drug Dosing ml/min Est GFR ( Amer) Est GFR (Non-Af Amer) BUN/Creatinine Ratio (10-20) Glucose (70-99) mg/dl Lactate 0.9 (0.4-2.0) mmol/L Calcium (8.5-10.1) mg/dl Magnesium (1.8-2.4) mg/dl Total Bilirubin (0.2-1) mg/dl AST (15-37) U/L ALT (12-78) U/L Alkaline Phosphatase (45-117) U/L Troponin I (0-0.045) ng/ml Total Protein (6.4-8.2) gm/dl Albumin (3.4-5.0) gm/dl Globulin (2.5-4.0) gm/dl Albumin/Globulin Ratio (0.9-2) Imaging Data Radiologist's Impression: Radiology results as stated below per my review and the radiologist's interpretation: CT angio chest PE protocol CT DOSE: 594.58 mGy.cm HISTORY: 58 years-old Female with PE. Acute chest pain TECHNIQUE: Multiple CTA images of the chest were obtained after the intravenous administration of 118 ml Optiray 320. Coronal and sagittal MIPS were obtained from the axial data set and were submitted for review. All measurements were obtained according to NASCET criteria. A dose lowering technique was utilized adhering to the principles of ALARA. COMPARISON: Chest radiograph of same day, chest CT 10/23/2018, CTA chest 12/17/2017 FINDINGS: CTA: Heart is normal in size without pericardial effusion. Coronary arterial calcifications are noted. Right IJ Xueraz-k-Dgaw catheter distal tip terminates within the inferior aspect of the SVC. Prior median sternotomy with findings suggestive of prior CABG. No thoracic aortic aneurysm or dissection. Dilated pulmonary artery suggests pulmonary arterial hypertension. No focal filling defects to suggest pulmonary thromboembolic disease. CT CHEST: No focal thyroid nodule. Enlarged mediastinal lymph nodes include 3.3 x 1.5 cm subcarinal adenopathy and right paratracheal lymph nodes measuring up to 1.5 x 1.4 cm. No hilar adenopathy identified. No supraclavicular or axillary chain adenopathy. Findings appear unchanged from 10/23/2018. No pneumothorax or pleural effusion. Left-sided Bochdalek hernia. There are a few pleural-based calcifications noted of the lung bases. Severe bilateral varicoid bronchiectasis with multifocal mucus plugging, air trapping and tree-in-bud nodules with subpleural reticulation and scattered subpleural consolidation, generally unchanged from comparison. Mild wall thickening throughout the esophagus. Soft tissues are unremarkable. Right shoulder arthroplasty. Severe degenerative changes of the left glenohumeral joint with flattening of the humeral head. IMPRESSION: 1. No evidence of pulmonary thromboembolic disease. 2. Prior median sternotomy and CABG. 3. Severe bilateral varicoid bronchiectasis with multifocal mucus plugging, air trapping, tree-in-bud nodules with subpleural reticulation and scattered subpleural predominant consolidation appears unchanged from comparison studies. Findings may be seen in cases of chronic aspiration, chronic postinfectious state among other etiologies. 4. Unchanged mediastinal adenopathy. 5. Dilated pulmonary arteries suggestive of pulmonary arterial hypertension. 6. Mild wall thickening throughout the esophagus. Correlate clinically to e xclude esophagitis. The above report was generated using voice recognition software. It may contain grammatical, syntax or spelling errors. Electronically signed by: Lobo Yoo M.D. 11/30/2018 5:[address] angio chest PE protocol CT DOSE: 594.58 mGy.cm HISTORY: 58 years-old Female with PE. Acute chest pain TECHNIQUE: Multiple CTA images of the chest were obtained after the intravenous administration of 118 ml Optiray 320. Coronal and sagittal MIPS were obtained from the axial data set and were submitted for review. All measurements were obtained according to NASCET criteria. A dose lowering technique was utilized adhering to the principles of ALARA. COMPARISON: Chest radiograph of same day, chest CT 10/23/2018, CTA chest 12/17/2017 FINDINGS: CTA: Heart is normal in size without pericardial effusion. Coronary arterial calcifications are noted. Right IJ Hdztkh-k-Mhxw catheter distal tip terminates within the inferior aspect of the SVC. Prior median sternotomy with findings suggestive of prior CABG. No thoracic aortic aneurysm or dissection. Dilated pulmonary artery suggests pulmonary arterial hypertension. No focal filling defects to suggest pulmonary thromboembolic disease. CT CHEST: No focal thyroid nodule. Enlarged mediastinal lymph nodes include 3.3 x 1.5 cm subcarinal adenopathy and right paratracheal lymph nodes measuring up to 1.5 x 1.4 cm. No hilar adenopathy identified. No supraclavicular or axillary chain adenopathy. Findings appear unchanged from 10/23/2018. No pneumothorax or pleural effusion. Left-sided Bochdalek hernia. There are a few pleural-based calcifications noted of the lung bases. Severe bilateral varicoid bronchiectasis with multifocal mucus plugging, air trapping and tree-in-bud nodules with subpleural reticulation and scattered subpleural consolidation, generally unchanged from comparison. Mild wall thickening throughout the esophagus. Soft tissues are unremarkable. Right shoulder arthroplasty. Severe degenerative changes of the left glenohumeral joint with flattening of the humeral head. IMPRESSION: 1. No evidence of pulmonary thromboembolic disease. 2. Prior median sternotomy and CABG. 3. Severe bilateral varicoid bronchiectasis with multifocal mucus plugging, air trapping, tree-in-bud nodules with subpleural reticulation and scattered subpleural predominant consolidation appears unchanged from comparison studies. Findings may be seen in cases of chronic aspiration, chronic postinfectious state among other etiologies. 4. Unchanged mediastinal adenopathy. 5. Dilated pulmonary arteries suggestive of pulmonary arterial hypertension. 6. Mild wall thickening throughout the esophagus. Correlate clinically to exclude esophagitis. The above report was generated using voice recognition software. It may contain grammatical, syntax or spelling errors. Electronically signed by: Lobo Yoo M.D. 11/30/2018 5:32 PM ECG Data Attestation: I personally reviewed and interpreted this ECG as follows: Indication: SOB/dyspnea Rate (beats per minute): 117 Rhythm: sinus tachycardia Findings: + ST depression (diffusely) and + T-wave inversion (Diffusely); no ST elevation Comparison ECG Date: from (11/14/2018) Change: no significant change Blood Pressure Blood Pressure Findings: Normal blood pressure Blood Pressure Disposition: did not require urgent referral MDM Narrative There is no leukocytosis. The patient is anemic but she has a history of the same. No concerning coagulopathy. No significant electrolyte abnormality or kidney failure. No elevation to the liver enzymes. EKG showed a sinus tachycardia, there were some chronic findings noted on the EKG, no ST elevation. Cardiac enzyme testing x1 was not consistent with acute cardiac injury. Chest film showed chronic lung disease, no pneumonia or pneumothorax. Chest CT did not show evidence for PE, chronic findings of bronchiectasis were noted, some mucus plugging was noted. Lactic acid level is not elevated making sepsis less likely. Blood cultures are pending. The patient was short of breath when she arrived. She received Levalbuterol nebulizer treatment. She was given IV Solu-Medrol and IV saline. She was given IV cefepime as antibiotic coverage. She received IV Tylenol for pain. The patient is improved with the above treatment. She is breathing easier, she no longer seems as short of breath. Her respiratory rate has decreased. Her oxygen requirement has decreased. Her heart rate has decreased. The patient likely has an acute bronchitis with a flare of her bronchiectasis and COPD. She is requiring more oxygen than baseline and is feeling short of breath. I do think a hospital stay is warranted. I did speak to the patient and case management. The on-call hospitalist was consulted. Impression & Plan Respiratory distress, Acute exacerbation of bronchiectasis, Acute bronchitis, Right-sided chest pain Critical Care Time Critical Care Time: Yes Total Critical Care Time: 35 I have personally spent 35 minutes of critical care time in the direct management of this patient. This includes bedside care, interpretation of diagnostic studies, and testing, discussion with consultants, patient, and family members, and other required patient management activities. This 35 minutes is in excess of all separately billable procedures. Discharge Plan Visit Data *Final* Discharge Date/Time: 11/30/18 20:31 Chief Complaint: Shortness of Breath/Dyspnea ED Provider: Ja Pedraza Discharge Problem: Respiratory distress, Acute exacerbation of bronchiectasis, Acute bronchitis, Right-sided chest pain Patient Disposition: Admitted As Inpatient Discharge Instructions Interventions: ED Discharge Assessment Last Done: 11/30/18 20:31 The scribe's documentation has been prepared under my direction and personally reviewed by me in its entirety. I confirm that the note above accurately reflects all work, treatment, procedures, and medical decision making performed by me.
--- NOTE | 2018-11-30 17:34 | CT Scan Report ---
CT angio chest PE protocol CT DOSE: 594.58 mGy.cm HISTORY: 58 years-old Female with PE. Acute chest pain TECHNIQUE: Multiple CTA images of the chest were obtained after the intravenous administration of 118 ml Optiray 320. Coronal and sagittal MIPS were obtained from the axial data set and were submitted for review. All measurements were obtained according to NASCET criteria. A dose lowering technique w as utilized adhering to the principles of ALARA. COMPARISON: Chest radiograph of same day, chest CT 10/23/2018, CTA chest 12/17/2017 FINDINGS: CTA: Heart is normal in size without pericardial effusion. Coronary arterial calcifications are noted. Rig ht IJ [id number] catheter distal tip terminates within the inferior aspect of the SVC. Prior media n sternotomy with findings suggestive of prior CABG. No thoracic aortic aneurysm or dissection. Dilat ed pulmonary artery suggests pulmonary arterial hypertension. No focal filling defects to suggest pul monary thromboembolic disease. CT CHEST: No focal thyroid nodule. Enlarged mediastinal lymph nodes include 3.3 x 1.5 cm subcarinal adenopathy and right paratracheal lymph nodes measuring up to 1.5 x 1.4 cm. No hilar adenopathy identified. No s upraclavicular or axillary chain adenopathy. Findings appear unchanged from 10/23/2018. No pneumothora x or pleural effusion. Left-sided Bochdalek hernia. There are a few pleural-based calcifications note d of the lung bases. Severe bilateral varicoid bronchiectasis with multifocal mucus plugging, air tra pping and tree-in-bud nodules with subpleural reticulation and scattered subpleural consolidation, ge nerally unchanged from comparison. Mild wall thickening throughout the esophagus. Soft tissues are unremarkable. Right shoulder arthropl asty. Severe degenerative changes of the left glenohumeral joint with flattening of the humeral head. IMPRESSION: 1. No evidence of pulmonary thromboembolic disease. 2. Prior median sternotomy and CABG. 3. Severe bilateral varicoid bronchiectasis with multifocal mucus plugging, air trapping, tree-in-bud nodules with subpleural reticulation and scattered subpleural predominant consolidation appears unch anged from comparison studies. Findings may be seen in cases of chronic aspiration, chronic postinfec tious state among other etiologies. 4. Unchanged mediastinal adenopathy. 5. Dilated pulmonary arteries suggestive of pulmonary arterial hypertension. 6. Mild wall thickening throughout the esophagus. Correlate clinically to exclude esophagitis. The above report was generated using voice recognition software. It may contain grammatical, syntax o r spelling errors. Electronically signed by: Lobo Yoo M.D. 11/30/2018 5:32 PM
--- NOTE | 2018-11-30 18:52 | History & Physical Report ---
Date of Service November 30, 2018 Assessment & Plan (1) Acute and chronic respiratory failure: (2) Bronchiectasis: (3) COPD with acute exacerbation: Pt with h/o bronchiectasis, COPD, chronic respiratory failure on 2.5-4L oxygen and Trilogy HS and prn at home presented with increased SOB and increased productive yellow cough for couple of days. Referred today from pulmonology office for respiratory distress. Denies fever/chills In ER pt afebrile, P: 117 down to 102, R: 40 down to 20, BP: 142/88, initial sat 83% on 2.5L, 93% on 5L. WBC: 10, H/H: 10/32 (baseline Hgb: 9-10), CO2: 34 (chronic elevated), A, CTA CHEST: No evidence of pulmonary thromboembolic disease. Severe bilateral v aricoid bronchiectasis with multifocal mucus plugging, air trapping, tree-in-bud nodules with subpleural reticulation and scattered subpleural predominant consolidation appears unchanged from comparison studies. Findings may be seen in cases of chronic aspiration, chronic postinfectious state among other etiologies. Unchanged mediastinal adenopathy. Dilated pulmonary arteries suggestive of pulmonary arterial hypertension. Mild wall thickening throughout the esophagus. Correlate clinically to exclude esophagitis. DDX: chronic aspiration -In ER given Solumedrol 125mg, xopenex neb, cefepime, tylenol, 500ml NSS -Sputum culture, blood culture -Cefepime, Flagyl -Supplemental oxygen -Bipap or continue pt's home Trilogy machine HS and prn -Solumedrol 40mg Q8H -Xopenex/atrovent nebs scheduled -Continue Breo -Flutter valve, vibration vest -Speech eval -Monitor CBC, BMP -Pulmonology consult (4) Prolonged Q-T interval on ECG: Just finished Levaquin -Hold sertraline -EKG in am (5) Chest pain: Right sided chest and rib pain today. Pt had increased cough. Pain with increased with cough and deep inspiration. CTA negative for PE. No pnuemothorax. negative troponin. 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 Pt reports hasn't been needing home insulin -Monitor BSGs, Diabetic diet -Novolog sliding scale per protocol (7) Depression: -Hold sertraline with prolonged QTc (8) GERD (gastroesophageal reflux disease): Denies increased symptoms -Continue PPI (9) Sinus tachycardia: Chronic Elevated more initially in ER with respiratory distress which has trended down -continue metoprolol DVT Prophylaxis -Lovenox SQ DNR/DNI as per discussion with pt Follows with Ivonne [facility] for routine care Pt was seen and care coordinated with Dr Rodriguez. See addendum History of Present Illness Chief Complaint: SOB Primary Care Provider: SHMUEL Álvarez Pt is 58 y/o F with PMH bronchiectasis, COPD, chronic respiratory failure on 2.5-4L oxygen and Trilogy HS and prn, CVID, steroid induced diabetes, BILL, depression, pulmonary HTN, GERD, sinus tachycardia presented to ER from pulmonology office for respiratory distress. She reports past couple of days with increased SOB and increased yellow sputum production. She reports right rib and back pain aggravated with inspiration. Denies fever/chills, hemoptysis. Pt states today needed oxygen at 5L to help with SOB and reported at pulm office needed to titrate oxygen to 5L to maintain sat >90%. Pt has flutter valve and vibration vest at home. States has OGLESBY's when her oxygen sat is low (she checks at home and below 90 and she titrates her oxygen). Also reports chronic rhinorrhea. Pt with hx bronchoscopy on 11/14/18 showed mucous plugging and discharged on 11/16/18. She finished Levaquin and prednisone today. Denies fever/chills, diaphoresis, N/V/D/C, dizziness, syncope, vision changes, neck pain, other CP, palpitations, sore throat, choking, otalgia, abdominal pain, paresthesias, weakness, extremity weakness, extremity edema, rashes, urinary symptoms. Allergies Allergy/AdvReac Type Severity Reaction Status Date / Time albuterol AdvReac Mild CHEST Verified 11/30/18 14:39 PAIN, LEVALBUTEROL OK oxycodone AdvReac Mild CAUSES Verified 11/30/18 14:39 DEPRESSION Home Medications Home Medications Medication Instructions Recorded Confirmed Type Caltrate 600-D Plus Minerals 1 tab PO BID 12/17/17 11/30/18 History Gammagard Liquid 0 mg/kg IV MONTHLY 12/17/17 11/30/18 History Probiotic 1 tab PO QPM 12/17/17 11/30/18 History acetaminophen 1,000 mg PO Q6H PRN 12/17/17 11/30/18 History ascorbic acid (vitamin C) 250 mg PO DAILY 12/17/17 11/30/18 History cyanocobalamin (vitamin B-12) 1,000 mcg PO DAILY 12/17/17 11/30/18 History folic acid 1 mg PO QPM 12/17/17 11/30/18 History guaifenesin 1,200 mg PO Q12H PRN 12/17/17 11/30/18 History hydrocortisone 2.5 mg PO HS 12/17/17 11/30/18 History hydrocortisone 10 mg PO QAM 12/17/17 11/30/18 History magnesium oxide 400 mg PO DAILY 12/17/17 11/30/18 History multivitamin 1 tab PO DAILY 12/17/17 11/30/18 History pantoprazole 40 mg PO DAILY 12/17/17 11/30/18 History sertraline 75 mg PO DAILY 12/17/17 11/30/18 History Breo Ellipta 1 inh INHALATION DAILY 04/21/18 11/30/18 History Novolog Flexpen U-100 Insulin See Rx Instructions .ROUTE .COMPLEX 04/21/18 11/30/18 History metoprolol succinate 50 mg PO DAILY 11/14/18 11/30/18 History albuterol sulfate HFA 90 2 puff INHALATION Q4 PRN gm 11/24/18 11/30/18 History mcg/actuation aerosol inhaler ipratropium bromide 0.02 % 2.5 ml INH Q4H PRN #150 ml 11/24/18 11/30/18 Rx solution for inhalation levalbuterol 1.25 mg/3 mL solution 1.25 mg INH Q4H PRN #90 ml 11/24/18 11/30/18 Rx for nebulization ipratropium-albuterol 3 ml INHALATION QID 11/30/18 11/30/18 History Past Med/Surg History Medical History CVID (common variable immunodeficiency) (Chronic) Receives monthly IVIG infusions COPD (chronic obstructive pulmonary disease) (Chronic) Pneumomediastinum (Resolved) Pneumothorax (Resolved) Oxygen dependent (Chronic) "2L-4L" On 04/29/17 18:15 Maine Martínez wrote "4L" On 04/08/15 18:56 Adriana Carmen wrote "2L" Steroid-induced diabetes (Chronic) BILL (obstructive sleep apnea) (Chronic) Depression (Chronic) Mild pulmonary hypertension (Chronic) 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) Anxiety (Chronic) Bronchiectasis (Chronic) GERD (gastroesophageal reflux disease) (Chronic) Hypogammaglobulinemia (Chronic) Hyperlipidemia (Chronic) Chronic respiratory failure (Chronic) Depression Hypogammaglobulinemia Surgical History History of myringotomy (Resolved) Hx of tympanostomy tubes (Resolved) S/P tonsillectomy and adenoidectomy (Resolved) History of hysterectomy (Resolved) S/P sinus surgery (Resolved) H/O atrial septal defect repair (Resolved) Hx of appendectomy (Resolved) Hx of cholecystectomy (Resolved) S/P section (Chronic) H/O total shoulder replacement (Resolved) History of right hip replacement (Resolved) History of left hip replacement (Chronic) Family History Father Aneurysm of abdominal aorta Mother Cervical ca Cancer Social History Preferred Language: Croatian Communication Ability: Effective Vault Teller Required: No Beliefs That Will Affect Care: None marital status: Current Living Situation: Alone current occupational status: disabled Other Information That Helps Us Care for You: No Feels Safe at Home: Yes Safety Concerns: Feels Safe At This Time Smoking Status: Never smoker Second Hand Exposure: No ; Hx Alcohol Use: No Hx Substance Use: No Review of Systems Review of Systems: All systems reviewed & are unremarkable except as noted in HPI & below Physical Exam Physical Exam: General: Chronic ill appearing, mild respiratory distress, overweight Head: normocephalic, atraumatic Eyes: PERRL, EOM's intact, conjunctiva non-injected, anicteric ENT: normal inspection external ears, nose, mucous membranes moist Neck: supple, trachea midline Lungs: mild respiratory distress, pt SOB with speaking in sentence, R:24, sat 93% with rest on 5L, diminished breath sounds throughout with wheezing, rhonchi, some rales at bases CV: regular rhythm, rate 106, no murmur, no JVD, no pretibial edema Chest: right lateral and posterior ribs with tenderness to palpation without skin discoloration or rashes or palpable crepitus Abd: normal BS, soft, non-tender Ext: no cyanosis, no calf tenderness Neuro: A&O x 3, no focal deficits noted, normal affect Skin: warm, dry Results & Data Vital Signs (Past 12 Hours) Vital Signs Temp Pulse Pulse Resp BP Pulse Ox 11/30/18 18:30 102 H 20 96 11/30/18 18:00 115 H 26 H 90 11/30/18 17:30 116 H 21 11/30/18 17:01 103 H 26 H 95 11/30/18 17:00 103 H 25 H 128/78 94 11/30/18 16:35 112 H 20 119/67 90 11/30/18 16:30 115 H 28 H 91 11/30/18 16:21 93 11/30/18 16:10 118 H 18 93 11/30/18 16:04 92 11/30/18 16:00 125 H 27 H 94 11/30/18 15:45 115 H 20 94 11/30/18 15:36 116 H 30 H 142/88 H 94 11/30/18 15:33 37.4 C 117 H 40 H 142/88 H 94 Laboratory Results Short CBC 11/30/18 Range/Units 15:43 WBC 10.64 (4.8-10.8) K/uL Hgb 10.1 L (12.0-16.0) g/dL Hct 32.0 L (37-47) % Plt Count 209 (130-400) K/uL BMP 11/30/18 15:43 Sodium 136 Potassium 4.2 Chloride 96 L Carbon Dioxide 34 H BUN 12 Creatinine 0.58 L Glucose 99 Calcium 9.2 Cardiac Enzymes 11/30/18 Range/Units 15:43 Troponin I < 0.015 (0-0.045) ng/ml Liver Function 11/30/18 Range/Units 15:43 Total Bilirubin 0.4 (0.2-1) mg/dl AST 13 L (15-37) U/L ALT 13 (12-78) U/L Alkaline Phosphatase 86 (45-117) U/L Albumin 2.9 L (3.4-5.0) gm/dl Diagnostic Findings CXR: IMPRESSION: Stable diffuse bilateral parenchymal infiltrative and interstitial change. CTA CHEST: IMPRESSION: 1. No evidence of pulmonary thromboembolic disease. 2. Prior median sternotomy and CABG. 3. Severe bilateral varicoid bronchiectasis with multifocal mucus plugging, air trapping, tree-in-bud nodules with subpleural reticulation and scattered subpleural predominant consolidation appears unchanged from comparison studies. Findings may be seen in cases of chronic aspiration, chronic postinfectious state among other etiologies. 4. Unchanged mediastinal adenopathy. 5. Dilated pulmonary arteries suggestive of pulmonary arterial hypertension. 6. Mild wall thickening throughout the esophagus. Correlate clinically to exclude esophagitis. ECG Rate (beats per minute): 117 Rhythm: sinus tachycardia Findings: + nonspecific-ST abn (Inferior) and + ST depression (Anterolateral) Comparison ECG Date: from (less ST depression inferior compared to 11/27, had ST depression anterior lateral on 11/14/18) Code Status & VTE Plan VTE Prophylaxis Plan VTE Prophylaxis will be ordered: Yes Supervising Physician Co-Signing Physician Notes Patient is a 58-year-old female with history of bronchiectasis, COPD chronic respiratory failure on oxygen supplementation and other problems presented to ED from pulmonary office for evaluation of respiratory distress. She complains of worsening shortness of breath, cough with yellowish expectoration, pleuritic chest pain since couple of days duration. She has also has been requiring 5 L of oxygen to maintain saturations. CT chest suggestive of multiple mucous plugging, air trapping and tree-in-bud nodules with subpleural reticulation and scattered subpleural predominant consolidation which has been unchanged since prior study. Also findings suggestive of possible chronic aspiration, chronic postinfectious state. Unchanged mediastinal adenopathy and findings suggestive of pulmonary artery hypertension also noted. On exam patient is chronically appearing, thin, frail, mild respiratory distress, normocephalic atraumatic, lungs--diminished coarse breath sounds, bilateral scattered rhonchi and wheezes noted. S1-S2, no murmur, tachycardia, no pedal edema, grossly no focal neurological deficits. Patient is admitted for management of acute on chronic respiratory failure likely secondary to COPD and bronchiectasis exacerbation and mucous plugging, unresolved consolidation. Will start on broad-spectrum IV antibiotics, glucocorticoids, duo nebs, aggressive pulmonary hygiene, consult pu lmonology for possible bronchoscopy for mucous plugging. Speech eval for possible aspiration. Continue supplemental oxygen, home inhalers. I personally reviewed the record. Patient is interviewed and examined at bedside. Patient's care is coordinated with Kristen Carver PA-C. Please refer to the documentation above for details of patient's presentation and for discussion of other issues. (1) Depression Depression Type: unspecified Qualified Code(s): F32.9 - Major depressive disorder, single episode, unspecified (2) Bronchiectasis Bronchiectasis type: with acute exacerbation Qualified Code(s): J47.1 - Bronchiectasis with (acute) exacerbation (3) GERD (gastroesophageal reflux disease) Esophagitis presence: esophagitis presence not specified Qualified Code(s): K21.9 - Gastro-esophageal reflux disease without esophagitis
[2018-11-30] MEDS ORDERED: DEXTROSE 50% 50 ML SYRINGE IV PRN (20:36)
[2018-11-30] MEDS ORDERED: GLUCAGON FOR INJ 1 MG VIAL SQ PRN (20:36)
[2018-11-30] MEDS ORDERED: XOPENEX/ATROVENT 0.63mg/0.5MG NEB COMBO NEB SCH (20:36)
[2018-11-30] MEDS ORDERED: ACETAMINOPHEN 325 MG TAB PO PRN (20:36)
[2018-11-30] MEDS ORDERED: GLUCOSE 40% GEL 15 GM TUBE PO PRN (20:36)
[2018-11-30] MEDS ORDERED: guaiFENesin 600 MG TABCR PO PRN (20:36)
[2018-11-30] MEDS ORDERED: CARBOHYDRATES FOR HYPOGLYCEMIA PO PRN (20:36)
[2018-11-30] MEDS ORDERED: GLUCOSE 10 TABS/TUBE PO PRN (20:36)
[2018-11-30] MEDS ORDERED: [UNRECOGNIZED DRUG - OTHER] PO SCH (21:00)
[2018-11-30] MEDS ORDERED: SODIUM CHLORIDE 0.9% 1000ML 1,000 ML IV SCH (21:00)
[2018-11-30] MEDS: FOLIC ACID 1 MG TAB PO SCH (21:50)
[2018-11-30] MEDS: CALCIUM 600MG + VIT D 400 IU TAB PO SCH (21:50)
[2018-11-30] MEDS: ENOXAPARIN INJ 40 MG/0.4 ML SYR SQ SCH (21:51)
[2018-11-30] MEDS: INSULIN ASPART 100 UNITS/ML 3 ML PEN SC SCH (21:54)
[2018-11-30] MEDS ORDERED: INSULIN GLARGINE SOLOSTAR 100 UNITS/ML 3 ML PEN SC SCH (22:00)
[2018-11-30] MEDS: metroNIDAZOLE 500 MG/100 ML BAG IV SCH (22:25)
[2018-12-01] MEDS: methylPREDNISolone 40 MG in SYRINGE 0 ML IV SCH ×2 (00:22→08:03)
[2018-12-01] MEDS: CEFEPIME 2,000 MG in SYRINGE 7.5 ML IV SCH ×3 (00:22→16:32)
[2018-12-01] MEDS: IPRATROPIUM BROMIDE NEB SOLN 0.02% 2.5 ML VIAL INH SCH ×3 (03:01→13:11)
[2018-12-01] MEDS: LEVALBUTEROL HCL 0.63 MG/3 ML NEB NEB SCH ×3 (03:05→13:11)
[2018-12-01] MEDS: metroNIDAZOLE 500 MG/100 ML BAG IV SCH ×2 (06:29→14:11)
[2018-12-01 06:55] LABS: Hematocrit (blood only) 27.7 % (37-47); Hemoglobin 8.8 g/dL (12.0-16.0); Mean Corpuscular Hemoglobin 27.1 pg (25-34); Mean Corpuscular Hgb Conc 31.8 g/dL (32-36); Mean Corpuscular Volume 85.2 fL (80-100); Mean Platelet Volume 8.4 fL (7.4-10.4); Platelet Count 145 K/uL (130-400); RDW Coefficient of Variation 15.3 % (11.5-14.5); RDW Standard Deviation 48.3 fL (36.4-46.3); Red Blood Count 3.25 M/uL (4.2-5.4); White Blood Count 5.89 K/uL (4.8-10.8)
[2018-12-01 07:20] LABS: BUN Creatinine Ratio 21.5 (10-20); Calcium 8.6 mg/dl (8.5-10.1); Creatinine Clr Calc Pharmacy 93.1 ml/min; Est GFR (African American) 114.8; Est GFR (Non-African American) 99.1; Magnesium 2.1 mg/dl (1.8-2.4); Potassium 4.2 mmol/L (3.5-5.1)
[2018-12-01] MEDS: INSULIN ASPART 100 UNITS/ML 3 ML PEN SC SCH ×4 (07:56→20:58)
[2018-12-01] MEDS: CALCIUM 600MG + VIT D 400 IU TAB PO SCH ×2 (08:04→20:53)
[2018-12-01] MEDS: MAGNESIUM OXIDE 400 MG TAB PO SCH (08:05)
[2018-12-01] MEDS: MULTIVITAMIN TAB PO SCH (08:05)
[2018-12-01] MEDS: INSULIN GLARGINE SOLOSTAR 100 UNITS/ML 3 ML PEN SC SCH ×2 (08:05→20:54)
[2018-12-01] MEDS: ASCORBIC ACID 500 MG TAB PO SCH (08:06)
[2018-12-01] MEDS: PANTOprazole 40 MG TAB PO SCH (08:06)
[2018-12-01] MEDS: CYANOCOBALAMIN 500 MCG TABLET (VITAMIN B-12) PO SCH (08:06)
[2018-12-01] MEDS: METOPROLOL SUCC 50MG EXT REL TAB PO SCH (08:06)
[2018-12-01] MEDS ORDERED: NYSTATIN SUSP 500,000 U/5 ML UDC PO PRN (12:50)
--- NOTE | 2018-12-01 12:54 | Hospitalist Progress Note ---
Date of Service December 01, 2018 Assessment & Plan (1) Acute and chronic respiratory failure: Acute on chronic hypoxic respiratory failure. Underlying COPD and bronchiectasis. Titrate supplemental oxygen. BiPAP support as necessary. (2) COPD (chronic obstructive pulmonary disease): Exacerbation secondary to bronchiectasis. Continue steroids and bronchodilators. (3) Acute exacerbation of bronchiectasis: CT demonstrated bronchiectasis. Receiving intravenous cefepime. (4) Right-sided chest pain: CTA chest negative for pulmonary embolism. (5) Mediastinal adenopathy: Noted on current and previous CT, unchanged. (6) Prolonged Q-T interval on ECG: Admission EKG showed QTC of 546 ms. Recently received levofloxacin; also on sertraline. QTc this morning 386 ms. (7) Steroid-induced diabetes: Follow blood sugars and adjust insulin therapy as necessary. (8) Hypogammaglobulinemia: Receives immunoglobulin infusions monthly. (9) DVT prophylaxis: SQ enoxaparin. Ambulate as able. (10) Discharge planning issues: Anticipated discharge to home. Medical follow-up with SHMUEL Patel. Pulmonary Medicine follow-up with Dr. Lang and Baljinder Yen PA-C. Subjective Recheck for multiple problems. Patient seen in their room around 1400. Admitted yesterday with acute on chronic respiratory failure. Used BiPAP last night. Feels better today. Cough improved. Less short of breath. Intermittent transient sharp right-sided chest pain, not clearly pleuritic in nature. Review of Systems: Constitutional- no fever. Cardiac- no anginal symptoms. Pulmonary- as noted above. GI- no nausea, vomiting, diarrhea, melena, hematochezia. - no urinary symptoms. Otherwise, as noted above. Physical Exam Constitutional: + ill appearing; no acute distress Eyes: + anicteric sclerae ENMT: Mouth: + tongue abnormality (mild thrush) Neck: trachea midline, no thyromegaly Respiratory: no respiratory distress and does not use accessory muscles Auscultation: + rhonchi and + wheezes Cardiovascular: Rate/Rhythm: regular rate and regular rhythm Heart Sounds: no gallop, no murmur and no cardiac rub Vessels: no JVD Extremities: no calf tenderness and no edema Gastrointestinal (Abdomen): normal bowel sounds, soft, nontender, no hepatosplenomegaly Skin: no rashes, warm and dry Psychiatric: Orientation: alert and oriented x 3 Results & Data Vital Signs (Past 12 Hours) Vital Signs Temp Pulse Pulse Resp BP Pulse Ox 12/01/18 11:19 36.6 C 79 18 119/63 96 12/01/18 08:20 37.0 C 76 22 106/57 L 93 12/01/18 07:03 80 20 95 12/01/18 03:45 36.5 C 78 20 117/53 L 96 12/01/18 03:05 102 H 20 95 Laboratory Results 12/01/18 06:40 12/01/18 06:40 (1) COPD (chronic obstructive pulmonary disease) COPD type: unspecified COPD Qualified Code(s): J44.9 - Chronic obstructive pulmonary disease, unspecified
--- NOTE | 2018-12-01 14:44 | Pulmonary Consultation ---
Date of Consultation December 01, 2018 Assessment & Plan (1) Acute exacerbation of bronchiectasis: Is unclear to me exactly what the etiology of her bronchiectasis is, however, she appears to have severely compromised lung function and largely much of her lung function is going to be irreversible at this point. She does not appear to have any obvious wheezing and so we can drop her prednisone down to 40 mg daily. We can obtain a baseline IgE value to evaluate for ABPA. She does not need AFB sputum checked that she just had a bronchoscopy which was negative for AFB. She does have a history of multidrug-resistant Acinetobacter, stenotrophomonas, MSSA among other bacterial organisms as denoted above. Continue cefepime 2 g 3 times daily for now. There is no indication for Flagyl and I will discontinue this. He did give a sputum sample earlier today. We could await the sputum culture before deciding upon changing antibiotics. Typically for a bronchiectasis exacerbation we will treat with antibiotics for 2 weeks. She needs to continue airway clearance therapy. Continue chest physiotherapy 3 times a day for 15 minutes. Continue flutter valve. I will start her on hypertonic saline twice daily. I will switch her to duo nebs every 6 hours. She may benefit from a more complete bronchiectasis work-up as an outpatient. Interestingly, her bronchiectasis does appear to be possibly related to chronic aspiration. Continue Protonix. Present on Admission?: Yes (2) CVID (common variable immunodeficiency): Check immunoglobulin levels. Present on Admission?: Yes (3) Acute and chronic respiratory failure: Continue oxygen as needed to maintain sats of 88% or greater. Continue trilogy at night for her chronic hypercapnic respiratory failure. Present on Admission?: Yes (4) Right-sided chest pain: Present on Admission?: Yes History of Present Illness Attending Physician: Narendra Mccann MD History of Present Illness 58-year-old female with a history of chronic bronchiectasis presumably secondary to CVID who presented to the hospital due to increasing pleurisy and chest tightness. She has been known to pulmonary here for some time. She has been on steroids for many years and has a number of complications related to steroids including adrenal insufficiency and avascular necrosis of the hips. She was previously on monthly IVIG infusions. She is chronically on 2 to 4 L of supplemental oxygen via nasal cannula. She says she uses Brio Ellipta at home along with albuterol. She was previously on hypertonic saline (3%) she does have a vest at home which she uses twice a day for 10 minutes. She has a flutter valve at home as well. She complains of chronic sinus issues and has had numerous sinus procedures in the past. She has had numerous bronchoscopies that I could find in the records since 2010. She has had numerous organisms growing including MSSA, saprophytic fungus, Mycobacterium gordonae, stenotrophomonas that is pansensitive, Acinetobacter that is garcia resistant and Moraxella catarrhalis. I am unable to find her latest pulmonary function test, but based off of Dr. Villalta's interpretation of a pulmonary function 2017 it appears at that time she had a severe obstructive ventilatory pattern with borderline reversibility based off of FVC criteria. She did have some hyperinflation based off an elevated residual volume of 131% predicted. He also apparently had pneumomediastinum in November 2017. It is unclear to me exactly what kind of work-up has been done to determine the etiology of her bronchiectasis, however, as noted before she says she has been in [facility] in the past. She tells me that she has been to [place] in the p ast but never had CF sweat chloride testing completed. She did not indicate to me that there was a clear etiology of her bronchiectasis. She denies any gastrointestinal symptoms that would be compatible with a diagnosis of cystic fibrosis. She does have some family history as noted before of pulmonary issues in her sisters. She has never had any testing for primary ciliary dyskinesia. She says she was diagnosed in the 1980s with bronchiectasis based on the CAT scan. She says that she was recently on Levaquin and Bactrim due to exacerbations of her bronchiectasis. She was recently bronched with negative cultures. She is on high doses of prednisone at home for unclear reasons. She has significant withdrawal when she tapers the prednisone too quickly. She denies any nasal congestion at present. She does have occasional headaches. She denies any weight loss. She does endorse occasional night sweats. She has had no fevers. She does have a history of chronic hypercapnic respiratory failure and is on a trilogy. In the hospital, she is on methylprednisone 40 mg every 8 hours. She is on cefepime 2000 mg every 8 hours. She is also on Flagyl. She is on Protonix 40 mg daily. She does not have any fevers. She has no leukocytosis. She is saturating at 94% on 4 L. She denies any current complaint. She says the main reason for her admission is chest tightness and some mild pleurisy in her back. Allergies Allergy/AdvReac Type Severity Reaction Status Date / Time albuterol AdvReac Mild CHEST Verified 11/30/18 14:39 PAIN, LEVALBUTEROL OK oxycodone AdvReac Mild CAUSES Verified 11/30/18 14:39 DEPRESSION Home Medications Home Medications Medication Instructions Recorded Confirmed Type Caltrate 600-D Plus Minerals 1 tab PO BID 12/17/17 11/30/18 History Gammagard Liquid 0 mg/kg IV MONTHLY 12/17/17 11/30/18 History Probiotic 1 tab PO QPM 12/17/17 11/30/18 History acetaminophen 1,000 mg PO Q6H PRN 12/17/17 11/30/18 History ascorbic acid (vitamin C) 250 mg PO DAILY 12/17/17 11/30/18 History cyanocobalamin (vitamin B-12) 1,000 mcg PO DAILY 12/17/17 11/30/18 History folic acid 1 mg PO QPM 12/17/17 11/30/18 History guaifenesin 1,200 mg PO Q12H PRN 12/17/17 11/30/18 History hydrocortisone 2.5 mg PO HS 12/17/17 11/30/18 History hydrocortisone 10 mg PO QAM 12/17/17 11/30/18 History magnesium oxide 400 mg PO DAILY 12/17/17 11/30/18 History multivitamin 1 tab PO DAILY 12/17/17 11/30/18 History pantoprazole 40 mg PO DAILY 12/17/17 11/30/18 History sertraline 75 mg PO DAILY 12/17/17 11/30/18 History Breo Ellipta 1 inh INHALATION DAILY 04/21/18 11/30/18 History Novolog Flexpen U-100 Insulin See Rx Instructions .ROUTE .COMPLEX 04/21/18 11/30/18 History metoprolol succinate 50 mg PO DAILY 11/14/18 11/30/18 History albuterol sulfate HFA 90 2 puff INHALATION Q4 PRN gm 11/24/18 11/30/18 History mcg/actuation aerosol inhaler ipratropium bromide 0.02 % 2.5 ml INH Q4H PRN #150 ml 11/24/18 11/30/18 Rx solution for inhalation levalbuterol 1.25 mg/3 mL solution 1.25 mg INH Q4H PRN #90 ml 11/24/18 11/30/18 Rx for nebulization ipratropium-albuterol 3 ml INHALATION QID 11/30/18 11/30/18 History Patient History Medical History CVID (common variable immunodeficiency) (Chronic) Receives monthly IVIG infusions COPD (chronic obstructive pulmonary disease) (Chronic) Pneumomediastinum (Resolved) Pneumothorax (Resolved) Oxygen dependent (Chronic) "2L-4L" On 04/29/17 18:15 Maine Martínez wrote "4L" On 04/08/15 18:56 Adriana Morales wrote "2L" Steroid-induced diabetes (Chronic) BILL (obstructive sleep apnea) (Chronic) Depression (Chronic) Mild pulmonary hypertension (Chronic) 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) Anxiety (Chronic) Bronchiectasis (Chronic) GERD (gastroesophageal reflux disease) (Chronic) Hypogammaglobulinemia (Chronic) Hyperlipidemia (Chronic) Chronic respiratory failure (Chronic) Depression Hypogammaglobulinemia Surgical History History of myringotomy (Resolved) Hx of tympanostomy tubes (Resolved) S/P tonsillectomy and adenoidectomy (Resolved) History of hysterectomy (Resolved) S/P sinus surgery (Resolved) H/O atrial septal defect repair (Resolved) Hx of appendectomy (Resolved) Hx of cholecystectomy (Resolved) S/P section (Chronic) H/O total shoulder replacement (Resolved) History of right hip replacement (Resolved) History of left hip replacement (Chronic) Family History Father Aneurysm of abdominal aorta Mother Cervical ca Cancer Social History Preferred Language: Bahraini Communication Ability: Effective 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: No Beliefs That Will Affect Care: None marital status: Current Living Situation: Alone current occupational status: disabled Other Information That Helps Us Care for You: No Feels Safe at Home: Yes Safety Concerns: Feels Safe At This Time Smoking Status: Never smoker Second Hand Exposure: No ; Hx Alcohol Use: No Hx Substance Use: No Review of Systems Review of Systems: All systems reviewed & are unremarkable except as noted in HPI & below Physical Exam Constitutional: well developed; no acute distress Eyes: PERRL, conjunctivae normal, anicteric sclerae ENMT: Ears: no hearing impairment Neck: trachea midline Respiratory: Auscultation: + rhonchi; no wheezes Cardiovascular: RRR, no murmur, no edema Palpation: normal PMI Gastrointestinal (Abdomen): Inspection/Auscultation: abdomen normal to inspection Percussion/Palpation: + abdomen tender and abdomen soft Musculoskeletal: no cyanosis or clubbing, extremities motor strength 5/5 Skin: no rashes, warm and dry Neurologic: CN's II-XI intact bilaterally Results & Data Vital Signs (Past 12 Hours) Vital Signs Temp Pulse Pulse Resp BP Pulse Ox 12/01/18 13:11 68 18 94 12/01/18 11:19 97.9 F 79 18 119/63 96 12/01/18 08:20 98.6 F 76 22 106/57 L 93 12/01/18 07:03 80 20 95 12/01/18 03:45 97.7 F 78 20 117/53 L 96 12/01/18 03:05 102 H 20 95 Laboratory Results 12/01/18 06:40 12/01/18 06:[address] chest reviewed and demonstrated severe bilateral varicoid bronchiectasis with foci of mucous plugging and air trapping. There is some tree-in-bud nodules as well. CT was largely unchanged from prior. PG Care Time/CCT Total # of Minutes Spent Total Time Spent with Patient: Total time spent is greater than 50% in coordin ation of care (as documented) at patient's floor/unit and/or counseling patient:
[2018-12-01] MEDS: ALBUT/IPRATROP 3MG/0.5MG NEB 3 ML VIAL NEB SCH ×2 (15:46→19:03)
[2018-12-01] MEDS: LACTOBACILLUS ACIDOPHILUS (FLORANEX) TAB PO SCH ×2 (16:33→20:53)
[2018-12-01] MEDS: SODIUM CHLOR 7% 4 ML NEB INH SCH (19:03)
[2018-12-01] MEDS: FOLIC ACID 1 MG TAB PO SCH (20:53)
[2018-12-01] MEDS: ENOXAPARIN INJ 40 MG/0.4 ML SYR SQ SCH (21:03)
[2018-12-02] MEDS: HEPARIN 100 UNIT/ML 5ML FLUSH FLUSH PRN (00:30)
[2018-12-02] MEDS: CEFEPIME 2,000 MG in SYRINGE 7.5 ML IV SCH ×3 (00:32→16:51)
[2018-12-02] MEDS: ALBUT/IPRATROP 3MG/0.5MG NEB 3 ML VIAL NEB SCH ×4 (01:23→19:09)
[2018-12-02] MEDS: SODIUM CHLOR 7% 4 ML NEB INH SCH ×2 (07:00→19:09)
[2018-12-02 07:28] LABS: BUN Creatinine Ratio 24.7 (10-20); Calcium 8.6 mg/dl (8.5-10.1); Creatinine Clr Calc Pharmacy 92.1 ml/min; Est GFR (African American) 114.2; Est GFR (Non-African American) 98.6; Potassium 3.7 mmol/L (3.5-5.1)
[2018-12-02 08:01] LABS: Immunoglobulin M 23.1 mg/dl (40-230)
[2018-12-02] MEDS: INSULIN ASPART 100 UNITS/ML 3 ML PEN SC SCH ×4 (08:14→21:15)
[2018-12-02] MEDS: predniSONE 20 MG TAB PO SCH (08:15)
[2018-12-02] MEDS: METOPROLOL SUCC 50MG EXT REL TAB PO SCH (08:15)
[2018-12-02] MEDS: CYANOCOBALAMIN 500 MCG TABLET (VITAMIN B-12) PO SCH (08:15)
[2018-12-02] MEDS: PANTOprazole 40 MG TAB PO SCH (08:15)
[2018-12-02] MEDS: MULTIVITAMIN TAB PO SCH (08:15)
[2018-12-02] MEDS: LACTOBACILLUS ACIDOPHILUS (FLORANEX) TAB PO SCH ×4 (08:15→21:17)
[2018-12-02] MEDS: CALCIUM 600MG + VIT D 400 IU TAB PO SCH ×2 (08:15→21:17)
[2018-12-02] MEDS: ASCORBIC ACID 500 MG TAB PO SCH (08:16)
[2018-12-02] MEDS: MAGNESIUM OXIDE 400 MG TAB PO SCH (08:16)
[2018-12-02] MEDS: INSULIN GLARGINE SOLOSTAR 100 UNITS/ML 3 ML PEN SC SCH ×2 (08:16→21:15)
--- NOTE | 2018-12-02 12:48 | Pulmonology Progress Note ---
Date of Service December 02, 2018 Assessment & Plan (1) Acute exacerbation of bronchiectasis: Sputum samples are unrevealing thus far. Cultures are negative. I have ordered for another sputum culture. IgE is pending. Continue prednisone 40 mg daily for now. Continue cefepime. She will likely need 2-week course of IV antibiotics as she has failed outpatient antibiotics several times.. She will need repeat pulmonary function as an outpatient. She follows with Dr. Lang and will need follow-up with him. She is not ready for discharge yet. Continue airway clearance with vest, Acapella and hypertonic saline. (2) CVID (common variable immunodeficiency): Immunoglobulins look to be relatively normal. She should follow-up with allergy medicine regarding her IVIG. (3) Acute and chronic respiratory failure: Continue oxygen as needed to maintain sats of 88% or greater. Continue trilogy at night for her chronic hypercapnic respiratory failure. (4) Right-sided chest pain: Subjective Patient patient feeling like she is coughing more today. She has a more productive cough. She thinks this is likely due to the hypertonic saline. She has had no fevers. She denies any chest pain. No night sweats. She is wearing a nasal cannula at 4 L/min. She is saturating at 94%. Physical Exam Constitutional: well developed; no acute distress Eyes: PERRL, conjunctivae normal, anicteric sclerae ENMT: Ears: no hearing impairment Neck: trachea midline Respiratory: Auscultation: + rhonchi and + wheezes Cardiovascular: RRR, no murmur, no edema Palpation: normal PMI Gastrointestinal (Abdomen): Inspection/Auscultation: abdomen normal to inspection Percussion/Palpation: + abdomen tender and abdomen soft Musculoskeletal: no cyanosis or clubbing, extremities motor strength 5/5 Skin: no rashes, warm and dry Neurologic: CN's II-XI intact bilaterally Results & Data Vital Signs (Past 12 Hours) Vital Signs Temp Pulse Pulse Resp BP Pulse Ox 12/02/18 11:14 99.0 F 93 H 20 121/61 94 12/02/18 07:07 97.7 F 88 22 123/60 95 12/02/18 07:01 88 20 97 12/02/18 03:29 97.9 F 88 20 126/68 97 12/02/18 01:28 81 20 98 12/02/18 01:26 81 20 98 PG Care Time/CCT Total # of Minutes Spent Total Time Spent with Patient: Total time spent is greater than 50% in coordination of care (as documented) at patient's floor/unit and/or counseling patient:
--- NOTE | 2018-12-02 18:19 | Hospitalist Progress Note ---
Date of Service December 02, 2018 Assessment & Plan (1) Acute and chronic respiratory failure: Acute on chronic hypoxic respiratory failure. Underlying COPD and bronchiectasis. Titrate supplemental oxygen. BiPAP support as necessary. (2) COPD (chronic obstructive pulmonary disease): Exacerbation secondary to bronchiectasis. Continue steroids and bronchodilators. (3) Acute exacerbation of bronchiectasis: CT demonstrated bronchiectasis. Receiving intravenous cefepime and steroids. Continue pulmonary toilet. (4) Right-sided chest pain: CTA chest negative for pulmonary embolism. (5) Mediastinal adenopathy: Noted on current and previous CT, unchanged. (6) Prolonged Q-T interval on ECG: Admission EKG showed QTC of 546 ms. Recently received levofloxacin; also on sertraline. QTc 12/01 was 386 ms. (7) Steroid-induced diabetes: FBS = 98. Follow blood sugars and adjust insulin therapy as necessary. (8) Hypogammaglobulinemia: Receives immunoglobulin infusions monthly. (9) Diarrhea: Several loose stools over last 24 hours. Prior history of C diff. Receiving probiotics. Check stool for C diff. (10) DVT prophylaxis: SQ enoxaparin. Ambulate as able. (11) Discharge planning issues: Anticipated discharge to home. Medical follow-up with SHMUEL Patel. Pulmonary Medicine follow-up with Dr. Lang and Baljinder Yen PA-C. Subjective Recheck for multiple problems. Patient seen in their room around 1040. Feels better today. Still has cough productive of yellow sputum. Less short of breath. Chest wall pain improved. Having loose stools. Review of Systems: Constitutional- no fever. Cardiac- no anginal symptoms. Pulmonary- as noted above. GI- + diarrhea; no nausea, vomiting, melena, hematochezia. - no urinary symptoms. Otherwise, as noted above. Physical Exam Constitutional: + ill appearing; no acute distress Eyes: + anicteric sclerae Neck: trachea midline, no thyromegaly Respiratory: no respiratory distress and does not use accessory muscles Auscultation: + rhonchi and + wheezes Cardiovascular: Rate/Rhythm: regular rate and regular rhythm Heart Sounds: no gallop, no murmur and no cardiac rub Vessels: no JVD Extremities: no calf tenderness and no edema Gastrointestinal (Abdomen): normal bowel sounds, soft, nontender, no hep atosplenomegaly Skin: no rashes, warm and dry Psychiatric: Orientation: alert and oriented x 3 Results & Data Vital Signs (Past 12 Hours) Vital Signs Temp Pulse Resp BP Pulse Ox 12/02/18 15:43 36.8 C 82 21 160/74 H 94 12/02/18 13:05 90 18 96 12/02/18 11:14 37.2 C 93 H 20 121/61 94 12/02/18 07:07 36.5 C 88 22 123/60 95 12/02/18 07:01 88 20 97 Laboratory Results 12/01/18 06:40 12/02/18 06:43 (1) COPD (chronic obstructive pulmonary disease) COPD type: unspecified COPD Qualified Code(s): J44.9 - Chronic obstructive pulmonary disease, unspecified
[2018-12-02] MEDS: FOLIC ACID 1 MG TAB PO SCH (21:17)
[2018-12-02] MEDS: ENOXAPARIN INJ 40 MG/0.4 ML SYR SQ SCH (21:17)
[2018-12-03] MEDS: CEFEPIME 2,000 MG in SYRINGE 7.5 ML IV SCH ×3 (00:25→15:59)
[2018-12-03] MEDS: ALBUT/IPRATROP 3MG/0.5MG NEB 3 ML VIAL NEB SCH ×4 (01:16→19:16)
[2018-12-03] MEDS: SODIUM CHLOR 7% 4 ML NEB INH SCH ×2 (07:03→19:16)
[2018-12-03] MEDS: MULTIVITAMIN TAB PO SCH (08:01)
[2018-12-03] MEDS: PANTOprazole 40 MG TAB PO SCH (08:01)
[2018-12-03] MEDS: ASCORBIC ACID 500 MG TAB PO SCH (08:01)
[2018-12-03] MEDS: METOPROLOL SUCC 50MG EXT REL TAB PO SCH (08:01)
[2018-12-03] MEDS: predniSONE 20 MG TAB PO SCH (08:01)
[2018-12-03] MEDS: CYANOCOBALAMIN 500 MCG TABLET (VITAMIN B-12) PO SCH (08:01)
[2018-12-03] MEDS: CALCIUM 600MG + VIT D 400 IU TAB PO SCH ×2 (08:01→19:57)
[2018-12-03] MEDS: LACTOBACILLUS ACIDOPHILUS (FLORANEX) TAB PO SCH ×4 (08:01→19:56)
[2018-12-03] MEDS: MAGNESIUM OXIDE 400 MG TAB PO SCH (08:02)
[2018-12-03] MEDS: INSULIN GLARGINE SOLOSTAR 100 UNITS/ML 3 ML PEN SC SCH ×2 (08:02→22:48)
[2018-12-03] MEDS: INSULIN ASPART 100 UNITS/ML 3 ML PEN SC SCH ×4 (08:03→22:49)
--- NOTE | 2018-12-03 10:37 | Pulmonology Progress Note ---
Date of Service December 03, 2018 Assessment & Plan (1) Acute exacerbation of bronchiectasis: Her sputum cultures are now growing gram-negative rods, few GPC's and a few grams-positive rods. I am not certain why her recent BAL cultures did not grow out any organisms. Depending on her sputum cultures, she may need tobramycin IV in addition to cefepime if she grows MDR Pseudomonas. If she needs IV tobramycin, I would dose her with 10 mg/kg and check peak and trough levels. The minimum of time I would have her on IV antibiotics would be two weeks as she has clearly failed multiple outpatient p.o. antibiotics. I will go ahead and send for an AFB sputum/fungal sputum cx as well given that she is now producing sputum and she is at risk for being colonized with nontuberculous Mycobacterium. She may benefit from azithromycin 3 times weekly and 500 mg if she has Pseudomonas. If she has nontuberculous Mycobacterium, I would be less inclined to use azithromycin as she may develop resistance. She tells me she has a history of pseudomonal colonization and was previously on inhaled t obramycin at [place]. This was stopped in 2008 for unclear reasons. She thinks it was because she was taken off her oxygen at that time. IgE is pending. She needs more of a work-up as an outpatient with sweat chloride testing given her family history. If she does in fact have cystic fibrosis, she may benefit from CFTR modulator therapies depending on her gene mutation which have been shown to improve FEV1 in studies. She will need repeat pulmonary function as an outpatient. She follows with Dr. Lang and will need follow-up with him. She is not ready for discharge yet. Continue airway clearance with vest, Acapella and hypertonic saline. (2) CVID (common variable immunodeficiency): Immunoglobulins look to be relatively normal aside for low IgM. She should follow-up with allergy medicine regarding her IVIG. (3) Acute and chronic respiratory failure: Continue oxygen as needed to maintain sats of 88% or greater. Continue trilogy at night for her chronic hypercapnic respiratory failure. (4) Right-sided chest pain: Subjective Patient seen and examined today. She is sitting up in her bed and watching Netflix on her phone. She appears to be comfortable. She does endorse a more productive cough. She has ambulated about the room a bit. She has yellow phlegm. She denies any hemoptysis. She denies any fevers. She does feel better than she was admitted, but not at baseline. She is eating well. She had a bout of diarrhea yesterday but was started on probiotics which has improved her diarrhea. Physical Exam Constitutional: well developed; no acute distress Eyes: PERRL, conjunctivae normal, anicteric sclerae ENMT: Ears: no hearing impairment Neck: trachea midline Respiratory: Auscultation: + rhonchi and + wheezes Cardiovascular: RRR, no murmur, no edema Palpation: normal PMI Gastrointestinal (Abdomen): Inspection/Auscultation: abdomen normal to inspection Percussion/Palpation: + abdomen tender and abdomen soft Musculoskeletal: no cyanosis or clubbing, extremities motor strength 5/5 Skin: no rashes, warm and dry Neurologic: CN's II-XI intact bilaterally Results & Data Vital Signs (Past 12 Hours) Vital Signs Temp Pulse Pulse Resp BP Pulse Ox 12/03/18 07:22 97.9 F 101 H 22 126/71 91 12/03/18 07:04 112 H 24 90 12/03/18 03:57 97.5 F L 81 17 109/59 L 97 12/03/18 01:18 83 22 93 12/03/18 01:17 83 22 93 12/03/18 00:00 98.2 F 72 80 16 126/59 L 98 PG Care Time/CCT Total # of Minutes Spent Total Time Spent with Patient: Total time spent is greater than 50% in coordination of care (as documented) at patient's floor/unit and/or counseling patient:
--- NOTE | 2018-12-03 18:45 | Hospitalist Progress Note ---
Date of Service December 03, 2018 Assessment & Plan (1) Acute and chronic respiratory failure: Acute on chronic hypoxic respiratory failure. Underlying COPD and bronchiectasis. Titrate supplemental oxygen. BiPAP support as necessary. (2) COPD (chronic obstructive pulmonary disease): Exacerbation secondary to bronchiectasis. Continue steroids and bronchodilators. (3) Acute exacerbation of bronchiectasis: CT demonstrated bronchiectasis. Receiving intravenous cefepime and steroids. Cultures negative so far. Continue pulmonary toilet. (4) Right-sided chest pain: CTA chest negative for pulmonary embolism. (5) Mediastinal adenopathy: Noted on current and previous CT, unchanged. (6) Prolonged Q-T interval on ECG: Admission EKG showed QTC of 546 ms. Recently received levofloxacin; also on sertraline. Repeat QTc 12/01 was 386 ms. (7) Steroid-induced diabetes: FBS = 98. Follow blood sugars and adjust insulin therapy as necessary. (8) Hypogammaglobulinemia: Receives immunoglobulin infusions monthly. (9) Diarrhea: Several loose stools over last 24 hours. Prior history of C diff. Receiving probiotics. Stool 12/03 C diff PCR negative. (10) Arrhythmia: Had 22 beat run of wide-complex tachycardia. Apparently asymptomatic. Suspect AF with aberrancy. Follow lytes. Continue cardiac monitoring. (11) DVT prophylaxis: SQ enoxaparin. Ambulate as able. (12) Discharge planning issues: Anticipated discharge to home. Medical follow-up with SHMUEL Patel. Pulmonary Medicine follow-up with Dr. Lang and Baljinder Yen PA-C. Subjective Recheck for multiple problems. Patient seen in their room around 0910. Better. Cough improved. Less short of breath. No pleuritic chest pain. Stools not as loose. Telemetry data reviewed. Had 22 beat run of wide-complex tachycardia around 03:00. Apparently asymptomatic. Suspect AF with aberrancy. Review of Systems: Constitutional- no fever. Cardiac- no anginal symptoms. Pulmonary- as noted above. GI- + loose stools; no nausea, vomiting, melena, hematochezia. - no urinary symptoms. Otherwise, as noted above. Physical Exam Constitutional: + ill appearing; no acute distress Eyes: + anicteric sclerae ENMT: no thrush Neck: trachea midline, no thyromegaly Respiratory: no respiratory distress and does not use accessory muscles Auscultation: + rhonchi and + wheezes Cardiovascular: Rate/Rhythm: regular rate and regular rhythm Heart Sounds: no gallop, no murmur and no cardiac rub Vessels: no JVD Extremities: no calf tenderness and no edema Gastrointestinal (Abdomen): normal bowel sounds, soft, nontender, no hepatosplenomegaly Skin: no rashes, warm and dry Psychiatric: Orientation: alert and oriented x 3 Results & Data Vital Signs (Past 12 Hours) Vital Signs Temp Pulse Resp BP Pulse Ox 12/03/18 15:30 37.4 C 86 18 118/59 L 96 12/03/18 13:23 90 18 97 12/03/18 11:52 36.6 C 97 H 22 133/75 94 12/03/18 07:22 36.6 C 101 H 22 126/71 91 12/03/18 07:04 112 H 24 90 Laboratory Results 12/01/18 06:40 12/02/18 06:43 Microbiology 12/02/18 14:50 Sputum, Expectorated Gram Stain - Final 12/02/18 14:50 Sputum, Expectorated Sputum Culture - Preliminary Pin-point growth present, reincubating. 12/01/18 06:03 Sputum, Expectorated Gram Stain - Final 12/01/18 06:03 Sputum, Expectorated Sputum Culture - Preliminary Gram negative bacilli 11/30/18 16:14 Blood Aerobic Blood Culture - Preliminary No growth in Aerobic bottle after 48 hours. 11/30/18 16:14 Blood Anaerobic Blood Culture - Preliminary No growth in Anaerobic bottle after 48 hours. 11/30/18 16:15 Blood Aerobic Blood Culture - Preliminary No growth in Aerobic bottle after 48 hours. 11/30/18 16:15 Blood Anaerobic Blood Culture - Preliminary No growth in Anaerobic bottle after 48 hours. (1) COPD (chronic obstructive pulmonary disease) COPD type: unspecified COPD Qualified Code(s): J44.9 - Chronic obstructive pulmonary disease, unspecified
[2018-12-03] MEDS: FOLIC ACID 1 MG TAB PO SCH (19:56)
[2018-12-03] MEDS: ENOXAPARIN INJ 40 MG/0.4 ML SYR SQ SCH (22:52)
[2018-12-04] MEDS: CEFEPIME 2,000 MG in SYRINGE 7.5 ML IV SCH ×3 (00:31→17:02)
[2018-12-04] MEDS: ALBUT/IPRATROP 3MG/0.5MG NEB 3 ML VIAL NEB SCH ×4 (01:21→19:07)
[2018-12-04] MEDS: SODIUM CHLOR 7% 4 ML NEB INH SCH ×2 (07:00→19:07)
[2018-12-04 07:54] LABS: Alanine Aminotransferase 25 U/L (12-78); Albumin Level 2.6 gm/dl (3.4-5.0); Aspartate Aminotransferase 32 U/L (15-37); BUN Creatinine Ratio 25.4 (10-20); Blood Urea Nitrogen 18 mg/dl (7-18); Calcium 9.3 mg/dl (8.5-10.1); Carbon Dioxide 39 mmol/L (21-32); Chloride 98 mmol/L (98-107); Creatinine Clr Calc Pharmacy 86.2 ml/min; Est GFR (Non-African American) 96.6; Glucose 81 mg/dl (70-99); Magnesium 2.2 mg/dl (1.8-2.4); Potassium 4.1 mmol/L (3.5-5.1); Sodium 139 mmol/L (136-145)
[2018-12-04 07:57] LABS: Alkaline Phosphatase 60 U/L (45-117); Bilirubin Direct < 0.1 mg/dl (0-0.2); Bilirubin,Total 0.2 mg/dl (0.2-1); Total Protein 7.4 gm/dl (6.4-8.2)
[2018-12-04] MEDS: PANTOprazole 40 MG TAB PO SCH (09:17)
[2018-12-04] MEDS: METOPROLOL SUCC 50MG EXT REL TAB PO SCH (09:17)
[2018-12-04] MEDS: MAGNESIUM OXIDE 400 MG TAB PO SCH (09:17)
[2018-12-04] MEDS: CYANOCOBALAMIN 500 MCG TABLET (VITAMIN B-12) PO SCH (09:17)
[2018-12-04] MEDS: predniSONE 20 MG TAB PO SCH ×2 (09:17→20:37)
[2018-12-04] MEDS: CALCIUM 600MG + VIT D 400 IU TAB PO SCH ×2 (09:17→20:37)
[2018-12-04] MEDS: ASCORBIC ACID 500 MG TAB PO SCH (09:18)
[2018-12-04] MEDS: MULTIVITAMIN TAB PO SCH (09:18)
[2018-12-04] MEDS: LACTOBACILLUS ACIDOPHILUS (FLORANEX) TAB PO SCH ×4 (09:18→20:37)
[2018-12-04] MEDS: INSULIN GLARGINE SOLOSTAR 100 UNITS/ML 3 ML PEN SC SCH ×2 (09:19→20:38)
[2018-12-04] MEDS: INSULIN ASPART 100 UNITS/ML 3 ML PEN SC SCH ×4 (09:20→20:38)
--- NOTE | 2018-12-04 09:31 | Pulmonology Progress Note ---
Date of Service December 04, 2018 Assessment & Plan (1) Acute exacerbation of bronchiectasis: Her sputum cultures are now growing gram-negative rods, few GPC's and a few grams-positive rods. Awaiting organism identification and sensitivity. Day #3 cefepime. Continue for now. Antibiotic's will be adjusted based on results of culture data. Reinstitution of nebulized tobramycin may be beneficial. Continue aggressive pulmonary toilet including percussive therapy, hypertonic saline, and flutter valve. Patient will likely require 2 weeks of IV antibiotics given failure of outpatient therapy. She does have a port in place. (2) CVID (common variable immunodeficiency): Immunoglobulins look to be relatively normal aside for low IgM. She shoul d follow-up with allergy medicine regarding her IVIG. (3) Acute and chronic respiratory failure: Continue oxygen as needed to maintain sats of 88% or greater. Continue trilogy at night for her chronic hypercapnic respiratory failure. (4) Right-sided chest pain: Subjective Patient feels somewhat improved today. She states her cough is now productive. She is expectorating small amounts of phlegm. No hemoptysis. No fevers chills or night sweats. She is tolerating a diet. Review of Systems Constitutional: no fever, no chills, no sweats, no fatigue and no weight loss Ear, Nose, Mouth, Throat: no nasal congestion, no nasal discharge and no epistaxis Respiratory: no cough, no dyspnea and no hemoptysis Cardiovascular: no chest pain with activity, no palpitations and no edema Gastrointestinal: no abdominal pain, no nausea, no vomiting and no dysphagia Musculoskeletal: no joint pain and no myalgia Integumentary: no rash and no lesions Neurologic: no generalized weakness, no tingling, no paresthesia, no dizziness and no syncope Psychiatric: no anxiety Endocrine: no polydipsia and no cold intolerance Hematologic / Lymphatic: no easy bleeding and no lymphadenopathy Physical Exam Constitutional: WD/WN, vitals as above Neck: trachea midline, no thyromegaly Respiratory: Few wheezes bilaterally. Cardiovascular: RRR, no murmur, no edema Gastrointestinal (Abdomen): normal bowel sounds, soft, nontender, no hepatosplenomegaly Musculoskeletal: Extremities: extremities normal to inspection Skin: no rashes, warm and dry Neurologic: Nonfocal exam Lymphatic: no cervical lymphadenopathy Results & Data Vital Signs (Past 12 Hours) Vital Signs Temp Pulse Pulse Resp BP BP Pulse Ox 12/04/18 07:41 36.8 C 111 H 20 123/67 91 12/04/18 07:37 36.7 C 80 20 163/73 H 96 12/04/18 07:03 108 H 18 96 12/04/18 02:25 36.5 C 88 18 124/63 94 12/04/18 01:22 77 17 97 12/04/18 01:21 77 17 96 12/03/18 23:03 36.4 C L 105 H 16 124/81 100 12/03/18 22:03 101 H 24 97 Laboratory Results 12/01/18 06:40 12/04/18 07:00 Microbiology 12/02/18 14:50 Sputum, Expectorated Gram Stain - Final 12/02/18 14:50 Sputum, Expectorated Sputum Culture - Preliminary Pin-point growth present, reincubating. 12/01/18 06:03 Sputum, Expectorated Gram Stain - Final 12/01/18 06:03 Sputum, Expectorated Sputum Culture - Preliminary Gram negative bacilli 11/30/18 16:14 Blood Aerobic Blood Culture - Preliminary No growth in Aerobic bottle after 48 hours. 11/30/18 16:14 Blood Anaerobic Blood Culture - Preliminary No growth in Anaerobic bottle after 48 hours. 11/30/18 16:15 Blood Aerobic Blood Culture - Preliminary No growth in Aerobic bottle after 48 hours. 11/30/18 16:15 Blood Anaerobic Blood Culture - Preliminary No growth in Anaerobic bottle after 48 hours. PG Care Time/CCT Total # of Minutes Spent Total Time Spent with Patient: Total time spent is greater than 50% in coordination of care (as documented) at patient's floor/unit and/or counseling patient:
[2018-12-04] MEDS: FOLIC ACID 1 MG TAB PO SCH (20:37)
[2018-12-04] MEDS: ENOXAPARIN INJ 40 MG/0.4 ML SYR SQ SCH (20:42)
--- NOTE | 2018-12-04 23:00 | Hospitalist Progress Note ---
Date of Service December 04, 2018 Assessment & Plan (1) Acute and chronic respiratory failure: Acute on chronic hypoxic respiratory failure. Underlying COPD and bronchiectasis. Titrate supplemental oxygen. BiPAP support as necessary. (2) COPD (chronic obstructive pulmonary disease): Exacerbation secondary to bronchiectasis. Continue steroids and bronchodilators. (3) Acute exacerbation of bronchiectasis: CT demonstrated bronchiectasis. Sputum growing gram negative rods. Receiving intravenous cefepime and steroids. Change prednisone to HS per pt's request. Continue pulmonary toilet. (4) Right-sided chest pain: CTA chest negative for pulmonary embolism. Resolved. (5) Mediastinal adenopathy: Noted on current and previous CT, unchanged. (6) Prolonged Q-T interval on ECG: Admission EKG showed QTC of 546 ms. Recently received levofloxacin; also on sertraline. Repeat QTc 12/01 was 386 ms. 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 Follow blood sugars and adjust insulin therapy as necessary. (8) Hypogammaglobulinemia: Receives immunoglobulin infusions monthly. (9) Diarrhea: Several loose stools over last 24 hours. Prior history of C diff. Receiving probiotics. Stool 12/03 C diff PCR negative. Improved. (10) Arrhythmia: Had 22 beat run of wide-complex tachycardia morning of 12/03, asymptomatic. Suspect AF with aberrancy. Lytes normal. Continue cardiac monitoring. (11) DVT prophylaxis: SQ enoxaparin. Ambulate as able. (12) Discharge planning issues: Anticipated discharge to home. Medical follow-up with SHMUEL Patel. Pulmonary Medicine follow-up with Dr. Lang and Baljinder Yen PA-C. Subjective Recheck for multiple problems. Patient seen in their room around 1500. Generally feels better, but fatigued. Cough improved and less productive. Less short of breath. No pleuritic chest pain. Diarrhea improved. Telemetry data reviewed; no further significant arrhythmias. Prefers to take her prednisone HS. Review of Systems: Constitutional- no fever. Cardiac- no anginal symptoms. Pulmonary- as noted above. GI- diarrhea improved; no nausea, vomiting, melena, hematochezia. - no urinary symptoms. Otherwise, as noted above. Physical Exam Constitutional: no acute distress Eyes: + anicteric sclerae ENMT: Mouth: no tongue abnormality (no apparent thrush) Neck: trachea midline, no thyromegaly Respiratory: no respiratory distress and does not use accessory muscles Auscultation: + rhonchi and + wheezes Cardiovascular: Rate/Rhythm: regular rate and regular rhythm Heart Sounds: no gallop, no murmur and no cardiac rub Vessels: no JVD Extremities: no calf tenderness and no edema Gastrointestinal (Abdomen): normal bowel sounds, soft, nontender, no hepatosplenomegaly Skin: no rashes, warm and dry Psychiatric: Orientation: alert and oriented x 3 Results & Data Vital Signs (Past 12 Hours) Vital Signs Temp Pulse Resp BP Pulse Ox 12/04/18 19:11 81 20 96 12/04/18 15:31 36.6 C 83 18 110/64 95 12/04/18 13:31 81 20 94 12/04/18 11:22 36.9 C 88 20 119/64 98 Laboratory Results 12/01/18 06:40 12/04/18 07:00 Microbiology 12/02/18 14:50 Sputum, Expectorated Gram Stain - Final 12/02/18 14:50 Sputum, Expectorated Sputum Culture - Preliminary Gram negative bacilli 12/01/18 06:03 Sputum, Expectorated Gram Stain - Final 12/01/18 06:03 Sputum, Expectorated Sputum Culture - Preliminary Gram negative bacilli 11/30/18 16:14 Blood Aerobic Blood Culture - Preliminary No growth in Aerobic bottle after 48 hours. 11/30/18 16:14 Blood Anaerobic Blood Culture - Preliminary No growth in Anaerobic bottle after 48 hours. 11/30/18 16:15 Blood Aerobic Blood Culture - Preliminary No growth in Aerobic bottle after 48 hours. 11/30/18 16:15 Blood Anaerobic Blood Culture - Preliminary No growth in Anaerobic bottle after 48 hours. (1) COPD (chronic obstructive pulmonary disease) COPD type: unspecified COPD Qualified Code(s): J44.9 - Chronic obstructive pulmonary disease, unspecified
[2018-12-05] MEDS: CEFEPIME 2,000 MG in SYRINGE 7.5 ML IV SCH ×3 (00:29→16:36)
[2018-12-05] MEDS: ALBUT/IPRATROP 3MG/0.5MG NEB 3 ML VIAL NEB SCH ×4 (01:10→19:10)
[2018-12-05 06:48] LABS: BUN Creatinine Ratio 30.7 (10-20); Calcium 9.6 mg/dl (8.5-10.1); Est GFR (African American) 117.3; Est GFR (Non-African American) 101.2; Potassium 4.6 mmol/L (3.5-5.1)
[2018-12-05] MEDS: SODIUM CHLOR 7% 4 ML NEB INH SCH ×2 (07:13→19:10)
[2018-12-05] MEDS: LACTOBACILLUS ACIDOPHILUS (FLORANEX) TAB PO SCH ×4 (08:38→20:33)
[2018-12-05] MEDS: MULTIVITAMIN TAB PO SCH (08:39)
[2018-12-05] MEDS: METOPROLOL SUCC 50MG EXT REL TAB PO SCH (08:39)
[2018-12-05] MEDS: CYANOCOBALAMIN 500 MCG TABLET (VITAMIN B-12) PO SCH (08:39)
[2018-12-05] MEDS: PANTOprazole 40 MG TAB PO SCH (08:39)
[2018-12-05] MEDS: CALCIUM 600MG + VIT D 400 IU TAB PO SCH ×2 (08:40→20:32)
[2018-12-05] MEDS: INSULIN GLARGINE SOLOSTAR 100 UNITS/ML 3 ML PEN SC SCH ×2 (08:40→20:36)
[2018-12-05] MEDS: ASCORBIC ACID 500 MG TAB PO SCH (08:40)
[2018-12-05] MEDS: MAGNESIUM OXIDE 400 MG TAB PO SCH (08:40)
[2018-12-05] MEDS: INSULIN ASPART 100 UNITS/ML 3 ML PEN SC SCH ×4 (08:41→20:35)
--- NOTE | 2018-12-05 09:51 | Pulmonology Progress Note ---
Date of Service December 05, 2018 Assessment & Plan (1) Acute exacerbation of bronchiectasis: Her sputum cultures are now growing gram-negative rods, few GPC's and a few grams-positive rods. Awaiting organism identification and sensitivity. Day #4 cefepime. Continue for now. Antibiotic's will be adjusted based on results of culture data. Reinstitution of nebulized tobramycin may be beneficial but will hold pending identification of organism. Continue aggressive pulmonary toilet including percussive therapy, hypertonic saline, and flutter valve. Patient will likely require 2 weeks of IV antibiotics given failure of outpatient therapy. She does have a port in place and has used home IV infusion therapy previously. Once the organism is identified the patient appears to be clinically stable and appropriate outpatient plan is in place, patient may be dismissed from the hospital with close outpatient pulmonary follow-up with Dr. Lang. (2) CVID (common variable immunodeficiency): Immunoglobulins look to be relatively normal aside for low IgM. She should follow-up with allergy medicine regarding her IVIG. (3) Acute and chronic respiratory failure: Continue oxygen as needed to maintain sats of 88% or greater. Continue trilogy at night for her chronic hypercapnic respiratory failure. (4) Right-sided chest pain: Subjective Patient feels well. She is not expectorating any significant phlegm. No fevers chills or night sweats overnight. She feels like her energy levels improving. She is wheezing less. She is tolerating a diet. She is comfortable watching movies in bed. Physical Exam Constitutional: WD/WN, vitals as above Neck: trachea midline, no thyromegaly Cardiovascular: RRR, no murmur, no edema Gastrointestinal (Abdomen): normal bowel sounds, soft, nontender, no hepatosplenomegaly Musculoskeletal: Extremities: extremities normal to inspection Skin: no rashes, warm and dry Lymphatic: no cervical lymphadenopathy Results & Data Vital Signs (Past 12 Hours) Vital Signs Temp Pulse Pulse Resp BP BP Pulse Ox 12/05/18 07:21 36.6 C 87 22 126/74 96 12/05/18 07:16 87 20 96 12/05/18 03:39 36.7 C 98 H 19 116/70 95 12/05/18 01:12 80 20 97 12/05/18 00:00 36.8 C 76 91 H 20 123/71 94 Laboratory Results 12/01/18 06:40 12/05/18 05:47 Microbiology 12/02/18 14:50 Sputum, Expectorated Gram Stain - Final 12/02/18 14:50 Sputum, Expectorated Sputum Culture - Preliminary Gram negative bacilli 12/01/18 06:03 Sputum, Expectorated Gram Stain - Final 12/01/18 06:03 Sputum, Expectorated Sputum Culture - Preliminary Gram negative bacilli 11/30/18 16:14 Blood Aerobic Blood Culture - Preliminary No growth in Aerobic bottle after 48 hours. 11/30/18 16:14 Blood Anaerobic Blood Culture - Preliminary No growth in Anaerobic bottle after 48 hours. 11/30/18 16:15 Blood Aerobic Blood Culture - Preliminary No growth in Aerobic bottle after 48 hours. 11/30/18 16:15 Blood Anaerobic Blood Culture - Preliminary No growth in Anaerobic bottle after 48 hours. PG Care Time/CCT Total # of Minutes Spent Total Time Spent with Patient: Total time spent is greater than 50% in coordination of care (as documented) at patient's floor/unit and/or counseling patient:
[2018-12-05] MEDS: predniSONE 20 MG TAB PO SCH (20:33)
[2018-12-05] MEDS: FOLIC ACID 1 MG TAB PO SCH (20:33)
[2018-12-05] MEDS: ENOXAPARIN INJ 40 MG/0.4 ML SYR SQ SCH (20:38)
--- NOTE | 2018-12-05 22:19 | Hospitalist Progress Note ---
Date of Service December 05, 2018 Assessment & Plan (1) Acute and chronic respiratory failure: Acute on chronic hypoxic respiratory failure. Underlying COPD and bronchiectasis. Titrate supplemental oxygen. BiPAP support as necessary. (2) COPD (chronic obstructive pulmonary disease): Exacerbation secondary to bronchiectasis. Continue steroids and bronchodilators. (3) Acute exacerbation of bronchiectasis: CT demonstrated bronchiectasis. Sputum growing gram negative rods. Receiving intravenous cefepime and steroids. Changed prednisone to HS per pt's request. Continue pulmonary toilet. (4) Right-sided chest pain: CTA chest negative for pulmonary embolism. Resolved. (5) Mediastinal adenopathy: Noted on current and previous CT, unchanged. (6) Prolonged Q-T interval on ECG: Admission EKG showed QTC of 546 ms. Recently received levofloxacin; also on sertraline. Repeat QTc 12/01 was 386 ms. (7) Steroid-induced diabetes: FBS = 162. Blood sugar this afternoon down to 85. Follow blood sugars and adjust insulin therapy as necessary. (8) Hypogammaglobulinemia: Receives immunoglobulin infusions monthly. (9) Diarrhea: Several loose stools over last 24 hours. Prior history of C diff. Receiving probiotics. Stool 12/03 C diff PCR negative. Improved. (10) Arrhythmia: Had 22 beat run of wide-complex tachycardia morning of 12/03, asymptomatic. Suspect AF with aberrancy. Lytes normal. Continue cardiac monitoring. (11) DVT prophylaxis: SQ enoxaparin. Ambulate as able. (12) Discharge planning issues: Anticipated discharge to home. Medical follow-up with SHMUEL Patel. Pulmonary Medicine follow-up with Dr. Lang and Baljinder Yen PA-C. Subjective Recheck for multiple problems. Patient seen in their room around 1620. Feels better today. Cough less productive, sputum clearer. Less short of breath. No pleuritic chest pain. Diarrhea improved. Telemetry data reviewed; no further significant arrhythmias. Review of Systems: Constitutional- no fever. Cardiac- no anginal symptoms. Pulmonary- as noted above. GI- diarrhea improved; no nausea, vomiting, melena, hematochezia. - no urinary symptoms. Otherwise, as noted above. Physical Exam Constitutional: no acute distress Eyes: + anicteric sclerae ENMT: Mouth: no tongue abnormality (no apparent thrush) Neck: trachea midline, no thyromegaly Respiratory: no respiratory distress and does not use accessory muscles Auscultation: + rhonchi and + wheezes Cardiovascular: Rate/Rhythm: regular rate and regular rhythm Heart Sounds: no gallop, no murmur and no cardiac rub Vessels: no JVD Extremities: no calf tenderness and no edema Gastrointestinal (Abdomen): normal bowel sounds, soft, nontender, no hepatosplenomegaly Skin: no rashes, warm and dry Psychiatric: Orientation: alert and oriented x 3 Results & Data Vital Signs (Past 12 Hours) Vital Signs Temp Pulse Resp BP BP Pulse Ox 12/05/18 19:52 37 C 82 18 123/69 93 12/05/18 19:11 87 16 98 12/05/18 15:25 36.5 C 79 20 112/85 92 12/05/18 13:11 90 18 91 12/05/18 11:14 36.9 C 88 22 125/70 94 Laboratory Results 12/01/18 06:40 12/05/18 05:47 (1) COPD (chronic obstructive pulmonary disease) COPD type: unspecified COPD Qualified Code(s): J44.9 - Chronic obstructive pulmonary disease, unspecified
[2018-12-06] MEDS: CEFEPIME 2,000 MG in SYRINGE 7.5 ML IV SCH ×4 (00:12→23:32)
[2018-12-06] MEDS: ALBUT/IPRATROP 3MG/0.5MG NEB 3 ML VIAL NEB SCH ×4 (01:17→20:02)
[2018-12-06 06:45] LABS: Hematocrit (blood only) 33.6 % (37-47); Hemoglobin 10.1 g/dL (12.0-16.0); Mean Corpuscular Hemoglobin 25.6 pg (25-34); Mean Corpuscular Hgb Conc 30.1 g/dL (32-36); Mean Corpuscular Volume 85.3 fL (80-100); Mean Platelet Volume 8.7 fL (7.4-10.4); Platelet Count 240 K/uL (130-400); RDW Standard Deviation 49.7 fL (36.4-46.3); Red Blood Count 3.94 M/uL (4.2-5.4); White Blood Count 10.24 K/uL (4.8-10.8)
[2018-12-06] MEDS: SODIUM CHLOR 7% 4 ML NEB INH SCH ×2 (06:58→20:04)
[2018-12-06 07:24] LABS: BUN Creatinine Ratio 32.8 (10-20); Calcium 9.7 mg/dl (8.5-10.1); Creatinine Clr Calc Pharmacy 74.4 ml/min; Est GFR (African American) 96.3; Est GFR (Non-African American) 83.1; Potassium 4.7 mmol/L (3.5-5.1)
[2018-12-06] MEDS: CALCIUM 600MG + VIT D 400 IU TAB PO SCH ×2 (07:47→20:34)
[2018-12-06] MEDS: LACTOBACILLUS ACIDOPHILUS (FLORANEX) TAB PO SCH ×4 (07:48→20:34)
[2018-12-06] MEDS: INSULIN ASPART 100 UNITS/ML 3 ML PEN SC SCH ×4 (07:49→20:35)
[2018-12-06] MEDS: INSULIN GLARGINE SOLOSTAR 100 UNITS/ML 3 ML PEN SC SCH ×2 (07:52→20:33)
[2018-12-06] MEDS: MULTIVITAMIN TAB PO SCH (09:34)
[2018-12-06] MEDS: ASCORBIC ACID 500 MG TAB PO SCH (09:34)
[2018-12-06] MEDS: PANTOprazole 40 MG TAB PO SCH (09:35)
[2018-12-06] MEDS: METOPROLOL SUCC 50MG EXT REL TAB PO SCH (09:35)
[2018-12-06] MEDS: CYANOCOBALAMIN 500 MCG TABLET (VITAMIN B-12) PO SCH (09:35)
[2018-12-06] MEDS: MAGNESIUM OXIDE 400 MG TAB PO SCH (09:35)
--- NOTE | 2018-12-06 11:38 | Hospitalist Progress Note ---
Date of Service December 06, 2018 Assessment & Plan (1) Acute and chronic respiratory failure: (2) COPD (chronic obstructive pulmonary disease): (3) Acute exacerbation of bronchiectasis: Possible related to COPD exacerbation and bronchiectasis. CTA chest showed severe bilateral varicoid bronchiectasis with multifocal mucus plugging, air trapping, tree-in-bud nodules with subpleural reticulation and scattered subpleural predominant consolidation. No evidence of pulmonary thromboembolic disease. CXR showed stable diffuse bilateral parenchymal infiltrative and interstitial change. Sputum cx growing gram negative rods (Stenotrophomonas) Pulmonary on board recommended to continue IV abx for 2 weeks given failure of outpatient therapy. On prednisone, nebulizer treatment and cefepime Continue trilogy at night for her chronic hypercapnic respiratory failure. Case discussed with pulmonology Dr. Lang Will need to follow pulmonology outpatient (4) Right-sided chest pain: CTA chest negative for pulmonary embolism. Resolved. (5) Mediastinal adenopathy: Noted on current and previous CT, unchanged. (6) Prolonged Q-T interval on ECG: Admission EKG showed QTC of 546 ms. Will avoid medication that increase QTC such as levofloxacin Sertraline on hold Repeat QTc 12/01 was 386 ms. 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 (9) Diarrhea: Stool 12/03 for C diff PCR negative. Diarrhea improves Monitor electrolytes (10) Arrhythmia: Had 22 beat run of wide-complex tachycardia morning of 12/03, asymptomatic. Suspect AF with aberrancy. Stable (11) DVT prophylaxis: SQ enoxaparin. Ambulate as able. (12) Discharge planning issues: Anticipated discharge to home. Medical follow-up with SHMUEL Patel. Pulmonary Medicine follow-up with Dr. Lang and Baljinder Yen PA-C. Subjective Pt was seen and examined Sitting in bed with no distress playing angry bird in her tablet Pt said that she feels much better today She said that she is on chronic oxygen supplement Denies any chest pain, palpitation, dizziness and fever Physical Exam Physical Exam: General- No acute distress Head- atraumatic Eyes- PERRL, EOMI, ENT- oropharynx clear Neck- supple, no JVD Lungs- diminished BS Heart- regular rhythm; no murmur Abdomen- normal bowel sounds, soft, nontender Extremities- no calf tenderness Neuro- alert, oriented x 3; PERRL, EOMI; no facial palsy; no dysarthria Skin- warm & dry Results & Data Vital Signs (Past 12 Hours) Vital Signs Temp Pulse Resp BP BP Pulse Ox 12/06/18 11:15 36.9 C 96 H 18 111/68 93 12/06/18 09:33 103 H 118/78 12/06/18 07:17 36.4 C L 95 H 20 110/63 97 12/06/18 07:03 80 18 94 12/06/18 04:00 36.8 C 87 20 106/60 95 12/06/18 01:17 83 20 96 12/06/18 00:00 36.8 C 102 H 19 122/75 96 (1) COPD (chronic obstructive pulmonary disease) COPD type: unspecified COPD Qualified Code(s): J44.9 - Chronic obstructive pulmonary disease, unspecified
--- NOTE | 2018-12-06 16:29 | Progress Note ---
DATE: 12/06/2018 PULMONARY MEDICINE PROGRESS NOTE Chart reviewed, the patient examined. ASSESSMENT AND PLAN: A 58-year-old with severe bronchiectasis and acute on chronic hypoxic hypercarbic respiratory failure, was admitted on 11/30/2018 and was on treatment for exacerbation of her bronchiectasis with the usual bacterial etiology secondary to Stenotrophomonas maltophilia. She had been on Bactrim-DS for chronic suppression as an outpatient and we have tried her on inhaled JEFFERY (tobramycin) in the past, but her insurance would not cover the treatment. She also suffers from common variable immunodeficiency and has been on IVIG therapy in the past. Dr. Hall saw patient in consultation, I referred to his latest note on 12/05/2018. Today, she was visited by myself and her sister was in attendance. She was sitting up in bed, feeling much improved, mildly congested and not particularly claiming to go home. PHYSICAL EXAMINATION: VITAL SIGNS: 132/70 blood pressure, pulse 91 and regular, respiratory rate 18, temperature 36.6, O2 sat 95% on 3 liters. SKIN: Without lesion. HEENT: Atraumatic, normocephalic. PERRLA. EOMI. Conjunctivae pale. Sclerae nonicteric. Fundi poorly visualized. NECK: Neck veins not distended at 45 degrees. LUNGS: Distant to P and A, scattered rhonchi with rales at the bases. CARDIAC: Regular rhythm. I do not appreciate a gallop. ABDOMEN: Soft, protuberant. EXTREMITIES: Trace pedal edema. No clubbing. Peripheral cyanosis. NEUROLOGIC: Intact. No lateralizing signs. LABORATORY DATA: The sputum grew Stenotrophomonas maltophilia, interesting bronchial washings on 11/14/2018 grew out moderate normal pavan, but patient was on Levaquin therapy at that time. CTA on admission was reviewed and compared to previous films of 12/17/2017 and 10/23/2018 showing severe bilateral varicoid bronchiectasis with multifocal mucus plugging air trapping tree-in-bud nodules with subpleural reticulation and scattered subpleural consolidation, chronic aspiration cannot be ruled out. Mild wall thickening throughout the esophagus was noted. 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 The patient has been placed on IV cefepime. Would continue IV antibiotics and consider discharge possibly this weekend. Would continue Bactrim-DS and would even consider inhaled JEFFERY 14 days on and 14 days off at 300 mg per 5 mL b.i.d. treatment and will see if we can get her insurance to cover for outpatient therapy as well. We will follow along with you. Overall prognosis is poor. MTDD
[2018-12-06] MEDS: HEPARIN 100 UNIT/ML 5ML FLUSH FLUSH PRN (16:51)
[2018-12-06] MEDS: FOLIC ACID 1 MG TAB PO SCH (20:35)
[2018-12-06] MEDS: predniSONE 20 MG TAB PO SCH (20:36)
[2018-12-06] MEDS: ENOXAPARIN INJ 40 MG/0.4 ML SYR SQ SCH (21:45)
[2018-12-06] MEDS: SULFAMETHOXAZOLE/TRIMETHOPRIM DS 800/160MG TAB PO SCH (21:45)
[2018-12-07] MEDS: ALBUT/IPRATROP 3MG/0.5MG NEB 3 ML VIAL NEB SCH ×4 (01:01→19:00)
[2018-12-07] MEDS: TOBRAMYCIN SULFATE 300 MG in SYRINGE 0 ML INH SCH ×2 (06:53→19:17)
[2018-12-07] MEDS: SODIUM CHLOR 7% 4 ML NEB INH SCH ×2 (06:53→19:00)
[2018-12-07] MEDS: INSULIN ASPART 100 UNITS/ML 3 ML PEN SC SCH ×4 (07:47→20:33)
[2018-12-07] MEDS: INSULIN GLARGINE SOLOSTAR 100 UNITS/ML 3 ML PEN SC SCH ×2 (07:47→20:34)
[2018-12-07] MEDS: PANTOprazole 40 MG TAB PO SCH (07:48)
[2018-12-07] MEDS: LACTOBACILLUS ACIDOPHILUS (FLORANEX) TAB PO SCH ×4 (07:49→20:35)
[2018-12-07] MEDS: ASCORBIC ACID 500 MG TAB PO SCH (07:49)
[2018-12-07] MEDS: CALCIUM 600MG + VIT D 400 IU TAB PO SCH ×2 (07:49→20:35)
[2018-12-07] MEDS: MULTIVITAMIN TAB PO SCH (07:49)
[2018-12-07] MEDS: METOPROLOL SUCC 50MG EXT REL TAB PO SCH (07:49)
[2018-12-07] MEDS: CYANOCOBALAMIN 500 MCG TABLET (VITAMIN B-12) PO SCH (07:49)
[2018-12-07] MEDS: MAGNESIUM OXIDE 400 MG TAB PO SCH (07:49)
[2018-12-07] MEDS: CEFEPIME 2,000 MG in SYRINGE 7.5 ML IV SCH ×3 (07:50→23:21)
[2018-12-07] MEDS: SULFAMETHOXAZOLE/TRIMETHOPRIM DS 800/160MG TAB PO SCH ×2 (07:50→20:36)
--- NOTE | 2018-12-07 11:43 | Progress Note ---
DATE: 12/07/2018 PULMONARY MEDICINE PROGRESS NOTE TIME: 0900 hours. Chart reviewed, the patient examined. HISTORY OF PRESENT ILLNESS: A 58-year-old with severe bronchiectasis with presentation of [id number] hypoxic and hypercarbic respiratory failure and exacerbation of her underlying bronchiectasis. Seems stable. She has been reading in bed and does not appear to be in any distress. She had been on Bactrim-DS for chronic suppression as an outpatient. She receives IVIG therapy for common variable immunodeficiency syndrome. She feels her sputum is less pronounced and less purulent. PHYSICAL EXAMINATION: VITAL SIGNS: Today are blood pressure 116/72, pulse 94 and regular, respiratory rate 20, temperature 36.4, O2 sat 92% on 3 liters. SKIN: Without lesion. HEENT: Atraumatic, normocephalic. PERRLA. LUNGS: Scattered wheeze right base, otherwise distant P and with rales at both bases. CARDIAC: Regular rate and rhythm. I do not appreciate a gallop. ABDOMEN: Soft, protuberant. EXTREMITIES: No significant pedal edema, clubbing, or cyanosis. NEUROLOGIC: Intact. No lateralizing signs. LABORATORY DATA: Yesterday's white count was 10,000, H and H 10.1 and 33.6. She has hypochromic microcytic indices. IgG level a week ago was 1350. Sputum has grown out Stenotrophomonas maltophilia although bronchial cultures were growing only normal apvan. The organisms appear still to be sensitive to Bactrim, but resistant to IV ceftazidime and levofloxacin. OVERALL ASSESSMENT AND PLAN: A 58-year-old with severe chronic bronchiectasis with an exacerbation and chronic colonization with Stenotrophomonas maltophilia. Unfortunately, this remains a very difficult problem to treat and I am not sure continuous intravenous antibiotics will accomplish much more than we have accomplished to date. She is receiving vigorous pulmonary toilet in the form of percussive therapy, hypertonic saline, and flutter valve. She is no longer hypogammaglobulinemic and seems to be responding to current therapy. She continues on IV cefepime. Given that she failed outpatient therapy, it might very well require of us to administer 2 weeks of IV antibiotics as she does have a port in place. She was begun on 12/02/2018. We are on day #6 of IV antibiotics in the form of cefepime. I probably would go an additional 8 days and then put her back on Bactrim suppression. It could be arranged for her to receive additional IV antibiotics at home. I will leave that up to the primary hospitalist service along with continuing her pulmonary toilet and slow taper of her steroid therapy. Her overall prognosis remains poor.
--- NOTE | 2018-12-07 14:01 | Hospitalist Progress Note ---
Date of Service December 07, 2018 Assessment & Plan (1) Acute and chronic respiratory failure: Acute on chronic hypoxic respiratory failure. Underlying COPD and bronchiectasis. Titrate supplemental oxygen. BiPAP support as necessary. (2) COPD (chronic obstructive pulmonary disease): Exacerbation secondary to bronchiectasis. Continue steroids and bronchodilators. (3) Acute exacerbation of bronchiectasis: Possible related to COPD exacerbation and bronchiectasis. CTA chest showed severe bilateral varicoid bronchiectasis with multifocal mucus plugging, air trapping, tree-in-bud nodules with subpleural reticulation and scattered subpleural predominant consolidation. No evidence of pulmonary thromboembolic disease. CXR showed stable diffuse bilateral parenchymal infiltrative and interstitial change. Sputum cx growing gram negative rods (Stenotrophomonas) Pulmonary on board recommended to continue IV abx for 2 weeks given failure of outpatient therapy. On prednisone, nebulizer treatment and cefepime Continue trilogy at night for her chronic hypercapnic respiratory failure. Case discussed with pulmonology Dr. Lang recommended to continue IV ax when discharge for an additional week, then will transition to Bactrim suppression. Will need slow taper prednisone Continue Tobramycin inhaler for now (script given to case mgr to check if insurance will cover it) Will need to follow pulmonology outpatient (4) Right-sided chest pain: CTA chest negative for pulmonary embolism. Resolved. (5) Mediastinal adenopathy: Noted on current and previous CT, unchanged. (6) Prolonged Q-T interval on ECG: Admission EKG showed QTC of 546 ms. Will avoid medication that increase QTC such as levofloxacin Sertraline on hold Repeat QTc 12/01 was 386 ms. 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 (9) Diarrhea: Stool 12/03 for C diff PCR negative. Diarrhea improves Monitor electrolytes (10) Arrhythmia: Had 22 beat run of wide-complex tachycardia morning of 12/03, asymptomatic. Suspect AF with aberrancy. Stable (11) DVT prophylaxis: SQ enoxaparin. Ambulate as able. (12) Discharge planning issues: Anticipated discharge to home tomorrow Medical follow-up with SHMUEL Patel. Pulmonary Medicine follow-up with Dr. Lang and Baljinder Yen PA-C. Subjective Pt was seen and examined Sitting in bed with no distress Pt said that she is doing much better compare to when she came Denies any chest pain, palpitation, dizziness and SOB Physical Exam Physical Exam: General- No acute distress Head- atraumatic Eyes- PERRL, EOMI, ENT- oropharynx clear Neck- supple, no JVD Lungs- diminished BS, faint wheezing Heart- regular rhythm; no murmur Abdomen- normal bowel sounds, soft, nontender Extremities- no calf tenderness Neuro- alert, oriented x 3; PERRL, EOMI; no facial palsy; no dysarthria Skin- warm & dry Results & Data Vital Signs (Past 12 Hours) Vital Signs Temp Pulse Resp BP Pulse Ox 12/07/18 13:17 98 H 16 96 12/07/18 11:08 36.9 C 100 H 20 117/70 93 12/07/18 07:18 36.4 C L 94 H 20 116/72 92 12/07/18 06:53 101 H 18 92 12/07/18 03:13 36.4 C L 91 H 19 100/55 L 92 (1) COPD (chronic obstructive pulmonary disease) COPD type: unspecified COPD Qualified Code(s): J44.9 - Chronic obstructive pulmonary disease, unspecified
[2018-12-07] MEDS: predniSONE 20 MG TAB PO SCH (20:36)
[2018-12-07] MEDS: FOLIC ACID 1 MG TAB PO SCH (20:36)
[2018-12-07] MEDS: ENOXAPARIN INJ 40 MG/0.4 ML SYR SQ SCH (20:36)
[2018-12-08] MEDS: ALBUT/IPRATROP 3MG/0.5MG NEB 3 ML VIAL NEB SCH ×4 (01:06→19:22)
[2018-12-08] MEDS: TOBRAMYCIN SULFATE 300 MG in SYRINGE 0 ML INH SCH ×2 (07:00→19:22)
[2018-12-08] MEDS: SODIUM CHLOR 7% 4 ML NEB INH SCH ×2 (07:01→19:22)
[2018-12-08] MEDS: MAGNESIUM OXIDE 400 MG TAB PO SCH (08:23)
[2018-12-08] MEDS: LACTOBACILLUS ACIDOPHILUS (FLORANEX) TAB PO SCH ×4 (08:23→20:58)
[2018-12-08] MEDS: CALCIUM 600MG + VIT D 400 IU TAB PO SCH ×2 (08:24→20:58)
[2018-12-08] MEDS: METOPROLOL SUCC 50MG EXT REL TAB PO SCH (08:24)
[2018-12-08] MEDS: PANTOprazole 40 MG TAB PO SCH (08:24)
[2018-12-08] MEDS: ASCORBIC ACID 500 MG TAB PO SCH (08:24)
[2018-12-08] MEDS: INSULIN GLARGINE SOLOSTAR 100 UNITS/ML 3 ML PEN SC SCH ×2 (08:24→20:59)
[2018-12-08] MEDS: CYANOCOBALAMIN 500 MCG TABLET (VITAMIN B-12) PO SCH (08:24)
[2018-12-08] MEDS: MULTIVITAMIN TAB PO SCH (08:24)
[2018-12-08] MEDS: INSULIN ASPART 100 UNITS/ML 3 ML PEN SC SCH ×4 (08:25→20:59)
--- NOTE | 2018-12-08 12:43 | Hospitalist Progress Note ---
Date of Service December 08, 2018 Assessment & Plan (1) Acute and chronic respiratory failure: (2) COPD (chronic obstructive pulmonary disease): (3) Acute exacerbation of bronchiectasis: Possible related to COPD exacerbation and bronchiectasis. CTA chest showed severe bilateral varicoid bronchiectasis with multifocal mucus plugging, air trapping, tree-in-bud nodules with subpleural reticulation and scattered subpleural predominant consolidation. No evidence of pulmonary thromboembolic disease. CXR showed stable diffuse bilateral parenchymal infiltrative and interstitial change. Sputum cx growing gram negative rods (Stenotrophomonas) Pulmonary on board recommended to continue IV abx for 2 weeks given failure of outpatient therapy. On prednisone, nebulizer treatment and cefepime Continue trilogy at night for her chronic hypercapnic respiratory failure. Case discussed with pulmonology Dr. Lang recommended to continue IV ax when discharge for an additional week, then will transition to Bactrim suppression. Will discharge on prednisone 20mg daily as per Dr. Lang ( He will evaluate her in the office for a slower taper) Continue Tobramycin inhaler for now (script given to protective services case worker to check if insurance will cover it) Will need to follow pulmonology outpatient (4) Right-sided chest pain: CTA chest negative for pulmonary embolism. Resolved. (5) Mediastinal adenopathy: Noted on current and previous CT, unchanged. (6) Prolonged Q-T interval on ECG: Admission EKG showed QTC of 546 ms. Will avoid medication that increase QTC such as levofloxacin Sertraline on hold Repeat QTc 12/01 was 386 ms. 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 (9) Diarrhea: Stool 12/03 for C diff PCR negative. Diarrhea improves Monitor electrolytes (10) Arrhythmia: Had 22 beat run of wide-complex tachycardia morning of 12/03, asymptomatic. Suspect AF with aberrancy. Stable (11) DVT prophylaxis: SQ enoxaparin. Ambulate as able. (12) Discharge planning issues: Anticipated discharge to home today if approves for outpatient IV infusion Medical follow-up with SHMUEL Patel on 12/13 @ 3:30 PM Pulmonary Medicine follow-up with Dr. Lang and Baljinder Yen PA-C. Subjective Pt was seen an examined Sitting in chair with no distress Pt said that she feels much better She said that her breathing is better Denies any chest garcia, palpitation and SOB Physical Exam Physical Exam: General- No acute distress Head- atraumatic Eyes- PERRL, EOMI, ENT- oropharynx clear Neck- supple, no JVD Lungs- diminished BS, faint wheezing Heart- regular rhythm; no murmur Abdomen- normal bowel sounds, soft, nontender Extremities- no calf tenderness Neuro- alert, oriented x 3; PERRL, EOMI; no facial palsy; no dysarthria Skin- warm & dry Results & Data Vital Signs (Past 12 Hours) Vital Signs Temp Pulse Resp BP Pulse Ox 12/08/18 11:48 37.3 C 100 H 20 126/75 92 12/08/18 07:30 36.4 C L 109 H 20 123/62 96 12/08/18 06:53 110 H 20 93 12/08/18 04:08 37.0 C 94 H 19 117/71 94 12/08/18 01:08 89 18 91 (1) COPD (chronic obstructive pulmonary disease) COPD type: unspecified COPD Qualified Code(s): J44.9 - Chronic obstructive pulmonary disease, unspecified
[2018-12-08] MEDS ORDERED: CEFEPIME 2,000 MG/20 ML VIAL IV SCH (14:02)
[2018-12-08] MEDS: CEFEPIME 2,000 MG in SYRINGE 7.5 ML IV SCH ×2 (14:23→23:14)
--- NOTE | 2018-12-08 14:48 | Progress Note ---
DATE: 12/08/2018 PULMONARY MEDICINE PROGRESS NOTE Chart reviewed, the patient examined. SUBJECTIVE: The patient is status quo and is eager to get home. I have spoken with Dr. Calderon and we are still working on trying to get inhaled Torito or tobramycin as an outpatient. Usually we reserve that treatment for pseudomonas tracheobronchitis or pneumonia, but other gram negatives are difficult to treat like Stenotrophomonas maltophilia are susceptible and can be treated with inhaled Torito. Additional 7-10 days of IV cefepime has been recommended and that will be administered as an outpatient. PHYSICAL EXAMINATION: VITAL SIGNS: Stable. SKIN: Without lesion. HEENT: Atraumatic, normocephalic. PERRLA. LUNGS: Scattered wheeze right base. CARDIAC: Regular rate rhythm. No murmurs or gallops. ABDOMEN: Soft, protuberant. EXTREMITIES: No pedal edema. ASSESSMENT: Severe chronic bronchiectasis with a presentation of acute on chronic hypoxic and hypercapnic respiratory failure. I also think utilizing a Trilogy unit at home could be advantageous for this patient as I believe she would qualify given her previous blood gas assessment. We can arrange for that as an outpatient.
[2018-12-08] MEDS: HEPARIN 100 UNIT/ML 5ML FLUSH FLUSH PRN (17:57)
[2018-12-08] MEDS: FOLIC ACID 1 MG TAB PO SCH (20:58)
[2018-12-08] MEDS: predniSONE 20 MG TAB PO SCH (21:03)
[2018-12-09] MEDS: ENOXAPARIN INJ 40 MG/0.4 ML SYR SQ SCH (00:20)
[2018-12-09] MEDS: ALBUT/IPRATROP 3MG/0.5MG NEB 3 ML VIAL NEB SCH ×2 (01:09→06:56)
[2018-12-09] MEDS: CEFEPIME 2,000 MG in SYRINGE 7.5 ML IV SCH (05:26)
[2018-12-09] MEDS: TOBRAMYCIN SULFATE 300 MG in SYRINGE 0 ML INH SCH (06:56)
[2018-12-09] MEDS: SODIUM CHLOR 7% 4 ML NEB INH SCH (06:57)
[2018-12-09] MEDS: LACTOBACILLUS ACIDOPHILUS (FLORANEX) TAB PO SCH (07:47)
[2018-12-09] MEDS: ASCORBIC ACID 500 MG TAB PO SCH (07:48)
--- NOTE | 2018-12-09 07:48 | Pulmonary Consultation ---
Date of Consultation December 09, 2018 History of Present Illness Attending Physician: Emiliana Calderon MD Allergies Allergy/AdvReac Type Severity Reaction Status Date / Time albuterol AdvReac Mild CHEST Verified 11/30/18 14:39 PAIN, LEVALBUTEROL OK oxycodone AdvReac Mild CAUSES Verified 11/30/18 14:39 DEPRESSION Home Medications Home Medications Medication Instructions Recorded Confirmed Type Caltrate 600-D Plus Minerals 1 tab PO BID 12/17/17 11/30/18 History Gammagard Liquid 0 mg/kg IV MONTHLY 12/17/17 11/30/18 History Probiotic 1 tab PO QPM 12/17/17 11/30/18 History acetaminophen 1,000 mg PO Q6H PRN 12/17/17 11/30/18 History ascorbic acid (vitamin C) 250 mg PO DAILY 12/17/17 11/30/18 History cyanocobalamin (vitamin B-12) 1,000 mcg PO DAILY 12/17/17 11/30/18 History folic acid 1 mg PO QPM 12/17/17 11/30/18 History guaifenesin 1,200 mg PO Q12H PRN 12/17/17 11/30/18 History hydrocortisone 2.5 mg PO HS 12/17/17 11/30/18 History hydrocortisone 10 mg PO QAM 12/17/17 11/30/18 History magnesium oxide 400 mg PO DAILY 12/17/17 11/30/18 History multivitamin 1 tab PO DAILY 12/17/17 11/30/18 History pantoprazole 40 mg PO DAILY 12/17/17 11/30/18 History sertraline 75 mg PO DAILY 12/17/17 11/30/18 History Breo Ellipta 1 inh INHALATION DAILY 04/21/18 11/30/18 History Novolog Flexpen U-100 Insulin See Rx Instructions .ROUTE .COMPLEX 04/21/18 11/30/18 History metoprolol succinate 50 mg PO DAILY 11/14/18 11/30/18 History albuterol sulfate HFA 90 2 puff INHALATION Q4 PRN gm 11/24/18 11/30/18 History mcg/actuation aerosol inhaler ipratropium bromide 0.02 % 2.5 ml INH Q4H PRN #150 ml 11/24/18 11/30/18 Rx solution for inhalation levalbuterol 1.25 mg/3 mL solution 1.25 mg INH Q4H PRN #90 ml 11/24/18 11/30/18 Rx for nebulization ipratropium-albuterol 3 ml INHALATION QID 11/30/18 11/30/18 History cefepime 2 gm IV Q8H 7 Days #14 ea 12/07/18 Rx tobramycin in 0.225 % NaCl 300 mg INH Q12H 10 Days #100 ml 12/07/18 Rx prednisone 20 mg PO DAILY #14 tab 12/08/18 Rx Patient History Medical History CVID (common variable immunodeficiency) (Chronic) Receives monthly IVIG infusions COPD (chronic obstructive pulmonary disease) (Chronic) Oxygen dependent (Chronic) "2L-4L" On 04/29/17 18:15 Maine Martínez wrote "4L" On 04/08/15 18:56 Adriana Morales wrote "2L" Steroid-induced diabetes (Chronic) BILL (obstructive sleep apnea) (Chronic) Depression (Chronic) Mild pulmonary hypertension (Chronic) 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) Anxiety (Chronic) Bronchiectasis (Chronic) GERD (gastroesophageal reflux disease) (Chronic) Hypogammaglobulinemia (Chronic) Hyperlipidemia (Chronic) Chronic respiratory failure (Chronic) Pneumomediastinum (Resolved) Pneumothorax (Resolved) Depression Hypogammaglobulinemia Surgical History H/O atrial septal defect repair (Resolved) H/O total shoulder replacement (Resolved) H/O: hysterectomy (Resolved) History of hysterectomy (Resolved) History of left hip replacement (Resolved) History of myringotomy (Resolved) History of right hip replacement (Resolved) Hx of appendectomy (Resolved) Hx of cholecystectomy (Resolved) Hx of tympanostomy tubes (Resolved) S/P bronchoscopy (Resolved) S/P section (Resolved) S/P sinus surgery (Resolved) S/P tonsillectomy and adenoidectomy (Resolved) Family History Father Aneurysm of abdominal aorta Mother Cervical ca Cancer Social History Preferred Language: Divehi Communication Ability: Effective [employer] Required: No Beliefs That Will Affect Care: None marital status: Current Living Situation: Alone current occupational status: disabled Feels Safe at Home: Yes Smoking Status: Never smoker Second Hand Exposure: No ; Hx Alcohol Use: No Hx Substance Use: No Results & Data Vital Signs (Past 12 Hours) Vital Signs Temp Pulse Pulse Resp BP BP Pulse Ox 12/09/18 07:13 36.8 C 93 H 19 123/70 94 12/09/18 06:57 101 H 20 97 12/09/18 03:47 37.2 C 82 19 110/68 95 12/09/18 01:09 96 H 16 97 12/08/18 23:30 97 H 12/08/18 23:16 37.1 C 92 H 19 105/58 L 94 12/08/18 19:52 36.4 C L 96 H 16 128/67 97 PG Care Time/CCT Total # of Minutes Spent Total Time Spent with Patient: Total time spent is greater than 50% in coordination of care (as documented) at patient's floor/unit and/or counseling patient:
[2018-12-09] MEDS: CYANOCOBALAMIN 500 MCG TABLET (VITAMIN B-12) PO SCH (07:49)
[2018-12-09] MEDS: CALCIUM 600MG + VIT D 400 IU TAB PO SCH (07:49)
[2018-12-09] MEDS: METOPROLOL SUCC 50MG EXT REL TAB PO SCH (07:49)
[2018-12-09] MEDS: MULTIVITAMIN TAB PO SCH (07:49)
[2018-12-09] MEDS: PANTOprazole 40 MG TAB PO SCH (07:49)
[2018-12-09] MEDS: MAGNESIUM OXIDE 400 MG TAB PO SCH (07:50)
[2018-12-09] MEDS: INSULIN GLARGINE SOLOSTAR 100 UNITS/ML 3 ML PEN SC SCH (07:51)
[2018-12-09] MEDS: INSULIN ASPART 100 UNITS/ML 3 ML PEN SC SCH (07:53)
--- NOTE | 2018-12-09 11:00 | Hospitalist Progress Note ---
Date of Service December 09, 2018 Assessment & Plan (1) Acute and chronic respiratory failure: (2) COPD (chronic obstructive pulmonary disease): (3) Acute exacerbation of bronchiectasis: Possible related to COPD exacerbation and bronchiectasis. CTA chest showed severe bilateral varicoid bronchiectasis with multifocal mucus plugging, air trapping, tree-in-bud nodules with subpleural reticulation and scattered subpleural predominant consolidation. No evidence of pulmonary thromboembolic disease. CXR showed stable diffuse bilateral parenchymal infiltrative and interstitial change. Sputum cx growing gram negative rods (Stenotrophomonas) Pulmonary on board recommended to continue IV abx for 2 weeks given failure of outpatient therapy. On prednisone, nebulizer treatment and cefepime Continue trilogy at night for her chronic hypercapnic respiratory failure. Case discussed with pulmonology Dr. Lang recommended to continue IV ax when discharge for an additional week, then will transition to Bactrim suppression. Will discharge on prednisone 20mg daily as per Dr. Lang ( He will evaluate her in the office for a slower taper) Continue Tobramycin inhaler (script given to director case and working to get it approved. Will need to follow pulmonology outpatient Continue oxygen supplement and Neb treatment (4) Right-sided chest pain: CTA chest negative for pulmonary embolism. Resolved. (5) Mediastinal adenopathy: Noted on current and previous CT, unchanged. (6) Prolonged Q-T interval on ECG: Admission EKG showed QTC of 546 ms. Will avoid medication that increase QTC such as levofloxacin Sertraline on hold Repeat QTc 12/01 was 386 ms. 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 (9) Diarrhea: Stool 12/03 for C diff PCR negative. Diarrhea improves Monitor electrolytes (10) Arrhythmia: Had 22 beat run of wide-complex tachycardia morning of 12/03, asymptomatic. Suspect AF with aberrancy. Stable (11) DVT prophylaxis: SQ enoxaparin. Ambulate as able. (12) Discharge planning issues: Anticipated discharge to home today if approves for outpatient IV infusion Medical follow-up with SHMUEL Patel on 12/13 @ 3:30 PM Pulmonary Medicine follow-up with Dr. Lang and Baljinder Yen PA-C. Subjective Pt was seen and examined Sitting in bed with no distress Pt said that she feels much better She said that she slept well She said that cough improves Denies any chest pain, palpitation and fever Physical Exam Physical Exam: General- No acute distress Head- atraumatic Eyes- PERRL, EOMI, ENT- oropharynx clear Neck- supple, no JVD Lungs- diminished BS Heart- regular rhythm; no murmur Abdomen- normal bowel sounds, soft, nontender Extremities- no calf tenderness Neuro- alert, oriented x 3; PERRL, EOMI; no facial palsy; no dysarthria Skin- warm & dry Results & Data Vital Signs (Past 12 Hours) Vital Signs Temp Pulse Pulse Resp BP BP Pulse Ox 12/09/18 07:13 36.8 C 93 H 19 123/70 94 12/09/18 06:57 101 H 20 97 12/09/18 03:47 37.2 C 82 19 110/68 95 12/09/18 01:09 96 H 16 97 12/08/18 23:30 97 H 12/08/18 23:16 37.1 C 92 H 19 105/58 L 94 (1) COPD (chronic obstructive pulmonary disease) COPD type: unspecified COPD Qualified Code(s): J44.9 - Chronic obstructive pulmonary disease, unspecified
--- NOTE | 2018-12-09 11:17 | Discharge Summary ---
Date of Service December 09, 2018 Admission HPI Per Admitting Provider Pt is 58 y/o F with PMH bronchiectasis, COPD, chronic respiratory failure on 2.5-4L oxygen and Trilogy HS and prn, CVID, steroid induced diabetes, BILL, depression, pulmonary HTN, GERD, sinus tachycardia presented to ER from pulmonology office for respiratory distress. She reports past couple of days with increased SOB and increased yellow sputum production. She reports right rib and back pain aggravated with inspiration. Denies fever/chills, hemoptysis. Pt states today needed oxygen at 5L to help with SOB and reported at pulm office needed to titrate oxygen to 5L to maintain sat >90%. Pt has flutter valve and v ibration vest at home. States has OGLESBY's when her oxygen sat is low (she checks at home and below 90 and she titrates her oxygen). Also reports chronic rhinorrhea. Pt with hx bronchoscopy on 11/14/18 showed mucous plugging and discharged on 11/16/18. She finished Levaquin and prednisone today. Denies fever/chills, diaphoresis, N/V/D/C, dizziness, syncope, vision changes, neck pain, other CP, palpitations, sore throat, choking, otalgia, abdominal pain, paresthesias, weakness, extremity weakness, extremity edema, rashes, urinary symptoms. Admission Exam Per Admitting Provider General: Chronic ill appearing, mild respiratory distress, overweight Head: normocephalic, atraumatic Eyes: PERRL, EOM's intact, conjunctiva non-injected, anicteric ENT: normal inspection external ears, nose, mucous membranes moist Neck: supple, trachea midline Lungs: mild respiratory distress, pt SOB with speaking in sentence, R:24, sat 93% with rest on 5L, diminished breath sounds throughout with wheezing, rhonchi, some rales at bases CV: regular rhythm, rate 106, no murmur, no JVD, no pretibial edema Chest: right lateral and posterior ribs with tenderness to palpation without skin discoloration or rashes or palpable crepitus Abd: normal BS, soft, non-tender Ext: no cyanosis, no calf tenderness Neuro: A&O x 3, no focal deficits noted, normal affect Skin: warm, dry Principal Diagnosis (1) Acute and chronic respiratory failure: (2) COPD (chronic obstructive pulmonary disease): (3) Acute exacerbation of bronchiectasis: (4) Right-sided chest pain: (5) Mediastinal adenopathy: (6) Steroid-induced diabetes: Discharge Exam General- No acute distress Head- atraumatic Eyes- PERRL, EOMI, ENT- oropharynx clear Neck- supple, no JVD Lungs- diminished BS Heart- regular rhythm; no murmur Abdomen- normal bowel sounds, soft, nontender Extremities- no calf tenderness Neuro- alert, oriented x 3; PERRL, EOMI; no facial palsy; no dysarthria Skin- warm & dry Discharge Data Allergies Allergy/AdvReac Type Severity Reaction Status Date / Time albuterol AdvReac Mild CHEST Verified 11/30/18 14:39 PAIN, LEVALBUTEROL OK oxycodone AdvReac Mild CAUSES Verified 11/30/18 14:39 DEPRESSION Consultations 11/30/18 17:45 ED Decision to Admit Stat 11/30/18 20:36 Consult Case Management - Discharge Planning Routine Consult Pulmonology Routine Ordered Studies 11/30/18 16:52 CT angio chest PE protocol Stat CT angio chest PE protocol CT DOSE: 594.58 mGy.cm HISTORY: 58 years-old Female with PE. Acute chest pain TECHNIQUE: Multiple CTA images of the chest were obtained after the intravenous administration of 118 ml Optiray 320. Coronal and sagittal MIPS were obtained from the axial data set and were submitted for review. All measurements were obtained according to NASCET criteria. A dose lowering technique was utilized adhering to the principles of ALARA. COMPARISON: Chest radiograph of same day, chest CT 10/23/2018, CTA chest 12/17/2017 FINDINGS: CTA: Heart is normal in size without pericardial effusion. Coronary arterial calcifications are noted. Right IJ [id number]-[id number] catheter distal tip terminates within the inferior aspect of the SVC. Prior median sternotomy with findings suggestive of prior CABG. No thoracic aortic aneurysm or dissection. Dilated pulmonary artery suggests pulmonary arterial hypertension. No focal filling defects to suggest pulmonary thromboembolic disease. CT CHEST: No focal thyroid nodule. Enlarged mediastinal lymph nodes include 3.3 x 1.5 cm subcarinal adenopathy and right paratracheal lymph nodes measuring up to 1.5 x 1.4 cm. No hilar adenopathy identified. No supraclavicular or axillary chain adenopathy. Findings appear unchanged from 10/23/2018. No pneumothorax or pleural effusion. Left-sided Bochdalek hernia. There are a few pleural-based calc ifications noted of the lung bases. Severe bilateral varicoid bronchiectasis with multifocal mucus plugging, air trapping and tree-in-bud nodules with subpleural reticulation and scattered subpleural consolidation, generally unchanged from comparison. Mild wall thickening throughout the esophagus. Soft tissues are unremarkable. Right shoulder arthroplasty. Severe degenerative changes of the left glenohumeral joint with flattening of the humeral head. IMPRESSION: 1. No evidence of pulmonary thromboembolic disease. 2. Prior median sternotomy and CABG. 3. Severe bilateral varicoid bronchiectasis with multifocal mucus plugging, air trapping, tree-in-bud nodules with subpleural reticulation and scattered subpleural predominant consolidation appears unchanged from comparison studies. Findings may be seen in cases of chronic aspiration, chronic postinfectious state among other etiologies. 4. Unchanged mediastinal adenopathy. 5. Dilated pulmonary arteries suggestive of pulmonary arterial hypertension. 6. Mild wall thickening throughout the esophagus. Correlate clinically to exclude esophagitis. The above report was generated using voice recognition software. It may contain grammatical, syntax or spelling errors. Electronically signed by: Lobo Yoo M.D. 11/30/2018 5:32 PM Dictated: 11/30/18 1715 Transcribed: 11/30/18 1727 XR chest 1V portable CLINICAL HISTORY: sob dyspnea COMPARISON STUDY: 12/01/1999 1910 exam FINDINGS: Diffuse bilateral parenchymal interstitial and infiltrative-type changes. No significant change from the prior exam. Central catheter in superior vena cava. Mild stable cardiomegaly. IMPRESSION: Stable diffuse bilateral parenchymal infiltrative and interstitial change. The above report was generated using voice recognition software. It may contain grammatical, syntax or spelling errors. Electronically signed by: Santosh Diaz M.D. 11/30/2018 4:08 PM Dictated: 11/30/18 1606 Transcribed: 11/30/18 1606 Hospital Course (1) Acute and chronic respiratory failure: (2) COPD (chronic obstructive pulmonary disease): (3) Acute exacerbation of bronchiectasis: Possible related to COPD exacerbation and bronchiectasis. CTA chest showed severe bilateral varicoid bronchiectasis with multifocal mucus plugging, air trapping, tree-in-bud nodules with subpleural reticulation and scattered subpleural predominant consolidation. No evidence of pulmonary thromboembolic disease. CXR showed stable diffuse bilateral parenchymal infiltrative and interstitial change. Sputum cx growing gram negative rods (Stenotrophomonas) Pulmonary on board recommended to continue IV abx for 2 weeks given failure of outpatient therapy. On prednisone, nebulizer treatment and cefepime Continue trilogy at night for her chronic hypercapnic respiratory failure. Case discussed with pulmonology Dr. Lang recommended to continue IV ax when discharge for an additional week, then will transition to Bactrim suppression. Will discharge on prednisone 20mg daily as per Dr. Lang ( He will evaluate her in the office for a slower taper) Continue Tobramycin inhaler (script given to case managers and working to get it approved. Will need to follow pulmonology outpatient Continue oxygen supplement and Neb treatment (4) Right-sided chest pain: CTA chest negative for pulmonary embolism. Resolved. (5) Mediastinal adenopathy: Noted on current and previous CT, unchanged. (6) Prolonged Q-T interval on ECG: Admission EKG showed QTC of 546 ms. Will avoid medication that increase QTC such as levofloxacin Sertraline on hold Repeat QTc 12/01 was 386 ms. 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 (9) Diarrhea: Stool 12/03 for C diff PCR negative. Diarrhea improves Monitor electrolytes (10) Arrhythmia: Had 22 beat run of wide-complex tachycardia morning of 12/03, asymptomatic. Suspect AF with aberrancy. Stable (11) DVT prophylaxis: SQ enoxaparin. Ambulate as able. (12) Discharge planning issues: Anticipated discharge to home today if approves for outpatient IV infusion Medical follow-up with SHMUEL Patel on 12/13 @ 3:30 PM Pulmonary Medicine follow-up with Dr. Lang and Baljinder Yen PA-C. Total Time Total Time Spent Total Time Spent (In Minutes): 35 minutes Total Time Includes: Examination of the Patient, Discharge Planning, Medication Reconciliation, Communication With Other Providers and Other Discharge Plan Discharge Items Patient Disposition: Home - Home Health Services Reason For Visit: COPD EXACERBATION Discharge Diagnosis: (1) Acute and chronic respiratory failure: (2) COPD (chronic obstructive pulmonary disease): (3) Acute exacerbation of bronchiectasis: (4) Right-sided chest pain: (5) Mediastinal adenopathy: (6) Steroid-induced diabetes: Discharge Goals: Decrease discomfort, Improve disease control, Improve function and Increase independence Activity: Resume your previous activity Activity Comment: as tolerated Non-emergency contact: Primary Care Provider and Clinical Nursing Professor Call non-emergency contact if: you have any medication questions Follow-up/Referrals: Ivonne Subramanian CRNP [Primary Care Provider] - Diet: Carb Consistent or DM2 and Heart Healthy Addtl Provider Instructions: Medical follow-up with SHMUEL Patel on 12/13 @ 3:30 PM Pulmonary Medicine follow-up with Dr. Lang and Baljinder Yen PA-C (Please call for the appointment) Continue oxygen supplement Continue to use your trilogy machine and percussive vest Continue outpatient cefepime infusion Continue prednisone slow taper Monitor your blood sugar closely Fall precaution Check CBC and CMP weekly while on cefepime Prescriptions: New tobramycin in 0.225 % NaCl 300 mg/5 mL solution for nebulization 300 mg INH Q12H 10 Days Qty: 100 RF: 0 cefepime 2 gram recon soln 2 gm IV Q8H 7 Days Qty: 14 RF: 0 prednisone 20 mg tablet 20 mg PO DAILY Qty: 14 RF: 0 Continued albuterol sulfate 90 mcg/actuation HFA aerosol inhaler 2 puff inhalation Q4 PRN (Reason: Shortness Of Breath Or Wheezing) RF: 0 ipratropium bromide 0.02 % solution 2.5 ml INH Q4H PRN (Reason: increased cough, shortness of breath or wheezing) Qty: 150 RF: 3 levalbuterol HCl 1.25 mg/3 mL solution for nebulization 1.25 mg INH Q4H PRN (Reason: increased cough, shortness of breath or wheezing) Qty: 90 RF: 3 Novolog Flexpen U-100 Insulin 100 unit/mL Insulin Pen See Rx Instructions .ROUTE .COMPLEX RF: 0 Breo Ellipta 100-25 mcg/dose Blister With Device 1 inh INHALATION DAILY RF: 0 metoprolol succinate 50 mg tablet extended release 24 hr 50 mg PO DAILY RF: 0 pantoprazole 40 mg tablet,delayed release (DR/EC) 40 mg PO DAILY RF: 0 hydrocortisone 5 mg tablet 10 mg PO QAM RF: 0 cyanocobalamin (vitamin B-12) 1,000 mcg Tablet 1,000 mcg PO DAILY RF: 0 ascorbic acid (vitamin C) 250 mg Tablet 250 mg PO DAILY RF: 0 Caltrate 600-D Plus Minerals 600 mg calcium- 800 unit-50 mg Tablet 1 tab PO BID RF: 0 multivitamin Tablet 1 tab PO DAILY RF: 0 magnesium oxide 400 mg (241.3 mg magnesium) Tablet 400 mg PO DAILY RF: 0 folic acid 1 mg Tablet 1 mg PO QPM RF: 0 guaifenesin 1,200 mg Tablet Extended Release 12hr 1,200 mg PO Q12H PRN (Reason: Congestion) RF: 0 Probiotic 3 billion cell Tablet,Chewable 1 tab PO QPM RF: 0 Gammagard Liquid 10 % Solution IV MONTHLY RF: 0 acetaminophen 500 mg Tablet 1,000 mg PO Q6H PRN (Reason: Pain) RF: 0 ipratropium-albuterol 0.5 mg-3 mg(2.5 mg base)/3 mL solution for nebulization 3 ml inhalation QID RF: 0 Discontinued hydrocortisone 5 mg tablet 2.5 mg PO HS RF: 0 sertraline 50 mg Tablet 75 mg PO DAILY RF: 0 Stand-Alone Forms: [facility], [facility] Discharge Orders: Discharge Order (Routine); Ordered 12/09/18 Ordered By: Emiliana Calderon Admission Data Admit Date/Time: 11/30/18 18:46 Attending Provider: Emiliana Calderon Admit Provider: Dany Rodriguez Primary Care Provider: Ivonne Subramanian Other Providers: Dany Rodriguez ; Oj Alonzo Service: Telemetry
[2018-12-09 11:23] VITALS: BP 129/74; PULSE 102; TEMP 97.5; O2SAT 95
== END 2018-12-09 12:10 | disposition home health service (06) | DRG 189 ==
LOC: ED 15:27 → 2E 18:46 → SUATTDRO 18:46 → 2E 20:31

== ENCOUNTER 2019-01-04 23:34 | Inpatient (IN) ==
[2019-01-05] MEDS ORDERED: NITROGLYCERIN SL 0.4 MG/TAB TAB ONE ×4 (00:15→17:13)
[2019-01-05] MEDS ORDERED: NITROGLYCERIN SL 0.4 MG/TAB TAB SL STA ×2 (00:30→04:32)
[2019-01-05] MEDS ORDERED: ALBUT/IPRATROP 3MG/0.5MG NEB 3 ML VIAL NEB STA (00:30)
[2019-01-05] MEDS ORDERED: ASPIRIN 81 MG CHEW PO STA (00:31)
[2019-01-05 00:44] LABS: Basophils # (auto) 0.02 K/uL (0-0.2); Basophils % (auto) 0.2 %; Eosinophils # (auto) 0.17 K/uL (0-0.5); Eosinophils % (auto) 1.3 %; Hematocrit (blood only) 31.9 % (37-47); Hemoglobin 9.7 g/dL (12.0-16.0); Immature Granulocytes # (auto) 0.03 K/uL (0.00-0.02); Immature Granulocytes % (auto) 0.2 %; Lymphocytes # (auto) 1.72 K/uL (1.2-3.4); Lymphocytes % (auto) 13.5 %; Mean Corpuscular Hemoglobin 26.4 pg (25-34); Mean Corpuscular Hgb Conc 30.4 g/dL (32-36); Mean Corpuscular Volume 86.9 fL (80-100); Monocytes % (auto) 5.5 %; Neutrophils % (auto) 79.3 %; Platelet Count 251 K/uL (130-400); RDW Coefficient of Variation 15.5 % (11.5-14.5); RDW Standard Deviation 49.3 fL (36.4-46.3); Red Blood Count 3.67 M/uL (4.2-5.4); White Blood Count 12.74 K/uL (4.8-10.8)
[2019-01-05 00:52] LABS: Alanine Aminotransferase 13 U/L (12-78); Albumin Level 2.8 gm/dl (3.4-5.0); Aspartate Aminotransferase 11 U/L (15-37); BUN Creatinine Ratio 17.4 (10-20); Blood Urea Nitrogen 12 mg/dl (7-18); Calcium 8.8 mg/dl (8.5-10.1); Carbon Dioxide 34 mmol/L (21-32); Chloride 93 mmol/L (98-107); Creatinine Clr Calc Pharmacy 86.2 ml/min; Est GFR (African American) 111.5; Est GFR (Non-African American) 96.2; Glucose 185 mg/dl (70-99); Sodium 134 mmol/L (136-145)
[2019-01-05 00:57] LABS: Albumin Globulin Ratio 0.5 (0.9-2); Alkaline Phosphatase 86 U/L (45-117); Bilirubin,Total 0.3 mg/dl (0.2-1); Globulin 5.1 gm/dl (2.5-4.0); Total Protein 7.9 gm/dl (6.4-8.2); Troponin I < 0.015 ng/ml (0-0.045)
[2019-01-05 01:16] LABS: Partial Thromboplastin Time 28.1 Seconds (21.0-31.0); Prothrombin Time 10.4 Seconds (9.0-12.0)
[2019-01-05] MEDS ORDERED: AZITHROMYCIN 250 MG TAB PO ONE (02:55)
[2019-01-05] MEDS ORDERED: cefTRIAXone SODIUM 1,000 MG/50 ML BAG IV STA (02:55)
[2019-01-05] MEDS ORDERED: methylPREDNISolone 40 MG in SYRINGE 0 ML IV STA (03:05)
[2019-01-05] MEDS ORDERED: ALBUMIN 25% 50 ML IV ONE (03:06)
[2019-01-05 03:43] LABS: Magnesium 1.7 mg/dl (1.8-2.4); NT Pro B Type Natriuretic Pept 204 pg/ml (0-900)
[2019-01-05 04:07] LABS: Allen Test POS (Pos); Base Excess ABG 9.4 mEq/L (-9-1.8); HCO3 ABG 37 mmol/L (19-24); Oxygen Saturation ABG 91.8 % (90-95); PCO2 ABG 64 mmHg (35-46); PO2 ABG 75 mm/Hg (80-95); pH ABG 7.37 (7.35-7.45)
--- NOTE | 2019-01-05 04:21 | History & Physical Report ---
Date of Service January 05, 2019 Assessment & Plan (1) Acute and chronic respiratory failure: Secondary to steroid dependent COPD/bronchiectasis exacerbation Possible sepsis Immunocompromised patient given chronic steroid Rx, history CVI/hypogammaglobulinemia hx pulmonary hypertension as per records HTN, stable DM2, insulin requiring, well-controlled as of recent hemoglobin A1c of 6.11 September 2018 chronic anemia, hemoglobin at baseline (baseline hemoglobin of 9-10) PCU Supplemental O2 Baseline ABG Steroids, nebs CS, check lactic acid Bactrim given history of Sternophomonas/Acinetobacter growth on previous sputum cultures Pulmonary consult RE acute on chronic respiratory failure TTE RE chest pain relieved by nitro Basal insulin, ISS BG goal 140-180, carb count coverage, update hemoglobin A1c DVT prophylaxis. Lovenox subcu Full code Total critical care time was 50 minutes. History of Present Illness Chief Complaint: Cough, chest pain, S OB Primary Care Provider: SHMUEL Álvarez History obtained from patient, family, and records. Medical history is significant for chronic respiratory failure secondary to steroid dependent COPD/bronchiectasis on home O2, pulmonary hypertension as per records, HTN, DM2, insulin requiring, chronic anemia (baseline hemoglobin of 9-10), history of ASD repair, hx CVI,Hypogammaglobulinemia, avascular necrosis of the right hip sp surgery Recent confinement 3 weeks ago for acute on chronic respiratory failure secondary to COPD/bronchiectasis exacerbation. Patient discharged on cefepime/tobramycin/prednisone Rx. Patient completed steroid Rx about 2 days ago. Yesterday patient noted with thinning shortness of breath, junky cough symptoms. Achy left-sided chest pain with some relief with nitroglycerin given at the ER. Denies aspiration. Patient received Ceftriaxone and Azithromycin at the ER. Medical History as above Surgical History : Breast lesion excision, section, eardrum surgery, vascular device placement, hysterectomy, shoulder surgery, tonsillectomy/adenectomy, [place], sinus surgery Family History : AAA, asthma, cervical cancer, brain cancer, diabetes, COPD, lymphoma Personal/Social history : Non-smoker, no EtOH intake, disabled Allergies Allergy/AdvReac Type Severity Reaction Status Date / Time albuterol AdvReac Mild CHEST Verified 01/05/19 00:47 PAIN, LEVALBUTEROL OK oxycodone AdvReac Mild CAUSES Verified 01/05/19 00:47 DEPRESSION Home Medications Home Medications Medication Instructions Recorded Confirmed Type Caltrate 600-D Plus Minerals 1 tab PO BID 12/17/17 01/05/19 History Gammagard Liquid 0 mg/kg IV MONTHLY 12/17/17 01/05/19 History Probiotic 1 tab PO QPM 12/17/17 01/05/19 History acetaminophen 1,000 mg PO Q6H PRN 12/17/17 01/05/19 History ascorbic acid (vitamin C) 250 mg PO DAILY 12/17/17 01/05/19 History cyanocobalamin (vitamin B-12) 1,000 mcg PO DAILY 12/17/17 01/05/19 History folic acid 1 mg PO QPM 12/17/17 01/05/19 History guaifenesin 1,200 mg PO Q12H PRN 12/17/17 01/05/19 History hydrocortisone 10 mg PO QAM 12/17/17 01/05/19 History magnesium oxide 400 mg PO DAILY 12/17/17 01/05/19 History multivitamin 1 tab PO DAILY 12/17/17 01/05/19 History pantoprazole 40 mg PO DAILY 12/17/17 01/05/19 History Breo Ellipta 1 inh INHALATION DAILY 04/21/18 01/05/19 History Novolog Flexpen U-100 Insulin See Rx Instructions .ROUTE .COMPLEX 04/21/18 01/05/19 History metoprolol succinate 50 mg PO DAILY 11/14/18 01/05/19 History albuterol sulfate HFA 90 2 puff INHALATION Q4 PRN gm 11/24/18 01/05/19 History mcg/actuation aerosol inhaler ipratropium bromide 0.02 % 2.5 ml INH Q4H PRN #150 ml 11/24/18 01/05/19 Rx solution for inhalation levalbuterol 1.25 mg/3 mL solution 1.25 mg INH Q4H PRN #90 ml 11/24/18 01/05/19 Rx for nebulization silver sulfadiazine 1 % topical 1 appln TOP BID 12/15/18 01/05/19 History cream tobramycin 300 mg/5 mL in 0.225 % 300 mg INH BID 28 Days #280 ml 12/26/18 01/05/19 Rx sodium chloride for nebulization Past Med/Surg History Medical History Arrhythmia Mediastinal adenopathy Prolonged Q-T interval on ECG Acute and chronic respiratory failure Acute bronchitis (Acute) CVID (common variable immunodeficiency) (Chronic) Receives monthly IVIG infusions COPD (chronic obstructive pulmonary disease) (Chronic) Oxygen dependent (Chronic) "2L-4L" On 04/29/17 18:15 Maine Martínez wrote "4L" On 04/08/15 18:56 Adriana Carmen wrote "2L" Steroid-induced diabetes (Chronic) BILL (obstructive sleep apnea) (Chronic) Depression (Chronic) Mild pulmonary hypertension (Chronic) 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) Anxiety (Chronic) Bronchiectasis (Chronic) GERD (gastroesophageal reflux disease) (Chronic) Hypogammaglobulinemia (Chronic) Hyperlipidemia (Chronic) Chronic respiratory failure (Chronic) Pneumomediastinum (Resolved) Pneumothorax (Resolved) Depression Hypogammaglobulinemia Surgical History H/O atrial septal defect repair (Resolved) H/O total shoulder replacement (Resolved) H/O: hysterectomy (Resolved) History of hysterectomy (Resolved) History of left hip replacement (Resolved) History of myringotomy (Resolved) History of right hip replacement (Resolved) Hx of appendectomy (Resolved) Hx of cholecystectomy (Resolved) Hx of tympanostomy tubes (Resolved) S/P bronchoscopy (Resolved) S/P section (Resolved) S/P sinus surgery (Resolved) S/P tonsillectomy and adenoidectomy (Resolved) Social History Preferred Language: Romanian Communication Ability: Effective Golf Course Keeper Required: No Beliefs That Will Affect Care: None marital status: Current Living Situation: Alone current occupational status: disabled Other Information That Helps Us Care for You: No Feels Safe at Home: Yes Safety Concerns: Feels Safe At This Time Smoking Status: Never smoker Second Hand Exposure: No ; Hx Alcohol Use: No Hx Substance Use: No Review of Systems Review of Systems: As per HPI, all 10 systems reviewed, all other ROS negative Physical Exam Physical Exam: GENERAL: uncomfortable, respiratory distress SKIN: Pallor , warm HEENT: Bespectacled, pale palpebral conjunctivae, chronic ptosis, dry buccal mucosa NECK : Supple, short neck, no tenderness CHEST : kyphotic, bilateral rhonchi/crackles, expiratory wheezes, no tenderness HEART : RRR, no obvious murmurs ABDOMEN: Some distention, nontender EXTREMITIES : Minimal LE swelling/no LE tenderness, no other conspicuous deformities noted NEUROLOGIC : Coherent, no facial asymmetry, no other gross focality Results & Data Vital Signs (Past 12 Hours) Vital Signs Temp Pulse Pulse Pulse Resp BP BP 01/05/19 04:15 89 15 102/79 01/05/19 03:59 36.6 C 87 15 108/75 01/05/19 02:28 88 18 94/40 L 01/05/19 01:25 101 H 22 103/60 01/05/19 00:51 01/05/19 00:48 112 H 22 01/05/19 00:28 118 H 29 H 104/69 01/05/19 00:06 01/04/19 23:39 37.0 C 121 H 32 H 157/88 H Pulse Ox 01/05/19 04:15 93 01/05/19 03:59 95 01/05/19 02:28 97 01/05/19 01:25 94 01/05/19 00:51 94 01/05/19 00:48 92 01/05/19 00:28 93 01/05/19 00:06 92 01/04/19 23:39 81 L Laboratory Results Laboratory Results WBC 12.74 K/uL (4.8-10.8) H 01/04/19 23:54 RBC 3.67 M/uL (4.2-5.4) L 01/04/19 23:54 Hgb 9.7 g/dL (12.0-16.0) L 01/04/19 23:54 Hct 31.9 % (37-47) L 01/04/19 23:54 MCV 86.9 fL (80-100) 01/04/19 23:54 MCH 26.4 pg (25-34) 01/04/19 23:54 MCHC 30.4 g/dL (32-36) L 01/04/19 23:54 RDW Std Deviation 49.3 fL (36.4-46.3) H 01/04/19 23:54 RDW Coeff of Adan 15.5 % (11.5-14.5) H 01/04/19 23:54 Plt Count 251 K/uL (130-400) 01/04/19 23:54 MPV 9.0 fL (7.4-10.4) 01/04/19 23:54 Immature Gran % (Auto) 0.2 % 01/04/19 23:54 Neut % (Auto) 79.3 % 01/04/19 23:54 Lymph % (Auto) 13.5 % 01/04/19 23:54 Crook % (Auto) 5.5 % 01/04/19 23:54 Eos % (Auto) 1.3 % 01/04/19 23:54 Baso % (Auto) 0.2 % 01/04/19 23:54 Immature Gran # (Auto) 0.03 K/uL (0.00-0.02) H 01/04/19 23:54 Neut # (Auto) 10.10 K/uL (1.4-6.5) H 01/04/19 23:54 Lymph # (Auto) 1.72 K/uL (1.2-3.4) 01/04/19 23:54 Crook # (Auto) 0.70 K/uL (0.11-0.59) H 01/04/19 23:54 Eos # (Auto) 0.17 K/uL (0-0.5) 01/04/19 23:54 Baso # (Auto) 0.02 K/uL (0-0.2) 01/04/19 23:54 PT 10.4 Seconds (9.0-12.0) 01/05/19 00:42 INR 1.0 (0.9-1.1) 01/05/19 00:42 APTT 28.1 Seconds (21.0-31.0) 01/05/19 00:42 PTT Ratio 1.0 01/05/19 00:42 ABG pH 7.37 (7.35-7.45) 01/05/19 03:42 ABG pCO2 64 mmHg (35-46) H 01/05/19 03:42 ABG pO2 75 mm/Hg (80-95) L 01/05/19 03:42 ABG HCO3 37 mmol/L (19-24) H 01/05/19 03:42 ABG O2 Saturation 91.8 % (90-95) 01/05/19 03:42 ABG Base Excess 9.4 mEq/L (-9-1.8) H 01/05/19 03:42 Gui Test POS (Pos) 01/05/19 03:42 Barometric Pressure 732.9 mm/Hg 01/05/19 03:42 Oxygen Given 8L O2 01/05/19 03:42 Sodium 134 mmol/L (136-145) L 01/04/19 23:54 Potassium 4.0 mmol/L (3.5-5.1) 01/04/19 23:54 Chloride 93 mmol/L (98-107) L 01/04/19 23:54 Carbon Dioxide 34 mmol/L (21-32) H 01/04/19 23:54 Anion Gap 7.0 (3-11) 01/04/19 23:54 BUN 12 mg/dl (7-18) 01/04/19 23:54 Creatinine 0.70 mg/dl (0.6-1.2) 01/04/19 23:54 Est Cr Clr Drug Dosing 86.2 ml/min 01/04/19 23:54 Est GFR ( Amer) 111.5 01/04/19 23:54 Est GFR (Non-Af Amer) 96.2 01/04/19 23:54 BUN/Creatinine Ratio 17.4 (10-20) 01/04/19 23:54 Glucose 185 mg/dl (70-99) H 01/04/19 23:54 Lactate 1.1 mmol/L (0.4-2.0) 01/05/19 03:42 Calcium 8.8 mg/dl (8.5-10.1) 01/04/19 23:54 Magnesium 1.7 mg/dl (1.8-2.4) L 01/04/19 23:54 Total Bilirubin 0.3 mg/dl (0.2-1) 01/04/19 23:54 AST 11 U/L (15-37) L 01/04/19 23:54 ALT 13 U/L (12-78) 01/04/19 23:54 Alkaline Phosphatase 86 U/L (45-117) 01/04/19 23:54 Troponin I < 0.015 ng/ml (0-0.045) 01/04/19 23:54 NT-Pro-B Natriuret Pep 204 pg/ml (0-900) 01/04/19 23:54 Total Protein 7.9 gm/dl (6.4-8.2) 01/04/19 23:54 Albumin 2.8 gm/dl (3.4-5.0) L 01/04/19 23:54 Globulin 5.1 gm/dl (2.5-4.0) H 01/04/19 23:54 Albumin/Globulin Ratio 0.5 (0.9-2) L 01/04/19 23:[address] chest initial read no pulmonary embolism. Extensive irreversible varicoid bronchiectasis scattered throughout both lungs with suggestion of some areas of tree-in-bud small airways disease and mucous plugging peripherally, not significantly altered from previous examination. No lobar consolidation. Prominent pulmonary artery. EKG as per my interpretation: Rate 125, sinus tachycardia, normal axis, T wave inversion anterolateral. leads
[2019-01-05] MEDS ORDERED: OPTIRAY 320 125ml IV PRN (04:57)
[2019-01-05] MEDS ORDERED: TRAMADOL HCL 50 MG TABLET PO PRN (05:29)
[2019-01-05] MEDS ORDERED: SODIUM CHLORIDE 0.9% 1000ML 1,000 ML IV ONE (05:29)
[2019-01-05] MEDS ORDERED: DEXTROSE 50% 50 ML SYRINGE IV PRN (05:29)
[2019-01-05] MEDS ORDERED: GLUCOSE 10 TABS/TUBE PO PRN (05:29)
[2019-01-05] MEDS ORDERED: guaiFENesin 600 MG TABCR PO PRN (05:29)
[2019-01-05] MEDS ORDERED: GLUCOSE 40% GEL 15 GM TUBE PO PRN (05:29)
[2019-01-05] MEDS ORDERED: GLUCAGON FOR INJ 1 MG VIAL SQ PRN (05:29)
[2019-01-05] MEDS ORDERED: CARBOHYDRATES FOR HYPOGLYCEMIA PO PRN (05:29)
[2019-01-05] MEDS ORDERED: INSULIN GLARGINE SOLOSTAR 100 UNITS/ML 3 ML PEN SQ ONE (06:00)
[2019-01-05] MEDS ORDERED: [UNRECOGNIZED DRUG - REMARK] PRN (06:09)
[2019-01-05] MEDS: MAGNESIUM SULFATE / D5W 1 GM/100 ML BAG IV SCH ×2 (06:16→07:21)
[2019-01-05 06:44] LABS: Estimated Average Glucose 143 mg/dl; Hemoglobin A1C 6.6 % (4.5-5.6)
[2019-01-05] MEDS: LEVALBUTEROL 1.25MG/0.5ML NEB INH SCH ×3 (06:57→20:03)
[2019-01-05] MEDS: IPRATROPIUM BROMIDE NEB SOLN 0.02% 2.5 ML VIAL INH SCH ×3 (06:57→20:03)
[2019-01-05] MEDS ORDERED: XOPENEX/ATROVENT 1.25mg/0.5MG NEB COMBO NEB SCH (07:00)
--- NOTE | 2019-01-05 07:12 | CT Scan Report ---
CHEST CTA for PULMONARY ARTERIES CT DOSE: 472.94 mGy.cm HISTORY: Shortness of breath. TECHNIQUE: Multiaxial CT images of the chest were performed following the intravenous administration of contrast to evaluate the pulmonary arteries. Maximal intensity projection images were also obtaine d. A dose lowering technique was utilized adhering to the principles of ALARA. COMPARISON STUDY: Chest CTA 11/30/2018. FINDINGS: Normal caliber thoracic aorta with no evidence for dissection. No change in the calcificati ons within the SVC adjacent to the right jugular Port-A-Cath. The heart is normal in size. No pleural or pericardial effusions. Tiny linear filling defect seen within a lingular pulmonary artery best se en on image 190. This is consistent with a small nonocclusive chronic thrombus. No acute pulmonary em bolus identified. There is a right shoulder prosthesis. 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 There are poststernotomy changes. The visualized live r and spleen are unremarkable. Mild esophageal wall thickening, unchanged. Mild mediastinal lymphaden opathy, unchanged. No pneumothorax. Overall, similar appearance within the lungs with severe bilatera l varicose bronchiectasis, multifocal mucous plugging, air trapping, tree-in-bud nodules, subpleural reticulation, and scattered subpleural consolidation. IMPRESSION: 1. No acute pulmonary embolus. Tiny linear nonocclusive filling defect within a lingular pulmonary ar maira favors a small chronic thrombus. 2. Calcifications surrounding the catheter within the SVC also consistent with chronic thrombus. This remains unchanged. 3. Unchanged mediastinal lymphadenopathy. 4. No significant change in the extensive acute on chronic lung disease as described above. Electronically signed by: Troy Collier M.D. 01/05/2019 7:11 AM
--- NOTE | 2019-01-05 07:15 | XRay Report ---
XR chest 1V portable HISTORY: Dyspnea COMPARISON: Chest 11/30/2018. FINDINGS: No change in the diffuse interstitial thickening, bronchiectasis, and basilar/peripheral ai rspace opacities. The heart remains stable in size. There are poststernotomy changes. Right jugular P ort-A-Cath terminates at the distal SVC. No pneumothorax. No pleural effusions. There is a right shou lder prosthesis. 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 IMPRESSION: No change compared to the prior study. Chronic parenchymal changes as described above. Electronically signed by: Troy Collier M.D. 01/05/2019 7:13 AM
[2019-01-05] MEDS: CYANOCOBALAMIN 500 MCG TABLET (VITAMIN B-12) PO SCH (07:31)
[2019-01-05] MEDS: ENOXAPARIN INJ 30 MG/0.3 ML SYR SQ SCH (07:31)
[2019-01-05] MEDS: PANTOprazole 40 MG TAB PO SCH (07:31)
[2019-01-05] MEDS: MAGNESIUM OXIDE 400 MG TAB PO SCH (07:32)
[2019-01-05] MEDS: MULTIVITAMIN TAB PO SCH (07:32)
[2019-01-05] MEDS: METOPROLOL SUCC 25MG EXT REL TAB PO SCH (07:32)
[2019-01-05] MEDS: DEXTROSE 5% IV SCH ×4 (07:33→23:30)
[2019-01-05] MEDS: TRIMETH IV SCH ×4 (07:33→23:30)
[2019-01-05] MEDS: SULFA IV SCH ×4 (07:33→23:30)
[2019-01-05] MEDS: INSULIN ASPART 100 UNITS/ML 3 ML PEN SC SCH ×4 (08:11→23:06)
--- NOTE | 2019-01-05 08:26 | Emergency Department Note ---
Entered by Arnav Murray acting as a scribe for History of Present Illness General Chief complaint: Cardiac Assessment Stated complaint: CHEST PAIN/BACK PAIN/SOB,HIGH HEART RATE Time Seen by Provider: 01/04/19 23:38 Source: patient and family History of Present Illness Onset (ago): day(s) (last night) Location: chest Pain Consistency: + constant Maximum Pain Intensity: 4 Quality: + other (chest tightness) Associated symptoms: + other (Positive for nausea, a productive yellow cough, and SOB. Negative for vomiting, fever, chills, and abdominal pain.) The patient is a 58 year old female who presents to the emergency department with complaints of constant chest pain beginning last night. The patient states that she was nauseous yesterday. She notes that she then had a coughing episode and developed chest tightness and SOB last night. She reports that she is coughing up a yellow mucus which she says it normal. The patient states that her SOB is worse than usual. Per family, the patients oxygen saturation was 79% en route to the emergency department. The patient denies any vomiting, fever, chills, abdominal pain, and known sick contacts. She notes that she wears 2-3L of oxygen at all times, but she reports that she had to increase to 8L last night. Home Medications Home Medications Medication Instructions Recorded Confirmed Type Caltrate 600-D Plus Minerals 1 tab PO BID 12/17/17 01/05/19 History Gammagard Liquid 0 mg/kg IV MONTHLY 12/17/17 01/05/19 History Probiotic 1 tab PO QPM 12/17/17 01/05/19 History acetaminophen 1,000 mg PO Q6H PRN 12/17/17 01/05/19 History ascorbic acid (vitamin C) 250 mg PO DAILY 12/17/17 01/05/19 History cyanocobalamin (vitamin B-12) 1,000 mcg PO DAILY 12/17/17 01/05/19 History folic acid 1 mg PO QPM 12/17/17 01/05/19 History guaifenesin 1,200 mg PO Q12H PRN 12/17/17 01/05/19 History hydrocortisone 10 mg PO QAM 12/17/17 01/05/19 History magnesium oxide 400 mg PO DAILY 12/17/17 01/05/19 History multivitamin 1 tab PO DAILY 12/17/17 01/05/19 History pantoprazole 40 mg PO DAILY 12/17/17 01/05/19 History Breo Ellipta 1 inh INHALATION DAILY 04/21/18 01/05/19 History Novolog Flexpen U-100 Insulin See Rx Instructions .ROUTE .COMPLEX 04/21/18 01/05/19 History metoprolol succinate 50 mg PO DAILY 11/14/18 01/05/19 History albuterol sulfate HFA 90 2 puff INHALATION Q4 PRN gm 11/24/18 01/05/19 History mcg/actuation aerosol inhaler ipratropium bromide 0.02 % 2.5 ml INH Q4H PRN #150 ml 11/24/18 01/05/19 Rx solution for inhalation levalbuterol 1.25 mg/3 mL solution 1.25 mg INH Q4H PRN #90 ml 11/24/18 01/05/19 Rx for nebulization silver sulfadiazine 1 % topical 1 appln TOP BID 12/15/18 01/05/19 History cream tobramycin 300 mg/5 mL in 0.225 % 300 mg INH BID 28 Days #280 ml 12/26/18 01/05/19 Rx sodium chloride for nebulization Allergies Allergy/AdvReac Type Severity Reaction Status Date / Time albuterol AdvReac Mild CHEST Verified 01/05/19 00:47 PAIN, LEVALBUTEROL OK oxycodone AdvReac Mild CAUSES Verified 01/05/19 00:47 DEPRESSION Past Med/Surg History Medical History Arrhythmia Mediastinal adenopathy Prolonged Q-T interval on ECG Acute and chronic respiratory failure Acute bronchitis (Acute) CVID (common variable immunodeficiency) (Chronic) Receives monthly IVIG infusions COPD (chronic obstructive pulmonary disease) (Chronic) Oxygen dependent (Chronic) "2L-4L" On 04/29/17 18:15 Maine Martínez wrote "4L" On 04/08/15 18:56 Adriana Morales wrote "2L" Steroid-induced diabetes (Chronic) BILL (obstructive sleep apnea) (Chronic) Depression (Chronic) Mild pulmonary hypertension (Chronic) 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) Anxiety (Chronic) Bronchiectasis (Chronic) GERD (gastroesophageal reflux disease) (Chronic) Hypogammaglobulinemia (Chronic) Hyperlipidemia (Chronic) Chronic respiratory failure (Chronic) Pneumomediastinum (Resolved) Pneumothorax (Resolved) Depression Hypogammaglobulinemia Surgical History H/O atrial septal defect repair (Resolved) H/O total shoulder replacement (Resolved) H/O: hysterectomy (Resolved) History of hysterectomy (Resolved) History of left hip replacement (Resolved) History of myringotomy (Resolved) History of right hip replacement (Resolved) Hx of appendectomy (Resolved) Hx of cholecystectomy (Resolved) Hx of tympanostomy tubes (Resolved) S/P bronchoscopy (Resolved) S/P section (Resolved) S/P sinus surgery (Resolved) S/P tonsillectomy and adenoidectomy (Resolved) Social History Preferred Language: Kyrgyz Communication Ability: Effective Nail Technician Required: No Beliefs That Will Affect Care: None marital status: Current Living Situation: Alone current occupational status: disabled Other Information That Helps Us Care for You: No Feels Safe at Home: Yes Safety Concerns: Feels Safe At This Time Smoking Status: Never smoker Second Hand Exposure: No ; Hx Alcohol Use: No Hx Substance Use: No Review of Systems See HPI for pertinent positives & negatives. and A total of 10 systems reviewed and were otherwise negative Physical Exam Vital Signs Vital Signs - 24 hr 01/04/19 23:39 01/05/19 00:06 01/05/19 00:28 Temperature 37.0 C Temperature Source Oral Sepsis Recent Fever Within 48 Hours Yes Sepsis New/Unexplained Change in Mental Status No Sepsis Action Taken by Nursing Physician Notified Pulse Rate 121 H Pulse Rate [Apical] Pulse Rate [Finger] 118 H Respiratory Rate 32 H 29 H Respiratory Effort / Characteristics Non-Labored Respiratory Depth Normal Blood Pressure 157/88 H Blood Pressure [Right Arm] 104/69 Blood Pressure Mean 111 Blood Pressure Mean [Right Arm] 80 Blood Pressure Position Lying Pulse Oximetry 81 L 92 93 Oxygen Delivery Method Nasal Cannula Oxymask Oxymask Oxygen Flow Rate 6 8 8 01/05/19 00:48 01/05/19 00:51 01/05/19 01:25 Temperature Temperature Source Sepsis Recent Fever Within 48 Hours Sepsis New/Unexplained Change in Mental Status Sepsis Action Taken by Nursing Pulse Rate Pulse Rate [Apical] 112 H 101 H Pulse Rate [Finger] Respiratory Rate 22 22 Respiratory Effort / Characteristics Spontaneous Respiratory Depth Blood Pressure Blood Pressure [Right Arm] 103/60 Blood Pressure Mean Blood Pressure Mean [Right Arm] 74 Blood Pressure Position Pulse Oximetry 92 94 94 Oxygen Delivery Method Oxymask Nebulizer Oxymask Oxygen Flow Rate 8 8 01/05/19 02:28 01/05/19 03:59 01/05/19 04:15 Temperature 36.6 C Temperature Source Oral Sepsis Recent Fever Within 48 Hours Sepsis New/Unexplained Change in Mental Status Sepsis Action Taken by Nursing Pulse Rate Pulse Rate [Apical] 88 87 89 Pulse Rate [Finger] Respiratory Rate 18 15 15 Respiratory Effort / Characteristics Respiratory Depth Blood Pressure Blood Pressure [Right Arm] 94/40 L 108/75 102/79 Blood Pressure Mean Blood Pressure Mean [Right Arm] 58 86 86 Blood Pressure Position Pulse Oximetry 97 95 93 Oxygen Delivery Method Oxymask Oxymask Oxymask Oxygen Flow Rate 8 8 8 General: Appears to be in respiratory distress. HEENT: Head - normocephalic and atraumatic Pupils are equal, round, and reactive to light. Extraocular eye muscles are intact, and sclera are anicteric. Nose - moist nasal mucosa without discharge. Mouth - moist buccal mucosa. Oropharynx is nonerythematous and there is no tonsillar exudate or edema noted. Neck: Supple; no JVD, nuchal rigidity, cervical lymphadenopathy, or auscultated bruits. Heart: Regular rhythm and tachycardic. There is a normal S1 and S2 with no murmurs, clicks, or gallops appreciated. Lungs: No rales. Diffuse rhonchi in all lung davalos with expiratory wheezing in all lung davalos. Abdomen: Soft, completely nontender, nondistended, with good bowel sounds. There are no palpable pulsatile masses or hepatosplenomegaly. There is no guarding, rigidity, or rebound noted. Extremities: No evidence of cyanosis and clubbing. There are easily palpable peripheral pulses. Trace pedal edema. Skin: warm and dry with good turgor and no rashes. Course 0010: The patient was evaluated in room A3. A complete history and physical exam was performed. An IV lock was initiated and labs were drawn as above. Nursing staff had obtained an EKG upon the patient's arrival. This appeared abnormal and so it was repeated. This continues to reveal significant ST segment depression in the anterior and lateral leads which was concerning for ischemia. A chest x-ray was performed. 0015: Nitroglycerin 0.4mg SL 0029: Nitroglycerine 0.4mg 0035: Nitroglycerine 0.4mg 0039: I reevaluated and updated the patient. She had relief of her chest pain after receiving nitro. 0040: Aspirin 324mg PO 0045: Albuterol 3ml NEB 0127: I rechecked the patient. Her breathing is better. 0253: Upon reevaluation, the patient is stable. I discussed the findings and the treatment plan with the patient. She expresses agreement and understanding. [facility] The patient will be evaluated for further management. 0320: I rechecked the patient. Consultations Consultation #1: I reviewed the patient's case [facility] He will evaluate the patient for further management. Time: 02:53 Administered Medications Cyanocobalamin (Vitamin B-12) 1,000 mcg PO DAILY [facility] Stop: 02/04/19 08:59 Last Admin: 01/05/19 07:31 Dose: 1,000 mcg Documented by: [id number] Enoxaparin Sodium (Lovenox) 30 mg SQ QAM [facility] Stop: 02/04/19 08:59 Last Admin: 01/05/19 07:31 Dose: 30 mg Documented by: [id number] Folic Acid (Folvite) 1 mg PO QPM [facility] Stop: 02/04/19 20:59 Last Admin: 01/05/19 20:33 Dose: 1 mg Documented by: [id number] Promethazine HCl 12.5 mg/ (Sodium Chloride) 50.5 mls @ 202 mls/hr IV Q6H PRN PRN Reason: Nausea And Vomiting Stop: 02/04/19 05:28 Last Infusion: 01/05/19 20:33 Dose: 0 mls/hr Documented by: [id number] Admin: 01/05/19 20:14 Dose: 202 mls/hr Documented by: [id number] Trimethoprim/Sulfamethoxazole (275 mg/ Dextrose) 517.1875 mls @ 333 mls/hr IV Q6 [facility]IANA; Protocol Stop: 01/12/19 06:14 Last Infusion: 01/05/19 19:37 Dose: 0 mls/hr Documented by: [id number] Admin: 01/05/19 17:18 Dose: 333 mls/hr Documented by: [id number] Infusion: 01/05/19 13:07 Dose: 0 mls/hr Documented by: [id number] Admin: 01/05/19 11:30 Dose: 333 mls/hr Documented by: [id number] Infusion: 01/05/19 09:16 Dose: 0 mls/hr Documented by: [id number] Admin: 01/05/19 07:33 Dose: 333 mls/hr Documented by: [id number] Tobramycin Sulfate 300 mg/ (Syringe) 7.5 mls @ 0.033 mls/min INH BID [facility]NA Stop: 01/12/19 08:59 Last Admin: 01/05/19 20:16 Dose: 0.033 mls/min Documented by: [id number] Admin: 01/05/19 10:49 Dose: 0.033 mls/min Documented by: [id number] Insulin Aspart (Novolog Flexpen) 0 units SC ACHS [facility] Stop: 02/04/19 05:59 Last Admin: 01/05/19 17:18 Dose: 2 units Documented by: [id number] Cosigned by: [id number] Admin: 01/05/19 12:07 Dose: 8 units Documented by: [id number] Cosigned by: [id number] Admin: 01/05/19 08:11 Dose: 4 units Documented by: [id number] Cosigned by: [id number] Ioversol (Optiray 320 125ml) 116 ml IV ONCE PRN PRN Reason: Interaction Checking Stop: 01/09/19 04:56 Last Admin: 01/05/19 04:58 Dose: 1 ml Documented by: [id number] Ipratropium [place] (Atrovent 0.02% 0.5mg/2.5ml) 0.5 mg INH Q6R [facility] Stop: 02/04/19 06:59 Last Admin: 01/05/19 20:03 Dose: 0.5 mg Documented by: [id number] Admin: 01/05/19 13:10 Dose: 0.5 mg Documented by: [id number] Admin: 01/05/19 06:57 Dose: 0.5 mg Documented by: [id number] Levalbuterol HCl (Xopenex 1.25mg/0.5ml Neb) 1.25 mg INH Q6R [facility]IANA Stop: 02/04/19 06:59 Last Admin: 01/05/19 20:03 Dose: 1.25 mg Documented by: [id number] Admin: 01/05/19 13:10 Dose: 1.25 mg Documented by: [id number] Admin: 01/05/19 06:57 Dose: 1.25 mg Documented by: [id number] Magnesium Oxide (Mag-Ox) 400 mg PO DAILY [facility] Stop: 02/04/19 08:59 Last Admin: 01/05/19 07:32 Dose: 400 mg Documented by: [id number] Metoprolol Succinate (Toprol Xl) 25 mg PO DAILY [facility] Stop: 02/04/19 08:59 Last Admin: 01/05/19 07:32 Dose: 25 mg Documented by: [id number] Multivitamins (Multivitamin Tab) 1 tab PO DAILY [facility] Stop: 02/04/19 08:59 Last Admin: 01/05/19 07:32 Dose: 1 tab Documented by: [id number] Pantoprazole Sodium (Protonix) 40 mg PO DAILY [facility] Stop: 02/04/19 08:59 Last Admin: 01/05/19 07:31 Dose: 40 mg Documented by: [id number] Discontinued Medications Albuterol (Duoneb) 3 ml NEB NOW STA Stop: 01/05/19 00:31 Last Admin: 01/05/19 00:45 Dose: 3 ml Documented by: [id number] Aspirin (Aspirin Chew) 324 mg PO NOW STA Stop: 01/05/19 00:32 Last Admin: 01/05/19 00:40 Dose: 324 mg Documented by: [id number] Azithromycin (Zithromax) 500 mg PO NOW ONE Stop: 01/05/19 02:56 Last Admin: 01/05/19 03:30 Dose: 500 mg Documented by: [id number] Ceftriaxone Sodium (Rocephin) 1,000 mg in 50 mls @ 100 mls/hr IV NOW STA Stop: 01/05/19 03:24 Last Infusion: 01/05/19 04:05 Dose: 0 mls/hr Documented by: [id number] Admin: 01/05/19 03:31 Dose: 100 mls/hr Documented by: [id number] Albumin Human (Albumin 25%) 50 mls @ 50 mls/hr IV ONE ONE Stop: 01/05/19 04:05 Last Infusion: 01/05/19 05:24 Dose: 0 mls/hr Documented by: [id number] Admin: 01/05/19 04:00 Dose: 50 mls/hr Documented by: [id number] Magnesium Sulfate/Dextrose (Magnesium Sulfate / D5w) 1 gm in 100 mls @ 100 mls/hr IV Q1H MARIANA Stop: 01/05/19 06:04 Last Infusion: 01/05/19 08:33 Dose: 0 mls/hr Documented by: [id number] Admin: 01/05/19 07:21 Dose: 100 mls/hr Documented by: [id number] Infusion: 01/05/19 07:16 Dose: 100 mls/hr Documented by: [id number] Admin: 01/05/19 06:16 Dose: 100 mls/hr Documented by: [id number] Sodium Chloride (Nss 1000ml) 1,000 mls @ 75 mls/hr IV .[id number] ONE Stop: 01/05/19 18:48 Last Infusion: 01/05/19 21:07 Dose: 0 mls/hr Documented by: [id number] Admin: 01/05/19 06:16 Dose: 75 mls/hr Documented by: [id number] Insulin Glargine (Lantus Solostar Pen) 10 units SQ ONE ONE Stop: 01/05/19 06:01 Last Admin: 01/05/19 07:30 Dose: 10 units Documented by: [id number] Cosigned by: [id number] Methylprednisolone (Solumedrol) 40 mg IV ONE ONE Stop: 01/05/19 03:31 Last Admin: 01/05/19 03:31 Dose: 40 mg Documented by: [id number] Nitroglycerin (Nitrostat) Confirm Administered Dose 0.4 mg .ROUTE .STK-MED ONE Stop: 01/05/19 00:16 Last Admin: 01/05/19 00:15 Dose: 0.4 mg Documented by: [id number] Nitroglycerin (Nitrostat) Confirm Administered Dose 0.4 mg .ROUTE .STK-MED ONE Stop: 01/05/19 00:28 Last Admin: 01/05/19 00:29 Dose: 0.4 mg Documented by: [id number] Nitroglycerin (Nitrostat) 0.4 mg SL NOW STA Stop: 01/05/19 00:31 Last Admin: 01/05/19 00:35 Dose: 0.4 mg Documented by: [id number] Nitroglycerin (Nitrostat) 0.4 mg SL NOW STA Stop: 01/05/19 04:33 Last Admin: 01/05/19 05:37 Dose: Not Given Documented by: [id number] Nitroglycerin (Nitrostat) Confirm Administered Dose 0.4 mg .ROUTE .STK-MED ONE Stop: 01/05/19 04:35 Last Admin: 01/05/19 04:35 Dose: 0.4 mg Documented by: [id number] Nitroglycerin (Nitrostat) Confirm Administered Dose 0.4 mg .ROUTE .STK-MED ONE Stop: 01/05/19 17:14 Last Admin: 01/05/19 17:29 Dose: 0.4 mg Documented by: [id number] Medical Decision Making Differential Diagnosis Differential diagnoses include: exacerbation of bronchiectasis, pneumonia, reactive airway disease, CHF, STEMI, and ACS. Medical Records Attestation: I reviewed the patient's medical records. Home Medications Current Medication List: was personally reviewed by me Laboratory Data Attestation: I reviewed the patient's lab results. Result diagrams: 01/04/19 23:54 01/04/19 23:54 Lab Results 01/04/19 01/04/19 01/05/19 Range/Units 23:54 23:54 00:42 WBC 12.74 H (4.8-10.8) K/uL RBC 3.67 L (4.2-5.4) M/uL Hgb 9.7 L (12.0-16.0) g/dL Hct 31.9 L (37-47) % MCV 86.9 (80-100) fL MCH 26.4 (25-34) pg MCHC 30.4 L (32-36) g/dL RDW Std Deviation 49.3 H (36.4-46.3) fL RDW Coeff of Adan 15.5 H (11.5-14.5) % Plt Count 251 (130-400) K/uL MPV 9.0 (7.4-10.4) fL Immature Gran % (Auto) 0.2 % Neut % (Auto) 79.3 % Lymph % (Auto) 13.5 % Faulk % (Auto) 5.5 % Eos % (Auto) 1.3 % Baso % (Auto) 0.2 % Immature Gran # (Auto) 0.03 H (0.00-0.02) K/uL Neut # (Auto) 10.10 H (1.4-6.5) K/uL Lymph # (Auto) 1.72 (1.2-3.4) K/uL Faulk # (Auto) 0.70 H (0.11-0.59) K/uL Eos # (Auto) 0.17 (0-0.5) K/uL Baso # (Auto) 0.02 (0-0.2) K/uL PT 10.4 (9.0-12.0) Seconds INR 1.0 (0.9-1.1) APTT 28.1 (21.0-31.0) Seconds PTT Ratio 1.0 ABG pH (7.35-7.45) ABG pCO2 (35-46) mmHg ABG pO2 (80-95) mm/Hg ABG HCO3 (19-24) mmol/L ABG O2 Saturation (90-95) % ABG Base Excess (-9-1.8) mEq/L Gui Test (Pos) Barometric Pressure mm/Hg Oxygen Given Sodium 134 L (136-145) mmol/L Potassium 4.0 (3.5-5.1) mmol/L Chloride 93 L (98-107) mmol/L Carbon Dioxide 34 H (21-32) mmol/L Anion Gap 7.0 (3-11) BUN 12 (7-18) mg/dl Creatinine 0.70 (0.6-1.2) mg/dl Est Cr Clr Drug Dosing 86.2 ml/min Est GFR ( Amer) 111.5 Est GFR (Non-Af Amer) 96.2 BUN/Creatinine Ratio 17.4 (10-20) Glucose 185 H (70-99) mg/dl Estimat Average Glucose mg/dl Hemoglobin A1c (4.5-5.6) % Lactate (0.4-2.0) mmol/L Calcium 8.8 (8.5-10.1) mg/dl Magnesium 1.7 L (1.8-2.4) mg/dl Total Bilirubin 0.3 (0.2-1) mg/dl AST 11 L (15-37) U/L ALT 13 (12-78) U/L Alkaline Phosphatase 86 (45-117) U/L Troponin I < 0.015 (0-0.045) ng/ml NT-Pro-B Natriuret Pep 204 (0-900) pg/ml Total Protein 7.9 (6.4-8.2) gm/dl Albumin 2.8 L (3.4-5.0) gm/dl Globulin 5.1 H (2.5-4.0) gm/dl Albumin/Globulin Ratio 0.5 L (0.9-2) Lipase (73-393) U/L 01/05/19 01/05/19 01/05/19 Range/Units 00:42 00:56 03:42 WBC (4.8-10.8) K/uL RBC (4.2-5.4) M/uL Hgb (12.0-16.0) g/dL Hct (37-47) % MCV (80-100) fL MCH (25-34) pg MCHC (32-36) g/dL RDW Std Deviation (36.4-46.3) fL RDW Coeff of Adan (11.5-14.5) % Plt Count (130-400) K/uL MPV (7.4-10.4) fL Immature Gran % (Auto) % Neut % (Auto) % Lymph % (Auto) % Faulk % (Auto) % Eos % (Auto) % Baso % (Auto) % Immature Gran # (Auto) (0.00-0.02) K/uL Neut # (Auto) (1.4-6.5) K/uL Lymph # (Auto) (1.2-3.4) K/uL Faulk # (Auto) (0.11-0.59) K/uL Eos # (Auto) (0-0.5) K/uL Baso # (Auto) (0-0.2) K/uL PT (9.0-12.0) Seconds INR (0.9-1.1) APTT (21.0-31.0) Seconds PTT Ratio ABG pH (7.35-7.45) ABG pCO2 (35-46) mmHg ABG pO2 (80-95) mm/Hg ABG HCO3 (19-24) mmol/L ABG O2 Saturation (90-95) % ABG Base Excess (-9-1.8) mEq/L Gui Test (Pos) Barometric Pressure mm/Hg Oxygen Given Sodium (136-145) mmol/L Potassium (3.5-5.1) mmol/L Chloride (98-107) mmol/L Carbon Dioxide (21-32) mmol/L Anion Gap (3-11) BUN (7-18) mg/dl Creatinine (0.6-1.2) mg/dl Est Cr Clr Drug Dosing ml/min Est GFR ( Amer) Est GFR (Non-Af Amer) BUN/Creatinine Ratio (10-20) Glucose (70-99) mg/dl Estimat Average Glucose 143 mg/dl Hemoglobin A1c 6.6 H (4.5-5.6) % Lactate 1.1 (0.4-2.0) mmol/L Calcium (8.5-10.1) mg/dl Magnesium (1.8-2.4) mg/dl Total Bilirubin (0.2-1) mg/dl AST (15-37) U/L ALT (12-78) U/L Alkaline Phosphatase (45-117) U/L Troponin I (0-0.045) ng/ml NT-Pro-B Natriuret Pep (0-900) pg/ml Total Protein (6.4-8.2) gm/dl Albumin (3.4-5.0) gm/dl Globulin (2.5-4.0) gm/dl Albumin/Globulin Ratio (0.9-2) Lipase 176 (73-393) U/L 01/05/19 Range/Units 03:42 WBC (4.8-10.8) K/uL RBC (4.2-5.4) M/uL Hgb (12.0-16.0) g/dL Hct (37-47) % MCV (80-100) fL MCH (25-34) pg MCHC (32-36) g/dL RDW Std Deviation (36.4-46.3) fL RDW Coeff of Adan (11.5-14.5) % Plt Count (130-400) K/uL MPV (7.4-10.4) fL Immature Gran % (Auto) % Neut % (Auto) % Lymph % (Auto) % Faulk % (Auto) % Eos % (Auto) % Baso % (Auto) % Immature Gran # (Auto) (0.00-0.02) K/uL Neut # (Auto) (1.4-6.5) K/uL Lymph # (Auto) (1.2-3.4) K/uL Faulk # (Auto) (0.11-0.59) K/uL Eos # (Auto) (0-0.5) K/uL Baso # (Auto) (0-0.2) K/uL PT (9.0-12.0) Seconds INR (0.9-1.1) APTT (21.0-31.0) Seconds PTT Ratio ABG pH 7.37 (7.35-7.45) ABG pCO2 64 H (35-46) mmHg ABG pO2 75 L (80-95) mm/Hg ABG HCO3 37 H (19-24) mmol/L ABG O2 Saturation 91.8 (90-95) % ABG Base Excess 9.4 H (-9-1.8) mEq/L Gui Test POS (Pos) Barometric Pressure 732.9 mm/Hg Oxygen Given 8L O2 Sodium (136-145) mmol/L Potassium (3.5-5.1) mmol/L Chloride (98-107) mmol/L Carbon Dioxide (21-32) mmol/L Anion Gap (3-11) BUN (7-18) mg/dl Creatinine (0.6-1.2) mg/dl Est Cr Clr Drug Dosing ml/min Est GFR ( Amer) Est GFR (Non-Af Amer) BUN/Creatinine Ratio (10-20) Glucose (70-99) mg/dl Estimat Average Glucose mg/dl Hemoglobin A1c (4.5-5.6) % Lactate (0.4-2.0) mmol/L Calcium (8.5-10.1) mg/dl Magnesium (1.8-2.4) mg/dl Total Bilirubin (0.2-1) mg/dl AST (15-37) U/L ALT (12-78) U/L Alkaline Phosphatase (45-117) U/L Troponin I (0-0.045) ng/ml NT-Pro-B Natriuret Pep (0-900) pg/ml Total Protein (6.4-8.2) gm/dl Albumin (3.4-5.0) gm/dl Globulin (2.5-4.0) gm/dl Albumin/Globulin Ratio (0.9-2) Lipase (73-393) U/L Imaging Data Attestation: I personally reviewed and interpreted this imaging study as follows: My Impression: CHEST X-RAY: Chronic interstitial lung disease. Mediport in place. Multifocal air space consolidation, improved since 11/30/2018. ECG Data Attestation: I personally reviewed and interpreted this ECG as follows: Indication: chest pain Rate (beats per minute): 125 Rhythm: sinus tachycardia Findings: + ST depression (inferiorly and laterally) Comparison ECG Date: from (12/01/2018) Change: the following changes noted (Compared to prior, ST depressions are new.) Additional Comments: EKG #2: Sinus tachycardia, 109, ST segment depression inferiorly, anteriorly, and laterally. Blood Pressure Blood Pressure Findings: Low blood pressure Blood Pressure Disposition: further management by hospitalist MELVI King The patient is a 58 year old female who presents to the emergency department with complaints of constant chest pain beginning last night. The patient has a history of bronchiectasis and has had some increasing shortness of breath over the past couple of days but the chest pain was something new for her. She described as left-sided and tight. She did have some associated nausea. Twelve-lead EKG showed some concerns for ischemia with ST segment depression in the inferior and lateral leads. First troponin was negative. Chest x-ray was consistent with her chronic bronchiectasis. Difficult to determine if there is some underlying opacities bilaterally. The patient was treated with IV antibiotics because of the productive cough and increased shortness of breath. However, I am most concerned about the patient's difficult hypoxia for EMS and her chest discomfort. I discussed the case with the [facility] Hospitalist and they will evaluate for further management. Impression & Plan Hypoxia, Bronchiectasis, Left-sided chest pain, Acute electrocardiogram changes Critical Care Time Critical Care Time: Yes Total Critical Care Time: 45 I have personally spent 45 minutes of critical care time in the direct management of this patient. This includes bedside care, interpretation of diagnostic studies, and testing, discussion with consultants, patient, and family members, and other required patient management activities. This 45 minutes is in excess of all separately billable procedures. Discharge Plan Visit Data *Final* Discharge Date/Time: 01/05/19 04:53 Chief Complaint: Cardiac Assessment Stated Complaint: CHEST PAIN/BACK PAIN/SOB,HIGH HEART RATE ED Provider: Symone Palomino Discharge Problem: Hypoxia, Bronchiectasis, Left-sided chest pain, Acute electrocardiogram changes Patient Disposition: Admitted As Inpatient Discharge Instructions Interventions: ED Discharge Assessment Last Done: 01/05/19 04:53 Discharge Problem: Bronchiectasis Qualifiers: Bronchiectasis type: uncomplicated Qualified Code(s): J47.9 - Bronchiectasis, uncomplicated The scribe's documentation has been prepared under my direction and personally reviewed by me in its entirety. I confirm that the note above accurately r eflects all work, treatment, procedures, and medical decision making performed by me.
[2019-01-05] MEDS ORDERED: TOBRAMYCIN INH SCH (09:00)
[2019-01-05] MEDS ORDERED: NACL INH SCH (09:00)
--- NOTE | 2019-01-05 10:15 | Pulmonary Consultation ---
Date of Consultation January 05, 2019 Assessment & Plan (1) Hypoxia: (2) Bronchiectasis: I agree with current institution of therapy that includes inhaled JEFFERY, aerosolized bronchodilator, IV Bactrim(most recent culture that grew out Stenotrophomonas maltophilia showed it to be sensitive to sulfa) prednisone therapy and agree with the current dosing as there is much less bronchospasm audible today. I would continue flutter valve and a vibration vest and 7% normal saline twice daily to help with airway clearance. We will follow along with you. Thank you very much for this consultation. Bronchiectasis type: uncomplicated Qualified Code(s): J47.9 - Bronchiectasis, uncomplicated (3) Left-sided chest pain: (4) Prolonged Q-T interval on ECG: (5) Acute and chronic respiratory failure: (6) Acute exacerbation of bronchiectasis: (7) CVID (common variable immunodeficiency): (8) Oxygen dependent: (9) Steroid-induced diabetes: (10) Mild pulmonary hypertension: History of Present Illness Attending Physician: Emiliana Calderon MD 58-year-old white female known to me with severe chronic bronchiectasis, COPD, chronic respiratory failure on home oxygen from 2.5 to 4 L via nasal cannula continually and with the use of a trilogy unit at night with noninvasive positive pressure ventilation. 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 Patient was hospitalized most recently from 11/30/2018 to 12/09/2018 with a diagnosis of acute and chronic respiratory failure. CTA at that time showed severe bilateral varicoid bronchiectasis with multifocal mucous plugging, air trapping, tree-in-bud nodules with subpleural reticulation and scattered subpleural predominant consolidation. No evidence of pulmonary thromboembolic disease was seen. Sputum grew out Stenotrophomonas maltophilia patient was given 2 weeks of IV antibiotics in the form of cefepime, aerosolized bronchodilator and steroid therapy as well as inhaled JEFFERY. States she has had 4 treatments with the latter since her discharge. She was to be tapered down to 20 mg of prednisone. She has had right-sided chest discomfort felt to be musculoskeletal in origin from severe paroxysms of coughing and a degree of intercostal neuralgia. She has had prolonged QT interval on EKG thus levofloxacin has been held and sertraline as well. 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 During her most recent hospitalization she was seen in consultation by Dr. Ulrich and Dr. Hall. He does have a history of multidrug-resistant Acinetobacter, stenotrophomonas, MSSA w other organisms as well. Patient was started on IV cefepime and continue for 2 weeks. Has had significant airway clearance therapy that includes chest physiotherapy flutter valve hypertonic saline and aerosolized bronchodilator. Tonics was continued. There was an issue of whether the bronchiectasis may be related to chronic aspiration. She has undergone endoscopic sinus surgery multiple occasions in the past. PFTs have shown severe obstruction and hyperinflation. She had a history of a spontaneous pneumothorax with pneumomediastinum resolved. When asked as to why she was admitted this time she states she felt poorly was short of breath but most of the 2 weeks that she was home she felt reasonably well although has always been dyspneic with even modest exertion. She is chronically anemic. White count was 12,700 on admission with an H&H of 9.7 and 31.9 with mixed indices. Slight leftward shift noted. ABGs revealed a pH 7.37 PCO2 64 PO2 75 on 8 L in the ER. Most recent IgG level has been adequate following infusion. CTA done today shows no acute pulmonary thromboembolic disease may be a small chronic thrombus and a lingular interlobar pulmonary artery. Change mediastinal lymphadenopathy and no acute changes from the chronic changes seen on 11/30/2018. Right shoulder prosthesis is noted and probable avascular necrosis in the left femoral head is seen. Allergies Allergy/AdvReac Type Severity Reaction Status Date / Time albuterol AdvReac Mild CHEST Verified 01/05/19 00:47 PAIN, LEVALBUTEROL OK oxycodone AdvReac Mild CAUSES Verified 01/05/19 00:47 DEPRESSION Home Medications Home Medications Medication Instructions Recorded Confirmed Type Caltrate 600-D Plus Minerals 1 tab PO BID 12/17/17 01/05/19 History Gammagard Liquid 0 mg/kg IV MONTHLY 12/17/17 01/05/19 History Probiotic 1 tab PO QPM 12/17/17 01/05/19 History acetaminophen 1,000 mg PO Q6H PRN 12/17/17 01/05/19 History ascorbic acid (vitamin C) 250 mg PO DAILY 12/17/17 01/05/19 History cyanocobalamin (vitamin B-12) 1,000 mcg PO DAILY 12/17/17 01/05/19 History folic acid 1 mg PO QPM 12/17/17 01/05/19 History guaifenesin 1,200 mg PO Q12H PRN 12/17/17 01/05/19 History hydrocortisone 10 mg PO QAM 12/17/17 01/05/19 History magnesium oxide 400 mg PO DAILY 12/17/17 01/05/19 History multivitamin 1 tab PO DAILY 12/17/17 01/05/19 History pantoprazole 40 mg PO DAILY 12/17/17 01/05/19 History Breo Ellipta 1 inh INHALATION DAILY 04/21/18 01/05/19 History Novolog Flexpen U-100 Insulin See Rx Instructions .ROUTE .COMPLEX 04/21/1812/11 History metoprolol succinate 50 mg PO DAILY 11/14/18 01/05/19 History albuterol sulfate HFA 90 2 puff INHALATION Q4 PRN gm 11/24/18 01/05/19 History mcg/actuation aerosol inhaler ipratropium bromide 0.02 % 2.5 ml INH Q4H PRN #150 ml 11/24/18 01/05/19 Rx solution for inhalation levalbuterol 1.25 mg/3 mL solution 1.25 mg INH Q4H PRN #90 ml 11/24/18 01/05/19 Rx for nebulization silver sulfadiazine 1 % topical 1 appln TOP BID 12/15/18 01/05/19 History cream tobramycin 300 mg/5 mL in 0.225 % 300 mg INH BID 28 Days #280 ml 12/26/18 01/05/19 Rx sodium chloride for nebulization Patient History Medical History Arrhythmia Mediastinal adenopathy Prolonged Q-T interval on ECG Acute and chronic respiratory failure Acute bronchitis (Acute) CVID (common variable immunodeficiency) (Chronic) Receives monthly IVIG infusions COPD (chronic obstructive pulmonary disease) (Chronic) Oxygen dependent (Chronic) "2L-4L" On 04/29/17 18:15 Maine Martínez wrote "4L" On 04/08/15 18:56 Adriana Morales wrote "2L" Steroid-induced diabetes (Chronic) BILL (obstructive sleep apnea) (Chronic) Depression (Chronic) Mild pulmonary hypertension (Chronic) 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) Anxiety (Chronic) Bronchiectasis (Chronic) GERD (gastroesophageal reflux disease) (Chronic) Hypogammaglobulinemia (Chronic) Hyperlipidemia (Chronic) Chronic respiratory failure (Chronic) Pneumomediastinum (Resolved) Pneumothorax (Resolved) Depression Hypogammaglobulinemia Surgical History H/O atrial septal defect repair (Resolved) H/O total shoulder replacement (Resolved) H/O: hysterectomy (Resolved) History of hysterectomy (Resolved) History of left hip replacement (Resolved) History of myringotomy (Resolved) History of right hip replacement (Resolved) Hx of appendectomy (Resolved) Hx of cholecystectomy (Resolved) Hx of tympanostomy tubes (Resolved) S/P bronchoscopy (Resolved) S/P section (Resolved) S/P sinus surgery (Resolved) S/P tonsillectomy and adenoidectomy (Resolved) Social History Preferred Language: Kyrgyz Communication Ability: Effective [employer] Operator Required: No Beliefs That Will Affect Care: None marital status: Current Living Situation: Alone current occupational status: disabled Other Information That Helps Us Care for You: No Feels Safe at Home: Yes Safety Concerns: Feels Safe At This Time Smoking Status: Never smoker Second Hand Exposure: No ; Hx Alcohol Use: No Hx Substance Use: No Review of Systems Constitutional: no problem reported Eyes: no problem reported Ear, Nose, Mouth, Throat: no problem reported Respiratory: no problem reported Cardiovascular: no problem reported Gastrointestinal: no problem reported Genitourinary: no problem reported Musculoskeletal: no problem reported Integumentary: no problem reported Neurologic: no problem reported Psychiatric: no problem reported Endocrine: no problem reported Hematologic / Lymphatic: no problem reported Allergy / Immunological: no problem reported Physical Exam Constitutional: well developed and well nourished; no acute distress Eyes: PERRL, conjunctivae normal, anicteric sclerae ENMT: external ear and nose normal, oropharynx normal Neck: trachea midline, no thyromegaly Respiratory: normal respiratory effort, + hyperresonance to percussion and + prolonged expiratory phase Auscultation: + wheezes (Scattered rhonchi and wheeze especially right base with bibasilar rales) Cardiovascular: RRR, no murmur, no edema Palpation: normal PMI; no thrill Gastrointestinal (Abdomen): normal bowel sounds, soft, nontender, no hepatosplenomegaly Musculoskeletal: no cyanosis or clubbing, extremities motor strength 5/5 Gait: normal gait Skin: no rashes, warm and dry Neurologic: PERRL, EOMI, accommodation nl, no face palsy, no dysarthria Psychiatric: A+Ox3, euthymic affect Lymphatic: no cervical or axillary lymphadenopathy Results & Data Vital Signs (Past 12 Hours) Vital Signs Temp Pulse Pulse Pulse Resp BP BP 01/05/19 08:07 36.5 C 92 H 23 120/71 01/05/19 08:00 88 01/05/19 06:59 79 18 01/05/19 05:15 36.7 C 101 H 92 H 22 115/74 01/05/19 04:25 99 H 22 124/74 01/05/19 04:15 89 15 102/79 01/05/19 03:59 36.6 C 87 15 108/75 01/05/19 02:28 88 18 94/40 L 01/05/19 01:25 101 H 22 103/60 01/05/19 00:51 01/05/19 00:48 112 H 22 01/05/19 00:28 118 H 29 H 104/69 01/05/19 00:06 01/04/19 23:39 37.0 C 121 H 32 H 157/88 H Pulse Ox 01/05/19 08:07 90 01/05/19 08:00 01/05/19 06:59 98 01/05/19 05:15 92 01/05/19 04:25 94 01/05/19 04:15 93 01/05/19 03:59 95 01/05/19 02:28 97 01/05/19 01:25 94 01/05/19 00:51 94 01/05/19 00:48 92 01/05/19 00:28 93 01/05/19 00:06 92 01/04/19 23:39 81 L Laboratory Results Abnormal Labs 01/04/19 01/04/19 01/05/19 23:54 23:54 00:42 WBC 12.74 H RBC 3.67 L Hgb 9.7 L Hct 31.9 L MCHC 30.4 L RDW Std Deviation 49.3 H RDW Coeff of Adan 15.5 H Immature Gran # (Auto) 0.03 H Neut # (Auto) 10.10 H Edwards # (Auto) 0.70 H ABG pCO2 ABG pO2 ABG HCO3 ABG Base Excess Sodium 134 L Chloride 93 L Carbon Dioxide 34 H Glucose 185 H POC Glucose Hemoglobin A1c 6.6 H Magnesium 1.7 L AST 11 L Albumin 2.8 L Globulin 5.1 H Albumin/Globulin Ratio 0.5 L 01/05/19 01/05/19 03:42 07:32 WBC RBC Hgb Hct MCHC RDW Std Deviation RDW Coeff of Adan Immature Gran # (Auto) Neut # (Auto) Edwards # (Auto) ABG pCO2 64 H ABG pO2 75 L ABG HCO3 37 H ABG Base Excess 9.4 H Sodium Chloride Carbon Dioxide Glucose POC Glucose 226 H Hemoglobin A1c Magnesium AST Albumin Globulin Albumin/Globulin Ratio Diagnostic Findings CT Scan Report Patient: FRANK LANdmit Date: 01/05/19 MR#: [id number]: [address] [facility] Acct ID:[id number]: Date: [address] [place] [address] Zip: [place] [address] Age: 58Location: 2S Sex: F Room/Bed: Rust Att Phy: Emiliana Calderon M.D.Diagnosis: RESP FAILURE Cindi Phy: Ivonne Subramanian CRNPService Date: 01/05/19 Fam Phy:Interpreting Phy: Troy Collier MD Admit Phy: Devaughn Silverio MD Ordering Phy: Devaughn Silverio MD cc: ~ CHEST CTA for PULMONARY ARTERIES CT DOSE: 472.94 mGy.cm HISTORY: Shortness of breath. TECHNIQUE: Multiaxial CT images of the chest were performed following the intravenous administration of contrast to evaluate the pulmonary arteries. Maximal intensity projection images were also obtained. A dose lowering technique was utilized adhering to the principles of ALARA. COMPARISON STUDY: Chest CTA 11/30/2018. FINDINGS: Normal caliber thoracic aorta with no evidence for dissection. No change in the calcifications within the SVC adjacent to the right jugular Port-A-Cath. The heart is normal in size. No pleural or pericardial effusions. Tiny linear filling defect seen within a lingular pulmonary artery best seen on image 190. This is consistent with a small nonocclusive chronic thrombus. No acute pulmonary embolus identified. There is a right shoulder prosthesis. Probable avascular necrosis within the left femoral head which is only partially visualized. There are poststernotomy changes. The visualized liver and spleen are unremarkable. Mild esophageal wall thickening, unchanged. Mild mediastinal lymphadenopathy, unchanged. No pneumothorax. Overall, similar appearance within the lungs with severe bilateral varicose bronchiectasis, multifocal mucous plugging, air trapping, tree-in-bud nodules, subpleural reticulation, and scattered subpleural consolidation. IMPRESSION: 1. No acute pulmonary embolus. Tiny linear nonocclusive filling defect within a lingular pulmonary artery favors a small chronic thrombus. 2. Calcifications surrounding the catheter within the SVC also consistent with chronic thrombus. This remains unchanged. 3. Unchanged mediastinal lymphadenopathy. 4. No significant change in the extensive acute on chronic lung disease as described above. Electronically signed by: Troy Collier M.D. 01/05/2019 7:11 AM Dictated: 01/05/19 0703 Medications Administered Current Inpatient Medications Acetaminophen (Tylenol) 650 mg PO Q4H PRN PRN Reason: Pain or Fever Stop: 02/04/19 05:28 Cyanocobalamin (Vitamin B-12) 1,000 mcg PO DAILY MARIANA Stop: 02/04/19 08:59 Last Admin: 01/05/19 07:31 Dose: 1,000 mcg Documented by: Dextrose (Dextrose 50%) 25 - 50 ml IV UD PRN; Protocol PRN Reason: Hypoglycemia Protocol Stop: 02/04/19 05:28 Enoxaparin Sodium (Lovenox) 30 mg SQ QAM MARIANA Stop: 02/04/19 08:59 Last Admin: 01/05/19 07:31 Dose: 30 mg Documented by: Folic Acid (Folvite) 1 mg PO QPM MARIANA Stop: 02/04/19 20:59 Glucagon (Glucagen) 1 mg SQ UD PRN; Protocol PRN Reason: Hypoglycemia Protocol Stop: 02/04/19 05:28 Glucose (Glucose 40%) 15 - 30 gm PO UD PRN; Protocol PRN Reason: Hypoglycemia Protocol Stop: 02/04/19 05:28 Glucose (Dex4 Glucose) 4 - 8 tabs PO UD PRN; Protocol PRN Reason: Hypoglycemia Protocol Stop: 02/04/19 05:28 Guaifenesin (Mucinex) 1,200 mg PO Q12H PRN PRN Reason: Congestion Stop: 02/04/19 05:28 Sodium Chloride (Nss 1000ml) 1,000 mls @ 75 mls/hr IV .[id number] ONE Stop: 01/05/19 18:48 Last Admin: 01/05/19 06:16 Dose: 75 mls/hr Documented by: Promethazine HCl 12.5 mg/ (Sodium Chloride) 50.5 mls @ 202 mls/hr IV Q6H PRN PRN Reason: Nausea And Vomiting Stop: 02/04/19 05:28 Trimethoprim/Sulfamethoxazole (275 mg/ Dextrose) 517.1875 mls @ 333 mls/hr IV Q6 MARIANA; Protocol Stop: 01/12/19 06:14 Last Infusion: 01/05/19 09:16 Dose: Infused Documented by: Tobramycin Sulfate 300 mg/ (Syringe) 7.5 mls @ 0.033 mls/min INH BID MARIANA Stop: 01/12/19 08:59 Insulin Aspart (Novolog Flexpen) 0 units SC ACHS MARIANA Stop: 02/04/19 05:59 Last Admin: 01/05/19 08:11 Dose: 4 units Documented by: Insulin Glargine (Lantus Solostar Pen) 10 units SQ DAILY MARIANA Stop: 02/05/19 08:59 Ioversol (Optiray 320 125ml) 116 ml IV ONCE PRN PRN Reason: Interaction Checking Stop: 01/09/19 04:56 Last Admin: 01/05/19 04:58 Dose: 1 ml Documented by: Ipratropium [place] (Atrovent 0.02% 0.5mg/2.5ml) 0.5 mg INH Q6R MARIANA Stop: 02/04/19 06:59 Last Admin: 01/05/19 06:57 Dose: 0.5 mg Documented by: Levalbuterol HCl (Xopenex 1.25mg/0.5ml Neb) 1.25 mg INH Q6R MARIANA Stop: 02/04/19 06:59 Last Admin: 01/05/19 06:57 Dose: 1.25 mg Documented by: Magnesium Oxide (Mag-Ox) 400 mg PO DAILY MARIANA Stop: 02/04/19 08:59 Last Admin: 01/05/19 07:32 Dose: 400 mg Documented by: Metoprolol Succinate (Toprol Xl) 25 mg PO DAILY MARIANA Stop: 02/04/19 08:59 Last Admin: 01/05/19 07:32 Dose: 25 mg Documented by: Miscellaneous (Carbohydrates For Hypoglycemia) 15 - 30 gm PO UD PRN PRN Reason: Hypoglycemia Treatment Stop: 02/04/19 05:28 Miscellaneous Information () 1 ea N/A UD PRN PRN Reason: Consult Stop: 02/04/19 06:08 Morphine Sulfate (Morphine Sulfate) 2 mg IV Q4H PRN PRN Reason: Pain Stop: 01/19/19 05:28 Multivitamins (Multivitamin Tab) 1 tab PO DAILY MARIANA Stop: 02/04/19 08:59 Last Admin: 01/05/19 07:32 Dose: 1 tab Documented by: Pantoprazole Sodium (Protonix) 40 mg PO DAILY MARIANA Stop: 02/04/19 08:59 Last Admin: 01/05/19 07:31 Dose: 40 mg Documented by: Prednisone (Prednisone) 40 mg PO DAILY MARIANA Stop: 01/10/19 08:59 Tramadol HCl (Ultram) 25 mg PO Q4H PRN PRN Reason: Pain Stop: 02/04/19 05:28 PG Care Time/CCT Total # of Minutes Spent Total Time Spent with Patient: Total time spent is greater than 50% in coordination of care (as documented) at patient's floor/unit and/or counseling patient:
[2019-01-05] MEDS: TOBRAMYCIN SULFATE 300 MG in SYRINGE 0 ML INH SCH ×2 (10:49→20:16)
--- NOTE | 2019-01-05 12:38 | Hospitalist Progress Note ---
Date of Service January 05, 2019 Assessment & Plan (1) Acute hypoxemic respiratory failure: 2) COPD (chronic obstructive pulmonary disease): (3) Acute exacerbation of bronchiectasis: Possible related to COPD exacerbation and bronchiectasis. CTA chest showed no significant change in the extensive acute on chronic lung disease as described above. No evidence of acute pulmonary thromboembolic disease. CXR showed no change compared to the prior study that was done Sputum cx in the pass grew gram negative rods (Stenotrophomonas) Pulmonary on board recommended to continue prednisone, tobramycin inhaler and IV bactrim Continue trilogy at night for her chronic hypercapnic respiratory failure. Continue oxygen supplement and Neb treatment (4) Right-sided chest pain: CTA chest negative for pulmonary embolism. Echo pending (5) Mediastinal adenopathy: Noted on current and previous CT, unchanged. (6) Prolonged Q-T interval on ECG: EKG on admission showed QTC of 499 Will avoid medication that increase QTC such as levofloxacin Sertraline on hold Repeat EKG this morning showed QTc 437 (7) Steroid-induced diabetes: Continue insulin sliding scale Continue monitor BS (8) Hypogammaglobulinemia: Receives immunoglobulin infusions monthly. (9) DVT prophylaxis: SQ enoxaparin/Ambulate as able. (10) Disposition Will discharge once medically stable Subjective Pt was seen and examined Sitting in bed with no distress playing game in her tablet Pt said that her breathing feels much better today She said that she has been coughing up phlegm Denies any chest pain, palpitation and fever Physical Exam Physical Exam: General- No acute distress Head- atraumatic Eyes- PERRL, EOMI, ENT- oropharynx clear Neck- supple, no JVD Lungs- diminished BS Heart- regular rhythm; no murmur Abdomen- normal bowel sounds, soft, nontender Extremities- no calf tenderness Neuro- alert, oriented, PERRL, EOMI; no facial palsy; no dysarthria Skin- warm & dry Results & Data Vital Signs (Past 12 Hours) Vital Signs Temp Pulse Pulse Pulse Resp BP Pulse Ox 01/05/19 11:21 36.5 C 89 23 105/68 95 01/05/19 10:50 109 H 18 91 01/05/19 08:07 36.5 C 92 H 23 120/71 90 01/05/19 08:00 88 01/05/19 06:59 79 18 98 01/05/19 05:15 36.7 C 101 H 92 H 22 115/74 92 01/05/19 04:25 99 H 22 124/74 94 01/05/19 04:15 89 15 102/79 93 01/05/19 03:59 36.6 C 87 15 108/75 95 01/05/19 02:28 88 18 94/40 L 97 01/05/19 01:25 101 H 22 103/60 94 01/05/19 00:51 94 01/05/19 00:48 112 H 22 92
[2019-01-05] MEDS ORDERED: NITROGLYCERIN SL 0.4 MG/TAB TAB SL PRN (17:23)
[2019-01-05] MEDS: PROMETHAZINE HCL 12.5 MG in SODIUM CHLORIDE 0.9% 50 ML IV PRN (20:14)
[2019-01-05] MEDS: FOLIC ACID 1 MG TAB PO SCH (20:33)
[2019-01-05] MEDS ORDERED: [UNRECOGNIZED DRUG - OTHER] PO SCH (21:00)
[2019-01-05] MEDS: ACETAMINOPHEN 325 MG TAB PO PRN (23:38)
[2019-01-06] MEDS: IPRATROPIUM BROMIDE NEB SOLN 0.02% 2.5 ML VIAL INH SCH ×4 (00:25→19:15)
[2019-01-06] MEDS: LEVALBUTEROL 1.25MG/0.5ML NEB INH SCH ×4 (00:26→19:14)
[2019-01-06] MEDS ORDERED: methylPREDNISolone 40 MG in SYRINGE 0 ML IV ONE (01:30)
[2019-01-06] MEDS: MoRPHine SULFATE 2 MG/ML CARP IV PRN (02:40)
[2019-01-06 06:38] LABS: Basophils # (auto) 0.01 K/uL (0-0.2); Basophils % (auto) 0.1 %; Eosinophils # (auto) 0.01 K/uL (0-0.5); Eosinophils % (auto) 0.1 %; Hematocrit (blood only) 28.7 % (37-47); Immature Granulocytes # (auto) 0.03 K/uL (0.00-0.02); Immature Granulocytes % (auto) 0.4 %; Lymphocytes # (auto) 0.46 K/uL (1.2-3.4); Lymphocytes % (auto) 5.4 %; Mean Corpuscular Hemoglobin 26.8 pg (25-34); Mean Corpuscular Hgb Conc 31.4 g/dL (32-36); Mean Corpuscular Volume 85.4 fL (80-100); Monocytes # (auto) 0.11 K/uL (0.11-0.59); Monocytes % (auto) 1.3 %; Neutrophils # (auto) 7.88 K/uL (1.4-6.5); Neutrophils % (auto) 92.7 %; Platelet Count 228 K/uL (130-400); RDW Coefficient of Variation 15.5 % (11.5-14.5); RDW Standard Deviation 48.5 fL (36.4-46.3); Red Blood Count 3.36 M/uL (4.2-5.4)
[2019-01-06] MEDS: TOBRAMYCIN SULFATE 300 MG in SYRINGE 0 ML INH SCH ×2 (07:03→19:15)
[2019-01-06] MEDS: METOPROLOL SUCC 25MG EXT REL TAB PO SCH (07:28)
[2019-01-06] MEDS: CYANOCOBALAMIN 500 MCG TABLET (VITAMIN B-12) PO SCH (07:28)
[2019-01-06] MEDS: MAGNESIUM OXIDE 400 MG TAB PO SCH (07:28)
[2019-01-06] MEDS: MULTIVITAMIN TAB PO SCH (07:29)
[2019-01-06] MEDS: predniSONE 20 MG TAB PO SCH (07:29)
[2019-01-06 07:30] LABS: BUN Creatinine Ratio 12.7 (10-20); Calcium 8.8 mg/dl (8.5-10.1); Creatinine Clr Calc Pharmacy 72.2 ml/min; Est GFR (African American) 90.7; Est GFR (Non-African American) 78.3; Magnesium 2.3 mg/dl (1.8-2.4); Potassium 4.9 mmol/L (3.5-5.1)
[2019-01-06] MEDS: ENOXAPARIN INJ 30 MG/0.3 ML SYR SQ SCH (07:30)
[2019-01-06] MEDS: PANTOprazole 40 MG TAB PO SCH (07:30)
--- NOTE | 2019-01-06 07:57 | XRay Report ---
XR chest 1V portable HISTORY: Shortness of breath. COMPARISON: Chest 01/05/2019. FINDINGS: No pneumothorax. Right jugular Port-A-Cath terminates at the SVC. The heart is stable in si ze. There are poststernotomy changes. Diffuse interstitial opacities and nodular densities persist. L eft humeral head avascular necrosis is again noted. IMPRESSION: No change in the reticulonodular interstitial changes. Electronically signed by: Troy Collier M.D. 01/06/2019 7:56 AM
[2019-01-06] MEDS: INSULIN GLARGINE SOLOSTAR 100 UNITS/ML 3 ML PEN SQ SCH (08:19)
[2019-01-06] MEDS: INSULIN ASPART 100 UNITS/ML 3 ML PEN SC SCH ×4 (08:19→20:54)
[2019-01-06] MEDS ORDERED: predniSONE 20 MG TAB PO SCH (09:00)
[2019-01-06] MEDS: SULFA/TRIMETH 400/80MG TAB PO SCH ×4 (09:13→20:55)
--- NOTE | 2019-01-06 11:45 | Pulmonology Progress Note ---
Date of Service January 06, 2019 Assessment & Plan (1) Hypoxia: (2) Bronchiectasis: Would continue current therapy. Patient is anemic not to the point where she requires transfusion. Will check iron kinetics. The development of mild to moderate pulmonary hypertension is expected. I would place patient also on daily diuretic with potassium and may need an increase in her long-acting insulin even her steroid dose and dependence in order to achieve better glucose control. This in turn will help her fight infection better. Bronchiectasis type: uncomplicated Qualified Code(s): J47.9 - Bronchiectasis, uncomplicated (3) Acute and chronic respiratory failure: (4) Acute exacerbation of bronchiectasis: (5) CVID (common variable immunodeficiency): (6) Oxygen dependent: (7) Steroid-induced diabetes: (8) BILL (obstructive sleep apnea): (9) Mild pulmonary hypertension: (10) Anemia: Subjective 58-year-old with severe varicoid bronchiectasis acute exacerbation. Patient currently tolerating and receiving noninvasive positive pressure ventilation at night with continued O2 support and supplementation. She is on IV Bactrim in therapeutic dosage and vigorous pulmonary toilet with airway clearance measures. She was sleeping comfortably when I awakened her this morning. Echocardiogram shows normal LVEF PA systolic pressures close to 60 mmHg. That has increased since June 2017 not surprisingly. Treatment rendered for her pulmonary hypertension is addressing her underlying lung disease . EKG this morning shows normal sinus rhythm with short UT and nonspecific ST segment changes. Chest x- ray shows no acute changes or evidence of fluid overload and she is well saturated at 91% on 4 L of O2 via nasal cannula. She remains quite anemic with an H&H of 9.0 and 28.7 and will check iron kinetics. Review of Systems Constitutional: no problem reported Eyes: no problem reported Ear, Nose, Mouth, Throat: no problem reported Respiratory: no problem reported Cardiovascular: no problem reported Gastrointestinal: no problem reported Genitourinary: no problem reported Musculoskeletal: no problem reported Integumentary: no problem reported Neurologic: no problem reported Psychiatric: no problem reported Endocrine: no problem reported Hematologic / Lymphatic: no problem reported Allergy / Immunological: no problem reported Physical Exam Constitutional: well developed and well nourished; no acute distress Eyes: PERRL, conjunctivae normal, anicteric sclerae ENMT: external ear and nose normal, oropharynx normal Neck: trachea midline, no thyromegaly Respiratory: normal respiratory effort and + hyperresonance to percussion Auscultation: + wheezes (Scattered wheeze with fine rales at the bases) Cardiovascular: RRR, no murmur, no edema Palpation: normal PMI; no thrill Gastrointestinal (Abdomen): normal bowel sounds, soft, nontender, no hepatosplenomegaly Musculoskeletal: no cyanosis or clubbing, extremities motor strength 5/5 Gait: normal gait Skin: no rashes, warm and dry Neurologic: PERRL, EOMI, accommodation nl, no face palsy, no dysarthria Psychiatric: A+Ox3, euthymic affect Lymphatic: no cervical or axillary lymphadenopathy Results & Data Vital Signs (Past 12 Hours) Vital Signs Temp Pulse Pulse Pulse Resp BP BP 01/06/19 08:00 36.6 C 92 H 94 H 20 117/72 01/06/19 07:04 78 19 01/06/19 02:43 36.6 C 94 H 20 117/67 01/06/19 00:45 90 01/06/19 00:26 93 H 22 01/06/19 00:07 36.8 C 92 H 20 122/66 Pulse Ox 01/06/19 08:00 91 01/06/19 07:04 96 01/06/19 02:43 93 01/06/19 00:45 01/06/19 00:26 92 01/06/19 00:07 96 Laboratory Results Abnormal Labs 01/04/19 01/04/19 01/05/19 23:54 23:54 00:42 WBC 12.74 H RBC 3.67 L Hgb 9.7 L Hct 31.9 L MCHC 30.4 L RDW Std Deviation 49.3 H RDW Coeff of Adan 15.5 H Immature Gran # (Auto) 0.03 H Neut # (Auto) 10.10 H Lymph # (Auto) [place] # (Auto) 0.70 H ABG pCO2 ABG pO2 ABG HCO3 ABG Base Excess Sodium 134 L Chloride 93 L Carbon Dioxide 34 H Glucose 185 H POC Glucose Hemoglobin A1c 6.6 H Magnesium 1.7 L AST 11 L Albumin 2.8 L Globulin 5.1 H Albumin/Globulin Ratio 0.5 L 01/05/19 01/05/19 01/05/19 03:42 07:32 11:37 WBC RBC Hgb Hct MCHC RDW Std Deviation RDW Coeff of Adan Immature Gran # (Auto) Neut # (Auto) Lymph # (Auto) [place] # (Auto) ABG pCO2 64 H ABG pO2 75 L ABG HCO3 37 H ABG Base Excess 9.4 H Sodium Chloride Carbon Dioxide Glucose POC Glucose 226 H 291 H Hemoglobin A1c Magnesium AST Albumin Globulin Albumin/Globulin Ratio 01/05/19 01/05/19 01/06/19 16:06 20:22 06:08 WBC RBC 3.36 L Hgb 9.0 L Hct 28.7 L MCHC 31.4 L RDW Std Deviation 48.5 H RDW Coeff of Adan 15.5 H Immature Gran # (Auto) 0.03 H Neut # (Auto) 7.88 H Lymph # (Auto) 0.46 L [place] # (Auto) ABG pCO2 ABG pO2 ABG HCO3 ABG Base Excess Sodium Chloride Carbon Dioxide Glucose POC Glucose 149 H 111 H Hemoglobin A1c Magnesium AST Albumin Globulin Albumin/Globulin Ratio 01/06/19 01/06/19 01/06/19 06:08 07:37 11:13 WBC RBC Hgb Hct MCHC RDW Std Deviation RDW Coeff of Adan Immature Gran # (Auto) Neut # (Auto) Lymph # (Auto) [place] # (Auto) ABG pCO2 ABG pO2 ABG HCO3 ABG Base Excess Sodium 132 L Chloride 93 L Carbon Dioxide 33 H Glucose 173 H POC Glucose 209 H 350 H* Hemoglobin A1c Magnesium AST Albumin Globulin Albumin/Globulin Ratio 01/06/19 11:16 WBC RBC Hgb Hct MCHC RDW Std Deviation RDW Coeff of Adan Immature Gran # (Auto) Neut # (Auto) Lymph # (Auto) [place] # (Auto) ABG pCO2 ABG pO2 ABG HCO3 ABG Base Excess Sodium Chloride Carbon Dioxide Glucose POC Glucose 335 H* Hemoglobin A1c Magnesium AST Albumin Globulin Albumin/Globulin Ratio Medications Administered Current Inpatient Medications Acetaminophen (Tylenol) 650 mg PO Q4H PRN PRN Reason: Pain or Fever Stop: 02/04/19 05:28 Last Admin: 01/05/19 23:38 Dose: 650 mg Documented by: Cyanocobalamin (Vitamin B-12) 1,000 mcg PO DAILY [facility]IANA Stop: 02/04/19 08:59 Last Admin: 01/06/19 07:28 Dose: 1,000 mcg Documented by: Dextrose (Dextrose 50%) 25 - 50 ml IV UD PRN; Protocol PRN Reason: Hypoglycemia Protocol Stop: 02/04/19 05:28 Enoxaparin Sodium (Lovenox) 30 mg SQ QAM MARIANA Stop: 02/04/19 08:59 Last Admin: 01/06/19 07:30 Dose: 30 mg Documented by: Folic Acid (Folvite) 1 mg PO QPM MARIANA Stop: 02/04/19 20:59 Last Admin: 01/05/19 20:33 Dose: 1 mg Documented by: Glucagon (Glucagen) 1 mg SQ UD PRN; Protocol PRN Reason: Hypoglycemia Protocol Stop: 02/04/19 05:28 Glucose (Glucose 40%) 15 - 30 gm PO UD PRN; Protocol PRN Reason: Hypoglycemia Protocol Stop: 02/04/19 05:28 Glucose (Dex4 Glucose) 4 - 8 tabs PO UD PRN; Protocol PRN Reason: Hypoglycemia Protocol Stop: 02/04/19 05:28 Guaifenesin (Mucinex) 1,200 mg PO Q12H PRN PRN Reason: Congestion Stop: 02/04/19 05:28 Last Admin: 01/06/19 07:28 Dose: 1,200 mg Documented by: Heparin Sodium (Porcine) (Heparin Sod 100 Unit/Ml Flush) 5 ml FLUSH PRN PRN PRN Reason: Flush Stop: 02/05/19 02:59 Promethazine HCl 12.5 mg/ (Sodium Chloride) 50.5 mls @ 202 mls/hr IV Q6H PRN PRN Reason: Nausea And Vomiting Stop: 02/04/19 05:28 Last Infusion: 01/05/19 20:33 Dose: Infused Documented by: Tobramycin Sulfate 300 mg/ (Syringe) 7.5 mls @ 0.033 mls/min INH BIDR [facility] Stop: 01/13/19 06:59 Last Admin: 01/06/19 07:03 Dose: 0.033 mls/min Documented by: Insulin Aspart (Novolog Flexpen) 0 units SC ACHS [facility] Stop: 02/04/19 05:59 Last Admin: 01/06/19 08:19 Dose: 6 units Documented by: Insulin Glargine (Lantus Solostar Pen) 10 units SQ DAILY [facility] Stop: 02/05/19 08:59 Last Admin: 01/06/19 08:19 Dose: 10 units Documented by: Ioversol (Optiray 320 125ml) 116 ml IV ONCE PRN PRN Reason: Interaction Checking Stop: 01/09/19 04:56 Last Admin: 01/05/19 04:58 Dose: 1 ml Documented by: Ipratropium Dysart (Atrovent 0.02% 0.5mg/2.5ml) 0.5 mg INH Q6R [facility]IANA Stop: 02/04/19 06:59 Last Admin: 01/06/19 07:03 Dose: 0.5 mg Documented by: Levalbuterol HCl (Xopenex 1.25mg/0.5ml Neb) 1.25 mg INH Q6R [facility]IANA Stop: 02/04/19 06:59 Last Admin: 01/06/19 07:03 Dose: 1.25 mg Documented by: Magnesium Oxide (Mag-Ox) 400 mg PO DAILY [facility] Stop: 02/04/19 08:59 Last Admin: 01/06/19 07:28 Dose: 400 mg Documented by: Metoprolol Succinate (Toprol Xl) 25 mg PO DAILY [facility] Stop: 02/04/19 08:59 Last Admin: 01/06/19 07:28 Dose: 25 mg Documented by: Miscellaneous (Carbohydrates For Hypoglycemia) 15 - 30 gm PO UD PRN PRN Reason: Hypoglycemia Treatment Stop: 02/04/19 05:28 Miscellaneous Information () 1 ea N/A UD PRN PRN Reason: Consult Stop: 02/04/19 06:08 Morphine Sulfate (Morphine Sulfate) 2 mg IV Q4H PRN PRN Reason: Pain Stop: 01/19/19 05:28 Last Admin: 01/06/19 02:40 Dose: 2 mg Documented by: Multivitamins (Multivitamin Tab) 1 tab PO DAILY [facility] Stop: 02/04/19 08:59 Last Admin: 01/06/19 07:29 Dose: 1 tab Documented by: Nitroglycerin (Nitrostat) 0.4 mg SL PRN PRN PRN Reason: Chest Pain Stop: 02/04/19 17:22 Pantoprazole Sodium (Protonix) 40 mg PO DAILY [facility] Stop: 02/04/19 08:59 Last Admin: 01/06/19 07:30 Dose: 40 mg Documented by: Prednisone (Prednisone) 40 mg PO DAILY [facility] Stop: 01/10/19 08:59 Last Admin: 01/06/19 07:29 Dose: 40 mg Documented by: Tramadol HCl (Ultram) 25 mg PO Q4H PRN PRN Reason: Pain Stop: 02/04/19 05:28 Trimethoprim/Sulfamethoxazole (Septra 400/80mg Tab) 3 tab PO QID MARIANA; Protocol Stop: 01/13/19 08:59 Last Admin: 01/06/19 09:13 Dose: 3 tab Documented by: PG Care Time/CCT Total # of Minutes Spent Total Time Spent with Patient: Total time spent is greater than 50% in coordination of care (as documented) at patient's floor/unit and/or counseling patient:
[2019-01-06 12:27] LABS: Ferritin 495.9 ng/ml (8-388)
--- NOTE | 2019-01-06 17:38 | Hospitalist Progress Note ---
Date of Service January 06, 2019 Assessment & Plan (1) Acute hypoxemic respiratory failure: 2) COPD (chronic obstructive pulmonary disease): (3) Acute exacerbation of bronchiectasis: Possible related to COPD exacerbation and bronchiectasis. CTA chest showed no significant change in the extensive acute on chronic lung disease as described above. No evidence of acute pulmonary thromboembolic disease. Repeat CXR showed diffuse interstitial opacities and nodular densities persist Sputum cx in the pass grew gram negative rods (Stenotrophomonas) Pulmonary on board recommended to continue prednisone, tobramycin inhaler and IV bactrim Continue trilogy at night for her chronic hypercapnic respiratory failure. Continue oxygen supplement and Neb treatment (4) Right-sided chest pain: CTA chest negative for pulmonary embolism. Echo showed LV systolic function is normal to hyperdynamic LV wall motion is otherwise normal with EF 72% Starting on lasix 40mg daily Will monitor BMP while on lasix (5) Mediastinal adenopathy: Noted on current and previous CT, unchanged. (6) Prolonged Q-T interval on ECG: EKG on admission showed QTC of 499 Will avoid medication that increase QTC such as levofloxacin Sertraline on hold Repeat EKG this morning showed QTc 437 (7) Steroid-induced diabetes: Increased insulin sliding scale Pt said that she had pancake today Will increase lantus to 10 unit BID if BS remain elevate Continue monitor BS (8) Hypogammaglobulinemia: Receives immunoglobulin infusions monthly. (9) DVT prophylaxis: SQ enoxaparin/Ambulate as able. (10) Disposition Will discharge once medically stable Subjective Pt was seen and examined Sitting in bed with family member at bedside Pt said that she had a rough night because of her breathing She said that she feel alittle better now She continues to cough Denies any chest pain, palpitation, dizziness and fever Physical Exam Physical Exam: General- No acute distress Head- atraumatic Eyes- PERRL, EOMI, ENT- oropharynx clear Neck- supple, no JVD Lungs- diminished BS, +wheezing Heart- regular rhythm; no murmur Abdomen- normal bowel sounds, soft, nontender Extremities- no calf tenderness Neuro- alert, oriented, PERRL, EOMI; no facial palsy; no dysarthria Skin- warm & dry Results & Data Vital Signs (Past 12 Hours) Vital Signs Temp Pulse Pulse Pulse Resp BP BP 01/06/19 16:12 36.7 C 99 H 22 150/80 H 01/06/19 16:00 89 01/06/19 13:00 86 16 01/06/19 11:30 36.7 C 98 H 20 128/76 01/06/19 08:00 36.6 C 92 H 94 H 20 117/72 01/06/19 07:04 78 19 Pulse Ox 01/06/19 16:12 92 01/06/19 16:00 01/06/19 13:00 94 01/06/19 11:30 95 01/06/19 08:00 91 01/06/19 07:04 96
[2019-01-06] MEDS: FOLIC ACID 1 MG TAB PO SCH (20:54)
[2019-01-07] MEDS: LEVALBUTEROL 1.25MG/0.5ML NEB INH SCH ×4 (01:11→19:12)
[2019-01-07] MEDS: IPRATROPIUM BROMIDE NEB SOLN 0.02% 2.5 ML VIAL INH SCH ×4 (01:11→19:12)
[2019-01-07] MEDS: ACETAMINOPHEN 325 MG TAB PO PRN (06:38)
[2019-01-07] MEDS: TOBRAMYCIN SULFATE 300 MG in SYRINGE 0 ML INH SCH ×2 (06:55→19:26)
[2019-01-07 07:02] LABS: Hematocrit (blood only) 31.7 % (37-47); Hemoglobin 9.5 g/dL (12.0-16.0); Mean Corpuscular Hemoglobin 26.2 pg (25-34); Mean Corpuscular Volume 87.3 fL (80-100); Mean Platelet Volume 8.8 fL (7.4-10.4); Platelet Count 281 K/uL (130-400); RDW Coefficient of Variation 15.6 % (11.5-14.5); RDW Standard Deviation 50.5 fL (36.4-46.3); Red Blood Count 3.63 M/uL (4.2-5.4); White Blood Count 7.64 K/uL (4.8-10.8)
[2019-01-07 07:33] LABS: Calcium 8.9 mg/dl (8.5-10.1); Creatinine Clr Calc Pharmacy 77.4 ml/min; Est GFR (African American) 99.3; Est GFR (Non-African American) 85.7; Potassium 4.3 mmol/L (3.5-5.1)
[2019-01-07] MEDS: SULFA/TRIMETH 400/80MG TAB PO SCH ×4 (08:30→20:42)
[2019-01-07] MEDS: POTASSIUM CHLORIDE 20 MEQ TABCR PO SCH (08:30)
[2019-01-07] MEDS: PANTOprazole 40 MG TAB PO SCH (08:31)
[2019-01-07] MEDS: predniSONE 20 MG TAB PO SCH (08:31)
[2019-01-07] MEDS: METOPROLOL SUCC 25MG EXT REL TAB PO SCH (08:31)
[2019-01-07] MEDS: MULTIVITAMIN TAB PO SCH (08:31)
[2019-01-07] MEDS: ENOXAPARIN INJ 30 MG/0.3 ML SYR SQ SCH (08:31)
[2019-01-07] MEDS: FUROSEMIDE 40 MG TAB PO SCH (08:31)
[2019-01-07] MEDS: MAGNESIUM OXIDE 400 MG TAB PO SCH (08:31)
[2019-01-07] MEDS: INSULIN ASPART 100 UNITS/ML 3 ML PEN SC SCH ×4 (08:32→20:43)
[2019-01-07] MEDS: INSULIN GLARGINE SOLOSTAR 100 UNITS/ML 3 ML PEN SQ SCH (08:32)
[2019-01-07] MEDS: CYANOCOBALAMIN 500 MCG TABLET (VITAMIN B-12) PO SCH (08:32)
--- NOTE | 2019-01-07 17:42 | Hospitalist Progress Note ---
Date of Service January 07, 2019 Assessment & Plan (1) Acute hypoxemic respiratory failure: 2) COPD (chronic obstructive pulmonary disease): (3) Acute exacerbation of bronchiectasis: Possible related to COPD exacerbation and bronchiectasis. CTA chest showed no significant change in the extensive acute on chronic lung disease as described above. No evidence of acute pulmonary thromboembolic disease. Repeat CXR showed diffuse interstitial opacities and nodular densities persist Sputum cx grew gram negative baccilli Pulmonary on board recommended to continue prednisone, tobramycin inhaler and IV bactrim Continue trilogy at night for her chronic hypercapnic respiratory failure. Continue oxygen supplement and Neb treatment (4) Right-sided chest pain: CTA chest negative for pulmonary embolism. Echo showed LV systolic function is normal to hyperdynamic LV wall motion is otherwise normal with EF 72% Continue lasix 40mg daily Creatinine stable (5) Mediastinal adenopathy: Noted on current and previous CT, unchanged. (6) Prolonged Q-T interval on ECG: EKG on admission showed QTC of 499 Will avoid medication that increase QTC such as levofloxacin Sertraline on hold Repeat EKG this morning showed QTc 437 (7) Steroid-induced diabetes: BS improved Continue insulin sliding scale Continue lantus to 10 unit Continue monitor BS (8) Hypogammaglobulinemia: Receives immunoglobulin infusions monthly. (9) DVT prophylaxis: SQ enoxaparin/Ambulate as able. (10) Disposition Will discharge once medically stable Subjective Pt was seen and examined Sitting in bed with no distress playing in her tablet Denies any chest pain, palpitation, dizziness and SOB Physical Exam Physical Exam: General- No acute distress Head- atraumatic Eyes- PERRL, EOMI, ENT- oropharynx clear Neck- supple, no JVD Lungs- diminished BS, +wheezing Heart- regular rhythm; no murmur Abdomen- normal bowel sounds, soft, nontender Extremities- no calf tenderness Neuro- alert, oriented, PERRL, EOMI; no facial palsy; no dysarthria Skin- warm & dry Results & Data Vital Signs (Past 12 Hours) Vital Signs Temp Pulse Pulse Pulse Resp BP Pulse Ox 01/07/19 15:24 36.6 C 87 22 122/72 95 01/07/19 15:07 83 01/07/19 13:00 77 20 93 01/07/19 11:09 36.8 C 78 20 111/69 96 01/07/19 08:00 89 01/07/19 07:27 36.4 C L 78 20 111/69 96 01/07/19 06:57 74 19 96
[2019-01-07] MEDS: PROMETHAZINE HCL 12.5 MG in SODIUM CHLORIDE 0.9% 50 ML IV PRN (19:46)
[2019-01-07] MEDS: FOLIC ACID 1 MG TAB PO SCH (20:43)
[2019-01-08] MEDS: IPRATROPIUM BROMIDE NEB SOLN 0.02% 2.5 ML VIAL INH SCH ×4 (01:00→18:57)
[2019-01-08] MEDS: LEVALBUTEROL 1.25MG/0.5ML NEB INH SCH ×4 (01:00→18:57)
[2019-01-08] MEDS: ACETAMINOPHEN 325 MG TAB PO PRN (04:35)
[2019-01-08] MEDS: TOBRAMYCIN SULFATE 300 MG in SYRINGE 0 ML INH SCH ×2 (06:56→18:57)
[2019-01-08] MEDS: INSULIN ASPART 100 UNITS/ML 3 ML PEN SC SCH ×4 (07:53→20:52)
[2019-01-08] MEDS: INSULIN GLARGINE SOLOSTAR 100 UNITS/ML 3 ML PEN SQ SCH (08:02)
[2019-01-08 08:03] LABS: Calcium 9.2 mg/dl (8.5-10.1); Creatinine Clr Calc Pharmacy 56.2 ml/min; Est GFR (African American) 66.7; Est GFR (Non-African American) 57.6; Potassium 4.5 mmol/L (3.5-5.1)
[2019-01-08] MEDS: ENOXAPARIN INJ 30 MG/0.3 ML SYR SQ SCH (08:04)
[2019-01-08] MEDS: CYANOCOBALAMIN 500 MCG TABLET (VITAMIN B-12) PO SCH (08:05)
[2019-01-08] MEDS: SULFA/TRIMETH 400/80MG TAB PO SCH ×4 (08:05→23:22)
[2019-01-08] MEDS: POTASSIUM CHLORIDE 20 MEQ TABCR PO SCH (08:05)
[2019-01-08] MEDS: MULTIVITAMIN TAB PO SCH (08:05)
[2019-01-08] MEDS: PANTOprazole 40 MG TAB PO SCH (08:05)
[2019-01-08] MEDS: FUROSEMIDE 40 MG TAB PO SCH (08:06)
[2019-01-08] MEDS: MAGNESIUM OXIDE 400 MG TAB PO SCH (08:06)
[2019-01-08] MEDS: METOPROLOL SUCC 25MG EXT REL TAB PO SCH (08:06)
[2019-01-08] MEDS: MoRPHine SULFATE 2 MG/ML CARP IV PRN ×2 (09:36→22:14)
[2019-01-08] MEDS: predniSONE 20 MG TAB PO SCH (09:37)
[2019-01-08] MEDS: PROMETHAZINE HCL 12.5 MG in SODIUM CHLORIDE 0.9% 50 ML IV PRN ×2 (11:52→22:31)
--- NOTE | 2019-01-08 18:39 | Hospitalist Progress Note ---
Date of Service January 08, 2019 Assessment & Plan (1) Acute hypoxemic respiratory failure: 2) COPD (chronic obstructive pulmonary disease): (3) Acute exacerbation of bronchiectasis: Gram negative pneumonia Possible related to COPD exacerbation and bronchiectasis. CTA chest showed no significant change in the extensive acute on chronic lung disease as described above. No evidence of acute pulmonary thromboembolic disease. Repeat CXR showed diffuse interstitial opacities and nodular densities persist Sputum cx grew gram negative baccilli Pulmonary on board recommended to continue prednisone, tobramycin inhaler and IV bactrim Continue trilogy at night for her chronic hypercapnic respiratory failure. Continue oxygen supplement and Neb treatment (4) Right-sided chest pain: CTA chest negative for pulmonary embolism. Echo showed LV systolic function is normal to hyperdynamic LV wall motion is otherwise normal with EF 72% Continue lasix 40mg daily Creatinine stable (5) Mediastinal adenopathy: Noted on current and previous CT, unchanged. (6) Prolonged Q-T interval on ECG: EKG on admission showed QTC of 499 Will avoid medication that increase QTC such as levofloxacin Sertraline on hold Repeat EKG this morning showed QTc 437 (7) Steroid-induced diabetes: BS improved Continue insulin sliding scale Continue lantus to 10 unit Continue monitor BS (8) Hypogammaglobulinemia: Receives immunoglobulin infusions monthly. (9) DVT prophylaxis: SQ enoxaparin/Ambulate as able. (10) Disposition Will discharge once medically stable Subjective Pt was seen and examined Sitting in bed with no distress playing in her tablet She said that her breathing is much better this afternoon Denies any chest pain, palpitation, dizziness and fever Physical Exam Physical Exam: General- No acute distress Head- atraumatic Eyes- PERRL, EOMI, ENT- oropharynx clear Neck- supple, no JVD Lungs- diminished BS, +wheezing Heart- regular rhythm; no murmur Abdomen- normal bowel sounds, soft, nontender Extremities- no calf tenderness Neuro- alert, oriented, PERRL, EOMI; no facial palsy; no dysarthria Skin- warm & dry Results & Data Vital Signs (Past 12 Hours) Vital Signs Temp Pulse Pulse Pulse Resp BP Pulse Ox 01/08/19 16:00 90 01/08/19 15:33 37.0 C 89 16 109/70 94 01/08/19 12:55 84 18 94 01/08/19 10:54 36.4 C L 93 H 18 105/68 94 01/08/19 09:03 36.6 C 94 H 20 115/71 94 01/08/19 06:56 87 18 90
[2019-01-08] MEDS: FOLIC ACID 1 MG TAB PO SCH (21:16)
--- NOTE | 2019-01-08 22:14 | Pulmonology Progress Note ---
Date of Service January 08, 2019 Assessment & Plan (1) Bronchiectasis: Continue with bronchodilator therapy. Continue with Mucomyst. CoughAssist device will help the patient. Patient is on's prednisone 40 mg daily right now we will try to de-escalate as soon as possible. Patient is clinically doing a little bit better. Sputum showing gram-negative bedside follow-up culture. Continue with inhaled tobramycin. Bronchiectasis type: uncomplicated Qualified Code(s): J47.9 - Bronchiectasis, uncomplicated (2) Acute and chronic respiratory failure: Continue with O2 supplementation to keep saturation between 88 to 92%. (3) Acute exacerbation of bronchiectasis: Continue with antibiotic (4) CVID (common variable immunodeficiency): (5) BILL (obstructive sleep apnea): Continue with BiPAP nightly and as needed shortness of breath. (6) Mild pulmonary hypertension: Subjective Patient seen and examined at bedside. No acute distress. No adverse events overnight. Patient states that she is feeling a little bit better but still complaining of cough and bringing up phlegm. Denies any chest pain, no dizziness, no headache, no nausea, no vomiting. Tolerating diet. Review of Systems Review of Systems: All systems reviewed & are unremarkable except as noted in HPI & below Physical Exam Physical Exam: Constitutional: Mild respiratory distress HEENT: EOMI, PERRLA Respiratory system: Decreased air entry bilaterally, positive wheeze, diffuse positive rhonchi, positive minimal bilateral crackles CVS: S1-S2 positive, no murmurs or gallops, tachycardia Abdomen: Soft, nontender, nondistended, positive bowel sounds x4 Extremities: +2 pulses bilaterally radialis/ dorsalis pedis, no edema, no cyanosis Neuro: Awake alert oriented x3 Psych: Normal mood and affect Results & Data Vital Signs (Past 12 Hours) Vital Signs Temp Pulse Pulse Pulse Resp BP Pulse Ox 01/08/19 19:58 87 18 95 01/08/19 19:20 36.5 C 87 17 125/79 95 01/08/19 16:00 90 01/08/19 15:33 37.0 C 89 16 109/70 94 01/08/19 12:55 84 18 94 01/08/19 10:54 36.4 C L 93 H 18 105/68 94 Laboratory Results 01/07/19 06:30 01/08/19 07:17 Sputum culture done 01/05/2019 growing gram-negative bacilli. Follow-up culture and sensitivity. Diagnostic Findings Chest x-ray from 12/29/[address] angiogram done on 01/05/2019. PG Care Time/CCT Total # of Minutes Spent Total Time Spent with Patient: Total time spent is greater than 50% in coordination of care (as documented) at patient's floor/unit and/or counseling patient:
[2019-01-09] MEDS: IPRATROPIUM BROMIDE NEB SOLN 0.02% 2.5 ML VIAL INH SCH ×4 (00:53→19:08)
[2019-01-09] MEDS: LEVALBUTEROL 1.25MG/0.5ML NEB INH SCH ×4 (00:53→19:08)
[2019-01-09] MEDS: SULFA/TRIMETH 400/80MG TAB PO SCH ×4 (05:46→23:18)
[2019-01-09] MEDS: TOBRAMYCIN SULFATE 300 MG in SYRINGE 0 ML INH SCH ×2 (07:19→19:08)
[2019-01-09] MEDS: MAGNESIUM OXIDE 400 MG TAB PO SCH (08:15)
[2019-01-09] MEDS: predniSONE 20 MG TAB PO SCH (08:15)
[2019-01-09] MEDS: FUROSEMIDE 40 MG TAB PO SCH (08:16)
[2019-01-09] MEDS: MULTIVITAMIN TAB PO SCH (08:16)
[2019-01-09] MEDS: CYANOCOBALAMIN 500 MCG TABLET (VITAMIN B-12) PO SCH (08:16)
[2019-01-09] MEDS: POTASSIUM CHLORIDE 20 MEQ TABCR PO SCH (08:16)
[2019-01-09] MEDS: METOPROLOL SUCC 25MG EXT REL TAB PO SCH (08:16)
[2019-01-09] MEDS: PANTOprazole 40 MG TAB PO SCH (08:16)
[2019-01-09] MEDS: ACETAMINOPHEN 325 MG TAB PO PRN (08:17)
[2019-01-09] MEDS: ENOXAPARIN INJ 30 MG/0.3 ML SYR SQ SCH (08:17)
[2019-01-09] MEDS: INSULIN GLARGINE SOLOSTAR 100 UNITS/ML 3 ML PEN SQ SCH (08:18)
[2019-01-09] MEDS: INSULIN ASPART 100 UNITS/ML 3 ML PEN SC SCH ×4 (08:20→21:27)
[2019-01-09 10:31] LABS: BUN Creatinine Ratio 19.8 (10-20); Calcium 9.3 mg/dl (8.5-10.1); Creatinine Clr Calc Pharmacy 49.7 ml/min; Est GFR (African American) 58.1; Est GFR (Non-African American) 50.1; Potassium 4.3 mmol/L (3.5-5.1)
--- NOTE | 2019-01-09 13:01 | Pulmonology Progress Note ---
Date of Service January 09, 2019 Assessment & Plan (1) Bronchiectasis: Continue with bronchodilator therapy. Continue with Mucomyst. CoughAssist device will help the patient. Start titrating off prednisone as of tomorrow. Patient is clinically doing a little bit better. Sputum showing gram-negative bedside follow-up culture. Continue with inhaled tobramycin. Chest PT with vest. Bronchiectasis type: uncomplicated Qualified Code(s): J47.9 - Bronchiectasis, uncomplicated (2) Acute and chronic respiratory failure: Continue with O2 supplementation to keep saturation between 88 to 92%. (3) Acute exacerbation of bronchiectasis: Continue with antibiotic Mucolytic and CoughAssist with chest vest. (4) CVID (common variable immunodeficiency): (5) BILL (obstructive sleep apnea): Continue with BiPAP nightly and as needed shortness of breath. Patient is on trilogy at home. (6) Mild pulmonary hypertension: Subjective Patient seen and examined at bedside. No acute distress, no adverse events overnight. Patient was sleeping quietly prior to the time of examination. States that she is feeling better. Shortness of breath is improved. Cough is decreased in intensity. Denies any chest pain, mild headache. Mild nausea, no vomiting. Patient saturating 98% on 4 L nasal cannula with heart rate of 112 at rest. Review of Systems Review of Systems: All systems reviewed & are unremarkable except as noted in HPI & below Physical Exam Physical Exam: Constitutional: No acute distress HEENT: EOMI, PERRLA Respiratory system: Decreased air entry bilaterally, diffuse rhonchi, positive bilateral crackles, no wheeze CVS: S1-S2 positive, no murmurs or gallops, tachycardia Abdomen: Soft, nontender, nondistended, positive bowel sounds x4 Extremities: +2 pulses bilaterally radialis/ dorsalis pedis, no edema, no cyanosis Neuro: Awake alert oriented x3 Psych: Normal mood and affect G/U: No Miner Lymphatic: no cervical or axillary lymphadenopathy Results & Data Vital Signs (Past 12 Hours) Vital Signs Temp Pulse Pulse Pulse Resp BP Pulse Ox 01/09/19 12:44 37.2 C 117 H 21 125/72 90 01/09/19 07:49 36.5 C 90 20 122/76 96 01/09/19 07:26 79 01/09/19 07:19 86 16 96 01/09/19 07:05 86 16 96 01/09/19 03:29 36.6 C 89 19 110/69 93 Laboratory Results 01/07/19 06:30 01/09/19 09:48 PG Care Time/CCT Total # of Minutes Spent Total Time Spent with Patient: Total time spent is greater than 50% in coordination of care (as documented) at patient's floor/unit and/or counseling patient:
--- NOTE | 2019-01-09 17:30 | Hospitalist Progress Note ---
Date of Service January 09, 2019 Assessment & Plan (1) Acute hypoxemic respiratory failure: 2) COPD (chronic obstructive pulmonary disease): (3) Acute exacerbation of bronchiectasis: Gram negative pneumonia Possible related to COPD exacerbation and bronchiectasis. CTA chest showed no significant change in the extensive acute on chronic lung disease as described above. No evidence of acute pulmonary thromboembolic disease. Repeat CXR showed diffuse interstitial opacities and nodular densities persist Sputum cx grew gram negative baccilli Pulmonary on board recommended to continue prednisone, tobramycin inhaler and IV bactrim Continue trilogy at night for her chronic hypercapnic respiratory failure. Will taper prednisone to 20mg tomorrow Continue oxygen supplement and Neb treatment (4) Right-sided chest pain: CTA chest negative for pulmonary embolism. Echo showed LV systolic function is normal to hyperdynamic LV wall motion is otherwise normal with EF 72% Will change lasix from 40mg to 20mg daily in am Creatinine bumped to 1.2 today Will assess in am after BMP results, before giving the lasix 20mg (5) Mediastinal adenopathy: Noted on current and previous CT, unchanged. (6) Prolonged Q-T interval on ECG: EKG on admission showed QTC of 499 Will avoid medication that increase QTC such as levofloxacin Sertraline on hold Repeat EKG showed QTc 437 Stable (7) Steroid-induced diabetes: BS improved Continue insulin sliding scale Continue lantus to 10 unit Continue monitor BS (8) Hypogammaglobulinemia: Receives immunoglobulin infusions monthly. (9) DVT prophylaxis: SQ enoxaparin/Ambulate as able. (10) Disposition Will discharge once medically stable Subjective Pt was seen and examined Sitting in bed with no distress watching movie from her tablet She said that her breathing is a little better compare to yesterday She said that she is coughing less Denies any chest pain, palpitation and SOB Physical Exam Physical Exam: General- No acute distress Head- atraumatic Eyes- PERRL, EOMI, ENT- oropharynx clear Neck- supple, no JVD Lungs- diminished BS, +wheezing Heart- regular rhythm; no murmur Abdomen- normal bowel sounds, soft, nontender Extremities- no calf tenderness Neuro- alert, oriented, PERRL, EOMI; no facial palsy; no dysarthria Skin- warm & dry Results & Data Vital Signs (Past 12 Hours) Vital Signs Temp Pulse Pulse Pulse Resp BP BP 01/09/19 16:20 100 H 01/09/19 15:38 36.9 C 94 H 19 121/77 01/09/19 13:31 87 16 01/09/19 12:44 37.2 C 117 H 21 125/72 01/09/19 07:49 36.5 C 90 20 122/76 01/09/19 07:26 79 01/09/19 07:19 86 16 01/09/19 07:05 86 16 Pulse Ox 01/09/19 16:20 01/09/19 15:38 93 01/09/19 13:31 95 01/09/19 12:44 90 01/09/19 07:49 96 01/09/19 07:26 01/09/19 07:19 96 01/09/19 07:05 96
[2019-01-09] MEDS: PROMETHAZINE HCL 12.5 MG in SODIUM CHLORIDE 0.9% 50 ML IV PRN (18:32)
[2019-01-09] MEDS: HEPARIN 100 UNIT/ML 5ML FLUSH FLUSH PRN (18:56)
[2019-01-09] MEDS: FOLIC ACID 1 MG TAB PO SCH (21:25)
[2019-01-10] MEDS: LEVALBUTEROL 1.25MG/0.5ML NEB INH SCH ×4 (01:05→18:59)
[2019-01-10] MEDS: IPRATROPIUM BROMIDE NEB SOLN 0.02% 2.5 ML VIAL INH SCH ×4 (01:05→18:59)
[2019-01-10] MEDS: MoRPHine SULFATE 2 MG/ML CARP IV PRN (05:11)
[2019-01-10] MEDS: SULFA/TRIMETH 400/80MG TAB PO SCH ×3 (05:11→18:37)
[2019-01-10] MEDS: HEPARIN 100 UNIT/ML 5ML FLUSH FLUSH PRN ×2 (05:15→09:06)
[2019-01-10] MEDS: POTASSIUM CHLORIDE 20 MEQ TABCR PO SCH (07:53)
[2019-01-10] MEDS: MULTIVITAMIN TAB PO SCH (07:53)
[2019-01-10] MEDS: PANTOprazole 40 MG TAB PO SCH (07:53)
[2019-01-10] MEDS: METOPROLOL SUCC 25MG EXT REL TAB PO SCH (07:53)
[2019-01-10] MEDS: CYANOCOBALAMIN 500 MCG TABLET (VITAMIN B-12) PO SCH (07:53)
[2019-01-10] MEDS: ENOXAPARIN INJ 30 MG/0.3 ML SYR SQ SCH (07:54)
[2019-01-10] MEDS: MAGNESIUM OXIDE 400 MG TAB PO SCH (07:54)
[2019-01-10] MEDS: INSULIN GLARGINE SOLOSTAR 100 UNITS/ML 3 ML PEN SQ SCH (07:56)
[2019-01-10 07:57] LABS: BUN Creatinine Ratio 23.3 (10-20); Calcium 9.3 mg/dl (8.5-10.1); Est GFR (African American) 57.5; Est GFR (Non-African American) 49.6; Potassium 4.6 mmol/L (3.5-5.1)
[2019-01-10] MEDS: INSULIN ASPART 100 UNITS/ML 3 ML PEN SC SCH ×4 (07:59→21:17)
[2019-01-10] MEDS: TOBRAMYCIN SULFATE 300 MG in SYRINGE 0 ML INH SCH ×2 (08:00→19:04)
[2019-01-10] MEDS: PROMETHAZINE HCL 12.5 MG in SODIUM CHLORIDE 0.9% 50 ML IV PRN (08:36)
[2019-01-10] MEDS ORDERED: FUROSEMIDE 20 MG TAB PO SCH (09:00)
[2019-01-10] MEDS: ACETAMINOPHEN 325 MG TAB PO PRN (11:14)
--- NOTE | 2019-01-10 16:47 | Pulmonology Progress Note ---
Date of Service January 10, 2019 Assessment & Plan (1) Bronchiectasis: Continue with bronchodilator therapy. Continue with Mucomyst. CoughAssist device will help the patient. Taper prednisone over next 5 days. Patient is clinically doing a little bit better. Sputum showing gram-negative bedside follow-up culture. Continue with inhaled tobramycin. Chest PT with vest. Recommend DC in Bactrim. I think that is 1 of the reason for elevated creatinine. Patient from pulmonary perspective doing better. Continue with the current management. Bronchiectasis type: uncomplicated Qualified Code(s): J47.9 - Bronchiectasis, uncomplicated (2) Acute and chronic respiratory failure: Continue with O2 supplementation to keep saturation between 88 to 92%. (3) Acute exacerbation of bronchiectasis: Recommend discontinuing antibiotic. Mucolytic and CoughAssist with chest vest. (4) CVID (common variable immunodeficiency): (5) BILL (obstructive sleep apnea): Continue with BiPAP nightly and as needed shortness of breath. Patient is on trilogy at home. (6) Mild pulmonary hypertension: Subjective Patient seen and examined at bedside. No acute distress. No adverse events overnight. States that the shortness of breath is improved. No chest pain, no headache, no nausea, no vomiting. States she feels generalized lethargic. Review of Systems Review of Systems: All systems reviewed & are unremarkable except as noted in HPI & below Physical Exam Physical Exam: Constitutional: No acute distress HEENT: EOMI, PERRLA Respiratory system: Decreased air entry bilaterally, diffuse rhonchi, positive bilateral crackles, no wheeze CVS: S1-S2 positive, no murmurs or gallops, tachycardia Abdomen: Soft, nontender, nondistended, positive bowel sounds x4 Extremities: +2 pulses bilaterally radialis/ dorsalis pedis, no edema, no cyanosis Neuro: Awake alert oriented x3 Psych: Normal mood and affect G/U: No Miner Lymphatic: no cervical or axillary lymphadenopathy Results & Data Vital Signs (Past 12 Hours) Vital Signs Temp Pulse Pulse Pulse Resp BP BP 01/10/19 15:06 36.9 C 103 H 22 106/71 01/10/19 14:03 95 H 18 01/10/19 11:40 36.6 C 95 H 20 98/63 L 01/10/19 07:33 86 01/10/19 07:05 97 H 20 01/10/19 06:58 36.7 C 88 20 116/70 Pulse Ox 01/10/19 15:06 97 01/10/19 14:03 96 01/10/19 11:40 97 01/10/19 07:33 01/10/19 07:05 01/10/19 06:58 93 Laboratory Results 01/07/19 06:30 01/10/19 06:53 Microbiology 01/05/19 00:56 Blood Aerobic Blood Culture - Final No growth in Aerobic bottle after 5 days. 01/05/19 00:56 Blood Anaerobic Blood Culture - Final No growth in Anaerobic bottle after 5 days. 01/05/19 03:42 Blood Aerobic Blood Culture - Final No growth in Aerobic bottle after 5 days. 01/05/19 03:42 Blood Anaerobic Blood Culture - Final 01/05/19 08:45 Sputum, Expectorated Gram Stain - Final 01/05/19 08:45 Sputum, Expectorated Sputum Culture - Preliminary Gram negative bacilli Elevated creatinine. Likely secondary to trimethoprim sulfamethoxazole plus Lasix. PG Care Time/CCT Total # of Minutes Spent Total Time Spent with Patient: Total time spent is greater than 50% in coordination of care (as documented) at patient's floor/unit and/or counseling patient:
--- NOTE | 2019-01-10 17:50 | Hospitalist Progress Note ---
Date of Service January 10, 2019 Assessment & Plan (1) Acute hypoxemic respiratory failure: Secondary to COPD exacerbation and complicated by bronchiectasis Gram negative pneumonia CTA chest showed no significant change in the extensive acute on chronic lung disease as described above. No evidence of acute pulmonary thromboembolic disease. Repeat CXR showed diffuse interstitial opacities and nodular densities persist Sputum cx grew gram negative baccilli Appreciate pulmonary input and recommendation Has been on intravenous tobramycin and Bactrim Bactrim intravenously has been discontinued from 01/10 Taper prednisone by 5 mg reducing dose daily as per patient's request Continue oxygen supplement and Neb treatment Clinically minimally improved Right-sided chest pain: CTA chest negative for pulmonary embolism. Echo showed LV systolic function is normal to hyperdynamic LV wall motion is otherwise normal with EF 72% Will change lasix from 40mg to 20mg daily in am Denies any more chest pain Mediastinal adenopathy: Noted on current and previous CT, unchanged. Prolonged Q-T interval on ECG: EKG on admission showed QTC of 499 Will avoid medication that increase QTC such as levofloxacin Sertraline on hold Repeat EKG showed QTc 437 Stable Steroid-induced diabetes: BS improved Continue insulin sliding scale Continue lantus to 10 unit Continue monitor BS Hypogammaglobulinemia: Receives immunoglobulin infusions monthly. DVT prophylaxis: SQ enoxaparin/Ambulate as able. Disposition We will get PT and OT evaluation before discharge Has home oxygen and will continue with Subjective 01/10 Patient was seen and examined in telemetry unit She wants to go home She is very short of breath even at rest Denies any chest pain in the palpitation Review of Systems Review of Systems: All systems reviewed and are unremarkable except as noted. Respiratory: + cough, + dyspnea, + sputum production and + wheezing Physical Exam Physical Exam: Lying in bed with moderate shortness of breath at rest Constitutional: well developed, + acute distress and + ill appearing Eyes: PERRL, conjunctivae normal, anicteric sclerae ENMT: external ear and nose normal, oropharynx normal Neck: trachea midline, no thyromegaly Respiratory: + respiratory distress (Moderate distress at rest) and + labored breathing Auscultation: + diminished lung sounds, + crackles (Bibasal), + rhonchi and + wheezes (Allover) Cardiovascular: Rate/Rhythm: regular rate and regular rhythm Heart Sounds: no murmur Gastrointestinal (Abdomen): Inspection/Auscultation: abdomen normal to inspection Musculoskeletal: No acute arthritis Neurologic: moves all extremities; no focal motor deficits Results & Data Vital Signs (Past 12 Hours) Vital Signs Temp Pulse Pulse Pulse Resp BP BP 01/10/19 15:06 36.9 C 103 H 22 106/71 01/10/19 14:03 95 H 18 01/10/19 11:40 36.6 C 95 H 20 98/63 L 01/10/19 07:33 86 01/10/19 07:05 97 H 20 01/10/19 06:58 36.7 C 88 20 116/70 Pulse Ox 01/10/19 15:06 97 01/10/19 14:03 96 01/10/19 11:40 97 01/10/19 07:33 01/10/19 07:05 01/10/19 06:58 93 Laboratory Results BMP 01/10/19 06:53 Sodium 132 L Potassium 4.6 Chloride 87 L Carbon Dioxide 36 H BUN 28 H Creatinine 1.21 H Glucose 77 Calcium 9.3 Medications Administered Current Inpatient Medications Acetaminophen (Tylenol) 650 mg PO Q4H PRN PRN Reason: Pain or Fever Stop: 02/04/19 05:28 Last Admin: 01/10/19 11:14 Dose: 650 mg Documented by: Cyanocobalamin (Vitamin B-12) 1,000 mcg PO DAILY MARIANA Stop: 02/04/19 08:59 Last Admin: 01/10/19 07:53 Dose: 1,000 mcg Documented by: Dextrose (Dextrose 50%) 25 - 50 ml IV UD PRN; Protocol PRN Reason: Hypoglycemia Protocol Stop: 02/04/19 05:28 Enoxaparin Sodium (Lovenox) 30 mg SQ QAM MARIANA Stop: 02/04/19 08:59 Last Admin: 01/10/19 07:54 Dose: 30 mg Documented by: Folic Acid (Folvite) 1 mg PO QPM MARIANA Stop: 02/04/19 20:59 Last Admin: 01/09/19 21:25 Dose: 1 mg Documented by: Furosemide (Lasix) 20 mg PO QAM MARIANA Stop: 02/09/19 08:59 Glucagon (Glucagen) 1 mg SQ UD PRN; Protocol PRN Reason: Hypoglycemia Protocol Stop: 02/04/19 05:28 Glucose (Glucose 40%) 15 - 30 gm PO UD PRN; Protocol PRN Reason: Hypoglycemia Protocol Stop: 02/04/19 05:28 Glucose (Dex4 Glucose) 4 - 8 tabs PO UD PRN; Protocol PRN Reason: Hypoglycemia Protocol Stop: 02/04/19 05:28 Guaifenesin (Mucinex) 1,200 mg PO Q12H PRN PRN Reason: Congestion Stop: 02/04/19 05:28 Last Admin: 01/06/19 07:28 Dose: 1,200 mg Documented by: Heparin Sodium (Porcine) (Heparin Sod 100 Unit/Ml Flush) 5 ml FLUSH PRN PRN PRN Reason: Flush Stop: 02/05/19 02:59 Last Admin: 01/10/19 09:06 Dose: 5 ml Documented by: Promethazine HCl 12.5 mg/ (Sodium Chloride) 50.5 mls @ 202 mls/hr IV Q6H PRN PRN Reason: Nausea And Vomiting Stop: 02/04/19 05:28 Last Infusion: 01/10/19 08:51 Dose: Infused Documented by: Tobramycin Sulfate 300 mg/ (Syringe) 7.5 mls @ 0.033 mls/min INH BIDR MARIANA Stop: 01/13/19 06:59 Last Admin: 01/10/19 08:00 Dose: 0.033 mls/min Documented by: Insulin Aspart (Novolog Flexpen) 0 units SC ACHS MARIANA Stop: 02/04/19 05:59 Last Admin: 01/10/19 12:36 Dose: 2 units Documented by: Insulin Glargine (Lantus Solostar Pen) 10 units SQ DAILY MARIANA Stop: 02/05/19 08:59 Last Admin: 01/10/19 07:56 Dose: 10 units Documented by: Ipratropium [place] (Atrovent 0.02% 0.5mg/2.5ml) 0.5 mg INH Q6R MARIANA Stop: 02/04/19 06:59 Last Admin: 01/10/19 13:59 Dose: 0.5 mg Documented by: Levalbuterol HCl (Xopenex 1.25mg/0.5ml Neb) 1.25 mg INH Q6R MARIANA Stop: 02/04/19 06:59 Last Admin: 01/10/19 13:59 Dose: 1.25 mg Documented by: Magnesium Oxide (Mag-Ox) 400 mg PO DAILY MARIANA Stop: 02/04/19 08:59 Last Admin: 01/10/19 07:54 Dose: 400 mg Documented by: Metoprolol Succinate (Toprol Xl) 25 mg PO DAILY MARIANA Stop: 02/04/19 08:59 Last Admin: 01/10/19 07:53 Dose: 25 mg Documented by: Miscellaneous (Carbohydrates For Hypoglycemia) 15 - 30 gm PO UD PRN PRN Reason: Hypoglycemia Treatment Stop: 02/04/19 05:28 Miscellaneous Information () 1 ea N/A UD PRN PRN Reason: Consult Stop: 02/04/19 06:08 Morphine Sulfate (Morphine Sulfate) 2 mg IV Q4H PRN PRN Reason: Pain Stop: 01/19/19 05:28 Last Admin: 01/10/19 05:11 Dose: 2 mg Documented by: Multivitamins (Multivitamin Tab) 1 tab PO DAILY MARIANA Stop: 02/04/19 08:59 Last Admin: 01/10/19 07:53 Dose: 1 tab Documented by: Nitroglycerin (Nitrostat) 0.4 mg SL PRN PRN PRN Reason: Chest Pain Stop: 02/04/19 17:22 Pantoprazole Sodium (Protonix) 40 mg PO DAILY MARIANA Stop: 02/04/19 08:59 Last Admin: 01/10/19 07:53 Dose: 40 mg Documented by: Potassium Chloride (Klor-Con M20) 20 meq PO QAM MARIANA Stop: 02/06/19 08:59 Last Admin: 01/10/19 07:53 Dose: 20 meq Documented by: Tramadol HCl (Ultram) 25 mg PO Q4H PRN PRN Reason: Pain Stop: 02/04/19 05:28 Trimethoprim/Sulfamethoxazole (Septra 400/80mg Tab) 3 tab PO Q6 MARIANA; Protocol Stop: 01/13/19 08:59 Last Admin: 01/10/19 12:36 Dose: 3 tab Documented by:
[2019-01-10] MEDS: FOLIC ACID 1 MG TAB PO SCH (21:22)
[2019-01-11] MEDS: SULFA/TRIMETH 400/80MG TAB PO SCH ×4 (00:06→17:55)
[2019-01-11] MEDS: MoRPHine SULFATE 2 MG/ML CARP IV PRN ×2 (00:58→05:24)
[2019-01-11] MEDS: HEPARIN 100 UNIT/ML 5ML FLUSH FLUSH PRN ×3 (00:58→06:04)
[2019-01-11] MEDS: IPRATROPIUM BROMIDE NEB SOLN 0.02% 2.5 ML VIAL INH SCH ×4 (01:02→19:03)
[2019-01-11] MEDS: LEVALBUTEROL 1.25MG/0.5ML NEB INH SCH ×4 (01:02→19:03)
[2019-01-11 05:43] LABS: Basophils # (auto) 0.01 K/uL (0-0.2); Basophils % (auto) 0.1 %; Eosinophils # (auto) 0.32 K/uL (0-0.5); Eosinophils % (auto) 3.2 %; Hematocrit (blood only) 32.9 % (37-47); Hemoglobin 10.1 g/dL (12.0-16.0); Immature Granulocytes # (auto) 0.03 K/uL (0.00-0.02); Immature Granulocytes % (auto) 0.3 %; Lymphocytes # (auto) 1.62 K/uL (1.2-3.4); Lymphocytes % (auto) 16.2 %; Mean Corpuscular Hemoglobin 26.3 pg (25-34); Mean Corpuscular Hgb Conc 30.7 g/dL (32-36); Mean Corpuscular Volume 85.7 fL (80-100); Mean Platelet Volume 8.5 fL (7.4-10.4); Neutrophils # (auto) 7.53 K/uL (1.4-6.5); Neutrophils % (auto) 75.2 %; Platelet Count 275 K/uL (130-400); RDW Coefficient of Variation 16.2 % (11.5-14.5); Red Blood Count 3.84 M/uL (4.2-5.4); White Blood Count 10.01 K/uL (4.8-10.8)
[2019-01-11 06:03] LABS: BUN Creatinine Ratio 22.3 (10-20); Creatinine Clr Calc Pharmacy 55.9 ml/min; Est GFR (African American) 67.5; Est GFR (Non-African American) 58.2; Magnesium 2.3 mg/dl (1.8-2.4); Phosphorus 4.9 mg/dl (2.5-4.9); Potassium 4.8 mmol/L (3.5-5.1)
[2019-01-11] MEDS: PROMETHAZINE HCL 12.5 MG in SODIUM CHLORIDE 0.9% 50 ML IV PRN ×2 (06:03→12:17)
[2019-01-11] MEDS: TOBRAMYCIN SULFATE 300 MG in SYRINGE 0 ML INH SCH ×2 (07:24→19:36)
[2019-01-11] MEDS: INSULIN ASPART 100 UNITS/ML 3 ML PEN SC SCH ×4 (08:44→20:31)
[2019-01-11] MEDS: INSULIN GLARGINE SOLOSTAR 100 UNITS/ML 3 ML PEN SQ SCH (08:44)
[2019-01-11] MEDS: ENOXAPARIN INJ 30 MG/0.3 ML SYR SQ SCH (08:46)
[2019-01-11] MEDS: MULTIVITAMIN TAB PO SCH (08:46)
[2019-01-11] MEDS: CYANOCOBALAMIN 500 MCG TABLET (VITAMIN B-12) PO SCH (08:46)
[2019-01-11] MEDS: PANTOprazole 40 MG TAB PO SCH (08:46)
[2019-01-11] MEDS: MAGNESIUM OXIDE 400 MG TAB PO SCH (08:47)
[2019-01-11] MEDS: POTASSIUM CHLORIDE 20 MEQ TABCR PO SCH (08:48)
[2019-01-11] MEDS: METOPROLOL SUCC 25MG EXT REL TAB PO SCH (08:50)
--- NOTE | 2019-01-11 10:29 | Infectious Disease Consult ---
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 Limited choices but could consider use of IV tigecycline or oral minocycline if treatment required. Will discuss. (2) Bronchiectasis: History of Present Illness Reason for Consultation: Multi-drug resistant respiratory pathogen Attending Physician: Leon Elkins MD History of Present Illness 58-year-old female known to the infectious disease service, with long-standing bronchiectasis and severe COPD, recently hospitalized for severe exacerbation, treated with IV antibiotics and prednisone, who was readmitted on 05 January with 1 to 2 days of progressively worsening cough and shortness of breath. She was treated with tobramycin and Bactrim as previous sputum's had grown chepe notrophomonas. She has improved clinically, but sputum cultures now growing a highly resistant stenotrophomonas, resistant to Bactrim. Patient still short of breath, with significant cough, no hemoptysis, has been afebrile. Blood cultures have been negative. Allergies Allergy/AdvReac Type Severity Reaction Status Date / Time albuterol AdvReac Mild CHEST Verified 01/05/19 00:47 PAIN, LEVALBUTEROL OK oxycodone AdvReac Mild CAUSES Verified 01/05/19 00:47 DEPRESSION Home Medications Home Medications Medication Instructions Recorded Confirmed Type Caltrate 600-D Plus Minerals 1 tab PO BID 12/17/17 01/05/19 History Gammagard Liquid 0 mg/kg IV MONTHLY 12/17/17 01/05/19 History Probiotic 1 tab PO QPM 12/17/17 01/05/19 History acetaminophen 1,000 mg PO Q6H PRN 12/17/17 01/05/19 History ascorbic acid (vitamin C) 250 mg PO DAILY 12/17/17 01/05/19 History cyanocobalamin (vitamin B-12) 1,000 mcg PO DAILY 12/17/17 01/05/19 History folic acid 1 mg PO QPM 12/17/17 01/05/19 History guaifenesin 1,200 mg PO Q12H PRN 12/17/17 01/05/19 History hydrocortisone 10 mg PO QAM 12/17/17 01/05/19 History magnesium oxide 400 mg PO DAILY 12/17/17 01/05/19 History multivitamin 1 tab PO DAILY 12/17/17 01/05/19 History pantoprazole 40 mg PO DAILY 12/17/17 01/05/19 History Breo Ellipta 1 inh INHALATION DAILY 04/21/18 01/05/19 History Novolog Flexpen U-100 Insulin See Rx Instructions .ROUTE .COMPLEX 04/21/18 01/05/19 History metoprolol succinate 50 mg PO DAILY 11/14/18 01/05/19 History albuterol sulfate HFA 90 2 puff INHALATION Q4 PRN gm 11/24/18 01/05/19 History mcg/actuation aerosol inhaler ipratropium bromide 0.02 % 2.5 ml INH Q4H PRN #150 ml 11/24/18 01/05/19 Rx solution for inhalation levalbuterol 1.25 mg/3 mL solution 1.25 mg INH Q4H PRN #90 ml 11/24/18 01/05/19 Rx for nebulization silver sulfadiazine 1 % topical 1 appln TOP BID 12/15/18 01/05/19 History cream tobramycin 300 mg/5 mL in 0.225 % 300 mg INH BID 28 Days #280 ml 12/26/18 01/05/19 Rx sodium chloride for nebulization Patient History Medical History Arrhythmia Mediastinal adenopathy Prolonged Q-T interval on ECG Acute and chronic respiratory failure Acute bronchitis (Acute) CVID (common variable immunodeficiency) (Chronic) Receives monthly IVIG infusions COPD (chronic obstructive pulmonary disease) (Chronic) Oxygen dependent (Chronic) "2L-4L" On 04/29/17 18:15 Maine Martínez wrote "4L" On 04/08/15 18:56 Adriana Morales wrote "2L" Steroid-induced diabetes (Chronic) BILL (obstructive sleep apnea) (Chronic) Depression (Chronic) Mild pulmonary hypertension (Chronic) 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) Anxiety (Chronic) Bronchiectasis (Chronic) GERD (gastroesophageal reflux disease) (Chronic) Hypogammaglobulinemia (Chronic) Hyperlipidemia (Chronic) Chronic respiratory failure (Chronic) Pneumomediastinum (Resolved) Pneumothorax (Resolved) Depression Hypogammaglobulinemia Surgical History H/O atrial septal defect repair (Resolved) H/O total shoulder replacement (Resolved) H/O: hysterectomy (Resolved) History of hysterectomy (Resolved) History of left hip replacement (Resolved) History of myringotomy (Resolved) History of right hip replacement (Resolved) Hx of appendectomy (Resolved) Hx of cholecystectomy (Resolved) Hx of tympanostomy tubes (Resolved) S/P bronchoscopy (Resolved) S/P section (Resolved) S/P sinus surgery (Resolved) S/P tonsillectomy and adenoidectomy (Resolved) Family History Father Aneurysm of abdominal aorta Mother Cervical ca Cancer Social History Preferred Language: Vietnamese Communication Ability: Effective Knot Borer Required: No Beliefs That Will Affect Care: None marital status: Current Living Situation: Alone current occupational status: disabled Other Information That Helps Us Care for You: No Feels Safe at Home: Yes Safety Concerns: Feels Safe At This Time Smoking Status: Never smoker Second Hand Exposure: No ; Hx Alcohol Use: No Hx Substance Use: No Review of Systems Review of Systems: All systems reviewed & are unremarkable except as noted in HPI & below Physical Exam Constitutional: WD/WN, vitals as above + acute distress Eyes: PERRL, conjunctivae normal, anicteric sclerae ENMT: external ear and nose normal, oropharynx normal Neck: trachea midline, no thyromegaly neck nontender Respiratory: normal percussion; no respiratory distress and does not use accessory muscles Auscultation: + rhonchi and + wheezes Cardiovascular: Rate/Rhythm: regular rate and regular rhythm Heart Sounds: normal S1 and normal S2; no gallop, no murmur and no cardiac rub Vessels: normal peripheral pulses; no JVD Gastrointestinal (Abdomen): normal bowel sounds, soft, nontender, no hepatosplenomegaly Musculoskeletal: no cyanosis or clubbing, extremities motor strength 5/5 Spine: thoracic spine normal to inspection and lumbar spine normal to inspection; no cervical spinal tenderness Skin: no rashes, warm and dry normal turgor; no lesions Neurologic: patellar DTR's 2+ bilat, sensation intact no focal motor deficits Psychiatric: A+Ox3, euthymic affect Orientation: cooperative Lymphatic: no cervical or axillary lymphadenopathy no inguinal lymphadenopathy Results & Data Vital Signs (Past 12 Hours) Vital Signs Temp Pulse Pulse Resp BP BP Pulse Ox 01/11/19 07:52 36.4 C L 90 24 107/71 93 01/11/19 07:11 86 18 80 L 01/11/19 02:50 36.7 C 85 19 101/50 L 94 01/11/19 01:02 91 H 20 96 01/10/19 23:14 36.5 C 96 H 20 121/73 93 Laboratory Results Short CBC 01/11/19 Range/Units 05:27 WBC 10.01 (4.8-10.8) K/uL Hgb 10.1 L (12.0-16.0) g/dL Hct 32.9 L (37-47) % Plt Count 275 (130-400) K/uL BMP 01/11/19 05:27 Sodium 131 L Potassium 4.8 Chloride 88 L Carbon Dioxide 37 H BUN 24 H Creatinine 1.06 Glucose 79 Calcium 9.0 Diagnostic Findings Microbiology 01/05/19 08:45 Sputum, Expectorated Gram Stain - Final 01/05/19 08:45 Sputum, Expectorated Sputum Culture - Final Stenotrophomonas maltophilia 01/05/19 00:56 Blood Aerobic Blood Culture - Final No growth in Aerobic bottle after 5 days. 01/05/19 00:56 Blood Anaerobic Blood Culture - Final No growth in Anaerobic bottle after 5 days. 01/05/19 03:42 Blood Aerobic Blood Culture - Final No growth in Aerobic bottle after 5 days. 01/05/19 03:42 Blood Anaerobic Blood Culture - Final XR chest 1V portable HISTORY: Shortness of breath. COMPARISON: Chest 01/05/2019. FINDINGS: No pneumothorax. Right jugular Port-A-Cath terminates at the SVC. The heart is stable in size. There are poststernotomy changes. Diffuse interstitial opacities and nodular densities persist. Left humeral head avascular necrosis is again noted. IMPRESSION: No change in the reticulonodular interstitial changes. Electronically signed by: Troy Collier M.D. 01/06/2019 7:56 AM PG Care Time/CCT Total # of Minutes Spent Total Time Spent with Patient: Total time spent is greater than 50% in coordination of care (as documented) at patient's floor/unit and/or counseling patient: (1) Bronchiectasis Bronchiectasis type: uncomplicated Qualified Code(s): J47.9 - Bronchiectasis, uncomplicated
[2019-01-11] MEDS: ACETAMINOPHEN 325 MG TAB PO PRN (15:46)
--- NOTE | 2019-01-11 16:44 | Pulmonology Progress Note ---
Date of Service January 11, 2019 Assessment & Plan (1) Bronchiectasis: Continue with bronchodilator therapy. Continue with Mucomyst. Taper prednisone over next 3 days. Patient is clinically doing a little bit better. Continue with inhaled tobramycin. Chest PT with vest. 01/05/19 08:45 Sputum, Expectorated Sputum Culture - Final Stenotrophomonas maltophilia Patient has chronic infection with stenotrophomonas maltophilia, which is now resistant to Bactrim, levofloxacin and cefepime. Second line therapy for this bacteria is minocycline, tigecycline and colistin Recommend ID consultation and input. Minocycline 100 mg twice daily could be tried. No further recommendations from pulmonary perspective. Recall if necessary. Recommend discontinuing Bactrim. (Hyponatremia and hypochloremia is also likely from Bactrim.) Bronchiectasis type: uncomplicated Qualified Code(s): J47.9 - Bronchiectasis, uncomplicated (2) Acute and chronic respiratory failure: Continue with O2 supplementation to keep saturation between 88 to 92%. (3) Acute exacerbation of bronchiectasis: Recommend discontinuing antibiotic. Mucolytic and CoughAssist with chest vest. (4) CVID (common variable immunodeficiency): (5) BILL (obstructive sleep apnea): Continue with BiPAP nightly and as needed shortness of breath. Patient is on trilogy at home. (6) Mild pulmonary hypertension: Subjective Patient seen and examined at bedside. Feeling better. in the emergency room denies any chest pain, no headache, no nausea, no v omiting. Cough is decreased in intensity. Review of Systems Review of Systems: All systems reviewed & are unremarkable except as noted in HPI & below Physical Exam Physical Exam: Constitutional: No acute distress HEENT: EOMI, PERRLA Respiratory system: Decreased air entry bilaterally, diffuse rhonchi, positive bilateral crackles, no wheeze CVS: S1-S2 positive, no murmurs or gallops, tachycardia Abdomen: Soft, nontender, nondistended, positive bowel sounds x4 Extremities: +2 pulses bilaterally radialis/ dorsalis pedis, no edema, no cyanosis Neuro: Awake alert oriented x3 Psych: Normal mood and affect G/U: No Miner Lymphatic: no cervical or axillary lymphadenopathy Results & Data Vital Signs (Past 12 Hours) Vital Signs Temp Pulse Pulse Pulse Resp BP Pulse Ox 01/11/19 15:38 36.7 C 86 18 107/71 98 10/03/19 13:06 93 H 16 93 01/11/19 12:19 36.5 C 90 22 104/71 94 01/11/19 08:00 97 H 01/11/19 07:52 36.4 C L 90 24 107/71 93 01/11/19 07:11 86 18 80 L Laboratory Results Microbiology 01/05/19 08:45 Sputum, Expectorated Gram Stain - Final 01/05/19 08:45 Sputum, Expectorated Sputum Culture - Final Stenotrophomonas maltophilia 01/11/19 05:27 01/11/19 05:27 PG Care Time/CCT Total # of Minutes Spent Total Time Spent with Patient: Total time spent is greater than 50% in coordination of care (as documented) at patient's floor/unit and/or counseling patient:
[2019-01-11] MEDS: FOLIC ACID 1 MG TAB PO SCH (20:31)
[2019-01-12] MEDS: ACETAMINOPHEN 325 MG TAB PO PRN ×2 (00:18→12:37)
[2019-01-12] MEDS: SULFA/TRIMETH 400/80MG TAB PO SCH ×2 (00:19→06:07)
[2019-01-12] MEDS: PROMETHAZINE HCL 12.5 MG in SODIUM CHLORIDE 0.9% 50 ML IV PRN ×2 (01:15→14:22)
[2019-01-12] MEDS: IPRATROPIUM BROMIDE NEB SOLN 0.02% 2.5 ML VIAL INH SCH ×4 (01:26→19:33)
[2019-01-12] MEDS: LEVALBUTEROL 1.25MG/0.5ML NEB INH SCH ×4 (01:26→19:33)
[2019-01-12] MEDS: TOBRAMYCIN SULFATE 300 MG in SYRINGE 0 ML INH SCH ×2 (07:40→19:33)
[2019-01-12] MEDS: INSULIN ASPART 100 UNITS/ML 3 ML PEN SC SCH ×4 (09:15→20:56)
[2019-01-12] MEDS: INSULIN GLARGINE SOLOSTAR 100 UNITS/ML 3 ML PEN SQ SCH (09:16)
[2019-01-12] MEDS: PANTOprazole 40 MG TAB PO SCH (09:17)
[2019-01-12] MEDS: METOPROLOL SUCC 25MG EXT REL TAB PO SCH (09:17)
[2019-01-12] MEDS: MULTIVITAMIN TAB PO SCH (09:17)
[2019-01-12] MEDS: CYANOCOBALAMIN 500 MCG TABLET (VITAMIN B-12) PO SCH (09:18)
[2019-01-12] MEDS: POTASSIUM CHLORIDE 20 MEQ TABCR PO SCH (09:18)
[2019-01-12] MEDS: MAGNESIUM OXIDE 400 MG TAB PO SCH (09:18)
[2019-01-12] MEDS: ENOXAPARIN INJ 30 MG/0.3 ML SYR SQ SCH (09:20)
--- NOTE | 2019-01-12 15:35 | Hospitalist Progress Note ---
Date of Service January 12, 2019 Assessment & Plan (1) Acute hypoxemic respiratory failure: Secondary to COPD exacerbation and complicated by bronchiectasis Gram negative pneumonia CTA chest showed no significant change in the extensive acute on chronic lung disease as described above. No evidence of acute pulmonary thromboembolic disease. Repeat CXR showed diffuse interstitial opacities and nodular densities persist Sputum cx grew gram negative baccilli Appreciate pulmonary input and recommendation Has been on intravenous tobramycin and Bactrim Bactrim intravenously has been discontinued from 01/10 Taper prednisone by 5 mg reducing dose daily as per patient's request Continue oxygen supplement and Neb treatment Clinically minimally improved Will need a few days before she can go home Advised to more ambulation Right-sided chest pain: CTA chest negative for pulmonary embolism. Echo showed LV systolic function is normal to hyperdynamic LV wall motion is otherwise normal with EF 72% Will change lasix from 40mg to 20mg daily in am Denies any more chest pain Mediastinal adenopathy: Noted on current and previous CT, unchanged. Prolonged Q-T interval on ECG: EKG on admission showed QTC of 499 Will avoid medication that increase QTC such as levofloxacin Sertraline on hold Repeat EKG showed QTc 437 Stable Steroid-induced diabetes: BS improved Continue insulin sliding scale Continue lantus to 10 unit Continue monitor BS Hypogammaglobulinemia: Receives immunoglobulin infusions monthly. DVT prophylaxis: SQ enoxaparin/Ambulate as able. Disposition We will get PT and OT evaluation before discharge Has home oxygen and will continue with Subjective 01/10 Patient was seen and examined in telemetry unit She wants to go home She is very short of breath even at rest Denies any chest pain in the palpitation 01/12 The patient was seen and examined in the telemetry unit She remains moderately shortness of breath at rest He keeps on sweating any fever and/or chills Her cough remain productive Review of Systems Review of Systems: All systems reviewed and are unremarkable except as noted. Respiratory: + cough, + dyspnea, + sputum production and + wheezing Cardiovascular: no chest pain Gastrointestinal: no abdominal pain Physical Exam Physical Exam: Sitting on bed with moderate to severe shortness of breath Constitutional: well developed, + acute distress and + ill appearing Eyes: PERRL, conjunctivae normal, anicteric sclerae ENMT: external ear and nose normal, oropharynx normal Neck: trachea midline, no thyromegaly Respiratory: + respiratory distress (Moderate distress at rest) and + labored breathing Auscultation: + diminished lung sounds, + crackles (Bibasal), + rhonchi and + wheezes (Allover) Cardiovascular: Rate/Rhythm: regular rate and regular rhythm Heart Sounds: no murmur Gastrointestinal (Abdomen): Inspection/Auscultation: abdomen normal to inspection Neurologic: moves all extremities; no focal motor deficits Results & Data Vital Signs (Past 12 Hours) Vital Signs Temp Pulse Pulse Pulse Resp BP BP 01/12/19 13:07 80 18 01/12/19 11:41 36.6 C 98 H 18 120/77 01/12/19 07:50 36.5 C 93 H 20 111/71 01/12/19 07:43 80 20 01/12/19 07:39 80 20 01/12/19 07:30 84 01/12/19 04:10 36.7 C 95 H 19 102/57 L Pulse Ox 01/12/19 13:07 96 01/12/19 11:41 96 01/12/19 07:50 96 01/12/19 07:43 94 01/12/19 07:39 94 01/12/19 07:30 01/12/19 04:10 93 Medications Administered Current Inpatient Medications Acetaminophen (Tylenol) 650 mg PO Q4H PRN PRN Reason: Pain or Fever Stop: 02/04/19 05:28 Last Admin: 01/12/19 12:37 Dose: 650 mg Documented by: Cyanocobalamin (Vitamin B-12) 1,000 mcg PO DAILY MARIANA Stop: 02/04/19 08:59 Last Admin: 01/12/19 09:18 Dose: 1,000 mcg Documented by: Dextrose (Dextrose 50%) 25 - 50 ml IV UD PRN; Protocol PRN Reason: Hypoglycemia Protocol Stop: 02/04/19 05:28 Enoxaparin Sodium (Lovenox) 30 mg SQ QAM MARIANA Stop: 02/04/19 08:59 Last Admin: 01/12/19 09:20 Dose: 30 mg Documented by: Folic Acid (Folvite) 1 mg PO QPM MARIANA Stop: 02/04/19 20:59 Last Admin: 01/11/19 20:31 Dose: 1 mg Documented by: Furosemide (Lasix) 20 mg PO QAM MARIANA Stop: 02/09/19 08:59 Glucagon (Glucagen) 1 mg SQ UD PRN; Protocol PRN Reason: Hypoglycemia Protocol Stop: 02/04/19 05:28 Glucose (Glucose 40%) 15 - 30 gm PO UD PRN; Protocol PRN Reason: Hypoglycemia Protocol Stop: 02/04/19 05:28 Glucose (Dex4 Glucose) 4 - 8 tabs PO UD PRN; Protocol PRN Reason: Hypoglycemia Protocol Stop: 02/04/19 05:28 Guaifenesin (Mucinex) 1,200 mg PO Q12H PRN PRN Reason: Congestion Stop: 02/04/19 05:28 Last Admin: 01/06/19 07:28 Dose: 1,200 mg Documented by: Heparin Sodium (Porcine) (Heparin Sod 100 Unit/Ml Flush) 5 ml FLUSH PRN PRN PRN Reason: Flush Stop: 02/05/19 02:59 Last Admin: 01/11/19 06:04 Dose: 5 ml Documented by: Promethazine HCl 12.5 mg/ (Sodium Chloride) 50.5 mls @ 202 mls/hr IV Q6H PRN PRN Reason: Nausea And Vomiting Stop: 02/04/19 05:28 Last Infusion: 01/12/19 14:59 Dose: Infused Documented by: Tobramycin Sulfate 300 mg/ (Syringe) 7.5 mls @ 0.033 mls/min INH BIDR MARIANA Stop: 01/13/19 06:59 Last Admin: 01/12/19 07:40 Dose: 0.033 mls/min Documented by: Insulin Aspart (Novolog Flexpen) 0 units SC ACHS MARIANA Stop: 02/04/19 05:59 Last Admin: 01/12/19 12:40 Dose: Not Given Documented by: Insulin Glargine (Lantus Solostar Pen) 10 units SQ DAILY MARIANA Stop: 02/05/19 08:59 Last Admin: 01/12/19 09:16 Dose: 10 units Documented by: Ipratropium [place] (Atrovent 0.02% 0.5mg/2.5ml) 0.5 mg INH Q6R [facility] Stop: 02/04/19 06:59 Last Admin: 01/12/19 13:04 Dose: 0.5 mg Documented by: Levalbuterol HCl (Xopenex 1.25mg/0.5ml Neb) 1.25 mg INH Q6R MARIANA Stop: 02/04/19 06:59 Last Admin: 01/12/19 13:04 Dose: 1.25 mg Documented by: Magnesium Oxide (Mag-Ox) 400 mg PO DAILY MARIANA Stop: 02/04/19 08:59 Last Admin: 01/12/19 09:18 Dose: 400 mg Documented by: Metoprolol Succinate (Toprol Xl) 25 mg PO DAILY MARIANA Stop: 02/04/19 08:59 Last Admin: 01/12/19 09:17 Dose: 25 mg Documented by: Miscellaneous (Carbohydrates For Hypoglycemia) 15 - 30 gm PO UD PRN PRN Reason: Hypoglycemia Treatment Stop: 02/04/19 05:28 Morphine Sulfate (Morphine Sulfate) 2 mg IV Q4H PRN PRN Reason: Pain Stop: 01/19/19 05:28 Last Admin: 01/11/19 05:24 Dose: 2 mg Documented by: Multivitamins (Multivitamin Tab) 1 tab PO DAILY MARIANA Stop: 02/04/19 08:59 Last Admin: 01/12/19 09:17 Dose: 1 tab Documented by: Nitroglycerin (Nitrostat) 0.4 mg SL PRN PRN PRN Reason: Chest Pain Stop: 02/04/19 17:22 Pantoprazole Sodium (Protonix) 40 mg PO DAILY MARIANA Stop: 02/04/19 08:59 Last Admin: 01/12/19 09:17 Dose: 40 mg Documented by: Potassium Chloride (Klor-Con M20) 20 meq PO QAM MARIANA Stop: 02/06/19 08:59 Last Admin: 01/12/19 09:18 Dose: 20 meq Documented by: Tramadol HCl (Ultram) 25 mg PO Q4H PRN PRN Reason: Pain Stop: 02/04/19 05:28
--- NOTE | 2019-01-12 19:30 | Infectious Disease Progress Nt ---
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 Limited choices but could consider use of IV tigecycline or oral minocycline if treatment required. Will discuss. (2) Bronchiectasis: Subjective Patient seen in follow-up for COPD exacerbation, stenotrophomonas colonization. No acute distress. No adverse events overnight. States that the shortness of breath is improved. No chest pain, no headache, no nausea, no vomiting. States she feels generalized lethargic. Review of Systems Review of Systems: All systems reviewed & are unremarkable except as noted in HPI & below Physical Exam Constitutional: WD/WN, vitals as above comfortable; no acute distress Eyes: PERRL, conjunctivae normal, anicteric sclerae ENMT: external ear and nose normal, oropharynx normal Neck: trachea midline, no thyromegaly neck nontender Respiratory: no respiratory distress and does not use accessory muscles Auscultation: + diminished lung sounds and + rhonchi Cardiovascular: Rate/Rhythm: regular rate and regular rhythm Heart Sounds: normal S1 and normal S2; no gallop, no murmur and no cardiac rub Vessels: normal peripheral pulses; no JVD Gastrointestinal (Abdomen): normal bowel sounds, soft, nontender, no hepatosplenomegaly Musculoskeletal: no cyanosis or clubbing, extremities motor strength 5/5 Spine: thoracic spine normal to inspection and lumbar spine normal to inspection; no cervical spinal tenderness Skin: no rashes, warm and dry normal turgor; no lesions Neurologic: patellar DTR's 2+ bilat, sensation intact no focal motor deficits Psychiatric: A+Ox3, euthymic affect Orientation: cooperative Lymphatic: no cervical or axillary lymphadenopathy no inguinal lymphadenopathy Results & Data Vital Signs (Past 12 Hours) Vital Signs Temp Pulse Pulse Pulse Resp BP BP 01/12/19 19:00 36.4 C L 106 H 23 112/72 01/12/19 15:44 36.8 C 106 H 22 96/58 L 01/12/19 14:20 92 H 01/12/19 13:07 80 18 01/12/19 12:36 88 01/12/19 11:41 36.6 C 98 H 18 120/77 01/12/19 07:50 36.5 C 93 H 20 111/71 01/12/19 07:43 80 20 01/12/19 07:39 80 20 01/12/19 07:30 84 Pulse Ox 01/12/19 19:00 92 01/12/19 15:44 92 01/12/19 14:20 01/12/19 13:07 96 01/12/19 12:36 01/12/19 11:41 96 01/12/19 07:50 96 01/12/19 07:43 94 01/12/19 07:39 94 01/12/19 07:30 Laboratory Results Laboratory Results - last 48 hr 01/10/19 01/11/19 01/11/19 20:11 05:27 05:27 WBC 10.01 RBC 3.84 L Hgb 10.1 L Hct 32.9 L MCV 85.7 MCH 26.3 MCHC 30.7 L RDW Std Deviation 49.0 H RDW Coeff of Adan 16.2 H Plt Count 275 MPV 8.5 Immature Gran % (Auto) 0.3 Neut % (Auto) 75.2 Lymph % (Auto) 16.2 Jackson % (Auto) 5.0 Eos % (Auto) 3.2 Baso % (Auto) 0.1 Immature Gran # (Auto) 0.03 H Neut # (Auto) 7.53 H Lymph # (Auto) 1.62 Jackson # (Auto) 0.50 Eos # (Auto) 0.32 Baso # (Auto) 0.01 Sodium 131 L Potassium 4.8 Chloride 88 L Carbon Dioxide 37 H Anion Gap 6.0 BUN 24 H Creatinine 1.06 Est Cr Clr Drug Dosing 55.9 Est GFR ( Amer) 67.5 Est GFR (Non-Af Amer) 58.2 BUN/Creatinine Ratio 22.3 H Glucose 79 POC Glucose 114 H Calcium 9.0 Phosphorus 4.9 Magnesium 2.3 01/11/19 01/11/19 01/11/19 07:26 11:48 16:17 WBC RBC Hgb Hct MCV MCH MCHC RDW Std Deviation RDW Coeff of Adan Plt Count MPV Immature Gran % (Auto) Neut % (Auto) Lymph % (Auto) Jackson % (Auto) Eos % (Auto) Baso % (Auto) Immature Gran # (Auto) Neut # (Auto) Lymph # (Auto) Jackson # (Auto) Eos # (Auto) Baso # (Auto) Sodium Potassium Chloride Carbon Dioxide Anion Gap BUN Creatinine Est Cr Clr Drug Dosing Est GFR ( Amer) Est GFR (Non-Af Amer) BUN/Creatinine Ratio Glucose POC Glucose 93 112 H 96 Calcium Phosphorus Magnesium 01/11/19 01/12/19 01/12/19 20:30 07:20 11:21 WBC RBC Hgb Hct MCV MCH MCHC RDW Std Deviation RDW Coeff of Adan Plt Count MPV Immature Gran % (Auto) Neut % (Auto) Lymph % (Auto) Jackson % (Auto) Eos % (Auto) Baso % (Auto) Immature Gran # (Auto) Neut # (Auto) Lymph # (Auto) Jackson # (Auto) Eos # (Auto) Baso # (Auto) Sodium Potassium Chloride Carbon Dioxide Anion Gap BUN Creatinine Est Cr Clr Drug Dosing Est GFR ( Amer) Est GFR (Non-Af Amer) BUN/Creatinine Ratio Glucose POC Glucose 124 H 95 132 H Calcium Phosphorus Magnesium 01/12/19 16:18 WBC RBC Hgb Hct MCV MCH MCHC RDW Std Deviation RDW Coeff of Aadn Plt Count MPV Immature Gran % (Auto) Neut % (Auto) Lymph % (Auto) Jackson % (Auto) Eos % (Auto) Baso % (Auto) Immature Gran # (Auto) Neut # (Auto) Lymph # (Auto) Jackson # (Auto) Eos # (Auto) Baso # (Auto) Sodium Potassium Chloride Carbon Dioxide Anion Gap BUN Creatinine Est Cr Clr Drug Dosing Est GFR ( Amer) Est GFR (Non-Af Amer) BUN/Creatinine Ratio Glucose POC Glucose 201 H Calcium Phosphorus Magnesium Diagnostic Findings Microbiology 01/05/19 08:45 Sputum, Expectorated Gram Stain - Final 01/05/19 08:45 Sputum, Expectorated Sputum Culture - Final Stenotrophomonas maltophilia 01/05/19 00:56 Blood Aerobic Blood Culture - Final No growth in Aerobic bottle after 5 days. 01/05/19 00:56 Blood Anaerobic Blood Culture - Final No growth in Anaerobic bottle after 5 days. 01/05/19 03:42 Blood Aerobic Blood Culture - Final No growth in Aerobic bottle after 5 days. 01/05/19 03:42 Blood Anaerobic Blood Culture - Final PG Care Time/CCT Total # of Minutes Spent Total Time Spent with Patient: Total time spent is greater than 50% in coordination of care (as documented) at patient's floor/unit and/or counseling patient: (1) Bronchiectasis Bronchiectasis type: uncomplicated Qualified Code(s): J47.9 - Bronchiectasis, uncomplicated
[2019-01-12] MEDS: FOLIC ACID 1 MG TAB PO SCH (20:53)
[2019-01-13] MEDS: LEVALBUTEROL 1.25MG/0.5ML NEB INH SCH ×4 (01:22→19:23)
[2019-01-13] MEDS: IPRATROPIUM BROMIDE NEB SOLN 0.02% 2.5 ML VIAL INH SCH ×4 (01:22→19:23)
[2019-01-13] MEDS: INSULIN GLARGINE SOLOSTAR 100 UNITS/ML 3 ML PEN SQ SCH (07:47)
[2019-01-13] MEDS: INSULIN ASPART 100 UNITS/ML 3 ML PEN SC SCH ×4 (07:47→21:37)
[2019-01-13] MEDS: CYANOCOBALAMIN 500 MCG TABLET (VITAMIN B-12) PO SCH (07:54)
[2019-01-13] MEDS: POTASSIUM CHLORIDE 20 MEQ TABCR PO SCH (07:54)
[2019-01-13] MEDS: PANTOprazole 40 MG TAB PO SCH (07:54)
[2019-01-13] MEDS: METOPROLOL SUCC 25MG EXT REL TAB PO SCH (07:54)
[2019-01-13] MEDS: MULTIVITAMIN TAB PO SCH (07:54)
[2019-01-13] MEDS: MAGNESIUM OXIDE 400 MG TAB PO SCH (07:54)
[2019-01-13] MEDS: ENOXAPARIN INJ 30 MG/0.3 ML SYR SQ SCH (07:55)
--- NOTE | 2019-01-13 10:40 | Hospitalist Progress Note ---
Date of Service January 13, 2019 Assessment & Plan (1) Acute hypoxemic respiratory failure: Secondary to COPD exacerbation and complicated by bronchiectasis Gram negative pneumonia CTA chest showed no significant change in the extensive acute on chronic lung disease as described above. No evidence of acute pulmonary thromboembolic disease. Repeat CXR showed diffuse interstitial opacities and nodular densities persist Sputum cx grew gram negative baccilli Appreciate pulmonary input and recommendation Has been on intravenous tobramycin and Bactrim Bactrim intravenously has been discontinued from 01/10 Taper prednisone by 5 mg reducing dose daily as per patient's request Continue oxygen supplement and Neb treatment Clinically much better today Plan to discharge home tomorrow following PT and OT evaluation Sputum is growing stenotrophomonas maltophilia That he is resistant to multiple antibiotics ID consulted for that Recommended minocycline 100 mg twice daily Will prescribe minocycline for about 14 days in total as an outpatient Right-sided chest pain: CTA chest negative for pulmonary embolism. Echo showed LV systolic function is normal to hyperdynamic LV wall motion is otherwise normal with EF 72% Will change lasix from 40mg to 20mg daily in am Denies any more chest pain Mediastinal adenopathy: Noted on current and previous CT, unchanged. Prolonged Q-T interval on ECG: EKG on admission showed QTC of 499 Will avoid medication that increase QTC such as levofloxacin Sertraline on hold Repeat EKG showed QTc 437 Stable Steroid-induced diabetes: BS improved Continue insulin sliding scale Continue lantus to 10 unit Continue monitor BS Hypogammaglobulinemia: Receives immunoglobulin infusions monthly. DVT prophylaxis: SQ enoxaparin/Ambulate as able. Disposition We will get PT and OT evaluation before discharge Has home oxygen and will continue with that Advised more ambulation Likely discharge tomorrow Subjective 01/10 Patient was seen and examined in telemetry unit She wants to go home She is very short of breath even at rest Denies any chest pain in the palpitation 01/12 The patient was seen and examined in the telemetry unit She remains moderately shortness of breath at rest He keeps on sweating any fever and/or chills Her cough remain productive 01/13 The patient was seen and examined in telemetry unit She has been doing much better today Does not have any acute shortness of breath at rest Saturating well with nasal cannula oxygen Has been ambulating reasonably well Review of Systems Review of Systems: All systems reviewed and are unremarkable except as noted. Respiratory: + cough, + dyspnea, + sputum production and + wheezing Physical Exam Physical Exam: No apparent distress at rest Constitutional: well developed, + acute distress and + ill appearing Eyes: PERRL, conjunctivae normal, anicteric sclerae ENMT: external ear and nose normal, oropharynx normal Neck: trachea midline, no thyromegaly Respiratory: no respiratory distress and no labored breathing Auscultation: + diminished lung sounds, + crackles (Bibasal), + rhonchi and + wheezes (Allover) Cardiovascular: Rate/Rhythm: regular rate and regular rhythm Heart Sounds: no murmur Gastrointestinal (Abdomen): Inspection/Auscultation: abdomen normal to inspection Neurologic: moves all extremities; no focal motor deficits Results & Data Vital Signs (Past 12 Hours) Vital Signs Temp Pulse Pulse Pulse Resp BP BP 01/13/19 07:52 36.5 C 108 H 22 104/64 01/13/19 07:28 88 01/13/19 07:04 118 H 18 01/13/19 03:22 36.7 C 101 H 20 98/66 L 01/13/19 01:23 101 H 18 01/12/19 23:45 36.4 C L 102 H 22 114/71 Pulse Ox 01/13/19 07:52 92 01/13/19 07:28 01/13/19 07:04 91 01/13/19 03:22 91 01/13/19 01:23 94 01/12/19 23:45 90 Medications Administered Current Inpatient Medications Acetaminophen (Tylenol) 650 mg PO Q4H PRN PRN Reason: Pain or Fever Stop: 02/04/19 05:28 Last Admin: 01/12/19 12:37 Dose: 650 mg Documented by: Cyanocobalamin (Vitamin B-12) 1,000 mcg PO DAILY MARIANA Stop: 02/04/19 08:59 Last Admin: 01/13/19 07:54 Dose: 1,000 mcg Documented by: Dextrose (Dextrose 50%) 25 - 50 ml IV UD PRN; Protocol PRN Reason: Hypoglycemia Protocol Stop: 02/04/19 05:28 Enoxaparin Sodium (Lovenox) 30 mg SQ QAM MARIANA Stop: 02/04/19 08:59 Last Admin: 01/13/19 07:55 Dose: 30 mg Documented by: Folic Acid (Folvite) 1 mg PO QPM MARIANA Stop: 02/04/19 20:59 Last Admin: 01/12/19 20:53 Dose: 1 mg Documented by: Furosemide (Lasix) 20 mg PO QAM MARIANA Stop: 02/09/19 08:59 Glucagon (Glucagen) 1 mg SQ UD PRN; Protocol PRN Reason: Hypoglycemia Protocol Stop: 02/04/19 05:28 Glucose (Glucose 40%) 15 - 30 gm PO UD PRN; Protocol PRN Reason: Hypoglycemia Protocol Stop: 02/04/19 05:28 Glucose (Dex4 Glucose) 4 - 8 tabs PO UD PRN; Protocol PRN Reason: Hypoglycemia Protocol Stop: 02/04/19 05:28 Guaifenesin (Mucinex) 1,200 mg PO Q12H PRN PRN Reason: Congestion Stop: 02/04/19 05:28 Last Admin: 01/06/19 07:28 Dose: 1,200 mg Documented by: Heparin Sodium (Porcine) (Heparin Sod 100 Unit/Ml Flush) 5 ml FLUSH PRN PRN PRN Reason: Flush Stop: 02/05/19 02:59 Last Admin: 01/11/19 06:04 Dose: 5 ml Documented by: Promethazine HCl 12.5 mg/ (Sodium Chloride) 50.5 mls @ 202 mls/hr IV Q6H PRN PRN Reason: Nausea And Vomiting Stop: 02/04/19 05:28 Last Infusion: 01/12/19 14:59 Dose: Infused Documented by: Insulin Aspart (Novolog Flexpen) 0 units SC ACHS MARIANA Stop: 02/04/19 05:59 Last Admin: 01/13/19 07:47 Dose: 4 units Documented by: Insulin Glargine (Lantus Solostar Pen) 10 units SQ DAILY MARIANA Stop: 02/05/19 08:59 Last Admin: 01/13/19 07:47 Dose: 10 units Documented by: Ipratropium [place] (Atrovent 0.02% 0.5mg/2.5ml) 0.5 mg INH Q6R MARIANA Stop: 02/04/19 06:59 Last Admin: 01/13/19 07:04 Dose: 0.5 mg Documented by: Levalbuterol HCl (Xopenex 1.25mg/0.5ml Neb) 1.25 mg INH Q6R MARIANA Stop: 02/04/19 06:59 Last Admin: 01/13/19 07:03 Dose: 1.25 mg Documented by: Magnesium Oxide (Mag-Ox) 400 mg PO DAILY MARIANA Stop: 02/04/19 08:59 Last Admin: 01/13/19 07:54 Dose: 400 mg Documented by: Metoprolol Succinate (Toprol Xl) 25 mg PO DAILY MARIANA Stop: 02/04/19 08:59 Last Admin: 01/13/19 07:54 Dose: 25 mg Documented by: Miscellaneous (Carbohydrates For Hypoglycemia) 15 - 30 gm PO UD PRN PRN Reason: Hypoglycemia Treatment Stop: 02/04/19 05:28 Morphine Sulfate (Morphine Sulfate) 2 mg IV Q4H PRN PRN Reason: Pain Stop: 01/19/19 05:28 Last Admin: 01/11/19 05:24 Dose: 2 mg Documented by: Multivitamins (Multivitamin Tab) 1 tab PO DAILY MARIANA Stop: 02/04/19 08:59 Last Admin: 01/13/19 07:54 Dose: 1 tab Documented by: Nitroglycerin (Nitrostat) 0.4 mg SL PRN PRN PRN Reason: Chest Pain Stop: 02/04/19 17:22 Pantoprazole Sodium (Protonix) 40 mg PO DAILY MARIANA Stop: 02/04/19 08:59 Last Admin: 01/13/19 07:54 Dose: 40 mg Documented by: Potassium Chloride (Klor-Con M20) 20 meq PO QAM MARIANA Stop: 02/06/19 08:59 Last Admin: 01/13/19 07:54 Dose: 20 meq Documented by: Tramadol HCl (Ultram) 25 mg PO Q4H PRN PRN Reason: Pain Stop: 02/04/19 05:28
[2019-01-13] MEDS: FOLIC ACID 1 MG TAB PO SCH (21:33)
[2019-01-14] MEDS: LEVALBUTEROL 1.25MG/0.5ML NEB INH SCH ×3 (00:42→13:21)
[2019-01-14] MEDS: IPRATROPIUM BROMIDE NEB SOLN 0.02% 2.5 ML VIAL INH SCH ×3 (00:42→13:21)
[2019-01-14] MEDS: MAGNESIUM OXIDE 400 MG TAB PO SCH (08:05)
[2019-01-14] MEDS: METOPROLOL SUCC 25MG EXT REL TAB PO SCH (08:05)
[2019-01-14] MEDS: POTASSIUM CHLORIDE 20 MEQ TABCR PO SCH (08:05)
[2019-01-14] MEDS: CYANOCOBALAMIN 500 MCG TABLET (VITAMIN B-12) PO SCH (08:05)
[2019-01-14] MEDS: PANTOprazole 40 MG TAB PO SCH (08:06)
[2019-01-14] MEDS: MULTIVITAMIN TAB PO SCH (08:06)
[2019-01-14] MEDS: ENOXAPARIN INJ 30 MG/0.3 ML SYR SQ SCH (08:06)
[2019-01-14] MEDS: INSULIN ASPART 100 UNITS/ML 3 ML PEN SC SCH ×3 (08:51→17:53)
[2019-01-14] MEDS: INSULIN GLARGINE SOLOSTAR 100 UNITS/ML 3 ML PEN SQ SCH (08:52)
--- NOTE | 2019-01-14 11:21 | Hospitalist Progress Note ---
Date of Service January 14, 2019 Assessment & Plan (1) Acute hypoxemic respiratory failure: Secondary to COPD exacerbation and complicated by bronchiectasis Gram negative pneumonia CTA chest showed no significant change in the extensive acute on chronic lung disease as described above. No evidence of acute pulmonary thromboembolic disease. Repeat CXR showed diffuse interstitial opacities and nodular densities persist Sputum cx grew gram negative baccilli Appreciate pulmonary input and recommendation Has been on intravenous tobramycin and Bactrim Bactrim intravenously has been discontinued from 01/10 Taper prednisone by 5 mg reducing dose daily as per patient's request Continue oxygen supplement and Neb treatment Clinically much better today Plan to discharge home tomorrow following PT and OT evaluation She will be discharged home this afternoon Advised to take care precautions to prevent an attack Sputum is growing stenotrophomonas maltophilia That he is resistant to multiple antibiotics ID consulted for that Recommended minocycline 100 mg twice daily Will prescribe minocycline for about 14 days in total as an outpatient Right-sided chest pain: CTA chest negative for pulmonary embolism. Echo showed LV systolic function is normal to hyperdynamic LV wall motion is otherwise normal with EF 72% Will change lasix from 40mg to 20mg daily in am Denies any more chest pain Mediastinal adenopathy: Noted on current and previous CT, unchanged. Prolonged Q-T interval on ECG: EKG on admission showed QTC of 499 Will avoid medication that increase QTC such as levofloxacin Sertraline on hold Repeat EKG showed QTc 437 Stable Steroid-induced diabetes: BS improved Continue insulin sliding scale Continue lantus to 10 unit Continue monitor BS Will taper prednisone gradually Hypogammaglobulinemia: Receives immunoglobulin infusions monthly. DVT prophylaxis: SQ enoxaparin/Ambulate as able. Disposition We will get PT and OT evaluation before discharge Has home oxygen and will continue with that Advised more ambulation Discharge home this afternoon Subjective 01/10 Patient was seen and examined in telemetry unit She wants to go home She is very short of breath even at rest Denies any chest pain in the palpitation 01/12 The patient was seen and examined in the telemetry unit She remains moderately shortness of breath at rest He keeps on sweating any fever and/or chills Her cough remain productive 01/13 The patient was seen and examined in telemetry unit She has been doing much better today Does not have any acute shortness of breath at rest Saturating well with nasal cannula oxygen Has been ambulating reasonably well 01/14 The patient was seen and examined in medical floor She remains stable with minimal shortness of breath at rest He is willing to go home this afternoon Review of Systems Review of Systems: All systems reviewed and are unremarkable except as noted. Respiratory: + cough, + dyspnea, + sputum production and + wheezing Physical Exam Physical Exam: Remains stable with minimal shortness of breath at rest Constitutional: well developed, + acute distress and + ill appearing Eyes: PERRL, conjunctivae normal, anicteric sclerae ENMT: external ear and nose normal, oropharynx normal Neck: trachea midline, no thyromegaly Respiratory: no respiratory distress and no labored breathing Auscultation: + diminished lung sounds, + crackles (Bibasal), + rhonchi and + wheezes (Minimal wheezing all over) Cardiovascular: Rate/Rhythm: regular rate and regular rhythm Heart Sounds: no murmur Gastrointestinal (Abdomen): Inspection/Auscultation: abdomen normal to inspection Neurologic: moves all extremities; no focal motor deficits Motor/Sensory: no tremor Lymphatic: no cervical or axillary lymphadenopathy Results & Data Vital Signs (Past 12 Hours) Vital Signs Temp Pulse Pulse Resp BP Pulse Ox 01/14/19 07:39 36.4 C L 112 H 18 113/68 91 01/14/19 07:15 106 H 16 91 01/14/19 00:45 118 H 20 90 01/14/19 00:02 36.7 C 117 H 18 120/75 90 Medications Administered Current Inpatient Medications Acetaminophen (Tylenol) 650 mg PO Q4H PRN PRN Reason: Pain or Fever Stop: 02/04/19 05:28 Last Admin: 01/12/19 12:37 Dose: 650 mg Documented by: Cyanocobalamin (Vitamin B-12) 1,000 mcg PO DAILY MARIANA Stop: 02/04/19 08:59 Last Admin: 01/14/19 08:05 Dose: 1,000 mcg Documented by: Dextrose (Dextrose 50%) 25 - 50 ml IV UD PRN; Protocol PRN Reason: Hypoglycemia Protocol Stop: 02/04/19 05:28 Enoxaparin Sodium (Lovenox) 30 mg SQ QAM MARIANA Stop: 02/04/19 08:59 Last Admin: 01/14/19 08:06 Dose: 30 mg Documented by: Folic Acid (Folvite) 1 mg PO QPM MARIANA Stop: 02/04/19 20:59 Last Admin: 01/13/19 21:33 Dose: 1 mg Documented by: Furosemide (Lasix) 20 mg PO QAM MARIANA Stop: 02/09/19 08:59 Last Admin: 01/14/19 08:05 Dose: 20 mg Documented by: Glucagon (Glucagen) 1 mg SQ UD PRN; Protocol PRN Reason: Hypoglycemia Protocol Stop: 02/04/19 05:28 Glucose (Glucose 40%) 15 - 30 gm PO UD PRN; Protocol PRN Reason: Hypoglycemia Protocol Stop: 02/04/19 05:28 Glucose (Dex4 Glucose) 4 - 8 tabs PO UD PRN; Protocol PRN Reason: Hypoglycemia Protocol Stop: 02/04/19 05:28 Guaifenesin (Mucinex) 1,200 mg PO Q12H PRN PRN Reason: Congestion Stop: 02/04/19 05:28 Last Admin: 01/06/19 07:28 Dose: 1,200 mg Documented by: Heparin Sodium (Porcine) (Heparin Sod 100 Unit/Ml Flush) 5 ml FLUSH PRN PRN PRN Reason: Flush Stop: 02/05/19 02:59 Last Admin: 01/11/19 06:04 Dose: 5 ml Documented by: Promethazine HCl 12.5 mg/ (Sodium Chloride) 50.5 mls @ 202 mls/hr IV Q6H PRN PRN Reason: Nausea And Vomiting Stop: 02/04/19 05:28 Last Infusion: 01/12/19 14:59 Dose: Infused Documented by: Insulin Aspart (Novolog Flexpen) 0 units SC ACHS MARIANA Stop: 02/04/19 05:59 Last Admin: 01/14/19 08:51 Dose: 6 units Documented by: Insulin Glargine (Lantus Solostar Pen) 10 units SQ DAILY MARIANA Stop: 02/05/19 08:59 Last Admin: 01/14/19 08:52 Dose: 10 units Documented by: Ipratropium [place] (Atrovent 0.02% 0.5mg/2.5ml) 0.5 mg INH Q6R MARIANA Stop: 02/04/19 06:59 Last Admin: 01/14/19 07:15 Dose: 0.5 mg Documented by: Levalbuterol HCl (Xopenex 1.25mg/0.5ml Neb) 1.25 mg INH Q6R MARIANA Stop: 02/04/19 06:59 Last Admin: 01/14/19 07:15 Dose: 1.25 mg Documented by: Magnesium Oxide (Mag-Ox) 400 mg PO DAILY MARIANA Stop: 02/04/19 08:59 Last Admin: 01/14/19 08:05 Dose: 400 mg Documented by: Metoprolol Succinate (Toprol Xl) 25 mg PO DAILY MARIANA Stop: 02/04/19 08:59 Last Admin: 01/14/19 08:05 Dose: 25 mg Documented by: Miscellaneous (Carbohydrates For Hypoglycemia) 15 - 30 gm PO UD PRN PRN Reason: Hypoglycemia Treatment Stop: 02/04/19 05:28 Morphine Sulfate (Morphine Sulfate) 2 mg IV Q4H PRN PRN Reason: Pain Stop: 01/19/19 05:28 Last Admin: 01/11/19 05:24 Dose: 2 mg Documented by: Multivitamins (Multivitamin Tab) 1 tab PO DAILY MARIANA Stop: 02/04/19 08:59 Last Admin: 01/14/19 08:06 Dose: 1 tab Documented by: Nitroglycerin (Nitrostat) 0.4 mg SL PRN PRN PRN Reason: Chest Pain Stop: 02/04/19 17:22 Pantoprazole Sodium (Protonix) 40 mg PO DAILY MARIANA Stop: 02/04/19 08:59 Last Admin: 01/14/19 08:06 Dose: 40 mg Documented by: Potassium Chloride (Klor-Con M20) 20 meq PO QAM MARIANA Stop: 02/06/19 08:59 Last Admin: 01/14/19 08:05 Dose: 20 meq Documented by: Tramadol HCl (Ultram) 25 mg PO Q4H PRN PRN Reason: Pain Stop: 02/04/19 05:28
--- NOTE | 2019-01-15 07:24 | Discharge Summary ---
Date of Service January 15, 2019 Admission HPI Per Admitting Provider History obtained from patient, family, and records. Medical history is significant for chronic respiratory failure secondary to steroid dependent COPD/bronchiectasis on home O2, pulmonary hypertension as per records, HTN, DM2, insulin requiring, chronic anemia (baseline hemoglobin of 9-10), history of ASD repair, hx CVI,Hypogammaglobulinemia, avascular necrosis of the right hip sp surgery Recent confinement 3 weeks ago for acute on chronic respiratory failure secondary to COPD/bronchiectasis exacerbation. Patient discharged on cefepime/tobramycin/prednisone Rx. Patient completed steroid Rx about 2 days ago. Yesterday patient noted with thinning shortness of breath, junky cough symptoms. Achy left-sided chest pain with some relief with nitroglycerin given at the ER. Denies aspiration. Patient received Ceftriaxone and Azithromycin at the ER. Medical History as above Surgical History : Breast lesion excision, section, eardrum surgery, vascular device placement, hysterectomy, shoulder surgery, tonsillectomy/adenectomy, [place], sinus surgery Family History : AAA, asthma, cervical cancer, brain cancer, diabetes, COPD, lymphoma Personal/Social history : Non-smoker, no EtOH intake, disabled Admission Exam Per Admitting Provider Physical Exam: GENERAL: uncomfortable, respiratory distress SKIN: Pallor , warm HEENT: Bespectacled, pale palpebral conjunctivae, chronic ptosis, dry buccal mucosa NECK : Supple, short neck, no tenderness CHEST : kyphotic, bilateral rhonchi/crackles, expiratory wheezes, no tenderness HEART : RRR, no obvious murmurs ABDOMEN: Some distention, nontender EXTREMITIES : Minimal LE swelling/no LE tenderness, no other conspicuous deformities noted NEUROLOGIC : Coherent, no facial asymmetry, no other gross focality Principal Diagnosis Acute hypoxemic respiratory failure, bronchiectasis Discharge Exam Constitutional well developed, + acute distress and + ill appearing Eyes PERRL, conjunctivae normal, anicteric sclerae ENMT external ear and nose normal, oropharynx normal Neck trachea midline, no thyromegaly Respiratory no respiratory distress and no labored breathing Auscultation: + diminished lung sounds, + crackles (Bibasal), + rhonchi and + wheezes (Minimal wheezing all over) Cardiovascular Rate/Rhythm: regular rate and regular rhythm Heart Sounds: no murmur Gastrointestinal (Abdomen) Inspection/Auscultation: abdomen normal to inspection Neurologic moves all extremities; no focal motor deficits Motor/Sensory: no tremor Lymphatic no cervical or axillary lymphadenopathy Discharge Data Allergies Allergy/AdvReac Type Severity Reaction Status Date / Time albuterol AdvReac Mild CHEST Verified 01/05/19 00:47 PAIN, LEVALBUTEROL OK oxycodone AdvReac Mild CAUSES Verified 01/05/19 00:47 DEPRESSION Consultations 01/05/19 02:54 ED Decision to Admit Stat 01/05/19 05:29 Consult Pulmonology Routine 01/11/19 08:39 Consult Infectious Diseases Routine Ordered Studies 01/05/19 04:20 CT angio chest PE protocol Urgent Hospital Course (1) Acute hypoxemic respiratory failure: Secondary to COPD exacerbation and complicated by bronchiectasis Gram negative pneumonia CTA chest showed no significant change in the extensive acute on chronic lung disease as described above. No evidence of acute pulmonary thromboembolic disease. Repeat CXR showed diffuse interstitial opacities and nodular densities persist Sputum cx grew gram negative baccilli Appreciate pulmonary input and recommendation Has been on intravenous tobramycin and Bactrim Bactrim intravenously has been discontinued from 01/10 Taper prednisone by 5 mg reducing dose daily as per patient's request Continue oxygen supplement and Neb treatment Clinically much better today Plan to discharge home tomorrow following PT and OT evaluation She will be discharged home this afternoon Advised to take care precautions to prevent an attack Sputum is growing stenotrophomonas maltophilia That he is resistant to multiple antibiotics ID consulted for that Recommended minocycline 100 mg twice daily Will prescribe minocycline for about 14 days in total as an outpatient Right-sided chest pain: CTA chest negative for pulmonary embolism. Echo showed LV systolic function is normal to hyperdynamic LV wall motion is otherwise normal with EF 72% Will change lasix from 40mg to 20mg daily in am Denies any more chest pain Mediastinal adenopathy: Noted on current and previous CT, unchanged. Prolonged Q-T interval on ECG: EKG on admission showed QTC of 499 Will avoid medication that increase QTC such as levofloxacin Sertraline on hold Repeat EKG showed QTc 437 Stable Steroid-induced diabetes: BS improved Continue insulin sliding scale Continue lantus to 10 unit Continue monitor BS Will taper prednisone gradually Hypogammaglobulinemia: Receives immunoglobulin infusions monthly. DVT prophylaxis: SQ enoxaparin/Ambulate as able. Disposition We will get PT and OT evaluation before discharge Has home oxygen and will continue with that Advised more ambulation Discharge home this afternoon Total Time Total Time Spent Total Time Spent (In Minutes): 35 minutes Total Time Includes: Examination of the Patient, Discharge Planning, Medication Reconciliation and Communication With Other Providers Discharge Plan Discharge Items Patient Disposition: Home - Self-Care Reason For Visit: RESP FAILURE Discharge Diagnosis: Acute hypoxemic respiratory failure, bronchiectasis Condition on Discharge: Fair Activity: Resume your previous activity Non-emergency contact: Primary Care Provider Call non-emergency contact if: you have any medication questions and your sympto ms worsen Follow-up/Referrals: Ivonne Subramanian CRNP [Primary Care Provider] - (Your doctor's office will call with an appointment within 1 week. Keep appointment with your lung doctor) Diet: Carb Consistent or DM2 and Heart Healthy Addtl Attending Provider Instructions: Please take precaution to avoid fall Take extreme precaution to avoid any stimulants causing bronchospasm as advised Pending Studies at Discharge: No Stand-Alone Forms: My [facility]iseri Medications and DC Order Prescriptions: New metoprolol succinate 25 mg Tablet Extended Release 24 Hr 25 mg PO DAILY Qty: 30 RF: 0 furosemide 20 mg Tablet 20 mg PO QAM Qty: 30 RF: 0 potassium chloride [Klor-Con M20] 20 mEq Tablet,Er Particles/Crystals 20 meq PO QAM 30 Days Qty: 30 RF: 0 minocycline 100 mg capsule 100 mg PO BID 14 Days Qty: 28 RF: 0 Continued albuterol sulfate 90 mcg/actuation HFA aerosol inhaler 2 puff inhalation Q4 PRN (Reason: Shortness Of Breath Or Wheezing) RF: 0 ipratropium bromide 0.02 % solution 2.5 ml INH Q4H PRN (Reason: increased cough, shortness of breath or wheezing) Qty: 150 RF: 3 levalbuterol HCl 1.25 mg/3 mL solution for nebulization 1.25 mg INH Q4H PRN (Reason: increased cough, shortness of breath or wheezing) Qty: 90 RF: 3 silver sulfadiazine 1 % cream 1 appln TOP BID RF: 0 Novolog Flexpen U-100 Insulin 100 unit/mL Insulin Pen See Rx Instructions .ROUTE .COMPLEX RF: 0 Breo Ellipta 100-25 mcg/dose Blister With Device 1 inh INHALATION DAILY RF: 0 pantoprazole 40 mg tablet,delayed release (DR/EC) 40 mg PO DAILY RF: 0 hydrocortisone 5 mg tablet 10 mg PO QAM RF: 0 cyanocobalamin (vitamin B-12) 1,000 mcg Tablet 1,000 mcg PO DAILY RF: 0 ascorbic acid (vitamin C) 250 mg Tablet 250 mg PO DAILY RF: 0 Caltrate 600-D Plus Minerals 600 mg calcium- 800 unit-50 mg Tablet 1 tab PO BID RF: 0 multivitamin Tablet 1 tab PO DAILY RF: 0 magnesium oxide 400 mg (241.3 mg magnesium) Tablet 400 mg PO DAILY RF: 0 folic acid 1 mg Tablet 1 mg PO QPM RF: 0 guaifenesin 1,200 mg Tablet Extended Release 12hr 1,200 mg PO Q12H PRN (Reason: Congestion) RF: 0 Probiotic 3 billion cell Tablet,Chewable 1 tab PO QPM RF: 0 Gammagard Liquid 10 % Solution IV MONTHLY RF: 0 acetaminophen 500 mg Tablet 1,000 mg PO Q6H PRN (Reason: Pain) RF: 0 Changed metoprolol succinate 50 mg tablet extended release 24 hr 25 mg PO DAILY Qty: 0 RF: 0 Discontinued tobramycin in 0.225 % NaCl 300 mg/5 mL solution for nebulization 300 mg INH BID 28 Days Qty: 280 RF: 5 Discharge Orders: Discharge Order (Routine); Ordered 01/14/19 Ordered By: Leon Yang/Other Patient Handouts: Lungs How Work, Disease Chronic Lung Oxygen Admission Data Admit Date/Time: 01/05/19 04:23 Attending Provider: Leon Elkins Admit Provider: Devaughn Silverio Primary Care Provider: Ivonne Subramanian Other Providers: Emiliana Calderon ; Devaughn Silverio ; Jorge Lang ; Bradley Adamson Other Interventions: Discharge Summary Assessment (RN) Last Done: 01/14/19 15:47 DC Date/Time DO NOT enter until pt leaves facility: 01/14/19 18:10
--- NOTE | 2019-01-22 06:31 | Coding Query ---
CODING QUERY To promote full compliance with coding requirements relating to patient care, provider participation is requested in all cases of zinc miner uncertainty. Please assist us with the question(s) below: Coding Question(s): Question pertaining to the Gram negative Pneumonia. CTA chest extensive acute on chronic lung disease. Repeat CXR showed difuse interstitial opacities. Patient with acute/chronic respiratory failure , immunocompromised. Please check below the phrase that describes the Gram negative Pneumonia. Thanks for your help! Mane Ling [employer] FIELD TECHNICIAN [facility] Physician's Response(s): ____x The Gram Negative Pneumonia was present on admission The Gram Negative Pneumonia was present AFTER admission Cannot clinically correlate if the Gram Negative Pneumonia was present on admission or after Other/ Please document: Principal Diagnosis: "that condition established after study, to be chiefly responsible for occasioning the admission of the patient to the hospital for care." Co-Existing Principal Diagnosis: "when two or more diagnoses equally meet the criteria for principal diagnosis as determined by the circumstances of admission, diagnostic work up, and/or therapy provided, and the Alphabetic Index, Tabular List, or another coding guideline does not provide sequencing direction, any one of the diagnoses may be sequenced first." "When the physician has documented what appears to be a current diagnosis in the body of the record, but has not included the diagnosis in the final diagnostic statement, the physician should be asked whether the diagnosis should be added." (Source Coding [facility] 2 QTR90. p3-4) ASHLEE
== END 2019-01-14 18:10 | disposition home or self-care (01) | DRG 190 ==
LOC: ED 23:34 → 2S 01-05 04:23 → SUATTDRO 01-05 04:23 → 2S 01-05 04:53 → 3W 01-13 11:22